=== PATIENT | male | born 1930 | race African-American/Black ===

== ENCOUNTER 2016-11-14 11:10 | Inpatient (IN) | payer MEDICARE, MEDICAID ==
[~2016-11-14] VITALS: Ht 185.4 cm; Wt 81.7 kg
[2016-11-14] VITALS (61 sets, daily range): BP systolic 61–123; BP diastolic 44–72
[~2016-11-14 11:10] MED LIST: ACETAMINOPHEN325 M3 GT; AMLODIPINE BESY10 MG GT; ASPIRIN325 MG GT; ATORVASTATIN CA40 MG GT; BACITRACIN ZIN120 GM TP; COLACE100 MG GT; EPOGEN20000 UNI1 SUBQ; FLOMAX0.4 MG GT; HEPARIN SO5000 UNIT2 SUBQ; HYDRALAZINE HCL25 M2 GT; IPRATROPIU0.2 MG/1 M HHN; LEVAQUIN500 MG ORAL; LINEZOLID600 MG PO; LISINOPRIL40 MG GT; LORAZEPAM2 MG/1 M3 IV; LOVENOX10 M4 SUBQ; METOPROLOL TART25 MG GT; MIRALAX17 G2 ORAL; PANTOPRAZOLE SO40 MG IVP; PRO-STAT LIQUID30 ML GT; PROTONIX40 M1 IVP; TEFLARO400 MG IV; VITAMIN C500 M1 GT; ZINC SULFATE220 M1 GT; ZOFRAN 4 MG4 MG/2 ML IV; ZOSYN 3.373.375 GM/1 IVPB; [UNRECOGNIZED DRUG - OTHER]
[2016-11-14] MEDS ORDERED: Succinylcholine 20mg/ml 10ml vial IV ONE (11:30)
[2016-11-14] MEDS ORDERED: Albuterol ud Inhalation HHN ONE ×2 (11:30→12:45)
[2016-11-14] MEDS ORDERED: Ipratropium 0.02% Inh Soln 2.5ml UD HHN ONE (11:30)
[2016-11-14] MEDS ORDERED: Levophed 4mg/4mL Inj IV ONE (11:32)
[2016-11-14] MEDS ORDERED: LORazepam Inj 2mg/ml 1ml ONE (11:44)
[2016-11-14] MEDS ORDERED: Midazolam for drip 50 MG in D5W 90 ML IV SCH (11:45)
[2016-11-14] MEDS ORDERED: LORazepam Inj 2mg/ml 1ml IV ONE (11:45)
[2016-11-14 12:05] LABS: MEAN CORPUSCULAR HGB CONC 28.9 G/DL (32.0-36.0); MEAN CORPUSCULAR VOLUME 83 FL (80-99); MEAN PLATELET VOLUME 6.2 FL (6.5-10.1); PLATELET COUNT 302 K/UL (150-450); RED BLOOD COUNT 3.86 M/UL (4.70-6.10); RED CELL DISTRIBUTION WIDTH 17.5 % (11.6-14.8); WHITE BLOOD COUNT 18.3 K/UL (4.8-10.8)
[2016-11-14 12:08] LABS: INR 1.2 (0.9-1.1); PROTHROMBIN TIME 12.6 SEC (9.30-11.50)
[2016-11-14 12:16] LABS: APPEARANCE,URINE TURBID; KETONES,URINE NEGATIVE (NEGATIVE); LEUKOCYTE ESTERASE ,URINE 3+ (NEGATIVE); NITRITE,URINE POSITIVE (NEGATIVE); PH,URINE 8 (4.5-8.0); PROTEIN,URINE 3+ (NEGATIVE); UROBILINOGEN,URINE NORMAL MG/DL (0.0-1.0)
[2016-11-14 12:16] LABS: ALANINE AMINOTRANSFERASE 44 U/L (3-41); ALBUMIN/GLOBULIN RATIO 0.6 (1.0-2.7); ANION GAP 15 (5-15); ASPARTATE AMINO TRANSFERASE 37 U/L (5-40); CALCIUM 8.5 mg/dL (8.6-10.2); CARBON DIOXIDE 24 mEQ/L (20-30); CHLORIDE 102 mEQ/L (98-107); CREATININE 1.9 mg/dL (0.7-1.2); HEMOLYSIS 33; LIPASE 32 U/L (< 60); SODIUM 141 mEQ/L (135-145); TOTAL PROTEIN 7.2 g/dL (6.6-8.7)
[2016-11-14 12:17] LABS: ABG ALLEN TEST POSITIVE; ABG BASE EXCESS -2.9; ABG PCO2 50.7 mmHg (35.0-45.0)
[2016-11-14 12:18] LABS: TROPONIN I < 0.30 ng/mL (<=0.30)
[2016-11-14 12:28] LABS: CKMB 2.6 ng/mL (< 6.7)
[2016-11-14 12:29] LABS: POTASSIUM 7.1 mEQ/L (3.4-4.9); REFLEX LACTIC ACID YES OR NO YES
[2016-11-14 12:30] LABS: RBC,URINE TNTC /HPF (0 - 0); WBC,URINE 30-40 /HPF (0 - 0)
[2016-11-14 12:31] LABS: BACTERIA,URINE MODERATE /HPF; SQUAMOUS EPITHELIAL CELL,UR FEW /LPF (NONE/OCC)
[2016-11-14] MEDS ORDERED: Cefepime 1gm vial ONE (12:44)
[2016-11-14] MEDS ORDERED: Azithromycin Inj IV ONE (12:44)
[2016-11-14] MEDS ORDERED: Vancomycin 1.5gm/D5W 250ml 325 ML IVPB ONE (12:45)
[2016-11-14] MEDS ORDERED: Azithromycin 500 MG in NS 275 ML IV ONE (12:45)
[2016-11-14] MEDS ORDERED: Sodium Bicarbonate 50ml Carp IV ONE (12:45)
[2016-11-14] MEDS ORDERED: Cefepime HCl 1 GM in NS 55 ML IV ONE (12:45)
[2016-11-14 13:36] LABS: ANISOCYTOSIS 1+; BAND NEUTROPHILS % (MANUAL) 12 % (0-8); BASOPHILS % (MANUAL) 0 % (0-2); EOSINOPHILS % (MANUAL) 1 % (0-3); HYPOCHROMASIA 2+; LYMPHOCYTES % (MANUAL) 4 % (20-45); NEUTROPHILS % (MANUAL) 81 % (45-75); PLATELET ESTIMATE ADEQUATE; PLATELET MORPHOLOGY NORMAL; TOTAL CELLS COUNTED 100
[2016-11-14] MEDS ORDERED: DuoNeb 0.5-3(2.5)mg/3ml neb HHN PRN ×2 (14:00→17:00)
[2016-11-14] MEDS ORDERED: LORazepam Inj 2mg/ml 1ml IV PRN (14:00)
[2016-11-14] MEDS ORDERED: Morphine Sulfate 4mg/ml Inj IVP PRN (14:00)
[2016-11-14] MEDS ORDERED: Miralax 17gm pkt ORAL PRN (14:00)
--- NOTE | 2016-11-14 14:41 | Emergency Room Report ---
History of Present Illness General Chief Complaint: Dyspnea/Respdistress Source: Patient, Medical Record Present Illness HPI Patient presents emergency department today with acute respiratory distress. Patient apparently was going to a specialist to evaluate hematuria when he was noted to be altered and hypotensive. Paramedics brought the patient here for further evaluation. On arrival patient appeared to have evidence of respiratory distress. Patient did not have a gag reflex. Oral airway was in place. Patient require emergent intubation. No further history is available other than what was available from the paramedics. Patient was nonverbal. Symptoms noted to be severe to critical.No other modifying factors. No other associated signs and symptoms. No other complaints were noted. Allergies: Coded Allergies: No Known Allergies (Verified , 01/02/09) Patient History Past Medical History: HTN, CAD, seizures Past Surgical History: CABG, other - g-tube Social History: Denies: alcohol use, drug use, smoking Reviewed Nursing Documentation: PMH: Agreed, PSxH: Agreed Nursing Documentation-PMH Past Medical History: No History, Except For Hx Cardiac Problems: Yes - Hyperlipidemia, NSTEMI, CABG (3 vessel) Hx Hypertension: Yes - long-term use of anticoagulants Hx Gastrointestinal Problems: Yes - dysphagia, G-tube, PUD, GERD Hx Neurological Problems: Yes - Generalized muscle weakness, Vertigo 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, affecting right dominant side Hx Seizures: Yes Review of Systems All Other Systems: limited - poor mental status Physical Exam Vital Signs Date Time Temp Pulse Resp B/P Pulse Ox O2 Delivery O2 Flow Rate FiO2 11/14/16 11:11 98.2 78 36 91 Room Air 11/14/16 11:20 100 11/14/16 11:23 83/55 Sp02 EP Interpretation: reviewed, normal General Appearance: severe distress, cachetic, lethargic Head: atraumatic Eyes: bilateral eye normal inspection ENT: normal pharynx, moist mucus membranes Neck: normal inspection, supple Respiratory: respiratory distress, decreased breath sounds, accessory muscle use, rales Cardiovascular #1: normal inspection, regular rate, rhythm, no edema Gastrointestinal: soft, no mass Genitourinary: normal inspection Musculoskeletal: normal inspection, back normal, normal range of motion Neurologic: alert, responsive Psychiatric: anxious Skin: normal inspection, normal color, no rash Procedures Critical Care Time Critical Care Time Patient had a critical medical condition which untreated could potentially result in life or limb threatening injury. Total critical care time excluding procedures was approximately 45 minutes. Central Line Central Line : Consent: Emergent Central Line Lumen: triple Maximal Sterile Barrier Tech: yes cap, yes mask, yes sterile gown, yes sterile gloves, yes large sterile sheet, yes hand hygiene, yes chlorhexidine prep Central Line Postion: femoral (R) Complications: none Central Line Post Position: sutured, good blood return Attempts: One Patient Tolerated: Well Complications: None Intubation Intubation : Consent: Emergent Intubation Method: orotracheal Tube Size (cm): 8.0 Medications: Succinylcholine Breath Sounds after Intubation: equal Intubation Complications: no complications Post Intubation Xray: Yes Attempts: One Patient Tolerated: Well Complications: None Medical Decision Making Diagnostic Impression: Primary Impression: Respiratory distress Additional Impressions: Hyperkalemia Renal failure Qualified Codes: N17.9 - Acute kidney failure, unspecified Septic shock ER Course Patient presents emergency department today complaining of acute onset of severe respiratory distress and shortness of breath. Differential diagnoses include acute Lexxel abnormality, acute infectious process, sepsis, septic shock , acute coronary syndrome just to name a few.Given the severity of the patient' s presentation I felt this is a highly complex patient. This patient required extensive workup. Patient require emergent admission and control the airway. After which patient received a central line to administer fluids. Patient was given 30 mL per kilogram bolus. Patient's lactic acid level was elevated. Blood cultures obtained and patient was given antibiotics. Patient unfortunately was hypotensive and started on Levophed. A she did improve with fluids and antibiotics as well as vasopressors. Case was discussed with Dr. Luca Guerrier for admission. Labs Test 11/14/16 11:20 11/14/16 11:27 11/14/16 11:40 Urine Color Red Urine Appearance Turbid Urine pH 8 (4.5-8.0) Urine Specific [place] 1.015 (1.005-1.035) Urine Protein 3+ (NEGATIVE) Urine Glucose (UA) Negative (NEGATIVE) Urine Ketones Negative (NEGATIVE) Urine Occult Blood 5+ (NEGATIVE) Urine Nitrite Positive (NEGATIVE) Urine Bilirubin Negative (NEGATIVE) Urine Urobilinogen Normal MG/DL (0.0-1.0) Urine Leukocyte Esterase 3+ (NEGATIVE) Urine RBC Tntc /HPF (0 - 0) Urine WBC 30-40 /HPF (0 - 0) Urine Squamous Epithelial Cells Few /LPF (NONE/OCC) Urine Bacteria Moderate /HPF (NONE) Arterial Blood pH 7.290 (7.350-7.450) Arterial Blood Partial Pressure CO2 50.7 mmHg (35.0-45.0) Arterial Blood Partial Pressure O2 211.0 mmHg (75.0-100.0) Arterial Blood HCO3 23.9 mmol/L (22.0-26.0) Arterial Blood Oxygen Saturation 99.3 % (92.0-98.0) Arterial Blood Base Excess -2.9 Librado Test Positive White Blood Count 18.3 K/UL (4.8-10.8) Red Blood Count 3.86 M/UL (4.70-6.10) Hemoglobin 9.3 G/DL (14.2-18.0) Hematocrit 32.1 % (42.0-52.0) Mean Corpuscular Volume 83 FL (80-99) Mean Corpuscular Hemoglobin 24.0 PG (27.0-31.0) Mean Corpuscular Hemoglobin Concent 28.9 G/DL (32.0-36.0) Red Cell Distribution Width 17.5 % (11.6-14.8) Platelet Count 302 K/UL (150-450) Mean Platelet Volume 6.2 FL (6.5-10.1) Neutrophils (%) (Auto) % (45.0-75.0) Lymphocytes (%) (Auto) % (20.0-45.0) Monocytes (%) (Auto) % (1.0-10.0) Eosinophils (%) (Auto) % (0.0-3.0) Basophils (%) (Auto) % (0.0-2.0) Differential Total Cells Counted 100 Neutrophils % (Manual) 81 % (45-75) Lymphocytes % (Manual) 4 % (20-45) Monocytes % (Manual) 2 % (1-10) Eosinophils % (Manual) 1 % (0-3) Basophils % (Manual) 0 % (0-2) Band Neutrophils 12 % (0-8) Platelet Estimate Adequate Platelet Morphology Normal Hypochromasia 2+ Anisocytosis 1+ Prothrombin Time 12.6 SEC (9.30-11.50) Prothromb Time International Ratio 1.2 (0.9-1.1) Activated Partial Thromboplast Time 29 SEC (23-33) Sodium Level 141 mEQ/L (135-145) Potassium Level 7.1 mEQ/L (3.4-4.9) Chloride Level 102 mEQ/L (98-107) Carbon Dioxide Level 24 mEQ/L (20-30) Anion Gap 15 (5-15) Blood Urea Nitrogen 50 mg/dL (7-23) Creatinine 1.9 mg/dL (0.7-1.2) Estimat Glomerular Filtration Rate mL/min (>60) Glucose Level 98 mg/dL (74-106) Lactic Acid Level 4.90 mmol/L (0.66-2.22) Calcium Level 8.5 mg/dL (8.6-10.2) Total Bilirubin 0.4 mg/dL (0.0-1.2) Aspartate Amino Transf (AST/SGOT) 37 U/L (5-40) Alanine Aminotransferase (ALT/SGPT) 44 U/L (3-41) Alkaline Phosphatase 80 U/L (40-129) Total Creatine Kinase 54 U/L (38-174) Creatine Kinase MB 2.6 ng/mL (< 6.7) Creatine Kinase MB Relative Index 4.8 Troponin I < 0.30 ng/mL (<=0.30) Pro-B-Type Natriuretic Peptide 3738 pg/mL (0-450) Total Protein 7.2 g/dL (6.6-8.7) Albumin 2.7 g/dL (3.5-5.2) Globulin 4.5 g/dL Albumin/Globulin Ratio 0.6 (1.0-2.7) Lipase 32 U/L (< 60) EKG Diagnostic Results Rate: normal Rhythm: NSR ST Segments: other - left bundle branch block Rhythm Strip Diag. Results Rate: 73 Rhythm: NSR, no PVC's, no ectopy Chest X-Ray Diagnostic Results Chest X-Ray Diagnostic Results : Chest X-Ray Ordered: Yes # of Views/Limited/Complete: 1 View EP Interpretation: Yes Interpretation: no consolidation, no effusion, no pneumothorax Indication: Shortness of Breath Impression: Other - Intubated, sternal wire Last Vital Signs Date Time Temp Pulse Resp B/P Pulse Ox O2 Delivery O2 Flow Rate FiO2 11/14/16 13:44 65 38 84/48 100 Mechanical Ventilator 100 11/14/16 11:11 98.2 Status: improved Disposition: ADMITTED INPATIENT Condition: Critical Referrals: STACI CHACON (PCP) JONNY MCCALL M.D. Nov 14, 2016 14:41
--- NOTE | 2016-11-14 15:47 | Diagnostic Imaging Report ---
Indication: COUGH, shortness of breath, post intubation Technique: One view of the chest Comparison: 09/03/2016 Findings: Atelectatic changes versus scarring are seen in both lung bases. The heart size is normal. 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 Endotracheal tube has been placed, tip in good position approximately 6 cm above the selin. 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 Bilateral basilar atelectasis versus scar. No other acute process Post surgical changes, as described
--- NOTE | 2016-11-14 15:50 | Infectious Diseases Prog Note ---
Assessment/Plan Problems: (1) Septic shock Assessment & Plan: complicated with respiratory failure, continue wide spectrum antibiotics, monitor blood and sputum culture (2) Respiratory distress Assessment & Plan: due to the above, S/P intubation, continue mechanical ventilation, monitor ABG, titrate oxygen as needed (3) UTI (urinary tract infection) Assessment & Plan: most likely the source of his sepsis, continue antibiotics, send urine culture, recommend US of the kidney (4) Hyperkalemia Assessment & Plan: suspect due to renal failure, recommend renal consult, for further management (5) Renal failure Assessment & Plan: continue hydration, avoid nephrotoxic meds Subjective Allergies: Coded Allergies: No Known Allergies (Verified , 01/02/09) Objective Vital Signs Last 24 Hour Vital Signs Date Time Temp Pulse Resp B/P Pulse Ox O2 Delivery O2 Flow Rate FiO2 11/14/16 15:06 59 35 100 11/14/16 13:44 65 38 84/48 100 Mechanical Ventilator 100 11/14/16 12:06 36 11/14/16 11:57 80/51 11/14/16 11:52 61/49 11/14/16 11:47 86/59 11/14/16 11:42 92/51 11/14/16 11:35 73 30 Mechanical Ventilator 100 11/14/16 11:35 73 30 100 11/14/16 11:33 85/47 11/14/16 11:23 72 22 83/55 98 Ambu-Bag 11/14/16 11:20 78 36 Room Air 11/14/16 11:20 100 11/14/16 11:11 98.2 78 36 91 Room Air Height (Feet): 6 Height (Inches): 1.00 Weight (Pounds): 189 Laboratory Tests Test 11/14/16 11:20 11/14/16 11:27 11/14/16 11:40 11/14/16 14:06 Urine Color Red Urine Appearance Turbid Urine pH 8 (4.5-8.0) Urine Specific [place] 1.015 (1.005-1.035) Urine Protein 3+ (NEGATIVE) H Urine Glucose (UA) Negative (NEGATIVE) Urine Ketones Negative (NEGATIVE) Urine Occult Blood 5+ (NEGATIVE) H Urine Nitrite Positive (NEGATIVE) H Urine Bilirubin Negative (NEGATIVE) Urine Urobilinogen Normal MG/DL (0.0-1.0) Urine Leukocyte Esterase 3+ (NEGATIVE) H Urine RBC Tntc /HPF (0 - 0) H Urine WBC 30-40 /HPF (0 - 0) H Urine Squamous Epithelial Cells Few /LPF (NONE/OCC) Urine Bacteria Moderate /HPF (NONE) H Arterial Blood pH 7.290 (7.350-7.450) Arterial Blood Partial Pressure CO2 50.7 mmHg (35.0-45.0) H Arterial Blood Partial Pressure O2 211.0 mmHg (75.0-100.0) H Arterial Blood HCO3 23.9 mmol/L (22.0-26.0) Arterial Blood Oxygen Saturation 99.3 % (92.0-98.0) H Arterial Blood Base Excess -2.9 Librado Test Positive White Blood Count 18.3 K/UL (4.8-10.8) H Red Blood Count 3.86 M/UL (4.70-6.10) L Hemoglobin 9.3 G/DL (14.2-18.0) L Hematocrit 32.1 % (42.0-52.0) L Mean Corpuscular Volume 83 FL (80-99) Mean Corpuscular Hemoglobin 24.0 PG (27.0-31.0) L Mean Corpuscular Hemoglobin Concent 28.9 G/DL (32.0-36.0) L Red Cell Distribution Width 17.5 % (11.6-14.8) H Platelet Count 302 K/UL (150-450) Mean Platelet Volume 6.2 FL (6.5-10.1) L Neutrophils (%) (Auto) % (45.0-75.0) Lymphocytes (%) (Auto) % (20.0-45.0) Monocytes (%) (Auto) % (1.0-10.0) Eosinophils (%) (Auto) % (0.0-3.0) Basophils (%) (Auto) % (0.0-2.0) Differential Total Cells Counted 100 Neutrophils % (Manual) 81 % (45-75) H Lymphocytes % (Manual) 4 % (20-45) L Monocytes % (Manual) 2 % (1-10) Eosinophils % (Manual) 1 % (0-3) Basophils % (Manual) 0 % (0-2) Band Neutrophils 12 % (0-8) H Platelet Estimate Adequate Platelet Morphology Normal Hypochromasia 2+ Anisocytosis 1+ Prothrombin Time 12.6 SEC (9.30-11.50) H Prothromb Time International Ratio 1.2 (0.9-1.1) H Activated Partial Thromboplast Time 29 SEC (23-33) Sodium Level 141 mEQ/L (135-145) Potassium Level 7.1 mEQ/L (3.4-4.9) *H Chloride Level 102 mEQ/L (98-107) Carbon Dioxide Level 24 mEQ/L (20-30) Anion Gap 15 (5-15) Blood Urea Nitrogen 50 mg/dL (7-23) H Creatinine 1.9 mg/dL (0.7-1.2) H Estimat Glomerular Filtration Rate mL/min (>60) Glucose Level 98 mg/dL (74-106) Lactic Acid Level 4.90 mmol/L (0.66-2.22) H 4.80 mmol/L (0.66-2.22) H Calcium Level 8.5 mg/dL (8.6-10.2) L Total Bilirubin 0.4 mg/dL (0.0-1.2) Aspartate Amino Transf (AST/SGOT) 37 U/L (5-40) Alanine Aminotransferase (ALT/SGPT) 44 U/L (3-41) H Alkaline Phosphatase 80 U/L (40-129) Total Creatine Kinase 54 U/L (38-174) Creatine Kinase MB 2.6 ng/mL (< 6.7) Creatine Kinase MB Relative Index 4.8 Troponin I < 0.30 ng/mL (<=0.30) Pro-B-Type Natriuretic Peptide 3738 pg/mL (0-450) H Total Protein 7.2 g/dL (6.6-8.7) Albumin 2.7 g/dL (3.5-5.2) L Globulin 4.5 g/dL Albumin/Globulin Ratio 0.6 (1.0-2.7) L Lipase 32 U/L (< 60) Current Medications Medications (Trade) Dose Ordered Sig/Keira Route PRN Reason Start Time Stop Time Status Last Admin Dose Admin Acetaminophen (Tylenol) 650 mg Q4H PRN ORAL fever 11/14/16 18:00 12/14/16 17:59 Albuterol/ Ipratropium (DuoNeb 0.5-3(2.5)mg/3ml) 3 ml EVERY 4 HOURS PRN HHN Shortness of Breath 11/14/16 17:00 11/19/16 16:59 Amikacin Sulfate / Sodium Chloride 110 ml @ 110 mls/hr Q24H IV 11/14/16 23:45 11/21/16 23:44 UNV Ertapenem 1 gm/ Sodium Chloride 55 ml @ 110 mls/hr Q24H IV 11/14/16 23:45 11/19/16 23:44 UNV Heparin Sodium (Porcine) (Heparin 5000 units/ml) 5,000 units EVERY 12 HOURS SUBQ 11/14/16 21:00 12/14/16 20:59 Lorazepam (Ativan 2mg/ml 1ml) 2 mg EVERY 2 HOURS PRN IV For Anxiety 11/14/16 16:00 11/21/16 15:59 Morphine Sulfate (Morphine Sulfate) 4 mg EVERY 4 HOURS PRN IVP Severe Pain (Pain Scale 7-10) 11/14/16 17:00 11/21/16 16:59 Norepinephrine Bitartrate 4 mg/ Dextrose 254 ml @ 0 mls/hr Q24H IV 11/15/16 14:00 12/15/16 13:59 UNV Norepinephrine Bitartrate 8 mg/ Sodium Chloride 250 ml @ 0 mls/hr Q24H IV 11/15/16 11:30 12/15/16 11:29 UNV Ondansetron HCl (Zofran) 4 mg Q6H PRN IVP Nausea & Vomiting 11/14/16 20:00 12/14/16 19:59 UNV Pantoprazole (Protonix) 40 mg DAILY IVP 11/15/16 09:00 12/15/16 08:59 UNV Polyethylene Glycol (Miralax) 17 gm DAILYPRN PRN ORAL Constipation 11/15/16 14:00 12/15/16 13:59 Sodium Chloride 1,000 ml @ 100 mls/hr Q10H IVLG 11/14/16 23:39 12/14/16 23:38 UNV Vancomycin HCl/ Dextrose (Vancomycin/D5W) 275 ml @ 183.3 mls/ hr Q24H IV 11/14/16 23:45 11/19/16 23:44 UNV Julianna Trejo M.D. Nov 14, 2016 15:50
--- NOTE | 2016-11-14 17:46 | History and Physical Report ---
DATE OF ADMISSION: 11/14/2016 TIME SEEN: 3 p.m. CONSULTANTS: 1. Dhiraj Holly M.D. 2. Dr. Pretty. 3. Kuldeep Martin M.D. CHIEF COMPLAINT: Respiratory failure. BRIEF HISTORY: This is an 86-year-old male from [facility], presented with increased weakness, coughing, and shortness of breath, went into respiratory failure, currently intubated and lethargic in the ER. PAST MEDICAL HISTORY: Hypertension and PAN. PAST SURGICAL HISTORY: Heart valve surgery. MEDICATIONS: Includes Protonix, ertapenem, amikacin, vancomycin, heparin, DuoNeb, morphine, Tylenol, MiraLax, Zofran, and Ativan. ALLERGIES: Denies. SOCIAL HISTORY: No smoking. No alcohol. No intravenous drug abuse. FAMILY HISTORY: Noncontributory. REVIEW OF SYSTEMS: Unavailable. PHYSICAL EXAMINATION: GENERAL: Lethargic in bed, intubated, and sedated in the ER. VITAL SIGNS: Show temperature is not given, pulse 65, respirations 38, and blood pressure and 84/48. CARDIOVASCULAR: No murmur. LUNGS: Poor air exchange. ABDOMEN: Positive bowel sounds. Soft, nontender, and nondistended. EXTREMITIES: No cyanosis, clubbing, or edema. NEUROLOGIC: The patient is flaccid in bed, not responding to questions. LABORATORY DATA: Lab exam show white count 18.3, hemoglobin and hematocrit are 9.3 and 32, and platelets 302,000. Potassium is 7.1. BUN and creatinine are 50 and 1.9. INR is 1.2 and PTT is 29. Urinalysis show 3+ leukocyte esterase. ASSESSMENT: 1. Respiratory failure. 2. Urinary tract infection. 3. Sepsis. 4. Shock. 5. Hypertension. 6. Acute kidney injury. 7. Anemia. 8. Hyperkalemia. PLAN: 1. Continue premedications. 2. . 3. Antibiotics per Infectious Disease. 4. Blood pressure control. 5. CBC and BMP in the morning. 6. Dr. Holly, Dr. Pretty, Dr. Martin, and Dr. Allen to consult. 7. We will continue to follow this patient medically. Luca Guerrier D.O. DR: NEGRITO JOB#: [id number] CC:
[2016-11-14 19:49] LABS: CREATININE, RANDOM URINE 17.3 mg/dL
[2016-11-14] MEDS ORDERED: Ertapenem 1 GM in NS 55 ML IV SCH ×2 (20:00→23:45)
--- NOTE | 2016-11-14 20:02 | Consultation ---
DATE OF CONSULTATION: INFECTIOUS DISEASE CONSULTATION CONSULTING PHYSICIAN: Julianna Trejo M.D. REQUESTING PHYSICIAN: Luca Guerrier D.O. REASON FOR CONSULTATION: Septic shock with pneumonia complicated with respiratory failure. Recommendation for antibiotics treatment. HISTORY OF PRESENT ILLNESS: The patient is an 86-year-old male with a history of coronary artery disease, status post coronary artery bypass graft, hypertension, and seizure, was brought in to [facility] emergency room with acute respiratory failure. The patient was going to his specialist to be evaluated for hematuria, which he was noted to have. The patient seems to be altered and hypotensive. Paramedics were brought in to evaluate the patient at his specialist's office. Upon arrival, the patient was found to be in respiratory distress with no gag reflex. The patient was intubated on the scene emergently and was brought in to [facility] for further evaluation and management. The patient was hypotensive in the emergency room with blood pressure of 83/55 and saturating 91% on 100% FiO2. Blood culture was obtained. He was started on vancomycin, amikacin, and ertapenem by the admitting physician and I was consulted by the primary provider for antibiotics treatment and further management. As of note, the patient is intubated on mechanical ventilation and cannot provide any history. History was mainly obtained from the medical record. PAST MEDICAL HISTORY: Significant for hypertension, coronary artery disease, seizures, and status post CABG. PAST SURGICAL HISTORY: He had bypass surgery of his heart and G-tube placement. MEDICATIONS: He is currently on norepinephrine for blood pressure support, amikacin, ertapenem, and vancomycin. For the rest of his medications, please refer to MAR ALLERGIES: There is no known drug allergy documented in the medical record. SOCIAL HISTORY: The patient had no recent drugs, tobacco, or alcohol abuse. Lives at home. FAMILY HISTORY: Unable to obtain. REVIEW OF SYSTEMS: Unable to obtain at this point. The patient is intubated. PHYSICAL EXAMINATION: VITAL SIGNS: Temperature 98.2 degrees, pulse 95, respirations 35, blood pressure 84/48, and pulse oximetry 100% on FiO2 of 100 on mechanical ventilation. GENERAL: An elderly male, intubated, on mechanical ventilation, unresponsive, and not in distress. HEENT: Normocephalic and atraumatic. Pale sclera. Unable to assess oral mucosa. NECK: Supple. No lymphadenopathy. CARDIOVASCULAR: Regular rate and rhythm. No murmur or gallop. LUNGS: He had diminished breathing sounds at the bases. No wheezing or rhonchi. ABDOMEN: Soft, nontender, and nondistended. Positive bowel sounds. No hepatosplenomegaly or ascites. EXTREMITY: No edema or cyanosis. SKIN: No rash or hives. LABORATORY DATA: Labs showed white count of 18.3 and hemoglobin of 9.3 with platelet of 302,000. BUN of 50, creatinine of 1.9, potassium of 7.1, and sodium of 141. ALT of 44. Urinalysis showed positive nitrate, +3 leukocyte esterase, red blood cells too numerous to count, WBCs 30 to 40, and urine bacteria moderate. IMAGING DATA: Chest x-ray did not show any acute infiltration or effusion. ASSESSMENT AND RECOMMENDATIONS: 1. Septic shock complicated with respiratory failure. Continue wide-spectrum antibiotics treatment. Source suspect urine infection. Monitor blood and urine culture. 2. Urinary tract infection, possibly the source of his sepsis. Continue current antibiotics management. Monitor urine culture. Recommend renal ultrasound to rule out mass or obstruction. 3. Acute respiratory failure due to septic shock. On mechanical ventilation status post intubation. Monitor ABG. Titrate oxygen as needed. 4. Acute renal failure due to septic shock. Continue hydration. Avoid nephrotoxic medicine. 5. Hyperkalemia, suspect due to kidney failure. Recommend Nephrology consult for further management and evaluation. Julianna Trejo M.D. DR: IVON JOB#: [id number] CC:
[2016-11-14] MEDS: Heparin 5000 units/ml inj SUBQ SCH (20:44)
[2016-11-14] MEDS: LORazepam Inj 2mg/ml 1ml IV PRN (20:57)
[2016-11-14] MEDS ORDERED: Heparin 5000 units/ml inj SUBQ SCH (21:00)
--- NOTE | 2016-11-14 23:16 | Consultation ---
DATE OF CONSULTATION: 11/14/2016 CARDIOLOGY CONSULTATION CONSULTING PHYSICIAN: Kuldeep Martin M.D. REFERRING PHYSICIAN: Luca Guerrier D.O. REASON FOR CONSULTATION: Management of the patient with respiratory distress, hypoxia, and hypertension in the intensive care unit of [facility]. HISTORY OF PRESENT ILLNESS: The patient is a very unfortunate 86-year-old gentleman, who presents to the hospital, who was brought in by paramedics to this hospital for evaluation of respiratory distress. The patient was going to a specialist to evaluate hematuria, was noted to be short of breath. He became altered. Blood pressure was low, paramedics were called and brought the patient to the emergency department. The patient upon initial evaluation in the emergency department had a blood pressure of 83/55 mmHg, altered level of consciousness, and heart rate of 78, was in intubated in the emergency department, was sent to the intensive care unit of [facility] for further evaluation and management. Cardiology consultation was further requested Dr. Guerrier for management of this condition from the cardiac standpoint. The patient's cardiac history is significant for history of three-vessel CABG as well as non-ST elevation myocardial infarction as well as possible aortic valve replacement. The patient is currently intubated and is not providing any history. PAST MEDICAL HISTORY: 1. Coronary artery disease, status post three-vessel coronary artery bypass graft surgery. 2. History of seizure disorder. 3. History of possible aortic valve replacement. 4. History of dysphagia, status post G-tube. 5. History of hyperlipidemia. 6. History of hypertension. 7. History of peptic ulcer disease. 8. History of gastroesophageal reflux disease. 9. History of vertigo. 10. History of muscle weakness. 11. History of CVA. 12. History of seizure disorder. PAST SURGICAL HISTORY: Including bypass graft surgery and possible bioprosthetic aortic valve replacement. MEDICATIONS: The list of medications from the nursing facility acetaminophen 650 mg G-tube q.4 hours, Pro-Stat 30 mL G-tube daily, amlodipine 10 mg G-tube daily, vitamins C 500 mg G-tube daily, aspirin 325 mg G-tube daily, atorvastatin 40 mg G-tube nightly, bacitracin one application three times a day, Colace 100 mg G-tube daily, Lovenox 40 mg subcutaneous daily, Epogen 7000 units subcutaneous three times weekly, heparin sulfate 5000 subcutaneous q.12 h., hydralazine 25 mg G-tube q.8 h., Atrovent 0.5 mg q.4 hours p.r.n. shortness of breath, lisinopril 5 mg G-tube daily, lorazepam 5 mg IV q.4 h. anxiety, metoprolol 25 mg G-tube q.12 hours, Zofran 4 mg intravenous q.6 hours p.r.n. nausea and vomiting, Protonix 4 mg intravenous push q.12 hours, MiraLAX 17 gram daily p.r.n. constipation, Flomax 0.8 mg G-tube daily, and zinc sulfate 220 mg G-tube daily. ALLERGIES: No known drug allergies. SOCIAL HISTORY: There is no report of alcohol, tobacco or illicit drug use. REVIEW OF SYSTEMS: A 12-system review cannot be done due to the patient is being intubated and sedated. PHYSICAL EXAMINATION: VITAL SIGNS: Blood pressure at the time of arrival to the emergency department 83/55, pulse of 78, respirations 36, temperature 98.2 degrees Fahrenheit, and O2 saturation 91% on room air. Currently blood pressure in the intensive care unit of [facility] was 99/58, heart rate of 68, and saturation of 100%. The patient is intubated and sedated. GENERAL: The patient is a very unfortunate gentleman, in no apparent respiratory distress, intubated, and sedated. HEENT: Atraumatic and normocephalic. Anicteric. Pupils are equal, round, reactive to light, and accommodation. NECK: JVP cannot be assessed due to positive inspiratory pressure. CARDIOVASCULAR: Normal S1 and S2. Regular rate and rhythm. No murmurs, gallops, or rubs. PMI is at fourth intercostal space at the midclavicular line. LUNGS: Clear to auscultation bilaterally. ABDOMEN: Soft, nontender, and nondistended. No hepatosplenomegaly. Positive G-tube in place. EXTREMITIES: No evidence of edema, clubbing, or cyanosis. LABORATORY AND DIAGNOSTIC DATA: INR is 1.2. Sodium 141, potassium is 7.1, chloride 102, bicarbonate 24, BUN of 15, creatinine 1.9, and glucose 98. Calcium is 8.5. Troponin I is less than 0.3. ProBNP was 3738. ABG shows pH of 7.29, pCO2 of 50.7, pO2 of 311, bicarbonate 33.9, and O2 saturating 99.3. WBC 18.3, hemoglobin 9.3, hematocrit 32.1, platelet count is 302,000. INR is 1.2. Chest x-ray showed sternal wires, evidence of prosthetic aortic valve. Bilateral basilar atelectasis. A 12-lead electrocardiogram shows sinus rhythm at a rate of 73 with left bundle-branch block and left axis deviation. ASSESSMENT AND PLAN: The patient is a very unfortunate 86-year-old gentleman seen in Cardiology consultation at request of Dr. Guerrier. 1. Possible septic shock evidence of bandemia, leukocytosis, and altered mental status. 2. The patient will require hydration. If after 2 liters of normal saline, the systolic blood pressure remains to be below 90 mmHg, we would like to start the patient on Levophed drip. 3. We will keep maintain mean arterial pressure of above 65 mmHg. 4. Respiratory failure most likely pulmonary origin. The evaluation of chest x-ray does not show any evidence of pulmonary edema. We would like to obtain 2D echocardiography to assess left ventricular systolic and diastolic function. Further recommendation will be based on results of this study. 5. Status post bioprosthetic aortic valve replacement. 6. Left bundle-branch block. 7. History of coronary artery disease, status post three-vessel coronary artery bypass graft surgery. The detail of which is unknown. The amount of time spent in the evaluation of the patient in the intensive care unit of [facility], I discussing the plan of care with ancillary service and primary care physician, and obtaining the old records was 45 minutes. I would like to thank, Dr. Guerrier, for allowing me to participate in the care of this patient. Kuldeep Martin M.D. DR: RADHA JOB#: [id number] CC:
[2016-11-14] MEDS ORDERED: Etomidate 40mg/20ml Inj IV ONE (23:31)
[2016-11-14] MEDS ORDERED: Succinylcholine 20mg/ml 10ml vial ONE (23:33)
[2016-11-14] MEDS ORDERED: Amikacin 0 MG in NS 110 ML IV SCH ×4 (23:45)
[2016-11-14] MEDS ORDERED: Vancomycin 1 GM in D5W 275 ML IV SCH (23:45)
--- NOTE | 2016-11-14 23:46 | Pulmonolgy Critical Care Note ---
Critical Care - Asmt/Plan Problems: (1) Respiratory distress (2) Acute encephalopathy (3) HCAP (healthcare-associated pneumonia) (4) Sepsis (5) Anemia (6) Feeding by G-tube Respiratory: monitor respiratory rate, adjust FIO2, CXR Cardiac: continue to monitor HR/BP Renal: check electrolytes Infectious Disease: check cultures Gastrointestinal: continue feedings/current rate, hold feedings Endocrine: monitor blood sugar, check TSH Hematologic: monitor H/H Neurologic: PRN Ativan, PRN Morphine Affect: PRN ativan Prophylaxis: Protonix, Heparin Notes Reviewed: radiopharmacist, cardio, renal Discussed with: nurses, consultants, case management rntraffic i manager - Objective Last 24 Hour Vital Signs Date Time Temp Pulse Resp B/P Pulse Ox O2 Delivery O2 Flow Rate FiO2 11/14/16 23:22 82 34 60 11/14/16 22:00 75 31 110/62 99 Mechanical Ventilator 100 11/14/16 21:30 70 29 106/72 99 Mechanical Ventilator 100 11/14/16 21:15 65 31 60 11/14/16 21:00 66 28 92/52 100 Mechanical Ventilator 100 11/14/16 20:30 68 32 97/59 100 Mechanical Ventilator 100 11/14/16 20:00 68 32 97/59 100 Mechanical Ventilator 100 11/14/16 20:00 100 11/14/16 20:00 66 11/14/16 19:30 98.0 68 30 99/58 100 Mechanical Ventilator 100 11/14/16 19:02 63 35 100 11/14/16 19:00 60 20 118/66 100 Mechanical Ventilator 100 11/14/16 18:30 62 35 113/62 100 Mechanical Ventilator 100 11/14/16 18:15 62 32 102/57 100 Mechanical Ventilator 100 11/14/16 18:00 63 32 105/60 100 Mechanical Ventilator 100 11/14/16 17:45 61 32 102/57 100 Mechanical Ventilator 100 11/14/16 17:30 60 32 100/57 100 Mechanical Ventilator 100 11/14/16 17:15 62 32 105/54 100 Mechanical Ventilator 100 11/14/16 17:00 62 32 102/57 100 Mechanical Ventilator 100 11/14/16 17:00 92/50 11/14/16 16:52 58 36 100 11/14/16 16:45 57 32 92/50 100 Mechanical Ventilator 100 11/14/16 16:30 58 33 92/54 100 Mechanical Ventilator 100 11/14/16 16:15 57 38 85/50 100 Mechanical Ventilator 100 11/14/16 16:15 57 34 82/58 100 Mechanical Ventilator 100 11/14/16 16:00 57 35 84/52 100 Mechanical Ventilator 100 11/14/16 16:00 57 11/14/16 16:00 100 11/14/16 15:45 57 32 85/50 99 Mechanical Ventilator 100 11/14/16 15:30 57 35 82/52 99 Mechanical Ventilator 100 11/14/16 15:15 58 35 81/50 99 Mechanical Ventilator 100 11/14/16 15:06 59 35 100 11/14/16 15:00 97.7 58 35 82/60 100 Mechanical Ventilator 100 11/14/16 14:45 60 27 79/52 100 Mechanical Ventilator 100 11/14/16 14:33 35 11/14/16 14:33 78/52 11/14/16 14:32 78/52 11/14/16 14:27 60 35 78/52 100 Mechanical Ventilator 100 11/14/16 14:27 82/47 11/14/16 14:22 77/54 11/14/16 14:22 61 37 82/47 100 Mechanical Ventilator 100 11/14/16 14:21 36 11/14/16 14:17 83/49 11/14/16 14:17 61 36 77/54 100 Mechanical Ventilator 100 11/14/16 14:12 79/50 11/14/16 14:12 62 35 83/49 100 Mechanical Ventilator 100 11/14/16 14:07 79/50 11/14/16 14:07 62 35 79/50 100 Mechanical Ventilator 100 11/14/16 14:06 35 11/14/16 14:02 64 35 74/49 100 Mechanical Ventilator 100 11/14/16 14:02 74/49 11/14/16 13:57 64 35 80/49 100 Mechanical Ventilator 100 11/14/16 13:57 80/49 11/14/16 13:52 74/54 11/14/16 13:52 64 37 74/54 100 Mechanical Ventilator 100 11/14/16 13:51 38 11/14/16 13:47 64 38 85/48 100 Mechanical Ventilator 100 11/14/16 13:47 85/48 11/14/16 13:44 65 38 84/48 100 Mechanical Ventilator 100 11/14/16 13:42 81/46 11/14/16 13:37 65 35 84/48 100 Mechanical Ventilator 100 11/14/16 13:37 84/48 11/14/16 13:36 32 11/14/16 13:32 65 32 87/59 100 Mechanical Ventilator 100 11/14/16 13:32 87/59 11/14/16 13:30 65 34 100 11/14/16 13:27 65 32 67/48 100 Mechanical Ventilator 100 11/14/16 13:27 67/48 11/14/16 13:22 87/50 11/14/16 13:22 65 32 87/50 100 Mechanical Ventilator 100 11/14/16 13:21 31 11/14/16 13:17 92/47 11/14/16 13:17 65 31 92/47 100 Mechanical Ventilator 100 11/14/16 13:12 103/61 11/14/16 13:12 66 26 103/61 100 Mechanical Ventilator 100 11/14/16 13:07 95/52 11/14/16 13:07 66 27 95/52 100 Mechanical Ventilator 100 11/14/16 13:06 28 11/14/16 13:02 66 28 109/60 100 Mechanical Ventilator 100 11/14/16 13:02 109/60 11/14/16 12:57 103/57 11/14/16 12:57 65 27 103/57 100 Mechanical Ventilator 100 11/14/16 12:52 65 26 102/50 99 Mechanical Ventilator 100 11/14/16 12:52 102/50 11/14/16 12:51 28 11/14/16 12:47 65 28 91/47 97 Mechanical Ventilator 100 11/14/16 12:47 91/47 11/14/16 12:42 88/59 11/14/16 12:42 65 29 88/59 97 Mechanical Ventilator 100 11/14/16 12:37 65 31 81/47 100 Mechanical Ventilator 100 11/14/16 12:37 81/47 11/14/16 12:36 25 11/14/16 12:32 67 25 87/44 100 Mechanical Ventilator 100 11/14/16 12:32 87/44 11/14/16 12:27 66 29 82/53 97 Mechanical Ventilator 100 11/14/16 12:27 82/53 11/14/16 12:22 66 34 83/57 100 Mechanical Ventilator 100 11/14/16 12:22 83/57 11/14/16 12:21 23 11/14/16 12:17 68 23 83/57 97 Mechanical Ventilator 100 11/14/16 12:17 83/57 11/14/16 12:15 98.2 72 36 80/51 98 Mechanical Ventilator 100 11/14/16 12:12 67 38 70/54 100 Mechanical Ventilator 100 11/14/16 12:12 70/54 11/14/16 12:07 68 36 93/50 100 Mechanical Ventilator 100 11/14/16 12:07 93/50 11/14/16 12:06 36 11/14/16 12:02 67 33 94/58 100 Mechanical Ventilator 100 11/14/16 12:02 94/58 11/14/16 11:57 80/51 11/14/16 11:57 68 35 80/51 100 Mechanical Ventilator 100 11/14/16 11:52 69 37 61/49 100 Mechanical Ventilator 100 11/14/16 11:52 61/49 11/14/16 11:47 70 38 86/59 100 Mechanical Ventilator 100 11/14/16 11:47 86/59 11/14/16 11:42 72 29 92/51 100 Mechanical Ventilator 100 11/14/16 11:42 92/51 11/14/16 11:35 73 30 Mechanical Ventilator 100 11/14/16 11:35 73 30 100 11/14/16 11:33 85/47 11/14/16 11:23 72 22 83/55 98 Ambu-Bag 11/14/16 11:20 78 36 Room Air 11/14/16 11:20 100 11/14/16 11:11 98.2 78 36 91 Room Air Status: sedated Condition: critical HEENT: atraumatic, normocephalic Lungs: clear Heart: HR/BP stable, HR/BP unstable Abdomen: soft, non-tender Extremities: no C/C/E, edema Decubiti: location Critical Care - Subjective ROS Limited/Unobtainable: Yes ICU Day: 1 Intubation Day: 1 Interval Events: Patient presents emergency department today with acute respiratory distress, he was noted to be altered and hypotensive. On arrival patient appeared to have evidence of respiratory distress. Patient did not have a gag reflex. Oral airway was in place. Patient require emergent intubation. Pt was transferred to ICU for further treatment. EKG Rhythm: Sinus Rhythm FI02: 60 Vent Support Breath Rate: 18 Vent Support Mode: AC Vent Tidal Volume: 500 Sputum Amount: Small PEEP: 0.0 PIP: 33 CXR: ET in good position ET-Tube: 8.0 ET Position: 24 MARY CABELLO Nov 14, 2016 23:46
[2016-11-15] VITALS (31 sets, daily range): BP systolic 91–131; BP diastolic 55–70
[2016-11-15 05:20] LABS: MEAN CORPUSCULAR HEMOGLOBIN 24.9 PG (27.0-31.0); MEAN CORPUSCULAR HGB CONC 30.3 G/DL (32.0-36.0); MEAN CORPUSCULAR VOLUME 82 FL (80-99); MEAN PLATELET VOLUME 6.9 FL (6.5-10.1); PLATELET COUNT 277 K/UL (150-450); RED BLOOD COUNT 3.59 M/UL (4.70-6.10); RED CELL DISTRIBUTION WIDTH 17.6 % (11.6-14.8)
[2016-11-15 05:49] LABS: WHITE BLOOD COUNT 22.6 K/UL (4.8-10.8)
[2016-11-15 05:58] LABS: ALANINE AMINOTRANSFERASE 35 U/L (3-41); ALBUMIN/GLOBULIN RATIO 0.5 (1.0-2.7); ANION GAP 13 (5-15); ASPARTATE AMINO TRANSFERASE 32 U/L (5-40); BILIRUBIN,DIRECT 0.2 mg/dL (0.1-0.3); CALCIUM 8.5 mg/dL (8.6-10.2); CARBON DIOXIDE 25 mEQ/L (20-30); CHLORIDE 105 mEQ/L (98-107); CREATININE 1.8 mg/dL (0.7-1.2); HEMOLYSIS 1; SODIUM 143 mEQ/L (135-145); TOTAL PROTEIN 6.7 g/dL (6.6-8.7)
--- NOTE | 2016-11-15 07:23 | Pulmonolgy Critical Care Note ---
Critical Care - Asmt/Plan Assessment/Plan: ASSESSMENT acute hypoxemic hypercapnic respiratory failure requiring intubation septic shock sepsis UTI hyperkalemia acute renal failure on CKD hematuria anemia hx of CVA with R hemiplegia seizure disorder PLAN OF CARE ICU care hemodynamic support pressors to keep mean systolic BP above 65 ventilator support pulmonary toilet fup with ABG and titrate settings as needed daily CXR and ABG abx, fup with cx ID follows cardio eval noted ECHO pending IVF ,monitor renal parameters, lytes, avoid nephrotoxic keep NPO for now urology eval for hematuria hold Heparin Venous Duplex and if negative, start SCD monitor HH, transfuse prn DVT, GI prophylaxis case discussed and evaluated by supervising physician Critical Care - Objective Last 24 Hour Vital Signs Date Time Temp Pulse Resp B/P Pulse Ox O2 Delivery O2 Flow Rate FiO2 11/15/16 06:32 74 28 60 11/15/16 06:30 73 24 115/66 100 Mechanical Ventilator 100 11/15/16 06:00 72 24 104/61 100 Mechanical Ventilator 100 11/15/16 05:30 75 24 104/62 100 Mechanical Ventilator 100 11/15/16 05:10 74 26 60 11/15/16 05:00 77 23 110/67 100 Mechanical Ventilator 100 11/15/16 04:30 80 27 114/66 100 Mechanical Ventilator 100 11/15/16 04:00 79 11/15/16 04:00 98.0 80 25 103/57 100 Mechanical Ventilator 100 11/15/16 04:00 60 11/15/16 03:30 80 28 116/69 100 Mechanical Ventilator 100 11/15/16 03:25 81 30 60 11/15/16 03:00 79 29 100/64 100 Mechanical Ventilator 100 11/15/16 02:30 80 29 108/62 100 Mechanical Ventilator 100 11/15/16 02:00 79 28 93/65 100 Mechanical Ventilator 100 11/15/16 01:30 79 28 116/65 100 Mechanical Ventilator 100 11/15/16 01:05 77 36 60 11/15/16 01:00 77 27 95/58 100 Mechanical Ventilator 100 11/15/16 00:30 81 26 125/70 100 Mechanical Ventilator 100 11/15/16 00:00 60 11/15/16 00:00 78 11/15/16 00:00 80 30 104/62 99 Mechanical Ventilator 100 11/14/16 23:30 81 34 111/58 99 Mechanical Ventilator 100 11/14/16 23:22 82 34 60 11/14/16 23:00 82 35 123/68 97 Mechanical Ventilator 100 11/14/16 22:30 75 29 108/60 97 Mechanical Ventilator 100 11/14/16 22:00 75 31 110/62 99 Mechanical Ventilator 100 11/14/16 21:30 70 29 106/72 99 Mechanical Ventilator 100 11/14/16 21:15 65 31 60 11/14/16 21:00 66 28 92/52 100 Mechanical Ventilator 100 11/14/16 20:30 68 32 97/59 100 Mechanical Ventilator 100 11/14/16 20:00 68 32 97/59 100 Mechanical Ventilator 100 11/14/16 20:00 100 11/14/16 20:00 66 11/14/16 19:30 98.0 68 30 99/58 100 Mechanical Ventilator 100 11/14/16 19:02 63 35 100 11/14/16 19:00 60 20 118/66 100 Mechanical Ventilator 100 11/14/16 18:30 62 35 113/62 100 Mechanical Ventilator 100 11/14/16 18:15 62 32 102/57 100 Mechanical Ventilator 100 11/14/16 18:00 63 32 105/60 100 Mechanical Ventilator 100 11/14/16 17:45 61 32 102/57 100 Mechanical Ventilator 100 11/14/16 17:30 60 32 100/57 100 Mechanical Ventilator 100 11/14/16 17:15 62 32 105/54 100 Mechanical Ventilator 100 11/14/16 17:00 62 32 102/57 100 Mechanical Ventilator 100 11/14/16 17:00 92/50 11/14/16 16:52 58 36 100 11/14/16 16:45 57 32 92/50 100 Mechanical Ventilator 100 11/14/16 16:30 58 33 92/54 100 Mechanical Ventilator 100 11/14/16 16:15 57 38 85/50 100 Mechanical Ventilator 100 11/14/16 16:15 57 34 82/58 100 Mechanical Ventilator 100 11/14/16 16:00 57 35 84/52 100 Mechanical Ventilator 100 11/14/16 16:00 57 11/14/16 16:00 100 11/14/16 15:45 57 32 85/50 99 Mechanical Ventilator 100 11/14/16 15:30 57 35 82/52 99 Mechanical Ventilator 100 11/14/16 15:15 58 35 81/50 99 Mechanical Ventilator 100 11/14/16 15:06 59 35 100 11/14/16 15:00 97.7 58 35 82/60 100 Mechanical Ventilator 100 11/14/16 14:45 60 27 79/52 100 Mechanical Ventilator 100 11/14/16 14:33 35 11/14/16 14:33 78/52 11/14/16 14:32 78/52 11/14/16 14:27 60 35 78/52 100 Mechanical Ventilator 100 11/14/16 14:27 82/47 11/14/16 14:22 77/54 11/14/16 14:22 61 37 82/47 100 Mechanical Ventilator 100 11/14/16 14:21 36 11/14/16 14:17 83/49 11/14/16 14:17 61 36 77/54 100 Mechanical Ventilator 100 11/14/16 14:12 79/50 11/14/16 14:12 62 35 83/49 100 Mechanical Ventilator 100 11/14/16 14:07 79/50 11/14/16 14:07 62 35 79/50 100 Mechanical Ventilator 100 11/14/16 14:06 35 11/14/16 14:02 64 35 74/49 100 Mechanical Ventilator 100 11/14/16 14:02 74/49 11/14/16 13:57 64 35 80/49 100 Mechanical Ventilator 100 11/14/16 13:57 80/49 11/14/16 13:52 74/54 11/14/16 13:52 64 37 74/54 100 Mechanical Ventilator 100 11/14/16 13:51 38 11/14/16 13:47 64 38 85/48 100 Mechanical Ventilator 100 11/14/16 13:47 85/48 11/14/16 13:44 65 38 84/48 100 Mechanical Ventilator 100 11/14/16 13:42 81/46 11/14/16 13:37 65 35 84/48 100 Mechanical Ventilator 100 11/14/16 13:37 84/48 11/14/16 13:36 32 11/14/16 13:32 65 32 87/59 100 Mechanical Ventilator 100 11/14/16 13:32 87/59 11/14/16 13:30 65 34 100 11/14/16 13:27 65 32 67/48 100 Mechanical Ventilator 100 11/14/16 13:27 67/48 6/29/17 13:22 87/50 11/14/16 13:22 65 32 87/50 100 Mechanical Ventilator 100 11/14/16 13:21 31 11/14/16 13:17 92/47 11/14/16 13:17 65 31 92/47 100 Mechanical Ventilator 100 11/14/16 13:12 103/61 11/14/16 13:12 66 26 103/61 100 Mechanical Ventilator 100 11/14/16 13:07 95/52 11/14/16 13:07 66 27 95/52 100 Mechanical Ventilator 100 11/14/16 13:06 28 11/14/16 13:02 66 28 109/60 100 Mechanical Ventilator 100 11/14/16 13:02 109/60 11/14/16 12:57 103/57 11/14/16 12:57 65 27 103/57 100 Mechanical Ventilator 100 11/14/16 12:52 65 26 102/50 99 Mechanical Ventilator 100 11/14/16 12:52 102/50 11/14/16 12:51 28 11/14/16 12:47 65 28 91/47 97 Mechanical Ventilator 100 11/14/16 12:47 91/47 11/14/16 12:42 88/59 11/14/16 12:42 65 29 88/59 97 Mechanical Ventilator 100 11/14/16 12:37 65 31 81/47 100 Mechanical Ventilator 100 11/14/16 12:37 81/47 11/14/16 12:36 25 11/14/16 12:32 67 25 87/44 100 Mechanical Ventilator 100 11/14/16 12:32 87/44 11/14/16 12:27 66 29 82/53 97 Mechanical Ventilator 100 11/14/16 12:27 82/53 11/14/16 12:22 66 34 83/57 100 Mechanical Ventilator 100 11/14/16 12:22 83/57 11/14/16 12:21 23 11/14/16 12:17 68 23 83/57 97 Mechanical Ventilator 100 11/14/16 12:17 83/57 11/14/16 12:15 98.2 72 36 80/51 98 Mechanical Ventilator 100 11/14/16 12:12 67 38 70/54 100 Mechanical Ventilator 100 11/14/16 12:12 70/54 11/14/16 12:07 68 36 93/50 100 Mechanical Ventilator 100 11/14/16 12:07 93/50 11/14/16 12:06 36 11/14/16 12:02 67 33 94/58 100 Mechanical Ventilator 100 11/14/16 12:02 94/58 11/14/16 11:57 80/51 11/14/16 11:57 68 35 80/51 100 Mechanical Ventilator 100 11/14/16 11:52 69 37 61/49 100 Mechanical Ventilator 100 11/14/16 11:52 61/49 11/14/16 11:47 70 38 86/59 100 Mechanical Ventilator 100 11/14/16 11:47 86/59 11/14/16 11:42 72 29 92/51 100 Mechanical Ventilator 100 11/14/16 11:42 92/51 11/14/16 11:35 73 30 Mechanical Ventilator 100 11/14/16 11:35 73 30 100 11/14/16 11:33 85/47 11/14/16 11:23 72 22 83/55 98 Ambu-Bag 11/14/16 11:20 78 36 Room Air 11/14/16 11:20 100 11/14/16 11:11 98.2 78 36 91 Room Air Status: sedated Condition: critical HEENT: atraumatic, normocephalic, other - OP with ET in palce, intact Lungs: clear Heart: HR/BP unstable - on pressors Abdomen: soft, non-tender Extremities: no C/C/E, other - R hemiplegia Critical Care - Subjective ROS Limited/Unobtainable: Yes Interval Events: leukocytosis with trend up, afebrile FiO2 down titrated to 60 % ABG pending for this am no signs of respiratory distress on current settings hyperkalemia resolved after treatment creat still high HH with small trend down Matson was changed last night , lots of blood clots, irrigated by nursing now new Matson sill with hematuria Condition: critical EKG Rhythm: Sinus Rhythm FI02: 60 Vent Support Breath Rate: 18 Vent Support Mode: AC Vent Tidal Volume: 500 Sputum Amount: Small PEEP: 0.0 PIP: 17 Fluids: NS at 100 Drips: Levophed at 8 mcg/min I&O: Intake and Output 11/14/16 11/15/16 19:00 07:00 Intake Total 1428.6 ml 1919.15 ml Output Total 30 ml 1380 ml Balance 1398.6 ml 539.15 ml Intake IV Total 1428.6 ml 1919.15 ml Output Urine Total 30 ml 1380 ml # Voids 240 2 # Bowel Movements 4 3 CXR: 11/14 Satisfactory endotracheal intubation. Bilateral basilar atelectasis versus scar. No other acute process ET-Tube: 8.0 ET Position: 24 Cabrera (HueMelia almanza NP Nov 15, 2016 07:23
[2016-11-15 08:30] LABS: LYMPHOCYTES % (MANUAL) 6 % (20-45)
[2016-11-15 08:31] LABS: ANISOCYTOSIS 1+; BAND NEUTROPHILS % (MANUAL) 13 % (0-8); BASOPHILS % (MANUAL) 0 % (0-2); EOSINOPHILS % (MANUAL) 0 % (0-3); HYPOCHROMASIA 1+; NEUTROPHILS % (MANUAL) 77 % (45-75); PLATELET ESTIMATE ADEQUATE; PLATELET MORPHOLOGY NORMAL; TOTAL CELLS COUNTED 100
[2016-11-15] MEDS ORDERED: Pantoprazole Inj IVP SCH (09:00)
[2016-11-15] MEDS: Heparin 5000 units/ml inj SUBQ SCH ×2 (09:00→20:32)
[2016-11-15] MEDS: Meropenem 1 GM in NS 110 ML IVPB SCH ×2 (09:00→20:32)
[2016-11-15] MEDS: Pantoprazole Inj IVP SCH (09:00)
[2016-11-15 09:23] LABS: ABG ALLEN TEST POSITIVE; ABG BASE EXCESS 1.5; ABG PCO2 39.4 mmHg (35.0-45.0)
--- NOTE | 2016-11-15 10:28 | Diagnostic Imaging Report ---
Indication: RENAL-C chronic renal failure, hematuria, elevated renal function tests, chronic kidney disease stage III Technique: Grayscale and duplex images of the kidneys, retroperitoneum, and bladder were obtained. Comparison: 09/02/2016 Findings: Right kidney measures 9.4 cm in length. Left kidney measures 13 cm in length. Both kidneys demonstrate increased renal echogenicity. Left kidney demonstrates moderate hydronephrosis and proximal hydroureter, obstruction not demonstrated. There is a 19 mm left renal cyst. Normal inferior vena cava. Bladder demonstrates the wall thickening. Bladder volume 174 mL. No Matson catheter balloon is visualized within bladder lumen. The left hydronephrosis is new finding since previous abdominal ultrasound of August 2016 Impression: Moderate left hydronephrosis, new since 09/02/2016. Etiology not demonstrated Bilateral increased renal echogenicity, consistent with medical renal disease, also previously reported Matson catheter balloon not visualized within the bladder lumen, malposition suspected if Matson catheter present Thickwalled bladder, may indicate cystitis or chronic bladder outlet obstruction Incidental finding left renal cyst .
--- NOTE | 2016-11-15 11:24 | Diagnostic Imaging Report ---
Indication: DYSPNEA Technique: One view of the chest Comparison: 11/14/2016 Findings: Stable satisfactory position of endotracheal tube. Persistent, but slightly improved, bilateral basilar pulmonary atelectatic changes. No new infiltrates. No effusions. Heart size is normal. Impression: Slightly improved basilar pulmonary atelectasis. Otherwise, little change management analyst one day
[2016-11-15] MEDS ORDERED: Midazolam for drip 50 MG in D5W 90 ML IV SCH (11:45)
[2016-11-15] MEDS: Vancomycin 1 GM in D5W 275 ML IVPB SCH (12:00)
[2016-11-15] MEDS ORDERED: Cefepime 1gm/D5W 55ml IVPB SCH ×2 (13:00)
--- NOTE | 2016-11-15 13:20 | General Progress Note ---
Assessment/Plan Problem List: (1) Sepsis ICD Codes: A41.9 - Sepsis, unspecified organism SNOMED: 29544191 (2) Septic shock ICD Codes: A41.9 - Sepsis, unspecified organism; R65.21 - Severe sepsis with septic shock SNOMED: 76451261 (3) Renal failure ICD Codes: N19 - Unspecified kidney failure SNOMED: 95515123 Qualifiers: Qualified Codes: N17.9 - Acute kidney failure, unspecified (4) Respiratory distress ICD Codes: R06.00 - Dyspnea, unspecified SNOMED: 536753080 (5) Pneumonia ICD Codes: J18.9 - Pneumonia, unspecified organism SNOMED: 630398782 (6) UTI (urinary tract infection) ICD Codes: N39.0 - Urinary tract infection, site not specified SNOMED: 81059489 Status: unchanged Assessment/Plan vent abx cbc bmp am Subjective Constitutional: Reports: weakness Allergies: Coded Allergies: No Known Allergies (Verified , 01/02/09) All Systems: reviewed and negative except above Subjective intubated sedated in icu Objective Last 24 Hour Vital Signs Date Time Temp Pulse Resp B/P Pulse Ox O2 Delivery O2 Flow Rate FiO2 11/15/16 13:00 73 22 109/56 100 Mechanical Ventilator 50 11/15/16 12:57 72 29 60 11/15/16 12:00 70 11/15/16 12:00 97.5 68 28 106/60 100 Mechanical Ventilator 60 11/15/16 12:00 106/60 11/15/16 12:00 60 11/15/16 12:00 70 11/15/16 12:00 97.9 70 19 110/59 100 Mechanical Ventilator 60 11/15/16 11:20 70 32 60 11/15/16 11:00 72 20 118/61 100 Mechanical Ventilator 60 11/15/16 11:00 114/71 11/15/16 10:33 71 28 60 11/15/16 10:00 76 20 114/56 99 Mechanical Ventilator 60 11/15/16 10:00 95/56 11/15/16 09:00 94/57 11/15/16 09:00 76 20 109/61 100 Mechanical Ventilator 60 11/15/16 08:44 76 22 60 11/15/16 08:00 73 11/15/16 08:00 96/66 11/15/16 08:00 98.0 72 23 91/55 99 Mechanical Ventilator 60 11/15/16 08:00 60 11/15/16 07:00 76 20 96/61 100 Mechanical Ventilator 60 11/15/16 07:00 123/66 11/15/16 06:32 74 28 60 11/15/16 06:30 73 24 115/66 100 Mechanical Ventilator 100 11/15/16 06:00 72 24 104/61 100 Mechanical Ventilator 100 11/15/16 05:30 75 24 104/62 100 Mechanical Ventilator 100 11/15/16 05:10 74 26 60 11/15/16 05:00 77 23 110/67 100 Mechanical Ventilator 100 11/15/16 04:30 80 27 114/66 100 Mechanical Ventilator 100 11/15/16 04:00 79 11/15/16 04:00 98.0 80 25 103/57 100 Mechanical Ventilator 100 11/15/16 04:00 60 11/15/16 03:30 80 28 116/69 100 Mechanical Ventilator 100 11/15/16 03:25 81 30 60 11/15/16 03:00 79 29 100/64 100 Mechanical Ventilator 100 11/15/16 02:30 80 29 108/62 100 Mechanical Ventilator 100 11/15/16 02:00 79 28 93/65 100 Mechanical Ventilator 100 11/15/16 01:30 79 28 116/65 100 Mechanical Ventilator 100 11/15/16 01:05 77 36 60 11/15/16 01:00 77 27 95/58 100 Mechanical Ventilator 100 11/15/16 00:30 81 26 125/70 100 Mechanical Ventilator 100 11/15/16 00:00 60 11/15/16 00:00 78 11/15/16 00:00 80 30 104/62 99 Mechanical Ventilator 100 11/14/16 23:30 81 34 111/58 99 Mechanical Ventilator 100 11/14/16 23:22 82 34 60 11/14/16 23:00 82 35 123/68 97 Mechanical Ventilator 100 11/14/16 22:30 75 29 108/60 97 Mechanical Ventilator 100 11/14/16 22:00 75 31 110/62 99 Mechanical Ventilator 100 11/14/16 21:30 70 29 106/72 99 Mechanical Ventilator 100 11/14/16 21:15 65 31 60 11/14/16 21:00 66 28 92/52 100 Mechanical Ventilator 100 11/14/16 20:30 68 32 97/59 100 Mechanical Ventilator 100 11/14/16 20:00 68 32 97/59 100 Mechanical Ventilator 100 11/14/16 20:00 100 11/14/16 20:00 66 11/14/16 19:30 98.0 68 30 99/58 100 Mechanical Ventilator 100 11/14/16 19:02 63 35 100 11/14/16 19:00 60 20 118/66 100 Mechanical Ventilator 100 11/14/16 18:30 62 35 113/62 100 Mechanical Ventilator 100 11/14/16 18:15 62 32 102/57 100 Mechanical Ventilator 100 11/14/16 18:00 63 32 105/60 100 Mechanical Ventilator 100 11/14/16 17:45 61 32 102/57 100 Mechanical Ventilator 100 11/14/16 17:30 60 32 100/57 100 Mechanical Ventilator 100 11/14/16 17:15 62 32 105/54 100 Mechanical Ventilator 100 11/14/16 17:00 62 32 102/57 100 Mechanical Ventilator 100 11/14/16 17:00 92/50 11/14/16 16:52 58 36 100 11/14/16 16:45 57 32 92/50 100 Mechanical Ventilator 100 11/14/16 16:30 58 33 92/54 100 Mechanical Ventilator 100 11/14/16 16:15 57 38 85/50 100 Mechanical Ventilator 100 11/14/16 16:15 57 34 82/58 100 Mechanical Ventilator 100 11/14/16 16:00 57 35 84/52 100 Mechanical Ventilator 100 11/14/16 16:00 57 11/14/16 16:00 100 11/14/16 15:45 57 32 85/50 99 Mechanical Ventilator 100 11/14/16 15:30 57 35 82/52 99 Mechanical Ventilator 100 11/14/16 15:15 58 35 81/50 99 Mechanical Ventilator 100 11/14/16 15:06 59 35 100 11/14/16 15:00 97.7 58 35 82/60 100 Mechanical Ventilator 100 11/14/16 14:45 60 27 79/52 100 Mechanical Ventilator 100 11/14/16 14:33 35 11/14/16 14:33 78/52 11/14/16 14:32 78/52 11/14/16 14:27 60 35 78/52 100 Mechanical Ventilator 100 11/14/16 14:27 82/47 11/14/16 14:22 77/54 11/14/16 14:22 61 37 82/47 100 Mechanical Ventilator 100 11/14/16 14:21 36 11/14/16 14:17 83/49 11/14/16 14:17 61 36 77/54 100 Mechanical Ventilator 100 11/14/16 14:12 79/50 11/14/16 14:12 62 35 83/49 100 Mechanical Ventilator 100 11/14/16 14:07 79/50 11/14/16 14:07 62 35 79/50 100 Mechanical Ventilator 100 11/14/16 14:06 35 11/14/16 14:02 64 35 74/49 100 Mechanical Ventilator 100 11/14/16 14:02 74/49 11/14/16 14:00 145/56 11/14/16 13:57 64 35 80/49 100 Mechanical Ventilator 100 11/14/16 13:57 80/49 11/14/16 13:52 74/54 11/14/16 13:52 64 37 74/54 100 Mechanical Ventilator 11/14/16 13:51 38 11/14/16 13:47 64 38 85/48 100 Mechanical Ventilator 11/14/16 13:47 85/48 11/14/16 13:44 65 38 84/48 100 Mechanical Ventilator 11/14/16 13:42 81/46 11/14/16 13:37 65 35 84/48 100 Mechanical Ventilator 11/14/16 13:37 84/48 11/14/16 13:36 32 11/14/16 13:32 65 32 87/59 100 Mechanical Ventilator 11/14/16 13:32 87/59 11/14/16 13:30 65 34 100 11/14/16 13:27 65 32 67/48 100 Mechanical Ventilator 100 11/14/16 13:27 67/48 11/14/16 13:22 87/50 11/14/16 13:22 65 32 87/50 100 Mechanical Ventilator 11/14/16 13:21 31 Intake and Output 11/14/16 11/15/16 19:00 07:00 Intake Total 1428.6 ml 2064.87 ml Output Total 30 ml 1430 ml Balance 1398.6 ml 634.87 ml Intake IV Total 1428.6 ml 2064.87 ml Output Urine Total 30 ml 1430 ml # Voids 240 2 # Bowel Movements 4 3 Laboratory Tests 11/14/16 14:06: Lactic Acid Level 4.80H 11/15/16 04:14: White Blood Count 22.6*H, Red Blood Count 3.59L, Hemoglobin 8.9L, Hematocrit 29.5L, Mean Corpuscular Volume 82, Mean Corpuscular Hemoglobin 24.9L, Mean Corpuscular Hemoglobin Concent 30.3L, Red Cell Distribution Width 17.6H, Platelet Count 277, Mean Platelet Volume 6.9, Neutrophils (%) (Auto) , Lymphocytes (%) (Auto) , Monocytes (%) (Auto) , Eosinophils (%) (Auto) , Basophils (%) (Auto) , Differential Total Cells Counted 100, Neutrophils % ( Manual) 77H, Lymphocytes % (Manual) 6L, Monocytes % (Manual) 4, Eosinophils % ( Manual) 0, Basophils % (Manual) 0, Band Neutrophils 13H, Platelet Estimate Adequate, Platelet Morphology Normal, Hypochromasia 1+, Anisocytosis 1+, Sodium Level 143, Potassium Level 4.0, Chloride Level 105, Carbon Dioxide Level 25, Anion Gap 13, Blood Urea Nitrogen 55H, Creatinine 1.8H, Estimat Glomerular Filtration Rate , Glucose Level 132H, Calcium Level 8.5L, Phosphorus Level 4.0, Magnesium Level 2.0, Total Bilirubin 0.5, Direct Bilirubin 0.2, Aspartate Amino Transf (AST/SGOT) 32, Alanine Aminotransferase (ALT/SGPT) 35, Alkaline Phosphatase 79, Total Protein 6.7, Albumin 2.3L, Globulin 4.4, Albumin/Globulin Ratio 0.5L 11/15/16 08:44: Arterial Blood pH 7.429, Arterial Blood Partial Pressure CO2 39.4, Arterial Blood Partial Pressure O2 100.8H, Arterial Blood HCO3 25.9, Arterial Blood Oxygen Saturation 97.0, Arterial Blood Base Excess 1.5, Librado Test Positive 11/15/16 09:05: Lactic Acid Level 1.70 Height (Feet): 6 Height (Inches): 1.00 Weight (Pounds): 189 General Appearance: lethargic EENT: normal ENT inspection Neck: normal alignment Cardiovascular: normal peripheral pulses, normal rate, regular rhythm Respiratory/Chest: chest wall non-tender, lungs clear, normal breath sounds Abdomen: normal bowel sounds, non tender, soft Extremities: normal inspection Edema: no edema noted Arm (L), no edema noted Arm (R), no edema noted Leg (L), no edema noted Leg (R), no edema noted Pedal (L), no edema noted Pedal (R), no edema noted Generalized Neurologic: motor weakness Skin: normal pigmentation, warm/dry CASS YANES Nov 15, 2016 13:20
--- NOTE | 2016-11-15 13:43 | Wound Care Consultation ---
Wound Assessment Wound Assessment #1: Wound Present on Admission: Yes New Wound: No Status Change of Wound: No Wound Location Body Site Modif: mid Wound Location Body Site: sacral Wound Type: pressure ulcer Smitha Test: Does not Smitha Pressure Ulcer Stage: III Wound Thickness: Full Thickness Wound Length: 4.0 Wound Width: 3.0 Wound Depth: 0.3 Percent of Wound Ulen/Red: 90 Percent of Wound Bed Yellow/Wh: 10 Wound Drainage Description: Serosanguineous Wound Drainage Amount: Moderate Wound Drainage Odor: None/Absent Tissue Surrounding Wound: Macerated Wound General Appearance: Reddened, Draining Wound Assessment #2: Wound Number: #2 Wound Present on Admission: Yes New Wound: No Status Change of Wound: No Wound Location Body Site Modif: left, posterior Wound Location Body Site: knee Wound Type: lesion-etiology unknown - with dry yellow scab Wound Thickness: Full Thickness Wound Length: 1.5 Wound Width: 1.5 Wound Depth: utd Percent of Wound Bed Yellow/Wh: 100 - dry Wound Drainage Amount: None Wound Drainage Odor: None/Absent Tissue Surrounding Wound: Intact Wound General Appearance: Open to air Wound Assessment #3: Wound Number: #3 Wound Present on Admission: Yes New Wound: No Status Change of Wound: No Wound Location Body Site: other - Tip of penile area Wound Type: pressure ulcer - mucosal Smitha Test: Does not Smitha Wound Thickness: Full Thickness - scattered around tip of penile area Percent of Wound Ulen/Red: 100 Wound Drainage Description: Serosanguineous Wound Drainage Amount: Scant Wound Drainage Odor: None/Absent Tissue Surrounding Wound: Erythemic Wound General Appearance: Reddened Wound Comment #1 Sacral stage III pressure ulcer #2 Left posterior knee dry yellow scab #3 Tip of penile mucosal pressure caused by F/C #4 Full thickness scar tissue on right dorsal foot and left and right lateral malleolus #5 Dryness on both lower legs Recommendation -Sacral stage III pressure ulcer Cleanse with saline, pat dry, apply Triad cream, cover with bordered gauze daily and PRN soiled/dislodged -Penile mucosal pressure Cleanse with saline, pat dry, apply Triad cream leave area open to air. -Keep clean and dry -Turn and reposition -Optimize nutrition -Heel protector on both heels -A&D ointment on both lower legs -Offload both heels -Low air loss mattress -Assess and f/u accordingly for any changes WILLIAM STRICKLAND RN Nov 15, 2016 13:43
[2016-11-15] MEDS ORDERED: Miralax 17gm pkt ORAL PRN (14:00)
--- NOTE | 2016-11-15 14:23 | Infectious Diseases Prog Note ---
Assessment/Plan Problems: (1) Septic shock Assessment & Plan: with gram negative rods, suspect source is UTI , complicated with respiratory failure, will switch cefepime to meropenem since his WBC increased today , and continue vancomycin , monitor blood and sputum culture (2) Respiratory distress Assessment & Plan: due to the above, S/P intubation, continue mechanical ventilation, monitor ABG, titrate oxygen as needed (3) UTI (urinary tract infection) Assessment & Plan: most likely the source of his sepsis, continue antibiotics, send urine culture, recommend US of the kidney (4) Hyperkalemia Assessment & Plan: suspect due to renal failure, recommend renal consult, for further management (5) Renal failure Assessment & Plan: continue hydration, avoid nephrotoxic meds (6) Hydronephrosis of left kidney Assessment & Plan: with hematuria, unclear whether his ureter is obstructed, recommend urology eval for possible cystoscopy Subjective ROS Limited/Unobtainable: Yes Allergies: Coded Allergies: No Known Allergies (Verified , 01/02/09) Subjective he is intubated on mechanical ventilation, comfortable, not in distress, off pressors Objective Vital Signs Last 24 Hour Vital Signs Date Time Temp Pulse Resp B/P Pulse Ox O2 Delivery O2 Flow Rate FiO2 11/15/16 14:00 75 22 131/61 100 Mechanical Ventilator 50 11/15/16 13:00 73 22 109/56 100 Mechanical Ventilator 50 11/15/16 12:57 72 29 60 11/15/16 12:00 70 11/15/16 12:00 97.5 68 28 106/60 100 Mechanical Ventilator 60 11/15/16 12:00 106/60 11/15/16 12:00 60 11/15/16 12:00 70 11/15/16 12:00 97.9 70 19 110/59 100 Mechanical Ventilator 60 11/15/16 11:20 70 32 60 11/15/16 11:00 72 20 118/61 100 Mechanical Ventilator 60 11/15/16 11:00 114/71 11/15/16 10:33 71 28 60 11/15/16 10:00 76 20 114/56 99 Mechanical Ventilator 60 11/15/16 10:00 95/56 11/15/16 09:00 94/57 11/15/16 09:00 76 20 109/61 100 Mechanical Ventilator 60 11/15/16 08:44 76 22 60 11/15/16 08:00 73 11/15/16 08:00 96/66 11/15/16 08:00 98.0 72 23 91/55 99 Mechanical Ventilator 60 11/15/16 08:00 60 11/15/16 07:00 76 20 96/61 100 Mechanical Ventilator 60 11/15/16 07:00 123/66 11/15/16 06:32 74 28 60 11/15/16 06:30 73 24 115/66 100 Mechanical Ventilator 100 11/15/16 06:00 72 24 104/61 100 Mechanical Ventilator 100 11/15/16 05:30 75 24 104/62 100 Mechanical Ventilator 100 11/15/16 05:10 74 26 60 11/15/16 05:00 77 23 110/67 100 Mechanical Ventilator 100 11/15/16 04:30 80 27 114/66 100 Mechanical Ventilator 100 11/15/16 04:00 79 11/15/16 04:00 98.0 80 25 103/57 100 Mechanical Ventilator 100 11/15/16 04:00 60 11/15/16 03:30 80 28 116/69 100 Mechanical Ventilator 100 11/15/16 03:25 81 30 60 11/15/16 03:00 79 29 100/64 100 Mechanical Ventilator 100 11/15/16 02:30 80 29 108/62 100 Mechanical Ventilator 100 11/15/16 02:00 79 28 93/65 100 Mechanical Ventilator 100 11/15/16 01:30 79 28 116/65 100 Mechanical Ventilator 100 11/15/16 01:05 77 36 60 11/15/16 01:00 77 27 95/58 100 Mechanical Ventilator 100 11/15/16 00:30 81 26 125/70 100 Mechanical Ventilator 100 11/15/16 00:00 60 11/15/16 00:00 78 11/15/16 00:00 80 30 104/62 99 Mechanical Ventilator 100 11/14/16 23:30 81 34 111/58 99 Mechanical Ventilator 100 11/14/16 23:22 82 34 60 11/14/16 23:00 82 35 123/68 97 Mechanical Ventilator 100 11/14/16 22:30 75 29 108/60 97 Mechanical Ventilator 100 11/14/16 22:00 75 31 110/62 99 Mechanical Ventilator 100 11/14/16 21:30 70 29 106/72 99 Mechanical Ventilator 100 11/14/16 21:15 65 31 60 6/29/17 21:00 66 28 92/52 100 Mechanical Ventilator 100 11/14/16 20:30 68 32 97/59 100 Mechanical Ventilator 100 11/14/16 20:00 68 32 97/59 100 Mechanical Ventilator 100 11/14/16 20:00 100 11/14/16 20:00 66 11/14/16 19:30 98.0 68 30 99/58 100 Mechanical Ventilator 100 11/14/16 19:02 63 35 100 11/14/16 19:00 60 20 118/66 100 Mechanical Ventilator 100 11/14/16 18:30 62 35 113/62 100 Mechanical Ventilator 100 11/14/16 18:15 62 32 102/57 100 Mechanical Ventilator 100 11/14/16 18:00 63 32 105/60 100 Mechanical Ventilator 100 11/14/16 17:45 61 32 102/57 100 Mechanical Ventilator 100 11/14/16 17:30 60 32 100/57 100 Mechanical Ventilator 100 11/14/16 17:15 62 32 105/54 100 Mechanical Ventilator 100 11/14/16 17:00 62 32 102/57 100 Mechanical Ventilator 100 11/14/16 17:00 92/50 11/14/16 16:52 58 36 100 11/14/16 16:45 57 32 92/50 100 Mechanical Ventilator 100 11/14/16 16:30 58 33 92/54 100 Mechanical Ventilator 100 11/14/16 16:15 57 38 85/50 100 Mechanical Ventilator 100 11/14/16 16:15 57 34 82/58 100 Mechanical Ventilator 100 11/14/16 16:00 57 35 84/52 100 Mechanical Ventilator 100 11/14/16 16:00 57 11/14/16 16:00 100 11/14/16 15:45 57 32 85/50 99 Mechanical Ventilator 100 11/14/16 15:30 57 35 82/52 99 Mechanical Ventilator 100 11/14/16 15:15 58 35 81/50 99 Mechanical Ventilator 100 11/14/16 15:06 59 35 100 11/14/16 15:00 97.7 58 35 82/60 100 Mechanical Ventilator 100 11/14/16 14:45 60 27 79/52 100 Mechanical Ventilator 100 11/14/16 14:33 35 11/14/16 14:33 78/52 11/14/16 14:32 78/52 11/14/16 14:27 60 35 78/52 100 Mechanical Ventilator 100 11/14/16 14:27 82/47 11/14/16 14:22 77/54 11/14/16 14:22 61 37 82/47 100 Mechanical Ventilator 100 11/14/16 14:21 36 Height (Feet): 6 Height (Inches): 1.00 Weight (Pounds): 189 General Appearance: WD/WN, no acute distress HEENT: normocephalic, atraumatic, anicteric, mucous membranes moist Respiratory/Chest: chest wall non-tender, lungs clear, no respiratory distress , no accessory muscle use, decreased breath sounds Cardiovascular: normal peripheral pulses, normal rate, regular rhythm, no gallop/murmur, no JVD Abdomen: normal bowel sounds, soft, non tender, no organomegaly, non distended , no mass Extremities: no cyanosis, no clubbing Skin: no rash, no lesions, ulcers Musculoskeletal: normal muscle bulk, no effusion Microbiology Date/Time Source Procedure Growth Status 11/14/16 11:40 Blood Blood Culture - Preliminary Resulted 11/14/16 11:20 Blood Blood Culture - Preliminary Resulted 11/14/16 12:27 Sputum Expectorated Gram Stain Pending Resulted 11/14/16 12:27 Sputum Expectorated Sputum Culture - Preliminary Resulted 11/14/16 11:40 Nasal Nares MRSA Culture - Final Staphylococcus Aureus - Mrsa Complete 11/14/16 18:30 Stool Clostridium difficile Toxin Assay - Final Complete 11/14/16 11:20 Indwelling Cath Urine Culture - Preliminary Gram Negative Bacillus 1 Resulted Laboratory Tests Test 11/15/16 04:14 11/15/16 08:44 11/15/16 09:05 White Blood Count 22.6 K/UL (4.8-10.8) *H Red Blood Count 3.59 M/UL (4.70-6.10) L Hemoglobin 8.9 G/DL (14.2-18.0) L Hematocrit 29.5 % (42.0-52.0) L Mean Corpuscular Volume 82 FL (80-99) Mean Corpuscular Hemoglobin 24.9 PG (27.0-31.0) L Mean Corpuscular Hemoglobin Concent 30.3 G/DL (32.0-36.0) L Red Cell Distribution Width 17.6 % (11.6-14.8) H Platelet Count 277 K/UL (150-450) Mean Platelet Volume 6.9 FL (6.5-10.1) Neutrophils (%) (Auto) % (45.0-75.0) Lymphocytes (%) (Auto) % (20.0-45.0) Monocytes (%) (Auto) % (1.0-10.0) Eosinophils (%) (Auto) % (0.0-3.0) Basophils (%) (Auto) % (0.0-2.0) Differential Total Cells Counted 100 Neutrophils % (Manual) 77 % (45-75) H Lymphocytes % (Manual) 6 % (20-45) L Monocytes % (Manual) 4 % (1-10) Eosinophils % (Manual) 0 % (0-3) Basophils % (Manual) 0 % (0-2) Band Neutrophils 13 % (0-8) H Platelet Estimate Adequate Platelet Morphology Normal Hypochromasia 1+ Anisocytosis 1+ Sodium Level 143 mEQ/L (135-145) Potassium Level 4.0 mEQ/L (3.4-4.9) Chloride Level 105 mEQ/L (98-107) Carbon Dioxide Level 25 mEQ/L (20-30) Anion Gap 13 (5-15) Blood Urea Nitrogen 55 mg/dL (7-23) H Creatinine 1.8 mg/dL (0.7-1.2) H Estimat Glomerular Filtration Rate mL/min (>60) Glucose Level 132 mg/dL (74-106) H Calcium Level 8.5 mg/dL (8.6-10.2) L Phosphorus Level 4.0 mg/dL (2.5-4.8) Magnesium Level 2.0 mg/dL (1.7-2.5) Total Bilirubin 0.5 mg/dL (0.0-1.2) Direct Bilirubin 0.2 mg/dL (0.1-0.3) Aspartate Amino Transf (AST/SGOT) 32 U/L (5-40) Alanine Aminotransferase (ALT/SGPT) 35 U/L (3-41) Alkaline Phosphatase 79 U/L (40-129) Total Protein 6.7 g/dL (6.6-8.7) Albumin 2.3 g/dL (3.5-5.2) L Globulin 4.4 g/dL Albumin/Globulin Ratio 0.5 (1.0-2.7) L Arterial Blood pH 7.429 (7.350-7.450) Arterial Blood Partial Pressure CO2 39.4 mmHg (35.0-45.0) Arterial Blood Partial Pressure O2 100.8 mmHg (75.0-100.0) H Arterial Blood HCO3 25.9 mmol/L (22.0-26.0) Arterial Blood Oxygen Saturation 97.0 % (92.0-98.0) Arterial Blood Base Excess 1.5 Librado Test Positive Lactic Acid Level 1.70 mmol/L (0.66-2.22) Current Medications Medications (Trade) Dose Ordered Sig/Keira Route PRN Reason Start Time Stop Time Status Last Admin Dose Admin Acetaminophen (Tylenol) 650 mg Q4H PRN ORAL fever 11/14/16 18:00 12/14/16 17:59 Albuterol/ Ipratropium (DuoNeb 0.5-3(2.5)mg/3ml) 3 ml EVERY 4 HOURS PRN HHN Shortness of Breath 11/14/16 17:00 11/19/16 16:59 Lorazepam (Ativan 2mg/ml 1ml) 2 mg EVERY 2 HOURS PRN IV For Anxiety 11/14/16 16:00 11/21/16 15:59 11/14/16 20:57 Meropenem/Sodium Chloride (Merrem/Sodium Chloride) 110 ml @ 220 mls/hr Q12HR IVPB 11/15/16 09:00 11/20/16 08:59 11/15/16 09:00 Morphine Sulfate (Morphine Sulfate) 4 mg EVERY 4 HOURS PRN IVP Severe Pain (Pain Scale 7-10) 11/14/16 17:00 11/21/16 16:59 Norepinephrine Bitartrate 4 mg/ Dextrose 254 ml @ 0 mls/hr Q24H IV 11/15/16 17:00 12/15/16 16:59 11/14/16 17:00 Ondansetron HCl (Zofran) 4 mg Q6H PRN IVP Nausea & Vomiting 11/14/16 20:00 12/14/16 19:59 Pantoprazole (Protonix) 40 mg DAILY IVP 11/15/16 09:00 12/15/16 08:59 11/15/16 09:00 Polyethylene Glycol 17 gm 17 gm DAILYPRN PRN ORAL Constipation 11/15/16 14:00 12/15/16 13:59 Sodium Chloride 1,000 ml @ 100 mls/hr Q10H IVLG 11/14/16 17:00 12/14/16 16:59 11/15/16 12:44 Vancomycin HCl/ Dextrose (Vancomycin/D5W) 275 ml @ 183.3 mls/ hr Q24H IVPB 11/15/16 12:00 11/20/16 11:59 11/15/16 12:00 Vitamin A/Vitamin D (A & D Oint) 1 applic EVERY 12 HOURS TOPIC 11/15/16 21:00 12/15/16 20:59 Julianna Trejo M.D. Nov 15, 2016 14:23
[2016-11-15] MEDS ORDERED: Lidocaine 1% Plain 30 ml INJ SCH (15:00)
[2016-11-15] MEDS ORDERED: Heparin 2000 units/Ns 1000ml INJ SCH (15:00)
--- NOTE | 2016-11-15 16:03 | General Progress Note ---
Progress Note Progress Note [id number] full note dictated KOBE BRITTON Nov 15, 2016 16:03
--- NOTE | 2016-11-15 18:47 | Cardiology Report ---
APPROVED REPORT EKG Measurement Heart [id number] Normal sinus rhythm Left axis deviation Left bundle branch block Abnormal ECG
[2016-11-15] MEDS: LORazepam Inj 2mg/ml 1ml IV PRN (20:17)
[2016-11-15] MEDS: Dyna-Hex 2% Top Sol 8oz TOPIC SCH (20:32)
[2016-11-15] MEDS: Vitamin A&D Oint 2oz Tube TOPIC SCH (20:47)
--- NOTE | 2016-11-15 21:02 | Progress Note ---
DATE: 11/15/2016 CARDIOLOGY CRITICAL CARE SUBJECTIVE: The patient remains in the intensive care unit. He is on ventilator support. He is on tapering doses of pressors with blood pressure remains tenuous. Monitored rhythm is sinus. No significant ectopy. OBJECTIVE: VITAL SIGNS: Blood pressure 96/61, pulse 76, respirations 20, and afebrile. GENERAL: Alert and interactive. Orally intubated. LUNGS: Bilateral breath sounds. Scattered rhonchi. HEART: Regular rhythm and rate. Normal S1 and S2. ABDOMEN: Soft. EXTREMITIES: No edema. SKIN: Intact. LABORATORY DATA: White count 22.6 and hemoglobin 8.9. Potassium 4, BUN 55, creatinine 1.8, and bicarbonate 25. Magnesium is 2. Lactic acid has decreased from 4.8 to 1.7. Albumin is 2.3. ABG, 7.43, 39, and 101. IMPRESSION: 1. Sepsis with shock. 2. Acute respiratory failure with hypoxemia and hypercapnia. 3. Urinary tract infection. 4. Hyperkalemia resolved. 5. Acute renal failure on chronic kidney disease, improved. 6. 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 7. 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 PLAN: 1. Hydrate. 2. Volume support. 3. Ventilator support. 4. Broad-spectrum antibiotics. 5. Monitor electrolytes. 6. Cardiorenal parameters. 7. DVT and stress ulcer prophylaxis. 8. Taper pressors. 9. Weaning off ventilator per sport internship. 10. No role for antiarrhythmics at this time. 11. Condition remains critical, but improving. 12. Prognosis remains guarded. Riki Francois M.D. DR: BRIONNA JOB#: [id number] CC:
[2016-11-16] VITALS (24 sets, daily range): BP systolic 109–155; BP diastolic 60–94
[2016-11-16] MEDS: Morphine Sulfate 4mg/ml Inj IVP PRN ×2 (00:53→10:45)
--- NOTE | 2016-11-16 02:46 | Consultation ---
DATE OF CONSULTATION: 11/15/2016 NEPHROLOGY CONSULTATION CONSULTING PHYSICIAN: Nhi Allen M.D. REFERRING PHYSICIAN: Luca Guerrier M.D. REASON FOR CONSULTATION: Hyperkalemia and acute renal failure. HISTORY OF PRESENT ILLNESS: This patient is an unfortunate 86-year-old male with past medical history significant for history of hypertension, history of seizure disorder, history of aortic valve replacement, history of hyperlipidemia, and history of CVA. Apparently, he presented to Urology office for evaluation of the hematuria. The patient consequently found to have hypotension, was sent by paramedics to the emergency room. In the ER, the patient was found to have blood pressure of 83/55. He also found to be altered for . The patient was intubated, admitted in intensive care unit, started on IV fluids, started on the treatment for hyperkalemia, continued to have hematuria. Urology consultation was placed. I was called for management of renal disease and electrolyte imbalance. PAST MEDICAL HISTORY: Includin. History of coronary artery bypass graft. 2. History of aortic valve replacement. 3. History of seizure disorder. 4. History of hyperlipidemia. 5. History of hypertension. 6. History of peptic ulcer disease. 7. History of gastroesophageal reflux disease. 8. History of cerebrovascular accident. 9. History of seizure. 10. History of G-tube placement. PAST SURGICAL HISTORY: History of graft and history of aortic valve replacement. HOME MEDICATIONS: Including, 1. Tylenol 650 mg q.6 hours p.r.n. pain. 2. ProStat 30 mL per G-tube. 3. Amlodipine 10 mg p.o. daily. 4. Vitamin C 500 mg daily. 5. Aspirin 325 mg daily. 6. Atorvastatin 40 mg p.o. daily. 7. Bicitra daily. 8. Colace 100 mg p.o. daily. 9. Lovenox 40 mg subcutaneously daily. 10. Epogen 7000 units subcutaneously three times a week. 11. Heparin 5000 subcutaneously every 12 hours. 12. Hydralazine 25 mg via G-tube. 13. Albuterol and Atrovent p.r.n. shortness of breath. 14. Lisinopril 5 mg via G-tube. 15. Lorazepam 5 mg as needed for anxiety. 16. Metoprolol 25 mg via G-tube. 17. Zofran 4 mg intravenous as needed nausea and vomiting. 18. Protonix 40 mg IV q.12 hours. 19. MiraLAX 17 g daily. ALLERGIES: No known drug allergies. SOCIAL HISTORY: No history of tobacco, alcohol, or drug use. The patient is intubated and unable to obtain any further history. REVIEW OF SYSTEMS: Unable to obtain due to the patient's condition and mental status. PHYSICAL EXAMINATION: VITAL SIGNS: The patient has a temperature of 98 degrees, blood pressure of 110/70, pulse rate of 88, and respiratory rate of 18. HEAD AND NECK: No JVP. No LAD. No thyromegaly. ET tube in place. Extraocular movements intact. Pupils are reactive to light and accommodation. LUNGS: Decreased breathing sounds. CARDIAC: Regular rate and rhythm. S1-S2. No murmur. No rub. ABDOMEN: Soft. G-tube is in place. EXTREMITIES: No edema. No clubbing. No cyanosis. LABORATORY AND DIAGNOSTIC DATA: Laboratory reveal a sodium 143, potassium 4, chloride 105, 25 bicarbonate, BUN of 55, creatinine of 1.8, glucose of 132, and calcium of 8.5. AST of 32, ALT of 35, and alkaline phosphatase of 79. Albumin of 2.3. Urinalysis revealed specific gravity of 1.015, protein 3+, blood 5+, nitrite positive, WBC 30 to 40, RBCs too many to count, random urine protein of 202, random urine sodium or creatinine of 17 and sodium of 132. The patient had an ultrasound of the kidney, which I ordered revealed moderate left hydronephrosis, new since last admission, bilateral increased renal echogenicity consistent with chronic renal disease, and Matson catheter balloon was not visualized within the bladder lumen due to malposition. ASSESSMENT: 1. Acute renal failure. The etiology of acute renal failure is acute tubular necrosis due to unstable hemodynamics and hypotension. 2. Obstructive uropathy. 3. Hematuria. 4. Possible chronic kidney disease. 5. Hypotension. 6. Urosepsis. 7. Anemia. PLAN: I would continue with intravenous hydration and withhold all blood pressure medications. We will bolus the patient with normal saline. Place the patient on low potassium diet. Consider Urology consultation. I would start feeding and we would consider starting renal diet, renal feeding. I would check the intakes and outputs, and scan the bladder intermittently and may need bladder flush. I would like to thank, Dr. Luca Guerrier, letting me to participate in the care of this patient. Nhi Allen M.D. DR: GUNNAR JOB#: [id number] CC:
[2016-11-16 05:10] LABS: MEAN CORPUSCULAR HEMOGLOBIN 24.3 PG (27.0-31.0); MEAN CORPUSCULAR VOLUME 81 FL (80-99); PLATELET COUNT 218 K/UL (150-450); RED BLOOD COUNT 3.17 M/UL (4.70-6.10); RED CELL DISTRIBUTION WIDTH 17.2 % (11.6-14.8); WHITE BLOOD COUNT 16.3 K/UL (4.8-10.8)
[2016-11-16 05:56] LABS: ANION GAP 14 (5-15); CALCIUM 8.7 mg/dL (8.6-10.2); CARBON DIOXIDE 25 mEQ/L (20-30); CHLORIDE 109 mEQ/L (98-107); CREATININE 1.6 mg/dL (0.7-1.2); HEMOLYSIS 0; POTASSIUM 3.6 mEQ/L (3.4-4.9); SODIUM 148 mEQ/L (135-145)
[2016-11-16 07:20] LABS: ABG BASE EXCESS 0.4
[2016-11-16 07:21] LABS: ABG ALLEN TEST POSITIVE
[2016-11-16] MEDS: Heparin 5000 units/ml inj SUBQ SCH ×2 (08:45→20:50)
[2016-11-16] MEDS: Pantoprazole Inj IVP SCH (08:45)
[2016-11-16] MEDS: Meropenem 1 GM in NS 110 ML IVPB SCH ×2 (08:57→20:48)
[2016-11-16] MEDS: Vitamin A&D Oint 2oz Tube TOPIC SCH ×2 (08:57→20:51)
--- NOTE | 2016-11-16 08:57 | General Progress Note ---
Assessment/Plan Problem List: (1) Sepsis ICD Codes: A41.9 - Sepsis, unspecified organism SNOMED: 78409151 (2) Septic shock ICD Codes: A41.9 - Sepsis, unspecified organism; R65.21 - Severe sepsis with septic shock SNOMED: 98364151 (3) Renal failure ICD Codes: N19 - Unspecified kidney failure SNOMED: 91425870 Qualifiers: Qualified Codes: N17.9 - Acute kidney failure, unspecified (4) Respiratory distress ICD Codes: R06.00 - Dyspnea, unspecified SNOMED: 043496265 (5) Pneumonia ICD Codes: J18.9 - Pneumonia, unspecified organism SNOMED: 696157938 (6) UTI (urinary tract infection) ICD Codes: N39.0 - Urinary tract infection, site not specified SNOMED: 15379638 Status: stable, progressing, tolerating diet Assessment/Plan vent abx cbc bmp am ltach eval Subjective Constitutional: Reports: weakness Allergies: Coded Allergies: No Known Allergies (Verified , 01/02/09) All Systems: reviewed and negative except above Subjective intubated sedated in icu Objective Last 24 Hour Vital Signs Date Time Temp Pulse Resp B/P Pulse Ox O2 Delivery O2 Flow Rate FiO2 11/16/16 08:00 99.2 82 22 120/66 98 Mechanical Ventilator 40 11/16/16 08:00 81 11/16/16 08:00 40 11/16/16 07:00 88 24 127/73 100 Mechanical Ventilator 40 11/16/16 06:59 82 25 40 11/16/16 06:00 81 24 120/73 100 Mechanical Ventilator 40 11/16/16 05:05 76 23 40 11/16/16 05:00 78 24 116/71 100 Mechanical Ventilator 40 11/16/16 04:00 40 11/16/16 04:00 98.4 67 19 109/60 100 Mechanical Ventilator 40 11/16/16 04:00 67 11/16/16 03:00 68 21 40 11/16/16 03:00 74 23 124/63 100 Mechanical Ventilator 40 11/16/16 02:00 67 20 121/60 100 Mechanical Ventilator 40 11/16/16 01:23 98.1 11/16/16 01:00 98.1 68 22 133/67 100 Mechanical Ventilator 40 11/16/16 00:50 72 28 40 11/16/16 00:00 76 18 143/68 100 Mechanical Ventilator 40 11/16/16 00:00 40 11/16/16 00:00 80 11/15/16 23:00 71 21 114/62 100 Mechanical Ventilator 40 11/15/16 22:53 72 23 40 11/15/16 22:00 76 28 129/65 100 Mechanical Ventilator 40 11/15/16 21:00 79 29 122/66 100 Mechanical Ventilator 50 11/15/16 20:40 68 26 40 11/15/16 20:00 98.4 68 32 116/69 100 Mechanical Ventilator 50 11/15/16 20:00 70 11/15/16 20:00 40 11/15/16 19:00 71 24 126/65 100 Mechanical Ventilator 50 11/15/16 18:50 71 27 40 11/15/16 18:00 70 24 111/63 100 Mechanical Ventilator 50 11/15/16 17:17 67 20 60 11/15/16 17:00 69 24 114/62 100 Mechanical Ventilator 50 11/15/16 16:00 60 11/15/16 16:00 69 11/15/16 16:00 98.1 70 24 110/60 100 Mechanical Ventilator 50 11/15/16 15:15 68 22 60 11/15/16 15:01 69 24 115/66 100 Mechanical Ventilator 50 11/15/16 14:00 75 22 131/61 100 Mechanical Ventilator 50 11/15/16 13:00 73 22 109/56 100 Mechanical Ventilator 50 11/15/16 12:57 72 29 60 11/15/16 12:00 70 11/15/16 12:00 97.5 68 28 106/60 100 Mechanical Ventilator 60 11/15/16 12:00 106/60 11/15/16 12:00 60 11/15/16 12:00 70 11/15/16 12:00 97.9 70 19 110/59 100 Mechanical Ventilator 60 11/15/16 11:20 70 32 60 11/15/16 11:00 72 20 118/61 100 Mechanical Ventilator 60 11/15/16 11:00 114/71 11/15/16 10:33 71 28 60 11/15/16 10:00 76 20 114/56 99 Mechanical Ventilator 60 11/15/16 10:00 95/56 11/15/16 09:00 94/57 11/15/16 09:00 76 20 109/61 100 Mechanical Ventilator 60 Intake and Output 11/15/16 11/16/16 18:59 06:59 Intake Total 1645.02 ml 1410 ml Output Total 510 ml 675 ml Balance 1135.02 ml 735 ml Intake IV Total 1645.02 ml 1410 ml Output Urine Total 510 ml 675 ml # Bowel Movements 3 Laboratory Tests 11/15/16 09:05: Lactic Acid Level 1.70 11/15/16 22:00: Urine Random Creatinine [Pending], Urine Random Microalbumin [Pending], Urine Microalbumin/Creatinine Ratio [Pending] 11/16/16 04:00: White Blood Count 16.3H, Red Blood Count 3.17L, Hemoglobin 7.7L, Hematocrit 25.7L, Mean Corpuscular Volume 81, Mean Corpuscular Hemoglobin 24.3L, Mean Corpuscular Hemoglobin Concent 30.0L, Red Cell Distribution Width 17.2H, Platelet Count 218, Mean Platelet Volume 7.0, Neutrophils (%) (Auto) , Lymphocytes (%) (Auto) , Monocytes (%) (Auto) , Eosinophils (%) (Auto) , Basophils (%) (Auto) , Neutrophils % (Manual) [Pending], Lymphocytes % (Manual) [Pending], Platelet Estimate [Pending], Platelet Morphology [Pending], Sodium Level 148H, Potassium Level 3.6, Chloride Level 109H, Carbon Dioxide Level 25, Anion Gap 14, Blood Urea Nitrogen 51H, Creatinine 1.6H, Estimat Glomerular Filtration Rate , Glucose Level 75, Calcium Level 8.7 11/16/16 07:10: Arterial Blood pH 7.410, Arterial Blood Partial Pressure CO2 40.0, Arterial Blood Partial Pressure O2 77.5, Arterial Blood HCO3 25.0, Arterial Blood Oxygen Saturation 95.1, Arterial Blood Base Excess 0.4, Librado Test Positive Height (Feet): 6 Height (Inches): 1.00 Weight (Pounds): 192 General Appearance: lethargic EENT: normal ENT inspection Neck: normal alignment Cardiovascular: normal peripheral pulses, normal rate, regular rhythm Respiratory/Chest: chest wall non-tender, lungs clear, normal breath sounds Abdomen: normal bowel sounds, non tender, soft Extremities: normal inspection Edema: no edema noted Arm (L), no edema noted Arm (R), no edema noted Leg (L), no edema noted Leg (R), no edema noted Pedal (L), no edema noted Pedal (R), no edema noted Generalized Neurologic: motor weakness Skin: normal pigmentation, warm/dry CASS YANES Nov 16, 2016 08:57
[2016-11-16 10:28] LABS: ANISOCYTOSIS 1+; BAND NEUTROPHILS % (MANUAL) 0 % (0-8); BASOPHILS % (MANUAL) 0 % (0-2); EOSINOPHILS % (MANUAL) 1 % (0-3); HYPOCHROMASIA OCCASIONAL; LYMPHOCYTES % (MANUAL) 13 % (20-45); MICROCYTES OCCASIONAL; NEUTROPHILS % (MANUAL) 85 % (45-75); PLATELET ESTIMATE ADEQUATE; PLATELET MORPHOLOGY NORMAL; TOTAL CELLS COUNTED 100
--- NOTE | 2016-11-16 11:48 | Pulmonolgy Critical Care Note ---
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 PLAN OF CARE ICU care off pressors hemodynamically stabilized ventilator support pulmonary toilet ABG stable started on weaning protocol not anticipating weaning until more awake daily CXR and ABG abx, urine cx + Providencia, blood cx + GNB, sputum cx + Staph aureus, wound cx +GNB 2 dif species ID follows cardio eval appreciated ECHO with EF 60%, RVSP of 38 c/w moderate pulmonary HTN as well as moderate MR and moderate TR IVF ,monitor renal parameters, lytes, avoid nephrotoxic nephro follows creat with small trend down renal US with moderate hydronephrosis start TF and water flushes urology eval for hematuria appreciated hematuria cleared ; further workup when stable Heparin on hold monitor HH, transfuse 1 u PRBC today Venous Duplex negative, start SCD GI prophylaxis case discussed and evaluated by supervising physician Critical Care - Objective Last 24 Hour Vital Signs Date Time Temp Pulse Resp B/P Pulse Ox O2 Delivery O2 Flow Rate FiO2 11/16/16 10:36 79 35 60 11/16/16 10:00 82 24 150/69 100 Mechanical Ventilator 40 11/16/16 09:12 80 33 40 11/16/16 09:00 80 24 111/77 100 Mechanical Ventilator 40 11/16/16 08:00 99.2 82 22 120/66 98 Mechanical Ventilator 40 11/16/16 08:00 81 11/16/16 08:00 40 11/16/16 07:00 88 24 127/73 100 Mechanical Ventilator 40 11/16/16 06:59 82 25 40 11/16/16 06:00 81 24 120/73 100 Mechanical Ventilator 40 11/16/16 05:05 76 23 40 11/16/16 05:00 78 24 116/71 100 Mechanical Ventilator 40 11/16/16 04:00 40 11/16/16 04:00 98.4 67 19 109/60 100 Mechanical Ventilator 40 11/16/16 04:00 67 11/16/16 03:00 68 21 40 11/16/16 03:00 74 23 124/63 100 Mechanical Ventilator 40 11/16/16 02:00 67 20 121/60 100 Mechanical Ventilator 40 11/16/16 01:23 98.1 11/16/16 01:00 98.1 68 22 133/67 100 Mechanical Ventilator 40 11/16/16 00:50 72 28 40 11/16/16 00:00 76 18 143/68 100 Mechanical Ventilator 40 11/16/16 00:00 40 11/16/16 00:00 80 11/15/16 23:00 71 21 114/62 100 Mechanical Ventilator 40 11/15/16 22:53 72 23 40 11/15/16 22:00 76 28 129/65 100 Mechanical Ventilator 40 11/15/16 21:00 79 29 122/66 100 Mechanical Ventilator 50 11/15/16 20:40 68 26 40 11/15/16 20:00 98.4 68 32 116/69 100 Mechanical Ventilator 50 11/15/16 20:00 70 11/15/16 20:00 40 11/15/16 19:00 71 24 126/65 100 Mechanical Ventilator 50 11/15/16 18:50 71 27 40 11/15/16 18:00 70 24 111/63 100 Mechanical Ventilator 50 11/15/16 17:17 67 20 60 11/15/16 17:00 69 24 114/62 100 Mechanical Ventilator 50 11/15/16 16:00 60 11/15/16 16:00 69 11/15/16 16:00 98.1 70 24 110/60 100 Mechanical Ventilator 50 11/15/16 15:15 68 22 60 11/15/16 15:01 69 24 115/66 100 Mechanical Ventilator 50 11/15/16 14:00 75 22 131/61 100 Mechanical Ventilator 50 11/15/16 13:00 73 22 109/56 100 Mechanical Ventilator 50 11/15/16 12:57 72 29 60 11/15/16 12:00 70 11/15/16 12:00 97.5 68 28 106/60 100 Mechanical Ventilator 60 11/15/16 12:00 106/60 11/15/16 12:00 60 11/15/16 12:00 70 11/15/16 12:00 97.9 70 19 110/59 100 Mechanical Ventilator 60 Objective: Status: sedated Condition: critical HEENT: atraumatic, normocephalic, OP with ET in place, intact Lungs: clear Heart: HR/BP stable s Abdomen: soft, non-tender, Matson with clear urine Extremities: no C/C/E, R hemiplegia Micro: Microbiology Date/Time Source Procedure Growth Status 11/14/16 11:40 Blood Blood Culture - Preliminary Gram Negative Scott Resulted 11/14/16 11:20 Blood Blood Culture - Preliminary Gram Negative Scott Resulted 11/14/16 12:27 Sputum Expectorated Gram Stain - Final Resulted 11/14/16 12:27 Sputum Culture - Preliminary Staphylococcus Aureus Resulted 11/14/16 11:40 Nasal Nares MRSA Culture - Final Staphylococcus Aureus - Mrsa Complete 11/14/16 18:30 Stool Clostridium difficile Toxin Assay - Final Complete 11/14/16 11:20 Indwelling Cath Urine Culture - Preliminary Providencia Stuartii Resulted 11/14/16 18:00 Sacral Wound Gram Stain - Final Resulted 11/14/16 18:00 Wound Culture - Preliminary Gram Negative Bacillus 1 Gram Negative Bacillus 2 Resulted 11/14/16 11:40 Rectum VRE Culture - Final Enterococcus Faecalis - Vre Complete Critical Care - Subjective ROS Limited/Unobtainable: Yes Interval Events: leukocytosis trending down, afebrile ABG this am stable on current settings off Levophed HH down to 7.7/25.7 Creat trending down hematuria cleared Condition: critical EKG Rhythm: Sinus Rhythm FI02: 60 Vent Support Breath Rate: 12 Vent Support Mode: IMV/SIMV Vent Tidal Volume: 500 Sputum Amount: Small PEEP: 0.0 PIP: 13 Fluids: NS at 100 I&O: Intake and Output 11/15/16 11/16/16 19:00 07:00 Intake Total 1599.30 ml 1410 ml Output Total 480 ml 685 ml Balance 1119.30 ml 725 ml Intake IV Total 1599.30 ml 1410 ml Output Urine Total 480 ml 685 ml # Bowel Movements 3 CXR: 11/15 Slightly improved basilar pulmonary atelectasis. 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
[2016-11-16] MEDS: Vancomycin 1 GM in D5W 275 ML IVPB SCH (12:00)
--- NOTE | 2016-11-16 14:58 | Infectious Diseases Prog Note ---
Assessment/Plan Problems: (1) HCAP (healthcare-associated pneumonia) Assessment & Plan: present on admission, with staph aureus , already on vancomycin and meropenem, will treat for 7-10 days (2) Septic shock Assessment & Plan: with gram negative rods, suspect source is UTI , complicated with respiratory failure, on meropenem and vancomycin , monitor blood culture (3) Respiratory distress Assessment & Plan: due to the above, S/P intubation, continue mechanical ventilation, monitor ABG, titrate oxygen as needed (4) UTI (urinary tract infection) Assessment & Plan: with Providencia stuartii most likely the source of his sepsis, meropenem for now ,pending blood culture results (5) Hyperkalemia Assessment & Plan: suspect due to renal failure, recommend renal consult, for further management (6) Renal failure Assessment & Plan: continue hydration, avoid nephrotoxic meds (7) Hydronephrosis of left kidney Assessment & Plan: with hematuria, unclear whether his ureter is obstructed, recommend urology eval for possible cystoscopy Subjective ROS Limited/Unobtainable: Yes Allergies: Coded Allergies: No Known Allergies (Verified , 01/02/09) Subjective he is intubated on mechanical ventilation, comfortable, not in distress, off pressors, getting blood transfusion, afebrile Objective Vital Signs Last 24 Hour Vital Signs Date Time Temp Pulse Resp B/P Pulse Ox O2 Delivery O2 Flow Rate FiO2 11/16/16 14:00 98.7 69 22 147/73 100 Mechanical Ventilator 40 11/16/16 13:10 98.9 11/16/16 13:10 78 27 60 11/16/16 13:00 98.9 75 23 152/77 100 Mechanical Ventilator 40 11/16/16 12:00 79 11/16/16 12:00 99.2 78 22 139/81 100 Mechanical Ventilator 40 11/16/16 12:00 40 11/16/16 11:15 99.2 11/16/16 11:00 85 25 140/74 100 Mechanical Ventilator 40 11/16/16 11:00 40 11/16/16 10:36 79 35 60 11/16/16 10:00 82 24 150/69 100 Mechanical Ventilator 40 11/16/16 09:12 80 33 40 11/16/16 09:00 80 24 111/77 100 Mechanical Ventilator 40 11/16/16 08:00 99.2 82 22 120/66 98 Mechanical Ventilator 40 11/16/16 08:00 81 11/16/16 08:00 40 11/16/16 07:00 88 24 127/73 100 Mechanical Ventilator 40 11/16/16 06:59 82 25 40 11/16/16 06:00 81 24 120/73 100 Mechanical Ventilator 40 11/16/16 05:05 76 23 40 11/16/16 05:00 78 24 116/71 100 Mechanical Ventilator 40 11/16/16 04:00 40 11/16/16 04:00 98.4 67 19 109/60 100 Mechanical Ventilator 40 11/16/16 04:00 67 11/16/16 03:00 68 21 40 11/16/16 03:00 74 23 124/63 100 Mechanical Ventilator 40 11/16/16 02:00 67 20 121/60 100 Mechanical Ventilator 40 11/16/16 01:00 98.1 68 22 133/67 100 Mechanical Ventilator 40 11/16/16 00:50 72 28 40 11/16/16 00:00 76 18 143/68 100 Mechanical Ventilator 40 11/16/16 00:00 40 11/16/16 00:00 80 11/15/16 23:00 71 21 114/62 100 Mechanical Ventilator 40 11/15/16 22:53 72 23 40 11/15/16 22:00 76 28 129/65 100 Mechanical Ventilator 40 11/15/16 21:00 79 29 122/66 100 Mechanical Ventilator 50 11/15/16 20:40 68 26 40 11/15/16 20:00 98.4 68 32 116/69 100 Mechanical Ventilator 50 11/15/16 20:00 70 11/15/16 20:00 40 11/15/16 19:00 71 24 126/65 100 Mechanical Ventilator 50 11/15/16 18:50 71 27 40 11/15/16 18:00 70 24 111/63 100 Mechanical Ventilator 50 11/15/16 17:17 67 20 60 11/15/16 17:00 69 24 114/62 100 Mechanical Ventilator 50 11/15/16 16:00 60 11/15/16 16:00 69 11/15/16 16:00 98.1 70 24 110/60 100 Mechanical Ventilator 50 11/15/16 15:15 68 22 60 11/15/16 15:01 69 24 115/66 100 Mechanical Ventilator 50 Height (Feet): 6 Height (Inches): 1.00 Weight (Pounds): 192 General Appearance: WD/WN, no acute distress HEENT: normocephalic, atraumatic, anicteric, mucous membranes moist Respiratory/Chest: chest wall non-tender, lungs clear, normal breath sounds, no respiratory distress, no accessory muscle use Cardiovascular: normal peripheral pulses, normal rate, regular rhythm, no gallop/murmur, no JVD Abdomen: normal bowel sounds, soft, non tender, no organomegaly, non distended , no mass, no scars Extremities: no cyanosis, no clubbing Skin: no rash, no lesions, ulcers Microbiology Date/Time Source Procedure Growth Status 11/14/16 11:40 Blood Blood Culture - Preliminary Gram Negative Scott Resulted 11/14/16 11:20 Blood Blood Culture - Preliminary Gram Negative Scott Resulted 11/14/16 12:27 Sputum Expectorated Gram Stain - Final Resulted 11/14/16 12:27 Sputum Culture - Preliminary Staphylococcus Aureus Resulted 11/14/16 11:40 Nasal Nares MRSA Culture - Final Staphylococcus Aureus - Mrsa Complete 11/14/16 18:30 Stool Clostridium difficile Toxin Assay - Final Complete 11/14/16 11:20 Indwelling Cath Urine Culture - Preliminary Providencia Stuartii Resulted 11/14/16 18:00 Sacral Wound Gram Stain - Final Resulted 11/14/16 18:00 Wound Culture - Preliminary Gram Negative Bacillus 1 Gram Negative Bacillus 2 Resulted 11/14/16 11:40 Rectum VRE Culture - Final Enterococcus Faecalis - Vre Complete Laboratory Tests Test 11/15/16 22:00 11/16/16 04:00 11/16/16 07:10 Urine Random Creatinine Pending Urine Random Microalbumin Pending Urine Microalbumin/Creatinine Ratio Pending White Blood Count 16.3 K/UL (4.8-10.8) H Red Blood Count 3.17 M/UL (4.70-6.10) L Hemoglobin 7.7 G/DL (14.2-18.0) L Hematocrit 25.7 % (42.0-52.0) L Mean Corpuscular Volume 81 FL (80-99) Mean Corpuscular Hemoglobin 24.3 PG (27.0-31.0) L Mean Corpuscular Hemoglobin Concent 30.0 G/DL (32.0-36.0) L Red Cell Distribution Width 17.2 % (11.6-14.8) H Platelet Count 218 K/UL (150-450) Mean Platelet Volume 7.0 FL (6.5-10.1) Neutrophils (%) (Auto) % (45.0-75.0) Lymphocytes (%) (Auto) % (20.0-45.0) Monocytes (%) (Auto) % (1.0-10.0) Eosinophils (%) (Auto) % (0.0-3.0) Basophils (%) (Auto) % (0.0-2.0) Differential Total Cells Counted 100 Neutrophils % (Manual) 85 % (45-75) H Lymphocytes % (Manual) 13 % (20-45) L Monocytes % (Manual) 1 % (1-10) Eosinophils % (Manual) 1 % (0-3) Basophils % (Manual) 0 % (0-2) Band Neutrophils 0 % (0-8) Platelet Estimate Adequate Platelet Morphology Normal Hypochromasia Occasional Anisocytosis 1+ Microcytosis Occasional Sodium Level 148 mEQ/L (135-145) H Potassium Level 3.6 mEQ/L (3.4-4.9) Chloride Level 109 mEQ/L (98-107) H Carbon Dioxide Level 25 mEQ/L (20-30) Anion Gap 14 (5-15) Blood Urea Nitrogen 51 mg/dL (7-23) H Creatinine 1.6 mg/dL (0.7-1.2) H Estimat Glomerular Filtration Rate mL/min (>60) Glucose Level 75 mg/dL (74-106) Calcium Level 8.7 mg/dL (8.6-10.2) Arterial Blood pH 7.410 (7.350-7.450) Arterial Blood Partial Pressure CO2 40.0 mmHg (35.0-45.0) Arterial Blood Partial Pressure O2 77.5 mmHg (75.0-100.0) Arterial Blood HCO3 25.0 mmol/L (22.0-26.0) Arterial Blood Oxygen Saturation 95.1 % (92.0-98.0) Arterial Blood Base Excess 0.4 Lirbado Test Positive Current Medications Medications (Trade) Dose Ordered Sig/Keira Route PRN Reason Start Time Stop Time Status Last Admin Dose Admin Acetaminophen (Tylenol) 650 mg Q4H PRN ORAL fever 11/14/16 18:00 12/14/16 17:59 11/16/16 12:15 Albuterol/ Ipratropium (DuoNeb 0.5-3(2.5)mg/3ml) 3 ml EVERY 4 HOURS PRN HHN Shortness of Breath 11/14/16 17:00 11/19/16 16:59 Chlorhexidine Gluconate (Michelle-Hex 2%) 1 applic QHS TOPIC 11/15/16 21:00 12/15/16 20:59 11/15/16 20:32 Heparin Sodium (Porcine) (Heparin 5000 units/ml) 5,000 units EVERY 12 HOURS SUBQ 11/15/16 21:00 12/15/16 20:59 Heparin Sodium/ Sodium Chloride (Heparin 2000 units/Ns 1000ml premix) 2,000 unit ONCE INJ 11/15/16 15:00 11/16/16 23:59 Lidocaine HCl (Xylocaine 1% 30ml) 30 ml ONCE INJ 11/15/16 15:00 11/16/16 23:59 Lorazepam (Ativan 2mg/ml 1ml) 2 mg EVERY 2 HOURS PRN IV For Anxiety 11/14/16 16:00 11/21/16 15:59 11/15/16 20:17 Meropenem/Sodium Chloride (Merrem/Sodium Chloride) 110 ml @ 220 mls/hr Q12HR IVPB 11/15/16 09:00 11/20/16 08:59 11/16/16 08:57 Morphine Sulfate (Morphine Sulfate) 4 mg EVERY 4 HOURS PRN IVP Severe Pain (Pain Scale 7-10) 11/14/16 17:00 11/21/16 16:59 11/16/16 10:45 Ondansetron HCl (Zofran) 4 mg Q6H PRN IVP Nausea & Vomiting 11/14/16 20:00 12/14/16 19:59 Pantoprazole (Protonix) 40 mg DAILY IVP 11/15/16 09:00 12/15/16 08:59 11/16/16 08:45 Polyethylene Glycol 17 gm 17 gm DAILYPRN PRN ORAL Constipation 11/15/16 14:00 12/15/16 13:59 Sodium Chloride 1,000 ml @ 100 mls/hr Q10H IVLG 11/14/16 17:00 12/14/16 16:59 11/16/16 08:45 Vancomycin HCl/ Dextrose (Vancomycin/D5W) 275 ml @ 183.3 mls/ hr Q24H IVPB 11/15/16 12:00 11/20/16 11:59 11/16/16 12:00 Vitamin A/Vitamin D (A & D Oint) 1 applic EVERY 12 HOURS TOPIC 11/15/16 21:00 12/15/16 20:59 11/16/16 08:57 Julianna Trejo M.D. Nov 16, 2016 14:58
--- NOTE | 2016-11-16 15:16 | Consultation ---
DATE OF CONSULTATION: 11/16/2016 UROLOGY CONSULTATION ATTENDING/CONSULTING PHYSICIAN: Luca Guerrier D.O. CHIEF COMPLAINT/HISTORY OF PRESENT ILLNESS: I was asked by Dr. Guerrier, to evaluate this 86-year-old gentleman regarding some gross hematuria at the time of catheter change here in the hospital. Briefly, the patient was apparently on his way to see a specialist to evaluate gross hematuria. He suffered an episode of respiratory distress. He has an underlying history of heart disease and was brought to the hospital here and noted to be hypotensive. He was intubated and sedated and placed in the ICU for further management. A Matson catheter was changed out here in the hospital and the patient was noted to have some blood clots at that time. As such, I was asked to evaluate the patient. The patient is intubated and sedated, he cannot provide any information. Most of the information is gathered from the chart. PAST MEDICAL HISTORY: 1. Coronary artery disease. 2. Seizure disorder. 3. Hypertension. 4. Hyperlipidemia. 5. Hematuria. 6. Peptic ulcer disease. 7. GERD. 8. CVA. 9. Vertigo. 10. Muscle weakness. PAST SURGICAL HISTORY: 1. CABG x3. 2. Aortic valve replacement surgery. MEDICATIONS: Please see the chart for current medications administration details. ALLERGIES: No known drug allergies. SOCIAL HISTORY: Unremarkable for tobacco, alcohol, or drug use per the chart. The patient lives in a nursing facility. FAMILY HISTORY: Unavailable. REVIEW OF SYSTEMS: Unavailable as the patient is intubated and sedated. PHYSICAL EXAMINATION: GENERAL: The patient is an elderly gentleman, intubated, sedated, in no obvious distress. HEENT: NC/AT. Oropharynx, intubated. NECK: Supple. CHEST: Within normal limits. ABDOMEN: Soft, flat, nontender, and nondistended. EXTREMITIES: Warm and well perfused. No cyanosis, clubbing, or edema. BACK: No apparent CVA tenderness. NEUROLOGIC: Deferred as the patient cannot cooperate with the exam. GENITOURINARY: Reveals an uncircumcised male phallus with a Matson catheter in place. There is clear yellow urine output. There are bilateral descended testes and cord structures with no masses or tenderness to palpation. LABORATORY DATA: White blood cell count is 16.3, hematocrit 25.7, and platelets 218,000. PT 12.6, INR 1.2, and PTT 29. Sodium 148, potassium 3.6, chloride 109, bicarbonate 25, BUN 51, creatinine 1.6, glucose 75, and calcium 8.7. Urinalysis initially specific gravity 1.015, pH 8.0. Dip test notable for positive nitrites, 5+ occult blood, and 3+ leukocyte esterase. Microanalysis with too numerous to count red blood cells per high-power field, 30 to 40 white blood cells per high-power field, and moderate bacteria seen. Urine culture with Providencia stuartii greater than 100,000 colonies with multiple resistances. The patient is receiving cefepime and vancomycin for antibiotic coverage. DIAGNOSTIC IMAGING: Renal ultrasound with moderate left hydronephrosis new since August 2016, etiology not demonstrated. There is bilateral increased renal echogenicity consistent with medical renal disease. The Matson catheter balloon is not visualized within the bladder lumen. There is a thick-walled bladder. There is an incidental left renal cyst. ASSESSMENT AND PLAN: In summary, the patient is an 86-year-old gentleman with a history of apparent hematuria. He was on his way to see a urologist for evaluation of same, when he did develop acute shortness of breath and respiratory distress. He was brought to the hospital where he was found to have hypertension and respiratory distress. He was intubated, sedated, and placed on supportive care in the ICU. His Matson was changed and he was noted to have some gross hematuria at that time. Physical exam now reveals a catheter in place with clear yellow urine output. Laboratory data is notable for evidence of urinary tract infection on culture, which is being treated with broad-spectrum antibiotics. Diagnostic imaging reveals left-sided hydronephrosis without any clear etiology as to why it is present and a thick-walled bladder. The patient's hematuria has improved and has resolved likely secondary to placement on antibiotics. He may have been suffering hematuria secondary to urinary tract infection. Of note, the patient is also receiving subcutaneous heparin, which I would recommend be held if possible given his recent bleeding. I would defer further evaluation of the hydronephrosis at this time given his overall clinical picture and current situation. If the patient later improves, he could have further evaluation for the same and eventually complete his workup for hematuria. Thank you for allowing me to participate in the care of this unfortunate gentleman. Please do not hesitate to contact me with any questions that you may further have regarding his care. I will be happy to see him with you as needed. Kevin Gamble M.D. DR: ANTONIA JOB#: [id number] CC:
[2016-11-16] MEDS ORDERED: Heparin 2000 units/Ns 1000ml INJ PRN (15:30)
[2016-11-16] MEDS ORDERED: Lidocaine 1% Plain 30 ml INJ PRN (16:00)
[2016-11-16] MEDS: Dyna-Hex 2% Top Sol 8oz TOPIC SCH (20:51)
--- NOTE | 2016-11-16 22:25 | Consultation ---
History of Present Illness General Date patient seen: Nov 16, 2016 Chief Complaint: Dyspnea/Respdistress Present Illness Allergies: Coded Allergies: No Known Allergies (Verified , 01/02/09) Medication History Scheduled Acetaminophen (Acetaminophen), 650 MG GT EVERY 4 HOURS, (Reported) Amino Acids/Protein Hydrolys (Pro-Stat Liquid), 30 ML GT DAILY, (Reported) Amlodipine Besylate* (Amlodipine Besylate*), 10 MG GT DAILY, (Reported) Ascorbic Acid* (Vitamin C*), 500 MG GT DAILY, (Reported) Aspirin* (Aspirin*), 325 MG GT DAILY, (Reported) Atorvastatin Calcium* (Atorvastatin Calcium*), 40 MG GT BEDTIME, (Reported) Bacitracin Zinc (Bacitracin Zinc), 1 APPLIC TP THREE TIMES A DAY, (Reported) Docusate Sodium* (Colace*), 100 MG GT DAILY, (Reported) Enoxaparin* (Lovenox*), 40 MG SUBQ DAILY, (Reported) Epoetin Sathish (Epogen), 7,000 UNIT SUBQ 3XW, (Reported) Heparin Sod (Porcine) (Heparin Sodium*), 5,000 UNITS SUBQ EVERY 12 HOURS, ( Reported) Hydralazine HCl (Hydralazine HCl), 25 MG GT Q8HR, (Reported) Lisinopril* (Lisinopril*), 40 MG GT DAILY, (Reported) Lorazepam (Lorazepam), 1 MG IV Q4H, (Reported) Metoprolol Tartrate* (Metoprolol Tartrate*), 25 MG GT EVERY 12 HOURS, (Reported) Pantoprazole* (Protonix*), 40 MG IVP EVERY 12 HOURS, (Reported) Tamsulosin HCl (Flomax), 0.8 MG GT DAILY, (Reported) Zinc Sulfate (Zinc Sulfate*), 220 MG GT DAILY, (Reported) Scheduled PRN Ipratropium Meridian 0.5MG/2.5ML (Ipratropium Meridian 0.5MG/2.5ML), 0.5 MG HHN Q4HR PRN for Shortness of Breath, (Reported) Ondansetron* (Zofran*), 4 MG IV Q6H PRN for Nausea & Vomiting, (Reported) Polyethylene Glycol 3350* (Miralax*), 17 GM ORAL DAILY PRN for Constipation, ( Reported) Miscellaneous Medications [d5w 50c 3d] Discontinued Medications Levofloxacin* (Levaquin*), 500 MG ORAL DAILY, (Reported) Discontinued Reason: Therapy completed Linezolid (Linezolid), 600 MG PO Q12HR, (Reported) Discontinued Reason: Therapy completed Pantoprazole* (Pantoprazole*), 40 MG IVP Q12HR, (Reported) Discontinued Reason: Therapy completed Patient History Healthcare decision maker Resuscitation status Full Code Advanced Directive on File Physical Exam Last 24 Hour Vital Signs Date Time Temp Pulse Resp B/P Pulse Ox O2 Delivery O2 Flow Rate FiO2 11/16/16 22:00 73 20 138/94 97 Mechanical Ventilator 40 11/16/16 21:00 74 20 145/74 100 Mechanical Ventilator 40 11/16/16 20:52 72 25 40 11/16/16 20:00 97.7 69 14 150/72 100 Mechanical Ventilator 40 11/16/16 20:00 73 11/16/16 20:00 40 11/16/16 19:00 72 14 152/82 100 Mechanical Ventilator 40 11/16/16 18:33 69 27 40 11/16/16 18:00 71 22 150/76 100 Mechanical Ventilator 40 11/16/16 17:08 66 32 40 11/16/16 17:00 68 22 142/80 98 Mechanical Ventilator 40 11/16/16 16:00 98.7 69 24 138/69 100 Mechanical Ventilator 40 11/16/16 16:00 40 11/16/16 16:00 71 11/16/16 15:23 73 37 40 11/16/16 15:00 70 20 150/77 98 Mechanical Ventilator 40 11/16/16 14:00 98.7 69 22 147/73 100 Mechanical Ventilator 40 11/16/16 13:10 98.9 11/16/16 13:10 78 27 60 11/16/16 13:00 98.9 75 23 152/77 100 Mechanical Ventilator 40 11/16/16 12:00 79 11/16/16 12:00 99.2 78 22 139/81 100 Mechanical Ventilator 40 11/16/16 12:00 40 11/16/16 11:15 99.2 11/16/16 11:00 85 25 140/74 100 Mechanical Ventilator 40 11/16/16 11:00 40 11/16/16 10:36 79 35 60 11/16/16 10:00 82 24 150/69 100 Mechanical Ventilator 40 11/16/16 09:12 80 33 40 11/16/16 09:00 80 24 111/77 100 Mechanical Ventilator 40 11/16/16 08:00 99.2 82 22 120/66 98 Mechanical Ventilator 40 11/16/16 08:00 81 11/16/16 08:00 40 11/16/16 07:00 88 24 127/73 100 Mechanical Ventilator 40 11/16/16 06:59 82 25 40 11/16/16 06:00 81 24 120/73 100 Mechanical Ventilator 40 11/16/16 05:05 76 23 40 11/16/16 05:00 78 24 116/71 100 Mechanical Ventilator 40 11/16/16 04:00 40 11/16/16 04:00 98.4 67 19 109/60 100 Mechanical Ventilator 40 11/16/16 04:00 67 11/16/16 03:00 68 21 40 11/16/16 03:00 74 23 124/63 100 Mechanical Ventilator 40 11/16/16 02:00 67 20 121/60 100 Mechanical Ventilator 40 11/16/16 01:00 98.1 68 22 133/67 100 Mechanical Ventilator 40 11/16/16 00:50 72 28 40 11/16/16 00:00 76 18 143/68 100 Mechanical Ventilator 40 11/16/16 00:00 40 11/16/16 00:00 80 11/15/16 23:00 71 21 114/62 100 Mechanical Ventilator 40 11/15/16 22:53 72 23 40 Intake and Output 11/15/16 11/16/16 19:00 07:00 Intake Total 1599.30 ml 1410 ml Output Total 480 ml 685 ml Balance 1119.30 ml 725 ml IV Total 1599.30 ml 1410 ml Output Urine Total 480 ml 685 ml # Bowel Movements 3 Laboratory Tests Test 11/16/16 04:00 11/16/16 07:10 White Blood Count 16.3 K/UL (4.8-10.8) H Red Blood Count 3.17 M/UL (4.70-6.10) L Hemoglobin 7.7 G/DL (14.2-18.0) L Hematocrit 25.7 % (42.0-52.0) L Mean Corpuscular Volume 81 FL (80-99) Mean Corpuscular Hemoglobin 24.3 PG (27.0-31.0) L Mean Corpuscular Hemoglobin Concent 30.0 G/DL (32.0-36.0) L Red Cell Distribution Width 17.2 % (11.6-14.8) H Platelet Count 218 K/UL (150-450) Mean Platelet Volume 7.0 FL (6.5-10.1) Neutrophils (%) (Auto) % (45.0-75.0) Lymphocytes (%) (Auto) % (20.0-45.0) Monocytes (%) (Auto) % (1.0-10.0) Eosinophils (%) (Auto) % (0.0-3.0) Basophils (%) (Auto) % (0.0-2.0) Differential Total Cells Counted 100 Neutrophils % (Manual) 85 % (45-75) H Lymphocytes % (Manual) 13 % (20-45) L Monocytes % (Manual) 1 % (1-10) Eosinophils % (Manual) 1 % (0-3) Basophils % (Manual) 0 % (0-2) Band Neutrophils 0 % (0-8) Platelet Estimate Adequate Platelet Morphology Normal Hypochromasia Occasional Anisocytosis 1+ Microcytosis Occasional Sodium Level 148 mEQ/L (135-145) H Potassium Level 3.6 mEQ/L (3.4-4.9) Chloride Level 109 mEQ/L (98-107) H Carbon Dioxide Level 25 mEQ/L (20-30) Anion Gap 14 (5-15) Blood Urea Nitrogen 51 mg/dL (7-23) H Creatinine 1.6 mg/dL (0.7-1.2) H Estimat Glomerular Filtration Rate mL/min (>60) Glucose Level 75 mg/dL (74-106) Calcium Level 8.7 mg/dL (8.6-10.2) Arterial Blood pH 7.410 (7.350-7.450) Arterial Blood Partial Pressure CO2 40.0 mmHg (35.0-45.0) Arterial Blood Partial Pressure O2 77.5 mmHg (75.0-100.0) Arterial Blood HCO3 25.0 mmol/L (22.0-26.0) Arterial Blood Oxygen Saturation 95.1 % (92.0-98.0) Arterial Blood Base Excess 0.4 Librado Test Positive Height (Feet): 6 Height (Inches): 1.00 Weight (Pounds): 192 Medications Current Medications Medications (Trade) Dose Ordered Sig/Keira Route PRN Reason Start Time Stop Time Status Last Admin Dose Admin Acetaminophen (Tylenol) 650 mg Q4H PRN ORAL fever 11/14/16 18:00 12/14/16 17:59 11/16/16 12:15 Albuterol/ Ipratropium (DuoNeb 0.5-3(2.5)mg/3ml) 3 ml EVERY 4 HOURS PRN HHN Shortness of Breath 11/14/16 17:00 11/19/16 16:59 Chlorhexidine Gluconate (Michelle-Hex 2%) 1 applic QHS TOPIC 11/15/16 21:00 12/15/16 20:59 11/16/16 20:51 Heparin Sodium (Porcine) (Heparin 5000 units/ml) 5,000 units EVERY 12 HOURS SUBQ 11/15/16 21:00 12/15/16 20:59 11/16/16 20:50 Heparin Sodium/ Sodium Chloride (Heparin 2000 units/Ns 1000ml premix) 2,000 unit ONCE PRN INJ PICC LINE PLACEMENT 11/16/16 15:30 11/18/16 23:59 Lidocaine HCl (Xylocaine 1% 30ml) 30 ml ONCE PRN INJ PICC PLACEMENT 11/16/16 16:00 11/18/16 23:59 Lorazepam (Ativan 2mg/ml 1ml) 2 mg EVERY 2 HOURS PRN IV For Anxiety 11/14/16 16:00 11/21/16 15:59 11/15/16 20:17 Meropenem/Sodium Chloride (Merrem/Sodium Chloride) 110 ml @ 220 mls/hr Q12HR IVPB 11/15/16 09:00 11/20/16 08:59 11/16/16 20:48 Morphine Sulfate (Morphine Sulfate) 4 mg EVERY 4 HOURS PRN IVP Severe Pain (Pain Scale 7-10) 11/14/16 17:00 11/21/16 16:59 11/16/16 10:45 Ondansetron HCl (Zofran) 4 mg Q6H PRN IVP Nausea & Vomiting 11/14/16 20:00 12/14/16 19:59 Pantoprazole (Protonix) 40 mg DAILY IVP 11/15/16 09:00 12/15/16 08:59 11/16/16 08:45 Polyethylene Glycol 17 gm 17 gm DAILYPRN PRN ORAL Constipation 11/15/16 14:00 12/15/16 13:59 Sodium Chloride 1,000 ml @ 100 mls/hr Q10H IVLG 11/14/16 17:00 12/14/16 16:59 11/16/16 19:41 Vancomycin HCl/ Dextrose (Vancomycin/D5W) 275 ml @ 183.3 mls/ hr Q24H IVPB 11/15/16 12:00 11/20/16 11:59 11/16/16 12:00 Vitamin A/Vitamin D (A & D Oint) 1 applic EVERY 12 HOURS TOPIC 11/15/16 21:00 12/15/16 20:59 11/16/16 20:51 Assessment/Plan Assessment/Plan (1) Respiratory distress (2) Incubated on Ventilator (3) Septic Shock (4) Sacral decubitus ulcer Seen dictated AMMY LEMOS Nov 16, 2016 22:25
[2016-11-16] MEDS ORDERED: Hydromorphone 0.5mg/0.5ml inj IVP PRN (22:30)
--- NOTE | 2016-11-16 23:02 | Progress Note ---
DATE: 11/16/2016 CARDIOLOGY PROGRESS NOTE: SUBJECTIVE: The patient remains in the intensive care unit. Condition remains critical without any diagnosis. The patient's blood pressure has improved. He is off pressors. Monitored rhythm now sinus with sinus tachycardia and atrial ectopics. OBJECTIVE: GENERAL: Orally intubated. Bilateral breath sounds. Poorly responsive. VITAL SIGNS: Blood pressure is 150/69, heart rate 82, and respiratory rate 24 to 35. HEART: Regular rhythm and rate. Normal S1 and S2. A 1/6 systolic murmur at apex. ABDOMEN: Soft and nontender. No edema. DIAGNOSTIC DATA: Echocardiogram is notable for moderate mitral and tricuspid regurgitation. Mild pulmonary hypertension with PA pressure of 38 mmHg and normal ejection fraction. Venous Duplex is negative for DVT. LABORATORY DATA: White count is 16 and hemoglobin 7.7. Sodium is 148, potassium 3.6, bicarbonate 25, BUN 51, and creatinine 1.6. IMPRESSION: 1. Sepsis shock. 2. Hypovolemia. 3. Dehydration. 4. Hypernatremia. 5. Acute myocardial ischemia. 6. Acute renal failure. 7. Acute respiratory failure with hypoxia and hypercarbia. 8. Pulmonary hypertension. 9. Degenerative valve disease with regurgitation. PLAN: 1. Continue hydration with IV fluids. 2. Avoid resuming pressors. 3. Broad-spectrum antibiotic. 4. Ventilator support, not weanable at this time. 5. Monitor volume status and cardiorenal parameters. 6. No role for antiarrhythmics presently. 7. Remains critical and guarded. Riki Francois M.D. DR: Linda JOB#: [id number] CC:
[2016-11-17] VITALS (24 sets, daily range): BP systolic 0–171; BP diastolic 77–105
[2016-11-17 05:43] LABS: BASOPHILS % (AUTO) 0.2 % (0.0-2.0); EOSINOPHILS % (AUTO) 2.5 % (0.0-3.0); LYMPHOCYTES % (AUTO) 9.7 % (20.0-45.0); MEAN CORPUSCULAR HEMOGLOBIN 24.7 PG (27.0-31.0); MEAN CORPUSCULAR HGB CONC 30.4 G/DL (32.0-36.0); MEAN CORPUSCULAR VOLUME 81 FL (80-99); MEAN PLATELET VOLUME 7.2 FL (6.5-10.1); MONOCYTES % (AUTO) 2.9 % (1.0-10.0); NEUTROPHILS % (AUTO) 84.7 % (45.0-75.0); PLATELET COUNT 231 K/UL (150-450); RED BLOOD COUNT 3.86 M/UL (4.70-6.10); RED CELL DISTRIBUTION WIDTH 17.3 % (11.6-14.8); WHITE BLOOD COUNT 17.7 K/UL (4.8-10.8)
[2016-11-17 06:45] LABS: ANION GAP 11 (5-15); CALCIUM 9.1 mg/dL (8.6-10.2); CARBON DIOXIDE 26 mEQ/L (20-30); CHLORIDE 112 mEQ/L (98-107); CREATININE 1.4 mg/dL (0.7-1.2); HEMOLYSIS 4; POTASSIUM 3.4 mEQ/L (3.4-4.9); SODIUM 149 mEQ/L (135-145)
[2016-11-17] MEDS: Pantoprazole Inj IVP SCH (08:39)
[2016-11-17] MEDS: Meropenem 1 GM in NS 110 ML IVPB SCH (08:39)
[2016-11-17] MEDS: Vitamin A&D Oint 2oz Tube TOPIC SCH ×2 (08:40→20:38)
[2016-11-17] MEDS: Heparin 5000 units/ml inj SUBQ SCH ×2 (08:41→20:40)
[2016-11-17] MEDS: LORazepam Inj 2mg/ml 1ml IV PRN ×2 (09:12→21:33)
--- NOTE | 2016-11-17 09:16 | Consultation ---
DATE OF CONSULTATION: 11/16/2016 CONSULTING PHYSICIAN: Reynaldo Rodríguez M.D. REFERRING PHYSICIAN: Luca Guerrier D.O. PHYSICIAN METAL LOADER: Bettie Rick HISTORY OF PRESENT ILLNESS: This is an 86-year-old male who has been seen on the ICU of [facility] for initial pain management consultation. The patient was admitted under the care of Dr. Guerrier in the ICU for respiratory distress and hypotension, found to have UTI, now admitted due to respiratory distress and unable to obtain any history from the patient; however, history is obtained from the chart and the nurse. The patient again is intubated on the ventilator. No signs of distress or pain at this time. Nurse reports the patient has a history of CVA, bedbound, current contractures in the lower extremity with decubitus ulcer in the sacral area. The patient was started on morphine 4 mg IV every four hours as needed for severe pain. The patient has kidney dysfunction. PAST MEDICAL HISTORY: CAD, seizure disorder, hypertension, hyperlipidemia, hematuria, peptic ulcer disease, GERD, CVA, vertigo, and muscle weakness. PAST SURGICAL HISTORY: CABG and aortic valve replacement surgery. MEDICATIONS: Acetaminophen, ProStat, amlodipine, vitamin C, aspirin, atorvastatin, Bactrim, Colace, Lovenox, Epogen, heparin, hydralazine, lisinopril, lorazepam, metoprolol, Protonix, Flomax, zinc, ipratropium, Zofran, and MiraLax. ALLERGIES: No known drug allergies. SOCIAL HISTORY: As per chart. Unremarkable for tobacco, alcohol, or drug abuse. REVIEW OF SYSTEMS: Unable to obtain due to the patient's current condition. PHYSICAL EXAMINATION: VITAL SIGNS: Blood pressure 138/94, heart rate is 73, oxygen saturation 98%, respiratory rate is 20, and temperature is 97.7 degrees Fahrenheit. Height is 6 feet 1 inches and weight is 98 pounds. HEENT: Intubated. LUNGS: Decreased breath sounds bilaterally. HEART: S1 and S2 regular. ABDOMEN: G-tube noted. EXTREMITIES: Degenerative joint disease noted in the lower extremity. ASSESSMENT AND PLAN: This is an 86-year-old male with respiratory distress, intubated, on ventilator, septic shock, and sacral decubitus ulcer. The patient will be discontinued on morphine and started on Dilaudid 0.5 mg IV every four hours as needed for severe pain. The patient was discussed with Dr. Rodríguez and Dr. Rodríguez concurred. We will follow the patient. Thank you very much for the courtesy of this consultation. Reynaldo Rodríguez M.D. JAZZMINE Rick DR: GOYO JOB#: [id number] CC: SHIRA
--- NOTE | 2016-11-17 09:19 | Diagnostic Imaging Report ---
Indication: Dyspnea Comparison: 11/15/16 A single view chest radiograph was obtained. Findings: Mild vascular congestion suspected. Right perihilar infiltrate not excluded. Basilar atelectasis and low lung volumes again noted. Endotracheal tube is in good position. Impression: Suspected mild CHF. Possible right perihilar infiltrate. Suggest followup.
--- NOTE | 2016-11-17 09:28 | Pulmonolgy Critical Care Note ---
Critical Care - Asmt/Plan Assessment/Plan: ASSESSMENT acute hypoxemic hypercapnic respiratory failure requiring intubation septic shock sepsis with bacteremia bacteremia with gram negative /Proteus UTI with Providencia and Proteus PNA MRSA hyperkalemia acute renal failure on CKD obstructive uropathy hematuria -cleared anemia s/p blood transfusion hx of CVA with R hemiplegia seizure disorder moderate pulmonary HTN moderate MR and TR PLAN OF CARE ICU care off pressors hemodynamically stabilized ventilator support pulmonary toilet ABG stable started on weaning protocol not anticipating weaning yet until more awake daily CXR and ABG abx, urine cx + Providencia, Proteus, blood cx +Proteus, sputum cx + MRSA ; wound cx +GNB 2 dif species ID follows cardio eval appreciated ECHO with EF 60%, RVSP of 38 c/w moderate pulmonary HTN as well as moderate MR and moderate TR change IVF due to hyper Na to D51/4 NS monitor renal parameters, creat down to 1.4 monitor lytes, avoid nephrotoxic , additional K supplement today nephro follows renal US with moderate hydronephrosis TF and water flushes urology eval for hematuria appreciated hematuria cleared ; further workup when stable Heparin on hold monitor HH, stable after 1 u PRBC 11/16 Venous Duplex negative, start SCD GI prophylaxis case discussed and evaluated by supervising physician Critical Care - Objective Last 24 Hour Vital Signs Date Time Temp Pulse Resp B/P Pulse Ox O2 Delivery O2 Flow Rate FiO2 11/17/16 09:03 72 26 163/81 100 Mechanical Ventilator 40 11/17/16 08:00 40 11/17/16 08:00 98.0 75 25 161/78 99 Mechanical Ventilator 40 11/17/16 08:00 75 11/17/16 07:00 77 24 156/84 100 Mechanical Ventilator 40 11/17/16 06:57 73 36 40 11/17/16 06:00 70 20 156/91 100 Mechanical Ventilator 40 11/17/16 05:00 82 21 154/81 100 Mechanical Ventilator 40 11/17/16 04:36 83 34 40 11/17/16 04:00 40 11/17/16 04:00 69 11/17/16 04:00 97.7 72 24 156/98 100 Mechanical Ventilator 40 11/17/16 03:00 72 24 154/94 100 Mechanical Ventilator 40 11/17/16 02:33 74 33 40 11/17/16 02:00 73 23 165/86 100 Mechanical Ventilator 40 11/17/16 01:00 70 22 153/77 97 Mechanical Ventilator 40 11/17/16 00:50 69 25 40 11/17/16 00:00 40 11/17/16 00:00 97.8 71 20 160/80 97 Mechanical Ventilator 40 11/17/16 00:00 71 11/16/16 23:00 69 20 155/78 97 Mechanical Ventilator 40 11/16/16 22:43 73 30 40 11/16/16 22:00 73 20 138/94 97 Mechanical Ventilator 40 11/16/16 21:00 74 20 145/74 100 Mechanical Ventilator 40 11/16/16 20:52 72 25 40 11/16/16 20:00 97.7 69 14 150/72 100 Mechanical Ventilator 40 11/16/16 20:00 73 11/16/16 20:00 40 11/16/16 19:00 72 14 152/82 100 Mechanical Ventilator 40 11/16/16 18:33 69 27 40 11/16/16 18:00 71 22 150/76 100 Mechanical Ventilator 40 11/16/16 17:08 66 32 40 11/16/16 17:00 68 22 142/80 98 Mechanical Ventilator 40 11/16/16 16:00 98.7 69 24 138/69 100 Mechanical Ventilator 40 11/16/16 16:00 40 11/16/16 16:00 71 11/16/16 15:23 73 37 40 11/16/16 15:00 70 20 150/77 98 Mechanical Ventilator 40 11/16/16 14:00 98.7 69 22 147/73 100 Mechanical Ventilator 40 11/16/16 13:10 98.9 11/16/16 13:10 78 27 60 11/16/16 13:00 98.9 75 23 152/77 100 Mechanical Ventilator 40 11/16/16 12:00 79 11/16/16 12:00 99.2 78 22 139/81 100 Mechanical Ventilator 40 11/16/16 12:00 40 11/16/16 11:15 99.2 11/16/16 11:00 85 25 140/74 100 Mechanical Ventilator 40 11/16/16 11:00 40 11/16/16 10:36 79 35 60 11/16/16 10:00 82 24 150/69 100 Mechanical Ventilator 40 Objective: Status: somnolent, but arousable and more awake Condition: critical HEENT: atraumatic, normocephalic, OP with ET in place, intact Lungs: clear Heart: HR/BP stable Abdomen: soft, non-tender, Matson with clear urine Extremities: no C/C/E, R hemiplegia Micro: Microbiology Date/Time Source Procedure Growth Status 11/14/16 11:40 Blood Blood Culture - Preliminary Gram Negative Scott Resulted 11/14/16 11:20 Blood Blood Culture - Preliminary Proteus Mirabilis Resulted 11/14/16 12:27 Sputum Expectorated Gram Stain - Final Resulted 11/14/16 12:27 Sputum Culture - Preliminary Staphylococcus Aureus - Mrsa Resulted 11/14/16 11:40 Nasal Nares MRSA Culture - Final Staphylococcus Aureus - Mrsa Complete 11/14/16 18:30 Stool Clostridium difficile Toxin Assay - Final Complete 11/14/16 11:20 Indwelling Cath Urine Culture - Preliminary Providencia Stuartii Proteus Mirabilis Resulted 11/14/16 18:00 Sacral Wound Gram Stain - Final Resulted 11/14/16 18:00 Wound Culture - Preliminary Gram Negative Bacillus 1 Gram Negative Bacillus 2 Resulted 11/14/16 11:40 Rectum VRE Culture - Final Enterococcus Faecalis - Vre Complete Critical Care - Subjective ROS Limited/Unobtainable: Yes Interval Events: still with significant leukocytosis, afebrile more awake today no signs of respiratory distress Na -149 K-3.4 HH up after blood transfusion creat down to 1.4 Condition: critical EKG Rhythm: Sinus Rhythm FI02: 40 Vent Support Breath Rate: 18 Vent Support Mode: AC Vent Tidal Volume: 500 Sputum Amount: Moderate PEEP: 0.0 PIP: 25 Fluids: NS at 100 Tube Feeding Amount: 20 I&O: Intake and Output 11/16/16 11/17/16 19:00 07:00 Intake Total 1655.3 ml 1730 ml Output Total 1360 ml 1650 ml Balance 295.3 ml 80 ml Intake Free Water 180 ml IV Total 1235.3 ml 1310 ml Tube Feeding 120 ml 240 ml Blood Product 250 ml Other 50 ml Output Urine Total 1360 ml 1650 ml CXR: Slightly improved basilar pulmonary atelectasis. ET-Tube: 8.0 ET Position: 24 Cabrera (HueMelia almanza NP Nov 17, 2016 09:28
[2016-11-17] MEDS ORDERED: DuoNeb 0.5-3(2.5)mg/3ml neb HHN PRN (09:30)
[2016-11-17 09:37] LABS: ABG ALLEN TEST POSITIVE; ABG PCO2 36.2 mmHg (35.0-45.0)
--- NOTE | 2016-11-17 09:58 | General Progress Note ---
Assessment/Plan Problem List: (1) Sepsis ICD Codes: A41.9 - Sepsis, unspecified organism SNOMED: 63014462 (2) Septic shock ICD Codes: A41.9 - Sepsis, unspecified organism; R65.21 - Severe sepsis with septic shock SNOMED: 81305246 (3) Renal failure ICD Codes: N19 - Unspecified kidney failure SNOMED: 21720133 Qualifiers: Qualified Codes: N17.9 - Acute kidney failure, unspecified (4) Respiratory distress ICD Codes: R06.00 - Dyspnea, unspecified SNOMED: 285343043 (5) Pneumonia ICD Codes: J18.9 - Pneumonia, unspecified organism SNOMED: 925121132 (6) UTI (urinary tract infection) ICD Codes: N39.0 - Urinary tract infection, site not specified SNOMED: 86803980 Status: stable, progressing, tolerating diet Assessment/Plan vent abx cbc bmp am ltach eval Subjective Constitutional: Reports: weakness Allergies: Coded Allergies: No Known Allergies (Verified , 01/02/09) All Systems: reviewed and negative except above Subjective intubated sedated in icu Objective Last 24 Hour Vital Signs Date Time Temp Pulse Resp B/P Pulse Ox O2 Delivery O2 Flow Rate FiO2 11/17/16 09:27 71 23 40 11/17/16 09:03 72 26 163/81 100 Mechanical Ventilator 40 11/17/16 08:00 40 11/17/16 08:00 98.0 75 25 161/78 99 Mechanical Ventilator 40 11/17/16 08:00 75 11/17/16 07:00 77 24 156/84 100 Mechanical Ventilator 40 11/17/16 06:57 73 36 40 11/17/16 06:00 70 20 156/91 100 Mechanical Ventilator 40 11/17/16 05:00 82 21 154/81 100 Mechanical Ventilator 40 11/17/16 04:36 83 34 40 11/17/16 04:00 40 11/17/16 04:00 69 11/17/16 04:00 97.7 72 24 156/98 100 Mechanical Ventilator 40 11/17/16 03:00 72 24 154/94 100 Mechanical Ventilator 40 11/17/16 02:33 74 33 40 11/17/16 02:00 73 23 165/86 100 Mechanical Ventilator 40 11/17/16 01:00 70 22 153/77 97 Mechanical Ventilator 40 11/17/16 00:50 69 25 40 11/17/16 00:00 40 11/17/16 00:00 97.8 71 20 160/80 97 Mechanical Ventilator 40 11/17/16 00:00 71 11/16/16 23:00 69 20 155/78 97 Mechanical Ventilator 40 11/16/16 22:43 73 30 40 11/16/16 22:00 73 20 138/94 97 Mechanical Ventilator 40 11/16/16 21:00 74 20 145/74 100 Mechanical Ventilator 40 11/16/16 20:52 72 25 40 11/16/16 20:00 97.7 69 14 150/72 100 Mechanical Ventilator 40 11/16/16 20:00 73 11/16/16 20:00 40 11/16/16 19:00 72 14 152/82 100 Mechanical Ventilator 40 11/16/16 18:33 69 27 40 11/16/16 18:00 71 22 150/76 100 Mechanical Ventilator 40 11/16/16 17:08 66 32 40 11/16/16 17:00 68 22 142/80 98 Mechanical Ventilator 40 11/16/16 16:00 98.7 69 24 138/69 100 Mechanical Ventilator 40 11/16/16 16:00 40 11/16/16 16:00 71 11/16/16 15:23 73 37 40 11/16/16 15:00 70 20 150/77 98 Mechanical Ventilator 40 11/16/16 14:00 98.7 69 22 147/73 100 Mechanical Ventilator 40 11/16/16 13:10 98.9 11/16/16 13:10 78 27 60 11/16/16 13:00 98.9 75 23 152/77 100 Mechanical Ventilator 40 11/16/16 12:00 79 11/16/16 12:00 99.2 78 22 139/81 100 Mechanical Ventilator 40 11/16/16 12:00 40 11/16/16 11:15 99.2 11/16/16 11:00 85 25 140/74 100 Mechanical Ventilator 40 11/16/16 11:00 40 11/16/16 10:36 79 35 60 11/16/16 10:00 82 24 150/69 100 Mechanical Ventilator 40 Intake and Output 11/16/16 11/17/16 19:00 07:00 Intake Total 1655.3 ml 1730 ml Output Total 1360 ml 1650 ml Balance 295.3 ml 80 ml Intake Free Water 180 ml IV Total 1235.3 ml 1310 ml Tube Feeding 120 ml 240 ml Blood Product 250 ml Other 50 ml Output Urine Total 1360 ml 1650 ml Laboratory Tests 11/17/16 04:00: White Blood Count 17.7H, Red Blood Count 3.86L, Hemoglobin 9.5L, Hematocrit 31.4L, Mean Corpuscular Volume 81, Mean Corpuscular Hemoglobin 24.7L, Mean Corpuscular Hemoglobin Concent 30.4L, Red Cell Distribution Width 17.3H, Platelet Count 231, Mean Platelet Volume 7.2, Neutrophils (%) (Auto) 84.7H, Lymphocytes (%) (Auto) 9.7L, Monocytes (%) (Auto) 2.9, Eosinophils (%) (Auto) 2.5, Basophils (%) (Auto) 0.2, Arterial Blood pH 7.453H, Arterial Blood Partial Pressure CO2 36.2, Arterial Blood Partial Pressure O2 76.1, Arterial Blood HCO3 24.8, Arterial Blood Oxygen Saturation 95.3, Arterial Blood Base Excess 1.0, Librado Test Positive, Sodium Level 149H, Potassium Level 3.4, Chloride Level 112H , Carbon Dioxide Level 26, Anion Gap 11, Blood Urea Nitrogen 39H, Creatinine 1.4H, Estimat Glomerular Filtration Rate , Glucose Level 91, Calcium Level 9.1 Height (Feet): 6 Height (Inches): 1.00 Weight (Pounds): 191 General Appearance: lethargic EENT: normal ENT inspection Neck: normal alignment Cardiovascular: normal peripheral pulses, normal rate Respiratory/Chest: chest wall non-tender, lungs clear, normal breath sounds Abdomen: normal bowel sounds, non tender, soft Extremities: normal inspection Edema: no edema noted Arm (L), no edema noted Arm (R), no edema noted Leg (L), no edema noted Leg (R), no edema noted Pedal (L), no edema noted Pedal (R), no edema noted Generalized Neurologic: motor weakness Skin: normal pigmentation, warm/dry CASS YANES Nov 17, 2016 09:58
[2016-11-17] MEDS ORDERED: KCl 10% 20 mEq/15ml liquid NG ONE (10:00)
--- NOTE | 2016-11-17 10:43 | Diagnostic Imaging Report ---
Indication: Dyspnea Comparison: 11/16/16 A single view chest radiograph was obtained. Findings: Infiltrates seen in the right lung. Asymmetric pulmonary edema is possible. Heart is enlarged but stable. Endotracheal tube is stable. Impression: Asymmetric lung disease may be due to pneumonia and/or asymmetric pulmonary edema. Please correlate clinically.
--- NOTE | 2016-11-17 11:12 | General Progress Note ---
Subjective ROS Limited/Unobtainable: Yes Allergies: Coded Allergies: No Known Allergies (Verified , 01/02/09) Subjective Pt is intubated due to respiratory distress. Pt doesn't seem to be in pain. He is sedated to tolerate the ETT. Objective Last 24 Hour Vital Signs Date Time Temp Pulse Resp B/P Pulse Ox O2 Delivery O2 Flow Rate FiO2 11/17/16 09:27 71 23 40 11/17/16 09:03 72 26 163/81 100 Mechanical Ventilator 40 11/17/16 08:00 40 11/17/16 08:00 98.0 75 25 161/78 99 Mechanical Ventilator 40 11/17/16 08:00 75 11/17/16 07:00 77 24 156/84 100 Mechanical Ventilator 40 11/17/16 06:57 73 36 40 11/17/16 06:00 70 20 156/91 100 Mechanical Ventilator 40 11/17/16 05:00 82 21 154/81 100 Mechanical Ventilator 40 11/17/16 04:36 83 34 40 11/17/16 04:00 40 11/17/16 04:00 69 11/17/16 04:00 97.7 72 24 156/98 100 Mechanical Ventilator 40 11/17/16 03:00 72 24 154/94 100 Mechanical Ventilator 40 11/17/16 02:33 74 33 40 11/17/16 02:00 73 23 165/86 100 Mechanical Ventilator 40 11/17/16 01:00 70 22 153/77 97 Mechanical Ventilator 40 11/17/16 00:50 69 25 40 11/17/16 00:00 40 11/17/16 00:00 97.8 71 20 160/80 97 Mechanical Ventilator 40 11/17/16 00:00 71 11/16/16 23:00 69 20 155/78 97 Mechanical Ventilator 40 11/16/16 22:43 73 30 40 11/16/16 22:00 73 20 138/94 97 Mechanical Ventilator 40 11/16/16 21:00 74 20 145/74 100 Mechanical Ventilator 40 11/16/16 20:52 72 25 40 11/16/16 20:00 97.7 69 14 150/72 100 Mechanical Ventilator 40 11/16/16 20:00 73 11/16/16 20:00 40 11/16/16 19:00 72 14 152/82 100 Mechanical Ventilator 40 11/16/16 18:33 69 27 40 11/16/16 18:00 71 22 150/76 100 Mechanical Ventilator 40 11/16/16 17:08 66 32 40 11/16/16 17:00 68 22 142/80 98 Mechanical Ventilator 40 11/16/16 16:00 98.7 69 24 138/69 100 Mechanical Ventilator 40 11/16/16 16:00 40 11/16/16 16:00 71 11/16/16 15:23 73 37 40 11/16/16 15:00 70 20 150/77 98 Mechanical Ventilator 40 11/16/16 14:00 98.7 69 22 147/73 100 Mechanical Ventilator 40 11/16/16 13:10 98.9 11/16/16 13:10 78 27 60 11/16/16 13:00 98.9 75 23 152/77 100 Mechanical Ventilator 40 11/16/16 12:00 79 11/16/16 12:00 99.2 78 22 139/81 100 Mechanical Ventilator 40 11/16/16 12:00 40 11/16/16 11:15 99.2 Intake and Output 11/16/16 11/17/16 19:00 07:00 Intake Total 1655.3 ml 1730 ml Output Total 1360 ml 1650 ml Balance 295.3 ml 80 ml Intake Free Water 180 ml IV Total 1235.3 ml 1310 ml Tube Feeding 120 ml 240 ml Blood Product 250 ml Other 50 ml Output Urine Total 1360 ml 1650 ml Laboratory Tests 11/17/16 04:00: White Blood Count 17.7H, Red Blood Count 3.86L, Hemoglobin 9.5L, Hematocrit 31.4L, Mean Corpuscular Volume 81, Mean Corpuscular Hemoglobin 24.7L, Mean Corpuscular Hemoglobin Concent 30.4L, Red Cell Distribution Width 17.3H, Platelet Count 231, Mean Platelet Volume 7.2, Neutrophils (%) (Auto) 84.7H, Lymphocytes (%) (Auto) 9.7L, Monocytes (%) (Auto) 2.9, Eosinophils (%) (Auto) 2.5, Basophils (%) (Auto) 0.2, Arterial Blood pH 7.453H, Arterial Blood Partial Pressure CO2 36.2, Arterial Blood Partial Pressure O2 76.1, Arterial Blood HCO3 24.8, Arterial Blood Oxygen Saturation 95.3, Arterial Blood Base Excess 1.0, Librado Test Positive, Sodium Level 149H, Potassium Level 3.4, Chloride Level 112H , Carbon Dioxide Level 26, Anion Gap 11, Blood Urea Nitrogen 39H, Creatinine 1.4H, Estimat Glomerular Filtration Rate , Glucose Level 91, Calcium Level 9.1 Height (Feet): 6 Height (Inches): 1.00 Weight (Pounds): 191 General Appearance: other - Intubated on Vent EENT: other - ETT in place. Neck: non-tender Cardiovascular: normal rate, regular rhythm Respiratory/Chest: rhonchi - bilaterally Abdomen: non tender, soft Extremities: other - Sacral decubiti Edema: no edema noted Arm (L), no edema noted Arm (R), no edema noted Leg (L), no edema noted Leg (R), no edema noted Pedal (L), no edema noted Pedal (R) Neurologic: other - Intubated and sedated ROLLY AMANDA Nov 17, 2016 11:12
[2016-11-17] MEDS: D5 1/4NS 1000ml 1,000 ML IV SCH ×2 (11:20→19:43)
[2016-11-17] MEDS: HydrALAZINE 25mg tab NG PRN ×2 (12:08→20:38)
[2016-11-17] MEDS: Vancomycin 1 GM in D5W 275 ML IVPB SCH (12:15)
[2016-11-17] MEDS: Piperacillin/Tazobactam 3.375 GM in D5W 110 ML IVPB SCH ×2 (14:04→19:40)
--- NOTE | 2016-11-17 14:32 | Progress Note ---
DATE: 11/17/2016 CARDIOLOGY PROGRESS NOTE SUBJECTIVE: The patient remains in the intensive care unit. He continues to require ventilator support. His blood pressure trend has been increasing since he has been off pressors for 48 hours. Monitored rhythm, sinus with left bundle-branch block. OBJECTIVE: VITAL SIGNS: Blood pressure is 163/81, pulse 72, respiratory rate 26, and afebrile. Orally intubated. LUNGS: Coarse breath sounds. Scattered rhonchi. HEART: Regular rhythm and rate. Normal S1, paradoxically split S2. ABDOMEN: Soft. EXTREMITIES: Trace edema. LABORATORY DATA: Sodium is 149, potassium 3.4, bicarbonate 26, BUN 39, and creatinine 1.4. Chest x-ray revealed diffuse infiltrate. White count 17.7 and hemoglobin 9.5. ABG, pH 7.45, pO2 36, and pCO2 76. IMPRESSION: 1. Respiratory failure. 2. Sepsis with shock, recovered. 3. Bacteremia with gram-negative rods. 4. Healthcare acquired pneumonia with methicillin-resistant Staphylococcus aureus. 5. Hypertensive heart disease with rising blood pressure trend. 6. Dehydration. 7. Hypernatremia. 8. Seizure disorder. 9. Pulmonary hypertension. 10. Degenerative valve disease with regurgitation. PLAN: 1. Add p.r.n. hydralazine if blood pressure continues to remain elevated. We will add standing dose of antihypertensive agent. Continue to monitor volume status. 2. Avoid positive fluid balance. 3. Antimicrobials per Infectious Disease integration consultant. 4. Hypotonic intravenous fluids at this time. 5. DVT and stress ulcer prophylaxis. 6. Condition remains critical with guarded prognosis. Riki Francois M.D. DR: ERIKA JOB#: [id number] CC:
[2016-11-17] MEDS ORDERED: Tubing IV Secondary IV ONE (17:02)
[2016-11-17] MEDS: Dyna-Hex 2% Top Sol 8oz TOPIC SCH (20:38)
[2016-11-18] VITALS (24 sets, daily range): BP systolic 124–186; BP diastolic 72–98
[2016-11-18] MEDS: HydrALAZINE 25mg tab NG PRN ×3 (00:44→08:45)
[2016-11-18] MEDS: Piperacillin/Tazobactam 3.375 GM in D5W 110 ML IVPB SCH ×3 (03:42→20:30)
[2016-11-18 05:22] LABS: BASOPHILS % (AUTO) 0.5 % (0.0-2.0); EOSINOPHILS % (AUTO) 4.4 % (0.0-3.0); LYMPHOCYTES % (AUTO) 18.4 % (20.0-45.0); MEAN CORPUSCULAR HEMOGLOBIN 25.7 PG (27.0-31.0); MEAN CORPUSCULAR HGB CONC 31.4 G/DL (32.0-36.0); MEAN CORPUSCULAR VOLUME 82 FL (80-99); MONOCYTES % (AUTO) 5.5 % (1.0-10.0); NEUTROPHILS % (AUTO) 71.3 % (45.0-75.0); PLATELET COUNT 186 K/UL (150-450); RED BLOOD COUNT 3.64 M/UL (4.70-6.10); RED CELL DISTRIBUTION WIDTH 17.1 % (11.6-14.8); WHITE BLOOD COUNT 10.9 K/UL (4.8-10.8)
[2016-11-18 05:37] LABS: CREATININE RANDOM URINE 63.6 mg/dL (Not Estab.); MICROALBUMIN/CREATININE RATIO 185.8 mg/g creat (0.0-30.0)
[2016-11-18 06:02] LABS: ANION GAP 13 (5-15); CALCIUM 9.1 mg/dL (8.6-10.2); CARBON DIOXIDE 27 mEQ/L (20-30); CHLORIDE 107 mEQ/L (98-107); CREATININE 1.2 mg/dL (0.7-1.2); HEMOLYSIS 10; POTASSIUM 3.3 mEQ/L (3.4-4.9); SODIUM 147 mEQ/L (135-145)
[2016-11-18] MEDS: D5 1/4NS 1000ml 1,000 ML IV SCH ×2 (06:09→08:40)
[2016-11-18 06:41] LABS: BILIRUBIN,DIRECT 0.1 mg/dL (0.1-0.3); MAGNESIUM 1.7 mg/dL (1.7-2.5); TOTAL PROTEIN 6.7 g/dL (6.6-8.7)
--- NOTE | 2016-11-18 07:59 | General Progress Note ---
Assessment/Plan Problem List: (1) Decubital ulcer ICD Codes: L89.90 - Pressure ulcer of unspecified site, unspecified stage SNOMED: 196822804 (2) Encephalopathy due to infection ICD Codes: G93.49 - Other encephalopathy; B99.9 - Unspecified infectious disease SNOMED: 77965118, 30940138 (3) Respiratory distress ICD Codes: R06.00 - Dyspnea, unspecified SNOMED: 984140403 (4) Pneumonia ICD Codes: J18.9 - Pneumonia, unspecified organism SNOMED: 989690601 (5) Sepsis ICD Codes: A41.9 - Sepsis, unspecified organism SNOMED: 05638003 Assessment/Plan Pain is controlled on Dilaudid. Subjective ROS Limited/Unobtainable: Yes Allergies: Coded Allergies: No Known Allergies (Verified , 01/02/09) Subjective Pt is still intubated due to respiratory distress. Pt is not responding. But he has received a dose of Dilaudid yesterday. He doesn't seem to be in pain. Objective Last 24 Hour Vital Signs Date Time Temp Pulse Resp B/P Pulse Ox O2 Delivery O2 Flow Rate FiO2 11/18/16 07:00 69 23 162/90 99 Mechanical Ventilator 40 11/18/16 06:37 67 20 40 11/18/16 06:00 76 20 173/95 99 Mechanical Ventilator 40 11/18/16 05:00 72 23 153/83 99 Mechanical Ventilator 40 11/18/16 04:41 68 22 40 11/18/16 04:33 169/92 11/18/16 04:00 73 11/18/16 04:00 40 11/18/16 04:00 98.0 67 21 165/98 100 Mechanical Ventilator 40 11/18/16 03:11 67 22 40 11/18/16 03:00 64 20 174/85 100 Mechanical Ventilator 40 11/18/16 02:00 65 23 156/82 100 Mechanical Ventilator 40 11/18/16 01:13 64 23 40 11/18/16 01:00 63 22 161/81 100 Mechanical Ventilator 40 11/18/16 00:44 169/82 11/18/16 00:00 62 11/18/16 00:00 97.9 63 22 155/79 99 Mechanical Ventilator 40 11/18/16 00:00 40 11/17/16 23:40 97.7 11/17/16 23:02 64 24 40 11/17/16 23:00 69 22 164/82 99 Mechanical Ventilator 40 11/17/16 22:34 97.7 11/17/16 22:00 97.7 65 23 157/98 99 Mechanical Ventilator 40 11/17/16 21:00 98.9 70 20 165/105 100 Mechanical Ventilator 40 11/17/16 20:55 72 31 40 11/17/16 20:38 164/92 11/17/16 20:00 70 11/17/16 20:00 97.7 66 18 164/81 100 Mechanical Ventilator 40 11/17/16 20:00 40 11/17/16 19:30 73 30 40 11/17/16 19:00 70 18 148/89 100 Mechanical Ventilator 40 11/17/16 18:00 67 23 149/87 100 Mechanical Ventilator 40 11/17/16 17:16 73 36 40 11/17/16 17:00 68 24 163/89 100 Mechanical Ventilator 40 11/17/16 16:00 40 11/17/16 16:00 68 11/17/16 16:00 98.1 68 22 149/93 100 Mechanical Ventilator 40 11/17/16 15:07 69 32 40 11/17/16 15:00 71 23 154/84 99 Mechanical Ventilator 40 11/17/16 14:00 70 20 159/94 100 Mechanical Ventilator 40 11/17/16 13:15 71 29 40 11/17/16 13:00 70 22 161/82 100 Mechanical Ventilator 40 11/17/16 12:08 170/87 11/17/16 12:00 73 11/17/16 12:00 98.2 73 23 171/89 100 Mechanical Ventilator 40 11/17/16 12:00 40 11/17/16 11:22 77 33 40 11/17/16 11:00 75 22 171/88 99 Mechanical Ventilator 40 11/17/16 10:00 75 21 165/88 100 Mechanical Ventilator 40 11/17/16 09:27 71 23 40 11/17/16 09:03 72 26 163/81 100 Mechanical Ventilator 40 11/17/16 08:00 40 11/17/16 08:00 98.0 75 25 161/78 99 Mechanical Ventilator 40 11/17/16 08:00 75 Intake and Output 11/17/16 11/18/16 19:00 07:00 Intake Total 1575.0 ml 1530 ml Output Total 2140 ml 1650 ml Balance -565.0 ml -120 ml Intake Free Water 120 ml IV Total 1335.0 ml 1110 ml Tube Feeding 240 ml 240 ml Other 60 ml Output Urine Total 2140 ml 1650 ml Laboratory Tests 11/17/16 11:00: Vancomycin Level Trough 18.7H 11/18/16 04:00: White Blood Count 10.9H, Red Blood Count 3.64L, Hemoglobin 9.3L, Hematocrit 29.8L, Mean Corpuscular Volume 82, Mean Corpuscular Hemoglobin 25.7L, Mean Corpuscular Hemoglobin Concent 31.4L, Red Cell Distribution Width 17.1H, Platelet Count 186, Mean Platelet Volume 6.0L, Neutrophils (%) (Auto) 71.3, Lymphocytes (%) (Auto) 18.4L, Monocytes (%) (Auto) 5.5, Eosinophils (%) (Auto) 4.4H, Basophils (%) (Auto) 0.5, Sodium Level 147H, Potassium Level 3.3L, Chloride Level 107, Carbon Dioxide Level 27, Anion Gap 13, Blood Urea Nitrogen 27H, Creatinine 1.2, Estimat Glomerular Filtration Rate , Glucose Level 115H, Calcium Level 9.1, Magnesium Level 1.7, Total Bilirubin 0.5, Direct Bilirubin 0.1, Aspartate Amino Transf (AST/SGOT) 29, Alanine Aminotransferase (ALT/SGPT) 28, Alkaline Phosphatase 95, Pro-B-Type Natriuretic Peptide 8243H, Total Protein 6.7, Albumin 2.2L Height (Feet): 6 Height (Inches): 1.00 Weight (Pounds): 191 General Appearance: other - Comatose EENT: other - ETT in place. Cardiovascular: normal rate, regular rhythm Respiratory/Chest: chest wall non-tender, rhonchi - bilaterally Abdomen: soft Extremities: non-tender Edema: no edema noted Arm (L), no edema noted Arm (R), no edema noted Leg (L), no edema noted Leg (R), no edema noted Pedal (L), no edema noted Pedal (R) Neurologic: unresponsive ROLLY AMANDA Nov 18, 2016 07:58
--- NOTE | 2016-11-18 08:13 | Cardiology Report ---
APPROVED REPORT EXAM: Two-dimensional and M-mode echocardiogram with Doppler and color Doppler. INDICATION left ventricular function. M-Mode DIMENSIONS IVSd1.4 (0.7-1.1cm)Left Atrium (MM)4.2 (1.6-4.0cm) LVDd5.0 (3.5-5.6cm)Aortic Root3.3 (2.0-3.7cm) PWd1.2 (0.7-1.1cm)Aortic Cusp Exc.1.5 (1.5-2.0cm) LVDs3.3 (2.5-4.0cm) PWs2.1 cm Technical difficult study due to poor parasternal windows, Patient on ventilator. Normal left ventricular chamber size, systolic function and wall motion. Left ventricular ejection fraction grossly estimated to be 60 %. Mild left ventricular hypertrophy. No evidence of pericardial effusion. Anterior Echo-free space, may be due to pericardial fat or effusion. mild left atrial enlargement. All other cardiac chamber sizes appear to at normal limits. Severe focal aortic valve sclerosis with diminished cusp excursion. Thickened mitral valve leaflets with normal excursion. Mitral annulus and aortic root calcification. Normal pulmonic valve structure. Normal tricuspid valve structure. IVC dilated at 1.6 cm with physiologic collapse RA pressure.15mmHg... A color flow and spectral Doppler study was performed and revealed: Mild Severe aortic regurgitation. Peak aortic valve gradient of 8.09 mm Hg and a mean of 1.28mmHg. Aortic valve area 3.8 cm2 calculated by continuity equation. Moderate mitral regurgitation. Mitral diastolic velocities suggest Grade I diastolic dysfunction Moderate, tricuspid regurgitation. Tricuspid systolic velocities suggests peak right ventricular systolic pressure of 38mmHg consistent with moderate, severe pulmonary hypertension. Mild pulmonic regurgitation present.
[2016-11-18] MEDS: Pantoprazole Inj IVP SCH (08:40)
[2016-11-18] MEDS: Vitamin A&D Oint 2oz Tube TOPIC SCH ×2 (08:40→20:31)
[2016-11-18] MEDS: Heparin 5000 units/ml inj SUBQ SCH ×2 (08:42→20:31)
[2016-11-18 10:09] LABS: ABG ALLEN TEST POSITIVE; ABG BASE EXCESS 1.8
--- NOTE | 2016-11-18 10:15 | Diagnostic Imaging Report ---
Indications: Shortness of breath Technique: Portable AP chest Findings: Comparison: 11/17/2016 Endotracheal tube remains in place. Right upper lobe alveolar opacity, right lung base linear opacities, elevation of the apparent right hemidiaphragm, slight blunting of right costophrenic angle persists, unchanged. Linear opacity persists in left lung base. Cardiac mediastinal silhouette stable. No new abnormality identified. IMPRESSION: Stable right upper lobe alveolar opacity compatible with but not specific for pneumonia Stable pulmonary bibasal subsegmental atelectasis versus scarring with associated right lung volume loss
--- NOTE | 2016-11-18 10:38 | Pulmonolgy Critical Care Note ---
Critical Care - Asmt/Plan Problems: (1) Septic shock (2) Respiratory distress (3) Acute encephalopathy (4) Renal failure (5) Decubital ulcer Respiratory: monitor respiratory rate, adjust FIO2 Cardiac: continue to monitor HR/BP Renal: F/U I&O, keep IV fluid, decrease IV fluid, check electrolytes Infectious Disease: check cultures, continue antibiotics Gastrointestinal: continue feedings/current rate, start feedings Endocrine: monitor blood sugar Hematologic: monitor H/H, transfuse if hgb<8.5 Neurologic: PRN Ativan, PRN Morphine, keep patient comfortable Affect: PRN ativan Prophylaxis: Protonix, Heparin Notes Reviewed: cardio, renal Discussed with: nurses, consultants, case aiderecycling manager - Objective Last 24 Hour Vital Signs Date Time Temp Pulse Resp B/P Pulse Ox O2 Delivery O2 Flow Rate FiO2 11/18/16 10:00 65 20 177/89 100 Mechanical Ventilator 40 11/18/16 09:03 69 20 40 11/18/16 09:00 69 23 152/91 100 Mechanical Ventilator 40 11/18/16 08:45 161/80 11/18/16 08:00 97.9 64 21 161/80 99 Mechanical Ventilator 40 11/18/16 08:00 40 11/18/16 08:00 70 11/18/16 07:00 69 23 162/90 99 Mechanical Ventilator 40 11/18/16 06:37 67 20 40 11/18/16 06:00 76 20 173/95 99 Mechanical Ventilator 40 11/18/16 05:00 72 23 153/83 99 Mechanical Ventilator 40 11/18/16 04:41 68 22 40 11/18/16 04:33 169/92 11/18/16 04:00 73 11/18/16 04:00 40 11/18/16 04:00 98.0 67 21 165/98 100 Mechanical Ventilator 40 11/18/16 03:11 67 22 40 11/18/16 03:00 64 20 174/85 100 Mechanical Ventilator 40 11/18/16 02:00 65 23 156/82 100 Mechanical Ventilator 40 11/18/16 01:13 64 23 40 11/18/16 01:00 63 22 161/81 100 Mechanical Ventilator 40 11/18/16 00:44 169/82 11/18/16 00:00 62 11/18/16 00:00 97.9 63 22 155/79 99 Mechanical Ventilator 40 11/18/16 00:00 40 11/17/16 23:40 97.7 11/17/16 23:02 64 24 40 11/17/16 23:00 69 22 164/82 99 Mechanical Ventilator 40 11/17/16 22:34 97.7 11/17/16 22:00 97.7 65 23 157/98 99 Mechanical Ventilator 40 11/17/16 21:00 98.9 70 20 165/105 100 Mechanical Ventilator 40 11/17/16 20:55 72 31 40 11/17/16 20:38 164/92 11/17/16 20:00 70 11/17/16 20:00 97.7 66 18 164/81 100 Mechanical Ventilator 40 11/17/16 20:00 40 11/17/16 19:30 73 30 40 11/17/16 19:00 70 18 148/89 100 Mechanical Ventilator 40 11/17/16 18:00 67 23 149/87 100 Mechanical Ventilator 40 11/17/16 17:16 73 36 40 11/17/16 17:00 68 24 163/89 100 Mechanical Ventilator 40 11/17/16 16:00 40 11/17/16 16:00 68 11/17/16 16:00 98.1 68 22 149/93 100 Mechanical Ventilator 40 11/17/16 15:07 69 32 40 11/17/16 15:00 71 23 154/84 99 Mechanical Ventilator 40 11/17/16 14:00 70 20 159/94 100 Mechanical Ventilator 40 11/17/16 13:15 71 29 40 11/17/16 13:00 70 22 161/82 100 Mechanical Ventilator 40 11/17/16 12:08 170/87 11/17/16 12:00 73 11/17/16 12:00 98.2 73 23 171/89 100 Mechanical Ventilator 40 11/17/16 12:00 40 11/17/16 11:22 77 33 40 11/17/16 11:00 75 22 171/88 99 Mechanical Ventilator 40 Status: sedated Condition: critical HEENT: atraumatic Neck: full ROM Lungs: clear Heart: HR/BP stable, regular Extremities: no C/C/E Critical Care - Subjective ROS Limited/Unobtainable: Yes ICU Day: 4 Intubation Day: 4 Condition: critical EKG Rhythm: Sinus Rhythm FI02: 40 Vent Support Breath Rate: 18 Vent Support Mode: AC Vent Tidal Volume: 500 Sputum Amount: Small PEEP: 0.0 PIP: 26 Fluids: d5 1/4 NS 100 cc.hour Tube Feeding Amount: 20 I&O: Intake and Output 11/17/16 11/18/16 19:00 07:00 Intake Total 1575.0 ml 1530 ml Output Total 2140 ml 1650 ml Balance -565.0 ml -120 ml Intake Free Water 120 ml IV Total 1335.0 ml 1110 ml Tube Feeding 240 ml 240 ml Other 60 ml Output Urine Total 2140 ml 1650 ml CXR: R infiltrate unchanged. ET-Tube: 8.0 ET Position: 24 Labs: Laboratory Tests Test 11/17/16 11:00 11/18/16 04:00 11/18/16 08:53 Vancomycin Level Trough 18.7 ug/mL (5.0-12.0) H White Blood Count 10.9 K/UL (4.8-10.8) H Red Blood Count 3.64 M/UL (4.70-6.10) L Hemoglobin 9.3 G/DL (14.2-18.0) L Hematocrit 29.8 % (42.0-52.0) L Mean Corpuscular Volume 82 FL (80-99) Mean Corpuscular Hemoglobin 25.7 PG (27.0-31.0) L Mean Corpuscular Hemoglobin Concent 31.4 G/DL (32.0-36.0) L Red Cell Distribution Width 17.1 % (11.6-14.8) H Platelet Count 186 K/UL (150-450) Mean Platelet Volume 6.0 FL (6.5-10.1) L Neutrophils (%) (Auto) 71.3 % (45.0-75.0) Lymphocytes (%) (Auto) 18.4 % (20.0-45.0) L Monocytes (%) (Auto) 5.5 % (1.0-10.0) Eosinophils (%) (Auto) 4.4 % (0.0-3.0) H Basophils (%) (Auto) 0.5 % (0.0-2.0) Sodium Level 147 mEQ/L (135-145) H Potassium Level 3.3 mEQ/L (3.4-4.9) L Chloride Level 107 mEQ/L (98-107) Carbon Dioxide Level 27 mEQ/L (20-30) Anion Gap 13 (5-15) Blood Urea Nitrogen 27 mg/dL (7-23) H Creatinine 1.2 mg/dL (0.7-1.2) Estimat Glomerular Filtration Rate mL/min (>60) Glucose Level 115 mg/dL (74-106) H Calcium Level 9.1 mg/dL (8.6-10.2) Magnesium Level 1.7 mg/dL (1.7-2.5) Total Bilirubin 0.5 mg/dL (0.0-1.2) Direct Bilirubin 0.1 mg/dL (0.1-0.3) Aspartate Amino Transf (AST/SGOT) 29 U/L (5-40) Alanine Aminotransferase (ALT/SGPT) 28 U/L (3-41) Alkaline Phosphatase 95 U/L (40-129) Pro-B-Type Natriuretic Peptide 8243 pg/mL (0-450) H Total Protein 6.7 g/dL (6.6-8.7) Albumin 2.2 g/dL (3.5-5.2) L Arterial Blood pH 7.457 (7.350-7.450) Arterial Blood Partial Pressure CO2 37.0 mmHg (35.0-45.0) Arterial Blood Partial Pressure O2 89.5 mmHg (75.0-100.0) Arterial Blood HCO3 25.5 mmol/L (22.0-26.0) Arterial Blood Oxygen Saturation 96.3 % (92.0-98.0) Arterial Blood Base Excess 1.8 Librado Test Positive MARY CABELLO Nov 18, 2016 10:38
[2016-11-18] MEDS: Vancomycin 1 GM in D5W 275 ML IVPB SCH (11:05)
--- NOTE | 2016-11-18 12:20 | General Progress Note ---
Assessment/Plan Problem List: (1) Sepsis ICD Codes: A41.9 - Sepsis, unspecified organism SNOMED: 08726805 (2) Septic shock ICD Codes: A41.9 - Sepsis, unspecified organism; R65.21 - Severe sepsis with septic shock SNOMED: 47856906 (3) Renal failure ICD Codes: N19 - Unspecified kidney failure SNOMED: 92551290 Qualifiers: Qualified Codes: N17.9 - Acute kidney failure, unspecified (4) Respiratory distress ICD Codes: R06.00 - Dyspnea, unspecified SNOMED: 500792458 (5) Pneumonia ICD Codes: J18.9 - Pneumonia, unspecified organism SNOMED: 393806957 (6) UTI (urinary tract infection) ICD Codes: N39.0 - Urinary tract infection, site not specified SNOMED: 34681153 Status: stable, progressing, tolerating diet Assessment/Plan vent abx cbc bmp am ltach transfer Subjective Constitutional: Reports: weakness Allergies: Coded Allergies: No Known Allergies (Verified , 01/02/09) All Systems: reviewed and negative except above Subjective intubated sedated in icu Objective Last 24 Hour Vital Signs Date Time Temp Pulse Resp B/P Pulse Ox O2 Delivery O2 Flow Rate FiO2 11/18/16 12:01 67 11/18/16 12:00 40 11/18/16 12:00 97.5 71 20 186/92 99 Mechanical Ventilator 40 11/18/16 11:11 64 20 40 11/18/16 11:00 73 20 171/94 100 Mechanical Ventilator 40 11/18/16 10:49 65 177/89 11/18/16 10:00 65 20 177/89 100 Mechanical Ventilator 40 11/18/16 09:03 69 20 40 11/18/16 09:00 69 23 152/91 100 Mechanical Ventilator 40 11/18/16 08:45 161/80 11/18/16 08:00 97.9 64 21 161/80 99 Mechanical Ventilator 40 11/18/16 08:00 40 11/18/16 08:00 70 11/18/16 07:00 69 23 162/90 99 Mechanical Ventilator 40 11/18/16 06:37 67 20 40 11/18/16 06:00 76 20 173/95 99 Mechanical Ventilator 40 11/18/16 05:00 72 23 153/83 99 Mechanical Ventilator 40 11/18/16 04:41 68 22 40 11/18/16 04:33 169/92 11/18/16 04:00 73 11/18/16 04:00 40 11/18/16 04:00 98.0 67 21 165/98 100 Mechanical Ventilator 40 11/18/16 03:11 67 22 40 11/18/16 03:00 64 20 174/85 100 Mechanical Ventilator 40 11/18/16 02:00 65 23 156/82 100 Mechanical Ventilator 40 11/18/16 01:13 64 23 40 11/18/16 01:00 63 22 161/81 100 Mechanical Ventilator 40 11/18/16 00:44 169/82 11/18/16 00:00 62 11/18/16 00:00 97.9 63 22 155/79 99 Mechanical Ventilator 40 11/18/16 00:00 40 11/17/16 23:40 97.7 11/17/16 23:02 64 24 40 11/17/16 23:00 69 22 164/82 99 Mechanical Ventilator 40 11/17/16 22:34 97.7 11/17/16 22:00 97.7 65 23 157/98 99 Mechanical Ventilator 40 11/17/16 21:00 98.9 70 20 165/105 100 Mechanical Ventilator 40 11/17/16 20:55 72 31 40 11/17/16 20:38 164/92 11/17/16 20:00 70 11/17/16 20:00 97.7 66 18 164/81 100 Mechanical Ventilator 40 11/17/16 20:00 40 11/17/16 19:30 73 30 40 11/17/16 19:00 70 18 148/89 100 Mechanical Ventilator 40 11/17/16 18:00 67 23 149/87 100 Mechanical Ventilator 40 11/17/16 17:16 73 36 40 11/17/16 17:00 68 24 163/89 100 Mechanical Ventilator 40 11/17/16 16:00 40 217 16:00 68 11/17/16 16:00 98.1 68 22 149/93 100 Mechanical Ventilator 40 2/ 15:07 69 32 40 2/17 15:00 71 23 154/84 99 Mechanical Ventilator 40 2/17 14:00 70 20 159/94 100 Mechanical Ventilator 40 217 13:15 71 29 40 7 13:00 70 22 161/82 100 Mechanical Ventilator 40 Intake and Output 11/17/16 11/18/16 19:00 07:00 Intake Total 1575.0 ml 1530 ml Output Total 2140 ml 1650 ml Balance -565.0 ml -120 ml Intake Free Water 120 ml IV Total 1335.0 ml 1110 ml Tube Feeding 240 ml 240 ml Other 60 ml Output Urine Total 2140 ml 1650 ml Laboratory Tests 11/18/16 04:00: White Blood Count 10.9H, Red Blood Count 3.64L, Hemoglobin 9.3L, Hematocrit 29.8L, Mean Corpuscular Volume 82, Mean Corpuscular Hemoglobin 25.7L, Mean Corpuscular Hemoglobin Concent 31.4L, Red Cell Distribution Width 17.1H, Platelet Count 186, Mean Platelet Volume 6.0L, Neutrophils (%) (Auto) 71.3, Lymphocytes (%) (Auto) 18.4L, Monocytes (%) (Auto) 5.5, Eosinophils (%) (Auto) 4.4H, Basophils (%) (Auto) 0.5, Sodium Level 147H, Potassium Level 3.3L, Chloride Level 107, Carbon Dioxide Level 27, Anion Gap 13, Blood Urea Nitrogen 27H, Creatinine 1.2, Estimat Glomerular Filtration Rate , Glucose Level 115H, Calcium Level 9.1, Magnesium Level 1.7, Total Bilirubin 0.5, Direct Bilirubin 0.1, Aspartate Amino Transf (AST/SGOT) 29, Alanine Aminotransferase (ALT/SGPT) 28, Alkaline Phosphatase 95, Pro-B-Type Natriuretic Peptide 8243H, Total Protein 6.7, Albumin 2.2L 11/18/16 08:53: Arterial Blood pH 7.457H, Arterial Blood Partial Pressure CO2 37.0, Arterial Blood Partial Pressure O2 89.5, Arterial Blood HCO3 25.5, Arterial Blood Oxygen Saturation 96.3, Arterial Blood Base Excess 1.8, Librado Test Positive Height (Feet): 6 Height (Inches): 1.00 Weight (Pounds): 191 General Appearance: lethargic EENT: normal ENT inspection Neck: normal alignment Cardiovascular: normal peripheral pulses, normal rate, regular rhythm Respiratory/Chest: chest wall non-tender, lungs clear, normal breath sounds Abdomen: normal bowel sounds, non tender, soft Extremities: normal inspection Edema: no edema noted Arm (L), no edema noted Arm (R), no edema noted Leg (L), no edema noted Leg (R), no edema noted Pedal (L), no edema noted Pedal (R), no edema noted Generalized Neurologic: motor weakness Skin: normal pigmentation, warm/dry CASS YANES Nov 18, 2016 12:20
--- NOTE | 2016-11-18 13:41 | Diagnostic Imaging Report ---
APPROVED REPORT CPT Code: 63234 Present Symptoms Shortness of breath BILATERAL: Imaging reveals a patent deep venous system bilaterally. There is no evidence of thrombus within the femoral, popliteal or tibial segments. The greater saphenous veins are also within normal limits. Doppler indicates normal spontaneous flow within these segments.
--- NOTE | 2016-11-18 15:03 | GI Initial Consult Note ---
PriscilaDelfina Dino N.P. 11/18/16 1503: History of Present Illness General Date patient seen: Nov 18, 2016 Time patient seen: 12:00 Reason for Hospitalization: Dyspnea/Respdistress Referring physician: CASS YANES Reason for Consultation: ANEMIA Present Illness HPI Patient presents emergency department today with acute respiratory distress. Patient apparently was going to a specialist to evaluate hematuria when he was noted to be altered and hypotensive. Paramedics brought the patient here for further evaluation. On arrival patient appeared to have evidence of respiratory distress. Patient did not have a gag reflex. Oral airway was in place. Patient require emergent intubation. No further history is available other than what was available from the paramedics. Patient was nonverbal. Symptoms noted to be severe to critical.No other modifying factors. No other associated signs and symptoms. No other complaints were noted. GI Consult. HPI as noted above. GI consulted for anemia and GT management. ROS limited, patient is in ICU intubated. On last admission, GT was noted to be leaking and was not changed after assessment. The patient presents today with anemia and GT feedings. No reports of diarrhea or active N/V at this time. Home Meds Active Scripts [d5w 50c 3d] No Conflict Check Prov:MARY CABELLO 09/05/16 Reported Medications Polyethylene Glycol 3350* (MIRALAX*) 17 Gm Powd.pack, 17 GM ORAL DAILY Y for Constipation, PACKET 09/05/16 Pantoprazole* (PROTONIX*) 40 Mg Vial, 40 MG IVP EVERY 12 HOURS, VIAL 09/05/16 Ondansetron* (ZOFRAN*) 4 Mg/2 Ml Vial, 4 MG IV Q6H Y for Nausea & Vomiting, VIAL 09/05/16 Lorazepam (Lorazepam) 2 Mg/1 Ml Syringe, 1 MG IV Q4H for For Anxiety, EA 09/05/16 Ipratropium [place] 0.5MG/2.5ML (IPRATROPIUM BROMIDE 0.5MG/2.5ML) 0.2 Mg/1 Ml Solution, 0.5 MG HHN Q4HR Y for Shortness of Breath, #28 EA 09/05/16 Hydralazine HCl (Hydralazine HCl) 25 Mg Tablet, 25 MG GT Q8HR, TAB 09/05/16 Heparin Sod (Porcine) (HEPARIN SODIUM*) 5 000/1 Ml Vial, 5000 UNITS SUBQ EVERY 12 HOURS, VIAL 09/05/16 Epoetin Sathish (EPOGEN) 20,000 Unit/2 Ml Vial, 7000 UNIT SUBQ 3XW, VIAL 09/05/16 Bacitracin Zinc (BACITRACIN ZINC) 120 Gm Oint...g., 1 APPLIC TP THREE TIMES A DAY, GM 09/05/16 Docusate Sodium* (COLACE*) 100 Mg Capsule, 100 MG GT DAILY, CAP 08/31/16 Acetaminophen (Acetaminophen) 325 Mg Capsule, 650 MG GT EVERY 4 HOURS, CAP 08/31/16 Zinc Sulfate (ZINC SULFATE*) 220 Mg Capsule, 220 MG GT DAILY, CAP 0 Refills 08/31/16 Ascorbic Acid* (VITAMIN C*) 500 Mg Tablet, 500 MG GT DAILY, #30 TAB 0 Refills 08/31/16 Amino Acids/Protein Hydrolys (PRO-STAT LIQUID) 30 Ml Liquid.pkt, 30 ML GT DAILY , ML 08/31/16 Tamsulosin HCl (Flomax) 0.4 Mg Cap.er.24h, 0.8 MG GT DAILY, CAP 08/31/16 Metoprolol Tartrate* (METOPROLOL TARTRATE*) 25 Mg Tablet, 25 MG GT EVERY 12 HOURS, TAB 08/31/16 Lisinopril* (LISINOPRIL*) 40 Mg Tablet, 40 MG GT DAILY, TAB 08/31/16 Enoxaparin* (LOVENOX*) 40 Mg/0.4 Ml Inj, 40 MG SUBQ DAILY 08/31/16 Atorvastatin Calcium* (ATORVASTATIN CALCIUM*) 40 Mg Tablet, 40 MG GT BEDTIME, TAB 08/31/16 Amlodipine Besylate* (AMLODIPINE BESYLATE*) 10 Mg Tablet, 10 MG GT DAILY, TAB 08/31/16 Aspirin* (ASPIRIN*) 325 Mg Tablet, 325 MG GT DAILY, TAB 08/31/16 Med list reviewed/reconciled: Yes Allergies: Coded Allergies: No Known Allergies (Verified , 01/02/09) Patient History Limited by: medical condition History Provided By: Medical Record PM Narrative Past Medical History: HTN, CAD, seizures Past Surgical History: CABG, other - g-tube Social History: Denies: alcohol use, drug use, smoking Reviewed Nursing Documentation: PMH: Agreed, PSxH: Agreed Nursing Documentation-[facility] Past Medical History: No History, Except For Hx Cardiac Problems: Yes - Hyperlipidemia, NSTEMI, CABG (3 vessel) Hx Hypertension: Yes - penitentiary use of anticoagulants Hx Gastrointestinal Problems: Yes - dysphagia, G-tube, PUD, GERD Hx Neurological Problems: Yes - Generalized muscle weakness, Vertigo 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, affecting right dominant side Hx Seizures: Yes Review of Systems All Other Systems: limited Physical Exam Vital Signs Date Time Temp Pulse Resp B/P Pulse Ox O2 Delivery O2 Flow Rate FiO2 11/14/16 11:11 98.2 78 36 91 Room Air 11/14/16 11:20 100 11/14/16 11:23 83/55 Sp02 EP Interpretation: reviewed Labs Laboratory Tests Test 11/18/16 04:00 11/18/16 08:53 White Blood Count 10.9 K/UL (4.8-10.8) H Red Blood Count 3.64 M/UL (4.70-6.10) L Hemoglobin 9.3 G/DL (14.2-18.0) L Hematocrit 29.8 % (42.0-52.0) L Mean Corpuscular Volume 82 FL (80-99) Mean Corpuscular Hemoglobin 25.7 PG (27.0-31.0) L Mean Corpuscular Hemoglobin Concent 31.4 G/DL (32.0-36.0) L Red Cell Distribution Width 17.1 % (11.6-14.8) H Platelet Count 186 K/UL (150-450) Mean Platelet Volume 6.0 FL (6.5-10.1) L Neutrophils (%) (Auto) 71.3 % (45.0-75.0) Lymphocytes (%) (Auto) 18.4 % (20.0-45.0) L Monocytes (%) (Auto) 5.5 % (1.0-10.0) Eosinophils (%) (Auto) 4.4 % (0.0-3.0) H Basophils (%) (Auto) 0.5 % (0.0-2.0) Sodium Level 147 mEQ/L (135-145) H Potassium Level 3.3 mEQ/L (3.4-4.9) L Chloride Level 107 mEQ/L (98-107) Carbon Dioxide Level 27 mEQ/L (20-30) Anion Gap 13 (5-15) Blood Urea Nitrogen 27 mg/dL (7-23) H Creatinine 1.2 mg/dL (0.7-1.2) Estimat Glomerular Filtration Rate mL/min (>60) Glucose Level 115 mg/dL (74-106) H Calcium Level 9.1 mg/dL (8.6-10.2) Magnesium Level 1.7 mg/dL (1.7-2.5) Total Bilirubin 0.5 mg/dL (0.0-1.2) Direct Bilirubin 0.1 mg/dL (0.1-0.3) Aspartate Amino Transf (AST/SGOT) 29 U/L (5-40) Alanine Aminotransferase (ALT/SGPT) 28 U/L (3-41) Alkaline Phosphatase 95 U/L (40-129) Pro-B-Type Natriuretic Peptide 8243 pg/mL (0-450) H Total Protein 6.7 g/dL (6.6-8.7) Albumin 2.2 g/dL (3.5-5.2) L Arterial Blood pH 7.457 (7.350-7.450) Arterial Blood Partial Pressure CO2 37.0 mmHg (35.0-45.0) Arterial Blood Partial Pressure O2 89.5 mmHg (75.0-100.0) Arterial Blood HCO3 25.5 mmol/L (22.0-26.0) Arterial Blood Oxygen Saturation 96.3 % (92.0-98.0) Arterial Blood Base Excess 1.8 Librado Test Positive General Appearance: well appearing, no apparent distress, alert Head: normocephalic EENT: PERRL/EOMI, normal ENT inspection Neck: supple Respiratory: other - mech vent Cardiovascular: normal rate Gastrointestinal: gt - c/d/i Rectal: deferred Neurologic: alert Skin: normal inspection, normal color, no rash, warm/dry Lymphatic: normal inspection, no adenopathy Current Medications Current Medications Medications (Trade) Dose Ordered Sig/Keira Route PRN Reason Start Time Stop Time Status Last Admin Dose Admin Acetaminophen (Tylenol) 650 mg Q4H PRN ORAL fever 11/14/16 18:00 12/14/16 17:59 11/17/16 21:35 Albuterol/ Ipratropium (DuoNeb 0.5-3(2.5)mg/3ml) 3 ml EVERY 4 HOURS PRN HHN Shortness of Breath 11/17/16 09:30 11/22/16 23:59 Amlodipine Besylate (Norvasc) 10 mg DAILY GT 11/18/16 11:00 12/18/16 10:59 11/18/16 10:49 Chlorhexidine Gluconate (Michelle-Hex 2%) 1 applic QHS TOPIC 11/15/16 21:00 12/15/16 20:59 11/17/16 20:38 Heparin Sodium (Porcine) (Heparin 5000 units/ml) 5,000 units EVERY 12 HOURS SUBQ 11/15/16 21:00 12/15/16 20:59 11/18/16 08:42 Heparin Sodium/ Sodium Chloride (Heparin 2000 units/Ns 1000ml premix) 2,000 unit ONCE PRN INJ PICC LINE PLACEMENT 11/16/16 15:30 11/18/16 23:59 Hydralazine HCl 10 mg 10 mg Q4H PRN IV SBP > 150 11/18/16 12:15 12/18/16 12:14 11/18/16 12:28 Hydromorphone HCl (Dilaudid) 0.5 mg Q4H PRN IVP For severe Pain 11/16/16 22:30 11/23/16 22:29 11/17/16 23:10 Lidocaine HCl (Xylocaine 1% 30ml) 30 ml ONCE PRN INJ PICC PLACEMENT 11/16/16 16:00 11/18/16 23:59 Lorazepam (Ativan 2mg/ml 1ml) 2 mg EVERY 2 HOURS PRN IV For Anxiety 11/14/16 16:00 11/21/16 15:59 11/17/16 21:33 Ondansetron HCl (Zofran) 4 mg Q6H PRN IVP Nausea & Vomiting 11/14/16 20:00 12/14/16 19:59 Pantoprazole (Protonix) 40 mg DAILY IVP 11/15/16 09:00 12/15/16 08:59 11/18/16 08:40 Piperacillin Sod/ Tazobactam Sod/ Dextrose (Zosyn/D5W) 110 ml @ 27.5 mls/hr Q8H IVPB 11/17/16 12:00 11/24/16 11:59 11/18/16 12:28 Polyethylene Glycol 17 gm 17 gm DAILYPRN PRN GT Constipation 11/17/16 10:41 12/15/16 13:59 Potassium Chloride/Dextrose/ Sodium Chloride (KCl/D5 0.2%NS 1000ml) 1,010 ml @ 50 mls/hr [id number] IV 11/19/16 12:00 12/19/16 11:59 Vancomycin HCl 1 ea 1 ea DAILY PRN MISC PER RX PROTOCOL 11/18/16 07:45 12/18/16 07:44 Vancomycin HCl/ Dextrose (Vancomycin/D5W) 275 ml @ 183.3 mls/ hr Q24H IVPB 11/19/16 10:00 11/24/16 09:59 Vitamin A/Vitamin D (A & D Oint) 1 applic EVERY 12 HOURS TOPIC 11/15/16 21:00 12/15/16 20:59 11/18/16 08:40 GI: Plan Problems: (1) Anemia (2) Respiratory distress (3) G-tube site cellulitis (4) Sepsis Plan Assessment - UTI/sepsis - Resp failure - cdiff negative Recommendations - GT site care daily/prn - GTFs per dietary - anemia work up - OB stool r/o GI bleed uncollected - monitor H&H, transfuse prn - Prevacid GT - abx - fu labs Discussed with dr. Solomon. Thank you for referring this patient, we will follow. VILLA SOLOMON 11/22/16 1220: History of Present Illness General Reason for Hospitalization: Dyspnea/Respdistress Present Illness Home Meds Active Scripts [d5w 50c 3d] No Conflict Check Prov:MARY CABELLO 09/05/16 Reported Medications Polyethylene Glycol 3350* (MIRALAX*) 17 Gm Powd.pack, 17 GM ORAL DAILY Y for Constipation, PACKET 09/05/16 Pantoprazole* (PROTONIX*) 40 Mg Vial, 40 MG IVP EVERY 12 HOURS, VIAL 09/05/16 Ondansetron* (ZOFRAN*) 4 Mg/2 Ml Vial, 4 MG IV Q6H Y for Nausea & Vomiting, VIAL 09/05/16 Lorazepam (Lorazepam) 2 Mg/1 Ml Syringe, 1 MG IV Q4H for For Anxiety, EA 09/05/16 Ipratropium [place] 0.5MG/2.5ML (IPRATROPIUM BROMIDE 0.5MG/2.5ML) 0.2 Mg/1 Ml Solution, 0.5 MG HHN Q4HR Y for Shortness of Breath, #28 EA 09/05/16 Hydralazine HCl (Hydralazine HCl) 25 Mg Tablet, 25 MG GT Q8HR, TAB 09/05/16 Heparin Sod (Porcine) (HEPARIN SODIUM*) 5 000/1 Ml Vial, 5000 UNITS SUBQ EVERY 12 HOURS, VIAL 09/05/16 Epoetin Sathish (EPOGEN) 20,000 Unit/2 Ml Vial, 7000 UNIT SUBQ 3XW, VIAL 09/05/16 Bacitracin Zinc (BACITRACIN ZINC) 120 Gm Oint...g., 1 APPLIC TP THREE TIMES A DAY, GM 09/05/16 Docusate Sodium* (COLACE*) 100 Mg Capsule, 100 MG GT DAILY, CAP 08/31/16 Acetaminophen (Acetaminophen) 325 Mg Capsule, 650 MG GT EVERY 4 HOURS, CAP 08/31/16 Zinc Sulfate (ZINC SULFATE*) 220 Mg Capsule, 220 MG GT DAILY, CAP 0 Refills 08/31/16 Ascorbic Acid* (VITAMIN C*) 500 Mg Tablet, 500 MG GT DAILY, #30 TAB 0 Refills 08/31/16 Amino Acids/Protein Hydrolys (PRO-STAT LIQUID) 30 Ml Liquid.pkt, 30 ML GT DAILY , ML 08/31/16 Tamsulosin HCl (Flomax) 0.4 Mg Cap.er.24h, 0.8 MG GT DAILY, CAP 08/31/16 Metoprolol Tartrate* (METOPROLOL TARTRATE*) 25 Mg Tablet, 25 MG GT EVERY 12 HOURS, TAB 08/31/16 Lisinopril* (LISINOPRIL*) 40 Mg Tablet, 40 MG GT DAILY, TAB 08/31/16 Enoxaparin* (LOVENOX*) 40 Mg/0.4 Ml Inj, 40 MG SUBQ DAILY 08/31/16 Atorvastatin Calcium* (ATORVASTATIN CALCIUM*) 40 Mg Tablet, 40 MG GT BEDTIME, TAB 08/31/16 Amlodipine Besylate* (AMLODIPINE BESYLATE*) 10 Mg Tablet, 10 MG GT DAILY, TAB 08/31/16 Aspirin* (ASPIRIN*) 325 Mg Tablet, 325 MG GT DAILY, TAB 08/31/16 Allergies: Coded Allergies: No Known Allergies (Verified , 01/02/09) GI: Plan Plan The patient was seen and examined at bedside and all new and available data was reviewed in the patients chart. I agree with the above findings, impression and plan. (Patient seen earlier today. Signature stamp does not reflect patient encounter time.). -[facility] Dino N.PQuynh Nov 18, 2016 15:03 VILLA SOLOMON Nov 22, 2016 12:20
--- NOTE | 2016-11-18 15:21 | Infectious Diseases Prog Note ---
Assessment/Plan Problems: (1) HCAP (healthcare-associated pneumonia) Assessment & Plan: present on admission, with staph aureus , already on vancomycin and zosyn , will treat for 14 days total (2) Septic shock Assessment & Plan: with proteus mirabilis ESBL + , suspect source is UTI , complicated with respiratory failure, on zosyn , will repeat blood culture to confirm clearance and treat with zosyn for 14 days (3) Respiratory distress Assessment & Plan: due to the above, S/P intubation, continue mechanical ventilation, monitor ABG, titrate oxygen as needed (4) UTI (urinary tract infection) Assessment & Plan: with proteus mirabilis and Providencia stuartii , most likely the source of his sepsis, on zosyn for 14 days (5) Renal failure Assessment & Plan: improving, continue hydration, avoid nephrotoxic meds (6) Hydronephrosis of left kidney Assessment & Plan: with hematuria, most likely due to urethral tear , had urology eval , and no intervention needed for now Subjective ROS Limited/Unobtainable: Yes Allergies: Coded Allergies: No Known Allergies (Verified , 01/02/09) Subjective he is intubated on mechanical ventilation, comfortable, not in distress, off pressors, getting blood transfusion, afebrile Objective Vital Signs Last 24 Hour Vital Signs Date Time Temp Pulse Resp B/P Pulse Ox O2 Delivery O2 Flow Rate FiO2 11/18/16 15:00 68 20 168/88 99 Mechanical Ventilator 40 11/18/16 14:00 69 21 158/85 99 Mechanical Ventilator 40 11/18/16 12:58 68 20 40 11/18/16 12:46 71 20 152/84 100 Mechanical Ventilator 40 11/18/16 12:28 186/92 11/18/16 12:01 67 11/18/16 12:00 40 11/18/16 12:00 97.5 71 20 186/92 99 Mechanical Ventilator 40 11/18/16 11:11 64 20 40 11/18/16 11:00 73 20 171/94 100 Mechanical Ventilator 40 11/18/16 10:49 65 177/89 11/18/16 10:00 65 20 177/89 100 Mechanical Ventilator 40 11/18/16 09:03 69 20 40 11/18/16 09:00 69 23 152/91 100 Mechanical Ventilator 40 11/18/16 08:45 161/80 7/3/17 08:00 97.9 64 21 161/80 99 Mechanical Ventilator 40 11/18/16 08:00 40 11/18/16 08:00 70 11/18/16 07:00 69 23 162/90 99 Mechanical Ventilator 40 11/18/16 06:37 67 20 40 11/18/16 06:00 76 20 173/95 99 Mechanical Ventilator 40 11/18/16 05:00 72 23 153/83 99 Mechanical Ventilator 40 11/18/16 04:41 68 22 40 11/18/16 04:33 169/92 11/18/16 04:00 73 11/18/16 04:00 40 11/18/16 04:00 98.0 67 21 165/98 100 Mechanical Ventilator 40 11/18/16 03:11 67 22 40 11/18/16 03:00 64 20 174/85 100 Mechanical Ventilator 40 11/18/16 02:00 65 23 156/82 100 Mechanical Ventilator 40 11/18/16 01:13 64 23 40 11/18/16 01:00 63 22 161/81 100 Mechanical Ventilator 40 11/18/16 00:44 169/82 11/18/16 00:00 62 11/18/16 00:00 97.9 63 22 155/79 99 Mechanical Ventilator 40 11/18/16 00:00 40 11/17/16 23:40 97.7 11/17/16 23:02 64 24 40 11/17/16 23:00 69 22 164/82 99 Mechanical Ventilator 40 11/17/16 22:34 97.7 11/17/16 22:00 97.7 65 23 157/98 99 Mechanical Ventilator 40 11/17/16 21:00 98.9 70 20 165/105 100 Mechanical Ventilator 40 11/17/16 20:55 72 31 40 11/17/16 20:38 164/92 11/17/16 20:00 70 11/17/16 20:00 97.7 66 18 164/81 100 Mechanical Ventilator 40 11/17/16 20:00 40 11/17/16 19:30 73 30 40 11/17/16 19:00 70 18 148/89 100 Mechanical Ventilator 40 11/17/16 18:00 67 23 149/87 100 Mechanical Ventilator 40 11/17/16 17:16 73 36 40 11/17/16 17:00 68 24 163/89 100 Mechanical Ventilator 40 11/17/16 16:00 40 11/17/16 16:00 68 11/17/16 16:00 98.1 68 22 149/93 100 Mechanical Ventilator 40 Height (Feet): 6 Height (Inches): 1.00 Weight (Pounds): 191 General Appearance: WD/WN, no acute distress HEENT: normocephalic, atraumatic, anicteric, mucous membranes moist Respiratory/Chest: chest wall non-tender, normal breath sounds, no respiratory distress, no accessory muscle use, decreased breath sounds, crackles/rales Cardiovascular: normal peripheral pulses, normal rate, regular rhythm, no gallop/murmur, no JVD Abdomen: normal bowel sounds, soft, non tender, no organomegaly, non distended , no mass Extremities: no cyanosis, no clubbing Skin: no rash, no lesions, ulcers Musculoskeletal: normal muscle bulk Laboratory Tests Test 11/18/16 04:00 11/18/16 08:53 White Blood Count 10.9 K/UL (4.8-10.8) H Red Blood Count 3.64 M/UL (4.70-6.10) L Hemoglobin 9.3 G/DL (14.2-18.0) L Hematocrit 29.8 % (42.0-52.0) L Mean Corpuscular Volume 82 FL (80-99) Mean Corpuscular Hemoglobin 25.7 PG (27.0-31.0) L Mean Corpuscular Hemoglobin Concent 31.4 G/DL (32.0-36.0) L Red Cell Distribution Width 17.1 % (11.6-14.8) H Platelet Count 186 K/UL (150-450) Mean Platelet Volume 6.0 FL (6.5-10.1) L Neutrophils (%) (Auto) 71.3 % (45.0-75.0) Lymphocytes (%) (Auto) 18.4 % (20.0-45.0) L Monocytes (%) (Auto) 5.5 % (1.0-10.0) Eosinophils (%) (Auto) 4.4 % (0.0-3.0) H Basophils (%) (Auto) 0.5 % (0.0-2.0) Sodium Level 147 mEQ/L (135-145) H Potassium Level 3.3 mEQ/L (3.4-4.9) L Chloride Level 107 mEQ/L (98-107) Carbon Dioxide Level 27 mEQ/L (20-30) Anion Gap 13 (5-15) Blood Urea Nitrogen 27 mg/dL (7-23) H Creatinine 1.2 mg/dL (0.7-1.2) Estimat Glomerular Filtration Rate mL/min (>60) Glucose Level 115 mg/dL (74-106) H Calcium Level 9.1 mg/dL (8.6-10.2) Magnesium Level 1.7 mg/dL (1.7-2.5) Total Bilirubin 0.5 mg/dL (0.0-1.2) Direct Bilirubin 0.1 mg/dL (0.1-0.3) Aspartate Amino Transf (AST/SGOT) 29 U/L (5-40) Alanine Aminotransferase (ALT/SGPT) 28 U/L (3-41) Alkaline Phosphatase 95 U/L (40-129) Pro-B-Type Natriuretic Peptide 8243 pg/mL (0-450) H Total Protein 6.7 g/dL (6.6-8.7) Albumin 2.2 g/dL (3.5-5.2) L Arterial Blood pH 7.457 (7.350-7.450) Arterial Blood Partial Pressure CO2 37.0 mmHg (35.0-45.0) Arterial Blood Partial Pressure O2 89.5 mmHg (75.0-100.0) Arterial Blood HCO3 25.5 mmol/L (22.0-26.0) Arterial Blood Oxygen Saturation 96.3 % (92.0-98.0) Arterial Blood Base Excess 1.8 Librado Test Positive Current Medications Medications (Trade) Dose Ordered Sig/Keira Route PRN Reason Start Time Stop Time Status Last Admin Dose Admin Acetaminophen (Tylenol) 650 mg Q4H PRN ORAL fever 11/14/16 18:00 12/14/16 17:59 11/17/16 21:35 Albuterol/ Ipratropium (DuoNeb 0.5-3(2.5)mg/3ml) 3 ml EVERY 4 HOURS PRN HHN Shortness of Breath 11/17/16 09:30 11/22/16 23:59 Amlodipine Besylate (Norvasc) 10 mg DAILY GT 11/18/16 11:00 12/18/16 10:59 11/18/16 10:49 Chlorhexidine Gluconate (Michelle-Hex 2%) 1 applic QHS TOPIC 11/15/16 21:00 12/15/16 20:59 11/17/16 20:38 Heparin Sodium (Porcine) (Heparin 5000 units/ml) 5,000 units EVERY 12 HOURS SUBQ 11/15/16 21:00 12/15/16 20:59 11/18/16 08:42 Heparin Sodium/ Sodium Chloride (Heparin 2000 units/Ns 1000ml premix) 2,000 unit ONCE PRN INJ PICC LINE PLACEMENT 11/16/16 15:30 11/18/16 23:59 Hydralazine HCl 10 mg 10 mg Q4H PRN IV SBP > 150 11/18/16 12:15 12/18/16 12:14 11/18/16 12:28 Hydromorphone HCl (Dilaudid) 0.5 mg Q4H PRN IVP For severe Pain 11/16/16 22:30 11/23/16 22:29 11/17/16 23:10 Lidocaine HCl (Xylocaine 1% 30ml) 30 ml ONCE PRN INJ PICC PLACEMENT 11/16/16 16:00 11/18/16 23:59 Lorazepam (Ativan 2mg/ml 1ml) 2 mg EVERY 2 HOURS PRN IV For Anxiety 11/14/16 16:00 11/21/16 15:59 11/17/16 21:33 Ondansetron HCl (Zofran) 4 mg Q6H PRN IVP Nausea & Vomiting 11/14/16 20:00 12/14/16 19:59 Pantoprazole (Protonix) 40 mg DAILY IVP 11/15/16 09:00 12/15/16 08:59 11/18/16 08:40 Piperacillin Sod/ Tazobactam Sod/ Dextrose (Zosyn/D5W) 110 ml @ 27.5 mls/hr Q8H IVPB 11/17/16 12:00 11/24/16 11:59 11/18/16 12:28 Polyethylene Glycol 17 gm 17 gm DAILYPRN PRN GT Constipation 11/17/16 10:41 12/15/16 13:59 Potassium Chloride/Dextrose/ Sodium Chloride (KCl/D5 0.2%NS 1000ml) 1,010 ml @ 50 mls/hr [id number] IV 11/19/16 12:00 12/19/16 11:59 Vancomycin HCl 1 ea 1 ea DAILY PRN MISC PER RX PROTOCOL 11/18/16 07:45 12/18/16 07:44 Vancomycin HCl/ Dextrose (Vancomycin/D5W) 275 ml @ 183.3 mls/ hr Q24H IVPB 11/19/16 10:00 11/24/16 09:59 Vitamin A/Vitamin D (A & D Oint) 1 applic EVERY 12 HOURS TOPIC 11/15/16 21:00 12/15/16 20:59 11/18/16 08:40 Julianna Trejo M.D. Nov 18, 2016 15:21
[2016-11-18] MEDS ORDERED: D5NS 1000ml IV ONE (15:44)
[2016-11-18] MEDS ORDERED: Tubing IV Secondary IV ONE ×2 (15:44→15:45)
[2016-11-18] MEDS ORDERED: NS 275ml ONE ×2 (15:45)
[2016-11-18] MEDS ORDERED: Sterile Water Irrig 1000ml IRRIG ONE (15:45)
[2016-11-18] MEDS ORDERED: Tubing Blood Filter IV ONE (15:45)
[2016-11-18] MEDS: [UNRECOGNIZED DRUG - OTHER] IV SCH (16:59)
[2016-11-18] MEDS: POTASSIUM CHLORIDE IV SCH (16:59)
[2016-11-18] MEDS: D5 IV SCH (16:59)
[2016-11-18] MEDS: Dyna-Hex 2% Top Sol 8oz TOPIC SCH (20:31)
[2016-11-19] VITALS (23 sets, daily range): BP systolic 111–161; BP diastolic 67–96
[2016-11-19] MEDS: Piperacillin/Tazobactam 3.375 GM in D5W 110 ML IVPB SCH ×3 (04:13→20:16)
[2016-11-19] MEDS: HydrALAZINE 25mg tab ORAL SCH ×3 (05:36→17:41)
[2016-11-19 05:51] LABS: BASOPHILS % (AUTO) 0.5 % (0.0-2.0); EOSINOPHILS % (AUTO) 2.8 % (0.0-3.0); LYMPHOCYTES % (AUTO) 22.6 % (20.0-45.0); MEAN CORPUSCULAR HEMOGLOBIN 25.4 PG (27.0-31.0); MEAN CORPUSCULAR HGB CONC 31.4 G/DL (32.0-36.0); MEAN CORPUSCULAR VOLUME 81 FL (80-99); MEAN PLATELET VOLUME 6.7 FL (6.5-10.1); MONOCYTES % (AUTO) 7.1 % (1.0-10.0); PLATELET COUNT 231 K/UL (150-450); RED CELL DISTRIBUTION WIDTH 17.4 % (11.6-14.8); WHITE BLOOD COUNT 11.3 K/UL (4.8-10.8)
[2016-11-19 06:16] LABS: ALANINE AMINOTRANSFERASE 28 U/L (3-41); ALBUMIN/GLOBULIN RATIO 0.5 (1.0-2.7); ANION GAP 9 (5-15); ASPARTATE AMINO TRANSFERASE 26 U/L (5-40); CALCIUM 9.2 mg/dL (8.6-10.2); CARBON DIOXIDE 28 mEQ/L (20-30); CHLORIDE 102 mEQ/L (98-107); CREATININE 1.4 mg/dL (0.7-1.2); HEMOLYSIS 14; MAGNESIUM 1.6 mg/dL (1.7-2.5); PHOSPHORUS 2.5 mg/dL (2.5-4.8); POTASSIUM 3.6 mEQ/L (3.4-4.9); SODIUM 139 mEQ/L (135-145); TOTAL PROTEIN 7.2 g/dL (6.6-8.7)
--- NOTE | 2016-11-19 07:27 | General Progress Note ---
Assessment/Plan Problem List: (1) Sepsis ICD Codes: A41.9 - Sepsis, unspecified organism SNOMED: 42514914 (2) Septic shock ICD Codes: A41.9 - Sepsis, unspecified organism; R65.21 - Severe sepsis with septic shock SNOMED: 05046182 (3) Renal failure ICD Codes: N19 - Unspecified kidney failure SNOMED: 49013235 Qualifiers: Qualified Codes: N17.9 - Acute kidney failure, unspecified (4) Respiratory distress ICD Codes: R06.00 - Dyspnea, unspecified SNOMED: 319171507 (5) Pneumonia ICD Codes: J18.9 - Pneumonia, unspecified organism SNOMED: 885459706 (6) UTI (urinary tract infection) ICD Codes: N39.0 - Urinary tract infection, site not specified SNOMED: 36843789 Status: stable, progressing, tolerating diet Assessment/Plan vent abx cbc bmp am ltach transfer Subjective Constitutional: Reports: weakness Allergies: Coded Allergies: No Known Allergies (Verified , 01/02/09) All Systems: reviewed and negative except above Subjective intubated sedated in icu Objective Last 24 Hour Vital Signs Date Time Temp Pulse Resp B/P Pulse Ox O2 Delivery O2 Flow Rate FiO2 11/19/16 07:00 79 24 159/88 100 Mechanical Ventilator 40 11/19/16 06:42 78 26 40 11/19/16 06:00 78 22 150/84 100 Mechanical Ventilator 40 11/19/16 05:36 148/82 11/19/16 05:10 73 23 40 11/19/16 05:00 75 23 148/82 100 Mechanical Ventilator 40 11/19/16 04:00 40 11/19/16 04:00 80 11/19/16 04:00 97.8 78 23 150/74 99 Mechanical Ventilator 40 11/19/16 03:12 83 29 40 11/19/16 03:00 74 21 153/76 99 Mechanical Ventilator 40 11/19/16 02:15 161/81 11/19/16 02:00 69 21 161/81 100 Mechanical Ventilator 40 11/19/16 01:00 72 21 154/96 100 Mechanical Ventilator 40 11/19/16 00:51 77 27 40 11/19/16 00:00 75 11/19/16 00:00 98.0 73 21 148/79 100 Mechanical Ventilator 40 11/19/16 00:00 40 11/18/16 23:06 74 23 40 11/18/16 23:00 75 21 150/87 97 Mechanical Ventilator 40 11/18/16 22:00 75 21 143/78 100 Mechanical Ventilator 40 11/18/16 21:30 74 29 40 11/18/16 21:00 76 23 128/78 100 Mechanical Ventilator 40 11/18/16 20:00 40 11/18/16 20:00 97.7 75 22 133/81 100 Mechanical Ventilator 40 11/18/16 20:00 74 11/18/16 19:30 75 30 40 11/18/16 19:00 70 18 124/72 100 Mechanical Ventilator 40 11/18/16 18:38 161/79 11/18/16 18:00 76 18 161/79 100 Mechanical Ventilator 40 11/18/16 17:09 75 22 40 11/18/16 17:00 74 20 146/74 100 Mechanical Ventilator 40 11/18/16 16:00 75 11/18/16 16:00 98.4 72 19 134/86 98 Mechanical Ventilator 40 11/18/16 16:00 40 11/18/16 15:00 68 20 168/88 99 Mechanical Ventilator 40 11/18/16 14:36 66 20 40 11/18/16 14:00 69 21 158/85 99 Mechanical Ventilator 40 11/18/16 12:58 68 20 40 11/18/16 12:46 71 20 152/84 100 Mechanical Ventilator 40 11/18/16 12:28 186/92 11/18/16 12:01 67 11/18/16 12:00 40 11/18/16 12:00 97.5 71 20 186/92 99 Mechanical Ventilator 40 11/18/16 11:11 64 20 40 11/18/16 11:00 73 20 171/94 100 Mechanical Ventilator 40 11/18/16 10:49 65 177/89 11/18/16 10:00 65 20 177/89 100 Mechanical Ventilator 40 11/18/16 09:03 69 20 40 11/18/16 09:00 69 23 152/91 100 Mechanical Ventilator 40 11/18/16 08:45 161/80 11/18/16 08:00 97.9 64 21 161/80 99 Mechanical Ventilator 40 11/18/16 08:00 40 11/18/16 08:00 70 Intake and Output 11/18/16 11/19/16 19:00 07:00 Intake Total 1215.0 ml 1265.0 ml Output Total 2150 ml 1100 ml Balance -935.0 ml 165.0 ml Intake Free Water 120 ml 120 ml IV Total 685.0 ml 605.0 ml Tube Feeding 350 ml 480 ml Other 60 ml 60 ml Output Urine Total 2150 ml 1100 ml Laboratory Tests 11/18/16 08:53: Arterial Blood pH 7.457H, Arterial Blood Partial Pressure CO2 37.0, Arterial Blood Partial Pressure O2 89.5, Arterial Blood HCO3 25.5, Arterial Blood Oxygen Saturation 96.3, Arterial Blood Base Excess 1.8, Librado Test Positive 11/19/16 04:00: White Blood Count 11.3H, Red Blood Count 4.10L, Hemoglobin 10.4L, Hematocrit 33.1L, Mean Corpuscular Volume 81, Mean Corpuscular Hemoglobin 25.4L, Mean Corpuscular Hemoglobin Concent 31.4L, Red Cell Distribution Width 17.4H, Platelet Count 231, Mean Platelet Volume 6.7, Neutrophils (%) (Auto) 67.0, Lymphocytes (%) (Auto) 22.6, Monocytes (%) (Auto) 7.1, Eosinophils (%) (Auto) 2.8, Basophils (%) (Auto) 0.5, Sodium Level 139, Potassium Level 3.6, Chloride Level 102, Carbon Dioxide Level 28, Anion Gap 9, Blood Urea Nitrogen 24H, Creatinine 1.4H, Estimat Glomerular Filtration Rate , Glucose Level 147H, Calcium Level 9.2, Phosphorus Level 2.5, Magnesium Level 1.6L, Total Bilirubin 0.4, Aspartate Amino Transf (AST/SGOT) 26, Alanine Aminotransferase (ALT/SGPT) 28, Alkaline Phosphatase 102, Total Protein 7.2, Albumin 2.4L, Globulin 4.8, Albumin/Globulin Ratio 0.5L Height (Feet): 6 Height (Inches): 1.00 Weight (Pounds): 191 General Appearance: lethargic Neck: normal inspection Cardiovascular: normal peripheral pulses, normal rate, regular rhythm Respiratory/Chest: chest wall non-tender, lungs clear, normal breath sounds Abdomen: normal bowel sounds, non tender, soft Extremities: normal inspection Edema: no edema noted Arm (L), no edema noted Arm (R), no edema noted Leg (L), no edema noted Leg (R), no edema noted Pedal (L), no edema noted Pedal (R), no edema noted Generalized Neurologic: motor weakness Skin: normal pigmentation, warm/dry CASS YANES Nov 19, 2016 07:27
--- NOTE | 2016-11-19 08:14 | Pulmonolgy Critical Care Note ---
Critical Care - Asmt/Plan Problems: (1) Septic shock (2) Respiratory distress (3) Acute encephalopathy (4) Renal failure (5) Decubital ulcer Respiratory: monitor respiratory rate, adjust FIO2, CXR, other Cardiac: continue to monitor HR/BP Renal: F/U I&O, keep IV fluid Infectious Disease: check cultures, continue antibiotics Gastrointestinal: continue feedings/current rate Endocrine: monitor blood sugar Hematologic: monitor H/H Neurologic: PRN Ativan Affect: PRN ativan Prophylaxis: Protonix, Heparin Notes Reviewed: nurse transplant, renal, ID Discussed with: nurses, consultants, case management assistantduty manager - Objective Last 24 Hour Vital Signs Date Time Temp Pulse Resp B/P Pulse Ox O2 Delivery O2 Flow Rate FiO2 11/19/16 08:00 98.0 73 22 124/76 100 Mechanical Ventilator 40 11/19/16 08:00 40 11/19/16 07:00 79 24 159/88 100 Mechanical Ventilator 40 11/19/16 06:42 78 26 40 11/19/16 06:00 78 22 150/84 100 Mechanical Ventilator 40 11/19/16 05:36 148/82 11/19/16 05:10 73 23 40 11/19/16 05:00 75 23 148/82 100 Mechanical Ventilator 40 11/19/16 04:00 40 11/19/16 04:00 80 11/19/16 04:00 97.8 78 23 150/74 99 Mechanical Ventilator 40 11/19/16 03:12 83 29 40 11/19/16 03:00 74 21 153/76 99 Mechanical Ventilator 40 11/19/16 02:15 161/81 11/19/16 02:00 69 21 161/81 100 Mechanical Ventilator 40 11/19/16 01:00 72 21 154/96 100 Mechanical Ventilator 40 11/19/16 00:51 77 27 40 11/19/16 00:00 75 11/19/16 00:00 98.0 73 21 148/79 100 Mechanical Ventilator 40 11/19/16 00:00 40 11/18/16 23:06 74 23 40 11/18/16 23:00 75 21 150/87 97 Mechanical Ventilator 40 11/18/16 22:00 75 21 143/78 100 Mechanical Ventilator 40 11/18/16 21:30 74 29 40 11/18/16 21:00 76 23 128/78 100 Mechanical Ventilator 40 11/18/16 20:00 40 11/18/16 20:00 97.7 75 22 133/81 100 Mechanical Ventilator 40 11/18/16 20:00 74 11/18/16 19:30 75 30 40 11/18/16 19:00 70 18 124/72 100 Mechanical Ventilator 40 11/18/16 18:38 161/79 11/18/16 18:00 76 18 161/79 100 Mechanical Ventilator 40 11/18/16 17:09 75 22 40 11/18/16 17:00 74 20 146/74 100 Mechanical Ventilator 40 11/18/16 16:00 75 11/18/16 16:00 98.4 72 19 134/86 98 Mechanical Ventilator 40 11/18/16 16:00 40 11/18/16 15:00 68 20 168/88 99 Mechanical Ventilator 40 11/18/16 14:36 66 20 40 11/18/16 14:00 69 21 158/85 99 Mechanical Ventilator 40 11/18/16 12:58 68 20 40 11/18/16 12:46 71 20 152/84 100 Mechanical Ventilator 40 11/18/16 12:28 186/92 11/18/16 12:01 67 11/18/16 12:00 40 11/18/16 12:00 97.5 71 20 186/92 99 Mechanical Ventilator 40 11/18/16 11:11 64 20 40 11/18/16 11:00 73 20 171/94 100 Mechanical Ventilator 40 11/18/16 10:49 65 177/89 11/18/16 10:00 65 20 177/89 100 Mechanical Ventilator 40 11/18/16 09:03 69 20 40 11/18/16 09:00 69 23 152/91 100 Mechanical Ventilator 40 11/18/16 08:45 161/80 Status: sedated Condition: grave HEENT: atraumatic Neck: full ROM Lungs: chest wall tender Heart: HR/BP stable Abdomen: soft, non-tender, feeding tube Extremities: no C/C/E Critical Care - Subjective ROS Limited/Unobtainable: Yes ICU Day: 5 Intubation Day: 5 EKG Rhythm: Sinus Rhythm FI02: 40 Vent Support Breath Rate: 18 Vent Support Mode: AC Vent Tidal Volume: 500 Sputum Amount: Small PEEP: 0.0 PIP: 18 Fluids: d5 1/4 NS kcl 20 me2 Tube Feeding Amount: 40 I&O: Intake and Output 11/18/16 11/19/16 19:00 07:00 Intake Total 1215.0 ml 1342.5 ml Output Total 2150 ml 1100 ml Balance -935.0 ml 242.5 ml Intake Free Water 120 ml 120 ml IV Total 685.0 ml 682.5 ml Tube Feeding 350 ml 480 ml Other 60 ml 60 ml Output Urine Total 2150 ml 1100 ml CXR: no change. ET-Tube: 8.0 ET Position: 24 Labs: Laboratory Tests Test 11/18/16 08:53 11/19/16 04:00 Arterial Blood pH 7.457 (7.350-7.450) Arterial Blood Partial Pressure CO2 37.0 mmHg (35.0-45.0) Arterial Blood Partial Pressure O2 89.5 mmHg (75.0-100.0) Arterial Blood HCO3 25.5 mmol/L (22.0-26.0) Arterial Blood Oxygen Saturation 96.3 % (92.0-98.0) Arterial Blood Base Excess 1.8 Librado Test Positive White Blood Count 11.3 K/UL (4.8-10.8) H Red Blood Count 4.10 M/UL (4.70-6.10) L Hemoglobin 10.4 G/DL (14.2-18.0) L Hematocrit 33.1 % (42.0-52.0) L Mean Corpuscular Volume 81 FL (80-99) Mean Corpuscular Hemoglobin 25.4 PG (27.0-31.0) L Mean Corpuscular Hemoglobin Concent 31.4 G/DL (32.0-36.0) L Red Cell Distribution Width 17.4 % (11.6-14.8) H Platelet Count 231 K/UL (150-450) Mean Platelet Volume 6.7 FL (6.5-10.1) Neutrophils (%) (Auto) 67.0 % (45.0-75.0) Lymphocytes (%) (Auto) 22.6 % (20.0-45.0) Monocytes (%) (Auto) 7.1 % (1.0-10.0) Eosinophils (%) (Auto) 2.8 % (0.0-3.0) Basophils (%) (Auto) 0.5 % (0.0-2.0) Sodium Level 139 mEQ/L (135-145) Potassium Level 3.6 mEQ/L (3.4-4.9) Chloride Level 102 mEQ/L (98-107) Carbon Dioxide Level 28 mEQ/L (20-30) Anion Gap 9 (5-15) Blood Urea Nitrogen 24 mg/dL (7-23) H Creatinine 1.4 mg/dL (0.7-1.2) H Estimat Glomerular Filtration Rate mL/min (>60) Glucose Level 147 mg/dL (74-106) H Calcium Level 9.2 mg/dL (8.6-10.2) Phosphorus Level 2.5 mg/dL (2.5-4.8) Magnesium Level 1.6 mg/dL (1.7-2.5) L Total Bilirubin 0.4 mg/dL (0.0-1.2) Aspartate Amino Transf (AST/SGOT) 26 U/L (5-40) Alanine Aminotransferase (ALT/SGPT) 28 U/L (3-41) Alkaline Phosphatase 102 U/L (40-129) Total Protein 7.2 g/dL (6.6-8.7) Albumin 2.4 g/dL (3.5-5.2) L Globulin 4.8 g/dL Albumin/Globulin Ratio 0.5 (1.0-2.7) L MARY CABELLO Nov 19, 2016 08:14
--- NOTE | 2016-11-19 08:49 | General Progress Note ---
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; L03.319 - Cellulitis of trunk, unspecified SNOMED: 065054794, 478363454 (3) Anemia ICD Codes: D64.9 - Anemia, unspecified SNOMED: 082827387 (4) Respiratory distress ICD Codes: R06.00 - Dyspnea, unspecified SNOMED: 761493141 (5) Renal failure ICD Codes: N19 - Unspecified kidney failure SNOMED: 65974006 Qualifiers: Qualified Codes: N17.9 - Acute kidney failure, unspecified Assessment/Plan GTF monitor H&H icu care ppi fu Subjective ROS Limited/Unobtainable: No Allergies: Coded Allergies: No Known Allergies (Verified , 01/02/09) Objective Last 24 Hour Vital Signs Date Time Temp Pulse Resp B/P Pulse Ox O2 Delivery O2 Flow Rate FiO2 11/19/16 08:00 98.0 73 22 124/76 100 Mechanical Ventilator 40 11/19/16 08:00 40 11/19/16 07:00 79 24 159/88 100 Mechanical Ventilator 40 11/19/16 06:42 78 26 40 11/19/16 06:00 78 22 150/84 100 Mechanical Ventilator 40 11/19/16 05:36 148/82 11/19/16 05:10 73 23 40 11/19/16 05:00 75 23 148/82 100 Mechanical Ventilator 40 11/19/16 04:00 40 11/19/16 04:00 80 11/19/16 04:00 97.8 78 23 150/74 99 Mechanical Ventilator 40 11/19/16 03:12 83 29 40 11/19/16 03:00 74 21 153/76 99 Mechanical Ventilator 40 11/19/16 02:15 161/81 11/19/16 02:00 69 21 161/81 100 Mechanical Ventilator 40 11/19/16 01:00 72 21 154/96 100 Mechanical Ventilator 40 11/19/16 00:51 77 27 40 11/19/16 00:00 75 11/19/16 00:00 98.0 73 21 148/79 100 Mechanical Ventilator 40 11/19/16 00:00 40 11/18/16 23:06 74 23 40 11/18/16 23:00 75 21 150/87 97 Mechanical Ventilator 40 11/18/16 22:00 75 21 143/78 100 Mechanical Ventilator 40 11/18/16 21:30 74 29 40 11/18/16 21:00 76 23 128/78 100 Mechanical Ventilator 40 11/18/16 20:00 40 11/18/16 20:00 97.7 75 22 133/81 100 Mechanical Ventilator 40 11/18/16 20:00 74 11/18/16 19:30 75 30 40 11/18/16 19:00 70 18 124/72 100 Mechanical Ventilator 40 11/18/16 18:38 161/79 11/18/16 18:00 76 18 161/79 100 Mechanical Ventilator 40 11/18/16 17:09 75 22 40 11/18/16 17:00 74 20 146/74 100 Mechanical Ventilator 40 11/18/16 16:00 75 11/18/16 16:00 98.4 72 19 134/86 98 Mechanical Ventilator 40 11/18/16 16:00 40 11/18/16 15:00 68 20 168/88 99 Mechanical Ventilator 40 11/18/16 14:36 66 20 40 11/18/16 14:00 69 21 158/85 99 Mechanical Ventilator 40 11/18/16 12:58 68 20 40 11/18/16 12:46 71 20 152/84 100 Mechanical Ventilator 40 11/18/16 12:28 186/92 11/18/16 12:01 67 11/18/16 12:00 40 11/18/16 12:00 97.5 71 20 186/92 99 Mechanical Ventilator 40 11/18/16 11:11 64 20 40 11/18/16 11:00 73 20 171/94 100 Mechanical Ventilator 40 11/18/16 10:49 65 177/89 11/18/16 10:00 65 20 177/89 100 Mechanical Ventilator 40 11/18/16 09:03 69 20 40 11/18/16 09:00 69 23 152/91 100 Mechanical Ventilator 40 Intake and Output 11/18/16 11/19/16 19:00 07:00 Intake Total 1215.0 ml 1342.5 ml Output Total 2150 ml 1100 ml Balance -935.0 ml 242.5 ml Intake Free Water 120 ml 120 ml IV Total 685.0 ml 682.5 ml Tube Feeding 350 ml 480 ml Other 60 ml 60 ml Output Urine Total 2150 ml 1100 ml Laboratory Tests 11/18/16 08:53: Arterial Blood pH 7.457H, Arterial Blood Partial Pressure CO2 37.0, Arterial Blood Partial Pressure O2 89.5, Arterial Blood HCO3 25.5, Arterial Blood Oxygen Saturation 96.3, Arterial Blood Base Excess 1.8, Librado Test Positive 11/19/16 04:00: White Blood Count 11.3H, Red Blood Count 4.10L, Hemoglobin 10.4L, Hematocrit 33.1L, Mean Corpuscular Volume 81, Mean Corpuscular Hemoglobin 25.4L, Mean Corpuscular Hemoglobin Concent 31.4L, Red Cell Distribution Width 17.4H, Platelet Count 231, Mean Platelet Volume 6.7, Neutrophils (%) (Auto) 67.0, Lymphocytes (%) (Auto) 22.6, Monocytes (%) (Auto) 7.1, Eosinophils (%) (Auto) 2.8, Basophils (%) (Auto) 0.5, Sodium Level 139, Potassium Level 3.6, Chloride Level 102, Carbon Dioxide Level 28, Anion Gap 9, Blood Urea Nitrogen 24H, Creatinine 1.4H, Estimat Glomerular Filtration Rate , Glucose Level 147H, Calcium Level 9.2, Phosphorus Level 2.5, Magnesium Level 1.6L, Total Bilirubin 0.4, Aspartate Amino Transf (AST/SGOT) 26, Alanine Aminotransferase (ALT/SGPT) 28, Alkaline Phosphatase 102, Total Protein 7.2, Albumin 2.4L, Globulin 4.8, Albumin/Globulin Ratio 0.5L Height (Feet): 6 Height (Inches): 1.00 Weight (Pounds): 191 General Appearance: no apparent distress EENT: normal ENT inspection Neck: supple Cardiovascular: normal rate Respiratory/Chest: decreased breath sounds Abdomen: normal bowel sounds, non tender, soft Extremities: non-tender MELISSA SOLOMON Nov 19, 2016 08:49
[2016-11-19] MEDS: Vitamin A&D Oint 2oz Tube TOPIC SCH ×2 (09:08→20:33)
[2016-11-19] MEDS: Vancomycin 1 GM in D5W 275 ML IVPB SCH (09:08)
[2016-11-19] MEDS: Heparin 5000 units/ml inj SUBQ SCH ×2 (09:17→20:34)
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
[2016-11-19 09:57] LABS: ABG ALLEN TEST POSITIVE; ABG BASE EXCESS 3.2; ABG PCO2 36.6 mmHg (35.0-45.0)
--- NOTE | 2016-11-19 10:33 | General Progress Note ---
Assessment/Plan Problem List: (1) Decubital ulcer ICD Codes: L89.90 - Pressure ulcer of unspecified site, unspecified stage SNOMED: 662026444 (2) Encephalopathy due to infection ICD Codes: G93.49 - Other encephalopathy; B99.9 - Unspecified infectious disease SNOMED: 70969871, 94600790 (3) Respiratory distress ICD Codes: R06.00 - Dyspnea, unspecified SNOMED: 514651657 (4) Pneumonia ICD Codes: J18.9 - Pneumonia, unspecified organism SNOMED: 404658715 (5) Sepsis ICD Codes: A41.9 - Sepsis, unspecified organism SNOMED: 34490496 Assessment/Plan We will continue Dilaudid. Subjective ROS Limited/Unobtainable: Yes Allergies: Coded Allergies: No Known Allergies (Verified , 01/02/09) Subjective Pt is intubated. Pt is not responding. No Dilaudid was given yesterday. No face grimacing indicating pain. Objective Last 24 Hour Vital Signs Date Time Temp Pulse Resp B/P Pulse Ox O2 Delivery O2 Flow Rate FiO2 11/19/16 10:00 72 20 124/69 100 Mechanical Ventilator 40 11/19/16 09:20 73 31 40 11/19/16 09:08 77 122/79 11/19/16 09:00 81 24 122/79 100 Mechanical Ventilator 40 11/19/16 08:00 98.0 73 22 124/76 100 Mechanical Ventilator 40 11/19/16 08:00 40 11/19/16 08:00 80 11/19/16 07:00 79 24 159/88 100 Mechanical Ventilator 40 11/19/16 06:42 78 26 40 11/19/16 06:00 78 22 150/84 100 Mechanical Ventilator 40 11/19/16 05:36 148/82 11/19/16 05:10 73 23 40 11/19/16 05:00 75 23 148/82 100 Mechanical Ventilator 40 11/19/16 04:00 40 11/19/16 04:00 80 11/19/16 04:00 97.8 78 23 150/74 99 Mechanical Ventilator 40 11/19/16 03:12 83 29 40 11/19/16 03:00 74 21 153/76 99 Mechanical Ventilator 40 11/19/16 02:15 161/81 11/19/16 02:00 69 21 161/81 100 Mechanical Ventilator 40 11/19/16 01:00 72 21 154/96 100 Mechanical Ventilator 40 11/19/16 00:51 77 27 40 7 00:00 75 11/19/16 00:00 98.0 73 21 148/79 100 Mechanical Ventilator 40 11/19/16 00:00 40 11/18/16 23:06 74 23 40 7/17 23:00 75 21 150/87 97 Mechanical Ventilator 40 11/18/16 22:00 75 21 143/78 100 Mechanical Ventilator 40 11/18/16 21:30 74 29 40 11/18/ 21:00 76 23 128/78 100 Mechanical Ventilator 40 11/18/16 20:00 40 11/18/16 20:00 97.7 75 22 133/81 100 Mechanical Ventilator 40 11/18/16 20:00 74 11/18/16 19:30 75 30 40 11/18/16 19:00 70 18 124/72 100 Mechanical Ventilator 40 11/18/16 18:38 161/79 11/18/16 18:00 76 18 161/79 100 Mechanical Ventilator 40 11/18/16 17:09 75 22 40 11/18/16 17:00 74 20 146/74 100 Mechanical Ventilator 40 11/18/16 16:00 75 11/18/16 16:00 98.4 72 19 134/86 98 Mechanical Ventilator 40 11/18/16 16:00 40 11/18/16 15:00 68 20 168/88 99 Mechanical Ventilator 40 11/18/16 14:36 66 20 40 11/18/16 14:00 69 21 158/85 99 Mechanical Ventilator 40 11/18/16 12:58 68 20 40 11/18/16 12:46 71 20 152/84 100 Mechanical Ventilator 40 11/18/16 12:28 186/92 11/18/16 12:01 67 11/18/16 12:00 40 11/18/16 12:00 97.5 71 20 186/92 99 Mechanical Ventilator 40 11/18/16 11:11 64 20 40 17 11:00 73 20 171/94 100 Mechanical Ventilator 40 11/18/16 10:49 65 177/89 Intake and Output 3/17 11/19/16 19:00 07:00 Intake Total 1215.0 ml 1342.5 ml Output Total 2150 ml 1100 ml Balance -935.0 ml 242.5 ml Intake Free Water 120 ml 120 ml IV Total 685.0 ml 682.5 ml Tube Feeding 350 ml 480 ml Other 60 ml 60 ml Output Urine Total 2150 ml 1100 ml Laboratory Tests 11/19/16 04:00: White Blood Count 11.3H, Red Blood Count 4.10L, Hemoglobin 10.4L, Hematocrit 33.1L, Mean Corpuscular Volume 81, Mean Corpuscular Hemoglobin 25.4L, Mean Corpuscular Hemoglobin Concent 31.4L, Red Cell Distribution Width 17.4H, Platelet Count 231, Mean Platelet Volume 6.7, Neutrophils (%) (Auto) 67.0, Lymphocytes (%) (Auto) 22.6, Monocytes (%) (Auto) 7.1, Eosinophils (%) (Auto) 2.8, Basophils (%) (Auto) 0.5, Sodium Level 139, Potassium Level 3.6, Chloride Level 102, Carbon Dioxide Level 28, Anion Gap 9, Blood Urea Nitrogen 24H, Creatinine 1.4H, Estimat Glomerular Filtration Rate , Glucose Level 147H, Calcium Level 9.2, Phosphorus Level 2.5, Magnesium Level 1.6L, Total Bilirubin 0.4, Aspartate Amino Transf (AST/SGOT) 26, Alanine Aminotransferase (ALT/SGPT) 28, Alkaline Phosphatase 102, Total Protein 7.2, Albumin 2.4L, Globulin 4.8, Albumin/Globulin Ratio 0.5L 11/19/16 09:31: Arterial Blood pH 7.481H, Arterial Blood Partial Pressure CO2 36.6, Arterial Blood Partial Pressure O2 99.0, Arterial Blood HCO3 26.7H, Arterial Blood Oxygen Saturation 98.1H, Arterial Blood Base Excess 3.2, Librado Test Positive Height (Feet): 6 Height (Inches): 1.00 Weight (Pounds): 191 General Appearance: other - Intubated and unresponsive EENT: other - ETT in place Cardiovascular: normal rate, regular rhythm Respiratory/Chest: chest wall non-tender, rhonchi - bilaterally, other - On vent Abdomen: non tender, soft Edema: no edema noted Arm (L), no edema noted Arm (R), no edema noted Leg (L), no edema noted Leg (R), no edema noted Pedal (L), no edema noted Pedal (R) Neurologic: unresponsive ROLLY AMANDA Nov 19, 2016 10:33
--- NOTE | 2016-11-19 11:16 | Progress Note ---
DATE: 11/18/2016 CARDIOLOGY PROGRESS NOTE SUBJECTIVE: The patient remains critically ill in the intensive care unit. He is on ventilator support. OBJECTIVE: VITAL SIGNS: Blood pressure 150/80 to 180/90, heart rate in the 60s, and respiratory rate 20. The patient is afebrile. LUNGS: Bilateral breath sounds. HEART: Regular rhythm and rate. Normal S1 and S2 with a fourth heart sound. ABDOMEN: Soft. EXTREMITIES: No edema. LABORATORY AND DIAGNOSTIC DATA: White count 10.9 and hemoglobin 9.3. Sodium 147, potassium 3.3, bicarbonate 27, BUN 27, creatinine 1.2, and magnesium 1.7. Pro-natriuretic peptide 8200. Albumin 2.2. ABG, 7.46, 37, and 90. IMPRESSION: 1. Respiratory failure. 2. Sepsis with shock. 3. Bacteremia with gram-negative rods. 4. Healthcare-acquired pneumonia with methicillin-resistant Staphylococcus aureus. 5. Dehydration. 6. Hypernatremia. 7. Hypovolemia. 8. Pulmonary hypertension. 9. Degenerative valve disease with regurgitation. 10. Hypertensive heart disease with rising blood pressure trend. 11. Acute on chronic diastolic congestive heart failure. PLAN: 1. Antibiotics. 2. Respiratory hygiene. 3. Ventilator support. 4. Hypotonic IV fluids. 5. Advance antihypertensives. Riki Francois M.D. DR: Jen JOB#: [id number] CC:
[2016-11-19] MEDS ORDERED: [UNRECOGNIZED DRUG - OTHER] IV SCH (12:00)
[2016-11-19] MEDS ORDERED: D5 IV SCH (12:00)
[2016-11-19] MEDS ORDERED: POTASSIUM CHLORIDE IV SCH (12:00)
[2016-11-19] MEDS: POTASSIUM CHLORIDE IV SCH (12:30)
[2016-11-19] MEDS: [UNRECOGNIZED DRUG - OTHER] IV SCH (12:30)
[2016-11-19] MEDS: D5 IV SCH (12:30)
--- NOTE | 2016-11-19 14:31 | Infectious Diseases Prog Note ---
Assessment/Plan Problems: (1) HCAP (healthcare-associated pneumonia) Assessment & Plan: present on admission, with staph aureus , already on vancomycin and zosyn , will treat for 14 days total, EOT 11/28/16 (2) Septic shock Assessment & Plan: with proteus mirabilis ESBL + , suspect source is UTI , complicated with respiratory failure, on zosyn , will repeat blood culture to confirm clearance and treat with zosyn for 14 days (3) Respiratory distress Assessment & Plan: due to the above, S/P intubation, continue mechanical ventilation, monitor ABG, titrate oxygen as needed (4) UTI (urinary tract infection) Assessment & Plan: with proteus mirabilis and Providencia stuartii , most likely the source of his sepsis, on zosyn for 14 days (5) Renal failure Assessment & Plan: improving, continue hydration, avoid nephrotoxic meds (6) Hydronephrosis of left kidney Assessment & Plan: with hematuria, most likely due to urethral tear , had urology eval , and no intervention needed for now Subjective ROS Limited/Unobtainable: Yes Allergies: Coded Allergies: No Known Allergies (Verified , 01/02/09) Subjective he is intubated on mechanical ventilation, make facial grimaces , not in distress, off pressors, afebrile Objective Vital Signs Last 24 Hour Vital Signs Date Time Temp Pulse Resp B/P Pulse Ox O2 Delivery O2 Flow Rate FiO2 11/19/16 13:20 69 25 40 11/19/16 12:31 133/74 11/19/16 12:00 40 11/19/16 12:00 98.6 74 29 133/74 100 Mechanical Ventilator 40 11/19/16 11:20 70 24 40 11/19/16 11:00 67 20 111/67 100 Mechanical Ventilator 40 11/19/16 10:00 72 20 124/69 100 Mechanical Ventilator 40 11/19/16 09:20 73 31 40 11/19/16 09:08 77 122/79 11/19/16 09:00 81 24 122/79 100 Mechanical Ventilator 40 11/19/16 08:00 98.0 73 22 124/76 100 Mechanical Ventilator 40 11/19/16 08:00 40 11/19/16 08:00 80 11/19/16 07:00 79 24 159/88 100 Mechanical Ventilator 40 11/19/16 06:42 78 26 40 11/19/16 06:00 78 22 150/84 100 Mechanical Ventilator 40 11/19/16 05:36 148/82 11/19/16 05:10 73 23 40 11/19/16 05:00 75 23 148/82 100 Mechanical Ventilator 40 11/19/16 04:00 40 11/19/16 04:00 80 11/19/16 04:00 97.8 78 23 150/74 99 Mechanical Ventilator 40 11/19/16 03:12 83 29 40 11/19/16 03:00 74 21 153/76 99 Mechanical Ventilator 40 11/19/16 02:15 161/81 11/19/16 02:00 69 21 161/81 100 Mechanical Ventilator 40 11/19/16 01:00 72 21 154/96 100 Mechanical Ventilator 40 11/19/16 00:51 77 27 40 11/19/16 00:00 75 11/19/16 00:00 98.0 73 21 148/79 100 Mechanical Ventilator 40 11/19/16 00:00 40 11/18/16 23:06 74 23 40 11/18/16 23:00 75 21 150/87 97 Mechanical Ventilator 40 11/18/16 22:00 75 21 143/78 100 Mechanical Ventilator 40 11/18/16 21:30 74 29 40 11/18/16 21:00 76 23 128/78 100 Mechanical Ventilator 40 11/18/16 20:00 40 11/18/16 20:00 97.7 75 22 133/81 100 Mechanical Ventilator 40 11/18/16 20:00 74 11/18/16 19:30 75 30 40 11/18/16 19:00 70 18 124/72 100 Mechanical Ventilator 40 11/18/16 18:38 161/79 11/18/16 18:00 76 18 161/79 100 Mechanical Ventilator 40 11/18/16 17:09 75 22 40 11/18/16 17:00 74 20 146/74 100 Mechanical Ventilator 40 11/18/16 16:00 75 11/18/16 16:00 98.4 72 19 134/86 98 Mechanical Ventilator 40 11/18/16 16:00 40 11/18/16 15:00 68 20 168/88 99 Mechanical Ventilator 40 11/18/16 14:36 66 20 40 Height (Feet): 6 Height (Inches): 1.00 Weight (Pounds): 191 General Appearance: WD/WN, no acute distress HEENT: normocephalic, atraumatic, anicteric, mucous membranes moist Respiratory/Chest: normal breath sounds, no respiratory distress, no accessory muscle use, decreased breath sounds, crackles/rales Cardiovascular: normal peripheral pulses, normal rate, regular rhythm, no gallop/murmur, no JVD Abdomen: normal bowel sounds, soft, non tender, no organomegaly, non distended , no mass, no scars Extremities: no cyanosis, no clubbing Skin: no rash, no lesions, no ulcers Lymphatic: no neck adenopathy, no groin adenopathy Laboratory Tests Test 11/19/16 04:00 11/19/16 09:31 White Blood Count 11.3 K/UL (4.8-10.8) H Red Blood Count 4.10 M/UL (4.70-6.10) L Hemoglobin 10.4 G/DL (14.2-18.0) L Hematocrit 33.1 % (42.0-52.0) L Mean Corpuscular Volume 81 FL (80-99) Mean Corpuscular Hemoglobin 25.4 PG (27.0-31.0) L Mean Corpuscular Hemoglobin Concent 31.4 G/DL (32.0-36.0) L Red Cell Distribution Width 17.4 % (11.6-14.8) H Platelet Count 231 K/UL (150-450) Mean Platelet Volume 6.7 FL (6.5-10.1) Neutrophils (%) (Auto) 67.0 % (45.0-75.0) Lymphocytes (%) (Auto) 22.6 % (20.0-45.0) Monocytes (%) (Auto) 7.1 % (1.0-10.0) Eosinophils (%) (Auto) 2.8 % (0.0-3.0) Basophils (%) (Auto) 0.5 % (0.0-2.0) Sodium Level 139 mEQ/L (135-145) Potassium Level 3.6 mEQ/L (3.4-4.9) Chloride Level 102 mEQ/L (98-107) Carbon Dioxide Level 28 mEQ/L (20-30) Anion Gap 9 (5-15) Blood Urea Nitrogen 24 mg/dL (7-23) H Creatinine 1.4 mg/dL (0.7-1.2) H Estimat Glomerular Filtration Rate mL/min (>60) Glucose Level 147 mg/dL (74-106) H Calcium Level 9.2 mg/dL (8.6-10.2) Phosphorus Level 2.5 mg/dL (2.5-4.8) Magnesium Level 1.6 mg/dL (1.7-2.5) L Total Bilirubin 0.4 mg/dL (0.0-1.2) Aspartate Amino Transf (AST/SGOT) 26 U/L (5-40) Alanine Aminotransferase (ALT/SGPT) 28 U/L (3-41) Alkaline Phosphatase 102 U/L (40-129) Total Protein 7.2 g/dL (6.6-8.7) Albumin 2.4 g/dL (3.5-5.2) L Globulin 4.8 g/dL Albumin/Globulin Ratio 0.5 (1.0-2.7) L Arterial Blood pH 7.481 (7.350-7.450) Arterial Blood Partial Pressure CO2 36.6 mmHg (35.0-45.0) Arterial Blood Partial Pressure O2 99.0 mmHg (75.0-100.0) Arterial Blood HCO3 26.7 mmol/L (22.0-26.0) H Arterial Blood Oxygen Saturation 98.1 % (92.0-98.0) H Arterial Blood Base Excess 3.2 Librado Test Positive Current Medications Medications (Trade) Dose Ordered Sig/Keira Route PRN Reason Start Time Stop Time Status Last Admin Dose Admin Acetaminophen (Tylenol) 650 mg Q4H PRN ORAL fever 11/14/16 18:00 12/14/16 17:59 11/17/16 21:35 Albuterol/ Ipratropium (DuoNeb 0.5-3(2.5)mg/3ml) 3 ml EVERY 4 HOURS PRN HHN Shortness of Breath 11/17/16 09:30 11/22/16 23:59 Amlodipine Besylate (Norvasc) 10 mg DAILY GT 11/18/16 11:00 12/18/16 10:59 11/19/16 09:08 Chlorhexidine Gluconate (Michelle-Hex 2%) 1 applic QHS TOPIC 11/15/16 21:00 12/15/16 20:59 11/18/16 20:31 Heparin Sodium (Porcine) (Heparin 5000 units/ml) 5,000 units EVERY 12 HOURS SUBQ 11/15/16 21:00 12/15/16 20:59 11/19/16 09:17 Hydralazine HCl (Apresoline) 25 mg Q6HR ORAL 11/19/16 06:00 12/19/16 05:59 11/19/16 12:31 Hydralazine HCl 10 mg 10 mg Q4H PRN IV SBP > 150 11/18/16 12:15 12/18/16 12:14 11/19/16 02:15 Hydromorphone HCl (Dilaudid) 0.5 mg Q4H PRN IVP For severe Pain 11/16/16 22:30 11/23/16 22:29 11/17/16 23:10 Lansoprazole (Prevacid) 30 mg DAILY GT 11/19/16 09:00 12/19/16 08:59 11/19/16 09:08 Lorazepam (Ativan 2mg/ml 1ml) 2 mg EVERY 2 HOURS PRN IV For Anxiety 11/14/16 16:00 11/21/16 15:59 11/17/16 21:33 Ondansetron HCl (Zofran) 4 mg Q6H PRN IVP Nausea & Vomiting 11/14/16 20:00 12/14/16 19:59 Piperacillin Sod/ Tazobactam Sod/ Dextrose (Zosyn/D5W) 110 ml @ 27.5 mls/hr Q8H IVPB 11/17/16 12:00 11/24/16 11:59 11/19/16 12:30 Polyethylene Glycol 17 gm 17 gm DAILYPRN PRN GT Constipation 11/17/16 10:41 12/15/16 13:59 Potassium Chloride/Dextrose/ Sodium Chloride (KCl/D5 0.2%NS 1000ml) 1,010 ml @ 50 mls/hr [id number] IV 11/18/16 17:00 12/18/16 16:59 11/19/16 12:30 Vancomycin HCl (Vanco rx to dose) 1 ea DAILY PRN MISC PER RX PROTOCOL 11/18/16 07:45 12/18/16 07:44 Vancomycin HCl 1 gm/Dextrose 275 ml @ 183.3 mls/ hr Q24H IVPB 11/19/16 10:00 11/24/16 09:59 11/19/16 09:08 Vitamin A/Vitamin D (A & D Oint) 1 applic EVERY 12 HOURS TOPIC 11/15/16 21:00 12/15/16 20:59 11/19/16 09:08 Julianna Trejo M.D. Nov 19, 2016 14:31
--- NOTE | 2016-11-19 19:45 | Progress Note ---
DATE: 11/19/2016 CARDIOLOGY PROGRESS NOTE SUBJECTIVE: The patient remains in the intensive care unit. Condition remains critical. Prognosis guarded. He continues on full ventilator support via oral endotracheal tube. OBJECTIVE: VITAL SIGNS: Blood pressure 124/76, pulse 73, respiratory rate 22 and afebrile. LUNGS: Coarse breath sounds. Scattered rhonchi. HEART: Regular rhythm and rate. Normal S1 and S2. Feeding tube intact. ABDOMEN: Soft. EXTREMITIES: Without edema. LABORATORY AND DIAGNOSTIC DATA: Monitored rhythm sinus with atrial ectopy. White count 11.3 and hemoglobin 10.4. Potassium 3.6, BUN 24 and creatinine 1.4. Magnesium 1.6. Albumin 2.4. ABG, pH 7.48, pCO2 37, pO2 99. White count 11.3 and hemoglobin 10.4. IMPRESSION: 1. Respiratory failure. 2. Sepsis with shock recovering. 3. Bacteremia. 4. Healthcare acquired pneumonia. 5. Rehydrated, corrected. 6. Hypernatremia, resolved. 7. Hypovolemia. 8. Pulmonary hypertension. 9. Degenerative valve disease with regurgitation. 10. Hypertensive heart disease with labile blood pressure over the past 24 hours. 11. Acute on chronic diastolic congestive heart failure. 12. Severe protein-calorie malnutrition. 13. Hypomagnesemia. PLAN: 1. Continue adequate hypotonic hydration. 2. Nutrition by feeding tube. 3. Respiratory support with wean as able. 4. Antimicrobials per Infectious Disease team[facility] consultant. 5. Antihypertensive has been advanced yesterday and will be further titrated. 6. IV magnesium as ordered. 7. Continue DVT and stress ulcer prophylaxis. 8. Condition remains critical with guarded prognosis. Riki Francois M.D. DR: HECTOR JOB#: [id number] CC:
[2016-11-19] MEDS: Dyna-Hex 2% Top Sol 8oz TOPIC SCH (20:33)
[2016-11-20] VITALS (24 sets, daily range): BP systolic 130–173; BP diastolic 66–91
[2016-11-20] MEDS: HydrALAZINE 25mg tab ORAL SCH ×2 (00:10→05:48)
[2016-11-20] MEDS: Miralax 17gm pkt GT PRN (02:48)
[2016-11-20] MEDS: Piperacillin/Tazobactam 3.375 GM in D5W 110 ML IVPB SCH ×3 (04:04→20:10)
[2016-11-20 06:53] LABS: BASOPHILS % (AUTO) 0.4 % (0.0-2.0); EOSINOPHILS % (AUTO) 4.4 % (0.0-3.0); LYMPHOCYTES % (AUTO) 28.9 % (20.0-45.0); MEAN CORPUSCULAR HEMOGLOBIN 24.9 PG (27.0-31.0); MEAN CORPUSCULAR HGB CONC 30.7 G/DL (32.0-36.0); MEAN CORPUSCULAR VOLUME 81 FL (80-99); MONOCYTES % (AUTO) 9.7 % (1.0-10.0); NEUTROPHILS % (AUTO) 56.7 % (45.0-75.0); PLATELET COUNT 238 K/UL (150-450); RED BLOOD COUNT 3.91 M/UL (4.70-6.10); RED CELL DISTRIBUTION WIDTH 17.5 % (11.6-14.8); WHITE BLOOD COUNT 8.9 K/UL (4.8-10.8)
[2016-11-20 07:11] LABS: PHOSPHORUS 2.9 mg/dL (2.5-4.8)
[2016-11-20 07:13] LABS: ALANINE AMINOTRANSFERASE 24 U/L (3-41); ALBUMIN/GLOBULIN RATIO 0.5 (1.0-2.7); ANION GAP 11 (5-15); ASPARTATE AMINO TRANSFERASE 22 U/L (5-40); CALCIUM 8.9 mg/dL (8.6-10.2); CARBON DIOXIDE 28 mEQ/L (20-30); CHLORIDE 102 mEQ/L (98-107); CREATININE 1.4 mg/dL (0.7-1.2); HEMOLYSIS 2; POTASSIUM 3.3 mEQ/L (3.4-4.9); SODIUM 141 mEQ/L (135-145); TOTAL PROTEIN 7.1 g/dL (6.6-8.7)
[2016-11-20 07:39] LABS: ABG ALLEN TEST POSITIVE; ABG BASE EXCESS 5.1; ABG PCO2 40.8 mmHg (35.0-45.0)
[2016-11-20] MEDS: Heparin 5000 units/ml inj SUBQ SCH ×2 (08:25→20:58)
[2016-11-20] MEDS: POTASSIUM CHLORIDE IV SCH (08:26)
[2016-11-20] MEDS: D5 IV SCH (08:26)
[2016-11-20] MEDS: [UNRECOGNIZED DRUG - OTHER] IV SCH (08:26)
[2016-11-20] MEDS: Vitamin A&D Oint 2oz Tube TOPIC SCH ×2 (08:26→20:58)
--- NOTE | 2016-11-20 10:11 | Pulmonolgy Critical Care Note ---
Critical Care - Asmt/Plan Problems: (1) Septic shock (2) Respiratory distress (3) Acute encephalopathy (4) Renal failure (5) Decubital ulcer Respiratory: monitor respiratory rate, adjust FIO2, CXR Cardiac: continue to monitor HR/BP Renal: F/U I&O, keep IV fluid Infectious Disease: check cultures Gastrointestinal: continue feedings/current rate Endocrine: monitor blood sugar, check HgA1C, continue sliding scale insulin Hematologic: monitor H/H, transfuse if hgb<8.5 Neurologic: PRN Ativan, PRN Morphine, keep patient comfortable Affect: PRN ativan Prophylaxis: Protonix, Heparin Notes Reviewed: computer language coder, cardio, renal Discussed with: nurses, consultants, disease case manager rnmanager domestic - Objective Last 24 Hour Vital Signs Date Time Temp Pulse Resp B/P Pulse Ox O2 Delivery O2 Flow Rate FiO2 11/20/16 10:00 68 21 145/76 100 Mechanical Ventilator 40 11/20/16 09:31 72 28 40 11/20/16 09:01 72 31 40 11/20/16 09:00 98.2 70 28 146/86 100 Mechanical Ventilator 40 11/20/16 08:56 68 29 40 11/20/16 08:21 70 156/78 11/20/16 08:00 70 21 156/78 100 Mechanical Ventilator 40 11/20/16 08:00 40 11/20/16 08:00 70 11/20/16 07:00 66 20 134/78 100 Mechanical Ventilator 40 11/20/16 06:40 68 22 40 11/20/16 06:00 69 20 154/75 100 Mechanical Ventilator 40 11/20/16 05:48 163/86 11/20/16 05:00 68 20 163/86 100 Mechanical Ventilator 40 11/20/16 04:59 70 23 40 11/20/16 04:00 97.9 67 28 156/78 100 Mechanical Ventilator 40 11/20/16 04:00 40 11/20/16 04:00 72 11/20/16 03:14 66 23 40 11/20/16 03:00 68 20 148/89 100 Mechanical Ventilator 40 11/20/16 02:00 69 22 173/87 100 Mechanical Ventilator 40 11/20/16 01:30 68 24 40 11/20/16 01:00 72 26 172/91 100 Mechanical Ventilator 40 11/20/16 00:10 137/84 11/20/16 00:00 74 11/20/16 00:00 97.8 69 20 137/83 99 Mechanical Ventilator 40 11/20/16 00:00 40 11/19/16 23:17 82 24 40 11/19/16 23:00 71 26 125/67 100 Mechanical Ventilator 40 11/19/16 22:00 74 27 129/76 100 Mechanical Ventilator 40 11/19/16 21:08 78 30 40 11/19/16 21:00 78 28 154/88 100 Mechanical Ventilator 40 11/19/16 20:00 40 11/19/16 20:00 98.6 80 31 142/76 100 Mechanical Ventilator 40 11/19/16 20:00 64 11/19/16 19:09 71 25 40 11/19/16 19:09 71 16 Mechanical Ventilator 40 11/19/16 18:00 72 21 142/85 100 Mechanical Ventilator 40 11/19/16 17:41 124/74 11/19/16 17:00 70 19 124/74 99 Mechanical Ventilator 40 11/19/16 16:40 66 25 40 11/19/16 16:00 68 11/19/16 16:00 97.9 66 27 131/75 99 Mechanical Ventilator 40 11/19/16 16:00 40 11/19/16 15:00 68 21 40 11/19/16 15:00 72 23 145/80 100 Mechanical Ventilator 40 11/19/16 14:00 68 23 143/75 99 Mechanical Ventilator 40 11/19/16 13:20 69 25 40 11/19/16 13:00 66 25 116/76 98 Mechanical Ventilator 40 11/19/16 12:31 133/74 11/19/16 12:00 40 11/19/16 12:00 74 11/19/16 12:00 98.6 74 29 133/74 100 Mechanical Ventilator 40 11/19/16 11:20 70 24 40 11/19/16 11:00 67 20 111/67 100 Mechanical Ventilator 40 Status: awake Condition: critical HEENT: atraumatic, normocephalic Lungs: clear Heart: HR/BP stable, HR/BP unstable Abdomen: soft, non-tender, feeding tube Extremities: edema Decubiti: location Critical Care - Subjective ROS Limited/Unobtainable: No ICU Day: 6 Intubation Day: 6 Condition: critical EKG Rhythm: Sinus Rhythm FI02: 40 Vent Support Breath Rate: 18 Vent Support Mode: AC Vent Tidal Volume: 500 Sputum Amount: Small PEEP: 5.0 PIP: 18 Fluids: none Tube Feeding Amount: 40 I&O: Intake and Output 11/19/16 11/20/16 19:00 07:00 Intake Total 1402.50 ml 1382.5 ml Output Total 1165 ml 2235 ml Balance 237.50 ml -852.5 ml Intake Free Water 180 ml IV Total 662.50 ml 792.5 ml Tube Feeding 440 ml 480 ml Other 120 ml 110 ml Output Urine Total 1165 ml 2235 ml CXR: ET in good position ET-Tube: 8.0 ET Position: 24 Labs: Laboratory Tests Test 11/20/16 04:00 11/20/16 07:24 White Blood Count 8.9 K/UL (4.8-10.8) Red Blood Count 3.91 M/UL (4.70-6.10) L Hemoglobin 9.7 G/DL (14.2-18.0) L Hematocrit 31.7 % (42.0-52.0) L Mean Corpuscular Volume 81 FL (80-99) Mean Corpuscular Hemoglobin 24.9 PG (27.0-31.0) L Mean Corpuscular Hemoglobin Concent 30.7 G/DL (32.0-36.0) L Red Cell Distribution Width 17.5 % (11.6-14.8) H Platelet Count 238 K/UL (150-450) Mean Platelet Volume 7.0 FL (6.5-10.1) Neutrophils (%) (Auto) 56.7 % (45.0-75.0) Lymphocytes (%) (Auto) 28.9 % (20.0-45.0) Monocytes (%) (Auto) 9.7 % (1.0-10.0) Eosinophils (%) (Auto) 4.4 % (0.0-3.0) H Basophils (%) (Auto) 0.4 % (0.0-2.0) Sodium Level 141 mEQ/L (135-145) Potassium Level 3.3 mEQ/L (3.4-4.9) L Chloride Level 102 mEQ/L (98-107) Carbon Dioxide Level 28 mEQ/L (20-30) Anion Gap 11 (5-15) Blood Urea Nitrogen 24 mg/dL (7-23) H Creatinine 1.4 mg/dL (0.7-1.2) H Estimat Glomerular Filtration Rate mL/min (>60) Glucose Level 109 mg/dL (74-106) H Calcium Level 8.9 mg/dL (8.6-10.2) Phosphorus Level 2.9 mg/dL (2.5-4.8) Magnesium Level 2.0 mg/dL (1.7-2.5) Total Bilirubin 0.4 mg/dL (0.0-1.2) Aspartate Amino Transf (AST/SGOT) 22 U/L (5-40) Alanine Aminotransferase (ALT/SGPT) 24 U/L (3-41) Alkaline Phosphatase 98 U/L (40-129) Total Protein 7.1 g/dL (6.6-8.7) Albumin 2.4 g/dL (3.5-5.2) L Globulin 4.7 g/dL Albumin/Globulin Ratio 0.5 (1.0-2.7) L Arterial Blood pH 7.470 (7.350-7.450) Arterial Blood Partial Pressure CO2 40.8 mmHg (35.0-45.0) Arterial Blood Partial Pressure O2 100.2 mmHg (75.0-100.0) H Arterial Blood HCO3 29.2 mmol/L (22.0-26.0) H Arterial Blood Oxygen Saturation 97.6 % (92.0-98.0) Arterial Blood Base Excess 5.1 Librado Test Positive MARY CABELLO Nov 20, 2016 10:11
[2016-11-20] MEDS: Vancomycin 1 GM in D5W 275 ML IVPB SCH (10:19)
[2016-11-20] MEDS: HydrALAZINE 25mg tab GT SCH ×2 (11:44→17:43)
--- NOTE | 2016-11-20 14:56 | General Progress Note ---
Assessment/Plan Problem List: (1) Sepsis ICD Codes: A41.9 - Sepsis, unspecified organism SNOMED: 75814961 (2) Septic shock ICD Codes: A41.9 - Sepsis, unspecified organism; R65.21 - Severe sepsis with septic shock SNOMED: 21917653 (3) Renal failure ICD Codes: N19 - Unspecified kidney failure SNOMED: 14625490 Qualifiers: Qualified Codes: N17.9 - Acute kidney failure, unspecified (4) Respiratory distress ICD Codes: R06.00 - Dyspnea, unspecified SNOMED: 071817597 (5) Pneumonia ICD Codes: J18.9 - Pneumonia, unspecified organism SNOMED: 741055580 (6) UTI (urinary tract infection) ICD Codes: N39.0 - Urinary tract infection, site not specified SNOMED: 05635913 Status: stable, progressing, tolerating diet Assessment/Plan vent abx cbc bmp am ltach transfer Subjective Constitutional: Reports: weakness Allergies: Coded Allergies: No Known Allergies (Verified , 01/02/09) All Systems: reviewed and negative except above Subjective intubated sedated in icu Objective Last 24 Hour Vital Signs Date Time Temp Pulse Resp B/P Pulse Ox O2 Delivery O2 Flow Rate FiO2 11/20/16 14:46 71 24 40 11/20/16 14:00 71 23 144/81 100 Mechanical Ventilator 40 11/20/16 13:02 69 22 40 11/20/16 13:00 70 22 132/66 100 Mechanical Ventilator 40 11/20/16 12:00 68 11/20/16 12:00 98.3 68 23 130/68 100 Mechanical Ventilator 40 11/20/16 12:00 40 11/20/16 11:44 132/71 11/20/16 11:01 67 24 40 11/20/16 11:00 66 21 132/71 100 Mechanical Ventilator 40 11/20/16 10:00 68 21 145/76 100 Mechanical Ventilator 40 11/20/16 09:31 72 28 40 11/20/16 09:01 72 31 40 11/20/16 09:00 98.2 70 28 146/86 100 Mechanical Ventilator 40 11/20/16 08:56 68 29 40 11/20/16 08:21 70 156/78 11/20/16 08:00 70 21 156/78 100 Mechanical Ventilator 40 11/20/16 08:00 40 11/20/16 08:00 70 11/20/16 07:00 66 20 134/78 100 Mechanical Ventilator 40 11/20/16 06:40 68 22 40 11/20/16 06:00 69 20 154/75 100 Mechanical Ventilator 40 11/20/16 05:48 163/86 11/20/16 05:00 68 20 163/86 100 Mechanical Ventilator 40 11/20/16 04:59 70 23 40 11/20/16 04:00 97.9 67 28 156/78 100 Mechanical Ventilator 40 11/20/16 04:00 40 11/20/16 04:00 72 11/20/16 03:14 66 23 40 11/20/16 03:00 68 20 148/89 100 Mechanical Ventilator 40 11/20/16 02:00 69 22 173/87 100 Mechanical Ventilator 40 11/20/16 01:30 68 24 40 11/20/16 01:00 72 26 172/91 100 Mechanical Ventilator 40 11/20/16 00:10 137/84 11/20/16 00:00 74 11/20/16 00:00 97.8 69 20 137/83 99 Mechanical Ventilator 40 11/20/16 00:00 40 11/19/16 23:17 82 24 40 11/19/16 23:00 71 26 125/67 100 Mechanical Ventilator 40 11/19/16 22:00 74 27 129/76 100 Mechanical Ventilator 40 11/19/16 21:08 78 30 40 11/19/16 21:00 78 28 154/88 100 Mechanical Ventilator 40 11/19/16 20:00 40 11/19/16 20:00 98.6 80 31 142/76 100 Mechanical Ventilator 40 11/19/16 20:00 64 11/19/16 19:09 71 25 40 11/19/16 19:09 71 16 Mechanical Ventilator 40 11/19/16 18:00 72 21 142/85 100 Mechanical Ventilator 40 11/19/16 17:41 124/74 11/19/16 17:00 70 19 124/74 99 Mechanical Ventilator 40 11/19/16 16:40 66 25 40 11/19/16 16:00 68 11/19/16 16:00 97.9 66 27 131/75 99 Mechanical Ventilator 40 11/19/16 16:00 40 11/19/16 15:00 68 21 40 11/19/16 15:00 72 23 145/80 100 Mechanical Ventilator 40 Intake and Output 11/19/16 11/20/16 19:00 07:00 Intake Total 1402.50 ml 1382.5 ml Output Total 1165 ml 2235 ml Balance 237.50 ml -852.5 ml Intake Free Water 180 ml IV Total 662.50 ml 792.5 ml Tube Feeding 440 ml 480 ml Other 120 ml 110 ml Output Urine Total 1165 ml 2235 ml Laboratory Tests 11/20/16 04:00: White Blood Count 8.9, Red Blood Count 3.91L, Hemoglobin 9.7L, Hematocrit 31.7L , Mean Corpuscular Volume 81, Mean Corpuscular Hemoglobin 24.9L, Mean Corpuscular Hemoglobin Concent 30.7L, Red Cell Distribution Width 17.5H, Platelet Count 238, Mean Platelet Volume 7.0, Neutrophils (%) (Auto) 56.7, Lymphocytes (%) (Auto) 28.9, Monocytes (%) (Auto) 9.7, Eosinophils (%) (Auto) 4.4H, Basophils (%) (Auto) 0.4, Sodium Level 141, Potassium Level 3.3L, Chloride Level 102, Carbon Dioxide Level 28, Anion Gap 11, Blood Urea Nitrogen 24H, Creatinine 1.4H, Estimat Glomerular Filtration Rate , Glucose Level 109H, Calcium Level 8.9, Phosphorus Level 2.9, Magnesium Level 2.0, Total Bilirubin 0.4, Aspartate Amino Transf (AST/SGOT) 22, Alanine Aminotransferase (ALT/SGPT) 24, Alkaline Phosphatase 98, Total Protein 7.1, Albumin 2.4L, Globulin 4.7, Albumin/Globulin Ratio 0.5L 11/20/16 07:24: Arterial Blood pH 7.470H, Arterial Blood Partial Pressure CO2 40.8, Arterial Blood Partial Pressure O2 100.2H, Arterial Blood HCO3 29.2H, Arterial Blood Oxygen Saturation 97.6, Arterial Blood Base Excess 5.1, Librado Test Positive Height (Feet): 6 Height (Inches): 1.00 Weight (Pounds): 188 General Appearance: lethargic EENT: normal ENT inspection Neck: normal alignment Cardiovascular: normal peripheral pulses, normal rate, regular rhythm Respiratory/Chest: chest wall non-tender, lungs clear, normal breath sounds Abdomen: normal bowel sounds, non tender, soft Extremities: normal inspection Edema: no edema noted Arm (L), no edema noted Arm (R), no edema noted Leg (L), no edema noted Leg (R), no edema noted Pedal (L), no edema noted Pedal (R), no edema noted Generalized Neurologic: motor weakness Skin: normal pigmentation, warm/dry CASS YANES Nov 20, 2016 14:56
--- NOTE | 2016-11-20 15:17 | Diagnostic Imaging Report ---
Indication: Dyspnea Comparison: 11/19/16 A single view chest radiograph was obtained. Findings: A right perihilar/upper lobe infiltrate versus asymmetric pulmonary edema demonstrated. Please correlate clinically. Heart size is stable and in the upper limits of normal. Endotracheal tube position remains satisfactory. Impression: No change from the prior day
--- NOTE | 2016-11-20 15:18 | GI Progress Note ---
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 Taveras. Assessment/Plan - GT site care daily/prn - GTFs per dietary - OB stool r/o GI bleed uncollected - monitor H&H, transfuse prn - Prevacid GT - abx - fu labs Subjective Subjective limited Objective Last 24 Hour Vital Signs Date Time Temp Pulse Resp B/P Pulse Ox O2 Delivery O2 Flow Rate FiO2 11/20/16 14:46 71 24 40 11/20/16 14:00 71 23 144/81 100 Mechanical Ventilator 40 11/20/16 13:02 69 22 40 11/20/16 13:00 70 22 132/66 100 Mechanical Ventilator 40 11/20/16 12:00 68 11/20/16 12:00 98.3 68 23 130/68 100 Mechanical Ventilator 40 11/20/16 12:00 40 11/20/16 11:44 132/71 11/20/16 11:01 67 24 40 11/20/16 11:00 66 21 132/71 100 Mechanical Ventilator 40 11/20/16 10:00 68 21 145/76 100 Mechanical Ventilator 40 11/20/16 09:31 72 28 40 11/20/16 09:01 72 31 40 11/20/16 09:00 98.2 70 28 146/86 100 Mechanical Ventilator 40 11/20/16 08:56 68 29 40 11/20/16 08:21 70 156/78 11/20/16 08:00 70 21 156/78 100 Mechanical Ventilator 40 11/20/16 08:00 40 11/20/16 08:00 70 11/20/16 07:00 66 20 134/78 100 Mechanical Ventilator 40 11/20/16 06:40 68 22 40 11/20/16 06:00 69 20 154/75 100 Mechanical Ventilator 40 11/20/16 05:48 163/86 11/20/16 05:00 68 20 163/86 100 Mechanical Ventilator 40 11/20/16 04:59 70 23 40 11/20/16 04:00 97.9 67 28 156/78 100 Mechanical Ventilator 40 11/20/16 04:00 40 11/20/16 04:00 72 11/20/16 03:14 66 23 40 11/20/16 03:00 68 20 148/89 100 Mechanical Ventilator 40 11/20/16 02:00 69 22 173/87 100 Mechanical Ventilator 40 11/20/16 01:30 68 24 40 11/20/16 01:00 72 26 172/91 100 Mechanical Ventilator 40 11/20/16 00:10 137/84 11/20/16 00:00 74 11/20/16 00:00 97.8 69 20 137/83 99 Mechanical Ventilator 40 11/20/16 00:00 40 11/19/16 23:17 82 24 40 11/19/16 23:00 71 26 125/67 100 Mechanical Ventilator 40 11/19/16 22:00 74 27 129/76 100 Mechanical Ventilator 40 11/19/16 21:08 78 30 40 11/19/16 21:00 78 28 154/88 100 Mechanical Ventilator 40 11/19/16 20:00 40 11/19/16 20:00 98.6 80 31 142/76 100 Mechanical Ventilator 40 11/19/16 20:00 64 11/19/16 19:09 71 25 40 11/19/16 19:09 71 16 Mechanical Ventilator 40 11/19/16 18:00 72 21 142/85 100 Mechanical Ventilator 40 11/19/16 17:41 124/74 11/19/16 17:00 70 19 124/74 99 Mechanical Ventilator 40 11/19/16 16:40 66 25 40 11/19/16 16:00 68 11/19/16 16:00 97.9 66 27 131/75 99 Mechanical Ventilator 40 11/19/16 16:00 40 Intake and Output 11/19/16 11/20/16 19:00 07:00 Intake Total 1402.50 ml 1382.5 ml Output Total 1165 ml 2235 ml Balance 237.50 ml -852.5 ml Intake Free Water 180 ml IV Total 662.50 ml 792.5 ml Tube Feeding 440 ml 480 ml Other 120 ml 110 ml Output Urine Total 1165 ml 2235 ml Laboratory Tests Test 11/20/16 04:00 11/20/16 07:24 White Blood Count 8.9 K/UL (4.8-10.8) Red Blood Count 3.91 M/UL (4.70-6.10) L Hemoglobin 9.7 G/DL (14.2-18.0) L Hematocrit 31.7 % (42.0-52.0) L Mean Corpuscular Volume 81 FL (80-99) Mean Corpuscular Hemoglobin 24.9 PG (27.0-31.0) L Mean Corpuscular Hemoglobin Concent 30.7 G/DL (32.0-36.0) L Red Cell Distribution Width 17.5 % (11.6-14.8) H Platelet Count 238 K/UL (150-450) Mean Platelet Volume 7.0 FL (6.5-10.1) Neutrophils (%) (Auto) 56.7 % (45.0-75.0) Lymphocytes (%) (Auto) 28.9 % (20.0-45.0) Monocytes (%) (Auto) 9.7 % (1.0-10.0) Eosinophils (%) (Auto) 4.4 % (0.0-3.0) H Basophils (%) (Auto) 0.4 % (0.0-2.0) Sodium Level 141 mEQ/L (135-145) Potassium Level 3.3 mEQ/L (3.4-4.9) L Chloride Level 102 mEQ/L (98-107) Carbon Dioxide Level 28 mEQ/L (20-30) Anion Gap 11 (5-15) Blood Urea Nitrogen 24 mg/dL (7-23) H Creatinine 1.4 mg/dL (0.7-1.2) H Estimat Glomerular Filtration Rate mL/min (>60) Glucose Level 109 mg/dL (74-106) H Calcium Level 8.9 mg/dL (8.6-10.2) Phosphorus Level 2.9 mg/dL (2.5-4.8) Magnesium Level 2.0 mg/dL (1.7-2.5) Total Bilirubin 0.4 mg/dL (0.0-1.2) Aspartate Amino Transf (AST/SGOT) 22 U/L (5-40) Alanine Aminotransferase (ALT/SGPT) 24 U/L (3-41) Alkaline Phosphatase 98 U/L (40-129) Total Protein 7.1 g/dL (6.6-8.7) Albumin 2.4 g/dL (3.5-5.2) L Globulin 4.7 g/dL Albumin/Globulin Ratio 0.5 (1.0-2.7) L Arterial Blood pH 7.470 (7.350-7.450) Arterial Blood Partial Pressure CO2 40.8 mmHg (35.0-45.0) Arterial Blood Partial Pressure O2 100.2 mmHg (75.0-100.0) H Arterial Blood HCO3 29.2 mmol/L (22.0-26.0) H Arterial Blood Oxygen Saturation 97.6 % (92.0-98.0) Arterial Blood Base Excess 5.1 Librado Test Positive Height (Feet): 6 Height (Inches): 1.00 Weight (Pounds): 188 General Appearance: no apparent distress Cardiovascular: normal rate Respiratory/Chest: other - mech vent Abdominal Exam: site - c/d/i Delfina Francois N.P. Nov 20, 2016 15:18
--- NOTE | 2016-11-20 16:45 | Infectious Diseases Prog Note ---
Assessment/Plan Problems: (1) HCAP (healthcare-associated pneumonia) Assessment & Plan: present on admission, with staph aureus , on vancomycin and zosyn , will switch vancomycin to doxycycline to finish his course of treatment for 14 days total, EOT 11/28/16 (2) Septic shock Assessment & Plan: with proteus mirabilis ESBL + , suspect source is UTI , complicated with respiratory failure, on zosyn , repeated blood culture to confirm clearance is pending , will treat with zosyn for 14 days (3) Respiratory distress Assessment & Plan: due to the above, S/P intubation, continue mechanical ventilation, monitor ABG, titrate oxygen as needed (4) UTI (urinary tract infection) Assessment & Plan: with proteus mirabilis and Providencia stuartii , most likely the source of his sepsis, on zosyn for 14 days (5) Renal failure Assessment & Plan: improving, continue hydration, avoid nephrotoxic meds (6) Hydronephrosis of left kidney Assessment & Plan: with hematuria, most likely due to urethral tear , had urology eval , and no intervention needed for now Subjective ROS Limited/Unobtainable: Yes Allergies: Coded Allergies: No Known Allergies (Verified , 01/02/09) Subjective he is still intubated on mechanical ventilation, make facial grimaces , not in distress, off pressors, afebrile Objective Vital Signs Last 24 Hour Vital Signs Date Time Temp Pulse Resp B/P Pulse Ox O2 Delivery O2 Flow Rate FiO2 11/20/16 16:35 66 28 40 11/20/16 16:00 65 11/20/16 16:00 98.2 65 23 147/76 100 Mechanical Ventilator 40 11/20/16 16:00 40 11/20/16 15:00 68 23 142/75 100 Mechanical Ventilator 40 11/20/16 14:46 71 24 40 11/20/16 14:00 71 23 144/81 100 Mechanical Ventilator 40 11/20/16 13:02 69 22 40 11/20/16 13:00 70 22 132/66 100 Mechanical Ventilator 40 11/20/16 12:00 68 11/20/16 12:00 98.3 68 23 130/68 100 Mechanical Ventilator 40 11/20/16 12:00 40 11/20/16 11:44 132/71 11/20/16 11:01 67 24 40 7/5/17 11:00 66 21 132/71 100 Mechanical Ventilator 40 7/5/17 10:00 68 21 145/76 100 Mechanical Ventilator 40 7// 09:31 72 28 40 7/10/02 09:01 72 31 40 7// 09:00 98.2 70 28 146/86 100 Mechanical Ventilator 40 7// 08:56 68 29 40 7// 08:21 70 156/78 7/10/02 08:00 70 21 156/78 100 Mechanical Ventilator 40 7/10/02 08:00 40 7/10/02 08:00 70 7/10/02 07:00 66 20 134/78 100 Mechanical Ventilator 40 7 06:40 68 22 40 7/10/02 06:00 69 20 154/75 100 Mechanical Ventilator 40 7 05:48 163/86 7/10/02 05:00 68 20 163/86 100 Mechanical Ventilator 40 7 04:59 70 23 40 7 04:00 97.9 67 28 156/78 100 Mechanical Ventilator 40 7 04:00 40 7 04:00 72 7 03:14 66 23 40 7// 03:00 68 20 148/89 100 Mechanical Ventilator 40 7 02:00 69 22 173/87 100 Mechanical Ventilator 40 7 01:30 68 24 40 7// 01:00 72 26 172/91 100 Mechanical Ventilator 40 7/ 00:10 137/84 7// 00:00 74 7 00:00 97.8 69 20 137/83 99 Mechanical Ventilator 40 7/5/17 00:00 40 7//17 23:17 82 24 40 7//17 23:00 71 26 125/67 100 Mechanical Ventilator 40 7//17 22:00 74 27 129/76 100 Mechanical Ventilator 40 7/17 21:08 78 30 40 7//17 21:00 78 28 154/88 100 Mechanical Ventilator 40 7// 20:00 40 7//17 20:00 98.6 80 31 142/76 100 Mechanical Ventilator 40 7//17 20:00 64 7/ 19:09 71 25 40 7// 19:09 71 16 Mechanical Ventilator 40 11/19/16 18:00 72 21 142/85 100 Mechanical Ventilator 40 11/19/16 17:41 124/74 11/19/16 17:00 70 19 124/74 99 Mechanical Ventilator 40 Height (Feet): 6 Height (Inches): 1.00 Weight (Pounds): 188 General Appearance: WD/WN, no acute distress HEENT: normocephalic, atraumatic, anicteric, no JVD Respiratory/Chest: normal breath sounds, no respiratory distress, no accessory muscle use, decreased breath sounds Cardiovascular: normal peripheral pulses, normal rate, regular rhythm, no gallop/murmur, no JVD Abdomen: normal bowel sounds, soft, non tender, no organomegaly, non distended , no mass, no scars Extremities: no cyanosis, no clubbing Skin: no rash, no lesions, ulcers Neurologic/Psychiatric: responsive Laboratory Tests Test 11/20/16 04:00 11/20/16 07:24 White Blood Count 8.9 K/UL (4.8-10.8) Red Blood Count 3.91 M/UL (4.70-6.10) L Hemoglobin 9.7 G/DL (14.2-18.0) L Hematocrit 31.7 % (42.0-52.0) L Mean Corpuscular Volume 81 FL (80-99) Mean Corpuscular Hemoglobin 24.9 PG (27.0-31.0) L Mean Corpuscular Hemoglobin Concent 30.7 G/DL (32.0-36.0) L Red Cell Distribution Width 17.5 % (11.6-14.8) H Platelet Count 238 K/UL (150-450) Mean Platelet Volume 7.0 FL (6.5-10.1) Neutrophils (%) (Auto) 56.7 % (45.0-75.0) Lymphocytes (%) (Auto) 28.9 % (20.0-45.0) Monocytes (%) (Auto) 9.7 % (1.0-10.0) Eosinophils (%) (Auto) 4.4 % (0.0-3.0) H Basophils (%) (Auto) 0.4 % (0.0-2.0) Sodium Level 141 mEQ/L (135-145) Potassium Level 3.3 mEQ/L (3.4-4.9) L Chloride Level 102 mEQ/L (98-107) Carbon Dioxide Level 28 mEQ/L (20-30) Anion Gap 11 (5-15) Blood Urea Nitrogen 24 mg/dL (7-23) H Creatinine 1.4 mg/dL (0.7-1.2) H Estimat Glomerular Filtration Rate mL/min (>60) Glucose Level 109 mg/dL (74-106) H Calcium Level 8.9 mg/dL (8.6-10.2) Phosphorus Level 2.9 mg/dL (2.5-4.8) Magnesium Level 2.0 mg/dL (1.7-2.5) Total Bilirubin 0.4 mg/dL (0.0-1.2) Aspartate Amino Transf (AST/SGOT) 22 U/L (5-40) Alanine Aminotransferase (ALT/SGPT) 24 U/L (3-41) Alkaline Phosphatase 98 U/L (40-129) Total Protein 7.1 g/dL (6.6-8.7) Albumin 2.4 g/dL (3.5-5.2) L Globulin 4.7 g/dL Albumin/Globulin Ratio 0.5 (1.0-2.7) L Arterial Blood pH 7.470 (7.350-7.450) Arterial Blood Partial Pressure CO2 40.8 mmHg (35.0-45.0) Arterial Blood Partial Pressure O2 100.2 mmHg (75.0-100.0) H Arterial Blood HCO3 29.2 mmol/L (22.0-26.0) H Arterial Blood Oxygen Saturation 97.6 % (92.0-98.0) Arterial Blood Base Excess 5.1 Librado Test Positive Current Medications Medications (Trade) Dose Ordered Sig/Keira Route PRN Reason Start Time Stop Time Status Last Admin Dose Admin Acetaminophen (Tylenol) 650 mg Q4H PRN ORAL fever 11/14/16 18:00 12/14/16 17:59 11/17/16 21:35 Albuterol/ Ipratropium (DuoNeb 0.5-3(2.5)mg/3ml) 3 ml EVERY 4 HOURS PRN HHN Shortness of Breath 11/17/16 09:30 11/22/16 23:59 Amlodipine Besylate (Norvasc) 10 mg DAILY GT 11/18/16 11:00 12/18/16 10:59 11/20/16 08:21 Chlorhexidine Gluconate (Michelle-Hex 2%) 1 applic QHS TOPIC 11/15/16 21:00 12/15/16 20:59 11/19/16 20:33 Heparin Sodium (Porcine) (Heparin 5000 units/ml) 5,000 units EVERY 12 HOURS SUBQ 11/15/16 21:00 12/15/16 20:59 11/20/16 08:25 Hydralazine HCl (Apresoline) 25 mg Q6HR GT 11/20/16 10:28 12/19/16 05:59 11/20/16 11:44 Hydralazine HCl 10 mg 10 mg Q4H PRN IV SBP > 150 11/18/16 12:15 12/18/16 12:14 11/19/16 02:15 Hydromorphone HCl (Dilaudid) 0.5 mg Q4H PRN IVP For severe Pain 11/16/16 22:30 11/23/16 22:29 11/17/16 23:10 Lansoprazole (Prevacid) 30 mg DAILY GT 11/19/16 09:00 12/19/16 08:59 11/20/16 08:23 Lorazepam (Ativan 2mg/ml 1ml) 2 mg EVERY 2 HOURS PRN IV For Anxiety 11/14/16 16:00 11/21/16 15:59 11/17/16 21:33 Ondansetron HCl (Zofran) 4 mg Q6H PRN IVP Nausea & Vomiting 11/14/16 20:00 12/14/16 19:59 Piperacillin Sod/ Tazobactam Sod/ Dextrose (Zosyn/D5W) 110 ml @ 27.5 mls/hr Q8H IVPB 11/17/16 12:00 11/24/16 11:59 11/20/16 11:44 Polyethylene Glycol 17 gm 17 gm DAILYPRN PRN GT Constipation 11/17/16 10:41 12/15/16 13:59 11/20/16 02:48 Potassium Chloride/Dextrose/ Sodium Chloride (KCl/D5 0.2%NS 1000ml) 1,010 ml @ 50 mls/hr [id number] IV 11/18/16 17:00 8/2/17 16:59 11/20/16 08:26 Vitamin A/Vitamin D (A & D Oint) 1 applic EVERY 12 HOURS TOPIC 11/15/16 21:00 12/15/16 20:59 11/20/16 08:26 Julianna Trejo M.D. Nov 20, 2016 16:45
[2016-11-20] MEDS: LORazepam Inj 2mg/ml 1ml IV PRN (16:50)
--- NOTE | 2016-11-20 17:35 | General Progress Note ---
Assessment/Plan Assessment/Plan (1) Respiratory distress (2) Incubated on Ventilator (3) Septic Shock (4) Sacral decubitus ulcer Pt will be continued on Dilaudid. D/w Dr. Rodríguez and he concurred. Subjective Date patient seen: Nov 20, 2016 Time patient seen: 07:30 - am ROS Limited/Unobtainable: Yes Allergies: Coded Allergies: No Known Allergies (Verified , 01/02/09) Subjective Patient is still intubated on ventilator. He is in no signs of pain however as per nurse has been restless. Weaning process has been started. Objective Last 24 Hour Vital Signs Date Time Temp Pulse Resp B/P Pulse Ox O2 Delivery O2 Flow Rate FiO2 11/20/16 17:03 66 23 146/76 100 Mechanical Ventilator 40 11/20/16 16:35 66 28 40 11/20/16 16:00 65 11/20/16 16:00 98.2 65 23 147/76 100 Mechanical Ventilator 40 11/20/16 16:00 40 11/20/16 15:00 68 23 142/75 100 Mechanical Ventilator 40 11/20/16 14:46 71 24 40 11/20/16 14:00 71 23 144/81 100 Mechanical Ventilator 40 11/20/16 13:02 69 22 40 11/20/16 13:00 70 22 132/66 100 Mechanical Ventilator 40 11/20/16 12:00 68 11/20/16 12:00 98.3 68 23 130/68 100 Mechanical Ventilator 40 11/20/16 12:00 40 11/20/16 11:44 132/71 11/20/16 11:01 67 24 40 11/20/16 11:00 66 21 132/71 100 Mechanical Ventilator 40 11/20/16 10:00 68 21 145/76 100 Mechanical Ventilator 40 11/20/16 09:31 72 28 40 11/20/16 09:01 72 31 40 11/20/16 09:00 98.2 70 28 146/86 100 Mechanical Ventilator 40 11/20/16 08:56 68 29 40 11/20/16 08:21 70 156/78 11/20/16 08:00 70 21 156/78 100 Mechanical Ventilator 40 11/20/16 08:00 40 11/20/16 08:00 70 11/20/16 07:00 66 20 134/78 100 Mechanical Ventilator 40 11/20/16 06:40 68 22 40 11/20/16 06:00 69 20 154/75 100 Mechanical Ventilator 40 11/20/16 05:48 163/86 11/20/16 05:00 68 20 163/86 100 Mechanical Ventilator 40 11/20/16 04:59 70 23 40 11/20/16 04:00 97.9 67 28 156/78 100 Mechanical Ventilator 40 11/20/16 04:00 40 11/20/16 04:00 72 11/20/16 03:14 66 23 40 11/20/16 03:00 68 20 148/89 100 Mechanical Ventilator 40 11/20/16 02:00 69 22 173/87 100 Mechanical Ventilator 40 11/20/16 01:30 68 24 40 11/20/16 01:00 72 26 172/91 100 Mechanical Ventilator 40 11/20/16 00:10 137/84 11/20/16 00:00 74 11/20/16 00:00 97.8 69 20 137/83 99 Mechanical Ventilator 40 11/20/16 00:00 40 11/19/16 23:17 82 24 40 11/19/16 23:00 71 26 125/67 100 Mechanical Ventilator 40 11/19/16 22:00 74 27 129/76 100 Mechanical Ventilator 40 11/19/16 21:08 78 30 40 11/19/16 21:00 78 28 154/88 100 Mechanical Ventilator 40 11/19/16 20:00 40 11/19/16 20:00 98.6 80 31 142/76 100 Mechanical Ventilator 40 11/19/16 20:00 64 11/19/16 19:09 71 25 40 11/19/16 19:09 71 16 Mechanical Ventilator 40 11/19/16 18:00 72 21 142/85 100 Mechanical Ventilator 40 11/19/16 17:41 124/74 Intake and Output 11/19/16 11/20/16 19:00 07:00 Intake Total 1402.50 ml 1382.5 ml Output Total 1165 ml 2235 ml Balance 237.50 ml -852.5 ml Intake Free Water 180 ml IV Total 662.50 ml 792.5 ml Tube Feeding 440 ml 480 ml Other 120 ml 110 ml Output Urine Total 1165 ml 2235 ml Laboratory Tests 11/20/16 04:00: White Blood Count 8.9, Red Blood Count 3.91L, Hemoglobin 9.7L, Hematocrit 31.7L , Mean Corpuscular Volume 81, Mean Corpuscular Hemoglobin 24.9L, Mean Corpuscular Hemoglobin Concent 30.7L, Red Cell Distribution Width 17.5H, Platelet Count 238, Mean Platelet Volume 7.0, Neutrophils (%) (Auto) 56.7, Lymphocytes (%) (Auto) 28.9, Monocytes (%) (Auto) 9.7, Eosinophils (%) (Auto) 4.4H, Basophils (%) (Auto) 0.4, Sodium Level 141, Potassium Level 3.3L, Chloride Level 102, Carbon Dioxide Level 28, Anion Gap 11, Blood Urea Nitrogen 24H, Creatinine 1.4H, Estimat Glomerular Filtration Rate , Glucose Level 109H, Calcium Level 8.9, Phosphorus Level 2.9, Magnesium Level 2.0, Total Bilirubin 0.4, Aspartate Amino Transf (AST/SGOT) 22, Alanine Aminotransferase (ALT/SGPT) 24, Alkaline Phosphatase 98, Total Protein 7.1, Albumin 2.4L, Globulin 4.7, Albumin/Globulin Ratio 0.5L 11/20/16 07:24: Arterial Blood pH 7.470H, Arterial Blood Partial Pressure CO2 40.8, Arterial Blood Partial Pressure O2 100.2H, Arterial Blood HCO3 29.2H, Arterial Blood Oxygen Saturation 97.6, Arterial Blood Base Excess 5.1, Librado Test Positive Height (Feet): 6 Height (Inches): 1.00 Weight (Pounds): 188 Edema: trace edema Objective General Appearance: other - Intubated and unresponsive EENT: other - ETT in place Cardiovascular: normal rate, regular rhythm Respiratory/Chest: chest wall non-tender, rhonchi - bilaterally, other - On vent Abdomen: non tender, soft Edema: no edema noted Arm (L), no edema noted Arm (R), no edema noted Leg (L), no edema noted Leg (R), no edema noted Pedal (L), no edema noted Pedal (R) Neurologic: unresponsive AMMY LEMOS Nov 20, 2016 17:35
[2016-11-20] MEDS: Doxycycline Hyclate 100 MG in D5W 110 ML IV SCH (17:51)
[2016-11-20] MEDS: Dyna-Hex 2% Top Sol 8oz TOPIC SCH (20:58)
[2016-11-20] MEDS ORDERED: NS 275ml ONE (21:19)
[2016-11-20] MEDS ORDERED: D5NS 1000ml IV ONE (21:19)
[2016-11-20] MEDS ORDERED: Tubing IV Secondary IV ONE (21:19)
[2016-11-20] MEDS ORDERED: KCl 10% 40mEq/30ml liquid NG ONE (22:00)
--- NOTE | 2016-11-20 22:30 | Progress Note ---
DATE: 11/20/2016 CARDIOLOGY PROGRESS NOTE CRITICAL CARE SUBJECTIVE: The patient remains in the intensive care unit on ventilator support. He continues on IV antibiotics. Status post tracheostomy. OBJECTIVE: VITAL SIGNS: Blood pressure 144/81, pulse 71, and respiratory rate 23. LUNGS: Coarse breath sounds. Scattered rhonchi. HEART: Regular rhythm and rate. Normal S1 and S2. ABDOMEN: Soft. EXTREMITIES: There is 1+ dependent edema. NEUROLOGIC: Sedated and non-communicative. LABORATORY AND DIAGNOSTIC DATA: White count 8.9 and hemoglobin 9.7. Sodium 141, potassium 3.3, bicarbonate 28, BUN 24 and creatinine 1.4. Magnesium 2. Chest x-ray reveals right hilar and upper lobe infiltrate versus asymmetric pulmonary edema. IMPRESSION: 1. Acute respiratory failure. 2. Pneumonia. 3. Sepsis. 4. Congestive heart failure. PLAN: 1. Diuresis. 2. Antimicrobials. 3. Ventilator support. 4. Discontinue intravenous fluids. Riki Francois M.D. DR: HECTOR JOB#: [id number] CC:
[2016-11-21] VITALS (24 sets, daily range): BP systolic 101–165; BP diastolic 54–93
[2016-11-21] MEDS: HydrALAZINE 25mg tab GT SCH ×5 (00:10→23:47)
[2016-11-21] MEDS: Miralax 17gm pkt GT PRN (03:06)
[2016-11-21] MEDS: Piperacillin/Tazobactam 3.375 GM in D5W 110 ML IVPB SCH ×3 (03:55→20:03)
[2016-11-21 05:03] LABS: BASOPHILS % (AUTO) 0.6 % (0.0-2.0); EOSINOPHILS % (AUTO) 5.2 % (0.0-3.0); LYMPHOCYTES % (AUTO) 27.9 % (20.0-45.0); MEAN CORPUSCULAR HEMOGLOBIN 24.6 PG (27.0-31.0); MEAN CORPUSCULAR HGB CONC 30.2 G/DL (32.0-36.0); MEAN CORPUSCULAR VOLUME 81 FL (80-99); MEAN PLATELET VOLUME 7.5 FL (6.5-10.1); NEUTROPHILS % (AUTO) 56.1 % (45.0-75.0); PLATELET COUNT 239 K/UL (150-450); RED BLOOD COUNT 3.86 M/UL (4.70-6.10); RED CELL DISTRIBUTION WIDTH 17.2 % (11.6-14.8); WHITE BLOOD COUNT 9.1 K/UL (4.8-10.8)
[2016-11-21 05:31] LABS: ALANINE AMINOTRANSFERASE 21 U/L (3-41); ALBUMIN/GLOBULIN RATIO 0.5 (1.0-2.7); ANION GAP 9 (5-15); ASPARTATE AMINO TRANSFERASE 20 U/L (5-40); CALCIUM 8.8 mg/dL (8.6-10.2); CARBON DIOXIDE 29 mEQ/L (20-30); CHLORIDE 101 mEQ/L (98-107); CREATININE 1.4 mg/dL (0.7-1.2); HEMOLYSIS 1; POTASSIUM 3.5 mEQ/L (3.4-4.9); SODIUM 139 mEQ/L (135-145)
[2016-11-21] MEDS: Doxycycline Hyclate 100 MG in D5W 110 ML IV SCH ×2 (05:31→17:28)
--- NOTE | 2016-11-21 08:15 | Diagnostic Imaging Report ---
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 The right upper extremity was prepped with alcohol. All elements of maximal sterile barrier technique were followed including usage of a cap, mask, sterile gown, sterile gloves, hand hygiene and a large sterile sheet. Sonographic evaluation of the upper extremity was performed demonstrating a patent and compressible brachial vein. Access was obtained under real-time ultrasound guidance and digital image was saved and archived. An .018 wire was introduced. Needle exchanged for a 5 Icelandic peel-away sheath. Measurements were obtained. A 5 [place]ic dual-lumen Power PICC line catheter was cut to 40 cm and introduced over the wire. Peel-away sheath and wire were removed.Catheter was secured to the skin using 2-0 Prolene suture. Both ports aspirate and flush easily. Post procedure chest x-ray demonstrates good position of the PICC line catheter within the SVC. Impression: Successful placement of an upper extremity PICC line catheter
[2016-11-21] MEDS: Heparin 5000 units/ml inj SUBQ SCH ×2 (08:48→21:12)
[2016-11-21] MEDS: Vitamin A&D Oint 2oz Tube TOPIC SCH ×2 (08:49→21:10)
--- NOTE | 2016-11-21 08:59 | General Progress Note ---
Assessment/Plan Assessment/Plan (1) Respiratory distress (2) Incubated on Ventilator (3) Septic Shock (4) Sacral decubitus ulcer Pt will be continued on Dilaudid. D/w Dr. Rodríguez and he concurred. Subjective Date patient seen: Nov 21, 2016 Time patient seen: 08:30 - am Allergies: Coded Allergies: No Known Allergies (Verified , 01/02/09) Subjective Patient is still intubated on ventilator. He is in no signs of pain. Objective Last 24 Hour Vital Signs Date Time Temp Pulse Resp B/P Pulse Ox O2 Delivery O2 Flow Rate FiO2 11/21/16 08:48 65 165/84 11/21/16 08:00 40 11/21/16 07:22 66 21 40 11/21/16 07:00 70 20 139/77 100 Mechanical Ventilator 40 11/21/16 06:00 75 20 142/74 100 Mechanical Ventilator 40 11/21/16 05:31 139/59 11/21/16 05:20 69 24 40 11/21/16 05:00 67 22 139/59 100 Mechanical Ventilator 40 11/21/16 04:00 98.3 67 20 128/78 100 Mechanical Ventilator 40 11/21/16 04:00 40 11/21/16 04:00 71 11/21/16 03:13 68 21 40 11/21/16 03:00 72 27 146/76 100 Mechanical Ventilator 40 11/21/16 02:00 79 22 133/62 99 Mechanical Ventilator 40 11/21/16 01:30 71 23 40 11/21/16 01:00 71 20 160/84 100 Mechanical Ventilator 40 11/21/16 00:10 138/66 11/21/16 00:00 40 11/21/16 00:00 98.2 69 20 135/79 100 Mechanical Ventilator 40 11/21/16 00:00 67 11/20/16 23:20 70 18 40 11/20/16 23:00 66 24 138/66 100 Mechanical Ventilator 40 11/20/16 22:00 72 25 172/80 100 Mechanical Ventilator 40 11/20/16 21:30 68 22 40 11/20/16 21:00 75 25 151/85 100 Mechanical Ventilator 40 11/20/16 20:00 76 11/20/16 20:00 40 11/20/16 20:00 98.3 67 23 135/72 100 Mechanical Ventilator 40 11/20/16 19:30 77 18 40 11/20/16 19:00 72 23 130/75 100 Mechanical Ventilator 40 11/20/16 18:00 65 23 149/76 100 Mechanical Ventilator 40 11/20/16 17:43 149/75 11/20/16 17:03 66 23 146/76 100 Mechanical Ventilator 40 11/20/16 16:35 66 28 40 11/20/16 16:00 65 11/20/16 16:00 98.2 65 23 147/76 100 Mechanical Ventilator 40 11/20/16 16:00 40 11/20/16 15:00 68 23 142/75 100 Mechanical Ventilator 40 11/20/16 14:46 71 24 40 11/20/16 14:00 71 23 144/81 100 Mechanical Ventilator 40 11/20/16 13:02 69 22 40 11/20/16 13:00 70 22 132/66 100 Mechanical Ventilator 40 11/20/16 12:00 68 11/20/16 12:00 98.3 68 23 130/68 100 Mechanical Ventilator 40 11/20/16 12:00 40 11/20/16 11:44 132/71 11/20/16 11:01 67 24 40 11/20/16 11:00 66 21 132/71 100 Mechanical Ventilator 40 11/20/16 10:00 68 21 145/76 100 Mechanical Ventilator 40 11/20/16 09:31 72 28 40 11/20/16 09:01 72 31 40 11/20/16 09:00 98.2 70 28 146/86 100 Mechanical Ventilator 40 Intake and Output 11/20/16 11/21/16 19:00 07:00 Intake Total 1427.5 ml 1050.5 ml Output Total 480 ml 2550 ml Balance 947.5 ml -1499.5 ml Intake Free Water 100 ml IV Total 847.5 ml 480.5 ml Tube Feeding 480 ml 480 ml Other 90 ml Output Urine Total 480 ml 2550 ml # Bowel Movements 1 Laboratory Tests 11/21/16 04:00: White Blood Count 9.1, Red Blood Count 3.86L, Hemoglobin 9.5L, Hematocrit 31.5L , Mean Corpuscular Volume 81, Mean Corpuscular Hemoglobin 24.6L, Mean Corpuscular Hemoglobin Concent 30.2L, Red Cell Distribution Width 17.2H, Platelet Count 239, Mean Platelet Volume 7.5, Neutrophils (%) (Auto) 56.1, Lymphocytes (%) (Auto) 27.9, Monocytes (%) (Auto) 10.0, Eosinophils (%) (Auto) 5.2H, Basophils (%) (Auto) 0.6, Sodium Level 139, Potassium Level 3.5, Chloride Level 101, Carbon Dioxide Level 29, Anion Gap 9, Blood Urea Nitrogen 23, Creatinine 1.4H, Estimat Glomerular Filtration Rate , Glucose Level 116H, Calcium Level 8.8, Total Bilirubin 0.4, Aspartate Amino Transf (AST/SGOT) 20, Alanine Aminotransferase (ALT/SGPT) 21, Alkaline Phosphatase 84, Pro-B-Type Natriuretic Peptide 4197H, Total Protein 7.0, Albumin 2.5L, Globulin 4.5, Albumin/Globulin Ratio 0.5L Height (Feet): 6 Height (Inches): 1.00 Weight (Pounds): 178 Objective General Appearance: other - Intubated and unresponsive EENT: other - ETT in place Cardiovascular: normal rate, regular rhythm Respiratory/Chest: chest wall non-tender, rhonchi - bilaterally, other - On vent Abdomen: non tender, soft Edema: no edema noted Arm (L), no edema noted Arm (R), no edema noted Leg (L), no edema noted Leg (R), no edema noted Pedal (L), no edema noted Pedal (R) Neurologic: unresponsive AMMY LEMOS Nov 21, 2016 08:59
--- NOTE | 2016-11-21 11:36 | Pulmonolgy Critical Care Note ---
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, 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 Discussed with: nurses, consultants, 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 psychology - Objective Last 24 Hour Vital Signs Date Time Temp Pulse Resp B/P Pulse Ox O2 Delivery O2 Flow Rate FiO2 11/21/16 11:23 147/67 11/21/16 11:00 65 21 147/67 96 Mechanical Ventilator 40 11/21/16 10:58 65 22 40 11/21/16 10:00 65 21 145/65 97 Mechanical Ventilator 40 11/21/16 09:21 64 22 40 11/21/16 09:00 64 21 147/79 97 Mechanical Ventilator 40 11/21/16 08:48 65 165/84 11/21/16 08:00 98.5 67 20 165/84 100 Mechanical Ventilator 40 11/21/16 08:00 40 11/21/16 08:00 65 11/21/16 07:22 66 21 40 11/21/16 07:00 70 20 139/77 100 Mechanical Ventilator 40 11/21/16 06:00 75 20 142/74 100 Mechanical Ventilator 40 11/21/16 05:31 139/59 11/21/16 05:20 69 24 40 11/21/16 05:00 67 22 139/59 100 Mechanical Ventilator 40 11/21/16 04:00 98.3 67 20 128/78 100 Mechanical Ventilator 40 11/21/16 04:00 40 11/21/16 04:00 71 11/21/16 03:13 68 21 40 11/21/16 03:00 72 27 146/76 100 Mechanical Ventilator 40 11/21/16 02:00 79 22 133/62 99 Mechanical Ventilator 40 11/21/16 01:30 71 23 40 11/21/16 01:00 71 20 160/84 100 Mechanical Ventilator 40 11/21/16 00:10 138/66 7/6/17 00:00 40 11/21/16 00:00 98.2 69 20 135/79 100 Mechanical Ventilator 40 11/21/16 00:00 67 11/20/16 23:20 70 18 40 11/20/16 23:00 66 24 138/66 100 Mechanical Ventilator 40 11/20/16 22:00 72 25 172/80 100 Mechanical Ventilator 40 11/20/16 21:30 68 22 40 11/20/16 21:00 75 25 151/85 100 Mechanical Ventilator 40 11/20/16 20:00 76 11/20/16 20:00 40 11/20/16 20:00 98.3 67 23 135/72 100 Mechanical Ventilator 40 11/20/16 19:30 77 18 40 11/20/16 19:00 72 23 130/75 100 Mechanical Ventilator 40 11/20/16 18:00 65 23 149/76 100 Mechanical Ventilator 40 11/20/16 17:43 149/75 11/20/16 17:03 66 23 146/76 100 Mechanical Ventilator 40 11/20/16 16:35 66 28 40 11/20/16 16:00 65 11/20/16 16:00 98.2 65 23 147/76 100 Mechanical Ventilator 40 11/20/16 16:00 40 11/20/16 15:00 68 23 142/75 100 Mechanical Ventilator 40 11/20/16 14:46 71 24 40 11/20/16 14:00 71 23 144/81 100 Mechanical Ventilator 40 11/20/16 13:02 69 22 40 11/20/16 13:00 70 22 132/66 100 Mechanical Ventilator 40 11/20/16 12:00 68 11/20/16 12:00 98.3 68 23 130/68 100 Mechanical Ventilator 40 11/20/16 12:00 40 11/20/16 11:44 132/71 Status: sedated Condition: critical HEENT: atraumatic Neck: full ROM Lungs: clear Heart: HR/BP stable, HR/BP unstable Abdomen: soft, non-tender, active bowel sounds Extremities: no C/C/E, edema Decubiti: location Critical Care - Subjective ROS Limited/Unobtainable: Yes ICU Day: 7 Intubation Day: 7 Condition: critical EKG Rhythm: Sinus Rhythm FI02: 40 Vent Support Breath Rate: 18 Vent Support Mode: AC Vent Tidal Volume: 500 Sputum Amount: Small PEEP: 5.0 PIP: 20 Tube Feeding Amount: 40 I&O: Intake and Output 11/20/16 11/21/16 19:00 07:00 Intake Total 1427.5 ml 1050.5 ml Output Total 480 ml 2550 ml Balance 947.5 ml -1499.5 ml Intake Free Water 100 ml IV Total 847.5 ml 480.5 ml Tube Feeding 480 ml 480 ml Other 90 ml Output Urine Total 480 ml 2550 ml # Bowel Movements 1 CXR: no change ET-Tube: 8.0 ET Position: 24 Labs: Laboratory Tests Test 11/21/16 04:00 White Blood Count 9.1 K/UL (4.8-10.8) Red Blood Count 3.86 M/UL (4.70-6.10) L Hemoglobin 9.5 G/DL (14.2-18.0) L Hematocrit 31.5 % (42.0-52.0) L Mean Corpuscular Volume 81 FL (80-99) Mean Corpuscular Hemoglobin 24.6 PG (27.0-31.0) L Mean Corpuscular Hemoglobin Concent 30.2 G/DL (32.0-36.0) L Red Cell Distribution Width 17.2 % (11.6-14.8) H Platelet Count 239 K/UL (150-450) Mean Platelet Volume 7.5 FL (6.5-10.1) Neutrophils (%) (Auto) 56.1 % (45.0-75.0) Lymphocytes (%) (Auto) 27.9 % (20.0-45.0) Monocytes (%) (Auto) 10.0 % (1.0-10.0) Eosinophils (%) (Auto) 5.2 % (0.0-3.0) H Basophils (%) (Auto) 0.6 % (0.0-2.0) Sodium Level 139 mEQ/L (135-145) Potassium Level 3.5 mEQ/L (3.4-4.9) Chloride Level 101 mEQ/L (98-107) Carbon Dioxide Level 29 mEQ/L (20-30) Anion Gap 9 (5-15) Blood Urea Nitrogen 23 mg/dL (7-23) Creatinine 1.4 mg/dL (0.7-1.2) H Estimat Glomerular Filtration Rate mL/min (>60) Glucose Level 116 mg/dL (74-106) H Calcium Level 8.8 mg/dL (8.6-10.2) Total Bilirubin 0.4 mg/dL (0.0-1.2) Aspartate Amino Transf (AST/SGOT) 20 U/L (5-40) Alanine Aminotransferase (ALT/SGPT) 21 U/L (3-41) Alkaline Phosphatase 84 U/L (40-129) Pro-B-Type Natriuretic Peptide 4197 pg/mL (0-450) H Total Protein 7.0 g/dL (6.6-8.7) Albumin 2.5 g/dL (3.5-5.2) L Globulin 4.5 g/dL Albumin/Globulin Ratio 0.5 (1.0-2.7) L MARY CABELLO Nov 21, 2016 11:36
--- NOTE | 2016-11-21 11:39 | Diagnostic Imaging Report ---
Indication: Dyspnea Comparison: 11/20/16 A single view chest radiograph was obtained. Findings: Endotracheal tube and PICC line are in good position. Sternotomy is noted. Heart size is stable. Suspected right perihilar/upper lobe infiltrate. Impression: PICC line in good position. No change otherwise compared to the prior day
--- NOTE | 2016-11-21 12:25 | GI Progress Note ---
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 Taveras. Assessment/Plan - GT site care daily/prn - GTFs per dietary - OB stool r/o GI bleed uncollected - monitor H&H, transfuse prn - Prevacid GT - abx - fu labs Subjective Subjective limited Objective Last 24 Hour Vital Signs Date Time Temp Pulse Resp B/P Pulse Ox O2 Delivery O2 Flow Rate FiO2 11/21/16 11:33 40 11/21/16 11:23 147/67 11/21/16 11:00 65 21 147/67 96 Mechanical Ventilator 40 11/21/16 10:58 65 22 40 11/21/16 10:00 65 21 145/65 97 Mechanical Ventilator 40 11/21/16 09:21 64 22 40 11/21/16 09:00 64 21 147/79 97 Mechanical Ventilator 40 11/21/16 08:48 65 165/84 11/21/16 08:00 98.5 67 20 165/84 100 Mechanical Ventilator 40 11/21/16 08:00 40 11/21/16 08:00 65 11/21/16 07:22 66 21 40 11/21/16 07:00 70 20 139/77 100 Mechanical Ventilator 40 11/21/16 06:00 75 20 142/74 100 Mechanical Ventilator 40 11/21/16 05:31 139/59 11/21/16 05:20 69 24 40 11/21/16 05:00 67 22 139/59 100 Mechanical Ventilator 40 11/21/16 04:00 98.3 67 20 128/78 100 Mechanical Ventilator 40 11/21/16 04:00 40 11/21/16 04:00 71 11/21/16 03:13 68 21 40 11/21/16 03:00 72 27 146/76 100 Mechanical Ventilator 40 11/21/16 02:00 79 22 133/62 99 Mechanical Ventilator 40 11/21/16 01:30 71 23 40 11/21/16 01:00 71 20 160/84 100 Mechanical Ventilator 40 11/21/16 00:10 138/66 11/21/16 00:00 40 11/21/16 00:00 98.2 69 20 135/79 100 Mechanical Ventilator 40 11/21/16 00:00 67 11/20/16 23:20 70 18 40 11/20/16 23:00 66 24 138/66 100 Mechanical Ventilator 40 11/20/16 22:00 72 25 172/80 100 Mechanical Ventilator 40 11/20/16 21:30 68 22 40 11/20/16 21:00 75 25 151/85 100 Mechanical Ventilator 40 11/20/16 20:00 76 11/20/16 20:00 40 11/20/16 20:00 98.3 67 23 135/72 100 Mechanical Ventilator 40 11/20/16 19:30 77 18 40 11/20/16 19:00 72 23 130/75 100 Mechanical Ventilator 40 11/20/16 18:00 65 23 149/76 100 Mechanical Ventilator 40 11/20/16 17:43 149/75 11/20/16 17:03 66 23 146/76 100 Mechanical Ventilator 40 11/20/16 16:35 66 28 40 11/20/16 16:00 65 11/20/16 16:00 98.2 65 23 147/76 100 Mechanical Ventilator 40 11/20/16 16:00 40 11/20/16 15:00 68 23 142/75 100 Mechanical Ventilator 40 11/20/16 14:46 71 24 40 11/20/16 14:00 71 23 144/81 100 Mechanical Ventilator 40 11/20/16 13:02 69 22 40 11/20/16 13:00 70 22 132/66 100 Mechanical Ventilator 40 Intake and Output 11/20/16 11/21/16 19:00 07:00 Intake Total 1427.5 ml 1050.5 ml Output Total 480 ml 2550 ml Balance 947.5 ml -1499.5 ml Intake Free Water 100 ml IV Total 847.5 ml 480.5 ml Tube Feeding 480 ml 480 ml Other 90 ml Output Urine Total 480 ml 2550 ml # Bowel Movements 1 Laboratory Tests Test 11/21/16 04:00 White Blood Count 9.1 K/UL (4.8-10.8) Red Blood Count 3.86 M/UL (4.70-6.10) L Hemoglobin 9.5 G/DL (14.2-18.0) L Hematocrit 31.5 % (42.0-52.0) L Mean Corpuscular Volume 81 FL (80-99) Mean Corpuscular Hemoglobin 24.6 PG (27.0-31.0) L Mean Corpuscular Hemoglobin Concent 30.2 G/DL (32.0-36.0) L Red Cell Distribution Width 17.2 % (11.6-14.8) H Platelet Count 239 K/UL (150-450) Mean Platelet Volume 7.5 FL (6.5-10.1) Neutrophils (%) (Auto) 56.1 % (45.0-75.0) Lymphocytes (%) (Auto) 27.9 % (20.0-45.0) Monocytes (%) (Auto) 10.0 % (1.0-10.0) Eosinophils (%) (Auto) 5.2 % (0.0-3.0) H Basophils (%) (Auto) 0.6 % (0.0-2.0) Sodium Level 139 mEQ/L (135-145) Potassium Level 3.5 mEQ/L (3.4-4.9) Chloride Level 101 mEQ/L (98-107) Carbon Dioxide Level 29 mEQ/L (20-30) Anion Gap 9 (5-15) Blood Urea Nitrogen 23 mg/dL (7-23) Creatinine 1.4 mg/dL (0.7-1.2) H Estimat Glomerular Filtration Rate mL/min (>60) Glucose Level 116 mg/dL (74-106) H Calcium Level 8.8 mg/dL (8.6-10.2) Total Bilirubin 0.4 mg/dL (0.0-1.2) Aspartate Amino Transf (AST/SGOT) 20 U/L (5-40) Alanine Aminotransferase (ALT/SGPT) 21 U/L (3-41) Alkaline Phosphatase 84 U/L (40-129) Pro-B-Type Natriuretic Peptide 4197 pg/mL (0-450) H Total Protein 7.0 g/dL (6.6-8.7) Albumin 2.5 g/dL (3.5-5.2) L Globulin 4.5 g/dL Albumin/Globulin Ratio 0.5 (1.0-2.7) L Height (Feet): 6 Height (Inches): 1.00 Weight (Pounds): 178 General Appearance: no apparent distress Cardiovascular: normal rate Respiratory/Chest: normal breath sounds, no respiratory distress, other - mech vent Abdominal Exam: GT site - c/d/i Delfina Francois N.P. Nov 21, 2016 12:25
--- NOTE | 2016-11-21 14:11 | Wound Care Consultation ---
Wound Assessment Wound Assessment #1: Wound Number: #1 Wound Present on Admission: Yes New Wound: No Status Change of Wound: No Wound Location Body Site Modif: mid Wound Location Body Site: sacral Wound Type: pressure ulcer [place] Test: Does not [place] Pressure Ulcer Stage: III Wound Thickness: Full Thickness Wound Length: 3.5 Wound Width: 3.0 Wound Depth: 0.3 Percent of Wound [place]/Red: 90 Percent of Wound Bed Yellow/Wh: 10 Wound Drainage Description: Serosanguineous Wound Drainage Amount: Moderate Wound Drainage Odor: None/Absent Tissue Surrounding Wound: Macerated Wound General Appearance: Reddened, Draining Wound Assessment #2: Wound Number: #2 Wound Present on Admission: Yes New Wound: No Status Change of Wound: No Wound Location Body Site Modif: left, posterior Wound Location Body Site: knee - POPLITEAL Wound Type: lesion-etiology unknown - with dry yellow scab intact. [place] Test: Does not [place] Wound Thickness: Full Thickness Wound Length: 1.5 Wound Width: 1.0 Wound Depth: utd Percent of Wound Bed Yellow/Wh: 100 - dry scab Wound Drainage Amount: None Wound Drainage Odor: None/Absent Tissue Surrounding Wound: Intact Wound General Appearance: Open to air, Clean/Dry Wound Assessment #3: Wound Number: #3 Wound Present on Admission: Yes New Wound: No Status Change of Wound: No Wound Location Body Site: other - tip of penile area. Wound Type: pressure ulcer - mucosal [place] Test: Does not [place] Wound Thickness: Full Thickness - scattered around penile tip. Wound Length: 6.5 - scattered Wound Width: 2.0 - scattered Wound Drainage Description: Serosanguineous Wound Drainage Amount: Scant Wound Drainage Odor: None/Absent Tissue Surrounding Wound: Erythemic Wound General Appearance: Reddened, Draining Wound Comment #1 Sacral pressure ulcer stage III- noted good progress decrease in size, no further deterioration present, current treatment effective. #2 left posterior popliteal dry yellow scab- site noted intact dry , decrease in size. #3 Tip of penile mucosal pressure ulcer due to f/c. #4 Full thickness scar tissue on right dorsal foot, left and right lateral malleolus intact. #5 dryness to BLE's. Recommendation -Sacral stage III pressure ulcer Cleanse with saline, pat dry, apply Triad cream, cover with bordered gauze daily and PRN soiled/dislodged -Penile mucosal pressure Cleanse with saline, pat dry, apply Triad cream leave area open to air. -Keep clean and dry -Turn and reposition -Optimize nutrition -Heel protector on both heels -A&D ointment on both lower legs -Offload both heels -Low air loss mattress -Assess and f/u with MD for any further changes of condition to skin noted. upon reassessment no further deterioration present to admitted wound sites. RANDALL VALDEZ Nov 21, 2016 14:11
--- NOTE | 2016-11-21 14:29 | General Progress Note ---
Assessment/Plan Problem List: (1) Sepsis ICD Codes: A41.9 - Sepsis, unspecified organism SNOMED: 28938061 (2) Septic shock ICD Codes: A41.9 - Sepsis, unspecified organism; R65.21 - Severe sepsis with septic shock SNOMED: 49244746 (3) Renal failure ICD Codes: N19 - Unspecified kidney failure SNOMED: 38923546 Qualifiers: Qualified Codes: N17.9 - Acute kidney failure, unspecified (4) Respiratory distress ICD Codes: R06.00 - Dyspnea, unspecified SNOMED: 980706058 (5) Pneumonia ICD Codes: J18.9 - Pneumonia, unspecified organism SNOMED: 126516468 (6) UTI (urinary tract infection) ICD Codes: N39.0 - Urinary tract infection, site not specified SNOMED: 73327467 Status: stable, progressing, tolerating diet Assessment/Plan vent abx cbc bmp am, wean vent if possible, ltach transfer Subjective Constitutional: Reports: weakness Allergies: Coded Allergies: No Known Allergies (Verified , 01/02/09) All Systems: reviewed and negative except above Subjective intubated sedated in icu Objective Last 24 Hour Vital Signs Date Time Temp Pulse Resp B/P Pulse Ox O2 Delivery O2 Flow Rate FiO2 11/21/16 14:00 75 20 148/81 100 Mechanical Ventilator 40 11/21/16 13:26 65 22 40 11/21/16 13:00 70 22 155/80 96 Mechanical Ventilator 40 11/21/16 12:00 64 11/21/16 12:00 98.4 74 21 127/74 98 Mechanical Ventilator 40 11/21/16 11:33 40 11/21/16 11:23 147/67 11/21/16 11:00 65 21 147/67 96 Mechanical Ventilator 40 11/21/16 10:58 65 22 40 11/21/16 10:00 65 21 145/65 97 Mechanical Ventilator 40 11/21/16 09:21 64 22 40 11/21/16 09:00 64 21 147/79 97 Mechanical Ventilator 40 11/21/16 08:48 65 165/84 11/21/16 08:00 98.5 67 20 165/84 100 Mechanical Ventilator 40 11/21/16 08:00 40 11/21/16 08:00 65 11/21/16 07:22 66 21 40 11/21/16 07:00 70 20 139/77 100 Mechanical Ventilator 40 76/ 06:00 75 20 142/74 100 Mechanical Ventilator 40 76 05:31 139/59 7/6/ 05:20 69 24 40 7/6/ 05:00 67 22 139/59 100 Mechanical Ventilator 40 11/21/16 04:00 98.3 67 20 128/78 100 Mechanical Ventilator 40 11/21/16 04:00 40 11/21/16 04:00 71 11/21/16 03:13 68 21 40 7 03:00 72 27 146/76 100 Mechanical Ventilator 40 11/21/16 02:00 79 22 133/62 99 Mechanical Ventilator 40 11/21/16 01:30 71 23 40 11/21/16 01:00 71 20 160/84 100 Mechanical Ventilator 40 11/21/16 00:10 138/66 11/21/16 00:00 40 11/21/16 00:00 98.2 69 20 135/79 100 Mechanical Ventilator 40 11/21/16 00:00 67 11/20/16 23:20 70 18 40 11/20/16 23:00 66 24 138/66 100 Mechanical Ventilator 40 11/20/16 22:00 72 25 172/80 100 Mechanical Ventilator 40 11/20/16 21:30 68 22 40 11/20/16 21:00 75 25 151/85 100 Mechanical Ventilator 40 11/20/16 20:00 76 11/20/16 20:00 40 11/20/16 20:00 98.3 67 23 135/72 100 Mechanical Ventilator 40 11/20/16 19:30 77 18 40 7 19:00 72 23 130/75 100 Mechanical Ventilator 40 7/17 18:00 65 23 149/76 100 Mechanical Ventilator 40 7 17:43 149/75 7/17 17:03 66 23 146/76 100 Mechanical Ventilator 40 11/20/16 16:35 66 28 40 7/17 16:00 65 11/20/17 16:00 98.2 65 23 147/76 100 Mechanical Ventilator 40 11/20/16 16:00 40 17 15:00 68 23 142/75 100 Mechanical Ventilator 40 11/20/16 14:46 71 24 40 Intake and Output 11/2011/21/16 19:00 07:00 Intake Total 1427.5 ml 1050.5 ml Output Total 480 ml 2550 ml Balance 947.5 ml -1499.5 ml Intake Free Water 100 ml IV Total 847.5 ml 480.5 ml Tube Feeding 480 ml 480 ml Other 90 ml Output Urine Total 480 ml 2550 ml # Bowel Movements 1 Laboratory Tests 11/21/16 04:00: White Blood Count 9.1, Red Blood Count 3.86L, Hemoglobin 9.5L, Hematocrit 31.5L , Mean Corpuscular Volume 81, Mean Corpuscular Hemoglobin 24.6L, Mean Corpuscular Hemoglobin Concent 30.2L, Red Cell Distribution Width 17.2H, Platelet Count 239, Mean Platelet Volume 7.5, Neutrophils (%) (Auto) 56.1, Lymphocytes (%) (Auto) 27.9, Monocytes (%) (Auto) 10.0, Eosinophils (%) (Auto) 5.2H, Basophils (%) (Auto) 0.6, Sodium Level 139, Potassium Level 3.5, Chloride Level 101, Carbon Dioxide Level 29, Anion Gap 9, Blood Urea Nitrogen 23, Creatinine 1.4H, Estimat Glomerular Filtration Rate , Glucose Level 116H, Calcium Level 8.8, Total Bilirubin 0.4, Aspartate Amino Transf (AST/SGOT) 20, Alanine Aminotransferase (ALT/SGPT) 21, Alkaline Phosphatase 84, Pro-B-Type Natriuretic Peptide 4197H, Total Protein 7.0, Albumin 2.5L, Globulin 4.5, Albumin/Globulin Ratio 0.5L Height (Feet): 6 Height (Inches): 1.00 Weight (Pounds): 178 General Appearance: lethargic EENT: normal ENT inspection Neck: normal alignment Cardiovascular: normal peripheral pulses, normal rate, regular rhythm Respiratory/Chest: chest wall non-tender, lungs clear, normal breath sounds Abdomen: normal bowel sounds, non tender, soft Extremities: normal inspection Edema: no edema noted Arm (L), no edema noted Arm (R), no edema noted Leg (L), no edema noted Leg (R), no edema noted Pedal (L), no edema noted Pedal (R), no edema noted Generalized Neurologic: motor weakness Skin: normal pigmentation, warm/dry CASS YANES Nov 21, 2016 14:29
[2016-11-21] MEDS ORDERED: NS 275ml ONE (17:22)
[2016-11-21] MEDS ORDERED: Tubing IV Secondary IV ONE (17:22)
--- NOTE | 2016-11-21 18:07 | Infectious Diseases Prog Note ---
Assessment/Plan Problems: (1) HCAP (healthcare-associated pneumonia) Assessment & Plan: present on admission, with staph aureus , on doxycycline to finish his course of treatment for 14 days total, EOT 11/28/16 (2) Septic shock Assessment & Plan: with proteus mirabilis ESBL + , suspect source is UTI , complicated with respiratory failure, on zosyn , repeated blood culture to confirm clearance is pending , will treat with zosyn for 14 days (3) Respiratory distress Assessment & Plan: due to the above, S/P intubation, continue mechanical ventilation, monitor ABG, titrate oxygen as needed (4) UTI (urinary tract infection) Assessment & Plan: with proteus mirabilis and Providencia stuartii , most likely the source of his sepsis, on zosyn for 14 days (5) Renal failure Assessment & Plan: improving, continue hydration, avoid nephrotoxic meds (6) Hydronephrosis of left kidney Assessment & Plan: with hematuria, most likely due to urethral tear , had urology eval , and no intervention needed for now Subjective ROS Limited/Unobtainable: Yes Allergies: Coded Allergies: No Known Allergies (Verified , 01/02/09) Subjective he is still intubated on mechanical ventilation, make facial grimaces , not in distress, off pressors, afebrile Objective Vital Signs Last 24 Hour Vital Signs Date Time Temp Pulse Resp B/P Pulse Ox O2 Delivery O2 Flow Rate FiO2 11/21/16 17:28 162/86 11/21/16 17:00 67 20 164/92 100 Mechanical Ventilator 40 11/21/16 16:47 67 28 40 11/21/16 16:00 80 11/21/16 16:00 98.4 72 24 162/76 100 Mechanical Ventilator 40 11/21/16 16:00 40 11/21/16 15:29 68 26 40 11/21/16 15:00 68 20 101/84 100 Mechanical Ventilator 40 11/21/16 14:00 75 20 148/81 100 Mechanical Ventilator 40 11/21/16 13:26 65 22 40 11/21/16 13:00 70 22 155/80 96 Mechanical Ventilator 40 11/21/16 12:00 64 11/21/16 12:00 98.4 74 21 127/74 98 Mechanical Ventilator 40 11/21/16 11:33 40 11/21/16 11:23 147/67 7/6/ 11:00 65 21 147/67 96 Mechanical Ventilator 40 7/6/17 10:58 65 22 40 7/6/17 10:00 65 21 145/65 97 Mechanical Ventilator 40 7/6/17 09:21 64 22 40 7/6/17 09:00 64 21 147/79 97 Mechanical Ventilator 40 76/17 08:48 65 165/84 7/6/ 08:00 98.5 67 20 165/84 100 Mechanical Ventilator 40 76/ 08:00 40 7/6/ 08:00 65 7/6/ 07:22 66 21 40 7/6/ 07:00 70 20 139/77 100 Mechanical Ventilator 40 7 06:00 75 20 142/74 100 Mechanical Ventilator 40 11/21/16 05:31 139/59 7/6/ 05:20 69 24 40 7/6/ 05:00 67 22 139/59 100 Mechanical Ventilator 40 11/21/16 04:00 98.3 67 20 128/78 100 Mechanical Ventilator 40 11/21/16 04:00 40 76/ 04:00 71 76/ 03:13 68 21 40 7/6/ 03:00 72 27 146/76 100 Mechanical Ventilator 40 76 02:00 79 22 133/62 99 Mechanical Ventilator 40 76/ 01:30 71 23 40 7/6/17 01:00 71 20 160/84 100 Mechanical Ventilator 40 76 00:10 138/66 7/6/17 00:00 40 6/ 00:00 98.2 69 20 135/79 100 Mechanical Ventilator 40 76/ 00:00 67 7/10/02 23:20 70 18 40 7//17 23:00 66 24 138/66 100 Mechanical Ventilator 40 7/17 22:00 72 25 172/80 100 Mechanical Ventilator 40 7/17 21:30 68 22 40 7/17 21:00 75 25 151/85 100 Mechanical Ventilator 40 7/5/17 20:00 76 7// 20:00 40 75/17 20:00 98.3 67 23 135/72 100 Mechanical Ventilator 40 7/17 19:30 77 18 40 7 19:00 72 23 130/75 100 Mechanical Ventilator 40 Height (Feet): 6 Height (Inches): 1.00 Weight (Pounds): 178 General Appearance: WD/WN, no acute distress HEENT: normocephalic, atraumatic, anicteric, mucous membranes moist, PERRL Respiratory/Chest: chest wall non-tender, lungs clear, normal breath sounds, no respiratory distress, no accessory muscle use, respiratory distress Cardiovascular: normal peripheral pulses, normal rate, regular rhythm, no gallop/murmur, no JVD Abdomen: normal bowel sounds, soft, non tender, no organomegaly, non distended , no mass, no scars Skin: no rash, no lesions, ulcers Lymphatic: no neck adenopathy Laboratory Tests Test 11/21/16 04:00 White Blood Count 9.1 K/UL (4.8-10.8) Red Blood Count 3.86 M/UL (4.70-6.10) L Hemoglobin 9.5 G/DL (14.2-18.0) L Hematocrit 31.5 % (42.0-52.0) L Mean Corpuscular Volume 81 FL (80-99) Mean Corpuscular Hemoglobin 24.6 PG (27.0-31.0) L Mean Corpuscular Hemoglobin Concent 30.2 G/DL (32.0-36.0) L Red Cell Distribution Width 17.2 % (11.6-14.8) H Platelet Count 239 K/UL (150-450) Mean Platelet Volume 7.5 FL (6.5-10.1) Neutrophils (%) (Auto) 56.1 % (45.0-75.0) Lymphocytes (%) (Auto) 27.9 % (20.0-45.0) Monocytes (%) (Auto) 10.0 % (1.0-10.0) Eosinophils (%) (Auto) 5.2 % (0.0-3.0) H Basophils (%) (Auto) 0.6 % (0.0-2.0) Sodium Level 139 mEQ/L (135-145) Potassium Level 3.5 mEQ/L (3.4-4.9) Chloride Level 101 mEQ/L (98-107) Carbon Dioxide Level 29 mEQ/L (20-30) Anion Gap 9 (5-15) Blood Urea Nitrogen 23 mg/dL (7-23) Creatinine 1.4 mg/dL (0.7-1.2) H Estimat Glomerular Filtration Rate mL/min (>60) Glucose Level 116 mg/dL (74-106) H Calcium Level 8.8 mg/dL (8.6-10.2) Total Bilirubin 0.4 mg/dL (0.0-1.2) Aspartate Amino Transf (AST/SGOT) 20 U/L (5-40) Alanine Aminotransferase (ALT/SGPT) 21 U/L (3-41) Alkaline Phosphatase 84 U/L (40-129) Pro-B-Type Natriuretic Peptide 4197 pg/mL (0-450) H Total Protein 7.0 g/dL (6.6-8.7) Albumin 2.5 g/dL (3.5-5.2) L Globulin 4.5 g/dL Albumin/Globulin Ratio 0.5 (1.0-2.7) L Current Medications Medications (Trade) Dose Ordered Sig/Keira Route PRN Reason Start Time Stop Time Status Last Admin Dose Admin Acetaminophen (Tylenol) 650 mg Q4H PRN ORAL fever 11/14/16 18:00 12/14/16 17:59 11/17/16 21:35 Albuterol/ Ipratropium (DuoNeb 0.5-3(2.5)mg/3ml) 3 ml EVERY 4 HOURS PRN HHN Shortness of Breath 11/17/16 09:30 11/22/16 23:59 Amlodipine Besylate (Norvasc) 10 mg DAILY GT 11/18/16 11:00 12/18/16 10:59 11/21/16 08:48 Chlorhexidine Gluconate (Michelle-Hex 2%) 1 applic QHS TOPIC 11/15/16 21:00 12/15/16 20:59 11/20/16 20:58 Doxycycline Hyclate/Dextrose (Vibramycin/D5W) 110 ml @ 110 mls/hr Q12HR@0600,1800 IV 11/20/16 18:00 11/28/16 18:01 11/21/16 17:28 Heparin Sodium (Porcine) (Heparin 5000 units/ml) 5,000 units EVERY 12 HOURS SUBQ 11/15/16 21:00 12/15/16 20:59 11/21/16 08:48 Hydralazine HCl (Apresoline) 10 mg Q4H PRN IV SBP > 150 11/18/16 12:15 12/18/16 12:14 11/19/16 02:15 Hydralazine HCl 25 mg 25 mg Q6HR GT 11/20/16 10:28 12/19/16 05:59 11/21/16 17:28 Hydromorphone HCl (Dilaudid) 0.5 mg Q4H PRN IVP Severe Pain (Pain Scale 7-10) 11/21/16 10:30 11/28/16 10:29 Lansoprazole (Prevacid) 30 mg DAILY GT 11/19/16 09:00 12/19/16 08:59 11/21/16 08:47 Ondansetron HCl (Zofran) 4 mg Q6H PRN IVP Nausea & Vomiting 11/14/16 20:00 12/14/16 19:59 Piperacillin Sod/ Tazobactam Sod/ Dextrose (Zosyn/D5W) 110 ml @ 27.5 mls/hr Q8H IVPB 11/17/16 12:00 12/04/16 23:00 11/21/16 11:23 Polyethylene Glycol 17 gm 17 gm DAILYPRN PRN GT Constipation 11/17/16 10:41 12/15/16 13:59 11/21/16 03:06 Vitamin A/Vitamin D (A & D Oint) 1 applic EVERY 12 HOURS TOPIC 11/15/16 21:00 12/15/16 20:59 11/21/16 08:49 Julianna Trejo M.D. Nov 21, 2016 18:07
[2016-11-21] MEDS: Dyna-Hex 2% Top Sol 8oz TOPIC SCH (21:10)
[2016-11-22] VITALS (24 sets, daily range): BP systolic 107–164; BP diastolic 65–93
[2016-11-22] MEDS: Piperacillin/Tazobactam 3.375 GM in D5W 110 ML IVPB SCH ×3 (04:30→20:00)
[2016-11-22] MEDS: HydrALAZINE 25mg tab GT SCH ×3 (05:35→17:35)
[2016-11-22] MEDS: Doxycycline Hyclate 100 MG in D5W 110 ML IV SCH ×2 (05:35→17:35)
[2016-11-22 06:10] LABS: BASOPHILS % (AUTO) 0.4 % (0.0-2.0); EOSINOPHILS % (AUTO) 4.7 % (0.0-3.0); LYMPHOCYTES % (AUTO) 24.8 % (20.0-45.0); MEAN CORPUSCULAR HEMOGLOBIN 24.6 PG (27.0-31.0); MEAN CORPUSCULAR VOLUME 82 FL (80-99); MEAN PLATELET VOLUME 7.3 FL (6.5-10.1); MONOCYTES % (AUTO) 8.3 % (1.0-10.0); NEUTROPHILS % (AUTO) 61.9 % (45.0-75.0); PLATELET COUNT 272 K/UL (150-450); RED CELL DISTRIBUTION WIDTH 17.4 % (11.6-14.8); WHITE BLOOD COUNT 9.3 K/UL (4.8-10.8)
[2016-11-22 07:03] LABS: ALANINE AMINOTRANSFERASE 20 U/L (3-41); ALBUMIN/GLOBULIN RATIO 0.5 (1.0-2.7); ANION GAP 9 (5-15); ASPARTATE AMINO TRANSFERASE 20 U/L (5-40); CALCIUM 8.6 mg/dL (8.6-10.2); CARBON DIOXIDE 31 mEQ/L (20-30); CHLORIDE 100 mEQ/L (98-107); CREATININE 1.2 mg/dL (0.7-1.2); HEMOLYSIS 2; MAGNESIUM 1.8 mg/dL (1.7-2.5); PHOSPHORUS 2.7 mg/dL (2.5-4.8); POTASSIUM 3.1 mEQ/L (3.4-4.9); SODIUM 140 mEQ/L (135-145); TOTAL PROTEIN 7.1 g/dL (6.6-8.7)
[2016-11-22] MEDS: Heparin 5000 units/ml inj SUBQ SCH ×2 (09:00→20:48)
[2016-11-22] MEDS: Vitamin A&D Oint 2oz Tube TOPIC SCH ×2 (09:00→20:47)
--- NOTE | 2016-11-22 10:19 | Diagnostic Imaging Report ---
Indication: Dyspnea Comparison: 11/21/16 A single view chest radiograph was obtained. Findings: Tubes and lines are stable. Central interstitial prominence demonstrated particularly on the right side. Infiltrate is not excluded. Heart size is stable. Impression: No significant change manager the last day
--- NOTE | 2016-11-22 10:45 | General Progress Note ---
Assessment/Plan Assessment/Plan (1) Respiratory distress (2) Incubated on Ventilator (3) Septic Shock (4) Sacral decubitus ulcer Pt will be continued on Dilaudid. D/w Dr. Rodríguez and he concurred. Subjective Date patient seen: Nov 22, 2016 Time patient seen: 08:30 - am ROS Limited/Unobtainable: Yes Allergies: Coded Allergies: No Known Allergies (Verified , 01/02/09) Subjective Patient laying in bed no signs of pain or distress and is still intubated on ventilator. Objective Last 24 Hour Vital Signs Date Time Temp Pulse Resp B/P Pulse Ox O2 Delivery O2 Flow Rate FiO2 11/22/16 10:00 65 20 138/76 100 Mechanical Ventilator 40 11/22/16 09:02 65 19 40 11/22/16 09:00 67 21 162/77 100 Mechanical Ventilator 40 11/22/16 08:58 64 139/83 11/22/16 08:00 66 11/22/16 08:00 40 11/22/16 08:00 97.6 66 20 139/83 100 Mechanical Ventilator 40 11/22/16 07:00 66 22 131/76 100 Mechanical Ventilator 40 11/22/16 06:47 74 20 40 11/22/16 06:00 71 23 135/78 100 Mechanical Ventilator 40 11/22/16 05:35 149/79 11/22/16 05:19 67 18 40 11/22/16 05:00 79 24 149/79 100 Mechanical Ventilator 40 11/22/16 04:00 67 11/22/16 04:00 40 11/22/16 04:00 98.6 66 19 150/75 98 Mechanical Ventilator 40 11/22/16 03:00 62 16 155/83 100 Mechanical Ventilator 40 11/22/16 02:57 65 18 40 11/22/16 02:00 66 18 152/78 100 Mechanical Ventilator 40 11/22/16 01:47 67 29 40 11/22/16 01:00 70 19 150/84 99 Mechanical Ventilator 40 11/22/16 00:16 66 11/22/16 00:00 99.2 65 16 159/81 100 Mechanical Ventilator 40 11/22/16 00:00 40 11/21/16 23:47 153/86 11/21/16 23:00 67 22 153/86 100 Mechanical Ventilator 40 11/21/16 22:33 73 29 40 11/21/16 22:00 70 19 110/93 100 Mechanical Ventilator 40 11/21/16 21:27 68 25 40 11/21/16 21:00 72 20 156/80 100 Mechanical Ventilator 40 11/21/16 20:00 98.3 68 24 142/83 100 Mechanical Ventilator 40 11/21/16 20:00 40 11/21/16 20:00 69 11/21/16 19:16 73 26 40 11/21/16 19:00 69 20 133/74 100 Mechanical Ventilator 40 11/21/16 18:00 77 20 162/88 100 Mechanical Ventilator 40 11/21/16 17:28 162/86 11/21/16 17:00 67 20 164/92 100 Mechanical Ventilator 40 11/21/16 16:47 67 28 40 11/21/16 16:00 80 11/21/16 16:00 98.4 72 24 162/76 100 Mechanical Ventilator 40 11/21/16 16:00 40 11/21/16 15:29 68 26 40 11/21/16 15:00 68 20 101/84 100 Mechanical Ventilator 40 11/21/16 14:00 75 20 148/81 100 Mechanical Ventilator 40 11/21/16 13:26 65 22 40 11/21/16 13:00 70 22 155/80 96 Mechanical Ventilator 40 11/21/16 12:00 64 11/21/16 12:00 98.4 74 21 127/74 98 Mechanical Ventilator 40 11/21/16 11:33 40 11/21/16 11:23 147/67 11/21/16 11:00 65 21 147/67 96 Mechanical Ventilator 40 11/21/16 10:58 65 22 40 Intake and Output 11/21/16 11/22/16 19:00 07:00 Intake Total 592.5 ml 855.0 ml Output Total 1570 ml 820 ml Balance -977.5 ml 35.0 ml IV Total 82.5 ml 275.0 ml Tube Feeding 480 ml 480 ml Other 30 ml 100 ml Output Urine Total 1570 ml 820 ml Laboratory Tests 11/22/16 04:00: White Blood Count 9.3, Red Blood Count 3.90L, Hemoglobin 9.6L, Hematocrit 31.9L , Mean Corpuscular Volume 82, Mean Corpuscular Hemoglobin 24.6L, Mean Corpuscular Hemoglobin Concent 30.0L, Red Cell Distribution Width 17.4H, Platelet Count 272, Mean Platelet Volume 7.3, Neutrophils (%) (Auto) 61.9, Lymphocytes (%) (Auto) 24.8, Monocytes (%) (Auto) 8.3, Eosinophils (%) (Auto) 4.7H, Basophils (%) (Auto) 0.4, Sodium Level 140, Potassium Level 3.1L, Chloride Level 100, Carbon Dioxide Level 31H, Anion Gap 9, Blood Urea Nitrogen 21, Creatinine 1.2, Estimat Glomerular Filtration Rate , Glucose Level 145H, Calcium Level 8.6, Phosphorus Level 2.7, Magnesium Level 1.8, Total Bilirubin 0.4, Aspartate Amino Transf (AST/SGOT) 20, Alanine Aminotransferase (ALT/SGPT) 20, Alkaline Phosphatase 84, Total Protein 7.1, Albumin 2.5L, Globulin 4.6, Albumin/Globulin Ratio 0.5L Height (Feet): 6 Height (Inches): 1.00 Weight (Pounds): 173 Objective General Appearance: other - Intubated and unresponsive EENT: other - ETT in place Cardiovascular: normal rate, regular rhythm Respiratory/Chest: chest wall non-tender, rhonchi - bilaterally, other - On vent Abdomen: non tender, soft Edema: no edema noted Arm (L), no edema noted Arm (R), no edema noted Leg (L), no edema noted Leg (R), no edema noted Pedal (L), no edema noted Pedal (R) Neurologic: unresponsive AMMY LEMOS Nov 22, 2016 10:45
--- NOTE | 2016-11-22 11:27 | Pulmonolgy Critical Care Note ---
Critical Care - Asmt/Plan Problems: (1) Septic shock (2) Respiratory distress (3) Acute encephalopathy (4) Renal failure (5) Decubital ulcer Respiratory: monitor respiratory rate, adjust FIO2, CXR Cardiac: continue to monitor HR/BP Renal: F/U I&O, keep IV fluid Infectious Disease: check cultures Gastrointestinal: continue feedings/current rate Endocrine: monitor blood sugar, check TSH Hematologic: transfuse if hgb<8.5 Neurologic: PRN Ativan, PRN Morphine, keep patient comfortable Affect: PRN ativan Prophylaxis: Heparin Notes Reviewed: cardio Discussed with: nurses, consultants, manager case managementmedicine and health service manager - Objective Last 24 Hour Vital Signs Date Time Temp Pulse Resp B/P Pulse Ox O2 Delivery O2 Flow Rate FiO2 11/22/16 11:00 62 19 144/92 100 Mechanical Ventilator 40 11/22/16 11:00 65 20 40 11/22/16 10:00 65 20 138/76 100 Mechanical Ventilator 40 11/22/16 09:02 65 19 40 11/22/16 09:00 67 21 162/77 100 Mechanical Ventilator 40 11/22/16 08:58 64 139/83 11/22/16 08:00 66 11/22/16 08:00 40 11/22/16 08:00 97.6 66 20 139/83 100 Mechanical Ventilator 40 11/22/16 07:00 66 22 131/76 100 Mechanical Ventilator 40 11/22/16 06:47 74 20 40 11/22/16 06:00 71 23 135/78 100 Mechanical Ventilator 40 11/22/16 05:35 149/79 11/22/16 05:19 67 18 40 11/22/16 05:00 79 24 149/79 100 Mechanical Ventilator 40 11/22/16 04:00 67 11/22/16 04:00 40 11/22/16 04:00 98.6 66 19 150/75 98 Mechanical Ventilator 40 11/22/16 03:00 62 16 155/83 100 Mechanical Ventilator 40 11/22/16 02:57 65 18 40 11/22/16 02:00 66 18 152/78 100 Mechanical Ventilator 40 11/22/16 01:47 67 29 40 11/22/16 01:00 70 19 150/84 99 Mechanical Ventilator 40 11/22/16 00:16 66 11/22/16 00:00 99.2 65 16 159/81 100 Mechanical Ventilator 40 11/22/16 00:00 40 11/21/16 23:47 153/86 11/21/16 23:00 67 22 153/86 100 Mechanical Ventilator 40 11/21/16 22:33 73 29 40 11/21/16 22:00 70 19 110/93 100 Mechanical Ventilator 40 11/21/16 21:27 68 25 40 11/21/16 21:00 72 20 156/80 100 Mechanical Ventilator 40 11/21/16 20:00 98.3 68 24 142/83 100 Mechanical Ventilator 40 11/21/16 20:00 40 11/21/16 20:00 69 11/21/16 19:16 73 26 40 11/21/16 19:00 69 20 133/74 100 Mechanical Ventilator 40 11/21/16 18:00 77 20 162/88 100 Mechanical Ventilator 40 11/21/16 17:28 162/86 11/21/16 17:00 67 20 164/92 100 Mechanical Ventilator 40 11/21/16 16:47 67 28 40 11/21/16 16:00 80 11/21/16 16:00 98.4 72 24 162/76 100 Mechanical Ventilator 40 11/21/16 16:00 40 11/21/16 15:29 68 26 40 11/21/16 15:00 68 20 101/84 100 Mechanical Ventilator 40 11/21/16 14:00 75 20 148/81 100 Mechanical Ventilator 40 11/21/16 13:26 65 22 40 11/21/16 13:00 70 22 155/80 96 Mechanical Ventilator 40 11/21/16 12:00 64 11/21/16 12:00 98.4 74 21 127/74 98 Mechanical Ventilator 40 11/21/16 11:33 40 Status: awake, sedated Condition: critical HEENT: atraumatic, normocephalic Lungs: chest wall tender Heart: HR/BP stable, regular Abdomen: soft, non-tender, active bowel sounds Extremities: no C/C/E Critical Care - Subjective ROS Limited/Unobtainable: Yes ICU Day: 8 Intubation Day: 8 Condition: critical EKG Rhythm: Sinus Rhythm FI02: 40 Vent Support Breath Rate: 18 Vent Support Mode: IMV/SIMV Vent Tidal Volume: 500 Sputum Amount: None PEEP: 5.0 PIP: 12 Tube Feeding Amount: 40 I&O: Intake and Output 11/21/16 11/22/16 19:00 07:00 Intake Total 592.5 ml 855.0 ml Output Total 1570 ml 820 ml Balance -977.5 ml 35.0 ml IV Total 82.5 ml 275.0 ml Tube Feeding 480 ml 480 ml Other 30 ml 100 ml Output Urine Total 1570 ml 820 ml CXR: improving ET-Tube: 8.0 ET Position: 24 Labs: Laboratory Tests Test 11/22/16 04:00 White Blood Count 9.3 K/UL (4.8-10.8) Red Blood Count 3.90 M/UL (4.70-6.10) L Hemoglobin 9.6 G/DL (14.2-18.0) L Hematocrit 31.9 % (42.0-52.0) L Mean Corpuscular Volume 82 FL (80-99) Mean Corpuscular Hemoglobin 24.6 PG (27.0-31.0) L Mean Corpuscular Hemoglobin Concent 30.0 G/DL (32.0-36.0) L Red Cell Distribution Width 17.4 % (11.6-14.8) H Platelet Count 272 K/UL (150-450) Mean Platelet Volume 7.3 FL (6.5-10.1) Neutrophils (%) (Auto) 61.9 % (45.0-75.0) Lymphocytes (%) (Auto) 24.8 % (20.0-45.0) Monocytes (%) (Auto) 8.3 % (1.0-10.0) Eosinophils (%) (Auto) 4.7 % (0.0-3.0) H Basophils (%) (Auto) 0.4 % (0.0-2.0) Sodium Level 140 mEQ/L (135-145) Potassium Level 3.1 mEQ/L (3.4-4.9) L Chloride Level 100 mEQ/L (98-107) Carbon Dioxide Level 31 mEQ/L (20-30) H Anion Gap 9 (5-15) Blood Urea Nitrogen 21 mg/dL (7-23) Creatinine 1.2 mg/dL (0.7-1.2) Estimat Glomerular Filtration Rate mL/min (>60) Glucose Level 145 mg/dL (74-106) H Calcium Level 8.6 mg/dL (8.6-10.2) Phosphorus Level 2.7 mg/dL (2.5-4.8) Magnesium Level 1.8 mg/dL (1.7-2.5) Total Bilirubin 0.4 mg/dL (0.0-1.2) Aspartate Amino Transf (AST/SGOT) 20 U/L (5-40) Alanine Aminotransferase (ALT/SGPT) 20 U/L (3-41) Alkaline Phosphatase 84 U/L (40-129) Total Protein 7.1 g/dL (6.6-8.7) Albumin 2.5 g/dL (3.5-5.2) L Globulin 4.6 g/dL Albumin/Globulin Ratio 0.5 (1.0-2.7) L MARY CABELLO Nov 22, 2016 11:27
--- NOTE | 2016-11-22 11:35 | GI Progress Note ---
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 Taveras. Assessment/Plan - GT site care daily/prn - GTFs per dietary - OB stool r/o GI bleed uncollected - monitor H&H, transfuse prn - Prevacid GT - abx - fu labs Subjective Subjective limited Objective Last 24 Hour Vital Signs Date Time Temp Pulse Resp B/P Pulse Ox O2 Delivery O2 Flow Rate FiO2 11/22/16 11:00 62 19 144/92 100 Mechanical Ventilator 40 11/22/16 11:00 65 20 40 11/22/16 10:00 65 20 138/76 100 Mechanical Ventilator 40 11/22/16 09:02 65 19 40 11/22/16 09:00 67 21 162/77 100 Mechanical Ventilator 40 11/22/16 08:58 64 139/83 11/22/16 08:00 66 11/22/16 08:00 40 11/22/16 08:00 97.6 66 20 139/83 100 Mechanical Ventilator 40 11/22/16 07:00 66 22 131/76 100 Mechanical Ventilator 40 11/22/16 06:47 74 20 40 11/22/16 06:00 71 23 135/78 100 Mechanical Ventilator 40 11/22/16 05:35 149/79 11/22/16 05:19 67 18 40 11/22/16 05:00 79 24 149/79 100 Mechanical Ventilator 40 11/22/16 04:00 67 11/22/16 04:00 40 11/22/16 04:00 98.6 66 19 150/75 98 Mechanical Ventilator 40 11/22/16 03:00 62 16 155/83 100 Mechanical Ventilator 40 11/22/16 02:57 65 18 40 11/22/16 02:00 66 18 152/78 100 Mechanical Ventilator 40 11/22/16 01:47 67 29 40 11/22/16 01:00 70 19 150/84 99 Mechanical Ventilator 40 11/22/16 00:16 66 11/22/16 00:00 99.2 65 16 159/81 100 Mechanical Ventilator 40 11/22/16 00:00 40 11/21/16 23:47 153/86 11/21/16 23:00 67 22 153/86 100 Mechanical Ventilator 40 11/21/16 22:33 73 29 40 11/21/16 22:00 70 19 110/93 100 Mechanical Ventilator 40 11/21/16 21:27 68 25 40 11/21/16 21:00 72 20 156/80 100 Mechanical Ventilator 40 11/21/16 20:00 98.3 68 24 142/83 100 Mechanical Ventilator 40 11/21/16 20:00 40 11/21/16 20:00 69 11/21/16 19:16 73 26 40 11/21/16 19:00 69 20 133/74 100 Mechanical Ventilator 40 11/21/16 18:00 77 20 162/88 100 Mechanical Ventilator 40 11/21/16 17:28 162/86 11/21/16 17:00 67 20 164/92 100 Mechanical Ventilator 40 11/21/16 16:47 67 28 40 11/21/16 16:00 80 11/21/16 16:00 98.4 72 24 162/76 100 Mechanical Ventilator 40 11/21/16 16:00 40 11/21/16 15:29 68 26 40 11/21/16 15:00 68 20 101/84 100 Mechanical Ventilator 40 11/21/16 14:00 75 20 148/81 100 Mechanical Ventilator 40 11/21/16 13:26 65 22 40 11/21/16 13:00 70 22 155/80 96 Mechanical Ventilator 40 11/21/16 12:00 64 11/21/16 12:00 98.4 74 21 127/74 98 Mechanical Ventilator 40 Intake and Output 11/21/16 11/22/16 19:00 07:00 Intake Total 592.5 ml 855.0 ml Output Total 1570 ml 820 ml Balance -977.5 ml 35.0 ml IV Total 82.5 ml 275.0 ml Tube Feeding 480 ml 480 ml Other 30 ml 100 ml Output Urine Total 1570 ml 820 ml Laboratory Tests Test 11/22/16 04:00 White Blood Count 9.3 K/UL (4.8-10.8) Red Blood Count 3.90 M/UL (4.70-6.10) L Hemoglobin 9.6 G/DL (14.2-18.0) L Hematocrit 31.9 % (42.0-52.0) L Mean Corpuscular Volume 82 FL (80-99) Mean Corpuscular Hemoglobin 24.6 PG (27.0-31.0) L Mean Corpuscular Hemoglobin Concent 30.0 G/DL (32.0-36.0) L Red Cell Distribution Width 17.4 % (11.6-14.8) H Platelet Count 272 K/UL (150-450) Mean Platelet Volume 7.3 FL (6.5-10.1) Neutrophils (%) (Auto) 61.9 % (45.0-75.0) Lymphocytes (%) (Auto) 24.8 % (20.0-45.0) Monocytes (%) (Auto) 8.3 % (1.0-10.0) Eosinophils (%) (Auto) 4.7 % (0.0-3.0) H Basophils (%) (Auto) 0.4 % (0.0-2.0) Sodium Level 140 mEQ/L (135-145) Potassium Level 3.1 mEQ/L (3.4-4.9) L Chloride Level 100 mEQ/L (98-107) Carbon Dioxide Level 31 mEQ/L (20-30) H Anion Gap 9 (5-15) Blood Urea Nitrogen 21 mg/dL (7-23) Creatinine 1.2 mg/dL (0.7-1.2) Estimat Glomerular Filtration Rate mL/min (>60) Glucose Level 145 mg/dL (74-106) H Calcium Level 8.6 mg/dL (8.6-10.2) Phosphorus Level 2.7 mg/dL (2.5-4.8) Magnesium Level 1.8 mg/dL (1.7-2.5) Total Bilirubin 0.4 mg/dL (0.0-1.2) Aspartate Amino Transf (AST/SGOT) 20 U/L (5-40) Alanine Aminotransferase (ALT/SGPT) 20 U/L (3-41) Alkaline Phosphatase 84 U/L (40-129) Total Protein 7.1 g/dL (6.6-8.7) Albumin 2.5 g/dL (3.5-5.2) L Globulin 4.6 g/dL Albumin/Globulin Ratio 0.5 (1.0-2.7) L Height (Feet): 6 Height (Inches): 1.00 Weight (Pounds): 173 General Appearance: no apparent distress, alert Cardiovascular: regular rhythm Respiratory/Chest: normal breath sounds, no respiratory distress, other - mech vent Abdominal Exam: normal bowel sounds, non tender, soft, GT site - c/d/i Delfina Francois N.P. Nov 22, 2016 11:35
--- NOTE | 2016-11-22 14:09 | General Progress Note ---
Assessment/Plan Problem List: (1) Sepsis ICD Codes: A41.9 - Sepsis, unspecified organism SNOMED: 84816719 (2) Septic shock ICD Codes: A41.9 - Sepsis, unspecified organism; R65.21 - Severe sepsis with septic shock SNOMED: 17775684 (3) Renal failure ICD Codes: N19 - Unspecified kidney failure SNOMED: 14796453 Qualifiers: Qualified Codes: N17.9 - Acute kidney failure, unspecified (4) Respiratory distress ICD Codes: R06.00 - Dyspnea, unspecified SNOMED: 779597977 (5) Pneumonia ICD Codes: J18.9 - Pneumonia, unspecified organism SNOMED: 887918066 (6) UTI (urinary tract infection) ICD Codes: N39.0 - Urinary tract infection, site not specified SNOMED: 19867060 Status: stable, progressing, tolerating diet Assessment/Plan vent abx cbc bmp am, wean vent if possible, ltach transfer Subjective Constitutional: Reports: weakness Allergies: Coded Allergies: No Known Allergies (Verified , 01/02/09) All Systems: reviewed and negative except above Subjective intubated sedated in icu Objective Last 24 Hour Vital Signs Date Time Temp Pulse Resp B/P Pulse Ox O2 Delivery O2 Flow Rate FiO2 11/22/16 13:23 155/70 11/22/16 13:06 69 19 144/92 100 Mechanical Ventilator 40 11/22/16 12:19 167/49 11/22/16 12:05 63 24 40 11/22/16 12:00 98.1 64 20 164/79 100 Mechanical Ventilator 40 11/22/16 12:00 40 11/22/16 12:00 65 11/22/16 11:50 64 35 40 11/22/16 11:50 40 11/22/16 11:00 62 19 144/92 100 Mechanical Ventilator 40 11/22/16 11:00 40 11/22/16 11:00 65 20 40 11/22/16 10:00 65 20 138/76 100 Mechanical Ventilator 40 11/22/16 09:02 65 19 40 11/22/16 09:00 67 21 162/77 100 Mechanical Ventilator 40 11/22/16 08:58 64 139/83 11/22/16 08:00 66 11/22/16 08:00 40 11/22/16 08:00 97.6 66 20 139/83 100 Mechanical Ventilator 40 77/17 07:00 66 22 131/76 100 Mechanical Ventilator 40 7/7/17 06:47 74 20 40 7/7/17 06:00 71 23 135/78 100 Mechanical Ventilator 40 7/ 05:35 149/79 7/7/17 05:19 67 18 40 7/7/17 05:00 79 24 149/79 100 Mechanical Ventilator 40 77/ 04:00 67 717 04:00 40 11/22/16 04:00 98.6 66 19 150/75 98 Mechanical Ventilator 40 77/17 03:00 62 16 155/83 100 Mechanical Ventilator 40 77/17 02:57 65 18 40 7/ 02:00 66 18 152/78 100 Mechanical Ventilator 40 11/22/ 01:47 67 29 40 7/7/ 01:00 70 19 150/84 99 Mechanical Ventilator 40 7/17 00:16 66 11/22/ 00:00 99.2 65 16 159/81 100 Mechanical Ventilator 40 7/ 00:00 40 7/6/17 23:47 153/86 7/6/17 23:00 67 22 153/86 100 Mechanical Ventilator 40 7/6/17 22:33 73 29 40 7/6/17 22:00 70 19 110/93 100 Mechanical Ventilator 40 7/6/17 21:27 68 25 40 7/6/17 21:00 72 20 156/80 100 Mechanical Ventilator 40 7/6/17 20:00 98.3 68 24 142/83 100 Mechanical Ventilator 40 7/6/17 20:00 40 7/6/17 20:00 69 7/6/17 19:16 73 26 40 7/6/17 19:00 69 20 133/74 100 Mechanical Ventilator 40 7/6/17 18:00 77 20 162/88 100 Mechanical Ventilator 40 7/6/17 17:28 162/86 7/6/17 17:00 67 20 164/92 100 Mechanical Ventilator 40 7/6/17 16:47 67 28 40 7/6/17 16:00 80 7/6/17 16:00 98.4 72 24 162/76 100 Mechanical Ventilator 40 7/6/17 16:00 40 7/6/17 15:29 68 26 40 7/6/17 15:00 68 20 101/84 100 Mechanical Ventilator 40 Intake and Output 11/21/16 11/22/16 19:00 07:00 Intake Total 592.5 ml 855.0 ml Output Total 1570 ml 820 ml Balance -977.5 ml 35.0 ml IV Total 82.5 ml 275.0 ml Tube Feeding 480 ml 480 ml Other 30 ml 100 ml Output Urine Total 1570 ml 820 ml Laboratory Tests 11/22/16 04:00: White Blood Count 9.3, Red Blood Count 3.90L, Hemoglobin 9.6L, Hematocrit 31.9L , Mean Corpuscular Volume 82, Mean Corpuscular Hemoglobin 24.6L, Mean Corpuscular Hemoglobin Concent 30.0L, Red Cell Distribution Width 17.4H, Platelet Count 272, Mean Platelet Volume 7.3, Neutrophils (%) (Auto) 61.9, Lymphocytes (%) (Auto) 24.8, Monocytes (%) (Auto) 8.3, Eosinophils (%) (Auto) 4.7H, Basophils (%) (Auto) 0.4, Sodium Level 140, Potassium Level 3.1L, Chloride Level 100, Carbon Dioxide Level 31H, Anion Gap 9, Blood Urea Nitrogen 21, Creatinine 1.2, Estimat Glomerular Filtration Rate , Glucose Level 145H, Calcium Level 8.6, Phosphorus Level 2.7, Magnesium Level 1.8, Total Bilirubin 0.4, Aspartate Amino Transf (AST/SGOT) 20, Alanine Aminotransferase (ALT/SGPT) 20, Alkaline Phosphatase 84, Total Protein 7.1, Albumin 2.5L, Globulin 4.6, Albumin/Globulin Ratio 0.5L Height (Feet): 6 Height (Inches): 1.00 Weight (Pounds): 173 General Appearance: lethargic EENT: normal ENT inspection Neck: normal alignment Cardiovascular: normal peripheral pulses, normal rate, regular rhythm Respiratory/Chest: chest wall non-tender, lungs clear, normal breath sounds Abdomen: normal bowel sounds, non tender, soft Extremities: normal inspection Edema: no edema noted Arm (L), no edema noted Arm (R), no edema noted Leg (L), no edema noted Leg (R), no edema noted Pedal (L), no edema noted Pedal (R), no edema noted Generalized Neurologic: motor weakness Skin: normal pigmentation, warm/dry YANES,CASS Nov 22, 2016 14:09
[2016-11-22] MEDS ORDERED: KCl 10% 40mEq/30ml liquid NG ONE (14:30)
--- NOTE | 2016-11-22 17:14 | Infectious Diseases Prog Note ---
Assessment/Plan Problems: (1) HCAP (healthcare-associated pneumonia) Assessment & Plan: present on admission, with staph aureus , on doxycycline to finish his course of treatment for 14 days total, EOT 11/28/16 (2) Septic shock Assessment & Plan: with proteus mirabilis ESBL + , suspect source is UTI , complicated with respiratory failure, on zosyn , repeated blood culture to confirm clearance is pending , will treat with zosyn for 14 days (3) Respiratory distress Assessment & Plan: due to the above, S/P intubation, continue mechanical ventilation, monitor ABG, titrate oxygen as needed (4) UTI (urinary tract infection) Assessment & Plan: with proteus mirabilis and Providencia stuartii , most likely the source of his sepsis, on zosyn for 14 days (5) Renal failure Assessment & Plan: improving, continue hydration, avoid nephrotoxic meds (6) Hydronephrosis of left kidney Assessment & Plan: with hematuria, most likely due to urethral tear , had urology eval , and no intervention needed for now Subjective ROS Limited/Unobtainable: Yes Allergies: Coded Allergies: No Known Allergies (Verified , 01/02/09) Subjective he is still intubated on mechanical ventilation, make facial grimaces , not in distress, off pressors, afebrile Objective Vital Signs Last 24 Hour Vital Signs Date Time Temp Pulse Resp B/P Pulse Ox O2 Delivery O2 Flow Rate FiO2 11/22/16 17:10 68 22 40 11/22/16 16:00 70 11/22/16 16:00 98.0 70 20 134/76 100 Mechanical Ventilator 40 11/22/16 15:03 40 11/22/16 15:00 70 21 115/72 100 Mechanical Ventilator 40 11/22/16 14:56 67 26 40 11/22/16 14:00 69 29 133/65 100 Mechanical Ventilator 40 11/22/16 13:23 155/70 11/22/16 13:06 69 19 144/92 100 Mechanical Ventilator 40 11/22/16 13:03 66 21 40 11/22/16 12:19 167/49 11/22/16 12:05 63 24 40 11/22/16 12:00 98.1 64 20 164/79 100 Mechanical Ventilator 40 11/22/16 12:00 40 11/22/16 12:00 65 11/22/16 11:50 64 35 40 11/22/16 11:50 40 11/22/16 11:00 62 19 144/92 100 Mechanical Ventilator 40 11/22/16 11:00 40 11/22/16 11:00 65 20 40 11/22/16 10:00 65 20 138/76 100 Mechanical Ventilator 40 11/22/16 09:02 65 19 40 11/22/16 09:00 67 21 162/77 100 Mechanical Ventilator 40 11/22/16 08:58 64 139/83 11/22/16 08:00 66 11/22/16 08:00 40 11/22/16 08:00 97.6 66 20 139/83 100 Mechanical Ventilator 40 11/22/16 07:00 66 22 131/76 100 Mechanical Ventilator 40 11/22/16 06:47 74 20 40 11/22/16 06:00 71 23 135/78 100 Mechanical Ventilator 40 11/22/16 05:35 149/79 11/22/16 05:19 67 18 40 11/22/16 05:00 79 24 149/79 100 Mechanical Ventilator 40 11/22/16 04:00 67 11/22/16 04:00 40 11/22/16 04:00 98.6 66 19 150/75 98 Mechanical Ventilator 40 11/22/16 03:00 62 16 155/83 100 Mechanical Ventilator 40 11/22/16 02:57 65 18 40 11/22/16 02:00 66 18 152/78 100 Mechanical Ventilator 40 11/22/16 01:47 67 29 40 11/22/16 01:00 70 19 150/84 99 Mechanical Ventilator 40 11/22/16 00:16 66 11/22/16 00:00 99.2 65 16 159/81 100 Mechanical Ventilator 40 11/22/16 00:00 40 11/21/16 23:47 153/86 11/21/16 23:00 67 22 153/86 100 Mechanical Ventilator 40 11/21/16 22:33 73 29 40 11/21/16 22:00 70 19 110/93 100 Mechanical Ventilator 40 11/21/16 21:27 68 25 40 11/21/16 21:00 72 20 156/80 100 Mechanical Ventilator 40 11/21/16 20:00 98.3 68 24 142/83 100 Mechanical Ventilator 40 11/21/16 20:00 40 11/21/16 20:00 69 11/21/16 19:16 73 26 40 11/21/16 19:00 69 20 133/74 100 Mechanical Ventilator 40 11/21/16 18:00 77 20 162/88 100 Mechanical Ventilator 40 11/21/16 17:28 162/86 Height (Feet): 6 Height (Inches): 1.00 Weight (Pounds): 173 General Appearance: WD/WN, no acute distress HEENT: normocephalic, atraumatic, anicteric, supple, no JVD Respiratory/Chest: chest wall non-tender, no respiratory distress, no accessory muscle use, decreased breath sounds, expiratory wheezing Cardiovascular: normal peripheral pulses, normal rate, regular rhythm, no gallop/murmur, no JVD Abdomen: normal bowel sounds, soft, non tender, no organomegaly, non distended , no mass, no scars Extremities: no cyanosis, no clubbing Skin: no rash, no lesions, ulcers Neurologic/Psychiatric: unresponsiveness, aphasia Lymphatic: no neck adenopathy Laboratory Tests Test 11/22/16 04:00 White Blood Count 9.3 K/UL (4.8-10.8) Red Blood Count 3.90 M/UL (4.70-6.10) L Hemoglobin 9.6 G/DL (14.2-18.0) L Hematocrit 31.9 % (42.0-52.0) L Mean Corpuscular Volume 82 FL (80-99) Mean Corpuscular Hemoglobin 24.6 PG (27.0-31.0) L Mean Corpuscular Hemoglobin Concent 30.0 G/DL (32.0-36.0) L Red Cell Distribution Width 17.4 % (11.6-14.8) H Platelet Count 272 K/UL (150-450) Mean Platelet Volume 7.3 FL (6.5-10.1) Neutrophils (%) (Auto) 61.9 % (45.0-75.0) Lymphocytes (%) (Auto) 24.8 % (20.0-45.0) Monocytes (%) (Auto) 8.3 % (1.0-10.0) Eosinophils (%) (Auto) 4.7 % (0.0-3.0) H Basophils (%) (Auto) 0.4 % (0.0-2.0) Sodium Level 140 mEQ/L (135-145) Potassium Level 3.1 mEQ/L (3.4-4.9) L Chloride Level 100 mEQ/L (98-107) Carbon Dioxide Level 31 mEQ/L (20-30) H Anion Gap 9 (5-15) Blood Urea Nitrogen 21 mg/dL (7-23) Creatinine 1.2 mg/dL (0.7-1.2) Estimat Glomerular Filtration Rate mL/min (>60) Glucose Level 145 mg/dL (74-106) H Calcium Level 8.6 mg/dL (8.6-10.2) Phosphorus Level 2.7 mg/dL (2.5-4.8) Magnesium Level 1.8 mg/dL (1.7-2.5) Total Bilirubin 0.4 mg/dL (0.0-1.2) Aspartate Amino Transf (AST/SGOT) 20 U/L (5-40) Alanine Aminotransferase (ALT/SGPT) 20 U/L (3-41) Alkaline Phosphatase 84 U/L (40-129) Total Protein 7.1 g/dL (6.6-8.7) Albumin 2.5 g/dL (3.5-5.2) L Globulin 4.6 g/dL Albumin/Globulin Ratio 0.5 (1.0-2.7) L Current Medications Medications (Trade) Dose Ordered Sig/Keira Route PRN Reason Start Time Stop Time Status Last Admin Dose Admin Acetaminophen (Tylenol) 650 mg Q4H PRN ORAL fever 11/14/16 18:00 12/14/16 17:59 11/17/16 21:35 Albuterol/ Ipratropium (DuoNeb 0.5-3(2.5)mg/3ml) 3 ml EVERY 4 HOURS PRN HHN Shortness of Breath 11/17/16 09:30 11/22/16 23:59 Amlodipine Besylate (Norvasc) 10 mg DAILY GT 11/18/16 11:00 12/18/16 10:59 11/22/16 08:58 Chlorhexidine Gluconate (Michelle-Hex 2%) 1 applic QHS TOPIC 11/15/16 21:00 12/15/16 20:59 11/21/16 21:10 Doxycycline Hyclate/Dextrose (Vibramycin/D5W) 110 ml @ 110 mls/hr Q12HR@0600,1800 IV 11/20/16 18:00 11/28/16 18:01 11/22/16 05:35 Heparin Sodium (Porcine) (Heparin 5000 units/ml) 5,000 units EVERY 12 HOURS SUBQ 11/15/16 21:00 12/15/16 20:59 11/22/16 09:00 Hydralazine HCl (Apresoline) 10 mg Q4H PRN IV SBP > 150 11/18/16 12:15 12/18/16 12:14 11/22/16 13:23 Hydralazine HCl 25 mg 25 mg Q6HR GT 11/20/16 10:28 12/19/16 05:59 11/22/16 12:19 Hydromorphone HCl (Dilaudid) 0.5 mg Q4H PRN IVP Severe Pain (Pain Scale 7-10) 11/21/16 10:30 11/28/16 10:29 Lansoprazole (Prevacid) 30 mg DAILY GT 11/19/16 09:00 12/19/16 08:59 11/22/16 08:58 Ondansetron HCl (Zofran) 4 mg Q6H PRN IVP Nausea & Vomiting 11/14/16 20:00 12/14/16 19:59 Piperacillin Sod/ Tazobactam Sod/ Dextrose (Zosyn/D5W) 110 ml @ 27.5 mls/hr Q8H IVPB 11/17/16 12:00 12/04/16 23:00 11/22/16 12:11 Polyethylene Glycol 17 gm 17 gm DAILYPRN PRN GT Constipation 11/17/16 10:41 12/15/16 13:59 11/21/16 03:06 Vitamin A/Vitamin D (A & D Oint) 1 applic EVERY 12 HOURS TOPIC 11/15/16 21:00 12/15/16 20:59 11/22/16 09:00 Julianna Trejo M.D. Nov 22, 2016 17:14
[2016-11-22] MEDS ORDERED: NS 275ml ONE (17:34)
[2016-11-22] MEDS: Dyna-Hex 2% Top Sol 8oz TOPIC SCH (20:47)
--- NOTE | 2016-11-22 22:45 | Progress Note ---
DATE: 11/21/2016 CARDIOLOGY PROGRESS NOTE Late entry for 11/21/2016. SUBJECTIVE: The patient remains in the intensive care unit. Condition remains critical. Prognosis remains guarded. The patient remains on ventilator support. OBJECTIVE: VITAL SIGNS: Blood pressure is 147/67, pulse 65, and respirations 21. LUNGS: Bilateral breath sounds with rhonchi. HEART: Regular rhythm and rate. Normal S1 and S2 with a fourth heart sound. ABDOMEN: Soft. EXTREMITIES: Trace dependent edema. LABORATORY DATA: White count 9.1 and hemoglobin 9.5. Sodium 139, potassium 3.5, bicarbonate 29, BUN 23, and creatinine 1.4. Glucose 116. Pro-natriuretic peptide is 4197. IMPRESSION: 1. Sepsis. 2. Recovered shock. 3. Hypertensive heart disease. 4. Acute and chronic diastolic congestive heart failure. 5. Respiratory failure. PLAN: 1. Off IV fluids. 2. Titrate antihypertensives. 3. Antimicrobials. 4. Ventilator support with weaning. 5. We will reassess for diuresis. 6. DVT and stress ulcer prophylaxes. Riki Francois M.D. DR: GIUSEPPE JOB#: [id number] CC:
--- NOTE | 2016-11-22 23:15 | Progress Note ---
DATE: 11/22/2016 CARDIOLOGY PROGRESS NOTE SUBJECTIVE: Weaning efforts ongoing. The patient remains on ventilator support. The patient is off pressors. Blood pressure range is increasing. Antihypertensives have been titrated. OBJECTIVE: VITAL SIGNS: Blood pressure 144/92, pulse 62, respirations 19, and afebrile. LUNGS: Bilateral breath sounds. Few rhonchi. HEART: Regular rhythm and rate. Normal S1 and S2. ABDOMEN: Soft. EXTREMITIES: Trace edema. LABORATORY DATA: White count 9.3 and hemoglobin 9.6. Potassium 3.1, BUN 21, and creatinine 1.2. Albumin 2.5. IMPRESSION: 1. Respiratory failure. 2. Hypokalemia. 3. Acute on chronic diastolic congestive heart failure. 4. Severe protein-calorie malnutrition. 5. Recovered sepsis with shock. 6. Healthcare-acquired pneumonia. PLAN: 1. Replace potassium. 2. Check magnesium. 3. Diuresis. 4. Respiratory hygiene. 5. Weaning as able 6. DVT and stress ulcer prophylaxes. 7. Antimicrobials. 8. Titration of antihypertensives. Riki Francois M.D. DR: GIUSEPPE JOB#: [id number] CC:
[2016-11-23] VITALS (24 sets, daily range): BP systolic 122–179; BP diastolic 72–97
[2016-11-23] MEDS: HydrALAZINE 25mg tab GT SCH ×5 (00:21→23:45)
[2016-11-23] MEDS: Piperacillin/Tazobactam 3.375 GM in D5W 110 ML IVPB SCH ×3 (04:01→19:34)
[2016-11-23 05:09] LABS: BASOPHILS % (AUTO) 0.4 % (0.0-2.0); EOSINOPHILS % (AUTO) 3.4 % (0.0-3.0); LYMPHOCYTES % (AUTO) 30.3 % (20.0-45.0); MEAN CORPUSCULAR HEMOGLOBIN 25.1 PG (27.0-31.0); MEAN CORPUSCULAR HGB CONC 30.9 G/DL (32.0-36.0); MEAN CORPUSCULAR VOLUME 81 FL (80-99); MEAN PLATELET VOLUME 7.9 FL (6.5-10.1); MONOCYTES % (AUTO) 8.2 % (1.0-10.0); NEUTROPHILS % (AUTO) 57.7 % (45.0-75.0); PLATELET COUNT 316 K/UL (150-450); RED CELL DISTRIBUTION WIDTH 17.8 % (11.6-14.8)
[2016-11-23 05:16] LABS: ALANINE AMINOTRANSFERASE 19 U/L (3-41); ALBUMIN/GLOBULIN RATIO 0.4 (1.0-2.7); ANION GAP 13 (5-15); ASPARTATE AMINO TRANSFERASE 21 U/L (5-40); CALCIUM 9.1 mg/dL (8.6-10.2); CARBON DIOXIDE 30 mEQ/L (20-30); CHLORIDE 97 mEQ/L (98-107); CREATININE 1.3 mg/dL (0.7-1.2); HEMOLYSIS 3; POTASSIUM 3.7 mEQ/L (3.4-4.9); SODIUM 140 mEQ/L (135-145); TOTAL PROTEIN 7.5 g/dL (6.6-8.7)
[2016-11-23] MEDS: Doxycycline Hyclate 100 MG in D5W 110 ML IV SCH ×2 (05:51→17:33)
[2016-11-23] MEDS: Heparin 5000 units/ml inj SUBQ SCH ×2 (08:05→20:32)
[2016-11-23] MEDS: Vitamin A&D Oint 2oz Tube TOPIC SCH ×2 (08:06→20:32)
--- NOTE | 2016-11-23 08:55 | General Progress Note ---
Assessment/Plan Problem List: (1) Sepsis ICD Codes: A41.9 - Sepsis, unspecified organism SNOMED: 03820337 (2) Septic shock ICD Codes: A41.9 - Sepsis, unspecified organism; R65.21 - Severe sepsis with septic shock SNOMED: 16905983 (3) Renal failure ICD Codes: N19 - Unspecified kidney failure SNOMED: 94767629 Qualifiers: Qualified Codes: N17.9 - Acute kidney failure, unspecified (4) Respiratory distress ICD Codes: R06.00 - Dyspnea, unspecified SNOMED: 111642086 (5) Pneumonia ICD Codes: J18.9 - Pneumonia, unspecified organism SNOMED: 785147302 (6) UTI (urinary tract infection) ICD Codes: N39.0 - Urinary tract infection, site not specified SNOMED: 77538693 Status: stable, progressing, tolerating diet Assessment/Plan vent abx cbc bmp am, wean vent if possible, ltach transfer Subjective Constitutional: Reports: weakness Allergies: Coded Allergies: No Known Allergies (Verified , 01/02/09) All Systems: reviewed and negative except above Subjective intubated sedated in icu Objective Last 24 Hour Vital Signs Date Time Temp Pulse Resp B/P Pulse Ox O2 Delivery O2 Flow Rate FiO2 11/23/16 08:40 40 11/23/16 08:38 99 11/23/16 08:36 70 18 40 11/23/16 08:06 67 143/79 11/23/16 08:00 67 11/23/16 08:00 99.0 68 18 143/79 98 Mechanical Ventilator 40 11/23/16 08:00 40 11/23/16 07:15 67 22 40 11/23/16 07:00 69 19 149/80 100 Mechanical Ventilator 40 11/23/16 06:00 66 20 140/74 100 Mechanical Ventilator 40 11/23/16 05:51 138/95 11/23/16 05:00 66 21 138/95 100 Mechanical Ventilator 40 11/23/16 04:49 64 18 40 11/23/16 04:00 40 11/23/16 04:00 66 11/23/16 04:00 97.6 68 18 150/96 100 Mechanical Ventilator 40 11/23/16 03:00 69 20 134/80 98 Mechanical Ventilator 40 11/23/16 02:49 69 20 40 11/23/16 02:00 72 19 149/84 100 Mechanical Ventilator 40 8 01:00 69 18 122/77 100 Mechanical Ventilator 40 8 00:28 68 17 40 8 00:21 153/93 11/23/16 00:00 97.9 72 18 149/83 100 Mechanical Ventilator 40 8 00:00 69 8 00:00 40 11/22/16 23:00 69 19 150/85 100 Mechanical Ventilator 40 11/22/16 22:32 74 22 40 11/22/16 22:00 71 18 125/75 100 Mechanical Ventilator 40 11/22/16 21:00 69 22 40 11/22/16 21:00 73 18 153/93 100 Mechanical Ventilator 40 11/22/16 20:00 40 11/22/16 20:00 68 11/22/16 20:00 97.9 69 24 136/75 100 Mechanical Ventilator 40 11/22/16 19:00 80 20 109/71 100 Mechanical Ventilator 40 11/22/16 18:41 75 28 40 11/22/16 18:00 70 20 133/78 100 Mechanical Ventilator 40 11/22/16 17:35 107/84 11/22/16 17:10 68 22 40 11/22/16 17:00 69 21 107/84 100 Mechanical Ventilator 40 11/22/16 16:00 70 11/22/16 16:00 98.0 70 20 134/76 100 Mechanical Ventilator 40 11/22/16 15:03 40 11/22/16 15:00 70 21 115/72 100 Mechanical Ventilator 40 11/22/16 14:56 67 26 40 11/22/16 14:00 69 29 133/65 100 Mechanical Ventilator 40 11/22/16 13:23 155/70 11/22/16 13:06 69 19 144/92 100 Mechanical Ventilator 40 11/22/16 13:03 66 21 40 11/22/16 12:19 167/49 11/22/16 12:05 63 24 40 11/22/16 12:00 98.1 64 20 164/79 100 Mechanical Ventilator 40 11/22/16 12:00 40 11/22/16 12:00 65 11/22/16 11:50 64 35 40 11/22/16 11:50 40 11/22/16 11:00 62 19 144/92 100 Mechanical Ventilator 40 11/22/16 11:00 40 11/22/16 11:00 65 20 40 11/22/16 10:00 65 20 138/76 100 Mechanical Ventilator 40 11/22/16 09:02 65 19 40 11/22/16 09:00 67 21 162/77 100 Mechanical Ventilator 40 11/22/16 08:58 64 139/83 Intake and Output 11/22/16 11/23/16 19:00 07:00 Intake Total 1240.0 ml 702.5 ml Output Total 1070 ml 805 ml Balance 170.0 ml -102.5 ml Intake Free Water 60 ml IV Total 420.0 ml 302.5 ml Tube Feeding 520 ml 400 ml Other 240 ml Output Urine Total 1070 ml 805 ml # Bowel Movements 1 Laboratory Tests 11/23/16 04:00: White Blood Count 9.0, Red Blood Count 3.90L, Hemoglobin 9.8L, Hematocrit 31.6L , Mean Corpuscular Volume 81, Mean Corpuscular Hemoglobin 25.1L, Mean Corpuscular Hemoglobin Concent 30.9L, Red Cell Distribution Width 17.8H, Platelet Count 316, Mean Platelet Volume 7.9, Neutrophils (%) (Auto) 57.7, Lymphocytes (%) (Auto) 30.3, Monocytes (%) (Auto) 8.2, Eosinophils (%) (Auto) 3.4H, Basophils (%) (Auto) 0.4, Sodium Level 140, Potassium Level 3.7, Chloride Level 97L, Carbon Dioxide Level 30, Anion Gap 13, Blood Urea Nitrogen 25H, Creatinine 1.3H, Estimat Glomerular Filtration Rate , Glucose Level 106, Calcium Level 9.1, Total Bilirubin 0.3, Aspartate Amino Transf (AST/SGOT) 21, Alanine Aminotransferase (ALT/SGPT) 19, Alkaline Phosphatase 91, Total Protein 7.5, Albumin 2.4L, Globulin 5.1, Albumin/Globulin Ratio 0.4L Height (Feet): 6 Height (Inches): 1.00 Weight (Pounds): 172 General Appearance: lethargic EENT: normal ENT inspection Neck: normal alignment Cardiovascular: normal peripheral pulses, normal rate, regular rhythm Respiratory/Chest: chest wall non-tender, lungs clear, normal breath sounds Abdomen: normal bowel sounds, non tender, soft Extremities: normal inspection Edema: no edema noted Arm (L), no edema noted Arm (R), no edema noted Leg (L), no edema noted Leg (R), no edema noted Pedal (L), no edema noted Pedal (R), no edema noted Generalized Neurologic: motor weakness Skin: normal pigmentation, warm/dry CASS YANES Nov 23, 2016 08:55
[2016-11-23] MEDS ORDERED: Tubing IV Secondary IV ONE (09:02)
[2016-11-23] MEDS ORDERED: NS 275ml ONE (09:02)
--- NOTE | 2016-11-23 12:40 | General Progress Note ---
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; L03.319 - Cellulitis of trunk, unspecified SNOMED: 587397035, 545551830 (3) Anemia ICD Codes: D64.9 - Anemia, unspecified SNOMED: 779565201 (4) Respiratory distress ICD Codes: R06.00 - Dyspnea, unspecified SNOMED: 909500089 (5) Renal failure ICD Codes: N19 - Unspecified kidney failure SNOMED: 94303336 Qualifiers: Qualified Codes: N17.9 - Acute kidney failure, unspecified Assessment/Plan GTF monitor H&H icu care ppi fu Subjective ROS Limited/Unobtainable: No Allergies: Coded Allergies: No Known Allergies (Verified , 01/02/09) Objective Last 24 Hour Vital Signs Date Time Temp Pulse Resp B/P Pulse Ox O2 Delivery O2 Flow Rate FiO2 11/23/16 12:00 98.2 72 20 136/73 100 Mechanical Ventilator 40 11/23/16 12:00 71 11/23/16 11:35 141/78 11/23/16 11:00 74 19 141/78 100 Mechanical Ventilator 40 11/23/16 10:36 73 19 40 11/23/16 10:00 73 19 134/84 100 Mechanical Ventilator 40 11/23/16 09:00 71 18 143/74 100 Mechanical Ventilator 40 11/23/16 08:40 40 11/23/16 08:38 99 11/23/16 08:36 70 18 40 11/23/16 08:06 67 143/79 11/23/16 08:00 67 11/23/16 08:00 99.0 68 18 143/79 98 Mechanical Ventilator 40 11/23/16 08:00 40 11/23/16 07:15 67 22 40 11/23/16 07:00 69 19 149/80 100 Mechanical Ventilator 40 11/23/16 06:00 66 20 140/74 100 Mechanical Ventilator 40 11/23/16 05:51 138/95 11/23/16 05:00 66 21 138/95 100 Mechanical Ventilator 40 11/23/16 04:49 64 18 40 11/23/16 04:00 40 11/23/16 04:00 66 11/23/16 04:00 97.6 68 18 150/96 100 Mechanical Ventilator 40 11/23/16 03:00 69 20 134/80 98 Mechanical Ventilator 40 11/23/16 02:49 69 20 40 11/23/16 02:00 72 19 149/84 100 Mechanical Ventilator 40 11/23/16 01:00 69 18 122/77 100 Mechanical Ventilator 40 11/23/16 00:28 68 17 40 11/23/16 00:21 153/93 11/23/16 00:00 97.9 72 18 149/83 100 Mechanical Ventilator 40 11/23/16 00:00 69 11/23/16 00:00 40 11/22/16 23:00 69 19 150/85 100 Mechanical Ventilator 40 11/22/16 22:32 74 22 40 11/22/16 22:00 71 18 125/75 100 Mechanical Ventilator 40 11/22/16 21:00 69 22 40 11/22/16 21:00 73 18 153/93 100 Mechanical Ventilator 40 11/22/16 20:00 40 11/22/16 20:00 68 11/22/16 20:00 97.9 69 24 136/75 100 Mechanical Ventilator 40 11/22/16 19:00 80 20 109/71 100 Mechanical Ventilator 40 11/22/16 18:41 75 28 40 11/22/16 18:00 70 20 133/78 100 Mechanical Ventilator 40 11/22/16 17:35 107/84 11/22/16 17:10 68 22 40 11/22/16 17:00 69 21 107/84 100 Mechanical Ventilator 40 11/22/16 16:00 70 11/22/16 16:00 98.0 70 20 134/76 100 Mechanical Ventilator 40 11/22/16 15:03 40 11/22/16 15:00 70 21 115/72 100 Mechanical Ventilator 40 11/22/16 14:56 67 26 40 11/22/16 14:00 69 29 133/65 100 Mechanical Ventilator 40 11/22/16 13:23 155/70 11/22/16 13:06 69 19 144/92 100 Mechanical Ventilator 40 11/22/16 13:03 66 21 40 Intake and Output 11/22/16 11/23/16 19:00 07:00 Intake Total 1240.0 ml 702.5 ml Output Total 1070 ml 805 ml Balance 170.0 ml -102.5 ml Intake Free Water 60 ml IV Total 420.0 ml 302.5 ml Tube Feeding 520 ml 400 ml Other 240 ml Output Urine Total 1070 ml 805 ml # Bowel Movements 1 Laboratory Tests 11/23/16 04:00: White Blood Count 9.0, Red Blood Count 3.90L, Hemoglobin 9.8L, Hematocrit 31.6L , Mean Corpuscular Volume 81, Mean Corpuscular Hemoglobin 25.1L, Mean Corpuscular Hemoglobin Concent 30.9L, Red Cell Distribution Width 17.8H, Platelet Count 316, Mean Platelet Volume 7.9, Neutrophils (%) (Auto) 57.7, Lymphocytes (%) (Auto) 30.3, Monocytes (%) (Auto) 8.2, Eosinophils (%) (Auto) 3.4H, Basophils (%) (Auto) 0.4, Sodium Level 140, Potassium Level 3.7, Chloride Level 97L, Carbon Dioxide Level 30, Anion Gap 13, Blood Urea Nitrogen 25H, Creatinine 1.3H, Estimat Glomerular Filtration Rate , Glucose Level 106, Calcium Level 9.1, Total Bilirubin 0.3, Aspartate Amino Transf (AST/SGOT) 21, Alanine Aminotransferase (ALT/SGPT) 19, Alkaline Phosphatase 91, Total Protein 7.5, Albumin 2.4L, Globulin 5.1, Albumin/Globulin Ratio 0.4L Height (Feet): 6 Height (Inches): 1.00 Weight (Pounds): 172 General Appearance: no apparent distress EENT: normal ENT inspection Neck: supple Cardiovascular: normal rate Respiratory/Chest: decreased breath sounds Abdomen: normal bowel sounds, non tender, soft Extremities: non-tender MELISSA SOLOMON Nov 23, 2016 12:40
--- NOTE | 2016-11-23 14:47 | Infectious Diseases Prog Note ---
Assessment/Plan Problems: (1) HCAP (healthcare-associated pneumonia) Assessment & Plan: present on admission, with MRSA , on doxycycline to finish his course of treatment for 14 days total, EOT 11/28/16 (2) Septic shock Assessment & Plan: with proteus mirabilis ESBL + , suspect source is UTI , complicated with respiratory failure, on zosyn , repeated blood culture to confirm clearance is negative , will treat with zosyn for 14 days . EOT (3) Respiratory distress Assessment & Plan: due to the above, S/P intubation, continue mechanical ventilation, monitor ABG, titrate oxygen as needed (4) UTI (urinary tract infection) Assessment & Plan: with proteus mirabilis and Providencia stuartii , most likely the source of his sepsis, on zosyn for 14 days (5) Renal failure Assessment & Plan: improving, continue hydration, avoid nephrotoxic meds (6) Hydronephrosis of left kidney Assessment & Plan: with hematuria, most likely due to urethral tear , had urology eval , and no intervention needed for now Subjective ROS Limited/Unobtainable: Yes Allergies: Coded Allergies: No Known Allergies (Verified , 01/02/09) Subjective he is still intubated on mechanical ventilation, not in distress, off pressors , afebrile Objective Vital Signs Last 24 Hour Vital Signs Date Time Temp Pulse Resp B/P Pulse Ox O2 Delivery O2 Flow Rate FiO2 11/23/16 14:00 72 19 136/82 100 Mechanical Ventilator 40 11/23/16 13:00 74 19 136/82 100 Mechanical Ventilator 40 11/23/16 12:41 74 18 40 11/23/16 12:00 40 11/23/16 12:00 98.2 72 20 136/73 100 Mechanical Ventilator 40 11/23/16 12:00 71 11/23/16 11:35 141/78 11/23/16 11:00 74 19 141/78 100 Mechanical Ventilator 40 11/23/16 10:36 73 19 40 11/23/16 10:00 73 19 134/84 100 Mechanical Ventilator 40 11/23/16 09:00 71 18 143/74 100 Mechanical Ventilator 40 11/23/16 08:40 40 11/23/16 08:38 99 11/23/16 08:36 70 18 40 11/23/16 08:06 67 143/79 17 08:00 67 /8 08:00 99.0 68 18 143/79 98 Mechanical Ventilator 40 11/23/16 08:00 40 11/23/16 07:15 67 22 40 11/23/16 07:00 69 19 149/80 100 Mechanical Ventilator 40 11/23/16 06:00 66 20 140/74 100 Mechanical Ventilator 40 11/23/16 05:51 138/95 11/23/16 05:00 66 21 138/95 100 Mechanical Ventilator 40 11/23/16 04:49 64 18 40 8 04:00 40 11/23/16 04:00 66 11/23/16 04:00 97.6 68 18 150/96 100 Mechanical Ventilator 40 11/23/16 03:00 69 20 134/80 98 Mechanical Ventilator 40 11/23/16 02:49 69 20 40 11/23/16 02:00 72 19 149/84 100 Mechanical Ventilator 40 11/23/16 01:00 69 18 122/77 100 Mechanical Ventilator 40 11/23/16 00:28 68 17 40 11/23/16 00:21 153/93 11/23/16 00:00 97.9 72 18 149/83 100 Mechanical Ventilator 40 11/23/16 00:00 69 11/23/16 00:00 40 11/22/16 23:00 69 19 150/85 100 Mechanical Ventilator 40 11/22/16 22:32 74 22 40 11/22/16 22:00 71 18 125/75 100 Mechanical Ventilator 40 11/22/16 21:00 69 22 40 11/22/16 21:00 73 18 153/93 100 Mechanical Ventilator 40 11/22/16 20:00 40 11/22/16 20:00 68 11/22/16 20:00 97.9 69 24 136/75 100 Mechanical Ventilator 40 11/22/16 19:00 80 20 109/71 100 Mechanical Ventilator 40 11/22/16 18:41 75 28 40 11/22/16 18:00 70 20 133/78 100 Mechanical Ventilator 40 11/22/17 17:35 107/84 17 17:10 68 22 40 11/22/17 17:00 69 21 107/84 100 Mechanical Ventilator 40 17 16:00 70 11/22/16 16:00 98.0 70 20 134/76 100 Mechanical Ventilator 40 11/22/16 15:03 40 11/22/16 15:00 70 21 115/72 100 Mechanical Ventilator 40 11/22/16 14:56 67 26 40 Height (Feet): 6 Height (Inches): 1.00 Weight (Pounds): 172 General Appearance: WD/WN, no acute distress HEENT: normocephalic, atraumatic, anicteric, mucous membranes moist Respiratory/Chest: chest wall non-tender, normal breath sounds, no respiratory distress, no accessory muscle use, decreased breath sounds, crackles/rales Cardiovascular: normal peripheral pulses, normal rate, regular rhythm, no gallop/murmur, no JVD Abdomen: normal bowel sounds, soft, non tender, no organomegaly, non distended , no mass Extremities: no cyanosis, no clubbing Skin: no rash, no lesions, ulcers Neurologic/Psychiatric: unresponsiveness Lymphatic: no neck adenopathy, no groin adenopathy Laboratory Tests Test 11/23/16 04:00 White Blood Count 9.0 K/UL (4.8-10.8) Red Blood Count 3.90 M/UL (4.70-6.10) L Hemoglobin 9.8 G/DL (14.2-18.0) L Hematocrit 31.6 % (42.0-52.0) L Mean Corpuscular Volume 81 FL (80-99) Mean Corpuscular Hemoglobin 25.1 PG (27.0-31.0) L Mean Corpuscular Hemoglobin Concent 30.9 G/DL (32.0-36.0) L Red Cell Distribution Width 17.8 % (11.6-14.8) H Platelet Count 316 K/UL (150-450) Mean Platelet Volume 7.9 FL (6.5-10.1) Neutrophils (%) (Auto) 57.7 % (45.0-75.0) Lymphocytes (%) (Auto) 30.3 % (20.0-45.0) Monocytes (%) (Auto) 8.2 % (1.0-10.0) Eosinophils (%) (Auto) 3.4 % (0.0-3.0) H Basophils (%) (Auto) 0.4 % (0.0-2.0) Sodium Level 140 mEQ/L (135-145) Potassium Level 3.7 mEQ/L (3.4-4.9) Chloride Level 97 mEQ/L (98-107) L Carbon Dioxide Level 30 mEQ/L (20-30) Anion Gap 13 (5-15) Blood Urea Nitrogen 25 mg/dL (7-23) H Creatinine 1.3 mg/dL (0.7-1.2) H Estimat Glomerular Filtration Rate mL/min (>60) Glucose Level 106 mg/dL (74-106) Calcium Level 9.1 mg/dL (8.6-10.2) Total Bilirubin 0.3 mg/dL (0.0-1.2) Aspartate Amino Transf (AST/SGOT) 21 U/L (5-40) Alanine Aminotransferase (ALT/SGPT) 19 U/L (3-41) Alkaline Phosphatase 91 U/L (40-129) Total Protein 7.5 g/dL (6.6-8.7) Albumin 2.4 g/dL (3.5-5.2) L Globulin 5.1 g/dL Albumin/Globulin Ratio 0.4 (1.0-2.7) L Current Medications Medications (Trade) Dose Ordered Sig/Keira Route PRN Reason Start Time Stop Time Status Last Admin Dose Admin Acetaminophen (Tylenol) 650 mg Q4H PRN ORAL fever 11/14/16 18:00 12/14/16 17:59 11/17/16 21:35 Amlodipine Besylate (Norvasc) 10 mg DAILY GT 11/18/16 11:00 12/18/16 10:59 11/23/16 08:06 Chlorhexidine Gluconate (Michelle-Hex 2%) 1 applic QHS TOPIC 11/15/16 21:00 12/15/16 20:59 11/22/16 20:47 Doxycycline Hyclate/Dextrose (Vibramycin/D5W) 110 ml @ 110 mls/hr Q12HR@0600,1800 IV 11/20/16 18:00 11/28/16 18:01 11/23/16 05:51 Heparin Sodium (Porcine) (Heparin 5000 units/ml) 5,000 units EVERY 12 HOURS SUBQ 11/15/16 21:00 12/15/16 20:59 11/23/16 08:05 Hydralazine HCl (Apresoline) 10 mg Q4H PRN IV SBP > 150 11/18/16 12:15 12/18/16 12:14 11/22/16 13:23 Hydralazine HCl 25 mg 25 mg Q6HR GT 11/20/16 10:28 12/19/16 05:59 11/23/16 11:35 Hydromorphone HCl (Dilaudid) 0.5 mg Q4H PRN IVP Severe Pain (Pain Scale 7-10) 11/21/16 10:30 11/28/16 10:29 Lansoprazole (Prevacid) 30 mg DAILY GT 11/19/16 09:00 12/19/16 08:59 11/23/16 08:04 Ondansetron HCl (Zofran) 4 mg Q6H PRN IVP Nausea & Vomiting 11/14/16 20:00 12/14/16 19:59 Piperacillin Sod/ Tazobactam Sod/ Dextrose (Zosyn/D5W) 110 ml @ 27.5 mls/hr Q8H IVPB 11/17/16 12:00 12/04/16 23:00 11/23/16 11:36 Polyethylene Glycol 17 gm 17 gm DAILYPRN PRN GT Constipation 11/17/16 10:41 12/15/16 13:59 11/21/16 03:06 Vitamin A/Vitamin D (A & D Oint) 1 applic EVERY 12 HOURS TOPIC 11/15/16 21:00 12/15/16 20:59 11/23/16 08:06 Julianna Trejo M.D. Nov 23, 2016 14:47
[2016-11-23] MEDS: Dyna-Hex 2% Top Sol 8oz TOPIC SCH (20:32)
--- NOTE | 2016-11-23 21:53 | Pulmonolgy Critical Care Note ---
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 fine - Objective Last 24 Hour Vital Signs Date Time Temp Pulse Resp B/P Pulse Ox O2 Delivery O2 Flow Rate FiO2 11/23/16 21:11 67 21 40 11/23/16 20:00 98.3 70 18 150/87 98 Mechanical Ventilator 40 11/23/16 20:00 40 11/23/16 19:07 71 21 40 11/23/16 19:00 68 19 141/82 98 Mechanical Ventilator 40 11/23/16 18:00 71 20 140/77 98 Mechanical Ventilator 40 11/23/16 17:32 166/89 11/23/16 17:24 72 18 40 11/23/16 17:00 69 20 149/79 98 Mechanical Ventilator 40 11/23/16 16:00 70 11/23/16 16:00 98.1 69 20 126/78 98 Mechanical Ventilator 40 11/23/16 16:00 40 11/23/16 15:10 73 18 40 11/23/16 15:00 74 20 151/81 100 Mechanical Ventilator 40 11/23/16 14:00 72 19 136/82 100 Mechanical Ventilator 40 11/23/16 13:00 74 19 136/82 100 Mechanical Ventilator 40 11/23/16 12:41 74 18 40 11/23/16 12:00 40 11/23/16 12:00 98.2 72 20 136/73 100 Mechanical Ventilator 40 11/23/16 12:00 71 11/23/16 11:35 141/78 11/23/16 11:00 74 19 141/78 100 Mechanical Ventilator 40 11/23/16 10:36 73 19 40 11/23/16 10:00 73 19 134/84 100 Mechanical Ventilator 40 11/23/16 09:00 71 18 143/74 100 Mechanical Ventilator 40 11/23/16 08:40 40 11/23/16 08:38 99 11/23/16 08:36 70 18 40 11/23/16 08:06 67 143/79 11/23/16 08:00 67 11/23/16 08:00 99.0 68 18 143/79 98 Mechanical Ventilator 40 11/23/16 08:00 40 11/23/16 07:15 67 22 40 11/23/16 07:00 69 19 149/80 100 Mechanical Ventilator 40 11/23/16 06:00 66 20 140/74 100 Mechanical Ventilator 40 11/23/16 05:51 138/95 11/23/16 05:00 66 21 138/95 100 Mechanical Ventilator 40 11/23/16 04:49 64 18 40 11/23/16 04:00 40 11/23/16 04:00 66 11/23/16 04:00 97.6 68 18 150/96 100 Mechanical Ventilator 40 11/23/16 03:00 69 20 134/80 98 Mechanical Ventilator 40 11/23/16 02:49 69 20 40 11/23/16 02:00 72 19 149/84 100 Mechanical Ventilator 40 11/23/16 01:00 69 18 122/77 100 Mechanical Ventilator 40 11/23/16 00:28 68 17 40 11/23/16 00:21 153/93 11/23/16 00:00 97.9 72 18 149/83 100 Mechanical Ventilator 11/23/16 00:00 69 11/23/16 00:00 40 11/22/16 23:00 69 19 150/85 100 Mechanical Ventilator 40 11/22/16 22:32 74 22 40 11/22/16 22:00 71 18 125/75 100 Mechanical Ventilator 40 Status: awake Condition: grave HEENT: atraumatic Lungs: clear, chest wall tender Heart: HR/BP unstable, regular Abdomen: non-tender, feeding tube Decubiti: location Critical Care - Subjective ROS Limited/Unobtainable: Yes ICU Day: 10 Condition: critical EKG Rhythm: Sinus Rhythm FI02: 40 Vent Support Breath Rate: 18 Vent Support Mode: AC Vent Tidal Volume: 500 Sputum Amount: Scant PEEP: 5.0 PIP: 29 Tube Feeding Amount: 40 I&O: Intake and Output 11/22/16 11/23/16 19:00 07:00 Intake Total 1240.0 ml 702.5 ml Output Total 1070 ml 805 ml Balance 170.0 ml -102.5 ml Intake Free Water 60 ml IV Total 420.0 ml 302.5 ml Tube Feeding 520 ml 400 ml Other 240 ml Output Urine Total 1070 ml 805 ml # Bowel Movements 1 CXR: no change, ET in good position ET-Tube: 8.0 ET Position: 24 MARY CABELLO Nov 23, 2016 21:53
[2016-11-24] VITALS (25 sets, daily range): BP systolic 132–169; BP diastolic 71–95
[2016-11-24] MEDS ORDERED: KCl 10% 40mEq/30ml liquid NG ONE (02:00)
[2016-11-24] MEDS: Piperacillin/Tazobactam 3.375 GM in D5W 110 ML IVPB SCH ×3 (03:53→19:59)
[2016-11-24 05:21] LABS: BASOPHILS % (AUTO) 0.4 % (0.0-2.0); LYMPHOCYTES % (AUTO) 25.5 % (20.0-45.0); MEAN CORPUSCULAR HEMOGLOBIN 24.6 PG (27.0-31.0); MEAN CORPUSCULAR HGB CONC 30.2 G/DL (32.0-36.0); MEAN CORPUSCULAR VOLUME 81 FL (80-99); MEAN PLATELET VOLUME 6.6 FL (6.5-10.1); MONOCYTES % (AUTO) 6.9 % (1.0-10.0); NEUTROPHILS % (AUTO) 63.2 % (45.0-75.0); PLATELET COUNT 322 K/UL (150-450); RED BLOOD COUNT 4.03 M/UL (4.70-6.10); RED CELL DISTRIBUTION WIDTH 17.6 % (11.6-14.8); WHITE BLOOD COUNT 10.7 K/UL (4.8-10.8)
[2016-11-24 05:28] LABS: ANION GAP 13 (5-15); CALCIUM 9.5 mg/dL (8.6-10.2); CARBON DIOXIDE 30 mEQ/L (20-30); CHLORIDE 97 mEQ/L (98-107); CREATININE 1.4 mg/dL (0.7-1.2); HEMOLYSIS 0; SODIUM 140 mEQ/L (135-145)
--- NOTE | 2016-11-24 05:30 | Progress Note ---
DATE: 11/23/2016 CARDIOLOGY PROGRESS NOTE SUBJECTIVE: Critical care. The patient remains in the intensive care unit. Condition remains critical with guarded prognosis. The patient remains orally intubated and ventilator support. OBJECTIVE: VITAL SIGNS: Blood pressure 150/87, pulse 70, respirations 18, and afebrile. LUNGS: Bilateral breath sounds. Scattered rhonchi. HEART: Regular rhythm and rate. Normal S1 and S2. ABDOMEN: Soft. EXTREMITIES: Dependent edema. LABORATORY AND DIAGNOSTIC DATA: White count 9 and hemoglobin 9.8. Sodium 140, potassium 3.7, bicarbonate 30, BUN 25, and creatinine 1.3. Albumin is 2.4. Sacral wound is pictured. Chest x-ray yesterday revealed right-sided central interstitial prominence. IMPRESSION: 1. Respiratory failure. 2. Sepsis. 3. Healthcare-acquired pneumonia. 4. Vgyzz-iu-qcbvtif diastolic congestive heart failure. 5. Anemia. 6. Gastrostomy tube site cellulitis. 7. Vajys-ko-ccrtnok renal failure. 8. Hypertensive heart disease. PLAN: 1. Antimicrobials. 2. Diuresis. 3. Titrate antihypertensive. 4. Weaning as able. 5. DVT prophylaxis. 6. Skin care. 7. Replace electrolytes as needed. Riki Francois M.D. DR: BRIONNA JOB#: [id number] CC:
[2016-11-24] MEDS: Doxycycline Hyclate 100 MG in D5W 110 ML IV SCH ×2 (06:14→18:00)
[2016-11-24] MEDS: HydrALAZINE 25mg tab GT SCH ×4 (06:14→23:51)
--- NOTE | 2016-11-24 07:54 | General Progress Note ---
Assessment/Plan Problem List: (1) Sepsis ICD Codes: A41.9 - Sepsis, unspecified organism SNOMED: 00845281 (2) Septic shock ICD Codes: A41.9 - Sepsis, unspecified organism; R65.21 - Severe sepsis with septic shock SNOMED: 21632189 (3) Renal failure ICD Codes: N19 - Unspecified kidney failure SNOMED: 91239906 Qualifiers: Qualified Codes: N17.9 - Acute kidney failure, unspecified (4) Respiratory distress ICD Codes: R06.00 - Dyspnea, unspecified SNOMED: 660147178 (5) Pneumonia ICD Codes: J18.9 - Pneumonia, unspecified organism SNOMED: 482173159 (6) UTI (urinary tract infection) ICD Codes: N39.0 - Urinary tract infection, site not specified SNOMED: 17697401 Status: stable, progressing, tolerating diet Assessment/Plan vent abx cbc bmp am, wean vent if possible, ltach transfer Subjective Constitutional: Reports: weakness Allergies: Coded Allergies: No Known Allergies (Verified , 01/02/09) All Systems: reviewed and negative except above Subjective intubated sedated in icu Objective Last 24 Hour Vital Signs Date Time Temp Pulse Resp B/P Pulse Ox O2 Delivery O2 Flow Rate FiO2 11/24/16 07:00 66 18 148/85 100 Mechanical Ventilator 40 11/24/16 06:37 69 20 40 11/24/16 06:14 167/90 11/24/16 06:00 68 18 167/90 100 Mechanical Ventilator 40 11/24/16 05:14 70 19 40 11/24/16 05:00 67 18 167/84 100 Mechanical Ventilator 40 11/24/16 04:00 40 11/24/16 04:00 70 11/24/16 04:00 98.3 69 18 144/93 100 Mechanical Ventilator 40 11/24/16 03:04 69 20 40 11/24/16 03:00 68 18 136/77 100 Mechanical Ventilator 40 11/24/16 02:00 68 18 138/77 100 Mechanical Ventilator 40 11/24/16 01:10 70 23 40 11/24/16 01:00 69 18 132/76 100 Mechanical Ventilator 40 11/24/16 00:00 98.6 70 18 153/74 100 Mechanical Ventilator 40 11/24/16 00:00 68 7/9/17 00:00 40 7/8 23:45 130/72 7/8/17 23:15 68 18 40 7/8/17 23:00 68 18 130/72 100 Mechanical Ventilator 40 7/817 22:00 72 19 168/84 100 Mechanical Ventilator 40 7/8/17 21:11 67 21 40 7/8/17 21:00 71 20 152/80 100 Mechanical Ventilator 40 7/8/17 20:00 75 8 20:00 98.3 70 18 150/87 98 Mechanical Ventilator 40 7/8 20:00 40 7/8/17 19:07 71 21 40 7/8/17 19:00 68 19 141/82 98 Mechanical Ventilator 40 8 18:00 71 20 140/77 98 Mechanical Ventilator 40 11/23/16 17:32 166/89 11/23/16 17:24 72 18 40 7/8 17:00 69 20 149/79 98 Mechanical Ventilator 40 11/23/16 16:00 70 11/23/16 16:00 98.1 69 20 126/78 98 Mechanical Ventilator 40 8 16:00 40 8 15:10 73 18 40 7/8/ 15:00 74 20 151/81 100 Mechanical Ventilator 40 11/23/16 14:00 72 19 136/82 100 Mechanical Ventilator 40 11/23/16 13:00 74 19 136/82 100 Mechanical Ventilator 40 11/23/16 12:41 74 18 40 /8 12:00 40 11/23/16 12:00 98.2 72 20 136/73 100 Mechanical Ventilator 40 8 12:00 71 11/23/16 11:35 141/78 11/23/16 11:00 74 19 141/78 100 Mechanical Ventilator 40 8 10:36 73 19 40 7/8/17 10:00 73 19 134/84 100 Mechanical Ventilator 40 8 09:00 71 18 143/74 100 Mechanical Ventilator 40 8 08:40 40 7/8/17 08:38 99 8 08:36 70 18 40 7/8/17 08:06 67 143/79 11/23/16 08:00 67 11/23/16 08:00 99.0 68 18 143/79 98 Mechanical Ventilator 40 11/23/16 08:00 40 Intake and Output 11/23/16 11/24/16 19:00 07:00 Intake Total 907.5 ml 795.0 ml Output Total 740 ml 1360 ml Balance 167.5 ml -565.0 ml Intake Free Water 60 ml IV Total 247.5 ml 165.0 ml Tube Feeding 480 ml 480 ml Other 180 ml 90 ml Output Urine Total 740 ml 1310 ml Stool Total 50 ml # Bowel Movements 8 Laboratory Tests 11/24/16 03:30: White Blood Count 10.7, Red Blood Count 4.03L, Hemoglobin 9.9L, Hematocrit 32.8L , Mean Corpuscular Volume 81, Mean Corpuscular Hemoglobin 24.6L, Mean Corpuscular Hemoglobin Concent 30.2L, Red Cell Distribution Width 17.6H, Platelet Count 322, Mean Platelet Volume 6.6, Neutrophils (%) (Auto) 63.2, Lymphocytes (%) (Auto) 25.5, Monocytes (%) (Auto) 6.9, Eosinophils (%) (Auto) 4.0H, Basophils (%) (Auto) 0.4, Sodium Level 140, Potassium Level 4.0, Chloride Level 97L, Carbon Dioxide Level 30, Anion Gap 13, Blood Urea Nitrogen 25H, Creatinine 1.4H, Estimat Glomerular Filtration Rate , Glucose Level 98, Calcium Level 9.5, Pro-B-Type Natriuretic Peptide 2013H Height (Feet): 6 Height (Inches): 1.00 Weight (Pounds): 173 General Appearance: lethargic EENT: normal ENT inspection Neck: normal alignment Cardiovascular: normal peripheral pulses, normal rate, regular rhythm Respiratory/Chest: chest wall non-tender, lungs clear, normal breath sounds Abdomen: normal bowel sounds, non tender, soft Extremities: normal inspection Edema: no edema noted Arm (L), no edema noted Arm (R), no edema noted Leg (L), no edema noted Leg (R), no edema noted Pedal (L), no edema noted Pedal (R), no edema noted Generalized Neurologic: motor weakness Skin: normal pigmentation, warm/dry CASS YANES Nov 24, 2016 07:54
--- NOTE | 2016-11-24 09:07 | General Progress Note ---
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 SNOMED: 832636703, 820197808 (2) G-tube site cellulitis ICD Codes: K94.22 - Gastrostomy infection; L03.319 - Cellulitis of trunk, unspecified SNOMED: 953049690, 160258856 (3) Anemia ICD Codes: D64.9 - Anemia, unspecified SNOMED: 703442723 (4) Respiratory distress ICD Codes: R06.00 - Dyspnea, unspecified SNOMED: 367481128 (5) Renal failure ICD Codes: N19 - Unspecified kidney failure SNOMED: 31547462 Qualifiers: Qualified Codes: N17.9 - Acute kidney failure, unspecified Assessment/Plan GTF monitor H&H icu care ppi fu Subjective ROS Limited/Unobtainable: No Allergies: Coded Allergies: No Known Allergies (Verified , 01/02/09) Objective Last 24 Hour Vital Signs Date Time Temp Pulse Resp B/P Pulse Ox O2 Delivery O2 Flow Rate FiO2 11/24/16 07:00 66 18 148/85 100 Mechanical Ventilator 40 11/24/16 06:37 69 20 40 11/24/16 06:14 167/90 11/24/16 06:00 68 18 167/90 100 Mechanical Ventilator 40 11/24/16 05:14 70 19 40 11/24/16 05:00 67 18 167/84 100 Mechanical Ventilator 40 11/24/16 04:00 40 11/24/16 04:00 70 11/24/16 04:00 98.3 69 18 144/93 100 Mechanical Ventilator 40 11/24/16 03:04 69 20 40 11/24/16 03:00 68 18 136/77 100 Mechanical Ventilator 40 11/24/16 02:00 68 18 138/77 100 Mechanical Ventilator 40 11/24/16 01:10 70 23 40 11/24/16 01:00 69 18 132/76 100 Mechanical Ventilator 40 11/24/16 00:00 98.6 70 18 153/74 100 Mechanical Ventilator 40 11/24/16 00:00 68 11/24/16 00:00 40 11/23/16 23:45 130/72 11/23/16 23:15 68 18 40 11/23/16 23:00 68 18 130/72 100 Mechanical Ventilator 40 11/23/16 22:00 72 19 168/84 100 Mechanical Ventilator 40 11/23/16 21:11 67 21 40 11/23/16 21:00 71 20 152/80 100 Mechanical Ventilator 40 11/23/16 20:00 75 11/23/16 20:00 98.3 70 18 150/87 98 Mechanical Ventilator 40 11/23/16 20:00 40 11/23/16 19:07 71 21 40 11/23/16 19:00 68 19 141/82 98 Mechanical Ventilator 40 11/23/16 18:00 71 20 140/77 98 Mechanical Ventilator 40 11/23/16 17:32 166/89 11/23/16 17:24 72 18 40 11/23/16 17:00 69 20 149/79 98 Mechanical Ventilator 40 11/23/16 16:00 70 11/23/16 16:00 98.1 69 20 126/78 98 Mechanical Ventilator 40 11/23/16 16:00 40 11/23/16 15:10 73 18 40 11/23/16 15:00 74 20 151/81 100 Mechanical Ventilator 40 11/23/16 14:00 72 19 136/82 100 Mechanical Ventilator 40 11/23/16 13:00 74 19 136/82 100 Mechanical Ventilator 40 11/23/16 12:41 74 18 40 11/23/16 12:00 40 11/23/16 12:00 98.2 72 20 136/73 100 Mechanical Ventilator 40 11/23/16 12:00 71 11/23/16 11:35 141/78 11/23/16 11:00 74 19 141/78 100 Mechanical Ventilator 40 11/23/16 10:36 73 19 40 11/23/16 10:00 73 19 134/84 100 Mechanical Ventilator 40 Intake and Output 11/23/16 11/24/16 19:00 07:00 Intake Total 907.5 ml 795.0 ml Output Total 740 ml 1360 ml Balance 167.5 ml -565.0 ml Intake Free Water 60 ml IV Total 247.5 ml 165.0 ml Tube Feeding 480 ml 480 ml Other 180 ml 90 ml Output Urine Total 740 ml 1310 ml Stool Total 50 ml # Bowel Movements 8 Laboratory Tests 11/24/16 03:30: White Blood Count 10.7, Red Blood Count 4.03L, Hemoglobin 9.9L, Hematocrit 32.8L , Mean Corpuscular Volume 81, Mean Corpuscular Hemoglobin 24.6L, Mean Corpuscular Hemoglobin Concent 30.2L, Red Cell Distribution Width 17.6H, Platelet Count 322, Mean Platelet Volume 6.6, Neutrophils (%) (Auto) 63.2, Lymphocytes (%) (Auto) 25.5, Monocytes (%) (Auto) 6.9, Eosinophils (%) (Auto) 4.0H, Basophils (%) (Auto) 0.4, Sodium Level 140, Potassium Level 4.0, Chloride Level 97L, Carbon Dioxide Level 30, Anion Gap 13, Blood Urea Nitrogen 25H, Creatinine 1.4H, Estimat Glomerular Filtration Rate , Glucose Level 98, Calcium Level 9.5, Pro-B-Type Natriuretic Peptide 2013H Height (Feet): 6 Height (Inches): 1.00 Weight (Pounds): 173 General Appearance: no apparent distress EENT: normal ENT inspection Neck: supple Cardiovascular: normal rate Respiratory/Chest: decreased breath sounds Abdomen: normal bowel sounds, non tender, soft Extremities: non-tender MELISSA SOLOMON Nov 24, 2016 09:07
[2016-11-24] MEDS: Vitamin A&D Oint 2oz Tube TOPIC SCH ×2 (09:36→20:37)
[2016-11-24] MEDS: Heparin 5000 units/ml inj SUBQ SCH ×2 (09:38→20:38)
--- NOTE | 2016-11-24 10:43 | Infectious Diseases Prog Note ---
Assessment/Plan Problems: (1) HCAP (healthcare-associated pneumonia) Assessment & Plan: present on admission, with MRSA , on doxycycline to finish his course of treatment for 14 days total, EOT 11/28/16 (2) Septic shock Assessment & Plan: with proteus mirabilis ESBL + , suspect source is UTI , complicated with respiratory failure, on zosyn , repeated blood culture to confirm clearance is negative , will treat with zosyn for 14 days . EOT (3) Respiratory distress Assessment & Plan: due to the above, S/P intubation, continue mechanical ventilation, monitor ABG, titrate oxygen as needed (4) UTI (urinary tract infection) Assessment & Plan: with proteus mirabilis and Providencia stuartii , most likely the source of his sepsis, on zosyn for 14 days (5) Renal failure Assessment & Plan: improving, continue hydration, avoid nephrotoxic meds (6) Hydronephrosis of left kidney Assessment & Plan: with hematuria, most likely due to urethral tear , had urology eval , and no intervention needed for now Subjective ROS Limited/Unobtainable: Yes Allergies: Coded Allergies: No Known Allergies (Verified , 01/02/09) Subjective he is still intubated on mechanical ventilation, awake, and alert, off sedation , not in distress, off pressors, afebrile Objective Vital Signs Last 24 Hour Vital Signs Date Time Temp Pulse Resp B/P Pulse Ox O2 Delivery O2 Flow Rate FiO2 11/24/16 10:33 73 18 40 11/24/16 09:36 68 158/83 11/24/16 09:03 66 18 40 11/24/16 07:00 66 18 148/85 100 Mechanical Ventilator 40 11/24/16 06:37 69 20 40 11/24/16 06:14 167/90 11/24/16 06:00 68 18 167/90 100 Mechanical Ventilator 40 11/24/16 05:14 70 19 40 11/24/16 05:00 67 18 167/84 100 Mechanical Ventilator 40 11/24/16 04:00 40 11/24/16 04:00 70 11/24/16 04:00 98.3 69 18 144/93 100 Mechanical Ventilator 40 11/24/16 03:04 69 20 40 11/24/16 03:00 68 18 136/77 100 Mechanical Ventilator 40 11/24/16 02:00 68 18 138/77 100 Mechanical Ventilator 40 11/24/16 01:10 70 23 40 11/24/16 01:00 69 18 132/76 100 Mechanical Ventilator 40 11/24/16 00:00 98.6 70 18 153/74 100 Mechanical Ventilator 40 11/24/16 00:00 68 11/24/16 00:00 40 11/23/16 23:45 130/72 11/23/16 23:15 68 18 40 11/23/16 23:00 68 18 130/72 100 Mechanical Ventilator 40 11/23/16 22:00 72 19 168/84 100 Mechanical Ventilator 40 11/23/16 21:11 67 21 40 11/23/16 21:00 71 20 152/80 100 Mechanical Ventilator 40 11/23/16 20:00 75 11/23/16 20:00 98.3 70 18 150/87 98 Mechanical Ventilator 40 11/23/16 20:00 40 11/23/16 19:07 71 21 40 11/23/16 19:00 68 19 141/82 98 Mechanical Ventilator 40 11/23/16 18:00 71 20 140/77 98 Mechanical Ventilator 40 11/23/16 17:32 166/89 11/23/16 17:24 72 18 40 11/23/16 17:00 69 20 149/79 98 Mechanical Ventilator 40 11/23/16 16:00 70 11/23/16 16:00 98.1 69 20 126/78 98 Mechanical Ventilator 40 11/23/16 16:00 40 11/23/16 15:10 73 18 40 11/23/16 15:00 74 20 151/81 100 Mechanical Ventilator 40 11/23/16 14:00 72 19 136/82 100 Mechanical Ventilator 40 11/23/16 13:00 74 19 136/82 100 Mechanical Ventilator 40 11/23/16 12:41 74 18 40 11/23/16 12:00 40 11/23/16 12:00 98.2 72 20 136/73 100 Mechanical Ventilator 40 11/23/16 12:00 71 11/23/16 11:35 141/78 11/23/16 11:00 74 19 141/78 100 Mechanical Ventilator 40 Height (Feet): 6 Height (Inches): 1.00 Weight (Pounds): 173 General Appearance: WD/WN, no acute distress HEENT: normocephalic, atraumatic, anicteric, mucous membranes moist Respiratory/Chest: chest wall non-tender, normal breath sounds, no respiratory distress, no accessory muscle use, decreased breath sounds, crackles/rales Cardiovascular: normal peripheral pulses, normal rate, regular rhythm, no gallop/murmur, no JVD Abdomen: normal bowel sounds, soft, non tender, no organomegaly, non distended , no mass Extremities: no cyanosis, no clubbing Skin: no rash, no lesions, ulcers Lymphatic: no neck adenopathy, no groin adenopathy Laboratory Tests Test 11/24/16 03:30 White Blood Count 10.7 K/UL (4.8-10.8) Red Blood Count 4.03 M/UL (4.70-6.10) L Hemoglobin 9.9 G/DL (14.2-18.0) L Hematocrit 32.8 % (42.0-52.0) L Mean Corpuscular Volume 81 FL (80-99) Mean Corpuscular Hemoglobin 24.6 PG (27.0-31.0) L Mean Corpuscular Hemoglobin Concent 30.2 G/DL (32.0-36.0) L Red Cell Distribution Width 17.6 % (11.6-14.8) H Platelet Count 322 K/UL (150-450) Mean Platelet Volume 6.6 FL (6.5-10.1) Neutrophils (%) (Auto) 63.2 % (45.0-75.0) Lymphocytes (%) (Auto) 25.5 % (20.0-45.0) Monocytes (%) (Auto) 6.9 % (1.0-10.0) Eosinophils (%) (Auto) 4.0 % (0.0-3.0) H Basophils (%) (Auto) 0.4 % (0.0-2.0) Sodium Level 140 mEQ/L (135-145) Potassium Level 4.0 mEQ/L (3.4-4.9) Chloride Level 97 mEQ/L (98-107) L Carbon Dioxide Level 30 mEQ/L (20-30) Anion Gap 13 (5-15) Blood Urea Nitrogen 25 mg/dL (7-23) H Creatinine 1.4 mg/dL (0.7-1.2) H Estimat Glomerular Filtration Rate mL/min (>60) Glucose Level 98 mg/dL (74-106) Calcium Level 9.5 mg/dL (8.6-10.2) Pro-B-Type Natriuretic Peptide 2013 pg/mL (0-450) H Current Medications Medications (Trade) Dose Ordered Sig/Keira Route PRN Reason Start Time Stop Time Status Last Admin Dose Admin Acetaminophen (Tylenol) 650 mg Q4H PRN ORAL fever 11/14/16 18:00 12/14/16 17:59 11/17/16 21:35 Amlodipine Besylate (Norvasc) 10 mg DAILY GT 11/18/16 11:00 12/18/16 10:59 11/24/16 09:36 Chlorhexidine Gluconate (Michelle-Hex 2%) 1 applic QHS TOPIC 11/15/16 21:00 12/15/16 20:59 11/23/16 20:32 Doxycycline Hyclate/Dextrose (Vibramycin/D5W) 110 ml @ 110 mls/hr Q12HR@0600,1800 IV 11/20/16 18:00 11/28/16 18:01 11/24/16 06:14 Heparin Sodium (Porcine) (Heparin 5000 units/ml) 5,000 units EVERY 12 HOURS SUBQ 11/15/16 21:00 12/15/16 20:59 11/24/16 09:38 Hydralazine HCl (Apresoline) 10 mg Q4H PRN IV SBP > 150 11/18/16 12:15 12/18/16 12:14 11/22/16 13:23 Hydralazine HCl 25 mg 25 mg Q6HR GT 11/20/16 10:28 12/19/16 05:59 11/24/16 06:14 Hydromorphone HCl (Dilaudid) 0.5 mg Q4H PRN IVP Severe Pain (Pain Scale 7-10) 11/21/16 10:30 11/28/16 10:29 Lansoprazole (Prevacid) 30 mg DAILY GT 11/19/16 09:00 12/19/16 08:59 11/24/16 09:36 Ondansetron HCl (Zofran) 4 mg Q6H PRN IVP Nausea & Vomiting 11/14/16 20:00 12/14/16 19:59 Piperacillin Sod/ Tazobactam Sod/ Dextrose (Zosyn/D5W) 110 ml @ 27.5 mls/hr Q8H IVPB 11/17/16 12:00 12/04/16 23:00 11/24/16 03:53 Polyethylene Glycol 17 gm 17 gm DAILYPRN PRN GT Constipation 11/17/16 10:41 12/15/16 13:59 11/21/16 03:06 Vitamin A/Vitamin D (A & D Oint) 1 applic EVERY 12 HOURS TOPIC 11/15/16 21:00 12/15/16 20:59 11/24/16 09:36 Julianna Trejo M.D. Nov 24, 2016 10:43
--- NOTE | 2016-11-24 11:01 | Pulmonolgy Critical Care Note ---
Critical Care - Asmt/Plan Problems: (1) Septic shock (2) Respiratory distress (3) Acute encephalopathy (4) Renal failure (5) Decubital ulcer Assessment/Plan: no tolerating weaning Respiratory: monitor respiratory rate, adjust FIO2, CXR Cardiac: continue pressors, continue to monitor HR/BP Renal: F/U I&O, keep IV fluid Infectious Disease: check cultures, continue antibiotics Gastrointestinal: continue feedings/current rate Endocrine: monitor blood sugar, continue sliding scale insulin Hematologic: monitor H/H, transfuse if hgb<8.5 Neurologic: PRN Ativan, PRN Morphine, keep patient comfortable Prophylaxis: Protonix, Heparin Disposition: keep in ICU Time Spent (Minutes): 30 Notes Reviewed: haulage engine operator Discussed with: nurses, consultants, 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 cleanerassociate 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 manager - Objective Last 24 Hour Vital Signs Date Time Temp Pulse Resp B/P Pulse Ox O2 Delivery O2 Flow Rate FiO2 11/24/16 10:33 73 18 40 11/24/16 09:36 68 158/83 11/24/16 09:03 66 18 40 11/24/16 07:00 66 18 148/85 100 Mechanical Ventilator 40 11/24/16 06:37 69 20 40 11/24/16 06:14 167/90 11/24/16 06:00 68 18 167/90 100 Mechanical Ventilator 40 11/24/16 05:14 70 19 40 11/24/16 05:00 67 18 167/84 100 Mechanical Ventilator 40 11/24/16 04:00 40 11/24/16 04:00 70 11/24/16 04:00 98.3 69 18 144/93 100 Mechanical Ventilator 40 11/24/16 03:04 69 20 40 11/24/16 03:00 68 18 136/77 100 Mechanical Ventilator 40 11/24/16 02:00 68 18 138/77 100 Mechanical Ventilator 40 11/24/16 01:10 70 23 40 11/24/16 01:00 69 18 132/76 100 Mechanical Ventilator 40 11/24/16 00:00 98.6 70 18 153/74 100 Mechanical Ventilator 40 11/24/16 00:00 68 11/24/16 00:00 40 11/23/16 23:45 130/72 11/23/16 23:15 68 18 40 11/23/16 23:00 68 18 130/72 100 Mechanical Ventilator 40 11/23/16 22:00 72 19 168/84 100 Mechanical Ventilator 40 11/23/16 21:11 67 21 40 11/23/16 21:00 71 20 152/80 100 Mechanical Ventilator 40 11/23/16 20:00 75 11/23/16 20:00 98.3 70 18 150/87 98 Mechanical Ventilator 40 11/23/16 20:00 40 11/23/16 19:07 71 21 40 11/23/16 19:00 68 19 141/82 98 Mechanical Ventilator 40 11/23/16 18:00 71 20 140/77 98 Mechanical Ventilator 40 11/23/16 17:32 166/89 11/23/16 17:24 72 18 40 11/23/16 17:00 69 20 149/79 98 Mechanical Ventilator 40 11/23/16 16:00 70 11/23/16 16:00 98.1 69 20 126/78 98 Mechanical Ventilator 40 11/23/16 16:00 40 11/23/16 15:10 73 18 40 11/23/16 15:00 74 20 151/81 100 Mechanical Ventilator 40 11/23/16 14:00 72 19 136/82 100 Mechanical Ventilator 40 11/23/16 13:00 74 19 136/82 100 Mechanical Ventilator 40 11/23/16 12:41 74 18 40 11/23/16 12:00 40 11/23/16 12:00 98.2 72 20 136/73 100 Mechanical Ventilator 40 11/23/16 12:00 71 11/23/16 11:35 141/78 Status: awake Condition: critical HEENT: atraumatic Neck: full ROM Lungs: clear Heart: HR/BP stable Abdomen: soft, non-tender Extremities: edema Decubiti: location Critical Care - Subjective ROS Limited/Unobtainable: No ICU Day: 10 Intubation Day: 10 Condition: critical EKG Rhythm: Sinus Rhythm FI02: 40 Vent Support Breath Rate: 18 Vent Support Mode: AC Vent Tidal Volume: 500 Sputum Amount: Scant PEEP: 5.0 PIP: 19 Tube Feeding Amount: 40 I&O: Intake and Output 11/23/16 11/24/16 19:00 07:00 Intake Total 907.5 ml 795.0 ml Output Total 740 ml 1360 ml Balance 167.5 ml -565.0 ml Intake Free Water 60 ml IV Total 247.5 ml 165.0 ml Tube Feeding 480 ml 480 ml Other 180 ml 90 ml Output Urine Total 740 ml 1310 ml Stool Total 50 ml # Bowel Movements 8 CXR: no change ET-Tube: 8.0 ET Position: 24 Labs: Laboratory Tests Test 11/24/16 03:30 White Blood Count 10.7 K/UL (4.8-10.8) Red Blood Count 4.03 M/UL (4.70-6.10) L Hemoglobin 9.9 G/DL (14.2-18.0) L Hematocrit 32.8 % (42.0-52.0) L Mean Corpuscular Volume 81 FL (80-99) Mean Corpuscular Hemoglobin 24.6 PG (27.0-31.0) L Mean Corpuscular Hemoglobin Concent 30.2 G/DL (32.0-36.0) L Red Cell Distribution Width 17.6 % (11.6-14.8) H Platelet Count 322 K/UL (150-450) Mean Platelet Volume 6.6 FL (6.5-10.1) Neutrophils (%) (Auto) 63.2 % (45.0-75.0) Lymphocytes (%) (Auto) 25.5 % (20.0-45.0) Monocytes (%) (Auto) 6.9 % (1.0-10.0) Eosinophils (%) (Auto) 4.0 % (0.0-3.0) H Basophils (%) (Auto) 0.4 % (0.0-2.0) Sodium Level 140 mEQ/L (135-145) Potassium Level 4.0 mEQ/L (3.4-4.9) Chloride Level 97 mEQ/L (98-107) L Carbon Dioxide Level 30 mEQ/L (20-30) Anion Gap 13 (5-15) Blood Urea Nitrogen 25 mg/dL (7-23) H Creatinine 1.4 mg/dL (0.7-1.2) H Estimat Glomerular Filtration Rate mL/min (>60) Glucose Level 98 mg/dL (74-106) Calcium Level 9.5 mg/dL (8.6-10.2) Pro-B-Type Natriuretic Peptide 2013 pg/mL (0-450) H MARY CABELLO Nov 24, 2016 11:01
--- NOTE | 2016-11-24 12:17 | General Progress Note ---
Assessment/Plan Assessment/Plan (1) Respiratory distress (2) Incubated on Ventilator (3) Septic Shock (4) Sacral decubitus ulcer Pt will be continued on Dilaudid. D/w Dr. Rodríguez and he concurred. Subjective Date patient seen: Nov 24, 2016 Time patient seen: 12:15 - pm ROS Limited/Unobtainable: Yes Allergies: Coded Allergies: No Known Allergies (Verified , 01/02/09) Subjective Patient is still intubated on ventilator continues to have failed weaning and tracheotomy is being considered by service unit operator and final assembly worker. As per nurse there has been no signs of pain. Objective Last 24 Hour Vital Signs Date Time Temp Pulse Resp B/P Pulse Ox O2 Delivery O2 Flow Rate FiO2 11/24/16 12:00 70 11/24/16 12:00 40 11/24/16 12:00 97.8 68 21 147/95 100 Mechanical Ventilator 40 11/24/16 11:00 67 20 153/82 100 Mechanical Ventilator 40 11/24/16 10:33 73 18 40 11/24/16 10:00 69 21 137/80 100 Mechanical Ventilator 40 11/24/16 09:36 68 158/83 11/24/16 09:03 66 18 40 11/24/16 09:00 66 19 149/76 100 Mechanical Ventilator 40 11/24/16 08:00 98.0 68 18 144/78 100 Mechanical Ventilator 40 11/24/16 08:00 70 11/24/16 08:00 40 11/24/16 07:00 66 18 148/85 100 Mechanical Ventilator 40 11/24/16 06:37 69 20 40 11/24/16 06:14 167/90 11/24/16 06:00 68 18 167/90 100 Mechanical Ventilator 40 11/24/16 05:14 70 19 40 11/24/16 05:00 67 18 167/84 100 Mechanical Ventilator 40 11/24/16 04:00 40 11/24/16 04:00 70 11/24/16 04:00 98.3 69 18 144/93 100 Mechanical Ventilator 40 11/24/16 03:04 69 20 40 11/24/16 03:00 68 18 136/77 100 Mechanical Ventilator 40 11/24/16 02:00 68 18 138/77 100 Mechanical Ventilator 40 11/24/16 01:10 70 23 40 11/24/16 01:00 69 18 132/76 100 Mechanical Ventilator 40 11/24/16 00:00 98.6 70 18 153/74 100 Mechanical Ventilator 40 11/24/16 00:00 68 11/24/16 00:00 40 11/23/16 23:45 130/72 11/23/16 23:15 68 18 40 11/23/16 23:00 68 18 130/72 100 Mechanical Ventilator 40 11/23/16 22:00 72 19 168/84 100 Mechanical Ventilator 40 11/23/16 21:11 67 21 40 11/23/16 21:00 71 20 152/80 100 Mechanical Ventilator 40 11/23/16 20:00 75 11/23/16 20:00 98.3 70 18 150/87 98 Mechanical Ventilator 40 11/23/16 20:00 40 11/23/16 19:07 71 21 40 11/23/16 19:00 68 19 141/82 98 Mechanical Ventilator 40 11/23/16 18:00 71 20 140/77 98 Mechanical Ventilator 40 11/23/16 17:32 166/89 11/23/16 17:24 72 18 40 11/23/16 17:00 69 20 149/79 98 Mechanical Ventilator 40 11/23/16 16:00 70 11/23/16 16:00 98.1 69 20 126/78 98 Mechanical Ventilator 40 11/23/16 16:00 40 11/23/16 15:10 73 18 40 11/23/16 15:00 74 20 151/81 100 Mechanical Ventilator 40 11/23/16 14:00 72 19 136/82 100 Mechanical Ventilator 40 11/23/16 13:00 74 19 136/82 100 Mechanical Ventilator 40 11/23/16 12:41 74 18 40 Intake and Output 11/23/16 11/24/16 19:00 07:00 Intake Total 907.5 ml 795.0 ml Output Total 740 ml 1360 ml Balance 167.5 ml -565.0 ml Intake Free Water 60 ml IV Total 247.5 ml 165.0 ml Tube Feeding 480 ml 480 ml Other 180 ml 90 ml Output Urine Total 740 ml 1310 ml Stool Total 50 ml # Bowel Movements 8 Laboratory Tests 11/24/16 03:30: White Blood Count 10.7, Red Blood Count 4.03L, Hemoglobin 9.9L, Hematocrit 32.8L , Mean Corpuscular Volume 81, Mean Corpuscular Hemoglobin 24.6L, Mean Corpuscular Hemoglobin Concent 30.2L, Red Cell Distribution Width 17.6H, Platelet Count 322, Mean Platelet Volume 6.6, Neutrophils (%) (Auto) 63.2, Lymphocytes (%) (Auto) 25.5, Monocytes (%) (Auto) 6.9, Eosinophils (%) (Auto) 4.0H, Basophils (%) (Auto) 0.4, Sodium Level 140, Potassium Level 4.0, Chloride Level 97L, Carbon Dioxide Level 30, Anion Gap 13, Blood Urea Nitrogen 25H, Creatinine 1.4H, Estimat Glomerular Filtration Rate , Glucose Level 98, Calcium Level 9.5, Pro-B-Type Natriuretic Peptide 2013H Height (Feet): 6 Height (Inches): 1.00 Weight (Pounds): 173 Objective General Appearance: other - Intubated and unresponsive EENT: other - ETT in place Cardiovascular: normal rate, regular rhythm Respiratory/Chest: chest wall non-tender, rhonchi - bilaterally, other - On vent Abdomen: non tender, soft Edema: no edema noted Arm (L), no edema noted Arm (R), no edema noted Leg (L), no edema noted Leg (R), no edema noted Pedal (L), no edema noted Pedal (R) Neurologic: unresponsive AMMY LEMOS Nov 24, 2016 12:17
[2016-11-24] MEDS: Dyna-Hex 2% Top Sol 8oz TOPIC SCH (20:37)
[2016-11-25] VITALS (24 sets, daily range): BP systolic 115–190; BP diastolic 69–98
[2016-11-25] MEDS: Hydromorphone 0.5mg/0.5ml inj IVP PRN ×2 (01:09→19:48)
--- NOTE | 2016-11-25 03:45 | Progress Note ---
DATE: 11/24/2016 CARDIOLOGY PROGRESS NOTE SUBJECTIVE: The patient remains in the intensive care unit on ventilator support. Not tolerating weaning efforts. He remains critical with guarded prognosis. The patient was given diuretic therapy last evening responding well with good diuresis. OBJECTIVE: VITAL SIGNS: Blood pressure 158/83, pulse 68, respiratory 18. No fevers. Monitored rhythm sinus with atrial ectopy. LUNG: Coarse breath sounds. Scattered rhonchi. HEART: Regular rhythm and rate. Normal S1 and S2. ABDOMEN: Soft. EXTREMITIES: Dependent edema is noted. LABORATORY DATA: White count 10.7, hemoglobin 9.9. Brain natriuretic peptide is 2000. Sodium 140, potassium 4, bicarbonate 30, BUN 25, and creatinine 1.4. IMPRESSION: 1. Recovered shock due to sepsis. 2. Respiratory failure due to healthcare-acquired pneumonia. 3. Acute on chronic diastolic congestive heart failure, improved. 4. Acute on chronic kidney disease with the urethral tear and improving with hydration likely due to acute tubular necrosis. 5. Hypertensive heart disease with rising blood pressure trend. PLAN: 1. Ventilator support with weaning effort. Titrate antihypertensives but avoid diet control and orthostatic risk. 2. Cautious diuresis based on clinical parameters volume status. 3. Monitor and replace electrolytes as needed. 4. Intensive care unit care. Riki Francois M.D. DR: CHRISTIAN JOB#: [id number] CC:
[2016-11-25] MEDS: Piperacillin/Tazobactam 3.375 GM in D5W 110 ML IVPB SCH ×3 (04:17→19:40)
[2016-11-25 04:48] LABS: BASOPHILS % (AUTO) 0.6 % (0.0-2.0); EOSINOPHILS % (AUTO) 5.8 % (0.0-3.0); LYMPHOCYTES % (AUTO) 28.2 % (20.0-45.0); MEAN CORPUSCULAR HEMOGLOBIN 24.7 PG (27.0-31.0); MEAN CORPUSCULAR HGB CONC 30.5 G/DL (32.0-36.0); MEAN CORPUSCULAR VOLUME 81 FL (80-99); MEAN PLATELET VOLUME 6.6 FL (6.5-10.1); NEUTROPHILS % (AUTO) 58.3 % (45.0-75.0); PLATELET COUNT 370 K/UL (150-450); RED BLOOD COUNT 4.37 M/UL (4.70-6.10); RED CELL DISTRIBUTION WIDTH 17.4 % (11.6-14.8); WHITE BLOOD COUNT 11.5 K/UL (4.8-10.8)
[2016-11-25 05:13] LABS: MAGNESIUM 1.7 mg/dL (1.7-2.5); PHOSPHORUS 3.4 mg/dL (2.5-4.8)
[2016-11-25 05:17] LABS: ALANINE AMINOTRANSFERASE 20 U/L (3-41); ALBUMIN/GLOBULIN RATIO 0.4 (1.0-2.7); ANION GAP 14 (5-15); ASPARTATE AMINO TRANSFERASE 24 U/L (5-40); CALCIUM 9.9 mg/dL (8.6-10.2); CARBON DIOXIDE 29 mEQ/L (20-30); CHLORIDE 97 mEQ/L (98-107); CREATININE 1.2 mg/dL (0.7-1.2); HEMOLYSIS 0; POTASSIUM 3.6 mEQ/L (3.4-4.9); SODIUM 140 mEQ/L (135-145); TOTAL PROTEIN 8.2 g/dL (6.6-8.7)
[2016-11-25] MEDS: HydrALAZINE 25mg tab GT SCH ×3 (05:24→17:32)
[2016-11-25] MEDS: Doxycycline Hyclate 100 MG in D5W 110 ML IV SCH (05:24)
--- NOTE | 2016-11-25 08:32 | General Progress Note ---
Assessment/Plan Assessment/Plan (1) Respiratory distress (2) Incubated on Ventilator (3) Septic Shock (4) Sacral decubitus ulcer Pt will be continued on Dilaudid. D/w Dr. Rodríguez and he concurred. Subjective Date patient seen: Nov 25, 2016 Time patient seen: 07:45 - am ROS Limited/Unobtainable: Yes Allergies: Coded Allergies: No Known Allergies (Verified , 01/02/09) Subjective Patient is laying in bed still intubated on ventilator. He is in no signs of pain or distress at this time. Objective Last 24 Hour Vital Signs Date Time Temp Pulse Resp B/P Pulse Ox O2 Delivery O2 Flow Rate FiO2 11/25/16 08:00 40 11/25/16 08:00 71 11/25/16 08:00 97.9 69 20 147/88 100 Mechanical Ventilator 40 11/25/16 07:01 72 21 40 11/25/16 07:00 71 22 139/82 100 Mechanical Ventilator 40 11/25/16 06:00 72 22 156/88 100 Mechanical Ventilator 40 11/25/16 05:24 132/78 11/25/16 05:17 72 21 40 11/25/16 05:00 72 19 132/78 100 Mechanical Ventilator 40 11/25/16 04:00 98.3 75 20 155/83 100 Mechanical Ventilator 40 11/25/16 04:00 40 11/25/16 04:00 73 11/25/16 03:15 74 20 40 11/25/16 03:00 74 19 139/82 100 Mechanical Ventilator 40 11/25/16 02:16 190/98 11/25/16 02:00 72 19 190/98 100 Mechanical Ventilator 40 11/25/16 01:46 68 21 40 11/25/16 01:00 74 19 166/88 100 Mechanical Ventilator 40 11/25/16 00:00 98.1 72 20 165/87 100 Mechanical Ventilator 40 11/25/16 00:00 72 11/25/16 00:00 40 11/24/16 23:51 164/88 11/24/16 23:00 72 20 164/88 100 Mechanical Ventilator 40 11/24/16 22:51 72 20 40 11/24/16 22:00 70 23 149/77 100 Mechanical Ventilator 40 11/24/16 21:34 69 23 40 11/24/16 21:00 73 18 146/94 100 Mechanical Ventilator 40 11/24/16 20:01 75 25 40 11/24/16 20:00 98.3 69 19 163/84 100 Mechanical Ventilator 40 11/24/16 20:00 40 11/24/16 20:00 71 11/24/16 19:00 69 17 155/83 100 Mechanical Ventilator 40 11/24/16 18:00 70 17 157/82 100 Mechanical Ventilator 40 11/24/16 18:00 155/83 11/24/16 17:00 69 20 167/79 100 Mechanical Ventilator 40 11/24/16 17:00 71 22 40 11/24/16 16:00 98.2 69 20 138/78 100 Mechanical Ventilator 40 11/24/16 16:00 71 11/24/16 16:00 40 11/24/16 16:00 98.2 73 24 146/80 100 Mechanical Ventilator 40 11/24/16 15:00 70 18 169/76 100 Mechanical Ventilator 40 11/24/16 14:43 67 21 40 11/24/16 14:00 69 20 157/78 100 Mechanical Ventilator 40 11/24/16 13:00 69 20 139/71 100 Mechanical Ventilator 40 11/24/16 12:38 69 22 40 11/24/16 12:25 147/101 11/24/16 12:00 70 11/24/16 12:00 40 11/24/16 12:00 97.8 68 21 147/95 100 Mechanical Ventilator 40 11/24/16 11:00 67 20 153/82 100 Mechanical Ventilator 40 11/24/16 10:33 73 18 40 11/24/16 10:00 69 21 137/80 100 Mechanical Ventilator 40 11/24/16 09:36 68 158/83 11/24/16 09:03 66 18 40 11/24/16 09:00 66 19 149/76 100 Mechanical Ventilator 40 Intake and Output 11/24/16 11/25/16 19:00 07:00 Intake Total 811.25 ml 815.0 ml Output Total 880 ml 1245 ml Balance -68.75 ml -430.0 ml Intake Free Water 180 ml IV Total 151.25 ml 275.0 ml Tube Feeding 480 ml 480 ml Other 60 ml Output Urine Total 880 ml 1245 ml # Bowel Movements 2 33 Laboratory Tests 11/25/16 04:00: White Blood Count 11.5H, Red Blood Count 4.37L, Hemoglobin 10.8L, Hematocrit 35.4L, Mean Corpuscular Volume 81, Mean Corpuscular Hemoglobin 24.7L, Mean Corpuscular Hemoglobin Concent 30.5L, Red Cell Distribution Width 17.4H, Platelet Count 370, Mean Platelet Volume 6.6, Neutrophils (%) (Auto) 58.3, Lymphocytes (%) (Auto) 28.2, Monocytes (%) (Auto) 7.0, Eosinophils (%) (Auto) 5.8H, Basophils (%) (Auto) 0.6, Sodium Level 140, Potassium Level 3.6, Chloride Level 97L, Carbon Dioxide Level 29, Anion Gap 14, Blood Urea Nitrogen 24H, Creatinine 1.2, Estimat Glomerular Filtration Rate , Glucose Level 118H, Calcium Level 9.9, Phosphorus Level 3.4, Magnesium Level 1.7, Total Bilirubin 0.4, Aspartate Amino Transf (AST/SGOT) 24, Alanine Aminotransferase (ALT/SGPT) 20, Alkaline Phosphatase 93, Total Protein 8.2, Albumin 2.7L, Globulin 5.5, Albumin/Globulin Ratio 0.4L Height (Feet): 6 Height (Inches): 1.00 Weight (Pounds): 162 Objective General Appearance: other - Intubated and unresponsive EENT: other - ETT in place Cardiovascular: normal rate, regular rhythm Respiratory/Chest: chest wall non-tender, rhonchi - bilaterally, other - On vent Abdomen: non tender, soft Edema: no edema noted Arm (L), no edema noted Arm (R), no edema noted Leg (L), no edema noted Leg (R), no edema noted Pedal (L), no edema noted Pedal (R) Neurologic: unresponsive AMMY LEMOS Nov 25, 2016 08:32
[2016-11-25] MEDS: Vitamin A&D Oint 2oz Tube TOPIC SCH ×2 (09:10→21:23)
[2016-11-25] MEDS: Heparin 5000 units/ml inj SUBQ SCH ×2 (09:11→21:24)
[2016-11-25 09:32] LABS: ABG ALLEN TEST POSITIVE; ABG BASE EXCESS 7.9; ABG PCO2 45.9 mmHg (35.0-45.0)
--- NOTE | 2016-11-25 10:10 | Pulmonolgy Critical Care Note ---
Critical Care - Asmt/Plan Problems: (1) Septic shock (2) Respiratory distress (3) Acute encephalopathy (4) Renal failure (5) Decubital ulcer Assessment/Plan: no tolerating weaning Respiratory: monitor respiratory rate, adjust FIO2, CXR, weaning trial, other - if pt fails weaning, he will need tracheostomy or comfort care. 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 Discussed with: nurses, consultants Critical Care - Objective Last 24 Hour Vital Signs Date Time Temp Pulse Resp B/P Pulse Ox O2 Delivery O2 Flow Rate FiO2 11/25/16 09:10 73 150/78 11/25/16 08:42 75 20 40 11/25/16 08:00 40 11/25/16 08:00 71 11/25/16 08:00 97.9 69 20 147/88 100 Mechanical Ventilator 40 11/25/16 07:01 72 21 40 11/25/16 07:00 71 22 139/82 100 Mechanical Ventilator 40 11/25/16 06:00 72 22 156/88 100 Mechanical Ventilator 40 11/25/16 05:24 132/78 11/25/16 05:17 72 21 40 11/25/16 05:00 72 19 132/78 100 Mechanical Ventilator 40 11/25/16 04:00 98.3 75 20 155/83 100 Mechanical Ventilator 40 11/25/16 04:00 40 11/25/16 04:00 73 11/25/16 03:15 74 20 40 11/25/16 03:00 74 19 139/82 100 Mechanical Ventilator 40 11/25/16 02:16 190/98 11/25/16 02:00 72 19 190/98 100 Mechanical Ventilator 40 11/25/16 01:46 68 21 40 11/25/16 01:00 74 19 166/88 100 Mechanical Ventilator 40 11/25/16 00:00 98.1 72 20 165/87 100 Mechanical Ventilator 40 11/25/16 00:00 72 11/25/16 00:00 40 11/24/16 23:51 164/88 11/24/16 23:00 72 20 164/88 100 Mechanical Ventilator 40 11/24/16 22:51 72 20 40 11/24/16 22:00 70 23 149/77 100 Mechanical Ventilator 40 11/24/16 21:34 69 23 40 11/24/16 21:00 73 18 146/94 100 Mechanical Ventilator 40 11/24/16 20:01 75 25 40 11/24/16 20:00 98.3 69 19 163/84 100 Mechanical Ventilator 40 11/24/16 20:00 40 11/24/16 20:00 71 11/24/16 19:00 69 17 155/83 100 Mechanical Ventilator 40 11/24/16 18:00 70 17 157/82 100 Mechanical Ventilator 40 11/24/16 18:00 155/83 11/24/16 17:00 69 20 167/79 100 Mechanical Ventilator 40 11/24/16 17:00 71 22 40 11/24/16 16:00 98.2 69 20 138/78 100 Mechanical Ventilator 40 11/24/16 16:00 71 11/24/16 16:00 40 11/24/16 16:00 98.2 73 24 146/80 100 Mechanical Ventilator 40 11/24/16 15:00 70 18 169/76 100 Mechanical Ventilator 40 11/24/16 14:43 67 21 40 11/24/16 14:00 69 20 157/78 100 Mechanical Ventilator 40 11/24/16 13:00 69 20 139/71 100 Mechanical Ventilator 40 11/24/16 12:38 69 22 40 11/24/16 12:25 147/101 11/24/16 12:00 70 11/24/16 12:00 40 11/24/16 12:00 97.8 68 21 147/95 100 Mechanical Ventilator 40 11/24/16 11:00 67 20 153/82 100 Mechanical Ventilator 40 11/24/16 10:33 73 18 40 Status: awake Condition: critical Lungs: clear Heart: HR/BP stable, HR/BP unstable Abdomen: soft, non-tender, active bowel sounds, feeding tube Extremities: no C/C/E, edema Decubiti: location Critical Care - Subjective ROS Limited/Unobtainable: No ICU Day: 11 Intubation Day: 11 Interval Events: not able to wean so far, will try again Condition: critical FI02: 40 Vent Support Breath Rate: 18 Vent Support Mode: AC Vent Tidal Volume: 500 Sputum Amount: Moderate PEEP: 5.0 PIP: 25 Tube Feeding Amount: 40 I&O: Intake and Output 11/24/16 11/25/16 19:00 07:00 Intake Total 811.25 ml 815.0 ml Output Total 880 ml 1245 ml Balance -68.75 ml -430.0 ml Intake Free Water 180 ml IV Total 151.25 ml 275.0 ml Tube Feeding 480 ml 480 ml Other 60 ml Output Urine Total 880 ml 1245 ml # Bowel Movements 2 33 CXR: ET ing ood position, no changes ET-Tube: 8.0 ET Position: 24 Labs: Laboratory Tests Test 11/25/16 04:00 11/25/16 09:25 White Blood Count 11.5 K/UL (4.8-10.8) H Red Blood Count 4.37 M/UL (4.70-6.10) L Hemoglobin 10.8 G/DL (14.2-18.0) L Hematocrit 35.4 % (42.0-52.0) L Mean Corpuscular Volume 81 FL (80-99) Mean Corpuscular Hemoglobin 24.7 PG (27.0-31.0) L Mean Corpuscular Hemoglobin Concent 30.5 G/DL (32.0-36.0) L Red Cell Distribution Width 17.4 % (11.6-14.8) H Platelet Count 370 K/UL (150-450) Mean Platelet Volume 6.6 FL (6.5-10.1) Neutrophils (%) (Auto) 58.3 % (45.0-75.0) Lymphocytes (%) (Auto) 28.2 % (20.0-45.0) Monocytes (%) (Auto) 7.0 % (1.0-10.0) Eosinophils (%) (Auto) 5.8 % (0.0-3.0) H Basophils (%) (Auto) 0.6 % (0.0-2.0) Sodium Level 140 mEQ/L (135-145) Potassium Level 3.6 mEQ/L (3.4-4.9) Chloride Level 97 mEQ/L (98-107) L Carbon Dioxide Level 29 mEQ/L (20-30) Anion Gap 14 (5-15) Blood Urea Nitrogen 24 mg/dL (7-23) H Creatinine 1.2 mg/dL (0.7-1.2) Estimat Glomerular Filtration Rate mL/min (>60) Glucose Level 118 mg/dL (74-106) H Calcium Level 9.9 mg/dL (8.6-10.2) Phosphorus Level 3.4 mg/dL (2.5-4.8) Magnesium Level 1.7 mg/dL (1.7-2.5) Total Bilirubin 0.4 mg/dL (0.0-1.2) Aspartate Amino Transf (AST/SGOT) 24 U/L (5-40) Alanine Aminotransferase (ALT/SGPT) 20 U/L (3-41) Alkaline Phosphatase 93 U/L (40-129) Total Protein 8.2 g/dL (6.6-8.7) Albumin 2.7 g/dL (3.5-5.2) L Globulin 5.5 g/dL Albumin/Globulin Ratio 0.4 (1.0-2.7) L Arterial Blood pH 7.469 (7.350-7.450) Arterial Blood Partial Pressure CO2 45.9 mmHg (35.0-45.0) H Arterial Blood Partial Pressure O2 119.6 mmHg (75.0-100.0) H Arterial Blood HCO3 32.6 mmol/L (22.0-26.0) H Arterial Blood Oxygen Saturation 98.1 % (92.0-98.0) H Arterial Blood Base Excess 7.9 Librado Test Positive MARY CABELLO Nov 25, 2016 10:10
--- NOTE | 2016-11-25 13:29 | Diagnostic Imaging Report ---
Indication: DYSPNEA Technique: One view of the chest Comparison: 11/22/2016 Findings: There is slightly increased left basilar atelectasis. Right basilar atelectasis persists. Stable satisfactory positions of endotracheal tube, right arm PICC. Impression: Minimally increased left basilar atelectasis. 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
--- NOTE | 2016-11-25 13:54 | GI Progress Note ---
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 Taveras Assessment/Plan - GT site care daily/prn - GTFs per dietary - OB stool r/o GI bleed uncollected - monitor H&H, transfuse prn - Prevacid GT - abx - fu labs Subjective Subjective limited Objective Last 24 Hour Vital Signs Date Time Temp Pulse Resp B/P Pulse Ox O2 Delivery O2 Flow Rate FiO2 11/25/16 13:03 72 24 40 11/25/16 13:00 40 11/25/16 13:00 71 19 153/85 100 Mechanical Ventilator 40 11/25/16 12:05 155/85 11/25/16 12:00 98.2 72 19 155/85 100 Mechanical Ventilator 40 11/25/16 12:00 40 11/25/16 12:00 72 11/25/16 11:00 100 11/25/16 11:00 40 11/25/16 11:00 69 20 40 11/25/16 11:00 71 19 155/92 100 Mechanical Ventilator 40 11/25/16 10:39 73 19 40 11/25/16 10:00 72 19 152/98 100 Mechanical Ventilator 40 11/25/16 09:10 73 150/78 11/25/16 09:00 72 19 150/78 100 Mechanical Ventilator 40 11/25/16 08:42 75 20 40 11/25/16 08:00 40 11/25/16 08:00 71 11/25/16 08:00 97.9 69 20 147/88 100 Mechanical Ventilator 40 11/25/16 07:01 72 21 40 11/25/16 07:00 71 22 139/82 100 Mechanical Ventilator 40 11/25/16 06:00 72 22 156/88 100 Mechanical Ventilator 40 11/25/16 05:24 132/78 11/25/16 05:17 72 21 40 11/25/16 05:00 72 19 132/78 100 Mechanical Ventilator 40 11/25/16 04:00 98.3 75 20 155/83 100 Mechanical Ventilator 40 11/25/16 04:00 40 11/25/16 04:00 73 11/25/16 03:15 74 20 40 11/25/16 03:00 74 19 139/82 100 Mechanical Ventilator 40 11/25/16 02:16 190/98 11/25/16 02:00 72 19 190/98 100 Mechanical Ventilator 40 11/25/16 01:46 68 21 40 11/25/16 01:00 74 19 166/88 100 Mechanical Ventilator 40 11/25/16 00:00 98.1 72 20 165/87 100 Mechanical Ventilator 40 11/25/16 00:00 72 11/25/16 00:00 40 11/24/16 23:51 164/88 11/24/16 23:00 72 20 164/88 100 Mechanical Ventilator 40 11/24/16 22:51 72 20 40 11/24/16 22:00 70 23 149/77 100 Mechanical Ventilator 40 11/24/16 21:34 69 23 40 11/24/16 21:00 73 18 146/94 100 Mechanical Ventilator 40 11/24/16 20:01 75 25 40 11/24/16 20:00 98.3 69 19 163/84 100 Mechanical Ventilator 40 11/24/16 20:00 40 11/24/16 20:00 71 11/24/16 19:00 69 17 155/83 100 Mechanical Ventilator 40 11/24/16 18:00 70 17 157/82 100 Mechanical Ventilator 40 11/24/16 18:00 155/83 11/24/16 17:00 69 20 167/79 100 Mechanical Ventilator 40 11/24/16 17:00 71 22 40 11/24/16 16:00 98.2 69 20 138/78 100 Mechanical Ventilator 40 11/24/16 16:00 71 11/24/16 16:00 40 11/24/16 16:00 98.2 73 24 146/80 100 Mechanical Ventilator 40 11/24/16 15:00 70 18 169/76 100 Mechanical Ventilator 40 11/24/16 14:43 67 21 40 11/24/16 14:00 69 20 157/78 100 Mechanical Ventilator 40 Intake and Output 11/24/16 11/25/16 19:00 07:00 Intake Total 811.25 ml 815.0 ml Output Total 880 ml 1245 ml Balance -68.75 ml -430.0 ml Intake Free Water 180 ml IV Total 151.25 ml 275.0 ml Tube Feeding 480 ml 480 ml Other 60 ml Output Urine Total 880 ml 1245 ml # Bowel Movements 2 33 Laboratory Tests Test 11/25/16 04:00 11/25/16 09:25 White Blood Count 11.5 K/UL (4.8-10.8) H Red Blood Count 4.37 M/UL (4.70-6.10) L Hemoglobin 10.8 G/DL (14.2-18.0) L Hematocrit 35.4 % (42.0-52.0) L Mean Corpuscular Volume 81 FL (80-99) Mean Corpuscular Hemoglobin 24.7 PG (27.0-31.0) L Mean Corpuscular Hemoglobin Concent 30.5 G/DL (32.0-36.0) L Red Cell Distribution Width 17.4 % (11.6-14.8) H Platelet Count 370 K/UL (150-450) Mean Platelet Volume 6.6 FL (6.5-10.1) Neutrophils (%) (Auto) 58.3 % (45.0-75.0) Lymphocytes (%) (Auto) 28.2 % (20.0-45.0) Monocytes (%) (Auto) 7.0 % (1.0-10.0) Eosinophils (%) (Auto) 5.8 % (0.0-3.0) H Basophils (%) (Auto) 0.6 % (0.0-2.0) Sodium Level 140 mEQ/L (135-145) Potassium Level 3.6 mEQ/L (3.4-4.9) Chloride Level 97 mEQ/L (98-107) L Carbon Dioxide Level 29 mEQ/L (20-30) Anion Gap 14 (5-15) Blood Urea Nitrogen 24 mg/dL (7-23) H Creatinine 1.2 mg/dL (0.7-1.2) Estimat Glomerular Filtration Rate mL/min (>60) Glucose Level 118 mg/dL (74-106) H Calcium Level 9.9 mg/dL (8.6-10.2) Phosphorus Level 3.4 mg/dL (2.5-4.8) Magnesium Level 1.7 mg/dL (1.7-2.5) Total Bilirubin 0.4 mg/dL (0.0-1.2) Aspartate Amino Transf (AST/SGOT) 24 U/L (5-40) Alanine Aminotransferase (ALT/SGPT) 20 U/L (3-41) Alkaline Phosphatase 93 U/L (40-129) Total Protein 8.2 g/dL (6.6-8.7) Albumin 2.7 g/dL (3.5-5.2) L Globulin 5.5 g/dL Albumin/Globulin Ratio 0.4 (1.0-2.7) L Arterial Blood pH 7.469 (7.350-7.450) Arterial Blood Partial Pressure CO2 45.9 mmHg (35.0-45.0) H Arterial Blood Partial Pressure O2 119.6 mmHg (75.0-100.0) H Arterial Blood HCO3 32.6 mmol/L (22.0-26.0) H Arterial Blood Oxygen Saturation 98.1 % (92.0-98.0) H Arterial Blood Base Excess 7.9 Librado Test Positive Height (Feet): 6 Height (Inches): 1.00 Weight (Pounds): 162 General Appearance: no apparent distress, alert Cardiovascular: normal rate Respiratory/Chest: no respiratory distress, other - mech vent Abdominal Exam: normal bowel sounds, non tender, soft, GT site - c/d/i Delfina Francois N.P. Nov 25, 2016 13:54
--- NOTE | 2016-11-25 15:33 | General Progress Note ---
Assessment/Plan Problem List: (1) Sepsis ICD Codes: A41.9 - Sepsis, unspecified organism SNOMED: 62363399 (2) Septic shock ICD Codes: A41.9 - Sepsis, unspecified organism; R65.21 - Severe sepsis with septic shock SNOMED: 60631723 (3) Renal failure ICD Codes: N19 - Unspecified kidney failure SNOMED: 15310764 Qualifiers: Qualified Codes: N17.9 - Acute kidney failure, unspecified (4) Respiratory distress ICD Codes: R06.00 - Dyspnea, unspecified SNOMED: 824263742 (5) Pneumonia ICD Codes: J18.9 - Pneumonia, unspecified organism SNOMED: 936680458 (6) UTI (urinary tract infection) ICD Codes: N39.0 - Urinary tract infection, site not specified SNOMED: 01963853 Status: unchanged Assessment/Plan vent abx cbc bmp am, wean vent if possible, or trach Subjective Constitutional: Reports: weakness Allergies: Coded Allergies: No Known Allergies (Verified , 01/02/09) All Systems: reviewed and negative except above Subjective intubated sedated in icu Objective Last 24 Hour Vital Signs Date Time Temp Pulse Resp B/P Pulse Ox O2 Delivery O2 Flow Rate FiO2 11/25/16 15:15 40 11/25/16 15:13 83 25 40 11/25/16 15:00 84 23 141/75 100 Mechanical Ventilator 40 11/25/16 14:00 80 19 136/83 100 Mechanical Ventilator 40 11/25/16 13:03 72 24 40 11/25/16 13:00 40 11/25/16 13:00 71 19 153/85 100 Mechanical Ventilator 40 11/25/16 12:05 155/85 11/25/16 12:00 98.2 72 19 155/85 100 Mechanical Ventilator 40 11/25/16 12:00 40 11/25/16 12:00 72 11/25/16 11:00 100 11/25/16 11:00 40 11/25/16 11:00 69 20 40 11/25/16 11:00 71 19 155/92 100 Mechanical Ventilator 40 11/25/16 10:39 73 19 40 11/25/16 10:00 72 19 152/98 100 Mechanical Ventilator 40 11/25/16 09:10 73 150/78 11/25/16 09:00 72 19 150/78 100 Mechanical Ventilator 40 11/25/16 08:42 75 20 40 11/25/16 08:00 40 11/25/16 08:00 71 11/25/16 08:00 97.9 69 20 147/88 100 Mechanical Ventilator 40 11/25/16 07:01 72 21 40 11/25/16 07:00 71 22 139/82 100 Mechanical Ventilator 40 11/25/16 06:00 72 22 156/88 100 Mechanical Ventilator 40 11/25/16 05:24 132/78 11/25/16 05:17 72 21 40 11/25/16 05:00 72 19 132/78 100 Mechanical Ventilator 40 11/25/16 04:00 98.3 75 20 155/83 100 Mechanical Ventilator 40 11/25/16 04:00 40 11/25/16 04:00 73 11/25/16 03:15 74 20 40 11/25/16 03:00 74 19 139/82 100 Mechanical Ventilator 40 11/25/16 02:16 190/98 11/25/16 02:00 72 19 190/98 100 Mechanical Ventilator 40 11/25/16 01:46 68 21 40 11/25/16 01:00 74 19 166/88 100 Mechanical Ventilator 40 11/25/16 00:00 98.1 72 20 165/87 100 Mechanical Ventilator 40 11/25/16 00:00 72 11/25/16 00:00 40 11/24/16 23:51 164/88 11/24/16 23:00 72 20 164/88 100 Mechanical Ventilator 40 11/24/16 22:51 72 20 40 11/24/16 22:00 70 23 149/77 100 Mechanical Ventilator 40 11/24/16 21:34 69 23 40 11/24/16 21:00 73 18 146/94 100 Mechanical Ventilator 40 11/24/16 20:01 75 25 40 11/24/16 20:00 98.3 69 19 163/84 100 Mechanical Ventilator 40 11/24/16 20:00 40 11/24/16 20:00 71 11/24/16 19:00 69 17 155/83 100 Mechanical Ventilator 40 11/24/16 18:00 70 17 157/82 100 Mechanical Ventilator 40 11/24/16 18:00 155/83 11/24/16 17:00 69 20 167/79 100 Mechanical Ventilator 40 7/9/17 17:00 71 22 40 11/24/16 16:00 98.2 69 20 138/78 100 Mechanical Ventilator 40 11/24/16 16:00 71 11/24/16 16:00 40 11/24/16 16:00 98.2 73 24 146/80 100 Mechanical Ventilator 40 Intake and Output 11/24/16 11/25/16 19:00 07:00 Intake Total 811.25 ml 815.0 ml Output Total 880 ml 1245 ml Balance -68.75 ml -430.0 ml Intake Free Water 180 ml IV Total 151.25 ml 275.0 ml Tube Feeding 480 ml 480 ml Other 60 ml Output Urine Total 880 ml 1245 ml # Bowel Movements 2 33 Laboratory Tests 11/25/16 04:00: White Blood Count 11.5H, Red Blood Count 4.37L, Hemoglobin 10.8L, Hematocrit 35.4L, Mean Corpuscular Volume 81, Mean Corpuscular Hemoglobin 24.7L, Mean Corpuscular Hemoglobin Concent 30.5L, Red Cell Distribution Width 17.4H, Platelet Count 370, Mean Platelet Volume 6.6, Neutrophils (%) (Auto) 58.3, Lymphocytes (%) (Auto) 28.2, Monocytes (%) (Auto) 7.0, Eosinophils (%) (Auto) 5.8H, Basophils (%) (Auto) 0.6, Sodium Level 140, Potassium Level 3.6, Chloride Level 97L, Carbon Dioxide Level 29, Anion Gap 14, Blood Urea Nitrogen 24H, Creatinine 1.2, Estimat Glomerular Filtration Rate , Glucose Level 118H, Calcium Level 9.9, Phosphorus Level 3.4, Magnesium Level 1.7, Total Bilirubin 0.4, Aspartate Amino Transf (AST/SGOT) 24, Alanine Aminotransferase (ALT/SGPT) 20, Alkaline Phosphatase 93, Total Protein 8.2, Albumin 2.7L, Globulin 5.5, Albumin/Globulin Ratio 0.4L 11/25/16 09:25: Arterial Blood pH 7.469H, Arterial Blood Partial Pressure CO2 45.9H, Arterial Blood Partial Pressure O2 119.6H, Arterial Blood HCO3 32.6H, Arterial Blood Oxygen Saturation 98.1H, Arterial Blood Base Excess 7.9, Librado Test Positive Height (Feet): 6 Height (Inches): 1.00 Weight (Pounds): 162 General Appearance: lethargic EENT: normal ENT inspection Neck: normal alignment Cardiovascular: normal peripheral pulses, normal rate, regular rhythm Respiratory/Chest: chest wall non-tender, lungs clear, normal breath sounds Abdomen: normal bowel sounds, non tender, soft Extremities: normal inspection Edema: no edema noted Arm (L), no edema noted Arm (R), no edema noted Leg (L), no edema noted Leg (R), no edema noted Pedal (L), no edema noted Pedal (R), no edema noted Generalized Neurologic: motor weakness Skin: normal pigmentation, warm/dry CASS YANES Nov 25, 2016 15:33
[2016-11-25] MEDS ORDERED: NS 275ml ONE (15:39)
[2016-11-25] MEDS ORDERED: Tubing IV Secondary IV ONE (15:39)
--- NOTE | 2016-11-25 16:01 | Infectious Diseases Prog Note ---
Assessment/Plan Problems: (1) HCAP (healthcare-associated pneumonia) Assessment & Plan: present on admission, with MRSA , will switch to oral doxycycline to finish his course of treatment for 14 days total, EOT 11/28/16 (2) Septic shock Assessment & Plan: with proteus mirabilis ESBL + , suspect source is UTI , complicated with respiratory failure, on zosyn , repeated blood culture to confirm clearance is negative , will treat with zosyn for 14 days . EOT (3) Respiratory distress Assessment & Plan: due to the above, S/P intubation, continue mechanical ventilation, monitor ABG, titrate oxygen as needed (4) UTI (urinary tract infection) Assessment & Plan: with proteus mirabilis and Providencia stuartii , most likely the source of his sepsis, on zosyn for 14 days (5) Renal failure Assessment & Plan: improving, continue hydration, avoid nephrotoxic meds (6) Hydronephrosis of left kidney Assessment & Plan: with hematuria, most likely due to urethral tear , had urology eval , and no intervention needed for now Subjective ROS Limited/Unobtainable: Yes Allergies: Coded Allergies: No Known Allergies (Verified , 01/02/09) Subjective he is still intubated on mechanical ventilation, awake, and alert, off sedation , not in distress, off pressors, afebrile Objective Vital Signs Last 24 Hour Vital Signs Date Time Temp Pulse Resp B/P Pulse Ox O2 Delivery O2 Flow Rate FiO2 11/25/16 15:15 40 11/25/16 15:13 83 25 40 11/25/16 15:00 84 23 141/75 100 Mechanical Ventilator 40 11/25/16 14:00 80 19 136/83 100 Mechanical Ventilator 40 11/25/16 13:03 72 24 40 11/25/16 13:00 40 11/25/16 13:00 71 19 153/85 100 Mechanical Ventilator 40 11/25/16 12:05 155/85 11/25/16 12:00 98.2 72 19 155/85 100 Mechanical Ventilator 40 11/25/16 12:00 40 11/25/16 12:00 72 11/25/16 11:00 100 11/25/16 11:00 40 11/25/16 11:00 69 20 40 11/25/16 11:00 71 19 155/92 100 Mechanical Ventilator 40 11/25/16 10:39 73 19 40 11/25/16 10:00 72 19 152/98 100 Mechanical Ventilator 40 11/25/16 09:10 73 150/78 11/25/16 09:00 72 19 150/78 100 Mechanical Ventilator 40 11/25/16 08:42 75 20 40 11/25/16 08:00 40 11/25/16 08:00 71 11/25/16 08:00 97.9 69 20 147/88 100 Mechanical Ventilator 40 11/25/16 07:01 72 21 40 11/25/16 07:00 71 22 139/82 100 Mechanical Ventilator 40 11/25/16 06:00 72 22 156/88 100 Mechanical Ventilator 40 11/25/16 05:24 132/78 11/25/16 05:17 72 21 40 11/25/16 05:00 72 19 132/78 100 Mechanical Ventilator 40 11/25/16 04:00 98.3 75 20 155/83 100 Mechanical Ventilator 40 11/25/16 04:00 40 11/25/16 04:00 73 11/25/16 03:15 74 20 40 11/25/16 03:00 74 19 139/82 100 Mechanical Ventilator 40 11/25/16 02:16 190/98 11/25/16 02:00 72 19 190/98 100 Mechanical Ventilator 40 11/25/16 01:46 68 21 40 11/25/16 01:00 74 19 166/88 100 Mechanical Ventilator 40 11/25/16 00:00 98.1 72 20 165/87 100 Mechanical Ventilator 40 11/25/16 00:00 72 11/25/16 00:00 40 11/24/16 23:51 164/88 11/24/16 23:00 72 20 164/88 100 Mechanical Ventilator 40 11/24/16 22:51 72 20 40 11/24/16 22:00 70 23 149/77 100 Mechanical Ventilator 40 11/24/16 21:34 69 23 40 11/24/16 21:00 73 18 146/94 100 Mechanical Ventilator 40 11/24/16 20:01 75 25 40 11/24/16 20:00 98.3 69 19 163/84 100 Mechanical Ventilator 40 11/24/16 20:00 40 11/24/16 20:00 71 11/24/16 19:00 69 17 155/83 100 Mechanical Ventilator 40 11/24/16 18:00 70 17 157/82 100 Mechanical Ventilator 40 11/24/16 18:00 155/83 11/24/16 17:00 69 20 167/79 100 Mechanical Ventilator 40 11/24/16 17:00 71 22 40 Height (Feet): 6 Height (Inches): 1.00 Weight (Pounds): 162 General Appearance: WD/WN, no acute distress HEENT: normocephalic, atraumatic, anicteric, mucous membranes moist, PERRL Respiratory/Chest: chest wall non-tender, lungs clear, normal breath sounds, no respiratory distress, no accessory muscle use, decreased breath sounds Cardiovascular: normal peripheral pulses, normal rate, regular rhythm, no gallop/murmur, no JVD Abdomen: normal bowel sounds, soft, non tender, no organomegaly, non distended , no mass Extremities: no cyanosis, no clubbing Skin: no rash, no lesions, ulcers Neurologic/Psychiatric: alert Lymphatic: no neck adenopathy, no groin adenopathy Laboratory Tests Test 11/25/16 04:00 11/25/16 09:25 White Blood Count 11.5 K/UL (4.8-10.8) H Red Blood Count 4.37 M/UL (4.70-6.10) L Hemoglobin 10.8 G/DL (14.2-18.0) L Hematocrit 35.4 % (42.0-52.0) L Mean Corpuscular Volume 81 FL (80-99) Mean Corpuscular Hemoglobin 24.7 PG (27.0-31.0) L Mean Corpuscular Hemoglobin Concent 30.5 G/DL (32.0-36.0) L Red Cell Distribution Width 17.4 % (11.6-14.8) H Platelet Count 370 K/UL (150-450) Mean Platelet Volume 6.6 FL (6.5-10.1) Neutrophils (%) (Auto) 58.3 % (45.0-75.0) Lymphocytes (%) (Auto) 28.2 % (20.0-45.0) Monocytes (%) (Auto) 7.0 % (1.0-10.0) Eosinophils (%) (Auto) 5.8 % (0.0-3.0) H Basophils (%) (Auto) 0.6 % (0.0-2.0) Sodium Level 140 mEQ/L (135-145) Potassium Level 3.6 mEQ/L (3.4-4.9) Chloride Level 97 mEQ/L (98-107) L Carbon Dioxide Level 29 mEQ/L (20-30) Anion Gap 14 (5-15) Blood Urea Nitrogen 24 mg/dL (7-23) H Creatinine 1.2 mg/dL (0.7-1.2) Estimat Glomerular Filtration Rate mL/min (>60) Glucose Level 118 mg/dL (74-106) H Calcium Level 9.9 mg/dL (8.6-10.2) Phosphorus Level 3.4 mg/dL (2.5-4.8) Magnesium Level 1.7 mg/dL (1.7-2.5) Total Bilirubin 0.4 mg/dL (0.0-1.2) Aspartate Amino Transf (AST/SGOT) 24 U/L (5-40) Alanine Aminotransferase (ALT/SGPT) 20 U/L (3-41) Alkaline Phosphatase 93 U/L (40-129) Total Protein 8.2 g/dL (6.6-8.7) Albumin 2.7 g/dL (3.5-5.2) L Globulin 5.5 g/dL Albumin/Globulin Ratio 0.4 (1.0-2.7) L Arterial Blood pH 7.469 (7.350-7.450) Arterial Blood Partial Pressure CO2 45.9 mmHg (35.0-45.0) H Arterial Blood Partial Pressure O2 119.6 mmHg (75.0-100.0) H Arterial Blood HCO3 32.6 mmol/L (22.0-26.0) H Arterial Blood Oxygen Saturation 98.1 % (92.0-98.0) H Arterial Blood Base Excess 7.9 Librado Test Positive Current Medications Medications (Trade) Dose Ordered Sig/Keira Route PRN Reason Start Time Stop Time Status Last Admin Dose Admin Acetaminophen (Tylenol) 650 mg Q4H PRN ORAL fever 11/14/16 18:00 12/14/16 17:59 11/17/16 21:35 Amlodipine Besylate (Norvasc) 10 mg DAILY GT 11/18/16 11:00 12/18/16 10:59 11/25/16 09:10 Chlorhexidine Gluconate (Michelle-Hex 2%) 1 applic QHS TOPIC 11/15/16 21:00 12/15/16 20:59 11/24/16 20:37 Doxycycline Monohydrate (Vibramycin) 100 mg Q12HR@0600,1800 GT 11/25/16 18:00 12/02/16 17:59 Heparin Sodium (Porcine) (Heparin 5000 units/ml) 5,000 units EVERY 12 HOURS SUBQ 11/15/16 21:00 12/15/16 20:59 11/25/16 09:11 Hydralazine HCl (Apresoline) 10 mg Q4H PRN IV SBP > 150 11/18/16 12:15 12/18/16 12:14 11/25/16 02:16 Hydralazine HCl (Apresoline) 25 mg Q6HR GT 11/20/16 10:28 12/19/16 05:59 11/25/16 12:05 Hydromorphone HCl (Dilaudid) 0.5 mg Q4H PRN IVP Severe Pain (Pain Scale 7-10) 11/21/16 10:30 11/28/16 10:29 11/25/16 01:09 Lansoprazole (Prevacid) 30 mg DAILY GT 11/19/16 09:00 12/19/16 08:59 11/25/16 09:09 Ondansetron HCl (Zofran) 4 mg Q6H PRN IVP Nausea & Vomiting 11/14/16 20:00 12/14/16 19:59 Piperacillin Sod/ Tazobactam Sod/ Dextrose (Zosyn/D5W) 110 ml @ 27.5 mls/hr Q8H IVPB 11/17/16 12:00 12/04/16 23:00 11/25/16 12:05 Polyethylene Glycol 17 gm 17 gm DAILYPRN PRN GT Constipation 11/17/16 10:41 12/15/16 13:59 11/21/16 03:06 Vitamin A/Vitamin D (A & D Oint) 1 applic EVERY 12 HOURS TOPIC 11/15/16 21:00 12/15/16 20:59 11/25/16 09:10 Julianna Trejo M.D. Nov 25, 2016 16:01
[2016-11-25] MEDS: Dyna-Hex 2% Top Sol 8oz TOPIC SCH (21:23)
[2016-11-26] VITALS (24 sets, daily range): BP systolic 120–151; BP diastolic 70–91
[2016-11-26] MEDS: HydrALAZINE 25mg tab GT SCH ×5 (00:46→23:52)
[2016-11-26] MEDS: Piperacillin/Tazobactam 3.375 GM in D5W 110 ML IVPB SCH ×3 (04:20→19:37)
[2016-11-26 05:16] LABS: BASOPHILS % (AUTO) 0.5 % (0.0-2.0); EOSINOPHILS % (AUTO) 7.8 % (0.0-3.0); LYMPHOCYTES % (AUTO) 27.5 % (20.0-45.0); MEAN CORPUSCULAR HEMOGLOBIN 23.9 PG (27.0-31.0); MEAN CORPUSCULAR HGB CONC 29.8 G/DL (32.0-36.0); MEAN CORPUSCULAR VOLUME 80 FL (80-99); MEAN PLATELET VOLUME 6.6 FL (6.5-10.1); MONOCYTES % (AUTO) 8.3 % (1.0-10.0); NEUTROPHILS % (AUTO) 55.8 % (45.0-75.0); PLATELET COUNT 410 K/UL (150-450); RED BLOOD COUNT 4.42 M/UL (4.70-6.10); RED CELL DISTRIBUTION WIDTH 17.1 % (11.6-14.8); WHITE BLOOD COUNT 9.8 K/UL (4.8-10.8)
[2016-11-26 05:42] LABS: ALANINE AMINOTRANSFERASE 17 U/L (3-41); ALBUMIN/GLOBULIN RATIO 0.4 (1.0-2.7); ANION GAP 13 (5-15); ASPARTATE AMINO TRANSFERASE 19 U/L (5-40); CALCIUM 9.7 mg/dL (8.6-10.2); CARBON DIOXIDE 29 mEQ/L (20-30); CHLORIDE 97 mEQ/L (98-107); CREATININE 1.4 mg/dL (0.7-1.2); HEMOLYSIS 0; MAGNESIUM 1.8 mg/dL (1.7-2.5); PHOSPHORUS 3.6 mg/dL (2.5-4.8); POTASSIUM 3.5 mEQ/L (3.4-4.9); SODIUM 139 mEQ/L (135-145)
[2016-11-26] MEDS: Vitamin A&D Oint 2oz Tube TOPIC SCH ×2 (09:21→20:36)
[2016-11-26] MEDS: Heparin 5000 units/ml inj SUBQ SCH ×2 (09:23→20:38)
[2016-11-26] MEDS ORDERED: Hydromorphone 0.5mg/0.5ml inj IVP PRN (10:30)
--- NOTE | 2016-11-26 13:30 | Diagnostic Imaging Report ---
Indication: Dyspnea Comparison: 11/25/16 A single view chest radiograph was obtained. Findings: A suggestion of perihilar parenchymal disease especially at the left lung base. Please correlate clinically. Heart size is normal. Tubes and lines are stable. Impression: Suggestion of left perihilar infiltrate/atelectasis or asymmetric edema. No change.
--- NOTE | 2016-11-26 13:30 | General Progress Note ---
Assessment/Plan Problem List: (1) Sepsis ICD Codes: A41.9 - Sepsis, unspecified organism SNOMED: 90943081 (2) Septic shock ICD Codes: A41.9 - Sepsis, unspecified organism; R65.21 - Severe sepsis with septic shock SNOMED: 40492930 (3) Renal failure ICD Codes: N19 - Unspecified kidney failure SNOMED: 18218203 Qualifiers: Qualified Codes: N17.9 - Acute kidney failure, unspecified (4) Respiratory distress ICD Codes: R06.00 - Dyspnea, unspecified SNOMED: 303177442 (5) Pneumonia ICD Codes: J18.9 - Pneumonia, unspecified organism SNOMED: 283723745 (6) UTI (urinary tract infection) ICD Codes: N39.0 - Urinary tract infection, site not specified SNOMED: 41114983 Assessment/Plan vent abx cbc bmp am, wean vent if possible, or trach naima ltach eval Subjective Constitutional: Reports: weakness Allergies: Coded Allergies: No Known Allergies (Verified , 01/02/09) All Systems: reviewed and negative except above Subjective intubated sedated in icu Objective Last 24 Hour Vital Signs Date Time Temp Pulse Resp B/P Pulse Ox O2 Delivery O2 Flow Rate FiO2 11/26/16 13:10 78 22 40 11/26/16 13:00 77 40 139/77 100 Mechanical Ventilator 40 11/26/16 12:40 142/80 11/26/16 12:25 40 11/26/16 12:25 100 11/26/16 12:00 74 11/26/16 12:00 40 11/26/16 12:00 98.5 73 18 121/84 100 Mechanical Ventilator 40 11/26/16 11:23 75 19 40 11/26/16 11:00 71 23 134/70 100 Mechanical Ventilator 40 11/26/16 10:00 70 18 133/77 100 Mechanical Ventilator 40 11/26/16 09:21 82 143/79 11/26/16 09:08 76 19 40 11/26/16 09:00 72 18 143/79 100 Mechanical Ventilator 40 11/26/16 08:00 40 11/26/16 08:00 98.4 74 18 120/87 100 Mechanical Ventilator 40 11/26/16 08:00 72 11/26/16 07:00 73 20 146/73 100 Mechanical Ventilator 40 11/26/16 06:47 72 19 40 11/26/16 06:05 150/84 11/26/16 06:00 69 19 150/84 100 Mechanical Ventilator 40 11/26/16 05:00 73 19 141/80 100 Mechanical Ventilator 40 11/26/16 04:49 79 19 40 11/26/16 04:00 98.4 76 19 123/84 100 Mechanical Ventilator 40 11/26/16 04:00 40 11/26/16 04:00 76 11/26/16 03:30 76 19 40 11/26/16 03:00 76 21 142/74 99 Mechanical Ventilator 40 11/26/16 02:00 76 21 126/75 99 Mechanical Ventilator 40 11/26/16 01:30 75 19 40 11/26/16 01:00 80 21 149/77 100 Mechanical Ventilator 40 11/26/16 00:46 146/78 11/26/16 00:00 81 11/26/16 00:00 40 11/26/16 00:00 98.8 76 19 146/78 100 Mechanical Ventilator 40 11/25/16 23:30 75 18 40 11/25/16 23:00 75 18 136/70 100 Mechanical Ventilator 40 11/25/16 22:00 75 18 142/71 100 Mechanical Ventilator 40 11/25/16 21:30 74 18 40 11/25/16 21:00 72 18 139/80 100 Mechanical Ventilator 40 11/25/16 20:00 74 11/25/16 20:00 40 11/25/16 20:00 98.6 75 18 142/71 100 Mechanical Ventilator 40 11/25/16 19:30 73 18 40 11/25/16 19:00 76 20 139/74 100 Mechanical Ventilator 40 11/25/16 18:00 84 20 128/69 100 Mechanical Ventilator 40 11/25/16 17:32 132/78 11/25/16 17:00 84 18 132/78 100 Mechanical Ventilator 40 11/25/16 16:40 87 18 40 11/25/16 16:00 98.3 77 16 115/88 100 Mechanical Ventilator 40 11/25/16 16:00 80 11/25/16 15:45 80 30 40 11/25/16 15:15 40 11/25/16 15:13 83 25 40 11/25/16 15:00 84 23 141/75 100 Mechanical Ventilator 40 11/25/16 14:00 80 19 136/83 100 Mechanical Ventilator 40 Intake and Output 11/25/16 11/26/16 19:00 07:00 Intake Total 677.5 ml 660 ml Output Total 1210 ml 870 ml Balance -532.5 ml -210 ml Intake Free Water 50 ml 120 ml IV Total 137.5 ml Tube Feeding 390 ml 540 ml Other 100 ml Output Urine Total 1210 ml 870 ml # Bowel Movements 4 2 Laboratory Tests 11/26/16 04:40: White Blood Count 9.8, Red Blood Count 4.42L, Hemoglobin 10.6L, Hematocrit 35.4L , Mean Corpuscular Volume 80, Mean Corpuscular Hemoglobin 23.9L, Mean Corpuscular Hemoglobin Concent 29.8L, Red Cell Distribution Width 17.1H, Platelet Count 410, Mean Platelet Volume 6.6, Neutrophils (%) (Auto) 55.8, Lymphocytes (%) (Auto) 27.5, Monocytes (%) (Auto) 8.3, Eosinophils (%) (Auto) 7.8H, Basophils (%) (Auto) 0.5, Sodium Level 139, Potassium Level 3.5, Chloride Level 97L, Carbon Dioxide Level 29, Anion Gap 13, Blood Urea Nitrogen 27H, Creatinine 1.4H, Estimat Glomerular Filtration Rate , Glucose Level 129H, Calcium Level 9.7, Phosphorus Level 3.6, Magnesium Level 1.8, Total Bilirubin 0.4, Aspartate Amino Transf (AST/SGOT) 19, Alanine Aminotransferase (ALT/SGPT) 17, Alkaline Phosphatase 83, Total Protein 8.0, Albumin 2.6L, Globulin 5.4, Albumin/Globulin Ratio 0.4L Height (Feet): 6 Height (Inches): 1.00 Weight (Pounds): 170 General Appearance: lethargic EENT: normal ENT inspection Neck: normal alignment Cardiovascular: normal peripheral pulses, normal rate, regular rhythm Respiratory/Chest: chest wall non-tender, lungs clear, normal breath sounds Abdomen: normal bowel sounds, non tender, soft Extremities: normal inspection Edema: no edema noted Arm (L), no edema noted Arm (R), no edema noted Leg (L), no edema noted Leg (R), no edema noted Pedal (L), no edema noted Pedal (R), no edema noted Generalized Neurologic: motor weakness Skin: normal pigmentation, warm/dry CASS YANES Nov 26, 2016 13:30
[2016-11-26 13:48] LABS: ABG ALLEN TEST POSITIVE; ABG BASE EXCESS 6.4
--- NOTE | 2016-11-26 15:01 | Infectious Diseases Prog Note ---
Assessment/Plan Problems: (1) HCAP (healthcare-associated pneumonia) Assessment & Plan: due to MRSA , on oral doxycycline to finish his course of treatment for 14 days total, EOT 11/28/16 (2) Septic shock Assessment & Plan: with proteus mirabilis ESBL + , suspect source is UTI , on zosyn , repeated blood culture to confirm clearance is negative , will treat with zosyn for 14 days . EOT 12/02/16 (3) Respiratory distress Assessment & Plan: due to the above, S/P intubation, continue mechanical ventilation, monitor ABG, titrate oxygen as needed (4) UTI (urinary tract infection) Assessment & Plan: with proteus mirabilis and Providencia stuartii , most likely the source of his sepsis, on zosyn for 14 days (5) Renal failure Assessment & Plan: improving, continue hydration, avoid nephrotoxic meds (6) Hydronephrosis of left kidney Assessment & Plan: with hematuria, most likely due to urethral tear , had urology eval , and no intervention needed for now (7) Ventilator dependent Assessment & Plan: may need tracheostomy , ENT consulted Subjective ROS Limited/Unobtainable: Yes Allergies: Coded Allergies: No Known Allergies (Verified , 01/02/09) Subjective he is still intubated on mechanical ventilation, on weaning trials, awake and alert, off sedation, not in distress, off pressors, afebrile Objective Vital Signs Last 24 Hour Vital Signs Date Time Temp Pulse Resp B/P Pulse Ox O2 Delivery O2 Flow Rate FiO2 11/26/16 14:00 72 18 135/75 100 Mechanical Ventilator 40 11/26/16 13:10 78 22 40 11/26/16 13:00 77 40 139/77 100 Mechanical Ventilator 40 11/26/16 12:40 142/80 11/26/16 12:25 40 11/26/16 12:25 100 11/26/16 12:00 74 11/26/16 12:00 40 11/26/16 12:00 98.5 73 18 121/84 100 Mechanical Ventilator 40 11/26/16 11:23 75 19 40 11/26/16 11:00 71 23 134/70 100 Mechanical Ventilator 40 11/26/16 10:00 70 18 133/77 100 Mechanical Ventilator 40 11/26/16 09:21 82 143/79 11/26/16 09:08 76 19 40 11/26/16 09:00 72 18 143/79 100 Mechanical Ventilator 40 11/26/16 08:00 40 11/26/16 08:00 98.4 74 18 120/87 100 Mechanical Ventilator 40 11/26/16 08:00 72 11/26/16 07:00 73 20 146/73 100 Mechanical Ventilator 40 11/26/16 06:47 72 19 40 11/26/16 06:05 150/84 11/26/16 06:00 69 19 150/84 100 Mechanical Ventilator 40 11/26/16 05:00 73 19 141/80 100 Mechanical Ventilator 40 11/26/16 04:49 79 19 40 11/26/16 04:00 98.4 76 19 123/84 100 Mechanical Ventilator 40 11/26/16 04:00 40 11/26/16 04:00 76 11/26/16 03:30 76 19 40 11/26/16 03:00 76 21 142/74 99 Mechanical Ventilator 40 11/26/16 02:00 76 21 126/75 99 Mechanical Ventilator 40 11/26/16 01:30 75 19 40 11/26/16 01:00 80 21 149/77 100 Mechanical Ventilator 40 11/26/16 00:46 146/78 11/26/16 00:00 81 11/26/16 00:00 40 11/26/16 00:00 98.8 76 19 146/78 100 Mechanical Ventilator 40 11/25/16 23:30 75 18 40 11/25/16 23:00 75 18 136/70 100 Mechanical Ventilator 40 11/25/16 22:00 75 18 142/71 100 Mechanical Ventilator 40 11/25/16 21:30 74 18 40 11/25/16 21:00 72 18 139/80 100 Mechanical Ventilator 40 11/25/16 20:00 74 11/25/16 20:00 40 11/25/16 20:00 98.6 75 18 142/71 100 Mechanical Ventilator 40 11/25/16 19:30 73 18 40 11/25/16 19:00 76 20 139/74 100 Mechanical Ventilator 40 11/25/16 18:00 84 20 128/69 100 Mechanical Ventilator 40 11/25/16 17:32 132/78 11/25/16 17:00 84 18 132/78 100 Mechanical Ventilator 40 11/25/16 16:40 87 18 40 11/25/16 16:00 98.3 77 16 115/88 100 Mechanical Ventilator 40 11/25/16 16:00 80 11/25/16 15:45 80 30 40 11/25/16 15:15 40 11/25/16 15:13 83 25 40 11/25/16 15:00 84 23 141/75 100 Mechanical Ventilator 40 Height (Feet): 6 Height (Inches): 1.00 Weight (Pounds): 170 General Appearance: WD/WN, no acute distress HEENT: normocephalic, atraumatic, anicteric, mucous membranes moist, PERRL, supple, no JVD Respiratory/Chest: chest wall non-tender, lungs clear, normal breath sounds, no respiratory distress, no accessory muscle use Cardiovascular: normal peripheral pulses, normal rate, regular rhythm, no gallop/murmur, no JVD Abdomen: normal bowel sounds, soft, non tender, no organomegaly, non distended , no mass, no scars Extremities: no cyanosis, no clubbing Skin: no rash, no lesions Neurologic/Psychiatric: alert Lymphatic: no neck adenopathy Laboratory Tests Test 11/26/16 04:40 11/26/16 13:25 White Blood Count 9.8 K/UL (4.8-10.8) Red Blood Count 4.42 M/UL (4.70-6.10) L Hemoglobin 10.6 G/DL (14.2-18.0) L Hematocrit 35.4 % (42.0-52.0) L Mean Corpuscular Volume 80 FL (80-99) Mean Corpuscular Hemoglobin 23.9 PG (27.0-31.0) L Mean Corpuscular Hemoglobin Concent 29.8 G/DL (32.0-36.0) L Red Cell Distribution Width 17.1 % (11.6-14.8) H Platelet Count 410 K/UL (150-450) Mean Platelet Volume 6.6 FL (6.5-10.1) Neutrophils (%) (Auto) 55.8 % (45.0-75.0) Lymphocytes (%) (Auto) 27.5 % (20.0-45.0) Monocytes (%) (Auto) 8.3 % (1.0-10.0) Eosinophils (%) (Auto) 7.8 % (0.0-3.0) H Basophils (%) (Auto) 0.5 % (0.0-2.0) Sodium Level 139 mEQ/L (135-145) Potassium Level 3.5 mEQ/L (3.4-4.9) Chloride Level 97 mEQ/L (98-107) L Carbon Dioxide Level 29 mEQ/L (20-30) Anion Gap 13 (5-15) Blood Urea Nitrogen 27 mg/dL (7-23) H Creatinine 1.4 mg/dL (0.7-1.2) H Estimat Glomerular Filtration Rate mL/min (>60) Glucose Level 129 mg/dL (74-106) H Calcium Level 9.7 mg/dL (8.6-10.2) Phosphorus Level 3.6 mg/dL (2.5-4.8) Magnesium Level 1.8 mg/dL (1.7-2.5) Total Bilirubin 0.4 mg/dL (0.0-1.2) Aspartate Amino Transf (AST/SGOT) 19 U/L (5-40) Alanine Aminotransferase (ALT/SGPT) 17 U/L (3-41) Alkaline Phosphatase 83 U/L (40-129) Total Protein 8.0 g/dL (6.6-8.7) Albumin 2.6 g/dL (3.5-5.2) L Globulin 5.4 g/dL Albumin/Globulin Ratio 0.4 (1.0-2.7) L Arterial Blood pH 7.442 (7.350-7.450) Arterial Blood Partial Pressure CO2 47.0 mmHg (35.0-45.0) H Arterial Blood Partial Pressure O2 94.5 mmHg (75.0-100.0) Arterial Blood HCO3 31.3 mmol/L (22.0-26.0) H Arterial Blood Oxygen Saturation 97.3 % (92.0-98.0) Arterial Blood Base Excess 6.4 Librado Test Positive Current Medications Medications (Trade) Dose Ordered Sig/Keira Route PRN Reason Start Time Stop Time Status Last Admin Dose Admin Acetaminophen (Tylenol) 650 mg Q4H PRN ORAL fever 11/14/16 18:00 12/14/16 17:59 11/17/16 21:35 Amlodipine Besylate (Norvasc) 10 mg DAILY GT 11/18/16 11:00 12/18/16 10:59 11/26/16 09:21 Chlorhexidine Gluconate (Michelle-Hex 2%) 1 applic QHS TOPIC 11/15/16 21:00 12/15/16 20:59 11/25/16 21:23 Doxycycline Monohydrate (Vibramycin) 100 mg Q12HR@0600,1800 GT 11/25/16 18:00 12/02/16 17:59 11/26/16 06:05 Heparin Sodium (Porcine) (Heparin 5000 units/ml) 5,000 units EVERY 12 HOURS SUBQ 11/15/16 21:00 12/15/16 20:59 11/26/16 09:23 Hydralazine HCl (Apresoline) 10 mg Q4H PRN IV SBP > 150 11/18/16 12:15 12/18/16 12:14 11/25/16 02:16 Hydralazine HCl (Apresoline) 25 mg Q6HR GT 11/20/16 10:28 12/19/16 05:59 11/26/16 12:40 Hydromorphone HCl (Dilaudid) 0.5 mg Q4H PRN IVP Severe Pain (Pain Scale 7-10) 11/26/16 10:30 12/03/16 10:29 Lansoprazole (Prevacid) 30 mg DAILY GT 11/19/16 09:00 12/19/16 08:59 11/26/16 09:21 Lorazepam (Ativan 2mg/ml 1ml) 2 mg Q4H PRN IV For Anxiety 11/25/16 21:15 12/02/16 21:14 Ondansetron HCl (Zofran) 4 mg Q6H PRN IVP Nausea & Vomiting 11/14/16 20:00 12/14/16 19:59 Piperacillin Sod/ Tazobactam Sod/ Dextrose (Zosyn/D5W) 110 ml @ 27.5 mls/hr Q8H IVPB 11/17/16 12:00 12/04/16 23:00 11/26/16 12:17 Polyethylene Glycol 17 gm 17 gm DAILYPRN PRN GT Constipation 11/17/16 10:41 12/15/16 13:59 11/21/16 03:06 Vitamin A/Vitamin D (A & D Oint) 1 applic EVERY 12 HOURS TOPIC 11/15/16 21:00 12/15/16 20:59 11/26/16 09:21 Julianna Trejo M.D. Nov 26, 2016 15:01
--- NOTE | 2016-11-26 15:04 | GI Progress Note ---
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 Taveras. Assessment/Plan GT site care daily/prn GTFs per dietary, tolerating OB stool r/o GI bleed uncollected stable H&H, transfuse prn Prevacid GT abx fu labs Subjective Subjective limited Objective Last 24 Hour Vital Signs Date Time Temp Pulse Resp B/P Pulse Ox O2 Delivery O2 Flow Rate FiO2 11/26/16 14:00 72 18 135/75 100 Mechanical Ventilator 40 11/26/16 13:10 78 22 40 11/26/16 13:00 77 40 139/77 100 Mechanical Ventilator 40 11/26/16 12:40 142/80 11/26/16 12:25 40 11/26/16 12:25 100 11/26/16 12:00 74 11/26/16 12:00 40 11/26/16 12:00 98.5 73 18 121/84 100 Mechanical Ventilator 40 11/26/16 11:23 75 19 40 11/26/16 11:00 71 23 134/70 100 Mechanical Ventilator 40 11/26/16 10:00 70 18 133/77 100 Mechanical Ventilator 40 11/26/16 09:21 82 143/79 11/26/16 09:08 76 19 40 11/26/16 09:00 72 18 143/79 100 Mechanical Ventilator 40 11/26/16 08:00 40 11/26/16 08:00 98.4 74 18 120/87 100 Mechanical Ventilator 40 11/26/16 08:00 72 11/26/16 07:00 73 20 146/73 100 Mechanical Ventilator 40 11/26/16 06:47 72 19 40 11/26/16 06:05 150/84 11/26/16 06:00 69 19 150/84 100 Mechanical Ventilator 40 11/26/16 05:00 73 19 141/80 100 Mechanical Ventilator 40 11/26/16 04:49 79 19 40 11/26/16 04:00 98.4 76 19 123/84 100 Mechanical Ventilator 40 11/26/16 04:00 40 11/26/16 04:00 76 11/26/16 03:30 76 19 40 11/26/16 03:00 76 21 142/74 99 Mechanical Ventilator 40 11/26/16 02:00 76 21 126/75 99 Mechanical Ventilator 40 11/26/16 01:30 75 19 40 11/26/16 01:00 80 21 149/77 100 Mechanical Ventilator 40 11/26/16 00:46 146/78 11/26/16 00:00 81 11/26/16 00:00 40 11/26/16 00:00 98.8 76 19 146/78 100 Mechanical Ventilator 40 11/25/16 23:30 75 18 40 11/25/16 23:00 75 18 136/70 100 Mechanical Ventilator 40 11/25/16 22:00 75 18 142/71 100 Mechanical Ventilator 40 11/25/16 21:30 74 18 40 11/25/16 21:00 72 18 139/80 100 Mechanical Ventilator 40 11/25/16 20:00 74 11/25/16 20:00 40 11/25/16 20:00 98.6 75 18 142/71 100 Mechanical Ventilator 40 11/25/16 19:30 73 18 40 11/25/16 19:00 76 20 139/74 100 Mechanical Ventilator 40 11/25/16 18:00 84 20 128/69 100 Mechanical Ventilator 40 11/25/16 17:32 132/78 11/25/16 17:00 84 18 132/78 100 Mechanical Ventilator 40 11/25/16 16:40 87 18 40 11/25/16 16:00 98.3 77 16 115/88 100 Mechanical Ventilator 40 11/25/16 16:00 80 11/25/16 15:45 80 30 40 11/25/16 15:15 40 11/25/16 15:13 83 25 40 Intake and Output 11/25/16 11/26/16 19:00 07:00 Intake Total 677.5 ml 660 ml Output Total 1210 ml 870 ml Balance -532.5 ml -210 ml Intake Free Water 50 ml 120 ml IV Total 137.5 ml Tube Feeding 390 ml 540 ml Other 100 ml Output Urine Total 1210 ml 870 ml # Bowel Movements 4 2 Laboratory Tests Test 11/26/16 04:40 11/26/16 13:25 White Blood Count 9.8 K/UL (4.8-10.8) Red Blood Count 4.42 M/UL (4.70-6.10) L Hemoglobin 10.6 G/DL (14.2-18.0) L Hematocrit 35.4 % (42.0-52.0) L Mean Corpuscular Volume 80 FL (80-99) Mean Corpuscular Hemoglobin 23.9 PG (27.0-31.0) L Mean Corpuscular Hemoglobin Concent 29.8 G/DL (32.0-36.0) L Red Cell Distribution Width 17.1 % (11.6-14.8) H Platelet Count 410 K/UL (150-450) Mean Platelet Volume 6.6 FL (6.5-10.1) Neutrophils (%) (Auto) 55.8 % (45.0-75.0) Lymphocytes (%) (Auto) 27.5 % (20.0-45.0) Monocytes (%) (Auto) 8.3 % (1.0-10.0) Eosinophils (%) (Auto) 7.8 % (0.0-3.0) H Basophils (%) (Auto) 0.5 % (0.0-2.0) Sodium Level 139 mEQ/L (135-145) Potassium Level 3.5 mEQ/L (3.4-4.9) Chloride Level 97 mEQ/L (98-107) L Carbon Dioxide Level 29 mEQ/L (20-30) Anion Gap 13 (5-15) Blood Urea Nitrogen 27 mg/dL (7-23) H Creatinine 1.4 mg/dL (0.7-1.2) H Estimat Glomerular Filtration Rate mL/min (>60) Glucose Level 129 mg/dL (74-106) H Calcium Level 9.7 mg/dL (8.6-10.2) Phosphorus Level 3.6 mg/dL (2.5-4.8) Magnesium Level 1.8 mg/dL (1.7-2.5) Total Bilirubin 0.4 mg/dL (0.0-1.2) Aspartate Amino Transf (AST/SGOT) 19 U/L (5-40) Alanine Aminotransferase (ALT/SGPT) 17 U/L (3-41) Alkaline Phosphatase 83 U/L (40-129) Total Protein 8.0 g/dL (6.6-8.7) Albumin 2.6 g/dL (3.5-5.2) L Globulin 5.4 g/dL Albumin/Globulin Ratio 0.4 (1.0-2.7) L Arterial Blood pH 7.442 (7.350-7.450) Arterial Blood Partial Pressure CO2 47.0 mmHg (35.0-45.0) H Arterial Blood Partial Pressure O2 94.5 mmHg (75.0-100.0) Arterial Blood HCO3 31.3 mmol/L (22.0-26.0) H Arterial Blood Oxygen Saturation 97.3 % (92.0-98.0) Arterial Blood Base Excess 6.4 Librado Test Positive Height (Feet): 6 Height (Inches): 1.00 Weight (Pounds): 170 General Appearance: no apparent distress Cardiovascular: normal rate Respiratory/Chest: other - mech vent Abdominal Exam: site - c/d/i Delfina Francois N.P. Nov 26, 2016 15:04
--- NOTE | 2016-11-26 17:11 | General Progress Note ---
Assessment/Plan Assessment/Plan (1) Respiratory distress (2) Incubated on Ventilator (3) Septic Shock (4) Sacral decubitus ulcer Pt will be continued on Dilaudid. D/w Dr. Rodríguez and he concurred. Subjective Date patient seen: Nov 26, 2016 ROS Limited/Unobtainable: Yes Allergies: Coded Allergies: No Known Allergies (Verified , 01/02/09) Subjective The patient is ICU intubated on vent. Received one dose of Dilaudid in the last 24hrs. Objective Last 24 Hour Vital Signs Date Time Temp Pulse Resp B/P Pulse Ox O2 Delivery O2 Flow Rate FiO2 11/26/16 17:06 79 20 40 11/26/16 17:00 76 20 146/79 100 Mechanical Ventilator 40 11/26/16 16:00 74 11/26/16 16:00 98.6 74 18 149/91 100 Mechanical Ventilator 40 11/26/16 15:03 72 18 40 11/26/16 15:00 75 18 151/76 100 Mechanical Ventilator 40 11/26/16 14:00 72 18 135/75 100 Mechanical Ventilator 40 11/26/16 13:10 78 22 40 11/26/16 13:00 77 40 139/77 100 Mechanical Ventilator 40 11/26/16 12:40 142/80 11/26/16 12:25 40 11/26/16 12:25 100 11/26/16 12:00 74 11/26/16 12:00 40 11/26/16 12:00 98.5 73 18 121/84 100 Mechanical Ventilator 40 11/26/16 11:23 75 19 40 11/26/16 11:00 71 23 134/70 100 Mechanical Ventilator 40 11/26/16 10:00 70 18 133/77 100 Mechanical Ventilator 40 11/26/16 09:21 82 143/79 11/26/16 09:08 76 19 40 11/26/16 09:00 72 18 143/79 100 Mechanical Ventilator 40 11/26/16 08:00 40 11/26/16 08:00 98.4 74 18 120/87 100 Mechanical Ventilator 40 11/26/16 08:00 72 11/26/16 07:00 73 20 146/73 100 Mechanical Ventilator 40 11/26/16 06:47 72 19 40 11/26/16 06:05 150/84 11/26/16 06:00 69 19 150/84 100 Mechanical Ventilator 40 11/26/16 05:00 73 19 141/80 100 Mechanical Ventilator 40 11/26/16 04:49 79 19 40 11/26/16 04:00 98.4 76 19 123/84 100 Mechanical Ventilator 40 11/26/16 04:00 40 11/26/16 04:00 76 11/26/16 03:30 76 19 40 11/26/16 03:00 76 21 142/74 99 Mechanical Ventilator 40 11/26/16 02:00 76 21 126/75 99 Mechanical Ventilator 40 11/26/16 01:30 75 19 40 11/26/16 01:00 80 21 149/77 100 Mechanical Ventilator 40 11/26/16 00:46 146/78 11/26/16 00:00 81 11/26/16 00:00 40 11/26/16 00:00 98.8 76 19 146/78 100 Mechanical Ventilator 40 11/25/16 23:30 75 18 40 11/25/16 23:00 75 18 136/70 100 Mechanical Ventilator 40 11/25/16 22:00 75 18 142/71 100 Mechanical Ventilator 40 11/25/16 21:30 74 18 40 11/25/16 21:00 72 18 139/80 100 Mechanical Ventilator 40 11/25/16 20:00 74 11/25/16 20:00 40 11/25/16 20:00 98.6 75 18 142/71 100 Mechanical Ventilator 40 11/25/16 19:30 73 18 40 11/25/16 19:00 76 20 139/74 100 Mechanical Ventilator 40 11/25/16 18:00 84 20 128/69 100 Mechanical Ventilator 40 11/25/16 17:32 132/78 Intake and Output 11/25/16 11/26/16 19:00 07:00 Intake Total 677.5 ml 660 ml Output Total 1210 ml 870 ml Balance -532.5 ml -210 ml Intake Free Water 50 ml 120 ml IV Total 137.5 ml Tube Feeding 390 ml 540 ml Other 100 ml Output Urine Total 1210 ml 870 ml # Bowel Movements 4 2 Laboratory Tests 11/26/16 04:40: White Blood Count 9.8, Red Blood Count 4.42L, Hemoglobin 10.6L, Hematocrit 35.4L , Mean Corpuscular Volume 80, Mean Corpuscular Hemoglobin 23.9L, Mean Corpuscular Hemoglobin Concent 29.8L, Red Cell Distribution Width 17.1H, Platelet Count 410, Mean Platelet Volume 6.6, Neutrophils (%) (Auto) 55.8, Lymphocytes (%) (Auto) 27.5, Monocytes (%) (Auto) 8.3, Eosinophils (%) (Auto) 7.8H, Basophils (%) (Auto) 0.5, Sodium Level 139, Potassium Level 3.5, Chloride Level 97L, Carbon Dioxide Level 29, Anion Gap 13, Blood Urea Nitrogen 27H, Creatinine 1.4H, Estimat Glomerular Filtration Rate , Glucose Level 129H, Calcium Level 9.7, Phosphorus Level 3.6, Magnesium Level 1.8, Total Bilirubin 0.4, Aspartate Amino Transf (AST/SGOT) 19, Alanine Aminotransferase (ALT/SGPT) 17, Alkaline Phosphatase 83, Total Protein 8.0, Albumin 2.6L, Globulin 5.4, Albumin/Globulin Ratio 0.4L 11/26/16 13:25: Arterial Blood pH 7.442, Arterial Blood Partial Pressure CO2 47.0H, Arterial Blood Partial Pressure O2 94.5, Arterial Blood HCO3 31.3H, Arterial Blood Oxygen Saturation 97.3, Arterial Blood Base Excess 6.4, Librado Test Positive Height (Feet): 6 Height (Inches): 1.00 Weight (Pounds): 170 Objective General Appearance: other - Intubated and unresponsive EENT: other - ETT in place Cardiovascular: normal rate, regular rhythm Respiratory/Chest: chest wall non-tender, rhonchi - bilaterally, other - On vent Abdomen: non tender, soft Edema: no edema noted Arm (L), no edema noted Arm (R), no edema noted Leg (L), no edema noted Leg (R), no edema noted Pedal (L), no edema noted Pedal (R) Neurologic: unresponsive AMMY LEMOS Nov 26, 2016 17:11
[2016-11-26] MEDS: Dyna-Hex 2% Top Sol 8oz TOPIC SCH (20:39)
[2016-11-26] MEDS ORDERED: KCl 10% 20 mEq/15ml liquid NG ONE (21:00)
--- NOTE | 2016-11-26 23:00 | Progress Note ---
DATE: 11/26/2016 CARDIOLOGY PROGRESS NOTE SUBJECTIVE: The patient remains in the intensive care unit. He remains on ventilator support. He continues on antibiotic therapy and respiratory hygiene. His monitored rhythm is sinus with rare atrial ectopics. Blood pressure control is overall improved. OBJECTIVE: VITAL SIGNS: Blood pressure 121/84 to 150/84, heart rate 70, and respiratory rate 18. No fevers. LUNGS: Bilateral breath sounds. Scattered rhonchi. HEART: Regular rhythm and rate. Normal S1 and S2. ABDOMEN: Soft. EXTREMITIES: Trace edema. LABORATORY DATA: White count 9.8 and hemoglobin 10.6. Potassium 3.5, BUN 27, and creatinine 1.4. ABG, 7.44, 47, and 94. IMPRESSION: 1. Recovering sepsis status post shock. 2. Respiratory failure. 3. Anemia. 4. Acute renal failure, resolving. 5. Borderline potassium level. 6. Acute on chronic diastolic congestive heart failure. 7. Moderate protein-calorie malnutrition. PLAN: 1. Hold further diuresis at this time. 2. Trend natriuretic peptide assay. 3. Monitor cardiorenal parameters and volume status. 4. Continue current antihypertensive. Titrate as needed. 5. Weaning efforts ongoing. 6. DVT and stress ulcer prophylaxis. 7. Remains in critical condition with guarded prognosis. Riki Francois M.D. DR: BRIONNA JOB#: [id number] CC:
--- NOTE | 2016-11-26 23:00 | Progress Note ---
DATE: 11/25/2016 CARDIOLOGY PROGRESS NOTE SUBJECTIVE: The patient remains on ventilator support. The patient is off pressors. The patient is on nutrition by feeding tube. Monitored rhythm, sinus. OBJECTIVE: VITAL SIGNS: Blood pressure 147/88, pulse 69, and respiratory rate 20. LUNGS: Bilateral breath sounds. Scattered rhonchi. HEART: Regular rhythm and rate. Normal S1 and S2. ABDOMEN: Soft. EXTREMITIES: Trace edema. LABORATORY STUDIES: White count 11.5 and hemoglobin 10.8. Sodium is 140, potassium 3.6, bicarbonate 29, BUN 24, creatinine 1.2, and glucose 118. ABG, 7.47, 46, and 120. IMPRESSION: 1. Respiratory failure status post sepsis with shock. 2. Bjafh-zq-bpasqbj renal failure, resolving. 3. Healthcare-acquired pneumonia. 4. Hypertensive heart disease. 5. Inunh-tq-sihgtuw diastolic congestive heart failure, recovering. PLAN: 1. Continue vent weaning. 2. Continue current antihypertensives and titrate based on blood pressure parameters noted. 3. Periodic diuresis based on clinical parameters. 4. Volume status. 5. Renal function and trending of natriuretic peptide assay. 6. Continues to require intensive care unit care. 7. Remains in critical condition with guarded prognosis. Riki Francois M.D. DR: BRIONNA JOB#: [id number] CC:
[2016-11-27] VITALS (24 sets, daily range): BP systolic 117–161; BP diastolic 68–96
[2016-11-27] MEDS: Piperacillin/Tazobactam 3.375 GM in D5W 110 ML IVPB SCH ×3 (03:38→20:04)
[2016-11-27 05:14] LABS: BASOPHILS % (AUTO) 0.5 % (0.0-2.0); EOSINOPHILS % (AUTO) 3.1 % (0.0-3.0); LYMPHOCYTES % (AUTO) 22.2 % (20.0-45.0); MEAN CORPUSCULAR HEMOGLOBIN 24.6 PG (27.0-31.0); MEAN CORPUSCULAR HGB CONC 30.2 G/DL (32.0-36.0); MEAN CORPUSCULAR VOLUME 81 FL (80-99); MEAN PLATELET VOLUME 6.6 FL (6.5-10.1); MONOCYTES % (AUTO) 8.8 % (1.0-10.0); NEUTROPHILS % (AUTO) 65.5 % (45.0-75.0); PLATELET COUNT 419 K/UL (150-450); RED BLOOD COUNT 4.24 M/UL (4.70-6.10); RED CELL DISTRIBUTION WIDTH 17.6 % (11.6-14.8); WHITE BLOOD COUNT 11.8 K/UL (4.8-10.8)
[2016-11-27] MEDS: HydrALAZINE 25mg tab GT SCH ×3 (05:22→17:41)
[2016-11-27 05:26] LABS: ANION GAP 14 (5-15); CALCIUM 9.8 mg/dL (8.6-10.2); CARBON DIOXIDE 29 mEQ/L (20-30); CHLORIDE 98 mEQ/L (98-107); CREATININE 1.5 mg/dL (0.7-1.2); HEMOLYSIS 0; POTASSIUM 3.8 mEQ/L (3.4-4.9); SODIUM 141 mEQ/L (135-145)
[2016-11-27 06:00] LABS: MAGNESIUM 2.1 mg/dL (1.7-2.5)
[2016-11-27] MEDS: Heparin 5000 units/ml inj SUBQ SCH ×2 (08:32→20:59)
[2016-11-27] MEDS: Vitamin A&D Oint 2oz Tube TOPIC SCH ×2 (08:33→20:58)
--- NOTE | 2016-11-27 09:02 | General Progress Note ---
Assessment/Plan Assessment/Plan (1) Respiratory distress (2) Incubated on Ventilator (3) Septic Shock (4) Sacral decubitus ulcer Pt will be continued on Dilaudid. D/w Dr. Rodríguez and he concurred. Subjective Date patient seen: Nov 27, 2016 Time patient seen: 06:00 - am ROS Limited/Unobtainable: Yes Allergies: Coded Allergies: No Known Allergies (Verified , 01/02/09) Subjective The patient is ICU intubated on vent. No signs of pain or distress at this time. Objective Last 24 Hour Vital Signs Date Time Temp Pulse Resp B/P Pulse Ox O2 Delivery O2 Flow Rate FiO2 11/27/16 08:42 100 11/27/16 08:42 76 30 40 11/27/16 08:33 73 142/78 11/27/16 08:00 40 11/27/16 08:00 72 20 142/78 100 Mechanical Ventilator 40 11/27/16 08:00 86 11/27/16 07:03 82 27 40 11/27/16 07:00 80 21 160/89 100 Mechanical Ventilator 40 11/27/16 06:00 81 21 159/87 100 Mechanical Ventilator 40 11/27/16 05:22 150/80 11/27/16 05:18 77 21 40 11/27/16 05:00 75 20 150/80 100 Mechanical Ventilator 40 11/27/16 04:00 40 11/27/16 04:00 98.1 84 22 147/84 100 Mechanical Ventilator 40 11/27/16 04:00 86 11/27/16 03:17 84 24 40 11/27/16 03:00 86 24 142/78 100 Mechanical Ventilator 40 11/27/16 02:00 85 24 145/81 100 Mechanical Ventilator 40 11/27/16 01:10 87 23 40 11/27/16 01:00 86 24 137/81 100 Mechanical Ventilator 40 11/27/16 00:00 86 11/27/16 00:00 98.1 86 21 152/83 100 Mechanical Ventilator 40 11/27/16 00:00 40 11/26/16 23:52 141/76 11/26/16 23:26 84 25 40 11/26/16 23:00 84 21 141/76 100 Mechanical Ventilator 40 11/26/16 22:00 81 21 138/75 100 Mechanical Ventilator 40 11/26/16 21:13 77 18 40 11/26/16 21:00 80 22 127/74 100 Mechanical Ventilator 40 11/26/16 20:00 98.3 80 21 131/77 100 Mechanical Ventilator 40 11/26/16 20:00 40 11/26/16 20:00 80 11/26/16 19:10 79 18 40 11/26/16 19:00 84 16 145/77 100 Mechanical Ventilator 40 11/26/16 18:00 74 18 137/79 100 Mechanical Ventilator 40 11/26/16 17:53 146/79 11/26/16 17:06 79 20 40 11/26/16 17:00 76 20 146/79 100 Mechanical Ventilator 40 11/26/16 16:00 74 11/26/16 16:00 98.6 74 18 149/91 100 Mechanical Ventilator 40 11/26/16 15:03 72 18 40 11/26/16 15:00 75 18 151/76 100 Mechanical Ventilator 40 11/26/16 14:00 72 18 135/75 100 Mechanical Ventilator 40 11/26/16 13:10 78 22 40 11/26/16 13:00 77 40 139/77 100 Mechanical Ventilator 40 11/26/16 12:40 142/80 11/26/16 12:25 40 11/26/16 12:25 100 11/26/16 12:00 74 11/26/16 12:00 40 11/26/16 12:00 98.5 73 18 121/84 100 Mechanical Ventilator 40 11/26/16 11:23 75 19 40 11/26/16 11:00 71 23 134/70 100 Mechanical Ventilator 40 11/26/16 10:00 70 18 133/77 100 Mechanical Ventilator 40 11/26/16 09:21 82 143/79 11/26/16 09:08 76 19 40 Intake and Output 11/26/16 11/27/16 19:00 07:00 Intake Total 790.0 ml 874.85 ml Output Total 700 ml 690 ml Balance 90.0 ml 184.85 ml IV Total 110.0 ml 164.85 ml Tube Feeding 600 ml 600 ml Other 80 ml 110 ml Output Urine Total 700 ml 690 ml # Bowel Movements 1 3 Laboratory Tests 11/26/16 13:25: Arterial Blood pH 7.442, Arterial Blood Partial Pressure CO2 47.0H, Arterial Blood Partial Pressure O2 94.5, Arterial Blood HCO3 31.3H, Arterial Blood Oxygen Saturation 97.3, Arterial Blood Base Excess 6.4, Librado Test Positive 11/27/16 04:00: White Blood Count 11.8H, Red Blood Count 4.24L, Hemoglobin 10.4L, Hematocrit 34.6L, Mean Corpuscular Volume 81, Mean Corpuscular Hemoglobin 24.6L, Mean Corpuscular Hemoglobin Concent 30.2L, Red Cell Distribution Width 17.6H, Platelet Count 419, Mean Platelet Volume 6.6, Neutrophils (%) (Auto) 65.5, Lymphocytes (%) (Auto) 22.2, Monocytes (%) (Auto) 8.8, Eosinophils (%) (Auto) 3.1H, Basophils (%) (Auto) 0.5, Sodium Level 141, Potassium Level 3.8, Chloride Level 98, Carbon Dioxide Level 29, Anion Gap 14, Blood Urea Nitrogen 34H, Creatinine 1.5H, Estimat Glomerular Filtration Rate , Glucose Level 116H, Calcium Level 9.8, Magnesium Level 2.1, Pro-B-Type Natriuretic Peptide 1149H Height (Feet): 6 Height (Inches): 1.00 Weight (Pounds): 172 Objective General Appearance: other - Intubated and unresponsive EENT: other - ETT in place Cardiovascular: normal rate, regular rhythm Respiratory/Chest: chest wall non-tender, rhonchi - bilaterally, other - On vent Abdomen: non tender, soft Edema: no edema noted Arm (L), no edema noted Arm (R), no edema noted Leg (L), no edema noted Leg (R), no edema noted Pedal (L), no edema noted Pedal (R) Neurologic: unresponsive AMMY LEMOS N. P.Juan Nov 27, 2016 09:02
--- NOTE | 2016-11-27 10:21 | Pulmonolgy Critical Care Note ---
Critical Care - Asmt/Plan Problems: (1) Respiratory distress (2) Acute encephalopathy (3) HCAP (healthcare-associated pneumonia) (4) Sepsis (5) Anemia (6) Feeding by G-tube Assessment/Plan: no tolerating weaning, will try again, family hesitating to sign the consent for Trach. Respiratory: monitor respiratory rate Cardiac: continue to monitor HR/BP Renal: F/U I&O Infectious Disease: check cultures, continue antibiotics Gastrointestinal: continue feedings/current rate Endocrine: monitor blood sugar, check HgA1C, continue sliding scale insulin Hematologic: monitor H/H, transfuse if hgb<8.5 Neurologic: PRN Ativan, keep patient comfortable Affect: PRN ativan Prophylaxis: Protonix Disposition: keep in ICU Notes Reviewed: hog driver, cardio Discussed with: nurses, consultants, adult protective caseworkere commerce marketing manager - Objective Last 24 Hour Vital Signs Date Time Temp Pulse Resp B/P Pulse Ox O2 Delivery O2 Flow Rate FiO2 11/27/16 10:00 73 18 143/79 100 Mechanical Ventilator 40 11/27/16 09:02 40 11/27/16 09:00 72 18 117/68 100 Mechanical Ventilator 40 11/27/16 08:42 100 11/27/16 08:42 76 30 40 11/27/16 08:33 73 142/78 11/27/16 08:00 40 11/27/16 08:00 72 20 142/78 100 Mechanical Ventilator 40 11/27/16 08:00 86 11/27/16 07:03 82 27 40 11/27/16 07:00 80 21 160/89 100 Mechanical Ventilator 40 11/27/16 06:00 81 21 159/87 100 Mechanical Ventilator 40 11/27/16 05:22 150/80 11/27/16 05:18 77 21 40 11/27/16 05:00 75 20 150/80 100 Mechanical Ventilator 40 11/27/16 04:00 40 11/27/16 04:00 98.1 84 22 147/84 100 Mechanical Ventilator 40 11/27/16 04:00 86 11/27/16 03:17 84 24 40 11/27/16 03:00 86 24 142/78 100 Mechanical Ventilator 40 11/27/16 02:00 85 24 145/81 100 Mechanical Ventilator 40 11/27/16 01:10 87 23 40 11/27/16 01:00 86 24 137/81 100 Mechanical Ventilator 40 11/27/16 00:00 86 11/27/16 00:00 98.1 86 21 152/83 100 Mechanical Ventilator 40 11/27/16 00:00 40 11/26/16 23:52 141/76 11/26/16 23:26 84 25 40 11/26/16 23:00 84 21 141/76 100 Mechanical Ventilator 40 11/26/16 22:00 81 21 138/75 100 Mechanical Ventilator 40 11/26/16 21:13 77 18 40 11/26/16 21:00 80 22 127/74 100 Mechanical Ventilator 40 11/26/16 20:00 98.3 80 21 131/77 100 Mechanical Ventilator 40 11/26/16 20:00 40 11/26/16 20:00 80 11/26/16 19:10 79 18 40 11/26/16 19:00 84 16 145/77 100 Mechanical Ventilator 40 11/26/16 18:00 74 18 137/79 100 Mechanical Ventilator 40 11/26/16 17:53 146/79 11/26/16 17:06 79 20 40 11/26/16 17:00 76 20 146/79 100 Mechanical Ventilator 40 11/26/16 16:00 74 11/26/16 16:00 98.6 74 18 149/91 100 Mechanical Ventilator 40 11/26/16 15:03 72 18 40 11/26/16 15:00 75 18 151/76 100 Mechanical Ventilator 40 11/26/16 14:00 72 18 135/75 100 Mechanical Ventilator 40 11/26/16 13:10 78 22 40 11/26/16 13:00 77 40 139/77 100 Mechanical Ventilator 40 11/26/16 12:40 142/80 11/26/16 12:25 40 11/26/16 12:25 100 11/26/16 12:00 74 11/26/16 12:00 40 11/26/16 12:00 98.5 73 18 121/84 100 Mechanical Ventilator 40 11/26/16 11:23 75 19 40 11/26/16 11:00 71 23 134/70 100 Mechanical Ventilator 40 Status: awake Condition: critical HEENT: atraumatic Neck: full ROM Heart: HR/BP unstable, regular Abdomen: non-tender, active bowel sounds Extremities: edema Decubiti: location Critical Care - Subjective ROS Limited/Unobtainable: Yes ICU Day: 12 Interval Events: try weaning again FI02: 40 Vent Support Breath Rate: 18 Vent Support Mode: IMV/SIMV Vent Tidal Volume: 500 Sputum Amount: Large PEEP: 5.0 PIP: 22 Tube Feeding Amount: 50 I&O: Intake and Output 11/26/16 11/27/16 19:00 07:00 Intake Total 790.0 ml 902.35 ml Output Total 700 ml 690 ml Balance 90.0 ml 212.35 ml IV Total 110.0 ml 192.35 ml Tube Feeding 600 ml 600 ml Other 80 ml 110 ml Output Urine Total 700 ml 690 ml # Bowel Movements 1 3 CXR: ET in good position ET-Tube: 8.0 ET Position: 24 MARY ACBELLO Nov 27, 2016 10:21
--- NOTE | 2016-11-27 10:24 | Pulmonolgy Critical Care Note ---
Critical Care - Asmt/Plan Problems: (1) Respiratory distress (2) Acute encephalopathy (3) HCAP (healthcare-associated pneumonia) (4) Sepsis (5) Anemia (6) Feeding by G-tube Respiratory: monitor respiratory rate, adjust FIO2, CXR Cardiac: continue to monitor HR/BP Renal: F/U I&O, keep IV fluid Infectious Disease: check cultures Gastrointestinal: continue feedings/current rate, hold feedings Endocrine: check TSH, check HgA1C, continue sliding scale insulin Hematologic: transfuse if hgb<8.5 Neurologic: PRN Ativan, PRN Morphine, keep patient comfortable Affect: PRN ativan Prophylaxis: Protonix Notes Reviewed: pharmaceutical assistant, cardio, ID Critical Care - Objective Last 24 Hour Vital Signs Date Time Temp Pulse Resp B/P Pulse Ox O2 Delivery O2 Flow Rate FiO2 11/27/16 10:00 73 18 143/79 100 Mechanical Ventilator 40 11/27/16 09:02 40 11/27/16 09:00 72 18 117/68 100 Mechanical Ventilator 40 11/27/16 08:42 100 11/27/16 08:42 76 30 40 11/27/16 08:33 73 142/78 11/27/16 08:00 40 11/27/16 08:00 72 20 142/78 100 Mechanical Ventilator 40 11/27/16 08:00 86 11/27/16 07:03 82 27 40 11/27/16 07:00 80 21 160/89 100 Mechanical Ventilator 40 11/27/16 06:00 81 21 159/87 100 Mechanical Ventilator 40 11/27/16 05:22 150/80 11/27/16 05:18 77 21 40 11/27/16 05:00 75 20 150/80 100 Mechanical Ventilator 40 11/27/16 04:00 40 11/27/16 04:00 98.1 84 22 147/84 100 Mechanical Ventilator 40 11/27/16 04:00 86 11/27/16 03:17 84 24 40 11/27/16 03:00 86 24 142/78 100 Mechanical Ventilator 40 11/27/16 02:00 85 24 145/81 100 Mechanical Ventilator 40 11/27/16 01:10 87 23 40 11/27/16 01:00 86 24 137/81 100 Mechanical Ventilator 40 11/27/16 00:00 86 11/27/16 00:00 98.1 86 21 152/83 100 Mechanical Ventilator 40 11/27/16 00:00 40 11/26/16 23:52 141/76 11/26/16 23:26 84 25 40 11/26/16 23:00 84 21 141/76 100 Mechanical Ventilator 40 11/26/16 22:00 81 21 138/75 100 Mechanical Ventilator 40 11/26/16 21:13 77 18 40 11/26/16 21:00 80 22 127/74 100 Mechanical Ventilator 40 11/26/16 20:00 98.3 80 21 131/77 100 Mechanical Ventilator 40 11/26/16 20:00 40 11/26/16 20:00 80 11/26/16 19:10 79 18 40 11/26/16 19:00 84 16 145/77 100 Mechanical Ventilator 40 11/26/16 18:00 74 18 137/79 100 Mechanical Ventilator 40 11/26/16 17:53 146/79 11/26/16 17:06 79 20 40 11/26/16 17:00 76 20 146/79 100 Mechanical Ventilator 40 11/26/16 16:00 74 11/26/16 16:00 98.6 74 18 149/91 100 Mechanical Ventilator 40 11/26/16 15:03 72 18 40 11/26/16 15:00 75 18 151/76 100 Mechanical Ventilator 40 11/26/16 14:00 72 18 135/75 100 Mechanical Ventilator 40 11/26/16 13:10 78 22 40 11/26/16 13:00 77 40 139/77 100 Mechanical Ventilator 40 11/26/16 12:40 142/80 11/26/16 12:25 40 11/26/16 12:25 100 11/26/16 12:00 74 11/26/16 12:00 40 11/26/16 12:00 98.5 73 18 121/84 100 Mechanical Ventilator 40 11/26/16 11:23 75 19 40 11/26/16 11:00 71 23 134/70 100 Mechanical Ventilator 40 Status: awake Condition: critical HEENT: atraumatic Neck: full ROM Lungs: chest wall tender Heart: HR/BP stable, HR/BP unstable, regular Abdomen: non-tender, active bowel sounds Extremities: no C/C/E, edema Critical Care - Subjective ROS Limited/Unobtainable: Yes ICU Day: 13 Interval Events: failed weaning again, awaiting family decision Condition: critical FI02: 40 Vent Support Breath Rate: 18 Vent Support Mode: IMV/SIMV Vent Tidal Volume: 500 Sputum Amount: Large PEEP: 5.0 PIP: 22 Tube Feeding Amount: 50 I&O: Intake and Output 11/26/16 11/27/16 19:00 07:00 Intake Total 790.0 ml 902.35 ml Output Total 700 ml 690 ml Balance 90.0 ml 212.35 ml IV Total 110.0 ml 192.35 ml Tube Feeding 600 ml 600 ml Other 80 ml 110 ml Output Urine Total 700 ml 690 ml # Bowel Movements 1 3 CXR: no change ET-Tube: 8.0 ET Position: 24 Labs: Laboratory Tests Test 11/26/16 13:25 11/27/16 04:00 Arterial Blood pH 7.442 (7.350-7.450) Arterial Blood Partial Pressure CO2 47.0 mmHg (35.0-45.0) H Arterial Blood Partial Pressure O2 94.5 mmHg (75.0-100.0) Arterial Blood HCO3 31.3 mmol/L (22.0-26.0) H Arterial Blood Oxygen Saturation 97.3 % (92.0-98.0) Arterial Blood Base Excess 6.4 Librado Test Positive White Blood Count 11.8 K/UL (4.8-10.8) H Red Blood Count 4.24 M/UL (4.70-6.10) L Hemoglobin 10.4 G/DL (14.2-18.0) L Hematocrit 34.6 % (42.0-52.0) L Mean Corpuscular Volume 81 FL (80-99) Mean Corpuscular Hemoglobin 24.6 PG (27.0-31.0) L Mean Corpuscular Hemoglobin Concent 30.2 G/DL (32.0-36.0) L Red Cell Distribution Width 17.6 % (11.6-14.8) H Platelet Count 419 K/UL (150-450) Mean Platelet Volume 6.6 FL (6.5-10.1) Neutrophils (%) (Auto) 65.5 % (45.0-75.0) Lymphocytes (%) (Auto) 22.2 % (20.0-45.0) Monocytes (%) (Auto) 8.8 % (1.0-10.0) Eosinophils (%) (Auto) 3.1 % (0.0-3.0) H Basophils (%) (Auto) 0.5 % (0.0-2.0) Sodium Level 141 mEQ/L (135-145) Potassium Level 3.8 mEQ/L (3.4-4.9) Chloride Level 98 mEQ/L (98-107) Carbon Dioxide Level 29 mEQ/L (20-30) Anion Gap 14 (5-15) Blood Urea Nitrogen 34 mg/dL (7-23) H Creatinine 1.5 mg/dL (0.7-1.2) H Estimat Glomerular Filtration Rate mL/min (>60) Glucose Level 116 mg/dL (74-106) H Calcium Level 9.8 mg/dL (8.6-10.2) Magnesium Level 2.1 mg/dL (1.7-2.5) Pro-B-Type Natriuretic Peptide 1149 pg/mL (0-450) H MARY CABELLO Nov 27, 2016 10:24
--- NOTE | 2016-11-27 14:05 | GI Progress Note ---
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 Taveras. Assessment/Plan GT site care daily/prn GTFs per dietary, tolerating OB stool r/o GI bleed uncollected stable H&H, transfuse prn Prevacid GT abx fu labs Subjective Subjective limited Objective Last 24 Hour Vital Signs Date Time Temp Pulse Resp B/P Pulse Ox O2 Delivery O2 Flow Rate FiO2 11/27/16 14:00 73 23 132/84 100 Mechanical Ventilator 40 11/27/16 13:26 77 20 40 11/27/16 13:00 73 23 130/80 100 Mechanical Ventilator 40 11/27/16 13:00 76 11/27/16 12:14 121/91 11/27/16 12:00 72 23 133/80 100 Mechanical Ventilator 40 11/27/16 11:00 72 18 131/73 100 Mechanical Ventilator 40 11/27/16 11:00 40 11/27/16 10:45 71 16 40 11/27/16 10:00 73 18 143/79 100 Mechanical Ventilator 40 11/27/16 09:02 40 11/27/16 09:00 72 18 117/68 100 Mechanical Ventilator 40 11/27/16 08:42 100 11/27/16 08:42 76 30 40 11/27/16 08:33 73 142/78 11/27/16 08:00 40 11/27/16 08:00 98.2 72 20 142/78 100 Mechanical Ventilator 40 11/27/16 08:00 86 11/27/16 07:03 82 27 40 11/27/16 07:00 80 21 160/89 100 Mechanical Ventilator 40 11/27/16 06:00 81 21 159/87 100 Mechanical Ventilator 40 11/27/16 05:22 150/80 11/27/16 05:18 77 21 40 11/27/16 05:00 75 20 150/80 100 Mechanical Ventilator 40 11/27/16 04:00 40 11/27/16 04:00 98.1 84 22 147/84 100 Mechanical Ventilator 40 11/27/16 04:00 86 11/27/16 03:17 84 24 40 11/27/16 03:00 86 24 142/78 100 Mechanical Ventilator 40 11/27/16 02:00 85 24 145/81 100 Mechanical Ventilator 40 11/27/16 01:10 87 23 40 11/27/16 01:00 86 24 137/81 100 Mechanical Ventilator 40 11/27/16 00:00 86 11/27/16 00:00 98.1 86 21 152/83 100 Mechanical Ventilator 40 11/27/16 00:00 40 11/26/16 23:52 141/76 11/26/16 23:26 84 25 40 11/26/16 23:00 84 21 141/76 100 Mechanical Ventilator 40 11/26/16 22:00 81 21 138/75 100 Mechanical Ventilator 40 11/26/16 21:13 77 18 40 11/26/16 21:00 80 22 127/74 100 Mechanical Ventilator 40 11/26/16 20:00 98.3 80 21 131/77 100 Mechanical Ventilator 40 11/26/16 20:00 40 11/26/16 20:00 80 11/26/16 19:10 79 18 40 11/26/16 19:00 84 16 145/77 100 Mechanical Ventilator 40 11/26/16 18:00 74 18 137/79 100 Mechanical Ventilator 40 11/26/16 17:53 146/79 11/26/16 17:06 79 20 40 11/26/16 17:00 76 20 146/79 100 Mechanical Ventilator 40 11/26/16 16:00 74 11/26/16 16:00 98.6 74 18 149/91 100 Mechanical Ventilator 40 11/26/16 15:03 72 18 40 11/26/16 15:00 75 18 151/76 100 Mechanical Ventilator 40 Intake and Output 11/26/16 11/27/16 19:00 07:00 Intake Total 790.0 ml 902.35 ml Output Total 700 ml 690 ml Balance 90.0 ml 212.35 ml IV Total 110.0 ml 192.35 ml Tube Feeding 600 ml 600 ml Other 80 ml 110 ml Output Urine Total 700 ml 690 ml # Bowel Movements 1 3 Laboratory Tests Test 11/27/16 04:00 White Blood Count 11.8 K/UL (4.8-10.8) H Red Blood Count 4.24 M/UL (4.70-6.10) L Hemoglobin 10.4 G/DL (14.2-18.0) L Hematocrit 34.6 % (42.0-52.0) L Mean Corpuscular Volume 81 FL (80-99) Mean Corpuscular Hemoglobin 24.6 PG (27.0-31.0) L Mean Corpuscular Hemoglobin Concent 30.2 G/DL (32.0-36.0) L Red Cell Distribution Width 17.6 % (11.6-14.8) H Platelet Count 419 K/UL (150-450) Mean Platelet Volume 6.6 FL (6.5-10.1) Neutrophils (%) (Auto) 65.5 % (45.0-75.0) Lymphocytes (%) (Auto) 22.2 % (20.0-45.0) Monocytes (%) (Auto) 8.8 % (1.0-10.0) Eosinophils (%) (Auto) 3.1 % (0.0-3.0) H Basophils (%) (Auto) 0.5 % (0.0-2.0) Sodium Level 141 mEQ/L (135-145) Potassium Level 3.8 mEQ/L (3.4-4.9) Chloride Level 98 mEQ/L (98-107) Carbon Dioxide Level 29 mEQ/L (20-30) Anion Gap 14 (5-15) Blood Urea Nitrogen 34 mg/dL (7-23) H Creatinine 1.5 mg/dL (0.7-1.2) H Estimat Glomerular Filtration Rate mL/min (>60) Glucose Level 116 mg/dL (74-106) H Calcium Level 9.8 mg/dL (8.6-10.2) Magnesium Level 2.1 mg/dL (1.7-2.5) Pro-B-Type Natriuretic Peptide 1149 pg/mL (0-450) H Height (Feet): 6 Height (Inches): 1.00 Weight (Pounds): 172 General Appearance: no apparent distress, alert Respiratory/Chest: no respiratory distress, other - mech vent Abdominal Exam: normal bowel sounds, non tender, soft, GT site - c/d/i Delfina Francois N.P. Nov 27, 2016 14:05
--- NOTE | 2016-11-27 14:44 | General Progress Note ---
Assessment/Plan Problem List: (1) Sepsis ICD Codes: A41.9 - Sepsis, unspecified organism SNOMED: 03124795 (2) Septic shock ICD Codes: A41.9 - Sepsis, unspecified organism; R65.21 - Severe sepsis with septic shock SNOMED: 80159698 (3) Renal failure ICD Codes: N19 - Unspecified kidney failure SNOMED: 15190428 Qualifiers: Qualified Codes: N17.9 - Acute kidney failure, unspecified (4) Respiratory distress ICD Codes: R06.00 - Dyspnea, unspecified SNOMED: 334402450 (5) Pneumonia ICD Codes: J18.9 - Pneumonia, unspecified organism SNOMED: 533982240 (6) UTI (urinary tract infection) ICD Codes: N39.0 - Urinary tract infection, site not specified SNOMED: 55049522 Status: stable, progressing, tolerating diet Assessment/Plan vent abx cbc bmp am, wean vent if possible, or trach naima ltach eval Subjective Constitutional: Reports: weakness Allergies: Coded Allergies: No Known Allergies (Verified , 01/02/09) All Systems: reviewed and negative except above Subjective intubated sedated in icu Objective Last 24 Hour Vital Signs Date Time Temp Pulse Resp B/P Pulse Ox O2 Delivery O2 Flow Rate FiO2 11/27/16 14:00 73 23 132/84 100 Mechanical Ventilator 40 11/27/16 13:26 77 20 40 11/27/16 13:00 73 23 130/80 100 Mechanical Ventilator 40 11/27/16 13:00 76 11/27/16 12:14 121/91 11/27/16 12:00 72 23 133/80 100 Mechanical Ventilator 40 11/27/16 11:00 72 18 131/73 100 Mechanical Ventilator 40 11/27/16 11:00 40 11/27/16 10:45 71 16 40 11/27/16 10:00 73 18 143/79 100 Mechanical Ventilator 40 11/27/16 09:02 40 11/27/16 09:00 72 18 117/68 100 Mechanical Ventilator 40 11/27/16 08:42 100 11/27/16 08:42 76 30 40 11/27/16 08:33 73 142/78 11/27/16 08:00 40 11/27/16 08:00 98.2 72 20 142/78 100 Mechanical Ventilator 40 11/27/16 08:00 86 7/12/17 07:03 82 27 40 11/27/16 07:00 80 21 160/89 100 Mechanical Ventilator 40 11/27/16 06:00 81 21 159/87 100 Mechanical Ventilator 40 11/27/16 05:22 150/80 11/27/16 05:18 77 21 40 11/27/16 05:00 75 20 150/80 100 Mechanical Ventilator 40 11/27/16 04:00 40 11/27/16 04:00 98.1 84 22 147/84 100 Mechanical Ventilator 40 11/27/16 04:00 86 11/27/16 03:17 84 24 40 11/27/16 03:00 86 24 142/78 100 Mechanical Ventilator 40 11/27/16 02:00 85 24 145/81 100 Mechanical Ventilator 40 11/27/16 01:10 87 23 40 11/27/16 01:00 86 24 137/81 100 Mechanical Ventilator 40 11/27/16 00:00 86 11/27/16 00:00 98.1 86 21 152/83 100 Mechanical Ventilator 40 11/27/16 00:00 40 11/26/16 23:52 141/76 11/26/16 23:26 84 25 40 11/26/16 23:00 84 21 141/76 100 Mechanical Ventilator 40 11/26/16 22:00 81 21 138/75 100 Mechanical Ventilator 40 11/26/16 21:13 77 18 40 11/26/16 21:00 80 22 127/74 100 Mechanical Ventilator 40 11/26/16 20:00 98.3 80 21 131/77 100 Mechanical Ventilator 40 11/26/16 20:00 40 11/26/16 20:00 80 11/26/16 19:10 79 18 40 11/26/16 19:00 84 16 145/77 100 Mechanical Ventilator 40 11/26/16 18:00 74 18 137/79 100 Mechanical Ventilator 40 11/26/16 17:53 146/79 11/26/16 17:06 79 20 40 11/26/16 17:00 76 20 146/79 100 Mechanical Ventilator 40 11/26/16 16:00 74 11/26/16 16:00 98.6 74 18 149/91 100 Mechanical Ventilator 40 11/26/16 15:03 72 18 40 11/26/16 15:00 75 18 151/76 100 Mechanical Ventilator 40 Intake and Output 11/26/16 11/27/16 19:00 07:00 Intake Total 790.0 ml 902.35 ml Output Total 700 ml 690 ml Balance 90.0 ml 212.35 ml IV Total 110.0 ml 192.35 ml Tube Feeding 600 ml 600 ml Other 80 ml 110 ml Output Urine Total 700 ml 690 ml # Bowel Movements 1 3 Laboratory Tests 11/27/16 04:00: White Blood Count 11.8H, Red Blood Count 4.24L, Hemoglobin 10.4L, Hematocrit 34.6L, Mean Corpuscular Volume 81, Mean Corpuscular Hemoglobin 24.6L, Mean Corpuscular Hemoglobin Concent 30.2L, Red Cell Distribution Width 17.6H, Platelet Count 419, Mean Platelet Volume 6.6, Neutrophils (%) (Auto) 65.5, Lymphocytes (%) (Auto) 22.2, Monocytes (%) (Auto) 8.8, Eosinophils (%) (Auto) 3.1H, Basophils (%) (Auto) 0.5, Sodium Level 141, Potassium Level 3.8, Chloride Level 98, Carbon Dioxide Level 29, Anion Gap 14, Blood Urea Nitrogen 34H, Creatinine 1.5H, Estimat Glomerular Filtration Rate , Glucose Level 116H, Calcium Level 9.8, Magnesium Level 2.1, Pro-B-Type Natriuretic Peptide 1149H Height (Feet): 6 Height (Inches): 1.00 Weight (Pounds): 172 General Appearance: lethargic EENT: normal ENT inspection Neck: normal alignment Cardiovascular: normal peripheral pulses, normal rate, regular rhythm Respiratory/Chest: chest wall non-tender, lungs clear, normal breath sounds Abdomen: normal bowel sounds, non tender, soft Extremities: normal inspection Edema: no edema noted Arm (L), no edema noted Arm (R), no edema noted Leg (L), no edema noted Leg (R), no edema noted Pedal (L), no edema noted Pedal (R), no edema noted Generalized Neurologic: motor weakness Skin: normal pigmentation, warm/dry CASS YANES Nov 27, 2016 14:44
--- NOTE | 2016-11-27 18:19 | Infectious Diseases Prog Note ---
Assessment/Plan Problems: (1) HCAP (healthcare-associated pneumonia) Assessment & Plan: due to MRSA , on oral doxycycline to finish his course of treatment for 14 days total, EOT 11/28/16 (2) Septic shock Assessment & Plan: with proteus mirabilis ESBL + , suspect source is UTI , on zosyn , repeated blood culture to confirm clearance is negative , will treat with zosyn for 14 days . EOT 12/02/16 (3) Respiratory distress Assessment & Plan: due to the above, S/P intubation, continue mechanical ventilation, monitor ABG, titrate oxygen as needed (4) UTI (urinary tract infection) Assessment & Plan: with proteus mirabilis and Providencia stuartii , most likely the source of his sepsis, on zosyn for 14 days (5) Renal failure Assessment & Plan: improving, continue hydration, avoid nephrotoxic meds (6) Hydronephrosis of left kidney Assessment & Plan: with hematuria, most likely due to urethral tear , had urology eval , and no intervention needed for now (7) Ventilator dependent Assessment & Plan: may need tracheostomy , ENT consulted Subjective ROS Limited/Unobtainable: Yes Allergies: Coded Allergies: No Known Allergies (Verified , 01/02/09) Subjective he is still intubated on mechanical ventilation, on weaning trials, awake and alert, off sedation, not in distress, off pressors, afebrile Objective Vital Signs Last 24 Hour Vital Signs Date Time Temp Pulse Resp B/P Pulse Ox O2 Delivery O2 Flow Rate FiO2 11/27/16 18:00 84 18 158/88 100 Mechanical Ventilator 40 11/27/16 17:41 156/81 11/27/16 17:00 73 19 156/81 100 Mechanical Ventilator 40 11/27/16 17:00 74 23 40 11/27/16 16:00 40 11/27/16 16:00 73 11/27/16 16:00 98.1 80 22 147/80 100 Mechanical Ventilator 40 11/27/16 15:00 70 23 139/75 100 Mechanical Ventilator 40 11/27/16 14:42 71 22 40 11/27/16 14:00 40 11/27/16 14:00 73 23 132/84 100 Mechanical Ventilator 40 11/27/16 13:26 77 20 40 11/27/16 13:00 73 23 130/80 100 Mechanical Ventilator 40 11/27/16 13:00 76 11/27/16 12:14 121/91 11/27/16 12:00 98.0 72 23 133/80 100 Mechanical Ventilator 40 11/27/16 12:00 40 11/27/16 11:00 72 18 131/73 100 Mechanical Ventilator 40 11/27/16 11:00 40 11/27/16 10:45 71 16 40 11/27/16 10:00 73 18 143/79 100 Mechanical Ventilator 40 11/27/16 09:02 40 11/27/16 09:00 72 18 117/68 100 Mechanical Ventilator 40 11/27/16 08:42 100 11/27/16 08:42 76 30 40 11/27/16 08:33 73 142/78 11/27/16 08:00 40 11/27/16 08:00 98.2 72 20 142/78 100 Mechanical Ventilator 40 11/27/16 08:00 86 11/27/16 07:03 82 27 40 11/27/16 07:00 80 21 160/89 100 Mechanical Ventilator 40 11/27/16 06:00 81 21 159/87 100 Mechanical Ventilator 40 11/27/16 05:22 150/80 11/27/16 05:18 77 21 40 11/27/16 05:00 75 20 150/80 100 Mechanical Ventilator 40 11/27/16 04:00 40 11/27/16 04:00 98.1 84 22 147/84 100 Mechanical Ventilator 40 11/27/16 04:00 86 11/27/16 03:17 84 24 40 11/27/16 03:00 86 24 142/78 100 Mechanical Ventilator 40 11/27/16 02:00 85 24 145/81 100 Mechanical Ventilator 40 11/27/16 01:10 87 23 40 11/27/16 01:00 86 24 137/81 100 Mechanical Ventilator 40 11/27/16 00:00 86 11/27/16 00:00 98.1 86 21 152/83 100 Mechanical Ventilator 40 11/27/16 00:00 40 11/26/16 23:52 141/76 11/26/16 23:26 84 25 40 11/26/16 23:00 84 21 141/76 100 Mechanical Ventilator 40 11/26/16 22:00 81 21 138/75 100 Mechanical Ventilator 40 11/26/16 21:13 77 18 40 11/26/16 21:00 80 22 127/74 100 Mechanical Ventilator 40 11/26/16 20:00 98.3 80 21 131/77 100 Mechanical Ventilator 40 11/26/16 20:00 40 11/26/16 20:00 80 11/26/16 19:10 79 18 40 11/26/16 19:00 84 16 145/77 100 Mechanical Ventilator 40 Height (Feet): 6 Height (Inches): 1.00 Weight (Pounds): 172 General Appearance: WD/WN, no acute distress HEENT: normocephalic, atraumatic, anicteric, mucous membranes moist, PERRL Respiratory/Chest: chest wall non-tender, normal breath sounds, no respiratory distress, no accessory muscle use, decreased breath sounds, crackles/rales Cardiovascular: normal peripheral pulses, normal rate, regular rhythm, no gallop/murmur, no JVD Abdomen: normal bowel sounds, soft, non tender, no organomegaly, non distended , no mass, no scars Extremities: no cyanosis, no clubbing Skin: no rash, no lesions, ulcers Laboratory Tests Test 11/27/16 04:00 White Blood Count 11.8 K/UL (4.8-10.8) H Red Blood Count 4.24 M/UL (4.70-6.10) L Hemoglobin 10.4 G/DL (14.2-18.0) L Hematocrit 34.6 % (42.0-52.0) L Mean Corpuscular Volume 81 FL (80-99) Mean Corpuscular Hemoglobin 24.6 PG (27.0-31.0) L Mean Corpuscular Hemoglobin Concent 30.2 G/DL (32.0-36.0) L Red Cell Distribution Width 17.6 % (11.6-14.8) H Platelet Count 419 K/UL (150-450) Mean Platelet Volume 6.6 FL (6.5-10.1) Neutrophils (%) (Auto) 65.5 % (45.0-75.0) Lymphocytes (%) (Auto) 22.2 % (20.0-45.0) Monocytes (%) (Auto) 8.8 % (1.0-10.0) Eosinophils (%) (Auto) 3.1 % (0.0-3.0) H Basophils (%) (Auto) 0.5 % (0.0-2.0) Sodium Level 141 mEQ/L (135-145) Potassium Level 3.8 mEQ/L (3.4-4.9) Chloride Level 98 mEQ/L (98-107) Carbon Dioxide Level 29 mEQ/L (20-30) Anion Gap 14 (5-15) Blood Urea Nitrogen 34 mg/dL (7-23) H Creatinine 1.5 mg/dL (0.7-1.2) H Estimat Glomerular Filtration Rate mL/min (>60) Glucose Level 116 mg/dL (74-106) H Calcium Level 9.8 mg/dL (8.6-10.2) Magnesium Level 2.1 mg/dL (1.7-2.5) Pro-B-Type Natriuretic Peptide 1149 pg/mL (0-450) H Current Medications Medications (Trade) Dose Ordered Sig/Keira Route PRN Reason Start Time Stop Time Status Last Admin Dose Admin Acetaminophen (Tylenol) 650 mg Q4H PRN ORAL fever 11/14/16 18:00 12/14/16 17:59 11/17/16 21:35 Amlodipine Besylate (Norvasc) 10 mg DAILY GT 11/18/16 11:00 12/18/16 10:59 11/27/16 08:33 Chlorhexidine Gluconate (Michelle-Hex 2%) 1 applic QHS TOPIC 11/15/16 21:00 12/15/16 20:59 11/26/16 20:39 Doxycycline Monohydrate (Vibramycin) 100 mg Q12HR@0600,1800 GT 11/25/16 18:00 12/02/16 17:59 11/27/16 17:41 Heparin Sodium (Porcine) (Heparin 5000 units/ml) 5,000 units EVERY 12 HOURS SUBQ 11/15/16 21:00 12/15/16 20:59 11/27/16 08:32 Hydralazine HCl (Apresoline) 10 mg Q4H PRN IV SBP > 150 11/18/16 12:15 12/18/16 12:14 11/25/16 02:16 Hydralazine HCl (Apresoline) 25 mg Q6HR GT 11/20/16 10:28 12/19/16 05:59 7/12/17 17:41 Hydromorphone HCl (Dilaudid) 0.5 mg Q4H PRN IVP Severe Pain (Pain Scale 7-10) 11/26/16 10:30 12/03/16 10:29 Lansoprazole (Prevacid) 30 mg DAILY GT 11/19/16 09:00 12/19/16 08:59 11/27/16 08:32 Lorazepam (Ativan 2mg/ml 1ml) 2 mg Q4H PRN IV For Anxiety 11/25/16 21:15 12/02/16 21:14 Ondansetron HCl (Zofran) 4 mg Q6H PRN IVP Nausea & Vomiting 11/14/16 20:00 12/14/16 19:59 Piperacillin Sod/ Tazobactam Sod/ Dextrose (Zosyn/D5W) 110 ml @ 27.5 mls/hr Q8H IVPB 11/17/16 12:00 12/04/16 23:00 11/27/16 12:15 Polyethylene Glycol 17 gm 17 gm DAILYPRN PRN GT Constipation 11/17/16 10:41 12/15/16 13:59 11/21/16 03:06 Vitamin A/Vitamin D (A & D Oint) 1 applic EVERY 12 HOURS TOPIC 11/15/16 21:00 12/15/16 20:59 11/27/16 08:33 Julianna Trejo M.D. Nov 27, 2016 18:19
[2016-11-27] MEDS: Dyna-Hex 2% Top Sol 8oz TOPIC SCH (20:58)
[2016-11-28] VITALS (24 sets, daily range): BP systolic 132–164; BP diastolic 73–96
[2016-11-28] MEDS: HydrALAZINE 25mg tab GT SCH ×5 (00:13→23:40)
[2016-11-28] MEDS: Piperacillin/Tazobactam 3.375 GM in D5W 110 ML IVPB SCH ×3 (03:28→20:23)
[2016-11-28 04:22] LABS: BASOPHILS % (AUTO) 0.7 % (0.0-2.0); EOSINOPHILS % (AUTO) 3.1 % (0.0-3.0); LYMPHOCYTES % (AUTO) 24.9 % (20.0-45.0); MEAN CORPUSCULAR HEMOGLOBIN 24.5 PG (27.0-31.0); MEAN CORPUSCULAR HGB CONC 30.1 G/DL (32.0-36.0); MEAN CORPUSCULAR VOLUME 82 FL (80-99); MEAN PLATELET VOLUME 6.3 FL (6.5-10.1); MONOCYTES % (AUTO) 8.5 % (1.0-10.0); NEUTROPHILS % (AUTO) 62.9 % (45.0-75.0); PLATELET COUNT 412 K/UL (150-450); RED CELL DISTRIBUTION WIDTH 17.7 % (11.6-14.8); WHITE BLOOD COUNT 10.3 K/UL (4.8-10.8)
[2016-11-28 04:44] LABS: ALANINE AMINOTRANSFERASE 14 U/L (3-41); ALBUMIN/GLOBULIN RATIO 0.5 (1.0-2.7); ANION GAP 12 (5-15); ASPARTATE AMINO TRANSFERASE 18 U/L (5-40); CALCIUM 9.6 mg/dL (8.6-10.2); CARBON DIOXIDE 30 mEQ/L (20-30); CHLORIDE 100 mEQ/L (98-107); CREATININE 1.5 mg/dL (0.7-1.2); HEMOLYSIS 0; POTASSIUM 3.6 mEQ/L (3.4-4.9); SODIUM 142 mEQ/L (135-145)
[2016-11-28] MEDS: Heparin 5000 units/ml inj SUBQ SCH ×2 (08:26→20:48)
[2016-11-28] MEDS: Vitamin A&D Oint 2oz Tube TOPIC SCH ×2 (08:26→20:49)
--- NOTE | 2016-11-28 09:05 | General Progress Note ---
Assessment/Plan Assessment/Plan (1) Respiratory distress (2) Incubated on Ventilator (3) Septic Shock (4) Sacral decubitus ulcer Pt will be continued on Dilaudid. D/w Dr. Rodríguez and he concurred. Subjective Time patient seen: 06:00 - am Allergies: Coded Allergies: No Known Allergies (Verified , 01/02/09) Subjective The patient is ICU still intubated on vent. As per nurse no signs of pain and may be scheduled for trach placement. Objective Last 24 Hour Vital Signs Date Time Temp Pulse Resp B/P Pulse Ox O2 Delivery O2 Flow Rate FiO2 11/28/16 08:44 100 11/28/16 08:38 76 20 40 11/28/16 08:24 81 163/85 11/28/16 08:00 81 11/28/16 08:00 97.9 80 19 163/85 100 Mechanical Ventilator 40 11/28/16 08:00 40 11/28/16 07:00 82 19 150/87 100 Mechanical Ventilator 40 11/28/16 06:33 73 23 40 11/28/16 06:18 163/81 11/28/16 06:00 78 18 163/81 100 Mechanical Ventilator 40 11/28/16 05:00 75 20 150/92 100 Mechanical Ventilator 40 11/28/16 04:52 76 22 40 11/28/16 04:00 40 11/28/16 04:00 97.7 76 19 163/88 100 Mechanical Ventilator 40 11/28/16 04:00 76 11/28/16 03:23 78 20 40 11/28/16 03:00 78 19 151/83 100 Mechanical Ventilator 40 11/28/16 02:00 76 18 153/78 100 Mechanical Ventilator 40 11/28/16 01:30 74 22 40 11/28/16 01:00 72 21 151/89 100 Mechanical Ventilator 40 11/28/16 00:13 132/84 11/28/16 00:00 75 11/28/16 00:00 97.5 84 23 132/84 100 Mechanical Ventilator 40 11/28/16 00:00 40 11/27/16 23:30 82 24 40 11/27/16 23:00 84 23 125/96 100 Mechanical Ventilator 40 11/27/16 22:00 76 19 154/76 100 Mechanical Ventilator 40 11/27/16 21:19 79 18 40 11/27/16 21:00 79 18 144/80 100 Mechanical Ventilator 40 11/27/16 20:25 40 11/27/16 20:00 82 11/27/16 20:00 98.4 82 19 136/82 100 Mechanical Ventilator 40 11/27/16 19:30 78 18 40 11/27/16 19:00 75 18 161/84 100 Mechanical Ventilator 40 11/27/16 18:00 84 18 158/88 100 Mechanical Ventilator 40 11/27/16 17:41 156/81 11/27/16 17:00 73 19 156/81 100 Mechanical Ventilator 40 11/27/16 17:00 74 23 40 11/27/16 16:00 40 11/27/16 16:00 73 11/27/16 16:00 98.1 80 22 147/80 100 Mechanical Ventilator 40 11/27/16 15:00 70 23 139/75 100 Mechanical Ventilator 40 11/27/16 14:42 71 22 40 11/27/16 14:00 40 11/27/16 14:00 73 23 132/84 100 Mechanical Ventilator 40 11/27/16 13:26 77 20 40 11/27/16 13:00 73 23 130/80 100 Mechanical Ventilator 40 11/27/16 13:00 76 11/27/16 12:14 121/91 11/27/16 12:00 98.0 72 23 133/80 100 Mechanical Ventilator 40 11/27/16 12:00 40 11/27/16 11:00 72 18 131/73 100 Mechanical Ventilator 40 11/27/16 11:00 40 11/27/16 10:45 71 16 40 11/27/16 10:00 73 18 143/79 100 Mechanical Ventilator 40 Intake and Output 11/27/16 11/28/16 19:00 07:00 Intake Total 767.5 ml 1042.5 ml Output Total 520 ml 940 ml Balance 247.5 ml 102.5 ml Intake Free Water 100 ml 200 ml IV Total 137.5 ml 192.5 ml Tube Feeding 350 ml 650 ml Other 180 ml Output Urine Total 520 ml 940 ml # Bowel Movements 2 2 Laboratory Tests 11/28/16 04:00: White Blood Count 10.3, Red Blood Count 4.10L, Hemoglobin 10.1L, Hematocrit 33.5L, Mean Corpuscular Volume 82, Mean Corpuscular Hemoglobin 24.5L, Mean Corpuscular Hemoglobin Concent 30.1L, Red Cell Distribution Width 17.7H, Platelet Count 412, Mean Platelet Volume 6.3L, Neutrophils (%) (Auto) 62.9, Lymphocytes (%) (Auto) 24.9, Monocytes (%) (Auto) 8.5, Eosinophils (%) (Auto) 3.1H, Basophils (%) (Auto) 0.7, Sodium Level 142, Potassium Level 3.6, Chloride Level 100, Carbon Dioxide Level 30, Anion Gap 12, Blood Urea Nitrogen 33H, Creatinine 1.5H, Estimat Glomerular Filtration Rate , Glucose Level 139H, Calcium Level 9.6, Total Bilirubin 0.3, Aspartate Amino Transf (AST/SGOT) 18, Alanine Aminotransferase (ALT/SGPT) 14, Alkaline Phosphatase 82, Total Protein 8.0, Albumin 2.7L, Globulin 5.3, Albumin/Globulin Ratio 0.5L Height (Feet): 6 Height (Inches): 1.00 Weight (Pounds): 170 Objective General Appearance: other - Intubated and unresponsive EENT: other - ETT in place Cardiovascular: normal rate, regular rhythm Respiratory/Chest: chest wall non-tender, rhonchi - bilaterally, other - On vent Abdomen: non tender, soft Edema: no edema noted Arm (L), no edema noted Arm (R), no edema noted Leg (L), no edema noted Leg (R), no edema noted Pedal (L), no edema noted Pedal (R) Neurologic: unresponsive AMMY LEMOS Nov 28, 2016 09:05
--- NOTE | 2016-11-28 09:42 | Pulmonolgy Critical Care Note ---
Critical Care - Asmt/Plan Problems: (1) Respiratory distress (2) Acute encephalopathy (3) HCAP (healthcare-associated pneumonia) (4) Sepsis (5) Anemia (6) Feeding by G-tube Respiratory: monitor respiratory rate, adjust FIO2, CXR, other - family agreed with trach, pt will have trach when surgery is available. Cardiac: continue to monitor HR/BP Renal: F/U I&O, keep IV fluid Infectious Disease: check cultures, continue antibiotics Gastrointestinal: continue feedings/current rate, hold feedings Endocrine: monitor blood sugar, check TSH Hematologic: monitor H/H Neurologic: PRN Ativan, PRN Morphine Affect: PRN ativan Prophylaxis: Protonix, Heparin Notes Reviewed: central processing tech, cardio Critical Care - Objective Last 24 Hour Vital Signs Date Time Temp Pulse Resp B/P Pulse Ox O2 Delivery O2 Flow Rate FiO2 11/28/16 09:00 79 20 149/90 100 Mechanical Ventilator 40 11/28/16 08:44 100 11/28/16 08:38 76 20 40 11/28/16 08:24 81 163/85 11/28/16 08:00 81 11/28/16 08:00 97.9 80 19 163/85 100 Mechanical Ventilator 40 11/28/16 08:00 40 11/28/16 07:00 82 19 150/87 100 Mechanical Ventilator 40 11/28/16 06:33 73 23 40 11/28/16 06:18 163/81 11/28/16 06:00 78 18 163/81 100 Mechanical Ventilator 40 11/28/16 05:00 75 20 150/92 100 Mechanical Ventilator 40 11/28/16 04:52 76 22 40 11/28/16 04:00 40 11/28/16 04:00 97.7 76 19 163/88 100 Mechanical Ventilator 40 11/28/16 04:00 76 11/28/16 03:23 78 20 40 11/28/16 03:00 78 19 151/83 100 Mechanical Ventilator 40 11/28/16 02:00 76 18 153/78 100 Mechanical Ventilator 40 11/28/16 01:30 74 22 40 11/28/16 01:00 72 21 151/89 100 Mechanical Ventilator 40 11/28/16 00:13 132/84 11/28/16 00:00 75 11/28/16 00:00 97.5 84 23 132/84 100 Mechanical Ventilator 40 11/28/16 00:00 40 11/27/16 23:30 82 24 40 11/27/16 23:00 84 23 125/96 100 Mechanical Ventilator 40 11/27/16 22:00 76 19 154/76 100 Mechanical Ventilator 40 11/27/16 21:19 79 18 40 11/27/16 21:00 79 18 144/80 100 Mechanical Ventilator 40 11/27/16 20:25 40 11/27/16 20:00 82 11/27/16 20:00 98.4 82 19 136/82 100 Mechanical Ventilator 40 11/27/16 19:30 78 18 40 11/27/16 19:00 75 18 161/84 100 Mechanical Ventilator 40 11/27/16 18:00 84 18 158/88 100 Mechanical Ventilator 40 11/27/16 17:41 156/81 11/27/16 17:00 73 19 156/81 100 Mechanical Ventilator 40 11/27/16 17:00 74 23 40 11/27/16 16:00 40 11/27/16 16:00 73 11/27/16 16:00 98.1 80 22 147/80 100 Mechanical Ventilator 40 11/27/16 15:00 70 23 139/75 100 Mechanical Ventilator 40 11/27/16 14:42 71 22 40 11/27/16 14:00 40 11/27/16 14:00 73 23 132/84 100 Mechanical Ventilator 40 11/27/16 13:26 77 20 40 11/27/16 13:00 73 23 130/80 100 Mechanical Ventilator 40 11/27/16 13:00 76 11/27/16 12:14 121/91 11/27/16 12:00 98.0 72 23 133/80 100 Mechanical Ventilator 40 11/27/16 12:00 40 11/27/16 11:00 72 18 131/73 100 Mechanical Ventilator 40 11/27/16 11:00 40 11/27/16 10:45 71 16 40 11/27/16 10:00 73 18 143/79 100 Mechanical Ventilator 40 Status: awake Condition: critical Lungs: chest wall tender Heart: HR/BP stable, HR/BP unstable Abdomen: soft, non-tender, feeding tube Extremities: no C/C/E, edema Critical Care - Subjective ROS Limited/Unobtainable: No ICU Day: 14 Intubation Day: 14 Condition: critical EKG Rhythm: Sinus Rhythm FI02: 40 Vent Support Breath Rate: 18 Vent Support Mode: AC Vent Tidal Volume: 500 Sputum Amount: Small PEEP: 5.0 PIP: 19 Tube Feeding Amount: 50 I&O: Intake and Output 11/27/16 11/28/16 19:00 07:00 Intake Total 767.5 ml 1042.5 ml Output Total 520 ml 940 ml Balance 247.5 ml 102.5 ml Intake Free Water 100 ml 200 ml IV Total 137.5 ml 192.5 ml Tube Feeding 350 ml 650 ml Other 180 ml Output Urine Total 520 ml 940 ml # Bowel Movements 2 2 CXR: no change ET-Tube: 8.0 ET Position: 25 Labs: Laboratory Tests Test 11/28/16 04:00 White Blood Count 10.3 K/UL (4.8-10.8) Red Blood Count 4.10 M/UL (4.70-6.10) L Hemoglobin 10.1 G/DL (14.2-18.0) L Hematocrit 33.5 % (42.0-52.0) L Mean Corpuscular Volume 82 FL (80-99) Mean Corpuscular Hemoglobin 24.5 PG (27.0-31.0) L Mean Corpuscular Hemoglobin Concent 30.1 G/DL (32.0-36.0) L Red Cell Distribution Width 17.7 % (11.6-14.8) H Platelet Count 412 K/UL (150-450) Mean Platelet Volume 6.3 FL (6.5-10.1) L Neutrophils (%) (Auto) 62.9 % (45.0-75.0) Lymphocytes (%) (Auto) 24.9 % (20.0-45.0) Monocytes (%) (Auto) 8.5 % (1.0-10.0) Eosinophils (%) (Auto) 3.1 % (0.0-3.0) H Basophils (%) (Auto) 0.7 % (0.0-2.0) Sodium Level 142 mEQ/L (135-145) Potassium Level 3.6 mEQ/L (3.4-4.9) Chloride Level 100 mEQ/L (98-107) Carbon Dioxide Level 30 mEQ/L (20-30) Anion Gap 12 (5-15) Blood Urea Nitrogen 33 mg/dL (7-23) H Creatinine 1.5 mg/dL (0.7-1.2) H Estimat Glomerular Filtration Rate mL/min (>60) Glucose Level 139 mg/dL (74-106) H Calcium Level 9.6 mg/dL (8.6-10.2) Total Bilirubin 0.3 mg/dL (0.0-1.2) Aspartate Amino Transf (AST/SGOT) 18 U/L (5-40) Alanine Aminotransferase (ALT/SGPT) 14 U/L (3-41) Alkaline Phosphatase 82 U/L (40-129) Total Protein 8.0 g/dL (6.6-8.7) Albumin 2.7 g/dL (3.5-5.2) L Globulin 5.3 g/dL Albumin/Globulin Ratio 0.5 (1.0-2.7) L MARY CABELLO Nov 28, 2016 09:42
--- NOTE | 2016-11-28 11:27 | GI Progress Note ---
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 Taveras. Assessment/Plan GT site care daily/prn GTFs per dietary, tolerating OB stool r/o GI bleed uncollected stable H&H, transfuse prn Prevacid GT abx fu labs Subjective Subjective limited Objective Last 24 Hour Vital Signs Date Time Temp Pulse Resp B/P Pulse Ox O2 Delivery O2 Flow Rate FiO2 11/28/16 11:00 72 20 156/81 100 Mechanical Ventilator 40 11/28/16 10:43 78 18 40 11/28/16 10:00 83 19 148/93 100 Mechanical Ventilator 40 11/28/16 09:00 79 20 149/90 100 Mechanical Ventilator 40 11/28/16 08:44 100 11/28/16 08:40 40 11/28/16 08:38 76 20 40 11/28/16 08:24 81 163/85 11/28/16 08:00 81 11/28/16 08:00 97.9 80 19 163/85 100 Mechanical Ventilator 40 11/28/16 08:00 40 11/28/16 07:00 82 19 150/87 100 Mechanical Ventilator 40 11/28/16 06:33 73 23 40 11/28/16 06:18 163/81 11/28/16 06:00 78 18 163/81 100 Mechanical Ventilator 40 11/28/16 05:00 75 20 150/92 100 Mechanical Ventilator 40 11/28/16 04:52 76 22 40 11/28/16 04:00 40 11/28/16 04:00 97.7 76 19 163/88 100 Mechanical Ventilator 40 11/28/16 04:00 76 11/28/16 03:23 78 20 40 11/28/16 03:00 78 19 151/83 100 Mechanical Ventilator 40 11/28/16 02:00 76 18 153/78 100 Mechanical Ventilator 40 11/28/16 01:30 74 22 40 11/28/16 01:00 72 21 151/89 100 Mechanical Ventilator 40 11/28/16 00:13 132/84 11/28/16 00:00 75 11/28/16 00:00 97.5 84 23 132/84 100 Mechanical Ventilator 40 11/28/16 00:00 40 11/27/16 23:30 82 24 40 11/27/16 23:00 84 23 125/96 100 Mechanical Ventilator 40 11/27/16 22:00 76 19 154/76 100 Mechanical Ventilator 40 11/27/16 21:19 79 18 40 11/27/16 21:00 79 18 144/80 100 Mechanical Ventilator 40 11/27/16 20:25 40 11/27/16 20:00 82 11/27/16 20:00 98.4 82 19 136/82 100 Mechanical Ventilator 40 11/27/16 19:30 78 18 40 11/27/16 19:00 75 18 161/84 100 Mechanical Ventilator 40 11/27/16 18:00 84 18 158/88 100 Mechanical Ventilator 40 11/27/16 17:41 156/81 11/27/16 17:00 73 19 156/81 100 Mechanical Ventilator 40 11/27/16 17:00 74 23 40 11/27/16 16:00 40 11/27/16 16:00 73 11/27/16 16:00 98.1 80 22 147/80 100 Mechanical Ventilator 40 11/27/16 15:00 70 23 139/75 100 Mechanical Ventilator 40 11/27/16 14:42 71 22 40 11/27/16 14:00 40 11/27/16 14:00 73 23 132/84 100 Mechanical Ventilator 40 11/27/16 13:26 77 20 40 11/27/16 13:00 73 23 130/80 100 Mechanical Ventilator 40 11/27/16 13:00 76 11/27/16 12:14 121/91 11/27/16 12:00 98.0 72 23 133/80 100 Mechanical Ventilator 40 11/27/16 12:00 40 Intake and Output 11/27/16 11/28/16 19:00 07:00 Intake Total 767.5 ml 1070.0 ml Output Total 520 ml 940 ml Balance 247.5 ml 130.0 ml Intake Free Water 100 ml 200 ml IV Total 137.5 ml 220.0 ml Tube Feeding 350 ml 650 ml Other 180 ml Output Urine Total 520 ml 940 ml # Bowel Movements 2 2 Laboratory Tests Test 11/28/16 04:00 White Blood Count 10.3 K/UL (4.8-10.8) Red Blood Count 4.10 M/UL (4.70-6.10) L Hemoglobin 10.1 G/DL (14.2-18.0) L Hematocrit 33.5 % (42.0-52.0) L Mean Corpuscular Volume 82 FL (80-99) Mean Corpuscular Hemoglobin 24.5 PG (27.0-31.0) L Mean Corpuscular Hemoglobin Concent 30.1 G/DL (32.0-36.0) L Red Cell Distribution Width 17.7 % (11.6-14.8) H Platelet Count 412 K/UL (150-450) Mean Platelet Volume 6.3 FL (6.5-10.1) L Neutrophils (%) (Auto) 62.9 % (45.0-75.0) Lymphocytes (%) (Auto) 24.9 % (20.0-45.0) Monocytes (%) (Auto) 8.5 % (1.0-10.0) Eosinophils (%) (Auto) 3.1 % (0.0-3.0) H Basophils (%) (Auto) 0.7 % (0.0-2.0) Sodium Level 142 mEQ/L (135-145) Potassium Level 3.6 mEQ/L (3.4-4.9) Chloride Level 100 mEQ/L (98-107) Carbon Dioxide Level 30 mEQ/L (20-30) Anion Gap 12 (5-15) Blood Urea Nitrogen 33 mg/dL (7-23) H Creatinine 1.5 mg/dL (0.7-1.2) H Estimat Glomerular Filtration Rate mL/min (>60) Glucose Level 139 mg/dL (74-106) H Calcium Level 9.6 mg/dL (8.6-10.2) Total Bilirubin 0.3 mg/dL (0.0-1.2) Aspartate Amino Transf (AST/SGOT) 18 U/L (5-40) Alanine Aminotransferase (ALT/SGPT) 14 U/L (3-41) Alkaline Phosphatase 82 U/L (40-129) Total Protein 8.0 g/dL (6.6-8.7) Albumin 2.7 g/dL (3.5-5.2) L Globulin 5.3 g/dL Albumin/Globulin Ratio 0.5 (1.0-2.7) L Height (Feet): 6 Height (Inches): 1.00 Weight (Pounds): 170 General Appearance: no apparent distress Cardiovascular: normal rate [facility]: [facility] Ab[facility] Exam: GT site - c/d/i Delfina Francois N.P. Nov 28, 2016 11:27
--- NOTE | 2016-11-28 14:47 | Infectious Diseases Prog Note ---
Assessment/Plan Problems: (1) HCAP (healthcare-associated pneumonia) Assessment & Plan: due to MRSA , on oral doxycycline to finish his course of treatment for 14 days total, EOT 11/28/16 (2) Septic shock Assessment & Plan: with proteus mirabilis ESBL + , suspect source is UTI , on zosyn , repeated blood culture to confirm clearance is negative , will treat with zosyn for 14 days . EOT 12/02/16 (3) Respiratory distress Assessment & Plan: due to the above, S/P intubation, failed multiple attempts to wean him off , om mechanical ventilation, monitor ABG, titrate oxygen as needed (4) UTI (urinary tract infection) Assessment & Plan: with proteus mirabilis and Providencia stuartii , most likely the source of his sepsis, on zosyn for 14 days (5) Renal failure Assessment & Plan: improving, continue hydration, avoid nephrotoxic meds (6) Hydronephrosis of left kidney Assessment & Plan: with hematuria, most likely due to urethral tear , had urology eval , and no intervention needed for now (7) Ventilator dependent Assessment & Plan: may need tracheostomy next week , ENT consulted Subjective ROS Limited/Unobtainable: Yes Allergies: Coded Allergies: No Known Allergies (Verified , 01/02/09) Subjective he failed multiple weaning trials, still intubated on mechanical ventilation, alert, off sedation, not in distress, off pressors, afebrile, needs tracheostomy next week Objective Vital Signs Last 24 Hour Vital Signs Date Time Temp Pulse Resp B/P Pulse Ox O2 Delivery O2 Flow Rate FiO2 11/28/16 14:00 73 19 144/73 100 Mechanical Ventilator 40 11/28/16 13:00 97.5 78 20 155/88 100 Mechanical Ventilator 40 11/28/16 12:38 78 21 40 11/28/16 12:00 80 11/28/16 12:00 80 20 150/80 100 Mechanical Ventilator 40 11/28/16 11:59 40 11/28/16 11:50 156/80 11/28/16 11:00 72 20 156/81 100 Mechanical Ventilator 40 11/28/16 10:43 78 18 40 11/28/16 10:00 83 19 148/93 100 Mechanical Ventilator 40 11/28/16 09:00 79 20 149/90 100 Mechanical Ventilator 40 11/28/16 08:44 100 11/28/16 08:40 40 11/28/16 08:38 76 20 40 11/28/16 08:24 81 163/85 11/28/16 08:00 81 11/28/16 08:00 97.9 80 19 163/85 100 Mechanical Ventilator 40 11/28/16 08:00 40 11/28/16 07:00 82 19 150/87 100 Mechanical Ventilator 40 11/28/16 06:33 73 23 40 11/28/16 06:18 163/81 11/28/16 06:00 78 18 163/81 100 Mechanical Ventilator 40 11/28/16 05:00 75 20 150/92 100 Mechanical Ventilator 40 11/28/16 04:52 76 22 40 11/28/16 04:00 40 11/28/16 04:00 97.7 76 19 163/88 100 Mechanical Ventilator 40 11/28/16 04:00 76 11/28/16 03:23 78 20 40 11/28/16 03:00 78 19 151/83 100 Mechanical Ventilator 40 11/28/16 02:00 76 18 153/78 100 Mechanical Ventilator 40 11/28/16 01:30 74 22 40 11/28/16 01:00 72 21 151/89 100 Mechanical Ventilator 40 11/28/16 00:13 132/84 11/28/16 00:00 75 11/28/16 00:00 97.5 84 23 132/84 100 Mechanical Ventilator 40 11/28/16 00:00 40 11/27/16 23:30 82 24 40 11/27/16 23:00 84 23 125/96 100 Mechanical Ventilator 40 11/27/16 22:00 76 19 154/76 100 Mechanical Ventilator 40 11/27/16 21:19 79 18 40 11/27/16 21:00 79 18 144/80 100 Mechanical Ventilator 40 11/27/16 20:25 40 11/27/16 20:00 82 11/27/16 20:00 98.4 82 19 136/82 100 Mechanical Ventilator 40 11/27/16 19:30 78 18 40 11/27/16 19:00 75 18 161/84 100 Mechanical Ventilator 40 11/27/16 18:00 84 18 158/88 100 Mechanical Ventilator 40 11/27/16 17:41 156/81 11/27/16 17:00 73 19 156/81 100 Mechanical Ventilator 40 11/27/16 17:00 74 23 40 11/27/16 16:00 40 11/27/16 16:00 73 11/27/16 16:00 98.1 80 22 147/80 100 Mechanical Ventilator 40 11/27/16 15:00 70 23 139/75 100 Mechanical Ventilator 40 Height (Feet): 6 Height (Inches): 1.00 Weight (Pounds): 170 General Appearance: WD/WN, no acute distress HEENT: normocephalic, atraumatic, anicteric, mucous membranes moist, PERRL, pharynx normal, supple, no JVD Respiratory/Chest: chest wall non-tender, normal breath sounds, no respiratory distress, no accessory muscle use, decreased breath sounds, crackles/rales Cardiovascular: normal peripheral pulses, normal rate, regular rhythm, no gallop/murmur, no JVD Abdomen: normal bowel sounds, soft, non tender, no organomegaly, non distended , no mass, no scars Extremities: no cyanosis, no clubbing Skin: no rash, no lesions, ulcers Neurologic/Psychiatric: alert, oriented x 3 Lymphatic: no neck adenopathy, no groin adenopathy Musculoskeletal: normal muscle bulk, no effusion Laboratory Tests Test 11/28/16 04:00 White Blood Count 10.3 K/UL (4.8-10.8) Red Blood Count 4.10 M/UL (4.70-6.10) L Hemoglobin 10.1 G/DL (14.2-18.0) L Hematocrit 33.5 % (42.0-52.0) L Mean Corpuscular Volume 82 FL (80-99) Mean Corpuscular Hemoglobin 24.5 PG (27.0-31.0) L Mean Corpuscular Hemoglobin Concent 30.1 G/DL (32.0-36.0) L Red Cell Distribution Width 17.7 % (11.6-14.8) H Platelet Count 412 K/UL (150-450) Mean Platelet Volume 6.3 FL (6.5-10.1) L Neutrophils (%) (Auto) 62.9 % (45.0-75.0) Lymphocytes (%) (Auto) 24.9 % (20.0-45.0) Monocytes (%) (Auto) 8.5 % (1.0-10.0) Eosinophils (%) (Auto) 3.1 % (0.0-3.0) H Basophils (%) (Auto) 0.7 % (0.0-2.0) Sodium Level 142 mEQ/L (135-145) Potassium Level 3.6 mEQ/L (3.4-4.9) Chloride Level 100 mEQ/L (98-107) Carbon Dioxide Level 30 mEQ/L (20-30) Anion Gap 12 (5-15) Blood Urea Nitrogen 33 mg/dL (7-23) H Creatinine 1.5 mg/dL (0.7-1.2) H Estimat Glomerular Filtration Rate mL/min (>60) Glucose Level 139 mg/dL (74-106) H Calcium Level 9.6 mg/dL (8.6-10.2) Total Bilirubin 0.3 mg/dL (0.0-1.2) Aspartate Amino Transf (AST/SGOT) 18 U/L (5-40) Alanine Aminotransferase (ALT/SGPT) 14 U/L (3-41) Alkaline Phosphatase 82 U/L (40-129) Total Protein 8.0 g/dL (6.6-8.7) Albumin 2.7 g/dL (3.5-5.2) L Globulin 5.3 g/dL Albumin/Globulin Ratio 0.5 (1.0-2.7) L Current Medications Medications (Trade) Dose Ordered Sig/Keira Route PRN Reason Start Time Stop Time Status Last Admin Dose Admin Acetaminophen (Tylenol) 650 mg Q4H PRN ORAL fever 11/14/16 18:00 12/14/16 17:59 11/17/16 21:35 Amlodipine Besylate (Norvasc) 10 mg DAILY GT 11/18/16 11:00 12/18/16 10:59 11/28/16 08:24 Chlorhexidine Gluconate (Michelle-Hex 2%) 1 applic QHS TOPIC 11/15/16 21:00 12/15/16 20:59 11/27/16 20:58 Doxycycline Monohydrate (Vibramycin) 100 mg Q12HR@0600,1800 GT 11/25/16 18:00 11/28/16 23:59 11/28/16 06:18 Heparin Sodium (Porcine) (Heparin 5000 units/ml) 5,000 units EVERY 12 HOURS SUBQ 11/15/16 21:00 12/15/16 20:59 11/28/16 08:26 Hydralazine HCl (Apresoline) 10 mg Q4H PRN IV SBP > 150 11/18/16 12:15 12/18/16 12:14 11/25/16 02:16 Hydralazine HCl (Apresoline) 25 mg Q6HR GT 11/20/16 10:28 12/19/16 05:59 11/28/16 11:50 Hydromorphone HCl (Dilaudid) 0.5 mg Q4H PRN IVP Severe Pain (Pain Scale 7-10) 11/26/16 10:30 12/03/16 10:29 Lansoprazole (Prevacid) 30 mg DAILY GT 11/19/16 09:00 12/19/16 08:59 11/28/16 08:25 Lorazepam (Ativan 2mg/ml 1ml) 2 mg Q4H PRN IV For Anxiety 11/25/16 21:15 12/02/16 21:14 Ondansetron HCl (Zofran) 4 mg Q6H PRN IVP Nausea & Vomiting 11/14/16 20:00 12/14/16 19:59 Piperacillin Sod/ Tazobactam Sod/ Dextrose (Zosyn/D5W) 110 ml @ 27.5 mls/hr Q8H IVPB 11/17/16 12:00 12/04/16 23:00 11/28/16 11:51 Polyethylene Glycol 17 gm 17 gm DAILYPRN PRN GT Constipation 11/17/16 10:41 12/15/16 13:59 11/21/16 03:06 Vitamin A/Vitamin D (A & D Oint) 1 applic EVERY 12 HOURS TOPIC 11/15/16 21:00 12/15/16 20:59 11/28/16 08:26 Julianna Trejo M.D. Nov 28, 2016 14:47
--- NOTE | 2016-11-28 15:20 | General Progress Note ---
Assessment/Plan Problem List: (1) Sepsis ICD Codes: A41.9 - Sepsis, unspecified organism SNOMED: 76775349 (2) Septic shock ICD Codes: A41.9 - Sepsis, unspecified organism; R65.21 - Severe sepsis with septic shock SNOMED: 25251380 (3) Renal failure ICD Codes: N19 - Unspecified kidney failure SNOMED: 98372728 Qualifiers: Qualified Codes: N17.9 - Acute kidney failure, unspecified (4) Respiratory distress ICD Codes: R06.00 - Dyspnea, unspecified SNOMED: 554761731 (5) Pneumonia ICD Codes: J18.9 - Pneumonia, unspecified organism SNOMED: 227112536 (6) UTI (urinary tract infection) ICD Codes: N39.0 - Urinary tract infection, site not specified SNOMED: 07986305 Status: unchanged Assessment/Plan vent abx cbc bmp am, wean vent if possible, or trach naima ltach eval Subjective Constitutional: Reports: weakness Allergies: Coded Allergies: No Known Allergies (Verified , 01/02/09) All Systems: reviewed and negative except above Subjective intubated sedated in icu Objective Last 24 Hour Vital Signs Date Time Temp Pulse Resp B/P Pulse Ox O2 Delivery O2 Flow Rate FiO2 11/28/16 15:00 76 20 151/88 100 Mechanical Ventilator 40 11/28/16 14:00 73 19 144/73 100 Mechanical Ventilator 40 11/28/16 13:00 97.5 78 20 155/88 100 Mechanical Ventilator 40 11/28/16 12:38 78 21 40 11/28/16 12:00 80 11/28/16 12:00 80 20 150/80 100 Mechanical Ventilator 40 11/28/16 11:59 40 11/28/16 11:50 156/80 11/28/16 11:00 72 20 156/81 100 Mechanical Ventilator 40 11/28/16 10:43 78 18 40 11/28/16 10:00 83 19 148/93 100 Mechanical Ventilator 40 11/28/16 09:00 79 20 149/90 100 Mechanical Ventilator 40 11/28/16 08:44 100 11/28/16 08:40 40 11/28/16 08:38 76 20 40 11/28/16 08:24 81 163/85 11/28/16 08:00 81 11/28/16 08:00 97.9 80 19 163/85 100 Mechanical Ventilator 40 11/28/16 08:00 40 11/28/16 07:00 82 19 150/87 100 Mechanical Ventilator 40 11/28/16 06:33 73 23 40 11/28/16 06:18 163/81 11/28/16 06:00 78 18 163/81 100 Mechanical Ventilator 40 11/28/16 05:00 75 20 150/92 100 Mechanical Ventilator 40 11/28/16 04:52 76 22 40 11/28/16 04:00 40 11/28/16 04:00 97.7 76 19 163/88 100 Mechanical Ventilator 40 11/28/16 04:00 76 11/28/16 03:23 78 20 40 11/28/16 03:00 78 19 151/83 100 Mechanical Ventilator 40 11/28/16 02:00 76 18 153/78 100 Mechanical Ventilator 40 11/28/16 01:30 74 22 40 11/28/16 01:00 72 21 151/89 100 Mechanical Ventilator 40 11/28/16 00:13 132/84 11/28/16 00:00 75 11/28/16 00:00 97.5 84 23 132/84 100 Mechanical Ventilator 40 11/28/16 00:00 40 11/27/16 23:30 82 24 40 11/27/16 23:00 84 23 125/96 100 Mechanical Ventilator 40 11/27/16 22:00 76 19 154/76 100 Mechanical Ventilator 40 11/27/16 21:19 79 18 40 11/27/16 21:00 79 18 144/80 100 Mechanical Ventilator 40 11/27/16 20:25 40 11/27/16 20:00 82 11/27/16 20:00 98.4 82 19 136/82 100 Mechanical Ventilator 40 11/27/16 19:30 78 18 40 11/27/16 19:00 75 18 161/84 100 Mechanical Ventilator 40 11/27/16 18:00 84 18 158/88 100 Mechanical Ventilator 40 11/27/16 17:41 156/81 11/27/16 17:00 73 19 156/81 100 Mechanical Ventilator 40 11/27/16 17:00 74 23 40 11/27/16 16:00 40 11/27/16 16:00 73 11/27/16 16:00 98.1 80 22 147/80 100 Mechanical Ventilator 40 Intake and Output 11/27/16 11/28/16 19:00 07:00 Intake Total 767.5 ml 1070.0 ml Output Total 520 ml 940 ml Balance 247.5 ml 130.0 ml Intake Free Water 100 ml 200 ml IV Total 137.5 ml 220.0 ml Tube Feeding 350 ml 650 ml Other 180 ml Output Urine Total 520 ml 940 ml # Bowel Movements 2 2 Laboratory Tests 11/28/16 04:00: White Blood Count 10.3, Red Blood Count 4.10L, Hemoglobin 10.1L, Hematocrit 33.5L, Mean Corpuscular Volume 82, Mean Corpuscular Hemoglobin 24.5L, Mean Corpuscular Hemoglobin Concent 30.1L, Red Cell Distribution Width 17.7H, Platelet Count 412, Mean Platelet Volume 6.3L, Neutrophils (%) (Auto) 62.9, Lymphocytes (%) (Auto) 24.9, Monocytes (%) (Auto) 8.5, Eosinophils (%) (Auto) 3.1H, Basophils (%) (Auto) 0.7, Sodium Level 142, Potassium Level 3.6, Chloride Level 100, Carbon Dioxide Level 30, Anion Gap 12, Blood Urea Nitrogen 33H, Creatinine 1.5H, Estimat Glomerular Filtration Rate , Glucose Level 139H, Calcium Level 9.6, Total Bilirubin 0.3, Aspartate Amino Transf (AST/SGOT) 18, Alanine Aminotransferase (ALT/SGPT) 14, Alkaline Phosphatase 82, Total Protein 8.0, Albumin 2.7L, Globulin 5.3, Albumin/Globulin Ratio 0.5L Height (Feet): 6 Height (Inches): 1.00 Weight (Pounds): 170 General Appearance: lethargic EENT: normal ENT inspection Neck: normal alignment Cardiovascular: normal peripheral pulses, normal rate, regular rhythm Respiratory/Chest: chest wall non-tender, lungs clear, normal breath sounds Abdomen: normal bowel sounds Extremities: normal inspection Edema: no edema noted Arm (L), no edema noted Arm (R), no edema noted Leg (L), no edema noted Leg (R), no edema noted Pedal (L), no edema noted Pedal (R), no edema noted Generalized Neurologic: motor weakness Skin: normal pigmentation, warm/dry CASS YANES Nov 28, 2016 15:20
[2016-11-28] MEDS ORDERED: Tubing IV Secondary IV ONE (18:27)
[2016-11-28] MEDS ORDERED: NS 275ml ONE (18:27)
[2016-11-28] MEDS: Dyna-Hex 2% Top Sol 8oz TOPIC SCH (20:49)
[2016-11-29] VITALS (24 sets, daily range): BP systolic 119–167; BP diastolic 58–102
[2016-11-29] MEDS: Piperacillin/Tazobactam 3.375 GM in D5W 110 ML IVPB SCH ×3 (03:37→20:09)
[2016-11-29] MEDS: HydrALAZINE 25mg tab GT SCH ×4 (05:51→23:33)
[2016-11-29 06:13] LABS: BASOPHILS % (AUTO) 0.8 % (0.0-2.0); EOSINOPHILS % (AUTO) 3.2 % (0.0-3.0); LYMPHOCYTES % (AUTO) 28.5 % (20.0-45.0); MEAN CORPUSCULAR HGB CONC 30.5 G/DL (32.0-36.0); MEAN CORPUSCULAR VOLUME 82 FL (80-99); MEAN PLATELET VOLUME 5.9 FL (6.5-10.1); MONOCYTES % (AUTO) 10.2 % (1.0-10.0); NEUTROPHILS % (AUTO) 57.4 % (45.0-75.0); PLATELET COUNT 377 K/UL (150-450); RED CELL DISTRIBUTION WIDTH 17.7 % (11.6-14.8); WHITE BLOOD COUNT 9.3 K/UL (4.8-10.8)
[2016-11-29 06:50] LABS: ALANINE AMINOTRANSFERASE 14 U/L (3-41); ALBUMIN/GLOBULIN RATIO 0.5 (1.0-2.7); ANION GAP 14 (5-15); ASPARTATE AMINO TRANSFERASE 19 U/L (5-40); CALCIUM 9.7 mg/dL (8.6-10.2); CARBON DIOXIDE 28 mEQ/L (20-30); CHLORIDE 101 mEQ/L (98-107); CREATININE 1.3 mg/dL (0.7-1.2); HEMOLYSIS 5; MAGNESIUM 1.9 mg/dL (1.7-2.5); PHOSPHORUS 2.9 mg/dL (2.5-4.8); POTASSIUM 3.6 mEQ/L (3.4-4.9); SODIUM 143 mEQ/L (135-145); TOTAL PROTEIN 7.7 g/dL (6.6-8.7)
[2016-11-29] MEDS: Vitamin A&D Oint 2oz Tube TOPIC SCH ×2 (08:00→20:54)
[2016-11-29 08:16] LABS: ABG ALLEN TEST POSITIVE; ABG BASE EXCESS 6.7; ABG PCO2 43.4 mmHg (35.0-45.0)
[2016-11-29] MEDS: Heparin 5000 units/ml inj SUBQ SCH ×2 (08:28→20:56)
--- NOTE | 2016-11-29 08:53 | General Progress Note ---
Assessment/Plan Assessment/Plan (1) Respiratory distress (2) Incubated on Ventilator (3) Septic Shock (4) Sacral decubitus ulcer Pt will be continued on Dilaudid. D/w Dr. Rodríguez and he concurred. Subjective Date patient seen: Nov 29, 2016 Time patient seen: 06:00 - am ROS Limited/Unobtainable: Yes Allergies: Coded Allergies: No Known Allergies (Verified , 01/02/09) Subjective The patient is intubated on vent still in ICU. No signs of pain at this time. Objective Last 24 Hour Vital Signs Date Time Temp Pulse Resp B/P Pulse Ox O2 Delivery O2 Flow Rate FiO2 11/29/16 08:16 75 151/82 11/29/16 08:00 97.9 80 20 151/82 100 Mechanical Ventilator 40 11/29/16 08:00 40 11/29/16 08:00 80 11/29/16 07:00 68 19 148/78 100 Mechanical Ventilator 40 11/29/16 06:31 70 18 40 11/29/16 06:00 70 18 167/82 100 Mechanical Ventilator 40 11/29/16 05:51 156/83 11/29/16 05:39 69 16 40 11/29/16 05:00 76 22 156/83 100 Mechanical Ventilator 40 11/29/16 04:00 74 11/29/16 04:00 98.6 74 16 149/85 100 Mechanical Ventilator 40 11/29/16 04:00 40 11/29/16 03:28 80 20 40 11/29/16 03:00 74 18 150/82 100 Mechanical Ventilator 40 11/29/16 02:00 72 18 143/75 100 Mechanical Ventilator 40 11/29/16 01:15 75 18 40 11/29/16 01:00 75 18 143/77 100 Mechanical Ventilator 40 11/29/16 00:00 40 11/29/16 00:00 84 11/29/16 00:00 99.6 84 21 154/81 100 Mechanical Ventilator 40 11/28/16 23:40 138/76 11/28/16 23:15 81 21 40 11/28/16 23:00 80 17 138/76 100 Mechanical Ventilator 40 11/28/16 22:00 81 19 153/93 99 Mechanical Ventilator 40 11/28/16 21:15 83 24 40 11/28/16 21:00 81 25 163/87 98 Mechanical Ventilator 40 11/28/16 20:00 98.3 79 24 164/87 99 Mechanical Ventilator 40 11/28/16 20:00 79 11/28/16 20:00 40 11/28/16 19:13 91 23 40 11/28/16 19:00 88 22 147/95 100 Mechanical Ventilator 40 11/28/16 18:00 78 20 147/96 100 Mechanical Ventilator 40 11/28/16 17:08 152/86 11/28/16 17:00 76 18 40 11/28/16 17:00 78 19 152/86 100 Mechanical Ventilator 40 11/28/16 16:00 97.5 73 20 148/88 100 Mechanical Ventilator 40 11/28/16 16:00 40 11/28/16 16:00 82 11/28/16 15:37 100 11/28/16 15:00 76 20 151/88 100 Mechanical Ventilator 40 11/28/16 14:30 74 25 40 11/28/16 14:00 73 19 144/73 100 Mechanical Ventilator 40 11/28/16 13:00 97.5 78 20 155/88 100 Mechanical Ventilator 40 11/28/16 12:38 78 21 40 11/28/16 12:00 80 11/28/16 12:00 80 20 150/80 100 Mechanical Ventilator 40 11/28/16 11:59 40 11/28/16 11:50 156/80 11/28/16 11:00 72 20 156/81 100 Mechanical Ventilator 40 11/28/16 10:43 78 18 40 11/28/16 10:00 83 19 148/93 100 Mechanical Ventilator 40 11/28/16 09:00 79 20 149/90 100 Mechanical Ventilator 40 Intake and Output 11/28/16 11/29/16 19:00 07:00 Intake Total 1090.0 ml 940.0 ml Output Total 780 ml 880 ml Balance 310.0 ml 60.0 ml Intake Free Water 240 ml 120 ml IV Total 110.0 ml 220.0 ml Tube Feeding 600 ml 600 ml Other 140 ml Output Urine Total 780 ml 880 ml # Bowel Movements 4 Laboratory Tests 11/29/16 06:00: White Blood Count 9.3, Red Blood Count 4.00L, Hemoglobin 10.0L, Hematocrit 32.7L , Mean Corpuscular Volume 82, Mean Corpuscular Hemoglobin 25.0L, Mean Corpuscular Hemoglobin Concent 30.5L, Red Cell Distribution Width 17.7H, Platelet Count 377, Mean Platelet Volume 5.9L, Neutrophils (%) (Auto) 57.4, Lymphocytes (%) (Auto) 28.5, Monocytes (%) (Auto) 10.2H, Eosinophils (%) (Auto) 3.2H, Basophils (%) (Auto) 0.8, Sodium Level 143, Potassium Level 3.6, Chloride Level 101, Carbon Dioxide Level 28, Anion Gap 14, Blood Urea Nitrogen 30H, Creatinine 1.3H, Estimat Glomerular Filtration Rate , Glucose Level 120H, Calcium Level 9.7, Phosphorus Level 2.9, Magnesium Level 1.9, Total Bilirubin 0.3, Aspartate Amino Transf (AST/SGOT) 19, Alanine Aminotransferase (ALT/SGPT) 14, Alkaline Phosphatase 76, Total Protein 7.7, Albumin 2.6L, Globulin 5.1, Albumin/Globulin Ratio 0.5L 11/29/16 08:00: Arterial Blood pH 7.472H, Arterial Blood Partial Pressure CO2 43.4, Arterial Blood Partial Pressure O2 136.6H, Arterial Blood HCO3 31.0H, Arterial Blood Oxygen Saturation 98.8H, Arterial Blood Base Excess 6.7, Librado Test Positive Height (Feet): 6 Height (Inches): 1.00 Weight (Pounds): 173 Objective General Appearance: other - Intubated and unresponsive EENT: other - ETT in place Cardiovascular: normal rate, regular rhythm Respiratory/Chest: chest wall non-tender, rhonchi - bilaterally, other - On vent Abdomen: non tender, soft Edema: no edema noted Arm (L), no edema noted Arm (R), no edema noted Leg (L), no edema noted Leg (R), no edema noted Pedal (L), no edema noted Pedal (R) Neurologic: unresponsive AMMY LEMOS Nov 29, 2016 08:53
--- NOTE | 2016-11-29 10:39 | Diagnostic Imaging Report ---
Indication: DYSPNEA Technique: One view of the chest Comparison: 11/26/2016 Findings: Stable satisfactory positions of endotracheal tube, right arm PICC. There is increased atelectasis of the left lung base. There may be a small amount of pleural fluid on the left. The lungs appear clear otherwise. The heart is enlarged. 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 Possible new or increased small left pleural effusion. Other stable findings as described
--- NOTE | 2016-11-29 11:35 | GI Progress Note ---
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 Taveras. Assessment/Plan GT site care daily/prn GTFs per dietary, tolerating OB stool r/o GI bleed uncollected stable H&H, transfuse prn Prevacid GT abx fu labs Subjective Subjective limited Objective Last 24 Hour Vital Signs Date Time Temp Pulse Resp B/P Pulse Ox O2 Delivery O2 Flow Rate FiO2 11/29/16 11:29 129/70 11/29/16 11:22 177/86 11/29/16 11:11 77 18 40 11/29/16 11:00 82 21 146/89 100 Mechanical Ventilator 40 11/29/16 10:00 69 21 156/89 100 Mechanical Ventilator 40 11/29/16 09:22 40 11/29/16 09:19 77 18 40 11/29/16 09:00 70 19 146/82 100 Mechanical Ventilator 40 11/29/16 08:16 75 151/82 11/29/16 08:00 97.9 80 20 151/82 100 Mechanical Ventilator 40 11/29/16 08:00 40 11/29/16 08:00 80 11/29/16 07:00 68 19 148/78 100 Mechanical Ventilator 40 11/29/16 06:31 70 18 40 11/29/16 06:00 70 18 167/82 100 Mechanical Ventilator 40 11/29/16 05:51 156/83 11/29/16 05:39 69 16 40 11/29/16 05:00 76 22 156/83 100 Mechanical Ventilator 40 11/29/16 04:00 74 11/29/16 04:00 98.6 74 16 149/85 100 Mechanical Ventilator 40 11/29/16 04:00 40 11/29/16 03:28 80 20 40 11/29/16 03:00 74 18 150/82 100 Mechanical Ventilator 40 11/29/16 02:00 72 18 143/75 100 Mechanical Ventilator 40 11/29/16 01:15 75 18 40 11/29/16 01:00 75 18 143/77 100 Mechanical Ventilator 40 11/29/16 00:00 40 11/29/16 00:00 84 11/29/16 00:00 99.6 84 21 154/81 100 Mechanical Ventilator 40 11/28/16 23:40 138/76 11/28/16 23:15 81 21 40 11/28/16 23:00 80 17 138/76 100 Mechanical Ventilator 40 11/28/16 22:00 81 19 153/93 99 Mechanical Ventilator 40 11/28/16 21:15 83 24 40 11/28/16 21:00 81 25 163/87 98 Mechanical Ventilator 40 11/28/16 20:00 98.3 79 24 164/87 99 Mechanical Ventilator 40 11/28/16 20:00 79 11/28/16 20:00 40 11/28/16 19:13 91 23 40 11/28/16 19:00 88 22 147/95 100 Mechanical Ventilator 40 11/28/16 18:00 78 20 147/96 100 Mechanical Ventilator 40 11/28/16 17:08 152/86 11/28/16 17:00 76 18 40 11/28/16 17:00 78 19 152/86 100 Mechanical Ventilator 40 11/28/16 16:00 97.5 73 20 148/88 100 Mechanical Ventilator 40 11/28/16 16:00 40 11/28/16 16:00 82 11/28/16 15:37 100 11/28/16 15:00 76 20 151/88 100 Mechanical Ventilator 40 11/28/16 14:30 74 25 40 11/28/16 14:00 73 19 144/73 100 Mechanical Ventilator 40 11/28/16 13:00 97.5 78 20 155/88 100 Mechanical Ventilator 40 11/28/16 12:38 78 21 40 11/28/16 12:00 80 11/28/16 12:00 80 20 150/80 100 Mechanical Ventilator 40 11/28/16 11:59 40 11/28/16 11:50 156/80 Intake and Output 11/28/16 11/29/16 19:00 07:00 Intake Total 1090.0 ml 940.0 ml Output Total 780 ml 880 ml Balance 310.0 ml 60.0 ml Intake Free Water 240 ml 120 ml IV Total 110.0 ml 220.0 ml Tube Feeding 600 ml 600 ml Other 140 ml Output Urine Total 780 ml 880 ml # Bowel Movements 4 Laboratory Tests Test 11/29/16 06:00 11/29/16 08:00 White Blood Count 9.3 K/UL (4.8-10.8) Red Blood Count 4.00 M/UL (4.70-6.10) L Hemoglobin 10.0 G/DL (14.2-18.0) L Hematocrit 32.7 % (42.0-52.0) L Mean Corpuscular Volume 82 FL (80-99) Mean Corpuscular Hemoglobin 25.0 PG (27.0-31.0) L Mean Corpuscular Hemoglobin Concent 30.5 G/DL (32.0-36.0) L Red Cell Distribution Width 17.7 % (11.6-14.8) H Platelet Count 377 K/UL (150-450) Mean Platelet Volume 5.9 FL (6.5-10.1) L Neutrophils (%) (Auto) 57.4 % (45.0-75.0) Lymphocytes (%) (Auto) 28.5 % (20.0-45.0) Monocytes (%) (Auto) 10.2 % (1.0-10.0) H Eosinophils (%) (Auto) 3.2 % (0.0-3.0) H Basophils (%) (Auto) 0.8 % (0.0-2.0) Sodium Level 143 mEQ/L (135-145) Potassium Level 3.6 mEQ/L (3.4-4.9) Chloride Level 101 mEQ/L (98-107) Carbon Dioxide Level 28 mEQ/L (20-30) Anion Gap 14 (5-15) Blood Urea Nitrogen 30 mg/dL (7-23) H Creatinine 1.3 mg/dL (0.7-1.2) H Estimat Glomerular Filtration Rate mL/min (>60) Glucose Level 120 mg/dL (74-106) H Calcium Level 9.7 mg/dL (8.6-10.2) Phosphorus Level 2.9 mg/dL (2.5-4.8) Magnesium Level 1.9 mg/dL (1.7-2.5) Total Bilirubin 0.3 mg/dL (0.0-1.2) Aspartate Amino Transf (AST/SGOT) 19 U/L (5-40) Alanine Aminotransferase (ALT/SGPT) 14 U/L (3-41) Alkaline Phosphatase 76 U/L (40-129) Total Protein 7.7 g/dL (6.6-8.7) Albumin 2.6 g/dL (3.5-5.2) L Globulin 5.1 g/dL Albumin/Globulin Ratio 0.5 (1.0-2.7) L Arterial Blood pH 7.472 (7.350-7.450) Arterial Blood Partial Pressure CO2 43.4 mmHg (35.0-45.0) Arterial Blood Partial Pressure O2 136.6 mmHg (75.0-100.0) H Arterial Blood HCO3 31.0 mmol/L (22.0-26.0) H Arterial Blood Oxygen Saturation 98.8 % (92.0-98.0) H Arterial Blood Base Excess 6.7 Librado Test Positive Height (Feet): 6 Height (Inches): 1.00 Weight (Pounds): 173 General Appearance: no apparent distress, alert Cardiovascular: normal rate Respiratory/Chest: no respiratory distress, other - mech vent Abdominal Exam: GT site - c/d/i Delfina Francois N.P. Nov 29, 2016 11:35
--- NOTE | 2016-11-29 12:20 | Pulmonolgy Critical Care Note ---
Critical Care - Asmt/Plan Problems: (1) Respiratory distress (2) Acute encephalopathy (3) HCAP (healthcare-associated pneumonia) (4) Sepsis (5) Anemia (6) Feeding by G-tube Respiratory: monitor respiratory rate Cardiac: start pressors, stop pressors Infectious Disease: check cultures Gastrointestinal: continue feedings/current rate, hold feedings Endocrine: check TSH, continue sliding scale insulin Hematologic: transfuse if hgb<8.5 Neurologic: PRN Morphine, keep patient comfortable Affect: PRN ativan Notes Reviewed: cardio, renal Discussed with: nurses, consultants, telephonic nurse case managermanager security - Objective Last 24 Hour Vital Signs Date Time Temp Pulse Resp B/P Pulse Ox O2 Delivery O2 Flow Rate FiO2 11/29/16 12:00 77 11/29/16 12:00 98.1 77 20 138/75 100 Mechanical Ventilator 40 11/29/16 12:00 76 11/29/16 11:29 129/70 11/29/16 11:22 177/86 11/29/16 11:11 77 18 40 11/29/16 11:00 82 21 146/89 100 Mechanical Ventilator 40 11/29/16 10:00 69 21 156/89 100 Mechanical Ventilator 40 11/29/16 09:22 40 11/29/16 09:19 77 18 40 11/29/16 09:00 70 19 146/82 100 Mechanical Ventilator 40 11/29/16 08:16 75 151/82 11/29/16 08:00 97.9 80 20 151/82 100 Mechanical Ventilator 40 11/29/16 08:00 40 11/29/16 08:00 80 11/29/16 07:00 68 19 148/78 100 Mechanical Ventilator 40 11/29/16 06:31 70 18 40 11/29/16 06:00 70 18 167/82 100 Mechanical Ventilator 40 11/29/16 05:51 156/83 11/29/16 05:39 69 16 40 11/29/16 05:00 76 22 156/83 100 Mechanical Ventilator 40 11/29/16 04:00 74 11/29/16 04:00 98.6 74 16 149/85 100 Mechanical Ventilator 40 11/29/16 04:00 40 11/29/16 03:28 80 20 40 11/29/16 03:00 74 18 150/82 100 Mechanical Ventilator 40 11/29/16 02:00 72 18 143/75 100 Mechanical Ventilator 40 11/29/16 01:15 75 18 40 11/29/16 01:00 75 18 143/77 100 Mechanical Ventilator 40 11/29/16 00:00 40 11/29/16 00:00 84 11/29/16 00:00 99.6 84 21 154/81 100 Mechanical Ventilator 40 11/28/16 23:40 138/76 11/28/16 23:15 81 21 40 11/28/16 23:00 80 17 138/76 100 Mechanical Ventilator 40 11/28/16 22:00 81 19 153/93 99 Mechanical Ventilator 40 11/28/16 21:15 83 24 40 11/28/16 21:00 81 25 163/87 98 Mechanical Ventilator 40 11/28/16 20:00 98.3 79 24 164/87 99 Mechanical Ventilator 40 11/28/16 20:00 79 11/28/16 20:00 40 11/28/16 19:13 91 23 40 11/28/16 19:00 88 22 147/95 100 Mechanical Ventilator 40 11/28/16 18:00 78 20 147/96 100 Mechanical Ventilator 40 11/28/16 17:08 152/86 11/28/16 17:00 76 18 40 11/28/16 17:00 78 19 152/86 100 Mechanical Ventilator 40 11/28/16 16:00 97.5 73 20 148/88 100 Mechanical Ventilator 40 11/28/16 16:00 40 11/28/16 16:00 82 11/28/16 15:37 100 11/28/16 15:00 76 20 151/88 100 Mechanical Ventilator 40 11/28/16 14:30 74 25 40 11/28/16 14:00 73 19 144/73 100 Mechanical Ventilator 40 11/28/16 13:00 97.5 78 20 155/88 100 Mechanical Ventilator 40 11/28/16 12:38 78 21 40 Status: awake Condition: critical HEENT: atraumatic Neck: full ROM Lungs: chest wall tender Heart: HR/BP stable, HR/BP unstable Abdomen: soft, non-tender, feeding tube Extremities: edema Critical Care - Subjective ROS Limited/Unobtainable: Yes ICU Day: 15 Intubation Day: 15 Condition: critical EKG Rhythm: Sinus Rhythm FI02: 40 Vent Support Breath Rate: 12 Vent Support Mode: IMV/SIMV Vent Tidal Volume: 500 Sputum Amount: Small PEEP: 5.0 PIP: 24 Tube Feeding Amount: 50 I&O: Intake and Output 11/28/16 11/29/16 19:00 07:00 Intake Total 1090.0 ml 940.0 ml Output Total 780 ml 880 ml Balance 310.0 ml 60.0 ml Intake Free Water 240 ml 120 ml IV Total 110.0 ml 220.0 ml Tube Feeding 600 ml 600 ml Other 140 ml Output Urine Total 780 ml 880 ml # Bowel Movements 4 CXR: no change ET-Tube: 8.0 ET Position: 24 Labs: Laboratory Tests Test 11/29/16 06:00 11/29/16 08:00 White Blood Count 9.3 K/UL (4.8-10.8) Red Blood Count 4.00 M/UL (4.70-6.10) L Hemoglobin 10.0 G/DL (14.2-18.0) L Hematocrit 32.7 % (42.0-52.0) L Mean Corpuscular Volume 82 FL (80-99) Mean Corpuscular Hemoglobin 25.0 PG (27.0-31.0) L Mean Corpuscular Hemoglobin Concent 30.5 G/DL (32.0-36.0) L Red Cell Distribution Width 17.7 % (11.6-14.8) H Platelet Count 377 K/UL (150-450) Mean Platelet Volume 5.9 FL (6.5-10.1) L Neutrophils (%) (Auto) 57.4 % (45.0-75.0) Lymphocytes (%) (Auto) 28.5 % (20.0-45.0) Monocytes (%) (Auto) 10.2 % (1.0-10.0) H Eosinophils (%) (Auto) 3.2 % (0.0-3.0) H Basophils (%) (Auto) 0.8 % (0.0-2.0) Sodium Level 143 mEQ/L (135-145) Potassium Level 3.6 mEQ/L (3.4-4.9) Chloride Level 101 mEQ/L (98-107) Carbon Dioxide Level 28 mEQ/L (20-30) Anion Gap 14 (5-15) Blood Urea Nitrogen 30 mg/dL (7-23) H Creatinine 1.3 mg/dL (0.7-1.2) H Estimat Glomerular Filtration Rate mL/min (>60) Glucose Level 120 mg/dL (74-106) H Calcium Level 9.7 mg/dL (8.6-10.2) Phosphorus Level 2.9 mg/dL (2.5-4.8) Magnesium Level 1.9 mg/dL (1.7-2.5) Total Bilirubin 0.3 mg/dL (0.0-1.2) Aspartate Amino Transf (AST/SGOT) 19 U/L (5-40) Alanine Aminotransferase (ALT/SGPT) 14 U/L (3-41) Alkaline Phosphatase 76 U/L (40-129) Total Protein 7.7 g/dL (6.6-8.7) Albumin 2.6 g/dL (3.5-5.2) L Globulin 5.1 g/dL Albumin/Globulin Ratio 0.5 (1.0-2.7) L Arterial Blood pH 7.472 (7.350-7.450) Arterial Blood Partial Pressure CO2 43.4 mmHg (35.0-45.0) Arterial Blood Partial Pressure O2 136.6 mmHg (75.0-100.0) H Arterial Blood HCO3 31.0 mmol/L (22.0-26.0) H Arterial Blood Oxygen Saturation 98.8 % (92.0-98.0) H Arterial Blood Base Excess 6.7 Librado Test Positive AMRY CABELLO Nov 29, 2016 12:20
--- NOTE | 2016-11-29 13:16 | General Progress Note ---
Assessment/Plan Problem List: (1) Sepsis ICD Codes: A41.9 - Sepsis, unspecified organism SNOMED: 45272645 (2) Septic shock ICD Codes: A41.9 - Sepsis, unspecified organism; R65.21 - Severe sepsis with septic shock SNOMED: 12675329 (3) Renal failure ICD Codes: N19 - Unspecified kidney failure SNOMED: 37993167 Qualifiers: Qualified Codes: N17.9 - Acute kidney failure, unspecified (4) Respiratory distress ICD Codes: R06.00 - Dyspnea, unspecified SNOMED: 850969936 (5) Pneumonia ICD Codes: J18.9 - Pneumonia, unspecified organism SNOMED: 887528999 (6) UTI (urinary tract infection) ICD Codes: N39.0 - Urinary tract infection, site not specified SNOMED: 57950390 Status: stable, progressing, tolerating diet Assessment/Plan vent abx cbc bmp am, wean vent if possible, or trach naima ltach eval Subjective Allergies: Coded Allergies: No Known Allergies (Verified , 01/02/09) All Systems: reviewed and negative except above Subjective intubated sedated in icu Objective Last 24 Hour Vital Signs Date Time Temp Pulse Resp B/P Pulse Ox O2 Delivery O2 Flow Rate FiO2 11/29/16 12:45 40 11/29/16 12:44 83 31 40 11/29/16 12:00 77 11/29/16 12:00 98.1 77 20 138/75 100 Mechanical Ventilator 40 11/29/16 12:00 76 11/29/16 11:29 129/70 11/29/16 11:22 177/86 11/29/16 11:11 77 18 40 11/29/16 11:00 40 11/29/16 11:00 82 21 146/89 100 Mechanical Ventilator 40 11/29/16 10:00 69 21 156/89 100 Mechanical Ventilator 40 11/29/16 09:22 40 11/29/16 09:19 77 18 40 11/29/16 09:00 70 19 146/82 100 Mechanical Ventilator 40 11/29/16 08:16 75 151/82 11/29/16 08:00 97.9 80 20 151/82 100 Mechanical Ventilator 40 11/29/16 08:00 40 11/29/16 08:00 80 11/29/16 07:00 68 19 148/78 100 Mechanical Ventilator 40 11/29/16 06:31 70 18 40 11/29/16 06:00 70 18 167/82 100 Mechanical Ventilator 40 11/29/16 05:51 156/83 11/29/16 05:39 69 16 40 11/29/16 05:00 76 22 156/83 100 Mechanical Ventilator 40 11/29/16 04:00 74 11/29/16 04:00 98.6 74 16 149/85 100 Mechanical Ventilator 40 11/29/16 04:00 40 11/29/16 03:28 80 20 40 11/29/16 03:00 74 18 150/82 100 Mechanical Ventilator 40 11/29/16 02:00 72 18 143/75 100 Mechanical Ventilator 40 11/29/16 01:15 75 18 40 11/29/16 01:00 75 18 143/77 100 Mechanical Ventilator 40 11/29/16 00:00 40 11/29/16 00:00 84 11/29/16 00:00 99.6 84 21 154/81 100 Mechanical Ventilator 40 11/28/16 23:40 138/76 11/28/16 23:15 81 21 40 11/28/16 23:00 80 17 138/76 100 Mechanical Ventilator 40 11/28/16 22:00 81 19 153/93 99 Mechanical Ventilator 40 11/28/16 21:15 83 24 40 11/28/16 21:00 81 25 163/87 98 Mechanical Ventilator 40 11/28/16 20:00 98.3 79 24 164/87 99 Mechanical Ventilator 40 11/28/16 20:00 79 11/28/16 20:00 40 11/28/16 19:13 91 23 40 11/28/16 19:00 88 22 147/95 100 Mechanical Ventilator 40 11/28/16 18:00 78 20 147/96 100 Mechanical Ventilator 40 11/28/16 17:08 152/86 11/28/16 17:00 76 18 40 11/28/16 17:00 78 19 152/86 100 Mechanical Ventilator 40 11/28/16 16:00 97.5 73 20 148/88 100 Mechanical Ventilator 40 11/28/16 16:00 40 11/28/16 16:00 82 11/28/16 15:37 100 11/28/16 15:00 76 20 151/88 100 Mechanical Ventilator 40 11/28/16 14:30 74 25 40 11/28/16 14:00 73 19 144/73 100 Mechanical Ventilator 40 Intake and Output 11/28/16 11/29/16 19:00 07:00 Intake Total 1090.0 ml 940.0 ml Output Total 780 ml 880 ml Balance 310.0 ml 60.0 ml Intake Free Water 240 ml 120 ml IV Total 110.0 ml 220.0 ml Tube Feeding 600 ml 600 ml Other 140 ml Output Urine Total 780 ml 880 ml # Bowel Movements 4 Laboratory Tests 11/29/16 06:00: White Blood Count 9.3, Red Blood Count 4.00L, Hemoglobin 10.0L, Hematocrit 32.7L , Mean Corpuscular Volume 82, Mean Corpuscular Hemoglobin 25.0L, Mean Corpuscular Hemoglobin Concent 30.5L, Red Cell Distribution Width 17.7H, Platelet Count 377, Mean Platelet Volume 5.9L, Neutrophils (%) (Auto) 57.4, Lymphocytes (%) (Auto) 28.5, Monocytes (%) (Auto) 10.2H, Eosinophils (%) (Auto) 3.2H, Basophils (%) (Auto) 0.8, Sodium Level 143, Potassium Level 3.6, Chloride Level 101, Carbon Dioxide Level 28, Anion Gap 14, Blood Urea Nitrogen 30H, Creatinine 1.3H, Estimat Glomerular Filtration Rate , Glucose Level 120H, Calcium Level 9.7, Phosphorus Level 2.9, Magnesium Level 1.9, Total Bilirubin 0.3, Aspartate Amino Transf (AST/SGOT) 19, Alanine Aminotransferase (ALT/SGPT) 14, Alkaline Phosphatase 76, Total Protein 7.7, Albumin 2.6L, Globulin 5.1, Albumin/Globulin Ratio 0.5L 11/29/16 08:00: Arterial Blood pH 7.472H, Arterial Blood Partial Pressure CO2 43.4, Arterial Blood Partial Pressure O2 136.6H, Arterial Blood HCO3 31.0H, Arterial Blood Oxygen Saturation 98.8H, Arterial Blood Base Excess 6.7, Librado Test Positive Height (Feet): 6 Height (Inches): 1.00 Weight (Pounds): 173 General Appearance: lethargic EENT: normal ENT inspection Neck: normal alignment Cardiovascular: normal peripheral pulses, normal rate, regular rhythm Respiratory/Chest: chest wall non-tender, lungs clear, normal breath sounds Abdomen: normal bowel sounds, non tender, soft Extremities: normal inspection Edema: no edema noted Arm (L), no edema noted Arm (R), no edema noted Leg (L), no edema noted Leg (R), no edema noted Pedal (L), no edema noted Pedal (R), no edema noted Generalized Neurologic: motor weakness Skin: normal pigmentation, warm/dry CASS YANES Nov 29, 2016 13:16
--- NOTE | 2016-11-29 16:22 | Infectious Diseases Prog Note ---
Assessment/Plan Problems: (1) HCAP (healthcare-associated pneumonia) Assessment & Plan: due to MRSA , S/P vancomycin and doxycycline for 14 days , improved (2) Septic shock Assessment & Plan: with proteus mirabilis ESBL + , suspect source is UTI , on zosyn , repeated blood culture to confirm clearance is negative , continue zosyn for 14 days . EOT 12/02/16 (3) Respiratory distress Assessment & Plan: due to the above, S/P intubation, failed multiple attempts to wean him off , om mechanical ventilation, monitor ABG, titrate oxygen as needed (4) UTI (urinary tract infection) Assessment & Plan: with proteus mirabilis and Providencia stuartii , most likely the source of his sepsis, on zosyn for 14 days (5) Renal failure Assessment & Plan: improving, continue hydration, avoid nephrotoxic meds (6) Hydronephrosis of left kidney Assessment & Plan: with hematuria, most likely due to urethral tear , had urology eval , and no intervention needed for now (7) Ventilator dependent Assessment & Plan: may need tracheostomy next week , ENT consulted Subjective ROS Limited/Unobtainable: Yes Allergies: Coded Allergies: No Known Allergies (Verified , 01/02/09) Subjective he failed multiple weaning trials, still intubated on mechanical ventilation, alert, off sedation, not in distress, off pressors, afebrile, needs tracheostomy next week Objective Vital Signs Last 24 Hour Vital Signs Date Time Temp Pulse Resp B/P Pulse Ox O2 Delivery O2 Flow Rate FiO2 11/29/16 16:00 74 19 130/88 100 Mechanical Ventilator 40 11/29/16 16:00 73 11/29/16 15:10 81 22 127/90 100 Mechanical Ventilator 40 11/29/16 14:40 83 23 40 11/29/16 14:35 40 11/29/16 14:00 83 22 135/76 100 Mechanical Ventilator 40 11/29/16 13:00 80 21 131/76 100 Mechanical Ventilator 40 11/29/16 12:45 40 11/29/16 12:44 83 31 40 11/29/16 12:00 77 11/29/16 12:00 98.1 77 20 138/75 100 Mechanical Ventilator 40 11/29/16 12:00 76 11/29/16 11:29 129/70 11/29/16 11:22 177/86 7/14/17 11:11 77 18 40 11/29/16 11:00 40 11/29/16 11:00 82 21 146/89 100 Mechanical Ventilator 40 11/29/16 10:00 69 21 156/89 100 Mechanical Ventilator 40 11/29/16 09:22 40 11/29/16 09:19 77 18 40 11/29/16 09:00 70 19 146/82 100 Mechanical Ventilator 40 11/29/16 08:16 75 151/82 11/29/16 08:00 97.9 80 20 151/82 100 Mechanical Ventilator 40 11/29/16 08:00 40 11/29/16 08:00 80 11/29/16 07:00 68 19 148/78 100 Mechanical Ventilator 40 11/29/16 06:31 70 18 40 11/29/16 06:00 70 18 167/82 100 Mechanical Ventilator 40 11/29/16 05:51 156/83 11/29/16 05:39 69 16 40 11/29/16 05:00 76 22 156/83 100 Mechanical Ventilator 40 11/29/16 04:00 74 11/29/16 04:00 98.6 74 16 149/85 100 Mechanical Ventilator 40 11/29/16 04:00 40 11/29/16 03:28 80 20 40 11/29/16 03:00 74 18 150/82 100 Mechanical Ventilator 40 11/29/16 02:00 72 18 143/75 100 Mechanical Ventilator 40 11/29/16 01:15 75 18 40 11/29/16 01:00 75 18 143/77 100 Mechanical Ventilator 40 11/29/16 00:00 40 11/29/16 00:00 84 11/29/16 00:00 99.6 84 21 154/81 100 Mechanical Ventilator 40 11/28/16 23:40 138/76 11/28/16 23:15 81 21 40 11/28/16 23:00 80 17 138/76 100 Mechanical Ventilator 40 11/28/16 22:00 81 19 153/93 99 Mechanical Ventilator 40 11/28/16 21:15 83 24 40 11/28/16 21:00 81 25 163/87 98 Mechanical Ventilator 40 11/28/16 20:00 98.3 79 24 164/87 99 Mechanical Ventilator 40 11/28/16 20:00 79 7/13/17 20:00 40 11/28/16 19:13 91 23 40 11/28/16 19:00 88 22 147/95 100 Mechanical Ventilator 40 11/28/16 18:00 78 20 147/96 100 Mechanical Ventilator 40 11/28/16 17:08 152/86 11/28/16 17:00 76 18 40 11/28/16 17:00 78 19 152/86 100 Mechanical Ventilator 40 Height (Feet): 6 Height (Inches): 1.00 Weight (Pounds): 173 General Appearance: WD/WN, no acute distress HEENT: normocephalic, atraumatic, anicteric, mucous membranes moist, no JVD Respiratory/Chest: chest wall non-tender, normal breath sounds, no respiratory distress, no accessory muscle use, decreased breath sounds, crackles/rales Cardiovascular: normal peripheral pulses, normal rate, regular rhythm, no gallop/murmur, no JVD Abdomen: normal bowel sounds, soft, non tender, no organomegaly, non distended , no mass Extremities: no cyanosis, no clubbing Skin: no rash, no lesions, ulcers Musculoskeletal: normal muscle bulk Laboratory Tests Test 11/29/16 06:00 11/29/16 08:00 White Blood Count 9.3 K/UL (4.8-10.8) Red Blood Count 4.00 M/UL (4.70-6.10) L Hemoglobin 10.0 G/DL (14.2-18.0) L Hematocrit 32.7 % (42.0-52.0) L Mean Corpuscular Volume 82 FL (80-99) Mean Corpuscular Hemoglobin 25.0 PG (27.0-31.0) L Mean Corpuscular Hemoglobin Concent 30.5 G/DL (32.0-36.0) L Red Cell Distribution Width 17.7 % (11.6-14.8) H Platelet Count 377 K/UL (150-450) Mean Platelet Volume 5.9 FL (6.5-10.1) L Neutrophils (%) (Auto) 57.4 % (45.0-75.0) Lymphocytes (%) (Auto) 28.5 % (20.0-45.0) Monocytes (%) (Auto) 10.2 % (1.0-10.0) H Eosinophils (%) (Auto) 3.2 % (0.0-3.0) H Basophils (%) (Auto) 0.8 % (0.0-2.0) Sodium Level 143 mEQ/L (135-145) Potassium Level 3.6 mEQ/L (3.4-4.9) Chloride Level 101 mEQ/L (98-107) Carbon Dioxide Level 28 mEQ/L (20-30) Anion Gap 14 (5-15) Blood Urea Nitrogen 30 mg/dL (7-23) H Creatinine 1.3 mg/dL (0.7-1.2) H Estimat Glomerular Filtration Rate mL/min (>60) Glucose Level 120 mg/dL (74-106) H Calcium Level 9.7 mg/dL (8.6-10.2) Phosphorus Level 2.9 mg/dL (2.5-4.8) Magnesium Level 1.9 mg/dL (1.7-2.5) Total Bilirubin 0.3 mg/dL (0.0-1.2) Aspartate Amino Transf (AST/SGOT) 19 U/L (5-40) Alanine Aminotransferase (ALT/SGPT) 14 U/L (3-41) Alkaline Phosphatase 76 U/L (40-129) Total Protein 7.7 g/dL (6.6-8.7) Albumin 2.6 g/dL (3.5-5.2) L Globulin 5.1 g/dL Albumin/Globulin Ratio 0.5 (1.0-2.7) L Arterial Blood pH 7.472 (7.350-7.450) Arterial Blood Partial Pressure CO2 43.4 mmHg (35.0-45.0) Arterial Blood Partial Pressure O2 136.6 mmHg (75.0-100.0) H Arterial Blood HCO3 31.0 mmol/L (22.0-26.0) H Arterial Blood Oxygen Saturation 98.8 % (92.0-98.0) H Arterial Blood Base Excess 6.7 Librado Test Positive Current Medications Medications (Trade) Dose Ordered Sig/Keira Route PRN Reason Start Time Stop Time Status Last Admin Dose Admin Acetaminophen (Tylenol) 650 mg Q4H PRN ORAL fever 11/14/16 18:00 12/14/16 17:59 11/17/16 21:35 Amlodipine Besylate (Norvasc) 10 mg DAILY GT 11/18/16 11:00 12/18/16 10:59 11/29/16 08:16 Chlorhexidine Gluconate (Michelle-Hex 2%) 1 applic QHS TOPIC 11/15/16 21:00 12/15/16 20:59 11/28/16 20:49 Heparin Sodium (Porcine) (Heparin 5000 units/ml) 5,000 units EVERY 12 HOURS SUBQ 11/15/16 21:00 12/15/16 20:59 11/29/16 08:28 Hydralazine HCl (Apresoline) 10 mg Q4H PRN IV SBP > 150 11/18/16 12:15 12/18/16 12:14 11/29/16 11:22 Hydralazine HCl (Apresoline) 25 mg Q6HR GT 11/20/16 10:28 12/19/16 05:59 11/29/16 11:29 Hydromorphone HCl (Dilaudid) 0.5 mg Q4H PRN IVP Severe Pain (Pain Scale 7-10) 11/26/16 10:30 12/03/16 10:29 Lansoprazole (Prevacid) 30 mg DAILY GT 11/19/16 09:00 12/19/16 08:59 11/29/16 08:16 Lorazepam (Ativan 2mg/ml 1ml) 2 mg Q4H PRN IV For Anxiety 11/25/16 21:15 12/02/16 21:14 Ondansetron HCl (Zofran) 4 mg Q6H PRN IVP Nausea & Vomiting 11/14/16 20:00 12/14/16 19:59 Piperacillin Sod/ Tazobactam Sod/ Dextrose (Zosyn/D5W) 110 ml @ 27.5 mls/hr Q8H IVPB 11/17/16 12:00 12/04/16 23:00 11/29/16 11:30 Polyethylene Glycol 17 gm 17 gm DAILYPRN PRN GT Constipation 11/17/16 10:41 12/15/16 13:59 11/21/16 03:06 Vitamin A/Vitamin D (A & D Oint) 1 applic EVERY 12 HOURS TOPIC 11/15/16 21:00 12/15/16 20:59 11/29/16 08:00 Julianna Trejo M.D. Nov 29, 2016 16:22
--- NOTE | 2016-11-29 18:08 | Wound Care Consultation ---
Wound Assessment Wound Assessment #1: Wound Number: 31 Wound Present on Admission: Yes New Wound: No Status Change of Wound: No Wound Location Body Site Modif: mid Wound Location Body Site: perineal area - tip of penile area. Wound Type: pressure ulcer - mucosal [place] Test: Does not [place] Wound Thickness: Full Thickness - scattered around penile tip. Wound Length: 6.5 - scattered Wound Width: 2.0 - scattered Wound Drainage Description: Serosanguineous Wound Drainage Amount: Scant Wound Drainage Odor: None/Absent Tissue Surrounding Wound: Erythemic Wound General Appearance: Reddened, Draining Wound Assessment #2: Wound Number: #2 Wound Present on Admission: Yes New Wound: No Status Change of Wound: No Wound Location Body Site Modif: mid Wound Location Body Site: sacral Wound Type: pressure ulcer [place] Test: Does not [place] Pressure Ulcer Stage: III Wound Thickness: Full Thickness Wound Length: 3.0 Wound Width: 2.5 Wound Depth: 0.2 Percent of Wound [place]/Red: 100 Wound Drainage Description: Serosanguineous Wound Drainage Amount: Scant Wound Drainage Odor: None/Absent Tissue Surrounding Wound: Macerated Wound General Appearance: Reddened, Draining Wound Comment #1 Sacral pressure ulcer stage III- noted good progress decrease in size, no further deterioration present, current treatment effective. #2 left posterior popliteal dry yellow scab- site still intact and dry. #3 Tip of penile mucosal pressure ulcer due to f/c. #4 Full thickness scar tissue on right dorsal foot, left and right lateral malleolus intact. still intact. #5 dryness to BLE's. Recommendation -Sacral stage III pressure ulcer Cleanse with saline, pat dry, apply Triad cream, cover with bordered gauze daily and PRN soiled/dislodged -Penile mucosal pressure Cleanse with saline, pat dry, apply Triad cream leave area open to air. -Keep clean and dry -Turn and reposition -Optimize nutrition -Heel protector on both heels -A&D ointment on both lower legs -Offload both heels -Low air loss mattress -Assess and f/u with MD for any further changes of condition to skin noted. WILLIAM STRICKLAND RN Nov 29, 2016 18:08
[2016-11-29] MEDS: Dyna-Hex 2% Top Sol 8oz TOPIC SCH (20:53)
[2016-11-29] MEDS: LORazepam Inj 2mg/ml 1ml IV PRN (23:32)
[2016-11-30] VITALS (24 sets, daily range): BP systolic 118–159; BP diastolic 71–93
[2016-11-30] MEDS ORDERED: KCl 10% 20 mEq/15ml liquid NG ONE (01:30)
--- NOTE | 2016-11-30 03:30 | Progress Note ---
DATE: 11/29/2016 CARDIOLOGY PROGRESS NOTE SUBJECTIVE: The patient remains on ventilator support. Weaning efforts are in progress. His blood pressure is labile, but overall control adequate. OBJECTIVE: VITAL SIGNS: Blood pressure range is 129/70 to 177/86, heart rate 69 to 82, and respiratory rate 18 to 21. The patient is afebrile. LUNGS: Coarse breath sounds. Thin trach secretions. HEART: Regular rhythm and rate. Normal S1 and S2. ABDOMEN: Soft. EXTREMITIES: Trace edema. LABORATORY DATA: White count 9.3 and hemoglobin 10. Potassium 3.6, BUN 30, and creatinine 1.3. Albumin 2.6. IMPRESSION: 1. Status post sepsis with shock. 2. Respiratory failure. 3. Acute on chronic diastolic congestive heart failure. 4. Hypertensive heart disease. PLAN: 1. Additional diuresis. 2. Beta-coy added at low-dose. 3. Continue remainder of cardiovascular and antihypertensive regimen without change. 4. Weaning efforts. 5. DVT and stress ulcer prophylaxes. 6. Trend natriuretic peptide assay. Riki Francois M.D. DR: GIUSEPPE JOB#: [id number] CC:
[2016-11-30] MEDS: Piperacillin/Tazobactam 3.375 GM in D5W 110 ML IVPB SCH ×3 (03:55→20:12)
--- NOTE | 2016-11-30 04:45 | Progress Note ---
DATE: 11/27/2016 CARDIOLOGY PROGRESS NOTE SUBJECTIVE: The patient remains in the intensive care unit. Orally intubated and on ventilator support. Monitored rhythm sinus with rare atrial ectopic beats. OBJECTIVE: VITAL SIGNS: Blood pressure 132/84, pulse 73, and respiratory rate 23. NECK: Thin trach secretions. LUNGS: Bilateral breath sounds with rhonchi. HEART: Regular rhythm and rate. Normal S1 and S2. ABDOMEN: Soft. EXTREMITIES: Trace edema. LABORATORY DATA: White count 11.8 and hemoglobin 10.4. BUN 34, creatinine 1.5, and potassium 3.8. IMPRESSION: 1. Respiratory failure. 2. Status post shock due to sepsis. 3. Urinary tract infection. 4. Acute on chronic renal failure with left kidney hydronephrosis. 5. Hypertensive heart disease. 6. Acute on chronic diastolic congestive heart failure. PLAN: 1. Antibiotics per Infectious Disease call center support consultant. 2. Ventilator support with weaning. 3. Skin care. 4. Monitor volume status and cardiorenal parameters. 5. Presently, no additional diuretic therapy is indicated and current antihypertensives are adequate. Riki Francois M.D. DR: BRIONNA JOB#: [id number] CC: SHIRA
[2016-11-30 05:32] LABS: BASOPHILS % (AUTO) 0.8 % (0.0-2.0); EOSINOPHILS % (AUTO) 3.6 % (0.0-3.0); LYMPHOCYTES % (AUTO) 31.5 % (20.0-45.0); MEAN CORPUSCULAR HGB CONC 30.5 G/DL (32.0-36.0); MEAN CORPUSCULAR VOLUME 82 FL (80-99); MEAN PLATELET VOLUME 6.2 FL (6.5-10.1); MONOCYTES % (AUTO) 8.5 % (1.0-10.0); NEUTROPHILS % (AUTO) 55.7 % (45.0-75.0); PLATELET COUNT 430 K/UL (150-450); RED BLOOD COUNT 4.24 M/UL (4.70-6.10); RED CELL DISTRIBUTION WIDTH 17.8 % (11.6-14.8); WHITE BLOOD COUNT 8.9 K/UL (4.8-10.8)
[2016-11-30] MEDS: HydrALAZINE 25mg tab GT SCH ×4 (05:41→23:48)
[2016-11-30 06:27] LABS: ALANINE AMINOTRANSFERASE 13 U/L (3-41); ALBUMIN/GLOBULIN RATIO 0.5 (1.0-2.7); ANION GAP 9 (5-15); ASPARTATE AMINO TRANSFERASE 17 U/L (5-40); CALCIUM 9.7 mg/dL (8.6-10.2); CARBON DIOXIDE 30 mEQ/L (20-30); CHLORIDE 100 mEQ/L (98-107); CREATININE 1.4 mg/dL (0.7-1.2); HEMOLYSIS 2; PHOSPHORUS 3.3 mg/dL (2.5-4.8); POTASSIUM 3.9 mEQ/L (3.4-4.9); SODIUM 139 mEQ/L (135-145); TOTAL PROTEIN 7.8 g/dL (6.6-8.7)
[2016-11-30 07:54] LABS: ABG ALLEN TEST POSITIVE; ABG BASE EXCESS 6.9; ABG PCO2 44.6 mmHg (35.0-45.0)
--- NOTE | 2016-11-30 08:28 | Pulmonolgy Critical Care Note ---
Critical Care - Asmt/Plan Assessment/Plan: ASSESSMENT acute hypoxemic hypercapnic respiratory failure requiring intubation failure to wean septic shock-resolved sepsis with bacteremia bacteremia with Proteus ESBL UTI with Providencia and Proteus ESBL PNA MRSA HTN hyperkalemia -resolved acute renal failure on CKD obstructive uropathy hematuria -cleared anemia s/p blood transfusion hx of CVA with R hemiplegia seizure disorder moderate pulmonary HTN moderate MR moderate TR sacral decub st 3 POA PLAN OF CARE ICU care off pressors hemodynamically stable ventilator support pulmonary toilet ABG stable multiple trials to wean failed trach planned next /Friday daily CXR and ABG abx per ID till 12/02 ( Zosyn), s/p Rx for PNA urine cx + Providencia, Proteus, blood cx +Proteus, sputum cx + MRSA ; last blood cx negative ID follows cardio eval appreciated ECHO with EF 60%, RVSP of 38 c/w moderate pulmonary HTN as well as moderate MR and moderate TR BP management with CCB and Hydralazine, BB just added by cardio s/p Lasix x1 last night s/p IVF monitor renal parameters, creat down to 1.4 monitor lytes, avoid nephrotoxic , nephro follows renal US with moderate hydronephrosis TF and water flushes urology eval for hematuria appreciated hematuria cleared ; further workup when stable urine clear monitor HH, stable after 1 u PRBC 11/16 Venous Duplex negative, DVT, GI prophylaxis pain management bowel regimen case discussed and evaluated by supervising physician Critical Care - Objective Last 24 Hour Vital Signs Date Time Temp Pulse Resp B/P Pulse Ox O2 Delivery O2 Flow Rate FiO2 11/30/16 08:00 79 20 123/90 100 Mechanical Ventilator 40 11/30/16 08:00 78 11/30/16 07:13 71 18 40 11/30/16 07:00 98.2 75 21 131/83 100 Mechanical Ventilator 40 11/30/16 06:00 76 21 143/83 100 Mechanical Ventilator 40 11/30/16 05:41 137/86 11/30/16 05:00 77 20 137/86 100 Mechanical Ventilator 40 11/30/16 05:00 78 22 40 11/30/16 04:25 79 11/30/16 04:24 40 11/30/16 04:00 98.0 79 22 149/93 100 Mechanical Ventilator 40 11/30/16 03:17 82 25 40 11/30/16 03:00 78 20 135/79 100 Mechanical Ventilator 40 11/30/16 02:00 75 18 138/79 100 Mechanical Ventilator 40 11/30/16 01:04 74 18 40 11/30/16 01:00 73 21 159/87 100 Mechanical Ventilator 40 11/30/16 00:08 40 11/30/16 00:05 73 21 144/82 100 Mechanical Ventilator 40 11/30/16 00:00 74 11/29/16 23:33 159/81 11/29/16 23:15 76 24 40 11/29/16 23:08 77 18 138/77 100 Mechanical Ventilator 40 11/29/16 22:00 73 19 149/75 100 Mechanical Ventilator 40 11/29/16 21:00 81 21 119/88 100 Mechanical Ventilator 40 11/29/16 20:46 80 26 40 11/29/16 20:00 97.8 82 22 120/58 100 Mechanical Ventilator 40 11/29/16 20:00 40 11/29/16 20:00 85 11/29/16 19:00 84 21 120/58 100 Mechanical Ventilator 40 11/29/16 18:50 84 28 40 11/29/16 18:00 75 18 149/80 100 Mechanical Ventilator 40 11/29/16 17:24 147/102 11/29/16 17:00 97.5 76 23 147/102 100 Mechanical Ventilator 40 11/29/16 16:51 23 40 11/29/16 16:00 74 19 130/88 100 Mechanical Ventilator 40 17 16:00 73 11/29/16 15:10 81 22 127/90 100 Mechanical Ventilator 40 11/29/16 14:40 83 23 40 11/29/16 14:35 40 11/29/16 14:00 83 22 135/76 100 Mechanical Ventilator 40 11/29/16 13:00 80 21 131/76 100 Mechanical Ventilator 40 11/29/16 12:45 40 17 12:44 83 31 40 11/29/16 12:00 77 11/29/16 12:00 98.1 77 20 138/75 100 Mechanical Ventilator 40 11/29/16 12:00 76 11/29/16 11:29 129/70 14 11:22 177/86 11/29/16 11:11 77 18 40 11/29/16 11:00 40 11/29/16 11:00 82 21 146/89 100 Mechanical Ventilator 40 11/29/16 10:00 69 21 156/89 100 Mechanical Ventilator 40 11/29/16 09:22 40 11/29/16 09:19 77 18 40 11/29/16 09:00 70 19 146/82 100 Mechanical Ventilator 40 Objective: Status: arousable Condition: critical HEENT: atraumatic, normocephalic, OP with ET in place, intact, Lungs: clear Heart: HR/BP stable, PICC RUE intact Abdomen: soft, non-tender, [place] with clear urine, GT with TF Extremities: no C/C/E, R hemiplegia Critical Care - Subjective ROS Limited/Unobtainable: Yes Interval Events: afebrile, no leukocytosis no signs of respiratory distress on current settings but multiple weaning trials failure Condition: critical IV Access: PICC - RUE EKG Rhythm: Sinus Rhythm FI02: 40 Vent Support Breath Rate: 18 Vent Support Mode: AC Vent Tidal Volume: 500 Sputum Amount: Small PEEP: 5.0 PIP: 28 Tube Feeding Amount: 50 I&O: Intake and Output 11/29/16 11/30/16 19:00 07:00 Intake Total 1120.00 ml 972.5 ml Output Total 770 ml 1155 ml Balance 350.00 ml -182.5 ml Intake Free Water 180 ml 180 ml IV Total 110.00 ml 192.5 ml Tube Feeding 650 ml 600 ml Other 180 ml Output Urine Total 720 ml 1155 ml Stool Total 50 ml # Voids 1 # Bowel Movements 9 2 CXR: 11/29 - Increased left basilar atelectasis. Possible new or increased small left pleural effusion. ET-Tube: 8.0 ET Position: 24 [place] (HueMelia almanza NP Nov 30, 2016 08:28
[2016-11-30] MEDS ORDERED: DuoNeb 0.5-3(2.5)mg/3ml neb HHN PRN (08:30)
[2016-11-30] MEDS: Metoprolol Tartrate 12.5mg TAB GT SCH ×2 (08:36→21:29)
[2016-11-30] MEDS: LORazepam Inj 2mg/ml 1ml IV PRN ×3 (08:36→22:13)
[2016-11-30] MEDS: Heparin 5000 units/ml inj SUBQ SCH ×2 (08:37→21:31)
[2016-11-30] MEDS: Vitamin A&D Oint 2oz Tube TOPIC SCH ×2 (08:38→21:29)
--- NOTE | 2016-11-30 09:03 | General Progress Note ---
Assessment/Plan Problem List: (1) Sepsis ICD Codes: A41.9 - Sepsis, unspecified organism SNOMED: 77920588 (2) Septic shock ICD Codes: A41.9 - Sepsis, unspecified organism; R65.21 - Severe sepsis with septic shock SNOMED: 87496769 (3) Renal failure ICD Codes: N19 - Unspecified kidney failure SNOMED: 96067687 Qualifiers: Qualified Codes: N17.9 - Acute kidney failure, unspecified (4) Respiratory distress ICD Codes: R06.00 - Dyspnea, unspecified SNOMED: 884257798 (5) Pneumonia ICD Codes: J18.9 - Pneumonia, unspecified organism SNOMED: 024678251 (6) UTI (urinary tract infection) ICD Codes: N39.0 - Urinary tract infection, site not specified SNOMED: 95320250 Status: unchanged Assessment/Plan vent abx cbc bmp am, wean vent if possible, or trach naima ltach eval Subjective Constitutional: Reports: weakness Allergies: Coded Allergies: No Known Allergies (Verified , 01/02/09) All Systems: reviewed and negative except above Subjective intubated sedated in icu Objective Last 24 Hour Vital Signs Date Time Temp Pulse Resp B/P Pulse Ox O2 Delivery O2 Flow Rate FiO2 11/30/16 08:36 78 123/90 11/30/16 08:36 78 123/90 11/30/16 08:00 40 11/30/16 08:00 79 20 123/90 100 Mechanical Ventilator 40 11/30/16 08:00 78 11/30/16 07:13 71 18 40 11/30/16 07:00 98.2 75 21 131/83 100 Mechanical Ventilator 40 11/30/16 06:00 76 21 143/83 100 Mechanical Ventilator 40 11/30/16 05:41 137/86 11/30/16 05:00 77 20 137/86 100 Mechanical Ventilator 40 11/30/16 05:00 78 22 40 11/30/16 04:25 79 11/30/16 04:24 40 11/30/16 04:00 98.0 79 22 149/93 100 Mechanical Ventilator 40 11/30/16 03:17 82 25 40 11/30/16 03:00 78 20 135/79 100 Mechanical Ventilator 40 11/30/16 02:00 75 18 138/79 100 Mechanical Ventilator 40 11/30/16 01:04 74 18 40 11/30/16 01:00 73 21 159/87 100 Mechanical Ventilator 40 11/30/16 00:08 40 11/30/16 00:05 73 21 144/82 100 Mechanical Ventilator 40 15 00:00 74 1417 23:33 159/81 17 23:15 76 24 40 17 23:08 77 18 138/77 100 Mechanical Ventilator 40 11/29/16 22:00 73 19 149/75 100 Mechanical Ventilator 40 11/29/16 21:00 81 21 119/88 100 Mechanical Ventilator 40 11/29/16 20:46 80 26 40 17 20:00 97.8 82 22 120/58 100 Mechanical Ventilator 40 11/29/16 20:00 40 11/29/16 20:00 85 11/29/16 19:00 84 21 120/58 100 Mechanical Ventilator 40 11/29/16 18:50 84 28 40 11/29/16 18:00 75 18 149/80 100 Mechanical Ventilator 40 11/29/16 17:24 147/102 11/29/16 17:00 97.5 76 23 147/102 100 Mechanical Ventilator 40 11/29/16 16:51 23 40 17 16:00 74 19 130/88 100 Mechanical Ventilator 40 11/29/16 16:00 73 11/29/16 15:10 81 22 127/90 100 Mechanical Ventilator 40 11/29/16 14:40 83 23 40 11/29/16 14:35 40 11/29/16 14:00 83 22 135/76 100 Mechanical Ventilator 40 11/29/16 13:00 80 21 131/76 100 Mechanical Ventilator 40 11/29/16 12:45 40 11/29/16 12:44 83 31 40 11/29/16 12:00 77 11/29/16 12:00 98.1 77 20 138/75 100 Mechanical Ventilator 40 11/29/16 12:00 76 17 11:29 129/70 14/17 11:22 177/86 11/29/16 11:11 77 18 40 14/17 11:00 40 17 11:00 82 21 146/89 100 Mechanical Ventilator 40 11/29/16 10:00 69 21 156/89 100 Mechanical Ventilator 40 11/29/16 09:22 40 11/29/16 09:19 77 18 40 Intake and Output 11/29/16 11/30/16 19:00 07:00 Intake Total 1120.00 ml 972.5 ml Output Total 770 ml 1155 ml Balance 350.00 ml -182.5 ml Intake Free Water 180 ml 180 ml IV Total 110.00 ml 192.5 ml Tube Feeding 650 ml 600 ml Other 180 ml Output Urine Total 720 ml 1155 ml Stool Total 50 ml # Voids 1 # Bowel Movements 9 2 Laboratory Tests 11/30/16 04:00: White Blood Count 8.9, Red Blood Count 4.24L, Hemoglobin 10.6L, Hematocrit 34.8L , Mean Corpuscular Volume 82, Mean Corpuscular Hemoglobin 25.0L, Mean Corpuscular Hemoglobin Concent 30.5L, Red Cell Distribution Width 17.8H, Platelet Count 430, Mean Platelet Volume 6.2L, Neutrophils (%) (Auto) 55.7, Lymphocytes (%) (Auto) 31.5, Monocytes (%) (Auto) 8.5, Eosinophils (%) (Auto) 3.6H, Basophils (%) (Auto) 0.8, Sodium Level 139, Potassium Level 3.9, Chloride Level 100, Carbon Dioxide Level 30, Anion Gap 9, Blood Urea Nitrogen 29H, Creatinine 1.4H, Estimat Glomerular Filtration Rate , Glucose Level 118H, Calcium Level 9.7, Phosphorus Level 3.3, Magnesium Level 2.0, Total Bilirubin 0.3, Aspartate Amino Transf (AST/SGOT) 17, Alanine Aminotransferase (ALT/SGPT) 13, Alkaline Phosphatase 76, Pro-B-Type Natriuretic Peptide 946H, Total Protein 7.8, Albumin 2.8L, Globulin 5.0, Albumin/Globulin Ratio 0.5L 11/30/16 07:40: Arterial Blood pH 7.460H, Arterial Blood Partial Pressure CO2 44.6, Arterial Blood Partial Pressure O2 121.0H, Arterial Blood HCO3 31.4H, Arterial Blood Oxygen Saturation 98.3H, Arterial Blood Base Excess 6.9, Librado Test Positive Height (Feet): 6 Height (Inches): 1.00 Weight (Pounds): 163 General Appearance: lethargic EENT: normal ENT inspection Neck: normal alignment Cardiovascular: normal peripheral pulses, normal rate, regular rhythm Respiratory/Chest: chest wall non-tender, lungs clear, normal breath sounds Abdomen: normal bowel sounds, non tender, soft Extremities: normal inspection Edema: no edema noted Arm (L), no edema noted Arm (R), no edema noted Leg (L), no edema noted Leg (R), no edema noted Pedal (L), no edema noted Pedal (R), no edema noted Generalized Neurologic: motor weakness Skin: normal pigmentation, warm/dry CASS YANES Nov 30, 2016 09:03
--- NOTE | 2016-11-30 09:45 | Progress Note ---
DATE: 11/28/2016 LATE ENTRY CARDIOLOGY PROGRESS NOTE: SUBJECTIVE: The patient remains in the intensive care unit. Orally intubated. Mechanically ventilated. Blood pressure is stable, off pressors, and blood pressure trend is increasing. Monitored rhythm is sinus with occasional atrial ectopic beat. OBJECTIVE: VITAL SIGNS: Blood pressure is 144/73 to 155/88, heart rate 73 to 80, respiratory rate 20, and afebrile. HEENT: Thin trach secretions. LUNGS: Bilateral breath sounds. Few rhonchi. HEART: Regular rhythm and rate. Normal S1 and S2 with a fourth heart sound. ABDOMEN: Soft. EXTREMITIES: Trace edema. LABORATORY DATA: Notable for white count of 10 and hemoglobin 10. Sodium is 142, potassium 3.6, bicarbonate 30, BUN 33, and creatinine 1.5. Pro-natriuretic peptide yesterday was 1149. IMPRESSION: 1. Acute on chronic diastolic congestive heart failure, now mostly compensated. 2. Hypertensive heart disease. 3. Recovering sepsis. 4. Resolved shock. 5. Respiratory failure with tracheostomy. 6. Chronic renal failure, improved, with associated left hydronephrosis. PLAN: 1. Continue hydralazine and amlodipine. Add low-dose beta-coy. 2. Monitor for bronchospasm. 3. Monitor cardiorenal parameters and volume status with trending of natriuretic peptide assay. 4. Periodic diuresis based on clinical parameters. Riki Francois M.D. DR: Linda JOB#: [id number] CC:
--- NOTE | 2016-11-30 11:30 | Progress Note ---
DATE: 11/30/2016 CARDIOLOGY PROGRESS NOTE SUBJECTIVE: The patient remains in the intensive care unit. Condition critical. Prognosis guarded. He is on ventilator support. He remains off pressors. Weaning efforts have failed. OBJECTIVE: VITAL SIGNS: Blood pressure 123/90, pulse 79, and respirations 20. Afebrile. HEENT: Temporal wasting. Pale conjunctivae. Oropharynx clear. NECK: Supple. Thin ET tube secretions. LUNGS: Coarse breath sounds. HEART: Regular rhythm and rate. Normal S1 and S2. ABDOMEN: Soft. EXTREMITIES: No edema. Sacral decubitus noted. IMPRESSION: 1. Respiratory failure. 2. . 3. Recovered shock. 4. Recovering sepsis. 5. Acute renal failure. 6. Obstructive uropathy improved from moderate pulmonary hypertension. 7. 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 8. Acute on chronic diastolic congestive heart failure. PLAN: 1. Adjust hydration. 2. Continue nutrition by feeding tube. 3. Trach planned. 4. Titrate antihypertensive regimen. 5. No additional diuresis at this time. Riki Francois M.D. DR: CHRISTIAN JOB#: [id number] CC:
--- NOTE | 2016-11-30 16:03 | Infectious Diseases Prog Note ---
Assessment/Plan Problems: (1) HCAP (healthcare-associated pneumonia) Assessment & Plan: due to MRSA , S/P vancomycin and doxycycline for 14 days , improved (2) Septic shock Assessment & Plan: with proteus mirabilis ESBL + , suspect source is UTI , on zosyn , repeated blood culture to confirm clearance is negative , continue zosyn for 14 days . EOT 12/02/16 (3) Respiratory distress Assessment & Plan: due to the above, S/P intubation, failed multiple attempts to wean him off , om mechanical ventilation, monitor ABG, titrate oxygen as needed (4) UTI (urinary tract infection) Assessment & Plan: with proteus mirabilis and Providencia stuartii , most likely the source of his sepsis, on zosyn for 14 days (5) Renal failure Assessment & Plan: improving, continue hydration, avoid nephrotoxic meds (6) Hydronephrosis of left kidney Assessment & Plan: with hematuria, most likely due to urethral tear , had urology eval , and no intervention needed for now (7) Ventilator dependent Assessment & Plan: may need tracheostomy next week , ENT consulted Subjective ROS Limited/Unobtainable: Yes Allergies: Coded Allergies: No Known Allergies (Verified , 01/02/09) Subjective he failed multiple weaning trials, still intubated on mechanical ventilation, alert, off sedation, not in distress, off pressors, afebrile, needs tracheostomy next week Objective Vital Signs Last 24 Hour Vital Signs Date Time Temp Pulse Resp B/P Pulse Ox O2 Delivery O2 Flow Rate FiO2 11/30/16 15:00 69 18 138/77 100 Mechanical Ventilator 40 11/30/16 14:58 66 18 40 11/30/16 14:00 71 18 141/86 100 Mechanical Ventilator 40 11/30/16 13:14 71 18 40 11/30/16 13:00 67 22 141/81 100 Mechanical Ventilator 40 11/30/16 12:00 98.5 72 20 121/74 98 Mechanical Ventilator 40 11/30/16 12:00 40 11/30/16 12:00 71 11/30/16 11:53 98.5 11/30/16 11:23 146/76 11/30/16 11:00 71 20 146/76 100 Mechanical Ventilator 40 11/30/16 10:42 70 20 40 11/30/16 10:00 61 18 118/71 100 Mechanical Ventilator 40 11/30/16 09:08 63 18 40 11/30/16 09:00 65 18 144/90 100 Mechanical Ventilator 40 11/30/16 08:36 78 123/90 11/30/16 08:36 78 123/90 15 08:00 40 11/30/16 08:00 79 20 123/90 100 Mechanical Ventilator 40 11/30/16 08:00 78 11/30/16 07:13 71 18 40 11/30/16 07:00 98.2 75 21 131/83 100 Mechanical Ventilator 40 11/30/16 06:00 76 21 143/83 100 Mechanical Ventilator 40 11/30/16 05:41 137/86 11/30/16 05:00 77 20 137/86 100 Mechanical Ventilator 40 11/30/16 05:00 78 22 40 11/30/16 04:25 79 11/30/16 04:24 40 11/30/16 04:00 98.0 79 22 149/93 100 Mechanical Ventilator 40 11/30/16 03:17 82 25 40 11/30/16 03:00 78 20 135/79 100 Mechanical Ventilator 40 11/30/16 02:00 75 18 138/79 100 Mechanical Ventilator 40 11/30/16 01:04 74 18 40 11/30/16 01:00 73 21 159/87 100 Mechanical Ventilator 40 11/30/16 00:08 40 11/30/16 00:05 73 21 144/82 100 Mechanical Ventilator 40 11/30/16 00:00 74 11/29/16 23:33 159/81 11/29/16 23:15 76 24 40 11/29/16 23:08 77 18 138/77 100 Mechanical Ventilator 40 11/29/16 22:00 73 19 149/75 100 Mechanical Ventilator 40 11/29/16 21:00 81 21 119/88 100 Mechanical Ventilator 40 11/29/16 20:46 80 26 40 11/29/16 20:00 97.8 82 22 120/58 100 Mechanical Ventilator 40 11/29/16 20:00 40 14/17 20:00 85 14 19:00 84 21 120/58 100 Mechanical Ventilator 40 1417 18:50 84 28 40 14 18:00 75 18 149/80 100 Mechanical Ventilator 40 11/29/16 17:24 147/102 7/14/17 17:00 97.5 76 23 147/102 100 Mechanical Ventilator 40 11/29/16 16:51 23 40 Height (Feet): 6 Height (Inches): 1.00 Weight (Pounds): 163 General Appearance: WD/WN, no acute distress HEENT: normocephalic, atraumatic, anicteric, mucous membranes moist, supple Respiratory/Chest: chest wall non-tender, lungs clear, normal breath sounds, no respiratory distress, no accessory muscle use Cardiovascular: normal peripheral pulses, normal rate, regular rhythm, no gallop/murmur Abdomen: normal bowel sounds, soft, non tender, no organomegaly, non distended , no mass Extremities: no cyanosis, no clubbing Skin: no rash, no lesions, no ulcers Neurologic/Psychiatric: alert, oriented x 3 Lymphatic: no neck adenopathy, no groin adenopathy Laboratory Tests Test 11/30/16 04:00 11/30/16 07:40 White Blood Count 8.9 K/UL (4.8-10.8) Red Blood Count 4.24 M/UL (4.70-6.10) L Hemoglobin 10.6 G/DL (14.2-18.0) L Hematocrit 34.8 % (42.0-52.0) L Mean Corpuscular Volume 82 FL (80-99) Mean Corpuscular Hemoglobin 25.0 PG (27.0-31.0) L Mean Corpuscular Hemoglobin Concent 30.5 G/DL (32.0-36.0) L Red Cell Distribution Width 17.8 % (11.6-14.8) H Platelet Count 430 K/UL (150-450) Mean Platelet Volume 6.2 FL (6.5-10.1) L Neutrophils (%) (Auto) 55.7 % (45.0-75.0) Lymphocytes (%) (Auto) 31.5 % (20.0-45.0) Monocytes (%) (Auto) 8.5 % (1.0-10.0) Eosinophils (%) (Auto) 3.6 % (0.0-3.0) H Basophils (%) (Auto) 0.8 % (0.0-2.0) Sodium Level 139 mEQ/L (135-145) Potassium Level 3.9 mEQ/L (3.4-4.9) Chloride Level 100 mEQ/L (98-107) Carbon Dioxide Level 30 mEQ/L (20-30) Anion Gap 9 (5-15) Blood Urea Nitrogen 29 mg/dL (7-23) H Creatinine 1.4 mg/dL (0.7-1.2) H Estimat Glomerular Filtration Rate mL/min (>60) Glucose Level 118 mg/dL (74-106) H Calcium Level 9.7 mg/dL (8.6-10.2) Phosphorus Level 3.3 mg/dL (2.5-4.8) Magnesium Level 2.0 mg/dL (1.7-2.5) Total Bilirubin 0.3 mg/dL (0.0-1.2) Aspartate Amino Transf (AST/SGOT) 17 U/L (5-40) Alanine Aminotransferase (ALT/SGPT) 13 U/L (3-41) Alkaline Phosphatase 76 U/L (40-129) Pro-B-Type Natriuretic Peptide 946 pg/mL (0-450) H Total Protein 7.8 g/dL (6.6-8.7) Albumin 2.8 g/dL (3.5-5.2) L Globulin 5.0 g/dL Albumin/Globulin Ratio 0.5 (1.0-2.7) L Arterial Blood pH 7.460 (7.350-7.450) Arterial Blood Partial Pressure CO2 44.6 mmHg (35.0-45.0) Arterial Blood Partial Pressure O2 121.0 mmHg (75.0-100.0) H Arterial Blood HCO3 31.4 mmol/L (22.0-26.0) H Arterial Blood Oxygen Saturation 98.3 % (92.0-98.0) H Arterial Blood Base Excess 6.9 Librado Test Positive Current Medications Medications (Trade) Dose Ordered Sig/Keira Route PRN Reason Start Time Stop Time Status Last Admin Dose Admin Acetaminophen (Tylenol) 650 mg Q4H PRN ORAL fever 11/14/16 18:00 12/14/16 17:59 11/17/16 21:35 Albuterol/ Ipratropium (DuoNeb 0.5-3(2.5)mg/3ml) 3 ml Q4H PRN HHN sob 11/30/16 08:30 12/05/16 08:29 Amlodipine Besylate (Norvasc) 10 mg DAILY GT 11/18/16 11:00 12/18/16 10:59 11/30/16 08:36 Chlorhexidine Gluconate (Michelle-Hex 2%) 1 applic QHS TOPIC 11/15/16 21:00 12/15/16 20:59 11/29/16 20:53 Heparin Sodium (Porcine) (Heparin 5000 units/ml) 5,000 units EVERY 12 HOURS SUBQ 11/15/16 21:00 12/15/16 20:59 11/30/16 08:37 Hydralazine HCl (Apresoline) 10 mg Q4H PRN IV SBP > 150 11/18/16 12:15 12/18/16 12:14 11/29/16 11:22 Hydralazine HCl (Apresoline) 25 mg Q6HR GT 11/20/16 10:28 12/19/16 05:59 11/30/16 11:23 Hydromorphone HCl (Dilaudid) 0.5 mg Q4H PRN IVP Severe Pain (Pain Scale 7-10) 11/26/16 10:30 12/03/16 10:29 11/30/16 11:23 Lansoprazole (Prevacid) 30 mg DAILY GT 11/19/16 09:00 12/19/16 08:59 11/30/16 08:36 Lorazepam (Ativan 2mg/ml 1ml) 2 mg Q4H PRN IV For Anxiety 11/30/16 17:15 12/07/16 23:59 Metoprolol Tartrate (Lopressor) 12.5 mg Q12HR GT 11/30/16 09:00 12/30/16 08:59 11/30/16 08:36 Ondansetron HCl (Zofran) 4 mg Q6H PRN IVP Nausea & Vomiting 11/14/16 20:00 12/14/16 19:59 Piperacillin Sod/ Tazobactam Sod/ Dextrose (Zosyn/D5W) 110 ml @ 27.5 mls/hr Q8H IVPB 11/17/16 12:00 12/02/16 11:59 11/30/16 11:22 Polyethylene Glycol 17 gm 17 gm DAILYPRN PRN GT Constipation 11/17/16 10:41 12/15/16 13:59 11/21/16 03:06 Vitamin A/Vitamin D (A & D Oint) 1 applic EVERY 12 HOURS [facility] 11/15/16 21:00 12/15/16 20:59 11/30/16 08:38 Julianna Trejo M.D. Nov 30, 2016 16:03
[2016-11-30] MEDS: Dyna-Hex 2% Top Sol 8oz TOPIC SCH (21:29)
[2016-12-01] VITALS (24 sets, daily range): BP systolic 98–160; BP diastolic 67–98
[2016-12-01 05:11] LABS: BASOPHILS % (AUTO) 0.9 % (0.0-2.0); EOSINOPHILS % (AUTO) 4.6 % (0.0-3.0); LYMPHOCYTES % (AUTO) 31.7 % (20.0-45.0); MEAN CORPUSCULAR HEMOGLOBIN 24.9 PG (27.0-31.0); MEAN CORPUSCULAR HGB CONC 30.4 G/DL (32.0-36.0); MEAN CORPUSCULAR VOLUME 82 FL (80-99); MEAN PLATELET VOLUME 6.8 FL (6.5-10.1); MONOCYTES % (AUTO) 7.8 % (1.0-10.0); NEUTROPHILS % (AUTO) 55.1 % (45.0-75.0); PLATELET COUNT 457 K/UL (150-450); RED BLOOD COUNT 4.56 M/UL (4.70-6.10); RED CELL DISTRIBUTION WIDTH 17.8 % (11.6-14.8); WHITE BLOOD COUNT 8.7 K/UL (4.8-10.8)
[2016-12-01] MEDS: HydrALAZINE 25mg tab GT SCH ×4 (05:39→23:19)
[2016-12-01] MEDS: Piperacillin/Tazobactam 3.375 GM in D5W 110 ML IVPB SCH ×3 (05:39→19:50)
[2016-12-01] MEDS: LORazepam Inj 2mg/ml 1ml IV PRN ×2 (05:54→12:46)
[2016-12-01 05:55] LABS: ANION GAP 11 (5-15); CALCIUM 9.8 mg/dL (8.6-10.2); CARBON DIOXIDE 30 mEQ/L (20-30); CHLORIDE 102 mEQ/L (98-107); CREATININE 1.4 mg/dL (0.7-1.2); HEMOLYSIS 1; POTASSIUM 3.9 mEQ/L (3.4-4.9); SODIUM 143 mEQ/L (135-145)
--- NOTE | 2016-12-01 08:24 | Pulmonolgy Critical Care Note ---
Critical Care - Asmt/Plan Assessment/Plan: ASSESSMENT acute hypoxemic hypercapnic respiratory failure requiring intubation failure to wean septic shock-resolved sepsis with bacteremia bacteremia with Proteus ESBL UTI with Providencia and Proteus ESBL PNA MRSA HTN hyperkalemia -resolved acute renal failure on CKD obstructive uropathy hematuria -cleared anemia s/p blood transfusion hx of CVA with R hemiplegia seizure disorder moderate pulmonary HTN moderate MR moderate TR sacral decub st 3 POA PLAN OF CARE ICU care off pressors hemodynamically stable ventilator support pulmonary toilet ABG stable multiple trials to wean failed trach planned next week /Friday or Friday daily CXR and ABG abx per ID till 12/02 ( Zosyn), s/p Rx for PNA urine cx + Providencia, Proteus, blood cx +Proteus, sputum cx + MRSA ; last blood cx negative ID follows cardio eval appreciated ECHO with EF 60%, RVSP of 38 c/w moderate pulmonary HTN as well as moderate MR and moderate TR BP management with CCB and Hydralazine, BB just added by cardio s/p Lasix x1 last night s/p IVF monitor renal parameters, creat down to 1.4 monitor lytes, avoid nephrotoxic , nephro follows renal US with moderate hydronephrosis TF and water flushes urology eval for hematuria appreciated hematuria cleared ; further workup when stable urine clear monitor HH, stable after 1 u PRBC 11/16 Venous Duplex negative, DVT, GI prophylaxis pain management bowel regimen case discussed and evaluated by supervising physician Critical Care - Objective Last 24 Hour Vital Signs Date Time Temp Pulse Resp B/P Pulse Ox O2 Delivery O2 Flow Rate FiO2 12/01/16 08:00 73 18 155/95 100 Mechanical Ventilator 40 12/01/16 08:00 74 12/01/16 08:00 40 12/01/16 07:00 98.1 74 21 139/88 98 Mechanical Ventilator 40 12/01/16 06:50 68 18 40 12/01/16 06:00 74 20 150/88 100 Mechanical Ventilator 40 12/01/16 05:39 146/100 12/01/16 05:00 75 20 145/90 100 Mechanical Ventilator 40 12/01/16 04:40 81 24 40 12/01/16 04:00 76 12/01/16 04:00 40 12/01/16 04:00 98.0 75 20 146/90 100 Mechanical Ventilator 40 7/16/17 03:00 75 20 141/93 100 Mechanical Ventilator 40 7/16/17 02:39 74 26 40 7/16/17 02:00 73 20 151/97 100 Mechanical Ventilator 40 7/16/17 01:00 72 19 151/89 100 Mechanical Ventilator 40 7/16/17 00:48 68 23 40 7/16/17 00:00 78 7/16/17 00:00 40 7/16/17 00:00 66 19 146/90 100 Mechanical Ventilator 40 7/15/17 23:48 128/81 715/17 23:00 62 18 131/85 100 Mechanical Ventilator 40 7/15/17 22:58 61 18 40 7/15/17 22:00 67 19 138/77 100 Mechanical Ventilator 40 715/17 21:29 70 139/75 715/17 21:02 70 21 40 715/17 21:00 70 18 146/80 100 Mechanical Ventilator 40 715/17 20:00 69 715/17 20:00 40 715/17 20:00 98.4 69 18 139/75 100 Mechanical Ventilator 40 715/17 19:00 69 20 131/85 100 Mechanical Ventilator 40 7/15/17 18:52 72 24 40 7/15/17 18:00 70 20 130/75 100 Mechanical Ventilator 40 715/17 17:17 140/78 715/17 17:00 72 18 140/78 100 Mechanical Ventilator 40 7/15/17 16:40 75 18 40 715/17 16:00 68 715/17 16:00 98.7 68 20 138/84 98 Mechanical Ventilator 40 7/15/17 16:00 40 7/15/17 15:00 69 18 138/77 100 Mechanical Ventilator 40 7/15/17 14:58 66 18 40 7/15/17 14:00 71 18 141/86 100 Mechanical Ventilator 40 7/15/17 13:14 71 18 40 7/15/17 13:00 67 22 141/81 100 Mechanical Ventilator 40 7/15/17 12:00 98.5 72 20 121/74 98 Mechanical Ventilator 40 7/15/17 12:00 40 715/17 12:00 71 7/15/17 11:53 98.5 715/17 11:23 146/76 7/15/17 11:00 71 20 146/76 100 Mechanical Ventilator 40 11/30/16 10:42 70 20 40 11/30/16 10:00 61 18 118/71 100 Mechanical Ventilator 40 11/30/16 09:08 63 18 40 11/30/16 09:00 65 18 144/90 100 Mechanical Ventilator 40 11/30/16 08:36 78 123/90 11/30/16 08:36 78 123/90 Objective: Status: awake, porrly but responsive Condition: critical HEENT: atraumatic, normocephalic, OP with ET in place, intact, Lungs: clear Heart: HR/BP stable, PICC RUE intact Abdomen: soft, non-tender, Mat[place] with clear urine, GT with TF Extremities: no C/C/E, R hemiplegia Critical Care - Subjective ROS Limited/Unobtainable: Yes Interval Events: no leukocytosis, creatinine leveled-1.4 no signs of respiratory distress failure to wean ( multiple trials) Condition: critical IV Access: PICC - RUE intact EKG Rhythm: Sinus Rhythm FI02: 40 Vent Support Breath Rate: 18 Vent Support Mode: AC Vent Tidal Volume: 500 Sputum Amount: Moderate PEEP: 5.0 PIP: 20 Tube Feeding Amount: 50 I&O: Intake and Output 11/30/16 12/01/16 19:00 07:00 Intake Total 947.5 ml 720 ml Output Total 620 ml 720 ml Balance 327.5 ml 0 ml Intake Free Water 60 ml 170 ml IV Total 137.5 ml Tube Feeding 600 ml 550 ml Other 150 ml Output Urine Total 620 ml 720 ml # Bowel Movements 4 6 CXR: Increased left basilar atelectasis. Possible new or increased small left pleural effusion. ET-Tube: 8.0 ET Position: 24 [place] [facility] Arciniega NP Dec 01, 2016 08:24
--- NOTE | 2016-12-01 08:27 | General Progress Note ---
Assessment/Plan Problem List: (1) Sepsis ICD Codes: A41.9 - Sepsis, unspecified organism SNOMED: 35712138 (2) Septic shock ICD Codes: A41.9 - Sepsis, unspecified organism; R65.21 - Severe sepsis with septic shock SNOMED: 31912486 (3) Renal failure ICD Codes: N19 - Unspecified kidney failure SNOMED: 59314064 Qualifiers: Qualified Codes: N17.9 - Acute kidney failure, unspecified (4) Respiratory distress ICD Codes: R06.00 - Dyspnea, unspecified SNOMED: 950304403 (5) Pneumonia ICD Codes: J18.9 - Pneumonia, unspecified organism SNOMED: 832543652 (6) UTI (urinary tract infection) ICD Codes: N39.0 - Urinary tract infection, site not specified SNOMED: 57143213 Status: unchanged Assessment/Plan vent abx cbc bmp am, wean vent if possible, or trach naima ltach eval Subjective Constitutional: Reports: weakness Allergies: Coded Allergies: No Known Allergies (Verified , 01/02/09) All Systems: reviewed and negative except above Subjective intubated sedated in icu Objective Last 24 Hour Vital Signs Date Time Temp Pulse Resp B/P Pulse Ox O2 Delivery O2 Flow Rate FiO2 12/01/16 08:00 73 18 155/95 100 Mechanical Ventilator 40 12/01/16 08:00 74 12/01/16 08:00 40 12/01/16 07:00 98.1 74 21 139/88 98 Mechanical Ventilator 40 12/01/16 06:50 68 18 40 12/01/16 06:00 74 20 150/88 100 Mechanical Ventilator 40 12/01/16 05:39 146/100 12/01/16 05:00 75 20 145/90 100 Mechanical Ventilator 40 12/01/16 04:40 81 24 40 12/01/16 04:00 76 12/01/16 04:00 40 12/01/16 04:00 98.0 75 20 146/90 100 Mechanical Ventilator 40 12/01/16 03:00 75 20 141/93 100 Mechanical Ventilator 40 12/01/16 02:39 74 26 40 12/01/16 02:00 73 20 151/97 100 Mechanical Ventilator 40 12/01/16 01:00 72 19 151/89 100 Mechanical Ventilator 40 12/01/16 00:48 68 23 40 7/16/17 00:00 78 716/17 00:00 40 716/17 00:00 66 19 146/90 100 Mechanical Ventilator 40 715/17 23:48 128/81 715/17 23:00 62 18 131/85 100 Mechanical Ventilator 40 715/17 22:58 61 18 40 715/17 22:00 67 19 138/77 100 Mechanical Ventilator 40 715/17 21:29 70 139/75 715/17 21:02 70 21 40 715/17 21:00 70 18 146/80 100 Mechanical Ventilator 40 715/17 20:00 69 715/17 20:00 40 [id number] 20:00 98.4 69 18 139/75 100 Mechanical Ventilator 40 71517 19:00 69 20 131/85 100 Mechanical Ventilator 40 715/17 18:52 72 24 40 715/17 18:00 70 20 130/75 100 Mechanical Ventilator 40 15/17 17:17 140/78 71517 17:00 72 18 140/78 100 Mechanical Ventilator 40 1517 16:40 75 18 40 715/17 16:00 68 715/17 16:00 98.7 68 20 138/84 98 Mechanical Ventilator 40 715/17 16:00 40 715/17 15:00 69 18 138/77 100 Mechanical Ventilator 40 715/17 14:58 66 18 40 715/17 14:00 71 18 141/86 100 Mechanical Ventilator 40 715/17 13:14 71 18 40 715/17 13:00 67 22 141/81 100 Mechanical Ventilator 40 715/17 12:00 98.5 72 20 121/74 98 Mechanical Ventilator 40 715/17 12:00 40 715/17 12:00 71 15/17 11:53 98.5 715/17 11:23 146/76 715/17 11:00 71 20 146/76 100 Mechanical Ventilator 40 715/17 10:42 70 20 40 7/15/17 10:00 61 18 118/71 100 Mechanical Ventilator 40 715/17 09:08 63 18 40 7/15/17 09:00 65 18 144/90 100 Mechanical Ventilator 40 715/17 08:36 78 123/90 11/30/16 08:36 78 123/90 Intake and Output 11/30/16 12/01/16 19:00 07:00 Intake Total 947.5 ml 720 ml Output Total 620 ml 720 ml Balance 327.5 ml 0 ml Intake Free Water 60 ml 170 ml IV Total 137.5 ml Tube Feeding 600 ml 550 ml Other 150 ml Output Urine Total 620 ml 720 ml # Bowel Movements 4 6 Laboratory Tests 12/01/16 03:55: White Blood Count 8.7, Red Blood Count 4.56L, Hemoglobin 11.4L, Hematocrit 37.3L , Mean Corpuscular Volume 82, Mean Corpuscular Hemoglobin 24.9L, Mean Corpuscular Hemoglobin Concent 30.4L, Red Cell Distribution Width 17.8H, Platelet Count 457H, Mean Platelet Volume 6.8, Neutrophils (%) (Auto) 55.1, Lymphocytes (%) (Auto) 31.7, Monocytes (%) (Auto) 7.8, Eosinophils (%) (Auto) 4.6H, Basophils (%) (Auto) 0.9, Sodium Level 143, Potassium Level 3.9, Chloride Level 102, Carbon Dioxide Level 30, Anion Gap 11, Blood Urea Nitrogen 29H, Creatinine 1.4H, Estimat Glomerular Filtration Rate , Glucose Level 126H, Calcium Level 9.8 Height (Feet): 6 Height (Inches): 1.00 Weight (Pounds): 141 General Appearance: lethargic EENT: normal ENT inspection Neck: normal alignment Cardiovascular: normal peripheral pulses, normal rate, regular rhythm Respiratory/Chest: chest wall non-tender, lungs clear, normal breath sounds Abdomen: normal bowel sounds, non tender, soft Extremities: normal inspection Edema: no edema noted Arm (L), no edema noted Arm (R), no edema noted Leg (L), no edema noted Leg (R), no edema noted Pedal (L), no edema noted Pedal (R), no edema noted Generalized Neurologic: motor weakness Skin: normal pigmentation, warm/dry CASS YANES Dec 01, 2016 08:27
[2016-12-01] MEDS: Metoprolol Tartrate 12.5mg TAB GT SCH ×2 (08:50→21:16)
[2016-12-01] MEDS: Vitamin A&D Oint 2oz Tube TOPIC SCH ×2 (08:51→21:17)
[2016-12-01] MEDS: Heparin 5000 units/ml inj SUBQ SCH ×2 (08:51→21:00)
[2016-12-01 09:27] LABS: ABG ALLEN TEST POSITIVE; ABG BASE EXCESS 5.1
[2016-12-01] MEDS ORDERED: Hydromorphone 0.5mg/0.5ml inj IVP PRN (09:30)
--- NOTE | 2016-12-01 10:56 | Infectious Diseases Prog Note ---
Assessment/Plan Problems: (1) HCAP (healthcare-associated pneumonia) Assessment & Plan: due to MRSA , S/P vancomycin and doxycycline for 14 days , improved (2) Septic shock Assessment & Plan: with proteus mirabilis ESBL + , suspect source is UTI , on zosyn , repeated blood culture to confirm clearance is negative , continue zosyn for 14 days . EOT 12/02/16 (3) Respiratory distress Assessment & Plan: due to the above, S/P intubation, failed multiple attempts to wean him off , om mechanical ventilation, monitor ABG, titrate oxygen as needed (4) UTI (urinary tract infection) Assessment & Plan: with proteus mirabilis and Providencia stuartii , most likely the source of his sepsis, on zosyn for 14 days (5) Renal failure Assessment & Plan: improving, continue hydration, avoid nephrotoxic meds (6) Hydronephrosis of left kidney Assessment & Plan: with hematuria, most likely due to urethral tear , had urology eval , and no intervention needed for now (7) Ventilator dependent Assessment & Plan: may need tracheostomy next week , ENT consulted Subjective Allergies: Coded Allergies: No Known Allergies (Verified , 01/02/09) Subjective he failed multiple weaning trials, still intubated on mechanical ventilation, alert, off sedation, not in distress, off pressors, afebrile, needs tracheostomy next week Objective Vital Signs Last 24 Hour Vital Signs Date Time Temp Pulse Resp B/P Pulse Ox O2 Delivery O2 Flow Rate FiO2 12/01/16 10:00 65 20 142/98 100 Mechanical Ventilator 40 12/01/16 09:00 69 18 145/88 100 Mechanical Ventilator 40 12/01/16 08:53 64 18 40 12/01/16 08:50 76 155/90 12/01/16 08:50 76 155/90 12/01/16 08:00 73 18 155/95 100 Mechanical Ventilator 40 12/01/16 08:00 74 12/01/16 08:00 40 12/01/16 07:00 98.1 74 21 139/88 98 Mechanical Ventilator 40 12/01/16 06:50 68 18 40 12/01/16 06:00 74 20 150/88 100 Mechanical Ventilator 40 12/01/16 05:39 146/100 12/01/16 05:00 75 20 145/90 100 Mechanical Ventilator 40 12/01/16 04:40 81 24 40 716/17 04:00 76 716/17 04:00 40 [id number] 04:00 98.0 75 20 146/90 100 Mechanical Ventilator 40 71617 03:00 75 20 141/93 100 Mechanical Ventilator 40 716/17 02:39 74 26 40 716/17 02:00 73 20 151/97 100 Mechanical Ventilator 40 17 01:00 72 19 151/89 100 Mechanical Ventilator 40 16 00:48 68 23 40 716/17 00:00 78 16 00:00 40 16/17 00:00 66 19 146/90 100 Mechanical Ventilator 40 11/30/16 23:48 128/81 11/30/16 23:00 62 18 131/85 100 Mechanical Ventilator 40 1517 22:58 61 18 40 11/30/16 22:00 67 19 138/77 100 Mechanical Ventilator 40 11/30/16 21:29 70 139/75 11/30/16 21:02 70 21 40 11/30/16 21:00 70 18 146/80 100 Mechanical Ventilator 40 11/30/16 20:00 69 15/17 20:00 40 15/17 20:00 98.4 69 18 139/75 100 Mechanical Ventilator 40 17 19:00 69 20 131/85 100 Mechanical Ventilator 40 1517 18:52 72 24 40 15/17 18:00 70 20 130/75 100 Mechanical Ventilator 40 15/17 17:17 140/78 715/17 17:00 72 18 140/78 100 Mechanical Ventilator 40 715/17 16:40 75 18 40 715/17 16:00 68 715/17 16:00 98.7 68 20 138/84 98 Mechanical Ventilator 40 715/17 16:00 40 715/17 15:00 69 18 138/77 100 Mechanical Ventilator 40 715/17 14:58 66 18 40 7/15/17 14:00 71 18 141/86 100 Mechanical Ventilator 40 7/15/17 13:14 71 18 40 715/17 13:00 67 22 141/81 100 Mechanical Ventilator 40 715/17 12:00 98.5 72 20 121/74 98 Mechanical Ventilator 40 7/15/17 12:00 40 11/30/16 12:00 71 11/30/16 11:53 98.5 11/30/16 11:23 146/76 11/30/16 11:00 71 20 146/76 100 Mechanical Ventilator 40 Height (Feet): 6 Height (Inches): 1.00 Weight (Pounds): 141 Laboratory Tests Test 12/01/16 03:55 12/01/16 09:10 White Blood Count 8.7 K/UL (4.8-10.8) Red Blood Count 4.56 M/UL (4.70-6.10) L Hemoglobin 11.4 G/DL (14.2-18.0) L Hematocrit 37.3 % (42.0-52.0) L Mean Corpuscular Volume 82 FL (80-99) Mean Corpuscular Hemoglobin 24.9 PG (27.0-31.0) L Mean Corpuscular Hemoglobin Concent 30.4 G/DL (32.0-36.0) L Red Cell Distribution Width 17.8 % (11.6-14.8) H Platelet Count 457 K/UL (150-450) H Mean Platelet Volume 6.8 FL (6.5-10.1) Neutrophils (%) (Auto) 55.1 % (45.0-75.0) Lymphocytes (%) (Auto) 31.7 % (20.0-45.0) Monocytes (%) (Auto) 7.8 % (1.0-10.0) Eosinophils (%) (Auto) 4.6 % (0.0-3.0) H Basophils (%) (Auto) 0.9 % (0.0-2.0) Sodium Level 143 mEQ/L (135-145) Potassium Level 3.9 mEQ/L (3.4-4.9) Chloride Level 102 mEQ/L (98-107) Carbon Dioxide Level 30 mEQ/L (20-30) Anion Gap 11 (5-15) Blood Urea Nitrogen 29 mg/dL (7-23) H Creatinine 1.4 mg/dL (0.7-1.2) H Estimat Glomerular Filtration Rate mL/min (>60) Glucose Level 126 mg/dL (74-106) H Calcium Level 9.8 mg/dL (8.6-10.2) Arterial Blood pH 7.448 (7.350-7.450) Arterial Blood Partial Pressure CO2 44.0 mmHg (35.0-45.0) Arterial Blood Partial Pressure O2 139.0 mmHg (75.0-100.0) H Arterial Blood HCO3 29.8 mmol/L (22.0-26.0) H Arterial Blood Oxygen Saturation 98.4 % (92.0-98.0) H Arterial Blood Base Excess 5.1 Librado Test Positive Current Medications Medications (Trade) Dose Ordered Sig/Keira Route PRN Reason Start Time Stop Time Status Last Admin Dose Admin Acetaminophen (Tylenol) 650 mg Q4H PRN ORAL fever 11/14/16 18:00 12/14/16 17:59 11/17/16 21:35 Albuterol/ Ipratropium (DuoNeb 0.5-3(2.5)mg/3ml) 3 ml Q4H PRN HHN sob 11/30/16 08:30 12/05/16 08:29 Amlodipine Besylate (Norvasc) 10 mg DAILY GT 11/18/16 11:00 12/18/16 10:59 12/01/16 08:50 Chlorhexidine Gluconate (Michelle-Hex 2%) 1 applic QHS TOPIC 11/15/16 21:00 12/15/16 20:59 11/30/16 21:29 Heparin Sodium (Porcine) (Heparin 5000 units/ml) 5,000 units EVERY 12 HOURS SUBQ 11/15/16 21:00 12/15/16 20:59 12/01/16 08:51 Hydralazine HCl (Apresoline) 10 mg Q4H PRN IV SBP > 150 11/18/16 12:15 12/18/16 12:14 11/29/16 11:22 Hydralazine HCl (Apresoline) 25 mg Q6HR GT 11/20/16 10:28 12/19/16 05:59 12/01/16 05:39 Hydromorphone HCl (Dilaudid) 0.5 mg Q4H PRN IVP Severe Pain (Pain Scale 7-10) 12/01/16 09:30 12/08/16 09:29 Lansoprazole (Prevacid) 30 mg DAILY GT 11/19/16 09:00 12/19/16 08:59 12/01/16 08:50 Lorazepam (Ativan 2mg/ml 1ml) 2 mg Q4H PRN IV For Anxiety 11/30/16 17:15 12/07/16 23:59 12/01/16 05:54 Metoprolol Tartrate (Lopressor) 12.5 mg Q12HR GT 11/30/16 09:00 12/30/16 08:59 12/01/16 08:50 Ondansetron HCl (Zofran) 4 mg Q6H PRN IVP Nausea & Vomiting 11/14/16 20:00 12/14/16 19:59 Piperacillin Sod/ Tazobactam Sod/ Dextrose (Zosyn/D5W) 110 ml @ 27.5 mls/hr Q8H IVPB 11/17/16 12:00 12/02/16 11:59 12/01/16 05:39 Polyethylene Glycol 17 gm 17 gm DAILYPRN PRN GT Constipation 11/17/16 10:41 12/15/16 13:59 11/21/16 03:06 Vitamin A/Vitamin D (A & D Oint) 1 applic EVERY 12 HOURS TOPIC 11/15/16 21:00 12/15/16 20:59 12/01/16 08:51 Julianna Trejo M.D. Dec 01, 2016 10:56
[2016-12-01] MEDS ORDERED: NS 275ml ONE (11:17)
--- NOTE | 2016-12-01 13:31 | General Progress Note ---
Assessment/Plan Assessment/Plan (1) Respiratory distress (2) Incubated on Ventilator (3) Septic Shock (4) Sacral decubitus ulcer Pt will be continued on Dilaudid. D/w Dr. Rodríguez and he concurred. Subjective Date patient seen: Dec 01, 2016 Time patient seen: 12:00 - pm ROS Limited/Unobtainable: Yes Allergies: Coded Allergies: No Known Allergies (Verified , 01/02/09) Subjective The patient is intubated on vent still in ICU. He is in no signs of pain at this time. Objective Last 24 Hour Vital Signs Date Time Temp Pulse Resp B/P Pulse Ox O2 Delivery O2 Flow Rate FiO2 12/01/16 13:00 73 20 118/70 99 Mechanical Ventilator 40 12/01/16 12:46 94/75 12/01/16 12:00 98.7 72 21 98/67 100 Mechanical Ventilator 40 12/01/16 11:26 64 18 40 12/01/16 11:00 73 20 139/74 100 Mechanical Ventilator 40 12/01/16 10:00 65 20 142/98 100 Mechanical Ventilator 40 12/01/16 09:00 69 18 145/88 100 Mechanical Ventilator 40 12/01/16 08:53 64 18 40 12/01/16 08:50 76 155/90 12/01/16 08:50 76 155/90 12/01/16 08:00 73 18 155/95 100 Mechanical Ventilator 40 12/01/16 08:00 74 12/01/16 08:00 40 12/01/16 07:00 98.1 74 21 139/88 98 Mechanical Ventilator 40 12/01/16 06:50 68 18 40 12/01/16 06:00 74 20 150/88 100 Mechanical Ventilator 40 12/01/16 05:39 146/100 12/01/16 05:00 75 20 145/90 100 Mechanical Ventilator 40 12/01/16 04:40 81 24 40 12/01/16 04:00 76 12/01/16 04:00 40 12/01/16 04:00 98.0 75 20 146/90 100 Mechanical Ventilator 40 12/01/16 03:00 75 20 141/93 100 Mechanical Ventilator 40 12/01/16 02:39 74 26 40 12/01/16 02:00 73 20 151/97 100 Mechanical Ventilator 40 12/01/16 01:00 72 19 151/89 100 Mechanical Ventilator 40 12/01/16 00:48 68 23 40 12/01/16 00:00 78 12/01/16 00:00 40 12/01/16 00:00 66 19 146/90 100 Mechanical Ventilator 40 11/30/16 23:48 128/81 11/30/16 23:00 62 18 131/85 100 Mechanical Ventilator 40 11/30/16 22:58 61 18 40 11/30/16 22:00 67 19 138/77 100 Mechanical Ventilator 40 11/30/16 21:29 70 139/75 11/30/16 21:02 70 21 40 11/30/16 21:00 70 18 146/80 100 Mechanical Ventilator 40 11/30/16 20:00 69 11/30/16 20:00 40 11/30/16 20:00 98.4 69 18 139/75 100 Mechanical Ventilator 40 11/30/16 19:00 69 20 131/85 100 Mechanical Ventilator 40 11/30/16 18:52 72 24 40 11/30/16 18:00 70 20 130/75 100 Mechanical Ventilator 40 11/30/16 17:17 140/78 11/30/16 17:00 72 18 140/78 100 Mechanical Ventilator 40 11/30/16 16:40 75 18 40 11/30/16 16:00 68 11/30/16 16:00 98.7 68 20 138/84 98 Mechanical Ventilator 40 11/30/16 16:00 40 11/30/16 15:00 69 18 138/77 100 Mechanical Ventilator 40 11/30/16 14:58 66 18 40 11/30/16 14:00 71 18 141/86 100 Mechanical Ventilator 40 Intake and Output 11/30/16 12/01/16 19:00 07:00 Intake Total 947.5 ml 747.5 ml Output Total 620 ml 720 ml Balance 327.5 ml 27.5 ml Intake Free Water 60 ml 170 ml IV Total 137.5 ml 27.5 ml Tube Feeding 600 ml 550 ml Other 150 ml Output Urine Total 620 ml 720 ml # Bowel Movements 4 6 Laboratory Tests 12/01/16 03:55: White Blood Count 8.7, Red Blood Count 4.56L, Hemoglobin 11.4L, Hematocrit 37.3L , Mean Corpuscular Volume 82, Mean Corpuscular Hemoglobin 24.9L, Mean Corpuscular Hemoglobin Concent 30.4L, Red Cell Distribution Width 17.8H, Platelet Count 457H, Mean Platelet Volume 6.8, Neutrophils (%) (Auto) 55.1, Lymphocytes (%) (Auto) 31.7, Monocytes (%) (Auto) 7.8, Eosinophils (%) (Auto) 4.6H, Basophils (%) (Auto) 0.9, Sodium Level 143, Potassium Level 3.9, Chloride Level 102, Carbon Dioxide Level 30, Anion Gap 11, Blood Urea Nitrogen 29H, Creatinine 1.4H, Estimat Glomerular Filtration Rate , Glucose Level 126H, Calcium Level 9.8 12/01/16 09:10: Arterial Blood pH 7.448, Arterial Blood Partial Pressure CO2 44.0, Arterial Blood Partial Pressure O2 139.0H, Arterial Blood HCO3 29.8H, Arterial Blood Oxygen Saturation 98.4H, Arterial Blood Base Excess 5.1, Librado Test Positive Height (Feet): 6 Height (Inches): 1.00 Weight (Pounds): 141 Objective General Appearance: other - Intubated and unresponsive EENT: other - ETT in place Cardiovascular: normal rate, regular rhythm Respiratory/Chest: chest wall non-tender, rhonchi - bilaterally, other - On vent Abdomen: non tender, soft Edema: no edema noted Arm (L), no edema noted Arm (R), no edema noted Leg (L), no edema noted Leg (R), no edema noted Pedal (L), no edema noted Pedal (R) Neurologic: unresponsive AMMY LEMOS Dec 01, 2016 13:31
[2016-12-01] MEDS: Dyna-Hex 2% Top Sol 8oz TOPIC SCH (21:17)
[2016-12-02] VITALS (24 sets, daily range): BP systolic 103–166; BP diastolic 57–117
[2016-12-02] MEDS: Piperacillin/Tazobactam 3.375 GM in D5W 110 ML IVPB SCH (04:09)
[2016-12-02 05:23] LABS: BASOPHILS % (AUTO) 0.5 % (0.0-2.0); EOSINOPHILS % (AUTO) 4.4 % (0.0-3.0); LYMPHOCYTES % (AUTO) 30.6 % (20.0-45.0); MEAN CORPUSCULAR HEMOGLOBIN 24.8 PG (27.0-31.0); MEAN CORPUSCULAR HGB CONC 30.5 G/DL (32.0-36.0); MEAN CORPUSCULAR VOLUME 81 FL (80-99); MONOCYTES % (AUTO) 6.3 % (1.0-10.0); NEUTROPHILS % (AUTO) 58.3 % (45.0-75.0); PLATELET COUNT 445 K/UL (150-450); RED BLOOD COUNT 4.52 M/UL (4.70-6.10); RED CELL DISTRIBUTION WIDTH 17.7 % (11.6-14.8); WHITE BLOOD COUNT 11.8 K/UL (4.8-10.8)
[2016-12-02] MEDS: HydrALAZINE 25mg tab GT SCH ×3 (05:48→22:33)
[2016-12-02 05:51] LABS: INR 1.1 (0.9-1.1); PROTHROMBIN TIME 11.4 SEC (9.30-11.50)
[2016-12-02 06:20] LABS: ANION GAP 10 (5-15); CALCIUM 9.9 mg/dL (8.6-10.2); CARBON DIOXIDE 31 mEQ/L (20-30); CHLORIDE 100 mEQ/L (98-107); CREATININE 1.6 mg/dL (0.7-1.2); HEMOLYSIS 0; POTASSIUM 3.8 mEQ/L (3.4-4.9); SODIUM 141 mEQ/L (135-145)
[2016-12-02] MEDS ORDERED: Lidocaine 0.5% Epi 50 mL Vial ONE (07:03)
[2016-12-02] MEDS ORDERED: Lidocaine 2% 20mg/ml/Epi 0.005mg/ml 20ml vial ONE (07:03)
[2016-12-02] MEDS ORDERED: Lidocaine 1% 10mg/ml/Epi 0.005mg/ml 30ml vial INJ ONE (07:12)
[2016-12-02 07:13] LABS: ABG ALLEN TEST POSITIVE; ABG BASE EXCESS 3.5; ABG PCO2 40.1 mmHg (35.0-45.0)
--- NOTE | 2016-12-02 07:21 | Pre-Procedure Note/Attestation ---
Pre-Procedure Note/Attestation Complete Prior to Procedure Planned Procedure: not applicable Procedure Narrative: Tracheostomy Indications for Procedure Pre-Operative Diagnosis: Resp dependent Attestation I attest that I discussed the nature of the procedure; its benefits; risks and complications; and alternatives (and the risks and benefits of such alternatives ), prior to the procedure, with the patient (or the patient's legal automotive sales representative). I attest that, if there was a reasonable possibility of needing a blood transfusion, the patient (or the patient's legal automotive sales representative) was given the [facility] standardized written summary, pursuant to the Deejay Merly Blood Safety Act ([place] Health and Safety Code # 1645, as amended). I attest that I re-evaluated the patient just prior to the surgery and that there has been no change in the patient's H&P. YARI JUDGE Dec 02, 2016 07:21
[2016-12-02] MEDS ORDERED: Midazolam 2mg/2ml Inj ONE (07:45)
[2016-12-02] MEDS ORDERED: Propofol 10mg/ml 20ml IV ONE (07:45)
[2016-12-02] MEDS ORDERED: Zemuron 50mg/5ml Inj IV ONE (07:45)
[2016-12-02] MEDS ORDERED: fentaNYL 100 mcg/2 mL IV ONE (07:45)
[2016-12-02] MEDS ORDERED: Lidocaine 1% MPF 10mg/ml 5ml ONE (07:45)
--- NOTE | 2016-12-02 08:03 | Immediate Post-Op Evaluation ---
Immediate Post-Op Evalulation Immediate Post-Op Evalulation Procedure: Tracheostomy Date of Evaluation: Dec 02, 2016 Time of Evaluation: 08:35 IV Fluids: 100 Blood Products: 0 Estimated Blood Loss: 5 Urinary Output: 0 Blood Pressure Systolic: 117 Blood Pressure Diastolic: 73 Pulse Rate: 91 Respiratory Rate: 18 O2 Sat by Pulse Oximetry: 100 Temperature (Fahrenheit): 97.1 Pain Score (1-10): 0 Nausea: No Vomiting: No Complications 0 Patient Status: awake, reacts, patent, none Hydration Status: adequate Drug: On floor Given Within 1 Hr of Incision: LEEANNE Browne M.D. Dec 02, 2016 08:03
--- NOTE | 2016-12-02 08:03 | Anethesia Preoperative Eval ---
Anesthesia Pre-op PMH/ROS General Date of Evaluation: Dec 02, 2016 Anesthesiologist: Tone ASA Score: ASA 4 Mallampati Score Class I : Soft palate, uvula, fauces, pillars visible Class II: Soft palate, uvula, fauces visible Class III: Soft palate, base of uvula visible Class IV: Only hard plate visible Mallampati Classification: Class II Surgeon: Ivis Diagnosis: Respiratory failure Surgical Procedure: Tracheostomy Anesthesia History: none Family History: no anesthesia problems Allergies: Coded Allergies: No Known Allergies (Verified , 01/02/09) Medications: see eMAR Past Medical History Cardiovascular: Reports: CAD, HTN, [place] - s/p NSTEMI, other - HLD, Denies: arrhythmia, valve dz Pulmonary: Reports: asthma, other - respirstory failure-on mechanical ventilation, Denies: COPD, LICO Gastrointestinal/Genitourinary: Reports: GERD, Denies: CRI, ESRD, other Neurologic/Psychiatric: Reports: CVA, other - seizures, Denies: TIA, dementia, depression/anxiety Endocrine: Denies: DM, hypothyroidism, other, steroids HEENT: Denies: CHENEGA (L), CHENEGA (R), cataract (L), cataract (R), glaucoma, other Hematology/Immune: Denies: DVT, anemia, bleeding disorder, other Musculoskeletal/Integumentary: Reports: DJD, OA, Denies: DDD, RA, edema, other PSxH Narrative: CABG, G-tube Anesthesia Pre-op Phys. Exam Physician Exam Last Vital Signs Date Time Temp Pulse Resp B/P Pulse Ox O2 Delivery O2 Flow Rate FiO2 12/02/16 07:36 157/96 12/02/16 07:00 77 21 100 Mechanical Ventilator 40 12/02/16 04:00 97.9 Constitutional: NAD Cardiovascular: RRR Respiratory: CTA Airway Exam Mallampati Score: Class II Anesthesia Pre-op A/P Labs Hematology Test 12/02/16 04:00 White Blood Count 11.8 K/UL (4.8-10.8) H Red Blood Count 4.52 M/UL (4.70-6.10) L Hemoglobin 11.2 G/DL (14.2-18.0) L Hematocrit 36.7 % (42.0-52.0) L Mean Corpuscular Volume 81 FL (80-99) Mean Corpuscular Hemoglobin 24.8 PG (27.0-31.0) L Mean Corpuscular Hemoglobin Concent 30.5 G/DL (32.0-36.0) L Red Cell Distribution Width 17.7 % (11.6-14.8) H Platelet Count 445 K/UL (150-450) Mean Platelet Volume 6.0 FL (6.5-10.1) L Neutrophils (%) (Auto) 58.3 % (45.0-75.0) Lymphocytes (%) (Auto) 30.6 % (20.0-45.0) Monocytes (%) (Auto) 6.3 % (1.0-10.0) Eosinophils (%) (Auto) 4.4 % (0.0-3.0) H Basophils (%) (Auto) 0.5 % (0.0-2.0) Coagulation Test 12/02/16 04:00 Prothrombin Time 11.4 SEC (9.30-11.50) Prothromb Time International Ratio 1.1 (0.9-1.1) Activated Partial Thromboplast Time 33 SEC (23-33) Chemistry Test 12/02/16 04:00 Sodium Level 141 mEQ/L (135-145) Potassium Level 3.8 mEQ/L (3.4-4.9) Chloride Level 100 mEQ/L (98-107) Carbon Dioxide Level 31 mEQ/L (20-30) H Anion Gap 10 (5-15) Blood Urea Nitrogen 30 mg/dL (7-23) H Creatinine 1.6 mg/dL (0.7-1.2) H Estimat Glomerular Filtration Rate mL/min (>60) Glucose Level 109 mg/dL (74-106) H Calcium Level 9.9 mg/dL (8.6-10.2) Studies Pre-op Studies: EKG - sr Risk Assessment & Plan Assessment: ASA IV Plan: GA Status Change Before Surgery: No Pre-Antibiotics Drug: On floor LEEANNE SOLANO M.D. Dec 02, 2016 08:03
--- NOTE | 2016-12-02 08:22 | Brief Operative Note ---
Immediate Post Operative Note Operative Note Chief Complaint: Resp. dependent Pre-op Diagnosis: Resp dependent Procedure: Trach Post-op Diagnosis: same as pre-op Surgeon: Juan Judge Gun Fertilizer: none Additional Surgeons: none Anesthesia: general Specimen: none Complications: none Condition: stable Estimated Blood Loss: volume - 5cc Drains: other - Angela #8 with cuff, non fenestrated Packing: [email or web address] [email or web address] Implant(s) used?: No YARI JUDGE Dec 02, 2016 08:22
--- NOTE | 2016-12-02 08:32 | General Progress Note ---
Assessment/Plan Assessment/Plan (1) Respiratory distress (2) Incubated on Ventilator (3) Septic Shock (4) Sacral decubitus ulcer Pt will be continued on Dilaudid. D/w Dr. Rodríguez and he concurred. Subjective Date patient seen: Dec 02, 2016 Time patient seen: 06:00 - am Allergies: Coded Allergies: No Known Allergies (Verified , 01/02/09) Subjective The patient is intubated on vent still in ICU. patient will be going for trachelotomy later this morning. Objective Last 24 Hour Vital Signs Date Time Temp Pulse Resp B/P Pulse Ox O2 Delivery O2 Flow Rate FiO2 12/02/16 07:36 157/96 12/02/16 07:00 77 21 141/117 100 Mechanical Ventilator 40 12/02/16 06:58 82 18 40 12/02/16 06:00 80 21 127/106 100 Mechanical Ventilator 40 12/02/16 05:48 148/92 12/02/16 05:00 76 19 144/86 100 Mechanical Ventilator 40 12/02/16 04:52 85 19 40 12/02/16 04:00 78 12/02/16 04:00 40 12/02/16 04:00 97.9 79 20 144/86 100 Mechanical Ventilator 40 12/02/16 03:08 79 21 40 12/02/16 03:00 81 21 153/87 100 Mechanical Ventilator 40 12/02/16 02:00 80 21 166/98 100 Mechanical Ventilator 40 12/02/16 01:00 77 20 160/80 100 Mechanical Ventilator 40 12/02/16 00:38 79 18 40 12/02/16 00:00 97.9 74 19 162/89 100 Mechanical Ventilator 40 12/02/16 00:00 40 12/02/16 00:00 68 12/01/16 23:19 155/84 12/01/16 23:04 68 18 40 12/01/16 23:00 72 19 160/91 100 Mechanical Ventilator 40 12/01/16 22:00 68 18 140/79 100 Mechanical Ventilator 40 12/01/16 21:16 75 151/84 12/01/16 21:01 72 18 40 12/01/16 21:00 73 18 140/79 100 Mechanical Ventilator 40 12/01/16 21:00 40 12/01/16 20:00 97.6 74 18 151/84 100 Mechanical Ventilator 40 12/01/16 20:00 72 12/01/16 19:00 70 19 150/81 100 Mechanical Ventilator 40 12/01/16 18:58 75 24 40 12/01/16 18:00 76 20 106/84 100 Mechanical Ventilator 40 12/01/16 17:35 125/80 12/01/16 17:03 75 18 40 12/01/16 17:00 74 19 125/80 100 Mechanical Ventilator 40 12/01/16 16:00 66 12/01/16 16:00 40 12/01/16 16:00 98.1 67 20 131/78 100 Mechanical Ventilator 40 12/01/16 15:21 66 18 40 12/01/16 15:00 68 20 124/75 100 Mechanical Ventilator 40 12/01/16 14:00 69 20 123/71 99 Mechanical Ventilator 40 12/01/16 13:29 72 18 40 12/01/16 13:00 73 20 118/70 99 Mechanical Ventilator 40 12/01/16 12:46 94/75 12/01/16 12:00 68 12/01/16 12:00 40 12/01/16 12:00 98.7 72 21 98/67 100 Mechanical Ventilator 40 12/01/16 11:26 64 18 40 12/01/16 11:00 73 20 139/74 100 Mechanical Ventilator 40 12/01/16 10:00 65 20 142/98 100 Mechanical Ventilator 40 12/01/16 09:00 69 18 145/88 100 Mechanical Ventilator 40 12/01/16 08:53 64 18 40 12/01/16 08:50 76 155/90 12/01/16 08:50 76 155/90 Intake and Output 12/01/16 12/02/16 19:00 07:00 Intake Total 1032.5 ml 520.0 ml Output Total 470 ml 410 ml Balance 562.5 ml 110.0 ml Intake Free Water 120 ml 60 ml IV Total 192.5 ml 110.0 ml Tube Feeding 600 ml 200 ml Other 120 ml 150 ml Output Urine Total 470 ml 410 ml # Bowel Movements 5 Laboratory Tests 12/01/16 09:10: Arterial Blood pH 7.448, Arterial Blood Partial Pressure CO2 44.0, Arterial Blood Partial Pressure O2 139.0H, Arterial Blood HCO3 29.8H, Arterial Blood Oxygen Saturation 98.4H, Arterial Blood Base Excess 5.1, Librado Test Positive 12/02/16 04:00: White Blood Count 11.8H, Red Blood Count 4.52L, Hemoglobin 11.2L, Hematocrit 36.7L, Mean Corpuscular Volume 81, Mean Corpuscular Hemoglobin 24.8L, Mean Corpuscular Hemoglobin Concent 30.5L, Red Cell Distribution Width 17.7H, Platelet Count 445, Mean Platelet Volume 6.0L, Neutrophils (%) (Auto) 58.3, Lymphocytes (%) (Auto) 30.6, Monocytes (%) (Auto) 6.3, Eosinophils (%) (Auto) 4.4H, Basophils (%) (Auto) 0.5, Prothrombin Time 11.4, Prothromb Time International Ratio 1.1, Activated Partial Thromboplast Time 33, Sodium Level 141, Potassium Level 3.8, Chloride Level 100, Carbon Dioxide Level 31H, Anion Gap 10, Blood Urea Nitrogen 30H, Creatinine 1.6H, Estimat Glomerular Filtration Rate , Glucose Level 109H, Calcium Level 9.9 12/02/16 06:58: Arterial Blood pH 7.456H, Arterial Blood Partial Pressure CO2 40.1, Arterial Blood Partial Pressure O2 110.4H, Arterial Blood HCO3 27.6H, Arterial Blood Oxygen Saturation 98.2H, Arterial Blood Base Excess 3.5, Librado Test Positive Height (Feet): 6 Height (Inches): 1.00 Weight (Pounds): 171 Objective General Appearance: other - Intubated and unresponsive EENT: other - ETT in place Cardiovascular: normal rate, regular rhythm Respiratory/Chest: chest wall non-tender, rhonchi - bilaterally, other - On vent Abdomen: non tender, soft Edema: no edema noted Arm (L), no edema noted Arm (R), no edema noted Leg (L), no edema noted Leg (R), no edema noted Pedal (L), no edema noted Pedal (R) Neurologic: unresponsive AMMY LEMOS Dec 02, 2016 08:32
--- NOTE | 2016-12-02 08:39 | Diagnostic Imaging Report ---
Indication: Dyspnea Technique: XRAY CHEST 1 V Comparison: 11/29/16 Findings: Endotracheal tube and right PICC line are unchanged. The cardiomediastinal silhouette is stable. Sternotomy wires and valve replacement are again noted. There is mild bibasilar atelectasis. No new consolidation is identified. Osseous structures are stable. Impression: No interval change from 11/29/16.
--- NOTE | 2016-12-02 08:40 | Diagnostic Imaging Report ---
Indication: Shortness of breath Technique: XRAY CHEST 1 V Comparison: 11/30/16 Findings: Right PICC line and endotracheal tube are unchanged. The cardiomediastinal silhouette is stable. There is mild bibasilar atelectasis with small pleural effusions not excluded. No new infiltrates are seen. Osseous structures are stable. Impression: No significant change from 11/30/16.
[2016-12-02] MEDS: Metoprolol Tartrate 12.5mg TAB GT SCH ×2 (09:01→20:50)
[2016-12-02] MEDS: Heparin 5000 units/ml inj SUBQ SCH ×2 (09:02→20:51)
[2016-12-02] MEDS: Vitamin A&D Oint 2oz Tube TOPIC SCH ×2 (09:02→20:52)
--- NOTE | 2016-12-02 09:45 | Progress Note ---
CARDIOLOGY PROGRESS NOTE SUBJECTIVE: The patient remains on ventilator support. He continues on IV antibiotics for bacteremia with Proteus ESBL. has recovered. Blood pressure readings in fact increasing now and antihypertensives have been advanced. The patient has had episodes of episodic diuresis given with good improvement in his clinical parameters as well as natriuretic peptide assays. OBJECTIVE: GENERAL: Ventilated at this time and orally intubated. VITAL SIGNS: Blood pressure 155/95, heart rate 73, respiratory rate 18, and afebrile. LUNGS: Bilateral breath sounds. Few rales. HEART: Regular rhythm and rate. Normal S1 and S2 with a fourth heart sound. ABDOMEN: Soft. EXTREMITIES: Trace edema. IMPRESSION: 1. Recovered shock . 2. Hypertensive heart disease. 3. Acute on chronic diastolic congestive heart failure, improved. PLAN: Advance hydralazine. Remainder of cardiovascular regimen without change for now. Hold additional diuresis at this time. Reassess daily. Continue weaning efforts. Trach will need to be planned. Riki Francois M.D. DR: Alejandro JOB#: [id number] CC:
--- NOTE | 2016-12-02 09:45 | Consultation ---
DATE OF CONSULTATION: 11/29/2016 HEAD AND NECK SURGERY, EAR, NOSE, AND THROAT CONSULTATION CONSULTING PHYSICIAN: Khris Langston M.D. REQUESTING PHYSICIAN: Luca Guerrier D.O. INDICATION FOR CONSULTATION: The patient in prolonged respiratory ventilator dependency, on an endotracheal tube. I have been asked to do trach. He was admitted in septic shock, respiratory distress, urinary tract infection, hyperkalemia, and renal failure, intubated. I had been speaking with the family over the last week as they did not want to do a trach initially. They waited till Friday. He was unable to be extubated. They decided they would move ahead and had a trach done. It has now been over 2 weeks. PAST MEDICAL HISTORY: Significant for this 86-year-old male has hypertension, seizure disorder, aortic valve replacement, hyperlipidemia, and CVA. PAST SURGICAL HISTORY: Coronary artery bypass graft, aortic valve replacement, and history of G-tube placement. MEDICATIONS: Include Apresoline, sodium chloride, Dilaudid, Ativan, Lopressor, Prevacid, Norvasc, MiraLax, Zofran, and Tylenol. ALLERGIES: No known drug allergies. PHYSICAL EXAMINATION: GENERAL: Height is 185.42 cm, 77.564 kilograms, and BMI 22.6. NECK: Landmarks are sufficient for tracheostomy. Remainder of the head and neck exam was unremarkable at this point with regards to doing a trach. ASSESSMENT: He is a candidate for a trach. Plan: Trach is scheduled on Friday, 03 of December at 7:30 in the morning. Please note, I have spoken with the daughter twice in the last week regarding going ahead with a trach. First time, she want to hold off per family concern and second time, she decided to move forward. All questions entertained and answered. Thank you very much for asking my opinion in the care and treatment of this patient. Khris Langston M.D. DR: BELLA JOB#: [id number] CC:
--- NOTE | 2016-12-02 10:21 | Pulmonolgy Critical Care Note ---
Critical Care - Asmt/Plan Problems: (1) Respiratory distress (2) Acute encephalopathy (3) HCAP (healthcare-associated pneumonia) (4) Sepsis (5) Anemia (6) Feeding by G-tube Respiratory: monitor respiratory rate, adjust FIO2, CXR Cardiac: continue to monitor HR/BP Renal: F/U I&O, keep IV fluid, check electrolytes Infectious Disease: check cultures Gastrointestinal: continue feedings/current rate, hold feedings Endocrine: check TSH, check HgA1C Hematologic: monitor H/H Neurologic: PRN Ativan, PRN Morphine Affect: PRN ativan Prophylaxis: Protonix Disposition: keep in ICU Notes Reviewed: wellness nurse, cardio Critical Care - Objective Last 24 Hour Vital Signs Date Time Temp Pulse Resp B/P Pulse Ox O2 Delivery O2 Flow Rate FiO2 12/02/16 10:00 83 17 126/57 99 Mechanical Ventilator 40 12/02/16 09:02 91 18 100 12/02/16 09:01 80 117/73 12/02/16 09:01 78 117/73 12/02/16 09:00 77 18 117/67 100 Mechanical Ventilator 40 12/02/16 08:33 79 18 40 12/02/16 08:00 97.9 80 18 117/73 100 Mechanical Ventilator 40 12/02/16 08:00 40 12/02/16 08:00 78 12/02/16 07:36 157/96 12/02/16 07:00 77 21 141/117 100 Mechanical Ventilator 40 12/02/16 06:58 82 18 40 12/02/16 06:00 80 21 127/106 100 Mechanical Ventilator 40 12/02/16 05:48 148/92 12/02/16 05:00 76 19 144/86 100 Mechanical Ventilator 40 12/02/16 04:52 85 19 40 12/02/16 04:00 78 12/02/16 04:00 40 12/02/16 04:00 97.9 79 20 144/86 100 Mechanical Ventilator 40 12/02/16 03:08 79 21 40 12/02/16 03:00 81 21 153/87 100 Mechanical Ventilator 40 12/02/16 02:00 80 21 166/98 100 Mechanical Ventilator 40 12/02/16 01:00 77 20 160/80 100 Mechanical Ventilator 40 12/02/16 00:38 79 18 40 12/02/16 00:00 97.9 74 19 162/89 100 Mechanical Ventilator 40 12/02/16 00:00 40 12/02/16 00:00 68 12/01/16 23:19 155/84 12/01/16 23:04 68 18 40 12/01/16 23:00 72 19 160/91 100 Mechanical Ventilator 40 12/01/16 22:00 68 18 140/79 100 Mechanical Ventilator 40 12/01/16 21:16 75 151/84 12/01/16 21:01 72 18 40 12/01/16 21:00 73 18 140/79 100 Mechanical Ventilator 40 12/01/16 21:00 40 12/01/16 20:00 97.6 74 18 151/84 100 Mechanical Ventilator 40 12/01/16 20:00 72 12/01/16 19:00 70 19 150/81 100 Mechanical Ventilator 40 12/01/16 18:58 75 24 40 12/01/16 18:00 76 20 106/84 100 Mechanical Ventilator 40 12/01/16 17:35 125/80 12/01/16 17:03 75 18 40 12/01/16 17:00 74 19 125/80 100 Mechanical Ventilator 40 12/01/16 16:00 66 12/01/16 16:00 40 12/01/16 16:00 98.1 67 20 131/78 100 Mechanical Ventilator 40 12/01/16 15:21 66 18 40 12/01/16 15:00 68 20 124/75 100 Mechanical Ventilator 40 12/01/16 14:00 69 20 123/71 99 Mechanical Ventilator 40 12/01/16 13:29 72 18 40 12/01/16 13:00 73 20 118/70 99 Mechanical Ventilator 40 12/01/16 12:46 94/75 12/01/16 12:00 68 12/01/16 12:00 40 12/01/16 12:00 98.7 72 21 98/67 100 Mechanical Ventilator 40 12/01/16 11:26 64 18 40 12/01/16 11:00 73 20 139/74 100 Mechanical Ventilator 40 Status: awake Condition: critical HEENT: atraumatic, normocephalic Lungs: clear, chest wall tender Heart: HR/BP unstable Abdomen: soft, non-tender, active bowel sounds Extremities: no C/C/E, edema Decubiti: location Critical Care - Subjective ROS Limited/Unobtainable: Yes ICU Day: 18 Intubation Day: 18 Interval Events: got trached today FI02: 40 Vent Support Breath Rate: 18 Vent Support Mode: AC Vent Tidal Volume: 500 Sputum Amount: Moderate PEEP: 5.0 PIP: 24 Tube Feeding Amount: 50 I&O: Intake and Output 12/01/16 12/02/16 19:00 07:00 Intake Total 1032.5 ml 520.0 ml Output Total 470 ml 410 ml Balance 562.5 ml 110.0 ml Intake Free Water 120 ml 60 ml IV Total 192.5 ml 110.0 ml Tube Feeding 600 ml 200 ml Other 120 ml 150 ml Output Urine Total 470 ml 410 ml # Bowel Movements 5 CXR: no change ET-Tube: 8.0 ET Position: 24 Labs: Laboratory Tests Test 12/02/16 04:00 12/02/16 06:58 White Blood Count 11.8 K/UL (4.8-10.8) H Red Blood Count 4.52 M/UL (4.70-6.10) L Hemoglobin 11.2 G/DL (14.2-18.0) L Hematocrit 36.7 % (42.0-52.0) L Mean Corpuscular Volume 81 FL (80-99) Mean Corpuscular Hemoglobin 24.8 PG (27.0-31.0) L Mean Corpuscular Hemoglobin Concent 30.5 G/DL (32.0-36.0) L Red Cell Distribution Width 17.7 % (11.6-14.8) H Platelet Count 445 K/UL (150-450) Mean Platelet Volume 6.0 FL (6.5-10.1) L Neutrophils (%) (Auto) 58.3 % (45.0-75.0) Lymphocytes (%) (Auto) 30.6 % (20.0-45.0) Monocytes (%) (Auto) 6.3 % (1.0-10.0) Eosinophils (%) (Auto) 4.4 % (0.0-3.0) H Basophils (%) (Auto) 0.5 % (0.0-2.0) Prothrombin Time 11.4 SEC (9.30-11.50) Prothromb Time International Ratio 1.1 (0.9-1.1) Activated Partial Thromboplast Time 33 SEC (23-33) Sodium Level 141 mEQ/L (135-145) Potassium Level 3.8 mEQ/L (3.4-4.9) Chloride Level 100 mEQ/L (98-107) Carbon Dioxide Level 31 mEQ/L (20-30) H Anion Gap 10 (5-15) Blood Urea Nitrogen 30 mg/dL (7-23) H Creatinine 1.6 mg/dL (0.7-1.2) H Estimat Glomerular Filtration Rate mL/min (>60) Glucose Level 109 mg/dL (74-106) H Calcium Level 9.9 mg/dL (8.6-10.2) Arterial Blood pH 7.456 (7.350-7.450) Arterial Blood Partial Pressure CO2 40.1 mmHg (35.0-45.0) Arterial Blood Partial Pressure O2 110.4 mmHg (75.0-100.0) H Arterial Blood HCO3 27.6 mmol/L (22.0-26.0) H Arterial Blood Oxygen Saturation 98.2 % (92.0-98.0) H Arterial Blood Base Excess 3.5 Librado Test Positive MARY CABELLO Dec 02, 2016 10:21
--- NOTE | 2016-12-02 10:48 | General Progress Note ---
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 infection; L03.319 - Cellulitis of trunk, unspecified SNOMED: 173752792, 029383205 (3) Anemia ICD Codes: D64.9 - Anemia, unspecified SNOMED: 528554928 (4) Respiratory distress ICD Codes: R06.00 - Dyspnea, unspecified SNOMED: 250523494 (5) Renal failure ICD Codes: N19 - Unspecified kidney failure SNOMED: 59315598 Qualifiers: Qualified Codes: N17.9 - Acute kidney failure, unspecified Assessment/Plan GTF when ok with surgery monitor H&H icu care ppi fu Subjective ROS Limited/Unobtainable: No Allergies: Coded Allergies: No Known Allergies (Verified , 01/02/09) Subjective s/p trach Objective Last 24 Hour Vital Signs Date Time Temp Pulse Resp B/P Pulse Ox O2 Delivery O2 Flow Rate FiO2 12/02/16 10:00 83 17 126/57 99 Mechanical Ventilator 40 12/02/16 09:02 91 18 100 12/02/16 09:01 80 117/73 12/02/16 09:01 78 117/73 12/02/16 09:00 77 18 117/67 100 Mechanical Ventilator 40 12/02/16 08:33 79 18 40 12/02/16 08:00 97.9 80 18 117/73 100 Mechanical Ventilator 40 12/02/16 08:00 40 12/02/16 08:00 78 12/02/16 07:36 157/96 12/02/16 07:00 77 21 141/117 100 Mechanical Ventilator 40 12/02/16 06:58 82 18 40 12/02/16 06:00 80 21 127/106 100 Mechanical Ventilator 40 12/02/16 05:48 148/92 12/02/16 05:00 76 19 144/86 100 Mechanical Ventilator 40 12/02/16 04:52 85 19 40 12/02/16 04:00 78 12/02/16 04:00 40 12/02/16 04:00 97.9 79 20 144/86 100 Mechanical Ventilator 40 12/02/16 03:08 79 21 40 12/02/16 03:00 81 21 153/87 100 Mechanical Ventilator 40 12/02/16 02:00 80 21 166/98 100 Mechanical Ventilator 40 12/02/16 01:00 77 20 160/80 100 Mechanical Ventilator 40 12/02/16 00:38 79 18 40 12/02/16 00:00 97.9 74 19 162/89 100 Mechanical Ventilator 40 12/02/16 00:00 40 12/02/16 00:00 68 12/01/16 23:19 155/84 12/01/16 23:04 68 18 40 12/01/16 23:00 72 19 160/91 100 Mechanical Ventilator 40 12/01/16 22:00 68 18 140/79 100 Mechanical Ventilator 40 12/01/16 21:16 75 151/84 12/01/16 21:01 72 18 40 12/01/16 21:00 73 18 140/79 100 Mechanical Ventilator 40 12/01/16 21:00 40 12/01/16 20:00 97.6 74 18 151/84 100 Mechanical Ventilator 40 12/01/16 20:00 72 12/01/16 19:00 70 19 150/81 100 Mechanical Ventilator 40 12/01/16 18:58 75 24 40 1617 18:00 76 20 106/84 100 Mechanical Ventilator 40 12/01/16 17:35 125/80 12/01/16 17:03 75 18 40 12/01/16 17:00 74 19 125/80 100 Mechanical Ventilator 40 12/01/16 16:00 66 1617 16:00 40 12/01/16 16:00 98.1 67 20 131/78 100 Mechanical Ventilator 40 12/01/16 15:21 66 18 40 1617 15:00 68 20 124/75 100 Mechanical Ventilator 40 12/01/16 14:00 69 20 123/71 99 Mechanical Ventilator 40 17 13:29 72 18 40 1617 13:00 73 20 118/70 99 Mechanical Ventilator 40 17 12:46 94/75 17 12:00 68 12/01/16 12:00 40 12/01/16 12:00 98.7 72 21 98/67 100 Mechanical Ventilator 40 17 11:26 64 18 40 1617 11:00 73 20 139/74 100 Mechanical Ventilator 40 Intake and Output 12/01/16 12/02/16 19:00 07:00 Intake Total 1032.5 ml 520.0 ml Output Total 470 ml 410 ml Balance 562.5 ml 110.0 ml Intake Free Water 120 ml 60 ml IV Total 192.5 ml 110.0 ml Tube Feeding 600 ml 200 ml Other 120 ml 150 ml Output Urine Total 470 ml 410 ml # Bowel Movements 5 Laboratory Tests 12/02/16 04:00: White Blood Count 11.8H, Red Blood Count 4.52L, Hemoglobin 11.2L, Hematocrit 36.7L, Mean Corpuscular Volume 81, Mean Corpuscular Hemoglobin 24.8L, Mean Corpuscular Hemoglobin Concent 30.5L, Red Cell Distribution Width 17.7H, Platelet Count 445, Mean Platelet Volume 6.0L, Neutrophils (%) (Auto) 58.3, Lymphocytes (%) (Auto) 30.6, Monocytes (%) (Auto) 6.3, Eosinophils (%) (Auto) 4.4H, Basophils (%) (Auto) 0.5, Prothrombin Time 11.4, Prothromb Time International Ratio 1.1, Activated Partial Thromboplast Time 33, Sodium Level 141, Potassium Level 3.8, Chloride Level 100, Carbon Dioxide Level 31H, Anion Gap 10, Blood Urea Nitrogen 30H, Creatinine 1.6H, Estimat Glomerular Filtration Rate , Glucose Level 109H, Calcium Level 9.9 12/02/16 06:58: Arterial Blood pH 7.456H, Arterial Blood Partial Pressure CO2 40.1, Arterial Blood Partial Pressure O2 110.4H, Arterial Blood HCO3 27.6H, Arterial Blood Oxygen Saturation 98.2H, Arterial Blood Base Excess 3.5, Librado Test Positive Height (Feet): 6 Height (Inches): 1.00 Weight (Pounds): 171 General Appearance: no apparent distress EENT: normal ENT inspection Neck: supple Cardiovascular: normal rate Respiratory/Chest: decreased breath sounds Abdomen: normal bowel sounds, non tender, soft Extremities: non-tender MELISSA SOLOMON Dec 02, 2016 10:48
--- NOTE | 2016-12-02 11:15 | Operative Note - Dictated ---
DATE OF OPERATION: 12/02/2016 SURGEON: Khris Langston M.D. P[employer] FARMER: None. Anesthesia: General endotracheal and 10 mL of 1% lidocaine with 1:100,000 epinephrine. INDICATION FOR SURGERY: The patient has been intubated for approximately two weeks without anticipation of extubation. PREOPERATIVE DIAGNOSIS: The patient has been intubated for approximately two weeks without anticipation of extubation. POSTOPERATIVE DIAGNOSIS: The patient has been intubated for approximately two weeks without anticipation of extubation. FINDINGS: Landmarks were good. SURGERY: Proceeded without difficulty trach placed. PROCEDURE: Tracheostomy. TECHNIQUE: The patient was prepped and draped in the usual manner after a time-out was performed and all agreed as to the appropriate equipment and procedure to be done. The patient was prepped and draped in the usual manner, a 10 mL of 1% lidocaine 1,00:000 epinephrine were placed within two fingerbreadths between the sternal notch and superiorly midline. I then proceeded to make an incision with a 15 blade approximately an inch and a half long. I then cauterized down to the strap muscles which were divided with electrocautery in the vertical manner while pulling them apart with an [place] on either side. The Bovie was set at 14. I then proceeded to identify the cricoid, pull that up with a trach hook, divided the thyroid with the electrocautery in the midline. Then wiped the face of the trach, cleaned with a 4 x 4. An incision was made between the second and third cartilaginous ring and a small incision made in the third ring with the scissors bilaterally in order to do the fashion a inferiorly-based tracheal cartilage flap that is attached with a 3-0 silk to the lower epithelial edge of the new stoma. In concert with the anesthesiologist, the endotracheal tube was pulled up, the tip was just superior to the new stoma and a #8 Shiley with cuff nonfenestrated was placed without difficulty. It was tied on the left side two fingerbreadths loose. I then placed four 3-0 silk sutures without difficulty to hold the trach flange in place. Iodoform gauze was packed into the wound and a piece of Telfa was placed between the flange of the trach and the patient's skin in order protected. Sponge and needle count correct. ESTIMATED BLOOD LOSS: 5 mL. COUNTS: None. DRAINS: None. Khris Langston M.D. DR: KAMRAN JOB#: [id number] CC:
--- NOTE | 2016-12-02 13:49 | General Progress Note ---
Assessment/Plan Problem List: (1) Sepsis ICD Codes: A41.9 - Sepsis, unspecified organism SNOMED: 93123465 (2) Septic shock ICD Codes: A41.9 - Sepsis, unspecified organism; R65.21 - Severe sepsis with septic shock SNOMED: 21396581 (3) Renal failure ICD Codes: N19 - Unspecified kidney failure SNOMED: 18335196 Qualifiers: Qualified Codes: N17.9 - Acute kidney failure, unspecified (4) Respiratory distress ICD Codes: R06.00 - Dyspnea, unspecified SNOMED: 838727232 (5) Pneumonia ICD Codes: J18.9 - Pneumonia, unspecified organism SNOMED: 623049808 (6) UTI (urinary tract infection) ICD Codes: N39.0 - Urinary tract infection, site not specified SNOMED: 53989522 Status: stable, progressing, tolerating diet Assessment/Plan vent abx cbc bmp am, naima ltach eval Subjective Constitutional: Reports: weakness Allergies: Coded Allergies: No Known Allergies (Verified , 01/02/09) All Systems: reviewed and negative except above Subjective s/p trach in icu Objective Last 24 Hour Vital Signs Date Time Temp Pulse Resp B/P Pulse Ox O2 Delivery O2 Flow Rate FiO2 12/02/16 13:00 79 19 103/64 100 Mechanical Ventilator 40 12/02/16 12:32 84 21 40 12/02/16 12:00 76 12/02/16 12:00 98.5 72 18 112/73 100 Mechanical Ventilator 40 12/02/16 12:00 40 12/02/16 11:00 80 19 110/75 100 Mechanical Ventilator 40 12/02/16 10:58 80 18 40 12/02/16 10:00 83 17 126/57 99 Mechanical Ventilator 40 12/02/16 09:02 91 18 100 12/02/16 09:01 80 117/73 12/02/16 09:01 78 117/73 12/02/16 09:00 77 18 117/67 100 Mechanical Ventilator 40 12/02/16 08:33 79 18 40 12/02/16 08:00 97.9 80 18 117/73 100 Mechanical Ventilator 40 12/02/16 08:00 40 12/02/16 08:00 78 12/02/16 07:36 157/96 12/02/16 07:00 77 21 141/117 100 Mechanical Ventilator 40 12/02/16 06:58 82 18 40 12/02/16 06:00 80 21 127/106 100 Mechanical Ventilator 40 12/02/16 05:48 148/92 12/02/16 05:00 76 19 144/86 100 Mechanical Ventilator 40 12/02/16 04:52 85 19 40 12/02/16 04:00 78 12/02/16 04:00 40 12/02/16 04:00 97.9 79 20 144/86 100 Mechanical Ventilator 40 12/02/16 03:08 79 21 40 12/02/16 03:00 81 21 153/87 100 Mechanical Ventilator 40 12/02/16 02:00 80 21 166/98 100 Mechanical Ventilator 40 12/02/16 01:00 77 20 160/80 100 Mechanical Ventilator 40 12/02/16 00:38 79 18 40 12/02/16 00:00 97.9 74 19 162/89 100 Mechanical Ventilator 40 12/02/16 00:00 40 12/02/16 00:00 68 12/01/16 23:19 155/84 12/01/16 23:04 68 18 40 12/01/16 23:00 72 19 160/91 100 Mechanical Ventilator 40 12/01/16 22:00 68 18 140/79 100 Mechanical Ventilator 40 12/01/16 21:16 75 151/84 12/01/16 21:01 72 18 40 12/01/16 21:00 73 18 140/79 100 Mechanical Ventilator 40 12/01/16 21:00 40 12/01/16 20:00 97.6 74 18 151/84 100 Mechanical Ventilator 40 17 20:00 72 12/01/16 19:00 70 19 150/81 100 Mechanical Ventilator 40 1617 18:58 75 24 40 16/17 18:00 76 20 106/84 100 Mechanical Ventilator 40 16/17 17:35 125/80 16/17 17:03 75 18 40 16/17 17:00 74 19 125/80 100 Mechanical Ventilator 40 16/17 16:00 66 16/17 16:00 40 16/17 16:00 98.1 67 20 131/78 100 Mechanical Ventilator 40 16/17 15:21 66 18 40 716/17 15:00 68 20 124/75 100 Mechanical Ventilator 40 7/16/17 14:00 69 20 123/71 99 Mechanical Ventilator 40 Intake and Output 12/01/16 12/02/16 19:00 07:00 Intake Total 1032.5 ml 520.0 ml Output Total 470 ml 410 ml Balance 562.5 ml 110.0 ml Intake Free Water 120 ml 60 ml IV Total 192.5 ml 110.0 ml Tube Feeding 600 ml 200 ml Other 120 ml 150 ml Output Urine Total 470 ml 410 ml # Bowel Movements 5 Laboratory Tests 12/02/16 04:00: White Blood Count 11.8H, Red Blood Count 4.52L, Hemoglobin 11.2L, Hematocrit 36.7L, Mean Corpuscular Volume 81, Mean Corpuscular Hemoglobin 24.8L, Mean Corpuscular Hemoglobin Concent 30.5L, Red Cell Distribution Width 17.7H, Platelet Count 445, Mean Platelet Volume 6.0L, Neutrophils (%) (Auto) 58.3, Lymphocytes (%) (Auto) 30.6, Monocytes (%) (Auto) 6.3, Eosinophils (%) (Auto) 4.4H, Basophils (%) (Auto) 0.5, Prothrombin Time 11.4, Prothromb Time International Ratio 1.1, Activated Partial Thromboplast Time 33, Sodium Level 141, Potassium Level 3.8, Chloride Level 100, Carbon Dioxide Level 31H, Anion Gap 10, Blood Urea Nitrogen 30H, Creatinine 1.6H, Estimat Glomerular Filtration Rate , Glucose Level 109H, Calcium Level 9.9 12/02/16 06:58: Arterial Blood pH 7.456H, Arterial Blood Partial Pressure CO2 40.1, Arterial Blood Partial Pressure O2 110.4H, Arterial Blood HCO3 27.6H, Arterial Blood Oxygen Saturation 98.2H, Arterial Blood Base Excess 3.5, Librado Test Positive Height (Feet): 6 Height (Inches): 1.00 Weight (Pounds): 171 General Appearance: lethargic EENT: normal ENT inspection Neck: normal alignment Cardiovascular: normal peripheral pulses, normal rate, regular rhythm Respiratory/Chest: chest wall non-tender, lungs clear, normal breath sounds Abdomen: normal bowel sounds, non tender, soft Extremities: normal inspection Edema: no edema noted Arm (L), no edema noted Arm (R), no edema noted Leg (L), no edema noted Leg (R), no edema noted Pedal (L), no edema noted Pedal (R), no edema noted Generalized Neurologic: motor weakness Skin: normal pigmentation, warm/dry CASS YANES Dec 02, 2016 13:49
[2016-12-02] MEDS ORDERED: NS 275ml ONE (14:42)
--- NOTE | 2016-12-02 16:11 | Infectious Diseases Prog Note ---
Assessment/Plan Problems: (1) HCAP (healthcare-associated pneumonia) Assessment & Plan: due to MRSA , S/P vancomycin and doxycycline for 14 days , improved (2) Septic shock Assessment & Plan: with proteus mirabilis ESBL + , suspect source is UTI , on zosyn , repeated blood culture to confirm clearance is negative , continue zosyn for 14 days . EOT 12/02/16 , will d/c antibiotics tomorrow (3) Respiratory distress Assessment & Plan: due to the above, S/P intubation, failed multiple attempts to wean him off , om mechanical ventilation, monitor ABG, titrate oxygen as needed (4) UTI (urinary tract infection) Assessment & Plan: with proteus mirabilis and Providencia stuartii , most likely the source of his sepsis, on zosyn for 14 days (5) Renal failure Assessment & Plan: improving, continue hydration, avoid nephrotoxic meds (6) Hydronephrosis of left kidney Assessment & Plan: with hematuria, most likely due to urethral tear , had urology eval , and no intervention needed for now (7) Ventilator dependent Assessment & Plan: S/P tracheostomy , ENT is following, continue local trach care Subjective ROS Limited/Unobtainable: Yes Allergies: Coded Allergies: No Known Allergies (Verified , 01/02/09) Subjective he failed multiple weaning trials, S/P tracheostomy today , intubated on mechanical ventilation, alert, off sedation, not in distress, off pressors, afebrile Objective Vital Signs Last 24 Hour Vital Signs Date Time Temp Pulse Resp B/P Pulse Ox O2 Delivery O2 Flow Rate FiO2 12/02/16 15:18 82 20 40 12/02/16 15:00 82 19 109/76 100 Mechanical Ventilator 40 12/02/16 14:28 108/83 12/02/16 14:00 79 18 108/83 100 Mechanical Ventilator 40 12/02/16 13:00 79 19 103/64 100 Mechanical Ventilator 40 12/02/16 12:32 84 21 40 12/02/16 12:00 76 12/02/16 12:00 98.5 72 18 112/73 100 Mechanical Ventilator 40 12/02/16 12:00 40 12/02/16 11:00 80 19 110/75 100 Mechanical Ventilator 40 12/02/16 10:58 80 18 40 12/02/16 10:00 83 17 126/57 99 Mechanical Ventilator 40 12/02/16 09:02 91 18 100 12/02/16 09:01 80 117/73 12/02/16 09:01 78 117/73 12/02/16 09:00 77 18 117/67 100 Mechanical Ventilator 40 12/02/16 08:33 79 18 40 12/02/16 08:00 97.9 80 18 117/73 100 Mechanical Ventilator 40 12/02/16 08:00 40 12/02/16 08:00 78 12/02/16 07:36 157/96 12/02/16 07:00 77 21 141/117 100 Mechanical Ventilator 40 12/02/16 06:58 82 18 40 12/02/16 06:00 80 21 127/106 100 Mechanical Ventilator 40 12/02/16 05:48 148/92 12/02/16 05:00 76 19 144/86 100 Mechanical Ventilator 40 12/02/16 04:52 85 19 40 12/02/16 04:00 78 12/02/16 04:00 40 12/02/16 04:00 97.9 79 20 144/86 100 Mechanical Ventilator 40 12/02/16 03:08 79 21 40 12/02/16 03:00 81 21 153/87 100 Mechanical Ventilator 40 12/02/16 02:00 80 21 166/98 100 Mechanical Ventilator 40 12/02/16 01:00 77 20 160/80 100 Mechanical Ventilator 40 12/02/16 00:38 79 18 40 12/02/16 00:00 97.9 74 19 162/89 100 Mechanical Ventilator 40 12/02/16 00:00 40 12/02/16 00:00 68 12/01/16 23:19 155/84 12/01/16 23:04 68 18 40 12/01/16 23:00 72 19 160/91 100 Mechanical Ventilator 40 12/01/16 22:00 68 18 140/79 100 Mechanical Ventilator 40 12/01/16 21:16 75 151/84 12/01/16 21:01 72 18 40 12/01/16 21:00 73 18 140/79 100 Mechanical Ventilator 40 12/01/16 21:00 40 12/01/16 20:00 97.6 74 18 151/84 100 Mechanical Ventilator 40 12/01/16 20:00 72 12/01/16 19:00 70 19 150/81 100 Mechanical Ventilator 40 12/01/16 18:58 75 24 40 12/01/16 18:00 76 20 106/84 100 Mechanical Ventilator 40 12/01/16 17:35 125/80 12/01/16 17:03 75 18 40 12/01/16 17:00 74 19 125/80 100 Mechanical Ventilator 40 Height (Feet): 6 Height (Inches): 1.00 Weight (Pounds): 171 General Appearance: WD/WN, no acute distress HEENT: normocephalic, atraumatic, anicteric, mucous membranes moist, supple, no JVD, status post trach Respiratory/Chest: chest wall non-tender, lungs clear, normal breath sounds, no respiratory distress, no accessory muscle use Cardiovascular: normal peripheral pulses, normal rate, regular rhythm, no gallop/murmur, no JVD Abdomen: normal bowel sounds, soft, non tender, no organomegaly, non distended , no mass, no scars Extremities: no cyanosis, no clubbing Skin: no rash, no lesions, ulcers Lymphatic: no neck adenopathy, no groin adenopathy Laboratory Tests Test 12/02/16 04:00 12/02/16 06:58 White Blood Count 11.8 K/UL (4.8-10.8) H Red Blood Count 4.52 M/UL (4.70-6.10) L Hemoglobin 11.2 G/DL (14.2-18.0) L Hematocrit 36.7 % (42.0-52.0) L Mean Corpuscular Volume 81 FL (80-99) Mean Corpuscular Hemoglobin 24.8 PG (27.0-31.0) L Mean Corpuscular Hemoglobin Concent 30.5 G/DL (32.0-36.0) L Red Cell Distribution Width 17.7 % (11.6-14.8) H Platelet Count 445 K/UL (150-450) Mean Platelet Volume 6.0 FL (6.5-10.1) L Neutrophils (%) (Auto) 58.3 % (45.0-75.0) Lymphocytes (%) (Auto) 30.6 % (20.0-45.0) Monocytes (%) (Auto) 6.3 % (1.0-10.0) Eosinophils (%) (Auto) 4.4 % (0.0-3.0) H Basophils (%) (Auto) 0.5 % (0.0-2.0) Prothrombin Time 11.4 SEC (9.30-11.50) Prothromb Time International Ratio 1.1 (0.9-1.1) Activated Partial Thromboplast Time 33 SEC (23-33) Sodium Level 141 mEQ/L (135-145) Potassium Level 3.8 mEQ/L (3.4-4.9) Chloride Level 100 mEQ/L (98-107) Carbon Dioxide Level 31 mEQ/L (20-30) H Anion Gap 10 (5-15) Blood Urea Nitrogen 30 mg/dL (7-23) H Creatinine 1.6 mg/dL (0.7-1.2) H Estimat Glomerular Filtration Rate mL/min (>60) Glucose Level 109 mg/dL (74-106) H Calcium Level 9.9 mg/dL (8.6-10.2) Arterial Blood pH 7.456 (7.350-7.450) Arterial Blood Partial Pressure CO2 40.1 mmHg (35.0-45.0) Arterial Blood Partial Pressure O2 110.4 mmHg (75.0-100.0) H Arterial Blood HCO3 27.6 mmol/L (22.0-26.0) H Arterial Blood Oxygen Saturation 98.2 % (92.0-98.0) H Arterial Blood Base Excess 3.5 Librado Test Positive Current Medications Medications (Trade) Dose Ordered Sig/Keira Route PRN Reason Start Time Stop Time Status Last Admin Dose Admin Acetaminophen (Tylenol) 650 mg Q4H PRN ORAL fever 11/14/16 18:00 12/14/16 17:59 11/17/16 21:35 Albuterol/ Ipratropium (DuoNeb 0.5-3(2.5)mg/3ml) 3 ml Q4H PRN HHN sob 11/30/16 08:30 12/05/16 08:29 Amlodipine Besylate (Norvasc) 10 mg DAILY GT 11/18/16 11:00 12/18/16 10:59 12/02/16 09:01 Chlorhexidine Gluconate (Michelle-Hex 2%) 1 applic QHS TOPIC 11/15/16 21:00 12/15/16 20:59 12/01/16 21:17 Heparin Sodium (Porcine) (Heparin 5000 units/ml) 5,000 units EVERY 12 HOURS SUBQ 11/15/16 21:00 12/15/16 20:59 12/02/16 09:02 Hydralazine HCl (Apresoline) 10 mg Q4H PRN IV SBP > 150 11/18/16 12:15 12/18/16 12:14 12/02/16 07:36 Hydralazine HCl (Apresoline) 50 mg Q8HR GT 12/02/16 06:00 01/01/17 05:59 12/02/16 14:28 Hydromorphone HCl (Dilaudid) 0.5 mg Q4H PRN IVP Severe Pain (Pain Scale 7-10) 12/01/16 09:30 12/08/16 09:29 Lansoprazole (Prevacid) 30 mg DAILY GT 11/19/16 09:00 12/19/16 08:59 12/02/16 09:01 Lorazepam (Ativan 2mg/ml 1ml) 2 mg Q4H PRN IV For Anxiety 11/30/16 17:15 12/07/16 23:59 12/01/16 12:46 Metoprolol Tartrate (Lopressor) 12.5 mg Q12HR GT 11/30/16 09:00 12/30/16 08:59 12/02/16 09:01 Ondansetron HCl (Zofran) 4 mg Q6H PRN IVP Nausea & Vomiting 11/14/16 20:00 12/14/16 19:59 Polyethylene Glycol (Miralax) 17 gm DAILYPRN PRN GT Constipation 11/17/16 10:41 12/15/16 13:59 11/21/16 03:06 Vitamin A/Vitamin D (A & D Oint) 1 applic EVERY 12 HOURS TOPIC 11/15/16 21:00 12/15/16 20:59 12/02/16 09:02 Julianna Trejo M.D. Dec 02, 2016 16:11
--- NOTE | 2016-12-02 16:34 | Diagnostic Imaging Report ---
Indication: Dyspnea Comparison: 12/01/16 A single view chest radiograph was obtained. Findings: There is mild left basilar atelectasis suspected. Heart is enlarged. PICC line and tracheostomy are noted. There is no pneumothorax. Tracheostomy is new. Impression: Tracheostomy placement. No pneumothorax. Mild left basal atelectasis
[2016-12-02] MEDS: Dyna-Hex 2% Top Sol 8oz TOPIC SCH (20:52)
[2016-12-03] VITALS (24 sets, daily range): BP systolic 103–152; BP diastolic 55–84
[2016-12-03 05:34] LABS: BASOPHILS % (AUTO) 0.4 % (0.0-2.0); EOSINOPHILS % (AUTO) 1.7 % (0.0-3.0); MEAN CORPUSCULAR HEMOGLOBIN 25.9 PG (27.0-31.0); MEAN CORPUSCULAR HGB CONC 31.7 G/DL (32.0-36.0); MEAN CORPUSCULAR VOLUME 82 FL (80-99); MEAN PLATELET VOLUME 6.4 FL (6.5-10.1); MONOCYTES % (AUTO) 8.6 % (1.0-10.0); NEUTROPHILS % (AUTO) 69.3 % (45.0-75.0); PLATELET COUNT 416 K/UL (150-450); RED BLOOD COUNT 3.97 M/UL (4.70-6.10); RED CELL DISTRIBUTION WIDTH 17.5 % (11.6-14.8); WHITE BLOOD COUNT 14.1 K/UL (4.8-10.8)
[2016-12-03] MEDS: HydrALAZINE 25mg tab GT SCH ×3 (05:57→22:19)
[2016-12-03 06:08] LABS: ALANINE AMINOTRANSFERASE 15 U/L (3-41); ALBUMIN/GLOBULIN RATIO 0.5 (1.0-2.7); ANION GAP 11 (5-15); ASPARTATE AMINO TRANSFERASE 20 U/L (5-40); CALCIUM 9.4 mg/dL (8.6-10.2); CARBON DIOXIDE 30 mEQ/L (20-30); CHLORIDE 101 mEQ/L (98-107); CREATININE 1.7 mg/dL (0.7-1.2); HEMOLYSIS 0; SODIUM 142 mEQ/L (135-145); TOTAL PROTEIN 7.8 g/dL (6.6-8.7)
[2016-12-03] MEDS: Metoprolol Tartrate 12.5mg TAB GT SCH ×2 (09:03→20:55)
[2016-12-03] MEDS: Vitamin A&D Oint 2oz Tube TOPIC SCH ×2 (09:03→20:57)
--- NOTE | 2016-12-03 09:15 | Pulmonolgy Critical Care Note ---
Critical Care - Asmt/Plan Problems: (1) Respiratory distress (2) Acute encephalopathy (3) HCAP (healthcare-associated pneumonia) (4) Sepsis (5) Anemia (6) Feeding by G-tube (7) ATN (acute tubular necrosis) Respiratory: monitor respiratory rate, adjust FIO2, CXR Cardiac: continue to monitor HR/BP Renal: check electrolytes Infectious Disease: check cultures, continue antibiotics Gastrointestinal: continue feedings/current rate Endocrine: check TSH, check HgA1C Hematologic: transfuse if hgb<8.5 Neurologic: PRN Ativan, PRN Morphine, keep patient comfortable Prophylaxis: Protonix Disposition: keep in ICU 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, 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 Critical Care - Objective Last 24 Hour Vital Signs Date Time Temp Pulse Resp B/P Pulse Ox O2 Delivery O2 Flow Rate FiO2 12/03/16 08:00 98.2 75 20 122/69 100 Mechanical Ventilator 40 12/03/16 08:00 40 12/03/16 07:24 76 20 40 12/03/16 07:00 76 21 132/74 100 Mechanical Ventilator 40 12/03/16 06:00 75 21 130/75 100 Mechanical Ventilator 40 12/03/16 05:57 139/75 12/03/16 05:00 75 21 134/73 100 Mechanical Ventilator 40 12/03/16 04:55 75 18 40 12/03/16 04:00 76 12/03/16 04:00 77 12/03/16 04:00 97.8 77 20 139/75 100 Mechanical Ventilator 40 12/03/16 04:00 40 12/03/16 04:00 40 12/03/16 03:00 81 23 128/76 100 Mechanical Ventilator 40 12/03/16 02:58 82 26 40 12/03/16 02:00 78 22 120/84 100 Mechanical Ventilator 40 12/03/16 01:01 77 24 40 12/03/16 01:00 78 23 127/70 100 Mechanical Ventilator 40 12/03/16 00:00 97.5 79 22 126/75 100 Mechanical Ventilator 40 12/03/16 00:00 79 12/03/16 00:00 40 12/02/16 23:05 76 24 40 12/02/16 23:00 78 21 127/70 100 Mechanical Ventilator 40 12/02/16 22:33 120/71 12/02/16 22:00 77 23 120/71 100 Mechanical Ventilator 40 12/02/16 21:05 84 26 40 12/02/16 21:00 78 23 129/83 100 Mechanical Ventilator 40 12/02/16 20:50 86 114/70 12/02/16 20:00 77 12/02/16 20:00 40 12/02/16 20:00 98.6 85 23 129/83 99 Mechanical Ventilator 40 12/02/16 19:00 78 21 129/83 100 Mechanical Ventilator 40 12/02/16 18:49 77 23 40 12/02/16 18:00 77 19 128/74 100 Mechanical Ventilator 40 12/02/16 17:00 78 20 128/78 100 Mechanical Ventilator 40 12/02/16 16:57 83 18 40 12/02/16 16:00 40 12/02/16 16:00 78 12/02/16 16:00 98.5 78 20 129/83 100 Mechanical Ventilator 40 12/02/16 15:18 82 20 40 12/02/16 15:00 82 19 109/76 100 Mechanical Ventilator 40 12/02/16 14:28 108/83 12/02/16 14:00 79 18 108/83 100 Mechanical Ventilator 40 12/02/16 13:00 79 19 103/64 100 Mechanical Ventilator 40 12/02/16 12:32 84 21 40 12/02/16 12:00 76 12/02/16 12:00 98.5 72 18 112/73 100 Mechanical Ventilator 40 12/02/16 12:00 40 12/02/16 11:00 80 19 110/75 100 Mechanical Ventilator 40 12/02/16 10:58 80 18 40 12/02/16 10:00 83 17 126/57 99 Mechanical Ventilator 40 Status: awake Condition: critical, grave HEENT: atraumatic Lungs: clear Heart: HR/BP stable, HR/BP unstable Abdomen: soft, non-tender, active bowel sounds Extremities: no C/C/E, edema Decubiti: location Critical Care - Subjective ROS Limited/Unobtainable: Yes Interval Events: tolerated the trach very well Condition: critical FI02: 40 Vent Support Breath Rate: 18 Vent Support Mode: AC Vent Tidal Volume: 500 Sputum Amount: Moderate PEEP: 5.0 PIP: 15 Tube Feeding Amount: 50 I&O: Intake and Output 12/02/16 12/03/16 19:00 07:00 Intake Total 300.0 ml 730 ml Output Total 465 ml 350 ml Balance -165.0 ml 380 ml Intake Free Water 180 ml IV Total 110.0 ml Tube Feeding 100 ml 550 ml Other 90 ml Output Urine Total 465 ml 350 ml # Bowel Movements 1 CXR: no new changes ET-Tube: 8.0 ET Position: 24 Labs: Laboratory Tests Test 12/03/16 04:00 White Blood Count 14.1 K/UL (4.8-10.8) H Red Blood Count 3.97 M/UL (4.70-6.10) L Hemoglobin 10.3 G/DL (14.2-18.0) L Hematocrit 32.5 % (42.0-52.0) L Mean Corpuscular Volume 82 FL (80-99) Mean Corpuscular Hemoglobin 25.9 PG (27.0-31.0) L Mean Corpuscular Hemoglobin Concent 31.7 G/DL (32.0-36.0) L Red Cell Distribution Width 17.5 % (11.6-14.8) H Platelet Count 416 K/UL (150-450) Mean Platelet Volume 6.4 FL (6.5-10.1) L Neutrophils (%) (Auto) 69.3 % (45.0-75.0) Lymphocytes (%) (Auto) 20.0 % (20.0-45.0) Monocytes (%) (Auto) 8.6 % (1.0-10.0) Eosinophils (%) (Auto) 1.7 % (0.0-3.0) Basophils (%) (Auto) 0.4 % (0.0-2.0) Sodium Level 142 mEQ/L (135-145) Potassium Level 4.0 mEQ/L (3.4-4.9) Chloride Level 101 mEQ/L (98-107) Carbon Dioxide Level 30 mEQ/L (20-30) Anion Gap 11 (5-15) Blood Urea Nitrogen 38 mg/dL (7-23) H Creatinine 1.7 mg/dL (0.7-1.2) H Estimat Glomerular Filtration Rate mL/min (>60) Glucose Level 113 mg/dL (74-106) H Calcium Level 9.4 mg/dL (8.6-10.2) Total Bilirubin 0.3 mg/dL (0.0-1.2) Aspartate Amino Transf (AST/SGOT) 20 U/L (5-40) Alanine Aminotransferase (ALT/SGPT) 15 U/L (3-41) Alkaline Phosphatase 79 U/L (40-129) Pro-B-Type Natriuretic Peptide 794 pg/mL (0-450) H Total Protein 7.8 g/dL (6.6-8.7) Albumin 2.8 g/dL (3.5-5.2) L Globulin 5.0 g/dL Albumin/Globulin Ratio 0.5 (1.0-2.7) L MARY CABELLO Dec 03, 2016 09:15
[2016-12-03] MEDS: Heparin 5000 units/ml inj SUBQ SCH ×2 (09:17→20:56)
--- NOTE | 2016-12-03 12:56 | Diagnostic Imaging Report ---
Indication: Dyspnea Comparison: 12/02/2016 A single view chest radiograph was obtained. Findings: Heart size is normal. The PICC line and tracheostomy, sternotomy again noted. There is prominence of the pulmonary interstitium noted. There is mild left basal atelectasis or infiltrate suspected. Impression: No significant guide changer the last day
--- NOTE | 2016-12-03 13:33 | General Progress Note ---
Assessment/Plan Problem List: (1) Sepsis ICD Codes: A41.9 - Sepsis, unspecified organism SNOMED: 92465531 (2) Septic shock ICD Codes: A41.9 - Sepsis, unspecified organism; R65.21 - Severe sepsis with septic shock SNOMED: 09447402 (3) Renal failure ICD Codes: N19 - Unspecified kidney failure SNOMED: 34849493 Qualifiers: Qualified Codes: N17.9 - Acute kidney failure, unspecified (4) Respiratory distress ICD Codes: R06.00 - Dyspnea, unspecified SNOMED: 347576393 (5) Pneumonia ICD Codes: J18.9 - Pneumonia, unspecified organism SNOMED: 752770275 (6) UTI (urinary tract infection) ICD Codes: N39.0 - Urinary tract infection, site not specified SNOMED: 16743700 Status: unchanged Assessment/Plan vent abx cbc bmp am, naima ltach eval Subjective Constitutional: Reports: weakness Allergies: Coded Allergies: No Known Allergies (Verified , 01/02/09) All Systems: reviewed and negative except above Subjective s/p trach in icu Objective Last 24 Hour Vital Signs Date Time Temp Pulse Resp B/P Pulse Ox O2 Delivery O2 Flow Rate FiO2 12/03/16 13:00 75 21 133/71 100 Mechanical Ventilator 40 12/03/16 12:49 71 22 40 12/03/16 12:00 40 12/03/16 12:00 98.9 75 20 128/78 100 Mechanical Ventilator 40 12/03/16 11:15 72 22 40 12/03/16 11:00 71 21 119/81 100 Mechanical Ventilator 40 12/03/16 10:00 84 21 103/55 100 Mechanical Ventilator 40 12/03/16 09:25 74 19 40 12/03/16 09:03 75 122/69 12/03/16 09:03 75 122/69 12/03/16 09:00 72 21 142/79 100 Mechanical Ventilator 40 12/03/16 08:00 77 12/03/16 08:00 98.2 75 20 122/69 100 Mechanical Ventilator 40 12/03/16 08:00 40 12/03/16 07:24 76 20 40 12/03/16 07:00 76 21 132/74 100 Mechanical Ventilator 40 12/03/16 06:00 75 21 130/75 100 Mechanical Ventilator 40 7/18/17 05:57 139/75 7/18/17 05:00 75 21 134/73 100 Mechanical Ventilator 40 718/17 04:55 75 18 40 7/18/17 04:00 76 7/18/17 04:00 77 7/18/17 04:00 97.8 77 20 139/75 100 Mechanical Ventilator 40 7/18/17 04:00 40 7/18/17 04:00 40 718/17 03:00 81 23 128/76 100 Mechanical Ventilator 40 718/17 02:58 82 26 40 7/18/17 02:00 78 22 120/84 100 Mechanical Ventilator 40 7/18/17 01:01 77 24 40 7/18/17 01:00 78 23 127/70 100 Mechanical Ventilator 40 718/17 00:00 97.5 79 22 126/75 100 Mechanical Ventilator 40 718/17 00:00 79 718/17 00:00 40 717/17 23:05 76 24 40 7/17 23:00 78 21 127/70 100 Mechanical Ventilator 40 7/17 22:33 120/71 717/17 22:00 77 23 120/71 100 Mechanical Ventilator 40 7/17 21:05 84 26 40 7/17/17 21:00 78 23 129/83 100 Mechanical Ventilator 40 717/17 20:50 86 114/70 717/17 20:00 77 7/17/17 20:00 40 7/17 20:00 98.6 85 23 129/83 99 Mechanical Ventilator 40 7/17 19:00 78 21 129/83 100 Mechanical Ventilator 40 717/17 18:49 77 23 40 7/17/17 18:00 77 19 128/74 100 Mechanical Ventilator 40 7/17/17 17:00 78 20 128/78 100 Mechanical Ventilator 40 7/17/17 16:57 83 18 40 7/17/17 16:00 40 7/17/17 16:00 78 7/17/17 16:00 98.5 78 20 129/83 100 Mechanical Ventilator 40 7/17/17 15:18 82 20 40 7/17/17 15:00 82 19 109/76 100 Mechanical Ventilator 40 7/17/17 14:28 108/83 7/17/17 14:00 79 18 108/83 100 Mechanical Ventilator 40 Intake and Output 12/02/16 12/03/16 19:00 07:00 Intake Total 300.0 ml 730 ml Output Total 465 ml 350 ml Balance -165.0 ml 380 ml Intake Free Water 180 ml IV Total 110.0 ml Tube Feeding 100 ml 550 ml Other 90 ml Output Urine Total 465 ml 350 ml # Bowel Movements 1 Laboratory Tests 12/03/16 04:00: White Blood Count 14.1H, Red Blood Count 3.97L, Hemoglobin 10.3L, Hematocrit 32.5L, Mean Corpuscular Volume 82, Mean Corpuscular Hemoglobin 25.9L, Mean Corpuscular Hemoglobin Concent 31.7L, Red Cell Distribution Width 17.5H, Platelet Count 416, Mean Platelet Volume 6.4L, Neutrophils (%) (Auto) 69.3, Lymphocytes (%) (Auto) 20.0, Monocytes (%) (Auto) 8.6, Eosinophils (%) (Auto) 1.7, Basophils (%) (Auto) 0.4, Sodium Level 142, Potassium Level 4.0, Chloride Level 101, Carbon Dioxide Level 30, Anion Gap 11, Blood Urea Nitrogen 38H, Creatinine 1.7H, Estimat Glomerular Filtration Rate , Glucose Level 113H, Calcium Level 9.4, Total Bilirubin 0.3, Aspartate Amino Transf (AST/SGOT) 20, Alanine Aminotransferase (ALT/SGPT) 15, Alkaline Phosphatase 79, Pro-B-Type Natriuretic Peptide 794H, Total Protein 7.8, Albumin 2.8L, Globulin 5.0, Albumin /Globulin Ratio 0.5L Height (Feet): 6 Height (Inches): 1.00 Weight (Pounds): 175 General Appearance: lethargic EENT: normal ENT inspection Neck: normal alignment Cardiovascular: normal peripheral pulses, normal rate, regular rhythm Respiratory/Chest: chest wall non-tender, lungs clear, normal breath sounds Abdomen: normal bowel sounds, non tender, soft Extremities: normal inspection Edema: no edema noted Arm (L), no edema noted Arm (R), no edema noted Leg (L), no edema noted Leg (R), no edema noted Pedal (L), no edema noted Pedal (R), no edema noted Generalized Neurologic: motor weakness Skin: normal pigmentation, warm/dry CASS YANES Dec 03, 2016 13:33
--- NOTE | 2016-12-03 15:25 | Infectious Diseases Prog Note ---
Assessment/Plan Problems: (1) HCAP (healthcare-associated pneumonia) Assessment & Plan: due to MRSA , S/P vancomycin and doxycycline for 14 days , improved (2) Septic shock Assessment & Plan: with proteus mirabilis ESBL + , suspect source is UTI , repeated blood culture to confirm clearance is negative , S/P zosyn for 14 days . EOT 12/02/16 (3) Respiratory distress Assessment & Plan: due to the above, S/P intubation, failed multiple attempts to wean him off , om mechanical ventilation, monitor ABG, titrate oxygen as needed (4) UTI (urinary tract infection) Assessment & Plan: with proteus mirabilis and Providencia stuartii , most likely the source of his sepsis, S/P zosyn for 14 days (5) Renal failure Assessment & Plan: improving, continue hydration, avoid nephrotoxic meds (6) Hydronephrosis of left kidney Assessment & Plan: with hematuria, most likely due to urethral tear , had urology eval , and no intervention needed for now (7) Ventilator dependent Assessment & Plan: S/P tracheostomy , ENT is following, continue local trach care Subjective ROS Limited/Unobtainable: Yes Allergies: Coded Allergies: No Known Allergies (Verified , 01/02/09) Subjective he failed multiple weaning trials, S/P tracheostomy today , intubated on mechanical ventilation, alert, off sedation, not in distress, off pressors, afebrile Objective Vital Signs Last 24 Hour Vital Signs Date Time Temp Pulse Resp B/P Pulse Ox O2 Delivery O2 Flow Rate FiO2 12/03/16 14:00 72 20 123/66 100 Mechanical Ventilator 40 12/03/16 13:53 133/71 12/03/16 13:00 75 21 133/71 100 Mechanical Ventilator 40 12/03/16 12:49 71 22 40 12/03/16 12:00 40 12/03/16 12:00 98.9 75 20 128/78 100 Mechanical Ventilator 40 12/03/16 12:00 72 12/03/16 11:15 72 22 40 12/03/16 11:00 71 21 119/81 100 Mechanical Ventilator 40 12/03/16 10:00 84 21 103/55 100 Mechanical Ventilator 40 12/03/16 09:25 74 19 40 12/03/16 09:03 75 122/69 7/18/17 09:03 75 122/69 7/18/17 09:00 72 21 142/79 100 Mechanical Ventilator 40 7/18/17 08:00 77 7/18/17 08:00 98.2 75 20 122/69 100 Mechanical Ventilator 40 7/18/17 08:00 40 7/18/17 07:24 76 20 40 7/18/17 07:00 76 21 132/74 100 Mechanical Ventilator 40 7/18/17 06:00 75 21 130/75 100 Mechanical Ventilator 40 7/18/17 05:57 139/75 7/18/17 05:00 75 21 134/73 100 Mechanical Ventilator 40 7/18/17 04:55 75 18 40 7/18/17 04:00 76 7/18/17 04:00 77 7/18/17 04:00 97.8 77 20 139/75 100 Mechanical Ventilator 40 7/18/17 04:00 40 7/18/17 04:00 40 7/18/17 03:00 81 23 128/76 100 Mechanical Ventilator 40 7/18/17 02:58 82 26 40 7/18/17 02:00 78 22 120/84 100 Mechanical Ventilator 40 7/18/17 01:01 77 24 40 7/18/17 01:00 78 23 127/70 100 Mechanical Ventilator 40 7/18/17 00:00 97.5 79 22 126/75 100 Mechanical Ventilator 40 7/18/17 00:00 79 7/18/17 00:00 40 7/17/17 23:05 76 24 40 7/17/17 23:00 78 21 127/70 100 Mechanical Ventilator 40 7/17/17 22:33 120/71 7/17/17 22:00 77 23 120/71 100 Mechanical Ventilator 40 7/17/17 21:05 84 26 40 7/17/17 21:00 78 23 129/83 100 Mechanical Ventilator 40 7/17/17 20:50 86 114/70 7/17/17 20:00 77 7/17/17 20:00 40 7/17/17 20:00 98.6 85 23 129/83 99 Mechanical Ventilator 40 7/17/17 19:00 78 21 129/83 100 Mechanical Ventilator 40 7/17/17 18:49 77 23 40 7/17/17 18:00 77 19 128/74 100 Mechanical Ventilator 40 7/17/17 17:00 78 20 128/78 100 Mechanical Ventilator 40 12/02/16 16:57 83 18 40 12/02/16 16:00 40 12/02/16 16:00 78 12/02/16 16:00 98.5 78 20 129/83 100 Mechanical Ventilator 40 Height (Feet): 6 Height (Inches): 1.00 Weight (Pounds): 175 General Appearance: WD/WN, no acute distress HEENT: normocephalic, atraumatic, anicteric, mucous membranes moist Respiratory/Chest: chest wall non-tender, no respiratory distress, no accessory muscle use, decreased breath sounds, crackles/rales Cardiovascular: normal peripheral pulses, normal rate, regular rhythm, no gallop/murmur, no JVD Abdomen: normal bowel sounds, soft, non tender, no organomegaly, non distended , no mass, no scars Extremities: no cyanosis, no clubbing Skin: no rash, no lesions Neurologic/Psychiatric: alert Musculoskeletal: normal muscle bulk Laboratory Tests Test 12/03/16 04:00 White Blood Count 14.1 K/UL (4.8-10.8) H Red Blood Count 3.97 M/UL (4.70-6.10) L Hemoglobin 10.3 G/DL (14.2-18.0) L Hematocrit 32.5 % (42.0-52.0) L Mean Corpuscular Volume 82 FL (80-99) Mean Corpuscular Hemoglobin 25.9 PG (27.0-31.0) L Mean Corpuscular Hemoglobin Concent 31.7 G/DL (32.0-36.0) L Red Cell Distribution Width 17.5 % (11.6-14.8) H Platelet Count 416 K/UL (150-450) Mean Platelet Volume 6.4 FL (6.5-10.1) L Neutrophils (%) (Auto) 69.3 % (45.0-75.0) Lymphocytes (%) (Auto) 20.0 % (20.0-45.0) Monocytes (%) (Auto) 8.6 % (1.0-10.0) Eosinophils (%) (Auto) 1.7 % (0.0-3.0) Basophils (%) (Auto) 0.4 % (0.0-2.0) Sodium Level 142 mEQ/L (135-145) Potassium Level 4.0 mEQ/L (3.4-4.9) Chloride Level 101 mEQ/L (98-107) Carbon Dioxide Level 30 mEQ/L (20-30) Anion Gap 11 (5-15) Blood Urea Nitrogen 38 mg/dL (7-23) H Creatinine 1.7 mg/dL (0.7-1.2) H Estimat Glomerular Filtration Rate mL/min (>60) Glucose Level 113 mg/dL (74-106) H Calcium Level 9.4 mg/dL (8.6-10.2) Total Bilirubin 0.3 mg/dL (0.0-1.2) Aspartate Amino Transf (AST/SGOT) 20 U/L (5-40) Alanine Aminotransferase (ALT/SGPT) 15 U/L (3-41) Alkaline Phosphatase 79 U/L (40-129) Pro-B-Type Natriuretic Peptide 794 pg/mL (0-450) H Total Protein 7.8 g/dL (6.6-8.7) Albumin 2.8 g/dL (3.5-5.2) L Globulin 5.0 g/dL Albumin/Globulin Ratio 0.5 (1.0-2.7) L Current Medications Medications (Trade) Dose Ordered Sig/Keira Route PRN Reason Start Time Stop Time Status Last Admin Dose Admin Acetaminophen (Tylenol) 650 mg Q4H PRN ORAL fever 11/14/16 18:00 12/14/16 17:59 11/17/16 21:35 Albuterol/ Ipratropium (DuoNeb 0.5-3(2.5)mg/3ml) 3 ml Q4H PRN HHN sob 11/30/16 08:30 12/05/16 08:29 Amlodipine Besylate (Norvasc) 10 mg DAILY GT 11/18/16 11:00 12/18/16 10:59 12/03/16 09:03 Chlorhexidine Gluconate (Michelle-Hex 2%) 1 applic QHS TOPIC 11/15/16 21:00 12/15/16 20:59 12/02/16 20:52 Heparin Sodium (Porcine) (Heparin 5000 units/ml) 5,000 units EVERY 12 HOURS SUBQ 11/15/16 21:00 12/15/16 20:59 12/03/16 09:17 Hydralazine HCl (Apresoline) 10 mg Q4H PRN IV SBP > 150 11/18/16 12:15 12/18/16 12:14 12/02/16 07:36 Hydralazine HCl (Apresoline) 50 mg Q8HR GT 12/02/16 06:00 01/01/17 05:59 12/03/16 13:53 Hydromorphone HCl (Dilaudid) 0.5 mg Q4H PRN IVP Severe Pain (Pain Scale 7-10) 12/01/16 09:30 12/08/16 09:29 Lansoprazole (Prevacid) 30 mg DAILY GT 11/19/16 09:00 12/19/16 08:59 12/03/16 09:03 Lorazepam (Ativan 2mg/ml 1ml) 2 mg Q4H PRN IV For Anxiety 11/30/16 17:15 12/07/16 23:59 12/01/16 12:46 Metoprolol Tartrate (Lopressor) 12.5 mg Q12HR GT 11/30/16 09:00 12/30/16 08:59 12/03/16 09:03 Ondansetron HCl (Zofran) 4 mg Q6H PRN IVP Nausea & Vomiting 11/14/16 20:00 12/14/16 19:59 Polyethylene Glycol (Miralax) 17 gm DAILYPRN PRN GT Constipation 11/17/16 10:41 12/15/16 13:59 11/21/16 03:06 Vitamin A/Vitamin D (A & D Oint) 1 applic EVERY 12 HOURS TOPIC 11/15/16 21:00 12/15/16 20:59 12/03/16 09:03 Julianna Trejo M.D. Dec 03, 2016 15:25
--- NOTE | 2016-12-03 16:51 | GI Progress Note ---
Assessment/Plan Problems: (1) Feeding by G-tube ICD Codes: Z93.1 - Gastrostomy status SNOMED: 497116249, 476184898 (2) G-tube site cellulitis ICD Codes: K94.22 - Gastrostomy infection; L03.319 - Cellulitis of trunk, unspecified SNOMED: 497828543, 433855738 (3) Anemia ICD Codes: D64.9 - Anemia, unspecified SNOMED: 502759711 (4) Sepsis ICD Codes: A41.9 - Sepsis, unspecified organism SNOMED: 59418340 Status: stable Status Narrative Discussed with Dr. Taveras. Assessment/Plan GT site care daily/prn GTFs per dietary, tolerating OB stool r/o GI bleed uncollected stable H&H, transfuse prn Prevacid GT abx fu labs Subjective Subjective limited Objective Last 24 Hour Vital Signs Date Time Temp Pulse Resp B/P Pulse Ox O2 Delivery O2 Flow Rate FiO2 12/03/16 15:00 75 20 136/71 100 Mechanical Ventilator 40 12/03/16 14:41 72 25 40 12/03/16 14:00 72 20 123/66 100 Mechanical Ventilator 40 12/03/16 13:53 133/71 12/03/16 13:00 75 21 133/71 100 Mechanical Ventilator 40 12/03/16 12:49 71 22 40 12/03/16 12:00 40 12/03/16 12:00 98.9 75 20 128/78 100 Mechanical Ventilator 40 12/03/16 12:00 72 12/03/16 11:15 72 22 40 12/03/16 11:00 71 21 119/81 100 Mechanical Ventilator 40 12/03/16 10:00 84 21 103/55 100 Mechanical Ventilator 40 12/03/16 09:25 74 19 40 12/03/16 09:03 75 122/69 12/03/16 09:03 75 122/69 12/03/16 09:00 72 21 142/79 100 Mechanical Ventilator 40 12/03/16 08:00 77 12/03/16 08:00 98.2 75 20 122/69 100 Mechanical Ventilator 40 12/03/16 08:00 40 12/03/16 07:24 76 20 40 12/03/16 07:00 76 21 132/74 100 Mechanical Ventilator 40 12/03/16 06:00 75 21 130/75 100 Mechanical Ventilator 40 12/03/16 05:57 139/75 12/03/16 05:00 75 21 134/73 100 Mechanical Ventilator 40 12/03/16 04:55 75 18 40 12/03/16 04:00 76 12/03/16 04:00 77 12/03/16 04:00 97.8 77 20 139/75 100 Mechanical Ventilator 40 12/03/16 04:00 40 12/03/16 04:00 40 12/03/16 03:00 81 23 128/76 100 Mechanical Ventilator 40 12/03/16 02:58 82 26 40 12/03/16 02:00 78 22 120/84 100 Mechanical Ventilator 40 12/03/16 01:01 77 24 40 12/03/16 01:00 78 23 127/70 100 Mechanical Ventilator 40 12/03/16 00:00 97.5 79 22 126/75 100 Mechanical Ventilator 40 12/03/16 00:00 79 12/03/16 00:00 40 12/02/16 23:05 76 24 40 12/02/16 23:00 78 21 127/70 100 Mechanical Ventilator 40 12/02/16 22:33 120/71 12/02/16 22:00 77 23 120/71 100 Mechanical Ventilator 40 12/02/16 21:05 84 26 40 12/02/16 21:00 78 23 129/83 100 Mechanical Ventilator 40 12/02/16 20:50 86 114/70 12/02/16 20:00 77 12/02/16 20:00 40 12/02/16 20:00 98.6 85 23 129/83 99 Mechanical Ventilator 40 12/02/16 19:00 78 21 129/83 100 Mechanical Ventilator 40 12/02/16 18:49 77 23 40 12/02/16 18:00 77 19 128/74 100 Mechanical Ventilator 40 12/02/16 17:00 78 20 128/78 100 Mechanical Ventilator 40 12/02/16 16:57 83 18 40 Intake and Output 12/02/16 12/03/16 19:00 07:00 Intake Total 300.0 ml 730 ml Output Total 465 ml 350 ml Balance -165.0 ml 380 ml Intake Free Water 180 ml IV Total 110.0 ml Tube Feeding 100 ml 550 ml Other 90 ml Output Urine Total 465 ml 350 ml # Bowel Movements 1 Laboratory Tests Test 12/03/16 04:00 White Blood Count 14.1 K/UL (4.8-10.8) H Red Blood Count 3.97 M/UL (4.70-6.10) L Hemoglobin 10.3 G/DL (14.2-18.0) L Hematocrit 32.5 % (42.0-52.0) L Mean Corpuscular Volume 82 FL (80-99) Mean Corpuscular Hemoglobin 25.9 PG (27.0-31.0) L Mean Corpuscular Hemoglobin Concent 31.7 G/DL (32.0-36.0) L Red Cell Distribution Width 17.5 % (11.6-14.8) H Platelet Count 416 K/UL (150-450) Mean Platelet Volume 6.4 FL (6.5-10.1) L Neutrophils (%) (Auto) 69.3 % (45.0-75.0) Lymphocytes (%) (Auto) 20.0 % (20.0-45.0) Monocytes (%) (Auto) 8.6 % (1.0-10.0) Eosinophils (%) (Auto) 1.7 % (0.0-3.0) Basophils (%) (Auto) 0.4 % (0.0-2.0) Sodium Level 142 mEQ/L (135-145) Potassium Level 4.0 mEQ/L (3.4-4.9) Chloride Level 101 mEQ/L (98-107) Carbon Dioxide Level 30 mEQ/L (20-30) Anion Gap 11 (5-15) Blood Urea Nitrogen 38 mg/dL (7-23) H Creatinine 1.7 mg/dL (0.7-1.2) H Estimat Glomerular Filtration Rate mL/min (>60) Glucose Level 113 mg/dL (74-106) H Calcium Level 9.4 mg/dL (8.6-10.2) Total Bilirubin 0.3 mg/dL (0.0-1.2) Aspartate Amino Transf (AST/SGOT) 20 U/L (5-40) Alanine Aminotransferase (ALT/SGPT) 15 U/L (3-41) Alkaline Phosphatase 79 U/L (40-129) Pro-B-Type Natriuretic Peptide 794 pg/mL (0-450) H Total Protein 7.8 g/dL (6.6-8.7) Albumin 2.8 g/dL (3.5-5.2) L Globulin 5.0 g/dL Albumin/Globulin Ratio 0.5 (1.0-2.7) L Height (Feet): 6 Height (Inches): 1.00 Weight (Pounds): 175 General Appearance: no apparent distress Cardiovascular: normal rate Respiratory/Chest: other - mech vent Abdominal Exam: GT site - c/d/i Extremities: normal range of motion, non-tender Delfina Francois N.Gabbi Dec 03, 2016 16:51
--- NOTE | 2016-12-03 20:33 | General Progress Note ---
Assessment/Plan Assessment/Plan (1) Respiratory distress (2) S/p tracheostomy on Ventilator (3) Septic Shock (4) Sacral decubitus ulcer Pt will be continued on Dilaudid. D/w Dr. Rodríguez and he concurred. Subjective Date patient seen: Dec 03, 2016 Time patient seen: 07:00 - pm ROS Limited/Unobtainable: Yes Allergies: Coded Allergies: No Known Allergies (Verified , 01/02/09) Subjective The patient is in ICU in bed no signs of pain or distress. S/p Tracheostomy on vent. Objective Last 24 Hour Vital Signs Date Time Temp Pulse Resp B/P Pulse Ox O2 Delivery O2 Flow Rate FiO2 12/03/16 19:08 77 23 40 12/03/16 19:00 74 20 133/71 100 Mechanical Ventilator 40 12/03/16 18:00 74 20 137/69 100 Mechanical Ventilator 40 12/03/16 17:00 78 20 123/73 100 Mechanical Ventilator 40 12/03/16 16:49 82 21 40 12/03/16 16:00 73 12/03/16 16:00 40 12/03/16 16:00 98.8 75 20 128/68 100 Mechanical Ventilator 40 12/03/16 15:00 75 20 136/71 100 Mechanical Ventilator 40 12/03/16 14:41 72 25 40 12/03/16 14:00 72 20 123/66 100 Mechanical Ventilator 40 12/03/16 13:53 133/71 12/03/16 13:00 75 21 133/71 100 Mechanical Ventilator 40 12/03/16 12:49 71 22 40 12/03/16 12:00 98.9 75 20 128/78 100 Mechanical Ventilator 40 12/03/16 12:00 40 12/03/16 12:00 72 12/03/16 11:15 72 22 40 12/03/16 11:00 71 21 119/81 100 Mechanical Ventilator 40 12/03/16 11:00 71 21 119/81 100 Mechanical Ventilator 40 12/03/16 10:00 84 21 103/55 100 Mechanical Ventilator 40 12/03/16 09:25 74 19 40 12/03/16 09:03 75 122/69 12/03/16 09:03 75 122/69 12/03/16 09:00 72 21 142/79 100 Mechanical Ventilator 40 12/03/16 08:00 77 12/03/16 08:00 98.2 75 20 122/69 100 Mechanical Ventilator 40 12/03/16 08:00 40 12/03/16 07:24 76 20 40 12/03/16 07:00 76 21 132/74 100 Mechanical Ventilator 40 12/03/16 06:00 75 21 130/75 100 Mechanical Ventilator 40 12/03/16 05:57 139/75 12/03/16 05:00 75 21 134/73 100 Mechanical Ventilator 40 12/03/16 04:55 75 18 40 12/03/16 04:00 76 12/03/16 04:00 77 12/03/16 04:00 97.8 77 20 139/75 100 Mechanical Ventilator 40 12/03/16 04:00 40 12/03/16 04:00 40 12/03/16 03:00 81 23 128/76 100 Mechanical Ventilator 40 12/03/16 02:58 82 26 40 12/03/16 02:00 78 22 120/84 100 Mechanical Ventilator 40 12/03/16 01:01 77 24 40 12/03/16 01:00 78 23 127/70 100 Mechanical Ventilator 40 12/03/16 00:00 97.5 79 22 126/75 100 Mechanical Ventilator 40 12/03/16 00:00 79 12/03/16 00:00 40 12/02/16 23:05 76 24 40 12/02/16 23:00 78 21 127/70 100 Mechanical Ventilator 40 12/02/16 22:33 120/71 12/02/16 22:00 77 23 120/71 100 Mechanical Ventilator 40 12/02/16 21:05 84 26 40 12/02/16 21:00 78 23 129/83 100 Mechanical Ventilator 40 12/02/16 20:50 86 114/70 Intake and Output 12/02/16 12/03/16 19:00 07:00 Intake Total 300.0 ml 730 ml Output Total 465 ml 350 ml Balance -165.0 ml 380 ml Intake Free Water 180 ml IV Total 110.0 ml Tube Feeding 100 ml 550 ml Other 90 ml Output Urine Total 465 ml 350 ml # Bowel Movements 1 Laboratory Tests 12/03/16 04:00: White Blood Count 14.1H, Red Blood Count 3.97L, Hemoglobin 10.3L, Hematocrit 32.5L, Mean Corpuscular Volume 82, Mean Corpuscular Hemoglobin 25.9L, Mean Corpuscular Hemoglobin Concent 31.7L, Red Cell Distribution Width 17.5H, Platelet Count 416, Mean Platelet Volume 6.4L, Neutrophils (%) (Auto) 69.3, Lymphocytes (%) (Auto) 20.0, Monocytes (%) (Auto) 8.6, Eosinophils (%) (Auto) 1.7, Basophils (%) (Auto) 0.4, Sodium Level 142, Potassium Level 4.0, Chloride Level 101, Carbon Dioxide Level 30, Anion Gap 11, Blood Urea Nitrogen 38H, Creatinine 1.7H, Estimat Glomerular Filtration Rate , Glucose Level 113H, Calcium Level 9.4, Total Bilirubin 0.3, Aspartate Amino Transf (AST/SGOT) 20, Alanine Aminotransferase (ALT/SGPT) 15, Alkaline Phosphatase 79, Pro-B-Type Natriuretic Peptide 794H, Total Protein 7.8, Albumin 2.8L, Globulin 5.0, Albumin /Globulin Ratio 0.5L Height (Feet): 6 Height (Inches): 1.00 Weight (Pounds): 175 Objective General Appearance: other - Intubated and unresponsive EENT: other - ETT in place Cardiovascular: normal rate, regular rhythm Respiratory/Chest: chest wall non-tender, rhonchi - bilaterally, other - On vent Abdomen: non tender, soft Edema: no edema noted Arm (L), no edema noted Arm (R), no edema noted Leg (L), no edema noted Leg (R), no edema noted Pedal (L), no edema noted Pedal (R) Neurologic: unresponsive AMMY LEMOS Dec 03, 2016 20:33
[2016-12-03] MEDS: Dyna-Hex 2% Top Sol 8oz TOPIC SCH (20:54)
[2016-12-03] MEDS: LORazepam Inj 2mg/ml 1ml IV PRN (20:55)
[2016-12-04] VITALS (24 sets, daily range): BP systolic 104–159; BP diastolic 69–106
--- NOTE | 2016-12-04 01:45 | Progress Note ---
DATE: 12/02/2016 CARDIOLOGY PROGRESS NOTE SUBJECTIVE: The patient is status post tracheostomy. He remains in intensive care unit on ventilator support. Weaning is not initiated. OBJECTIVE: VITAL SIGNS: Blood pressure 103/64, pulse 79, and respiratory rate 19. NECK: Trach site with thin secretions. No bleeding. LUNGS: With coarse breath sounds and few rhonchi. CARDIAC: Regular rhythm and rate. Normal S1 and S2 with occasional ectopic beats. ABDOMEN: Soft and nontender. EXTREMITIES: With trace dependent edema. LABORATORY DATA: White count 11.8 and hemoglobin 11.2. Potassium 3.8, BUN 30, and creatinine 1.6. IMPRESSION: 1. Respiratory failure status post tracheostomy. 2. Ischemic heart disease status post acute myocardial infarction. 3. Acute on chronic diastolic congestive heart failure. 4. Acute on chronic renal failure. PLAN: 1. Respiratory hygiene. 2. DVT and stress ulcer prophylaxis. 3. Trach care. 4. Weaning efforts to follow. 5. Monitor volume status. 6. Cardiorenal parameters and trend natriuretic peptide assay to help diuretic dosing in the future. Riki Francois M.D. DR: BRIONNA JOB#: [id number] CC:
--- NOTE | 2016-12-04 02:15 | Progress Note ---
DATE: 12/03/2016 CARDIOLOGY PROGRESS NOTE SUBJECTIVE: The patient is status post trach. No bleeding is noted. Secretions are decreased. OBJECTIVE: VITAL SIGNS: Blood pressure 142/69, pulse 73, and respirations 20. LUNGS: Coarse breath sounds. Scattered rhonchi. HEART: Regular rhythm and rate. Normal S1 and S2. ABDOMEN: Soft. No edema. LABORATORY DATA: Sodium 142, potassium 4, bicarbonate 30, BUN 38, creatinine 1.7, and glucose 113. White count is 14 and hemoglobin 10.3. IMPRESSION: 1. Respiratory failure, status post tracheostomy. 2. Sepsis with recovered shock. 3. Healthcare-acquired pneumonia. 4. Acute on chronic diastolic congestive heart failure. 5. Hypertensive heart disease. PLAN: 1. Antimicrobials. 2. Ventilator support with wean. 3. Monitor volume status. 4. Periodic diuresis to be addressed based on clinical parameters. 5. Followup electrolytes. 6. Monitor ABGs. 7. Adjust antibiotics accordingly. Riki Francois M.D. DR: CHRISTIAN JOB#: [id number] CC:
[2016-12-04 05:45] LABS: BASOPHILS % (AUTO) 0.4 % (0.0-2.0); EOSINOPHILS % (AUTO) 3.2 % (0.0-3.0); LYMPHOCYTES % (AUTO) 18.8 % (20.0-45.0); MEAN CORPUSCULAR HEMOGLOBIN 25.3 PG (27.0-31.0); MEAN CORPUSCULAR HGB CONC 31.1 G/DL (32.0-36.0); MEAN CORPUSCULAR VOLUME 81 FL (80-99); MEAN PLATELET VOLUME 6.1 FL (6.5-10.1); MONOCYTES % (AUTO) 8.2 % (1.0-10.0); NEUTROPHILS % (AUTO) 69.4 % (45.0-75.0); PLATELET COUNT 371 K/UL (150-450); RED CELL DISTRIBUTION WIDTH 17.7 % (11.6-14.8)
[2016-12-04] MEDS: HydrALAZINE 25mg tab GT SCH ×3 (05:48→23:35)
[2016-12-04 06:56] LABS: ALANINE AMINOTRANSFERASE 15 U/L (3-41); ALBUMIN/GLOBULIN RATIO 0.5 (1.0-2.7); ANION GAP 9 (5-15); ASPARTATE AMINO TRANSFERASE 18 U/L (5-40); CALCIUM 9.5 mg/dL (8.6-10.2); CARBON DIOXIDE 29 mEQ/L (20-30); CHLORIDE 103 mEQ/L (98-107); CREATININE 1.5 mg/dL (0.7-1.2); HEMOLYSIS 0; POTASSIUM 3.8 mEQ/L (3.4-4.9); SODIUM 141 mEQ/L (135-145); TOTAL PROTEIN 7.7 g/dL (6.6-8.7)
[2016-12-04] MEDS: Vitamin A&D Oint 2oz Tube TOPIC SCH ×2 (08:25→21:07)
[2016-12-04] MEDS: Metoprolol Tartrate 12.5mg TAB GT SCH ×2 (08:25→21:07)
[2016-12-04] MEDS: Heparin 5000 units/ml inj SUBQ SCH ×2 (08:30→21:08)
--- NOTE | 2016-12-04 08:35 | General Progress Note ---
Assessment/Plan Assessment/Plan (1) Respiratory distress (2) S/p tracheostomy on Ventilator (3) Septic Shock (4) Sacral decubitus ulcer Pt will be continued on Dilaudid. D/w Dr. Rodríguez and he concurred. Subjective Date patient seen: Dec 04, 2016 Time patient seen: 07:00 - am ROS Limited/Unobtainable: Yes Allergies: Coded Allergies: No Known Allergies (Verified , 01/02/09) Subjective The patient is in ICU with Tracheostomy on vent. No pain at this time. Objective Last 24 Hour Vital Signs Date Time Temp Pulse Resp B/P Pulse Ox O2 Delivery O2 Flow Rate FiO2 12/04/16 08:25 74 147/77 12/04/16 08:25 74 147/77 12/04/16 08:00 98.5 69 20 147/77 100 Mechanical Ventilator 40 12/04/16 08:00 40 12/04/16 07:13 78 22 40 12/04/16 07:00 76 22 131/81 100 Mechanical Ventilator 40 12/04/16 06:00 74 22 153/85 100 Mechanical Ventilator 40 12/04/16 05:48 104/79 12/04/16 05:00 78 22 104/79 100 Mechanical Ventilator 40 12/04/16 04:48 73 18 40 12/04/16 04:00 98.0 76 22 143/73 100 Mechanical Ventilator 40 12/04/16 04:00 71 12/04/16 04:00 40 12/04/16 03:30 78 23 40 12/04/16 03:00 75 22 123/106 100 Mechanical Ventilator 40 12/04/16 02:00 74 20 158/73 100 Mechanical Ventilator 40 12/04/16 01:30 76 22 40 12/04/16 01:00 75 22 158/74 100 Mechanical Ventilator 40 12/04/16 00:00 70 12/04/16 00:00 98.2 72 20 159/74 100 Mechanical Ventilator 40 12/04/16 00:00 40 12/03/16 23:27 71 18 40 12/03/16 23:00 71 20 152/71 100 Mechanical Ventilator 40 12/03/16 22:19 142/69 12/03/16 22:00 73 20 142/69 100 Mechanical Ventilator 40 12/03/16 21:09 71 20 40 12/03/16 21:00 70 20 144/70 100 Mechanical Ventilator 40 17 20:55 75 134/83 1817 20:00 77 12/03/16 20:00 98.6 77 24 134/83 100 Mechanical Ventilator 40 17 20:00 40 1817 19:08 77 23 40 12/03/16 19:00 74 20 133/71 100 Mechanical Ventilator 40 12/03/16 18:00 74 20 137/69 100 Mechanical Ventilator 40 12/03/16 17:00 78 20 123/73 100 Mechanical Ventilator 40 17 16:49 82 21 40 12/03/16 16:00 73 17 16:00 40 12/03/16 16:00 98.8 75 20 128/68 100 Mechanical Ventilator 40 12/03/16 15:00 75 20 136/71 100 Mechanical Ventilator 40 12/03/16 14:41 72 25 40 12/03/16 14:00 72 20 123/66 100 Mechanical Ventilator 40 12/03/16 13:53 133/71 12/03/16 13:00 75 21 133/71 100 Mechanical Ventilator 40 12/03/16 12:49 71 22 40 12/03/16 12:00 98.9 75 20 128/78 100 Mechanical Ventilator 40 12/03/16 12:00 40 12/03/16 12:00 72 12/03/16 11:15 72 22 40 12/03/16 11:00 71 21 119/81 100 Mechanical Ventilator 40 12/03/16 11:00 71 21 119/81 100 Mechanical Ventilator 40 12/03/16 10:00 84 21 103/55 100 Mechanical Ventilator 40 12/03/16 09:25 74 19 40 12/03/16 09:03 75 122/69 12/03/16 09:03 75 122/69 12/03/16 09:00 72 21 142/79 100 Mechanical Ventilator 40 Intake and Output 12/03/16 12/04/16 19:00 07:00 Intake Total 860 ml 900 ml Output Total 401 ml 572 ml Balance 459 ml 328 ml Intake Free Water 260 ml 300 ml Tube Feeding 600 ml 600 ml Output Urine Total 400 ml 570 ml Stool Total 1 ml 2 ml # Bowel Movements 1 6 Laboratory Tests 12/04/16 04:00: White Blood Count 13.0H, Red Blood Count 4.00L, Hemoglobin 10.1L, Hematocrit 32.6L, Mean Corpuscular Volume 81, Mean Corpuscular Hemoglobin 25.3L, Mean Corpuscular Hemoglobin Concent 31.1L, Red Cell Distribution Width 17.7H, Platelet Count 371, Mean Platelet Volume 6.1L, Neutrophils (%) (Auto) 69.4, Lymphocytes (%) (Auto) 18.8L, Monocytes (%) (Auto) 8.2, Eosinophils (%) (Auto) 3.2H, Basophils (%) (Auto) 0.4, Sodium Level 141, Potassium Level 3.8, Chloride Level 103, Carbon Dioxide Level 29, Anion Gap 9, Blood Urea Nitrogen 36H, Creatinine 1.5H, Estimat Glomerular Filtration Rate , Glucose Level 143H, Calcium Level 9.5, Total Bilirubin 0.2, Aspartate Amino Transf (AST/SGOT) 18, Alanine Aminotransferase (ALT/SGPT) 15, Alkaline Phosphatase 83, Pro-B-Type Natriuretic Peptide 879H, Total Protein 7.7, Albumin 2.8L, Globulin 4.9, Albumin /Globulin Ratio 0.5L Height (Feet): 6 Height (Inches): 1.00 Weight (Pounds): 178 Objective General Appearance: other - trached Cardiovascular: normal rate, regular rhythm Respiratory/Chest: chest wall non-tender, rhonchi - bilaterally, other - On vent Abdomen: non tender, soft Edema: no edema noted Arm (L), no edema noted Arm (R), no edema noted Leg (L), no edema noted Leg (R), no edema noted Pedal (L), no edema noted Pedal (R) Neurologic: unresponsive AMMY LEMOS Dec 04, 2016 08:35
--- NOTE | 2016-12-04 10:36 | Pulmonolgy Critical Care Note ---
Critical Care - Asmt/Plan Problems: (1) Respiratory distress (2) Acute encephalopathy (3) HCAP (healthcare-associated pneumonia) (4) Sepsis (5) Anemia (6) Feeding by G-tube (7) ATN (acute tubular necrosis) Respiratory: monitor respiratory rate, adjust FIO2, CXR Cardiac: continue pressors, continue to monitor HR/BP Renal: F/U I&O, keep IV fluid, increase IV fluid, check electrolytes Infectious Disease: check cultures, continue antibiotics Gastrointestinal: continue feedings/current rate Endocrine: monitor blood sugar, continue sliding scale insulin Hematologic: monitor H/H, transfuse if hgb<8.5 Neurologic: PRN Ativan, PRN Morphine, keep patient comfortable Affect: PRN ativan Prophylaxis: Protonix Notes Reviewed: assessment specialist, cardio, renal Discussed with: nurses, consultants, case brieferregional training manager - Objective Last 24 Hour Vital Signs Date Time Temp Pulse Resp B/P Pulse Ox O2 Delivery O2 Flow Rate FiO2 12/04/16 10:00 72 20 131/69 100 Mechanical Ventilator 40 12/04/16 09:00 70 19 136/73 100 Mechanical Ventilator 40 12/04/16 08:53 74 18 40 12/04/16 08:25 74 147/77 12/04/16 08:25 74 147/77 12/04/16 08:00 98.5 69 20 147/77 100 Mechanical Ventilator 40 12/04/16 08:00 40 12/04/16 07:13 78 22 40 12/04/16 07:00 76 22 131/81 100 Mechanical Ventilator 40 12/04/16 06:00 74 22 153/85 100 Mechanical Ventilator 40 12/04/16 05:48 104/79 12/04/16 05:00 78 22 104/79 100 Mechanical Ventilator 40 12/04/16 04:48 73 18 40 12/04/16 04:00 98.0 76 22 143/73 100 Mechanical Ventilator 40 12/04/16 04:00 71 12/04/16 04:00 40 12/04/16 03:30 78 23 40 12/04/16 03:00 75 22 123/106 100 Mechanical Ventilator 40 12/04/16 02:00 74 20 158/73 100 Mechanical Ventilator 40 12/04/16 01:30 76 22 40 12/04/16 01:00 75 22 158/74 100 Mechanical Ventilator 40 12/04/16 00:00 70 12/04/16 00:00 98.2 72 20 159/74 100 Mechanical Ventilator 40 12/04/16 00:00 40 18/17 23:27 71 18 40 17 23:00 71 20 152/71 100 Mechanical Ventilator 40 12/03/16 22:19 142/69 71817 22:00 73 20 142/69 100 Mechanical Ventilator 40 12/03/16 21:09 71 20 40 7 21:00 70 20 144/70 100 Mechanical Ventilator 40 12/03/16 20:55 75 134/83 18 20:00 77 18/ 20:00 98.6 77 24 134/83 100 Mechanical Ventilator 40 12/03/16 20:00 40 12/03/16 19:08 77 23 40 12/03/16 19:00 74 20 133/71 100 Mechanical Ventilator 40 12/03/ 18:00 74 20 137/69 100 Mechanical Ventilator 40 12/03/16 17:00 78 20 123/73 100 Mechanical Ventilator 40 17 16:49 82 21 40 17 16:00 73 17 16:00 40 18/17 16:00 98.8 75 20 128/68 100 Mechanical Ventilator 40 12/03/16 15:00 75 20 136/71 100 Mechanical Ventilator 40 17 14:41 72 25 40 1817 14:00 72 20 123/66 100 Mechanical Ventilator 40 17 13:53 133/71 1817 13:00 75 21 133/71 100 Mechanical Ventilator 40 12/03/16 12:49 71 22 40 17 12:00 98.9 75 20 128/78 100 Mechanical Ventilator 40 1817 12:00 40 18/17 12:00 72 1817 11:15 72 22 40 718/17 11:00 71 21 119/81 100 Mechanical Ventilator 40 1817 11:00 71 21 119/81 100 Mechanical Ventilator 40 Status: awake Condition: critical, improving HEENT: atraumatic, normocephalic Neck: full ROM Lungs: clear Heart: HR/BP stable, HR/BP unstable Abdomen: soft, active bowel sounds, feeding tube Extremities: no C/C/E, edema Critical Care - Subjective ROS Limited/Unobtainable: Yes Intubation Day: s/p trach day 2 Condition: critical, improving FI02: 40 Vent Support Breath Rate: 18 Vent Support Mode: AC Vent Tidal Volume: 500 Sputum Amount: Small PEEP: 5.0 PIP: 17 Tube Feeding Amount: 50 I&O: Intake and Output 12/03/16 12/04/16 19:00 07:00 Intake Total 860 ml 900 ml Output Total 401 ml 572 ml Balance 459 ml 328 ml Intake Free Water 260 ml 300 ml Tube Feeding 600 ml 600 ml Output Urine Total 400 ml 570 ml Stool Total 1 ml 2 ml # Bowel Movements 1 6 CXR: no change ET-Tube: 8.0 ET Position: 24 Labs: Laboratory Tests Test 12/04/16 04:00 White Blood Count 13.0 K/UL (4.8-10.8) H Red Blood Count 4.00 M/UL (4.70-6.10) L Hemoglobin 10.1 G/DL (14.2-18.0) L Hematocrit 32.6 % (42.0-52.0) L Mean Corpuscular Volume 81 FL (80-99) Mean Corpuscular Hemoglobin 25.3 PG (27.0-31.0) L Mean Corpuscular Hemoglobin Concent 31.1 G/DL (32.0-36.0) L Red Cell Distribution Width 17.7 % (11.6-14.8) H Platelet Count 371 K/UL (150-450) Mean Platelet Volume 6.1 FL (6.5-10.1) L Neutrophils (%) (Auto) 69.4 % (45.0-75.0) Lymphocytes (%) (Auto) 18.8 % (20.0-45.0) L Monocytes (%) (Auto) 8.2 % (1.0-10.0) Eosinophils (%) (Auto) 3.2 % (0.0-3.0) H Basophils (%) (Auto) 0.4 % (0.0-2.0) Sodium Level 141 mEQ/L (135-145) Potassium Level 3.8 mEQ/L (3.4-4.9) Chloride Level 103 mEQ/L (98-107) Carbon Dioxide Level 29 mEQ/L (20-30) Anion Gap 9 (5-15) Blood Urea Nitrogen 36 mg/dL (7-23) H Creatinine 1.5 mg/dL (0.7-1.2) H Estimat Glomerular Filtration Rate mL/min (>60) Glucose Level 143 mg/dL (74-106) H Calcium Level 9.5 mg/dL (8.6-10.2) Total Bilirubin 0.2 mg/dL (0.0-1.2) Aspartate Amino Transf (AST/SGOT) 18 U/L (5-40) Alanine Aminotransferase (ALT/SGPT) 15 U/L (3-41) Alkaline Phosphatase 83 U/L (40-129) Pro-B-Type Natriuretic Peptide 879 pg/mL (0-450) H Total Protein 7.7 g/dL (6.6-8.7) Albumin 2.8 g/dL (3.5-5.2) L Globulin 4.9 g/dL Albumin/Globulin Ratio 0.5 (1.0-2.7) L MARY CABELLO Dec 04, 2016 10:36
[2016-12-04] MEDS ORDERED: LOPRESSOR25 M1 GT (10:39)
[2016-12-04] MEDS ORDERED: HYDRALAZINE HCL25 M1 GT (10:39)
--- NOTE | 2016-12-04 11:56 | GI Progress Note ---
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 Taveras. Assessment/Plan s/p trach GT site care daily/prn GTFs per dietary, tolerating stable H&H, transfuse prn Prevacid GT abx fu labs Subjective Subjective limited Objective Last 24 Hour Vital Signs Date Time Temp Pulse Resp B/P Pulse Ox O2 Delivery O2 Flow Rate FiO2 12/04/16 11:00 70 18 133/72 100 Mechanical Ventilator 40 12/04/16 10:47 76 22 40 12/04/16 10:00 72 20 131/69 100 Mechanical Ventilator 40 12/04/16 09:00 70 19 136/73 100 Mechanical Ventilator 40 12/04/16 08:53 74 18 40 12/04/16 08:25 74 147/77 12/04/16 08:25 74 147/77 12/04/16 08:00 84 12/04/16 08:00 98.5 69 20 147/77 100 Mechanical Ventilator 40 12/04/16 08:00 40 12/04/16 07:13 78 22 40 12/04/16 07:00 76 22 131/81 100 Mechanical Ventilator 40 12/04/16 06:00 74 22 153/85 100 Mechanical Ventilator 40 12/04/16 05:48 104/79 12/04/16 05:00 78 22 104/79 100 Mechanical Ventilator 40 12/04/16 04:48 73 18 40 12/04/16 04:00 98.0 76 22 143/73 100 Mechanical Ventilator 40 12/04/16 04:00 71 12/04/16 04:00 40 12/04/16 03:30 78 23 40 12/04/16 03:00 75 22 123/106 100 Mechanical Ventilator 40 12/04/16 02:00 74 20 158/73 100 Mechanical Ventilator 40 717 01:30 76 22 40 7/17 01:00 75 22 158/74 100 Mechanical Ventilator 40 7/17 00:00 70 12/04/16 00:00 98.2 72 20 159/74 100 Mechanical Ventilator 40 7/17 00:00 40 718/17 23:27 71 18 40 718/17 23:00 71 20 152/71 100 Mechanical Ventilator 40 1817 22:19 142/69 718/17 22:00 73 20 142/69 100 Mechanical Ventilator 40 718/17 21:09 71 20 40 718/17 21:00 70 20 144/70 100 Mechanical Ventilator 40 12/03/17 20:55 75 134/83 18/17 20:00 77 1817 20:00 98.6 77 24 134/83 100 Mechanical Ventilator 40 718/17 20:00 40 18/17 19:08 77 23 40 17 19:00 74 20 133/71 100 Mechanical Ventilator 40 7/17 18:00 74 20 137/69 100 Mechanical Ventilator 40 718/17 17:00 78 20 123/73 100 Mechanical Ventilator 40 18/17 16:49 82 21 40 718/17 16:00 73 18/17 16:00 40 18/17 16:00 98.8 75 20 128/68 100 Mechanical Ventilator 40 718/17 15:00 75 20 136/71 100 Mechanical Ventilator 40 17 14:41 72 25 40 18/17 14:00 72 20 123/66 100 Mechanical Ventilator 40 18/17 13:53 133/71 18/17 13:00 75 21 133/71 100 Mechanical Ventilator 40 718/17 12:49 71 22 40 18/17 12:00 98.9 75 20 128/78 100 Mechanical Ventilator 40 18/17 12:00 40 18/17 12:00 72 Intake and Output 18/17 7/17 19:00 07:00 Intake Total 860 ml 900 ml Output Total 401 ml 572 ml Balance 459 ml 328 ml Intake Free Water 260 ml 300 ml Tube Feeding 600 ml 600 ml Output Urine Total 400 ml 570 ml Stool Total 1 ml 2 ml # Bowel Movements 1 6 Laboratory Tests Test 12/04/16 04:00 White Blood Count 13.0 K/UL (4.8-10.8) H Red Blood Count 4.00 M/UL (4.70-6.10) L Hemoglobin 10.1 G/DL (14.2-18.0) L Hematocrit 32.6 % (42.0-52.0) L Mean Corpuscular Volume 81 FL (80-99) Mean Corpuscular Hemoglobin 25.3 PG (27.0-31.0) L Mean Corpuscular Hemoglobin Concent 31.1 G/DL (32.0-36.0) L Red Cell Distribution Width 17.7 % (11.6-14.8) H Platelet Count 371 K/UL (150-450) Mean Platelet Volume 6.1 FL (6.5-10.1) L Neutrophils (%) (Auto) 69.4 % (45.0-75.0) Lymphocytes (%) (Auto) 18.8 % (20.0-45.0) L Monocytes (%) (Auto) 8.2 % (1.0-10.0) Eosinophils (%) (Auto) 3.2 % (0.0-3.0) H Basophils (%) (Auto) 0.4 % (0.0-2.0) Sodium Level 141 mEQ/L (135-145) Potassium Level 3.8 mEQ/L (3.4-4.9) Chloride Level 103 mEQ/L (98-107) Carbon Dioxide Level 29 mEQ/L (20-30) Anion Gap 9 (5-15) Blood Urea Nitrogen 36 mg/dL (7-23) H Creatinine 1.5 mg/dL (0.7-1.2) H Estimat Glomerular Filtration Rate mL/min (>60) Glucose Level 143 mg/dL (74-106) H Calcium Level 9.5 mg/dL (8.6-10.2) Total Bilirubin 0.2 mg/dL (0.0-1.2) Aspartate Amino Transf (AST/SGOT) 18 U/L (5-40) Alanine Aminotransferase (ALT/SGPT) 15 U/L (3-41) Alkaline Phosphatase 83 U/L (40-129) Pro-B-Type Natriuretic Peptide 879 pg/mL (0-450) H Total Protein 7.7 g/dL (6.6-8.7) Albumin 2.8 g/dL (3.5-5.2) L Globulin 4.9 g/dL Albumin/Globulin Ratio 0.5 (1.0-2.7) L Height (Feet): 6 Height (Inches): 1.00 Weight (Pounds): 178 General Appearance: no apparent distress, alert Cardiovascular: normal rate Respiratory/Chest: normal breath sounds, no respiratory distress Abdominal Exam: normal bowel sounds, non tender, soft Extremities: normal range of motion, non-tender Delfina Francois N.P. Dec 04, 2016 11:56
--- NOTE | 2016-12-04 13:30 | Diagnostic Imaging Report ---
Indication: DYSPNEA Technique: One view of the chest Comparison: 12/03/2016 Findings: There is a tracheostomy. Right arm PICC is again demonstrated. There is left costophrenic angle blunting, may reflect a small amount of pleural fluid. There is retrocardiac consolidation or atelectasis. Findings are unchanged Impression: Unchanged, over one day, findings as above.
--- NOTE | 2016-12-04 14:38 | General Progress Note ---
Assessment/Plan Problem List: (1) Sepsis ICD Codes: A41.9 - Sepsis, unspecified organism SNOMED: 18574117 (2) Septic shock ICD Codes: A41.9 - Sepsis, unspecified organism; R65.21 - Severe sepsis with septic shock SNOMED: 56079733 (3) Renal failure ICD Codes: N19 - Unspecified kidney failure SNOMED: 22083930 Qualifiers: Qualified Codes: N17.9 - Acute kidney failure, unspecified (4) Respiratory distress ICD Codes: R06.00 - Dyspnea, unspecified SNOMED: 368208966 (5) Pneumonia ICD Codes: J18.9 - Pneumonia, unspecified organism SNOMED: 368435114 (6) UTI (urinary tract infection) ICD Codes: N39.0 - Urinary tract infection, site not specified SNOMED: 54245566 Status: unchanged Assessment/Plan vent abx cbc bmp am, naima ltach eval Subjective Constitutional: Reports: weakness Allergies: Coded Allergies: No Known Allergies (Verified , 01/02/09) All Systems: reviewed and negative except above Subjective s/p trach in icu Objective Last 24 Hour Vital Signs Date Time Temp Pulse Resp B/P Pulse Ox O2 Delivery O2 Flow Rate FiO2 12/04/16 14:34 78 22 40 12/04/16 13:51 120/78 12/04/16 13:00 71 20 120/78 100 Mechanical Ventilator 40 12/04/16 12:31 76 19 40 12/04/16 12:00 40 12/04/16 12:00 71 12/04/16 12:00 98.7 73 20 128/70 100 Mechanical Ventilator 40 12/04/16 11:00 70 18 133/72 100 Mechanical Ventilator 40 12/04/16 10:47 76 22 40 12/04/16 10:00 72 20 131/69 100 Mechanical Ventilator 40 12/04/16 09:00 70 19 136/73 100 Mechanical Ventilator 40 12/04/16 08:53 74 18 40 12/04/16 08:25 74 147/77 12/04/16 08:25 74 147/77 12/04/16 08:00 84 12/04/16 08:00 98.5 69 20 147/77 100 Mechanical Ventilator 40 12/04/16 08:00 40 12/04/16 07:13 78 22 40 12/04/16 07:00 76 22 131/81 100 Mechanical Ventilator 40 7 06:00 74 22 153/85 100 Mechanical Ventilator 40 7 05:48 104/79 7 05:00 78 22 104/79 100 Mechanical Ventilator 40 7 04:48 73 18 40 7 04:00 98.0 76 22 143/73 100 Mechanical Ventilator 40 12/04/16 04:00 71 12/04/16 04:00 40 12/04/16 03:30 78 23 40 7 03:00 75 22 123/106 100 Mechanical Ventilator 40 7 02:00 74 20 158/73 100 Mechanical Ventilator 40 12/04/16 01:30 76 22 40 12/04/16 01:00 75 22 158/74 100 Mechanical Ventilator 40 12/04/16 00:00 70 12/04/16 00:00 98.2 72 20 159/74 100 Mechanical Ventilator 40 12/04/16 00:00 40 17 23:27 71 18 40 7 23:00 71 20 152/71 100 Mechanical Ventilator 40 717 22:19 142/69 718/17 22:00 73 20 142/69 100 Mechanical Ventilator 40 718/17 21:09 71 20 40 718/17 21:00 70 20 144/70 100 Mechanical Ventilator 40 18/17 20:55 75 134/83 718/17 20:00 77 18/17 20:00 98.6 77 24 134/83 100 Mechanical Ventilator 40 18/17 20:00 40 1817 19:08 77 23 40 718/17 19:00 74 20 133/71 100 Mechanical Ventilator 40 718/17 18:00 74 20 137/69 100 Mechanical Ventilator 40 718/17 17:00 78 20 123/73 100 Mechanical Ventilator 40 718/17 16:49 82 21 40 718/17 16:00 73 18/17 16:00 40 18/17 16:00 98.8 75 20 128/68 100 Mechanical Ventilator 40 718/17 15:00 75 20 136/71 100 Mechanical Ventilator 40 718/17 14:41 72 25 40 Intake and Output /18/17 7/ 19:00 07:00 Intake Total 860 ml 900 ml Output Total 401 ml 572 ml Balance 459 ml 328 ml Intake Free Water 260 ml 300 ml Tube Feeding 600 ml 600 ml Output Urine Total 400 ml 570 ml Stool Total 1 ml 2 ml # Bowel Movements 1 6 Laboratory Tests 12/04/16 04:00: White Blood Count 13.0H, Red Blood Count 4.00L, Hemoglobin 10.1L, Hematocrit 32.6L, Mean Corpuscular Volume 81, Mean Corpuscular Hemoglobin 25.3L, Mean Corpuscular Hemoglobin Concent 31.1L, Red Cell Distribution Width 17.7H, Platelet Count 371, Mean Platelet Volume 6.1L, Neutrophils (%) (Auto) 69.4, Lymphocytes (%) (Auto) 18.8L, Monocytes (%) (Auto) 8.2, Eosinophils (%) (Auto) 3.2H, Basophils (%) (Auto) 0.4, Sodium Level 141, Potassium Level 3.8, Chloride Level 103, Carbon Dioxide Level 29, Anion Gap 9, Blood Urea Nitrogen 36H, Creatinine 1.5H, Estimat Glomerular Filtration Rate , Glucose Level 143H, Calcium Level 9.5, Total Bilirubin 0.2, Aspartate Amino Transf (AST/SGOT) 18, Alanine Aminotransferase (ALT/SGPT) 15, Alkaline Phosphatase 83, Pro-B-Type Natriuretic Peptide 879H, Total Protein 7.7, Albumin 2.8L, Globulin 4.9, Albumin /Globulin Ratio 0.5L Height (Feet): 6 Height (Inches): 1.00 Weight (Pounds): 178 General Appearance: lethargic EENT: normal ENT inspection Neck: normal alignment Cardiovascular: normal peripheral pulses, normal rate, regular rhythm Respiratory/Chest: chest wall non-tender, lungs clear, normal breath sounds Abdomen: normal bowel sounds, non tender, soft Extremities: normal inspection Edema: no edema noted Arm (L), no edema noted Arm (R), no edema noted Leg (L), no edema noted Leg (R), no edema noted Pedal (L), no edema noted Pedal (R), no edema noted Generalized Neurologic: motor weakness Skin: normal pigmentation, warm/dry CASS YANES Dec 04, 2016 14:38
--- NOTE | 2016-12-04 15:38 | Infectious Diseases Prog Note ---
Assessment/Plan Problems: (1) HCAP (healthcare-associated pneumonia) Assessment & Plan: due to MRSA , S/P vancomycin and doxycycline for 14 days , improved (2) Septic shock Assessment & Plan: with proteus mirabilis ESBL + , suspect source is UTI , repeated blood culture to confirm clearance is negative , S/P zosyn for 14 days . EOT 12/02/16 (3) Respiratory distress Assessment & Plan: due to the above, S/P intubation, failed multiple attempts to wean him off , om mechanical ventilation, monitor ABG, titrate oxygen as needed (4) UTI (urinary tract infection) Assessment & Plan: with proteus mirabilis and Providencia stuartii , most likely the source of his sepsis, S/P zosyn for 14 days (5) Renal failure Assessment & Plan: improving, continue hydration, avoid nephrotoxic meds (6) Hydronephrosis of left kidney Assessment & Plan: with hematuria, most likely due to urethral tear , had urology eval , and no intervention needed for now (7) Ventilator dependent Assessment & Plan: S/P tracheostomy , ENT is following, continue local trach care Subjective ROS Limited/Unobtainable: Yes Allergies: Coded Allergies: No Known Allergies (Verified , 01/02/09) Subjective he failed multiple weaning trials, S/P tracheostomy today , intubated on mechanical ventilation, alert, off sedation, not in distress, off pressors, afebrile Objective Vital Signs Last 24 Hour Vital Signs Date Time Temp Pulse Resp B/P Pulse Ox O2 Delivery O2 Flow Rate FiO2 12/04/16 15:00 76 22 122/75 100 Mechanical Ventilator 40 12/04/16 14:34 78 22 40 12/04/16 14:00 75 25 118/75 100 Mechanical Ventilator 40 12/04/16 13:51 120/78 12/04/16 13:00 71 20 120/78 100 Mechanical Ventilator 40 12/04/16 12:31 76 19 40 12/04/16 12:00 40 12/04/16 12:00 71 12/04/16 12:00 98.7 73 20 128/70 100 Mechanical Ventilator 40 12/04/16 11:00 70 18 133/72 100 Mechanical Ventilator 40 12/04/16 10:47 76 22 40 12/04/16 10:00 72 20 131/69 100 Mechanical Ventilator 40 12/04/16 09:00 70 19 136/73 100 Mechanical Ventilator 40 [id number] 08:53 74 18 40 7/17 08:25 74 147/77 717 08:25 74 147/77 7 08:00 84 717 08:00 98.5 69 20 147/77 100 Mechanical Ventilator 40 717 08:00 40 717 07:13 78 22 40 7 07:00 76 22 131/81 100 Mechanical Ventilator 40 7 06:00 74 22 153/85 100 Mechanical Ventilator 40 7 05:48 104/79 7 05:00 78 22 104/79 100 Mechanical Ventilator 40 12/04/16 04:48 73 18 40 7 04:00 98.0 76 22 143/73 100 Mechanical Ventilator 40 12/04/16 04:00 71 12/04/16 04:00 40 12/04/16 03:30 78 23 40 12/04/16 03:00 75 22 123/106 100 Mechanical Ventilator 40 12/04/16 02:00 74 20 158/73 100 Mechanical Ventilator 40 12/04/16 01:30 76 22 40 7/17 01:00 75 22 158/74 100 Mechanical Ventilator 40 12/04/16 00:00 70 12/04/16 00:00 98.2 72 20 159/74 100 Mechanical Ventilator 40 12/04/17 00:00 40 7/18/17 23:27 71 18 40 718/17 23:00 71 20 152/71 100 Mechanical Ventilator 40 718/17 22:19 142/69 7/18/17 22:00 73 20 142/69 100 Mechanical Ventilator 40 718/17 21:09 71 20 40 7/18/17 21:00 70 20 144/70 100 Mechanical Ventilator 40 7/18/17 20:55 75 134/83 7/18/17 20:00 77 7/18/17 20:00 98.6 77 24 134/83 100 Mechanical Ventilator 40 7/18/17 20:00 40 7/18/17 19:08 77 23 40 7/18/17 19:00 74 20 133/71 100 Mechanical Ventilator 40 718/17 18:00 74 20 137/69 100 Mechanical Ventilator 40 7/18/17 17:00 78 20 123/73 100 Mechanical Ventilator 40 12/03/16 16:49 82 21 40 12/03/16 16:00 73 12/03/16 16:00 40 12/03/16 16:00 98.8 75 20 128/68 100 Mechanical Ventilator 40 Height (Feet): 6 Height (Inches): 1.00 Weight (Pounds): 178 General Appearance: WD/WN, no acute distress HEENT: normocephalic, atraumatic, anicteric, mucous membranes moist, supple, status post trach Respiratory/Chest: chest wall non-tender, normal breath sounds, no respiratory distress, no accessory muscle use, decreased breath sounds Cardiovascular: normal peripheral pulses, normal rate, regular rhythm, no gallop/murmur, no JVD Abdomen: normal bowel sounds, soft, non tender, no organomegaly, non distended , no mass Extremities: no cyanosis, no clubbing Skin: no rash, no lesions Neurologic/Psychiatric: alert, oriented x 3 Musculoskeletal: normal muscle bulk, no effusion Laboratory Tests Test 12/04/16 04:00 White Blood Count 13.0 K/UL (4.8-10.8) H Red Blood Count 4.00 M/UL (4.70-6.10) L Hemoglobin 10.1 G/DL (14.2-18.0) L Hematocrit 32.6 % (42.0-52.0) L Mean Corpuscular Volume 81 FL (80-99) Mean Corpuscular Hemoglobin 25.3 PG (27.0-31.0) L Mean Corpuscular Hemoglobin Concent 31.1 G/DL (32.0-36.0) L Red Cell Distribution Width 17.7 % (11.6-14.8) H Platelet Count 371 K/UL (150-450) Mean Platelet Volume 6.1 FL (6.5-10.1) L Neutrophils (%) (Auto) 69.4 % (45.0-75.0) Lymphocytes (%) (Auto) 18.8 % (20.0-45.0) L Monocytes (%) (Auto) 8.2 % (1.0-10.0) Eosinophils (%) (Auto) 3.2 % (0.0-3.0) H Basophils (%) (Auto) 0.4 % (0.0-2.0) Sodium Level 141 mEQ/L (135-145) Potassium Level 3.8 mEQ/L (3.4-4.9) Chloride Level 103 mEQ/L (98-107) Carbon Dioxide Level 29 mEQ/L (20-30) Anion Gap 9 (5-15) Blood Urea Nitrogen 36 mg/dL (7-23) H Creatinine 1.5 mg/dL (0.7-1.2) H Estimat Glomerular Filtration Rate mL/min (>60) Glucose Level 143 mg/dL (74-106) H Calcium Level 9.5 mg/dL (8.6-10.2) Total Bilirubin 0.2 mg/dL (0.0-1.2) Aspartate Amino Transf (AST/SGOT) 18 U/L (5-40) Alanine Aminotransferase (ALT/SGPT) 15 U/L (3-41) Alkaline Phosphatase 83 U/L (40-129) Pro-B-Type Natriuretic Peptide 879 pg/mL (0-450) H Total Protein 7.7 g/dL (6.6-8.7) Albumin 2.8 g/dL (3.5-5.2) L Globulin 4.9 g/dL Albumin/Globulin Ratio 0.5 (1.0-2.7) L Current Medications Medications (Trade) Dose Ordered Sig/Keira Route PRN Reason Start Time Stop Time Status Last Admin Dose Admin Acetaminophen (Tylenol) 650 mg Q4H PRN ORAL fever 11/14/16 18:00 12/14/16 17:59 11/17/16 21:35 Albuterol/ Ipratropium (DuoNeb 0.5-3(2.5)mg/3ml) 3 ml Q4H PRN HHN sob 11/30/16 08:30 12/05/16 08:29 Amlodipine Besylate (Norvasc) 10 mg DAILY GT 11/18/16 11:00 12/18/16 10:59 12/04/16 08:25 Chlorhexidine Gluconate (Michelle-Hex 2%) 1 applic QHS TOPIC 11/15/16 21:00 12/15/16 20:59 12/03/16 20:54 Heparin Sodium (Porcine) (Heparin 5000 units/ml) 5,000 units EVERY 12 HOURS SUBQ 11/15/16 21:00 12/15/16 20:59 12/04/16 08:30 Hydralazine HCl (Apresoline) 10 mg Q4H PRN IV SBP > 150 11/18/16 12:15 12/18/16 12:14 12/02/16 07:36 Hydralazine HCl (Apresoline) 50 mg Q8HR GT 12/02/16 06:00 01/01/17 05:59 12/04/16 13:51 Hydromorphone HCl (Dilaudid) 0.5 mg Q4H PRN IVP Severe Pain (Pain Scale 7-10) 12/01/16 09:30 12/08/16 09:29 Lansoprazole (Prevacid) 30 mg DAILY GT 11/19/16 09:00 12/19/16 08:59 12/04/16 08:25 Lorazepam (Ativan 2mg/ml 1ml) 2 mg Q4H PRN IV For Anxiety 11/30/16 17:15 12/07/16 23:59 12/03/16 20:55 Metoprolol Tartrate (Lopressor) 12.5 mg Q12HR GT 11/30/16 09:00 12/30/16 08:59 12/04/16 08:25 Ondansetron HCl (Zofran) 4 mg Q6H PRN IVP Nausea & Vomiting 11/14/16 20:00 12/14/16 19:59 Polyethylene Glycol (Miralax) 17 gm DAILYPRN PRN GT Constipation 11/17/16 10:41 12/15/16 13:59 11/21/16 03:06 Vitamin A/Vitamin D (A & D Oint) 1 applic EVERY 12 HOURS TOPIC 11/15/16 21:00 12/15/16 20:59 12/04/16 08:25 Julianna Trejo M.D. Dec 04, 2016 15:38
[2016-12-04] MEDS: Dyna-Hex 2% Top Sol 8oz TOPIC SCH (21:07)
[2016-12-05] VITALS (7 sets, daily range): BP systolic 117–150; BP diastolic 63–82
[2016-12-05 05:05] LABS: BASOPHILS % (AUTO) 0.3 % (0.0-2.0); EOSINOPHILS % (AUTO) 3.5 % (0.0-3.0); LYMPHOCYTES % (AUTO) 23.6 % (20.0-45.0); MEAN CORPUSCULAR HEMOGLOBIN 24.3 PG (27.0-31.0); MEAN CORPUSCULAR VOLUME 81 FL (80-99); MEAN PLATELET VOLUME 6.3 FL (6.5-10.1); MONOCYTES % (AUTO) 7.2 % (1.0-10.0); NEUTROPHILS % (AUTO) 65.4 % (45.0-75.0); PLATELET COUNT 392 K/UL (150-450); RED BLOOD COUNT 4.17 M/UL (4.70-6.10); RED CELL DISTRIBUTION WIDTH 17.6 % (11.6-14.8); WHITE BLOOD COUNT 12.2 K/UL (4.8-10.8)
--- NOTE | 2016-12-05 05:15 | Progress Note ---
DATE: 12/04/2016 CARDIOLOGY PROGRESS NOTE: SUBJECTIVE: The patient remains in the intensive care unit. Condition remains critical. Prognosis remains guarded. He is status post tracheostomy. OBJECTIVE: VITAL SIGNS: Blood pressure 120/78, pulse 71, and respirations 20. Monitored rhythm sinus. LUNGS: Coarse breath sounds and trach secretions. HEART: Regular rhythm and rate. Normal S1 and S2. ABDOMEN: Soft. EXTREMITIES: Trace edema. LABORATORY DATA: White count is 13 and hemoglobin 10. Potassium 3.8, BUN 36, and creatinine 1.5. Albumin 2.8. Pro-natriuretic peptide 879. IMPRESSION: 1. Respiratory failure, status post tracheostomy. 2. Sepsis, status post shock. 3. Moderate protein-calorie malnutrition. 4. Acute on chronic renal failure, stabilizing. 5. Acute on chronic diastolic congestive heart failure, resolving and clinically compensated. PLAN: 1. Ventilator support respiratory hygiene. 2. Hold additional diuresis. 3. Nutrition by feeding tube. 4. Monitor cardiorenal parameters and volume status. 5. DVT and stress ulcer prophylaxis. Riki Francois M.D. DR: JOSEPH JOB#: [id number] CC:
[2016-12-05 05:39] LABS: ALANINE AMINOTRANSFERASE 14 U/L (3-41); ALBUMIN/GLOBULIN RATIO 0.4 (1.0-2.7); ANION GAP 10 (5-15); ASPARTATE AMINO TRANSFERASE 19 U/L (5-40); CALCIUM 9.8 mg/dL (8.6-10.2); CARBON DIOXIDE 29 mEQ/L (20-30); CHLORIDE 103 mEQ/L (98-107); CREATININE 1.4 mg/dL (0.7-1.2); HEMOLYSIS 0; PHOSPHORUS 3.3 mg/dL (2.5-4.8); POTASSIUM 3.7 mEQ/L (3.4-4.9); SODIUM 142 mEQ/L (135-145)
[2016-12-05] MEDS: HydrALAZINE 25mg tab GT SCH (05:52)
[2016-12-05] MEDS ORDERED: DuoNeb 0.5-3(2.5)mg/3ml neb HHN PRN (06:45)
[2016-12-05] MEDS ORDERED: LORazepam Inj 2mg/ml 1ml IV PRN (06:45)
[2016-12-05] MEDS ORDERED: Hydromorphone 0.5mg/0.5ml inj IVP PRN (06:45)
[2016-12-05] MEDS ORDERED: Miralax 17gm pkt GT PRN (06:46)
--- NOTE | 2016-12-05 08:48 | General Progress Note ---
Assessment/Plan Assessment/Plan (1) Respiratory distress (2) S/p tracheostomy on Ventilator (3) Septic Shock (4) Sacral decubitus ulcer Pt will be continued on Dilaudid. D/w Dr. Rodríguez and he concurred. Subjective Date patient seen: Dec 05, 2016 Time patient seen: 08:00 - am ROS Limited/Unobtainable: Yes Allergies: Coded Allergies: No Known Allergies (Verified , 01/02/09) Subjective The patient is laying bed at [facility] continued on vent, through tracheostomy. He is comfortable no distress at this time. Objective Last 24 Hour Vital Signs Date Time Temp Pulse Resp B/P Pulse Ox O2 Delivery O2 Flow Rate FiO2 12/05/16 08:00 98.5 77 25 126/72 99 Mechanical Ventilator 40 12/05/16 08:00 84 12/05/16 08:00 40 12/05/16 07:25 75 19 40 12/05/16 05:52 151/83 12/05/16 05:23 82 28 40 12/05/16 04:00 85 12/05/16 04:00 98.1 82 19 117/74 100 Mechanical Ventilator 40 12/05/16 04:00 40 12/05/16 03:23 70 21 40 12/05/16 01:10 74 22 40 12/05/16 00:34 76 12/05/16 00:30 97.9 75 18 134/78 100 Mechanical Ventilator 40 12/05/16 00:15 77 12/05/16 00:00 99.0 70 20 150/82 100 Mechanical Ventilator 40 12/05/16 00:00 72 12/05/16 00:00 40 12/04/16 23:35 146/87 12/04/16 23:28 72 18 40 12/04/16 23:00 72 19 145/82 100 Mechanical Ventilator 40 12/04/16 22:00 73 19 146/87 100 Mechanical Ventilator 40 12/04/16 21:32 77 20 40 12/04/16 21:07 72 133/78 12/04/16 21:00 75 19 127/82 100 Mechanical Ventilator 40 12/04/16 20:00 40 12/04/16 20:00 98.0 76 23 133/78 100 Mechanical Ventilator 40 12/04/16 20:00 72 12/04/16 19:00 67 23 136/77 100 Mechanical Ventilator 40 12/04/16 18:53 69 20 40 12/04/16 18:00 76 23 125/69 100 Mechanical Ventilator 40 12/04/16 17:00 77 24 128/74 100 Mechanical Ventilator 40 12/04/16 16:41 81 24 40 12/04/16 16:00 98.4 72 18 138/74 100 Mechanical Ventilator 40 12/04/16 16:00 40 12/04/16 16:00 73 12/04/16 15:00 76 22 122/75 100 Mechanical Ventilator 40 12/04/16 14:34 78 22 40 12/04/16 14:00 75 25 118/75 100 Mechanical Ventilator 40 12/04/16 13:51 120/78 12/04/16 13:00 71 20 120/78 100 Mechanical Ventilator 40 12/04/16 12:31 76 19 40 12/04/16 12:00 40 12/04/16 12:00 71 12/04/16 12:00 98.7 73 20 128/70 100 Mechanical Ventilator 40 12/04/16 11:00 70 18 133/72 100 Mechanical Ventilator 40 12/04/16 10:47 76 22 40 12/04/16 10:00 72 20 131/69 100 Mechanical Ventilator 40 12/04/16 09:00 70 19 136/73 100 Mechanical Ventilator 40 12/04/16 08:53 74 18 40 Intake and Output 12/04/16 12/05/16 19:00 07:00 Intake Total 980 ml 840 ml Output Total 550 ml 251 ml Balance 430 ml 589 ml Intake Free Water 300 ml 240 ml Tube Feeding 600 ml 600 ml Other 80 ml Output Urine Total 550 ml 250 ml Stool Total 1 ml # Bowel Movements 8 Laboratory Tests 12/05/16 04:00: White Blood Count 12.2H, Red Blood Count 4.17L, Hemoglobin 10.1L, Hematocrit 33.7L, Mean Corpuscular Volume 81, Mean Corpuscular Hemoglobin 24.3L, Mean Corpuscular Hemoglobin Concent 30.0L, Red Cell Distribution Width 17.6H, Platelet Count 392, Mean Platelet Volume 6.3L, Neutrophils (%) (Auto) 65.4, Lymphocytes (%) (Auto) 23.6, Monocytes (%) (Auto) 7.2, Eosinophils (%) (Auto) 3.5H, Basophils (%) (Auto) 0.3, Sodium Level 142, Potassium Level 3.7, Chloride Level 103, Carbon Dioxide Level 29, Anion Gap 10, Blood Urea Nitrogen 37H, Creatinine 1.4H, Estimat Glomerular Filtration Rate , Glucose Level 144H, Calcium Level 9.8, Phosphorus Level 3.3, Magnesium Level 2.0, Total Bilirubin 0.3, Aspartate Amino Transf (AST/SGOT) 19, Alanine Aminotransferase (ALT/SGPT) 14, Alkaline Phosphatase 82, Total Protein 8.0, Albumin 2.6L, Globulin 5.4, Albumin/Globulin Ratio 0.4L Height (Feet): 6 Height (Inches): 1.00 Weight (Pounds): 178 Objective General Appearance: other - trached Cardiovascular: normal rate, regular rhythm Respiratory/Chest: chest wall non-tender, rhonchi - bilaterally, other - On vent Abdomen: non tender, soft Edema: no edema noted Arm (L), no edema noted Arm (R), no edema noted Leg (L), no edema noted Leg (R), no edema noted Pedal (L), no edema noted Pedal (R) Neurologic: unresponsive AMMY LEMOS PRebecca Dec 05, 2016 08:48
[2016-12-05] MEDS: Vitamin A&D Oint 2oz Tube TOPIC SCH ×2 (09:00→21:08)
[2016-12-05] MEDS: Metoprolol Tartrate 12.5mg TAB GT SCH ×2 (09:49→21:05)
[2016-12-05] MEDS: Heparin 5000 units/ml inj SUBQ SCH ×2 (09:50→21:06)
--- NOTE | 2016-12-05 11:10 | Pulmonology Progress Note ---
Assessment/Plan Problems: (1) Ventilator dependent (2) Feeding by G-tube (3) Anemia (4) Acute encephalopathy (5) Decubital ulcer (6) Sepsis Respiratory: monitor respiratory rate, adjust FIO2 Cardiac: continue to monitor HR/BP Renal: F/U I&O, keep IV fluid, check electrolytes Infectious Disease: check cultures, continue antibiotics Gastrointestinal: continue feedings/current rate Endocrine: monitor blood sugar, check TSH, check HgA1C, continue sliding scale insulin Hematologic: monitor H/H, transfuse if hgb<8.5 Neurologic: PRN Ativan, PRN Morphine, keep patient comfortable Affect: PRN ativan Prophylaxis: Protonix, Heparin Notes Reviewed: case checker, cardio, renal Discussed with: nurses, consultants, case therapist Subjective ROS Limited/Unobtainable: No Constitutional: Reports: no symptoms Respiratory: Reports: no symptoms Cardiovascular: Reports: no symptoms Gastrointestinal/Abdominal: Reports: no symptoms Genitourinary: Reports: no symptoms Allergies: Coded Allergies: No Known Allergies (Verified , 01/02/09) Objective Last 24 Hour Vital Signs Date Time Temp Pulse Resp B/P Pulse Ox O2 Delivery O2 Flow Rate FiO2 12/05/16 09:49 78 128/77 12/05/16 09:49 78 128/77 12/05/16 09:11 70 21 40 12/05/16 08:00 98.5 77 25 126/72 99 Mechanical Ventilator 40 12/05/16 08:00 84 12/05/16 08:00 40 12/05/16 07:25 75 19 40 12/05/16 05:52 151/83 12/05/16 05:23 82 28 40 12/05/16 04:00 85 12/05/16 04:00 98.1 82 19 117/74 100 Mechanical Ventilator 40 12/05/16 04:00 40 12/05/16 03:23 70 21 40 12/05/16 01:10 74 22 40 12/05/16 00:34 76 12/05/16 00:30 97.9 75 18 134/78 100 Mechanical Ventilator 40 12/05/16 00:15 77 12/05/16 00:00 99.0 70 20 150/82 100 Mechanical Ventilator 40 12/05/16 00:00 72 12/05/16 00:00 40 12/04/16 23:35 146/87 12/04/16 23:28 72 18 40 12/04/16 23:00 72 19 145/82 100 Mechanical Ventilator 40 12/04/16 22:00 73 19 146/87 100 Mechanical Ventilator 40 12/04/16 21:32 77 20 40 12/04/16 21:07 72 133/78 12/04/16 21:00 75 19 127/82 100 Mechanical Ventilator 40 12/04/16 20:00 40 12/04/16 20:00 98.0 76 23 133/78 100 Mechanical Ventilator 40 12/04/16 20:00 72 12/04/16 19:00 67 23 136/77 100 Mechanical Ventilator 40 12/04/16 18:53 69 20 40 12/04/16 18:00 76 23 125/69 100 Mechanical Ventilator 40 12/04/16 17:00 77 24 128/74 100 Mechanical Ventilator 40 12/04/16 16:41 81 24 40 12/04/16 16:00 98.4 72 18 138/74 100 Mechanical Ventilator 40 12/04/16 16:00 40 12/04/16 16:00 73 12/04/16 15:00 76 22 122/75 100 Mechanical Ventilator 40 12/04/16 14:34 78 22 40 12/04/16 14:00 75 25 118/75 100 Mechanical Ventilator 40 12/04/16 13:51 120/78 12/04/16 13:00 71 20 120/78 100 Mechanical Ventilator 40 12/04/16 12:31 76 19 40 12/04/16 12:00 40 12/04/16 12:00 71 12/04/16 12:00 98.7 73 20 128/70 100 Mechanical Ventilator 40 Intake and Output 12/04/16 12/05/16 19:00 07:00 Intake Total 980 ml 840 ml Output Total 550 ml 251 ml Balance 430 ml 589 ml Intake Free Water 300 ml 240 ml Tube Feeding 600 ml 600 ml Other 80 ml Output Urine Total 550 ml 250 ml Stool Total 1 ml # Bowel Movements 8 General Appearance: WD/WN HEENT: normocephalic, atraumatic Respiratory/Chest: chest wall non-tender, lungs clear Cardiovascular: normal peripheral pulses, normal rate Abdomen: soft, non tender, no organomegaly Genitourinary: normal external genitalia Extremities: no clubbing Skin: no lesions 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 Lymphatic: no neck adenopathy Laboratory Tests 12/05/16 04:00: White Blood Count 12.2H, Red Blood Count 4.17L, Hemoglobin 10.1L, Hematocrit 33.7L, Mean Corpuscular Volume 81, Mean Corpuscular Hemoglobin 24.3L, Mean Corpuscular Hemoglobin Concent 30.0L, Red Cell Distribution Width 17.6H, Platelet Count 392, Mean Platelet Volume 6.3L, Neutrophils (%) (Auto) 65.4, Lymphocytes (%) (Auto) 23.6, Monocytes (%) (Auto) 7.2, Eosinophils (%) (Auto) 3.5H, Basophils (%) (Auto) 0.3, Sodium Level 142, Potassium Level 3.7, Chloride Level 103, Carbon Dioxide Level 29, Anion Gap 10, Blood Urea Nitrogen 37H, Creatinine 1.4H, Estimat Glomerular Filtration Rate , Glucose Level 144H, Calcium Level 9.8, Phosphorus Level 3.3, Magnesium Level 2.0, Total Bilirubin 0.3, Aspartate Amino Transf (AST/SGOT) 19, Alanine Aminotransferase (ALT/SGPT) 14, Alkaline Phosphatase 82, Total Protein 8.0, Albumin 2.6L, Globulin 5.4, Albumin/Globulin Ratio 0.4L Current Medications Medications (Trade) Dose Ordered Sig/Keira Route PRN Reason Start Time Stop Time Status Last Admin Dose Admin Acetaminophen (Tylenol) 650 mg Q4H PRN ORAL fever 12/05/16 06:43 01/04/17 06:42 Albuterol/ Ipratropium (DuoNeb 0.5-3(2.5)mg/3ml) 3 ml Q4H PRN HHN sob 12/05/16 06:45 12/10/16 06:44 Amlodipine Besylate (Norvasc) 10 mg DAILY GT 12/05/16 09:00 01/04/17 08:59 12/05/16 09:49 Chlorhexidine Gluconate (Michelle-Hex 2%) 1 applic QHS TOPIC 12/05/16 21:00 01/04/17 20:59 Heparin Sodium (Porcine) (Heparin 5000 units/ml) 5,000 units EVERY 12 HOURS SUBQ 12/05/16 09:00 01/04/17 08:59 12/05/16 09:50 Hydralazine HCl (Apresoline) 10 mg Q4H PRN IV SBP > 150 12/05/16 06:44 01/04/17 06:43 Hydralazine HCl (Apresoline) 50 mg Q8HR GT 12/05/16 14:00 01/04/17 13:59 Hydromorphone HCl (Dilaudid) 0.5 mg Q4H PRN IVP Severe Pain (Pain Scale 7-10) 12/05/16 06:45 12/12/16 06:44 Lansoprazole (Prevacid) 30 mg DAILY GT 12/05/16 09:00 01/04/17 08:59 12/05/16 09:49 Lorazepam (Ativan 2mg/ml 1ml) 2 mg Q4H PRN IV For Anxiety 12/05/16 06:45 12/12/16 06:44 Metoprolol Tartrate (Lopressor) 12.5 mg Q12HR GT 12/05/16 09:00 01/04/17 08:59 12/05/16 09:49 Ondansetron HCl (Zofran) 4 mg Q6H PRN IVP Nausea & Vomiting 12/05/16 06:46 01/04/17 06:45 Polyethylene Glycol (Miralax) 17 gm DAILYPRN PRN GT Constipation 12/05/16 06:46 01/04/17 06:45 Vitamin A/Vitamin D (A & D Oint) 1 applic EVERY 12 HOURS TOPIC 12/05/16 09:00 01/04/17 08:59 12/05/16 09:00 MARY CABELLO Dec 05, 2016 11:10
--- NOTE | 2016-12-05 11:50 | GI Progress Note ---
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 Taveras. Assessment/Plan s/p trach GT site care daily/prn GTFs per dietary, tolerating stable H&H, transfuse prn Prevacid GT abx fu labs Subjective Subjective limited Objective Last 24 Hour Vital Signs Date Time Temp Pulse Resp B/P Pulse Ox O2 Delivery O2 Flow Rate FiO2 12/05/16 11:34 82 24 40 12/05/16 11:20 82 22 40 12/05/16 11:17 78 12/05/16 11:17 40 12/05/16 09:49 78 128/77 12/05/16 09:49 78 128/77 12/05/16 09:11 70 21 40 12/05/16 08:00 98.5 77 25 126/72 99 Mechanical Ventilator 40 12/05/16 08:00 84 12/05/16 08:00 40 12/05/16 07:25 75 19 40 12/05/16 05:52 151/83 12/05/16 05:23 82 28 40 12/05/16 04:00 85 12/05/16 04:00 98.1 82 19 117/74 100 Mechanical Ventilator 40 12/05/16 04:00 40 12/05/16 03:23 70 21 40 12/05/16 01:10 74 22 40 12/05/16 00:34 76 12/05/16 00:30 97.9 75 18 134/78 100 Mechanical Ventilator 40 12/05/16 00:15 77 12/05/16 00:00 99.0 70 20 150/82 100 Mechanical Ventilator 40 12/05/16 00:00 72 12/05/16 00:00 40 12/04/16 23:35 146/87 12/04/16 23:28 72 18 40 12/04/16 23:00 72 19 145/82 100 Mechanical Ventilator 40 12/04/16 22:00 73 19 146/87 100 Mechanical Ventilator 40 12/04/16 21:32 77 20 40 12/04/16 21:07 72 133/78 12/04/16 21:00 75 19 127/82 100 Mechanical Ventilator 40 12/04/16 20:00 40 12/04/16 20:00 98.0 76 23 133/78 100 Mechanical Ventilator 40 12/04/16 20:00 72 12/04/16 19:00 67 23 136/77 100 Mechanical Ventilator 40 12/04/16 18:53 69 20 40 12/04/16 18:00 76 23 125/69 100 Mechanical Ventilator 40 12/04/16 17:00 77 24 128/74 100 Mechanical Ventilator 40 12/04/16 16:41 81 24 40 12/04/16 16:00 98.4 72 18 138/74 100 Mechanical Ventilator 40 12/04/16 16:00 40 12/04/16 16:00 73 12/04/16 15:00 76 22 122/75 100 Mechanical Ventilator 40 12/04/16 14:34 78 22 40 12/04/16 14:00 75 25 118/75 100 Mechanical Ventilator 40 12/04/16 13:51 120/78 12/04/16 13:00 71 20 120/78 100 Mechanical Ventilator 40 12/04/16 12:31 76 19 40 12/04/16 12:00 40 12/04/16 12:00 71 12/04/16 12:00 98.7 73 20 128/70 100 Mechanical Ventilator 40 Intake and Output 12/04/16 12/05/16 19:00 07:00 Intake Total 980 ml 840 ml Output Total 550 ml 251 ml Balance 430 ml 589 ml Intake Free Water 300 ml 240 ml Tube Feeding 600 ml 600 ml Other 80 ml Output Urine Total 550 ml 250 ml Stool Total 1 ml # Bowel Movements 8 Laboratory Tests Test 12/05/16 04:00 White Blood Count 12.2 K/UL (4.8-10.8) H Red Blood Count 4.17 M/UL (4.70-6.10) L Hemoglobin 10.1 G/DL (14.2-18.0) L Hematocrit 33.7 % (42.0-52.0) L Mean Corpuscular Volume 81 FL (80-99) Mean Corpuscular Hemoglobin 24.3 PG (27.0-31.0) L Mean Corpuscular Hemoglobin Concent 30.0 G/DL (32.0-36.0) L Red Cell Distribution Width 17.6 % (11.6-14.8) H Platelet Count 392 K/UL (150-450) Mean Platelet Volume 6.3 FL (6.5-10.1) L Neutrophils (%) (Auto) 65.4 % (45.0-75.0) Lymphocytes (%) (Auto) 23.6 % (20.0-45.0) Monocytes (%) (Auto) 7.2 % (1.0-10.0) Eosinophils (%) (Auto) 3.5 % (0.0-3.0) H Basophils (%) (Auto) 0.3 % (0.0-2.0) Sodium Level 142 mEQ/L (135-145) Potassium Level 3.7 mEQ/L (3.4-4.9) Chloride Level 103 mEQ/L (98-107) Carbon Dioxide Level 29 mEQ/L (20-30) Anion Gap 10 (5-15) Blood Urea Nitrogen 37 mg/dL (7-23) H Creatinine 1.4 mg/dL (0.7-1.2) H Estimat Glomerular Filtration Rate mL/min (>60) Glucose Level 144 mg/dL (74-106) H Calcium Level 9.8 mg/dL (8.6-10.2) Phosphorus Level 3.3 mg/dL (2.5-4.8) Magnesium Level 2.0 mg/dL (1.7-2.5) Total Bilirubin 0.3 mg/dL (0.0-1.2) Aspartate Amino Transf (AST/SGOT) 19 U/L (5-40) Alanine Aminotransferase (ALT/SGPT) 14 U/L (3-41) Alkaline Phosphatase 82 U/L (40-129) Total Protein 8.0 g/dL (6.6-8.7) Albumin 2.6 g/dL (3.5-5.2) L Globulin 5.4 g/dL Albumin/Globulin Ratio 0.4 (1.0-2.7) L Height (Feet): 6 Height (Inches): 1.00 Weight (Pounds): 178 General Appearance: no apparent distress Cardiovascular: normal rate Respiratory/Chest: normal breath sounds, no respiratory distress Abdominal Exam: soft, GT site - c/d/i Delfina Francois N.P. Dec 05, 2016 11:49
--- NOTE | 2016-12-05 11:50 | General Progress Note ---
Assessment/Plan Problem List: (1) Sepsis ICD Codes: A41.9 - Sepsis, unspecified organism SNOMED: 31260183 (2) Septic shock ICD Codes: A41.9 - Sepsis, unspecified organism; R65.21 - Severe sepsis with septic shock SNOMED: 26274876 (3) Renal failure ICD Codes: N19 - Unspecified kidney failure SNOMED: 21266619 Qualifiers: Qualified Codes: N17.9 - Acute kidney failure, unspecified (4) Respiratory distress ICD Codes: R06.00 - Dyspnea, unspecified SNOMED: 316842477 (5) Pneumonia ICD Codes: J18.9 - Pneumonia, unspecified organism SNOMED: 162342379 (6) UTI (urinary tract infection) ICD Codes: N39.0 - Urinary tract infection, site not specified SNOMED: 75227714 Status: stable, progressing, tolerating diet Assessment/Plan vent abx cbc bmp am, naima ltach eval Subjective Allergies: Coded Allergies: No Known Allergies (Verified , 01/02/09) All Systems: reviewed and negative except above Subjective s/p trach vent Objective Last 24 Hour Vital Signs Date Time Temp Pulse Resp B/P Pulse Ox O2 Delivery O2 Flow Rate FiO2 12/05/16 11:34 82 24 40 12/05/16 11:20 82 22 40 12/05/16 11:17 78 12/05/16 11:17 40 12/05/16 09:49 78 128/77 12/05/16 09:49 78 128/77 12/05/16 09:11 70 21 40 12/05/16 08:00 98.5 77 25 126/72 99 Mechanical Ventilator 40 12/05/16 08:00 84 12/05/16 08:00 40 12/05/16 07:25 75 19 40 12/05/16 05:52 151/83 12/05/16 05:23 82 28 40 12/05/16 04:00 85 12/05/16 04:00 98.1 82 19 117/74 100 Mechanical Ventilator 40 12/05/16 04:00 40 12/05/16 03:23 70 21 40 12/05/16 01:10 74 22 40 12/05/16 00:34 76 12/05/16 00:30 97.9 75 18 134/78 100 Mechanical Ventilator 40 12/05/16 00:15 77 12/05/16 00:00 99.0 70 20 150/82 100 Mechanical Ventilator 40 12/05/16 00:00 72 12/05/16 00:00 40 12/04/16 23:35 146/87 12/04/16 23:28 72 18 40 12/04/16 23:00 72 19 145/82 100 Mechanical Ventilator 40 12/04/16 22:00 73 19 146/87 100 Mechanical Ventilator 40 12/04/16 21:32 77 20 40 12/04/16 21:07 72 133/78 12/04/16 21:00 75 19 127/82 100 Mechanical Ventilator 40 12/04/16 20:00 40 12/04/16 20:00 98.0 76 23 133/78 100 Mechanical Ventilator 40 12/04/16 20:00 72 12/04/16 19:00 67 23 136/77 100 Mechanical Ventilator 40 12/04/16 18:53 69 20 40 12/04/16 18:00 76 23 125/69 100 Mechanical Ventilator 40 12/04/16 17:00 77 24 128/74 100 Mechanical Ventilator 40 12/04/16 16:41 81 24 40 12/04/16 16:00 98.4 72 18 138/74 100 Mechanical Ventilator 40 12/04/16 16:00 40 12/04/16 16:00 73 12/04/16 15:00 76 22 122/75 100 Mechanical Ventilator 40 12/04/16 14:34 78 22 40 12/04/16 14:00 75 25 118/75 100 Mechanical Ventilator 40 12/04/16 13:51 120/78 12/04/16 13:00 71 20 120/78 100 Mechanical Ventilator 40 12/04/16 12:31 76 19 40 12/04/16 12:00 40 12/04/16 12:00 71 12/04/16 12:00 98.7 73 20 128/70 100 Mechanical Ventilator 40 Intake and Output 12/04/16 12/05/16 19:00 07:00 Intake Total 980 ml 840 ml Output Total 550 ml 251 ml Balance 430 ml 589 ml Intake Free Water 300 ml 240 ml Tube Feeding 600 ml 600 ml Other 80 ml Output Urine Total 550 ml 250 ml Stool Total 1 ml # Bowel Movements 8 Laboratory Tests 12/05/16 04:00: White Blood Count 12.2H, Red Blood Count 4.17L, Hemoglobin 10.1L, Hematocrit 33.7L, Mean Corpuscular Volume 81, Mean Corpuscular Hemoglobin 24.3L, Mean Corpuscular Hemoglobin Concent 30.0L, Red Cell Distribution Width 17.6H, Platelet Count 392, Mean Platelet Volume 6.3L, Neutrophils (%) (Auto) 65.4, Lymphocytes (%) (Auto) 23.6, Monocytes (%) (Auto) 7.2, Eosinophils (%) (Auto) 3.5H, Basophils (%) (Auto) 0.3, Sodium Level 142, Potassium Level 3.7, Chloride Level 103, Carbon Dioxide Level 29, Anion Gap 10, Blood Urea Nitrogen 37H, Creatinine 1.4H, Estimat Glomerular Filtration Rate , Glucose Level 144H, Calcium Level 9.8, Phosphorus Level 3.3, Magnesium Level 2.0, Total Bilirubin 0.3, Aspartate Amino Transf (AST/SGOT) 19, Alanine Aminotransferase (ALT/SGPT) 14, Alkaline Phosphatase 82, Total Protein 8.0, Albumin 2.6L, Globulin 5.4, Albumin/Globulin Ratio 0.4L Height (Feet): 6 Height (Inches): 1.00 Weight (Pounds): 178 General Appearance: lethargic EENT: normal ENT inspection Neck: normal alignment Cardiovascular: normal peripheral pulses, normal rate, regular rhythm Respiratory/Chest: chest wall non-tender, lungs clear, normal breath sounds Abdomen: normal bowel sounds, non tender, soft Extremities: normal inspection Edema: no edema noted Arm (L), no edema noted Arm (R), no edema noted Leg (L), no edema noted Leg (R), no edema noted Pedal (L), no edema noted Pedal (R), no edema noted Generalized Neurologic: motor weakness Skin: normal pigmentation, warm/dry CASS YANES Dec 05, 2016 11:50
[2016-12-05] MEDS: HydrALAZINE 50mg tab GT SCH ×2 (14:00→22:13)
[2016-12-05] MEDS ORDERED: HydrALAZINE 25mg tab GT SCH (14:00)
--- NOTE | 2016-12-05 16:39 | Infectious Diseases Prog Note ---
Assessment/Plan Problems: (1) HCAP (healthcare-associated pneumonia) Assessment & Plan: due to MRSA , S/P vancomycin and doxycycline for 14 days , improved (2) Septic shock Assessment & Plan: with proteus mirabilis ESBL + , suspect source is UTI , repeated blood culture to confirm clearance is negative , S/P zosyn for 14 days . EOT 12/02/16 (3) Respiratory distress Assessment & Plan: due to the above, S/P intubation, failed multiple attempts to wean him off , om mechanical ventilation, monitor ABG, titrate oxygen as needed (4) UTI (urinary tract infection) Assessment & Plan: with proteus mirabilis and Providencia stuartii , most likely the source of his sepsis, S/P zosyn for 14 days (5) Renal failure Assessment & Plan: improving, continue hydration, avoid nephrotoxic meds (6) Hydronephrosis of left kidney Assessment & Plan: with hematuria, most likely due to urethral tear , had urology eval , and no intervention needed for now (7) Ventilator dependent Assessment & Plan: S/P tracheostomy , ENT is following, continue local trach care Subjective ROS Limited/Unobtainable: Yes Allergies: Coded Allergies: No Known Allergies (Verified , 01/02/09) Subjective he was doing ok, S/P tracheostomy , alert, off sedation, not in distress, afebrile Objective Vital Signs Last 24 Hour Vital Signs Date Time Temp Pulse Resp B/P Pulse Ox O2 Delivery O2 Flow Rate FiO2 12/05/16 15:20 77 23 40 12/05/16 14:00 110/65 12/05/16 13:16 72 20 40 12/05/16 12:00 97.7 75 28 120/63 99 Mechanical Ventilator 40 12/05/16 11:34 82 24 40 12/05/16 11:20 82 22 40 12/05/16 11:17 78 12/05/16 11:17 40 12/05/16 09:49 78 128/77 12/05/16 09:49 78 128/77 12/05/16 09:11 70 21 40 12/05/16 08:00 98.5 77 25 126/72 99 Mechanical Ventilator 40 12/05/16 08:00 84 12/05/16 08:00 40 12/05/16 07:25 75 19 40 12/05/16 05:52 151/83 12/05/16 05:23 82 28 40 12/05/16 04:00 85 12/05/16 04:00 98.1 82 19 117/74 100 Mechanical Ventilator 40 12/05/16 04:00 40 12/05/16 03:23 70 21 40 12/05/16 01:10 74 22 40 12/05/16 00:34 76 12/05/16 00:30 97.9 75 18 134/78 100 Mechanical Ventilator 40 12/05/16 00:15 77 12/05/16 00:00 99.0 70 20 150/82 100 Mechanical Ventilator 40 12/05/16 00:00 72 12/05/16 00:00 40 12/04/16 23:35 146/87 12/04/16 23:28 72 18 40 12/04/16 23:00 72 19 145/82 100 Mechanical Ventilator 40 12/04/16 22:00 73 19 146/87 100 Mechanical Ventilator 40 12/04/16 21:32 77 20 40 12/04/16 21:07 72 133/78 12/04/16 21:00 75 19 127/82 100 Mechanical Ventilator 40 12/04/16 20:00 40 12/04/16 20:00 98.0 76 23 133/78 100 Mechanical Ventilator 40 12/04/16 20:00 72 12/04/16 19:00 67 23 136/77 100 Mechanical Ventilator 40 12/04/16 18:53 69 20 40 12/04/16 18:00 76 23 125/69 100 Mechanical Ventilator 40 12/04/16 17:00 77 24 128/74 100 Mechanical Ventilator 40 12/04/16 16:41 81 24 40 Height (Feet): 6 Height (Inches): 1.00 Weight (Pounds): 178 General Appearance: WD/WN, no acute distress HEENT: normocephalic, atraumatic, anicteric, mucous membranes moist Respiratory/Chest: chest wall non-tender, lungs clear, normal breath sounds, no respiratory distress, no accessory muscle use Cardiovascular: normal peripheral pulses, normal rate, regular rhythm, no gallop/murmur, no JVD Abdomen: normal bowel sounds, soft, non tender, no organomegaly, non distended , no mass, no scars Extremities: no cyanosis, no clubbing Skin: no rash, no lesions, ulcers Laboratory Tests Test 12/05/16 04:00 White Blood Count 12.2 K/UL (4.8-10.8) H Red Blood Count 4.17 M/UL (4.70-6.10) L Hemoglobin 10.1 G/DL (14.2-18.0) L Hematocrit 33.7 % (42.0-52.0) L Mean Corpuscular Volume 81 FL (80-99) Mean Corpuscular Hemoglobin 24.3 PG (27.0-31.0) L Mean Corpuscular Hemoglobin Concent 30.0 G/DL (32.0-36.0) L Red Cell Distribution Width 17.6 % (11.6-14.8) H Platelet Count 392 K/UL (150-450) Mean Platelet Volume 6.3 FL (6.5-10.1) L Neutrophils (%) (Auto) 65.4 % (45.0-75.0) Lymphocytes (%) (Auto) 23.6 % (20.0-45.0) Monocytes (%) (Auto) 7.2 % (1.0-10.0) Eosinophils (%) (Auto) 3.5 % (0.0-3.0) H Basophils (%) (Auto) 0.3 % (0.0-2.0) Sodium Level 142 mEQ/L (135-145) Potassium Level 3.7 mEQ/L (3.4-4.9) Chloride Level 103 mEQ/L (98-107) Carbon Dioxide Level 29 mEQ/L (20-30) Anion Gap 10 (5-15) Blood Urea Nitrogen 37 mg/dL (7-23) H Creatinine 1.4 mg/dL (0.7-1.2) H Estimat Glomerular Filtration Rate mL/min (>60) Glucose Level 144 mg/dL (74-106) H Calcium Level 9.8 mg/dL (8.6-10.2) Phosphorus Level 3.3 mg/dL (2.5-4.8) Magnesium Level 2.0 mg/dL (1.7-2.5) Total Bilirubin 0.3 mg/dL (0.0-1.2) Aspartate Amino Transf (AST/SGOT) 19 U/L (5-40) Alanine Aminotransferase (ALT/SGPT) 14 U/L (3-41) Alkaline Phosphatase 82 U/L (40-129) Total Protein 8.0 g/dL (6.6-8.7) Albumin 2.6 g/dL (3.5-5.2) L Globulin 5.4 g/dL Albumin/Globulin Ratio 0.4 (1.0-2.7) L Current Medications Medications (Trade) Dose Ordered Sig/Keira Route PRN Reason Start Time Stop Time Status Last Admin Dose Admin Acetaminophen (Tylenol) 650 mg Q4H PRN ORAL fever 12/05/16 06:43 01/04/17 06:42 Albuterol/ Ipratropium (DuoNeb 0.5-3(2.5)mg/3ml) 3 ml Q4H PRN HHN sob 12/05/16 06:45 12/10/16 06:44 Amlodipine Besylate (Norvasc) 10 mg DAILY GT 12/05/16 09:00 01/04/17 08:59 12/05/16 09:49 Chlorhexidine Gluconate (Michelle-Hex 2%) 1 applic QHS TOPIC 12/05/16 21:00 01/04/17 20:59 Heparin Sodium (Porcine) (Heparin 5000 units/ml) 5,000 units EVERY 12 HOURS SUBQ 12/05/16 09:00 01/04/17 08:59 12/05/16 09:50 Hydralazine HCl (Apresoline) 10 mg Q4H PRN IV SBP > 150 12/05/16 06:44 01/04/17 06:43 Hydralazine HCl (Apresoline) 50 mg Q8HR GT 12/05/16 14:00 01/04/17 13:59 Hydromorphone HCl (Dilaudid) 0.5 mg Q4H PRN IVP Severe Pain (Pain Scale 7-10) 12/05/16 06:45 12/12/16 06:44 Lansoprazole (Prevacid) 30 mg DAILY GT 12/05/16 09:00 01/04/17 08:59 12/05/16 09:49 Lorazepam (Ativan 2mg/ml 1ml) 2 mg Q4H PRN IV For Anxiety 12/05/16 06:45 12/12/16 06:44 Metoprolol Tartrate (Lopressor) 12.5 mg Q12HR GT 12/05/16 09:00 01/04/17 08:59 12/05/16 09:49 Ondansetron HCl (Zofran) 4 mg Q6H PRN IVP Nausea & Vomiting 12/05/16 06:46 01/04/17 06:45 Polyethylene Glycol (Miralax) 17 gm DAILYPRN PRN GT Constipation 12/05/16 06:46 01/04/17 06:45 Vitamin A/Vitamin D (A & D Oint) 1 applic EVERY 12 HOURS TOPIC 12/05/16 09:00 01/04/17 08:59 12/05/16 09:00 Julianna Trejo M.D. Dec 05, 2016 16:39
[2016-12-05] MEDS ORDERED: Dyna-Hex 2% Top Sol 8oz TOPIC SCH (21:00)
[2016-12-06] VITALS: BP 127/60
[2016-12-06 04:00] VITALS: BP 127/78
--- NOTE | 2016-12-06 04:15 | Progress Note ---
DATE: 12/05/2016 CARDIOLOGY PROGRESS NOTE SUBJECTIVE: The patient remains on ventilator support, following tracheostomy. There are no new events. OBJECTIVE: VITAL SIGNS: Blood pressure 128/77, pulse 78, and respirations 21. NECK: Supple. Thin trach secretions. No bleeding. HEART: Regular rhythm and rate. Normal S1 and S2. LUNGS: Reveal few rhonchi. ABDOMEN: Soft with no guarding. EXTREMITIES: Revealed trace dependent edema. LABORATORY DATA: White count 12, hemoglobin 10. Potassium 3.7, BUN 37, and creatinine 1.4. Albumin 2.6. IMPRESSION: 1. Ventilator dependent respiratory failure, recovered. 2. Sepsis with shock. 3. Severe protein-calorie malnutrition. 4. Acute on chronic renal failure, improved. 5. Acute on chronic diastolic congestive heart failure, now compensated. 6. Paroxysmal atrial ectopy, suppressed. PLAN: 1. Follow up laboratory studies. 2. Continue ventilator support. 3. Monitor volume status and cardiorenal parameters. Diuresed periodically as needed. 4. Continue current cardiovascular medications presently without change. 5. Discharge planning to subacute facility in progress. Riki Francois M.D. DR: CHRISTIAN JOB#: [id number] CC:
[2016-12-06] MEDS: HydrALAZINE 50mg tab GT SCH ×2 (05:38→14:00)
[2016-12-06 06:34] LABS: BASOPHILS % (AUTO) 0.5 % (0.0-2.0); EOSINOPHILS % (AUTO) 4.3 % (0.0-3.0); LYMPHOCYTES % (AUTO) 29.1 % (20.0-45.0); MEAN CORPUSCULAR HEMOGLOBIN 25.8 PG (27.0-31.0); MEAN CORPUSCULAR HGB CONC 31.6 G/DL (32.0-36.0); MEAN CORPUSCULAR VOLUME 82 FL (80-99); MEAN PLATELET VOLUME 6.4 FL (6.5-10.1); MONOCYTES % (AUTO) 6.5 % (1.0-10.0); NEUTROPHILS % (AUTO) 59.7 % (45.0-75.0); PLATELET COUNT 378 K/UL (150-450); RED BLOOD COUNT 3.97 M/UL (4.70-6.10); RED CELL DISTRIBUTION WIDTH 17.9 % (11.6-14.8); WHITE BLOOD COUNT 11.4 K/UL (4.8-10.8)
[2016-12-06 07:02] LABS: ALANINE AMINOTRANSFERASE 21 U/L (3-41); ALBUMIN/GLOBULIN RATIO 0.6 (1.0-2.7); ANION GAP 11 (5-15); ASPARTATE AMINO TRANSFERASE 26 U/L (5-40); CALCIUM 9.9 mg/dL (8.6-10.2); CARBON DIOXIDE 30 mEQ/L (20-30); CHLORIDE 104 mEQ/L (98-107); CREATININE 1.5 mg/dL (0.7-1.2); HEMOLYSIS 0; MAGNESIUM 2.2 mg/dL (1.7-2.5); PHOSPHORUS 3.2 mg/dL (2.5-4.8); POTASSIUM 3.9 mEQ/L (3.4-4.9); SODIUM 145 mEQ/L (135-145); TOTAL PROTEIN 7.7 g/dL (6.6-8.7)
[2016-12-06 08:00] VITALS: BP 128/79
[2016-12-06] MEDS: Vitamin A&D Oint 2oz Tube TOPIC SCH (09:00)
[2016-12-06] MEDS: Metoprolol Tartrate 12.5mg TAB GT SCH (09:34)
[2016-12-06] MEDS: Heparin 5000 units/ml inj SUBQ SCH (09:35)
--- NOTE | 2016-12-06 11:53 | Pulmonology Progress Note ---
Assessment/Plan Problems: (1) Ventilator dependent (2) Feeding by G-tube (3) Anemia (4) Acute encephalopathy (5) Decubital ulcer (6) Sepsis Respiratory: monitor respiratory rate, adjust FIO2 Cardiac: continue to monitor HR/BP Renal: F/U I&O, keep IV fluid Infectious Disease: check cultures Gastrointestinal: continue feedings/current rate, hold feedings Endocrine: continue sliding scale insulin Hematologic: monitor H/H, transfuse if hgb<8.5 Neurologic: PRN Ativan, keep patient comfortable Affect: PRN ativan Notes Reviewed: vice president sales, cardio, renal Discussed with: nurses, consultants, rn case mgr Subjective ROS Limited/Unobtainable: No Constitutional: Reports: no symptoms HEENT: Repors: no symptoms Respiratory: Reports: no symptoms Allergies: Coded Allergies: No Known Allergies (Verified , 01/02/09) Objective Last 24 Hour Vital Signs Date Time Temp Pulse Resp B/P Pulse Ox O2 Delivery O2 Flow Rate FiO2 12/06/16 11:13 72 12/06/16 11:13 40 12/06/16 11:09 66 19 40 12/06/16 09:34 73 128/79 12/06/16 09:34 73 128/79 12/06/16 09:05 75 20 40 12/06/16 08:00 40 12/06/16 08:00 97.9 73 18 128/79 100 Mechanical Ventilator 40 12/06/16 08:00 84 12/06/16 07:00 72 22 40 12/06/16 05:38 146/88 12/06/16 04:55 75 20 40 12/06/16 04:00 75 12/06/16 04:00 40 12/06/16 04:00 98.2 72 20 127/78 100 Mechanical Ventilator 40 12/06/16 03:22 77 21 40 12/06/16 01:17 69 23 40 12/06/16 00:00 97.4 67 20 127/60 100 Mechanical Ventilator 40 12/06/16 00:00 40 12/06/16 00:00 64 12/05/16 23:15 66 18 40 12/05/16 22:13 138/84 12/05/16 21:05 81 124/76 12/05/16 20:58 85 27 40 12/05/16 20:00 97.1 81 24 124/76 100 Mechanical Ventilator 40 12/05/16 20:00 40 12/05/16 20:00 79 12/05/16 19:37 87 24 40 12/05/16 16:51 80 23 40 12/05/16 16:00 75 12/05/16 16:00 97.5 78 25 122/75 100 Mechanical Ventilator 40 12/05/16 16:00 40 12/05/16 15:20 77 23 40 12/05/16 14:00 110/65 12/05/16 13:16 72 20 40 12/05/16 12:00 97.7 75 28 120/63 99 Mechanical Ventilator 40 Intake and Output 12/05/16 12/06/16 19:00 07:00 Intake Total 700 ml 780 ml Output Total 550 ml 600 ml Balance 150 ml 180 ml Intake Free Water 100 ml 180 ml Tube Feeding 600 ml 600 ml Output Urine Total 550 ml 600 ml General Appearance: WD/WN, no acute distress HEENT: normocephalic, atraumatic Respiratory/Chest: chest wall non-tender, lungs clear Cardiovascular: normal peripheral pulses, normal rate Abdomen: normal bowel sounds, no organomegaly Genitourinary: normal external genitalia Extremities: no clubbing Skin: no lesions Neurologic/Psychiatric: no motor/sensory deficits, alert, normal mood/affect Laboratory Tests 12/06/16 04:00: White Blood Count 11.4H, Red Blood Count 3.97L, Hemoglobin 10.2L, Hematocrit 32.4L, Mean Corpuscular Volume 82, Mean Corpuscular Hemoglobin 25.8L, Mean Corpuscular Hemoglobin Concent 31.6L, Red Cell Distribution Width 17.9H, Platelet Count 378, Mean Platelet Volume 6.4L, Neutrophils (%) (Auto) 59.7, Lymphocytes (%) (Auto) 29.1, Monocytes (%) (Auto) 6.5, Eosinophils (%) (Auto) 4.3H, Basophils (%) (Auto) 0.5, Sodium Level 145, Potassium Level 3.9, Chloride Level 104, Carbon Dioxide Level 30, Anion Gap 11, Blood Urea Nitrogen 37H, Creatinine 1.5H, Estimat Glomerular Filtration Rate , Glucose Level 119H, Calcium Level 9.9, Phosphorus Level 3.2, Magnesium Level 2.2, Total Bilirubin 0.2, Aspartate Amino Transf (AST/SGOT) 26, Alanine Aminotransferase (ALT/SGPT) 21, Alkaline Phosphatase 84, Total Protein 7.7, Albumin 2.9L, Globulin 4.8, Albumin/Globulin Ratio 0.6L Current Medications Medications (Trade) Dose Ordered Sig/Keira Route PRN Reason Start Time Stop Time Status Last Admin Dose Admin Acetaminophen (Tylenol) 650 mg Q4H PRN ORAL fever 12/05/16 06:43 01/04/17 06:42 Albuterol/ Ipratropium (DuoNeb 0.5-3(2.5)mg/3ml) 3 ml Q4H PRN HHN sob 12/05/16 06:45 12/10/16 06:44 Amlodipine Besylate (Norvasc) 10 mg DAILY GT 12/05/16 09:00 01/04/17 08:59 12/06/16 09:34 Chlorhexidine Gluconate (Michelle-Hex 2%) 1 applic QHS TOPIC 12/05/16 21:00 01/04/17 20:59 12/05/16 21:08 Heparin Sodium (Porcine) (Heparin 5000 units/ml) 5,000 units EVERY 12 HOURS SUBQ 12/05/16 09:00 01/04/17 08:59 12/06/16 09:35 Hydralazine HCl (Apresoline) 10 mg Q4H PRN IV SBP > 150 12/05/16 06:44 01/04/17 06:43 Hydralazine HCl (Apresoline) 50 mg Q8HR GT 12/05/16 14:00 01/04/17 13:59 12/06/16 05:38 Hydromorphone HCl (Dilaudid) 0.5 mg Q4H PRN IVP Severe Pain (Pain Scale 7-10) 12/05/16 06:45 12/12/16 06:44 Lansoprazole (Prevacid) 30 mg DAILY GT 12/05/16 09:00 01/04/17 08:59 12/06/16 09:33 Lorazepam (Ativan 2mg/ml 1ml) 2 mg Q4H PRN IV For Anxiety 12/05/16 06:45 12/12/16 06:44 Metoprolol Tartrate (Lopressor) 12.5 mg Q12HR GT 12/05/16 09:00 01/04/17 08:59 12/06/16 09:34 Ondansetron HCl (Zofran) 4 mg Q6H PRN IVP Nausea & Vomiting 12/05/16 06:46 01/04/17 06:45 Polyethylene Glycol (Miralax) 17 gm DAILYPRN PRN GT Constipation 12/05/16 06:46 01/04/17 06:45 Vitamin A/Vitamin D (A & D Oint) 1 applic EVERY 12 HOURS TOPIC 12/05/16 09:00 01/04/17 08:59 12/06/16 09:00 MARY CABELLO Dec 06, 2016 11:53
[2016-12-06 12:00] VITALS: BP 126/74
--- NOTE | 2016-12-06 13:54 | GI Progress Note ---
Assessment/Plan Problems: (1) Feeding by G-tube ICD Codes: Z93.1 - Gastrostomy status SNOMED: 139189886, 037703467 (2) G-tube site cellulitis ICD Codes: K94.22 - Gastrostomy infection; L03.319 - Cellulitis of trunk, unspecified SNOMED: 187098556, 246992576 (3) Anemia ICD Codes: D64.9 - Anemia, unspecified SNOMED: 080460947 (4) Sepsis ICD Codes: A41.9 - Sepsis, unspecified organism SNOMED: 76202942 Status: stable Status Narrative Discussed with Dr. Taveras. Assessment/Plan s/p trach GT site care daily/prn GTFs per dietary, tolerating stable H&H, transfuse prn Prevacid GT abx fu labs Subjective Subjective limited Objective Last 24 Hour Vital Signs Date Time Temp Pulse Resp B/P Pulse Ox O2 Delivery O2 Flow Rate FiO2 12/06/16 12:00 98.1 70 20 126/74 100 Mechanical Ventilator 40 12/06/16 11:13 72 12/06/16 11:13 40 12/06/16 11:09 66 19 40 12/06/16 09:34 73 128/79 12/06/16 09:34 73 128/79 12/06/16 09:05 75 20 40 12/06/16 08:00 40 12/06/16 08:00 97.9 73 18 128/79 100 Mechanical Ventilator 40 12/06/16 08:00 84 12/06/16 07:00 72 22 40 12/06/16 05:38 146/88 12/06/16 04:55 75 20 40 12/06/16 04:00 75 12/06/16 04:00 40 12/06/16 04:00 98.2 72 20 127/78 100 Mechanical Ventilator 40 12/06/16 03:22 77 21 40 12/06/16 01:17 69 23 40 12/06/16 00:00 97.4 67 20 127/60 100 Mechanical Ventilator 40 12/06/16 00:00 40 12/06/16 00:00 64 12/05/16 23:15 66 18 40 12/05/16 22:13 138/84 12/05/16 21:05 81 124/76 12/05/16 20:58 85 27 40 12/05/16 20:00 97.1 81 24 124/76 100 Mechanical Ventilator 40 12/05/16 20:00 40 12/05/16 20:00 79 12/05/16 19:37 87 24 40 12/05/16 16:51 80 23 40 12/05/16 16:00 75 12/05/16 16:00 97.5 78 25 122/75 100 Mechanical Ventilator 40 12/05/16 16:00 40 12/05/16 15:20 77 23 40 12/05/16 14:00 110/65 Intake and Output 12/05/16 12/06/16 19:00 07:00 Intake Total 700 ml 780 ml Output Total 550 ml 600 ml Balance 150 ml 180 ml Intake Free Water 100 ml 180 ml Tube Feeding 600 ml 600 ml Output Urine Total 550 ml 600 ml Laboratory Tests Test 12/06/16 04:00 White Blood Count 11.4 K/UL (4.8-10.8) H Red Blood Count 3.97 M/UL (4.70-6.10) L Hemoglobin 10.2 G/DL (14.2-18.0) L Hematocrit 32.4 % (42.0-52.0) L Mean Corpuscular Volume 82 FL (80-99) Mean Corpuscular Hemoglobin 25.8 PG (27.0-31.0) L Mean Corpuscular Hemoglobin Concent 31.6 G/DL (32.0-36.0) L Red Cell Distribution Width 17.9 % (11.6-14.8) H Platelet Count 378 K/UL (150-450) Mean Platelet Volume 6.4 FL (6.5-10.1) L Neutrophils (%) (Auto) 59.7 % (45.0-75.0) Lymphocytes (%) (Auto) 29.1 % (20.0-45.0) Monocytes (%) (Auto) 6.5 % (1.0-10.0) Eosinophils (%) (Auto) 4.3 % (0.0-3.0) H Basophils (%) (Auto) 0.5 % (0.0-2.0) Sodium Level 145 mEQ/L (135-145) Potassium Level 3.9 mEQ/L (3.4-4.9) Chloride Level 104 mEQ/L (98-107) Carbon Dioxide Level 30 mEQ/L (20-30) Anion Gap 11 (5-15) Blood Urea Nitrogen 37 mg/dL (7-23) H Creatinine 1.5 mg/dL (0.7-1.2) H Estimat Glomerular Filtration Rate mL/min (>60) Glucose Level 119 mg/dL (74-106) H Calcium Level 9.9 mg/dL (8.6-10.2) Phosphorus Level 3.2 mg/dL (2.5-4.8) Magnesium Level 2.2 mg/dL (1.7-2.5) Total Bilirubin 0.2 mg/dL (0.0-1.2) Aspartate Amino Transf (AST/SGOT) 26 U/L (5-40) Alanine Aminotransferase (ALT/SGPT) 21 U/L (3-41) Alkaline Phosphatase 84 U/L (40-129) Total Protein 7.7 g/dL (6.6-8.7) Albumin 2.9 g/dL (3.5-5.2) L Globulin 4.8 g/dL Albumin/Globulin Ratio 0.6 (1.0-2.7) L Height (Feet): 6 Height (Inches): 1.00 Weight (Pounds): 180 General Appearance: alert Cardiovascular: normal rate Respiratory/Chest: other - mech vent Abdominal Exam: GT site - c/d/i Delfina Francois N.P. Dec 06, 2016 13:54
--- NOTE | 2016-12-06 14:02 | General Progress Note ---
Assessment/Plan Problem List: (1) Sepsis ICD Codes: A41.9 - Sepsis, unspecified organism SNOMED: 53596532 (2) Septic shock ICD Codes: A41.9 - Sepsis, unspecified organism; R65.21 - Severe sepsis with septic shock SNOMED: 15117540 (3) Renal failure ICD Codes: N19 - Unspecified kidney failure SNOMED: 13357890 Qualifiers: Qualified Codes: N17.9 - Acute kidney failure, unspecified (4) Respiratory distress ICD Codes: R06.00 - Dyspnea, unspecified SNOMED: 163367121 (5) Pneumonia ICD Codes: J18.9 - Pneumonia, unspecified organism SNOMED: 607804095 (6) UTI (urinary tract infection) ICD Codes: N39.0 - Urinary tract infection, site not specified SNOMED: 50404414 Status: stable, progressing, tolerating diet Assessment/Plan vent abx cbc bmp am, naima ltach transfer Subjective Constitutional: Reports: weakness Allergies: Coded Allergies: No Known Allergies (Verified , 01/02/09) All Systems: reviewed and negative except above Subjective s/p trach vent Objective Last 24 Hour Vital Signs Date Time Temp Pulse Resp B/P Pulse Ox O2 Delivery O2 Flow Rate FiO2 12/06/16 12:00 98.1 70 20 126/74 100 Mechanical Ventilator 40 12/06/16 11:13 72 12/06/16 11:13 40 12/06/16 11:09 66 19 40 12/06/16 09:34 73 128/79 12/06/16 09:34 73 128/79 12/06/16 09:05 75 20 40 12/06/16 08:00 40 12/06/16 08:00 97.9 73 18 128/79 100 Mechanical Ventilator 40 12/06/16 08:00 84 12/06/16 07:00 72 22 40 12/06/16 05:38 146/88 12/06/16 04:55 75 20 40 12/06/16 04:00 75 12/06/16 04:00 40 12/06/16 04:00 98.2 72 20 127/78 100 Mechanical Ventilator 40 12/06/16 03:22 77 21 40 12/06/16 01:17 69 23 40 12/06/16 00:00 97.4 67 20 127/60 100 Mechanical Ventilator 40 12/06/16 00:00 40 12/06/16 00:00 64 12/05/16 23:15 66 18 40 12/05/16 22:13 138/84 12/05/16 21:05 81 124/76 12/05/16 20:58 85 27 40 12/05/16 20:00 97.1 81 24 124/76 100 Mechanical Ventilator 40 12/05/16 20:00 40 12/05/16 20:00 79 12/05/16 19:37 87 24 40 12/05/16 16:51 80 23 40 12/05/16 16:00 75 12/05/16 16:00 97.5 78 25 122/75 100 Mechanical Ventilator 40 12/05/16 16:00 40 12/05/16 15:20 77 23 40 Intake and Output 12/05/16 12/06/16 19:00 07:00 Intake Total 700 ml 780 ml Output Total 550 ml 600 ml Balance 150 ml 180 ml Intake Free Water 100 ml 180 ml Tube Feeding 600 ml 600 ml Output Urine Total 550 ml 600 ml Laboratory Tests 12/06/16 04:00: White Blood Count 11.4H, Red Blood Count 3.97L, Hemoglobin 10.2L, Hematocrit 32.4L, Mean Corpuscular Volume 82, Mean Corpuscular Hemoglobin 25.8L, Mean Corpuscular Hemoglobin Concent 31.6L, Red Cell Distribution Width 17.9H, Platelet Count 378, Mean Platelet Volume 6.4L, Neutrophils (%) (Auto) 59.7, Lymphocytes (%) (Auto) 29.1, Monocytes (%) (Auto) 6.5, Eosinophils (%) (Auto) 4.3H, Basophils (%) (Auto) 0.5, Sodium Level 145, Potassium Level 3.9, Chloride Level 104, Carbon Dioxide Level 30, Anion Gap 11, Blood Urea Nitrogen 37H, Creatinine 1.5H, Estimat Glomerular Filtration Rate , Glucose Level 119H, Calcium Level 9.9, Phosphorus Level 3.2, Magnesium Level 2.2, Total Bilirubin 0.2, Aspartate Amino Transf (AST/SGOT) 26, Alanine Aminotransferase (ALT/SGPT) 21, Alkaline Phosphatase 84, Total Protein 7.7, Albumin 2.9L, Globulin 4.8, Albumin/Globulin Ratio 0.6L Height (Feet): 6 Height (Inches): 1.00 Weight (Pounds): 180 General Appearance: lethargic EENT: normal ENT inspection Neck: normal alignment Cardiovascular: normal peripheral pulses, normal rate, regular rhythm Respiratory/Chest: chest wall non-tender, lungs clear, normal breath sounds Abdomen: normal bowel sounds, non tender, soft Extremities: normal inspection Edema: no edema noted Arm (L), no edema noted Arm (R), no edema noted Leg (L), no edema noted Leg (R), no edema noted Pedal (L), no edema noted Pedal (R), no edema noted Generalized Neurologic: motor weakness Skin: normal pigmentation, warm/dry CASS YANES Dec 06, 2016 14:02
--- NOTE | 2016-12-06 14:53 | Infectious Diseases Prog Note ---
Assessment/Plan Problems: (1) HCAP (healthcare-associated pneumonia) Assessment & Plan: due to MRSA , S/P vancomycin and doxycycline for 14 days , improved (2) Septic shock Assessment & Plan: with proteus mirabilis ESBL + , suspect source is UTI , repeated blood culture to confirm clearance is negative , S/P zosyn for 14 days . EOT 12/02/16 (3) Respiratory distress Assessment & Plan: due to the above, S/P intubation, failed multiple attempts to wean him off , om mechanical ventilation, monitor ABG, titrate oxygen as needed (4) UTI (urinary tract infection) Assessment & Plan: with proteus mirabilis and Providencia stuartii , most likely the source of his sepsis, S/P zosyn for 14 days (5) Renal failure Assessment & Plan: improving, continue hydration, avoid nephrotoxic meds (6) Hydronephrosis of left kidney Assessment & Plan: with hematuria, most likely due to urethral tear , had urology eval , and no intervention needed for now (7) Ventilator dependent Assessment & Plan: S/P tracheostomy , ENT is following, continue local trach care Subjective ROS Limited/Unobtainable: Yes Allergies: Coded Allergies: No Known Allergies (Verified , 01/02/09) Subjective he was doing ok, S/P tracheostomy , alert, off sedation, not in distress, afebrile Objective Vital Signs Last 24 Hour Vital Signs Date Time Temp Pulse Resp B/P Pulse Ox O2 Delivery O2 Flow Rate FiO2 12/06/16 14:00 99/60 12/06/16 13:08 68 22 40 12/06/16 12:00 98.1 70 20 126/74 100 Mechanical Ventilator 40 12/06/16 11:13 72 12/06/16 11:13 40 12/06/16 11:09 66 19 40 12/06/16 09:34 73 128/79 12/06/16 09:34 73 128/79 12/06/16 09:05 75 20 40 12/06/16 08:00 40 12/06/16 08:00 97.9 73 18 128/79 100 Mechanical Ventilator 40 12/06/16 08:00 84 12/06/16 07:00 72 22 40 12/06/16 05:38 146/88 12/06/16 04:55 75 20 40 12/06/16 04:00 75 7/21/17 04:00 40 12/06/16 04:00 98.2 72 20 127/78 100 Mechanical Ventilator 40 12/06/16 03:22 77 21 40 12/06/16 01:17 69 23 40 12/06/16 00:00 97.4 67 20 127/60 100 Mechanical Ventilator 40 12/06/16 00:00 40 12/06/16 00:00 64 12/05/16 23:15 66 18 40 12/05/16 22:13 138/84 12/05/16 21:05 81 124/76 12/05/16 20:58 85 27 40 12/05/16 20:00 97.1 81 24 124/76 100 Mechanical Ventilator 40 12/05/16 20:00 40 12/05/16 20:00 79 12/05/16 19:37 87 24 40 12/05/16 16:51 80 23 40 12/05/16 16:00 75 12/05/16 16:00 97.5 78 25 122/75 100 Mechanical Ventilator 40 12/05/16 16:00 40 12/05/16 15:20 77 23 40 Height (Feet): 6 Height (Inches): 1.00 Weight (Pounds): 180 General Appearance: WD/WN, no acute distress HEENT: normocephalic, atraumatic, anicteric, supple, no JVD, status post trach Respiratory/Chest: chest wall non-tender, lungs clear, normal breath sounds, no respiratory distress, no accessory muscle use Cardiovascular: normal peripheral pulses, normal rate, regular rhythm, no gallop/murmur Abdomen: normal bowel sounds, soft, non tender, no organomegaly, non distended , no mass Extremities: no cyanosis, no clubbing Skin: no rash, no lesions, ulcers Laboratory Tests Test 12/06/16 04:00 White Blood Count 11.4 K/UL (4.8-10.8) H Red Blood Count 3.97 M/UL (4.70-6.10) L Hemoglobin 10.2 G/DL (14.2-18.0) L Hematocrit 32.4 % (42.0-52.0) L Mean Corpuscular Volume 82 FL (80-99) Mean Corpuscular Hemoglobin 25.8 PG (27.0-31.0) L Mean Corpuscular Hemoglobin Concent 31.6 G/DL (32.0-36.0) L Red Cell Distribution Width 17.9 % (11.6-14.8) H Platelet Count 378 K/UL (150-450) Mean Platelet Volume 6.4 FL (6.5-10.1) L Neutrophils (%) (Auto) 59.7 % (45.0-75.0) Lymphocytes (%) (Auto) 29.1 % (20.0-45.0) Monocytes (%) (Auto) 6.5 % (1.0-10.0) Eosinophils (%) (Auto) 4.3 % (0.0-3.0) H Basophils (%) (Auto) 0.5 % (0.0-2.0) Sodium Level 145 mEQ/L (135-145) Potassium Level 3.9 mEQ/L (3.4-4.9) Chloride Level 104 mEQ/L (98-107) Carbon Dioxide Level 30 mEQ/L (20-30) Anion Gap 11 (5-15) Blood Urea Nitrogen 37 mg/dL (7-23) H Creatinine 1.5 mg/dL (0.7-1.2) H Estimat Glomerular Filtration Rate mL/min (>60) Glucose Level 119 mg/dL (74-106) H Calcium Level 9.9 mg/dL (8.6-10.2) Phosphorus Level 3.2 mg/dL (2.5-4.8) Magnesium Level 2.2 mg/dL (1.7-2.5) Total Bilirubin 0.2 mg/dL (0.0-1.2) Aspartate Amino Transf (AST/SGOT) 26 U/L (5-40) Alanine Aminotransferase (ALT/SGPT) 21 U/L (3-41) Alkaline Phosphatase 84 U/L (40-129) Total Protein 7.7 g/dL (6.6-8.7) Albumin 2.9 g/dL (3.5-5.2) L Globulin 4.8 g/dL Albumin/Globulin Ratio 0.6 (1.0-2.7) L Current Medications Medications (Trade) Dose Ordered Sig/Keira Route PRN Reason Start Time Stop Time Status Last Admin Dose Admin Acetaminophen (Tylenol) 650 mg Q4H PRN ORAL fever 12/05/16 06:43 01/04/17 06:42 Albuterol/ Ipratropium (DuoNeb 0.5-3(2.5)mg/3ml) 3 ml Q4H PRN HHN sob 12/05/16 06:45 12/10/16 06:44 Amlodipine Besylate (Norvasc) 10 mg DAILY GT 12/05/16 09:00 01/04/17 08:59 12/06/16 09:34 Chlorhexidine Gluconate (Michelle-Hex 2%) 1 applic QHS TOPIC 12/05/16 21:00 01/04/17 20:59 12/05/16 21:08 Heparin Sodium (Porcine) (Heparin 5000 units/ml) 5,000 units EVERY 12 HOURS SUBQ 12/05/16 09:00 01/04/17 08:59 12/06/16 09:35 Hydralazine HCl (Apresoline) 10 mg Q4H PRN IV SBP > 150 12/05/16 06:44 01/04/17 06:43 Hydralazine HCl (Apresoline) 50 mg Q8HR GT 12/05/16 14:00 01/04/17 13:59 12/06/16 05:38 Hydromorphone HCl (Dilaudid) 0.5 mg Q4H PRN IVP Severe Pain (Pain Scale 7-10) 12/05/16 06:45 12/12/16 06:44 Lansoprazole (Prevacid) 30 mg DAILY GT 12/05/16 09:00 01/04/17 08:59 12/06/16 09:33 Lorazepam (Ativan 2mg/ml 1ml) 2 mg Q4H PRN IV For Anxiety 12/05/16 06:45 12/12/16 06:44 Metoprolol Tartrate (Lopressor) 12.5 mg Q12HR GT 12/05/16 09:00 01/04/17 08:59 12/06/16 09:34 Ondansetron HCl (Zofran) 4 mg Q6H PRN IVP Nausea & Vomiting 12/05/16 06:46 01/04/17 06:45 Polyethylene Glycol (Miralax) 17 gm DAILYPRN PRN GT Constipation 12/05/16 06:46 01/04/17 06:45 Vitamin A/Vitamin D (A & D Oint) 1 applic EVERY 12 HOURS TOPIC 12/05/16 09:00 01/04/17 08:59 12/06/16 09:00 Julianna Trejo M.D. Dec 06, 2016 14:53
--- NOTE | 2016-12-06 15:55 | General Progress Note ---
Assessment/Plan Assessment/Plan (1) Respiratory distress (2) S/p tracheostomy on Ventilator (3) Septic Shock (4) Sacral decubitus ulcer Pt will be continued on Dilaudid. D/w Dr. Rodríguez and he concurred. Subjective Date patient seen: Dec 06, 2016 Time patient seen: 03:15 - pm Allergies: Coded Allergies: No Known Allergies (Verified , 01/02/09) Subjective The patient is continued on vent, through tracheostomy laying in bed at [facility]. No signs of pain or discomfort at this time. Objective Last 24 Hour Vital Signs Date Time Temp Pulse Resp B/P Pulse Ox O2 Delivery O2 Flow Rate FiO2 12/06/16 15:28 70 17 40 12/06/16 14:00 99/60 12/06/16 13:08 68 22 40 12/06/16 12:00 98.1 70 20 126/74 100 Mechanical Ventilator 40 12/06/16 11:13 72 12/06/16 11:13 40 12/06/16 11:09 66 19 40 12/06/16 09:34 73 128/79 12/06/16 09:34 73 128/79 12/06/16 09:05 75 20 40 12/06/16 08:00 40 12/06/16 08:00 97.9 73 18 128/79 100 Mechanical Ventilator 40 12/06/16 08:00 84 12/06/16 07:00 72 22 40 12/06/16 05:38 146/88 12/06/16 04:55 75 20 40 12/06/16 04:00 75 12/06/16 04:00 40 12/06/16 04:00 98.2 72 20 127/78 100 Mechanical Ventilator 40 12/06/16 03:22 77 21 40 12/06/16 01:17 69 23 40 12/06/16 00:00 97.4 67 20 127/60 100 Mechanical Ventilator 40 12/06/16 00:00 40 12/06/16 00:00 64 12/05/16 23:15 66 18 40 12/05/16 22:13 138/84 12/05/16 21:05 81 124/76 12/05/16 20:58 85 27 40 12/05/16 20:00 97.1 81 24 124/76 100 Mechanical Ventilator 40 12/05/16 20:00 40 12/05/16 20:00 79 12/05/16 19:37 87 24 40 12/05/16 16:51 80 23 40 12/05/16 16:00 75 12/05/16 16:00 97.5 78 25 122/75 100 Mechanical Ventilator 40 12/05/16 16:00 40 Intake and Output 12/05/16 12/06/16 19:00 07:00 Intake Total 700 ml 780 ml Output Total 550 ml 600 ml Balance 150 ml 180 ml Intake Free Water 100 ml 180 ml Tube Feeding 600 ml 600 ml Output Urine Total 550 ml 600 ml Laboratory Tests 12/06/16 04:00: White Blood Count 11.4H, Red Blood Count 3.97L, Hemoglobin 10.2L, Hematocrit 32.4L, Mean Corpuscular Volume 82, Mean Corpuscular Hemoglobin 25.8L, Mean Corpuscular Hemoglobin Concent 31.6L, Red Cell Distribution Width 17.9H, Platelet Count 378, Mean Platelet Volume 6.4L, Neutrophils (%) (Auto) 59.7, Lymphocytes (%) (Auto) 29.1, Monocytes (%) (Auto) 6.5, Eosinophils (%) (Auto) 4.3H, Basophils (%) (Auto) 0.5, Sodium Level 145, Potassium Level 3.9, Chloride Level 104, Carbon Dioxide Level 30, Anion Gap 11, Blood Urea Nitrogen 37H, Creatinine 1.5H, Estimat Glomerular Filtration Rate , Glucose Level 119H, Calcium Level 9.9, Phosphorus Level 3.2, Magnesium Level 2.2, Total Bilirubin 0.2, Aspartate Amino Transf (AST/SGOT) 26, Alanine Aminotransferase (ALT/SGPT) 21, Alkaline Phosphatase 84, Total Protein 7.7, Albumin 2.9L, Globulin 4.8, Albumin/Globulin Ratio 0.6L Height (Feet): 6 Height (Inches): 1.00 Weight (Pounds): 180 Objective General Appearance: other - trached Cardiovascular: normal rate, regular rhythm Respiratory/Chest: chest wall non-tender, rhonchi - bilaterally, other - On vent Abdomen: non tender, soft Edema: no edema noted Arm (L), no edema noted Arm (R), no edema noted Leg (L), no edema noted Leg (R), no edema noted Pedal (L), no edema noted Pedal (R) Neurologic: unresponsive ZEDNER,AMMY N. P.A. Dec 06, 2016 15:55
[2016-12-06 16:00] VITALS: BP 128/78
[2016-12-06] MEDS ORDERED: NS 275ml ONE (18:16)
--- NOTE | 2016-12-07 04:30 | Progress Note ---
DATE: 12/06/2016 SUBJECTIVE: The patient remains on ventilator support via tracheostomy. He is in no respiratory distress presently. OBJECTIVE: VITAL SIGNS: Blood pressure 126/74, pulse 70, and respirations 20. Afebrile. Monitored rhythm sinus with rare PACs. LUNGS: Coarse breath sounds. No wheezing. HEART: Regular rhythm and rate. Normal S1 and S2. ABDOMEN: Soft. Feeding tube intact. EXTREMITIES: No edema. LABORATORY DATA: White count 11.4, hemoglobin 10.2. Potassium 3.9, BUN 37, and creatinine 1.5. Albumin 2.9. IMPRESSION: 1. Status post respiratory failure with sepsis and shock. 2. Status post tracheostomy. 3. Protein-calorie malnutrition, improving. 4. Acute on chronic renal failure improved and stabilized. 5. Acute on chronic diastolic congestive heart failure, compensated. 6. Paroxysmal atrial ectopy. PLAN: Stable for subacute facility. Cardiovascular regimen reviewed and updated. Wound prolonged, weaning anticipated. Riki Francois M.D. DR: CHRISTIAN JOB#: [id number] CC:
== END 2016-12-06 18:17 | DRG 4 ==
LOC: EDSEX 11:10 → EDBD 11:10 → EDBEDREQ 11:35 → EMR 11:50 → ICU 12:01 → EDBEDREQ 12:18 → 2W 12-05 00:20
PROC: 06HM33Z Insertion of Infusion Device into Right Femoral Vein, Percutaneous Approach (ICD-10-PCS; principal; 2016-11-14)
PROC: 0BH17EZ Insertion of Endotracheal Airway into Trachea, Via Natural or Artificial Opening (ICD-10-PCS; principal; 2016-11-14)
PROC: 5A1955Z Respiratory Ventilation, Greater than 96 Consecutive Hours (ICD-10-PCS; principal; 2016-11-14)
PROC: 02HV33Z Insertion of Infusion Device into Superior Vena Cava, Percutaneous Approach (ICD-10-PCS; 2016-11-20)
PROC: B548ZZA Ultrasonography of Superior Vena Cava, Guidance (ICD-10-PCS; 2016-11-20)
PROC: 0B110F4 Bypass Trachea to Cutaneous with Tracheostomy Device, Open Approach (ICD-10-PCS; 2016-12-02)
DX: A41.9 Sepsis, unspecified organism (principal); R65.21 Severe sepsis with septic shock; N17.0 Acute kidney failure with tubular necrosis; E43 Unspecified severe protein-calorie malnutrition; I50.33 Acute on chronic diastolic (congestive) heart failure; G93.40 Encephalopathy, unspecified; J15.212 Pneumonia due to Methicillin resistant Staphylococcus aureus; E87.0 Hyperosmolality and hypernatremia; I13.0 Hypertensive heart and chronic kidney disease with heart failure and stage 1 through stage 4 chronic kidney disease, or unspecified chronic kidney disease; I27.2 Other secondary pulmonary hypertension; E83.42 Hypomagnesemia; J96.00 Acute respiratory failure, unspecified whether with hypoxia or hypercapnia; L89.153 Pressure ulcer of sacral region, stage 3; K94.22 Gastrostomy infection; N39.0 Urinary tract infection, site not specified; L03.311 Cellulitis of abdominal wall; N13.30 Unspecified hydronephrosis; Z99.11 Dependence on respirator [ventilator] status; E87.5 Hyperkalemia; N18.9 Chronic kidney disease, unspecified; I25.10 Atherosclerotic heart disease of native coronary artery without angina pectoris; Z95.1 Presence of aortocoronary bypass graft; R31.9 Hematuria, unspecified; G40.909 Epilepsy, unspecified, not intractable, without status epilepticus; Z86.73 Personal history of transient ischemic attack (TIA), and cerebral infarction without residual deficits; Z95.2 Presence of prosthetic heart valve; Z68.23 Body mass index [BMI] 23.0-23.9, adult; E86.1 Hypovolemia; I34.0 Nonrheumatic mitral (valve) insufficiency; I36.1 Nonrheumatic tricuspid (valve) insufficiency
CPT/HCPCS: 31500; 36415; 36569; 36600; 71010; 76775; 76937; 80048; 80053; 80076; 80202; 81003; 82043; 82044; 82248; 82550; 82553; 82570; 82803; 82962; 83605; 83690; 83735; 83880; 84100; 84300; 84484; 85007; 85025; 85610; 85730; 86850; 86900; 86901; 86920; 87040; 87070; 87081; 87086; 87181; 87205; 87324; 89050; 93005; 93306; 93970; 94002; 94003; 94150; 94664; J2250; J3490

== ENCOUNTER 2017-09-19 10:07 | Inpatient (IN) | payer MEDICARE, MEDICAID ==
[2017-09-19] VITALS (19 sets, daily range): BP systolic 76–126; BP diastolic 53–69
[~2017-09-19] VITALS: Ht 172.7 cm; Wt 95.3 kg
[~2017-09-19 10:07] MED LIST changes: +Etomidate 40mg/20ml Inj IV ONE; +HYDRALAZINE HCL25 M1 GT; +LOPRESSOR25 M1 GT; +Zemuron 50mg/5ml Inj IV ONE
[2017-09-19] MEDS ORDERED: Lidocaine 1% MPF 10mg/ml 5ml ONE (10:13)
[2017-09-19] MEDS ORDERED: Piperacillin/Tazobactam 4.5 GM in NS 110 ML IVPB ONE (10:15)
[2017-09-19] MEDS ORDERED: Lidocaine 1% MPF 10mg/ml 5ml INJ ONE (10:15)
[2017-09-19] MEDS ORDERED: Vancomycin 1.5gm/D5W 250ml 325 ML IVPB ONE (10:15)
[2017-09-19] MEDS ORDERED: Albuterol ud Inhalation HHN ONE (10:15)
[2017-09-19] MEDS ORDERED: Ipratropium 0.02% Inh Soln 2.5ml UD HHN ONE (10:15)
[2017-09-19 10:23] LABS: APPEARANCE,URINE SLIGHTLY CLOUDY; BILIRUBIN, URINE NEGATIVE (NEGATIVE); GLUCOSE, URINE (UA) NEGATIVE (NEGATIVE); KETONES,URINE NEGATIVE (NEGATIVE); LEUKOCYTE ESTERASE ,URINE 3+ (NEGATIVE); NITRITE,URINE NEGATIVE (NEGATIVE); PH,URINE 9 (4.5-8.0); PROTEIN,URINE 3+ (NEGATIVE); UROBILINOGEN,URINE NORMAL MG/DL (0.0-1.0)
[2017-09-19 10:24] LABS: BASOPHILS % (AUTO) 0.5 % (0.0-2.0); EOSINOPHILS % (AUTO) 0.7 % (0.0-3.0); HEMATOCRIT 30.6 % (42.0-52.0); MEAN CORPUSCULAR VOLUME 87 FL (80-99); NEUTROPHILS % (AUTO) 79.7 % (45.0-75.0); PLATELET COUNT 322 K/UL (150-450); RED BLOOD COUNT 3.53 M/UL (4.70-6.10); RED CELL DISTRIBUTION WIDTH 17.2 % (11.6-14.8); WHITE BLOOD COUNT 15.4 K/UL (4.8-10.8)
[2017-09-19] MEDS ORDERED: ARGINAID POWDE1 EACH PO (10:33)
[2017-09-19 10:35] LABS: INR 1.1 (0.9-1.1)
[2017-09-19 10:41] LABS: COLOR,URINE YELLOW
[2017-09-19] MEDS ORDERED: BENADRYL25 MG ORAL (10:41)
[2017-09-19] MEDS ORDERED: BISACODYL5 MG RECTAL (10:41)
[2017-09-19] MEDS ORDERED: COREG25 MG GT (10:43)
[2017-09-19] MEDS ORDERED: CATAPRES0.1 MG GT (10:43)
[2017-09-19] MEDS ORDERED: PROSCAR5 MG GT (10:45)
[2017-09-19] MEDS ORDERED: DUONEB 0.5-3(2.53 ML HHN (10:45)
[2017-09-19] MEDS ORDERED: PLAVIX75 MG GT (10:48)
[2017-09-19] MEDS ORDERED: HYDROGEL3000 GM TOPIC (10:48)
[2017-09-19] MEDS ORDERED: ZANTAC150 MG ORAL (10:48)
[2017-09-19] MEDS ORDERED: VITAMIN C500 M1 GT (10:48)
[2017-09-19] MEDS ORDERED: MULTIVITAMINS1 EAC8 GT (10:48)
[2017-09-19] MEDS ORDERED: ZOFRAN4 M3 GT (10:49)
[2017-09-19] MEDS ORDERED: A & D OINT1 APPLI1 TOPIC (10:49)
[2017-09-19 10:51] LABS: ALANINE AMINOTRANSFERASE 95 U/L (12-78); ALBUMIN 1.7 G/DL (3.4-5.0); ALBUMIN/GLOBULIN RATIO 0.3 (1.0-2.7); ALKALINE PHOSPHATASE 153 U/L (46-116); ANION GAP 3 mmol/L (5-15); ASPARTATE AMINO TRANSFERASE 74 U/L (15-37); BILIRUBIN,TOTAL 0.2 MG/DL (0.2-1.0); BLOOD UREA NITROGEN 135 mg/dL (7-18); CALCIUM 8.8 MG/DL (8.5-10.1); CARBON DIOXIDE 37 MMOL/L (21-32); CHLORIDE 111 MMOL/L (98-107); CKMB 2.5 NG/ML (0.0-3.6); CREATININE 3.3 MG/DL (0.55-1.30); SODIUM 153 MMOL/L (136-145)
--- NOTE | 2017-09-19 11:02 | Diagnostic Imaging Report ---
Indication: Cough Technique: XRAY Chest 1v Comparison: 12/04/2016 Findings: Heart size and mediastinal contours are stable allowing for differences in patient positioning and lung volumes. The tracheostomy tube is been removed. An endotracheal tube is noted with its tip below level of clavicles, tip approximately 4 cm above the selin. A right transjugular central line has its tip in the region of the SVC. Patient again noted be status post median sternotomy. There is focal opacity in the right mid/upper lung. There is no pneumothorax. There are degenerative changes of the spine. No acute osseous abnormality seen. Question partially visualized gastrostomy tube. IMPRESSION: Focal dense airspace opacity in the right mid/upper lung most concerning for pneumonia in the setting of cough. Radiographic follow-up to resolution is recommended to exclude the possibility of underlying mass. Satisfactory positioning of endotracheal tube and right transjugular Central line.
[2017-09-19 11:06] LABS: POTASSIUM 6.5 MMOL/L (3.5-5.1)
--- NOTE | 2017-09-19 13:11 | Emergency Room Report ---
History of Present Illness General Chief Complaint: Dyspnea/Respdistress Source: Medical Record, EMS Present Illness HPI Patient has a history of CVA coronary artery disease and tracheostomy. Patient currently resides in a [place] [facility]. Patient appears line is not and laboratory. Patient was noted to have worsening shortness of breath today with central for further evaluation. On arrival patient appeared be critical having agonal breathing no further history is available patient required emergent intubation. All the history was obtained from medical records and from discussion with paramedics. Symptoms noted to be severe to critical. Allergies: Coded Allergies: No Known Allergies (Verified , 01/02/09) Patient History Past Medical History: HTN, CAD, CHF, ulcer, GERD, CVA/TIA, dementia Past Surgical History: CABG, other - G-tube Social History Narrative resides at a [place] [facility] Reviewed Nursing Documentation: PMH: Agreed; PSxH: Agreed Nursing Documentation-PMH Past Medical History: No History, Except For Hx Cardiac Problems: Yes - Hyperlipidemia, NSTEMI, CABG (3 vessel) Hx Hypertension: Yes - long-term use of anticoagulants Hx Gastrointestinal Problems: Yes - dysphagia, G-tube, PUD, GERD Hx Neurological Problems: Yes - Generalized muscle weakness, Vertigo 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, affecting right dominant side Hx Seizures: Yes Review of Systems All Other Systems: limited - Poor mental status Physical Exam Vital Signs Date Time Temp Pulse Resp B/P (MAP) Pulse Ox O2 Delivery O2 Flow Rate FiO2 09/19/17 09:57 66 14 84/47 84 Ambu-Bag 09/19/17 10:30 100 09/19/17 11:00 98.6 98.6 09/19/17 11:30 15.0 Sp02 EP Interpretation: reviewed, normal General Appearance: severe distress Head: atraumatic Eyes: bilateral eye normal inspection ENT: dry mucus membranes Neck: full range of motion, supple Respiratory: respiratory distress, other - Agonal breathing. Respiratory distress being ventil with a mask Cardiovascular #1: normal peripheral pulses Gastrointestinal: soft, other - Slightly distended Musculoskeletal: other - No obvious deformities, contractures Neurologic: other - Unable to assess patient's critical Skin: normal color, no rash Procedures Critical Care Time Critical Care Time Patient had a critical medical condition which untreated could potentially result in life or limb threatening injury. Total critical care time excluding procedures was approximately greater than 65 minutes. Central Line Central Line : Consent: Emergent Central Line Lumen: triple Maximal Sterile Barrier Tech: yes cap, yes mask, yes sterile gown, yes sterile gloves, yes large sterile sheet, yes hand hygiene, yes chlorhexidine prep Central Line Postion: internal jugular (R) Central Line Post Position: sutured, good blood return, position confirmed w / CXR Attempts: One Patient Tolerated: Well Complications: None Intubation Intubation : Consent: Verbal Intubation Method: orotracheal Tube Size (cm): 8.0 Medications: Etomidate, Rocuronium Breath Sounds after Intubation: equal Intubation Complications: no complications Post Intubation Xray: Yes Attempts: One Patient Tolerated: Well Complications: None Medical Decision Making Diagnostic Impression: Primary Impression: Respiratory distress Additional Impressions: Respiratory failure Aspiration pneumonia Hypernatremia Renal failure Hyperkalemia Hypotension Sepsis Septic shock UTI (urinary tract infection) ER Course Patient presents emergency department today with respiratory distress. Differential considerations include pneumonia, bronchitis, COPD, CHF just name a few.Given the severity of the patient's presentation I felt this is a highly complex patient. This patient required extensive workup. Patient in extremis. Patient require emergent intubation. Patient was intubated. Central line was placed on patient's right neck. Patient was given fluids prior sepsis protocol 30 mL/kg bolus. Patient's laboratory workup shows an elevated white blood cell count. Patient's chest ray shows evidence of right-sided pneumonia. Patient blood pressure continued to deteriorate despite fluid boluses therefore patient was started on Levophed drip. Patient also appear to be severely dehydrated which is why patient was given fluids. Patient was started on broad-spectrum IV antibiotics. Case was discussed with patient's primary care physician who came to the emergency department evaluated the patient and admit the patient. Labs Test 09/19/17 10:11 09/19/17 11:30 White Blood Count 15.4 K/UL (4.8-10.8) Red Blood Count 3.53 M/UL (4.70-6.10) Hemoglobin 9.0 G/DL (14.2-18.0) Hematocrit 30.6 % (42.0-52.0) Mean Corpuscular Volume 87 FL (80-99) Mean Corpuscular Hemoglobin 25.5 PG (27.0-31.0) Mean Corpuscular Hemoglobin Concent 29.3 G/DL (32.0-36.0) Red Cell Distribution Width 17.2 % (11.6-14.8) Platelet Count 322 K/UL (150-450) Mean Platelet Volume 7.4 FL (6.5-10.1) Neutrophils (%) (Auto) 79.7 % (45.0-75.0) Lymphocytes (%) (Auto) 13.0 % (20.0-45.0) Monocytes (%) (Auto) 6.0 % (1.0-10.0) Eosinophils (%) (Auto) 0.7 % (0.0-3.0) Basophils (%) (Auto) 0.5 % (0.0-2.0) Prothrombin Time 11.2 SEC (9.30-11.50) Prothromb Time International Ratio 1.1 (0.9-1.1) Activated Partial Thromboplast Time 32 SEC (23-33) Urine Color Yellow Urine Appearance Slightly cloudy Urine pH 9 (4.5-8.0) Urine Specific [place] 1.015 (1.005-1.035) Urine Protein 3+ (NEGATIVE) Urine Glucose (UA) Negative (NEGATIVE) Urine Ketones Negative (NEGATIVE) Urine Occult Blood Negative (NEGATIVE) Urine Nitrite Negative (NEGATIVE) Urine Bilirubin Negative (NEGATIVE) Urine Urobilinogen Normal MG/DL (0.0-1.0) Urine Leukocyte Esterase 3+ (NEGATIVE) Urine RBC 0-2 /HPF (0 - 0) Urine WBC 5-10 /HPF (0 - 0) Urine Squamous Epithelial Cells Occasional /LPF Urine Triple Phosphate Crystals Moderate /LPF (NONE) Urine Bacteria Moderate /HPF (NONE) Urine Yeast Few /HPF (NONE) Sodium Level 153 MMOL/L (136-145) Potassium Level 6.5 MMOL/L (3.5-5.1) Chloride Level 111 MMOL/L (98-107) Carbon Dioxide Level 37 MMOL/L (21-32) Anion Gap 3 mmol/L (5-15) Blood Urea Nitrogen 135 mg/dL (7-18) Creatinine 3.3 MG/DL (0.55-1.30) Estimat Glomerular Filtration Rate mL/min (>60) Glucose Level 458 MG/DL (74-106) Lactic Acid Level 0.80 mmol/L (0.66-2.22) Calcium Level 8.8 MG/DL (8.5-10.1) Total Bilirubin 0.2 MG/DL (0.2-1.0) Aspartate Amino Transf (AST/SGOT) 74 U/L (15-37) Alanine Aminotransferase (ALT/SGPT) 95 U/L (12-78) Alkaline Phosphatase 153 U/L (46-116) Creatine Kinase MB 2.5 NG/ML (0.0-3.6) Troponin I 0.154 ng/mL (0.000-0.056) Pro-B-Type Natriuretic Peptide 5154 pg/mL (0-125) Total Protein 8.2 G/DL (6.4-8.2) Albumin 1.7 G/DL (3.4-5.0) Globulin 6.5 g/dL Albumin/Globulin Ratio 0.3 (1.0-2.7) Lipase 435 U/L (73-393) Arterial Blood pH 7.388 (7.350-7.450) Arterial Blood Partial Pressure CO2 51.4 mmHg (35.0-45.0) Arterial Blood Partial Pressure O2 109.1 mmHg (75.0-100.0) Arterial Blood HCO3 30.3 mmol/L (22.0-26.0) Arterial Blood Oxygen Saturation 97.9 % (92.0-98.0) Arterial Blood Base Excess 4.7 Librado Test Positive EKG Diagnostic Results Rate: normal Rhythm: NSR ST Segments: no acute changes Rhythm Strip Diag. Results EP Interpretation: yes Rate: 77 Rhythm: NSR, no PVC's, no ectopy Chest X-Ray Diagnostic Results Chest X-Ray Diagnostic Results : Chest X-Ray Ordered: Yes # of Views/Limited/Complete: 1 View Indication: Shortness of Breath EP Interpretation: Yes Interpretation: other - ET tube in good position, right-sided infiltrate, internal jugular central line in good position on the Impression: Other - Pneumonia, appropriate placement of ET tube and central line Electronically Signed by: Electronically signed by Jonny Mccall MD Last Vital Signs Date Time Temp Pulse Resp B/P (MAP) Pulse Ox O2 Delivery O2 Flow Rate FiO2 09/19/17 12:44 100.5 73 16 105/68 100 Mechanical Ventilator 15.0 100 100.5 Status: improved Disposition: ADMITTED INPATIENT Condition: Critical Referrals: STACI CHACON (PCP) JONNY MCCALL M.D. September 19, 2017 13:10
--- NOTE | 2017-09-19 14:26 | Pulmonolgy Critical Care Note ---
Critical Care - Asmt/Plan Problems: (1) Respiratory failure (2) Septic shock (3) Aspiration pneumonia (4) Sepsis (5) UTI (urinary tract infection) (6) Renal failure (7) Feeding by G-tube (8) Acute encephalopathy (9) HCAP (healthcare-associated pneumonia) (10) s/p multiple lacunar strokes, old (11) recent L MCA ischemic stroke Respiratory: adjust tidal volume - Decrease TV to 450, monitor respiratory rate , adjust FIO2 - Titrate down to keep SaO2 > 90, keep PEEP at 5, CXR, ABG, other - PRN HHN's Cardiac: continue pressors - Titrate NE to keep MAP > 60, continue to monitor HR/BP, other - F/U repeat ECG/trop, F/U TTE, cardiology evaluation Renal: F/U I&O, keep IV fluid - NS@ 100 for now, check electrolytes, other - Renal evaluation Infectious Disease: continue antibiotics - Vanomycin & Zosyn (D1), F/U Cx's Gastrointestinal: hold feedings, abdominal imaging - ABD U/S, other - Repeat lipase and LFT's, GI evaluation Endocrine: monitor blood sugar, check TSH, continue sliding scale insulin, other - Check cortisol Hematologic: monitor H/H Neurologic: keep patient comfortable Prophylaxis: Protonix, Heparin - SQ Time Spent (Minutes): 70 Notes Reviewed: other - ER Discussed with: nurses, consultants, family member, other - [facility] RECORDS REVIEWED Critical Care - Objective Last 24 Hour Vital Signs Date Time Temp Pulse Resp B/P (MAP) Pulse Ox O2 Delivery O2 Flow Rate FiO2 09/19/17 13:00 99.8 75 10 100/58 100 Mechanical Ventilator 100 99.8 09/19/17 13:00 72 16 100 09/19/17 12:44 100.5 73 16 105/68 100 Mechanical Ventilator 15.0 100 100.5 09/19/17 12:07 105/68 09/19/17 11:52 107/66 09/19/17 11:37 96/66 09/19/17 11:32 95/58 09/19/17 11:30 100 09/19/17 11:30 73 16 100 Mechanical Ventilator 15.0 100 09/19/17 11:27 96/55 09/19/17 11:22 87/65 09/19/17 11:20 100.5 73 16 96/55 100 Mechanical Ventilator 100 100.5 09/19/17 11:00 98.6 64 16 76/53 99 Mechanical Ventilator 100 98.6 09/19/17 10:30 75 17 100 09/19/17 10:30 75 17 Ambu-Bag 100 09/19/17 09:57 66 14 84/47 84 Ambu-Bag Status: obtunded, other - intubated Condition: critical HEENT: atraumatic, normocephalic, other - ETT Neck: other - R IJ DVD Lungs: rhonchi Heart: HR/BP unstable Abdomen: soft, non-tender, active bowel sounds, feeding tube Extremities: no C/C/E Decubiti: location - sacral, scrotal, toes, stage Accucheck: 452 Blood Sugars: BS not controlled - unstageable Critical Care - Subjective ROS Limited/Unobtainable: Yes ICU Day: 1 Intubation Day: 1 Interval Events: 87 M h/o CVA, aphasia, dysphagia S/P GT, anemia, HTN, urinary retention, multiple infections, D/C'd from [facility] 09/05 BIB EMS with SOB and RD, agonal in the ED and emergently intubated now in ICU on NE gtt, CXR with worsening RUL infiltrate.WCt 15.4, 7.38/51/109/30/98, Na 153/K 6.5, BUN/CR 135/3.3, lipase 435. He is currently on AC 16 VC 600 100/5. No hx is obtainable from the patient. Condition: critical IV Access: peripheral - R IJ EKG Rhythm: Sinus Rhythm FI02: 100 Vent Support Breath Rate: 16 Vent Support Mode: AC Vent Tidal Volume: 600 Sputum Amount: Large PEEP: 5.0 PIP: 30 Secretions: Small clear Drips: NE @ 10 mcg CXR: RUL infiltrate ET-Tube: 8.0 ET Position: 24 Labs: Laboratory Tests Test 09/19/17 10:11 09/19/17 11:30 White Blood Count 15.4 K/UL (4.8-10.8) H Red Blood Count 3.53 M/UL (4.70-6.10) L Hemoglobin 9.0 G/DL (14.2-18.0) L Hematocrit 30.6 % (42.0-52.0) L Mean Corpuscular Volume 87 FL (80-99) Mean Corpuscular Hemoglobin 25.5 PG (27.0-31.0) L Mean Corpuscular Hemoglobin Concent 29.3 G/DL (32.0-36.0) L Red Cell Distribution Width 17.2 % (11.6-14.8) H Platelet Count 322 K/UL (150-450) Mean Platelet Volume 7.4 FL (6.5-10.1) Neutrophils (%) (Auto) 79.7 % (45.0-75.0) H Lymphocytes (%) (Auto) 13.0 % (20.0-45.0) L Monocytes (%) (Auto) 6.0 % (1.0-10.0) Eosinophils (%) (Auto) 0.7 % (0.0-3.0) Basophils (%) (Auto) 0.5 % (0.0-2.0) Prothrombin Time 11.2 SEC (9.30-11.50) Prothromb Time International Ratio 1.1 (0.9-1.1) Activated Partial Thromboplast Time 32 SEC (23-33) Urine Color Yellow Urine Appearance Slightly cloudy Urine pH 9 (4.5-8.0) Urine Specific [place] 1.015 (1.005-1.035) Urine Protein 3+ (NEGATIVE) H Urine Glucose (UA) Negative (NEGATIVE) Urine Ketones Negative (NEGATIVE) Urine Occult Blood Negative (NEGATIVE) Urine Nitrite Negative (NEGATIVE) Urine Bilirubin Negative (NEGATIVE) Urine Urobilinogen Normal MG/DL (0.0-1.0) Urine Leukocyte Esterase 3+ (NEGATIVE) H Urine RBC 0-2 /HPF (0 - 0) H Urine WBC 5-10 /HPF (0 - 0) H Urine Squamous Epithelial Cells Occasional /LPF Urine Triple Phosphate Crystals Moderate /LPF (NONE) H Urine Bacteria Moderate /HPF (NONE) H Urine Yeast Few /HPF (NONE) H Sodium Level 153 MMOL/L (136-145) H Potassium Level 6.5 MMOL/L (3.5-5.1) *H Chloride Level 111 MMOL/L (98-107) H Carbon Dioxide Level 37 MMOL/L (21-32) H Anion Gap 3 mmol/L (5-15) L Blood Urea Nitrogen 135 mg/dL (7-18) H Creatinine 3.3 MG/DL (0.55-1.30) H Estimat Glomerular Filtration Rate mL/min (>60) Glucose Level 458 MG/DL (74-106) H Lactic Acid Level 0.80 mmol/L (0.66-2.22) Calcium Level 8.8 MG/DL (8.5-10.1) Total Bilirubin 0.2 MG/DL (0.2-1.0) Aspartate Amino Transf (AST/SGOT) 74 U/L (15-37) H Alanine Aminotransferase (ALT/SGPT) 95 U/L (12-78) H Alkaline Phosphatase 153 U/L (46-116) H Creatine Kinase MB 2.5 NG/ML (0.0-3.6) Troponin I 0.154 ng/mL (0.000-0.056) Pro-B-Type Natriuretic Peptide 5154 pg/mL (0-125) H Total Protein 8.2 G/DL (6.4-8.2) Albumin 1.7 G/DL (3.4-5.0) L Globulin 6.5 g/dL Albumin/Globulin Ratio 0.3 (1.0-2.7) L Lipase 435 U/L (73-393) H Arterial Blood pH 7.388 (7.350-7.450) Arterial Blood Partial Pressure CO2 51.4 mmHg (35.0-45.0) H Arterial Blood Partial Pressure O2 109.1 mmHg (75.0-100.0) H Arterial Blood HCO3 30.3 mmol/L (22.0-26.0) H Arterial Blood Oxygen Saturation 97.9 % (92.0-98.0) Arterial Blood Base Excess 4.7 Librado Test Positive CHRISTINA KIDD M.D. September 19, 2017 14:26
--- NOTE | 2017-09-19 14:41 | Consultation ---
Consult Note Consult Note asked to eval for renal failure and hyperkalemia Chief Complaint: Dyspnea/Respdistress Source: Medical Record, EMS Patient has a history of CVA coronary artery disease and tracheostomy. Patient currently resides in a [facility]ci. Patient appears line is not and laboratory. Patient was noted to have worsening shortness of breath today with central for further evaluation. On arrival patient appeared be critical having agonal breathing no further history is available patient required emergent intubation. All the history was obtained from medical records and from discussion with paramedics. Symptoms noted to be severe to critical. 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 Underlying CKD Component of dehydration, Pre renal state and Hypernatremia Acute respiratory failure, Aspiartion Pneumonia, UTI Septic Shock H/O Multiple Strokes Anemia Elevated Troponin Hyperglycemia PEG Pulm support Hydrate- avoid nephrotoxics Monitor renal parameters Hemodynamic support Per orders ROSE MARY REID September 19, 2017 14:41
[2017-09-19] MEDS ORDERED: Albuterol/Ipratropium 3ml neb HHN PRN (14:45)
[2017-09-19] MEDS ORDERED: Tubing IV Secondary IV ONE (16:33)
[2017-09-19] MEDS: NovoLOG Insulin Flexpen SUBQ SCH ×2 (16:42→21:05)
[2017-09-19 18:33] LABS: HEMATOCRIT 23.1 % (42.0-52.0); MEAN CORPUSCULAR VOLUME 85 FL (80-99); PLATELET COUNT 219 K/UL (150-450); RED BLOOD COUNT 2.71 M/UL (4.70-6.10); RED CELL DISTRIBUTION WIDTH 16.6 % (11.6-14.8); WHITE BLOOD COUNT 11.8 K/UL (4.8-10.8)
--- NOTE | 2017-09-19 18:45 | History and Physical Report ---
DATE OF ADMISSION: 09/19/2017 patient seen in ER TIME OF EXAM: 11:25 a.m. CHIEF COMPLAINT: The patient was [facility] from jail facility for desaturation to 75%. HISTORY OF PRESENT ILLNESS: This is an unfortunate 87-year-old gentleman with a history of CVA with right hemiparesis, organic brain syndrome, coronary artery disease, hypertension, gastric ulcer, dementia who was recently admitted at [facility] from August 26, 2017 to September 04, 2017 initially presented with diastolic heart failure and fluid overload. Today the patient was noted to have desaturation and hypoxemia in the jail, was brought in by paramedics. Upon arrival to the emergency room, the patient was hypotensive with systolic in the 60s. The patient was subsequently intubated. At the present time, the patient is intubated. Daughter at bedside. Per nurse was able to drain 150 ml of possible food kind material suggesting the patient had aspirated at jail. The patient is status post gastrostomy tube in place. No information can be gathered from the patient as the patient currently intubated and has advanced dementia. So far, the patient received three liters of normal saline, now blood pressure is in 90s. The patient was started on vancomycin and Zosyn and Levophed initiated. The patient needed a central line that was placed in the right IJ. ALLERGIES: No known drug allergies. PAST MEDICAL HISTORY: As above. In addition, history of chronic kidney disease stage 2-3. PAST SURGICAL HISTORY: History of ascending aortic aneurysm repair with tissue aortic valve replacement and coronary artery bypass graft. FAMILY HISTORY: Noncontributory. MEDICATIONS: Medications at the jail reviewed at length. Refer to medication reconciliation. SOCIAL HISTORY: The patient quit smoking about 48 years ago. No smoking or alcohol at present time. The patient is in [facility]term [facility] facility. Daughter is the next of kin. REVIEW OF SYSTEMS: Cannot be obtained as the patient is currently intubated. PHYSICAL EXAMINATION: VITAL SIGNS: Blood pressure 74/53, temperature 98.6, pulse 64, respiratory rate 16, O2 saturation 99% this is while the patient is intubated. GENERAL: The patient is intubated on Levophed. Daughter at bedside. HEENT: Eyes closed. NECK: Supple. No JVD. CARDIAC: S1 and S2 normal with systolic ejection murmur at the left sternal border. LUNGS: Right mid and lower crackles. Left lung clear. ABDOMEN: Soft, nontender, nondistended. No guarding. No rebound. There is a gastrostomy tube in place. EXTREMITIES: No edema or cyanosis. Muscle wasting noted. GENITOURINARY: The patient has a chronic Matson catheter. Pedal pulses intact. NEUROLOGIC: The patient is sedated and intubated. LABS ON ADMISSION: Sodium 153, potassium 6.5, chloride 111, bicarb 37, BUN 135, creatinine 3.3, glucose 458. Lactate 0.8. Total bilirubin 0.2, AST 74, ALT 95, alkaline phosphatase is 153. Troponin 0.154. Albumin 1.7. Lipase 435. Chest x-ray reveals focal dense airspace opacity in the right middle and upper lung most concerning for pneumonia in the setting of cough. Radiographic followup resolution is recommended to exclude the possibility of underlying mass, satisfactory position of the endotracheal tube and the right internal jugular central line. A 12-lead EKG dated September 19, 2017 Normal sinus rhythm at 80, poor R-wave progression, nonspecific ST changes, no ST elevation or depression. IMPRESSION: 1. Acute respiratory failure, intubated. 2. Pneumonia likely aspiration pneumonia versus healthcare associated pneumonia. 3. Severe dehydration. 4. Hypernatremia. 5. Hyperkalemia. 6. Acute on chronic renal failure. 7. Uremia due to prerenal. 8. Transaminitis. 9. Elevated lipase. 10. Severe protein-calorie malnutrition. 11. History of chronic CVA with right hemiparesis. 13. History of organic brain disease. 14. History of advanced dementia. 15. Status post gastrostomy tube placement. 16. History of neurogenic bladder/chronic indwelling Matson catheter. 17. Hyperlipidemia. 18. Coronary artery disease. PLAN: 1. The patient will be admitted to the intensive care unit. 2. Aggressive intravenous fluid. 3. Renal and Pulmonary consult. 4. Pulmonary nebulizer. 5. Levophed and pressors for blood pressure control. 6. Trend troponin. 7. DVT and GI prophylaxis. 8. Broad-spectrum antibiotics. 9. Followup cultures. 10. 2D echo. 11. Continue with the Matson catheter. 12. The patient is on NG tube, we can use it for medication for now. 13. Aspiration precaution. 14. Check electrolytes closely and replete as indicated. 15. We will monitor potassium very closely. We will repeat the BMP in next several hours. 16. We will follow the patient's response to above measures. CODE STATUS: Full code. Time spent on evaluation and inclusion of care 75 minutes critical care. Case discussed with emergency room physician at the bedside. Cesario Brewster M.D. DR: John Paul JOB#: [id number] CC: SHIRA
[2017-09-19 18:46] LABS: ALANINE AMINOTRANSFERASE 84 U/L (12-78); ALBUMIN 1.4 G/DL (3.4-5.0); ALBUMIN/GLOBULIN RATIO 0.2 (1.0-2.7); ALKALINE PHOSPHATASE 131 U/L (46-116); ANION GAP 7 mmol/L (5-15); ASPARTATE AMINO TRANSFERASE 64 U/L (15-37); BILIRUBIN,TOTAL 0.2 MG/DL (0.2-1.0); BLOOD UREA NITROGEN 127 mg/dL (7-18); CARBON DIOXIDE 31 MMOL/L (21-32); CHLORIDE 114 MMOL/L (98-107); CREATININE 3.2 MG/DL (0.55-1.30); POTASSIUM 4.8 MMOL/L (3.5-5.1); SODIUM 152 MMOL/L (136-145)
[2017-09-19] MEDS: Albuterol/Ipratropium 3ml neb HHN SCH (20:00)
[2017-09-19] MEDS: Heparin 5000 units/ml inj SUBQ SCH ×2 (21:00→21:06)
[2017-09-19] MEDS: Pantoprazole Inj IVP SCH (21:01)
[2017-09-19] MEDS: Piperacillin/Tazobactam 2.25 GM in D5W 55 ML IVPB SCH (21:46)
[2017-09-20] VITALS (28 sets, daily range): BP systolic 106–137; BP diastolic 45–89
--- NOTE | 2017-09-20 01:15 | Consultation ---
DATE OF CONSULTATION: 09/19/2017 INFECTIOUS DISEASE CONSULTATION CONSULTING PHYSICIAN: Donnell Murray M.D. PRIMARY ATTENDING: Cesario Brewster M.D. REASON FOR CONSULTATION: Sepsis, septic shock, pneumonia, and UTI. HISTORY OF PRESENT ILLNESS: The patient is an 87-year-old male, who is a [facility] resident, admitted today because of shortness of breath. The patient was hypotensive. He was intubated in the ER, transferred to ICU, started on vasopressor. The patient had a fever with maximum temperature of 100.5 degrees. In addition to respiratory failure, he had acute renal failure and hyperkalemia. PAST MEDICAL HISTORY: Significant for coronary artery disease, status post CABG, dementia, hypertension, dysphagia status post G-tube placement, hyperlipidemia, history of CVA,Seizure disorder, and anemia. MEDICATIONS: Getting Zosyn, heparin, Protonix, albuterol, ipratropium inhaler, insulin, sodium chloride, vancomycin, and norepinephrine. ALLERGIES: No known drug allergies. SOCIAL HISTORY: [facility] resident. No history of alcohol, drug abuse, or smoking. REVIEW OF SYSTEMS: Not obtainable. PHYSICAL EXAMINATION: VITAL SIGNS: Temperature 99.8 degrees, pulse 75, and blood pressure 100/58. GENERAL APPEARANCE: Seems to be well developed. HEAD AND NECK: Orally intubated. Has right internal jugular central line. HEART: Normal rate. LUNGS: Clear on ventilator. ABDOMEN: Soft. G-tube feeding. EXTREMITIES: He has no edema. SKIN: Has some skin lesion and ulcers in the genital area. LABORATORY AND DIAGNOSTIC DATA: WBC 15.4, hemoglobin 9, hematocrit 30.6, and platelets is 222. Sodium 153, potassium 6.5, BUN 135, creatinine 3.3, and glucose 458. AST 74, ALT 95, and alkaline phosphatase is 153. BNP was 5154. Lipase 435. Albumin 1.7. UA showed wbc of 5 to 10 and leukocyte esterase is positive. Chest x-ray showed right-sided infiltrate in mid and upper lung. IMPRESSION AND PLAN: Sepsis with septic shock. The patient seems to have pneumonia in the right lung, has pyuria, may have urinary tract infection, has respiratory failure, has acute renal failure with hyperkalemia, has anemia, hyperglycemia, diabetes mellitus, hypertension, and history of coronary artery disease. We will continue with vancomycin and Zosyn. We will follow up the cultures. Atthe end of my exam, I thank, Dr. Brewster, for involving me in the care of this patient. Donnell Murray M.D. DR: Bailee JOB#: [id number] CC: SHIRA
[2017-09-20] MEDS: Albuterol/Ipratropium 3ml neb HHN SCH ×4 (01:28→18:51)
[2017-09-20 05:36] LABS: BASOPHILS % (AUTO) 0.3 % (0.0-2.0); EOSINOPHILS % (AUTO) 1.7 % (0.0-3.0); HEMATOCRIT 27.9 % (42.0-52.0); HEMOGLOBIN 9.5 G/DL (14.2-18.0); LYMPHOCYTES % (AUTO) 18.7 % (20.0-45.0); MEAN CORPUSCULAR VOLUME 85 FL (80-99); MONOCYTES % (AUTO) 7.2 % (1.0-10.0); NEUTROPHILS % (AUTO) 72.1 % (45.0-75.0); PLATELET COUNT 203 K/UL (150-450); RED BLOOD COUNT 3.29 M/UL (4.70-6.10); RED CELL DISTRIBUTION WIDTH 16.6 % (11.6-14.8); WHITE BLOOD COUNT 11.1 K/UL (4.8-10.8)
[2017-09-20] MEDS: Piperacillin/Tazobactam 2.25 GM in D5W 55 ML IVPB SCH ×3 (05:54→21:53)
[2017-09-20] MEDS: NovoLOG Insulin Flexpen SUBQ SCH ×4 (06:08→20:40)
[2017-09-20 06:12] LABS: ALANINE AMINOTRANSFERASE 80 U/L (12-78); ALBUMIN 1.5 G/DL (3.4-5.0); ALBUMIN/GLOBULIN RATIO 0.3 (1.0-2.7); ALKALINE PHOSPHATASE 110 U/L (46-116); ANION GAP 5 mmol/L (5-15); ASPARTATE AMINO TRANSFERASE 64 U/L (15-37); BILIRUBIN,TOTAL 0.3 MG/DL (0.2-1.0); BLOOD UREA NITROGEN 125 mg/dL (7-18); CALCIUM 8.7 MG/DL (8.5-10.1); CARBON DIOXIDE 34 MMOL/L (21-32); CHLORIDE 114 MMOL/L (98-107); CHOLESTEROL < 50 MG/DL (< 200); CREATININE 3.1 MG/DL (0.55-1.30); FERRITIN 145 NG/ML (8-388); HDL CHOLESTEROL 18 MG/DL (40-60); POTASSIUM 4.5 MMOL/L (3.5-5.1); SODIUM 152 MMOL/L (136-145); TRIGLYCERIDES 40 MG/DL (30-150)
[2017-09-20 06:25] LABS: GAMMA GLUTAMYL TRANSPEPTIDASE 49 U/L (5-85); PHOSPHORUS 2.5 MG/DL (2.5-4.9)
[2017-09-20 06:57] LABS: % IRON SATURATION 14 % (15-50); IRON 16 ug/dL (50-175); TOTAL IRON BINDING CAPACITY 118 ug/dL (250-450)
[2017-09-20] MEDS: Heparin 5000 units/ml inj SUBQ SCH ×2 (09:00→20:44)
[2017-09-20] MEDS: Pantoprazole Inj IVP SCH ×2 (09:56→20:39)
--- NOTE | 2017-09-20 10:11 | Nephrology Progress Note ---
Assessment/Plan Problem List: (1) ATN (acute tubular necrosis) (2) Septic shock Assessment Acute Renal failure- ? Underlying CKD Component of dehydration, Pre renal state and Hypernatremia Acute respiratory failure, Aspiartion Pneumonia, UTI Septic Shock H/O Multiple Strokes Anemia Elevated Troponin Hyperglycemia PEG Plan Pulm support Hydrate- avoid nephrotoxics Monitor renal parameters Hemodynamic support IV iron Nitro and asa GT feeding Per orders Subjective ROS Limited/Unobtainable: Yes Objective Objective Last 24 Hour Vital Signs Date Time Temp Pulse Resp B/P (MAP) Pulse Ox O2 Delivery O2 Flow Rate FiO2 09/20/17 08:40 61 16 60 09/20/17 08:00 99.3 61 16 131/72 100 Mechanical Ventilator 70 99.3 09/20/17 08:00 61 09/20/17 07:59 70 09/20/17 07:34 65 16 100 Mechanical Ventilator 70 09/20/17 07:24 62 16 100 Mechanical Ventilator 70 09/20/17 07:21 60 16 70 09/20/17 06:00 60 16 133/69 100 Mechanical Ventilator 80 09/20/17 05:23 63 18 80 09/20/17 05:00 60 16 134/65 100 Mechanical Ventilator 80 09/20/17 04:30 62 16 110/64 100 Mechanical Ventilator 80 09/20/17 04:00 62 09/20/17 04:00 98.7 62 16 135/68 100 Mechanical Ventilator 80 98.7 09/20/17 04:00 80 09/20/17 03:30 61 16 106/81 100 Mechanical Ventilator 80 09/20/17 03:30 64 16 80 09/20/17 03:00 62 16 131/78 100 Mechanical Ventilator 80 09/20/17 02:30 62 17 133/70 99 Mechanical Ventilator 80 09/20/17 02:00 62 16 125/74 100 Mechanical Ventilator 80 09/20/17 01:30 62 17 118/45 100 Mechanical Ventilator 80 09/20/17 01:30 66 16 100 Mechanical Ventilator 09/20/17 01:29 62 16 100 Mechanical Ventilator 09/20/17 01:28 62 16 80 18 01:00 62 16 118/66 100 Mechanical Ventilator 80 09/20/17 00:30 62 16 116/66 100 Mechanical Ventilator 80 09/20/17 00:00 63 09/20/17 00:00 63 16 119/68 100 Mechanical Ventilator 80 5/5/18 00:00 115/66 5/5/18 00:00 80 5//18 23:30 63 16 117/67 100 Mechanical Ventilator 80 5//18 23:25 68 16 80 5//18 23:00 98.7 64 17 111/65 100 Mechanical Ventilator 80 98.7 5//18 23:00 121/101 5//18 22:30 64 16 114/61 100 Mechanical Ventilator 80 5//18 22:00 126/65 5//18 22:00 63 16 126/65 100 Mechanical Ventilator 80 5//18 21:30 66 17 109/64 100 Mechanical Ventilator 80 5//18 21:30 65 16 80 5//18 21:01 101/57 518 21:00 101/57 5//18 21:00 65 16 101/57 100 Mechanical Ventilator 80 5//18 20:30 65 16 97/59 100 Mechanical Ventilator 80 518 20:00 100.0 67 18 96/55 100 Mechanical Ventilator 80 100.0 18 20:00 80 518 20:00 96/55 5//18 20:00 67 5//18 20:00 70 16 100 Mechanical Ventilator 18 20:00 67 16 100 Mechanical Ventilator 518 19:30 65 16 80 5//18 19:30 68 16 93/56 100 Mechanical Ventilator 100 518 19:00 68 16 90/53 100 Mechanical Ventilator 100 18 19:00 93/56 5/18 18:30 68 16 93/55 100 Mechanical Ventilator 100 5//18 18:00 69 16 98/58 100 Mechanical Ventilator 100 5/18 18:00 103/55 5//18 17:17 70 16 100 5/18 17:00 71 16 111/64 100 Mechanical Ventilator 100 518 17:00 111/64 518 16:00 100 18 16:00 99.6 71 16 109/63 100 Mechanical Ventilator 100 99.6 18 16:00 71 18 16:00 111/64 518 15:28 67 16 100 5/18 15:00 117/69 09/19/17 15:00 76 17 117/69 100 Mechanical Ventilator 100 09/19/17 14:00 74 16 96/55 100 Mechanical Ventilator 100 09/19/17 14:00 92/57 09/19/17 13:00 99.8 75 10 100/58 100 Mechanical Ventilator 100 99.8 09/19/17 13:00 96/55 09/19/17 13:00 72 16 100 09/19/17 12:44 100.5 73 16 105/68 100 Mechanical Ventilator 15.0 100 100.5 09/19/17 12:15 72 09/19/17 12:07 105/68 09/19/17 11:52 107/66 09/19/17 11:37 96/66 09/19/17 11:32 95/58 09/19/17 11:30 100 09/19/17 11:30 73 16 100 Mechanical Ventilator 15.0 100 09/19/17 11:27 96/55 09/19/17 11:22 87/65 09/19/17 11:20 100.5 73 16 96/55 100 Mechanical Ventilator 100 100.5 09/19/17 11:00 98.6 64 16 76/53 99 Mechanical Ventilator 100 98.6 09/19/17 10:30 75 17 100 09/19/17 10:30 75 17 Ambu-Bag 100 Intake and Output 09/19/17 09/20/17 19:00 07:00 Intake Total 355.00 ml 1608.75 ml Output Total 295 ml 730 ml Balance 60.00 ml 878.75 ml Intake Oral 0 ml 0 ml IV Total 355.00 ml 1258.75 ml Blood Product 350 ml Output Urine Total 295 ml 730 ml Laboratory Tests 09/19/17 10:11: White Blood Count 15.4H, Red Blood Count 3.53L, Hemoglobin 9.0L, Hematocrit 30.6L, Mean Corpuscular Volume 87, Mean Corpuscular Hemoglobin 25.5L, Mean Corpuscular Hemoglobin Concent 29.3L, Red Cell Distribution Width 17.2H, Platelet Count 322, Mean Platelet Volume 7.4, Neutrophils (%) (Auto) 79.7H, Lymphocytes (%) (Auto) 13.0L, Monocytes (%) (Auto) 6.0, Eosinophils (%) (Auto) 0.7, Basophils (%) (Auto) 0.5, Prothrombin Time 11.2, Prothromb Time International Ratio 1.1, Activated Partial Thromboplast Time 32, Urine Color Yellow, Urine Appearance Slightly cloudy, Urine pH 9, Urine Specific [place] 1.015, Urine Protein 3+H, Urine Glucose (UA) Negative, Urine Ketones Negative, Urine Occult Blood Negative, Urine Nitrite Negative, Urine Bilirubin Negative, Urine Urobilinogen Normal, Urine Leukocyte Esterase 3+H, Urine RBC 0-2H, Urine WBC 5-10H, Urine Squamous Epithelial Cells Occasional, Urine Triple Phosphate Crystals ModerateH, Urine Bacteria ModerateH, Urine Yeast FewH, Sodium Level 153H, Potassium Level 6.5*H, Chloride Level 111H, Carbon Dioxide Level 37H, Anion Gap 3L, Blood Urea Nitrogen 135H, Creatinine 3.3H, Estimat Glomerular Filtration Rate , Glucose Level 458H, Lactic Acid Level 0.80, Calcium Level 8.8 , Total Bilirubin 0.2, Aspartate Amino Transf (AST/SGOT) 74H, Alanine Aminotransferase (ALT/SGPT) 95H, Alkaline Phosphatase 153H, Creatine Kinase MB 2.5, Troponin I 0.154H, C-Reactive Protein, Quantitative > 70.0H, Pro-B-Type Natriuretic Peptide 5154H, Total Protein 8.2, Albumin 1.7L, Globulin 6.5, Albumin/Globulin Ratio 0.3L, Lipase 435H 09/19/17 11:30: Arterial Blood pH 7.388, Arterial Blood Partial Pressure CO2 51.4H, Arterial Blood Partial Pressure O2 109.1H, Arterial Blood HCO3 30.3H, Arterial Blood Oxygen Saturation 97.9, Arterial Blood Base Excess 4.7, Librado Test Positive 09/19/17 14:33: Arterial Blood pH 7.410, Arterial Blood Partial Pressure CO2 49.7H, Arterial Blood Partial Pressure O2 163.9H, Arterial Blood HCO3 31.2H, Arterial Blood Oxygen Saturation 98.8H, Arterial Blood Base Excess 5.9, Librado Test Positive 09/19/17 18:00: White Blood Count 11.8H, Red Blood Count 2.71L, Hemoglobin 7.0L, Hematocrit 23.1L, Mean Corpuscular Volume 85, Mean Corpuscular Hemoglobin 25.7L, Mean Corpuscular Hemoglobin Concent 30.2L, Red Cell Distribution Width 16.6H, Platelet Count 219, Mean Platelet Volume 6.1L, Neutrophils (%) (Auto) , Lymphocytes (%) (Auto) , Monocytes (%) (Auto) , Eosinophils (%) (Auto) , Basophils (%) (Auto) , Sodium Level 152H, Potassium Level 4.8, Chloride Level 114H, Carbon Dioxide Level 31, Anion Gap 7, Blood Urea Nitrogen 127H, Creatinine 3.2H, Estimat Glomerular Filtration Rate , Glucose Level 391H, Lactic Acid Level 2.60H, Calcium Level 8.0L, Total Bilirubin 0.2, Aspartate Amino Transf (AST/SGOT) 64H, Alanine Aminotransferase (ALT/SGPT) 84H, Alkaline Phosphatase 131H, Troponin I 0.175H, Pro-B-Type Natriuretic Peptide 5377H, Total Protein 7.0, Albumin 1.4L, Globulin 5.6, Albumin/Globulin Ratio 0.2L, Lipase 355, Differential Total Cells Counted 100, Neutrophils % (Manual) 70, Lymphocytes % (Manual) 21, Monocytes % (Manual) 5, Eosinophils % (Manual) 2, Basophils % (Manual) 1, Band Neutrophils 1, Platelet Estimate Adequate, Platelet Morphology Normal, Hypochromasia 1+, Anisocytosis 1+, Hemoglobin A1c 5.9 09/20/17 03:45: White Blood Count 11.1H, Red Blood Count 3.29L, Hemoglobin 9.5#L, Hematocrit 27.9L, Mean Corpuscular Volume 85, Mean Corpuscular Hemoglobin 28.9, Mean Corpuscular Hemoglobin Concent 34.1, Red Cell Distribution Width 16.6H, Platelet Count 203, Mean Platelet Volume 6.8, Neutrophils (%) (Auto) 72.1, Lymphocytes (%) (Auto) 18.7L, Monocytes (%) (Auto) 7.2, Eosinophils (%) (Auto) 1.7, Basophils (%) (Auto) 0.3, Sodium Level 152H, Potassium Level 4.5, Chloride Level 114H, Carbon Dioxide Level 34H, Anion Gap 5, Blood Urea Nitrogen 125H, Creatinine 3.1H, Estimat Glomerular Filtration Rate , Glucose Level 134#H, Uric Acid 8.0H, Calcium Level 8.7, Phosphorus Level 2.5, Magnesium Level 3.3H, Iron Level 16L, Total Iron Binding Capacity 118L, Percent Iron Saturation 14L, Unsaturated Iron Binding 102L, Ferritin 145, Total Bilirubin 0.3, Gamma Glutamyl Transpeptidase 49, Aspartate Amino Transf (AST/SGOT) 64H, Alanine Aminotransferase (ALT/SGPT) 80H, Alkaline Phosphatase 110, Troponin I 0.206H, Pro-B-Type Natriuretic Peptide 3975H, Total Protein 7.4, Albumin 1.5L, Globulin 5.9, Albumin/Globulin Ratio 0.3L, Triglycerides Level 40, Cholesterol Level < 50 , LDL Cholesterol 16, HDL Cholesterol 18L, Cholesterol/HDL Ratio 2.8L, Amylase Level 177H, Vitamin B12 Level 1473H, Folate 18.6, Thyroid Stimulating Hormone ( TSH) 3.031, Cortisol AM Sample [Pending], Random Vancomycin Level 21.9 Height (Feet): 5 Height (Inches): 8.00 Weight (Pounds): 197 General Appearance: no apparent distress EENT: other - intubated Cardiovascular: tachycardia Respiratory/Chest: decreased breath sounds Abdomen: distended ROSE MARY REID September 20, 2017 10:11
--- NOTE | 2017-09-20 10:24 | Pulmonology Progress Note ---
Assessment/Plan Assessment/Plan (1) Respiratory failure (2) Septic shock (3) Aspiration pneumonia (4) Sepsis (5) UTI (urinary tract infection) (6) Renal failure (7) Feeding by G-tube (8) Acute encephalopathy (9) HCAP (healthcare-associated pneumonia) (10) s/p multiple lacunar strokes, old (11) recent L MCA ischemic stroke Respiratory: Will begin weaning - Titrate down to keep SaO2 > 90, keep PEEP at 5, CXR, ABG adequate- PRN HHN's Cardiac: off pressors now. Renal: F/U I&O, keep IV fluid - NS@ 100 for now, check electrolytes, other - Renal evaluation Infectious Disease: continue antibiotics - Vanomycin & Zosyn (D2), F/U Cx's Gastrointestinal: hold feedings, abdominal imaging - ABD U/S, other - Repeat lipase and LFT's, GI evaluation Endocrine: monitor blood sugar, check TSH, continue sliding scale insulin, other - Check cortisol Hematologic: monitor H/H Neurologic: keep patient comfortable Prophylaxis: Protonix, Heparin - SQ Discussed with family at bedside as well as RN Subjective Interval Events: No reported events; remains intubated Constitutional: Reports: no symptoms HEENT: Repors: no symptoms Respiratory: Reports: no symptoms Cardiovascular: Reports: no symptoms Gastrointestinal/Abdominal: Reports: no symptoms Genitourinary: Reports: no symptoms Allergies: Coded Allergies: No Known Allergies (Verified , 01/02/09) Objective Last 24 Hour Vital Signs Date Time Temp Pulse Resp B/P (MAP) Pulse Ox O2 Delivery O2 Flow Rate FiO2 09/20/17 10:00 62 16 132/74 100 Mechanical Ventilator 60 09/20/17 09:00 61 16 118/71 100 Mechanical Ventilator 60 09/20/17 08:40 61 16 60 09/20/17 08:00 99.3 61 16 131/72 100 Mechanical Ventilator 70 99.3 09/20/17 08:00 61 09/20/17 07:59 70 09/20/17 07:34 65 16 100 Mechanical Ventilator 70 09/20/17 07:24 62 16 100 Mechanical Ventilator 70 09/20/17 07:21 60 16 70 09/20/17 06:00 60 16 133/69 100 Mechanical Ventilator 80 09/20/17 05:23 63 18 80 5/5/18 05:00 60 16 134/65 100 Mechanical Ventilator 80 5/5/18 04:30 62 16 110/64 100 Mechanical Ventilator 80 5/5/18 04:00 62 5/5/18 04:00 98.7 62 16 135/68 100 Mechanical Ventilator 80 98.7 5/5/18 04:00 80 5/5/18 03:30 61 16 106/81 100 Mechanical Ventilator 80 5/5/18 03:30 64 16 80 5/5/18 03:00 62 16 131/78 100 Mechanical Ventilator 80 5/5/18 02:30 62 17 133/70 99 Mechanical Ventilator 80 5/5/18 02:00 62 16 125/74 100 Mechanical Ventilator 80 5/5/18 01:30 62 17 118/45 100 Mechanical Ventilator 80 5/5/18 01:30 66 16 100 Mechanical Ventilator 5/5/18 01:29 62 16 100 Mechanical Ventilator 5/5/18 01:28 62 16 80 5/5/18 01:00 62 16 118/66 100 Mechanical Ventilator 80 5/5/18 00:30 62 16 116/66 100 Mechanical Ventilator 80 5/5/18 00:00 63 5/5/18 00:00 63 16 119/68 100 Mechanical Ventilator 80 5/5/18 00:00 115/66 5/5/18 00:00 80 5/4/18 23:30 63 16 117/67 100 Mechanical Ventilator 80 5/4/18 23:25 68 16 80 5/4/18 23:00 98.7 64 17 111/65 100 Mechanical Ventilator 80 98.7 5/4/18 23:00 121/101 5/4/18 22:30 64 16 114/61 100 Mechanical Ventilator 80 5/4/18 22:00 126/65 5/4/18 22:00 63 16 126/65 100 Mechanical Ventilator 80 5/4/18 21:30 66 17 109/64 100 Mechanical Ventilator 80 5/4/18 21:30 65 16 80 5/4/18 21:01 101/57 5/4/18 21:00 101/57 5/4/18 21:00 65 16 101/57 100 Mechanical Ventilator 80 5/4/18 20:30 65 16 97/59 100 Mechanical Ventilator 80 5/4/18 20:00 100.0 67 18 96/55 100 Mechanical Ventilator 80 100.0 5/4/18 20:00 80 5/4/18 20:00 96/55 09/19/17 20:00 67 09/19/17 20:00 70 16 100 Mechanical Ventilator 09/19/17 20:00 67 16 100 Mechanical Ventilator 09/19/17 19:30 65 16 80 09/19/17 19:30 68 16 93/56 100 Mechanical Ventilator 100 09/19/17 19:00 68 16 90/53 100 Mechanical Ventilator 100 09/19/17 19:00 93/56 09/19/17 18:30 68 16 93/55 100 Mechanical Ventilator 100 09/19/17 18:00 69 16 98/58 100 Mechanical Ventilator 100 09/19/17 18:00 103/55 09/19/17 17:17 70 16 100 09/19/17 17:00 71 16 111/64 100 Mechanical Ventilator 100 09/19/17 17:00 111/64 09/19/17 16:00 100 09/19/17 16:00 99.6 71 16 109/63 100 Mechanical Ventilator 100 99.6 09/19/17 16:00 71 09/19/17 16:00 111/64 09/19/17 15:28 67 16 100 09/19/17 15:00 117/69 09/19/17 15:00 76 17 117/69 100 Mechanical Ventilator 100 09/19/17 14:00 74 16 96/55 100 Mechanical Ventilator 100 09/19/17 14:00 92/57 09/19/17 13:00 99.8 75 10 100/58 100 Mechanical Ventilator 100 99.8 09/19/17 13:00 96/55 09/19/17 13:00 72 16 100 09/19/17 12:44 100.5 73 16 105/68 100 Mechanical Ventilator 15.0 100 100.5 09/19/17 12:15 72 09/19/17 12:07 105/68 09/19/17 11:52 107/66 09/19/17 11:37 96/66 09/19/17 11:32 95/58 09/19/17 11:30 100 09/19/17 11:30 73 16 100 Mechanical Ventilator 15.0 100 09/19/17 11:27 96/55 09/19/17 11:22 87/65 09/19/17 11:20 100.5 73 16 96/55 100 Mechanical Ventilator 100 100.5 09/19/17 11:00 98.6 64 16 76/53 99 Mechanical Ventilator 100 98.6 09/19/17 10:30 75 17 100 09/19/17 10:30 75 17 Ambu-Bag 100 Intake and Output 09/19/17 09/20/17 19:00 07:00 Intake Total 355.00 ml 1608.75 ml Output Total 295 ml 730 ml Balance 60.00 ml 878.75 ml Intake Oral 0 ml 0 ml IV Total 355.00 ml 1258.75 ml Blood Product 350 ml Output Urine Total 295 ml 730 ml General Appearance: no acute distress HEENT: normocephalic Respiratory/Chest: chest wall non-tender, decreased breath sounds Cardiovascular: normal peripheral pulses, normal rate Abdomen: normal bowel sounds Microbiology Date/Time Source Procedure Growth Status 09/19/17 10:11 Blood Blood Culture - Preliminary Resulted 09/19/17 10:00 Blood Blood Culture - Preliminary Resulted 09/19/17 10:11 Urine,Clean Catch Urine Culture - Preliminary Gram Negative Scott Resulted Laboratory Tests 09/19/17 11:30: Arterial Blood pH 7.388, Arterial Blood Partial Pressure CO2 51.4H, Arterial Blood Partial Pressure O2 109.1H, Arterial Blood HCO3 30.3H, Arterial Blood Oxygen Saturation 97.9, Arterial Blood Base Excess 4.7, Librado Test Positive 09/19/17 14:33: Arterial Blood pH 7.410, Arterial Blood Partial Pressure CO2 49.7H, Arterial Blood Partial Pressure O2 163.9H, Arterial Blood HCO3 31.2H, Arterial Blood Oxygen Saturation 98.8H, Arterial Blood Base Excess 5.9, Librado Test Positive 09/19/17 18:00: White Blood Count 11.8H, Red Blood Count 2.71L, Hemoglobin 7.0L, Hematocrit 23.1L, Mean Corpuscular Volume 85, Mean Corpuscular Hemoglobin 25.7L, Mean Corpuscular Hemoglobin Concent 30.2L, Red Cell Distribution Width 16.6H, Platelet Count 219, Mean Platelet Volume 6.1L, Neutrophils (%) (Auto) , Lymphocytes (%) (Auto) , Monocytes (%) (Auto) , Eosinophils (%) (Auto) , Basophils (%) (Auto) , Differential Total Cells Counted 100, Neutrophils % ( Manual) 70, Lymphocytes % (Manual) 21, Monocytes % (Manual) 5, Eosinophils % ( Manual) 2, Basophils % (Manual) 1, Band Neutrophils 1, Platelet Estimate Adequate, Platelet Morphology Normal, Hypochromasia 1+, Anisocytosis 1+, Sodium Level 152H, Potassium Level 4.8, Chloride Level 114H, Carbon Dioxide Level 31, Anion Gap 7, Blood Urea Nitrogen 127H, Creatinine 3.2H, Estimat Glomerular Filtration Rate , Glucose Level 391H, Hemoglobin A1c 5.9, Lactic Acid Level 2.60H, Calcium Level 8.0L, Total Bilirubin 0.2, Aspartate Amino Transf (AST/SGOT ) 64H, Alanine Aminotransferase (ALT/SGPT) 84H, Alkaline Phosphatase 131H, Troponin I 0.175H, Pro-B-Type Natriuretic Peptide 5377H, Total Protein 7.0, Albumin 1.4L, Globulin 5.6, Albumin/Globulin Ratio 0.2L, Lipase 355 09/20/17 03:45: White Blood Count 11.1H, Red Blood Count 3.29L, Hemoglobin 9.5#L, Hematocrit 27.9L, Mean Corpuscular Volume 85, Mean Corpuscular Hemoglobin 28.9, Mean Corpuscular Hemoglobin Concent 34.1, Red Cell Distribution Width 16.6H, Platelet Count 203, Mean Platelet Volume 6.8, Neutrophils (%) (Auto) 72.1, Lymphocytes (%) (Auto) 18.7L, Monocytes (%) (Auto) 7.2, Eosinophils (%) (Auto) 1.7, Basophils (%) (Auto) 0.3, Sodium Level 152H, Potassium Level 4.5, Chloride Level 114H, Carbon Dioxide Level 34H, Anion Gap 5, Blood Urea Nitrogen 125H, Creatinine 3.1H, Estimat Glomerular Filtration Rate , Glucose Level 134#H, Calcium Level 8.7, Total Bilirubin 0.3, Aspartate Amino Transf (AST/SGOT) 64H, Alanine Aminotransferase (ALT/SGPT) 80H, Alkaline Phosphatase 110, Troponin I 0.206H, Pro-B-Type Natriuretic Peptide 3975H, Total Protein 7.4, Albumin 1.5L, Globulin 5.9, Albumin/Globulin Ratio 0.3L, Uric Acid 8.0H, Phosphorus Level 2.5 , Magnesium Level 3.3H, Iron Level 16L, Total Iron Binding Capacity 118L, Percent Iron Saturation 14L, Unsaturated Iron Binding 102L, Ferritin 145, Gamma Glutamyl Transpeptidase 49, Triglycerides Level 40, Cholesterol Level < 50, LDL Cholesterol 16, HDL Cholesterol 18L, Cholesterol/HDL Ratio 2.8L, Amylase Level 177H, Vitamin B12 Level 1473H, Folate 18.6, Thyroid Stimulating Hormone (TSH) 3.031, Cortisol AM Sample [Pending], Random Vancomycin Level 21.9 Current Medications Medications (Trade) Dose Ordered Sig/Keira Route PRN Reason Start Time Stop Time Status Last Admin Dose Admin Albuterol/ Ipratropium (Albuterol/ Ipratropium) 3 ml Q4H PRN HHN Shortness of Breath 09/19/17 14:45 09/24/17 14:44 Albuterol/ Ipratropium (Albuterol/ Ipratropium) 3 ml Q6HRT HHN 09/19/17 19:00 09/24/17 18:59 09/20/17 07:24 Dextrose 1,000 ml @ 100 mls/hr Q10H IV 09/20/17 09:30 10/20/17 09:29 09/20/17 09:56 Dextrose (Dextrose 50%) 25 ml STAT PRN IV Hypoglycemia 09/19/17 14:15 10/19/17 14:14 Dextrose (Dextrose 50%) 50 ml STAT PRN IV Hypoglycemia 09/19/17 14:15 10/19/17 14:14 Heparin Sodium (Porcine) (Heparin 5000 units/ml) 5,000 units EVERY 12 HOURS SUBQ 09/19/17 21:00 10/19/17 20:59 Insulin Aspart (NovoLOG) BEFORE MEALS AND HS SUBQ 09/19/17 16:30 10/19/17 16:29 09/20/17 06:08 Iron Sucrose 200 mg/Sodium Chloride 120 ml @ 240 mls/hr ONCE IV 09/20/17 21:00 09/20/17 22:00 Metoclopramide HCl (Reglan) 5 mg EVERY 8 HOURS GT 09/20/17 14:00 10/20/17 13:59 Nitroglycerin (Ntg) 1 patch Q24H TDERMAL 09/20/17 10:30 10/20/17 10:29 Norepinephrine Bitartrate 8 mg/ Dextrose 250 ml @ 0 mls/hr Q24H IV 09/19/17 19:45 10/19/17 19:44 09/19/17 21:01 Pantoprazole (Protonix) 40 mg EVERY 12 HOURS IVP 09/19/17 21:00 10/19/17 20:59 09/20/17 09:56 Piperacillin Sod/ Tazobactam Sod 2.25 gm/Dextrose 55 ml @ 110 mls/hr Q8HR IVPB 09/19/17 22:00 09/24/17 21:59 09/20/17 05:54 Vancomycin HCl (Vanco rx to dose) 1 ea DAILY PRN MISC Per rx protocol 09/19/17 14:15 10/19/17 14:14 Vancomycin HCl/ Dextrose 250 ml @ 166.667 mls/hr Q24H IVPB 09/20/17 11:00 09/21/17 12:29 Noman Pierre MD September 20, 2017 10:24
[2017-09-20] MEDS ORDERED: NS Irrig 1000ml ONE (10:36)
[2017-09-20] MEDS ORDERED: 1/2 NS 1000ml IV ONE (10:36)
[2017-09-20] MEDS ORDERED: Tubing IV Secondary IV ONE (10:36)
[2017-09-20] MEDS ORDERED: NS 275ml ONE (10:36)
[2017-09-20] MEDS ORDERED: Vancomycin 1250mg/D5W 250ml IVPB SCH (11:00)
[2017-09-20] MEDS: Nitroglycerin Patch 0.4mg TDERMAL SCH (11:19)
[2017-09-20] MEDS: Metoclopramide 10mg/10ml Liq GT SCH ×2 (13:53→21:53)
--- NOTE | 2017-09-20 15:35 | General Progress Note ---
Assessment/Plan Assessment/Plan Assessment - Anemia - abnormal LFT - Resp failure - Renal failure - Sepsis - CVA / (R) taylor - dysphagia / GT Recommendations - TF - check abd u/s - check OB - transufse PRN - abx - check [facility] records Subjective Allergies: Coded Allergies: No Known Allergies (Verified , 01/02/09) Objective Last 24 Hour Vital Signs Date Time Temp Pulse Resp B/P (MAP) Pulse Ox O2 Delivery O2 Flow Rate FiO2 5 15:00 65 16 120/70 100 Mechanical Ventilator 50 5/18 14:53 64 17 50 5/5/18 14:15 61 16 50 5//18 14:15 50 5//18 14:00 65 19 116/67 100 Mechanical Ventilator 50 5 13:00 62 20 129/74 100 Mechanical Ventilator 50 5//18 13:00 66 16 100 Mechanical Ventilator 50 5/10/03 12:58 63 24 50 5//18 12:50 64 16 100 Mechanical Ventilator 50 5/18 12:00 61 5/18 12:00 50 5//18 12:00 98.9 62 21 129/72 100 Mechanical Ventilator 50 98.9 518 11:19 137/106 5/18 11:00 64 24 137/80 99 Mechanical Ventilator 50 5/18 10:43 50 5/18 10:41 98 5/5/18 10:37 61 12 50 5/5/18 10:00 62 16 132/74 100 Mechanical Ventilator 60 518 09:00 61 16 118/71 100 Mechanical Ventilator 60 5/18 08:40 61 16 60 5/5/18 08:00 99.3 61 16 131/72 100 Mechanical Ventilator 70 99.3 /18 08:00 61 5/5/18 07:59 70 5//18 07:34 65 16 100 Mechanical Ventilator 70 5/5/18 07:24 62 16 100 Mechanical Ventilator 70 5/5/18 07:21 60 16 70 5/5/18 06:00 60 16 133/69 100 Mechanical Ventilator 80 5/5/18 05:23 63 18 80 5/5/18 05:00 60 16 134/65 100 Mechanical Ventilator 80 5/5/18 04:30 62 16 110/64 100 Mechanical Ventilator 80 5/5/18 04:00 62 5/5/18 04:00 98.7 62 16 135/68 100 Mechanical Ventilator 80 98.7 5/5/18 04:00 80 5/5/18 03:30 61 16 106/81 100 Mechanical Ventilator 80 5/5/18 03:30 64 16 80 5/5/18 03:00 62 16 131/78 100 Mechanical Ventilator 80 5/5/18 02:30 62 17 133/70 99 Mechanical Ventilator 80 5/5/18 02:00 62 16 125/74 100 Mechanical Ventilator 80 5/5/18 01:30 62 17 118/45 100 Mechanical Ventilator 80 5/5/18 01:30 66 16 100 Mechanical Ventilator 5/5/18 01:29 62 16 100 Mechanical Ventilator 5/5/18 01:28 62 16 80 5/5/18 01:00 62 16 118/66 100 Mechanical Ventilator 80 5/5/18 00:30 62 16 116/66 100 Mechanical Ventilator 80 5/5/18 00:00 63 5/5/18 00:00 63 16 119/68 100 Mechanical Ventilator 80 5/5/18 00:00 115/66 5/5/18 00:00 80 5/4/18 23:30 63 16 117/67 100 Mechanical Ventilator 80 5/4/18 23:25 68 16 80 5/4/18 23:00 98.7 64 17 111/65 100 Mechanical Ventilator 80 98.7 5/4/18 23:00 121/101 5/4/18 22:30 64 16 114/61 100 Mechanical Ventilator 80 5/4/18 22:00 126/65 5/4/18 22:00 63 16 126/65 100 Mechanical Ventilator 80 5/4/18 21:30 66 17 109/64 100 Mechanical Ventilator 80 5/4/18 21:30 65 16 80 5/4/18 21:01 101/57 5/4/18 21:00 101/57 5/4/18 21:00 65 16 101/57 100 Mechanical Ventilator 80 5/4/18 20:30 65 16 97/59 100 Mechanical Ventilator 80 5/4/18 20:00 100.0 67 18 96/55 100 Mechanical Ventilator 80 100.0 5/4/18 20:00 80 5/4/18 20:00 96/55 5/4/18 20:00 67 5/4/18 20:00 70 16 100 Mechanical Ventilator 09/19/17 20:00 67 16 100 Mechanical Ventilator 09/19/17 19:30 65 16 80 09/19/17 19:30 68 16 93/56 100 Mechanical Ventilator 100 09/19/17 19:00 68 16 90/53 100 Mechanical Ventilator 100 09/19/17 19:00 93/56 09/19/17 18:30 68 16 93/55 100 Mechanical Ventilator 100 09/19/17 18:00 69 16 98/58 100 Mechanical Ventilator 100 09/19/17 18:00 103/55 09/19/17 17:17 70 16 100 09/19/17 17:00 71 16 111/64 100 Mechanical Ventilator 100 09/19/17 17:00 111/64 09/19/17 16:00 100 09/19/17 16:00 99.6 71 16 109/63 100 Mechanical Ventilator 100 99.6 09/19/17 16:00 71 09/19/17 16:00 111/64 Intake and Output 09/19/17 09/20/17 19:00 07:00 Intake Total 355.00 ml 1608.75 ml Output Total 295 ml 730 ml Balance 60.00 ml 878.75 ml Intake Oral 0 ml 0 ml IV Total 355.00 ml 1258.75 ml Blood Product 350 ml Output Urine Total 295 ml 730 ml Laboratory Tests 09/19/17 18:00: White Blood Count 11.8H, Red Blood Count 2.71L, Hemoglobin 7.0L, Hematocrit 23.1L, Mean Corpuscular Volume 85, Mean Corpuscular Hemoglobin 25.7L, Mean Corpuscular Hemoglobin Concent 30.2L, Red Cell Distribution Width 16.6H, Platelet Count 219, Mean Platelet Volume 6.1L, Neutrophils (%) (Auto) , Lymphocytes (%) (Auto) , Monocytes (%) (Auto) , Eosinophils (%) (Auto) , Basophils (%) (Auto) , Differential Total Cells Counted 100, Neutrophils % ( Manual) 70, Lymphocytes % (Manual) 21, Monocytes % (Manual) 5, Eosinophils % ( Manual) 2, Basophils % (Manual) 1, Band Neutrophils 1, Platelet Estimate Adequate, Platelet Morphology Normal, Hypochromasia 1+, Anisocytosis 1+, Sodium Level 152H, Potassium Level 4.8, Chloride Level 114H, Carbon Dioxide Level 31, Anion Gap 7, Blood Urea Nitrogen 127H, Creatinine 3.2H, Estimat Glomerular Filtration Rate , Glucose Level 391H, Hemoglobin A1c 5.9, Lactic Acid Level 2.60H, Calcium Level 8.0L, Total Bilirubin 0.2, Aspartate Amino Transf (AST/SGOT ) 64H, Alanine Aminotransferase (ALT/SGPT) 84H, Alkaline Phosphatase 131H, Troponin I 0.175H, Pro-B-Type Natriuretic Peptide 5377H, Total Protein 7.0, Albumin 1.4L, Globulin 5.6, Albumin/Globulin Ratio 0.2L, Lipase 355 09/20/17 03:45: White Blood Count 11.1H, Red Blood Count 3.29L, Hemoglobin 9.5#L, Hematocrit 27.9L, Mean Corpuscular Volume 85, Mean Corpuscular Hemoglobin 28.9, Mean Corpuscular Hemoglobin Concent 34.1, Red Cell Distribution Width 16.6H, Platelet Count 203, Mean Platelet Volume 6.8, Neutrophils (%) (Auto) 72.1, Lymphocytes (%) (Auto) 18.7L, Monocytes (%) (Auto) 7.2, Eosinophils (%) (Auto) 1.7, Basophils (%) (Auto) 0.3, Sodium Level 152H, Potassium Level 4.5, Chloride Level 114H, Carbon Dioxide Level 34H, Anion Gap 5, Blood Urea Nitrogen 125H, Creatinine 3.1H, Estimat Glomerular Filtration Rate , Glucose Level 134#H, Calcium Level 8.7, Total Bilirubin 0.3, Aspartate Amino Transf (AST/SGOT) 64H, Alanine Aminotransferase (ALT/SGPT) 80H, Alkaline Phosphatase 110, Troponin I 0.206H, Pro-B-Type Natriuretic Peptide 3975H, Total Protein 7.4, Albumin 1.5L, Globulin 5.9, Albumin/Globulin Ratio 0.3L, Uric Acid 8.0H, Phosphorus Level 2.5 , Magnesium Level 3.3H, Iron Level 16L, Total Iron Binding Capacity 118L, Percent Iron Saturation 14L, Unsaturated Iron Binding 102L, Ferritin 145, Gamma Glutamyl Transpeptidase 49, Triglycerides Level 40, Cholesterol Level < 50, LDL Cholesterol 16, HDL Cholesterol 18L, Cholesterol/HDL Ratio 2.8L, Amylase Level 177H, Vitamin B12 Level 1473H, Folate 18.6, Thyroid Stimulating Hormone (TSH) 3.031, Cortisol AM Sample [Pending], Random Vancomycin Level 21.9 09/20/17 11:43: Arterial Blood pH 7.456H, Arterial Blood Partial Pressure CO2 46.6H, Arterial Blood Partial Pressure O2 83.7, Arterial Blood HCO3 32.1H, Arterial Blood Oxygen Saturation 96.0, Arterial Blood Base Excess 7.4, Librado Test Positive 09/20/17 14:00: Urine Random Sodium 13L Height (Feet): 5 Height (Inches): 8.00 Weight (Pounds): 197 LISANDRA PALMA September 20, 2017 15:35
--- NOTE | 2017-09-20 16:45 | Infectious Diseases Prog Note ---
Assessment/Plan Assessment/Plan A: Sepsis/septic shock off pressors Bacteremia Pneumonia UTI Respiratory failure ATN DM P: Continue Vancomycin & Zosyn will f/u cultures Subjective ROS Limited/Unobtainable: Yes Constitutional: Reports: other - afebrile Cardiovascular: Reports: other - off pressor Neurologic: Reports: confusion, other - on restraint Allergies: Coded Allergies: No Known Allergies (Verified , 01/02/09) Objective Vital Signs Last 24 Hour Vital Signs Date Time Temp Pulse Resp B/P (MAP) Pulse Ox O2 Delivery O2 Flow Rate FiO2 09/20/17 15:00 65 16 120/70 100 Mechanical Ventilator 50 09/20/17 14:53 64 17 50 09/20/17 14:15 61 16 50 09/20/17 14:15 50 09/20/17 14:00 65 19 116/67 100 Mechanical Ventilator 50 09/20/17 13:00 62 20 129/74 100 Mechanical Ventilator 50 09/20/17 13:00 66 16 100 Mechanical Ventilator 50 09/20/17 12:58 63 24 50 09/20/17 12:50 64 16 100 Mechanical Ventilator 50 09/20/17 12:00 61 09/20/17 12:00 50 09/20/17 12:00 98.9 62 21 129/72 100 Mechanical Ventilator 50 98.9 09/20/17 11:19 137/106 09/20/17 11:00 64 24 137/80 99 Mechanical Ventilator 50 09/20/17 10:43 50 09/20/17 10:41 98 09/20/17 10:37 61 12 50 09/20/17 10:00 62 16 132/74 100 Mechanical Ventilator 60 09/20/17 09:00 61 16 118/71 100 Mechanical Ventilator 60 09/20/17 08:40 61 16 60 /10/03 08:00 99.3 61 16 131/72 100 Mechanical Ventilator 70 99.3 09/20/17 08:00 61 09/20/17 07:59 70 09/20/17 07:34 65 16 100 Mechanical Ventilator 70 09/20/17 07:24 62 16 100 Mechanical Ventilator 70 /10/03 07:21 60 16 70 /10/03 06:00 60 16 133/69 100 Mechanical Ventilator 80 09/20/17 05:23 63 18 80 5 05:00 60 16 134/65 100 Mechanical Ventilator 80 5/5/18 04:30 62 16 110/64 100 Mechanical Ventilator 80 5/5/18 04:00 62 5/5/18 04:00 98.7 62 16 135/68 100 Mechanical Ventilator 80 98.7 5/5/18 04:00 80 5/5/18 03:30 61 16 106/81 100 Mechanical Ventilator 80 5/5/18 03:30 64 16 80 5/5/18 03:00 62 16 131/78 100 Mechanical Ventilator 80 5/5/18 02:30 62 17 133/70 99 Mechanical Ventilator 80 5/5/18 02:00 62 16 125/74 100 Mechanical Ventilator 80 5/5/18 01:30 62 17 118/45 100 Mechanical Ventilator 80 5/5/18 01:30 66 16 100 Mechanical Ventilator 5/5/18 01:29 62 16 100 Mechanical Ventilator 5/5/18 01:28 62 16 80 5/5/18 01:00 62 16 118/66 100 Mechanical Ventilator 80 5/5/18 00:30 62 16 116/66 100 Mechanical Ventilator 80 5/5/18 00:00 63 5/5/18 00:00 63 16 119/68 100 Mechanical Ventilator 80 5/5/18 00:00 115/66 5/5/18 00:00 80 5/4/18 23:30 63 16 117/67 100 Mechanical Ventilator 80 5/4/18 23:25 68 16 80 5/4/18 23:00 98.7 64 17 111/65 100 Mechanical Ventilator 80 98.7 5/4/18 23:00 121/101 5/4/18 22:30 64 16 114/61 100 Mechanical Ventilator 80 5/4/18 22:00 126/65 5/4/18 22:00 63 16 126/65 100 Mechanical Ventilator 80 5/4/18 21:30 66 17 109/64 100 Mechanical Ventilator 80 5/4/18 21:30 65 16 80 5/4/18 21:01 101/57 5/4/18 21:00 101/57 5/4/18 21:00 65 16 101/57 100 Mechanical Ventilator 80 5/4/18 20:30 65 16 97/59 100 Mechanical Ventilator 80 5/4/18 20:00 100.0 67 18 96/55 100 Mechanical Ventilator 80 100.0 5/4/18 20:00 80 5/4/18 20:00 96/55 09/19/17 20:00 67 09/19/17 20:00 70 16 100 Mechanical Ventilator 09/19/17 20:00 67 16 100 Mechanical Ventilator 09/19/17 19:30 65 16 80 09/19/17 19:30 68 16 93/56 100 Mechanical Ventilator 100 09/19/17 19:00 68 16 90/53 100 Mechanical Ventilator 100 09/19/17 19:00 93/56 09/19/17 18:30 68 16 93/55 100 Mechanical Ventilator 100 09/19/17 18:00 69 16 98/58 100 Mechanical Ventilator 100 09/19/17 18:00 103/55 09/19/17 17:17 70 16 100 09/19/17 17:00 71 16 111/64 100 Mechanical Ventilator 100 09/19/17 17:00 111/64 Height (Feet): 5 Height (Inches): 8.00 Weight (Pounds): 197 HEENT: other - orally intubated Respiratory/Chest: other - coarse sounds on ventilator Cardiovascular: normal rate, other - RIJ central line Abdomen: soft, non tender, other - GT feeding Extremities: no edema Neurologic/Psychiatric: other - confused Microbiology Date/Time Source Procedure Growth Status 09/19/17 10:11 Blood Blood Culture - Preliminary Resulted 09/19/17 10:00 Blood Blood Culture - Preliminary Resulted 09/19/17 10:11 Urine,Clean Catch Urine Culture - Preliminary Gram Negative Scott Resulted Laboratory Tests Test 09/19/17 18:00 09/20/17 03:45 09/20/17 11:43 09/20/17 14:00 White Blood Count 11.8 K/UL (4.8-10.8) H 11.1 K/UL (4.8-10.8) H Red Blood Count 2.71 M/UL (4.70-6.10) L 3.29 M/UL (4.70-6.10) L Hemoglobin 7.0 G/DL (14.2-18.0) L 9.5 G/DL (14.2-18.0) #L Hematocrit 23.1 % (42.0-52.0) L 27.9 % (42.0-52.0) L Mean Corpuscular Volume 85 FL (80-99) 85 FL (80-99) Mean Corpuscular Hemoglobin 25.7 PG (27.0-31.0) L 28.9 PG (27.0-31.0) Mean Corpuscular Hemoglobin Concent 30.2 G/DL (32.0-36.0) L 34.1 G/DL (32.0-36.0) Red Cell Distribution Width 16.6 % (11.6-14.8) H 16.6 % (11.6-14.8) H Platelet Count 219 K/UL (150-450) 203 K/UL (150-450) Mean Platelet Volume 6.1 FL (6.5-10.1) L 6.8 FL (6.5-10.1) Neutrophils (%) (Auto) % (45.0-75.0) 72.1 % (45.0-75.0) Lymphocytes (%) (Auto) % (20.0-45.0) 18.7 % (20.0-45.0) L Monocytes (%) (Auto) % (1.0-10.0) 7.2 % (1.0-10.0) Eosinophils (%) (Auto) % (0.0-3.0) 1.7 % (0.0-3.0) Basophils (%) (Auto) % (0.0-2.0) 0.3 % (0.0-2.0) Differential Total Cells Counted 100 Neutrophils % (Manual) 70 % (45-75) Lymphocytes % (Manual) 21 % (20-45) Monocytes % (Manual) 5 % (1-10) Eosinophils % (Manual) 2 % (0-3) Basophils % (Manual) 1 % (0-2) Band Neutrophils 1 % (0-8) Platelet Estimate Adequate Platelet Morphology Normal Hypochromasia 1+ Anisocytosis 1+ Sodium Level 152 MMOL/L (136-145) H 152 MMOL/L (136-145) H Potassium Level 4.8 MMOL/L (3.5-5.1) 4.5 MMOL/L (3.5-5.1) Chloride Level 114 MMOL/L (98-107) H 114 MMOL/L (98-107) H Carbon Dioxide Level 31 MMOL/L (21-32) 34 MMOL/L (21-32) H Anion Gap 7 mmol/L (5-15) 5 mmol/L (5-15) Blood Urea Nitrogen 127 mg/dL (7-18) H 125 mg/dL (7-18) H Creatinine 3.2 MG/DL (0.55-1.30) H 3.1 MG/DL (0.55-1.30) H Estimat Glomerular Filtration Rate mL/min (>60) mL/min (>60) Glucose Level 391 MG/DL (74-106) H 134 MG/DL (74-106) #H Hemoglobin A1c 5.9 % (4.3-6.0) Lactic Acid Level 2.60 mmol/L (0.66-2.22) H Calcium Level 8.0 MG/DL (8.5-10.1) L 8.7 MG/DL (8.5-10.1) Total Bilirubin 0.2 MG/DL (0.2-1.0) 0.3 MG/DL (0.2-1.0) Aspartate Amino Transf (AST/SGOT) 64 U/L (15-37) H 64 U/L (15-37) H Alanine Aminotransferase (ALT/SGPT) 84 U/L (12-78) H 80 U/L (12-78) H Alkaline Phosphatase 131 U/L (46-116) H 110 U/L (46-116) Troponin I 0.175 ng/mL (0.000-0.056) 0.206 ng/mL (0.000-0.056) Pro-B-Type Natriuretic Peptide 5377 pg/mL (0-125) H 3975 pg/mL (0-125) H Total Protein 7.0 G/DL (6.4-8.2) 7.4 G/DL (6.4-8.2) Albumin 1.4 G/DL (3.4-5.0) L 1.5 G/DL (3.4-5.0) L Globulin 5.6 g/dL 5.9 g/dL Albumin/Globulin Ratio 0.2 (1.0-2.7) L 0.3 (1.0-2.7) L Lipase 355 U/L (73-393) Uric Acid 8.0 MG/DL (2.6-7.2) H Phosphorus Level 2.5 MG/DL (2.5-4.9) Magnesium Level 3.3 MG/DL (1.8-2.4) H Iron Level 16 ug/dL (50-175) L Total Iron Binding Capacity 118 ug/dL (250-450) L Percent Iron Saturation 14 % (15-50) L Unsaturated Iron Binding 102 ug/dL (112-346) L Ferritin 145 NG/ML (8-388) Gamma Glutamyl Transpeptidase 49 U/L (5-85) Triglycerides Level 40 MG/DL (30-150) Cholesterol Level < 50 MG/DL (< 200) LDL Cholesterol 16 mg/dL (<100) HDL Cholesterol 18 MG/DL (40-60) L Cholesterol/HDL Ratio 2.8 (3.3-4.4) L Amylase Level 177 U/L (25-115) H Vitamin B12 Level 1473 PG/ML (193-986) H Folate 18.6 NG/ML (8.6-58.9) Thyroid Stimulating Hormone (TSH) 3.031 uiU/mL (0.358-3.740) Cortisol AM Sample Pending Random Vancomycin Level 21.9 ug/mL Arterial Blood pH 7.456 (7.350-7.450) Arterial Blood Partial Pressure CO2 46.6 mmHg (35.0-45.0) H Arterial Blood Partial Pressure O2 83.7 mmHg (75.0-100.0) Arterial Blood HCO3 32.1 mmol/L (22.0-26.0) H Arterial Blood Oxygen Saturation 96.0 % (92.0-98.0) Arterial Blood Base Excess 7.4 Librado Test Positive Urine Random Sodium 13 mmol/L (20-110) L Current Medications Medications (Trade) Dose Ordered Sig/Keira Route PRN Reason Start Time Stop Time Status Last Admin Dose Admin Albuterol/ Ipratropium (Albuterol/ Ipratropium) 3 ml Q4H PRN HHN Shortness of Breath 09/19/17 14:45 09/24/17 14:44 Albuterol/ Ipratropium (Albuterol/ Ipratropium) 3 ml Q6HRT HHN 09/19/17 19:00 09/24/17 18:59 09/20/17 12:49 Dextrose 1,000 ml @ 100 mls/hr Q10H IV 09/20/17 09:30 10/20/17 09:29 09/20/17 09:56 Dextrose (Dextrose 50%) 25 ml STAT PRN IV Hypoglycemia 09/19/17 14:15 10/19/17 14:14 Dextrose (Dextrose 50%) 50 ml STAT PRN IV Hypoglycemia 09/19/17 14:15 10/19/17 14:14 Heparin Sodium (Porcine) (Heparin 5000 units/ml) 5,000 units EVERY 12 HOURS SUBQ 09/19/17 21:00 10/19/17 20:59 Insulin Aspart (NovoLOG) BEFORE MEALS AND HS SUBQ 09/19/17 16:30 10/19/17 16:29 09/20/17 11:23 Iron Sucrose 200 mg/Sodium Chloride 120 ml @ 240 mls/hr ONCE IV 09/20/17 21:00 09/20/17 22:00 Metoclopramide HCl (Reglan) 5 mg EVERY 8 HOURS GT 09/20/17 14:00 10/20/17 13:59 09/20/17 13:53 Nitroglycerin (Ntg) 1 patch Q24H TDERMAL 09/20/17 10:30 10/20/17 10:29 09/20/17 11:19 Norepinephrine Bitartrate 8 mg/ Dextrose 250 ml @ 0 mls/hr Q24H IV 09/19/17 19:45 10/19/17 19:44 09/19/17 21:01 Pantoprazole (Protonix) 40 mg EVERY 12 HOURS IVP 09/19/17 21:00 10/19/17 20:59 09/20/17 09:56 Piperacillin Sod/ Tazobactam Sod 2.25 gm/Dextrose 55 ml @ 110 mls/hr Q8HR IVPB 09/19/17 22:00 09/24/17 21:59 09/20/17 13:54 Vancomycin HCl (Vanco rx to dose) 1 ea DAILY PRN MISC Per rx protocol 09/19/17 14:15 10/19/17 14:14 Vancomycin HCl/ Dextrose 250 ml @ 166.667 mls/hr Q24H IVPB 09/20/17 11:00 09/21/17 12:29 09/20/17 11:19 ANDRES SAVAGE September 20, 2017 16:45
[2017-09-20] MEDS: Iron Sucrose 200 MG in NS 110 ML IV SCH (21:17)
[2017-09-21] VITALS (24 sets, daily range): BP systolic 112–156; BP diastolic 62–85
--- NOTE | 2017-09-21 00:45 | Consultation ---
DATE OF CONSULTATION: 09/20/2017 GASTROENTEROLOGY CONSULTATION CHIEF COMPLAINT: I was asked to see this patient by Dr. Cesario Brewster for evaluation of anemia and abnormal liver tests. HISTORY OF PRESENT ILLNESS: The patient is a debilitated 87-year-old man, who is [facility] with sepsis and shock and respiratory failure requiring intubation. The patient himself is unable to provide any history, but most of the information is available from the chart and interview with the patient's daughter at bedside. The patient has multiple medical problems including a previous history of stroke with right-sided hemiparesis. He has a gastrostomy tube for long-term enteral access and lives in a supervised setting. He is seen in the hospital feeling ill and has respiratory failure on arrival requiring intubation. He has had a previous GI workup with colonoscopy and perhaps an endoscopy at [facility], but the records are not available at this time. PAST MEDICAL HISTORY: History of stroke with right-sided hemiparesis, status post gastrostomy tube, hypertension, coronary artery disease, congestive heart failure, history of ulcer, history of gastroesophageal reflux, and history of dementia. PAST SURGICAL HISTORY: Status post coronary bypass graft procedure. FAMILY HISTORY: Noncontributory. SOCIAL HISTORY: The patient resides in a supervised setting. He requires tube feedings. REVIEW OF SYSTEMS: Otherwise negative. PHYSICAL EXAMINATION: GENERAL: A debilitated male, on a ventilator, in the ICU, obtunded, with daughter at bedside. HEENT: Normocephalic and atraumatic. Endotracheal tube was in place. NECK: Supple. CHEST: Revealed coarse breath sounds. CARDIOVASCULAR: Revealed a regular rate. ABDOMEN: Soft. Good bowel sounds. Gastrostomy tube was in good position. EXTREMITIES: Revealed no edema. LABORATORY DATA: Noted. ASSESSMENT: This patient presents with anemia requiring a transfusion. There are no reports of melena or bloody bowel movements and therefore, acute upper gastrointestinal bleeding was not witnessed. However, the patient was monitored closely and his blood tests were monitored. I will check his stool occult blood and check the outside records to see if endoscopy and colonoscopy was done at [facility]. In the meantime, his tube feedings to be continued and he will continue receiving supportive care including fluids, antibiotics, and other treatments. The patient's liver tests are elevated, and therefore, abdominal ultrasound will be ordered. Hepatitis serologies will also be ordered and these will be followed as well. CPK will be checked to rule out rhabdomyolysis. RECOMMENDATIONS: Per above discussion and per orders written in the chart. Thank you for asking me to participate in the care of this patient. Freddy Varghese M.D. DR: REINA JOB#: [id number] CC: [email or web address]
[2017-09-21] MEDS: Albuterol/Ipratropium 3ml neb HHN SCH ×4 (00:58→20:17)
[2017-09-21] MEDS: Piperacillin/Tazobactam 2.25 GM in D5W 55 ML IVPB SCH ×3 (05:34→21:05)
[2017-09-21] MEDS: Metoclopramide 10mg/10ml Liq GT SCH ×3 (05:34→21:05)
[2017-09-21 05:35] LABS: HEMATOCRIT 23.6 % (42.0-52.0); HEMOGLOBIN 7.4 G/DL (14.2-18.0); MEAN CORPUSCULAR VOLUME 83 FL (80-99); PLATELET COUNT 213 K/UL (150-450); RED BLOOD COUNT 2.85 M/UL (4.70-6.10); RED CELL DISTRIBUTION WIDTH 16.3 % (11.6-14.8); WHITE BLOOD COUNT 13.4 K/UL (4.8-10.8)
[2017-09-21] MEDS: NovoLOG Insulin Flexpen SUBQ SCH ×3 (06:31→18:01)
[2017-09-21 06:48] LABS: ALANINE AMINOTRANSFERASE 88 U/L (12-78); ALBUMIN 1.4 G/DL (3.4-5.0); ALBUMIN/GLOBULIN RATIO 0.2 (1.0-2.7); ALKALINE PHOSPHATASE 98 U/L (46-116); ANION GAP 6 mmol/L (5-15); ASPARTATE AMINO TRANSFERASE 99 U/L (15-37); BILIRUBIN,TOTAL 0.4 MG/DL (0.2-1.0); BLOOD UREA NITROGEN 111 mg/dL (7-18); CALCIUM 8.8 MG/DL (8.5-10.1); CARBON DIOXIDE 32 MMOL/L (21-32); CHLORIDE 112 MMOL/L (98-107); GAMMA GLUTAMYL TRANSPEPTIDASE 50 U/L (5-85); PHOSPHORUS 3.8 MG/DL (2.5-4.9); POTASSIUM 3.9 MMOL/L (3.5-5.1); SODIUM 150 MMOL/L (136-145)
--- NOTE | 2017-09-21 07:38 | Infectious Diseases Prog Note ---
Assessment/Plan Assessment/Plan A: Sepsis/septic shock off pressors Bacteremia Pneumonia UTI Respiratory failure ATN DM Anemia Elevated transaminase P: Continue Vancomycin & Zosyn will f/u cultures Subjective ROS Limited/Unobtainable: Yes Neurologic: Reports: confusion, other - on restraint Allergies: Coded Allergies: No Known Allergies (Verified , 01/02/09) Objective Vital Signs Last 24 Hour Vital Signs Date Time Temp Pulse Resp B/P (MAP) Pulse Ox O2 Delivery O2 Flow Rate FiO2 09/21/17 07:22 66 16 50 09/21/17 07:22 50 09/21/17 07:22 64 16 100 Mechanical Ventilator 50 09/21/17 07:22 65 16 100 Mechanical Ventilator 50 09/21/17 06:00 63 16 125/67 100 Mechanical Ventilator 50 09/21/17 05:03 63 16 50 09/21/17 05:00 63 16 138/73 100 Mechanical Ventilator 50 09/21/17 04:00 99.1 63 16 128/66 100 Mechanical Ventilator 50 99.1 09/21/17 04:00 50 09/21/17 03:12 61 16 50 09/21/17 03:11 62 /18 03:00 68 16 123/71 99 Mechanical Ventilator 50 09/21/17 02:00 63 16 124/64 100 Mechanical Ventilator 50 64 09/21/17 01:06 67 16 100 Mechanical Ventilator 50 09/21/17 01:00 64 16 123/70 100 Mechanical Ventilator 50 65 09/21/17 00:57 65 16 100 Mechanical Ventilator 50 18 00:57 50 18 00:56 65 16 50 518 00:00 99.1 64 16 131/62 100 Mechanical Ventilator 50 99.1 65 18 00:00 50 518 23:40 64 16 50 5//18 23:12 63 5//18 23:00 64 16 126/70 100 Mechanical Ventilator 50 5/18 22:00 64 16 125/73 100 Mechanical Ventilator 50 5//18 21:24 64 17 50 5/5/18 21:00 63 16 131/70 100 Mechanical Ventilator 50 5/18 20:00 50 5//18 20:00 98.5 64 16 126/69 100 Mechanical Ventilator 50 98.5 5/5/18 19:45 135/74 5/5/18 19:20 64 17 100 Mechanical Ventilator 15.0 50 5/5/18 19:19 69 5/5/18 19:00 65 16 125/71 100 Mechanical Ventilator 50 5/5/18 18:50 50 5/5/18 18:50 64 17 100 Mechanical Ventilator 50 5/5/18 18:47 64 17 50 5/5/18 18:00 64 17 136/82 100 Mechanical Ventilator 50 5/5/18 17:00 63 16 110/71 100 Mechanical Ventilator 50 5/5/18 16:57 61 16 50 5/5/18 16:00 65 5/5/18 16:00 50 5/5/18 16:00 98.6 65 16 109/89 100 Mechanical Ventilator 50 98.6 5//18 15:00 65 16 120/70 100 Mechanical Ventilator 50 5/5/18 14:53 64 17 50 5/5/18 14:15 61 16 50 5/5/18 14:15 50 5/5/18 14:00 65 19 116/67 100 Mechanical Ventilator 50 5//18 13:00 62 20 129/74 100 Mechanical Ventilator 50 5/5/18 13:00 66 16 100 Mechanical Ventilator 50 5/5/18 12:58 63 24 50 5/5/18 12:50 64 16 100 Mechanical Ventilator 50 5/5/18 12:00 61 5/5/18 12:00 50 5/5/18 12:00 98.9 62 21 129/72 100 Mechanical Ventilator 50 98.9 5/5/18 11:19 137/106 5//18 11:00 64 24 137/80 99 Mechanical Ventilator 50 5/18 10:43 50 5/5/18 10:41 98 5/5/18 10:37 61 12 50 5/5/18 10:00 62 16 132/74 100 Mechanical Ventilator 60 5/5/18 09:00 61 16 118/71 100 Mechanical Ventilator 60 5/5/18 08:40 61 16 60 5/5/18 08:00 99.3 61 16 131/72 100 Mechanical Ventilator 70 99.3 5/5/18 08:00 61 5/5/18 07:59 70 Height (Feet): 5 Height (Inches): 8.00 Weight (Pounds): 198 HEENT: other - orally intubated Respiratory/Chest: lungs clear, other - on ventilator Cardiovascular: normal rate, other - RIJ central line Abdomen: soft, non tender, other - GT feeding Extremities: no edema Neurologic/Psychiatric: unresponsiveness Microbiology Date/Time Source Procedure Growth Status 09/19/17 21:15 Blood Blood Culture - Preliminary NO GROWTH AFTER 24 HOURS Resulted 09/19/17 21:10 Blood Blood Culture - Preliminary NO GROWTH AFTER 24 HOURS Resulted 09/19/17 10:11 Blood Blood Culture - Preliminary Resulted 09/19/17 10:00 Blood Blood Culture - Preliminary Resulted 09/20/17 05:00 Sputum Gram Stain Pending Resulted 09/20/17 05:00 Sputum Culture - Preliminary Gram Negative Bacillus 1 Gram Negative Bacillus 2 Resulted 09/19/17 10:11 Urine,Clean Catch Urine Culture - Preliminary Gram Negative Scott Resulted Laboratory Tests Test 09/20/17 11:43 09/20/17 14:00 09/21/17 03:50 Arterial Blood pH 7.456 (7.350-7.450) Arterial Blood Partial Pressure CO2 46.6 mmHg (35.0-45.0) H Arterial Blood Partial Pressure O2 83.7 mmHg (75.0-100.0) Arterial Blood HCO3 32.1 mmol/L (22.0-26.0) H Arterial Blood Oxygen Saturation 96.0 % (92.0-98.0) Arterial Blood Base Excess 7.4 Librado Test Positive Urine Random Sodium 13 mmol/L (20-110) L White Blood Count 13.4 K/UL (4.8-10.8) H Red Blood Count 2.85 M/UL (4.70-6.10) L Hemoglobin 7.4 G/DL (14.2-18.0) L Hematocrit 23.6 % (42.0-52.0) L Mean Corpuscular Volume 83 FL (80-99) Mean Corpuscular Hemoglobin 25.9 PG (27.0-31.0) L Mean Corpuscular Hemoglobin Concent 31.2 G/DL (32.0-36.0) L Red Cell Distribution Width 16.3 % (11.6-14.8) H Platelet Count 213 K/UL (150-450) Mean Platelet Volume 6.7 FL (6.5-10.1) Neutrophils (%) (Auto) % (45.0-75.0) Lymphocytes (%) (Auto) % (20.0-45.0) Monocytes (%) (Auto) % (1.0-10.0) Eosinophils (%) (Auto) % (0.0-3.0) Basophils (%) (Auto) % (0.0-2.0) Neutrophils % (Manual) Pending Lymphocytes % (Manual) Pending Platelet Estimate Pending Platelet Morphology Pending Sodium Level 150 MMOL/L (136-145) H Potassium Level 3.9 MMOL/L (3.5-5.1) Chloride Level 112 MMOL/L (98-107) H Carbon Dioxide Level 32 MMOL/L (21-32) Anion Gap 6 mmol/L (5-15) Blood Urea Nitrogen 111 mg/dL (7-18) H Creatinine 3.0 MG/DL (0.55-1.30) H Estimat Glomerular Filtration Rate mL/min (>60) Glucose Level 201 MG/DL (74-106) H Uric Acid 7.5 MG/DL (2.6-7.2) H Calcium Level 8.8 MG/DL (8.5-10.1) Phosphorus Level 3.8 MG/DL (2.5-4.9) Magnesium Level 3.2 MG/DL (1.8-2.4) H Total Bilirubin 0.4 MG/DL (0.2-1.0) Gamma Glutamyl Transpeptidase 50 U/L (5-85) Aspartate Amino Transf (AST/SGOT) 99 U/L (15-37) H Alanine Aminotransferase (ALT/SGPT) 88 U/L (12-78) H Alkaline Phosphatase 98 U/L (46-116) Troponin I 0.269 ng/mL (0.000-0.056) C-Reactive Protein, Quantitative 21.7 mg/dL (0.00-0.90) H Pro-B-Type Natriuretic Peptide 3367 pg/mL (0-125) H Total Protein 7.1 G/DL (6.4-8.2) Albumin 1.4 G/DL (3.4-5.0) L Globulin 5.7 g/dL Albumin/Globulin Ratio 0.2 (1.0-2.7) L Hepatitis A IgM Antibody Pending Hepatitis B Surface Antigen Pending Hepatitis B Core IgM Antibody Pending Hepatitis C Antibody Pending Current Medications Medications (Trade) Dose Ordered Sig/Keira Route PRN Reason Start Time Stop Time Status Last Admin Dose Admin Albuterol/ Ipratropium (Albuterol/ Ipratropium) 3 ml Q4H PRN HHN Shortness of Breath 09/19/17 14:45 09/24/17 14:44 Albuterol/ Ipratropium (Albuterol/ Ipratropium) 3 ml Q6HRT HHN 09/19/17 19:00 09/24/17 18:59 09/21/17 07:22 Dextrose 1,000 ml @ 100 mls/hr Q10H IV 09/20/17 09:30 10/20/17 09:29 09/21/17 05:34 Dextrose (Dextrose 50%) 25 ml STAT PRN IV Hypoglycemia 09/19/17 14:15 10/19/17 14:14 Dextrose (Dextrose 50%) 50 ml STAT PRN IV Hypoglycemia 09/19/17 14:15 10/19/17 14:14 Heparin Sodium (Porcine) (Heparin 5000 units/ml) 5,000 units EVERY 12 HOURS SUBQ 09/19/17 21:00 10/19/17 20:59 Insulin Aspart (NovoLOG) BEFORE MEALS AND HS SUBQ 09/19/17 16:30 10/19/17 16:29 09/21/17 06:31 Iron Sucrose 200 mg/Sodium Chloride 120 ml @ 240 mls/hr ONCE IV 09/20/17 21:00 09/21/17 22:00 09/20/17 21:17 Metoclopramide HCl (Reglan) 5 mg EVERY 8 HOURS GT 09/20/17 14:00 10/20/17 13:59 09/21/17 05:34 Nitroglycerin (Ntg) 1 patch Q24H TDERMAL 09/20/17 10:30 10/20/17 10:29 09/20/17 11:19 Norepinephrine Bitartrate 8 mg/ Dextrose 250 ml @ 0 mls/hr Q24H IV 09/19/17 19:45 10/19/17 19:44 09/19/17 21:01 Pantoprazole (Protonix) 40 mg EVERY 12 HOURS IVP 09/19/17 21:00 10/19/17 20:59 09/20/17 20:39 Piperacillin Sod/ Tazobactam Sod 2.25 gm/Dextrose 55 ml @ 110 mls/hr Q8HR IVPB 09/19/17 22:00 09/24/17 21:59 09/21/17 05:34 Vancomycin HCl (Vanco rx to dose) 1 ea DAILY PRN MISC Per rx protocol 09/19/17 14:15 10/19/17 14:14 Vancomycin HCl/ Dextrose 250 ml @ 166.667 mls/hr Q24H IVPB 09/20/17 11:00 09/21/17 12:29 09/20/17 11:19 ANDRES SAVAGE September 21, 2017 07:38
[2017-09-21] MEDS: Heparin 5000 units/ml inj SUBQ SCH ×2 (08:08→20:54)
--- NOTE | 2017-09-21 09:06 | Pulmonology Progress Note ---
Assessment/Plan Assessment/Plan (1) Respiratory failure (2) Septic shock (3) Aspiration pneumonia (4) Sepsis (5) UTI (urinary tract infection) (6) Renal failure (7) Feeding by G-tube (8) Acute encephalopathy (9) HCAP (healthcare-associated pneumonia) (10) s/p multiple lacunar strokes, old (11) recent L MCA ischemic stroke Respiratory: Will begin weaning - Titrate down to keep SaO2 > 90, keep PEEP at 5, CXR, ABG adequate- PRN HHN's; will switch and try CPAP today Cardiac: off pressors now. Renal: F/U I&O, keep IV fluid - NS@ 100 for now, check electrolytes, Infectious Disease: continue antibiotics - Vanomycin & Zosyn (D2), F/U Cx's Gastrointestinal: hold feedings, abdominal imaging - ABD U/S, other - Repeat lipase and LFT's, GI evaluation Endocrine: monitor blood sugar, check TSH, continue sliding scale insulin, other - Check cortisol Hematologic: monitor H/H; Hgb 7->9.4->7.4; will redraw Neurologic: keep patient comfortable Prophylaxis: Protonix, Heparin - SQ Discussed with family at bedside as well as RN Subjective Interval Events: Hgb now 7.4; troponin up from yesterday Constitutional: Reports: no symptoms HEENT: Repors: no symptoms Respiratory: Reports: no symptoms Cardiovascular: Reports: no symptoms Gastrointestinal/Abdominal: Reports: no symptoms Genitourinary: Reports: no symptoms Allergies: Coded Allergies: No Known Allergies (Verified , 01/02/09) Objective Last 24 Hour Vital Signs Date Time Temp Pulse Resp B/P (MAP) Pulse Ox O2 Delivery O2 Flow Rate FiO2 09/21/17 07:22 66 16 50 09/21/17 07:22 50 09/21/17 07:22 64 16 100 Mechanical Ventilator 50 09/21/17 07:22 65 16 100 Mechanical Ventilator 50 09/21/17 07:00 64 16 127/65 100 Mechanical Ventilator 50 09/21/17 06:00 63 16 125/67 100 Mechanical Ventilator 50 09/21/17 05:03 63 16 50 09/21/17 05:00 63 16 138/73 100 Mechanical Ventilator 50 09/21/17 04:00 99.1 63 16 128/66 100 Mechanical Ventilator 50 99.1 5/6/18 04:00 50 5/6/18 03:12 61 16 50 5/6/18 03:11 62 5/6/18 03:00 68 16 123/71 99 Mechanical Ventilator 50 5/6/18 02:00 63 16 124/64 100 Mechanical Ventilator 50 64 5/6/18 01:06 67 16 100 Mechanical Ventilator 50 5/6/18 01:00 64 16 123/70 100 Mechanical Ventilator 50 65 5/6/18 00:57 65 16 100 Mechanical Ventilator 50 5/6/18 00:57 50 5/6/18 00:56 65 16 50 5/6/18 00:00 99.1 64 16 131/62 100 Mechanical Ventilator 50 99.1 65 5/6/18 00:00 50 5/5/18 23:40 64 16 50 5/5/18 23:12 63 5/5/18 23:00 64 16 126/70 100 Mechanical Ventilator 50 5/5/18 22:00 64 16 125/73 100 Mechanical Ventilator 50 5/5/18 21:24 64 17 50 5/5/18 21:00 63 16 131/70 100 Mechanical Ventilator 50 5/5/18 20:00 50 5/5/18 20:00 98.5 64 16 126/69 100 Mechanical Ventilator 50 98.5 5/5/18 19:45 135/74 5/5/18 19:20 64 17 100 Mechanical Ventilator 15.0 50 5/5/18 19:19 69 5/5/18 19:00 65 16 125/71 100 Mechanical Ventilator 50 5/5/18 18:50 50 5/5/18 18:50 64 17 100 Mechanical Ventilator 50 5/5/18 18:47 64 17 50 5/5/18 18:00 64 17 136/82 100 Mechanical Ventilator 50 5/5/18 17:00 63 16 110/71 100 Mechanical Ventilator 50 5/5/18 16:57 61 16 50 5/5/18 16:00 65 5/5/18 16:00 50 5/5/18 16:00 98.6 65 16 109/89 100 Mechanical Ventilator 50 98.6 5/5/18 15:00 65 16 120/70 100 Mechanical Ventilator 50 5/5/18 14:53 64 17 50 5/5/18 14:15 61 16 50 5/5/18 14:15 50 5/5/18 14:00 65 19 116/67 100 Mechanical Ventilator 50 09/20/17 13:00 62 20 129/74 100 Mechanical Ventilator 50 09/20/17 13:00 66 16 100 Mechanical Ventilator 50 09/20/17 12:58 63 24 50 09/20/17 12:50 64 16 100 Mechanical Ventilator 50 09/20/17 12:00 61 09/20/17 12:00 50 09/20/17 12:00 98.9 62 21 129/72 100 Mechanical Ventilator 50 98.9 09/20/17 11:19 137/106 09/20/17 11:00 64 24 137/80 99 Mechanical Ventilator 50 09/20/17 10:43 50 09/20/17 10:41 98 09/20/17 10:37 61 12 50 09/20/17 10:00 62 16 132/74 100 Mechanical Ventilator 60 Intake and Output 09/20/17 09/21/17 19:00 07:00 Intake Total 1625.667 ml 1760 ml Output Total 805 ml 845 ml Balance 820.667 ml 915 ml Intake Oral 0 ml Free Water 100 ml IV Total 1405.667 ml 1430 ml Tube Feeding 60 ml 270 ml Other 60 ml 60 ml Output Urine Total 805 ml 845 ml General Appearance: no acute distress HEENT: normocephalic Respiratory/Chest: chest wall non-tender, lungs clear Cardiovascular: normal peripheral pulses, normal rate Abdomen: normal bowel sounds, soft, non tender Extremities: no cyanosis Microbiology Date/Time Source Procedure Growth Status 09/19/17 21:15 Blood Blood Culture - Preliminary NO GROWTH AFTER 24 HOURS Resulted 09/19/17 21:10 Blood Blood Culture - Preliminary NO GROWTH AFTER 24 HOURS Resulted 09/19/17 10:11 Blood Blood Culture - Preliminary Staphylococcus Species Resulted 09/19/17 10:00 Blood Blood Culture - Preliminary Staphylococcus Species Resulted 09/20/17 05:00 Sputum Gram Stain Pending Resulted 09/20/17 05:00 Sputum Culture - Preliminary Gram Negative Bacillus 1 Gram Negative Bacillus 2 Resulted 09/20/17 14:00 Urine,Clean Catch Urine Culture - Preliminary NO GROWTH Resulted 09/19/17 10:11 Urine,Clean Catch Urine Culture - Preliminary Proteus Mirabilis Resulted 09/19/17 10:11 Rectum VRE Culture - Final Enterococcus Faecalis - Vre Complete Laboratory Tests 09/20/17 11:43: Arterial Blood pH 7.456H, Arterial Blood Partial Pressure CO2 46.6H, Arterial Blood Partial Pressure O2 83.7, Arterial Blood HCO3 32.1H, Arterial Blood Oxygen Saturation 96.0, Arterial Blood Base Excess 7.4, Librado Test Positive 09/20/17 14:00: Urine Random Sodium 13L 09/21/17 03:50: White Blood Count 13.4H, Red Blood Count 2.85L, Hemoglobin 7.4L, Hematocrit 23.6L, Mean Corpuscular Volume 83, Mean Corpuscular Hemoglobin 25.9L, Mean Corpuscular Hemoglobin Concent 31.2L, Red Cell Distribution Width 16.3H, Platelet Count 213, Mean Platelet Volume 6.7, Neutrophils (%) (Auto) , Lymphocytes (%) (Auto) , Monocytes (%) (Auto) , Eosinophils (%) (Auto) , Basophils (%) (Auto) , Differential Total Cells Counted 100, Neutrophils % ( Manual) 76H, Lymphocytes % (Manual) 18L, Monocytes % (Manual) 5, Eosinophils % ( Manual) 1, Basophils % (Manual) 0, Band Neutrophils 0, Platelet Estimate Adequate, Platelet Morphology Normal, Hypochromasia 1+, Anisocytosis 1+, Sodium Level 150H, Potassium Level 3.9, Chloride Level 112H, Carbon Dioxide Level 32, Anion Gap 6, Blood Urea Nitrogen 111H, Creatinine 3.0H, Estimat Glomerular Filtration Rate , Glucose Level 201H, Uric Acid 7.5H, Calcium Level 8.8, Phosphorus Level 3.8, Magnesium Level 3.2H, Total Bilirubin 0.4, Gamma Glutamyl Transpeptidase 50, Aspartate Amino Transf (AST/SGOT) 99H, Alanine Aminotransferase (ALT/SGPT) 88H, Alkaline Phosphatase 98, Troponin I 0.269H, C- Reactive Protein, Quantitative 21.7H, Pro-B-Type Natriuretic Peptide 3367H, Total Protein 7.1, Albumin 1.4L, Globulin 5.7, Albumin/Globulin Ratio 0.2L, Hepatitis A IgM Antibody [Pending], Hepatitis B Surface Antigen [Pending], Hepatitis B Core IgM Antibody [Pending], Hepatitis C Antibody [Pending] Current Medications Medications (Trade) Dose Ordered Sig/Keira Route PRN Reason Start Time Stop Time Status Last Admin Dose Admin Albuterol/ Ipratropium (Albuterol/ Ipratropium) 3 ml Q4H PRN HHN Shortness of Breath 09/19/17 14:45 09/24/17 14:44 Albuterol/ Ipratropium (Albuterol/ Ipratropium) 3 ml Q6HRT HHN 09/19/17 19:00 09/24/17 18:59 09/21/17 07:22 Dextrose 1,000 ml @ 100 mls/hr Q10H IV 09/20/17 09:30 10/20/17 09:29 09/21/17 05:34 Dextrose (Dextrose 50%) 25 ml STAT PRN IV Hypoglycemia 09/19/17 14:15 10/19/17 14:14 Dextrose (Dextrose 50%) 50 ml STAT PRN IV Hypoglycemia 09/19/17 14:15 10/19/17 14:14 Heparin Sodium (Porcine) (Heparin 5000 units/ml) 5,000 units EVERY 12 HOURS SUBQ 09/19/17 21:00 10/19/17 20:59 Insulin Aspart (NovoLOG) BEFORE MEALS AND HS SUBQ 09/19/17 16:30 10/19/17 16:29 09/21/17 06:31 Iron Sucrose 200 mg/Sodium Chloride 120 ml @ 240 mls/hr ONCE IV 09/20/17 21:00 09/21/17 22:00 09/20/17 21:17 Metoclopramide HCl (Reglan) 5 mg EVERY 8 HOURS GT 09/20/17 14:00 10/20/17 13:59 09/21/17 05:34 Nitroglycerin (Ntg) 1 patch Q24H TDERMAL 09/20/17 10:30 10/20/17 10:29 09/20/17 11:19 Norepinephrine Bitartrate 8 mg/ Dextrose 250 ml @ 0 mls/hr Q24H IV 09/19/17 19:45 10/19/17 19:44 09/19/17 21:01 Pantoprazole (Protonix) 40 mg EVERY 12 HOURS IVP 09/19/17 21:00 10/19/17 20:59 09/20/17 20:39 Piperacillin Sod/ Tazobactam Sod 2.25 gm/Dextrose 55 ml @ 110 mls/hr Q8HR IVPB 09/19/17 22:00 09/24/17 21:59 09/21/17 05:34 Vancomycin HCl (Vanco rx to dose) 1 ea DAILY PRN MISC Per rx protocol 09/19/17 14:15 10/19/17 14:14 Vancomycin HCl/ Dextrose 250 ml @ 166.667 mls/hr Q24H IVPB 09/20/17 11:00 09/21/17 12:29 09/20/17 11:19 Noman Pierre MD September 21, 2017 09:06
[2017-09-21] MEDS: Pantoprazole Inj IVP SCH ×2 (09:12→20:51)
[2017-09-21 10:27] LABS: HEMATOCRIT 24.2 % (42.0-52.0); HEMOGLOBIN 7.5 G/DL (14.2-18.0); MEAN CORPUSCULAR VOLUME 83 FL (80-99); PLATELET COUNT 218 K/UL (150-450); RED BLOOD COUNT 2.92 M/UL (4.70-6.10); RED CELL DISTRIBUTION WIDTH 16.4 % (11.6-14.8)
[2017-09-21] MEDS: Nitroglycerin Patch 0.4mg TDERMAL SCH (10:33)
[2017-09-21 10:45] LABS: CREATINE KINASE 1531 U/L (26-308)
--- NOTE | 2017-09-21 11:36 | Cardiology Report ---
APPROVED REPORT EXAM: Two-dimensional and M-mode echocardiogram with Doppler and color Doppler. INDICATION Congestive Heart Failure M-Mode DIMENSIONS IVSd2.0 (0.7-1.1cm)Left Atrium (MM)4.0 (1.6-4.0cm) LVDd2.6 (3.5-5.6cm)Aortic Root2.6 (2.0-3.7cm) PWd2.0 (0.7-1.1cm)Aortic Cusp Exc.1.7 (1.5-2.0cm) LVDs1.6 (2.5-4.0cm) PWs2.4 cm Technically difficult study due to patient on vent. Study quality precludes accurate assessment of regional wall motion. Normal left ventricular chamber size, systolic function and wall motion. Left ventricular ejection fraction estimated to be 60 %. Moderate left ventricular hypertrophy. Anterior Echo-free space, may be due to pericardial fat or effusion. All other cardiac chamber sizes are within normal limits. Heavy focal aortic valve sclerosis with adequate cusp excursion. Mildly thickened mitral valve leaflets with normal excursion. Moderate mitral annulus and aortic root calcification. Pulmonic valve not well visualized. Normal tricuspid valve structure. Subcostal views not obtainable. A color flow and spectral Doppler study was performed and revealed: No aortic insufficiency. Peak aortic valve gradient of 27 mmHg and a mean of 16 mmHg. Aortic valve area 1.7 cm2 calculated by continuity equation. Mild mitral regurgitation. Mitral diastolic velocities suggest mild left ventricular diastolic function (Grade I). Mild tricuspid regurgitation. Tricuspid systolic velocities suggests peak right ventricular systolic pressure of 37 mmHg, consistent with mild pulmonary hypertension. No pulmonic regurgitation present.
--- NOTE | 2017-09-21 11:40 | Nephrology Progress Note ---
Assessment/Plan Problem List: (1) ATN (acute tubular necrosis) (2) Septic shock Assessment Acute Renal failure- Cr stable ? Underlying CKD Component of dehydration, Pre renal state and Hypernatremia Acute respiratory failure, Aspiartion Pneumonia, UTI Septic Shock H/O Multiple Strokes Anemia Elevated Troponin Hyperglycemia PEG Plan transfuse? Pulm support Hydrate- avoid nephrotoxics Monitor renal parameters Hemodynamic support IV iron Nitro and asa GT feeding Per orders Subjective ROS Limited/Unobtainable: Yes Objective Objective Last 24 Hour Vital Signs Date Time Temp Pulse Resp B/P (MAP) Pulse Ox O2 Delivery O2 Flow Rate FiO2 09/21/17 10:49 64 16 50 18 10:33 127/65 09/21/17 10:00 63 16 116/62 100 Mechanical Ventilator 50 09/21/17 09:08 63 16 50 09/21/17 09:00 65 16 112/63 100 Mechanical Ventilator 50 09/21/17 08:00 50 09/21/17 08:00 98.8 65 16 124/64 100 Mechanical Ventilator 50 98.8 09/21/17 07:22 66 16 50 09/21/17 07:22 50 18 07:22 64 16 100 Mechanical Ventilator 50 09/21/17 07:22 65 16 100 Mechanical Ventilator 50 09/21/17 07:00 64 16 127/65 100 Mechanical Ventilator 50 09/21/17 06:00 63 16 125/67 100 Mechanical Ventilator 50 09/21/17 05:03 63 16 50 18 05:00 63 16 138/73 100 Mechanical Ventilator 50 09/21/17 04:00 99.1 63 16 128/66 100 Mechanical Ventilator 50 99.1 09/21/17 04:00 50 18 03:12 61 16 50 18 03:11 62 18 03:00 68 16 123/71 99 Mechanical Ventilator 50 09/21/17 02:00 63 16 124/64 100 Mechanical Ventilator 50 64 09/21/17 01:06 67 16 100 Mechanical Ventilator 50 18 01:00 64 16 123/70 100 Mechanical Ventilator 50 65 09/21/17 00:57 65 16 100 Mechanical Ventilator 50 09/21/17 00:57 50 18 00:56 65 16 50 18 00:00 99.1 64 16 131/62 100 Mechanical Ventilator 50 99.1 65 5/6/18 00:00 50 5/5/18 23:40 64 16 50 5/5/18 23:12 63 5/5/18 23:00 64 16 126/70 100 Mechanical Ventilator 50 5/5/18 22:00 64 16 125/73 100 Mechanical Ventilator 50 5/5/18 21:24 64 17 50 5/5/18 21:00 63 16 131/70 100 Mechanical Ventilator 50 5/5/18 20:00 50 5/5/18 20:00 98.5 64 16 126/69 100 Mechanical Ventilator 50 98.5 5/5/18 19:45 135/74 5/5/18 19:20 64 17 100 Mechanical Ventilator 15.0 50 5/5/18 19:19 69 5/5/18 19:00 65 16 125/71 100 Mechanical Ventilator 50 5/5/18 18:50 50 5/5/18 18:50 64 17 100 Mechanical Ventilator 50 5/5/18 18:47 64 17 50 5/5/18 18:00 64 17 136/82 100 Mechanical Ventilator 50 5/5/18 17:00 63 16 110/71 100 Mechanical Ventilator 50 5/5/18 16:57 61 16 50 5/5/18 16:00 65 5/5/18 16:00 50 5/5/18 16:00 98.6 65 16 109/89 100 Mechanical Ventilator 50 98.6 5/5/18 15:00 65 16 120/70 100 Mechanical Ventilator 50 5/5/18 14:53 64 17 50 5/5/18 14:15 61 16 50 5/5/18 14:15 50 5/5/18 14:00 65 19 116/67 100 Mechanical Ventilator 50 5/5/18 13:00 62 20 129/74 100 Mechanical Ventilator 50 5/5/18 13:00 66 16 100 Mechanical Ventilator 50 5/5/18 12:58 63 24 50 5/5/18 12:50 64 16 100 Mechanical Ventilator 50 5/5/18 12:00 61 5/5/18 12:00 50 5/5/18 12:00 98.9 62 21 129/72 100 Mechanical Ventilator 50 98.9 Intake and Output 5/5/18 5/6/18 19:00 07:00 Intake Total 1625.667 ml 1760 ml Output Total 805 ml 845 ml Balance 820.667 ml 915 ml Intake Oral 0 ml Free Water 100 ml IV Total 1405.667 ml 1430 ml Tube Feeding 60 ml 270 ml Other 60 ml 60 ml Output Urine Total 805 ml 845 ml Laboratory Tests 09/20/17 11:43: Arterial Blood pH 7.456H, Arterial Blood Partial Pressure CO2 46.6H, Arterial Blood Partial Pressure O2 83.7, Arterial Blood HCO3 32.1H, Arterial Blood Oxygen Saturation 96.0, Arterial Blood Base Excess 7.4, Librado Test Positive 09/20/17 14:00: Urine Random Sodium 13L 09/21/17 03:50: White Blood Count 13.4H, Red Blood Count 2.85L, Hemoglobin 7.4L, Hematocrit 23.6L, Mean Corpuscular Volume 83, Mean Corpuscular Hemoglobin 25.9L, Mean Corpuscular Hemoglobin Concent 31.2L, Red Cell Distribution Width 16.3H, Platelet Count 213, Mean Platelet Volume 6.7, Neutrophils (%) (Auto) , Lymphocytes (%) (Auto) , Monocytes (%) (Auto) , Eosinophils (%) (Auto) , Basophils (%) (Auto) , Differential Total Cells Counted 100, Neutrophils % ( Manual) 76H, Lymphocytes % (Manual) 18L, Monocytes % (Manual) 5, Eosinophils % ( Manual) 1, Basophils % (Manual) 0, Band Neutrophils 0, Platelet Estimate Adequate, Platelet Morphology Normal, Hypochromasia 1+, Anisocytosis 1+, Sodium Level 150H, Potassium Level 3.9, Chloride Level 112H, Carbon Dioxide Level 32, Anion Gap 6, Blood Urea Nitrogen 111H, Creatinine 3.0H, Estimat Glomerular Filtration Rate , Glucose Level 201H, Uric Acid 7.5H, Calcium Level 8.8, Phosphorus Level 3.8, Magnesium Level 3.2H, Total Bilirubin 0.4, Gamma Glutamyl Transpeptidase 50, Aspartate Amino Transf (AST/SGOT) 99H, Alanine Aminotransferase (ALT/SGPT) 88H, Alkaline Phosphatase 98, Total Creatine Kinase 1531H, Troponin I 0.269H, C-Reactive Protein, Quantitative 21.7H, Pro-B-Type Natriuretic Peptide 3367H, Total Protein 7.1, Albumin 1.4L, Globulin 5.7, Albumin/Globulin Ratio 0.2L, Hepatitis A IgM Antibody [Pending], Hepatitis B Surface Antigen [Pending], Hepatitis B Core IgM Antibody [Pending], Hepatitis C Antibody [Pending] 09/21/17 09:00: White Blood Count 14.0H, Red Blood Count 2.92L, Hemoglobin 7.5L, Hematocrit 24.2L, Mean Corpuscular Volume 83, Mean Corpuscular Hemoglobin 25.8L, Mean Corpuscular Hemoglobin Concent 31.1L, Red Cell Distribution Width 16.4H, Platelet Count 218, Mean Platelet Volume 6.2L, Neutrophils (%) (Auto) , Lymphocytes (%) (Auto) , Monocytes (%) (Auto) , Eosinophils (%) (Auto) , Basophils (%) (Auto) , Differential Total Cells Counted 100, Neutrophils % ( Manual) 77H, Lymphocytes % (Manual) 14L, Monocytes % (Manual) 5, Eosinophils % ( Manual) 4H, Basophils % (Manual) 0, Band Neutrophils 0, Platelet Estimate Adequate, Platelet Morphology Normal, Hypochromasia 1+, Anisocytosis 1+ Height (Feet): 5 Height (Inches): 8.00 Weight (Pounds): 198 General Appearance: no apparent distress Cardiovascular: tachycardia Respiratory/Chest: decreased breath sounds Abdomen: distended ROSE MARY REID September 21, 2017 11:40
--- NOTE | 2017-09-21 11:58 | Cardiology Report ---
APPROVED REPORT EKG Measurement Heart [id number] Normal sinus rhythm Left axis deviation Left bundle branch block Abnormal ECG
--- NOTE | 2017-09-21 12:28 | General Progress Note ---
Assessment/Plan Assessment/Plan Assessment - Anemia - abnormal LFT - Resp failure - Renal failure - Sepsis - CVA / (R) taylor - dysphagia / GT Recommendations - TF - check abd u/s - check OB - transufse PRN - abx - s/p EGD/colon 07/2017 at [facility] (HH,polyps, diverticulosis) Subjective Allergies: Coded Allergies: No Known Allergies (Verified , 01/02/09) Subjective Above noted intubated, in ICU d/w family at bedside tolerating TF no BM yet Objective Last 24 Hour Vital Signs Date Time Temp Pulse Resp B/P (MAP) Pulse Ox O2 Delivery O2 Flow Rate FiO2 18 10:49 64 16 50 5/18 10:33 127/65 18 10:00 63 16 116/62 100 Mechanical Ventilator 50 18 09:08 63 16 50 //18 09:00 65 16 112/63 100 Mechanical Ventilator 50 18 08:00 50 //18 08:00 98.8 65 16 124/64 100 Mechanical Ventilator 50 98.8 09/21/18 07:22 66 16 50 5/6/18 07:22 50 5/6/18 07:22 64 16 100 Mechanical Ventilator 50 5/6/18 07:22 65 16 100 Mechanical Ventilator 50 18 07:00 64 16 127/65 100 Mechanical Ventilator 50 /6/18 06:00 63 16 125/67 100 Mechanical Ventilator 50 18 05:03 63 16 50 5/6/18 05:00 63 16 138/73 100 Mechanical Ventilator 50 5/6/18 04:00 99.1 63 16 128/66 100 Mechanical Ventilator 50 99.1 6/18 04:00 50 5/6/18 03:12 61 16 50 5/6/18 03:11 62 5/6/18 03:00 68 16 123/71 99 Mechanical Ventilator 50 09/21/18 02:00 63 16 124/64 100 Mechanical Ventilator 50 64 5/6/18 01:06 67 16 100 Mechanical Ventilator 50 5/6/18 01:00 64 16 123/70 100 Mechanical Ventilator 50 65 5/6/18 00:57 65 16 100 Mechanical Ventilator 50 5/6/18 00:57 50 5/6/18 00:56 65 16 50 5/6/18 00:00 99.1 64 16 131/62 100 Mechanical Ventilator 50 99.1 65 5/6/18 00:00 50 5/5/18 23:40 64 16 50 5/5/18 23:12 63 5/5/18 23:00 64 16 126/70 100 Mechanical Ventilator 50 5/5/18 22:00 64 16 125/73 100 Mechanical Ventilator 50 5/5/18 21:24 64 17 50 5/5/18 21:00 63 16 131/70 100 Mechanical Ventilator 50 5/5/18 20:00 50 5/5/18 20:00 98.5 64 16 126/69 100 Mechanical Ventilator 50 98.5 5/5/18 19:45 135/74 5/5/18 19:20 64 17 100 Mechanical Ventilator 15.0 50 5/5/18 19:19 69 5/5/18 19:00 65 16 125/71 100 Mechanical Ventilator 50 5/5/18 18:50 50 5/5/18 18:50 64 17 100 Mechanical Ventilator 50 5/5/18 18:47 64 17 50 5/5/18 18:00 64 17 136/82 100 Mechanical Ventilator 50 5/5/18 17:00 63 16 110/71 100 Mechanical Ventilator 50 5/5/18 16:57 61 16 50 5/5/18 16:00 65 5/5/18 16:00 50 5/5/18 16:00 98.6 65 16 109/89 100 Mechanical Ventilator 50 98.6 5/5/18 15:00 65 16 120/70 100 Mechanical Ventilator 50 5/5/18 14:53 64 17 50 5/5/18 14:15 61 16 50 5/5/18 14:15 50 5/5/18 14:00 65 19 116/67 100 Mechanical Ventilator 50 5/5/18 13:00 62 20 129/74 100 Mechanical Ventilator 50 5/5/18 13:00 66 16 100 Mechanical Ventilator 50 5/5/18 12:58 63 24 50 5/5/18 12:50 64 16 100 Mechanical Ventilator 50 Intake and Output 5/5/18 5/6/18 19:00 07:00 Intake Total 1625.667 ml 1760 ml Output Total 805 ml 845 ml Balance 820.667 ml 915 ml Intake Oral 0 ml Free Water 100 ml IV Total 1405.667 ml 1430 ml Tube Feeding 60 ml 270 ml Other 60 ml 60 ml Output Urine Total 805 ml 845 ml Laboratory Tests 09/20/17 14:00: Urine Random Sodium 13L 09/21/17 03:50: White Blood Count 13.4H, Red Blood Count 2.85L, Hemoglobin 7.4L, Hematocrit 23.6L, Mean Corpuscular Volume 83, Mean Corpuscular Hemoglobin 25.9L, Mean Corpuscular Hemoglobin Concent 31.2L, Red Cell Distribution Width 16.3H, Platelet Count 213, Mean Platelet Volume 6.7, Neutrophils (%) (Auto) , Lymphocytes (%) (Auto) , Monocytes (%) (Auto) , Eosinophils (%) (Auto) , Basophils (%) (Auto) , Differential Total Cells Counted 100, Neutrophils % ( Manual) 76H, Lymphocytes % (Manual) 18L, Monocytes % (Manual) 5, Eosinophils % ( Manual) 1, Basophils % (Manual) 0, Band Neutrophils 0, Platelet Estimate Adequate, Platelet Morphology Normal, Hypochromasia 1+, Anisocytosis 1+, Sodium Level 150H, Potassium Level 3.9, Chloride Level 112H, Carbon Dioxide Level 32, Anion Gap 6, Blood Urea Nitrogen 111H, Creatinine 3.0H, Estimat Glomerular Filtration Rate , Glucose Level 201H, Uric Acid 7.5H, Calcium Level 8.8, Phosphorus Level 3.8, Magnesium Level 3.2H, Total Bilirubin 0.4, Gamma Glutamyl Transpeptidase 50, Aspartate Amino Transf (AST/SGOT) 99H, Alanine Aminotransferase (ALT/SGPT) 88H, Alkaline Phosphatase 98, Total Creatine Kinase 1531H, Troponin I 0.269H, C-Reactive Protein, Quantitative 21.7H, Pro-B-Type Natriuretic Peptide 3367H, Total Protein 7.1, Albumin 1.4L, Globulin 5.7, Albumin/Globulin Ratio 0.2L, Hepatitis A IgM Antibody [Pending], Hepatitis B Surface Antigen [Pending], Hepatitis B Core IgM Antibody [Pending], Hepatitis C Antibody [Pending] 09/21/17 09:00: White Blood Count 14.0H, Red Blood Count 2.92L, Hemoglobin 7.5L, Hematocrit 24.2L, Mean Corpuscular Volume 83, Mean Corpuscular Hemoglobin 25.8L, Mean Corpuscular Hemoglobin Concent 31.1L, Red Cell Distribution Width 16.4H, Platelet Count 218, Mean Platelet Volume 6.2L, Neutrophils (%) (Auto) , Lymphocytes (%) (Auto) , Monocytes (%) (Auto) , Eosinophils (%) (Auto) , Basophils (%) (Auto) , Differential Total Cells Counted 100, Neutrophils % ( Manual) 77H, Lymphocytes % (Manual) 14L, Monocytes % (Manual) 5, Eosinophils % ( Manual) 4H, Basophils % (Manual) 0, Band Neutrophils 0, Platelet Estimate Adequate, Platelet Morphology Normal, Hypochromasia 1+, Anisocytosis 1+ Height (Feet): 5 Height (Inches): 8.00 Weight (Pounds): 198 Objective Elderly AA man NCAT supple CTA RRR Soft ND, NT, (+) GT trace edema OBS, (R) taylor LISANDRA PALMA September 21, 2017 12:28
[2017-09-21] MEDS ORDERED: Tubing IV Secondary IV ONE (16:11)
[2017-09-21] MEDS ORDERED: Tubing IV Blood Pump IV ONE (16:11)
[2017-09-21] MEDS: Iron Sucrose 200 MG in NS 110 ML IV SCH (21:00)
[2017-09-22] VITALS (24 sets, daily range): BP systolic 111–194; BP diastolic 54–81
[2017-09-22] MEDS: NovoLOG Insulin Flexpen SUBQ SCH ×5 (00:37→23:48)
[2017-09-22] MEDS: Albuterol/Ipratropium 3ml neb HHN SCH ×4 (01:34→19:23)
[2017-09-22] MEDS: Metoclopramide 10mg/10ml Liq GT SCH ×3 (05:42→22:00)
[2017-09-22] MEDS: Piperacillin/Tazobactam 2.25 GM in D5W 55 ML IVPB SCH ×3 (05:45→21:20)
[2017-09-22 06:20] LABS: BASOPHILS % (AUTO) 0.2 % (0.0-2.0); HEMATOCRIT 28.2 % (42.0-52.0); HEMOGLOBIN 9.4 G/DL (14.2-18.0); MEAN CORPUSCULAR VOLUME 83 FL (80-99); MONOCYTES % (AUTO) 5.4 % (1.0-10.0); NEUTROPHILS % (AUTO) 69.5 % (45.0-75.0); PLATELET COUNT 215 K/UL (150-450); RED CELL DISTRIBUTION WIDTH 16.1 % (11.6-14.8); WHITE BLOOD COUNT 12.6 K/UL (4.8-10.8)
[2017-09-22 06:36] LABS: ALANINE AMINOTRANSFERASE 115 U/L (12-78); ALBUMIN 1.4 G/DL (3.4-5.0); ALBUMIN/GLOBULIN RATIO 0.2 (1.0-2.7); ALKALINE PHOSPHATASE 120 U/L (46-116); ANION GAP 9 mmol/L (5-15); ASPARTATE AMINO TRANSFERASE 129 U/L (15-37); BILIRUBIN,TOTAL 0.4 MG/DL (0.2-1.0); BLOOD UREA NITROGEN 84 mg/dL (7-18); CALCIUM 8.6 MG/DL (8.5-10.1); CARBON DIOXIDE 28 MMOL/L (21-32); CHLORIDE 109 MMOL/L (98-107); CREATININE 2.6 MG/DL (0.55-1.30); POTASSIUM 3.4 MMOL/L (3.5-5.1); SODIUM 146 MMOL/L (136-145)
[2017-09-22] MEDS: Pantoprazole Inj IVP SCH ×2 (08:15→20:06)
[2017-09-22] MEDS ORDERED: Potassium Chloride 40 MEQ in Sodium Chloride 500ML 550 ML IVPB ONE (08:15)
[2017-09-22] MEDS: Heparin 5000 units/ml inj SUBQ SCH ×2 (08:20→20:07)
--- NOTE | 2017-09-22 09:07 | Infectious Diseases Prog Note ---
Assessment/Plan Assessment/Plan A: Sepsis/septic shock off pressors Bacteremia with Staph capitis/ contamination Pneumonia with MDR Acinetobacter & Proteus UTI with Proteus Respiratory failure ATN DM Anemia Elevated transaminase P: discontinue Vancomycin , continue Zosyn Add Tygacil Case was D/W microbiology lab Subjective ROS Limited/Unobtainable: Yes Neurologic: Reports: confusion, other - on restraint Allergies: Coded Allergies: No Known Allergies (Verified , 01/02/09) Objective Vital Signs Last 24 Hour Vital Signs Date Time Temp Pulse Resp B/P (MAP) Pulse Ox O2 Delivery O2 Flow Rate FiO2 09/22/17 08:00 98.4 61 18 135/70 99 Mechanical Ventilator 40 98.4 09/22/17 08:00 40 09/22/17 07:00 62 18 116/68 99 Mechanical Ventilator 40 09/22/17 06:57 63 18 100 Mechanical Ventilator 09/22/17 06:51 61 17 40 09/22/17 06:50 61 17 99 Mechanical Ventilator 40 09/22/17 06:00 99.4 67 18 123/64 99 Mechanical Ventilator 40 99.4 09/22/17 05:19 71 18 40 09/22/17 05:00 67 18 111/54 99 Mechanical Ventilator 40 09/22/17 04:00 40 09/22/17 04:00 62 09/22/17 04:00 99.8 67 17 138/66 97 Mechanical Ventilator 40 99.8 09/22/17 03:30 66 18 40 09/22/17 03:00 67 18 132/76 98 Mechanical Ventilator 40 09/22/17 02:00 99.1 65 18 135/72 97 Mechanical Ventilator 40 99.1 09/22/17 01:33 72 18 99 Mechanical Ventilator 09/22/17 01:32 66 19 98 Mechanical Ventilator 40 09/22/17 01:30 66 19 40 09/22/17 01:00 64 16 128/68 100 Mechanical Ventilator 40 09/22/17 00:02 68 09/22/17 00:00 65 17 147/69 100 Mechanical Ventilator 40 09/22/17 00:00 40 09/21/17 23:57 68 09/21/17 23:30 70 19 40 09/21/17 23:00 65 17 152/85 100 Mechanical Ventilator 40 09/21/17 22:00 68 16 145/73 100 Mechanical Ventilator 40 5/6/18 22:00 98.8 65 16 137/70 100 Mechanical Ventilator 40 98.8 5/6/18 21:30 64 16 40 5/6/18 21:00 68 16 145/73 100 Mechanical Ventilator 40 5/6/18 20:00 58 5/6/18 20:00 70 16 99 Mechanical Ventilator 5/6/18 20:00 67 16 98 Mechanical Ventilator 40 5/6/18 20:00 40 5/6/18 20:00 99.0 65 14 133/68 100 Mechanical Ventilator 40 99.0 /6/18 19:30 68 16 40 5/6/18 19:00 66 14 136/78 100 Mechanical Ventilator 40 5/6/18 18:00 66 14 156/72 100 Mechanical Ventilator 50 5/6/18 17:00 69 14 132/72 100 Mechanical Ventilator 50 5/6/18 16:42 67 16 50 5/6/18 16:00 66 5/6/18 16:00 40 5//18 16:00 66 14 147/72 100 Mechanical Ventilator 50 5/6/18 15:00 98.7 67 14 132/74 100 Mechanical Ventilator 50 98.7 /6/18 14:33 65 16 50 5/6/18 14:00 68 14 139/71 100 Mechanical Ventilator 50 5/6/18 13:00 67 14 145/74 100 Mechanical Ventilator 50 5/6/18 12:54 66 16 100 Mechanical Ventilator 50 5/6/18 12:46 50 5/6/18 12:46 66 16 50 5/6/18 12:46 66 16 100 Mechanical Ventilator 50 5/6/18 12:00 70 5/6/18 12:00 63 16 128/65 100 Mechanical Ventilator 50 5/6/18 12:00 50 5/6/18 11:00 99.0 65 16 135/66 100 Mechanical Ventilator 50 99.0 5/6/18 10:49 64 16 50 5/6/18 10:33 127/65 5/6/18 10:00 63 16 116/62 100 Mechanical Ventilator 50 5/6/18 09:08 63 16 50 Height (Feet): 5 Height (Inches): 8.00 Weight (Pounds): 197 HEENT: other - orally intubated Cardiovascular: normal rate, other - RIJ central line Abdomen: soft, non tender, other - GT feeding Extremities: no edema Neurologic/Psychiatric: other - confused Microbiology Date/Time Source Procedure Growth Status 09/19/17 21:15 Blood Blood Culture - Preliminary Resulted 09/19/17 21:10 Blood Blood Culture - Preliminary NO GROWTH AFTER 48 HOURS Resulted 09/19/17 10:11 Blood Blood Culture - Final Staphylococcus Capitis Complete 09/19/17 10:00 Blood Blood Culture - Final Staphylococcus Capitis Complete 09/20/17 05:00 Sputum Gram Stain - Final Resulted 09/20/17 05:00 Sputum Culture - Preliminary A.baumanii Complx - Mdr Proteus Mirabilis Resulted 09/19/17 10:11 Nasal Nares MRSA Culture - Final NO METHICILLIN RESISTANT STAPH AUREUS... Complete 09/20/17 14:00 Urine,Clean Catch Urine Culture - Preliminary YEAST Resulted 09/19/17 10:11 Urine,Clean Catch Urine Culture - Final Proteus Mirabilis Esbl Complete 09/19/17 10:11 Rectum VRE Culture - Final Enterococcus Faecalis - Vre Complete Laboratory Tests Test 09/21/17 11:30 09/21/17 17:00 09/22/17 04:00 09/22/17 06:58 C-Reactive Protein, Quantitative 42.8 mg/dL (0.00-0.90) H Stool Occult Blood Pending White Blood Count 12.6 K/UL (4.8-10.8) H Red Blood Count 3.40 M/UL (4.70-6.10) L Hemoglobin 9.4 G/DL (14.2-18.0) L Hematocrit 28.2 % (42.0-52.0) L Mean Corpuscular Volume 83 FL (80-99) Mean Corpuscular Hemoglobin 27.6 PG (27.0-31.0) Mean Corpuscular Hemoglobin Concent 33.3 G/DL (32.0-36.0) Red Cell Distribution Width 16.1 % (11.6-14.8) H Platelet Count 215 K/UL (150-450) Mean Platelet Volume 6.8 FL (6.5-10.1) Neutrophils (%) (Auto) 69.5 % (45.0-75.0) Lymphocytes (%) (Auto) 16.0 % (20.0-45.0) L Monocytes (%) (Auto) 5.4 % (1.0-10.0) Eosinophils (%) (Auto) 9.0 % (0.0-3.0) H Basophils (%) (Auto) 0.2 % (0.0-2.0) Sodium Level 146 MMOL/L (136-145) H Potassium Level 3.4 MMOL/L (3.5-5.1) L Chloride Level 109 MMOL/L (98-107) H Carbon Dioxide Level 28 MMOL/L (21-32) Anion Gap 9 mmol/L (5-15) Blood Urea Nitrogen 84 mg/dL (7-18) H Creatinine 2.6 MG/DL (0.55-1.30) H Estimat Glomerular Filtration Rate mL/min (>60) Glucose Level 152 MG/DL (74-106) H Uric Acid Pending Calcium Level 8.6 MG/DL (8.5-10.1) Phosphorus Level Pending Magnesium Level Pending Total Bilirubin 0.4 MG/DL (0.2-1.0) Aspartate Amino Transf (AST/SGOT) 129 U/L (15-37) H Alanine Aminotransferase (ALT/SGPT) 115 U/L (12-78) H Alkaline Phosphatase 120 U/L (46-116) H Troponin I Pending Pro-B-Type Natriuretic Peptide Pending Total Protein 7.2 G/DL (6.4-8.2) Albumin 1.4 G/DL (3.4-5.0) L Globulin 5.8 g/dL Albumin/Globulin Ratio 0.2 (1.0-2.7) L Random Vancomycin Level 21.0 ug/mL Arterial Blood pH 7.455 (7.350-7.450) Arterial Blood Partial Pressure CO2 39.8 mmHg (35.0-45.0) Arterial Blood Partial Pressure O2 77.6 mmHg (75.0-100.0) Arterial Blood HCO3 27.4 mmol/L (22.0-26.0) H Arterial Blood Oxygen Saturation 95.8 % (92.0-98.0) Arterial Blood Base Excess 3.2 Librado Test Positive Current Medications Medications (Trade) Dose Ordered Sig/Keira Route PRN Reason Start Time Stop Time Status Last Admin Dose Admin Albuterol/ Ipratropium (Albuterol/ Ipratropium) 3 ml Q4H PRN HHN Shortness of Breath 09/19/17 14:45 09/24/17 14:44 Albuterol/ Ipratropium (Albuterol/ Ipratropium) 3 ml Q6HRT HHN 09/19/17 19:00 09/24/17 18:59 09/22/17 06:50 Chlorhexidine Gluconate (Michelle-Hex 2%) 1 applic DAILY@2000 TOPIC 09/22/17 20:00 10/22/17 19:59 Dextrose 1,000 ml @ 125 mls/hr Q8H IV 09/21/17 11:00 10/21/17 10:59 09/22/17 03:24 Dextrose (Dextrose 50%) 25 ml STAT PRN IV Hypoglycemia 09/19/17 14:15 10/19/17 14:14 Dextrose (Dextrose 50%) 50 ml STAT PRN IV Hypoglycemia 09/19/17 14:15 10/19/17 14:14 Heparin Sodium (Porcine) (Heparin 5000 units/ml) 5,000 units EVERY 12 HOURS SUBQ 09/19/17 21:00 10/19/17 20:59 09/22/17 08:20 Insulin Aspart (NovoLOG) EVERY 6 HOURS SUBQ 09/22/17 00:00 10/19/17 16:29 09/22/17 05:46 Metoclopramide HCl (Reglan) 5 mg EVERY 8 HOURS GT 09/20/17 14:00 10/20/17 13:59 09/22/17 05:42 Nitroglycerin (Ntg) 1 patch Q24H TDERMAL 09/20/17 10:30 10/20/17 10:29 09/21/17 10:33 Norepinephrine Bitartrate 8 mg/ Dextrose 250 ml @ 0 mls/hr Q24H IV 09/19/17 19:45 10/19/17 19:44 09/19/17 21:01 Pantoprazole (Protonix) 40 mg EVERY 12 HOURS IVP 09/19/17 21:00 10/19/17 20:59 09/22/17 08:15 Piperacillin Sod/ Tazobactam Sod 2.25 gm/Dextrose 55 ml @ 110 mls/hr Q8HR IVPB 09/19/17 22:00 09/24/17 21:59 09/22/17 05:45 Potassium Chloride 100 ml @ 50 mls/hr Q2H IVPB 09/22/17 08:30 09/22/17 12:29 ANDRES SAVAGE September 22, 2017 09:07
[2017-09-22 09:23] LABS: PHOSPHORUS 3.7 MG/DL (2.5-4.9)
[2017-09-22] MEDS ORDERED: Sterile Water Irrig 1000ml IRRIG ONE (10:00)
[2017-09-22] MEDS ORDERED: Tubing IV Secondary IV ONE (10:00)
[2017-09-22] MEDS ORDERED: Tigecycline 100 MG in D5W 110 ML IVPB ONE (10:30)
[2017-09-22] MEDS: Nitroglycerin Patch 0.4mg TDERMAL SCH (10:48)
--- NOTE | 2017-09-22 11:13 | GI Progress Note ---
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 Taveras. Assessment/Plan Assessment - Anemia - abnormal LFT - Resp failure - Renal failure - Sepsis - CVA / (R) taylor - dysphagia / GT Recommendations - TF - check abd u/s - check OB, fu hep panel - transufse PRN - abx - s/p EGD/colon 07/2017 at [facility] (HH,polyps, diverticulosis) - fu labs The patient was seen and examined at bedside and all new and available data was reviewed in the patients chart. I agree with the above findings, impression and plan. (Patient seen earlier today. Signature stamp does not reflect patient encounter time.). - Ashley Taveras MD Subjective Gastrointestinal/Abdominal: Reports: no symptoms Objective Last 24 Hour Vital Signs Date Time Temp Pulse Resp B/P (MAP) Pulse Ox O2 Delivery O2 Flow Rate FiO2 09/22/17 10:48 135/69 09/22/17 09:05 61 16 40 09/22/17 09:00 59 16 139/76 99 Mechanical Ventilator 40 09/22/17 08:00 98.4 61 18 135/70 99 Mechanical Ventilator 40 98.4 09/22/17 08:00 60 09/22/17 08:00 40 09/22/17 07:00 62 18 116/68 99 Mechanical Ventilator 40 09/22/17 06:57 63 18 100 Mechanical Ventilator 09/22/17 06:51 61 17 40 09/22/17 06:50 61 17 99 Mechanical Ventilator 40 09/22/17 06:00 99.4 67 18 123/64 99 Mechanical Ventilator 40 99.4 09/22/17 05:19 71 18 40 09/22/17 05:00 67 18 111/54 99 Mechanical Ventilator 40 5/7/18 04:00 40 5/7/18 04:00 62 518 04:00 99.8 67 17 138/66 97 Mechanical Ventilator 40 99.8 18 03:30 66 18 40 518 03:00 67 18 132/76 98 Mechanical Ventilator 40 18 02:00 99.1 65 18 135/72 97 Mechanical Ventilator 40 99.1 09/22/17 01:33 72 18 99 Mechanical Ventilator 09/22/17 01:32 66 19 98 Mechanical Ventilator 40 09/22/17 01:30 66 19 40 18 01:00 64 16 128/68 100 Mechanical Ventilator 40 18 00:02 68 09/22/17 00:00 65 17 147/69 100 Mechanical Ventilator 40 09/22/17 00:00 40 18 23:57 68 56/18 23:30 70 19 40 5/6/18 23:00 65 17 152/85 100 Mechanical Ventilator 40 18 22:00 68 16 145/73 100 Mechanical Ventilator 40 18 22:00 98.8 65 16 137/70 100 Mechanical Ventilator 40 98.8 18 21:30 64 16 40 5/6/18 21:00 68 16 145/73 100 Mechanical Ventilator 40 6/18 20:00 58 5/6/18 20:00 70 16 99 Mechanical Ventilator 6/18 20:00 67 16 98 Mechanical Ventilator 40 /6/18 20:00 40 /6/18 20:00 99.0 65 14 133/68 100 Mechanical Ventilator 40 99.0 18 19:30 68 16 40 5/6/18 19:00 66 14 136/78 100 Mechanical Ventilator 40 5/6/18 18:00 66 14 156/72 100 Mechanical Ventilator 50 5/6/18 17:00 69 14 132/72 100 Mechanical Ventilator 50 5/6/18 16:42 67 16 50 5/6/18 16:00 66 5/6/18 16:00 40 5/6/18 16:00 66 14 147/72 100 Mechanical Ventilator 50 5/6/18 15:00 98.7 67 14 132/74 100 Mechanical Ventilator 50 98.7 5/6/18 14:33 65 16 50 5/6/18 14:00 68 14 139/71 100 Mechanical Ventilator 50 09/21/17 13:00 67 14 145/74 100 Mechanical Ventilator 50 09/21/17 12:54 66 16 100 Mechanical Ventilator 50 09/21/17 12:46 50 09/21/17 12:46 66 16 50 09/21/17 12:46 66 16 100 Mechanical Ventilator 50 09/21/17 12:00 70 09/21/17 12:00 63 16 128/65 100 Mechanical Ventilator 50 09/21/17 12:00 50 Intake and Output 09/21/17 09/22/17 19:00 07:00 Intake Total 1390 ml 2960 ml Output Total 810 ml 660 ml Balance 580 ml 2300 ml Free Water 50 ml IV Total 1030 ml 2550 ml Tube Feeding 360 ml 360 ml Output Urine Total 810 ml 660 ml # Bowel Movements 4 Laboratory Tests Test 09/21/17 11:30 09/21/17 17:00 09/22/17 04:00 09/22/17 06:58 C-Reactive Protein, Quantitative 42.8 mg/dL (0.00-0.90) H Stool Occult Blood Positive (NEGATIVE) White Blood Count 12.6 K/UL (4.8-10.8) H Red Blood Count 3.40 M/UL (4.70-6.10) L Hemoglobin 9.4 G/DL (14.2-18.0) L Hematocrit 28.2 % (42.0-52.0) L Mean Corpuscular Volume 83 FL (80-99) Mean Corpuscular Hemoglobin 27.6 PG (27.0-31.0) Mean Corpuscular Hemoglobin Concent 33.3 G/DL (32.0-36.0) Red Cell Distribution Width 16.1 % (11.6-14.8) H Platelet Count 215 K/UL (150-450) Mean Platelet Volume 6.8 FL (6.5-10.1) Neutrophils (%) (Auto) 69.5 % (45.0-75.0) Lymphocytes (%) (Auto) 16.0 % (20.0-45.0) L Monocytes (%) (Auto) 5.4 % (1.0-10.0) Eosinophils (%) (Auto) 9.0 % (0.0-3.0) H Basophils (%) (Auto) 0.2 % (0.0-2.0) Sodium Level 146 MMOL/L (136-145) H Potassium Level 3.4 MMOL/L (3.5-5.1) L Chloride Level 109 MMOL/L (98-107) H Carbon Dioxide Level 28 MMOL/L (21-32) Anion Gap 9 mmol/L (5-15) Blood Urea Nitrogen 84 mg/dL (7-18) H Creatinine 2.6 MG/DL (0.55-1.30) H Estimat Glomerular Filtration Rate mL/min (>60) Glucose Level 152 MG/DL (74-106) H Uric Acid 6.0 MG/DL (2.6-7.2) Calcium Level 8.6 MG/DL (8.5-10.1) Phosphorus Level 3.7 MG/DL (2.5-4.9) Magnesium Level 3.0 MG/DL (1.8-2.4) H Total Bilirubin 0.4 MG/DL (0.2-1.0) Aspartate Amino Transf (AST/SGOT) 129 U/L (15-37) H Alanine Aminotransferase (ALT/SGPT) 115 U/L (12-78) H Alkaline Phosphatase 120 U/L (46-116) H Troponin I 0.250 ng/mL (0.000-0.056) Pro-B-Type Natriuretic Peptide 5972 pg/mL (0-125) H Total Protein 7.2 G/DL (6.4-8.2) Albumin 1.4 G/DL (3.4-5.0) L Globulin 5.8 g/dL Albumin/Globulin Ratio 0.2 (1.0-2.7) L Random Vancomycin Level 21.0 ug/mL Arterial Blood pH 7.455 (7.350-7.450) Arterial Blood Partial Pressure CO2 39.8 mmHg (35.0-45.0) Arterial Blood Partial Pressure O2 77.6 mmHg (75.0-100.0) Arterial Blood HCO3 27.4 mmol/L (22.0-26.0) H Arterial Blood Oxygen Saturation 95.8 % (92.0-98.0) Arterial Blood Base Excess 3.2 Librado Test Positive Test 09/22/17 10:20 Vancomycin Level Trough Pending Height (Feet): 5 Height (Inches): 8.00 Weight (Pounds): 197 General Appearance: WD/WN, no apparent distress, alert Cardiovascular: normal rate Respiratory/Chest: normal breath sounds, no respiratory distress Abdominal Exam: normal bowel sounds, non tender, soft Extremities: non-tender Delfina Francois N.P. September 22, 2017 11:13 MELISSA TAVERAS September 23, 2017 13:00
--- NOTE | 2017-09-22 11:24 | Internal Med Progress Note ---
Subjective Date of Service: September 22, 2017 Physician Name Cesario Chacon Attending Physician Cesario Chacon Current Medications Medications (Trade) Dose Ordered Sig/Keira Route PRN Reason Start Time Stop Time Status Last Admin Dose Admin Albuterol/ Ipratropium (Albuterol/ Ipratropium) 3 ml Q4H PRN HHN Shortness of Breath 09/19/17 14:45 09/24/17 14:44 Albuterol/ Ipratropium (Albuterol/ Ipratropium) 3 ml Q6HRT HHN 09/19/17 19:00 09/24/17 18:59 09/22/17 06:50 Chlorhexidine Gluconate (Michelle-Hex 2%) 1 applic DAILY@2000 TOPIC 09/22/17 20:00 10/22/17 19:59 Dextrose 1,000 ml @ 125 mls/hr Q8H IV 09/21/17 11:00 10/21/17 10:59 09/22/17 10:49 Dextrose (Dextrose 50%) 25 ml STAT PRN IV Hypoglycemia 09/19/17 14:15 10/19/17 14:14 Dextrose (Dextrose 50%) 50 ml STAT PRN IV Hypoglycemia 09/19/17 14:15 10/19/17 14:14 Heparin Sodium (Porcine) (Heparin 5000 units/ml) 5,000 units EVERY 12 HOURS SUBQ 09/19/17 21:00 10/19/17 20:59 09/22/17 08:20 Insulin Aspart (NovoLOG) EVERY 6 HOURS SUBQ 09/22/17 00:00 10/19/17 16:29 09/22/17 05:46 Metoclopramide HCl (Reglan) 5 mg EVERY 8 HOURS GT 09/20/17 14:00 10/20/17 13:59 09/22/17 05:42 Nitroglycerin (Ntg) 1 patch Q24H TDERMAL 09/20/17 10:30 10/20/17 10:29 09/22/17 10:48 Norepinephrine Bitartrate 8 mg/ Dextrose 250 ml @ 0 mls/hr Q24H IV 09/19/17 19:45 10/19/17 19:44 09/19/17 21:01 Pantoprazole (Protonix) 40 mg EVERY 12 HOURS IVP 09/19/17 21:00 10/19/17 20:59 09/22/17 08:15 Piperacillin Sod/ Tazobactam Sod 2.25 gm/Dextrose 55 ml @ 110 mls/hr Q8HR IVPB 09/19/17 22:00 09/24/17 21:59 09/22/17 05:45 Potassium Chloride 100 ml @ 50 mls/hr Q2H IVPB 09/22/17 08:30 09/22/17 12:29 09/22/17 10:47 Tigecycline 100 mg/Dextrose 110 ml @ 110 mls/hr ONCE ONCE IVPB 09/22/17 10:30 09/22/17 11:29 Tigecycline 50 mg/ Dextrose 110 ml @ 220 mls/hr Q12H IVPB 09/22/17 22:00 09/29/17 21:59 Allergies: Coded Allergies: No Known Allergies (Verified , 01/02/09) ROS Limited/Unobtainable: Yes - intubated Subjective remains intubated, off pressor Objective Last Vital Signs Date Time Temp Pulse Resp B/P (MAP) Pulse Ox O2 Delivery O2 Flow Rate FiO2 09/22/17 11:19 62 17 40 09/22/17 11:00 138/68 99 Mechanical Ventilator 09/22/17 08:00 98.4 98.4 09/20/17 19:20 15.0 General Appearance: WD/WN, other - intubated Cardiovascular: normal rate, systolic murmur Respiratory/Chest: rhonchi - bilaterally Abdomen: normal bowel sounds, non tender, soft, no mass Genitourinary/Rectal: other - elder Extremities: non-tender, normal inspection Edema: trace edema Neurologic: other - intubated, not following command Laboratory Tests Test 09/21/17 11:30 09/21/17 17:00 09/22/17 04:00 09/22/17 06:58 C-Reactive Protein, Quantitative 42.8 mg/dL (0.00-0.90) H Stool Occult Blood Positive (NEGATIVE) White Blood Count 12.6 K/UL (4.8-10.8) H Red Blood Count 3.40 M/UL (4.70-6.10) L Hemoglobin 9.4 G/DL (14.2-18.0) L Hematocrit 28.2 % (42.0-52.0) L Mean Corpuscular Volume 83 FL (80-99) Mean Corpuscular Hemoglobin 27.6 PG (27.0-31.0) Mean Corpuscular Hemoglobin Concent 33.3 G/DL (32.0-36.0) Red Cell Distribution Width 16.1 % (11.6-14.8) H Platelet Count 215 K/UL (150-450) Mean Platelet Volume 6.8 FL (6.5-10.1) Neutrophils (%) (Auto) 69.5 % (45.0-75.0) Lymphocytes (%) (Auto) 16.0 % (20.0-45.0) L Monocytes (%) (Auto) 5.4 % (1.0-10.0) Eosinophils (%) (Auto) 9.0 % (0.0-3.0) H Basophils (%) (Auto) 0.2 % (0.0-2.0) Sodium Level 146 MMOL/L (136-145) H Potassium Level 3.4 MMOL/L (3.5-5.1) L Chloride Level 109 MMOL/L (98-107) H Carbon Dioxide Level 28 MMOL/L (21-32) Anion Gap 9 mmol/L (5-15) Blood Urea Nitrogen 84 mg/dL (7-18) H Creatinine 2.6 MG/DL (0.55-1.30) H Estimat Glomerular Filtration Rate mL/min (>60) Glucose Level 152 MG/DL (74-106) H Uric Acid 6.0 MG/DL (2.6-7.2) Calcium Level 8.6 MG/DL (8.5-10.1) Phosphorus Level 3.7 MG/DL (2.5-4.9) Magnesium Level 3.0 MG/DL (1.8-2.4) H Total Bilirubin 0.4 MG/DL (0.2-1.0) Aspartate Amino Transf (AST/SGOT) 129 U/L (15-37) H Alanine Aminotransferase (ALT/SGPT) 115 U/L (12-78) H Alkaline Phosphatase 120 U/L (46-116) H Troponin I 0.250 ng/mL (0.000-0.056) Pro-B-Type Natriuretic Peptide 5972 pg/mL (0-125) H Total Protein 7.2 G/DL (6.4-8.2) Albumin 1.4 G/DL (3.4-5.0) L Globulin 5.8 g/dL Albumin/Globulin Ratio 0.2 (1.0-2.7) L Random Vancomycin Level 21.0 ug/mL Arterial Blood pH 7.455 (7.350-7.450) Arterial Blood Partial Pressure CO2 39.8 mmHg (35.0-45.0) Arterial Blood Partial Pressure O2 77.6 mmHg (75.0-100.0) Arterial Blood HCO3 27.4 mmol/L (22.0-26.0) H Arterial Blood Oxygen Saturation 95.8 % (92.0-98.0) Arterial Blood Base Excess 3.2 Librado Test Positive Test 09/22/17 10:20 Vancomycin Level Trough Pending Microbiology Date/Time Source Procedure Growth Status 09/19/17 21:15 Blood Blood Culture - Preliminary Resulted 09/19/17 21:10 Blood Blood Culture - Preliminary NO GROWTH AFTER 48 HOURS Resulted 09/20/17 05:00 Sputum Gram Stain - Final Resulted 09/20/17 05:00 Sputum Culture - Preliminary A.baumanii Complx - Mdr Proteus Mirabilis Resulted 09/20/17 14:00 Urine,Clean Catch Urine Culture - Preliminary YEAST Resulted Intake and Output 09/21/17 09/22/17 19:00 07:00 Intake Total 1390 ml 2960 ml Output Total 810 ml 660 ml Balance 580 ml 2300 ml Free Water 50 ml IV Total 1030 ml 2550 ml Tube Feeding 360 ml 360 ml Output Urine Total 810 ml 660 ml # Bowel Movements 4 Assessment/Plan Status: stable, progressing Assessment/Plan MPRESSION: 1. Acute respiratory failure, intubated. 2. Pneumonia likely aspiration pneumonia versus healthcare associated pneumonia. 3. Severe dehydration. 4. Hypernatremia. 5. Hyperkalemia. 6. Acute on chronic renal failure. 7. Uremia due to prerenal. 8. Transaminitis. 9. Elevated lipase. 10. Severe protein-calorie malnutrition. 11. History of chronic CVA with right hemiparesis. 13. History of organic brain disease. 14. History of advanced dementia. 15. Status post gastrostomy tube placement. 16. History of neurogenic bladder/chronic indwelling Elder catheter. 17. Hyperlipidemia. 18. Coronary artery disease. PLAN: 1. intensive care unit.. wean vent as tolerated 2. intravenous fluid. 3. Renal and Pulmonary consult. 4. Pulmonary nebulizer. 5. off pressor for now 6. Trend troponin. 7. DVT and GI prophylaxis. 8. Broad-spectrum antibiotics. 9. Followup cultures. 10. 2D echo. noted 11. Continue with the Elder catheter. Aspiration precaution. electrolytes replete as indicated. enteral feeding per GI K replete 40 min spent in critical care in ICU d/w regulatory affairs consultant Cesario Chacon MD [phone] CESARIO CHACON September 22, 2017 11:24
--- NOTE | 2017-09-22 13:40 | Pulmonolgy Critical Care Note ---
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 (4) Sepsis (5) UTI (urinary tract infection) Assessment & Plan: ESLB proteus (6) Renal failure (7) Feeding by G-tube (8) Acute encephalopathy (9) HCAP (healthcare-associated pneumonia) (10) s/p multiple lacunar strokes, old (11) recent L MCA ischemic stroke (12) Bacterial infection due to Staphylococcus Assessment & Plan: S capitis 5/4, repeat CX's NG Respiratory: adjust tidal volume - decreased TV to 450, monitor respiratory rate - continue 16, adjust FIO2 - titrate down to keep SaO2 > 90%, continue PEEP 5, CXR, weaning trial - SBT in am, d/w RT, other - Optimize pulmonary hygiene/mobilize as tolerated, RTC and PRN DUOnebs Cardiac: continue to monitor HR/BP, other - Consdider cardiology evaluation Renal: F/U I&O, decrease IV fluid - Consider decrease IVF, will d/w renal Infectious Disease: check cultures, continue antibiotics - per ID, Zosyn and Tigacil Gastrointestinal: continue feedings/current rate, abdominal imaging - F/U ABD US, other - F/U GI recs Endocrine: monitor blood sugar, continue sliding scale insulin Hematologic: monitor H/H Neurologic: keep patient comfortable Prophylaxis: Protonix, Heparin Disposition: keep in ICU Time Spent (Minutes): other - Family still discussing code status Notes Reviewed: policy and planning manager, renal, ID, GI Discussed with: nurses, consultants, family member Critical Care - Objective Last 24 Hour Vital Signs Date Time Temp Pulse Resp B/P (MAP) Pulse Ox O2 Delivery O2 Flow Rate FiO2 09/22/17 13:23 69 20 99 Mechanical Ventilator 40 09/22/17 13:00 72 16 130/78 99 Mechanical Ventilator 40 09/22/17 12:00 40 09/22/17 12:00 60 09/22/17 12:00 98.5 60 17 125/76 100 Mechanical Ventilator 40 98.5 09/22/17 11:19 62 17 40 09/22/17 11:00 61 16 138/68 99 Mechanical Ventilator 40 09/22/17 10:48 135/69 09/22/17 10:00 60 16 131/72 99 Mechanical Ventilator 40 09/22/17 09:05 61 16 40 09/22/17 09:00 59 16 139/76 99 Mechanical Ventilator 40 09/22/17 08:00 98.4 61 18 135/70 99 Mechanical Ventilator 40 98.4 09/22/17 08:00 60 09/22/17 08:00 40 09/22/17 07:00 62 18 116/68 99 Mechanical Ventilator 40 09/22/17 06:57 63 18 100 Mechanical Ventilator 09/22/17 06:51 61 17 40 09/22/17 06:50 61 17 99 Mechanical Ventilator 40 09/22/17 06:00 99.4 67 18 123/64 99 Mechanical Ventilator 40 99.4 09/22/17 05:19 71 18 40 09/22/17 05:00 67 18 111/54 99 Mechanical Ventilator 40 09/22/17 04:00 40 09/22/17 04:00 62 09/22/17 04:00 99.8 67 17 138/66 97 Mechanical Ventilator 40 99.8 09/22/17 03:30 66 18 40 09/22/17 03:00 67 18 132/76 98 Mechanical Ventilator 40 09/22/17 02:00 99.1 65 18 135/72 97 Mechanical Ventilator 40 99.1 09/22/17 01:33 72 18 99 Mechanical Ventilator 09/22/17 01:32 66 19 98 Mechanical Ventilator 40 09/22/17 01:30 66 19 40 09/22/17 01:00 64 16 128/68 100 Mechanical Ventilator 40 09/22/17 00:02 68 09/22/17 00:00 65 17 147/69 100 Mechanical Ventilator 40 09/22/17 00:00 40 09/21/17 23:57 68 09/21/17 23:30 70 19 40 09/21/17 23:00 65 17 152/85 100 Mechanical Ventilator 40 09/21/17 22:00 68 16 145/73 100 Mechanical Ventilator 40 09/21/17 22:00 98.8 65 16 137/70 100 Mechanical Ventilator 40 98.8 09/21/17 21:30 64 16 40 09/21/17 21:00 68 16 145/73 100 Mechanical Ventilator 40 09/21/17 20:00 58 09/21/17 20:00 70 16 99 Mechanical Ventilator 09/21/17 20:00 67 16 98 Mechanical Ventilator 40 09/21/17 20:00 40 09/21/17 20:00 99.0 65 14 133/68 100 Mechanical Ventilator 40 99.0 09/21/17 19:30 68 16 40 09/21/17 19:00 66 14 136/78 100 Mechanical Ventilator 40 09/21/17 18:00 66 14 156/72 100 Mechanical Ventilator 50 09/21/17 17:00 69 14 132/72 100 Mechanical Ventilator 50 09/21/17 16:42 67 16 50 09/21/17 16:00 66 09/21/17 16:00 40 09/21/17 16:00 66 14 147/72 100 Mechanical Ventilator 50 09/21/17 15:00 98.7 67 14 132/74 100 Mechanical Ventilator 50 98.7 09/21/17 14:33 65 16 50 09/21/17 14:00 68 14 139/71 100 Mechanical Ventilator 50 Status: awake, other - intubated Condition: critical HEENT: atraumatic, normocephalic, other - ETT Neck: other - R IJ CVC Lungs: rhonchi - scattered Heart: HR/BP stable Abdomen: soft, non-tender, active bowel sounds, feeding tube Extremities: no C/C/E Decubiti: location - sacram, penis, stage - sacral 2 Micro: Microbiology Date/Time Source Procedure Growth Status 09/19/17 21:15 Blood Blood Culture - Preliminary Resulted 09/19/17 21:10 Blood Blood Culture - Preliminary NO GROWTH AFTER 48 HOURS Resulted 09/20/17 05:00 Sputum Gram Stain - Final Resulted 09/20/17 05:00 Sputum Culture - Preliminary A.baumanii Complx - Mdr Proteus Mirabilis Resulted 09/20/17 14:00 Urine,Clean Catch Urine Culture - Preliminary YEAST Resulted Accucheck: 227 Blood Sugars: BS not controlled Critical Care - Subjective ROS Limited/Unobtainable: Yes ICU Day: 4 Intubation Day: 4 Interval Events: Failed SBT O2 needs stable Repeat BCx's NG Sputum with MDR acinetobacter and proteus, UCx with proteus No sig secretions Awake and alert Per daughter @ bedside, MS @ baseline Condition: critical IV Access: central - R IJ placed 09/19 EKG Rhythm: Sinus Rhythm FI02: 40 Vent Support Breath Rate: 16 Vent Support Mode: AC Vent Tidal Volume: 600 Sputum Amount: None PEEP: 5.0 PIP: 28 Fluids: D5W @ 125 Tube Feeding Amount: 30 I&O: Intake and Output 09/21/17 09/22/17 19:00 07:00 Intake Total 1390 ml 2960 ml Output Total 810 ml 660 ml Balance 580 ml 2300 ml Free Water 50 ml IV Total 1030 ml 2550 ml Tube Feeding 360 ml 360 ml Output Urine Total 810 ml 660 ml # Bowel Movements 4 CXR: None since admission ET-Tube: 8.0 ET Position: 25 Labs: Laboratory Tests Test 09/21/17 17:00 09/22/17 04:00 09/22/17 06:58 09/22/17 10:20 Stool Occult Blood Positive (NEGATIVE) White Blood Count 12.6 K/UL (4.8-10.8) H Red Blood Count 3.40 M/UL (4.70-6.10) L Hemoglobin 9.4 G/DL (14.2-18.0) L Hematocrit 28.2 % (42.0-52.0) L Mean Corpuscular Volume 83 FL (80-99) Mean Corpuscular Hemoglobin 27.6 PG (27.0-31.0) Mean Corpuscular Hemoglobin Concent 33.3 G/DL (32.0-36.0) Red Cell Distribution Width 16.1 % (11.6-14.8) H Platelet Count 215 K/UL (150-450) Mean Platelet Volume 6.8 FL (6.5-10.1) Neutrophils (%) (Auto) 69.5 % (45.0-75.0) Lymphocytes (%) (Auto) 16.0 % (20.0-45.0) L Monocytes (%) (Auto) 5.4 % (1.0-10.0) Eosinophils (%) (Auto) 9.0 % (0.0-3.0) H Basophils (%) (Auto) 0.2 % (0.0-2.0) Sodium Level 146 MMOL/L (136-145) H Potassium Level 3.4 MMOL/L (3.5-5.1) L Chloride Level 109 MMOL/L (98-107) H Carbon Dioxide Level 28 MMOL/L (21-32) Anion Gap 9 mmol/L (5-15) Blood Urea Nitrogen 84 mg/dL (7-18) H Creatinine 2.6 MG/DL (0.55-1.30) H Estimat Glomerular Filtration Rate mL/min (>60) Glucose Level 152 MG/DL (74-106) H Uric Acid 6.0 MG/DL (2.6-7.2) Calcium Level 8.6 MG/DL (8.5-10.1) Phosphorus Level 3.7 MG/DL (2.5-4.9) Magnesium Level 3.0 MG/DL (1.8-2.4) H Total Bilirubin 0.4 MG/DL (0.2-1.0) Aspartate Amino Transf (AST/SGOT) 129 U/L (15-37) H Alanine Aminotransferase (ALT/SGPT) 115 U/L (12-78) H Alkaline Phosphatase 120 U/L (46-116) H Troponin I 0.250 ng/mL (0.000-0.056) Pro-B-Type Natriuretic Peptide 5972 pg/mL (0-125) H Total Protein 7.2 G/DL (6.4-8.2) Albumin 1.4 G/DL (3.4-5.0) L Globulin 5.8 g/dL Albumin/Globulin Ratio 0.2 (1.0-2.7) L Random Vancomycin Level 21.0 ug/mL Arterial Blood pH 7.455 (7.350-7.450) Arterial Blood Partial Pressure CO2 39.8 mmHg (35.0-45.0) Arterial Blood Partial Pressure O2 77.6 mmHg (75.0-100.0) Arterial Blood HCO3 27.4 mmol/L (22.0-26.0) H Arterial Blood Oxygen Saturation 95.8 % (92.0-98.0) Arterial Blood Base Excess 3.2 Librado Test Positive Vancomycin Level Trough 19.1 ug/mL (5.0-12.0) H CHRISTINA KIDD M.D. September 22, 2017 13:40
--- NOTE | 2017-09-22 14:57 | Diagnostic Imaging Report ---
Indication: Cough Comparison: 09/19/2017, 09/21/2017 A single view chest radiograph was obtained. Findings: Patchy ill-defined infiltrate demonstrated in the right perihilar upper lobe region not seen to a change from 09/21/2017. Endotracheal tube, right jugular catheter appear in good position. There is also retrocardiac infiltrate present. Heart size is normal. IMPRESSION: No change from the prior day. Evidence of bilateral pneumonia
--- NOTE | 2017-09-22 15:12 | Nephrology Progress Note ---
Assessment/Plan Problem List: (1) ATN (acute tubular necrosis) (2) Septic shock Assessment Acute Renal failure- Cr lower ? Underlying CKD Component of dehydration, Pre renal state and Hypernatremia Acute respiratory failure, Aspiartion Pneumonia, UTI Septic Shock H/O Multiple Strokes Anemia Elevated Troponin Hyperglycemia PEG Plan transfused add isordil Pulm support Hydrate- avoid nephrotoxics Monitor renal parameters Hemodynamic support IV iron Nitro and asa GT feeding Per orders Subjective ROS Limited/Unobtainable: Yes Objective Objective Last 24 Hour Vital Signs Date Time Temp Pulse Resp B/P (MAP) Pulse Ox O2 Delivery O2 Flow Rate FiO2 09/22/17 14:00 63 19 131/75 99 Mechanical Ventilator 40 09/22/17 13:36 73 18 100 Mechanical Ventilator 09/22/17 13:24 69 20 40 09/22/17 13:23 69 20 99 Mechanical Ventilator 40 09/22/17 13:00 72 16 130/78 99 Mechanical Ventilator 40 09/22/17 12:00 40 09/22/17 12:00 60 09/22/17 12:00 98.5 60 17 125/76 100 Mechanical Ventilator 40 98.5 09/22/17 11:19 62 17 40 09/22/17 11:00 61 16 138/68 99 Mechanical Ventilator 40 09/22/17 10:48 135/69 09/22/17 10:00 60 16 131/72 99 Mechanical Ventilator 40 09/22/17 09:05 61 16 40 09/22/17 09:00 59 16 139/76 99 Mechanical Ventilator 40 09/22/17 08:00 98.4 61 18 135/70 99 Mechanical Ventilator 40 98.4 09/22/17 08:00 60 09/22/17 08:00 40 09/22/17 07:00 62 18 116/68 99 Mechanical Ventilator 40 09/22/17 06:57 63 18 100 Mechanical Ventilator 09/22/17 06:51 61 17 40 09/22/17 06:50 61 17 99 Mechanical Ventilator 40 09/22/17 06:00 99.4 67 18 123/64 99 Mechanical Ventilator 40 99.4 09/22/17 05:19 71 18 40 09/22/17 05:00 67 18 111/54 99 Mechanical Ventilator 40 09/22/17 04:00 40 09/22/17 04:00 62 09/22/17 04:00 99.8 67 17 138/66 97 Mechanical Ventilator 40 99.8 09/22/17 03:30 66 18 40 09/22/17 03:00 67 18 132/76 98 Mechanical Ventilator 40 09/22/17 02:00 99.1 65 18 135/72 97 Mechanical Ventilator 40 99.1 09/22/17 01:33 72 18 99 Mechanical Ventilator 09/22/17 01:32 66 19 98 Mechanical Ventilator 40 09/22/17 01:30 66 19 40 09/22/17 01:00 64 16 128/68 100 Mechanical Ventilator 40 09/22/17 00:02 68 09/22/17 00:00 65 17 147/69 100 Mechanical Ventilator 40 09/22/17 00:00 40 09/21/17 23:57 68 09/21/17 23:30 70 19 40 09/21/17 23:00 65 17 152/85 100 Mechanical Ventilator 40 09/21/17 22:00 68 16 145/73 100 Mechanical Ventilator 40 09/21/17 22:00 98.8 65 16 137/70 100 Mechanical Ventilator 40 98.8 09/21/17 21:30 64 16 40 09/21/17 21:00 68 16 145/73 100 Mechanical Ventilator 40 09/21/17 20:00 58 18 20:00 70 16 99 Mechanical Ventilator 09/21/17 20:00 67 16 98 Mechanical Ventilator 40 09/21/17 20:00 40 18 20:00 99.0 65 14 133/68 100 Mechanical Ventilator 40 99.0 09/21/17 19:30 68 16 40 18 19:00 66 14 136/78 100 Mechanical Ventilator 40 09/21/17 18:00 66 14 156/72 100 Mechanical Ventilator 50 18 17:00 69 14 132/72 100 Mechanical Ventilator 50 09/21/18 16:42 67 16 50 18 16:00 66 18 16:00 40 18 16:00 66 14 147/72 100 Mechanical Ventilator 50 Intake and Output 6/18 18 19:00 07:00 Intake Total 1390 ml 2960 ml Output Total 810 ml 660 ml Balance 580 ml 2300 ml Free Water 50 ml IV Total 1030 ml 2550 ml Tube Feeding 360 ml 360 ml Output Urine Total 810 ml 660 ml # Bowel Movements 4 Laboratory Tests 09/21/17 17:00: Stool Occult Blood Positive 09/22/17 04:00: White Blood Count 12.6H, Red Blood Count 3.40L, Hemoglobin 9.4L, Hematocrit 28.2L, Mean Corpuscular Volume 83, Mean Corpuscular Hemoglobin 27.6, Mean Corpuscular Hemoglobin Concent 33.3, Red Cell Distribution Width 16.1H, Platelet Count 215, Mean Platelet Volume 6.8, Neutrophils (%) (Auto) 69.5, Lymphocytes (%) (Auto) 16.0L, Monocytes (%) (Auto) 5.4, Eosinophils (%) (Auto) 9.0H, Basophils (%) (Auto) 0.2, Sodium Level 146H, Potassium Level 3.4L, Chloride Level 109H, Carbon Dioxide Level 28, Anion Gap 9, Blood Urea Nitrogen 84H, Creatinine 2.6H, Estimat Glomerular Filtration Rate , Glucose Level 152H, Uric Acid 6.0, Calcium Level 8.6, Phosphorus Level 3.7, Magnesium Level 3.0H, Total Bilirubin 0.4, Aspartate Amino Transf (AST/SGOT) 129H, Alanine Aminotransferase (ALT/SGPT) 115H, Alkaline Phosphatase 120H, Troponin I 0.250H, Pro-B-Type Natriuretic Peptide 5972H, Total Protein 7.2, Albumin 1.4L, Globulin 5.8, Albumin/Globulin Ratio 0.2L, Random Vancomycin Level 21.0 09/22/17 06:58: Arterial Blood pH 7.455H, Arterial Blood Partial Pressure CO2 39.8, Arterial Blood Partial Pressure O2 77.6, Arterial Blood HCO3 27.4H, Arterial Blood Oxygen Saturation 95.8, Arterial Blood Base Excess 3.2, Librado Test Positive 09/22/17 10:20: Vancomycin Level Trough 19.1H Height (Feet): 5 Height (Inches): 8.00 Weight (Pounds): 197 General Appearance: no apparent distress Cardiovascular: tachycardia Respiratory/Chest: decreased breath sounds Abdomen: distended ROSE MARY REID September 22, 2017 15:12
[2017-09-22] MEDS: Dyna-Hex 2% Top Sol 2oz TOPIC SCH (20:06)
[2017-09-22] MEDS: Tigecycline 50 MG in D5W 110 ML IVPB SCH (21:20)
[2017-09-23] VITALS (24 sets, daily range): BP systolic 108–136; BP diastolic 60–79
[2017-09-23] MEDS: Albuterol/Ipratropium 3ml neb HHN SCH ×4 (01:00→19:49)
[2017-09-23 04:34] LABS: BASOPHILS % (AUTO) 0.3 % (0.0-2.0); EOSINOPHILS % (AUTO) 9.3 % (0.0-3.0); HEMATOCRIT 27.5 % (42.0-52.0); HEMOGLOBIN 9.4 G/DL (14.2-18.0); LYMPHOCYTES % (AUTO) 11.5 % (20.0-45.0); MEAN CORPUSCULAR VOLUME 83 FL (80-99); MONOCYTES % (AUTO) 4.7 % (1.0-10.0); NEUTROPHILS % (AUTO) 74.2 % (45.0-75.0); PLATELET COUNT 217 K/UL (150-450); RED CELL DISTRIBUTION WIDTH 15.8 % (11.6-14.8); WHITE BLOOD COUNT 13.6 K/UL (4.8-10.8)
[2017-09-23 04:44] LABS: ALANINE AMINOTRANSFERASE 104 U/L (12-78); ALBUMIN 1.4 G/DL (3.4-5.0); ALBUMIN/GLOBULIN RATIO 0.2 (1.0-2.7); ALKALINE PHOSPHATASE 118 U/L (46-116); ANION GAP 6 mmol/L (5-15); ASPARTATE AMINO TRANSFERASE 109 U/L (15-37); BILIRUBIN,TOTAL 0.5 MG/DL (0.2-1.0); BLOOD UREA NITROGEN 86 mg/dL (7-18); CALCIUM 8.6 MG/DL (8.5-10.1); CARBON DIOXIDE 29 MMOL/L (21-32); CHLORIDE 105 MMOL/L (98-107); CREATININE 2.5 MG/DL (0.55-1.30); PHOSPHORUS 4.8 MG/DL (2.5-4.9); POTASSIUM 4.1 MMOL/L (3.5-5.1); SODIUM 140 MMOL/L (136-145)
[2017-09-23] MEDS: Piperacillin/Tazobactam 2.25 GM in D5W 55 ML IVPB SCH ×3 (06:16→22:01)
[2017-09-23] MEDS: Metoclopramide 10mg/10ml Liq GT SCH ×3 (06:16→22:02)
[2017-09-23] MEDS: NovoLOG Insulin Flexpen SUBQ SCH ×4 (06:17→23:53)
[2017-09-23] MEDS: Pantoprazole Inj IVP SCH ×2 (09:36→20:35)
[2017-09-23] MEDS: Nitroglycerin Patch 0.4mg TDERMAL SCH (09:37)
[2017-09-23] MEDS: Heparin 5000 units/ml inj SUBQ SCH ×2 (09:38→20:37)
[2017-09-23] MEDS: Tigecycline 50 MG in D5W 110 ML IVPB SCH (09:39)
--- NOTE | 2017-09-23 11:12 | Infectious Diseases Prog Note ---
Assessment/Plan Assessment/Plan A: Sepsis/septic shock off pressors Bacteremia with Staph capitis/ contamination Pneumonia with MDR Acinetobacter & Proteus UTI with Proteus Respiratory failure ATN DM Anemia Elevated transaminase P: continue Zosyn Change Tygacil to Minocycline & Colistin inhaler Subjective ROS Limited/Unobtainable: Yes Respiratory: Reports: other - failed weaning Neurologic: Reports: other - more alert Allergies: Coded Allergies: No Known Allergies (Verified , 01/02/09) Objective Vital Signs Last 24 Hour Vital Signs Date Time Temp Pulse Resp B/P (MAP) Pulse Ox O2 Delivery O2 Flow Rate FiO2 09/23/17 10:00 99.0 61 20 124/78 98 Mechanical Ventilator 40 99.0 09/23/17 09:44 99 09/23/17 09:37 124/70 09/23/17 09:28 69 16 40 09/23/17 09:00 68 20 114/63 99 Mechanical Ventilator 40 09/23/17 08:15 40 09/23/17 08:00 65 09/23/17 08:00 40 09/23/17 08:00 70 20 119/64 98 Mechanical Ventilator 40 09/23/17 07:39 40 09/23/17 07:35 68 16 100 Mechanical Ventilator 09/23/17 07:29 66 16 40 09/23/17 07:29 70 16 100 Mechanical Ventilator 40 09/23/17 07:00 66 25 114/69 98 Mechanical Ventilator 40 09/23/17 06:15 117/68 09/23/17 06:00 99.0 69 22 123/68 99 Mechanical Ventilator 40 99.0 09/23/17 05:19 73 24 40 09/23/17 05:00 71 25 117/68 98 Mechanical Ventilator 40 09/23/17 04:27 97 09/23/17 04:00 40 09/23/17 04:00 98.4 100 24 129/74 100 Mechanical Ventilator 40 98.4 09/23/17 03:14 89 23 40 09/23/17 03:00 77 22 118/74 97 Mechanical Ventilator 40 09/23/17 02:00 65 25 108/65 97 Mechanical Ventilator 40 09/23/17 01:27 102 38 40 09/23/17 01:27 Mechanical Ventilator 40 09/23/17 01:27 Mechanical Ventilator 40 09/23/17 01:00 78 15 130/73 98 Mechanical Ventilator 40 09/23/17 00:00 69 09/23/17 00:00 99.4 80 29 136/79 98 Mechanical Ventilator 40 99.4 09/22/17 23:47 123/67 09/22/17 23:19 87 24 40 09/22/17 23:00 78 15 130/73 98 Mechanical Ventilator 40 09/22/17 22:00 84 15 124/70 99 Mechanical Ventilator 40 09/22/17 21:24 71 16 40 09/22/17 21:00 77 21 119/67 99 Mechanical Ventilator 40 09/22/17 20:00 40 09/22/17 20:00 98.6 62 16 123/67 100 Mechanical Ventilator 40 98.6 09/22/17 20:00 67 09/22/17 19:31 125/65 09/22/17 19:26 67 35 97 Mechanical Ventilator 09/22/17 19:23 62 28 40 09/22/17 19:20 62 28 98 Mechanical Ventilator 40 09/22/17 19:00 63 16 125/65 99 Mechanical Ventilator 40 09/22/17 18:00 60 27 141/65 98 Mechanical Ventilator 40 09/22/17 17:40 120/69 09/22/17 17:24 60 28 40 09/22/17 17:00 62 26 117/75 100 Mechanical Ventilator 40 09/22/17 16:00 64 09/22/17 16:00 40 09/22/17 16:00 98.4 26 121/78 100 Mechanical Ventilator 40 98.4 09/22/17 15:30 64 30 40 09/22/17 15:00 65 26 139/81 99 Mechanical Ventilator 40 09/22/17 14:00 63 19 131/75 99 Mechanical Ventilator 40 09/22/17 13:36 73 18 100 Mechanical Ventilator 09/22/17 13:24 69 20 40 09/22/17 13:23 69 20 99 Mechanical Ventilator 40 09/22/17 13:00 72 16 130/78 99 Mechanical Ventilator 40 09/22/17 12:00 40 09/22/17 12:00 60 09/22/17 12:00 98.5 60 17 125/76 100 Mechanical Ventilator 40 98.5 09/22/17 11:19 62 17 40 Height (Feet): 5 Height (Inches): 8.00 Weight (Pounds): 180 HEENT: other Cardiovascular: normal rate Abdomen: soft, non tender, other - GT feeding Extremities: no edema Neurologic/Psychiatric: alert, other - on restraint Microbiology Date/Time Source Procedure Growth Status 09/20/17 14:00 Urine,Clean Catch Urine Culture - Final Silvia Albicans Complete Laboratory Tests Test 09/23/17 04:00 09/23/17 09:25 White Blood Count 13.6 K/UL (4.8-10.8) H Red Blood Count 3.30 M/UL (4.70-6.10) L Hemoglobin 9.4 G/DL (14.2-18.0) L Hematocrit 27.5 % (42.0-52.0) L Mean Corpuscular Volume 83 FL (80-99) Mean Corpuscular Hemoglobin 28.5 PG (27.0-31.0) Mean Corpuscular Hemoglobin Concent 34.2 G/DL (32.0-36.0) Red Cell Distribution Width 15.8 % (11.6-14.8) H Platelet Count 217 K/UL (150-450) Mean Platelet Volume 7.0 FL (6.5-10.1) Neutrophils (%) (Auto) 74.2 % (45.0-75.0) Lymphocytes (%) (Auto) 11.5 % (20.0-45.0) L Monocytes (%) (Auto) 4.7 % (1.0-10.0) Eosinophils (%) (Auto) 9.3 % (0.0-3.0) H Basophils (%) (Auto) 0.3 % (0.0-2.0) Sodium Level 140 MMOL/L (136-145) Potassium Level 4.1 MMOL/L (3.5-5.1) Chloride Level 105 MMOL/L (98-107) Carbon Dioxide Level 29 MMOL/L (21-32) Anion Gap 6 mmol/L (5-15) Blood Urea Nitrogen 86 mg/dL (7-18) H Creatinine 2.5 MG/DL (0.55-1.30) H Estimat Glomerular Filtration Rate mL/min (>60) Glucose Level 192 MG/DL (74-106) H Calcium Level 8.6 MG/DL (8.5-10.1) Phosphorus Level 4.8 MG/DL (2.5-4.9) Magnesium Level 2.7 MG/DL (1.8-2.4) H Total Bilirubin 0.5 MG/DL (0.2-1.0) Aspartate Amino Transf (AST/SGOT) 109 U/L (15-37) H Alanine Aminotransferase (ALT/SGPT) 104 U/L (12-78) H Alkaline Phosphatase 118 U/L (46-116) H Total Protein 7.1 G/DL (6.4-8.2) Albumin 1.4 G/DL (3.4-5.0) L Globulin 5.7 g/dL Albumin/Globulin Ratio 0.2 (1.0-2.7) L Arterial Blood pH 7.424 (7.350-7.450) Arterial Blood Partial Pressure CO2 40.0 mmHg (35.0-45.0) Arterial Blood Partial Pressure O2 96.9 mmHg (75.0-100.0) Arterial Blood HCO3 25.6 mmol/L (22.0-26.0) Arterial Blood Oxygen Saturation 97.4 % (92.0-98.0) Arterial Blood Base Excess 1.1 Librado Test Positive Current Medications Medications (Trade) Dose Ordered Sig/Keira Route PRN Reason Start Time Stop Time Status Last Admin Dose Admin Acetaminophen (Tylenol) 650 mg Q6H PRN NG Mild Pain/Temp > 100.5 09/22/17 20:00 10/22/17 19:59 Albuterol/ Ipratropium (Albuterol/ Ipratropium) 3 ml Q4H PRN HHN Shortness of Breath 09/19/17 14:45 09/24/17 14:44 Albuterol/ Ipratropium (Albuterol/ Ipratropium) 3 ml Q6HRT HHN 09/19/17 19:00 09/24/17 18:59 09/23/17 07:34 Chlorhexidine Gluconate (Michelle-Hex 2%) 1 applic DAILY@2000 TOPIC 09/22/17 20:00 10/22/17 19:59 09/22/17 20:06 Dextrose 1,000 ml @ 125 mls/hr Q8H IV 09/21/17 11:00 10/21/17 10:59 09/23/17 03:00 Dextrose (Dextrose 50%) 25 ml STAT PRN IV Hypoglycemia 09/19/17 14:15 10/19/17 14:14 Dextrose (Dextrose 50%) 50 ml STAT PRN IV Hypoglycemia 09/19/17 14:15 10/19/17 14:14 Heparin Sodium (Porcine) (Heparin 5000 units/ml) 5,000 units EVERY 12 HOURS SUBQ 09/19/17 21:00 10/19/17 20:59 09/23/17 09:38 Insulin Aspart (NovoLOG) EVERY 6 HOURS SUBQ 09/22/17 00:00 10/19/17 16:29 09/23/17 06:17 Isosorbide Dinitrate (Isordil) 10 mg Q6HR NG 09/22/17 18:00 10/22/17 17:59 09/23/17 06:15 Metoclopramide HCl (Reglan) 5 mg EVERY 8 HOURS GT 09/20/17 14:00 10/20/17 13:59 09/23/17 06:16 Nitroglycerin (Ntg) 1 patch Q24H TDERMAL 09/20/17 10:30 10/20/17 10:29 09/23/17 09:37 Norepinephrine Bitartrate 8 mg/ Dextrose 250 ml @ 0 mls/hr Q24H IV 09/19/17 19:45 10/19/17 19:44 09/19/17 21:01 Pantoprazole (Protonix) 40 mg EVERY 12 HOURS IVP 09/19/17 21:00 10/19/17 20:59 09/23/17 09:36 Piperacillin Sod/ Tazobactam Sod 2.25 gm/Dextrose 55 ml @ 110 mls/hr Q8HR IVPB 09/19/17 22:00 09/24/17 21:59 09/23/17 06:16 Tigecycline 50 mg/ Dextrose 110 ml @ 220 mls/hr Q12H IVPB 09/22/17 22:00 09/29/17 21:59 09/23/17 09:39 ANDRES SAVAGE September 23, 2017 11:12
--- NOTE | 2017-09-23 14:23 | Pulmonolgy Critical Care Note ---
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 (4) Sepsis (5) UTI (urinary tract infection) Assessment & Plan: ESLB proteus (6) Renal failure (7) Feeding by G-tube (8) Acute encephalopathy (9) HCAP (healthcare-associated pneumonia) (10) s/p multiple lacunar strokes, old (11) recent L MCA ischemic stroke (12) Bacterial infection due to Staphylococcus Assessment & Plan: S capitis /, repeat CX's NG Respiratory: monitor respiratory rate, adjust FIO2, weaning trial - repeat in am, if unable to wean will bronch, other - Optimize pulmonary hygiene/mobilize as tolerated, RTC and PRN HHN's Cardiac: continue to monitor HR/BP Renal: F/U I&O, decrease IV fluid - decrease D5W to 75, check electrolytes, other - F/U renal recs Infectious Disease: check cultures - F/U repeat CX's, continue antibiotics - per ID (Zosyn, tigacil) Gastrointestinal: continue feedings/current rate Endocrine: monitor blood sugar, continue sliding scale insulin Hematologic: monitor H/H Neurologic: keep patient comfortable Prophylaxis: Protonix, Heparin Disposition: keep in ICU Time Spent (Minutes): 40 Notes Reviewed: well service floorperson, renal, ID, other - Family still discussin code status amongst themselves Discussed with: nurses, consultants, family member Critical Care - Objective Last 24 Hour Vital Signs Date Time Temp Pulse Resp B/P (MAP) Pulse Ox O2 Delivery O2 Flow Rate FiO2 09/23/17 13:00 66 20 115/60 99 Mechanical Ventilator 40 09/23/17 12:53 60 16 100 Mechanical Ventilator 09/23/17 12:47 61 16 40 09/23/17 12:40 128/73 09/23/17 12:39 61 16 100 Mechanical Ventilator 40 09/23/17 12:00 67 09/23/17 12:00 64 20 119/65 99 Mechanical Ventilator 40 09/23/17 11:10 68 18 40 09/23/17 11:00 65 20 120/66 99 Mechanical Ventilator 40 09/23/17 10:00 99.0 61 20 124/78 98 Mechanical Ventilator 40 99.0 09/23/17 09:44 99 09/23/17 09:37 124/70 5/8/18 09:28 69 16 40 09/23/17 09:00 68 20 114/63 99 Mechanical Ventilator 40 09/23/17 08:15 40 09/23/17 08:00 65 09/23/17 08:00 40 09/23/17 08:00 70 20 119/64 98 Mechanical Ventilator 40 09/23/17 07:39 40 09/23/17 07:35 68 16 100 Mechanical Ventilator 09/23/17 07:29 66 16 40 09/23/17 07:29 70 16 100 Mechanical Ventilator 40 09/23/17 07:00 66 25 114/69 98 Mechanical Ventilator 40 09/23/17 06:15 117/68 09/23/17 06:00 99.0 69 22 123/68 99 Mechanical Ventilator 40 99.0 09/23/17 05:19 73 24 40 09/23/17 05:00 71 25 117/68 98 Mechanical Ventilator 40 09/23/17 04:27 97 09/23/17 04:00 40 09/23/17 04:00 98.4 100 24 129/74 100 Mechanical Ventilator 40 98.4 09/23/17 03:14 89 23 40 09/23/17 03:00 77 22 118/74 97 Mechanical Ventilator 40 09/23/17 02:00 65 25 108/65 97 Mechanical Ventilator 40 09/23/17 01:27 102 38 40 09/23/17 01:27 Mechanical Ventilator 40 09/23/17 01:27 Mechanical Ventilator 40 09/23/17 01:00 78 15 130/73 98 Mechanical Ventilator 40 09/23/17 00:00 69 09/23/17 00:00 99.4 80 29 136/79 98 Mechanical Ventilator 40 99.4 09/22/17 23:47 123/67 09/22/17 23:19 87 24 40 09/22/17 23:00 78 15 130/73 98 Mechanical Ventilator 40 09/22/17 22:00 84 15 124/70 99 Mechanical Ventilator 40 09/22/17 21:24 71 16 40 09/22/17 21:00 77 21 119/67 99 Mechanical Ventilator 40 09/22/17 20:00 40 09/22/17 20:00 98.6 62 16 123/67 100 Mechanical Ventilator 40 98.6 09/22/17 20:00 67 09/22/17 19:31 125/65 09/22/17 19:26 67 35 97 Mechanical Ventilator 09/22/17 19:23 62 28 40 09/22/17 19:20 62 28 98 Mechanical Ventilator 40 09/22/17 19:00 63 16 125/65 99 Mechanical Ventilator 40 09/22/17 18:00 60 27 141/65 98 Mechanical Ventilator 40 09/22/17 17:40 120/69 09/22/17 17:24 60 28 40 09/22/17 17:00 62 26 117/75 100 Mechanical Ventilator 40 09/22/17 16:00 64 09/22/17 16:00 40 09/22/17 16:00 98.4 26 121/78 100 Mechanical Ventilator 40 98.4 09/22/17 15:30 64 30 40 09/22/17 15:00 65 26 139/81 99 Mechanical Ventilator 40 Status: awake, other - confused Condition: critical HEENT: atraumatic, normocephalic, other - ETT Lungs: rales - at bases, rhonchi - scattered Heart: HR/BP stable Abdomen: soft, non-tender, active bowel sounds, feeding tube Extremities: no C/C/E Decubiti: location - sacrum, groin, stage - 3 Accucheck: 151 Critical Care - Subjective ROS Limited/Unobtainable: Yes ICU Day: 5 Intubation Day: 5 Interval Events: Failed SBT this am 7.42/40/96//97 Copious white clear secretions Tommy Tf's Condition: critical IV Access: central - R CVC EKG Rhythm: Sinus Rhythm FI02: 40 Vent Support Breath Rate: 16 Vent Support Mode: AC Vent Tidal Volume: 600 Sputum Amount: Moderate PEEP: 5.0 PIP: 32 Secretions: Moderate large white Fluids: D5W @ 125 Drips: N/A Tube Feeding Amount: 30 Residuals: 0 I&O: Intake and Output 09/22/17 09/23/17 19:00 07:00 Intake Total 2112.5 ml 1880 ml Output Total 705 ml 460 ml Balance 1407.5 ml 1420 ml Free Water 50 ml IV Total 1752.5 ml 1470 ml Tube Feeding 360 ml 360 ml Output Urine Total 705 ml 460 ml # Bowel Movements 3 3 Subjective: Unable to obtain CXR: Scattered b infiltrates, ETT 2 cm above selin, R IJ, sternotomy wires, tiny effusion ET-Tube: 8.0 ET Position: 24 Labs: Laboratory Tests Test 09/23/17 04:00 09/23/17 09:25 White Blood Count 13.6 K/UL (4.8-10.8) H Red Blood Count 3.30 M/UL (4.70-6.10) L Hemoglobin 9.4 G/DL (14.2-18.0) L Hematocrit 27.5 % (42.0-52.0) L Mean Corpuscular Volume 83 FL (80-99) Mean Corpuscular Hemoglobin 28.5 PG (27.0-31.0) Mean Corpuscular Hemoglobin Concent 34.2 G/DL (32.0-36.0) Red Cell Distribution Width 15.8 % (11.6-14.8) H Platelet Count 217 K/UL (150-450) Mean Platelet Volume 7.0 FL (6.5-10.1) Neutrophils (%) (Auto) 74.2 % (45.0-75.0) Lymphocytes (%) (Auto) 11.5 % (20.0-45.0) L Monocytes (%) (Auto) 4.7 % (1.0-10.0) Eosinophils (%) (Auto) 9.3 % (0.0-3.0) H Basophils (%) (Auto) 0.3 % (0.0-2.0) Sodium Level 140 MMOL/L (136-145) Potassium Level 4.1 MMOL/L (3.5-5.1) Chloride Level 105 MMOL/L (98-107) Carbon Dioxide Level 29 MMOL/L (21-32) Anion Gap 6 mmol/L (5-15) Blood Urea Nitrogen 86 mg/dL (7-18) H Creatinine 2.5 MG/DL (0.55-1.30) H Estimat Glomerular Filtration Rate mL/min (>60) Glucose Level 192 MG/DL (74-106) H Calcium Level 8.6 MG/DL (8.5-10.1) Phosphorus Level 4.8 MG/DL (2.5-4.9) Magnesium Level 2.7 MG/DL (1.8-2.4) H Total Bilirubin 0.5 MG/DL (0.2-1.0) Aspartate Amino Transf (AST/SGOT) 109 U/L (15-37) H Alanine Aminotransferase (ALT/SGPT) 104 U/L (12-78) H Alkaline Phosphatase 118 U/L (46-116) H Total Protein 7.1 G/DL (6.4-8.2) Albumin 1.4 G/DL (3.4-5.0) L Globulin 5.7 g/dL Albumin/Globulin Ratio 0.2 (1.0-2.7) L Arterial Blood pH 7.424 (7.350-7.450) Arterial Blood Partial Pressure CO2 40.0 mmHg (35.0-45.0) Arterial Blood Partial Pressure O2 96.9 mmHg (75.0-100.0) Arterial Blood HCO3 25.6 mmol/L (22.0-26.0) Arterial Blood Oxygen Saturation 97.4 % (92.0-98.0) Arterial Blood Base Excess 1.1 Librado Test Positive CHRISTINA KIDD M.D. September 23, 2017 14:23
--- NOTE | 2017-09-23 14:38 | GI Progress Note ---
Assessment/Plan Problems: (1) Anemia ICD Codes: D64.9 - Anemia, unspecified SNOMED: 649462702 (2) Feeding by G-tube ICD Codes: Z93.1 - Gastrostomy status SNOMED: 681740986, 127351666 (3) Acute encephalopathy ICD Codes: G93.40 - Encephalopathy, unspecified SNOMED: 4873490 (4) Transaminitis ICD Codes: R74.0 - Nonspecific elevation of levels of transaminase and lactic acid dehydrogenase [LDH] SNOMED: 182188153, 938574979 Status: stable Status Narrative Discussed with Dr. Taveras. Assessment/Plan Assessment - Anemia - abnormal LFT - Resp failure - Renal failure - Sepsis - CVA / (R) taylor - dysphagia / GT Recommendations - TF - check abd u/s - check OB, fu hep panel - transufse PRN - abx - s/p EGD/colon 07/2017 at [facility] (HH,polyps, diverticulosis) - fu labs The patient was seen and examined at bedside and all new and available data was reviewed in the patients chart. I agree with the above findings, impression and plan. (Patient seen earlier today. Signature stamp does not reflect patient encounter time.). - Villa Taveras MD Subjective Subjective limited Objective Last 24 Hour Vital Signs Date Time Temp Pulse Resp B/P (MAP) Pulse Ox O2 Delivery O2 Flow Rate FiO2 09/23/17 13:00 66 20 115/60 99 Mechanical Ventilator 40 09/23/17 12:53 60 16 100 Mechanical Ventilator 09/23/17 12:47 61 16 40 09/23/17 12:40 128/73 09/23/17 12:39 61 16 100 Mechanical Ventilator 40 09/23/17 12:00 67 09/23/17 12:00 64 20 119/65 99 Mechanical Ventilator 40 09/23/17 11:10 68 18 40 09/23/17 11:00 65 20 120/66 99 Mechanical Ventilator 40 09/23/17 10:00 99.0 61 20 124/78 98 Mechanical Ventilator 40 99.0 09/23/17 09:44 99 09/23/17 09:37 124/70 09/23/17 09:28 69 16 40 09/23/17 09:00 68 20 114/63 99 Mechanical Ventilator 40 5/8/18 08:15 40 09/23/17 08:00 65 09/23/17 08:00 40 09/23/17 08:00 70 20 119/64 98 Mechanical Ventilator 40 09/23/17 07:39 40 09/23/17 07:35 68 16 100 Mechanical Ventilator 09/23/17 07:29 66 16 40 09/23/17 07:29 70 16 100 Mechanical Ventilator 40 09/23/17 07:00 66 25 114/69 98 Mechanical Ventilator 40 09/23/17 06:15 117/68 09/23/17 06:00 99.0 69 22 123/68 99 Mechanical Ventilator 40 99.0 09/23/17 05:19 73 24 40 09/23/17 05:00 71 25 117/68 98 Mechanical Ventilator 40 09/23/17 04:27 97 09/23/17 04:00 40 09/23/17 04:00 98.4 100 24 129/74 100 Mechanical Ventilator 40 98.4 09/23/17 03:14 89 23 40 09/23/17 03:00 77 22 118/74 97 Mechanical Ventilator 40 09/23/17 02:00 65 25 108/65 97 Mechanical Ventilator 40 09/23/17 01:27 102 38 40 09/23/17 01:27 Mechanical Ventilator 40 09/23/17 01:27 Mechanical Ventilator 40 09/23/17 01:00 78 15 130/73 98 Mechanical Ventilator 40 09/23/17 00:00 69 09/23/17 00:00 99.4 80 29 136/79 98 Mechanical Ventilator 40 99.4 09/22/17 23:47 123/67 09/22/17 23:19 87 24 40 09/22/17 23:00 78 15 130/73 98 Mechanical Ventilator 40 09/22/17 22:00 84 15 124/70 99 Mechanical Ventilator 40 09/22/17 21:24 71 16 40 09/22/17 21:00 77 21 119/67 99 Mechanical Ventilator 40 09/22/17 20:00 40 09/22/17 20:00 98.6 62 16 123/67 100 Mechanical Ventilator 40 98.6 09/22/17 20:00 67 09/22/17 19:31 125/65 09/22/17 19:26 67 35 97 Mechanical Ventilator 09/22/17 19:23 62 28 40 09/22/17 19:20 62 28 98 Mechanical Ventilator 40 09/22/17 19:00 63 16 125/65 99 Mechanical Ventilator 40 09/22/17 18:00 60 27 141/65 98 Mechanical Ventilator 40 09/22/17 17:40 120/69 09/22/17 17:24 60 28 40 09/22/17 17:00 62 26 117/75 100 Mechanical Ventilator 40 09/22/17 16:00 64 09/22/17 16:00 40 09/22/17 16:00 98.4 26 121/78 100 Mechanical Ventilator 40 98.4 09/22/17 15:30 64 30 40 09/22/17 15:00 65 26 139/81 99 Mechanical Ventilator 40 Intake and Output 09/22/17 09/23/17 19:00 07:00 Intake Total 2112.5 ml 1880 ml Output Total 705 ml 460 ml Balance 1407.5 ml 1420 ml Free Water 50 ml IV Total 1752.5 ml 1470 ml Tube Feeding 360 ml 360 ml Output Urine Total 705 ml 460 ml # Bowel Movements 3 3 Laboratory Tests Test 09/23/17 04:00 09/23/17 09:25 White Blood Count 13.6 K/UL (4.8-10.8) H Red Blood Count 3.30 M/UL (4.70-6.10) L Hemoglobin 9.4 G/DL (14.2-18.0) L Hematocrit 27.5 % (42.0-52.0) L Mean Corpuscular Volume 83 FL (80-99) Mean Corpuscular Hemoglobin 28.5 PG (27.0-31.0) Mean Corpuscular Hemoglobin Concent 34.2 G/DL (32.0-36.0) Red Cell Distribution Width 15.8 % (11.6-14.8) H Platelet Count 217 K/UL (150-450) Mean Platelet Volume 7.0 FL (6.5-10.1) Neutrophils (%) (Auto) 74.2 % (45.0-75.0) Lymphocytes (%) (Auto) 11.5 % (20.0-45.0) L Monocytes (%) (Auto) 4.7 % (1.0-10.0) Eosinophils (%) (Auto) 9.3 % (0.0-3.0) H Basophils (%) (Auto) 0.3 % (0.0-2.0) Sodium Level 140 MMOL/L (136-145) Potassium Level 4.1 MMOL/L (3.5-5.1) Chloride Level 105 MMOL/L (98-107) Carbon Dioxide Level 29 MMOL/L (21-32) Anion Gap 6 mmol/L (5-15) Blood Urea Nitrogen 86 mg/dL (7-18) H Creatinine 2.5 MG/DL (0.55-1.30) H Estimat Glomerular Filtration Rate mL/min (>60) Glucose Level 192 MG/DL (74-106) H Calcium Level 8.6 MG/DL (8.5-10.1) Phosphorus Level 4.8 MG/DL (2.5-4.9) Magnesium Level 2.7 MG/DL (1.8-2.4) H Total Bilirubin 0.5 MG/DL (0.2-1.0) Aspartate Amino Transf (AST/SGOT) 109 U/L (15-37) H Alanine Aminotransferase (ALT/SGPT) 104 U/L (12-78) H Alkaline Phosphatase 118 U/L (46-116) H Total Protein 7.1 G/DL (6.4-8.2) Albumin 1.4 G/DL (3.4-5.0) L Globulin 5.7 g/dL Albumin/Globulin Ratio 0.2 (1.0-2.7) L Arterial Blood pH 7.424 (7.350-7.450) Arterial Blood Partial Pressure CO2 40.0 mmHg (35.0-45.0) Arterial Blood Partial Pressure O2 96.9 mmHg (75.0-100.0) Arterial Blood HCO3 25.6 mmol/L (22.0-26.0) Arterial Blood Oxygen Saturation 97.4 % (92.0-98.0) Arterial Blood Base Excess 1.1 Librado Test Positive Height (Feet): 5 Height (Inches): 8.00 Weight (Pounds): 180 General Appearance: no apparent distress Cardiovascular: normal rate, pacemaker/AICD Respiratory/Chest: no respiratory distress, other - mech vent Abdominal Exam: normal bowel sounds, non tender, soft, GT site - c/d/i Extremities: normal range of motion, non-tender Delfina Francois N.P. September 23, 2017 14:38
--- NOTE | 2017-09-23 15:34 | Nephrology Progress Note ---
Assessment/Plan Problem List: (1) ATN (acute tubular necrosis) (2) Septic shock (3) Respiratory failure (4) Diabetes mellitus Assessment Acute Renal failure- Cr lower ? Underlying CKD Component of dehydration, Pre renal state and Hypernatremia Acute respiratory failure, Aspiartion Pneumonia, UTI Septic Shock H/O Multiple Strokes Anemia Elevated Troponin Hyperglycemia PEG Plan transfused add isordil Pulm support Hydrate- avoid nephrotoxics Monitor renal parameters Hemodynamic support IV iron Nitro and asa GT feeding Per orders Subjective ROS Limited/Unobtainable: Yes Objective Objective Last 24 Hour Vital Signs Date Time Temp Pulse Resp B/P (MAP) Pulse Ox O2 Delivery O2 Flow Rate FiO2 09/23/17 15:00 65 22 120/66 99 Mechanical Ventilator 40 09/23/17 15:00 61 16 40 09/23/17 14:00 98.9 62 20 125/73 99 Mechanical Ventilator 40 98.9 09/23/17 13:00 66 20 115/60 99 Mechanical Ventilator 40 09/23/17 12:53 60 16 100 Mechanical Ventilator 09/23/17 12:47 61 16 40 09/23/17 12:40 128/73 09/23/17 12:39 61 16 100 Mechanical Ventilator 40 09/23/17 12:00 67 09/23/17 12:00 64 20 119/65 99 Mechanical Ventilator 40 09/23/17 11:10 68 18 40 09/23/17 11:00 65 20 120/66 99 Mechanical Ventilator 40 09/23/17 10:00 99.0 61 20 124/78 98 Mechanical Ventilator 40 99.0 09/23/17 09:44 99 09/23/17 09:37 124/70 09/23/17 09:28 69 16 40 09/23/17 09:00 68 20 114/63 99 Mechanical Ventilator 40 09/23/17 08:15 40 09/23/17 08:00 65 09/23/17 08:00 40 09/23/17 08:00 70 20 119/64 98 Mechanical Ventilator 40 09/23/17 07:39 40 09/23/17 07:35 68 16 100 Mechanical Ventilator 09/23/17 07:29 66 16 40 09/23/17 07:29 70 16 100 Mechanical Ventilator 40 09/23/17 07:00 66 25 114/69 98 Mechanical Ventilator 40 09/23/17 06:15 117/68 09/23/17 06:00 99.0 69 22 123/68 99 Mechanical Ventilator 40 99.0 09/23/17 05:19 73 24 40 09/23/17 05:00 71 25 117/68 98 Mechanical Ventilator 40 09/23/17 04:27 97 09/23/17 04:00 40 09/23/17 04:00 98.4 100 24 129/74 100 Mechanical Ventilator 40 98.4 09/23/17 03:14 89 23 40 09/23/17 03:00 77 22 118/74 97 Mechanical Ventilator 40 09/23/17 02:00 65 25 108/65 97 Mechanical Ventilator 40 09/23/17 01:27 102 38 40 09/23/17 01:27 Mechanical Ventilator 40 09/23/17 01:27 Mechanical Ventilator 40 09/23/17 01:00 78 15 130/73 98 Mechanical Ventilator 40 09/23/17 00:00 69 09/23/17 00:00 99.4 80 29 136/79 98 Mechanical Ventilator 40 99.4 09/22/17 23:47 123/67 09/22/17 23:19 87 24 40 09/22/17 23:00 78 15 130/73 98 Mechanical Ventilator 40 09/22/17 22:00 84 15 124/70 99 Mechanical Ventilator 40 09/22/17 21:24 71 16 40 09/22/17 21:00 77 21 119/67 99 Mechanical Ventilator 40 09/22/17 20:00 40 09/22/17 20:00 98.6 62 16 123/67 100 Mechanical Ventilator 40 98.6 09/22/17 20:00 67 09/22/17 19:31 125/65 09/22/17 19:26 67 35 97 Mechanical Ventilator 09/22/17 19:23 62 28 40 09/22/17 19:20 62 28 98 Mechanical Ventilator 40 09/22/17 19:00 63 16 125/65 99 Mechanical Ventilator 40 09/22/17 18:00 60 27 141/65 98 Mechanical Ventilator 40 09/22/17 17:40 120/69 09/22/17 17:24 60 28 40 09/22/17 17:00 62 26 117/75 100 Mechanical Ventilator 40 09/22/17 16:00 64 09/22/17 16:00 40 09/22/17 16:00 98.4 26 121/78 100 Mechanical Ventilator 40 98.4 Intake and Output 09/22/17 09/23/17 19:00 07:00 Intake Total 2112.5 ml 1880 ml Output Total 705 ml 460 ml Balance 1407.5 ml 1420 ml Free Water 50 ml IV Total 1752.5 ml 1470 ml Tube Feeding 360 ml 360 ml Output Urine Total 705 ml 460 ml # Bowel Movements 3 3 Laboratory Tests 09/23/17 04:00: White Blood Count 13.6H, Red Blood Count 3.30L, Hemoglobin 9.4L, Hematocrit 27.5L, Mean Corpuscular Volume 83, Mean Corpuscular Hemoglobin 28.5, Mean Corpuscular Hemoglobin Concent 34.2, Red Cell Distribution Width 15.8H, Platelet Count 217, Mean Platelet Volume 7.0, Neutrophils (%) (Auto) 74.2, Lymphocytes (%) (Auto) 11.5L, Monocytes (%) (Auto) 4.7, Eosinophils (%) (Auto) 9.3H, Basophils (%) (Auto) 0.3, Sodium Level 140, Potassium Level 4.1, Chloride Level 105, Carbon Dioxide Level 29, Anion Gap 6, Blood Urea Nitrogen 86H, Creatinine 2.5H, Estimat Glomerular Filtration Rate , Glucose Level 192H, Calcium Level 8.6, Phosphorus Level 4.8, Magnesium Level 2.7H, Total Bilirubin 0.5, Aspartate Amino Transf (AST/SGOT) 109H, Alanine Aminotransferase (ALT/SGPT ) 104H, Alkaline Phosphatase 118H, Total Protein 7.1, Albumin 1.4L, Globulin 5.7 , Albumin/Globulin Ratio 0.2L 09/23/17 09:25: Arterial Blood pH 7.424, Arterial Blood Partial Pressure CO2 40.0, Arterial Blood Partial Pressure O2 96.9, Arterial Blood HCO3 25.6, Arterial Blood Oxygen Saturation 97.4, Arterial Blood Base Excess 1.1, Librado Test Positive Height (Feet): 5 Height (Inches): 8.00 Weight (Pounds): 180 EENT: other - on vent Cardiovascular: tachycardia Respiratory/Chest: decreased breath sounds Abdomen: soft ROSE MARY REID September 23, 2017 15:34
--- NOTE | 2017-09-23 16:47 | Cardiology Report ---
APPROVED REPORT EKG Measurement Heart [id number] Sinus rhythm with premature supraventricular complexes Left bundle branch block Abnormal ECG
[2017-09-23] MEDS: Dyna-Hex 2% Top Sol 2oz TOPIC SCH (20:34)
[2017-09-23] MEDS: Minocycline HCl 50mg cap ORAL SCH (20:35)
--- NOTE | 2017-09-23 20:51 | Internal Med Progress Note ---
Subjective Date of Service: September 23, 2017 Physician Name Cesario Chacon Attending Physician Cesario Chacon Past Medical History no change Past Surgical History no change Current Medications Medications (Trade) Dose Ordered Sig/Keira Route PRN Reason Start Time Stop Time Status Last Admin Dose Admin Acetaminophen (Tylenol) 650 mg Q6H PRN NG Mild Pain/Temp > 100.5 09/22/17 20:00 10/22/17 19:59 Albuterol/ Ipratropium (Albuterol/ Ipratropium) 3 ml Q4H PRN HHN Shortness of Breath 09/19/17 14:45 09/24/17 14:44 Albuterol/ Ipratropium (Albuterol/ Ipratropium) 3 ml Q6HRT HHN 09/19/17 19:00 09/24/17 18:59 09/23/17 19:49 Chlorhexidine Gluconate (Michelle-Hex 2%) 1 applic DAILY@2000 TOPIC 09/22/17 20:00 10/22/17 19:59 09/23/17 20:34 Colistimethate Sodium (Colistin *inhalation use only*) 75 mg Q12HR@10,22 INH 09/23/17 22:00 09/30/17 21:59 Dextrose 1,000 ml @ 75 mls/hr [id number] IV 09/23/17 15:30 10/23/17 15:29 09/23/17 14:52 Dextrose (Dextrose 50%) 25 ml STAT PRN IV Hypoglycemia 09/19/17 14:15 10/19/17 14:14 Dextrose (Dextrose 50%) 50 ml STAT PRN IV Hypoglycemia 09/19/17 14:15 10/19/17 14:14 Heparin Sodium (Porcine) (Heparin 5000 units/ml) 5,000 units EVERY 12 HOURS SUBQ 09/19/17 21:00 10/19/17 20:59 09/23/17 20:37 Insulin Aspart (NovoLOG) EVERY 6 HOURS SUBQ 09/22/17 00:00 10/19/17 16:29 09/23/17 17:26 Isosorbide Dinitrate (Isordil) 10 mg Q6HR NG 09/22/17 18:00 10/22/17 17:59 09/23/17 17:23 Metoclopramide HCl (Reglan) 5 mg EVERY 8 HOURS GT 09/20/17 14:00 10/20/17 13:59 09/23/17 06:16 Minocycline HCl (Minocin) 100 mg Q12HR ORAL 09/23/17 21:00 09/30/17 20:59 09/23/17 20:35 Nitroglycerin (Ntg) 1 patch Q24H TDERMAL 09/20/17 10:30 10/20/17 10:29 09/23/17 09:37 Norepinephrine Bitartrate 8 mg/ Dextrose 250 ml @ 0 mls/hr Q24H IV 09/19/17 19:45 10/19/17 19:44 09/19/17 21:01 Pantoprazole (Protonix) 40 mg EVERY 12 HOURS IVP 09/19/17 21:00 10/19/17 20:59 09/23/17 20:35 Piperacillin Sod/ Tazobactam Sod 2.25 gm/Dextrose 55 ml @ 110 mls/hr Q8HR IVPB 09/19/17 22:00 09/28/17 23:00 09/23/17 14:00 Allergies: Coded Allergies: No Known Allergies (Verified , 01/02/09) ROS Limited/Unobtainable: Yes - intubated Subjective remains intubated, off pressor Objective Last Vital Signs Date Time Temp Pulse Resp B/P (MAP) Pulse Ox O2 Delivery O2 Flow Rate FiO2 09/23/17 19:45 131/70 09/23/17 19:28 60 22 100 Mechanical Ventilator 09/23/17 19:21 40 09/23/17 18:00 99.2 99.2 09/20/17 19:20 15.0 General Appearance: no apparent distress Cardiovascular: normal rate, systolic murmur Respiratory/Chest: rhonchi - left Abdomen: normal bowel sounds, soft, no mass Extremities: non-tender, no calf tenderness Edema: trace edema Neurologic: other - sedated Skin: warm/dry Laboratory Tests Test 09/23/17 04:00 09/23/17 09:25 White Blood Count 13.6 K/UL (4.8-10.8) H Red Blood Count 3.30 M/UL (4.70-6.10) L Hemoglobin 9.4 G/DL (14.2-18.0) L Hematocrit 27.5 % (42.0-52.0) L Mean Corpuscular Volume 83 FL (80-99) Mean Corpuscular Hemoglobin 28.5 PG (27.0-31.0) Mean Corpuscular Hemoglobin Concent 34.2 G/DL (32.0-36.0) Red Cell Distribution Width 15.8 % (11.6-14.8) H Platelet Count 217 K/UL (150-450) Mean Platelet Volume 7.0 FL (6.5-10.1) Neutrophils (%) (Auto) 74.2 % (45.0-75.0) Lymphocytes (%) (Auto) 11.5 % (20.0-45.0) L Monocytes (%) (Auto) 4.7 % (1.0-10.0) Eosinophils (%) (Auto) 9.3 % (0.0-3.0) H Basophils (%) (Auto) 0.3 % (0.0-2.0) Sodium Level 140 MMOL/L (136-145) Potassium Level 4.1 MMOL/L (3.5-5.1) Chloride Level 105 MMOL/L (98-107) Carbon Dioxide Level 29 MMOL/L (21-32) Anion Gap 6 mmol/L (5-15) Blood Urea Nitrogen 86 mg/dL (7-18) H Creatinine 2.5 MG/DL (0.55-1.30) H Estimat Glomerular Filtration Rate mL/min (>60) Glucose Level 192 MG/DL (74-106) H Calcium Level 8.6 MG/DL (8.5-10.1) Phosphorus Level 4.8 MG/DL (2.5-4.9) Magnesium Level 2.7 MG/DL (1.8-2.4) H Total Bilirubin 0.5 MG/DL (0.2-1.0) Aspartate Amino Transf (AST/SGOT) 109 U/L (15-37) H Alanine Aminotransferase (ALT/SGPT) 104 U/L (12-78) H Alkaline Phosphatase 118 U/L (46-116) H Total Protein 7.1 G/DL (6.4-8.2) Albumin 1.4 G/DL (3.4-5.0) L Globulin 5.7 g/dL Albumin/Globulin Ratio 0.2 (1.0-2.7) L Arterial Blood pH 7.424 (7.350-7.450) Arterial Blood Partial Pressure CO2 40.0 mmHg (35.0-45.0) Arterial Blood Partial Pressure O2 96.9 mmHg (75.0-100.0) Arterial Blood HCO3 25.6 mmol/L (22.0-26.0) Arterial Blood Oxygen Saturation 97.4 % (92.0-98.0) Arterial Blood Base Excess 1.1 Librado Test Positive Intake and Output 09/22/17 09/23/17 19:00 07:00 Intake Total 2112.5 ml 1880 ml Output Total 705 ml 460 ml Balance 1407.5 ml 1420 ml Free Water 50 ml IV Total 1752.5 ml 1470 ml Tube Feeding 360 ml 360 ml Output Urine Total 705 ml 460 ml # Bowel Movements 3 3 Assessment/Plan Assessment/Plan MPRESSION: 1. Acute respiratory failure, intubated. 2. MDR Pneumonia likely aspiration pneumonia versus healthcare associated pneumonia. 3. Severe dehydration. 4. Hypernatremia. 5. Hyperkalemia. 6. Acute on chronic renal failure. 7. Uremia due to prerenal. 8. Transaminitis. 9. Elevated lipase. 10. Severe protein-calorie malnutrition. 11. History of chronic CVA with right hemiparesis. 13. History of organic brain disease. 14. History of advanced dementia. 15. Status post gastrostomy tube placement. 16. History of neurogenic bladder/chronic indwelling Matson catheter. 17. Hyperlipidemia. 18. Coronary artery disease. PLAN: intensive care unit.. wean vent as tolerated intravenous fluid. lyte replete Pulmonary nebulizer. off pressor for now PRBC tx as needed 7. DVT and GI prophylaxis. IV abx IV Fe Continue with the Matson catheter. Aspiration precaution. electrolytes replete as indicated. enteral feeding per GI 45 min spent in critical care in ICU d/w [employer] workflow consultant-Dr Olegario Chacon MD [phone] CESARIO CHACON September 23, 2017 20:51
[2017-09-23] MEDS: Colistin for inhalation INH SCH (22:29)
[2017-09-24] VITALS (24 sets, daily range): BP systolic 102–142; BP diastolic 54–95
[2017-09-24] MEDS: Albuterol/Ipratropium 3ml neb HHN SCH ×3 (00:50→12:55)
[2017-09-24] MEDS: Piperacillin/Tazobactam 2.25 GM in D5W 55 ML IVPB SCH ×3 (05:40→21:53)
[2017-09-24] MEDS: Metoclopramide 10mg/10ml Liq GT SCH ×3 (05:40→21:24)
[2017-09-24] MEDS: NovoLOG Insulin Flexpen SUBQ SCH ×4 (05:42→23:46)
[2017-09-24 05:54] LABS: BASOPHILS % (AUTO) 0.3 % (0.0-2.0); EOSINOPHILS % (AUTO) 7.8 % (0.0-3.0); HEMATOCRIT 26.4 % (42.0-52.0); HEMOGLOBIN 9.1 G/DL (14.2-18.0); LYMPHOCYTES % (AUTO) 12.6 % (20.0-45.0); MEAN CORPUSCULAR VOLUME 83 FL (80-99); MONOCYTES % (AUTO) 3.5 % (1.0-10.0); NEUTROPHILS % (AUTO) 75.9 % (45.0-75.0); PLATELET COUNT 214 K/UL (150-450); RED BLOOD COUNT 3.19 M/UL (4.70-6.10); RED CELL DISTRIBUTION WIDTH 15.9 % (11.6-14.8); WHITE BLOOD COUNT 13.7 K/UL (4.8-10.8)
[2017-09-24 06:08] LABS: ALANINE AMINOTRANSFERASE 88 U/L (12-78); ALBUMIN 1.3 G/DL (3.4-5.0); ALBUMIN/GLOBULIN RATIO 0.2 (1.0-2.7); ALKALINE PHOSPHATASE 113 U/L (46-116); ANION GAP 10 mmol/L (5-15); ASPARTATE AMINO TRANSFERASE 84 U/L (15-37); BILIRUBIN,TOTAL 0.5 MG/DL (0.2-1.0); BLOOD UREA NITROGEN 91 mg/dL (7-18); CALCIUM 7.9 MG/DL (8.5-10.1); CARBON DIOXIDE 24 MMOL/L (21-32); CHLORIDE 104 MMOL/L (98-107); CREATININE 2.6 MG/DL (0.55-1.30); POTASSIUM 3.7 MMOL/L (3.5-5.1); SODIUM 138 MMOL/L (136-145)
[2017-09-24] MEDS: Colistin for inhalation INH SCH ×2 (07:29→21:43)
--- NOTE | 2017-09-24 09:32 | Pulmonolgy Critical Care Note ---
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 (4) Sepsis (5) UTI (urinary tract infection) Assessment & Plan: ESLB proteus (6) Renal failure (7) Feeding by G-tube (8) Acute encephalopathy (9) HCAP (healthcare-associated pneumonia) (10) s/p multiple lacunar strokes, old (11) recent L MCA ischemic stroke (12) Bacterial infection due to Staphylococcus Assessment & Plan: S capitis 5/4, repeat CX's NG Respiratory: monitor respiratory rate, weaning trial - PS 14, drop by 2 every 30 min, if burton PS 8 check RSBI and possible extubation, other - Optimize pulmonary hygiene/mobilize as tolerated, RTC&PRN HHN;s Cardiac: continue to monitor HR/BP Renal: decrease IV fluid - D/C IVF\, other - F/U renal recs, monitor renal function and electrolytes Infectious Disease: continue antibiotics - per ID Gastrointestinal: hold feedings - for SBT, if fails can resume Endocrine: monitor blood sugar, continue sliding scale insulin Hematologic: monitor H/H Neurologic: keep patient comfortable Prophylaxis: Protonix, Heparin - SQ Disposition: keep in ICU Time Spent (Minutes): 60 Critical Care - Objective Last 24 Hour Vital Signs Date Time Temp Pulse Resp B/P (MAP) Pulse Ox O2 Delivery O2 Flow Rate FiO2 09/24/17 09:00 98.7 60 19 120/63 100 Mechanical Ventilator 40 98.7 09/24/17 08:00 40 09/24/17 08:00 64 09/24/17 08:00 62 19 117/61 100 Mechanical Ventilator 40 09/24/17 07:35 58 16 100 Mechanical Ventilator 40 09/24/17 07:25 57 16 40 09/24/17 07:23 58 16 100 Mechanical Ventilator 40 09/24/17 07:23 40 09/24/17 07:23 61 16 100 Mechanical Ventilator 09/24/17 07:15 59 16 100 Mechanical Ventilator 40 09/24/17 07:00 60 20 116/55 100 Mechanical Ventilator 40 09/24/17 06:00 62 20 110/66 100 Mechanical Ventilator 40 09/24/17 05:41 134/62 09/24/17 05:21 64 24 40 09/24/17 05:00 62 22 134/62 100 Mechanical Ventilator 40 09/24/17 04:00 62 09/24/17 04:00 40 09/24/17 04:00 99.2 62 27 127/66 100 Mechanical Ventilator 40 99.2 09/24/17 03:00 62 27 129/77 100 Mechanical Ventilator 40 09/24/17 02:45 60 19 40 09/24/17 02:00 62 27 130/70 100 Mechanical Ventilator 40 09/24/17 01:00 62 22 115/64 100 Mechanical Ventilator 40 09/24/17 00:51 63 17 100 Mechanical Ventilator 09/24/17 00:50 63 17 40 09/24/17 00:45 62 16 100 Mechanical Ventilator 40 09/24/17 00:00 98.6 62 20 119/67 100 Mechanical Ventilator 40 98.6 09/24/17 00:00 62 09/24/17 00:00 40 09/23/17 23:54 124/68 09/23/17 23:00 64 22 124/68 100 Mechanical Ventilator 40 09/23/17 22:36 68 16 40 09/23/17 22:11 64 16 100 Mechanical Ventilator 50.0 40 09/23/17 22:01 40 09/23/17 22:01 65 16 100 Mechanical Ventilator 50.0 40 09/23/17 22:00 63 18 133/72 100 Mechanical Ventilator 40 09/23/17 21:10 65 28 40 09/23/17 21:00 62 16 126/64 100 Mechanical Ventilator 40 09/23/17 20:00 98.5 62 22 125/72 99 Mechanical Ventilator 40 98.5 09/23/17 20:00 63 09/23/17 20:00 40 09/23/17 19:45 131/70 09/23/17 19:28 60 22 100 Mechanical Ventilator 09/23/17 19:21 60 25 99 Mechanical Ventilator 40 09/23/17 19:03 59 23 40 09/23/17 19:00 71 20 120/66 99 Mechanical Ventilator 40 09/23/17 18:00 99.2 77 20 130/66 99 Mechanical Ventilator 40 99.2 09/23/17 17:23 134/84 09/23/17 17:00 70 22 132/64 99 Mechanical Ventilator 40 09/23/17 16:37 63 16 40 09/23/17 16:00 40 09/23/17 16:00 66 20 118/70 99 Mechanical Ventilator 40 09/23/17 16:00 70 09/23/17 15:00 65 22 120/66 99 Mechanical Ventilator 40 09/23/17 15:00 61 16 40 09/23/17 14:00 98.9 62 20 125/73 99 Mechanical Ventilator 40 98.9 09/23/17 13:00 66 20 115/60 99 Mechanical Ventilator 40 09/23/17 12:53 60 16 100 Mechanical Ventilator 09/23/17 12:47 61 16 40 09/23/17 12:40 128/73 09/23/17 12:39 61 16 100 Mechanical Ventilator 40 09/23/17 12:00 67 09/23/17 12:00 64 20 119/65 99 Mechanical Ventilator 40 09/23/17 11:10 68 18 40 09/23/17 11:00 65 20 120/66 99 Mechanical Ventilator 40 09/23/17 10:00 99.0 61 20 124/78 98 Mechanical Ventilator 40 99.0 09/23/17 09:44 99 09/23/17 09:37 124/70 Status: obtunded Condition: critical HEENT: atraumatic, normocephalic, other - ETT Lungs: rhonchi - scattered Heart: HR/BP stable Abdomen: soft, non-tender, active bowel sounds, feeding tube Extremities: no C/C/E Decubiti: location - sacraum, groin, stage - 3 Micro: Microbiology Date/Time Source Procedure Growth Status 09/23/17 20:30 Stool Clostridium difficile Toxin Assay - Final Complete Accucheck: 174 Blood Sugars: BS controlled Critical Care - Subjective ROS Limited/Unobtainable: Yes ICU Day: 6 Intubation Day: 6 Interval Events: Failed SBT yesterday IJ removed Secretions better Burton TF's AFVSS, stable on vent, FiO2 40% Lethargic but arousable Condition: critical IV Access: peripheral EKG Rhythm: Sinus Rhythm FI02: 40 Vent Support Breath Rate: 16 Vent Support Mode: AC Vent Tidal Volume: 450 Sputum Amount: Moderate PEEP: 5.0 PIP: 26 Fluids: D5W @ 75 Tube Feeding Amount: 30 I&O: Intake and Output 09/23/17 09/24/17 19:00 07:00 Intake Total 1070 ml 1695 ml Output Total 460 ml 900 ml Balance 610 ml 795 ml Free Water 50 ml IV Total 710 ml 1085 ml Tube Feeding 360 ml 360 ml Other 200 ml Output Urine Total 460 ml 900 ml # Bowel Movements 5 3 Subjective: Unable to obtain ET-Tube: 8.0 ET Position: 25 Labs: Laboratory Tests Test 09/24/17 05:15 White Blood Count 13.7 K/UL (4.8-10.8) H Red Blood Count 3.19 M/UL (4.70-6.10) L Hemoglobin 9.1 G/DL (14.2-18.0) L Hematocrit 26.4 % (42.0-52.0) L Mean Corpuscular Volume 83 FL (80-99) Mean Corpuscular Hemoglobin 28.5 PG (27.0-31.0) Mean Corpuscular Hemoglobin Concent 34.5 G/DL (32.0-36.0) Red Cell Distribution Width 15.9 % (11.6-14.8) H Platelet Count 214 K/UL (150-450) Mean Platelet Volume 7.2 FL (6.5-10.1) Neutrophils (%) (Auto) 75.9 % (45.0-75.0) H Lymphocytes (%) (Auto) 12.6 % (20.0-45.0) L Monocytes (%) (Auto) 3.5 % (1.0-10.0) Eosinophils (%) (Auto) 7.8 % (0.0-3.0) H Basophils (%) (Auto) 0.3 % (0.0-2.0) Sodium Level 138 MMOL/L (136-145) Potassium Level 3.7 MMOL/L (3.5-5.1) Chloride Level 104 MMOL/L (98-107) Carbon Dioxide Level 24 MMOL/L (21-32) Anion Gap 10 mmol/L (5-15) Blood Urea Nitrogen 91 mg/dL (7-18) H Creatinine 2.6 MG/DL (0.55-1.30) H Estimat Glomerular Filtration Rate mL/min (>60) Glucose Level 156 MG/DL (74-106) H Calcium Level 7.9 MG/DL (8.5-10.1) L Total Bilirubin 0.5 MG/DL (0.2-1.0) Aspartate Amino Transf (AST/SGOT) 84 U/L (15-37) H Alanine Aminotransferase (ALT/SGPT) 88 U/L (12-78) H Alkaline Phosphatase 113 U/L (46-116) Total Protein 6.8 G/DL (6.4-8.2) Albumin 1.3 G/DL (3.4-5.0) L Globulin 5.5 g/dL Albumin/Globulin Ratio 0.2 (1.0-2.7) L CHRISTINA KIDD M.D. September 24, 2017 09:32
[2017-09-24] MEDS: Pantoprazole Inj IVP SCH ×2 (09:35→21:21)
[2017-09-24] MEDS: Minocycline HCl 50mg cap ORAL SCH ×2 (09:35→22:35)
[2017-09-24] MEDS: Heparin 5000 units/ml inj SUBQ SCH ×2 (09:36→21:23)
[2017-09-24] MEDS: Nitroglycerin Patch 0.4mg TDERMAL SCH (09:41)
--- NOTE | 2017-09-24 10:51 | Infectious Diseases Prog Note ---
Assessment/Plan Assessment/Plan A: Sepsis/septic shock off pressors Bacteremia with Staph capitis/ contamination Pneumonia with MDR Acinetobacter & Proteus UTI with Proteus Respiratory failure ATN DM Anemia Elevated transaminase P: continue Zosyn, Minocycline & Colistin inhaler Subjective ROS Limited/Unobtainable: Yes Respiratory: Reports: other - failed weaning Neurologic: Reports: confusion, other - on restraint Allergies: Coded Allergies: No Known Allergies (Verified , 01/02/09) Objective Vital Signs Last 24 Hour Vital Signs Date Time Temp Pulse Resp B/P (MAP) Pulse Ox O2 Delivery O2 Flow Rate FiO2 09/24/17 10:32 57 21 40 09/24/17 09:52 58 49 40 09/24/17 09:50 100 09/24/17 09:41 120/63 09/24/17 09:25 40 09/24/17 09:00 98.7 60 19 120/63 100 Mechanical Ventilator 40 98.7 09/24/17 08:00 40 09/24/17 08:00 64 09/24/17 08:00 62 19 117/61 100 Mechanical Ventilator 40 09/24/17 07:35 58 16 100 Mechanical Ventilator 40 09/24/17 07:25 57 16 40 09/24/17 07:23 58 16 100 Mechanical Ventilator 40 09/24/17 07:23 40 09/24/17 07:23 61 16 100 Mechanical Ventilator 09/24/17 07:15 59 16 100 Mechanical Ventilator 40 09/24/17 07:00 60 20 116/55 100 Mechanical Ventilator 40 09/24/17 06:00 62 20 110/66 100 Mechanical Ventilator 40 09/24/17 05:41 134/62 09/24/17 05:21 64 24 40 09/24/17 05:00 62 22 134/62 100 Mechanical Ventilator 40 09/24/17 04:00 62 09/24/17 04:00 40 09/24/17 04:00 99.2 62 27 127/66 100 Mechanical Ventilator 40 99.2 09/24/17 03:00 62 27 129/77 100 Mechanical Ventilator 40 09/24/17 02:45 60 19 40 09/24/17 02:00 62 27 130/70 100 Mechanical Ventilator 40 09/24/17 01:00 62 22 115/64 100 Mechanical Ventilator 40 09/24/17 00:51 63 17 100 Mechanical Ventilator 09/24/17 00:50 63 17 40 09/24/17 00:45 62 16 100 Mechanical Ventilator 40 09/24/17 00:00 98.6 62 20 119/67 100 Mechanical Ventilator 40 98.6 09/24/17 00:00 62 09/24/17 00:00 40 09/23/17 23:54 124/68 09/23/17 23:00 64 22 124/68 100 Mechanical Ventilator 40 09/23/17 22:36 68 16 40 09/23/17 22:11 64 16 100 Mechanical Ventilator 50.0 40 09/23/17 22:01 40 09/23/17 22:01 65 16 100 Mechanical Ventilator 50.0 40 09/23/17 22:00 63 18 133/72 100 Mechanical Ventilator 40 09/23/17 21:10 65 28 40 09/23/17 21:00 62 16 126/64 100 Mechanical Ventilator 40 09/23/17 20:00 98.5 62 22 125/72 99 Mechanical Ventilator 40 98.5 09/23/17 20:00 63 09/23/17 20:00 40 09/23/17 19:45 131/70 09/23/17 19:28 60 22 100 Mechanical Ventilator 09/23/17 19:21 60 25 99 Mechanical Ventilator 40 09/23/17 19:03 59 23 40 09/23/17 19:00 71 20 120/66 99 Mechanical Ventilator 40 09/23/17 18:00 99.2 77 20 130/66 99 Mechanical Ventilator 40 99.2 09/23/17 17:23 134/84 09/23/17 17:00 70 22 132/64 99 Mechanical Ventilator 40 09/23/17 16:37 63 16 40 09/23/17 16:00 40 09/23/17 16:00 66 20 118/70 99 Mechanical Ventilator 40 09/23/17 16:00 70 09/23/17 15:00 65 22 120/66 99 Mechanical Ventilator 40 09/23/17 15:00 61 16 40 09/23/17 14:00 98.9 62 20 125/73 99 Mechanical Ventilator 40 98.9 09/23/17 13:00 66 20 115/60 99 Mechanical Ventilator 40 09/23/17 12:53 60 16 100 Mechanical Ventilator 09/23/17 12:47 61 16 40 09/23/17 12:40 128/73 09/23/17 12:39 61 16 100 Mechanical Ventilator 40 09/23/17 12:00 67 09/23/17 12:00 64 20 119/65 99 Mechanical Ventilator 40 09/23/17 11:10 68 18 40 09/23/17 11:00 65 20 120/66 99 Mechanical Ventilator 40 Height (Feet): 5 Height (Inches): 8.00 Weight (Pounds): 216 HEENT: other - orally intubated Respiratory/Chest: lungs clear, other - on ventilator Cardiovascular: normal rate Abdomen: soft, non tender, other - GT feeding, rectal tube Extremities: other - edema of left hand Neurologic/Psychiatric: unresponsiveness Microbiology Date/Time Source Procedure Growth Status 09/23/17 20:30 Stool Clostridium difficile Toxin Assay - Final Complete Laboratory Tests Test 09/24/17 05:15 White Blood Count 13.7 K/UL (4.8-10.8) H Red Blood Count 3.19 M/UL (4.70-6.10) L Hemoglobin 9.1 G/DL (14.2-18.0) L Hematocrit 26.4 % (42.0-52.0) L Mean Corpuscular Volume 83 FL (80-99) Mean Corpuscular Hemoglobin 28.5 PG (27.0-31.0) Mean Corpuscular Hemoglobin Concent 34.5 G/DL (32.0-36.0) Red Cell Distribution Width 15.9 % (11.6-14.8) H Platelet Count 214 K/UL (150-450) Mean Platelet Volume 7.2 FL (6.5-10.1) Neutrophils (%) (Auto) 75.9 % (45.0-75.0) H Lymphocytes (%) (Auto) 12.6 % (20.0-45.0) L Monocytes (%) (Auto) 3.5 % (1.0-10.0) Eosinophils (%) (Auto) 7.8 % (0.0-3.0) H Basophils (%) (Auto) 0.3 % (0.0-2.0) Sodium Level 138 MMOL/L (136-145) Potassium Level 3.7 MMOL/L (3.5-5.1) Chloride Level 104 MMOL/L (98-107) Carbon Dioxide Level 24 MMOL/L (21-32) Anion Gap 10 mmol/L (5-15) Blood Urea Nitrogen 91 mg/dL (7-18) H Creatinine 2.6 MG/DL (0.55-1.30) H Estimat Glomerular Filtration Rate mL/min (>60) Glucose Level 156 MG/DL (74-106) H Calcium Level 7.9 MG/DL (8.5-10.1) L Total Bilirubin 0.5 MG/DL (0.2-1.0) Aspartate Amino Transf (AST/SGOT) 84 U/L (15-37) H Alanine Aminotransferase (ALT/SGPT) 88 U/L (12-78) H Alkaline Phosphatase 113 U/L (46-116) Total Protein 6.8 G/DL (6.4-8.2) Albumin 1.3 G/DL (3.4-5.0) L Globulin 5.5 g/dL Albumin/Globulin Ratio 0.2 (1.0-2.7) L Current Medications Medications (Trade) Dose Ordered Sig/Keira Route PRN Reason Start Time Stop Time Status Last Admin Dose Admin Acetaminophen (Tylenol) 650 mg Q6H PRN NG Mild Pain/Temp > 100.5 09/22/17 20:00 10/22/17 19:59 Albuterol/ Ipratropium (Albuterol/ Ipratropium) 3 ml Q4H PRN HHN Shortness of Breath 09/19/17 14:45 09/24/17 14:44 Albuterol/ Ipratropium (Albuterol/ Ipratropium) 3 ml Q6HRT HHN 09/19/17 19:00 09/24/17 18:59 09/24/17 07:29 Colistimethate Sodium (Colistin *inhalation use only*) 75 mg Q12HR@10,22 INH 09/23/17 22:00 09/30/17 21:59 09/24/17 07:29 Dextrose (Dextrose 50%) 25 ml STAT PRN IV Hypoglycemia 09/19/17 14:15 10/19/17 14:14 Dextrose (Dextrose 50%) 50 ml STAT PRN IV Hypoglycemia 09/19/17 14:15 10/19/17 14:14 Heparin Sodium (Porcine) (Heparin 5000 units/ml) 5,000 units EVERY 12 HOURS SUBQ 09/19/17 21:00 10/19/17 20:59 09/24/17 09:36 Insulin Aspart (NovoLOG) EVERY 6 HOURS SUBQ 09/22/17 00:00 10/19/17 16:29 09/24/17 05:42 Isosorbide Dinitrate (Isordil) 10 mg Q6HR NG 09/22/17 18:00 10/22/17 17:59 09/24/17 05:41 Lorazepam (Ativan 2mg/ml 1ml) 1 mg Q4H PRN IV For Anxiety 09/24/17 10:30 10/01/17 10:29 Metoclopramide HCl (Reglan) 5 mg EVERY 8 HOURS GT 09/20/17 14:00 10/20/17 13:59 09/24/17 05:40 Minocycline HCl (Minocin) 100 mg Q12HR ORAL 09/23/17 21:00 09/30/17 20:59 09/24/17 09:35 Nitroglycerin (Ntg) 1 patch Q24H TDERMAL 09/20/17 10:30 10/20/17 10:29 09/24/17 09:41 Norepinephrine Bitartrate 8 mg/ Dextrose 250 ml @ 0 mls/hr Q24H IV 09/19/17 19:45 10/19/17 19:44 09/19/17 21:01 Pantoprazole (Protonix) 40 mg EVERY 12 HOURS IVP 09/19/17 21:00 10/19/17 20:59 09/24/17 09:35 Piperacillin Sod/ Tazobactam Sod 2.25 gm/Dextrose 55 ml @ 110 mls/hr Q8HR IVPB 09/19/17 22:00 09/28/17 23:00 09/24/17 05:40 ANDRES SAVAGE September 24, 2017 10:51
--- NOTE | 2017-09-24 14:59 | Nephrology Progress Note ---
Assessment/Plan Problem List: (1) ATN (acute tubular necrosis) (2) Septic shock (3) Respiratory failure (4) Diabetes mellitus Assessment Acute Renal failure- Cr lower ? Underlying CKD Component of dehydration, Pre renal state and Hypernatremia Acute respiratory failure, Aspiartion Pneumonia, UTI Septic Shock H/O Multiple Strokes Anemia Elevated Troponin Hyperglycemia PEG Plan transfused add isordil Pulm support Hydrate- avoid nephrotoxics Monitor renal parameters Hemodynamic support IV iron Nitro and asa GT feeding Per orders Subjective ROS Limited/Unobtainable: Yes Objective Objective Last 24 Hour Vital Signs Date Time Temp Pulse Resp B/P (MAP) Pulse Ox O2 Delivery O2 Flow Rate FiO2 09/24/17 13:04 65 16 100 Mechanical Ventilator 09/24/17 13:00 62 19 102/54 100 Mechanical Ventilator 40 09/24/17 12:56 59 16 40 09/24/17 12:50 59 16 100 Mechanical Ventilator 40 09/24/17 12:05 111/63 09/24/17 12:00 98.7 60 16 116/63 100 Mechanical Ventilator 40 98.7 09/24/17 12:00 40 09/24/17 12:00 60 09/24/17 11:00 62 19 107/60 100 Mechanical Ventilator 40 09/24/17 10:32 57 21 40 09/24/17 10:00 61 18 110/65 100 Mechanical Ventilator 40 09/24/17 09:52 58 49 40 09/24/17 09:50 100 09/24/17 09:41 120/63 09/24/17 09:25 40 09/24/17 09:00 98.7 60 19 120/63 100 Mechanical Ventilator 40 98.7 09/24/17 08:00 40 09/24/17 08:00 64 09/24/17 08:00 62 19 117/61 100 Mechanical Ventilator 40 09/24/17 07:35 58 16 100 Mechanical Ventilator 40 09/24/17 07:25 57 16 40 09/24/17 07:23 58 16 100 Mechanical Ventilator 40 09/24/17 07:23 40 09/24/17 07:23 61 16 100 Mechanical Ventilator 09/24/17 07:15 59 16 100 Mechanical Ventilator 40 09/24/17 07:00 60 20 116/55 100 Mechanical Ventilator 40 09/24/17 06:00 62 20 110/66 100 Mechanical Ventilator 40 09/24/17 05:41 134/62 09/24/17 05:21 64 24 40 09/24/17 05:00 62 22 134/62 100 Mechanical Ventilator 40 09/24/17 04:00 62 09/24/17 04:00 40 09/24/17 04:00 99.2 62 27 127/66 100 Mechanical Ventilator 40 99.2 09/24/17 03:00 62 27 129/77 100 Mechanical Ventilator 40 09/24/17 02:45 60 19 40 09/24/17 02:00 62 27 130/70 100 Mechanical Ventilator 40 09/24/17 01:00 62 22 115/64 100 Mechanical Ventilator 40 09/24/17 00:51 63 17 100 Mechanical Ventilator 09/24/17 00:50 63 17 40 09/24/17 00:45 62 16 100 Mechanical Ventilator 40 09/24/17 00:00 98.6 62 20 119/67 100 Mechanical Ventilator 40 98.6 09/24/17 00:00 62 09/24/17 00:00 40 09/23/17 23:54 124/68 09/23/17 23:00 64 22 124/68 100 Mechanical Ventilator 40 09/23/17 22:36 68 16 40 09/23/17 22:11 64 16 100 Mechanical Ventilator 50.0 40 09/23/17 22:01 40 09/23/17 22:01 65 16 100 Mechanical Ventilator 50.0 40 09/23/17 22:00 63 18 133/72 100 Mechanical Ventilator 40 09/23/17 21:10 65 28 40 09/23/17 21:00 62 16 126/64 100 Mechanical Ventilator 40 09/23/17 20:00 98.5 62 22 125/72 99 Mechanical Ventilator 40 98.5 09/23/17 20:00 63 09/23/17 20:00 40 09/23/17 19:45 131/70 09/23/17 19:28 60 22 100 Mechanical Ventilator 09/23/17 19:21 60 25 99 Mechanical Ventilator 40 09/23/17 19:03 59 23 40 09/23/17 19:00 71 20 120/66 99 Mechanical Ventilator 40 09/23/17 18:00 99.2 77 20 130/66 99 Mechanical Ventilator 40 99.2 09/23/17 17:23 134/84 09/23/17 17:00 70 22 132/64 99 Mechanical Ventilator 40 09/23/17 16:37 63 16 40 09/23/17 16:00 40 09/23/17 16:00 66 20 118/70 99 Mechanical Ventilator 40 09/23/17 16:00 70 09/23/17 15:00 65 22 120/66 99 Mechanical Ventilator 40 09/23/17 15:00 61 16 40 Intake and Output 09/23/17 09/24/17 19:00 07:00 Intake Total 1070 ml 1695 ml Output Total 460 ml 900 ml Balance 610 ml 795 ml Free Water 50 ml IV Total 710 ml 1085 ml Tube Feeding 360 ml 360 ml Other 200 ml Output Urine Total 460 ml 900 ml # Bowel Movements 5 3 Laboratory Tests 09/24/17 05:15: White Blood Count 13.7H, Red Blood Count 3.19L, Hemoglobin 9.1L, Hematocrit 26.4L, Mean Corpuscular Volume 83, Mean Corpuscular Hemoglobin 28.5, Mean Corpuscular Hemoglobin Concent 34.5, Red Cell Distribution Width 15.9H, Platelet Count 214, Mean Platelet Volume 7.2, Neutrophils (%) (Auto) 75.9H, Lymphocytes (%) (Auto) 12.6L, Monocytes (%) (Auto) 3.5, Eosinophils (%) (Auto) 7.8H, Basophils (%) (Auto) 0.3, Sodium Level 138, Potassium Level 3.7, Chloride Level 104, Carbon Dioxide Level 24, Anion Gap 10, Blood Urea Nitrogen 91H, Creatinine 2.6H, Estimat Glomerular Filtration Rate , Glucose Level 156H, Calcium Level 7.9L, Total Bilirubin 0.5, Aspartate Amino Transf (AST/SGOT) 84H, Alanine Aminotransferase (ALT/SGPT) 88H, Alkaline Phosphatase 113, Total Protein 6.8, Albumin 1.3L, Globulin 5.5, Albumin/Globulin Ratio 0.2L Height (Feet): 5 Height (Inches): 8.00 Weight (Pounds): 216 General Appearance: no apparent distress Cardiovascular: normal rate Respiratory/Chest: decreased breath sounds Abdomen: soft ROSE MARY REID September 24, 2017 14:59
[2017-09-24] MEDS ORDERED: Tubing IV Secondary IV ONE (15:25)
[2017-09-24] MEDS ORDERED: D5NS 1000ml IV ONE (15:25)
--- NOTE | 2017-09-24 21:34 | Internal Med Progress Note ---
Subjective Date of Service: September 24, 2017 Physician Name Staci Chacon Attending Physician Staci Chacon Past Medical History no change Past Surgical History no change Current Medications Medications (Trade) Dose Ordered Sig/Keira Route PRN Reason Start Time Stop Time Status Last Admin Dose Admin Acetaminophen (Tylenol) 650 mg Q6H PRN NG Mild Pain/Temp > 100.5 09/22/17 20:00 10/22/17 19:59 Colistimethate Sodium (Colistin *inhalation use only*) 75 mg Q12HR@10,22 INH 09/23/17 22:00 09/30/17 21:59 09/24/17 07:29 Dextrose (Dextrose 50%) 25 ml STAT PRN IV Hypoglycemia 09/19/17 14:15 10/19/17 14:14 Dextrose (Dextrose 50%) 50 ml STAT PRN IV Hypoglycemia 09/19/17 14:15 10/19/17 14:14 Heparin Sodium (Porcine) (Heparin 5000 units/ml) 5,000 units EVERY 12 HOURS SUBQ 09/19/17 21:00 10/19/17 20:59 09/24/17 21:23 Insulin Aspart (NovoLOG) EVERY 6 HOURS SUBQ 09/22/17 00:00 10/19/17 16:29 09/24/17 05:42 Isosorbide Dinitrate (Isordil) 10 mg Q6HR NG 09/22/17 18:00 10/22/17 17:59 09/24/17 18:57 Lorazepam (Ativan 2mg/ml 1ml) 1 mg Q4H PRN IV For Anxiety 09/24/17 10:30 10/01/17 10:29 Metoclopramide HCl (Reglan) 5 mg EVERY 8 HOURS GT 09/20/17 14:00 10/20/17 13:59 09/24/17 21:24 Minocycline HCl (Minocin) 100 mg Q12HR ORAL 09/23/17 21:00 09/30/17 20:59 09/24/17 09:35 Nitroglycerin (Ntg) 1 patch Q24H TDERMAL 09/20/17 10:30 10/20/17 10:29 09/24/17 09:41 Norepinephrine Bitartrate 8 mg/ Dextrose 250 ml @ 0 mls/hr Q24H IV 09/19/17 19:45 10/19/17 19:44 09/19/17 21:01 Pantoprazole (Protonix) 40 mg EVERY 12 HOURS IVP 09/19/17 21:00 10/19/17 20:59 09/24/17 21:21 Piperacillin Sod/ Tazobactam Sod 2.25 gm/Dextrose 55 ml @ 110 mls/hr Q8HR IVPB 09/19/17 22:00 09/28/17 23:00 09/24/17 14:00 Allergies: Coded Allergies: No Known Allergies (Verified , 01/02/09) ROS Limited/Unobtainable: Yes Subjective remains intubated, off pressor Objective Last Vital Signs Date Time Temp Pulse Resp B/P (MAP) Pulse Ox O2 Delivery O2 Flow Rate FiO2 09/24/17 19:45 130/95 09/24/17 19:15 62 20 40 09/24/17 19:00 100 Mechanical Ventilator 09/24/17 16:00 98.7 98.7 09/23/17 22:11 50.0 General Appearance: no apparent distress Neck: normal inspection Cardiovascular: normal rate, systolic murmur Respiratory/Chest: decreased breath sounds, rhonchi - left Abdomen: non tender, soft, other - PEG Extremities: non-tender, normal inspection Neurologic: other - right hemiparesis Laboratory Tests Test 09/24/17 05:15 White Blood Count 13.7 K/UL (4.8-10.8) H Red Blood Count 3.19 M/UL (4.70-6.10) L Hemoglobin 9.1 G/DL (14.2-18.0) L Hematocrit 26.4 % (42.0-52.0) L Mean Corpuscular Volume 83 FL (80-99) Mean Corpuscular Hemoglobin 28.5 PG (27.0-31.0) Mean Corpuscular Hemoglobin Concent 34.5 G/DL (32.0-36.0) Red Cell Distribution Width 15.9 % (11.6-14.8) H Platelet Count 214 K/UL (150-450) Mean Platelet Volume 7.2 FL (6.5-10.1) Neutrophils (%) (Auto) 75.9 % (45.0-75.0) H Lymphocytes (%) (Auto) 12.6 % (20.0-45.0) L Monocytes (%) (Auto) 3.5 % (1.0-10.0) Eosinophils (%) (Auto) 7.8 % (0.0-3.0) H Basophils (%) (Auto) 0.3 % (0.0-2.0) Sodium Level 138 MMOL/L (136-145) Potassium Level 3.7 MMOL/L (3.5-5.1) Chloride Level 104 MMOL/L (98-107) Carbon Dioxide Level 24 MMOL/L (21-32) Anion Gap 10 mmol/L (5-15) Blood Urea Nitrogen 91 mg/dL (7-18) H Creatinine 2.6 MG/DL (0.55-1.30) H Estimat Glomerular Filtration Rate mL/min (>60) Glucose Level 156 MG/DL (74-106) H Calcium Level 7.9 MG/DL (8.5-10.1) L Total Bilirubin 0.5 MG/DL (0.2-1.0) Aspartate Amino Transf (AST/SGOT) 84 U/L (15-37) H Alanine Aminotransferase (ALT/SGPT) 88 U/L (12-78) H Alkaline Phosphatase 113 U/L (46-116) C-Reactive Protein, Quantitative > 70.0 mg/dL (0.00-0.90) H Total Protein 6.8 G/DL (6.4-8.2) Albumin 1.3 G/DL (3.4-5.0) L Globulin 5.5 g/dL Albumin/Globulin Ratio 0.2 (1.0-2.7) L Microbiology Date/Time Source Procedure Growth Status 09/23/17 20:30 Stool Clostridium difficile Toxin Assay - Final Complete Intake and Output 09/23/17 09/24/17 19:00 07:00 Intake Total 1070 ml 1695 ml Output Total 460 ml 900 ml Balance 610 ml 795 ml Free Water 50 ml IV Total 710 ml 1085 ml Tube Feeding 360 ml 360 ml Other 200 ml Output Urine Total 460 ml 900 ml # Bowel Movements 5 3 Assessment/Plan Status: progressing Assessment/Plan MPRESSION: 1. Acute respiratory failure, intubated. 2. MDR Pneumonia likely aspiration pneumonia versus healthcare associated pneumonia. 3. Severe dehydration. 4. Hypernatremia. 5. Hyperkalemia. 6. Acute on chronic renal failure stage 3. 7. Uremia due to prerenal. 8. Transaminitis. 9. Elevated lipase. 10. Severe protein-calorie malnutrition. 11. History of chronic CVA with right hemiparesis. 13. History of organic brain disease. 14. History of advanced dementia. 15. Status post gastrostomy tube placement. 16. History of neurogenic bladder/chronic indwelling Matson catheter. 17. Hyperlipidemia. 18. Coronary artery disease. PLAN: intensive care unit.. wean vent as tolerated intravenous fluid. per renal may consider dc lyte replete Pulmonary nebulizer. off pressor for now PRBC tx as needed DVT and GI prophylaxis. IV abx IV Fe Continue with the Matson catheter. Aspiration precaution. electrolytes replete as indicated. enteral feeding as tolerated over 35 min spent in critical care in ICU d/w software developer consultant-Dr Olegario Chacon MD [phone] STACI CHACON September 24, 2017 21:34
[2017-09-25] VITALS (24 sets, daily range): BP systolic 120–168; BP diastolic 60–86
[2017-09-25 04:28] LABS: BASOPHILS % (AUTO) 0.3 % (0.0-2.0); EOSINOPHILS % (AUTO) 9.5 % (0.0-3.0); HEMOGLOBIN 9.3 G/DL (14.2-18.0); LYMPHOCYTES % (AUTO) 16.2 % (20.0-45.0); MEAN CORPUSCULAR VOLUME 84 FL (80-99); MONOCYTES % (AUTO) 4.7 % (1.0-10.0); NEUTROPHILS % (AUTO) 69.4 % (45.0-75.0); PLATELET COUNT 192 K/UL (150-450); RED BLOOD COUNT 3.56 M/UL (4.70-6.10); RED CELL DISTRIBUTION WIDTH 16.4 % (11.6-14.8)
[2017-09-25 04:55] LABS: ALANINE AMINOTRANSFERASE 89 U/L (12-78); ALBUMIN 1.4 G/DL (3.4-5.0); ALBUMIN/GLOBULIN RATIO 0.2 (1.0-2.7); ALKALINE PHOSPHATASE 119 U/L (46-116); ANION GAP 8 mmol/L (5-15); ASPARTATE AMINO TRANSFERASE 77 U/L (15-37); BILIRUBIN,TOTAL 0.4 MG/DL (0.2-1.0); BLOOD UREA NITROGEN 81 mg/dL (7-18); CALCIUM 8.5 MG/DL (8.5-10.1); CARBON DIOXIDE 27 MMOL/L (21-32); CHLORIDE 106 MMOL/L (98-107); CREATININE 2.7 MG/DL (0.55-1.30); PHOSPHORUS 5.1 MG/DL (2.5-4.9); POTASSIUM 3.6 MMOL/L (3.5-5.1); SODIUM 141 MMOL/L (136-145)
[2017-09-25] MEDS: Metoclopramide 10mg/10ml Liq GT SCH (05:31)
[2017-09-25] MEDS: Piperacillin/Tazobactam 2.25 GM in D5W 55 ML IVPB SCH ×3 (05:32→21:00)
[2017-09-25] MEDS: NovoLOG Insulin Flexpen SUBQ SCH ×3 (06:48→18:51)
--- NOTE | 2017-09-25 09:23 | Pulmonolgy Critical Care Note ---
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 (4) Sepsis (5) UTI (urinary tract infection) Assessment & Plan: ESLB proteus (6) Renal failure (7) Feeding by G-tube (8) Acute encephalopathy (9) HCAP (healthcare-associated pneumonia) (10) s/p multiple lacunar strokes, old (11) recent L MCA ischemic stroke (12) Bacterial infection due to Staphylococcus Assessment & Plan: S capitis 5/4, repeat CX's NG Respiratory: monitor respiratory rate, CXR, ABG, weaning trial, other - RTC& PRN HHN's Cardiac: continue to monitor HR/BP Renal: check electrolytes, other - lasix 20 IV x 1 Infectious Disease: continue antibiotics - per ID Gastrointestinal: hold feedings - for SBT Endocrine: monitor blood sugar Hematologic: monitor H/H Neurologic: keep patient comfortable Prophylaxis: Protonix, Heparin Disposition: keep in ICU Time Spent (Minutes): 60 Notes Reviewed: quality system manager, cardio, renal, ID Discussed with: nurses, consultants, family member Critical Care - Objective Last 24 Hour Vital Signs Date Time Temp Pulse Resp B/P (MAP) Pulse Ox O2 Delivery O2 Flow Rate FiO2 09/25/17 08:44 61 20 35 09/25/17 07:08 61 17 40 09/25/17 06:00 61 22 150/67 99 Mechanical Ventilator 40 09/25/17 05:32 149/72 09/25/17 05:26 62 22 40 09/25/17 05:00 61 21 149/72 100 Mechanical Ventilator 40 09/25/17 04:00 99.0 60 25 146/85 100 Mechanical Ventilator 40 99.0 09/25/17 04:00 60 09/25/17 04:00 40 09/25/17 03:24 58 28 40 09/25/17 03:00 59 19 152/77 99 Mechanical Ventilator 40 09/25/17 02:00 59 20 139/67 100 Mechanical Ventilator 40 09/25/17 01:00 58 22 134/67 100 Mechanical Ventilator 40 09/25/17 00:55 59 26 40 09/25/17 00:00 58 09/25/17 00:00 40 09/25/17 00:00 98.0 59 19 120/70 99 Mechanical Ventilator 40 98.0 09/24/17 23:50 120/70 09/24/17 23:24 62 16 40 09/24/17 23:00 64 20 136/74 100 Mechanical Ventilator 40 09/24/17 22:00 63 16 100 Mechanical Ventilator 40 09/24/17 22:00 63 20 142/88 100 Mechanical Ventilator 40 09/24/17 21:42 64 18 100 Mechanical Ventilator 40 09/24/17 21:42 40 09/24/17 21:32 62 20 Mechanical Ventilator 40 09/24/17 21:29 64 18 40 09/24/17 21:00 62 20 140/82 100 Mechanical Ventilator 40 09/24/17 20:00 40 09/24/17 20:00 65 09/24/17 20:00 98.5 65 18 130/95 100 Mechanical Ventilator 40 98.5 09/24/17 19:45 130/95 09/24/17 19:15 62 20 40 09/24/17 19:00 62 19 132/59 100 Mechanical Ventilator 40 09/24/17 18:57 139/66 09/24/17 18:00 63 17 128/63 100 Mechanical Ventilator 40 09/24/17 17:00 62 19 119/54 100 Mechanical Ventilator 40 09/24/17 16:55 61 26 40 09/24/17 16:00 98.7 60 16 117/63 100 Mechanical Ventilator 40 98.7 09/24/17 16:00 40 09/24/17 16:00 62 09/24/17 15:16 61 18 40 09/24/17 15:00 60 19 107/54 100 Mechanical Ventilator 40 09/24/17 14:00 62 18 110/55 100 Mechanical Ventilator 40 09/24/17 13:04 65 16 100 Mechanical Ventilator 09/24/17 13:00 62 19 102/54 100 Mechanical Ventilator 40 09/24/17 12:56 59 16 40 09/24/17 12:50 59 16 100 Mechanical Ventilator 40 09/24/17 12:05 111/63 09/24/17 12:00 98.7 60 16 116/63 100 Mechanical Ventilator 40 98.7 09/24/17 12:00 40 09/24/17 12:00 60 09/24/17 11:00 62 19 107/60 100 Mechanical Ventilator 40 09/24/17 10:32 57 21 40 09/24/17 10:00 61 18 110/65 100 Mechanical Ventilator 40 09/24/17 09:52 58 49 40 09/24/17 09:50 100 09/24/17 09:41 120/63 09/24/17 09:25 40 Status: awake Condition: critical HEENT: atraumatic, normocephalic Lungs: rhonchi Heart: HR/BP stable Abdomen: soft, non-tender, active bowel sounds, feeding tube Extremities: no C/C/E Decubiti: location - sacrum, penis, stage - 3 Micro: Microbiology Date/Time Source Procedure Growth Status 09/23/17 20:30 Stool Clostridium difficile Toxin Assay - Final Complete Accucheck: 133 Critical Care - Subjective ROS Limited/Unobtainable: Yes ICU Day: 7 Intubation Day: 7 Interval Events: Failed SBT Minimal secretions Lethargic but arousable -1.7 Condition: critical IV Access: peripheral EKG Rhythm: Sinus Rhythm FI02: 35 Vent Support Breath Rate: 16 Vent Support Mode: AC Vent Tidal Volume: 450 Sputum Amount: Small PEEP: 5.0 PIP: 26 Tube Feeding Amount: 30 I&O: Intake and Output 09/24/17 09/25/17 19:00 07:00 Intake Total 385 ml 470 ml Output Total 1230 ml 1100 ml Balance -845 ml -630 ml IV Total 55 ml 110 ml Tube Feeding 330 ml 330 ml Other 30 ml Output Urine Total 1230 ml 1000 ml Stool Total 100 ml Subjective: Unable to obtain ET-Tube: 8.0 ET Position: 24 Labs: Laboratory Tests Test 09/25/17 04:00 09/25/17 08:05 White Blood Count 13.0 K/UL (4.8-10.8) H Red Blood Count 3.56 M/UL (4.70-6.10) L Hemoglobin 9.3 G/DL (14.2-18.0) L Hematocrit 30.0 % (42.0-52.0) L Mean Corpuscular Volume 84 FL (80-99) Mean Corpuscular Hemoglobin 26.2 PG (27.0-31.0) L Mean Corpuscular Hemoglobin Concent 31.1 G/DL (32.0-36.0) L Red Cell Distribution Width 16.4 % (11.6-14.8) H Platelet Count 192 K/UL (150-450) Mean Platelet Volume 6.2 FL (6.5-10.1) L Neutrophils (%) (Auto) 69.4 % (45.0-75.0) Lymphocytes (%) (Auto) 16.2 % (20.0-45.0) L Monocytes (%) (Auto) 4.7 % (1.0-10.0) Eosinophils (%) (Auto) 9.5 % (0.0-3.0) H Basophils (%) (Auto) 0.3 % (0.0-2.0) Sodium Level 141 MMOL/L (136-145) Potassium Level 3.6 MMOL/L (3.5-5.1) Chloride Level 106 MMOL/L (98-107) Carbon Dioxide Level 27 MMOL/L (21-32) Anion Gap 8 mmol/L (5-15) Blood Urea Nitrogen 81 mg/dL (7-18) H Creatinine 2.7 MG/DL (0.55-1.30) H Estimat Glomerular Filtration Rate mL/min (>60) Glucose Level 112 MG/DL (74-106) H Uric Acid 7.3 MG/DL (2.6-7.2) H Calcium Level 8.5 MG/DL (8.5-10.1) Phosphorus Level 5.1 MG/DL (2.5-4.9) H Magnesium Level 2.8 MG/DL (1.8-2.4) H Total Bilirubin 0.4 MG/DL (0.2-1.0) Aspartate Amino Transf (AST/SGOT) 77 U/L (15-37) H Alanine Aminotransferase (ALT/SGPT) 89 U/L (12-78) H Alkaline Phosphatase 119 U/L (46-116) H Pro-B-Type Natriuretic Peptide 6793 pg/mL (0-125) H Total Protein 7.1 G/DL (6.4-8.2) Albumin 1.4 G/DL (3.4-5.0) L Globulin 5.7 g/dL Albumin/Globulin Ratio 0.2 (1.0-2.7) L Arterial Blood pH 7.413 (7.350-7.450) Arterial Blood Partial Pressure CO2 44.3 mmHg (35.0-45.0) Arterial Blood Partial Pressure O2 102.9 mmHg (75.0-100.0) H Arterial Blood HCO3 27.6 mmol/L (22.0-26.0) H Arterial Blood Oxygen Saturation 97.5 % (92.0-98.0) Arterial Blood Base Excess 2.7 Librado Test Positive CHRISTINA KIDD M.D. September 25, 2017 09:23
[2017-09-25] MEDS: Pantoprazole Inj IVP SCH (09:57)
[2017-09-25] MEDS: Nitroglycerin Patch 0.4mg TDERMAL SCH (09:58)
[2017-09-25] MEDS: Heparin 5000 units/ml inj SUBQ SCH ×2 (09:59→20:46)
[2017-09-25] MEDS: Minocycline HCl 50mg cap ORAL SCH ×2 (10:00→20:59)
[2017-09-25] MEDS ORDERED: fentaNYL 100 mcg/2 mL IV SCH (10:00)
[2017-09-25] MEDS ORDERED: Albuterol/Ipratropium 3ml neb HHN PRN (10:00)
[2017-09-25] MEDS: Colistin for inhalation INH SCH ×2 (10:03→21:35)
--- NOTE | 2017-09-25 11:11 | Diagnostic Imaging Report ---
Indication: Dyspnea Comparison: 09/22/2017 A single view chest radiograph was obtained. Findings: Airspace disease in the right upper lobe and mild prominence of the interstitial densities noted. The heart is borderline enlarged. Right jugular line was removed. Endotracheal tube remains in good position. IMPRESSION: Suggestion of mild interstitial edema/CHF. Possible superimposed pneumonia with airspace disease in the right perihilar region. Please correlate clinically.
--- NOTE | 2017-09-25 11:28 | GI Progress Note ---
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 Taveras. Assessment/Plan Assessment - Anemia - abnormal LFT - Resp failure - Renal failure - Sepsis - CVA / (R) taylor - dysphagia / GT - diarrhea Recommendations - dc PPI >> H2B BID - dc reglan given renal insufficiency - Imodium prn - TF - check abd u/s - check OB, fu hep panel - transufse PRN - abx - s/p EGD/colon 07/2017 at [facility] (HH,polyps, diverticulosis) - fu labs The patient was seen and examined at bedside and all new and available data was reviewed in the patients chart. I agree with the above findings, impression and plan. (Patient seen earlier today. Signature stamp does not reflect patient encounter time.). - Villa Taveras MD Subjective Subjective limited Objective Last 24 Hour Vital Signs Date Time Temp Pulse Resp B/P (MAP) Pulse Ox O2 Delivery O2 Flow Rate FiO2 09/25/17 10:38 61 47 30 09/25/17 10:20 61 31 100 Mechanical Ventilator 30 09/25/17 10:05 40 09/25/17 10:04 62 44 99 Mechanical Ventilator 30 09/25/17 10:03 99 09/25/17 09:58 147/69 09/25/17 09:56 99.0 09/25/17 08:44 61 20 35 09/25/17 07:08 61 17 40 09/25/17 06:00 61 22 150/67 99 Mechanical Ventilator 40 09/25/17 05:32 149/72 09/25/17 05:26 62 22 40 09/25/17 05:00 61 21 149/72 100 Mechanical Ventilator 40 09/25/17 04:00 99.0 60 25 146/85 100 Mechanical Ventilator 40 99.0 09/25/17 04:00 60 09/25/17 04:00 40 09/25/17 03:24 58 28 40 09/25/17 03:00 59 19 152/77 99 Mechanical Ventilator 40 09/25/17 02:00 59 20 139/67 100 Mechanical Ventilator 40 09/25/17 01:00 58 22 134/67 100 Mechanical Ventilator 40 09/25/17 00:55 59 26 40 09/25/17 00:00 58 09/25/17 00:00 40 09/25/17 00:00 98.0 59 19 120/70 99 Mechanical Ventilator 40 98.0 09/24/17 23:50 120/70 09/24/17 23:24 62 16 40 09/24/17 23:00 64 20 136/74 100 Mechanical Ventilator 40 09/24/17 22:00 63 16 100 Mechanical Ventilator 40 09/24/17 22:00 63 20 142/88 100 Mechanical Ventilator 40 09/24/17 21:42 64 18 100 Mechanical Ventilator 40 09/24/17 21:42 40 09/24/17 21:32 62 20 Mechanical Ventilator 40 09/24/17 21:29 64 18 40 09/24/17 21:00 62 20 140/82 100 Mechanical Ventilator 40 09/24/17 20:00 40 09/24/17 20:00 65 09/24/17 20:00 98.5 65 18 130/95 100 Mechanical Ventilator 40 98.5 09/24/17 19:45 130/95 09/24/17 19:15 62 20 40 09/24/17 19:00 62 19 132/59 100 Mechanical Ventilator 40 09/24/17 18:57 139/66 09/24/17 18:00 63 17 128/63 100 Mechanical Ventilator 40 09/24/17 17:00 62 19 119/54 100 Mechanical Ventilator 40 09/24/17 16:55 61 26 40 09/24/17 16:00 98.7 60 16 117/63 100 Mechanical Ventilator 40 98.7 09/24/17 16:00 40 09/24/17 16:00 62 09/24/17 15:16 61 18 40 09/24/17 15:00 60 19 107/54 100 Mechanical Ventilator 40 09/24/17 14:00 62 18 110/55 100 Mechanical Ventilator 40 09/24/17 13:04 65 16 100 Mechanical Ventilator 09/24/17 13:00 62 19 102/54 100 Mechanical Ventilator 40 09/24/17 12:56 59 16 40 09/24/17 12:50 59 16 100 Mechanical Ventilator 40 09/24/17 12:05 111/63 09/24/17 12:00 98.7 60 16 116/63 100 Mechanical Ventilator 40 98.7 09/24/17 12:00 40 09/24/17 12:00 60 Intake and Output 09/24/17 09/25/17 19:00 07:00 Intake Total 385 ml 470 ml Output Total 1230 ml 1100 ml Balance -845 ml -630 ml IV Total 55 ml 110 ml Tube Feeding 330 ml 330 ml Other 30 ml Output Urine Total 1230 ml 1000 ml Stool Total 100 ml Laboratory Tests Test 09/25/17 04:00 09/25/17 08:05 White Blood Count 13.0 K/UL (4.8-10.8) H Red Blood Count 3.56 M/UL (4.70-6.10) L Hemoglobin 9.3 G/DL (14.2-18.0) L Hematocrit 30.0 % (42.0-52.0) L Mean Corpuscular Volume 84 FL (80-99) Mean Corpuscular Hemoglobin 26.2 PG (27.0-31.0) L Mean Corpuscular Hemoglobin Concent 31.1 G/DL (32.0-36.0) L Red Cell Distribution Width 16.4 % (11.6-14.8) H Platelet Count 192 K/UL (150-450) Mean Platelet Volume 6.2 FL (6.5-10.1) L Neutrophils (%) (Auto) 69.4 % (45.0-75.0) Lymphocytes (%) (Auto) 16.2 % (20.0-45.0) L Monocytes (%) (Auto) 4.7 % (1.0-10.0) Eosinophils (%) (Auto) 9.5 % (0.0-3.0) H Basophils (%) (Auto) 0.3 % (0.0-2.0) Sodium Level 141 MMOL/L (136-145) Potassium Level 3.6 MMOL/L (3.5-5.1) Chloride Level 106 MMOL/L (98-107) Carbon Dioxide Level 27 MMOL/L (21-32) Anion Gap 8 mmol/L (5-15) Blood Urea Nitrogen 81 mg/dL (7-18) H Creatinine 2.7 MG/DL (0.55-1.30) H Estimat Glomerular Filtration Rate mL/min (>60) Glucose Level 112 MG/DL (74-106) H Uric Acid 7.3 MG/DL (2.6-7.2) H Calcium Level 8.5 MG/DL (8.5-10.1) Phosphorus Level 5.1 MG/DL (2.5-4.9) H Magnesium Level 2.8 MG/DL (1.8-2.4) H Total Bilirubin 0.4 MG/DL (0.2-1.0) Aspartate Amino Transf (AST/SGOT) 77 U/L (15-37) H Alanine Aminotransferase (ALT/SGPT) 89 U/L (12-78) H Alkaline Phosphatase 119 U/L (46-116) H Pro-B-Type Natriuretic Peptide 6793 pg/mL (0-125) H Total Protein 7.1 G/DL (6.4-8.2) Albumin 1.4 G/DL (3.4-5.0) L Globulin 5.7 g/dL Albumin/Globulin Ratio 0.2 (1.0-2.7) L Arterial Blood pH 7.413 (7.350-7.450) Arterial Blood Partial Pressure CO2 44.3 mmHg (35.0-45.0) Arterial Blood Partial Pressure O2 102.9 mmHg (75.0-100.0) H Arterial Blood HCO3 27.6 mmol/L (22.0-26.0) H Arterial Blood Oxygen Saturation 97.5 % (92.0-98.0) Arterial Blood Base Excess 2.7 Librado Test Positive Height (Feet): 5 Height (Inches): 8.00 Weight (Pounds): 220 Ramandeep Francois NP September 25, 2017 11:28
--- NOTE | 2017-09-25 12:20 | Infectious Diseases Prog Note ---
Assessment/Plan Assessment/Plan A: Sepsis/septic shock off pressors Bacteremia with Staph capitis/ contamination Pneumonia with MDR Acinetobacter & Proteus UTI with Proteus treated Respiratory failure ATN DM Anemia Elevated transaminase P: continue Zosyn, Minocycline & Colistin inhaler Subjective ROS Limited/Unobtainable: Yes Allergies: Coded Allergies: No Known Allergies (Verified , 01/02/09) Objective Vital Signs Last 24 Hour Vital Signs Date Time Temp Pulse Resp B/P (MAP) Pulse Ox O2 Delivery O2 Flow Rate FiO2 09/25/17 10:38 61 47 30 09/25/17 10:20 61 31 100 Mechanical Ventilator 30 09/25/17 10:05 40 09/25/17 10:04 62 44 99 Mechanical Ventilator 30 09/25/17 10:03 99 09/25/17 10:00 61 21 145/86 99 Mechanical Ventilator 40 09/25/17 09:58 147/69 09/25/17 09:56 99.0 09/25/17 09:00 61 21 145/86 99 Mechanical Ventilator 40 09/25/17 09:00 61 21 147/69 99 Mechanical Ventilator 40 09/25/17 08:44 61 20 35 09/25/17 08:00 61 22 146/69 99 Mechanical Ventilator 40 09/25/17 07:08 61 17 40 09/25/17 07:00 97.7 62 22 148/60 99 Mechanical Ventilator 40 97.7 09/25/17 06:00 61 22 150/67 99 Mechanical Ventilator 40 09/25/17 05:32 149/72 09/25/17 05:26 62 22 40 09/25/17 05:00 61 21 149/72 100 Mechanical Ventilator 40 09/25/17 04:00 99.0 60 25 146/85 100 Mechanical Ventilator 40 99.0 09/25/17 04:00 60 09/25/17 04:00 40 09/25/17 03:24 58 28 40 09/25/17 03:00 59 19 152/77 99 Mechanical Ventilator 40 09/25/17 02:00 59 20 139/67 100 Mechanical Ventilator 40 09/25/17 01:00 58 22 134/67 100 Mechanical Ventilator 40 09/25/17 00:55 59 26 40 09/25/17 00:00 58 09/25/17 00:00 40 09/25/17 00:00 98.0 59 19 120/70 99 Mechanical Ventilator 40 98.0 09/24/17 23:50 120/70 09/24/17 23:24 62 16 40 09/24/17 23:00 64 20 136/74 100 Mechanical Ventilator 40 09/24/17 22:00 63 16 100 Mechanical Ventilator 40 09/24/17 22:00 63 20 142/88 100 Mechanical Ventilator 40 09/24/17 21:42 64 18 100 Mechanical Ventilator 40 09/24/17 21:42 40 09/24/17 21:32 62 20 Mechanical Ventilator 40 09/24/17 21:29 64 18 40 09/24/17 21:00 62 20 140/82 100 Mechanical Ventilator 40 09/24/17 20:00 40 09/24/17 20:00 65 09/24/17 20:00 98.5 65 18 130/95 100 Mechanical Ventilator 40 98.5 09/24/17 19:45 130/95 09/24/17 19:15 62 20 40 09/24/17 19:00 62 19 132/59 100 Mechanical Ventilator 40 09/24/17 18:57 139/66 09/24/17 18:00 63 17 128/63 100 Mechanical Ventilator 40 09/24/17 17:00 62 19 119/54 100 Mechanical Ventilator 40 09/24/17 16:55 61 26 40 09/24/17 16:00 98.7 60 16 117/63 100 Mechanical Ventilator 40 98.7 09/24/17 16:00 40 09/24/17 16:00 62 09/24/17 15:16 61 18 40 09/24/17 15:00 60 19 107/54 100 Mechanical Ventilator 40 09/24/17 14:00 62 18 110/55 100 Mechanical Ventilator 40 09/24/17 13:04 65 16 100 Mechanical Ventilator 09/24/17 13:00 62 19 102/54 100 Mechanical Ventilator 40 09/24/17 12:56 59 16 40 09/24/17 12:50 59 16 100 Mechanical Ventilator 40 Height (Feet): 5 Height (Inches): 8.00 Weight (Pounds): 220 HEENT: other - orally intubated Respiratory/Chest: lungs clear, other - on ventilator Cardiovascular: normal rate Abdomen: soft, non tender, other - GT feeding Extremities: no edema Neurologic/Psychiatric: other - confused on restraint, Microbiology Date/Time Source Procedure Growth Status 09/23/17 20:30 Stool Clostridium difficile Toxin Assay - Final Complete Laboratory Tests Test 09/25/17 04:00 09/25/17 08:05 White Blood Count 13.0 K/UL (4.8-10.8) H Red Blood Count 3.56 M/UL (4.70-6.10) L Hemoglobin 9.3 G/DL (14.2-18.0) L Hematocrit 30.0 % (42.0-52.0) L Mean Corpuscular Volume 84 FL (80-99) Mean Corpuscular Hemoglobin 26.2 PG (27.0-31.0) L Mean Corpuscular Hemoglobin Concent 31.1 G/DL (32.0-36.0) L Red Cell Distribution Width 16.4 % (11.6-14.8) H Platelet Count 192 K/UL (150-450) Mean Platelet Volume 6.2 FL (6.5-10.1) L Neutrophils (%) (Auto) 69.4 % (45.0-75.0) Lymphocytes (%) (Auto) 16.2 % (20.0-45.0) L Monocytes (%) (Auto) 4.7 % (1.0-10.0) Eosinophils (%) (Auto) 9.5 % (0.0-3.0) H Basophils (%) (Auto) 0.3 % (0.0-2.0) Sodium Level 141 MMOL/L (136-145) Potassium Level 3.6 MMOL/L (3.5-5.1) Chloride Level 106 MMOL/L (98-107) Carbon Dioxide Level 27 MMOL/L (21-32) Anion Gap 8 mmol/L (5-15) Blood Urea Nitrogen 81 mg/dL (7-18) H Creatinine 2.7 MG/DL (0.55-1.30) H Estimat Glomerular Filtration Rate mL/min (>60) Glucose Level 112 MG/DL (74-106) H Uric Acid 7.3 MG/DL (2.6-7.2) H Calcium Level 8.5 MG/DL (8.5-10.1) Phosphorus Level 5.1 MG/DL (2.5-4.9) H Magnesium Level 2.8 MG/DL (1.8-2.4) H Total Bilirubin 0.4 MG/DL (0.2-1.0) Aspartate Amino Transf (AST/SGOT) 77 U/L (15-37) H Alanine Aminotransferase (ALT/SGPT) 89 U/L (12-78) H Alkaline Phosphatase 119 U/L (46-116) H Pro-B-Type Natriuretic Peptide 6793 pg/mL (0-125) H Total Protein 7.1 G/DL (6.4-8.2) Albumin 1.4 G/DL (3.4-5.0) L Globulin 5.7 g/dL Albumin/Globulin Ratio 0.2 (1.0-2.7) L Arterial Blood pH 7.413 (7.350-7.450) Arterial Blood Partial Pressure CO2 44.3 mmHg (35.0-45.0) Arterial Blood Partial Pressure O2 102.9 mmHg (75.0-100.0) H Arterial Blood HCO3 27.6 mmol/L (22.0-26.0) H Arterial Blood Oxygen Saturation 97.5 % (92.0-98.0) Arterial Blood Base Excess 2.7 Librado Test Positive Current Medications Medications (Trade) Dose Ordered Sig/Keira Route PRN Reason Start Time Stop Time Status Last Admin Dose Admin Acetaminophen (Tylenol) 650 mg Q6H PRN NG Mild Pain/Temp > 100.5 09/22/17 20:00 10/22/17 19:59 Albuterol/ Ipratropium (Albuterol/ Ipratropium) 3 ml Q4H PRN HHN Shortness of Breath 09/25/17 10:00 09/30/17 09:59 Albuterol/ Ipratropium (Albuterol/ Ipratropium) 3 ml Q6HRT HHN 09/25/17 13:00 09/30/17 12:59 Colistimethate Sodium (Colistin *inhalation use only*) 75 mg Q12HR@10,22 INH 09/23/17 22:00 09/30/17 21:59 09/25/17 10:03 Dextrose (Dextrose 50%) 25 ml STAT PRN IV Hypoglycemia 09/19/17 14:15 10/19/17 14:14 Dextrose (Dextrose 50%) 50 ml STAT PRN IV Hypoglycemia 09/19/17 14:15 10/19/17 14:14 Famotidine (Pepcid I.v.) 20 mg Q12HR IVP 09/25/17 21:00 10/25/17 20:59 Heparin Sodium (Porcine) (Heparin 5000 units/ml) 5,000 units EVERY 12 HOURS SUBQ 09/19/17 21:00 10/19/17 20:59 09/25/17 09:59 Insulin Aspart (NovoLOG) EVERY 6 HOURS SUBQ 09/22/17 00:00 10/19/17 16:29 09/25/17 06:48 Isosorbide Dinitrate (Isordil) 10 mg Q6HR NG 09/22/17 18:00 10/22/17 17:59 09/25/17 05:32 Loperamide HCl (Imodium) 2 mg Q6H PRN NG Diarrhea 09/25/17 11:30 10/25/17 11:29 Lorazepam (Ativan 2mg/ml 1ml) 1 mg Q4H PRN IV For Anxiety 09/24/17 10:30 10/01/17 10:29 Minocycline HCl (Minocin) 100 mg Q12HR ORAL 09/23/17 21:00 09/30/17 20:59 09/25/17 10:00 Nitroglycerin (Ntg) 1 patch Q24H TDERMAL 09/20/17 10:30 10/20/17 10:29 09/25/17 09:58 Norepinephrine Bitartrate 8 mg/ Dextrose 250 ml @ 0 mls/hr Q24H IV 09/19/17 19:45 10/19/17 19:44 09/19/17 21:01 Piperacillin Sod/ Tazobactam Sod 2.25 gm/Dextrose 55 ml @ 110 mls/hr Q8HR IVPB 09/19/17 22:00 09/28/17 23:00 09/25/17 05:32 ANDRES SAVAGE September 25, 2017 12:20
[2017-09-25] MEDS: Albuterol/Ipratropium 3ml neb HHN SCH ×2 (13:16→19:00)
--- NOTE | 2017-09-25 14:41 | Nephrology Progress Note ---
Assessment/Plan Problem List: (1) ATN (acute tubular necrosis) (2) Septic shock (3) Respiratory failure (4) Diabetes mellitus Assessment Acute Renal failure- Cr lower ? Underlying CKD Component of dehydration, Pre renal state and Hypernatremia Acute respiratory failure, Aspiartion Pneumonia, UTI Septic Shock H/O Multiple Strokes Anemia Elevated Troponin Hyperglycemia PEG Plan transfused add isordil Pulm support Hydrate- avoid nephrotoxics Monitor renal parameters Hemodynamic support IV iron Nitro and asa GT feeding Per orders Subjective ROS Limited/Unobtainable: Yes Objective Objective Last 24 Hour Vital Signs Date Time Temp Pulse Resp B/P (MAP) Pulse Ox O2 Delivery O2 Flow Rate FiO2 09/25/17 13:28 61 28 100 Mechanical Ventilator 30 09/25/17 13:21 138/76 09/25/17 13:16 60 24 99 Mechanical Ventilator 30 09/25/17 13:15 60 24 30 09/25/17 10:38 61 47 30 09/25/17 10:26 99.0 09/25/17 10:20 61 31 100 Mechanical Ventilator 30 09/25/17 10:05 40 09/25/17 10:04 62 44 99 Mechanical Ventilator 30 09/25/17 10:03 99 09/25/17 10:00 61 21 145/86 99 Mechanical Ventilator 40 09/25/17 09:58 147/69 09/25/17 09:56 99.0 09/25/17 09:00 61 21 145/86 99 Mechanical Ventilator 40 09/25/17 09:00 61 21 147/69 99 Mechanical Ventilator 40 09/25/17 08:44 61 20 35 09/25/17 08:00 61 22 146/69 99 Mechanical Ventilator 40 09/25/17 07:08 61 17 40 09/25/17 07:00 97.7 62 22 148/60 99 Mechanical Ventilator 40 97.7 09/25/17 06:00 61 22 150/67 99 Mechanical Ventilator 40 09/25/17 05:32 149/72 09/25/17 05:26 62 22 40 09/25/17 05:00 61 21 149/72 100 Mechanical Ventilator 40 09/25/17 04:00 99.0 60 25 146/85 100 Mechanical Ventilator 40 99.0 09/25/17 04:00 60 09/25/17 04:00 40 09/25/17 03:24 58 28 40 09/25/17 03:00 59 19 152/77 99 Mechanical Ventilator 40 09/25/17 02:00 59 20 139/67 100 Mechanical Ventilator 40 09/25/17 01:00 58 22 134/67 100 Mechanical Ventilator 40 09/25/17 00:55 59 26 40 09/25/17 00:00 58 09/25/17 00:00 40 09/25/17 00:00 98.0 59 19 120/70 99 Mechanical Ventilator 40 98.0 09/24/17 23:50 120/70 09/24/17 23:24 62 16 40 09/24/17 23:00 64 20 136/74 100 Mechanical Ventilator 40 09/24/17 22:00 63 16 100 Mechanical Ventilator 40 09/24/17 22:00 63 20 142/88 100 Mechanical Ventilator 40 09/24/17 21:42 64 18 100 Mechanical Ventilator 40 09/24/17 21:42 40 09/24/17 21:32 62 20 Mechanical Ventilator 40 09/24/17 21:29 64 18 40 09/24/17 21:00 62 20 140/82 100 Mechanical Ventilator 40 09/24/17 20:00 40 09/24/17 20:00 65 09/24/17 20:00 98.5 65 18 130/95 100 Mechanical Ventilator 40 98.5 09/24/17 19:45 130/95 09/24/17 19:15 62 20 40 09/24/17 19:00 62 19 132/59 100 Mechanical Ventilator 40 09/24/17 18:57 139/66 09/24/17 18:00 63 17 128/63 100 Mechanical Ventilator 40 09/24/17 17:00 62 19 119/54 100 Mechanical Ventilator 40 09/24/17 16:55 61 26 40 09/24/17 16:00 98.7 60 16 117/63 100 Mechanical Ventilator 40 98.7 09/24/17 16:00 40 09/24/17 16:00 62 09/24/17 15:16 61 18 40 09/24/17 15:00 60 19 107/54 100 Mechanical Ventilator 40 Intake and Output 09/24/17 09/25/17 19:00 07:00 Intake Total 385 ml 500 ml Output Total 1230 ml 1200 ml Balance -845 ml -700 ml IV Total 55 ml 110 ml Tube Feeding 330 ml 360 ml Other 30 ml Output Urine Total 1230 ml 1100 ml Stool Total 100 ml Laboratory Tests 09/25/17 04:00: White Blood Count 13.0H, Red Blood Count 3.56L, Hemoglobin 9.3L, Hematocrit 30.0L, Mean Corpuscular Volume 84, Mean Corpuscular Hemoglobin 26.2L, Mean Corpuscular Hemoglobin Concent 31.1L, Red Cell Distribution Width 16.4H, Platelet Count 192, Mean Platelet Volume 6.2L, Neutrophils (%) (Auto) 69.4, Lymphocytes (%) (Auto) 16.2L, Monocytes (%) (Auto) 4.7, Eosinophils (%) (Auto) 9.5H, Basophils (%) (Auto) 0.3, Sodium Level 141, Potassium Level 3.6, Chloride Level 106, Carbon Dioxide Level 27, Anion Gap 8, Blood Urea Nitrogen 81H, Creatinine 2.7H, Estimat Glomerular Filtration Rate , Glucose Level 112H, Uric Acid 7.3H, Calcium Level 8.5, Phosphorus Level 5.1H, Magnesium Level 2.8H, Total Bilirubin 0.4, Aspartate Amino Transf (AST/SGOT) 77H, Alanine Aminotransferase (ALT/SGPT) 89H, Alkaline Phosphatase 119H, Pro-B-Type Natriuretic Peptide 6793H, Total Protein 7.1, Albumin 1.4L, Globulin 5.7, Albumin/Globulin Ratio 0.2L 09/25/17 08:05: Arterial Blood pH 7.413, Arterial Blood Partial Pressure CO2 44.3, Arterial Blood Partial Pressure O2 102.9H, Arterial Blood HCO3 27.6H, Arterial Blood Oxygen Saturation 97.5, Arterial Blood Base Excess 2.7, Librado Test Positive Height (Feet): 5 Height (Inches): 8.00 Weight (Pounds): 220 General Appearance: no apparent distress, lethargic Cardiovascular: normal rate Respiratory/Chest: decreased breath sounds Abdomen: soft ROSE MARY REID September 25, 2017 14:41
[2017-09-25] MEDS: LORazepam Inj 2mg/ml 1ml IV PRN (18:55)
--- NOTE | 2017-09-25 19:05 | Internal Med Progress Note ---
Subjective Date of Service: September 25, 2017 Physician Name Cesario Chacon Attending Physician Cesario Chacon Past Medical History no change Past Surgical History no change Current Medications Medications (Trade) Dose Ordered Sig/Keira Route PRN Reason Start Time Stop Time Status Last Admin Dose Admin Acetaminophen (Tylenol) 650 mg Q6H PRN NG Mild Pain/Temp > 100.5 09/22/17 20:00 10/22/17 19:59 Albuterol/ Ipratropium (Albuterol/ Ipratropium) 3 ml Q4H PRN HHN Shortness of Breath 09/25/17 10:00 09/30/17 09:59 Albuterol/ Ipratropium (Albuterol/ Ipratropium) 3 ml Q6HRT HHN 09/25/17 13:00 09/30/17 12:59 09/25/17 13:16 Colistimethate Sodium (Colistin *inhalation use only*) 75 mg Q12HR@10,22 INH 09/23/17 22:00 09/30/17 21:59 09/25/17 10:03 Dextrose (Dextrose 50%) 25 ml STAT PRN IV Hypoglycemia 09/19/17 14:15 10/19/17 14:14 Dextrose (Dextrose 50%) 50 ml STAT PRN IV Hypoglycemia 09/19/17 14:15 10/19/17 14:14 Famotidine (Pepcid I.v.) 20 mg Q12HR IVP 09/25/17 21:00 10/25/17 20:59 Heparin Sodium (Porcine) (Heparin 5000 units/ml) 5,000 units EVERY 12 HOURS SUBQ 09/19/17 21:00 10/19/17 20:59 09/25/17 09:59 Insulin Aspart (NovoLOG) EVERY 6 HOURS SUBQ 09/22/17 00:00 10/19/17 16:29 09/25/17 18:51 Isosorbide Dinitrate (Isordil) 10 mg Q6HR NG 09/22/17 18:00 10/22/17 17:59 09/25/17 18:54 Loperamide HCl (Imodium) 2 mg Q6H PRN NG Diarrhea 09/25/17 11:30 10/25/17 11:29 Lorazepam (Ativan 2mg/ml 1ml) 1 mg Q4H PRN IV For Anxiety 09/24/17 10:30 10/01/17 10:29 09/25/17 18:55 Minocycline HCl (Minocin) 100 mg Q12HR ORAL 09/23/17 21:00 09/30/17 20:59 09/25/17 10:00 Nitroglycerin (Ntg) 1 patch Q24H TDERMAL 09/20/17 10:30 10/20/17 10:29 09/25/17 09:58 Norepinephrine Bitartrate 8 mg/ Dextrose 250 ml @ 0 mls/hr Q24H IV 09/19/17 19:45 10/19/17 19:44 09/19/17 21:01 Piperacillin Sod/ Tazobactam Sod 2.25 gm/Dextrose 55 ml @ 110 mls/hr Q8HR IVPB 09/19/17 22:00 09/28/17 23:00 09/25/17 13:20 Allergies: Coded Allergies: No Known Allergies (Verified , 01/02/09) ROS Limited/Unobtainable: Yes - intubated Subjective remains intubated, off pressor Objective Last Vital Signs Date Time Temp Pulse Resp B/P (MAP) Pulse Ox O2 Delivery O2 Flow Rate FiO2 09/25/17 18:54 156/82 09/25/17 17:27 70 21 30 09/25/17 13:28 100 Mechanical Ventilator 09/25/17 10:26 99.0 09/23/17 22:11 50.0 General Appearance: no apparent distress Cardiovascular: normal rate, systolic murmur Respiratory/Chest: rhonchi - bilaterally Abdomen: normal bowel sounds, soft, no mass Extremities: non-tender Edema: mild edema Neurologic: aphasia, other - right hemiparesis Skin: warm/dry, no diaphoresis Laboratory Tests Test 09/25/17 04:00 09/25/17 08:05 White Blood Count 13.0 K/UL (4.8-10.8) H Red Blood Count 3.56 M/UL (4.70-6.10) L Hemoglobin 9.3 G/DL (14.2-18.0) L Hematocrit 30.0 % (42.0-52.0) L Mean Corpuscular Volume 84 FL (80-99) Mean Corpuscular Hemoglobin 26.2 PG (27.0-31.0) L Mean Corpuscular Hemoglobin Concent 31.1 G/DL (32.0-36.0) L Red Cell Distribution Width 16.4 % (11.6-14.8) H Platelet Count 192 K/UL (150-450) Mean Platelet Volume 6.2 FL (6.5-10.1) L Neutrophils (%) (Auto) 69.4 % (45.0-75.0) Lymphocytes (%) (Auto) 16.2 % (20.0-45.0) L Monocytes (%) (Auto) 4.7 % (1.0-10.0) Eosinophils (%) (Auto) 9.5 % (0.0-3.0) H Basophils (%) (Auto) 0.3 % (0.0-2.0) Sodium Level 141 MMOL/L (136-145) Potassium Level 3.6 MMOL/L (3.5-5.1) Chloride Level 106 MMOL/L (98-107) Carbon Dioxide Level 27 MMOL/L (21-32) Anion Gap 8 mmol/L (5-15) Blood Urea Nitrogen 81 mg/dL (7-18) H Creatinine 2.7 MG/DL (0.55-1.30) H Estimat Glomerular Filtration Rate mL/min (>60) Glucose Level 112 MG/DL (74-106) H Uric Acid 7.3 MG/DL (2.6-7.2) H Calcium Level 8.5 MG/DL (8.5-10.1) Phosphorus Level 5.1 MG/DL (2.5-4.9) H Magnesium Level 2.8 MG/DL (1.8-2.4) H Total Bilirubin 0.4 MG/DL (0.2-1.0) Aspartate Amino Transf (AST/SGOT) 77 U/L (15-37) H Alanine Aminotransferase (ALT/SGPT) 89 U/L (12-78) H Alkaline Phosphatase 119 U/L (46-116) H Pro-B-Type Natriuretic Peptide 6793 pg/mL (0-125) H Total Protein 7.1 G/DL (6.4-8.2) Albumin 1.4 G/DL (3.4-5.0) L Globulin 5.7 g/dL Albumin/Globulin Ratio 0.2 (1.0-2.7) L Arterial Blood pH 7.413 (7.350-7.450) Arterial Blood Partial Pressure CO2 44.3 mmHg (35.0-45.0) Arterial Blood Partial Pressure O2 102.9 mmHg (75.0-100.0) H Arterial Blood HCO3 27.6 mmol/L (22.0-26.0) H Arterial Blood Oxygen Saturation 97.5 % (92.0-98.0) Arterial Blood Base Excess 2.7 Librado Test Positive Microbiology Date/Time Source Procedure Growth Status 09/23/17 20:30 Stool Clostridium difficile Toxin Assay - Final Complete Intake and Output 09/24/17 09/25/17 19:00 07:00 Intake Total 385 ml 500 ml Output Total 1230 ml 1200 ml Balance -845 ml -700 ml IV Total 55 ml 110 ml Tube Feeding 330 ml 360 ml Other 30 ml Output Urine Total 1230 ml 1100 ml Stool Total 100 ml Assessment/Plan Status: stable, progressing Assessment/Plan MPRESSION: 1. Acute respiratory failure, intubated. 2. MDR Pneumonia likely aspiration pneumonia versus healthcare associated pneumonia. 3. Severe dehydration. 4. Hypernatremia. 5. Hyperkalemia. 6. Acute on chronic renal failure stage 3. 7. Uremia due to prerenal. 8. Transaminitis. 9. Elevated lipase. 10. Severe protein-calorie malnutrition. 11. History of chronic CVA with right hemiparesis. 13. History of organic brain disease. 14. History of advanced dementia. 15. Status post gastrostomy tube placement. 16. History of neurogenic bladder/chronic indwelling Matson catheter. 17. Hyperlipidemia. 18. Coronary artery disease. 19. poor venous access PLAN: intensive care unit. daily vent weaning attempt---> failed today ABG intravenous fluid. per renal may consider dc IV lasix as needed ordered PICC line lyte replete Pulmonary nebulizer. off pressor for now PRBC tx as needed DVT and GI prophylaxis. IV abx IV Fe Continue with the Matson catheter. Aspiration precaution. electrolytes replete as indicated. enteral feeding as tolerated over 40 min spent in critical care in ICU d/w loan consultant-Dr Olegario Chacon MD [phone] CESARIO CHACON September 25, 2017 19:05
[2017-09-26] VITALS (24 sets, daily range): BP systolic 125–185; BP diastolic 61–108
[2017-09-26] MEDS: NovoLOG Insulin Flexpen SUBQ SCH ×5 (00:11→23:33)
[2017-09-26] MEDS: Albuterol/Ipratropium 3ml neb HHN SCH ×4 (01:07→19:20)
[2017-09-26] MEDS: Piperacillin/Tazobactam 2.25 GM in D5W 55 ML IVPB SCH ×3 (05:33→21:42)
--- NOTE | 2017-09-26 08:28 | Pulmonolgy Critical Care Note ---
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 (4) Sepsis (5) UTI (urinary tract infection) Assessment & Plan: ESLB proteus (6) Renal failure (7) Feeding by G-tube (8) Acute encephalopathy (9) HCAP (healthcare-associated pneumonia) (10) s/p multiple lacunar strokes, old (11) recent L MCA ischemic stroke (12) Bacterial infection due to Staphylococcus Assessment & Plan: S capitis /, repeat CX's NG Respiratory: monitor respiratory rate, CXR, ABG, weaning trial, other - RTC and PRN HHN's Cardiac: continue to monitor HR/BP Renal: check electrolytes, other - lasix 20 IV x 1 Infectious Disease: continue antibiotics - zosyn & colisitin per ID Gastrointestinal: hold feedings - for possible extubation Endocrine: monitor blood sugar, continue sliding scale insulin Hematologic: monitor H/H Neurologic: keep patient comfortable Prophylaxis: Heparin, other - zantac Disposition: keep in ICU Time Spent (Minutes): 60 Notes Reviewed: brass buffer, cardio, renal, ID, other - Family still deciding RE : code status and GOC Critical Care - Objective Last 24 Hour Vital Signs Date Time Temp Pulse Resp B/P (MAP) Pulse Ox O2 Delivery O2 Flow Rate FiO2 09/26/17 07:27 60 16 100 Mechanical Ventilator 30 09/26/17 07:21 60 16 30 09/26/17 07:21 60 16 99 Mechanical Ventilator 30 09/26/17 07:00 61 18 144/69 99 Mechanical Ventilator 30 09/26/17 06:00 60 20 142/67 99 Mechanical Ventilator 30 09/26/17 05:33 148/72 09/26/17 05:00 61 18 148/72 99 Mechanical Ventilator 30 09/26/17 04:58 63 19 30 09/26/17 04:00 98.3 66 20 142/69 98 Mechanical Ventilator 30 98.3 09/26/17 04:00 40 09/26/17 04:00 60 09/26/17 03:00 98.1 60 21 138/68 99 Mechanical Ventilator 30 98.1 09/26/17 02:58 62 24 30 09/26/17 02:00 67 19 125/67 99 Mechanical Ventilator 30 09/26/17 01:17 62 18 100 Mechanical Ventilator 30 09/26/17 01:07 62 16 100 Mechanical Ventilator 30 09/26/17 01:07 64 26 30 09/26/17 01:00 65 20 132/61 99 Mechanical Ventilator 30 09/26/17 00:10 139/66 09/26/17 00:00 69 09/26/17 00:00 62 21 139/66 99 Mechanical Ventilator 30 09/26/17 00:00 40 09/25/17 23:49 68 26 30 09/25/17 23:00 98.3 64 22 135/64 98 Mechanical Ventilator 30 98.3 09/25/17 22:00 63 21 148/76 99 Mechanical Ventilator 30 09/25/17 21:47 62 16 100 Mechanical Ventilator 30 09/25/17 21:36 30 09/25/17 21:36 60 14 30 09/25/17 21:36 63 14 100 Mechanical Ventilator 30 09/25/17 21:00 63 19 142/64 99 Mechanical Ventilator 30 09/25/17 20:00 40 09/25/17 20:00 69 09/25/17 20:00 98.2 63 21 129/83 99 Mechanical Ventilator 30 98.2 09/25/17 19:45 61 26 100 Mechanical Ventilator 30 09/25/17 19:35 63 16 100 Mechanical Ventilator 30 09/25/17 19:35 64 16 30 09/25/17 19:00 98.7 64 21 134/63 99 Mechanical Ventilator 30 98.7 09/25/17 18:54 156/82 09/25/17 18:00 66 21 164/85 99 Mechanical Ventilator 30 09/25/17 17:27 70 21 30 09/25/17 17:00 67 21 168/83 99 Mechanical Ventilator 30 09/25/17 16:00 69 09/25/17 16:00 68 21 157/86 99 Mechanical Ventilator 30 09/25/17 16:00 40 09/25/17 15:16 68 26 30 09/25/17 15:00 65 21 158/84 99 Mechanical Ventilator 30 09/25/17 14:00 60 21 136/72 99 Mechanical Ventilator 30 09/25/17 13:28 61 28 100 Mechanical Ventilator 30 09/25/17 13:21 138/76 09/25/17 13:16 60 24 99 Mechanical Ventilator 30 09/25/17 13:15 60 24 30 5/10/18 13:00 73 21 156/77 99 Mechanical Ventilator 40 09/25/17 12:00 64 21 144/77 99 Mechanical Ventilator 40 09/25/17 12:00 60 09/25/17 12:00 40 09/25/17 11:00 98.5 62 21 150/74 99 Mechanical Ventilator 40 98.5 09/25/17 10:38 61 47 30 09/25/17 10:26 99.0 09/25/17 10:20 61 31 100 Mechanical Ventilator 30 09/25/17 10:05 40 09/25/17 10:04 62 44 99 Mechanical Ventilator 30 09/25/17 10:03 99 09/25/17 10:00 61 21 145/86 99 Mechanical Ventilator 40 09/25/17 09:58 147/69 09/25/17 09:56 99.0 09/25/17 09:00 61 21 145/86 99 Mechanical Ventilator 40 09/25/17 09:00 61 21 147/69 99 Mechanical Ventilator 40 09/25/17 08:44 61 20 35 Status: obtunded Condition: improving HEENT: atraumatic, normocephalic Lungs: clear Heart: HR/BP stable Abdomen: soft, non-tender, active bowel sounds, feeding tube Extremities: no C/C/E Decubiti: location - sacraum,penis, stage - 3 Micro: Microbiology Date/Time Source Procedure Growth Status 09/23/17 20:30 Stool Clostridium difficile Toxin Assay - Final Complete Accucheck: 135 Blood Sugars: BS controlled Critical Care - Subjective ROS Limited/Unobtainable: Yes ICU Day: 8 Intubation Day: 8 Interval Events: Failed SBT CXR with PVC No sig secretions CHAPIS PS 12 this am Condition: improving IV Access: peripheral EKG Rhythm: Sinus Rhythm FI02: 30 Vent Support Breath Rate: 16 Vent Support Mode: AC Vent Tidal Volume: 450 Sputum Amount: Scant PEEP: 5.0 PIP: 30 Tube Feeding Amount: 30 I&O: Intake and Output 09/25/17 09/26/17 19:00 07:00 Intake Total 525 ml 640 ml Output Total 980 ml 800 ml Balance -455 ml -160 ml IV Total 55 ml 220 ml Tube Feeding 360 ml 360 ml Other 110 ml 60 ml Output Urine Total 980 ml 700 ml Stool Total 100 ml Subjective: Unable to obtain CXR: PVC ET-Tube: 8.0 ET Position: 24 CHRISTINA KIDD M.D. September 26, 2017 08:28
[2017-09-26] MEDS: Minocycline HCl 50mg cap ORAL SCH ×2 (08:47→20:23)
[2017-09-26] MEDS ORDERED: Lidocaine 1% Plain 30 ml INJ SCH (09:00)
[2017-09-26] MEDS ORDERED: Heparin 2000 units/Ns 1000ml INJ SCH (09:00)
[2017-09-26] MEDS: Heparin 5000 units/ml inj SUBQ SCH ×2 (09:00→20:24)
--- NOTE | 2017-09-26 10:47 | Infectious Diseases Prog Note ---
Assessment/Plan Assessment/Plan A: Sepsis/septic shock off pressors Bacteremia with Staph capitis/ contamination Pneumonia with MDR Acinetobacter & Proteus UTI with Proteus treated Respiratory failure ATN DM Anemia Elevated transaminase P: continue Zosyn, Minocycline & Colistin inhaler Subjective ROS Limited/Unobtainable: Yes Neurologic: Reports: confusion, other - on restraint Allergies: Coded Allergies: No Known Allergies (Verified , 01/02/09) Objective Vital Signs Last 24 Hour Vital Signs Date Time Temp Pulse Resp B/P (MAP) Pulse Ox O2 Delivery O2 Flow Rate FiO2 09/26/17 09:20 61 24 30 09/26/17 07:27 60 16 100 Mechanical Ventilator 30 09/26/17 07:21 60 16 30 09/26/17 07:21 60 16 99 Mechanical Ventilator 30 09/26/17 07:00 61 18 144/69 99 Mechanical Ventilator 30 09/26/17 06:00 60 20 142/67 99 Mechanical Ventilator 30 09/26/17 05:33 148/72 09/26/17 05:00 61 18 148/72 99 Mechanical Ventilator 30 09/26/17 04:58 63 19 30 09/26/17 04:00 98.3 66 20 142/69 98 Mechanical Ventilator 30 98.3 09/26/17 04:00 40 09/26/17 04:00 60 09/26/17 03:00 98.1 60 21 138/68 99 Mechanical Ventilator 30 98.1 09/26/17 02:58 62 24 30 09/26/17 02:00 67 19 125/67 99 Mechanical Ventilator 30 09/26/17 01:17 62 18 100 Mechanical Ventilator 30 09/26/17 01:07 62 16 100 Mechanical Ventilator 30 09/26/17 01:07 64 26 30 09/26/17 01:00 65 20 132/61 99 Mechanical Ventilator 30 09/26/17 00:10 139/66 09/26/17 00:00 69 09/26/17 00:00 62 21 139/66 99 Mechanical Ventilator 30 09/26/17 00:00 40 09/25/17 23:49 68 26 30 09/25/17 23:00 98.3 64 22 135/64 98 Mechanical Ventilator 30 98.3 09/25/17 22:00 63 21 148/76 99 Mechanical Ventilator 30 09/25/17 21:47 62 16 100 Mechanical Ventilator 30 09/25/17 21:36 30 09/25/17 21:36 60 14 30 09/25/17 21:36 63 14 100 Mechanical Ventilator 30 09/25/17 21:00 63 19 142/64 99 Mechanical Ventilator 30 09/25/17 20:00 40 09/25/17 20:00 69 09/25/17 20:00 98.2 63 21 129/83 99 Mechanical Ventilator 30 98.2 09/25/17 19:45 61 26 100 Mechanical Ventilator 30 09/25/17 19:35 63 16 100 Mechanical Ventilator 30 09/25/17 19:35 64 16 30 09/25/17 19:00 98.7 64 21 134/63 99 Mechanical Ventilator 30 98.7 09/25/17 18:54 156/82 09/25/17 18:00 66 21 164/85 99 Mechanical Ventilator 30 09/25/17 17:27 70 21 30 09/25/17 17:00 67 21 168/83 99 Mechanical Ventilator 30 09/25/17 16:00 69 09/25/17 16:00 68 21 157/86 99 Mechanical Ventilator 30 09/25/17 16:00 40 09/25/17 15:16 68 26 30 09/25/17 15:00 65 21 158/84 99 Mechanical Ventilator 30 09/25/17 14:00 60 21 136/72 99 Mechanical Ventilator 30 09/25/17 13:28 61 28 100 Mechanical Ventilator 30 09/25/17 13:21 138/76 09/25/17 13:16 60 24 99 Mechanical Ventilator 30 09/25/17 13:15 60 24 30 09/25/17 13:00 73 21 156/77 99 Mechanical Ventilator 40 09/25/17 12:00 64 21 144/77 99 Mechanical Ventilator 40 09/25/17 12:00 60 09/25/17 12:00 40 09/25/17 11:00 98.5 62 21 150/74 99 Mechanical Ventilator 40 98.5 Height (Feet): 5 Height (Inches): 8.00 Weight (Pounds): 227 HEENT: other - orallly intbated Respiratory/Chest: decreased breath sounds, other - on ventilator Cardiovascular: normal rate Abdomen: soft, non tender, other - GT feeding Extremities: no edema Neurologic/Psychiatric: other - confused, weakness in R side Microbiology Date/Time Source Procedure Growth Status 09/23/17 20:30 Stool Clostridium difficile Toxin Assay - Final Complete Current Medications Medications (Trade) Dose Ordered Sig/Keira Route PRN Reason Start Time Stop Time Status Last Admin Dose Admin Acetaminophen (Tylenol) 650 mg Q6H PRN NG Mild Pain/Temp > 100.5 09/22/17 20:00 10/22/17 19:59 Albuterol/ Ipratropium (Albuterol/ Ipratropium) 3 ml Q4H PRN HHN Shortness of Breath 09/25/17 10:00 09/30/17 09:59 Albuterol/ Ipratropium (Albuterol/ Ipratropium) 3 ml Q6HRT HHN 09/25/17 13:00 09/30/17 12:59 09/26/17 07:22 Chlorhexidine Gluconate (Michelle-Hex 2%) 1 applic DAILY@2000 TOPIC 09/26/17 20:00 10/26/17 19:59 Colistimethate Sodium (Colistin *inhalation use only*) 75 mg Q12HR@22 INH 09/23/17 22:00 09/30/17 21:59 09/25/17 21:35 Dextrose (Dextrose 50%) 25 ml STAT PRN IV Hypoglycemia 09/19/17 14:15 10/19/17 14:14 Dextrose (Dextrose 50%) 50 ml STAT PRN IV Hypoglycemia 09/19/17 14:15 10/19/17 14:14 Famotidine (Pepcid I.v.) 20 mg Q12HR IVP 09/25/17 21:00 10/25/17 20:59 09/26/17 08:46 Heparin Sodium (Porcine) (Heparin 5000 units/ml) 5,000 units EVERY 12 HOURS SUBQ 09/19/17 21:00 10/19/17 20:59 09/25/17 09:59 Heparin Sodium/ Sodium Chloride (Heparin 2000 units/Ns 1000ml premix) 2,000 unit ONCE INJ 09/26/17 09:00 10/26/17 12:00 Insulin Aspart (NovoLOG) EVERY 6 HOURS SUBQ 09/22/17 00:00 10/19/17 16:29 09/26/17 05:35 Isosorbide Dinitrate (Isordil) 10 mg Q6HR NG 09/22/17 18:00 10/22/17 17:59 09/26/17 05:33 Lidocaine HCl (Xylocaine 1% 30ml) 30 ml ONCE INJ 09/26/17 09:00 09/26/17 12:00 Loperamide HCl (Imodium) 2 mg Q6H PRN NG Diarrhea 09/25/17 11:30 10/25/17 11:29 Lorazepam (Ativan 2mg/ml 1ml) 1 mg Q4H PRN IV For Anxiety 09/24/17 10:30 10/01/17 10:29 09/25/17 18:55 Minocycline HCl (Minocin) 100 mg Q12HR ORAL 09/23/17 21:00 09/30/17 20:59 09/26/17 08:47 Nitroglycerin (Ntg) 1 patch Q24H TDERMAL 09/20/17 10:30 10/20/17 10:29 09/25/17 09:58 Piperacillin Sod/ Tazobactam Sod 2.25 gm/Dextrose 55 ml @ 110 mls/hr Q8HR IVPB 09/19/17 22:00 09/28/17 23:00 09/26/17 05:33 ANDRES SAVAGE September 26, 2017 10:47
[2017-09-26] MEDS: Nitroglycerin Patch 0.4mg TDERMAL SCH (11:41)
--- NOTE | 2017-09-26 11:47 | GI Progress Note ---
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 Taveras. Assessment/Plan Assessment - Anemia - abnormal LFT - Resp failure - Renal failure - Sepsis - CVA / (R) taylor - dysphagia / GT - diarrhea Recommendations - H2B BID - dc reglan given renal insufficiency - Imodium prn - TF - check abd u/s - check OB, fu hep panel - transufse PRN - abx - s/p EGD/colon 07/2017 at [facility] (HH,polyps, diverticulosis) - fu labs The patient was seen and examined at bedside and all new and available data was reviewed in the patients chart. I agree with the above findings, impression and plan. (Patient seen earlier today. Signature stamp does not reflect patient encounter time.). - Villa Taveras MD Subjective Subjective limited Objective Last 24 Hour Vital Signs Date Time Temp Pulse Resp B/P (MAP) Pulse Ox O2 Delivery O2 Flow Rate FiO2 09/26/17 11:41 158/92 09/26/17 11:41 158/92 09/26/17 11:00 60 22 158/68 99 Mechanical Ventilator 30 09/26/17 11:00 60 09/26/17 10:00 60 22 156/61 99 Mechanical Ventilator 30 09/26/17 09:20 61 24 30 09/26/17 09:00 61 38 157/74 100 Mechanical Ventilator 30 09/26/17 08:00 98.4 60 21 144/67 99 Mechanical Ventilator 30 98.4 09/26/17 08:00 40 09/26/17 07:27 60 16 100 Mechanical Ventilator 30 09/26/17 07:21 60 16 30 09/26/17 07:21 60 16 99 Mechanical Ventilator 30 09/26/17 07:00 61 18 144/69 99 Mechanical Ventilator 30 09/26/17 06:00 60 20 142/67 99 Mechanical Ventilator 30 09/26/17 05:33 148/72 09/26/17 05:00 61 18 148/72 99 Mechanical Ventilator 30 09/26/17 04:58 63 19 30 09/26/17 04:00 98.3 66 20 142/69 98 Mechanical Ventilator 30 98.3 09/26/17 04:00 40 09/26/17 04:00 60 09/26/17 03:00 98.1 60 21 138/68 99 Mechanical Ventilator 30 98.1 09/26/17 02:58 62 24 30 09/26/17 02:00 67 19 125/67 99 Mechanical Ventilator 30 09/26/17 01:17 62 18 100 Mechanical Ventilator 30 09/26/17 01:07 62 16 100 Mechanical Ventilator 30 09/26/17 01:07 64 26 30 09/26/17 01:00 65 20 132/61 99 Mechanical Ventilator 30 09/26/17 00:10 139/66 09/26/17 00:00 69 09/26/17 00:00 62 21 139/66 99 Mechanical Ventilator 30 09/26/17 00:00 40 09/25/17 23:49 68 26 30 09/25/17 23:00 98.3 64 22 135/64 98 Mechanical Ventilator 30 98.3 09/25/17 22:00 63 21 148/76 99 Mechanical Ventilator 30 09/25/17 21:47 62 16 100 Mechanical Ventilator 30 09/25/17 21:36 30 09/25/17 21:36 60 14 30 09/25/17 21:36 63 14 100 Mechanical Ventilator 30 09/25/17 21:00 63 19 142/64 99 Mechanical Ventilator 30 09/25/17 20:00 40 09/25/17 20:00 69 09/25/17 20:00 98.2 63 21 129/83 99 Mechanical Ventilator 30 98.2 09/25/17 19:45 61 26 100 Mechanical Ventilator 30 09/25/17 19:35 63 16 100 Mechanical Ventilator 30 09/25/17 19:35 64 16 30 09/25/17 19:00 98.7 64 21 134/63 99 Mechanical Ventilator 30 98.7 09/25/17 18:54 156/82 09/25/17 18:00 66 21 164/85 99 Mechanical Ventilator 30 09/25/17 17:27 70 21 30 09/25/17 17:00 67 21 168/83 99 Mechanical Ventilator 30 09/25/17 16:00 69 09/25/17 16:00 68 21 157/86 99 Mechanical Ventilator 30 09/25/17 16:00 40 09/25/17 15:16 68 26 30 09/25/17 15:00 65 21 158/84 99 Mechanical Ventilator 30 09/25/17 14:00 60 21 136/72 99 Mechanical Ventilator 30 09/25/17 13:28 61 28 100 Mechanical Ventilator 30 09/25/17 13:21 138/76 09/25/17 13:16 60 24 99 Mechanical Ventilator 30 09/25/17 13:15 60 24 30 09/25/17 13:00 73 21 156/77 99 Mechanical Ventilator 40 09/25/17 12:00 64 21 144/77 99 Mechanical Ventilator 40 09/25/17 12:00 60 09/25/17 12:00 40 Intake and Output 09/25/17 09/26/17 19:00 07:00 Intake Total 525 ml 640 ml Output Total 980 ml 800 ml Balance -455 ml -160 ml IV Total 55 ml 220 ml Tube Feeding 360 ml 360 ml Other 110 ml 60 ml Output Urine Total 980 ml 700 ml Stool Total 100 ml Height (Feet): 5 Height (Inches): 8.00 Weight (Pounds): 227 General Appearance: no apparent distress Cardiovascular: normal rate Respiratory/Chest: other - mechanical vent Abdominal Exam: GT site - c/d/i Ramandeep Francois NP September 26, 2017 11:47
[2017-09-26] MEDS: Colistin for inhalation INH SCH ×2 (12:25→22:00)
[2017-09-26 13:38] LABS: BASOPHILS % (AUTO) 0.8 % (0.0-2.0); EOSINOPHILS % (AUTO) 9.3 % (0.0-3.0); HEMATOCRIT 28.6 % (42.0-52.0); HEMOGLOBIN 9.1 G/DL (14.2-18.0); LYMPHOCYTES % (AUTO) 19.6 % (20.0-45.0); MEAN CORPUSCULAR VOLUME 84 FL (80-99); MONOCYTES % (AUTO) 6.9 % (1.0-10.0); NEUTROPHILS % (AUTO) 63.4 % (45.0-75.0); PLATELET COUNT 197 K/UL (150-450); RED BLOOD COUNT 3.41 M/UL (4.70-6.10); RED CELL DISTRIBUTION WIDTH 16.3 % (11.6-14.8); WHITE BLOOD COUNT 10.9 K/UL (4.8-10.8)
--- NOTE | 2017-09-26 13:41 | Nephrology Progress Note ---
Assessment/Plan Problem List: (1) ATN (acute tubular necrosis) (2) Septic shock (3) Respiratory failure (4) Diabetes mellitus Assessment Acute Renal failure- Cr lower ? Underlying CKD Component of dehydration, Pre renal state and Hypernatremia Acute respiratory failure, Aspiartion Pneumonia, UTI Septic Shock H/O Multiple Strokes Anemia Elevated Troponin Hyperglycemia PEG Plan today's labs pending transfused add isordil Pulm support Hydrate- avoid nephrotoxics Monitor renal parameters Hemodynamic support IV iron Nitro and asa GT feeding Per orders Subjective ROS Limited/Unobtainable: Yes Objective Objective Last 24 Hour Vital Signs Date Time Temp Pulse Resp B/P (MAP) Pulse Ox O2 Delivery O2 Flow Rate FiO2 09/26/17 12:36 60 16 100 Mechanical Ventilator 30 09/26/17 12:36 60 16 30 09/26/17 12:36 60 16 100 Mechanical Ventilator 30 09/26/17 12:25 59 16 30 09/26/17 12:25 62 16 99 Mechanical Ventilator 30 09/26/17 12:25 30 09/26/17 12:25 61 16 99 Mechanical Ventilator 30 09/26/17 11:41 158/92 09/26/17 11:41 158/92 09/26/17 11:00 60 22 158/68 99 Mechanical Ventilator 30 09/26/17 11:00 60 09/26/17 10:00 60 22 156/61 99 Mechanical Ventilator 30 09/26/17 09:20 61 24 30 09/26/17 09:00 61 38 157/74 100 Mechanical Ventilator 30 09/26/17 08:00 98.4 60 21 144/67 99 Mechanical Ventilator 30 98.4 09/26/17 08:00 40 09/26/17 07:27 60 16 100 Mechanical Ventilator 30 09/26/17 07:21 60 16 30 09/26/17 07:21 60 16 99 Mechanical Ventilator 30 09/26/17 07:00 61 18 144/69 99 Mechanical Ventilator 30 09/26/17 06:00 60 20 142/67 99 Mechanical Ventilator 30 09/26/17 05:33 148/72 09/26/17 05:00 61 18 148/72 99 Mechanical Ventilator 30 09/26/17 04:58 63 19 30 09/26/17 04:00 98.3 66 20 142/69 98 Mechanical Ventilator 30 98.3 09/26/17 04:00 40 09/26/17 04:00 60 09/26/17 03:00 98.1 60 21 138/68 99 Mechanical Ventilator 30 98.1 09/26/17 02:58 62 24 30 09/26/17 02:00 67 19 125/67 99 Mechanical Ventilator 30 09/26/17 01:17 62 18 100 Mechanical Ventilator 30 09/26/17 01:07 62 16 100 Mechanical Ventilator 30 09/26/17 01:07 64 26 30 09/26/17 01:00 65 20 132/61 99 Mechanical Ventilator 30 09/26/17 00:10 139/66 09/26/17 00:00 69 09/26/17 00:00 62 21 139/66 99 Mechanical Ventilator 30 09/26/17 00:00 40 09/25/17 23:49 68 26 30 09/25/17 23:00 98.3 64 22 135/64 98 Mechanical Ventilator 30 98.3 09/25/17 22:00 63 21 148/76 99 Mechanical Ventilator 30 09/25/17 21:47 62 16 100 Mechanical Ventilator 30 09/25/17 21:36 30 09/25/17 21:36 60 14 30 09/25/17 21:36 63 14 100 Mechanical Ventilator 30 09/25/17 21:00 63 19 142/64 99 Mechanical Ventilator 30 09/25/17 20:00 40 09/25/17 20:00 69 09/25/17 20:00 98.2 63 21 129/83 99 Mechanical Ventilator 30 98.2 09/25/17 19:45 61 26 100 Mechanical Ventilator 30 09/25/17 19:35 63 16 100 Mechanical Ventilator 30 09/25/17 19:35 64 16 30 09/25/17 19:00 98.7 64 21 134/63 99 Mechanical Ventilator 30 98.7 09/25/17 18:54 156/82 09/25/17 18:00 66 21 164/85 99 Mechanical Ventilator 30 09/25/17 17:27 70 21 30 09/25/17 17:00 67 21 168/83 99 Mechanical Ventilator 30 09/25/17 16:00 69 09/25/17 16:00 68 21 157/86 99 Mechanical Ventilator 30 09/25/17 16:00 40 09/25/17 15:16 68 26 30 09/25/17 15:00 65 21 158/84 99 Mechanical Ventilator 30 09/25/17 14:00 60 21 136/72 99 Mechanical Ventilator 30 Intake and Output 09/25/17 09/26/17 19:00 07:00 Intake Total 525 ml 640 ml Output Total 980 ml 800 ml Balance -455 ml -160 ml IV Total 55 ml 220 ml Tube Feeding 360 ml 360 ml Other 110 ml 60 ml Output Urine Total 980 ml 700 ml Stool Total 100 ml Laboratory Tests 09/26/17 13:15: White Blood Count [Pending], Red Blood Count [Pending], Hemoglobin [Pending], Hematocrit [Pending], Mean Corpuscular Volume [Pending], Mean Corpuscular Hemoglobin [Pending], Mean Corpuscular Hemoglobin Concent [Pending], Red Cell Distribution Width [Pending], Platelet Count [Pending], Mean Platelet Volume [ Pending], Neutrophils (%) (Auto) [Pending], Lymphocytes (%) (Auto) [Pending], Monocytes (%) (Auto) [Pending], Eosinophils (%) (Auto) [Pending], Basophils (%) (Auto) [Pending], Sodium Level [Pending], Potassium Level [Pending], Chloride Level [Pending], Carbon Dioxide Level [Pending], Blood Urea Nitrogen [Pending], Creatinine [Pending], Estimat Glomerular Filtration Rate [Pending], Glucose Level [Pending], Calcium Level [Pending], Total Bilirubin [Pending], Aspartate Amino Transf (AST/SGOT) [Pending], Alanine Aminotransferase (ALT/SGPT) [Pending] , Alkaline Phosphatase [Pending], Total Protein [Pending], Albumin [Pending], Globulin [Pending] Height (Feet): 5 Height (Inches): 8.00 Weight (Pounds): 227 General Appearance: no apparent distress Cardiovascular: normal rate Respiratory/Chest: decreased breath sounds Abdomen: soft ROSE MARY REID September 26, 2017 13:41
[2017-09-26 13:53] LABS: ALANINE AMINOTRANSFERASE 74 U/L (12-78); ALBUMIN 1.4 G/DL (3.4-5.0); ALBUMIN/GLOBULIN RATIO 0.2 (1.0-2.7); ALKALINE PHOSPHATASE 100 U/L (46-116); ANION GAP 11 mmol/L (5-15); ASPARTATE AMINO TRANSFERASE 64 U/L (15-37); BILIRUBIN,TOTAL 0.3 MG/DL (0.2-1.0); BLOOD UREA NITROGEN 67 mg/dL (7-18); CALCIUM 8.6 MG/DL (8.5-10.1); CARBON DIOXIDE 26 MMOL/L (21-32); CHLORIDE 108 MMOL/L (98-107); CREATININE 2.5 MG/DL (0.55-1.30); POTASSIUM 3.2 MMOL/L (3.5-5.1); SODIUM 145 MMOL/L (136-145)
--- NOTE | 2017-09-26 14:38 | Diagnostic Imaging Report ---
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 The left upper extremity was prepped with alcohol. All elements of maximal sterile barrier technique were followed including usage of a cap, mask, sterile gown, sterile gloves, hand hygiene and a large sterile sheet. Sonographic evaluation of the upper extremity was performed demonstrating a patent and compressible basilic vein. Access was obtained under real-time ultrasound guidance (with utilization of sterile gel and sterile probe cover) and digital image was saved and archived. An .018 wire was introduced. Needle exchanged for a 5 Pashto peel-away sheath. Measurements were obtained. A 5 Pashto dual-lumen Power PICC line catheter was cut to 40 cm and introduced over the wire. Peel-away sheath and wire were removed.Catheter was secured to the skin using 2-0 Prolene suture. Both ports aspirate and flush easily. Post procedure chest x-ray demonstrates good position of the PICC line catheter within the SVC. Impression: Successful placement of an upper extremity PICC line catheter
--- NOTE | 2017-09-26 15:03 | Diagnostic Imaging Report ---
Indication: Dyspnea Comparison: 09/19/2017 A single view chest radiograph was obtained. Findings: Right upper lobe infiltrate again demonstrated with the slightly better aeration and less concentrated consolidation. Left basal infiltrate also noted. Tubes and lines are stable. IMPRESSION: Patchy bilateral pneumonia
[2017-09-26] MEDS ORDERED: Potassium Chloride 40 MEQ in Sodium Chloride 500ML 550 ML IVPB SCH (16:00)
--- NOTE | 2017-09-26 17:10 | Internal Med Progress Note ---
Subjective Date of Service: September 26, 2017 Physician Name Cesario Chacon Attending Physician Cesario Chacon Past Medical History no change Past Surgical History no change Current Medications Medications (Trade) Dose Ordered Sig/Keira Route PRN Reason Start Time Stop Time Status Last Admin Dose Admin Acetaminophen (Tylenol) 650 mg Q6H PRN NG Mild Pain/Temp > 100.5 09/22/17 20:00 10/22/17 19:59 Albuterol/ Ipratropium (Albuterol/ Ipratropium) 3 ml Q4H PRN HHN Shortness of Breath 09/25/17 10:00 09/30/17 09:59 Albuterol/ Ipratropium (Albuterol/ Ipratropium) 3 ml Q6HRT HHN 09/25/17 13:00 09/30/17 12:59 09/26/17 12:25 Chlorhexidine Gluconate (Michelle-Hex 2%) 1 applic DAILY@2000 TOPIC 09/26/17 20:00 10/26/17 19:59 Colistimethate Sodium (Colistin *inhalation use only*) 75 mg Q12HR@10,22 INH 09/23/17 22:00 09/30/17 21:59 09/26/17 12:25 Dextrose (Dextrose 50%) 25 ml STAT PRN IV Hypoglycemia 09/19/17 14:15 10/19/17 14:14 Dextrose (Dextrose 50%) 50 ml STAT PRN IV Hypoglycemia 09/19/17 14:15 10/19/17 14:14 Famotidine (Pepcid I.v.) 20 mg Q12HR IVP 09/25/17 21:00 10/25/17 20:59 09/26/17 08:46 Heparin Sodium (Porcine) (Heparin 5000 units/ml) 5,000 units EVERY 12 HOURS SUBQ 09/19/17 21:00 10/19/17 20:59 09/25/17 09:59 Insulin Aspart (NovoLOG) EVERY 6 HOURS SUBQ 09/22/17 00:00 10/19/17 16:29 09/26/17 05:35 Isosorbide Dinitrate (Isordil) 10 mg Q6HR NG 09/22/17 18:00 10/22/17 17:59 09/26/17 11:41 Loperamide HCl (Imodium) 2 mg Q6H PRN NG Diarrhea 09/25/17 11:30 10/25/17 11:29 Lorazepam (Ativan 2mg/ml 1ml) 1 mg Q4H PRN IV For Anxiety 09/24/17 10:30 10/01/17 10:29 09/25/17 18:55 Minocycline HCl (Minocin) 100 mg Q12HR ORAL 09/23/17 21:00 09/30/17 20:59 09/26/17 08:47 Nitroglycerin (Ntg) 1 patch Q24H TDERMAL 09/20/17 10:30 10/20/17 10:29 09/26/17 11:41 Piperacillin Sod/ Tazobactam Sod 2.25 gm/Dextrose 55 ml @ 110 mls/hr Q8HR IVPB 09/19/17 22:00 09/28/17 23:00 09/26/17 14:50 Potassium Chloride 40 meq/ Sodium Chloride 570 ml @ 142.5 mls/ hr ONCE IVPB 09/26/17 16:00 09/26/17 23:59 09/26/17 15:46 Allergies: Coded Allergies: No Known Allergies (Verified , 01/02/09) ROS Limited/Unobtainable: Yes - intubated Subjective remains intubated, off pressor Objective Last Vital Signs Date Time Temp Pulse Resp B/P (MAP) Pulse Ox O2 Delivery O2 Flow Rate FiO2 09/26/17 16:00 98.6 58 19 158/74 99 Mechanical Ventilator 30 98.6 09/23/17 22:11 50.0 General Appearance: no apparent distress Cardiovascular: normal rate, regular rhythm, systolic murmur Respiratory/Chest: lungs clear Abdomen: non tender, soft, no mass Genitourinary/Rectal: other - elder Neurologic: aphasia, other Laboratory Tests Test 09/26/17 13:15 White Blood Count 10.9 K/UL (4.8-10.8) H Red Blood Count 3.41 M/UL (4.70-6.10) L Hemoglobin 9.1 G/DL (14.2-18.0) L Hematocrit 28.6 % (42.0-52.0) L Mean Corpuscular Volume 84 FL (80-99) Mean Corpuscular Hemoglobin 26.7 PG (27.0-31.0) L Mean Corpuscular Hemoglobin Concent 31.8 G/DL (32.0-36.0) L Red Cell Distribution Width 16.3 % (11.6-14.8) H Platelet Count 197 K/UL (150-450) Mean Platelet Volume 6.8 FL (6.5-10.1) Neutrophils (%) (Auto) 63.4 % (45.0-75.0) Lymphocytes (%) (Auto) 19.6 % (20.0-45.0) L Monocytes (%) (Auto) 6.9 % (1.0-10.0) Eosinophils (%) (Auto) 9.3 % (0.0-3.0) H Basophils (%) (Auto) 0.8 % (0.0-2.0) Sodium Level 145 MMOL/L (136-145) Potassium Level 3.2 MMOL/L (3.5-5.1) L Chloride Level 108 MMOL/L (98-107) H Carbon Dioxide Level 26 MMOL/L (21-32) Anion Gap 11 mmol/L (5-15) Blood Urea Nitrogen 67 mg/dL (7-18) H Creatinine 2.5 MG/DL (0.55-1.30) H Estimat Glomerular Filtration Rate mL/min (>60) Glucose Level 107 MG/DL (74-106) H Calcium Level 8.6 MG/DL (8.5-10.1) Total Bilirubin 0.3 MG/DL (0.2-1.0) Aspartate Amino Transf (AST/SGOT) 64 U/L (15-37) H Alanine Aminotransferase (ALT/SGPT) 74 U/L (12-78) Alkaline Phosphatase 100 U/L (46-116) Total Protein 7.1 G/DL (6.4-8.2) Albumin 1.4 G/DL (3.4-5.0) L Globulin 5.7 g/dL Albumin/Globulin Ratio 0.2 (1.0-2.7) L Microbiology Date/Time Source Procedure Growth Status 09/23/17 20:30 Stool Clostridium difficile Toxin Assay - Final Complete Intake and Output 09/25/17 09/26/17 19:00 07:00 Intake Total 525 ml 640 ml Output Total 980 ml 800 ml Balance -455 ml -160 ml IV Total 55 ml 220 ml Tube Feeding 360 ml 360 ml Other 110 ml 60 ml Output Urine Total 980 ml 700 ml Stool Total 100 ml Assessment/Plan Assessment/Plan MPRESSION: 1. Acute respiratory failure, intubated. 2. MDR Pneumonia likely aspiration pneumonia versus healthcare associated pneumonia. 3. Severe dehydration. 4. Hypernatremia. 5. Hyperkalemia. 6. Acute on chronic renal failure stage 3. 7. Uremia due to prerenal. 8. Transaminitis. 9. Elevated lipase. 10. Severe protein-calorie malnutrition. 11. History of chronic CVA with right hemiparesis. 13. History of organic brain disease. 14. History of advanced dementia. 15. Status post gastrostomy tube placement. 16. History of neurogenic bladder/chronic indwelling Elder catheter. 17. Hyperlipidemia. 18. Coronary artery disease. 19. poor venous access PLAN: intensive care unit. daily vent weaning attempt---> failed SBT ABG K replete intravenous fluid. per renal IV lasix as needed ordered PICC line lyte replete Pulmonary nebulizer. off pressor for now PRBC tx as needed DVT and GI prophylaxis. IV abx IV Fe Continue with the Elder catheter. Aspiration precaution. electrolytes replete as indicated. enteral feeding as tolerated FULL CODE d/w marriage and family social worker. over 35 min spent in critical care in ICU d/w mining consultant-Dr Olegario Chacon MD [phone] CESARIO CHACON September 26, 2017 17:10
--- NOTE | 2017-09-26 17:23 | Diagnostic Imaging Report ---
EXAM: US Abdomen Complete CLINICAL HISTORY: Abdominal pain. TECHNIQUE: Real-time ultrasound of the abdomen (complete) with image documentation. COMPARISON: 09/19/2017 ultrasound abdomen. FINDINGS: Liver: Liver 15.2 cm. Gallbladder: No cholelithiasis. Mildly prominent 5 mm gallbladder wall. No pericholecystic fluid. Common bile duct: CBD 6 mm. No definite choledocholithiasis. Pancreas: Unremarkable as visualized. Kidneys: Possible mild left hydronephrosis. Right kidney 9.9 cm. Left kidney 12.9 cm. Left renal cysts up to approximately 2.7 cm. Spleen: Spleen 9.7 cm. Aorta: Unremarkable as visualized. Inferior vena cava: Unremarkable as visualized. Bladder: Decompressed bladder with Matson catheter. IMPRESSION: 1. No cholelithiasis. Mildly prominent 5 mm gallbladder wall. No pericholecystic fluid. 2. Possible mild left hydronephrosis.
[2017-09-26] MEDS: LORazepam Inj 2mg/ml 1ml IV PRN (18:35)
[2017-09-26] MEDS ORDERED: Dyna-Hex 2% Top Sol 2oz TOPIC SCH ×2 (20:00)
[2017-09-27] VITALS (24 sets, daily range): BP systolic 133–198; BP diastolic 59–102
[2017-09-27] MEDS: Albuterol/Ipratropium 3ml neb HHN SCH ×4 (00:56→19:27)
[2017-09-27] MEDS: NovoLOG Insulin Flexpen SUBQ SCH ×4 (05:45→23:51)
[2017-09-27] MEDS: Piperacillin/Tazobactam 2.25 GM in D5W 55 ML IVPB SCH ×3 (05:46→20:49)
[2017-09-27 05:57] LABS: BASOPHILS % (AUTO) 0.2 % (0.0-2.0); EOSINOPHILS % (AUTO) 8.8 % (0.0-3.0); HEMATOCRIT 27.8 % (42.0-52.0); HEMOGLOBIN 8.8 G/DL (14.2-18.0); LYMPHOCYTES % (AUTO) 19.1 % (20.0-45.0); MEAN CORPUSCULAR VOLUME 84 FL (80-99); MONOCYTES % (AUTO) 6.5 % (1.0-10.0); NEUTROPHILS % (AUTO) 65.4 % (45.0-75.0); PLATELET COUNT 192 K/UL (150-450); RED BLOOD COUNT 3.32 M/UL (4.70-6.10); RED CELL DISTRIBUTION WIDTH 16.7 % (11.6-14.8); WHITE BLOOD COUNT 10.3 K/UL (4.8-10.8)
[2017-09-27 06:10] LABS: ALANINE AMINOTRANSFERASE 76 U/L (12-78); ALBUMIN 1.5 G/DL (3.4-5.0); ALBUMIN/GLOBULIN RATIO 0.3 (1.0-2.7); ALKALINE PHOSPHATASE 99 U/L (46-116); ANION GAP 6 mmol/L (5-15); ASPARTATE AMINO TRANSFERASE 60 U/L (15-37); BILIRUBIN,TOTAL 0.3 MG/DL (0.2-1.0); BLOOD UREA NITROGEN 53 mg/dL (7-18); CALCIUM 8.8 MG/DL (8.5-10.1); CARBON DIOXIDE 30 MMOL/L (21-32); CHLORIDE 111 MMOL/L (98-107); CREATININE 2.3 MG/DL (0.55-1.30); POTASSIUM 3.4 MMOL/L (3.5-5.1); SODIUM 147 MMOL/L (136-145)
[2017-09-27] MEDS: Heparin 5000 units/ml inj SUBQ SCH ×2 (08:04→20:51)
[2017-09-27] MEDS: Acetaminophen 650mg/20.3ml NG PRN ×2 (08:26→17:13)
[2017-09-27] MEDS ORDERED: Potassium Chloride 20 MEQ in NS 275 ML IVPB ONE (10:00)
[2017-09-27] MEDS ORDERED: Colistin for inhalation INH SCH ×2 (10:30→22:00)
[2017-09-27] MEDS ORDERED: Nitroglycerin Patch 0.4mg TDERMAL SCH (10:30)
[2017-09-27] MEDS ORDERED: Minocycline HCl 50mg cap ORAL SCH (10:30)
--- NOTE | 2017-09-27 11:13 | Pulmonolgy Critical Care Note ---
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 (4) Sepsis (5) UTI (urinary tract infection) Assessment & Plan: ESLB proteus (6) Renal failure (7) Feeding by G-tube (8) Acute encephalopathy (9) HCAP (healthcare-associated pneumonia) (10) s/p multiple lacunar strokes, old (11) recent L MCA ischemic stroke (12) Bacterial infection due to Staphylococcus Assessment & Plan: S capitis 5/4, repeat CX's NG Respiratory: monitor respiratory rate, weaning trial - will attempt as able, will start low dose Fent gtt to help, other - RTC and PRN HHN's Cardiac: continue to monitor HR/BP Renal: check electrolytes Infectious Disease: check cultures, continue antibiotics Gastrointestinal: continue feedings/current rate Endocrine: monitor blood sugar, continue sliding scale insulin Hematologic: monitor H/H Neurologic: keep patient comfortable, other - start low dose Fent gtt Prophylaxis: Heparin, other - zantac Time Spent (Minutes): 60 Notes Reviewed: nurse practitioner manager, cardio, renal, ID, GI Discussed with: nurses, consultants, case resolution specialistretail district manager - Objective Last 24 Hour Vital Signs Date Time Temp Pulse Resp B/P (MAP) Pulse Ox O2 Delivery O2 Flow Rate FiO2 09/27/17 10:24 133/67 09/27/17 10:00 59 41 133/67 99 Mechanical Ventilator 30 09/27/17 09:57 99 09/27/17 09:09 60 21 30 09/27/17 09:00 61 19 151/77 100 Mechanical Ventilator 30 09/27/17 08:56 97.8 09/27/17 08:26 97.8 09/27/17 08:00 40 09/27/17 08:00 97.8 60 29 158/76 100 Mechanical Ventilator 30 97.8 09/27/17 08:00 62 09/27/17 07:13 63 16 100 Mechanical Ventilator 30 09/27/17 07:05 63 16 100 Mechanical Ventilator 30 09/27/17 07:05 63 16 30 09/27/17 07:00 61 19 159/59 100 Mechanical Ventilator 30 09/27/17 06:00 167/91 09/27/17 06:00 61 19 177/84 100 Mechanical Ventilator 30 09/27/17 05:28 61 22 30 09/27/17 05:00 63 25 167/91 100 Mechanical Ventilator 30 09/27/17 04:00 98.3 61 29 196/90 100 Mechanical Ventilator 30 98.3 09/27/17 04:00 61 09/27/17 04:00 40 09/27/17 03:00 63 25 176/81 100 Mechanical Ventilator 30 09/27/17 02:48 60 18 30 09/27/17 02:00 63 22 163/83 99 Mechanical Ventilator 30 09/27/17 01:06 61 16 100 Mechanical Ventilator 30 09/27/17 01:00 62 25 173/86 99 Mechanical Ventilator 30 09/27/17 00:57 61 16 30 09/27/17 00:56 61 16 100 Mechanical Ventilator 30 09/27/17 00:00 98.1 60 19 180/102 99 Mechanical Ventilator 30 98.1 09/27/17 00:00 59 09/27/17 00:00 40 09/26/17 23:34 177/84 09/26/17 23:28 62 18 30 09/26/17 23:00 61 21 170/80 99 Mechanical Ventilator 30 09/26/17 22:15 Mechanical Ventilator 30 09/26/17 22:15 Mechanical Ventilator 30 09/26/17 22:00 61 21 177/84 99 Mechanical Ventilator 30 09/26/17 21:00 62 27 170/108 100 Mechanical Ventilator 30 09/26/17 20:57 63 20 30 09/26/17 20:00 97.9 63 19 185/95 100 Mechanical Ventilator 30 97.9 09/26/17 20:00 63 09/26/17 20:00 40 09/26/17 19:30 63 16 100 Mechanical Ventilator 30 09/26/17 19:20 62 16 100 Mechanical Ventilator 30 09/26/17 19:18 61 18 30 09/26/17 19:00 62 24 158/82 99 Mechanical Ventilator 30 09/26/17 18:35 169/78 09/26/17 18:00 61 21 159/74 99 Mechanical Ventilator 30 09/26/17 17:00 59 20 161/72 99 Mechanical Ventilator 30 09/26/17 16:33 61 16 30 09/26/17 16:00 70 09/26/17 16:00 98.6 58 19 158/74 99 Mechanical Ventilator 30 98.6 09/26/17 16:00 40 09/26/17 15:00 59 20 161/72 99 Mechanical Ventilator 30 09/26/17 14:51 58 16 30 09/26/17 14:00 40 09/26/17 14:00 59 19 161/67 99 Mechanical Ventilator 30 09/26/17 13:00 58 19 153/81 99 Mechanical Ventilator 30 09/26/17 12:36 60 16 100 Mechanical Ventilator 30 09/26/17 12:36 60 16 30 09/26/17 12:36 60 16 100 Mechanical Ventilator 30 09/26/17 12:25 59 16 30 09/26/17 12:25 62 16 99 Mechanical Ventilator 30 09/26/17 12:25 30 09/26/17 12:25 61 16 99 Mechanical Ventilator 30 09/26/17 12:00 58 09/26/17 12:00 98.2 58 19 149/75 99 Mechanical Ventilator 30 98.2 09/26/17 11:41 158/92 09/26/17 11:41 158/92 Status: somnolent Condition: critical HEENT: atraumatic Neck: full ROM Lungs: rhonchi - scattered Heart: HR/BP stable Abdomen: soft, non-tender, active bowel sounds, feeding tube Extremities: no C/C/E Accucheck: 109 Blood Sugars: BS controlled Critical Care - Subjective ROS Limited/Unobtainable: Yes ICU Day: 9 Intubation Day: 9 Interval Events: S/P PICC -1.5 thick yellow secretions Condition: improving IV Access: PICC EKG Rhythm: Sinus Rhythm FI02: 30 Vent Support Breath Rate: 16 Vent Support Mode: CPAP Vent Tidal Volume: 450 Sputum Amount: Small PEEP: 5.0 PIP: 25 Tube Feeding Amount: 30 I&O: Intake and Output 09/26/17 09/27/17 19:00 07:00 Intake Total 680.0 ml 612.5 ml Output Total 1635 ml 1210 ml Balance -955.0 ml -597.5 ml IV Total 530.0 ml 252.5 ml Tube Feeding 150 ml 360 ml Output Urine Total 1635 ml 1210 ml Subjective: Unable to obtain ET-Tube: 8.0 ET Position: 24 Labs: Laboratory Tests Test 09/26/17 13:15 09/27/17 04:30 White Blood Count 10.9 K/UL (4.8-10.8) H 10.3 K/UL (4.8-10.8) Red Blood Count 3.41 M/UL (4.70-6.10) L 3.32 M/UL (4.70-6.10) L Hemoglobin 9.1 G/DL (14.2-18.0) L 8.8 G/DL (14.2-18.0) L Hematocrit 28.6 % (42.0-52.0) L 27.8 % (42.0-52.0) L Mean Corpuscular Volume 84 FL (80-99) 84 FL (80-99) Mean Corpuscular Hemoglobin 26.7 PG (27.0-31.0) L 26.7 PG (27.0-31.0) L Mean Corpuscular Hemoglobin Concent 31.8 G/DL (32.0-36.0) L 31.8 G/DL (32.0-36.0) L Red Cell Distribution Width 16.3 % (11.6-14.8) H 16.7 % (11.6-14.8) H Platelet Count 197 K/UL (150-450) 192 K/UL (150-450) Mean Platelet Volume 6.8 FL (6.5-10.1) 6.8 FL (6.5-10.1) Neutrophils (%) (Auto) 63.4 % (45.0-75.0) 65.4 % (45.0-75.0) Lymphocytes (%) (Auto) 19.6 % (20.0-45.0) L 19.1 % (20.0-45.0) L Monocytes (%) (Auto) 6.9 % (1.0-10.0) 6.5 % (1.0-10.0) Eosinophils (%) (Auto) 9.3 % (0.0-3.0) H 8.8 % (0.0-3.0) H Basophils (%) (Auto) 0.8 % (0.0-2.0) 0.2 % (0.0-2.0) Sodium Level 145 MMOL/L (136-145) 147 MMOL/L (136-145) H Potassium Level 3.2 MMOL/L (3.5-5.1) L 3.4 MMOL/L (3.5-5.1) L Chloride Level 108 MMOL/L (98-107) H 111 MMOL/L (98-107) H Carbon Dioxide Level 26 MMOL/L (21-32) 30 MMOL/L (21-32) Anion Gap 11 mmol/L (5-15) 6 mmol/L (5-15) Blood Urea Nitrogen 67 mg/dL (7-18) H 53 mg/dL (7-18) H Creatinine 2.5 MG/DL (0.55-1.30) H 2.3 MG/DL (0.55-1.30) H Estimat Glomerular Filtration Rate mL/min (>60) mL/min (>60) Glucose Level 107 MG/DL (74-106) H 106 MG/DL (74-106) Calcium Level 8.6 MG/DL (8.5-10.1) 8.8 MG/DL (8.5-10.1) Total Bilirubin 0.3 MG/DL (0.2-1.0) 0.3 MG/DL (0.2-1.0) Aspartate Amino Transf (AST/SGOT) 64 U/L (15-37) H 60 U/L (15-37) H Alanine Aminotransferase (ALT/SGPT) 74 U/L (12-78) 76 U/L (12-78) Alkaline Phosphatase 100 U/L (46-116) 99 U/L (46-116) Total Protein 7.1 G/DL (6.4-8.2) 7.4 G/DL (6.4-8.2) Albumin 1.4 G/DL (3.4-5.0) L 1.5 G/DL (3.4-5.0) L Globulin 5.7 g/dL 5.9 g/dL Albumin/Globulin Ratio 0.2 (1.0-2.7) L 0.3 (1.0-2.7) L CHRISTINA KIDD M.D. September 27, 2017 11:13
--- NOTE | 2017-09-27 11:16 | Nephrology Progress Note ---
Assessment/Plan Problem List: (1) ATN (acute tubular necrosis) (2) Septic shock (3) Respiratory failure (4) Diabetes mellitus Assessment Acute Renal failure- Cr lower ? Underlying CKD Component of dehydration, Pre renal state and Hypernatremia Acute respiratory failure, Aspiartion Pneumonia, UTI Septic Shock H/O Multiple Strokes Anemia Elevated Troponin Hyperglycemia PEG Plan transfused add isordil Pulm support Hydrate- avoid nephrotoxics Monitor renal parameters Hemodynamic support IV iron Nitro and asa GT feeding Per orders Subjective ROS Limited/Unobtainable: Yes Objective Objective Last 24 Hour Vital Signs Date Time Temp Pulse Resp B/P (MAP) Pulse Ox O2 Delivery O2 Flow Rate FiO2 09/27/17 10:24 133/67 09/27/17 10:00 59 41 133/67 99 Mechanical Ventilator 30 09/27/17 09:57 99 09/27/17 09:09 60 21 30 09/27/17 09:00 61 19 151/77 100 Mechanical Ventilator 30 09/27/17 08:56 97.8 09/27/17 08:26 97.8 09/27/17 08:00 40 09/27/17 08:00 97.8 60 29 158/76 100 Mechanical Ventilator 30 97.8 09/27/17 08:00 62 09/27/17 07:13 63 16 100 Mechanical Ventilator 30 09/27/17 07:05 63 16 100 Mechanical Ventilator 30 09/27/17 07:05 63 16 30 09/27/17 07:00 61 19 159/59 100 Mechanical Ventilator 30 09/27/17 06:00 167/91 09/27/17 06:00 61 19 177/84 100 Mechanical Ventilator 30 09/27/17 05:28 61 22 30 09/27/17 05:00 63 25 167/91 100 Mechanical Ventilator 30 09/27/17 04:00 98.3 61 29 196/90 100 Mechanical Ventilator 30 98.3 09/27/17 04:00 61 09/27/17 04:00 40 09/27/17 03:00 63 25 176/81 100 Mechanical Ventilator 30 09/27/17 02:48 60 18 30 09/27/17 02:00 63 22 163/83 99 Mechanical Ventilator 30 09/27/17 01:06 61 16 100 Mechanical Ventilator 30 09/27/17 01:00 62 25 173/86 99 Mechanical Ventilator 30 09/27/17 00:57 61 16 30 5/12/18 00:56 61 16 100 Mechanical Ventilator 30 09/27/17 00:00 98.1 60 19 180/102 99 Mechanical Ventilator 30 98.1 09/27/17 00:00 59 09/27/17 00:00 40 09/26/17 23:34 177/84 09/26/17 23:28 62 18 30 09/26/17 23:00 61 21 170/80 99 Mechanical Ventilator 30 09/26/17 22:15 Mechanical Ventilator 30 09/26/17 22:15 Mechanical Ventilator 30 09/26/17 22:00 61 21 177/84 99 Mechanical Ventilator 30 09/26/17 21:00 62 27 170/108 100 Mechanical Ventilator 30 09/26/17 20:57 63 20 30 09/26/17 20:00 97.9 63 19 185/95 100 Mechanical Ventilator 30 97.9 09/26/17 20:00 63 09/26/17 20:00 40 09/26/17 19:30 63 16 100 Mechanical Ventilator 30 09/26/17 19:20 62 16 100 Mechanical Ventilator 30 09/26/17 19:18 61 18 30 09/26/17 19:00 62 24 158/82 99 Mechanical Ventilator 30 09/26/17 18:35 169/78 09/26/17 18:00 61 21 159/74 99 Mechanical Ventilator 30 09/26/17 17:00 59 20 161/72 99 Mechanical Ventilator 30 09/26/17 16:33 61 16 30 09/26/17 16:00 70 09/26/17 16:00 98.6 58 19 158/74 99 Mechanical Ventilator 30 98.6 09/26/17 16:00 40 09/26/17 15:00 59 20 161/72 99 Mechanical Ventilator 30 09/26/17 14:51 58 16 30 09/26/17 14:00 40 09/26/17 14:00 59 19 161/67 99 Mechanical Ventilator 30 09/26/17 13:00 58 19 153/81 99 Mechanical Ventilator 30 09/26/17 12:36 60 16 100 Mechanical Ventilator 30 09/26/17 12:36 60 16 30 09/26/17 12:36 60 16 100 Mechanical Ventilator 30 09/26/17 12:25 59 16 30 09/26/17 12:25 62 16 99 Mechanical Ventilator 30 09/26/17 12:25 30 09/26/17 12:25 61 16 99 Mechanical Ventilator 30 09/26/17 12:00 58 09/26/17 12:00 98.2 58 19 149/75 99 Mechanical Ventilator 30 98.2 09/26/17 11:41 158/92 09/26/17 11:41 158/92 Intake and Output 09/26/17 09/27/17 19:00 07:00 Intake Total 680.0 ml 612.5 ml Output Total 1635 ml 1210 ml Balance -955.0 ml -597.5 ml IV Total 530.0 ml 252.5 ml Tube Feeding 150 ml 360 ml Output Urine Total 1635 ml 1210 ml Laboratory Tests 09/26/17 13:15: White Blood Count 10.9H, Red Blood Count 3.41L, Hemoglobin 9.1L, Hematocrit 28.6L, Mean Corpuscular Volume 84, Mean Corpuscular Hemoglobin 26.7L, Mean Corpuscular Hemoglobin Concent 31.8L, Red Cell Distribution Width 16.3H, Platelet Count 197, Mean Platelet Volume 6.8, Neutrophils (%) (Auto) 63.4, Lymphocytes (%) (Auto) 19.6L, Monocytes (%) (Auto) 6.9, Eosinophils (%) (Auto) 9.3H, Basophils (%) (Auto) 0.8, Sodium Level 145, Potassium Level 3.2L, Chloride Level 108H, Carbon Dioxide Level 26, Anion Gap 11, Blood Urea Nitrogen 67H, Creatinine 2.5H, Estimat Glomerular Filtration Rate , Glucose Level 107H, Calcium Level 8.6, Total Bilirubin 0.3, Aspartate Amino Transf (AST/SGOT) 64H, Alanine Aminotransferase (ALT/SGPT) 74, Alkaline Phosphatase 100, Total Protein 7.1, Albumin 1.4L, Globulin 5.7, Albumin/Globulin Ratio 0.2L 09/27/17 04:30: White Blood Count 10.3, Red Blood Count 3.32L, Hemoglobin 8.8L, Hematocrit 27.8L , Mean Corpuscular Volume 84, Mean Corpuscular Hemoglobin 26.7L, Mean Corpuscular Hemoglobin Concent 31.8L, Red Cell Distribution Width 16.7H, Platelet Count 192, Mean Platelet Volume 6.8, Neutrophils (%) (Auto) 65.4, Lymphocytes (%) (Auto) 19.1L, Monocytes (%) (Auto) 6.5, Eosinophils (%) (Auto) 8.8H, Basophils (%) (Auto) 0.2, Sodium Level 147H, Potassium Level 3.4L, Chloride Level 111H, Carbon Dioxide Level 30, Anion Gap 6, Blood Urea Nitrogen 53H, Creatinine 2.3H, Estimat Glomerular Filtration Rate , Glucose Level 106, Calcium Level 8.8, Total Bilirubin 0.3, Aspartate Amino Transf (AST/SGOT) 60H, Alanine Aminotransferase (ALT/SGPT) 76, Alkaline Phosphatase 99, Total Protein 7.4, Albumin 1.5L, Globulin 5.9, Albumin/Globulin Ratio 0.3L Height (Feet): 5 Height (Inches): 8.00 Weight (Pounds): 211 Cardiovascular: normal rate Respiratory/Chest: decreased breath sounds Abdomen: soft ROSE MARY REID September 27, 2017 11:16
[2017-09-27] MEDS ORDERED: fentaNYL Citrate 2,500 MCG in NS 200 ML IV SCH ×2 (13:00→15:30)
[2017-09-27] MEDS ORDERED: fentaNYL 100 mcg/2 mL IV SCH ×4 (13:15→14:45)
[2017-09-27] MEDS: LORazepam Inj 2mg/ml 1ml IV PRN (17:13)
[2017-09-27] MEDS: Minocycline HCl 50mg cap ORAL SCH (20:49)
[2017-09-27] MEDS: Dyna-Hex 2% Top Sol 2oz TOPIC SCH (20:49)
[2017-09-27] MEDS ORDERED: Heparin 5000 units/ml inj SUBQ SCH (21:00)
[2017-09-27] MEDS: Colistin for inhalation INH SCH (21:43)
[2017-09-28] VITALS (34 sets, daily range): BP systolic 99–187; BP diastolic 57–88
[2017-09-28] MEDS: fentaNYL Citrate 1000 MCG in NS 100ml IV SCH (00:07)
[2017-09-28] MEDS: Albuterol/Ipratropium 3ml neb HHN SCH ×4 (01:07→19:31)
[2017-09-28] MEDS: NovoLOG Insulin Flexpen SUBQ SCH ×3 (05:38→17:33)
[2017-09-28] MEDS: Piperacillin/Tazobactam 2.25 GM in D5W 55 ML IVPB SCH ×3 (05:46→22:05)
[2017-09-28 07:00] LABS: BASOPHILS % (AUTO) 0.2 % (0.0-2.0); EOSINOPHILS % (AUTO) 11.2 % (0.0-3.0); HEMATOCRIT 29.6 % (42.0-52.0); HEMOGLOBIN 9.3 G/DL (14.2-18.0); MEAN CORPUSCULAR VOLUME 84 FL (80-99); MONOCYTES % (AUTO) 6.5 % (1.0-10.0); NEUTROPHILS % (AUTO) 58.1 % (45.0-75.0); PLATELET COUNT 201 K/UL (150-450); RED BLOOD COUNT 3.54 M/UL (4.70-6.10); RED CELL DISTRIBUTION WIDTH 16.4 % (11.6-14.8); WHITE BLOOD COUNT 10.7 K/UL (4.8-10.8)
[2017-09-28 07:11] LABS: ALANINE AMINOTRANSFERASE 70 U/L (12-78); ALBUMIN 1.7 G/DL (3.4-5.0); ALBUMIN/GLOBULIN RATIO 0.3 (1.0-2.7); ALKALINE PHOSPHATASE 99 U/L (46-116); ANION GAP 5 mmol/L (5-15); ASPARTATE AMINO TRANSFERASE 48 U/L (15-37); BILIRUBIN,TOTAL 0.3 MG/DL (0.2-1.0); BLOOD UREA NITROGEN 44 mg/dL (7-18); CALCIUM 8.9 MG/DL (8.5-10.1); CARBON DIOXIDE 32 MMOL/L (21-32); CHLORIDE 111 MMOL/L (98-107); CREATININE 2.2 MG/DL (0.55-1.30); POTASSIUM 3.5 MMOL/L (3.5-5.1); SODIUM 148 MMOL/L (136-145)
[2017-09-28] MEDS: Heparin 5000 units/ml inj SUBQ SCH ×2 (08:47→20:55)
[2017-09-28] MEDS: Nitroglycerin Patch 0.4mg TDERMAL SCH (08:48)
[2017-09-28] MEDS: Minocycline HCl 50mg cap ORAL SCH ×2 (08:49→20:53)
[2017-09-28] MEDS: Colistin for inhalation INH SCH ×2 (09:43→21:58)
--- NOTE | 2017-09-28 11:34 | Infectious Diseases Prog Note ---
Assessment/Plan Assessment/Plan A: Sepsis/septic shock off pressors Bacteremia with Staph capitis/ contamination Pneumonia with MDR Acinetobacter & Proteus UTI with Proteus treated Respiratory failure ATN DM Anemia Elevated transaminase P: continue Zosyn, Minocycline & Colistin inhaler Family decide about code status tomorrow Subjective ROS Limited/Unobtainable: Yes Respiratory: Reports: other - failed weaning Allergies: Coded Allergies: No Known Allergies (Verified , 01/02/09) Objective Vital Signs Last 24 Hour Vital Signs Date Time Temp Pulse Resp B/P (MAP) Pulse Ox O2 Delivery O2 Flow Rate FiO2 09/28/17 11:00 21 09/28/17 11:00 64 21 176/84 100 Mechanical Ventilator 30 09/28/17 10:47 68 19 30 09/28/17 10:27 66 18 160/82 100 Mechanical Ventilator 30 09/28/17 10:03 65 22 30 09/28/17 10:00 30 09/28/17 10:00 21 09/28/17 10:00 65 19 157/82 99 Mechanical Ventilator 30 09/28/17 09:54 65 35 98 Mechanical Ventilator 30 09/28/17 09:44 63 38 100 Mechanical Ventilator 30 09/28/17 09:30 66 33 178/86 99 Mechanical Ventilator 30 09/28/17 09:00 64 43 160/82 99 Mechanical Ventilator 30 09/28/17 09:00 65 34 30 09/28/17 09:00 40 09/28/17 08:48 164/76 09/28/17 08:30 63 42 162/80 99 Mechanical Ventilator 30 09/28/17 08:00 30 09/28/17 08:00 64 09/28/17 08:00 34 09/28/17 08:00 98.8 62 34 164/76 99 Mechanical Ventilator 30 98.8 09/28/17 07:56 99 09/28/17 07:54 64 32 30 09/28/17 07:06 64 20 100 Mechanical Ventilator 30 09/28/17 07:00 61 21 157/87 100 Mechanical Ventilator 30 09/28/17 07:00 25 09/28/17 06:56 63 20 98 Mechanical Ventilator 30 09/28/17 06:52 63 22 30 09/28/17 06:00 18 09/28/17 06:00 64 18 157/83 100 Mechanical Ventilator 30 09/28/17 05:46 187/87 5/13/18 05:25 64 21 30 09/28/17 05:00 63 18 157/72 100 Mechanical Ventilator 30 09/28/17 05:00 16 09/28/17 04:00 59 09/28/17 04:00 30 09/28/17 04:00 98.3 61 18 187/82 100 Mechanical Ventilator 30 98.3 09/28/17 04:00 25 09/28/17 03:00 23 09/28/17 03:00 60 18 166/87 100 Mechanical Ventilator 30 09/28/17 02:56 60 17 30 09/28/17 02:00 61 23 166/79 100 Mechanical Ventilator 30 09/28/17 02:00 20 09/28/17 01:23 66 19 100 Mechanical Ventilator 30 09/28/17 01:06 63 17 100 Mechanical Ventilator 30 09/28/17 01:05 63 20 30 09/28/17 01:00 18 09/28/17 01:00 62 21 172/82 100 Mechanical Ventilator 30 09/28/17 00:07 23 09/28/17 00:00 97.9 60 23 155/88 100 Mechanical Ventilator 30 97.9 09/28/17 00:00 30 09/28/17 00:00 64 09/27/17 23:50 188/93 09/27/17 23:07 66 19 30 09/27/17 23:00 67 15 188/93 100 Mechanical Ventilator 30 09/27/17 23:00 20 09/27/17 22:00 64 37 99 Mechanical Ventilator 30 09/27/17 22:00 25 09/27/17 22:00 30 09/27/17 22:00 61 18 190/74 100 Mechanical Ventilator 30 09/27/17 21:46 60 35 100 Mechanical Ventilator 30 09/27/17 21:45 61 30 30 09/27/17 21:00 59 29 198/98 100 Mechanical Ventilator 30 09/27/17 21:00 29 09/27/17 20:22 68 19 100 Mechanical Ventilator 30 09/27/17 20:00 30 09/27/17 20:00 64 09/27/17 20:00 18 09/27/17 20:00 98.1 61 18 168/85 99 Mechanical Ventilator 30 98.1 09/27/17 19:28 60 26 30 5/12/18 19:27 60 20 100 Mechanical Ventilator 30 09/27/17 19:27 60 18 100 Mechanical Ventilator 30 09/27/17 19:00 27 09/27/17 19:00 61 21 169/86 99 Mechanical Ventilator 30 09/27/17 18:00 29 09/27/17 18:00 58 23 166/80 100 Mechanical Ventilator 30 09/27/17 17:43 97.6 09/27/17 17:14 177/82 09/27/17 17:13 97.6 09/27/17 17:00 61 21 153/86 100 Mechanical Ventilator 30 09/27/17 16:35 97.6 09/27/17 16:05 18 09/27/17 16:00 40 09/27/17 16:00 61 09/27/17 16:00 98.4 57 16 177/78 100 Mechanical Ventilator 30 98.4 09/27/17 15:15 60 26 30 09/27/17 15:00 58 21 159/74 100 Mechanical Ventilator 30 09/27/17 14:00 63 21 157/76 100 Mechanical Ventilator 30 09/27/17 13:33 174/89 09/27/17 13:00 61 27 152/83 99 Mechanical Ventilator 30 09/27/17 12:57 65 18 100 Mechanical Ventilator 30 09/27/17 12:49 66 16 100 Mechanical Ventilator 30 09/27/17 12:44 65 22 30 09/27/17 12:25 60 21 99 Mechanical Ventilator 30 09/27/17 12:14 66 18 100 Mechanical Ventilator 30 09/27/17 12:14 30 09/27/17 12:00 61 09/27/17 12:00 40 09/27/17 12:00 98.7 60 17 150/75 100 Mechanical Ventilator 30 98.7 Height (Feet): 5 Height (Inches): 8.00 Weight (Pounds): 210 HEENT: other - orally intubated Respiratory/Chest: lungs clear, other - on ventilator Cardiovascular: normal rate, other - left arm PICC line Abdomen: soft, non tender, other - GT feeding Extremities: no edema Neurologic/Psychiatric: unresponsiveness Laboratory Tests Test 09/28/17 04:00 White Blood Count 10.7 K/UL (4.8-10.8) Red Blood Count 3.54 M/UL (4.70-6.10) L Hemoglobin 9.3 G/DL (14.2-18.0) L Hematocrit 29.6 % (42.0-52.0) L Mean Corpuscular Volume 84 FL (80-99) Mean Corpuscular Hemoglobin 26.4 PG (27.0-31.0) L Mean Corpuscular Hemoglobin Concent 31.6 G/DL (32.0-36.0) L Red Cell Distribution Width 16.4 % (11.6-14.8) H Platelet Count 201 K/UL (150-450) Mean Platelet Volume 7.4 FL (6.5-10.1) Neutrophils (%) (Auto) 58.1 % (45.0-75.0) Lymphocytes (%) (Auto) 24.0 % (20.0-45.0) Monocytes (%) (Auto) 6.5 % (1.0-10.0) Eosinophils (%) (Auto) 11.2 % (0.0-3.0) H Basophils (%) (Auto) 0.2 % (0.0-2.0) Sodium Level 148 MMOL/L (136-145) H Potassium Level 3.5 MMOL/L (3.5-5.1) Chloride Level 111 MMOL/L (98-107) H Carbon Dioxide Level 32 MMOL/L (21-32) Anion Gap 5 mmol/L (5-15) Blood Urea Nitrogen 44 mg/dL (7-18) H Creatinine 2.2 MG/DL (0.55-1.30) H Estimat Glomerular Filtration Rate mL/min (>60) Glucose Level 78 MG/DL (74-106) Calcium Level 8.9 MG/DL (8.5-10.1) Total Bilirubin 0.3 MG/DL (0.2-1.0) Aspartate Amino Transf (AST/SGOT) 48 U/L (15-37) H Alanine Aminotransferase (ALT/SGPT) 70 U/L (12-78) Alkaline Phosphatase 99 U/L (46-116) Total Protein 7.8 G/DL (6.4-8.2) Albumin 1.7 G/DL (3.4-5.0) L Globulin 6.1 g/dL Albumin/Globulin Ratio 0.3 (1.0-2.7) L Current Medications Medications (Trade) Dose Ordered Sig/Keira Route PRN Reason Start Time Stop Time Status Last Admin Dose Admin Acetaminophen (Tylenol) 650 mg Q6H PRN NG Mild Pain/Temp > 100.5 09/22/17 20:00 10/22/17 19:59 09/27/17 17:13 Albuterol/ Ipratropium (Albuterol/ Ipratropium) 3 ml Q4H PRN HHN Shortness of Breath 09/25/17 10:00 09/30/17 09:59 Albuterol/ Ipratropium (Albuterol/ Ipratropium) 3 ml Q6HRT HHN 09/27/17 19:00 09/30/17 18:59 09/28/17 06:55 Chlorhexidine Gluconate (Michelle-Hex 2%) 1 applic DAILY@1999 TOPIC 09/27/17 20:00 10/27/17 19:59 09/27/17 20:49 Colistimethate Sodium (Colistin *inhalation use only*) 75 mg Q12HR@ INH 09/27/17 22:00 10/04/17 21:59 09/28/17 09:43 Dextrose (Dextrose 50%) 25 ml STAT PRN IV Hypoglycemia 09/19/17 14:15 10/19/17 14:14 Dextrose (Dextrose 50%) 50 ml STAT PRN IV Hypoglycemia 09/19/17 14:15 10/19/17 14:14 Famotidine (Pepcid I.v.) 20 mg Q12HR IVP 09/27/17 21:00 10/27/17 20:59 09/28/17 08:48 Fentanyl Citrate 1000 mcg/Sodium Chloride 100 ml @ 1.25 mls/hr Q24H IV 09/28/17 00:00 10/05/17 00:00 09/28/17 00:07 Heparin Sodium (Porcine) (Heparin 5000 units/ml) 5,000 units EVERY 12 HOURS SUBQ 09/27/17 21:00 10/27/17 20:59 09/28/17 08:47 Insulin Aspart (NovoLOG) EVERY 6 HOURS SUBQ 09/22/17 00:00 10/19/17 16:29 09/27/17 23:51 Isosorbide Dinitrate (Isordil) 10 mg Q6HR NG 09/27/17 12:00 10/27/17 11:59 09/28/17 05:46 Loperamide HCl (Imodium) 2 mg Q6H PRN NG Diarrhea 09/25/17 11:30 10/25/17 11:29 Lorazepam (Ativan 2mg/ml 1ml) 1 mg Q4H PRN IV For Anxiety 09/24/17 10:30 10/01/17 10:29 09/27/17 17:13 Minocycline HCl (Minocin) 100 mg Q12HR ORAL 09/27/17 21:00 09/30/17 23:59 09/28/17 08:49 Nitroglycerin (Ntg) 1 patch Q24H TDERMAL 09/28/17 09:00 10/28/17 08:59 09/28/17 08:48 Piperacillin Sod/ Tazobactam Sod 2.25 gm/Dextrose 55 ml @ 110 mls/hr Q8HR IVPB 09/19/17 22:00 09/30/17 23:59 09/28/17 05:46 ANDRES SAVAGE September 28, 2017 11:34
--- NOTE | 2017-09-28 12:25 | Pulmonolgy Critical Care Note ---
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 (4) Sepsis (5) UTI (urinary tract infection) Assessment & Plan: ESLB proteus (6) Renal failure (7) Feeding by G-tube (8) Acute encephalopathy (9) HCAP (healthcare-associated pneumonia) (10) s/p multiple lacunar strokes, old (11) recent L MCA ischemic stroke (12) Bacterial infection due to Staphylococcus Assessment & Plan: S capitis 5/4, repeat CX's NG Respiratory: monitor respiratory rate, CXR - in am, weaning trial - PS trials as able, hope to extubate next 1-2 days o/w will need trach vs palliative extubation, other - RTC and PRH HHN's, pulm hygiene Cardiac: continue to monitor HR/BP Renal: check electrolytes, other - keep as negative as able Infectious Disease: continue antibiotics - zosyn and colistin per ID Gastrointestinal: continue feedings/current rate Endocrine: monitor blood sugar, continue sliding scale insulin Hematologic: monitor H/H Neurologic: keep patient comfortable - continue low dose fent gtt Prophylaxis: Heparin, other - Famotidine Disposition: keep in ICU Time Spent (Minutes): 40 Notes 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, 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, 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, ID Discussed with: nurses, consultants, family member, other - will d/w family Re : [facility], there are 18 children who are discussing amongs themselves Critical Care - Objective Last 24 Hour Vital Signs Date Time Temp Pulse Resp B/P (MAP) Pulse Ox O2 Delivery O2 Flow Rate FiO2 09/28/17 12:00 64 20 164/83 100 Mechanical Ventilator 30 09/28/17 12:00 67 09/28/17 11:54 176/84 09/28/17 11:30 64 20 165/84 100 Mechanical Ventilator 30 09/28/17 11:00 21 09/28/17 11:00 64 21 176/84 100 Mechanical Ventilator 30 09/28/17 10:47 68 19 30 09/28/17 10:27 66 18 160/82 100 Mechanical Ventilator 30 09/28/17 10:03 65 22 30 09/28/17 10:00 30 09/28/17 10:00 21 09/28/17 10:00 65 19 157/82 99 Mechanical Ventilator 30 09/28/17 09:54 65 35 98 Mechanical Ventilator 30 09/28/17 09:44 63 38 100 Mechanical Ventilator 30 09/28/17 09:30 66 33 178/86 99 Mechanical Ventilator 30 09/28/17 09:00 64 43 160/82 99 Mechanical Ventilator 30 09/28/17 09:00 65 34 30 09/28/17 09:00 40 09/28/17 08:48 164/76 09/28/17 08:30 63 42 162/80 99 Mechanical Ventilator 30 09/28/17 08:00 30 09/28/17 08:00 64 09/28/17 08:00 34 09/28/17 08:00 98.8 62 34 164/76 99 Mechanical Ventilator 30 98.8 09/28/17 07:56 99 09/28/17 07:54 64 32 30 09/28/17 07:06 64 20 100 Mechanical Ventilator 30 09/28/17 07:00 61 21 157/87 100 Mechanical Ventilator 30 09/28/17 07:00 25 09/28/17 06:56 63 20 98 Mechanical Ventilator 30 09/28/17 06:52 63 22 30 09/28/17 06:00 18 09/28/17 06:00 64 18 157/83 100 Mechanical Ventilator 30 09/28/17 05:46 187/87 09/28/17 05:25 64 21 30 09/28/17 05:00 63 18 157/72 100 Mechanical Ventilator 30 09/28/17 05:00 16 09/28/17 04:00 59 09/28/17 04:00 30 09/28/17 04:00 98.3 61 18 187/82 100 Mechanical Ventilator 30 98.3 09/28/17 04:00 25 09/28/17 03:00 23 09/28/17 03:00 60 18 166/87 100 Mechanical Ventilator 30 09/28/17 02:56 60 17 30 09/28/17 02:00 61 23 166/79 100 Mechanical Ventilator 30 09/28/17 02:00 20 09/28/17 01:23 66 19 100 Mechanical Ventilator 30 09/28/17 01:06 63 17 100 Mechanical Ventilator 30 09/28/17 01:05 63 20 30 09/28/17 01:00 18 09/28/17 01:00 62 21 172/82 100 Mechanical Ventilator 30 09/28/17 00:07 23 5/13/18 00:00 97.9 60 23 155/88 100 Mechanical Ventilator 30 97.9 09/28/17 00:00 30 09/28/17 00:00 64 09/27/17 23:50 188/93 09/27/17 23:07 66 19 30 09/27/17 23:00 67 15 188/93 100 Mechanical Ventilator 30 09/27/17 23:00 20 09/27/17 22:00 64 37 99 Mechanical Ventilator 30 09/27/17 22:00 25 09/27/17 22:00 30 09/27/17 22:00 61 18 190/74 100 Mechanical Ventilator 30 09/27/17 21:46 60 35 100 Mechanical Ventilator 30 09/27/17 21:45 61 30 30 09/27/17 21:00 59 29 198/98 100 Mechanical Ventilator 30 09/27/17 21:00 29 09/27/17 20:22 68 19 100 Mechanical Ventilator 30 09/27/17 20:00 30 09/27/17 20:00 64 09/27/17 20:00 18 09/27/17 20:00 98.1 61 18 168/85 99 Mechanical Ventilator 30 98.1 09/27/17 19:28 60 26 30 09/27/17 19:27 60 20 100 Mechanical Ventilator 30 09/27/17 19:27 60 18 100 Mechanical Ventilator 30 09/27/17 19:00 27 09/27/17 19:00 61 21 169/86 99 Mechanical Ventilator 30 09/27/17 18:00 29 09/27/17 18:00 58 23 166/80 100 Mechanical Ventilator 30 09/27/17 17:43 97.6 09/27/17 17:14 177/82 09/27/17 17:13 97.6 09/27/17 17:00 61 21 153/86 100 Mechanical Ventilator 30 09/27/17 16:35 97.6 09/27/17 16:05 18 09/27/17 16:00 40 09/27/17 16:00 61 09/27/17 16:00 98.4 57 16 177/78 100 Mechanical Ventilator 30 98.4 09/27/17 15:15 60 26 30 09/27/17 15:00 58 21 159/74 100 Mechanical Ventilator 30 09/27/17 14:00 63 21 157/76 100 Mechanical Ventilator 30 09/27/17 13:33 174/89 09/27/17 13:00 61 27 152/83 99 Mechanical Ventilator 30 09/27/17 12:57 65 18 100 Mechanical Ventilator 30 09/27/17 12:49 66 16 100 Mechanical Ventilator 30 09/27/17 12:44 65 22 30 09/27/17 12:25 60 21 99 Mechanical Ventilator 30 Status: awake Condition: improving HEENT: atraumatic, normocephalic Lungs: clear Heart: HR/BP stable Abdomen: soft, non-tender, active bowel sounds, feeding tube Extremities: no C/C/E Decubiti: location - sacrum and penis, stage - 3 Accucheck: 117 Critical Care - Subjective ROS Limited/Unobtainable: Yes ICU Day: 10 Intubation Day: 10 Interval Events: On Fent gtt low dose, burton PS 10 x several hours yesterday and again this am, then got tired now back on A/C, no sig secretions Condition: improving IV Access: PICC EKG Rhythm: Sinus Rhythm FI02: 30 Vent Support Breath Rate: 16 Vent Support Mode: AC Vent Tidal Volume: 450 Sputum Amount: Small PEEP: 5.0 PIP: 22 Tube Feeding Amount: 30 Residuals: 0 I&O: Intake and Output 09/27/17 09/28/17 19:00 07:00 Intake Total 519.90 ml 583.75 ml Output Total 1100 ml 490 ml Balance -580.10 ml 93.75 ml Free Water 100 ml IV Total 129.90 ml 123.75 ml Tube Feeding 390 ml 360 ml Output Urine Total 1100 ml 490 ml Subjective: Unable to obtain ET-Tube: 8.0 ET Position: 24 Labs: Laboratory Tests Test 09/28/17 04:00 White Blood Count 10.7 K/UL (4.8-10.8) Red Blood Count 3.54 M/UL (4.70-6.10) L Hemoglobin 9.3 G/DL (14.2-18.0) L Hematocrit 29.6 % (42.0-52.0) L Mean Corpuscular Volume 84 FL (80-99) Mean Corpuscular Hemoglobin 26.4 PG (27.0-31.0) L Mean Corpuscular Hemoglobin Concent 31.6 G/DL (32.0-36.0) L Red Cell Distribution Width 16.4 % (11.6-14.8) H Platelet Count 201 K/UL (150-450) Mean Platelet Volume 7.4 FL (6.5-10.1) Neutrophils (%) (Auto) 58.1 % (45.0-75.0) Lymphocytes (%) (Auto) 24.0 % (20.0-45.0) Monocytes (%) (Auto) 6.5 % (1.0-10.0) Eosinophils (%) (Auto) 11.2 % (0.0-3.0) H Basophils (%) (Auto) 0.2 % (0.0-2.0) Sodium Level 148 MMOL/L (136-145) H Potassium Level 3.5 MMOL/L (3.5-5.1) Chloride Level 111 MMOL/L (98-107) H Carbon Dioxide Level 32 MMOL/L (21-32) Anion Gap 5 mmol/L (5-15) Blood Urea Nitrogen 44 mg/dL (7-18) H Creatinine 2.2 MG/DL (0.55-1.30) H Estimat Glomerular Filtration Rate mL/min (>60) Glucose Level 78 MG/DL (74-106) Calcium Level 8.9 MG/DL (8.5-10.1) Total Bilirubin 0.3 MG/DL (0.2-1.0) Aspartate Amino Transf (AST/SGOT) 48 U/L (15-37) H Alanine Aminotransferase (ALT/SGPT) 70 U/L (12-78) Alkaline Phosphatase 99 U/L (46-116) Total Protein 7.8 G/DL (6.4-8.2) Albumin 1.7 G/DL (3.4-5.0) L Globulin 6.1 g/dL Albumin/Globulin Ratio 0.3 (1.0-2.7) L CHRISTINA KIDD M.D. September 28, 2017 12:25
--- NOTE | 2017-09-28 14:13 | Nephrology Progress Note ---
Assessment/Plan Problem List: (1) ATN (acute tubular necrosis) (2) Septic shock (3) Respiratory failure (4) Diabetes mellitus Assessment Acute Renal failure- Cr lower ? Underlying CKD Component of dehydration, Pre renal state and Hypernatremia Acute respiratory failure, Aspiartion Pneumonia, UTI Septic Shock H/O Multiple Strokes Anemia Elevated Troponin Hyperglycemia PEG Plan transfused add isordil Pulm support Hydrate- avoid nephrotoxics Monitor renal parameters Hemodynamic support IV iron Nitro and asa GT feeding Per orders Subjective ROS Limited/Unobtainable: Yes Objective Objective Last 24 Hour Vital Signs Date Time Temp Pulse Resp B/P (MAP) Pulse Ox O2 Delivery O2 Flow Rate FiO2 09/28/17 13:00 76 20 121/73 100 Mechanical Ventilator 36 09/28/17 12:51 64 38 100 Mechanical Ventilator 30 09/28/17 12:46 173/81 09/28/17 12:37 67 39 99 Mechanical Ventilator 30 09/28/17 12:32 64 36 30 09/28/17 12:30 79 20 147/80 100 Mechanical Ventilator 38 09/28/17 12:30 35 09/28/17 12:26 30 09/28/17 12:00 64 20 164/83 100 Mechanical Ventilator 30 09/28/17 12:00 67 09/28/17 12:00 24 09/28/17 11:54 176/84 09/28/17 11:30 64 20 165/84 100 Mechanical Ventilator 30 09/28/17 11:00 21 09/28/17 11:00 64 21 176/84 100 Mechanical Ventilator 30 09/28/17 10:47 68 19 30 09/28/17 10:27 66 18 160/82 100 Mechanical Ventilator 30 09/28/17 10:03 65 22 30 09/28/17 10:00 30 09/28/17 10:00 21 09/28/17 10:00 65 19 157/82 99 Mechanical Ventilator 30 09/28/17 09:54 65 35 98 Mechanical Ventilator 30 09/28/17 09:44 63 38 100 Mechanical Ventilator 30 09/28/17 09:30 66 33 178/86 99 Mechanical Ventilator 30 09/28/17 09:00 64 43 160/82 99 Mechanical Ventilator 30 09/28/17 09:00 65 34 30 09/28/17 09:00 40 09/28/17 08:48 164/76 09/28/17 08:30 63 42 162/80 99 Mechanical Ventilator 30 09/28/17 08:00 30 09/28/17 08:00 64 09/28/17 08:00 34 09/28/17 08:00 98.8 62 34 164/76 99 Mechanical Ventilator 30 98.8 09/28/17 07:56 99 09/28/17 07:54 64 32 30 09/28/17 07:06 64 20 100 Mechanical Ventilator 30 09/28/17 07:00 61 21 157/87 100 Mechanical Ventilator 30 09/28/17 07:00 25 09/28/17 06:56 63 20 98 Mechanical Ventilator 30 09/28/17 06:52 63 22 30 09/28/17 06:00 18 09/28/17 06:00 64 18 157/83 100 Mechanical Ventilator 30 09/28/17 05:46 187/87 09/28/17 05:25 64 21 30 09/28/17 05:00 63 18 157/72 100 Mechanical Ventilator 30 09/28/17 05:00 16 09/28/17 04:00 59 09/28/17 04:00 30 09/28/17 04:00 98.3 61 18 187/82 100 Mechanical Ventilator 30 98.3 09/28/17 04:00 25 09/28/17 03:00 23 09/28/17 03:00 60 18 166/87 100 Mechanical Ventilator 30 09/28/17 02:56 60 17 30 09/28/17 02:00 61 23 166/79 100 Mechanical Ventilator 30 09/28/17 02:00 20 09/28/17 01:23 66 19 100 Mechanical Ventilator 30 09/28/17 01:06 63 17 100 Mechanical Ventilator 30 09/28/17 01:05 63 20 30 09/28/17 01:00 18 09/28/17 01:00 62 21 172/82 100 Mechanical Ventilator 30 09/28/17 00:07 23 09/28/17 00:00 97.9 60 23 155/88 100 Mechanical Ventilator 30 97.9 09/28/17 00:00 30 09/28/17 00:00 64 09/27/17 23:50 188/93 09/27/17 23:07 66 19 30 09/27/17 23:00 67 15 188/93 100 Mechanical Ventilator 30 09/27/17 23:00 20 09/27/17 22:00 64 37 99 Mechanical Ventilator 30 09/27/17 22:00 25 09/27/17 22:00 30 09/27/17 22:00 61 18 190/74 100 Mechanical Ventilator 30 09/27/17 21:46 60 35 100 Mechanical Ventilator 30 09/27/17 21:45 61 30 30 09/27/17 21:00 59 29 198/98 100 Mechanical Ventilator 30 09/27/17 21:00 29 09/27/17 20:22 68 19 100 Mechanical Ventilator 30 09/27/17 20:00 30 09/27/17 20:00 64 09/27/17 20:00 18 09/27/17 20:00 98.1 61 18 168/85 99 Mechanical Ventilator 30 98.1 09/27/17 19:28 60 26 30 09/27/17 19:27 60 20 100 Mechanical Ventilator 30 09/27/17 19:27 60 18 100 Mechanical Ventilator 30 09/27/17 19:00 27 09/27/17 19:00 61 21 169/86 99 Mechanical Ventilator 30 09/27/17 18:00 29 09/27/17 18:00 58 23 166/80 100 Mechanical Ventilator 30 09/27/17 17:43 97.6 09/27/17 17:14 177/82 09/27/17 17:13 97.6 09/27/17 17:00 61 21 153/86 100 Mechanical Ventilator 30 09/27/17 16:35 97.6 09/27/17 16:05 18 09/27/17 16:00 40 09/27/17 16:00 61 09/27/17 16:00 98.4 57 16 177/78 100 Mechanical Ventilator 30 98.4 09/27/17 15:15 60 26 30 09/27/17 15:00 58 21 159/74 100 Mechanical Ventilator 30 Intake and Output 09/27/17 09/28/17 19:00 07:00 Intake Total 519.90 ml 583.75 ml Output Total 1100 ml 490 ml Balance -580.10 ml 93.75 ml Free Water 100 ml IV Total 129.90 ml 123.75 ml Tube Feeding 390 ml 360 ml Output Urine Total 1100 ml 490 ml Laboratory Tests 09/28/17 04:00: White Blood Count 10.7, Red Blood Count 3.54L, Hemoglobin 9.3L, Hematocrit 29.6L , Mean Corpuscular Volume 84, Mean Corpuscular Hemoglobin 26.4L, Mean Corpuscular Hemoglobin Concent 31.6L, Red Cell Distribution Width 16.4H, Platelet Count 201, Mean Platelet Volume 7.4, Neutrophils (%) (Auto) 58.1, Lymphocytes (%) (Auto) 24.0, Monocytes (%) (Auto) 6.5, Eosinophils (%) (Auto) 11.2H, Basophils (%) (Auto) 0.2, Sodium Level 148H, Potassium Level 3.5, Chloride Level 111H, Carbon Dioxide Level 32, Anion Gap 5, Blood Urea Nitrogen 44H, Creatinine 2.2H, Estimat Glomerular Filtration Rate , Glucose Level 78, Calcium Level 8.9, Total Bilirubin 0.3, Aspartate Amino Transf (AST/SGOT) 48H, Alanine Aminotransferase (ALT/SGPT) 70, Alkaline Phosphatase 99, Total Protein 7.8, Albumin 1.7L, Globulin 6.1, Albumin/Globulin Ratio 0.3L Height (Feet): 5 Height (Inches): 8.00 Weight (Pounds): 210 General Appearance: no apparent distress Cardiovascular: tachycardia Respiratory/Chest: decreased breath sounds ROSE MARY REID September 28, 2017 14:13
[2017-09-28] MEDS ORDERED: Tubing IV Secondary IV ONE ×3 (16:07→16:23)
[2017-09-28] MEDS ORDERED: NS 500ML ONE (16:07)
[2017-09-28] MEDS ORDERED: NS 275ml ONE (16:22)
[2017-09-28] MEDS: Dyna-Hex 2% Top Sol 2oz TOPIC SCH (20:00)
[2017-09-29] VITALS (24 sets, daily range): BP systolic 115–169; BP diastolic 63–99
[2017-09-29] MEDS: NovoLOG Insulin Flexpen SUBQ SCH ×5 (00:06→23:43)
[2017-09-29] MEDS: Albuterol/Ipratropium 3ml neb HHN SCH ×4 (01:16→18:59)
[2017-09-29] MEDS: Piperacillin/Tazobactam 2.25 GM in D5W 55 ML IVPB SCH ×3 (05:53→21:53)
[2017-09-29] MEDS: Colistin for inhalation INH SCH ×2 (07:24→22:46)
--- NOTE | 2017-09-29 08:36 | Pulmonolgy Critical Care Note ---
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 (4) Sepsis (5) UTI (urinary tract infection) Assessment & Plan: ESLB proteus (6) Renal failure (7) Feeding by G-tube (8) Acute encephalopathy (9) HCAP (healthcare-associated pneumonia) (10) s/p multiple lacunar strokes, old (11) recent L MCA ischemic stroke (12) Bacterial infection due to Staphylococcus Assessment & Plan: S capitis /, repeat CX's NG Respiratory: CXR, ABG - Optimize pulmonary hygiene/mobilize as tolerated, RTC and PRN HHN's, weaning trial - attempt PS again today, if unable to wean may need trach (if within GOC), other Cardiac: continue to monitor HR/BP Renal: F/U I&O, check electrolytes, other - Keep slightly negative Infectious Disease: continue antibiotics - Minocycline & colistin per ID Gastrointestinal: continue feedings/current rate - if plan to extubate will need to hold TF's Endocrine: monitor blood sugar, continue sliding scale insulin Hematologic: monitor H/H Neurologic: keep patient comfortable - Fent gtt + PRN Ativan - titrate RASS - 2 Prophylaxis: Heparin - SQ, other - Famotodine Disposition: keep in ICU Time Spent (Minutes): 60 Notes Reviewed: anesthesiology teacher, cardio, renal, ID, other - Family mtg today with bioethics to further discuss GOC Discussed with: nurses, consultants, case resource manager, family member Critical Care - Objective Last 24 Hour Vital Signs Date Time Temp Pulse Resp B/P (MAP) Pulse Ox O2 Delivery O2 Flow Rate FiO2 09/29/17 07:29 82 16 100 Mechanical Ventilator 30 09/29/17 07:27 82 16 30 09/29/17 07:10 84 16 100 Mechanical Ventilator 30 09/29/17 07:10 86 18 100 Mechanical Ventilator 30 09/29/17 07:00 88 16 100 Mechanical Ventilator 30 09/29/17 06:00 79 27 162/99 99 Mechanical Ventilator 30 09/29/17 06:00 22 09/29/17 05:58 168/90 09/29/17 05:53 168/90 09/29/17 05:26 74 20 30 09/29/17 05:00 19 09/29/17 05:00 74 19 168/90 100 Mechanical Ventilator 30 09/29/17 04:00 30 09/29/17 04:00 99.0 72 17 165/77 100 Mechanical Ventilator 30 99.0 09/29/17 04:00 17 09/29/17 04:00 72 09/29/17 03:21 61 18 30 09/29/17 03:00 65 18 165/77 99 Mechanical Ventilator 30 09/29/17 03:00 18 09/29/17 02:00 65 18 152/71 99 Mechanical Ventilator 30 09/29/17 02:00 18 09/29/17 01:16 68 18 100 Mechanical Ventilator 30 09/29/17 01:04 71 17 100 Mechanical Ventilator 30 09/29/17 01:02 64 17 30 09/29/17 01:00 66 18 148/66 99 Mechanical Ventilator 30 09/29/17 01:00 18 09/29/17 00:11 159/73 09/29/17 00:00 17 09/29/17 00:00 99.0 64 17 159/73 99 Mechanical Ventilator 30 99.0 09/28/17 23:00 20 09/28/17 23:00 66 20 154/69 100 Mechanical Ventilator 30 09/28/17 22:47 71 16 30 09/28/17 22:00 65 16 100 Mechanical Ventilator 30 09/28/17 22:00 69 18 160/79 100 Mechanical Ventilator 30 09/28/17 22:00 18 09/28/17 21:52 69 16 100 Mechanical Ventilator 30 09/28/17 21:04 69 16 30 09/28/17 21:00 20 09/28/17 21:00 68 20 144/74 100 Mechanical Ventilator 30 09/28/17 20:00 98.7 68 21 147/64 100 Mechanical Ventilator 30 98.7 09/28/17 20:00 30 09/28/17 20:00 68 09/28/17 20:00 21 09/28/17 19:11 67 16 100 Mechanical Ventilator 30 09/28/17 19:02 68 16 100 Mechanical Ventilator 30 09/28/17 19:02 68 16 30 09/28/17 19:00 21 09/28/17 19:00 68 19 118/64 100 Mechanical Ventilator 30 09/28/17 18:00 73 22 121/62 100 Mechanical Ventilator 30 09/28/17 18:00 22 09/28/17 17:33 126/62 09/28/17 17:30 74 21 140/65 98 Mechanical Ventilator 30 09/28/17 17:00 98.6 69 22 126/62 98 Mechanical Ventilator 30 98.6 09/28/17 17:00 20 09/28/17 16:45 80 22 30 09/28/17 16:30 98.6 73 19 122/65 100 Mechanical Ventilator 30 98.6 09/28/17 16:00 30 09/28/17 16:00 98.6 70 18 128/67 100 Mechanical Ventilator 30 98.6 09/28/17 16:00 19 09/28/17 16:00 72 09/28/17 15:30 70 18 114/66 100 Mechanical Ventilator 30 09/28/17 15:00 71 20 132/68 99 Mechanical Ventilator 30 09/28/17 15:00 19 09/28/17 14:43 22 09/28/17 14:36 30 09/28/17 14:31 74 20 30 09/28/17 14:30 74 20 99/57 100 Mechanical Ventilator 30 09/28/17 14:00 78 50 135/70 100 Mechanical Ventilator 30 09/28/17 14:00 49 09/28/17 13:30 78 43 135/70 100 Mechanical Ventilator 30 09/28/17 13:00 76 45 121/73 100 Mechanical Ventilator 36 09/28/17 13:00 45 09/28/17 12:51 64 38 100 Mechanical Ventilator 30 09/28/17 12:46 173/81 09/28/17 12:37 67 39 99 Mechanical Ventilator 30 09/28/17 12:32 64 36 30 09/28/17 12:30 79 43 147/80 100 Mechanical Ventilator 38 09/28/17 12:30 35 09/28/17 12:26 30 09/28/17 12:00 64 20 164/83 100 Mechanical Ventilator 30 09/28/17 12:00 67 09/28/17 12:00 24 09/28/17 11:54 176/84 09/28/17 11:30 64 20 165/84 100 Mechanical Ventilator 30 09/28/17 11:00 21 09/28/17 11:00 64 21 176/84 100 Mechanical Ventilator 30 09/28/17 10:47 68 19 30 5/13/18 10:27 66 18 160/82 100 Mechanical Ventilator 30 09/28/17 10:03 65 22 30 09/28/17 10:00 30 09/28/17 10:00 21 09/28/17 10:00 65 19 157/82 99 Mechanical Ventilator 30 09/28/17 09:54 65 35 98 Mechanical Ventilator 30 09/28/17 09:44 63 38 100 Mechanical Ventilator 30 09/28/17 09:30 66 33 178/86 99 Mechanical Ventilator 30 09/28/17 09:00 64 43 160/82 99 Mechanical Ventilator 30 09/28/17 09:00 65 34 30 09/28/17 09:00 40 09/28/17 08:48 164/76 Status: obtunded Condition: critical HEENT: atraumatic, normocephalic Neck: full ROM Lungs: rhonchi - scattered Heart: HR/BP stable Abdomen: soft, non-tender, active bowel sounds, feeding tube Extremities: no C/C/E Decubiti: location - sacrum, penis, stage - 3 Accucheck: 109 Blood Sugars: BS controlled Critical Care - Subjective ROS Limited/Unobtainable: Yes ICU Day: 11 Intubation Day: 11 Interval Events: Tm 99, burton PS x a few hours yesterday, no sig secretions, no F/C Condition: improving IV Access: PICC EKG Rhythm: Sinus Rhythm FI02: 30 Vent Support Breath Rate: 16 Vent Support Mode: AC Vent Tidal Volume: 450 Sputum Amount: Large PEEP: 5.0 PIP: 23 Drips: Fent @ 25 Tube Feeding Amount: 30 Residuals: 0 I&O: Intake and Output 09/28/17 09/29/17 19:00 07:00 Intake Total 686.55 ml 453.75 ml Output Total 330 ml 480 ml Balance 356.55 ml -26.25 ml Free Water 200 ml IV Total 126.55 ml 123.75 ml Tube Feeding 360 ml 330 ml Output Urine Total 330 ml 380 ml Stool Total 100 ml Subjective: Unable to obtain ET-Tube: 8.0 ET Position: 24 CHRISTINA KIDD M.D. September 29, 2017 08:36
[2017-09-29] MEDS: Minocycline HCl 50mg cap ORAL SCH ×2 (09:41→20:41)
[2017-09-29] MEDS: Nitroglycerin Patch 0.4mg TDERMAL SCH (09:42)
[2017-09-29] MEDS: Heparin 5000 units/ml inj SUBQ SCH ×2 (09:47→20:43)
[2017-09-29] MEDS ORDERED: Albuterol/Ipratropium 3ml neb HHN PRN (10:00)
--- NOTE | 2017-09-29 11:24 | Nephrology Progress Note ---
Assessment/Plan Problem List: (1) ATN (acute tubular necrosis) (2) Septic shock (3) Respiratory failure (4) Diabetes mellitus Assessment Acute Renal failure- Cr lower ? Underlying CKD Component of dehydration, Pre renal state and Hypernatremia Acute respiratory failure, Aspiartion Pneumonia, UTI Septic Shock H/O Multiple Strokes Anemia Elevated Troponin Hyperglycemia PEG Plan transfused add isordil Pulm support Hydrate- avoid nephrotoxics Monitor renal parameters Hemodynamic support IV iron Nitro and asa GT feeding Per orders Subjective ROS Limited/Unobtainable: Yes Objective Objective Last 24 Hour Vital Signs Date Time Temp Pulse Resp B/P (MAP) Pulse Ox O2 Delivery O2 Flow Rate FiO2 09/29/17 11:15 78 19 30 09/29/17 11:00 78 22 162/91 99 Mechanical Ventilator 30 09/29/17 10:00 79 21 162/90 99 Mechanical Ventilator 30 09/29/17 09:42 164/92 09/29/17 09:02 89 36 30 09/29/17 09:00 30 09/29/17 09:00 85 23 164/92 99 Mechanical Ventilator 30 09/29/17 08:30 99 09/29/17 08:00 79 23 157/87 99 Mechanical Ventilator 30 09/29/17 08:00 30 09/29/17 08:00 84 09/29/17 07:29 82 16 100 Mechanical Ventilator 30 09/29/17 07:27 82 16 30 09/29/17 07:10 84 16 100 Mechanical Ventilator 30 09/29/17 07:10 86 18 100 Mechanical Ventilator 30 09/29/17 07:00 98.5 72 22 147/81 100 Mechanical Ventilator 30 98.5 09/29/17 07:00 88 16 100 Mechanical Ventilator 30 09/29/17 06:00 79 27 162/99 99 Mechanical Ventilator 30 09/29/17 06:00 22 09/29/17 05:58 168/90 09/29/17 05:53 168/90 09/29/17 05:26 74 20 30 09/29/17 05:00 19 09/29/17 05:00 74 19 168/90 100 Mechanical Ventilator 30 09/29/17 04:00 30 09/29/17 04:00 99.0 72 17 165/77 100 Mechanical Ventilator 30 99.0 09/29/17 04:00 17 09/29/17 04:00 72 09/29/17 03:21 61 18 30 09/29/17 03:00 65 18 165/77 99 Mechanical Ventilator 30 09/29/17 03:00 18 09/29/17 02:00 65 18 152/71 99 Mechanical Ventilator 30 09/29/17 02:00 18 09/29/17 01:16 68 18 100 Mechanical Ventilator 30 09/29/17 01:04 71 17 100 Mechanical Ventilator 30 09/29/17 01:02 64 17 30 09/29/17 01:00 66 18 148/66 99 Mechanical Ventilator 30 09/29/17 01:00 18 09/29/17 00:11 159/73 09/29/17 00:00 17 09/29/17 00:00 99.0 64 17 159/73 99 Mechanical Ventilator 30 99.0 09/28/17 23:00 20 09/28/17 23:00 66 20 154/69 100 Mechanical Ventilator 30 09/28/17 22:47 71 16 30 09/28/17 22:00 65 16 100 Mechanical Ventilator 30 09/28/17 22:00 69 18 160/79 100 Mechanical Ventilator 30 09/28/17 22:00 18 09/28/17 21:52 69 16 100 Mechanical Ventilator 30 09/28/17 21:04 69 16 30 09/28/17 21:00 20 09/28/17 21:00 68 20 144/74 100 Mechanical Ventilator 30 09/28/17 20:00 98.7 68 21 147/64 100 Mechanical Ventilator 30 98.7 09/28/17 20:00 30 09/28/17 20:00 68 09/28/17 20:00 21 09/28/17 19:11 67 16 100 Mechanical Ventilator 30 09/28/17 19:02 68 16 100 Mechanical Ventilator 30 09/28/17 19:02 68 16 30 09/28/17 19:00 21 09/28/17 19:00 68 19 118/64 100 Mechanical Ventilator 30 09/28/17 18:00 73 22 121/62 100 Mechanical Ventilator 30 09/28/17 18:00 22 09/28/17 17:33 126/62 09/28/17 17:30 74 21 140/65 98 Mechanical Ventilator 30 09/28/17 17:00 98.6 69 22 126/62 98 Mechanical Ventilator 30 98.6 09/28/17 17:00 20 09/28/17 16:45 80 22 30 09/28/17 16:30 98.6 73 19 122/65 100 Mechanical Ventilator 30 98.6 09/28/17 16:00 30 09/28/17 16:00 98.6 70 18 128/67 100 Mechanical Ventilator 30 98.6 09/28/17 16:00 19 09/28/17 16:00 72 09/28/17 15:30 70 18 114/66 100 Mechanical Ventilator 30 09/28/17 15:00 71 20 132/68 99 Mechanical Ventilator 30 09/28/17 15:00 19 09/28/17 14:43 22 09/28/17 14:36 30 09/28/17 14:31 74 20 30 09/28/17 14:30 74 20 99/57 100 Mechanical Ventilator 30 09/28/17 14:00 78 50 135/70 100 Mechanical Ventilator 30 09/28/17 14:00 49 09/28/17 13:30 78 43 135/70 100 Mechanical Ventilator 30 09/28/17 13:00 76 45 121/73 100 Mechanical Ventilator 36 09/28/17 13:00 45 09/28/17 12:51 64 38 100 Mechanical Ventilator 30 09/28/17 12:46 173/81 09/28/17 12:37 67 39 99 Mechanical Ventilator 30 09/28/17 12:32 64 36 30 09/28/17 12:30 79 43 147/80 100 Mechanical Ventilator 38 09/28/17 12:30 35 09/28/17 12:26 30 09/28/17 12:00 64 20 164/83 100 Mechanical Ventilator 30 09/28/17 12:00 67 09/28/17 12:00 24 09/28/17 11:54 176/84 09/28/17 11:30 64 20 165/84 100 Mechanical Ventilator 30 Intake and Output 09/28/17 09/29/17 19:00 07:00 Intake Total 686.55 ml 483.75 ml Output Total 330 ml 515 ml Balance 356.55 ml -31.25 ml Free Water 200 ml IV Total 126.55 ml 123.75 ml Tube Feeding 360 ml 360 ml Output Urine Total 330 ml 415 ml Stool Total 100 ml Height (Feet): 5 Height (Inches): 8.00 Weight (Pounds): 215 General Appearance: no apparent distress Cardiovascular: tachycardia Respiratory/Chest: decreased breath sounds Abdomen: distended ROSE MARY REID September 29, 2017 11:24
[2017-09-29] MEDS: Acetaminophen 650mg/20.3ml NG PRN ×2 (11:28→21:54)
--- NOTE | 2017-09-29 13:47 | Infectious Diseases Prog Note ---
Assessment/Plan Assessment/Plan A: Sepsis/septic shock off pressors Bacteremia with Staph capitis/ contamination Pneumonia with MDR Acinetobacter & Proteus UTI with Proteus treated Respiratory failure ATN DM Anemia Elevated transaminase P: continue Zosyn, Minocycline & Colistin inhaler Family decide about code status soon Subjective ROS Limited/Unobtainable: Yes Respiratory: Reports: other - failed weaning Neurologic: Reports: confusion, other - on restraint Allergies: Coded Allergies: No Known Allergies (Verified , 01/02/09) Objective Vital Signs Last 24 Hour Vital Signs Date Time Temp Pulse Resp B/P (MAP) Pulse Ox O2 Delivery O2 Flow Rate FiO2 09/29/17 13:20 71 16 100 Mechanical Ventilator 30 09/29/17 13:18 66 16 30 09/29/17 13:10 66 16 100 Mechanical Ventilator 30 09/29/17 13:00 70 16 129/75 100 Mechanical Ventilator 30 09/29/17 12:00 98.4 70 16 126/70 100 Mechanical Ventilator 30 98.4 09/29/17 12:00 30 09/29/17 11:58 98.6 09/29/17 11:28 98.5 09/29/17 11:27 162/91 09/29/17 11:15 78 19 30 09/29/17 11:00 78 22 162/91 99 Mechanical Ventilator 30 09/29/17 10:00 79 21 162/90 99 Mechanical Ventilator 30 09/29/17 09:42 164/92 09/29/17 09:02 89 36 30 09/29/17 09:00 30 09/29/17 09:00 85 23 164/92 99 Mechanical Ventilator 30 09/29/17 08:30 99 09/29/17 08:00 79 23 157/87 99 Mechanical Ventilator 30 09/29/17 08:00 30 09/29/17 08:00 84 09/29/17 07:29 82 16 100 Mechanical Ventilator 30 09/29/17 07:27 82 16 30 09/29/17 07:10 84 16 100 Mechanical Ventilator 30 09/29/17 07:10 86 18 100 Mechanical Ventilator 30 09/29/17 07:00 98.5 72 22 147/81 100 Mechanical Ventilator 30 98.5 09/29/17 07:00 88 16 100 Mechanical Ventilator 30 09/29/17 06:00 79 27 162/99 99 Mechanical Ventilator 30 09/29/17 06:00 22 09/29/17 05:58 168/90 09/29/17 05:53 168/90 09/29/17 05:26 74 20 30 09/29/17 05:00 19 09/29/17 05:00 74 19 168/90 100 Mechanical Ventilator 30 09/29/17 04:00 30 09/29/17 04:00 99.0 72 17 165/77 100 Mechanical Ventilator 30 99.0 09/29/17 04:00 17 09/29/17 04:00 72 09/29/17 03:21 61 18 30 09/29/17 03:00 65 18 165/77 99 Mechanical Ventilator 30 09/29/17 03:00 18 09/29/17 02:00 65 18 152/71 99 Mechanical Ventilator 30 09/29/17 02:00 18 09/29/17 01:16 68 18 100 Mechanical Ventilator 30 09/29/17 01:04 71 17 100 Mechanical Ventilator 30 09/29/17 01:02 64 17 30 09/29/17 01:00 66 18 148/66 99 Mechanical Ventilator 30 09/29/17 01:00 18 09/29/17 00:11 159/73 09/29/17 00:00 17 09/29/17 00:00 99.0 64 17 159/73 99 Mechanical Ventilator 30 99.0 09/28/17 23:00 20 09/28/17 23:00 66 20 154/69 100 Mechanical Ventilator 30 09/28/17 22:47 71 16 30 09/28/17 22:00 65 16 100 Mechanical Ventilator 30 09/28/17 22:00 69 18 160/79 100 Mechanical Ventilator 30 09/28/17 22:00 18 09/28/17 21:52 69 16 100 Mechanical Ventilator 30 09/28/17 21:04 69 16 30 09/28/17 21:00 20 09/28/17 21:00 68 20 144/74 100 Mechanical Ventilator 30 09/28/17 20:00 98.7 68 21 147/64 100 Mechanical Ventilator 30 98.7 09/28/17 20:00 30 09/28/17 20:00 68 09/28/17 20:00 21 09/28/17 19:11 67 16 100 Mechanical Ventilator 30 09/28/17 19:02 68 16 100 Mechanical Ventilator 30 09/28/17 19:02 68 16 30 09/28/17 19:00 21 09/28/17 19:00 68 19 118/64 100 Mechanical Ventilator 30 09/28/17 18:00 73 22 121/62 100 Mechanical Ventilator 30 09/28/17 18:00 22 09/28/17 17:33 126/62 09/28/17 17:30 74 21 140/65 98 Mechanical Ventilator 30 09/28/17 17:00 98.6 69 22 126/62 98 Mechanical Ventilator 30 98.6 09/28/17 17:00 20 09/28/17 16:45 80 22 30 09/28/17 16:30 98.6 73 19 122/65 100 Mechanical Ventilator 30 98.6 09/28/17 16:00 30 09/28/17 16:00 98.6 70 18 128/67 100 Mechanical Ventilator 30 98.6 09/28/17 16:00 19 09/28/17 16:00 72 09/28/17 15:30 70 18 114/66 100 Mechanical Ventilator 30 09/28/17 15:00 71 20 132/68 99 Mechanical Ventilator 30 09/28/17 15:00 19 09/28/17 14:43 22 09/28/17 14:36 30 09/28/17 14:31 74 20 30 09/28/17 14:30 74 20 99/57 100 Mechanical Ventilator 30 09/28/17 14:00 78 50 135/70 100 Mechanical Ventilator 30 09/28/17 14:00 49 Height (Feet): 5 Height (Inches): 8.00 Weight (Pounds): 215 General Appearance: no acute distress HEENT: other - orally intubated Respiratory/Chest: lungs clear, other - on ventilator Cardiovascular: normal rate, other - PICC line Abdomen: soft, non tender, other - GT feeding Extremities: no edema Neurologic/Psychiatric: disoriented Current Medications Medications (Trade) Dose Ordered Sig/Keira Route PRN Reason Start Time Stop Time Status Last Admin Dose Admin Acetaminophen (Tylenol) 650 mg Q6H PRN NG Mild Pain/Temp > 100.5 09/22/17 20:00 10/22/17 19:59 09/29/17 11:28 Albuterol/ Ipratropium (Albuterol/ Ipratropium) 3 ml Q4H PRN HHN Shortness of Breath 09/29/17 10:00 10/04/17 09:59 Albuterol/ Ipratropium (Albuterol/ Ipratropium) 3 ml Q6HRT HHN 09/29/17 13:00 10/02/17 12:59 09/29/17 13:17 Chlorhexidine Gluconate (Michelle-Hex 2%) 1 applic DAILY@2000 TOPIC 09/27/17 20:00 10/27/17 19:59 09/28/17 20:00 Colistimethate Sodium (Colistin *inhalation use only*) 75 mg Q12HR@10,22 INH 09/27/17 22:00 10/04/17 21:59 09/29/17 07:24 Dextrose (Dextrose 50%) 25 ml STAT PRN IV Hypoglycemia 09/19/17 14:15 10/19/17 14:14 Dextrose (Dextrose 50%) 50 ml STAT PRN IV Hypoglycemia 09/19/17 14:15 10/19/17 14:14 Famotidine (Pepcid I.v.) 20 mg Q12HR IVP 09/27/17 21:00 10/27/17 20:59 09/29/17 09:41 Fentanyl Citrate 1000 mcg/Sodium Chloride 100 ml @ 1.25 mls/hr Q24H IV 09/28/17 00:00 10/05/17 00:00 09/28/17 00:07 Heparin Sodium (Porcine) (Heparin 5000 units/ml) 5,000 units EVERY 12 HOURS SUBQ 09/27/17 21:00 10/27/17 20:59 09/29/17 09:47 Hydralazine HCl (Apresoline) 10 mg Q6H PRN IV For High Blood Pressure 09/28/17 12:30 10/28/17 12:29 09/29/17 05:58 Insulin Aspart (NovoLOG) EVERY 6 HOURS SUBQ 09/22/17 00:00 10/19/17 16:29 09/29/17 11:30 Isosorbide Dinitrate (Isordil) 10 mg Q6HR NG 09/27/17 12:00 10/27/17 11:59 09/29/17 11:27 Loperamide HCl (Imodium) 2 mg Q6H PRN NG Diarrhea 09/25/17 11:30 10/25/17 11:29 Lorazepam (Ativan 2mg/ml 1ml) 1 mg Q4H PRN IV For Anxiety 09/24/17 10:30 10/01/17 10:29 09/27/17 17:13 Minocycline HCl (Minocin) 100 mg Q12HR ORAL 09/27/17 21:00 09/30/17 23:59 09/29/17 09:41 Nitroglycerin (Ntg) 1 patch Q24H TDERMAL 09/28/17 09:00 10/28/17 08:59 09/29/17 09:42 Piperacillin Sod/ Tazobactam Sod 2.25 gm/Dextrose 55 ml @ 110 mls/hr Q8HR IVPB 09/19/17 22:00 09/30/17 23:59 09/29/17 13:16 ANDRES SAVAGE September 29, 2017 13:47
--- NOTE | 2017-09-29 14:12 | Internal Med Progress Note ---
Subjective Date of Service: September 29, 2017 Physician Name Yarely Brewsterman Attending Physician Cesario Brewster Past Medical History no change Past Surgical History no change Current Medications Medications (Trade) Dose Ordered Sig/Keira Route PRN Reason Start Time Stop Time Status Last Admin Dose Admin Acetaminophen (Tylenol) 650 mg Q6H PRN NG Mild Pain/Temp > 100.5 09/22/17 20:00 10/22/17 19:59 09/29/17 11:28 Albuterol/ Ipratropium (Albuterol/ Ipratropium) 3 ml Q4H PRN HHN Shortness of Breath 09/29/17 10:00 10/04/17 09:59 Albuterol/ Ipratropium (Albuterol/ Ipratropium) 3 ml Q6HRT HHN 09/29/17 13:00 10/02/17 12:59 09/29/17 13:17 Chlorhexidine Gluconate (Michelle-Hex 2%) 1 applic DAILY@2000 TOPIC 09/27/17 20:00 10/27/17 19:59 09/28/17 20:00 Colistimethate Sodium (Colistin *inhalation use only*) 75 mg Q12HR@10,22 INH 09/27/17 22:00 10/04/17 21:59 09/29/17 07:24 Dextrose (Dextrose 50%) 25 ml STAT PRN IV Hypoglycemia 09/19/17 14:15 10/19/17 14:14 Dextrose (Dextrose 50%) 50 ml STAT PRN IV Hypoglycemia 09/19/17 14:15 10/19/17 14:14 Famotidine (Pepcid I.v.) 20 mg Q12HR IVP 09/27/17 21:00 10/27/17 20:59 09/29/17 09:41 Fentanyl Citrate 1000 mcg/Sodium Chloride 100 ml @ 1.25 mls/hr Q24H IV 09/28/17 00:00 10/05/17 00:00 09/28/17 00:07 Heparin Sodium (Porcine) (Heparin 5000 units/ml) 5,000 units EVERY 12 HOURS SUBQ 09/27/17 21:00 10/27/17 20:59 09/29/17 09:47 Hydralazine HCl (Apresoline) 10 mg Q6H PRN IV For High Blood Pressure 09/28/17 12:30 10/28/17 12:29 09/29/17 05:58 Insulin Aspart (NovoLOG) EVERY 6 HOURS SUBQ 09/22/17 00:00 10/19/17 16:29 09/29/17 11:30 Isosorbide Dinitrate (Isordil) 10 mg Q6HR NG 09/27/17 12:00 10/27/17 11:59 09/29/17 11:27 Loperamide HCl (Imodium) 2 mg Q6H PRN NG Diarrhea 09/25/17 11:30 10/25/17 11:29 Lorazepam (Ativan 2mg/ml 1ml) 1 mg Q4H PRN IV For Anxiety 09/24/17 10:30 10/01/17 10:29 09/27/17 17:13 Minocycline HCl (Minocin) 100 mg Q12HR ORAL 09/27/17 21:00 09/30/17 23:59 09/29/17 09:41 Nitroglycerin (Ntg) 1 patch Q24H TDERMAL 09/28/17 09:00 10/28/17 08:59 09/29/17 09:42 Piperacillin Sod/ Tazobactam Sod 2.25 gm/Dextrose 55 ml @ 110 mls/hr Q8HR IVPB 09/19/17 22:00 09/30/17 23:59 09/29/17 13:16 Allergies: Coded Allergies: No Known Allergies (Verified , 01/02/09) ROS Limited/Unobtainable: Yes - intubated Subjective remains intubated, off pressor Objective Last Vital Signs Date Time Temp Pulse Resp B/P (MAP) Pulse Ox O2 Delivery O2 Flow Rate FiO2 09/29/17 13:20 71 16 100 Mechanical Ventilator 30 09/29/17 13:00 129/75 09/29/17 12:00 98.4 98.4 09/23/17 22:11 50.0 General Appearance: no apparent distress Cardiovascular: normal rate, regular rhythm, systolic murmur Respiratory/Chest: no respiratory distress, rhonchi - left, other - intubated orally Abdomen: non tender, soft, no mass, other - PEG Genitourinary/Rectal: other - elder Extremities: non-tender Edema: mild edema Neurologic: other - sedated Skin: warm/dry Intake and Output 09/28/17 09/29/17 19:00 07:00 Intake Total 686.55 ml 483.75 ml Output Total 330 ml 515 ml Balance 356.55 ml -31.25 ml Free Water 200 ml IV Total 126.55 ml 123.75 ml Tube Feeding 360 ml 360 ml Output Urine Total 330 ml 415 ml Stool Total 100 ml Assessment/Plan Status: stable, unchanged Assessment/Plan MPRESSION: 1. Acute respiratory failure, intubated. 2. MDR Pneumonia likely aspiration pneumonia versus healthcare associated pneumonia. 3. Severe dehydration. 4. Hypernatremia. 5. Hyperkalemia. 6. Acute on chronic renal failure stage 3. 7. Uremia due to prerenal. 8. Transaminitis. 9. Elevated lipase. 10. Severe protein-calorie malnutrition. 11. History of chronic CVA with right hemiparesis. 13. History of organic brain disease. 14. History of advanced dementia. 15. Status post gastrostomy tube placement. 16. History of neurogenic bladder/chronic indwelling Elder catheter. 17. Hyperlipidemia. 18. Coronary artery disease. 19. poor venous access PLAN: intensive care unit. daily vent weaning attempt---> PS trial may need trach if continue to fail weaning. d/w Dr pablo Wood replete intravenous fluid. per renal IV lasix as needed lyte replete Pulmonary nebulizer. off pressor for now PRBC tx as needed DVT and GI prophylaxis. IV abx IV Fe Continue with the Elder catheter. Aspiration precaution. electrolytes replete as indicated. enteral feeding as tolerated FULL CODE d/w social work job titles. over 35 min spent in critical care in ICU d/w clinical services consultant-Dr Pablo Brewster MD [phone] CESARIO BREWSTER September 29, 2017 14:12
--- NOTE | 2017-09-29 14:51 | Diagnostic Imaging Report ---
Indication: Dyspnea Technique: XRAY Chest 1v Comparison: 09/25/2017 Findings: Interval left arm PICC placement. Endotracheal tube unchanged. Heart size and mediastinal contours are stable. There is persistent and slightly increased interstitial opacification/edema. There is bibasilar atelectasis/consolidation. No pneumothorax. Impression: Interval worsening of aeration with increased interstitial and patchy opacities on the right. Increased left basilar atelectasis/consolidation.
--- NOTE | 2017-09-29 15:28 | GI Progress Note ---
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 Taveras. Assessment/Plan Assessment - Anemia - abnormal LFT - Resp failure - Renal failure - Sepsis - CVA / (R) taylor - dysphagia / GT - diarrhea Recommendations - H2B BID - dc reglan given renal insufficiency - Imodium prn - TF - check abd u/s - check OB, fu hep panel - transufse PRN - abx - s/p EGD/colon 07/2017 at [facility] (HH,polyps, diverticulosis) - fu labs The patient was seen and examined at bedside and all new and available data was reviewed in the patients chart. I agree with the above findings, impression and plan. (Patient seen earlier today. Signature stamp does not reflect patient encounter time.). - Villa Taveras MD Subjective Subjective limited Objective Last 24 Hour Vital Signs Date Time Temp Pulse Resp B/P (MAP) Pulse Ox O2 Delivery O2 Flow Rate FiO2 09/29/17 14:00 64 18 142/74 100 Mechanical Ventilator 30 09/29/17 13:20 71 16 100 Mechanical Ventilator 30 09/29/17 13:18 66 16 30 09/29/17 13:10 66 16 100 Mechanical Ventilator 30 09/29/17 13:00 70 16 129/75 100 Mechanical Ventilator 30 09/29/17 12:00 98.4 70 16 126/70 100 Mechanical Ventilator 30 98.4 09/29/17 12:00 69 09/29/17 12:00 30 09/29/17 11:58 98.6 09/29/17 11:28 98.5 09/29/17 11:27 162/91 09/29/17 11:15 78 19 30 09/29/17 11:00 78 22 162/91 99 Mechanical Ventilator 30 09/29/17 10:00 79 21 162/90 99 Mechanical Ventilator 30 09/29/17 09:42 164/92 09/29/17 09:02 89 36 30 09/29/17 09:00 30 09/29/17 09:00 85 23 164/92 99 Mechanical Ventilator 30 09/29/17 08:30 99 09/29/17 08:00 79 23 157/87 99 Mechanical Ventilator 30 09/29/17 08:00 30 09/29/17 08:00 84 09/29/17 07:29 82 16 100 Mechanical Ventilator 30 09/29/17 07:27 82 16 30 09/29/17 07:10 84 16 100 Mechanical Ventilator 30 09/29/17 07:10 86 18 100 Mechanical Ventilator 30 09/29/17 07:00 98.5 72 22 147/81 100 Mechanical Ventilator 30 98.5 09/29/17 07:00 88 16 100 Mechanical Ventilator 30 09/29/17 06:00 79 27 162/99 99 Mechanical Ventilator 30 09/29/17 06:00 22 09/29/17 05:58 168/90 09/29/17 05:53 168/90 09/29/17 05:26 74 20 30 09/29/17 05:00 19 09/29/17 05:00 74 19 168/90 100 Mechanical Ventilator 30 09/29/17 04:00 30 09/29/17 04:00 99.0 72 17 165/77 100 Mechanical Ventilator 30 99.0 09/29/17 04:00 17 09/29/17 04:00 72 09/29/17 03:21 61 18 30 09/29/17 03:00 65 18 165/77 99 Mechanical Ventilator 30 09/29/17 03:00 18 09/29/17 02:00 65 18 152/71 99 Mechanical Ventilator 30 09/29/17 02:00 18 09/29/17 01:16 68 18 100 Mechanical Ventilator 30 09/29/17 01:04 71 17 100 Mechanical Ventilator 30 09/29/17 01:02 64 17 30 09/29/17 01:00 66 18 148/66 99 Mechanical Ventilator 30 09/29/17 01:00 18 09/29/17 00:11 159/73 09/29/17 00:00 17 09/29/17 00:00 99.0 64 17 159/73 99 Mechanical Ventilator 30 99.0 09/28/17 23:00 20 09/28/17 23:00 66 20 154/69 100 Mechanical Ventilator 30 09/28/17 22:47 71 16 30 09/28/17 22:00 65 16 100 Mechanical Ventilator 30 09/28/17 22:00 69 18 160/79 100 Mechanical Ventilator 30 09/28/17 22:00 18 09/28/17 21:52 69 16 100 Mechanical Ventilator 30 09/28/17 21:04 69 16 30 09/28/17 21:00 20 09/28/17 21:00 68 20 144/74 100 Mechanical Ventilator 30 09/28/17 20:00 98.7 68 21 147/64 100 Mechanical Ventilator 30 98.7 09/28/17 20:00 30 09/28/17 20:00 68 09/28/17 20:00 21 09/28/17 19:11 67 16 100 Mechanical Ventilator 30 09/28/17 19:02 68 16 100 Mechanical Ventilator 30 09/28/17 19:02 68 16 30 09/28/17 19:00 21 09/28/17 19:00 68 19 118/64 100 Mechanical Ventilator 30 09/28/17 18:00 73 22 121/62 100 Mechanical Ventilator 30 09/28/17 18:00 22 09/28/17 17:33 126/62 09/28/17 17:30 74 21 140/65 98 Mechanical Ventilator 30 09/28/17 17:00 98.6 69 22 126/62 98 Mechanical Ventilator 30 98.6 09/28/17 17:00 20 09/28/17 16:45 80 22 30 09/28/17 16:30 98.6 73 19 122/65 100 Mechanical Ventilator 30 98.6 09/28/17 16:00 30 09/28/17 16:00 98.6 70 18 128/67 100 Mechanical Ventilator 30 98.6 09/28/17 16:00 19 09/28/17 16:00 72 09/28/17 15:30 70 18 114/66 100 Mechanical Ventilator 30 Intake and Output 09/28/17 09/29/17 19:00 07:00 Intake Total 686.55 ml 483.75 ml Output Total 330 ml 515 ml Balance 356.55 ml -31.25 ml Free Water 200 ml IV Total 126.55 ml 123.75 ml Tube Feeding 360 ml 360 ml Output Urine Total 330 ml 415 ml Stool Total 100 ml Height (Feet): 5 Height (Inches): 8.00 Weight (Pounds): 215 General Appearance: no apparent distress Cardiovascular: normal rate Respiratory/Chest: normal breath sounds, no respiratory distress, other - mech vent Abdominal Exam: normal bowel sounds, non tender, soft, GT site - c/d/i Extremities: normal range of motion, non-tender Ramandeep Francois NP September 29, 2017 15:28
[2017-09-29] MEDS ORDERED: Tubing IV Secondary IV ONE (17:04)
[2017-09-29] MEDS: Dyna-Hex 2% Top Sol 2oz TOPIC SCH (19:43)
[2017-09-29] MEDS: fentaNYL Citrate 1000 MCG in NS 100ml IV SCH ×3 (23:52)
[2017-09-30] VITALS (41 sets, daily range): BP systolic 141–185; BP diastolic 62–93
[2017-09-30] MEDS: Albuterol/Ipratropium 3ml neb HHN SCH ×4 (01:13→20:51)
[2017-09-30] MEDS: NovoLOG Insulin Flexpen SUBQ SCH ×4 (06:00→23:56)
[2017-09-30] MEDS: Piperacillin/Tazobactam 2.25 GM in D5W 55 ML IVPB SCH ×3 (06:01→21:31)
[2017-09-30 06:10] LABS: BASOPHILS % (AUTO) 0.2 % (0.0-2.0); HEMATOCRIT 30.1 % (42.0-52.0); HEMOGLOBIN 9.2 G/DL (14.2-18.0); LYMPHOCYTES % (AUTO) 24.7 % (20.0-45.0); MEAN CORPUSCULAR VOLUME 85 FL (80-99); MONOCYTES % (AUTO) 5.1 % (1.0-10.0); PLATELET COUNT 205 K/UL (150-450); RED BLOOD COUNT 3.54 M/UL (4.70-6.10); RED CELL DISTRIBUTION WIDTH 17.2 % (11.6-14.8); WHITE BLOOD COUNT 11.3 K/UL (4.8-10.8)
[2017-09-30 06:45] LABS: ALANINE AMINOTRANSFERASE 51 U/L (12-78); ALBUMIN 1.7 G/DL (3.4-5.0); ALBUMIN/GLOBULIN RATIO 0.3 (1.0-2.7); ALKALINE PHOSPHATASE 93 U/L (46-116); ANION GAP 5 mmol/L (5-15); ASPARTATE AMINO TRANSFERASE 33 U/L (15-37); BILIRUBIN,TOTAL 0.3 MG/DL (0.2-1.0); BLOOD UREA NITROGEN 37 mg/dL (7-18); CALCIUM 9.3 MG/DL (8.5-10.1); CARBON DIOXIDE 33 MMOL/L (21-32); CHLORIDE 110 MMOL/L (98-107); CREATININE 2.2 MG/DL (0.55-1.30); GAMMA GLUTAMYL TRANSPEPTIDASE 42 U/L (5-85); PHOSPHORUS 3.5 MG/DL (2.5-4.9); POTASSIUM 3.6 MMOL/L (3.5-5.1); SODIUM 148 MMOL/L (136-145)
[2017-09-30] MEDS: Colistin for inhalation INH SCH ×2 (07:13→23:27)
[2017-09-30] MEDS: Nitroglycerin Patch 0.4mg TDERMAL SCH (09:31)
[2017-09-30] MEDS: Minocycline HCl 50mg cap ORAL SCH ×2 (09:32→21:26)
[2017-09-30] MEDS: Heparin 5000 units/ml inj SUBQ SCH ×2 (09:33→21:27)
--- NOTE | 2017-09-30 11:16 | Infectious Diseases Prog Note ---
Assessment/Plan Assessment/Plan A: Sepsis/septic shock off pressors Bacteremia with Staph capitis/ contamination Pneumonia with MDR Acinetobacter & Proteus UTI with Proteus treated Respiratory failure ATN DM Anemia Elevated transaminase P: continue Zosyn X 1 day, Continue Minocycline & Colistin inhaler Family decide about code status soon Subjective ROS Limited/Unobtainable: Yes Allergies: Coded Allergies: No Known Allergies (Verified , 01/02/09) Objective Vital Signs Last 24 Hour Vital Signs Date Time Temp Pulse Resp B/P (MAP) Pulse Ox O2 Delivery O2 Flow Rate FiO2 09/30/17 10:37 65 31 30 09/30/17 10:00 63 26 163/82 100 Mechanical Ventilator 30 09/30/17 09:31 159/79 09/30/17 09:30 66 28 159/79 99 Mechanical Ventilator 30 09/30/17 09:07 66 33 30 09/30/17 09:05 99 09/30/17 09:00 64 28 169/67 100 Mechanical Ventilator 30 09/30/17 08:30 62 20 158/76 100 Mechanical Ventilator 30 09/30/17 08:00 30 09/30/17 08:00 98.8 63 19 159/79 99 Mechanical Ventilator 30 98.8 09/30/17 08:00 65 09/30/17 07:30 63 23 147/68 100 Mechanical Ventilator 30 09/30/17 07:20 66 16 100 Mechanical Ventilator 30 09/30/17 07:18 66 16 30 09/30/17 07:10 66 16 100 Mechanical Ventilator 30 09/30/17 07:09 67 16 100 Mechanical Ventilator 30 09/30/17 07:00 66 16 149/65 100 Mechanical Ventilator 30 09/30/17 07:00 18 09/30/17 07:00 68 16 100 Mechanical Ventilator 30 09/30/17 06:02 148/69 09/30/17 06:00 65 27 148/69 100 Mechanical Ventilator 30 09/30/17 06:00 18 09/30/17 05:26 66 20 30 09/30/17 05:20 181/80 09/30/17 05:00 61 19 162/78 100 Mechanical Ventilator 30 09/30/17 05:00 19 09/30/17 04:33 67 09/30/17 04:00 30 09/30/17 04:00 98.0 60 20 162/78 100 Mechanical Ventilator 30 98.0 09/30/17 04:00 20 09/30/17 03:00 21 09/30/17 03:00 71 21 162/78 100 Mechanical Ventilator 30 09/30/17 02:48 62 21 30 09/30/17 02:00 58 18 162/78 100 Mechanical Ventilator 30 09/30/17 02:00 18 09/30/17 01:29 63 16 100 Mechanical Ventilator 30 09/30/17 01:14 60 16 30 09/30/17 01:14 60 16 100 Mechanical Ventilator 30 09/30/17 01:00 18 09/30/17 01:00 59 18 162/78 100 Mechanical Ventilator 30 09/30/17 00:00 30 09/30/17 00:00 98.7 60 19 148/71 99 Mechanical Ventilator 30 98.7 09/30/17 00:00 19 09/29/17 23:52 18 09/29/17 23:41 155/77 09/29/17 23:23 58 09/29/17 23:00 61 17 155/77 100 Mechanical Ventilator 30 09/29/17 23:00 18 09/29/17 22:53 61 16 100 Mechanical Ventilator 30 09/29/17 22:48 61 18 30 09/29/17 22:48 61 20 Mechanical Ventilator 30 09/29/17 22:46 61 18 100 Mechanical Ventilator 30 09/29/17 22:00 63 20 161/75 99 Mechanical Ventilator 30 09/29/17 22:00 20 09/29/17 21:49 61 17 30 09/29/17 21:00 64 19 169/87 99 Mechanical Ventilator 30 09/29/17 21:00 19 09/29/17 20:00 30 09/29/17 20:00 19 09/29/17 20:00 98.6 65 16 154/78 99 Mechanical Ventilator 30 98.6 09/29/17 19:46 62 09/29/17 19:11 66 16 100 Mechanical Ventilator 30 09/29/17 19:00 63 16 30 09/29/17 19:00 17 09/29/17 19:00 62 16 146/77 100 Mechanical Ventilator 30 09/29/17 18:59 63 16 100 Mechanical Ventilator 30 09/29/17 18:00 64 16 142/75 100 Mechanical Ventilator 30 09/29/17 18:00 18 5/14/18 17:50 159/86 09/29/17 17:01 67 23 30 09/29/17 17:00 18 09/29/17 17:00 70 18 161/86 100 Mechanical Ventilator 30 09/29/17 16:00 30 09/29/17 16:00 16 09/29/17 16:00 98.2 65 18 115/66 100 Mechanical Ventilator 30 98.2 09/29/17 16:00 65 09/29/17 15:29 66 22 30 09/29/17 15:00 18 09/29/17 15:00 64 19 128/63 100 Mechanical Ventilator 30 09/29/17 14:00 64 18 142/74 100 Mechanical Ventilator 30 09/29/17 14:00 18 09/29/17 13:20 71 16 100 Mechanical Ventilator 30 09/29/17 13:18 66 16 30 09/29/17 13:16 17 09/29/17 13:10 66 16 100 Mechanical Ventilator 30 09/29/17 13:00 70 16 129/75 100 Mechanical Ventilator 30 09/29/17 12:00 98.4 70 16 126/70 100 Mechanical Ventilator 30 98.4 09/29/17 12:00 69 09/29/17 12:00 19 09/29/17 12:00 30 09/29/17 11:58 98.6 09/29/17 11:28 98.5 09/29/17 11:27 162/91 09/29/17 11:15 78 19 30 Height (Feet): 5 Height (Inches): 8.00 Weight (Pounds): 204 General Appearance: no acute distress HEENT: other - orally intubated Respiratory/Chest: lungs clear, other - on ventilator Cardiovascular: normal rate Abdomen: soft, non tender, other - GT & rectal tube Extremities: no edema Neurologic/Psychiatric: alert, disoriented Laboratory Tests Test 09/30/17 05:00 White Blood Count 11.3 K/UL (4.8-10.8) H Red Blood Count 3.54 M/UL (4.70-6.10) L Hemoglobin 9.2 G/DL (14.2-18.0) L Hematocrit 30.1 % (42.0-52.0) L Mean Corpuscular Volume 85 FL (80-99) Mean Corpuscular Hemoglobin 26.0 PG (27.0-31.0) L Mean Corpuscular Hemoglobin Concent 30.7 G/DL (32.0-36.0) L Red Cell Distribution Width 17.2 % (11.6-14.8) H Platelet Count 205 K/UL (150-450) Mean Platelet Volume 6.8 FL (6.5-10.1) Neutrophils (%) (Auto) 60.0 % (45.0-75.0) Lymphocytes (%) (Auto) 24.7 % (20.0-45.0) Monocytes (%) (Auto) 5.1 % (1.0-10.0) Eosinophils (%) (Auto) 10.0 % (0.0-3.0) H Basophils (%) (Auto) 0.2 % (0.0-2.0) Sodium Level 148 MMOL/L (136-145) H Potassium Level 3.6 MMOL/L (3.5-5.1) Chloride Level 110 MMOL/L (98-107) H Carbon Dioxide Level 33 MMOL/L (21-32) H Anion Gap 5 mmol/L (5-15) Blood Urea Nitrogen 37 mg/dL (7-18) H Creatinine 2.2 MG/DL (0.55-1.30) H Estimat Glomerular Filtration Rate mL/min (>60) Glucose Level 76 MG/DL (74-106) Calcium Level 9.3 MG/DL (8.5-10.1) Phosphorus Level 3.5 MG/DL (2.5-4.9) Magnesium Level 2.1 MG/DL (1.8-2.4) Total Bilirubin 0.3 MG/DL (0.2-1.0) Gamma Glutamyl Transpeptidase 42 U/L (5-85) Aspartate Amino Transf (AST/SGOT) 33 U/L (15-37) Alanine Aminotransferase (ALT/SGPT) 51 U/L (12-78) Alkaline Phosphatase 93 U/L (46-116) C-Reactive Protein, Quantitative 9.6 mg/dL (0.00-0.90) H Pro-B-Type Natriuretic Peptide 5417 pg/mL (0-125) H Total Protein 7.9 G/DL (6.4-8.2) Albumin 1.7 G/DL (3.4-5.0) L Globulin 6.2 g/dL Albumin/Globulin Ratio 0.3 (1.0-2.7) L Current Medications Medications (Trade) Dose Ordered Sig/Keira Route PRN Reason Start Time Stop Time Status Last Admin Dose Admin Acetaminophen (Tylenol) 650 mg Q6H PRN NG Mild Pain/Temp > 100.5 09/22/17 20:00 10/22/17 19:59 09/29/17 21:54 Albuterol/ Ipratropium (Albuterol/ Ipratropium) 3 ml Q4H PRN HHN Shortness of Breath 09/29/17 10:00 10/04/17 09:59 Albuterol/ Ipratropium (Albuterol/ Ipratropium) 3 ml Q6HRT HHN 09/29/17 13:00 10/02/17 12:59 09/30/17 07:12 Chlorhexidine Gluconate (Michelle-Hex 2%) 1 applic DAILY@2000 TOPIC 09/27/17 20:00 10/27/17 19:59 09/29/17 19:43 Colistimethate Sodium (Colistin *inhalation use only*) 75 mg Q12HR@10,22 INH 09/27/17 22:00 10/04/17 21:59 09/30/17 07:13 Dextrose (Dextrose 50%) 25 ml STAT PRN IV Hypoglycemia 09/19/17 14:15 10/19/17 14:14 Dextrose (Dextrose 50%) 50 ml STAT PRN IV Hypoglycemia 09/19/17 14:15 10/19/17 14:14 Famotidine (Pepcid I.v.) 20 mg Q12HR IVP 09/27/17 21:00 10/27/17 20:59 09/30/17 09:32 Fentanyl Citrate 1000 mcg/Sodium Chloride 100 ml @ 1.25 mls/hr Q24H IV 09/28/17 00:00 10/05/17 00:00 09/29/17 23:52 Heparin Sodium (Porcine) (Heparin 5000 units/ml) 5,000 units EVERY 12 HOURS SUBQ 09/27/17 21:00 10/27/17 20:59 09/30/17 09:33 Hydralazine HCl (Apresoline) 10 mg Q6H PRN IV For High Blood Pressure 09/28/17 12:30 10/28/17 12:29 09/30/17 05:20 Insulin Aspart (NovoLOG) EVERY 6 HOURS SUBQ 09/22/17 00:00 10/19/17 16:29 09/29/17 23:43 Isosorbide Dinitrate (Isordil) 10 mg Q6HR NG 09/27/17 12:00 10/27/17 11:59 09/30/17 06:02 Loperamide HCl (Imodium) 2 mg Q6H PRN NG Diarrhea 09/25/17 11:30 10/25/17 11:29 Lorazepam (Ativan 2mg/ml 1ml) 1 mg Q4H PRN IV For Anxiety 09/24/17 10:30 10/01/17 10:29 09/27/17 17:13 Minocycline HCl (Minocin) 100 mg Q12HR ORAL 09/27/17 21:00 09/30/17 23:59 09/30/17 09:32 Nitroglycerin (Ntg) 1 patch Q24H TDERMAL 09/28/17 09:00 10/28/17 08:59 09/30/17 09:31 Piperacillin Sod/ Tazobactam Sod 2.25 gm/Dextrose 55 ml @ 110 mls/hr Q8HR IVPB 09/19/17 22:00 09/30/17 23:59 09/30/17 06:01 ANDRES SAVAGE September 30, 2017 11:16
--- NOTE | 2017-09-30 12:41 | Nephrology Progress Note ---
Assessment/Plan Problem List: (1) ATN (acute tubular necrosis) (2) Septic shock (3) Respiratory failure (4) Diabetes mellitus Assessment Acute Renal failure- Cr lower ? Underlying CKD Component of dehydration, Pre renal state and Hypernatremia Acute respiratory failure, Aspiartion Pneumonia, UTI Septic Shock H/O Multiple Strokes Anemia Elevated Troponin Hyperglycemia PEG Plan transfused add isordil Pulm support Hydrate- avoid nephrotoxics Monitor renal parameters Hemodynamic support IV iron Nitro and asa GT feeding Per orders Subjective ROS Limited/Unobtainable: Yes Objective Objective Last 24 Hour Vital Signs Date Time Temp Pulse Resp B/P (MAP) Pulse Ox O2 Delivery O2 Flow Rate FiO2 09/30/17 12:30 66 16 153/86 99 Mechanical Ventilator 30 09/30/17 12:15 170/77 09/30/17 12:00 65 09/30/17 12:00 98.6 64 23 170/77 99 Mechanical Ventilator 30 98.6 09/30/17 12:00 30 09/30/17 11:30 64 32 150/76 99 Mechanical Ventilator 30 09/30/17 11:00 65 29 150/70 99 Mechanical Ventilator 30 09/30/17 10:37 65 31 30 09/30/17 10:30 65 26 170/77 100 Mechanical Ventilator 30 09/30/17 10:00 63 26 163/82 100 Mechanical Ventilator 30 09/30/17 09:31 159/79 09/30/17 09:30 66 28 159/79 99 Mechanical Ventilator 30 09/30/17 09:30 28 09/30/17 09:07 66 33 30 09/30/17 09:05 99 09/30/17 09:00 28 09/30/17 09:00 64 28 169/67 100 Mechanical Ventilator 30 09/30/17 08:30 62 20 158/76 100 Mechanical Ventilator 30 09/30/17 08:00 30 09/30/17 08:00 98.8 63 19 159/79 99 Mechanical Ventilator 30 98.8 09/30/17 08:00 65 09/30/17 08:00 22 09/30/17 07:30 63 23 147/68 100 Mechanical Ventilator 30 09/30/17 07:20 66 16 100 Mechanical Ventilator 30 09/30/17 07:18 66 16 30 09/30/17 07:10 66 16 100 Mechanical Ventilator 30 09/30/17 07:09 67 16 100 Mechanical Ventilator 30 09/30/17 07:00 66 16 149/65 100 Mechanical Ventilator 30 09/30/17 07:00 18 09/30/17 07:00 68 16 100 Mechanical Ventilator 30 09/30/17 06:02 148/69 09/30/17 06:00 65 27 148/69 100 Mechanical Ventilator 30 09/30/17 06:00 18 09/30/17 05:26 66 20 30 09/30/17 05:20 181/80 09/30/17 05:00 61 19 162/78 100 Mechanical Ventilator 30 09/30/17 05:00 19 09/30/17 04:33 67 09/30/17 04:00 30 09/30/17 04:00 98.0 60 20 162/78 100 Mechanical Ventilator 30 98.0 09/30/17 04:00 20 09/30/17 03:00 21 09/30/17 03:00 71 21 162/78 100 Mechanical Ventilator 30 09/30/17 02:48 62 21 30 09/30/17 02:00 58 18 162/78 100 Mechanical Ventilator 30 09/30/17 02:00 18 09/30/17 01:29 63 16 100 Mechanical Ventilator 30 09/30/17 01:14 60 16 30 09/30/17 01:14 60 16 100 Mechanical Ventilator 30 09/30/17 01:00 18 09/30/17 01:00 59 18 162/78 100 Mechanical Ventilator 30 09/30/17 00:00 30 09/30/17 00:00 98.7 60 19 148/71 99 Mechanical Ventilator 30 98.7 09/30/17 00:00 19 09/29/17 23:52 18 09/29/17 23:41 155/77 09/29/17 23:23 58 09/29/17 23:00 61 17 155/77 100 Mechanical Ventilator 30 09/29/17 23:00 18 09/29/17 22:53 61 16 100 Mechanical Ventilator 30 09/29/17 22:48 61 18 30 09/29/17 22:48 61 20 Mechanical Ventilator 30 09/29/17 22:46 61 18 100 Mechanical Ventilator 30 09/29/17 22:00 63 20 161/75 99 Mechanical Ventilator 30 09/29/17 22:00 20 09/29/17 21:49 61 17 30 09/29/17 21:00 64 19 169/87 99 Mechanical Ventilator 30 09/29/17 21:00 19 09/29/17 20:00 30 09/29/17 20:00 19 09/29/17 20:00 98.6 65 16 154/78 99 Mechanical Ventilator 30 98.6 09/29/17 19:46 62 09/29/17 19:11 66 16 100 Mechanical Ventilator 30 09/29/17 19:00 63 16 30 09/29/17 19:00 17 09/29/17 19:00 62 16 146/77 100 Mechanical Ventilator 30 09/29/17 18:59 63 16 100 Mechanical Ventilator 30 09/29/17 18:00 64 16 142/75 100 Mechanical Ventilator 30 09/29/17 18:00 18 09/29/17 17:50 159/86 09/29/17 17:01 67 23 30 09/29/17 17:00 18 09/29/17 17:00 70 18 161/86 100 Mechanical Ventilator 30 09/29/17 16:00 30 09/29/17 16:00 16 09/29/17 16:00 98.2 65 18 115/66 100 Mechanical Ventilator 30 98.2 09/29/17 16:00 65 09/29/17 15:29 66 22 30 09/29/17 15:00 18 09/29/17 15:00 64 19 128/63 100 Mechanical Ventilator 30 09/29/17 14:00 64 18 142/74 100 Mechanical Ventilator 30 09/29/17 14:00 18 09/29/17 13:20 71 16 100 Mechanical Ventilator 30 09/29/17 13:18 66 16 30 09/29/17 13:16 17 09/29/17 13:10 66 16 100 Mechanical Ventilator 30 09/29/17 13:00 70 16 129/75 100 Mechanical Ventilator 30 Intake and Output 09/29/17 09/30/17 19:00 07:00 Intake Total 370.00 ml 765.00 ml Output Total 540 ml 730 ml Balance -170.00 ml 35.00 ml IV Total 70.00 ml 125.00 ml Tube Feeding 300 ml 360 ml Other 280 ml Output Urine Total 540 ml 630 ml Stool Total 100 ml # Bowel Movements 50 Laboratory Tests 09/30/17 05:00: White Blood Count 11.3H, Red Blood Count 3.54L, Hemoglobin 9.2L, Hematocrit 30.1L, Mean Corpuscular Volume 85, Mean Corpuscular Hemoglobin 26.0L, Mean Corpuscular Hemoglobin Concent 30.7L, Red Cell Distribution Width 17.2H, Platelet Count 205, Mean Platelet Volume 6.8, Neutrophils (%) (Auto) 60.0, Lymphocytes (%) (Auto) 24.7, Monocytes (%) (Auto) 5.1, Eosinophils (%) (Auto) 10.0H, Basophils (%) (Auto) 0.2, Sodium Level 148H, Potassium Level 3.6, Chloride Level 110H, Carbon Dioxide Level 33H, Anion Gap 5, Blood Urea Nitrogen 37H, Creatinine 2.2H, Estimat Glomerular Filtration Rate , Glucose Level 76, Calcium Level 9.3, Phosphorus Level 3.5, Magnesium Level 2.1, Total Bilirubin 0.3, Gamma Glutamyl Transpeptidase 42, Aspartate Amino Transf (AST/SGOT) 33, Alanine Aminotransferase (ALT/SGPT) 51, Alkaline Phosphatase 93, C-Reactive Protein, Quantitative 9.6H, Pro-B-Type Natriuretic Peptide 5417H, Total Protein 7.9, Albumin 1.7L, Globulin 6.2, Albumin/Globulin Ratio 0.3L Height (Feet): 5 Height (Inches): 8.00 Weight (Pounds): 204 General Appearance: no apparent distress Cardiovascular: normal rate Respiratory/Chest: decreased breath sounds Abdomen: distended ROSE MARY REID September 30, 2017 12:41
--- NOTE | 2017-09-30 16:03 | Internal Med Progress Note ---
Subjective Date of Service: September 30, 2017 Physician Name Yarely Chaconman Attending Physician Cesario Chacon Past Medical History no change Past Surgical History no change Current Medications Medications (Trade) Dose Ordered Sig/Keira Route PRN Reason Start Time Stop Time Status Last Admin Dose Admin Acetaminophen (Tylenol) 650 mg Q6H PRN NG Mild Pain/Temp > 100.5 09/22/17 20:00 10/22/17 19:59 09/29/17 21:54 Albuterol/ Ipratropium (Albuterol/ Ipratropium) 3 ml Q4H PRN HHN Shortness of Breath 09/29/17 10:00 10/04/17 09:59 Albuterol/ Ipratropium (Albuterol/ Ipratropium) 3 ml Q6HRT HHN 09/29/17 13:00 10/02/17 12:59 09/30/17 13:20 Chlorhexidine Gluconate (Michelle-Hex 2%) 1 applic DAILY@2000 TOPIC 09/27/17 20:00 10/27/17 19:59 09/29/17 19:43 Colistimethate Sodium (Colistin *inhalation use only*) 75 mg Q12HR@10,22 INH 09/27/17 22:00 10/04/17 21:59 09/30/17 07:13 Dextrose (Dextrose 50%) 25 ml STAT PRN IV Hypoglycemia 09/19/17 14:15 10/19/17 14:14 Dextrose (Dextrose 50%) 50 ml STAT PRN IV Hypoglycemia 09/19/17 14:15 10/19/17 14:14 Famotidine (Pepcid I.v.) 20 mg Q12HR IVP 09/27/17 21:00 10/27/17 20:59 09/30/17 09:32 Fentanyl Citrate 1000 mcg/Sodium Chloride 100 ml @ 1.25 mls/hr Q24H IV 09/28/17 00:00 10/05/17 00:00 09/29/17 23:52 Heparin Sodium (Porcine) (Heparin 5000 units/ml) 5,000 units EVERY 12 HOURS SUBQ 09/27/17 21:00 10/27/17 20:59 09/30/17 09:33 Hydralazine HCl (Apresoline) 10 mg Q6H PRN IV For High Blood Pressure 09/28/17 12:30 10/28/17 12:29 09/30/17 05:20 Insulin Aspart (NovoLOG) EVERY 6 HOURS SUBQ 09/22/17 00:00 10/19/17 16:29 09/30/17 12:19 Isosorbide Dinitrate (Isordil) 10 mg Q6HR NG 09/27/17 12:00 10/27/17 11:59 09/30/17 12:15 Loperamide HCl (Imodium) 2 mg Q6H PRN NG Diarrhea 09/25/17 11:30 10/25/17 11:29 Lorazepam (Ativan 2mg/ml 1ml) 1 mg Q4H PRN IV For Anxiety 09/24/17 10:30 10/01/17 10:29 09/27/17 17:13 Minocycline HCl (Minocin) 100 mg Q12HR ORAL 09/30/17 21:00 10/03/17 23:59 Nitroglycerin (Ntg) 1 patch Q24H TDERMAL 09/28/17 09:00 10/28/17 08:59 09/30/17 09:31 Piperacillin Sod/ Tazobactam Sod 2.25 gm/Dextrose 55 ml @ 110 mls/hr Q8HR IVPB 09/19/17 22:00 10/01/17 23:59 09/30/17 14:41 Allergies: Coded Allergies: No Known Allergies (Verified , 01/02/09) ROS Limited/Unobtainable: Yes - intubated Subjective remains intubated, off pressor Objective Last Vital Signs Date Time Temp Pulse Resp B/P (MAP) Pulse Ox O2 Delivery O2 Flow Rate FiO2 09/30/17 15:00 65 20 153/81 100 Mechanical Ventilator 30 09/30/17 12:00 98.6 98.6 09/23/17 22:11 50.0 General Appearance: no apparent distress, other - orally intubated Neck: normal inspection Cardiovascular: regular rhythm, no JVD, systolic murmur Respiratory/Chest: no respiratory distress, no accessory muscle use, rhonchi - right Abdomen: normal bowel sounds, non tender, soft, no mass, other - peg Extremities: non-tender Edema: mild edema Neurologic: aphasia, other - obtunded Laboratory Tests Test 09/30/17 05:00 White Blood Count 11.3 K/UL (4.8-10.8) H Red Blood Count 3.54 M/UL (4.70-6.10) L Hemoglobin 9.2 G/DL (14.2-18.0) L Hematocrit 30.1 % (42.0-52.0) L Mean Corpuscular Volume 85 FL (80-99) Mean Corpuscular Hemoglobin 26.0 PG (27.0-31.0) L Mean Corpuscular Hemoglobin Concent 30.7 G/DL (32.0-36.0) L Red Cell Distribution Width 17.2 % (11.6-14.8) H Platelet Count 205 K/UL (150-450) Mean Platelet Volume 6.8 FL (6.5-10.1) Neutrophils (%) (Auto) 60.0 % (45.0-75.0) Lymphocytes (%) (Auto) 24.7 % (20.0-45.0) Monocytes (%) (Auto) 5.1 % (1.0-10.0) Eosinophils (%) (Auto) 10.0 % (0.0-3.0) H Basophils (%) (Auto) 0.2 % (0.0-2.0) Sodium Level 148 MMOL/L (136-145) H Potassium Level 3.6 MMOL/L (3.5-5.1) Chloride Level 110 MMOL/L (98-107) H Carbon Dioxide Level 33 MMOL/L (21-32) H Anion Gap 5 mmol/L (5-15) Blood Urea Nitrogen 37 mg/dL (7-18) H Creatinine 2.2 MG/DL (0.55-1.30) H Estimat Glomerular Filtration Rate mL/min (>60) Glucose Level 76 MG/DL (74-106) Calcium Level 9.3 MG/DL (8.5-10.1) Phosphorus Level 3.5 MG/DL (2.5-4.9) Magnesium Level 2.1 MG/DL (1.8-2.4) Total Bilirubin 0.3 MG/DL (0.2-1.0) Gamma Glutamyl Transpeptidase 42 U/L (5-85) Aspartate Amino Transf (AST/SGOT) 33 U/L (15-37) Alanine Aminotransferase (ALT/SGPT) 51 U/L (12-78) Alkaline Phosphatase 93 U/L (46-116) C-Reactive Protein, Quantitative 9.6 mg/dL (0.00-0.90) H Pro-B-Type Natriuretic Peptide 5417 pg/mL (0-125) H Total Protein 7.9 G/DL (6.4-8.2) Albumin 1.7 G/DL (3.4-5.0) L Globulin 6.2 g/dL Albumin/Globulin Ratio 0.3 (1.0-2.7) L Intake and Output 09/29/17 09/30/17 19:00 07:00 Intake Total 370.00 ml 765.00 ml Output Total 540 ml 730 ml Balance -170.00 ml 35.00 ml IV Total 70.00 ml 125.00 ml Tube Feeding 300 ml 360 ml Other 280 ml Output Urine Total 540 ml 630 ml Stool Total 100 ml # Bowel Movements 50 Assessment/Plan Status: stable, unchanged Assessment/Plan MPRESSION: 1. Acute respiratory failure, orally intubated. 2. MDR Pneumonia likely aspiration pneumonia versus healthcare associated pneumonia. 3. Severe dehydration. 4. Hypernatremia. 5. Hyperkalemia. 6. Acute on chronic renal failure stage 3. 7. Uremia due to prerenal. 8. Transaminitis. 9. Elevated lipase. 10. Severe protein-calorie malnutrition. 11. History of chronic CVA with right hemiparesis. 13. History of organic brain disease. 14. History of advanced dementia. 15. Status post gastrostomy tube placement. 16. History of neurogenic bladder/chronic indwelling Matson catheter. 17. Hyperlipidemia. 18. Coronary artery disease. 19. poor venous access PLAN: intensive care unit. daily vent weaning attempt---> PS trial may need trach if continue to fail weaning. d/w Dr shah intravenous fluid. per renal IV lasix as needed lyte replete Pulmonary nebulizer. off pressor for now PRBC tx as needed DVT and GI prophylaxis. IV abx Matson catheter. Aspiration precaution. electrolytes replete as indicated. enteral feeding as tolerated FULL CODE over 35 min spent in critical care in ICU d/w [employer] consultant Cesario Chacon MD [phone] CESARIO CHACON September 30, 2017 16:03
--- NOTE | 2017-09-30 16:09 | GI Progress Note ---
Assessment/Plan Problems: (1) Anemia ICD Codes: D64.9 - Anemia, unspecified SNOMED: 572043639 (2) Feeding by G-tube ICD Codes: Z93.1 - Gastrostomy status SNOMED: 582575372, 789317464 (3) Acute encephalopathy ICD Codes: G93.40 - Encephalopathy, unspecified SNOMED: 0860926 (4) Transaminitis ICD Codes: R74.0 - Nonspecific elevation of levels of transaminase and lactic acid dehydrogenase [LDH] SNOMED: 525745623, 040767346 (5) Diarrhea ICD Codes: R19.7 - Diarrhea, unspecified SNOMED: 76136219 Status: unchanged Status Narrative Discussed with Dr. Taveras. Assessment/Plan Assessment - Anemia - abnormal LFT - Resp failure - Renal failure - Sepsis - CVA / (R) taylor - dysphagia / GT - diarrhea Recommendations - H2B BID - dc reglan given renal insufficiency - Imodium prn - TF - check abd u/s - check OB, fu hep panel - transufse PRN - abx - s/p EGD/colon 07/2017 at [facility] (HH,polyps, diverticulosis) - fu labs The patient was seen and examined at bedside and all new and available data was reviewed in the patients chart. I agree with the above findings, impression and plan. (Patient seen earlier today. Signature stamp does not reflect patient encounter time.). - Villa Taveras MD Subjective Subjective limited Objective Last 24 Hour Vital Signs Date Time Temp Pulse Resp B/P (MAP) Pulse Ox O2 Delivery O2 Flow Rate FiO2 09/30/17 15:00 65 20 153/81 100 Mechanical Ventilator 30 09/30/17 14:45 72 18 30 09/30/17 14:30 65 19 141/78 99 Mechanical Ventilator 30 09/30/17 14:00 65 19 143/80 100 Mechanical Ventilator 30 09/30/17 13:30 63 18 143/74 100 Mechanical Ventilator 30 09/30/17 13:21 64 16 30 09/30/17 13:20 63 16 100 Mechanical Ventilator 30 09/30/17 13:10 63 16 100 Mechanical Ventilator 30 09/30/17 13:00 65 17 153/85 100 Mechanical Ventilator 30 09/30/17 12:30 66 16 153/86 99 Mechanical Ventilator 30 5/15/18 12:15 170/77 5/15/18 12:00 65 09/30/17 12:00 98.6 64 23 170/77 99 Mechanical Ventilator 30 98.6 09/30/17 12:00 30 09/30/17 11:30 64 32 150/76 99 Mechanical Ventilator 30 09/30/17 11:00 65 29 150/70 99 Mechanical Ventilator 30 09/30/17 10:37 65 31 30 09/30/17 10:30 65 26 170/77 100 Mechanical Ventilator 30 09/30/17 10:00 63 26 163/82 100 Mechanical Ventilator 30 09/30/17 09:31 159/79 09/30/17 09:30 66 28 159/79 99 Mechanical Ventilator 30 09/30/17 09:30 28 09/30/17 09:07 66 33 30 09/30/17 09:05 99 09/30/17 09:00 28 09/30/17 09:00 64 28 169/67 100 Mechanical Ventilator 30 09/30/17 08:30 62 20 158/76 100 Mechanical Ventilator 30 09/30/17 08:00 30 09/30/17 08:00 98.8 63 19 159/79 99 Mechanical Ventilator 30 98.8 09/30/17 08:00 65 09/30/17 08:00 22 09/30/17 07:30 63 23 147/68 100 Mechanical Ventilator 30 09/30/17 07:20 66 16 100 Mechanical Ventilator 30 09/30/17 07:18 66 16 30 09/30/17 07:10 66 16 100 Mechanical Ventilator 30 09/30/17 07:09 67 16 100 Mechanical Ventilator 30 09/30/17 07:00 66 16 149/65 100 Mechanical Ventilator 30 09/30/17 07:00 18 09/30/17 07:00 68 16 100 Mechanical Ventilator 30 09/30/17 06:02 148/69 09/30/17 06:00 65 27 148/69 100 Mechanical Ventilator 30 09/30/17 06:00 18 09/30/17 05:26 66 20 30 09/30/17 05:20 181/80 09/30/17 05:00 61 19 162/78 100 Mechanical Ventilator 30 09/30/17 05:00 19 09/30/17 04:33 67 09/30/17 04:00 30 09/30/17 04:00 98.0 60 20 162/78 100 Mechanical Ventilator 30 98.0 09/30/17 04:00 20 09/30/17 03:00 21 09/30/17 03:00 71 21 162/78 100 Mechanical Ventilator 30 09/30/17 02:48 62 21 30 09/30/17 02:00 58 18 162/78 100 Mechanical Ventilator 30 09/30/17 02:00 18 09/30/17 01:29 63 16 100 Mechanical Ventilator 30 09/30/17 01:14 60 16 30 09/30/17 01:14 60 16 100 Mechanical Ventilator 30 09/30/17 01:00 18 09/30/17 01:00 59 18 162/78 100 Mechanical Ventilator 30 09/30/17 00:00 30 09/30/17 00:00 98.7 60 19 148/71 99 Mechanical Ventilator 30 98.7 09/30/17 00:00 19 09/29/17 23:52 18 09/29/17 23:41 155/77 09/29/17 23:23 58 09/29/17 23:00 61 17 155/77 100 Mechanical Ventilator 30 09/29/17 23:00 18 09/29/17 22:53 61 16 100 Mechanical Ventilator 30 09/29/17 22:48 61 18 30 09/29/17 22:48 61 20 Mechanical Ventilator 30 09/29/17 22:46 61 18 100 Mechanical Ventilator 30 09/29/17 22:00 63 20 161/75 99 Mechanical Ventilator 30 09/29/17 22:00 20 09/29/17 21:49 61 17 30 09/29/17 21:00 64 19 169/87 99 Mechanical Ventilator 30 09/29/17 21:00 19 09/29/17 20:00 30 09/29/17 20:00 19 09/29/17 20:00 98.6 65 16 154/78 99 Mechanical Ventilator 30 98.6 09/29/17 19:46 62 09/29/17 19:11 66 16 100 Mechanical Ventilator 30 09/29/17 19:00 63 16 30 09/29/17 19:00 17 09/29/17 19:00 62 16 146/77 100 Mechanical Ventilator 30 09/29/17 18:59 63 16 100 Mechanical Ventilator 30 09/29/17 18:00 64 16 142/75 100 Mechanical Ventilator 30 09/29/17 18:00 18 09/29/17 17:50 159/86 09/29/17 17:01 67 23 30 09/29/17 17:00 18 09/29/17 17:00 70 18 161/86 100 Mechanical Ventilator 30 Intake and Output 09/29/17 09/30/17 19:00 07:00 Intake Total 370.00 ml 765.00 ml Output Total 540 ml 730 ml Balance -170.00 ml 35.00 ml IV Total 70.00 ml 125.00 ml Tube Feeding 300 ml 360 ml Other 280 ml Output Urine Total 540 ml 630 ml Stool Total 100 ml # Bowel Movements 50 Laboratory Tests Test 09/30/17 05:00 White Blood Count 11.3 K/UL (4.8-10.8) H Red Blood Count 3.54 M/UL (4.70-6.10) L Hemoglobin 9.2 G/DL (14.2-18.0) L Hematocrit 30.1 % (42.0-52.0) L Mean Corpuscular Volume 85 FL (80-99) Mean Corpuscular Hemoglobin 26.0 PG (27.0-31.0) L Mean Corpuscular Hemoglobin Concent 30.7 G/DL (32.0-36.0) L Red Cell Distribution Width 17.2 % (11.6-14.8) H Platelet Count 205 K/UL (150-450) Mean Platelet Volume 6.8 FL (6.5-10.1) Neutrophils (%) (Auto) 60.0 % (45.0-75.0) Lymphocytes (%) (Auto) 24.7 % (20.0-45.0) Monocytes (%) (Auto) 5.1 % (1.0-10.0) Eosinophils (%) (Auto) 10.0 % (0.0-3.0) H Basophils (%) (Auto) 0.2 % (0.0-2.0) Sodium Level 148 MMOL/L (136-145) H Potassium Level 3.6 MMOL/L (3.5-5.1) Chloride Level 110 MMOL/L (98-107) H Carbon Dioxide Level 33 MMOL/L (21-32) H Anion Gap 5 mmol/L (5-15) Blood Urea Nitrogen 37 mg/dL (7-18) H Creatinine 2.2 MG/DL (0.55-1.30) H Estimat Glomerular Filtration Rate mL/min (>60) Glucose Level 76 MG/DL (74-106) Calcium Level 9.3 MG/DL (8.5-10.1) Phosphorus Level 3.5 MG/DL (2.5-4.9) Magnesium Level 2.1 MG/DL (1.8-2.4) Total Bilirubin 0.3 MG/DL (0.2-1.0) Gamma Glutamyl Transpeptidase 42 U/L (5-85) Aspartate Amino Transf (AST/SGOT) 33 U/L (15-37) Alanine Aminotransferase (ALT/SGPT) 51 U/L (12-78) Alkaline Phosphatase 93 U/L (46-116) C-Reactive Protein, Quantitative 9.6 mg/dL (0.00-0.90) H Pro-B-Type Natriuretic Peptide 5417 pg/mL (0-125) H Total Protein 7.9 G/DL (6.4-8.2) Albumin 1.7 G/DL (3.4-5.0) L Globulin 6.2 g/dL Albumin/Globulin Ratio 0.3 (1.0-2.7) L Height (Feet): 5 Height (Inches): 8.00 Weight (Pounds): 204 General Appearance: no apparent distress Cardiovascular: normal rate Respiratory/Chest: normal breath sounds, no respiratory distress, other Abdominal Exam: normal bowel sounds, non tender, soft, GT site - c/d/i Extremities: non-tender Ramandeep Francois NP September 30, 2017 16:09
[2017-09-30] MEDS ORDERED: Tubing IV Secondary IV ONE (17:39)
[2017-09-30] MEDS ORDERED: Sterile Water Irrig 1000ml IRRIG ONE (17:39)
--- NOTE | 2017-09-30 18:36 | Pulmonolgy Critical Care Note ---
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 (4) Sepsis (5) UTI (urinary tract infection) Assessment & Plan: ESLB proteus (6) Renal failure (7) Feeding by G-tube (8) Acute encephalopathy (9) HCAP (healthcare-associated pneumonia) (10) s/p multiple lacunar strokes, old (11) recent L MCA ischemic stroke (12) Bacterial infection due to Staphylococcus Assessment & Plan: S capitis /, repeat CX's NG Respiratory: monitor respiratory rate, adjust FIO2, weaning trial - in am ---> if burton will extubate WITH NO PLAN TO RE-INTUBATE, DNAR/DNI now, other - RTC and PRN HHN's, will keep negative, pulm hygiene Cardiac: continue to monitor HR/BP Renal: F/U I&O, other - lasix 20 IV x 1 Infectious Disease: continue antibiotics - per ID: Zosyn x 1 more day, colistin , minocycline Gastrointestinal: continue feedings/current rate, hold feedings - in am for SBT Endocrine: monitor blood sugar, continue sliding scale insulin Hematologic: monitor H/H Neurologic: keep patient comfortable - Fent gtt, will hold in am for extubation , PRN Ativan Prophylaxis: Heparin - SQ, other - Famotidine Time Spent (Minutes): 70 Notes Reviewed: state pilot, cardio, renal, ID, other - D/W family - extended meeting today: DNAR/DNI, trial at extubation, if fails BiPAP ok but no plan to re-intubate Discussed with: nurses, consultants, case management associate, family member Critical Care - Objective Last 24 Hour Vital Signs Date Time Temp Pulse Resp B/P (MAP) Pulse Ox O2 Delivery O2 Flow Rate FiO2 09/30/17 17:30 63 18 167/93 100 Mechanical Ventilator 30 09/30/17 17:00 63 18 158/84 100 Mechanical Ventilator 30 09/30/17 16:43 62 16 30 09/30/17 16:30 64 19 165/86 100 Mechanical Ventilator 30 09/30/17 16:00 30 09/30/17 16:00 98.5 64 19 170/88 100 Mechanical Ventilator 30 98.5 09/30/17 16:00 65 09/30/17 15:30 65 18 161/82 100 Mechanical Ventilator 30 09/30/17 15:00 65 20 153/81 100 Mechanical Ventilator 30 09/30/17 14:45 72 18 30 09/30/17 14:30 65 19 141/78 99 Mechanical Ventilator 30 09/30/17 14:00 65 19 143/80 100 Mechanical Ventilator 30 09/30/17 13:30 63 18 143/74 100 Mechanical Ventilator 30 09/30/17 13:21 64 16 30 09/30/17 13:20 63 16 100 Mechanical Ventilator 30 09/30/17 13:10 63 16 100 Mechanical Ventilator 30 09/30/17 13:00 65 17 153/85 100 Mechanical Ventilator 30 09/30/17 12:30 66 16 153/86 99 Mechanical Ventilator 30 09/30/17 12:15 170/77 09/30/17 12:00 65 09/30/17 12:00 98.6 64 23 170/77 99 Mechanical Ventilator 30 98.6 09/30/17 12:00 30 09/30/17 11:30 64 32 150/76 99 Mechanical Ventilator 30 09/30/17 11:00 65 29 150/70 99 Mechanical Ventilator 30 09/30/17 10:37 65 31 30 09/30/17 10:30 65 26 170/77 100 Mechanical Ventilator 30 09/30/17 10:00 63 26 163/82 100 Mechanical Ventilator 30 09/30/17 09:31 159/79 09/30/17 09:30 66 28 159/79 99 Mechanical Ventilator 30 09/30/17 09:30 28 09/30/17 09:07 66 33 30 09/30/17 09:05 99 09/30/17 09:00 28 09/30/17 09:00 64 28 169/67 100 Mechanical Ventilator 30 09/30/17 08:30 62 20 158/76 100 Mechanical Ventilator 30 09/30/17 08:00 30 09/30/17 08:00 98.8 63 19 159/79 99 Mechanical Ventilator 30 98.8 09/30/17 08:00 65 09/30/17 08:00 22 09/30/17 07:30 63 23 147/68 100 Mechanical Ventilator 30 09/30/17 07:20 66 16 100 Mechanical Ventilator 30 09/30/17 07:18 66 16 30 09/30/17 07:10 66 16 100 Mechanical Ventilator 30 09/30/17 07:09 67 16 100 Mechanical Ventilator 30 09/30/17 07:00 66 16 149/65 100 Mechanical Ventilator 30 09/30/17 07:00 18 09/30/17 07:00 68 16 100 Mechanical Ventilator 30 09/30/17 06:02 148/69 09/30/17 06:00 65 27 148/69 100 Mechanical Ventilator 30 09/30/17 06:00 18 09/30/17 05:26 66 20 30 09/30/17 05:20 181/80 09/30/17 05:00 61 19 162/78 100 Mechanical Ventilator 30 09/30/17 05:00 19 09/30/17 04:33 67 09/30/17 04:00 30 09/30/17 04:00 98.0 60 20 162/78 100 Mechanical Ventilator 30 98.0 09/30/17 04:00 20 09/30/17 03:00 21 09/30/17 03:00 71 21 162/78 100 Mechanical Ventilator 30 09/30/17 02:48 62 21 30 09/30/17 02:00 58 18 162/78 100 Mechanical Ventilator 30 09/30/17 02:00 18 09/30/17 01:29 63 16 100 Mechanical Ventilator 30 09/30/17 01:14 60 16 30 09/30/17 01:14 60 16 100 Mechanical Ventilator 30 09/30/17 01:00 18 09/30/17 01:00 59 18 162/78 100 Mechanical Ventilator 30 09/30/17 00:00 30 09/30/17 00:00 98.7 60 19 148/71 99 Mechanical Ventilator 30 98.7 09/30/17 00:00 19 09/29/17 23:52 18 09/29/17 23:41 155/77 09/29/17 23:23 58 09/29/17 23:00 61 17 155/77 100 Mechanical Ventilator 30 09/29/17 23:00 18 09/29/17 22:53 61 16 100 Mechanical Ventilator 30 09/29/17 22:48 61 18 30 09/29/17 22:48 61 20 Mechanical Ventilator 30 09/29/17 22:46 61 18 100 Mechanical Ventilator 30 09/29/17 22:00 63 20 161/75 99 Mechanical Ventilator 30 09/29/17 22:00 20 09/29/17 21:49 61 17 30 09/29/17 21:00 64 19 169/87 99 Mechanical Ventilator 30 09/29/17 21:00 19 09/29/17 20:00 30 09/29/17 20:00 19 09/29/17 20:00 98.6 65 16 154/78 99 Mechanical Ventilator 30 98.6 09/29/17 19:46 62 09/29/17 19:11 66 16 100 Mechanical Ventilator 30 09/29/17 19:00 63 16 30 09/29/17 19:00 17 09/29/17 19:00 62 16 146/77 100 Mechanical Ventilator 30 09/29/17 18:59 63 16 100 Mechanical Ventilator 30 Status: obtunded Condition: critical HEENT: atraumatic, normocephalic Lungs: rhonchi - scattered Heart: HR/BP stable Abdomen: soft, non-tender, active bowel sounds, feeding tube Extremities: no C/C/E Decubiti: location - sacrum and scrotum, stage - 3 Accucheck: 117 Blood Sugars: BS controlled Critical Care - Subjective ROS Limited/Unobtainable: Yes ICU Day: 12 Intubation Day: 12 Interval Events: Burton SBT x a few hours with PS8 No sig secretions Elevated BP o/W HD stable CXR with scattered b infiltrates and PVC No change in MS Extensive d/w family today --> DNAR/DNI, trial of extubation tomorrow, if fails will not reintubate Condition: stable IV Access: PICC EKG Rhythm: Sinus Rhythm FI02: 30 Vent Support Breath Rate: 16 Vent Support Mode: AC Vent Tidal Volume: 450 Sputum Amount: Small PEEP: 5.0 PIP: 23 Drips: Fent @ 25 Tube Feeding Amount: 30 I&O: Intake and Output 09/29/17 09/30/17 19:00 07:00 Intake Total 370.00 ml 765.00 ml Output Total 540 ml 730 ml Balance -170.00 ml 35.00 ml IV Total 70.00 ml 125.00 ml Tube Feeding 300 ml 360 ml Other 280 ml Output Urine Total 540 ml 630 ml Stool Total 100 ml # Bowel Movements 50 Subjective: Unable to obtain CXR: Scattered b infiltrates and PVC ET-Tube: 8.0 ET Position: 24 Labs: Laboratory Tests Test 09/30/17 05:00 White Blood Count 11.3 K/UL (4.8-10.8) H Red Blood Count 3.54 M/UL (4.70-6.10) L Hemoglobin 9.2 G/DL (14.2-18.0) L Hematocrit 30.1 % (42.0-52.0) L Mean Corpuscular Volume 85 FL (80-99) Mean Corpuscular Hemoglobin 26.0 PG (27.0-31.0) L Mean Corpuscular Hemoglobin Concent 30.7 G/DL (32.0-36.0) L Red Cell Distribution Width 17.2 % (11.6-14.8) H Platelet Count 205 K/UL (150-450) Mean Platelet Volume 6.8 FL (6.5-10.1) Neutrophils (%) (Auto) 60.0 % (45.0-75.0) Lymphocytes (%) (Auto) 24.7 % (20.0-45.0) Monocytes (%) (Auto) 5.1 % (1.0-10.0) Eosinophils (%) (Auto) 10.0 % (0.0-3.0) H Basophils (%) (Auto) 0.2 % (0.0-2.0) Sodium Level 148 MMOL/L (136-145) H Potassium Level 3.6 MMOL/L (3.5-5.1) Chloride Level 110 MMOL/L (98-107) H Carbon Dioxide Level 33 MMOL/L (21-32) H Anion Gap 5 mmol/L (5-15) Blood Urea Nitrogen 37 mg/dL (7-18) H Creatinine 2.2 MG/DL (0.55-1.30) H Estimat Glomerular Filtration Rate mL/min (>60) Glucose Level 76 MG/DL (74-106) Calcium Level 9.3 MG/DL (8.5-10.1) Phosphorus Level 3.5 MG/DL (2.5-4.9) Magnesium Level 2.1 MG/DL (1.8-2.4) Total Bilirubin 0.3 MG/DL (0.2-1.0) Gamma Glutamyl Transpeptidase 42 U/L (5-85) Aspartate Amino Transf (AST/SGOT) 33 U/L (15-37) Alanine Aminotransferase (ALT/SGPT) 51 U/L (12-78) Alkaline Phosphatase 93 U/L (46-116) C-Reactive Protein, Quantitative 9.6 mg/dL (0.00-0.90) H Pro-B-Type Natriuretic Peptide 5417 pg/mL (0-125) H Total Protein 7.9 G/DL (6.4-8.2) Albumin 1.7 G/DL (3.4-5.0) L Globulin 6.2 g/dL Albumin/Globulin Ratio 0.3 (1.0-2.7) L CHRISTINA KIDD M.D. September 30, 2017 18:36
[2017-09-30] MEDS: Dyna-Hex 2% Top Sol 2oz TOPIC SCH (20:00)
[2017-09-30] MEDS: Acetaminophen 650mg/20.3ml NG PRN (23:54)
[2017-09-30] MEDS: fentaNYL Citrate 1000 MCG in NS 100ml IV SCH (23:55)
[2017-10-01] VITALS (32 sets, daily range): BP systolic 126–197; BP diastolic 55–112
[2017-10-01] MEDS: Albuterol/Ipratropium 3ml neb HHN SCH ×4 (01:51→19:04)
[2017-10-01 04:41] LABS: BASOPHILS % (AUTO) 0.3 % (0.0-2.0); EOSINOPHILS % (AUTO) 10.5 % (0.0-3.0); HEMATOCRIT 29.4 % (42.0-52.0); MEAN CORPUSCULAR VOLUME 85 FL (80-99); MONOCYTES % (AUTO) 5.5 % (1.0-10.0); NEUTROPHILS % (AUTO) 60.7 % (45.0-75.0); PLATELET COUNT 218 K/UL (150-450); RED BLOOD COUNT 3.47 M/UL (4.70-6.10); RED CELL DISTRIBUTION WIDTH 16.9 % (11.6-14.8); WHITE BLOOD COUNT 9.6 K/UL (4.8-10.8)
[2017-10-01 04:58] LABS: ANION GAP 5 mmol/L (5-15); BLOOD UREA NITROGEN 31 mg/dL (7-18); CALCIUM 9.4 MG/DL (8.5-10.1); CARBON DIOXIDE 33 MMOL/L (21-32); CHLORIDE 109 MMOL/L (98-107); CREATININE 2.1 MG/DL (0.55-1.30); POTASSIUM 3.3 MMOL/L (3.5-5.1); SODIUM 147 MMOL/L (136-145)
[2017-10-01 05:26] LABS: INR 1.2 (0.9-1.1)
[2017-10-01] MEDS: Piperacillin/Tazobactam 2.25 GM in D5W 55 ML IVPB SCH ×3 (05:50→21:24)
[2017-10-01] MEDS: NovoLOG Insulin Flexpen SUBQ SCH ×3 (05:51→18:00)
[2017-10-01] MEDS ORDERED: Naloxone 0.4mg/ml Inj IVP SCH (08:30)
[2017-10-01] MEDS ORDERED: Potassium Chloride 30 MEQ in Sodium Chloride 500ML 550 ML IVPB ONE (08:30)
[2017-10-01] MEDS: Minocycline HCl 50mg cap ORAL SCH ×2 (09:12→21:09)
[2017-10-01] MEDS: Heparin 5000 units/ml inj SUBQ SCH ×2 (09:14→21:10)
[2017-10-01] MEDS: Nitroglycerin Patch 0.4mg TDERMAL SCH (09:16)
--- NOTE | 2017-10-01 09:37 | Nephrology Progress Note ---
Assessment/Plan Problem List: (1) ATN (acute tubular necrosis) (2) Septic shock (3) Respiratory failure (4) Diabetes mellitus Assessment Acute Renal failure- Cr lower ? Underlying CKD Component of dehydration, Pre renal state and Hypernatremia Acute respiratory failure, Aspiartion Pneumonia, UTI Septic Shock H/O Multiple Strokes Anemia Elevated Troponin Hyperglycemia PEG Plan Family here- terminal extubation being entertained previous plans: transfused add isordil Pulm support Hydrate- avoid nephrotoxics Monitor renal parameters Hemodynamic support IV iron Nitro and asa GT feeding Subjective ROS Limited/Unobtainable: Yes Objective Objective Last 24 Hour Vital Signs Date Time Temp Pulse Resp B/P (MAP) Pulse Ox O2 Delivery O2 Flow Rate FiO2 10/01/17 09:16 159/82 10/01/17 08:00 76 19 159/82 100 Mechanical Ventilator 30 10/01/17 08:00 30 10/01/17 07:30 98.8 75 19 153/82 100 Mechanical Ventilator 30 98.8 10/01/17 07:25 72 18 100 Mechanical Ventilator 30 10/01/17 07:15 75 23 100 Mechanical Ventilator 30 10/01/17 07:13 75 23 30 10/01/17 07:00 19 10/01/17 07:00 69 19 146/76 100 Mechanical Ventilator 30 10/01/17 06:30 72 20 146/72 100 Mechanical Ventilator 30 10/01/17 06:00 66 19 162/85 100 Mechanical Ventilator 30 10/01/17 06:00 19 10/01/17 05:50 169/65 10/01/17 05:50 169/65 10/01/17 05:30 73 21 169/95 100 Mechanical Ventilator 30 10/01/17 05:00 66 20 196/104 100 Mechanical Ventilator 30 10/01/17 05:00 23 10/01/17 04:48 65 21 30 10/01/17 04:30 65 18 166/84 100 Mechanical Ventilator 30 10/01/17 04:00 30 10/01/17 04:00 19 10/01/17 04:00 98.5 65 19 170/86 100 Mechanical Ventilator 30 98.5 10/01/17 03:47 67 10/01/17 03:30 64 19 158/81 100 Mechanical Ventilator 30 10/01/17 03:30 66 26 30 10/01/17 03:00 17 10/01/17 03:00 62 17 161/80 100 Mechanical Ventilator 30 10/01/17 02:30 63 19 160/81 100 Mechanical Ventilator 30 10/01/17 02:00 63 20 152/77 100 Mechanical Ventilator 30 10/01/17 02:00 18 10/01/17 01:53 69 18 100 Mechanical Ventilator 30 10/01/17 01:51 62 16 100 Mechanical Ventilator 30 10/01/17 01:30 69 16 30 10/01/17 01:30 65 20 150/70 100 Mechanical Ventilator 30 10/01/17 01:00 19 10/01/17 01:00 63 19 152/70 99 Mechanical Ventilator 30 10/01/17 00:30 68 21 137/70 99 Mechanical Ventilator 30 10/01/17 00:00 22 10/01/17 00:00 30 10/01/17 00:00 98.5 68 22 158/75 99 Mechanical Ventilator 30 98.5 09/30/17 23:55 27 09/30/17 23:55 147/75 09/30/17 23:53 69 09/30/17 23:30 74 16 30 09/30/17 23:30 68 19 147/75 99 Mechanical Ventilator 30 09/30/17 23:00 68 20 149/79 100 Mechanical Ventilator 30 09/30/17 23:00 20 09/30/17 22:30 66 19 185/80 100 Mechanical Ventilator 30 09/30/17 22:29 174/83 09/30/17 22:00 66 17 174/83 100 Mechanical Ventilator 30 09/30/17 22:00 17 09/30/17 21:30 63 16 172/84 100 Mechanical Ventilator 30 09/30/17 21:01 69 17 30 09/30/17 21:00 67 20 147/67 100 Mechanical Ventilator 30 09/30/17 21:00 20 09/30/17 20:30 66 17 177/84 100 Mechanical Ventilator 30 09/30/17 20:00 65 19 100 Mechanical Ventilator 30 09/30/17 20:00 30 09/30/17 20:00 19 09/30/17 20:00 64 18 100 Mechanical Ventilator 30 09/30/17 20:00 65 17 174/84 99 Mechanical Ventilator 30 09/30/17 19:54 67 09/30/17 19:45 78 16 100 Mechanical Ventilator 30 09/30/17 19:30 66 19 30 09/30/17 19:30 74 16 100 Mechanical Ventilator 30 09/30/17 19:30 98.3 66 18 166/92 99 Mechanical Ventilator 30 98.3 09/30/17 19:00 65 17 158/62 99 Mechanical Ventilator 30 09/30/17 19:00 17 18 18:39 165/82 18 18:30 67 19 165/82 99 Mechanical Ventilator 30 09/30/17 18:00 18 09/30/17 18:00 64 18 154/80 100 Mechanical Ventilator 30 09/30/17 17:30 63 18 167/93 100 Mechanical Ventilator 30 09/30/17 17:00 63 18 158/84 100 Mechanical Ventilator 30 09/30/17 17:00 18 09/30/17 16:43 62 16 30 09/30/17 16:30 64 19 165/86 100 Mechanical Ventilator 30 09/30/17 16:00 30 09/30/17 16:00 98.5 64 19 170/88 100 Mechanical Ventilator 30 98.5 09/30/17 16:00 19 09/30/17 16:00 65 09/30/17 15:30 65 18 161/82 100 Mechanical Ventilator 30 09/30/17 15:00 65 20 153/81 100 Mechanical Ventilator 30 09/30/17 15:00 20 09/30/17 14:45 72 18 30 09/30/17 14:30 65 19 141/78 99 Mechanical Ventilator 30 09/30/17 14:00 65 19 143/80 100 Mechanical Ventilator 30 09/30/17 14:00 19 09/30/17 13:30 63 18 143/74 100 Mechanical Ventilator 30 09/30/17 13:21 64 16 30 09/30/17 13:20 63 16 100 Mechanical Ventilator 30 09/30/17 13:10 63 16 100 Mechanical Ventilator 30 09/30/17 13:00 17 09/30/17 13:00 65 17 153/85 100 Mechanical Ventilator 30 09/30/17 12:30 66 16 153/86 99 Mechanical Ventilator 30 09/30/17 12:30 16 09/30/17 12:15 170/77 09/30/17 12:00 65 09/30/17 12:00 98.6 64 23 170/77 99 Mechanical Ventilator 30 98.6 09/30/17 12:00 30 09/30/17 11:30 64 32 150/76 99 Mechanical Ventilator 30 09/30/17 11:00 65 29 150/70 99 Mechanical Ventilator 30 09/30/17 10:37 65 31 30 09/30/17 10:30 65 26 170/77 100 Mechanical Ventilator 30 09/30/17 10:00 63 26 163/82 100 Mechanical Ventilator 30 Intake and Output 09/30/17 10/01/17 19:00 07:00 Intake Total 829.45 ml 635.00 ml Output Total 690 ml 1735 ml Balance 139.45 ml -1100.00 ml Free Water 250 ml IV Total 66.45 ml 125.00 ml Tube Feeding 360 ml 330 ml Other 153 ml 180 ml Output Urine Total 640 ml 1635 ml Stool Total 50 ml 100 ml Laboratory Tests 10/01/17 03:30: White Blood Count 9.6, Red Blood Count 3.47L, Hemoglobin 9.0L, Hematocrit 29.4L , Mean Corpuscular Volume 85, Mean Corpuscular Hemoglobin 26.0L, Mean Corpuscular Hemoglobin Concent 30.6L, Red Cell Distribution Width 16.9H, Platelet Count 218, Mean Platelet Volume 7.0, Neutrophils (%) (Auto) 60.7, Lymphocytes (%) (Auto) 23.0, Monocytes (%) (Auto) 5.5, Eosinophils (%) (Auto) 10.5H, Basophils (%) (Auto) 0.3, Prothrombin Time 11.7H, Prothromb Time International Ratio 1.2H, Activated Partial Thromboplast Time 35H, Sodium Level 147H, Potassium Level 3.3L, Chloride Level 109H, Carbon Dioxide Level 33H, Anion Gap 5, Blood Urea Nitrogen 31H, Creatinine 2.1H, Estimat Glomerular Filtration Rate , Glucose Level 98, Calcium Level 9.4 Height (Feet): 5 Height (Inches): 8.00 Weight (Pounds): 206 General Appearance: no apparent distress EENT: other - on vent Cardiovascular: normal rate Respiratory/Chest: decreased breath sounds Abdomen: distended ROSE MARY REID October 01, 2017 09:37
[2017-10-01] MEDS: Colistin for inhalation INH SCH ×2 (09:49→21:14)
--- NOTE | 2017-10-01 11:17 | Infectious Diseases Prog Note ---
Assessment/Plan Assessment/Plan A: Sepsis/septic shock off pressors Bacteremia with Staph capitis/ contamination Pneumonia with MDR Acinetobacter & Proteus UTI with Proteus treated Respiratory failure ATN DM Anemia Elevated transaminase DNR, DNI P: , Continue Minocycline & Colistin inhaler Poor prognosis Subjective ROS Limited/Unobtainable: Yes Respiratory: Reports: other - self extubated himself, Allergies: Coded Allergies: No Known Allergies (Verified , 01/02/09) Objective Vital Signs Last 24 Hour Vital Signs Date Time Temp Pulse Resp B/P (MAP) Pulse Ox O2 Delivery O2 Flow Rate FiO2 10/01/17 11:08 159/82 10/01/17 10:52 103 30 97 Facial 15.0 30 10/01/17 09:50 89 34 100 Nasal Cannula 2.0 28 10/01/17 09:39 28 10/01/17 09:39 86 30 99 Nasal Cannula 2.0 28 10/01/17 09:25 Nasal Cannula 2.0 28 10/01/17 09:23 72 16 100 Mechanical Ventilator 30 10/01/17 09:16 159/82 10/01/17 09:15 81 16 100 Mechanical Ventilator 30 10/01/17 08:01 99 10/01/17 08:00 76 19 159/82 100 Mechanical Ventilator 30 10/01/17 08:00 30 10/01/17 07:30 98.8 75 19 153/82 100 Mechanical Ventilator 30 98.8 10/01/17 07:25 72 18 100 Mechanical Ventilator 30 10/01/17 07:15 75 23 100 Mechanical Ventilator 30 10/01/17 07:13 75 23 30 10/01/17 07:00 19 10/01/17 07:00 69 19 146/76 100 Mechanical Ventilator 30 10/01/17 06:30 72 20 146/72 100 Mechanical Ventilator 30 10/01/17 06:00 66 19 162/85 100 Mechanical Ventilator 30 10/01/17 06:00 19 10/01/17 05:50 169/65 10/01/17 05:50 169/65 10/01/17 05:30 73 21 169/95 100 Mechanical Ventilator 30 10/01/17 05:00 66 20 196/104 100 Mechanical Ventilator 30 10/01/17 05:00 23 10/01/17 04:48 65 21 30 10/01/17 04:30 65 18 166/84 100 Mechanical Ventilator 30 10/01/17 04:00 30 10/01/17 04:00 19 10/01/17 04:00 98.5 65 19 170/86 100 Mechanical Ventilator 30 98.5 10/01/17 03:47 67 10/01/17 03:30 64 19 158/81 100 Mechanical Ventilator 30 10/01/17 03:30 66 26 30 10/01/17 03:00 17 10/01/17 03:00 62 17 161/80 100 Mechanical Ventilator 30 10/01/17 02:30 63 19 160/81 100 Mechanical Ventilator 30 10/01/17 02:00 63 20 152/77 100 Mechanical Ventilator 30 10/01/17 02:00 18 10/01/17 01:53 69 18 100 Mechanical Ventilator 30 10/01/17 01:51 62 16 100 Mechanical Ventilator 30 10/01/17 01:30 69 16 30 10/01/17 01:30 65 20 150/70 100 Mechanical Ventilator 30 10/01/17 01:00 19 10/01/17 01:00 63 19 152/70 99 Mechanical Ventilator 30 10/01/17 00:30 68 21 137/70 99 Mechanical Ventilator 30 10/01/17 00:00 22 10/01/17 00:00 30 10/01/17 00:00 98.5 68 22 158/75 99 Mechanical Ventilator 30 98.5 09/30/17 23:55 27 09/30/17 23:55 147/75 09/30/17 23:53 69 09/30/17 23:30 74 16 30 09/30/17 23:30 68 19 147/75 99 Mechanical Ventilator 30 09/30/17 23:00 68 20 149/79 100 Mechanical Ventilator 30 09/30/17 23:00 20 09/30/17 22:30 66 19 185/80 100 Mechanical Ventilator 30 09/30/17 22:29 174/83 09/30/17 22:00 66 17 174/83 100 Mechanical Ventilator 30 09/30/17 22:00 17 09/30/17 21:30 63 16 172/84 100 Mechanical Ventilator 30 09/30/17 21:01 69 17 30 09/30/17 21:00 67 20 147/67 100 Mechanical Ventilator 30 09/30/17 21:00 20 09/30/17 20:30 66 17 177/84 100 Mechanical Ventilator 30 09/30/17 20:00 65 19 100 Mechanical Ventilator 30 09/30/17 20:00 30 09/30/17 20:00 19 09/30/17 20:00 64 18 100 Mechanical Ventilator 30 09/30/17 20:00 65 17 174/84 99 Mechanical Ventilator 30 09/30/17 19:54 67 09/30/17 19:45 78 16 100 Mechanical Ventilator 30 09/30/17 19:30 66 19 30 09/30/17 19:30 74 16 100 Mechanical Ventilator 30 09/30/17 19:30 98.3 66 18 166/92 99 Mechanical Ventilator 30 98.3 09/30/17 19:00 65 17 158/62 99 Mechanical Ventilator 30 09/30/17 19:00 17 09/30/17 18:39 165/82 09/30/17 18:30 67 19 165/82 99 Mechanical Ventilator 30 09/30/17 18:00 18 09/30/17 18:00 64 18 154/80 100 Mechanical Ventilator 30 09/30/17 17:30 63 18 167/93 100 Mechanical Ventilator 30 09/30/17 17:00 63 18 158/84 100 Mechanical Ventilator 30 09/30/17 17:00 18 09/30/17 16:43 62 16 30 09/30/17 16:30 64 19 165/86 100 Mechanical Ventilator 30 09/30/17 16:00 30 09/30/17 16:00 98.5 64 19 170/88 100 Mechanical Ventilator 30 98.5 09/30/17 16:00 19 09/30/17 16:00 65 09/30/17 15:30 65 18 161/82 100 Mechanical Ventilator 30 09/30/17 15:00 65 20 153/81 100 Mechanical Ventilator 30 09/30/17 15:00 20 09/30/17 14:45 72 18 30 09/30/17 14:30 65 19 141/78 99 Mechanical Ventilator 30 09/30/17 14:00 65 19 143/80 100 Mechanical Ventilator 30 09/30/17 14:00 19 09/30/17 13:30 63 18 143/74 100 Mechanical Ventilator 30 09/30/17 13:21 64 16 30 09/30/17 13:20 63 16 100 Mechanical Ventilator 30 09/30/17 13:10 63 16 100 Mechanical Ventilator 30 09/30/17 13:00 17 09/30/17 13:00 65 17 153/85 100 Mechanical Ventilator 30 09/30/17 12:30 66 16 153/86 99 Mechanical Ventilator 30 09/30/17 12:30 16 18 12:15 170/77 09/30/17 12:00 65 09/30/17 12:00 98.6 64 23 170/77 99 Mechanical Ventilator 30 98.6 09/30/17 12:00 30 09/30/17 11:30 64 32 150/76 99 Mechanical Ventilator 30 Height (Feet): 5 Height (Inches): 8.00 Weight (Pounds): 206 HEENT: other - on BIPAP Respiratory/Chest: respiratory distress, rhonchi - bilaterally Cardiovascular: tachycardia, other - left arm PICC line Abdomen: soft, non tender, other - GT in place Extremities: no edema Neurologic/Psychiatric: aphasia Laboratory Tests Test 10/01/17 03:30 White Blood Count 9.6 K/UL (4.8-10.8) Red Blood Count 3.47 M/UL (4.70-6.10) L Hemoglobin 9.0 G/DL (14.2-18.0) L Hematocrit 29.4 % (42.0-52.0) L Mean Corpuscular Volume 85 FL (80-99) Mean Corpuscular Hemoglobin 26.0 PG (27.0-31.0) L Mean Corpuscular Hemoglobin Concent 30.6 G/DL (32.0-36.0) L Red Cell Distribution Width 16.9 % (11.6-14.8) H Platelet Count 218 K/UL (150-450) Mean Platelet Volume 7.0 FL (6.5-10.1) Neutrophils (%) (Auto) 60.7 % (45.0-75.0) Lymphocytes (%) (Auto) 23.0 % (20.0-45.0) Monocytes (%) (Auto) 5.5 % (1.0-10.0) Eosinophils (%) (Auto) 10.5 % (0.0-3.0) H Basophils (%) (Auto) 0.3 % (0.0-2.0) Prothrombin Time 11.7 SEC (9.30-11.50) H Prothromb Time International Ratio 1.2 (0.9-1.1) H Activated Partial Thromboplast Time 35 SEC (23-33) H Sodium Level 147 MMOL/L (136-145) H Potassium Level 3.3 MMOL/L (3.5-5.1) L Chloride Level 109 MMOL/L (98-107) H Carbon Dioxide Level 33 MMOL/L (21-32) H Anion Gap 5 mmol/L (5-15) Blood Urea Nitrogen 31 mg/dL (7-18) H Creatinine 2.1 MG/DL (0.55-1.30) H Estimat Glomerular Filtration Rate mL/min (>60) Glucose Level 98 MG/DL (74-106) Calcium Level 9.4 MG/DL (8.5-10.1) Current Medications Medications (Trade) Dose Ordered Sig/Keira Route PRN Reason Start Time Stop Time Status Last Admin Dose Admin Acetaminophen (Tylenol) 650 mg Q6H PRN NG Mild Pain/Temp > 100.5 09/22/17 20:00 10/22/17 19:59 09/30/17 23:54 Albuterol/ Ipratropium (Albuterol/ Ipratropium) 3 ml Q4H PRN HHN Shortness of Breath 09/29/17 10:00 10/04/17 09:59 10/01/17 09:49 Albuterol/ Ipratropium (Albuterol/ Ipratropium) 3 ml Q6HRT HHN 09/29/17 13:00 10/02/17 12:59 10/01/17 07:15 Chlorhexidine Gluconate (Michelle-Hex 2%) 1 applic DAILY@1999 TOPIC 09/27/17 20:00 10/27/17 19:59 09/30/17 20:00 Colistimethate Sodium (Colistin *inhalation use only*) 75 mg Q12HR@10,22 INH 09/27/17 22:00 10/04/17 21:59 10/01/17 09:49 Dextrose (Dextrose 50%) 25 ml STAT PRN IV Hypoglycemia 09/19/17 14:15 10/19/17 14:14 Dextrose (Dextrose 50%) 50 ml STAT PRN IV Hypoglycemia 09/19/17 14:15 10/19/17 14:14 Famotidine (Pepcid I.v.) 20 mg Q12HR IVP 09/27/17 21:00 10/27/17 20:59 10/01/17 09:12 Fentanyl Citrate 1000 mcg/Sodium Chloride 100 ml @ 1.25 mls/hr Q24H IV 09/28/17 00:00 10/05/17 00:00 09/30/17 23:55 Heparin Sodium (Porcine) (Heparin 5000 units/ml) 5,000 units EVERY 12 HOURS SUBQ 09/27/17 21:00 10/27/17 20:59 10/01/17 09:14 Hydralazine HCl (Apresoline) 10 mg Q6H PRN IV For High Blood Pressure 09/28/17 12:30 10/28/17 12:29 10/01/17 05:50 Insulin Aspart (NovoLOG) EVERY 6 HOURS SUBQ 09/22/17 00:00 10/19/17 16:29 09/30/17 23:56 Isosorbide Dinitrate (Isordil) 10 mg Q6HR NG 09/27/17 12:00 10/27/17 11:59 10/01/17 11:08 Loperamide HCl (Imodium) 2 mg Q6H PRN NG Diarrhea 09/25/17 11:30 10/25/17 11:29 Minocycline HCl (Minocin) 100 mg Q12HR ORAL 09/30/17 21:00 10/03/17 23:59 10/01/17 09:12 Nitroglycerin (Ntg) 1 patch Q24H TDERMAL 09/28/17 09:00 10/28/17 08:59 10/01/17 09:16 Piperacillin Sod/ Tazobactam Sod 2.25 gm/Dextrose 55 ml @ 110 mls/hr Q8HR IVPB 09/19/17 22:00 10/01/17 23:59 10/01/17 05:50 Potassium Chloride 30 meq/ Sodium Chloride 565 ml @ 188.333 mls/hr ONCE ONCE IVPB 10/01/17 08:30 10/01/17 11:29 10/01/17 09:12 ANDRES SAVAGE October 01, 2017 11:17
[2017-10-01] MEDS: LORazepam Inj 2mg/ml 1ml IV PRN ×2 (11:43→21:25)
--- NOTE | 2017-10-01 13:52 | Pulmonolgy Critical Care Note ---
Critical Care - Asmt/Plan Problems: (1) Respiratory failure Assessment & Plan: S/P palliative extubation 09/30, DNI but BiPAP ok (2) Septic shock (3) Aspiration pneumonia Assessment & Plan: MDR (proteus in acinetobacter) in sputum (4) Sepsis (5) UTI (urinary tract infection) Assessment & Plan: ESLB proteus (6) Renal failure (7) Feeding by G-tube (8) Acute encephalopathy (9) HCAP (healthcare-associated pneumonia) (10) s/p multiple lacunar strokes, old (11) recent L MCA ischemic stroke (12) Bacterial infection due to Staphylococcus Assessment & Plan: S capitis 09/19, repeat CX's NG Respiratory: monitor respiratory rate, other - PRN BiPAP, RTC and PRN DUOnebs, pulm hygiene/mobilize Cardiac: continue to monitor HR/BP Renal: F/U I&O, check electrolytes, other - lasix 20 IV x 1, repelte K Infectious Disease: continue antibiotics - per ID: Zosyn, Jose Ramon,Colistin Gastrointestinal: hold feedings - until RR stable Endocrine: monitor blood sugar, continue sliding scale insulin Neurologic: other - PRN MSO4 and Ativan Prophylaxis: Heparin, other - Famotodine Time Spent (Minutes): 50 Notes Reviewed: 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, cardio, renal, ID, other - DNAR/DNI Discussed with: nurses, consultants, family member Critical Care - Objective Last 24 Hour Vital Signs Date Time Temp Pulse Resp B/P (MAP) Pulse Ox O2 Delivery O2 Flow Rate FiO2 10/01/17 13:32 106 45 100 Bi-pap 30 10/01/17 13:23 100 39 100 Bi-pap 30 10/01/17 13:20 101 42 100 Facial 15.0 30 10/01/17 12:00 30 10/01/17 11:08 159/82 10/01/17 10:52 103 30 97 Facial 15.0 30 10/01/17 09:50 89 34 100 Nasal Cannula 2.0 10/01/17 09:39 28 10/01/17 09:39 86 30 99 Nasal Cannula 2.0 10/01/17 09:25 Nasal Cannula 2.0 10/01/17 09:23 72 16 100 Mechanical Ventilator 30 10/01/17 09:16 159/82 5/16/18 09:15 81 16 100 Mechanical Ventilator 30 516/18 08:01 99 5/16/18 08:00 76 19 159/82 100 Mechanical Ventilator 30 16/18 08:00 30 516/18 07:30 98.8 75 19 153/82 100 Mechanical Ventilator 30 98.8 516/18 07:25 72 18 100 Mechanical Ventilator 30 516/18 07:15 75 23 100 Mechanical Ventilator 30 516/18 07:13 75 23 30 516/18 07:00 19 516/18 07:00 69 19 146/76 100 Mechanical Ventilator 30 16/18 06:30 72 20 146/72 100 Mechanical Ventilator 30 16/18 06:00 66 19 162/85 100 Mechanical Ventilator 30 16/ 06:00 19 16/18 05:50 169/65 516/18 05:50 169/65 16/18 05:30 73 21 169/95 100 Mechanical Ventilator 30 10/01/18 05:00 66 20 196/104 100 Mechanical Ventilator 30 516/18 05:00 23 516/18 04:48 65 21 30 16/18 04:30 65 18 166/84 100 Mechanical Ventilator 30 16/18 04:00 30 16/18 04:00 19 16/18 04:00 98.5 65 19 170/86 100 Mechanical Ventilator 30 98.5 16/18 03:47 67 16/18 03:30 64 19 158/81 100 Mechanical Ventilator 30 16/18 03:30 66 26 30 516/18 03:00 17 516/18 03:00 62 17 161/80 100 Mechanical Ventilator 30 516/18 02:30 63 19 160/81 100 Mechanical Ventilator 30 516/18 02:00 63 20 152/77 100 Mechanical Ventilator 30 516/18 02:00 18 16/18 01:53 69 18 100 Mechanical Ventilator 30 516/18 01:51 62 16 100 Mechanical Ventilator 30 5/16/18 01:30 69 16 30 516/18 01:30 65 20 150/70 100 Mechanical Ventilator 30 516/18 01:00 19 516/18 01:00 63 19 152/70 99 Mechanical Ventilator 30 5/16/18 00:30 68 21 137/70 99 Mechanical Ventilator 30 10/01/17 00:00 22 10/01/17 00:00 30 10/01/17 00:00 98.5 68 22 158/75 99 Mechanical Ventilator 30 98.5 09/30/17 23:55 27 09/30/17 23:55 147/75 09/30/17 23:53 69 09/30/17 23:30 74 16 30 09/30/17 23:30 68 19 147/75 99 Mechanical Ventilator 30 09/30/17 23:00 68 20 149/79 100 Mechanical Ventilator 30 09/30/17 23:00 20 09/30/17 22:30 66 19 185/80 100 Mechanical Ventilator 30 09/30/17 22:29 174/83 09/30/17 22:00 66 17 174/83 100 Mechanical Ventilator 30 09/30/17 22:00 17 09/30/17 21:30 63 16 172/84 100 Mechanical Ventilator 30 09/30/17 21:01 69 17 30 09/30/17 21:00 67 20 147/67 100 Mechanical Ventilator 30 09/30/17 21:00 20 09/30/17 20:30 66 17 177/84 100 Mechanical Ventilator 30 09/30/17 20:00 65 19 100 Mechanical Ventilator 30 09/30/17 20:00 30 09/30/17 20:00 19 09/30/17 20:00 64 18 100 Mechanical Ventilator 30 09/30/17 20:00 65 17 174/84 99 Mechanical Ventilator 30 09/30/17 19:54 67 09/30/17 19:45 78 16 100 Mechanical Ventilator 30 09/30/17 19:30 66 19 30 09/30/17 19:30 74 16 100 Mechanical Ventilator 30 09/30/17 19:30 98.3 66 18 166/92 99 Mechanical Ventilator 30 98.3 09/30/17 19:00 65 17 158/62 99 Mechanical Ventilator 30 09/30/17 19:00 17 09/30/17 18:39 165/82 09/30/17 18:30 67 19 165/82 99 Mechanical Ventilator 30 09/30/17 18:00 18 09/30/17 18:00 64 18 154/80 100 Mechanical Ventilator 30 09/30/17 17:30 63 18 167/93 100 Mechanical Ventilator 30 5/15/18 17:00 63 18 158/84 100 Mechanical Ventilator 30 09/30/17 17:00 18 09/30/17 16:43 62 16 30 09/30/17 16:30 64 19 165/86 100 Mechanical Ventilator 30 09/30/17 16:00 30 09/30/17 16:00 98.5 64 19 170/88 100 Mechanical Ventilator 30 98.5 09/30/17 16:00 19 09/30/17 16:00 65 09/30/17 15:30 65 18 161/82 100 Mechanical Ventilator 30 09/30/17 15:00 65 20 153/81 100 Mechanical Ventilator 30 09/30/17 15:00 20 09/30/17 14:45 72 18 30 09/30/17 14:30 65 19 141/78 99 Mechanical Ventilator 30 09/30/17 14:00 65 19 143/80 100 Mechanical Ventilator 30 09/30/17 14:00 19 Status: obtunded, other - on BiPAP Condition: critical HEENT: atraumatic, normocephalic Lungs: rhonchi Heart: HR/BP stable Abdomen: soft, non-tender, active bowel sounds, feeding tube Extremities: no C/C/E Decubiti: location - sacrum, scrotum, stage - 3-4 Accucheck: 109 Blood Sugars: BS controlled Critical Care - Subjective ROS Limited/Unobtainable: Yes ICU Day: 12 Intubation Day: N/A Interval Events: Extubated, initially was doing fine, then inc WOB now on BiPAP + SOB no cough no F/C Condition: critical IV Access: PICC EKG Rhythm: Sinus Rhythm FI02: 30 Vent Support Breath Rate: 16 Vent Support Mode: CPAP Vent Tidal Volume: 450 Sputum Amount: Small PEEP: 5.0 PIP: 21 Tube Feeding Amount: 0 I&O: Intake and Output 09/30/17 10/01/17 19:00 07:00 Intake Total 829.45 ml 635.00 ml Output Total 690 ml 1735 ml Balance 139.45 ml -1100.00 ml Free Water 250 ml IV Total 66.45 ml 125.00 ml Tube Feeding 360 ml 330 ml Other 153 ml 180 ml Output Urine Total 640 ml 1635 ml Stool Total 50 ml 100 ml Subjective: Unable to obtain ET-Tube: 8.0 ET Position: 24 Labs: Laboratory Tests Test 10/01/17 03:30 White Blood Count 9.6 K/UL (4.8-10.8) Red Blood Count 3.47 M/UL (4.70-6.10) L Hemoglobin 9.0 G/DL (14.2-18.0) L Hematocrit 29.4 % (42.0-52.0) L Mean Corpuscular Volume 85 FL (80-99) Mean Corpuscular Hemoglobin 26.0 PG (27.0-31.0) L Mean Corpuscular Hemoglobin Concent 30.6 G/DL (32.0-36.0) L Red Cell Distribution Width 16.9 % (11.6-14.8) H Platelet Count 218 K/UL (150-450) Mean Platelet Volume 7.0 FL (6.5-10.1) Neutrophils (%) (Auto) 60.7 % (45.0-75.0) Lymphocytes (%) (Auto) 23.0 % (20.0-45.0) Monocytes (%) (Auto) 5.5 % (1.0-10.0) Eosinophils (%) (Auto) 10.5 % (0.0-3.0) H Basophils (%) (Auto) 0.3 % (0.0-2.0) Prothrombin Time 11.7 SEC (9.30-11.50) H Prothromb Time International Ratio 1.2 (0.9-1.1) H Activated Partial Thromboplast Time 35 SEC (23-33) H Sodium Level 147 MMOL/L (136-145) H Potassium Level 3.3 MMOL/L (3.5-5.1) L Chloride Level 109 MMOL/L (98-107) H Carbon Dioxide Level 33 MMOL/L (21-32) H Anion Gap 5 mmol/L (5-15) Blood Urea Nitrogen 31 mg/dL (7-18) H Creatinine 2.1 MG/DL (0.55-1.30) H Estimat Glomerular Filtration Rate mL/min (>60) Glucose Level 98 MG/DL (74-106) Calcium Level 9.4 MG/DL (8.5-10.1) CHRISTINA KIDD M.D. October 01, 2017 13:52
--- NOTE | 2017-10-01 14:40 | GI Progress Note ---
Assessment/Plan Problems: (1) Anemia ICD Codes: D64.9 - Anemia, unspecified SNOMED: 615812171 (2) Feeding by G-tube ICD Codes: Z93.1 - Gastrostomy status SNOMED: 495916426, 371557750 (3) Acute encephalopathy ICD Codes: G93.40 - Encephalopathy, unspecified SNOMED: 8795137 (4) Transaminitis ICD Codes: R74.0 - Nonspecific elevation of levels of transaminase and lactic acid dehydrogenase [LDH] SNOMED: 357741136, 089703126 (5) Diarrhea ICD Codes: R19.7 - Diarrhea, unspecified SNOMED: 42308856 Status: not improved, unchanged Status Narrative Discussed with Dr. Taveras. Assessment/Plan Assessment - Anemia - abnormal LFT - Resp failure - Renal failure - Sepsis - CVA / (R) taylor - dysphagia / GT - diarrhea Recommendations - H2B BID - dc reglan given renal insufficiency - Imodium prn - TF - check abd u/s - check OB, fu hep panel - transufse PRN - abx - s/p EGD/colon 07/2017 at [facility] (HH,polyps, diverticulosis) - fu labs The patient was seen and examined at bedside and all new and available data was reviewed in the patients chart. I agree with the above findings, impression and plan. (Patient seen earlier today. Signature stamp does not reflect patient encounter time.). - Villa Taveras MD Subjective Subjective limited Objective Last 24 Hour Vital Signs Date Time Temp Pulse Resp B/P (MAP) Pulse Ox O2 Delivery O2 Flow Rate FiO2 10/01/17 14:35 179/105 10/01/17 13:56 106 19 179/105 100 Mechanical Ventilator 30 10/01/17 13:32 106 45 100 Bi-pap 30 10/01/17 13:23 100 39 100 Bi-pap 30 10/01/17 13:20 101 42 100 Facial 15.0 30 10/01/17 13:00 103 19 163/93 100 Mechanical Ventilator 30 10/01/17 12:00 30 10/01/17 12:00 123 19 197/112 100 Mechanical Ventilator 30 10/01/17 11:08 159/82 10/01/17 11:00 97 19 186/106 100 Mechanical Ventilator 30 10/01/17 10:52 103 30 97 Facial 15.0 30 16/18 10:00 94 19 189/99 100 Mechanical Ventilator 30 16/18 09:50 89 34 100 Nasal Cannula 2.0 28 16/18 09:39 28 516/18 09:39 86 30 99 Nasal Cannula 2.0 28 16/18 09:25 Nasal Cannula 2.0 28 16/18 09:23 72 16 100 Mechanical Ventilator 30 16/18 09:16 159/82 516/18 09:15 81 16 100 Mechanical Ventilator 30 16/18 09:00 94 19 189/99 100 Mechanical Ventilator 30 10/01/18 08:01 99 16/18 08:00 76 19 159/82 100 Mechanical Ventilator 30 10/01/ 08:00 30 10/01/17 07:30 98.8 75 19 153/82 100 Mechanical Ventilator 30 98.8 10/01/17 07:25 72 18 100 Mechanical Ventilator 30 10/01/17 07:15 75 23 100 Mechanical Ventilator 30 10/01/ 07:13 75 23 30 10/01/17 07:00 19 16/18 07:00 69 19 146/76 100 Mechanical Ventilator 30 10/01/18 06:30 72 20 146/72 100 Mechanical Ventilator 30 10/01/ 06:00 66 19 162/85 100 Mechanical Ventilator 30 10/01/17 06:00 19 16/18 05:50 169/65 516/18 05:50 169/65 16/18 05:30 73 21 169/95 100 Mechanical Ventilator 30 10/01/18 05:00 66 20 196/104 100 Mechanical Ventilator 30 16/18 05:00 23 516/18 04:48 65 21 30 16/18 04:30 65 18 166/84 100 Mechanical Ventilator 30 16/18 04:00 30 16/18 04:00 19 16/18 04:00 98.5 65 19 170/86 100 Mechanical Ventilator 30 98.5 16/18 03:47 67 16/18 03:30 64 19 158/81 100 Mechanical Ventilator 30 16/18 03:30 66 26 30 16/18 03:00 17 516/18 03:00 62 17 161/80 100 Mechanical Ventilator 30 5/16/18 02:30 63 19 160/81 100 Mechanical Ventilator 30 10/01/17 02:00 63 20 152/77 100 Mechanical Ventilator 30 10/01/17 02:00 18 10/01/17 01:53 69 18 100 Mechanical Ventilator 30 10/01/17 01:51 62 16 100 Mechanical Ventilator 30 10/01/17 01:30 69 16 30 10/01/17 01:30 65 20 150/70 100 Mechanical Ventilator 30 10/01/17 01:00 19 10/01/17 01:00 63 19 152/70 99 Mechanical Ventilator 30 10/01/17 00:30 68 21 137/70 99 Mechanical Ventilator 30 10/01/17 00:00 22 10/01/17 00:00 30 10/01/17 00:00 98.5 68 22 158/75 99 Mechanical Ventilator 30 98.5 09/30/17 23:55 27 09/30/17 23:55 147/75 09/30/17 23:53 69 09/30/17 23:30 74 16 30 09/30/17 23:30 68 19 147/75 99 Mechanical Ventilator 30 09/30/17 23:00 68 20 149/79 100 Mechanical Ventilator 30 09/30/17 23:00 20 09/30/17 22:30 66 19 185/80 100 Mechanical Ventilator 30 09/30/17 22:29 174/83 09/30/17 22:00 66 17 174/83 100 Mechanical Ventilator 30 09/30/17 22:00 17 09/30/17 21:30 63 16 172/84 100 Mechanical Ventilator 30 09/30/17 21:01 69 17 30 09/30/17 21:00 67 20 147/67 100 Mechanical Ventilator 30 09/30/17 21:00 20 09/30/17 20:30 66 17 177/84 100 Mechanical Ventilator 30 09/30/17 20:00 65 19 100 Mechanical Ventilator 30 09/30/17 20:00 30 09/30/17 20:00 19 09/30/17 20:00 64 18 100 Mechanical Ventilator 30 09/30/17 20:00 65 17 174/84 99 Mechanical Ventilator 30 09/30/17 19:54 67 09/30/17 19:45 78 16 100 Mechanical Ventilator 30 09/30/17 19:30 66 19 30 09/30/17 19:30 74 16 100 Mechanical Ventilator 30 09/30/17 19:30 98.3 66 18 166/92 99 Mechanical Ventilator 30 98.3 09/30/17 19:00 65 17 158/62 99 Mechanical Ventilator 30 09/30/17 19:00 17 09/30/17 18:39 165/82 09/30/17 18:30 67 19 165/82 99 Mechanical Ventilator 30 09/30/17 18:00 18 09/30/17 18:00 64 18 154/80 100 Mechanical Ventilator 30 09/30/17 17:30 63 18 167/93 100 Mechanical Ventilator 30 09/30/17 17:00 63 18 158/84 100 Mechanical Ventilator 30 09/30/17 17:00 18 09/30/17 16:43 62 16 30 09/30/17 16:30 64 19 165/86 100 Mechanical Ventilator 30 09/30/17 16:00 30 09/30/17 16:00 98.5 64 19 170/88 100 Mechanical Ventilator 30 98.5 09/30/17 16:00 19 09/30/17 16:00 65 09/30/17 15:30 65 18 161/82 100 Mechanical Ventilator 30 09/30/17 15:00 65 20 153/81 100 Mechanical Ventilator 30 09/30/17 15:00 20 09/30/17 14:45 72 18 30 Intake and Output 09/30/17 10/01/17 19:00 07:00 Intake Total 829.45 ml 635.00 ml Output Total 690 ml 1735 ml Balance 139.45 ml -1100.00 ml Free Water 250 ml IV Total 66.45 ml 125.00 ml Tube Feeding 360 ml 330 ml Other 153 ml 180 ml Output Urine Total 640 ml 1635 ml Stool Total 50 ml 100 ml Laboratory Tests Test 10/01/17 03:30 White Blood Count 9.6 K/UL (4.8-10.8) Red Blood Count 3.47 M/UL (4.70-6.10) L Hemoglobin 9.0 G/DL (14.2-18.0) L Hematocrit 29.4 % (42.0-52.0) L Mean Corpuscular Volume 85 FL (80-99) Mean Corpuscular Hemoglobin 26.0 PG (27.0-31.0) L Mean Corpuscular Hemoglobin Concent 30.6 G/DL (32.0-36.0) L Red Cell Distribution Width 16.9 % (11.6-14.8) H Platelet Count 218 K/UL (150-450) Mean Platelet Volume 7.0 FL (6.5-10.1) Neutrophils (%) (Auto) 60.7 % (45.0-75.0) Lymphocytes (%) (Auto) 23.0 % (20.0-45.0) Monocytes (%) (Auto) 5.5 % (1.0-10.0) Eosinophils (%) (Auto) 10.5 % (0.0-3.0) H Basophils (%) (Auto) 0.3 % (0.0-2.0) Prothrombin Time 11.7 SEC (9.30-11.50) H Prothromb Time International Ratio 1.2 (0.9-1.1) H Activated Partial Thromboplast Time 35 SEC (23-33) H Sodium Level 147 MMOL/L (136-145) H Potassium Level 3.3 MMOL/L (3.5-5.1) L Chloride Level 109 MMOL/L (98-107) H Carbon Dioxide Level 33 MMOL/L (21-32) H Anion Gap 5 mmol/L (5-15) Blood Urea Nitrogen 31 mg/dL (7-18) H Creatinine 2.1 MG/DL (0.55-1.30) H Estimat Glomerular Filtration Rate mL/min (>60) Glucose Level 98 MG/DL (74-106) Calcium Level 9.4 MG/DL (8.5-10.1) Height (Feet): 5 Height (Inches): 8.00 Weight (Pounds): 206 General Appearance: mild distress Cardiovascular: normal rate Respiratory/Chest: other - on bipap Abdominal Exam: site - c/d/i, other Ramandeep Francois NP October 01, 2017 14:40
[2017-10-01] MEDS: Morphine Sulfate 4mg/ml Inj IVP PRN ×2 (14:41→22:36)
[2017-10-01] MEDS: Dyna-Hex 2% Top Sol 2oz TOPIC SCH (19:49)
[2017-10-01] MEDS ORDERED: Sterile Water Irrig 1000ml IRRIG ONE (22:13)
--- NOTE | 2017-10-01 22:24 | Internal Med Progress Note ---
Subjective Date of Service: October 01, 2017 Physician Name Staci Chacon Attending Physician Staci Chacon Past Medical History no change Past Surgical History no change Current Medications Medications (Trade) Dose Ordered Sig/Keira Route PRN Reason Start Time Stop Time Status Last Admin Dose Admin Acetaminophen (Tylenol) 650 mg Q6H PRN NG Mild Pain/Temp > 100.5 09/22/17 20:00 10/22/17 19:59 09/30/17 23:54 Albuterol/ Ipratropium (Albuterol/ Ipratropium) 3 ml Q4H PRN HHN Shortness of Breath 09/29/17 10:00 10/04/17 09:59 10/01/17 09:49 Albuterol/ Ipratropium (Albuterol/ Ipratropium) 3 ml Q6HRT HHN 09/29/17 13:00 10/02/17 12:59 10/01/17 19:04 Chlorhexidine Gluconate (Michelle-Hex 2%) 1 applic DAILY@1999 TOPIC 09/27/17 20:00 10/27/17 19:59 10/01/17 19:49 Colistimethate Sodium (Colistin *inhalation use only*) 75 mg Q12HR@10,22 INH 09/27/17 22:00 10/04/17 21:59 10/01/17 21:14 Dextrose (Dextrose 50%) 25 ml STAT PRN IV Hypoglycemia 09/19/17 14:15 10/19/17 14:14 Dextrose (Dextrose 50%) 50 ml STAT PRN IV Hypoglycemia 09/19/17 14:15 10/19/17 14:14 Famotidine (Pepcid I.v.) 20 mg Q12HR IVP 09/27/17 21:00 10/27/17 20:59 10/01/17 21:08 Fentanyl Citrate 1000 mcg/Sodium Chloride 100 ml @ 1.25 mls/hr Q24H IV 09/28/17 00:00 10/05/17 00:00 09/30/17 23:55 Heparin Sodium (Porcine) (Heparin 5000 units/ml) 5,000 units EVERY 12 HOURS SUBQ 09/27/17 21:00 10/27/17 20:59 10/01/17 21:10 Hydralazine HCl (Apresoline) 10 mg Q4H PRN IV SBP > 160mmHG 10/01/17 19:45 10/31/17 19:44 10/01/17 21:09 Insulin Aspart (NovoLOG) EVERY 6 HOURS SUBQ 09/22/17 00:00 10/19/17 16:29 09/30/17 23:56 Isosorbide Dinitrate (Isordil) 10 mg Q6HR NG 09/27/17 12:00 10/27/17 11:59 10/01/17 18:00 Loperamide HCl (Imodium) 2 mg Q6H PRN NG Diarrhea 09/25/17 11:30 10/25/17 11:29 Lorazepam (Ativan 2mg/ml 1ml) 1 mg Q4H PRN IV For Anxiety 10/01/17 11:45 10/08/17 11:44 10/01/17 21:25 Minocycline HCl (Minocin) 100 mg Q12HR ORAL 09/30/17 21:00 10/03/17 23:59 10/01/17 21:09 Morphine Sulfate (Morphine Sulfate) 4 mg Q4H PRN IVP PAIN 4-10 10/01/17 14:30 10/08/17 14:29 10/01/17 14:41 Nitroglycerin (Ntg) 1 patch Q24H TDERMAL 09/28/17 09:00 10/28/17 08:59 10/01/17 09:16 Piperacillin Sod/ Tazobactam Sod 2.25 gm/Dextrose 55 ml @ 110 mls/hr Q8HR IVPB 09/19/17 22:00 10/01/17 23:59 10/01/17 21:24 Allergies: Coded Allergies: No Known Allergies (Verified , 01/02/09) ROS Limited/Unobtainable: Yes - obtunded, on bipap Subjective remains intubated, off pressor Objective Last Vital Signs Date Time Temp Pulse Resp B/P (MAP) Pulse Ox O2 Delivery O2 Flow Rate FiO2 10/01/17 21:13 90 44 99 Mechanical Ventilator 30 10/01/17 21:09 185/107 10/01/17 20:00 98.0 98.0 10/01/17 15:16 15.0 General Appearance: lethargic, other - on bipap Neck: normal inspection Cardiovascular: normal rate, regular rhythm, no JVD Respiratory/Chest: no respiratory distress, decreased breath sounds, rhonchi - bilaterally, other - on bipap Abdomen: normal bowel sounds, non tender, soft, no mass Extremities: non-tender Neurologic: aphasia Skin: other - pressure sore Laboratory Tests Test 10/01/17 03:30 White Blood Count 9.6 K/UL (4.8-10.8) Red Blood Count 3.47 M/UL (4.70-6.10) L Hemoglobin 9.0 G/DL (14.2-18.0) L Hematocrit 29.4 % (42.0-52.0) L Mean Corpuscular Volume 85 FL (80-99) Mean Corpuscular Hemoglobin 26.0 PG (27.0-31.0) L Mean Corpuscular Hemoglobin Concent 30.6 G/DL (32.0-36.0) L Red Cell Distribution Width 16.9 % (11.6-14.8) H Platelet Count 218 K/UL (150-450) Mean Platelet Volume 7.0 FL (6.5-10.1) Neutrophils (%) (Auto) 60.7 % (45.0-75.0) Lymphocytes (%) (Auto) 23.0 % (20.0-45.0) Monocytes (%) (Auto) 5.5 % (1.0-10.0) Eosinophils (%) (Auto) 10.5 % (0.0-3.0) H Basophils (%) (Auto) 0.3 % (0.0-2.0) Prothrombin Time 11.7 SEC (9.30-11.50) H Prothromb Time International Ratio 1.2 (0.9-1.1) H Activated Partial Thromboplast Time 35 SEC (23-33) H Sodium Level 147 MMOL/L (136-145) H Potassium Level 3.3 MMOL/L (3.5-5.1) L Chloride Level 109 MMOL/L (98-107) H Carbon Dioxide Level 33 MMOL/L (21-32) H Anion Gap 5 mmol/L (5-15) Blood Urea Nitrogen 31 mg/dL (7-18) H Creatinine 2.1 MG/DL (0.55-1.30) H Estimat Glomerular Filtration Rate mL/min (>60) Glucose Level 98 MG/DL (74-106) Calcium Level 9.4 MG/DL (8.5-10.1) Intake and Output 09/30/17 10/01/17 19:00 07:00 Intake Total 829.45 ml 635.00 ml Output Total 690 ml 1735 ml Balance 139.45 ml -1100.00 ml Free Water 250 ml IV Total 66.45 ml 125.00 ml Tube Feeding 360 ml 330 ml Other 153 ml 180 ml Output Urine Total 640 ml 1635 ml Stool Total 50 ml 100 ml Assessment/Plan Assessment/Plan MPRESSION: 1. Acute respiratory failure, s/p extubation per family, on BIPAP 2. MDR Pneumonia likely aspiration pneumonia versus healthcare associated pneumonia. 3. Severe dehydration. 4. Hypernatremia. 5. Hyperkalemia. 6. Acute on chronic renal failure stage 3. 7. Uremia due to prerenal. 8. Transaminitis. 9. Elevated lipase. 10. Severe protein-calorie malnutrition. 11. History of chronic CVA with right hemiparesis. 13. History of organic brain disease. 14. History of advanced dementia. 15. Status post gastrostomy tube placement. 16. History of neurogenic bladder/chronic indwelling Matson catheter. 17. Hyperlipidemia. 18. Coronary artery disease. 19. poor venous access PLAN: intensive care unit. BIPAP k replete IV lasix as needed lyte replete Pulmonary nebulizer. PRBC tx as needed DVT and GI prophylaxis. IV abx Matson catheter. Aspiration precaution. electrolytes replete as indicated. enteral feeding as tolerated FULL CODE over 35 min spent in critical care in ICU d/w business information consultant Staci Chacon MD [phone] STACI CHACON October 01, 2017 22:24
[2017-10-02] VITALS (15 sets, daily range): BP systolic 133–180; BP diastolic 69–90
[2017-10-02] MEDS: fentaNYL Citrate 1000 MCG in NS 100ml IV SCH ×2
[2017-10-02] MEDS: Albuterol/Ipratropium 3ml neb HHN SCH ×3 (01:08→20:13)
[2017-10-02] MEDS: LORazepam Inj 2mg/ml 1ml IV PRN ×2 (01:49→06:34)
[2017-10-02] MEDS: Morphine Sulfate 4mg/ml Inj IVP PRN ×2 (03:23→08:09)
[2017-10-02] MEDS: NovoLOG Insulin Flexpen SUBQ SCH ×4 (06:00→17:36)
[2017-10-02] MEDS: Minocycline HCl 50mg cap ORAL SCH ×2 (08:38→21:32)
[2017-10-02] MEDS: Nitroglycerin Patch 0.4mg TDERMAL SCH (08:38)
[2017-10-02] MEDS: Heparin 5000 units/ml inj SUBQ SCH ×2 (08:39→21:31)
--- NOTE | 2017-10-02 10:12 | Infectious Diseases Prog Note ---
Assessment/Plan Assessment/Plan A: Sepsis/septic shock off pressors Bacteremia with Staph capitis/ contamination Pneumonia with MDR Acinetobacter & Proteus UTI with Proteus treated Respiratory failure ATN DM Anemia Elevated transaminase DNR, DNI P: , Continue Minocycline & Colistin inhaler Poor prognosis Subjective ROS Limited/Unobtainable: Yes Allergies: Coded Allergies: No Known Allergies (Verified , 01/02/09) Objective Vital Signs Last 24 Hour Vital Signs Date Time Temp Pulse Resp B/P (MAP) Pulse Ox O2 Delivery O2 Flow Rate FiO2 10/02/17 10:00 80 44 161/87 99 Mechanical Ventilator 40 10/02/17 09:11 76 46 100 Facial 30 10/02/17 09:00 98.1 81 35 160/83 100 Mechanical Ventilator 40 98.1 10/02/17 08:38 139/76 10/02/17 08:02 84 46 180/90 92 Mechanical Ventilator 10/02/17 08:00 40 10/02/17 08:00 82 10/02/17 07:18 84 48 98 Bi-pap 30 10/02/17 07:07 85 45 100 Bi-pap 40 10/02/17 07:05 84 47 100 Facial 40 10/02/17 07:00 99.0 84 44 161/83 96 Mechanical Ventilator 40 99.0 10/02/17 07:00 86 41 151/83 99 Mechanical Ventilator 40 10/02/17 06:34 172/88 10/02/17 06:00 82 46 161/83 97 Mechanical Ventilator 60 10/02/17 06:00 161/82 10/02/17 05:00 84 46 156/84 97 Mechanical Ventilator 60 10/02/17 04:45 83 47 99 Facial 40 10/02/17 04:00 60 10/02/17 04:00 98.0 84 46 152/82 98 Mechanical Ventilator 30 98.0 10/02/17 04:00 84 10/02/17 03:00 85 44 140/70 97 Mechanical Ventilator 60 10/02/17 02:39 87 47 99 Facial 30 10/02/17 02:00 87 45 153/77 99 Mechanical Ventilator 30 10/02/17 01:49 165/84 10/02/17 01:48 165/84 10/02/17 01:10 84 44 100 Bi-pap 30 10/02/17 01:06 84 45 99 Bi-pap 30 10/02/17 01:06 84 47 99 Facial 30 18 01:00 84 45 147/82 99 Mechanical Ventilator 30 10/02/17 00:00 98.1 91 46 163/85 98 Mechanical Ventilator 30 98.1 18 00:00 91 18 00:00 43 18 00:00 30 1618 23:24 93 45 98 Facial 30 18 23:00 97 48 134/83 96 Mechanical Ventilator 30 10/01/17 22:00 112 47 187/104 97 Mechanical Ventilator 30 10/01/17 21:23 94 45 100 Bi-pap 30 10/01/17 21:13 90 44 99 Mechanical Ventilator 30 10/01/17 21:12 98 50 99 Facial 30 10/01/17 21:09 185/107 18 21:00 90 48 185/107 99 Mechanical Ventilator 30 10/01/17 20:00 30 10/01/17 20:00 98.0 90 50 163/91 99 Mechanical Ventilator 30 98.0 10/01/17 20:00 90 10/01/17 19:18 84 44 98 Bi-pap 30 10/01/17 19:06 92 48 98 Bi-pap 30 10/01/17 19:04 92 48 98 30 10/01/17 19:00 82 19 150/55 100 Mechanical Ventilator 30 18 18:00 146/81 18 18:00 86 19 159/94 100 Mechanical Ventilator 30 18 17:00 91 19 142/86 100 Mechanical Ventilator 30 18 16:00 95 10/01/17 16:00 30 18 16:00 97 19 146/81 100 Mechanical Ventilator 30 18 15:16 98 44 97 Facial 15.0 30 1618 15:11 98.8 16/18 15:00 99 19 126/75 100 Mechanical Ventilator 30 18 14:41 98.8 16/18 14:35 179/105 16/18 13:56 106 19 179/105 100 Mechanical Ventilator 30 16/18 13:32 106 45 100 Bi-pap 30 1618 13:23 100 39 100 Bi-pap 30 18 13:20 101 42 100 Facial 15.0 30 10/01/17 13:00 103 19 163/93 100 Mechanical Ventilator 30 10/01/17 12:00 30 10/01/17 12:00 105 10/01/17 12:00 123 19 197/112 100 Mechanical Ventilator 30 10/01/17 11:08 159/82 10/01/17 11:00 97 19 186/106 100 Mechanical Ventilator 30 10/01/17 10:52 103 30 97 Facial 15.0 30 Height (Feet): 5 Height (Inches): 8.00 Weight (Pounds): 206 HEENT: other - on BIPAP Respiratory/Chest: respiratory distress, decreased breath sounds Cardiovascular: normal rate, other - PICC line Abdomen: soft, non tender, other - GT in place Extremities: no edema Neurologic/Psychiatric: unresponsiveness Current Medications Medications (Trade) Dose Ordered Sig/Keira Route PRN Reason Start Time Stop Time Status Last Admin Dose Admin Acetaminophen (Tylenol) 650 mg Q6H PRN NG Mild Pain/Temp > 100.5 09/22/17 20:00 10/22/17 19:59 09/30/17 23:54 Albuterol/ Ipratropium (Albuterol/ Ipratropium) 3 ml Q4H PRN HHN Shortness of Breath 09/29/17 10:00 10/04/17 09:59 10/01/17 09:49 Albuterol/ Ipratropium (Albuterol/ Ipratropium) 3 ml Q6HRT HHN 09/29/17 13:00 10/02/17 12:59 10/02/17 07:07 Chlorhexidine Gluconate (Michelle-Hex 2%) 1 applic DAILY@1999 TOPIC 09/27/17 20:00 10/27/17 19:59 10/01/17 19:49 Colistimethate Sodium (Colistin *inhalation use only*) 75 mg Q12HR@ INH 09/27/17 22:00 10/04/17 21:59 10/01/17 21:14 Dextrose (Dextrose 50%) 25 ml STAT PRN IV Hypoglycemia 09/19/17 14:15 10/19/17 14:14 Dextrose (Dextrose 50%) 50 ml STAT PRN IV Hypoglycemia 09/19/17 14:15 10/19/17 14:14 Famotidine (Pepcid I.v.) 20 mg Q12HR IVP 09/27/17 21:00 10/27/17 20:59 10/02/17 08:38 Fentanyl Citrate 1000 mcg/Sodium Chloride 100 ml @ 1.25 mls/hr Q24H IV 09/28/17 00:00 10/05/17 00:00 09/30/17 23:55 Heparin Sodium (Porcine) (Heparin 5000 units/ml) 5,000 units EVERY 12 HOURS SUBQ 09/27/17 21:00 10/27/17 20:59 10/02/17 08:39 Hydralazine HCl (Apresoline) 10 mg Q4H PRN IV SBP > 160mmHG 10/01/17 19:45 10/31/17 19:44 10/02/17 06:34 Insulin Aspart (NovoLOG) EVERY 6 HOURS SUBQ 09/22/17 00:00 10/19/17 16:29 09/30/17 23:56 Isosorbide Dinitrate (Isordil) 10 mg Q6HR NG 09/27/17 12:00 10/27/17 11:59 10/02/17 01:48 Loperamide HCl (Imodium) 2 mg Q6H PRN NG Diarrhea 09/25/17 11:30 10/25/17 11:29 Lorazepam (Ativan 2mg/ml 1ml) 1 mg Q4H PRN IV For Anxiety 10/01/17 11:45 10/08/17 11:44 10/02/17 06:34 Minocycline HCl (Minocin) 100 mg Q12HR ORAL 09/30/17 21:00 10/03/17 23:59 10/02/17 08:38 Morphine Sulfate (Morphine Sulfate) 4 mg Q4H PRN IVP PAIN 4-10 10/01/17 14:30 10/08/17 14:29 10/02/17 08:09 Nitroglycerin (Ntg) 1 patch Q24H TDERMAL 09/28/17 09:00 10/28/17 08:59 10/02/17 08:38 ANDRES SAVAGE October 02, 2017 10:12
[2017-10-02] MEDS: Colistin for inhalation INH SCH ×2 (10:27→21:59)
--- NOTE | 2017-10-02 11:57 | GI Progress Note ---
Assessment/Plan Problems: (1) Anemia ICD Codes: D64.9 - Anemia, unspecified SNOMED: 509944015 (2) Feeding by G-tube ICD Codes: Z93.1 - Gastrostomy status SNOMED: 299804696, 233931577 (3) Acute encephalopathy ICD Codes: G93.40 - Encephalopathy, unspecified SNOMED: 6681835 (4) Transaminitis ICD Codes: R74.0 - Nonspecific elevation of levels of transaminase and lactic acid dehydrogenase [LDH] SNOMED: 961624636, 421390427 (5) Diarrhea ICD Codes: R19.7 - Diarrhea, unspecified SNOMED: 27369135 Status: unchanged Status Narrative Discussed with Dr. Taveras. Assessment/Plan Assessment - Anemia - abnormal LFT - Resp failure - Renal failure - Sepsis - CVA / (R) taylor - dysphagia / GT - diarrhea Recommendations - H2B BID - dc reglan given renal insufficiency - Imodium prn - TF - check abd u/s - check OB, fu hep panel - transufse PRN - abx - s/p EGD/colon 07/2017 at [facility] (HH,polyps, diverticulosis) - fu labs The patient was seen and examined at bedside and all new and available data was reviewed in the patients chart. I agree with the above findings, impression and plan. (Patient seen earlier today. Signature stamp does not reflect patient encounter time.). - Villa Taveras MD Subjective Subjective limited Objective Last 24 Hour Vital Signs Date Time Temp Pulse Resp B/P (MAP) Pulse Ox O2 Delivery O2 Flow Rate FiO2 10/02/17 11:00 78 42 154/75 99 Mechanical Ventilator 40 10/02/17 10:38 93 40 100 Bi-pap 30 10/02/17 10:31 155/79 10/02/17 10:30 74 40 100 Facial 30 10/02/17 10:27 74 40 99 Mechanical Ventilator 30 10/02/17 10:00 80 44 161/87 99 Mechanical Ventilator 40 10/02/17 09:11 76 46 100 Facial 30 10/02/17 09:00 98.1 81 35 160/83 100 Mechanical Ventilator 40 98.1 10/02/17 08:38 139/76 10/02/17 08:02 84 46 180/90 92 Mechanical Ventilator 10/02/17 08:00 40 10/02/17 08:00 82 10/02/17 07:18 84 48 98 Bi-pap 30 10/02/17 07:07 85 45 100 Bi-pap 40 10/02/17 07:05 84 47 100 Facial 40 10/02/17 07:00 99.0 84 44 161/83 96 Mechanical Ventilator 40 99.0 10/02/17 07:00 86 41 151/83 99 Mechanical Ventilator 40 18 06:34 172/88 10/02/17 06:00 82 46 161/83 97 Mechanical Ventilator 60 10/02/17 06:00 161/82 10/02/17 05:00 84 46 156/84 97 Mechanical Ventilator 60 10/02/17 04:45 83 47 99 Facial 40 10/02/17 04:00 60 10/02/17 04:00 98.0 84 46 152/82 98 Mechanical Ventilator 30 98.0 10/02/17 04:00 84 10/02/17 03:00 85 44 140/70 97 Mechanical Ventilator 60 10/02/17 02:39 87 47 99 Facial 30 10/02/17 02:00 87 45 153/77 99 Mechanical Ventilator 30 10/02/17 01:49 165/84 10/02/17 01:48 165/84 10/02/17 01:10 84 44 100 Bi-pap 30 10/02/17 01:06 84 45 99 Bi-pap 30 10/02/17 01:06 84 47 99 Facial 30 10/02/17 01:00 84 45 147/82 99 Mechanical Ventilator 30 10/02/17 00:00 98.1 91 46 163/85 98 Mechanical Ventilator 30 98.1 10/02/17 00:00 91 18 00:00 43 10/02/17 00:00 30 10/01/17 23:24 93 45 98 Facial 30 18 23:00 97 48 134/83 96 Mechanical Ventilator 30 10/01/17 22:00 112 47 187/104 97 Mechanical Ventilator 30 10/01/ 21:23 94 45 100 Bi-pap 30 10/01/18 21:13 90 44 99 Mechanical Ventilator 30 16/18 21:12 98 50 99 Facial 30 16/18 21:09 185/107 10/01/18 21:00 90 48 185/107 99 Mechanical Ventilator 30 5/16/18 20:00 30 10/01/17 20:00 98.0 90 50 163/91 99 Mechanical Ventilator 30 98.0 10/01/17 20:00 90 10/01/17 19:18 84 44 98 Bi-pap 30 10/01/17 19:06 92 48 98 Bi-pap 30 10/01/17 19:04 92 48 98 30 10/01/17 19:00 82 19 150/55 100 Mechanical Ventilator 30 10/01/17 18:00 146/81 10/01/17 18:00 86 19 159/94 100 Mechanical Ventilator 30 10/01/17 17:00 91 19 142/86 100 Mechanical Ventilator 30 10/01/17 16:00 95 10/01/17 16:00 30 10/01/17 16:00 97 19 146/81 100 Mechanical Ventilator 30 10/01/17 15:16 98 44 97 Facial 15.0 30 10/01/17 15:11 98.8 10/01/17 15:00 99 19 126/75 100 Mechanical Ventilator 30 10/01/17 14:41 98.8 10/01/17 14:35 179/105 10/01/17 13:56 106 19 179/105 100 Mechanical Ventilator 30 10/01/17 13:32 106 45 100 Bi-pap 30 10/01/17 13:23 100 39 100 Bi-pap 30 10/01/17 13:20 101 42 100 Facial 15.0 30 10/01/17 13:00 103 19 163/93 100 Mechanical Ventilator 30 10/01/17 12:00 30 10/01/17 12:00 105 10/01/17 12:00 123 19 197/112 100 Mechanical Ventilator 30 Intake and Output 10/01/17 10/02/17 19:00 07:00 Intake Total 56.25 ml 0 ml Output Total 1400 ml 945 ml Balance -1343.75 ml -945 ml IV Total 56.25 ml Tube Feeding 0 ml 0 ml Output Urine Total 1400 ml 945 ml # Bowel Movements 50 Height (Feet): 5 Height (Inches): 8.00 Weight (Pounds): 206 General Appearance: other - mech vent Respiratory/Chest: normal breath sounds Abdominal Exam: soft, GT site - c/d/i Ramandeep Francois [facility]IN[facility] ADMINISTRATOR October 02, 2017 11:57
[2017-10-02] MEDS ORDERED: Albuterol/Ipratropium 3ml neb HHN SCH (13:00)
[2017-10-02] MEDS ORDERED: cloNIDine 0.2mg Tab GT SCH (13:00)
--- NOTE | 2017-10-02 13:01 | Nephrology Progress Note ---
Assessment/Plan Problem List: (1) ATN (acute tubular necrosis) (2) Septic shock (3) Respiratory failure (4) Diabetes mellitus Assessment Acute Renal failure- Cr lower ? Underlying CKD Component of dehydration, Pre renal state and Hypernatremia Acute respiratory failure, Aspiartion Pneumonia, UTI Septic Shock H/O Multiple Strokes Anemia Elevated Troponin Hyperglycemia PEG Plan extubated- on BIPAP BP high will put on BP meds with parameters continue comfort care- previous plans: transfused add isordil Pulm support Hydrate- avoid nephrotoxics Monitor renal parameters Hemodynamic support IV iron Nitro and asa GT feeding Subjective ROS Limited/Unobtainable: No Constitutional: Reports: malaise, weakness Objective Objective Last 24 Hour Vital Signs Date Time Temp Pulse Resp B/P (MAP) Pulse Ox O2 Delivery O2 Flow Rate FiO2 10/02/17 12:49 154/76 10/02/17 12:49 154/76 10/02/17 12:00 40 10/02/17 12:00 98.5 91 44 172/80 98 Mechanical Ventilator 40 98.5 10/02/17 11:00 78 42 154/75 99 Mechanical Ventilator 40 10/02/17 10:38 93 40 100 Bi-pap 30 10/02/17 10:31 155/79 10/02/17 10:30 74 40 100 Facial 30 10/02/17 10:27 74 40 99 Mechanical Ventilator 30 10/02/17 10:00 80 44 161/87 99 Mechanical Ventilator 40 10/02/17 09:11 76 46 100 Facial 30 10/02/17 09:00 98.1 81 35 160/83 100 Mechanical Ventilator 40 98.1 10/02/17 08:38 139/76 10/02/17 08:02 84 46 180/90 92 Mechanical Ventilator 10/02/17 08:00 40 10/02/17 08:00 82 10/02/17 07:18 84 48 98 Bi-pap 30 10/02/17 07:07 85 45 100 Bi-pap 40 10/02/17 07:05 84 47 100 Facial 40 10/02/17 07:00 99.0 84 44 161/83 96 Mechanical Ventilator 40 99.0 10/02/17 07:00 86 41 151/83 99 Mechanical Ventilator 40 10/02/17 06:34 172/88 10/02/17 06:00 82 46 161/83 97 Mechanical Ventilator 60 10/02/17 06:00 161/82 10/02/17 05:00 84 46 156/84 97 Mechanical Ventilator 60 18 04:45 83 47 99 Facial 40 10/02/17 04:00 60 10/02/17 04:00 98.0 84 46 152/82 98 Mechanical Ventilator 30 98.0 10/02/17 04:00 84 10/02/17 03:00 85 44 140/70 97 Mechanical Ventilator 60 10/02/17 02:39 87 47 99 Facial 30 10/02/17 02:00 87 45 153/77 99 Mechanical Ventilator 30 10/02/17 01:49 165/84 10/02/17 01:48 165/84 10/02/17 01:10 84 44 100 Bi-pap 30 10/02/17 01:06 84 45 99 Bi-pap 30 10/02/17 01:06 84 47 99 Facial 30 10/02/17 01:00 84 45 147/82 99 Mechanical Ventilator 30 10/02/17 00:00 98.1 91 46 163/85 98 Mechanical Ventilator 30 98.1 10/02/17 00:00 91 10/02/17 00:00 43 10/02/17 00:00 30 10/01/17 23:24 93 45 98 Facial 30 10/01/17 23:00 97 48 134/83 96 Mechanical Ventilator 30 10/01/17 22:00 112 47 187/104 97 Mechanical Ventilator 30 10/01/17 21:23 94 45 100 Bi-pap 30 10/01/17 21:13 90 44 99 Mechanical Ventilator 30 10/01/17 21:12 98 50 99 Facial 30 10/01/17 21:09 185/107 10/01/17 21:00 90 48 185/107 99 Mechanical Ventilator 30 10/01/17 20:00 30 10/01/17 20:00 98.0 90 50 163/91 99 Mechanical Ventilator 30 98.0 10/01/17 20:00 90 10/01/17 19:18 84 44 98 Bi-pap 30 10/01/17 19:06 92 48 98 Bi-pap 30 10/01/17 19:04 92 48 98 30 10/01/17 19:00 82 19 150/55 100 Mechanical Ventilator 30 10/01/17 18:00 146/81 10/01/17 18:00 86 19 159/94 100 Mechanical Ventilator 30 10/01/17 17:00 91 19 142/86 100 Mechanical Ventilator 30 10/01/17 16:00 95 10/01/17 16:00 30 10/01/17 16:00 97 19 146/81 100 Mechanical Ventilator 30 10/01/17 15:16 98 44 97 Facial 15.0 30 10/01/17 15:11 98.8 10/01/17 15:00 99 19 126/75 100 Mechanical Ventilator 30 10/01/17 14:41 98.8 10/01/17 14:35 179/105 10/01/17 13:56 106 19 179/105 100 Mechanical Ventilator 30 10/01/17 13:32 106 45 100 Bi-pap 30 10/01/17 13:23 100 39 100 Bi-pap 30 10/01/17 13:20 101 42 100 Facial 15.0 30 10/01/17 13:00 103 19 163/93 100 Mechanical Ventilator 30 Intake and Output 10/01/17 10/02/17 19:00 07:00 Intake Total 56.25 ml 0 ml Output Total 1400 ml 945 ml Balance -1343.75 ml -945 ml IV Total 56.25 ml Tube Feeding 0 ml 0 ml Output Urine Total 1400 ml 945 ml # Bowel Movements 50 Height (Feet): 5 Height (Inches): 8.00 Weight (Pounds): 206 General Appearance: mild distress EENT: other - on bipap Cardiovascular: tachycardia Respiratory/Chest: decreased breath sounds Abdomen: distended Objective no other change ROSE MARY REID October 02, 2017 13:01
[2017-10-02] MEDS ORDERED: HydrALAZINE 25mg tab ORAL PRN ×2 (13:08→15:01)
--- NOTE | 2017-10-02 13:10 | Pulmonolgy Critical Care Note ---
Critical Care - Asmt/Plan Problems: (1) Respiratory failure Assessment & Plan: S/P palliative extubation 09/30, DNI but BiPAP ok (2) Septic shock (3) Aspiration pneumonia Assessment & Plan: MDR (proteus in acinetobacter) in sputum (4) Sepsis (5) UTI (urinary tract infection) Assessment & Plan: ESLB proteus (6) Renal failure (7) Feeding by G-tube (8) Acute encephalopathy (9) HCAP (healthcare-associated pneumonia) (10) s/p multiple lacunar strokes, old (11) recent L MCA ischemic stroke (12) Bacterial infection due to Staphylococcus Assessment & Plan: S capitis 09/19, repeat CX's NG Respiratory: monitor respiratory rate, adjust FIO2, CXR, ABG, other - Continue BiPAP 04/22, check ABG and adjust accordingly Cardiac: continue to monitor HR/BP Renal: F/U I&O, check electrolytes Infectious Disease: continue antibiotics - per ID Gastrointestinal: hold feedings - until respiratory status stable Endocrine: monitor blood sugar, continue sliding scale insulin Hematologic: monitor H/H Neurologic: keep patient comfortable Prophylaxis: Heparin, other - Famotodine Disposition: transfer to - [facility] Time Spent (Minutes): 60 Notes Reviewed: video library assistant, cardio, renal, other - DNAR/DNI Discussed with: nurses, consultants, behavioral health case manager, family member Critical Care - Objective Last 24 Hour Vital Signs Date Time Temp Pulse Resp B/P (MAP) Pulse Ox O2 Delivery O2 Flow Rate FiO2 10/02/17 12:49 154/76 10/02/17 12:49 154/76 10/02/17 12:00 40 10/02/17 12:00 98.5 91 44 172/80 98 Mechanical Ventilator 40 98.5 10/02/17 11:00 78 42 154/75 99 Mechanical Ventilator 40 10/02/17 10:38 93 40 100 Bi-pap 30 10/02/17 10:31 155/79 10/02/17 10:30 74 40 100 Facial 30 10/02/17 10:27 74 40 99 Mechanical Ventilator 30 10/02/17 10:00 80 44 161/87 99 Mechanical Ventilator 40 10/02/17 09:11 76 46 100 Facial 30 10/02/17 09:00 98.1 81 35 160/83 100 Mechanical Ventilator 40 98.1 10/02/17 08:38 139/76 5/17/18 08:02 84 46 180/90 92 Mechanical Ventilator 10/02/17 08:00 40 18 08:00 82 10/02/17 07:18 84 48 98 Bi-pap 30 10/02/17 07:07 85 45 100 Bi-pap 40 10/02/17 07:05 84 47 100 Facial 40 10/02/17 07:00 99.0 84 44 161/83 96 Mechanical Ventilator 40 99.0 10/02/17 07:00 86 41 151/83 99 Mechanical Ventilator 40 18 06:34 172/88 10/02/17 06:00 82 46 161/83 97 Mechanical Ventilator 60 10/02/17 06:00 161/82 10/02/17 05:00 84 46 156/84 97 Mechanical Ventilator 60 10/02/17 04:45 83 47 99 Facial 40 10/02/17 04:00 60 10/02/17 04:00 98.0 84 46 152/82 98 Mechanical Ventilator 30 98.0 10/02/17 04:00 84 10/02/17 03:00 85 44 140/70 97 Mechanical Ventilator 60 10/02/17 02:39 87 47 99 Facial 30 10/02/17 02:00 87 45 153/77 99 Mechanical Ventilator 30 10/02/17 01:49 165/84 10/02/17 01:48 165/84 10/02/17 01:10 84 44 100 Bi-pap 30 10/02/17 01:06 84 45 99 Bi-pap 30 10/02/17 01:06 84 47 99 Facial 30 10/02/17 01:00 84 45 147/82 99 Mechanical Ventilator 30 10/02/17 00:00 98.1 91 46 163/85 98 Mechanical Ventilator 30 98.1 10/02/17 00:00 91 18 00:00 43 10/02/17 00:00 30 18 23:24 93 45 98 Facial 30 10/01/17 23:00 97 48 134/83 96 Mechanical Ventilator 30 10/01/18 22:00 112 47 187/104 97 Mechanical Ventilator 30 16/18 21:23 94 45 100 Bi-pap 30 10/01/ 21:13 90 44 99 Mechanical Ventilator 30 10/01/18 21:12 98 50 99 Facial 30 10/01/17 21:09 185/107 10/01/17 21:00 90 48 185/107 99 Mechanical Ventilator 30 10/01/17 20:00 30 10/01/17 20:00 98.0 90 50 163/91 99 Mechanical Ventilator 30 98.0 10/01/17 20:00 90 10/01/17 19:18 84 44 98 Bi-pap 30 10/01/17 19:06 92 48 98 Bi-pap 30 10/01/17 19:04 92 48 98 30 10/01/17 19:00 82 19 150/55 100 Mechanical Ventilator 30 10/01/17 18:00 146/81 10/01/17 18:00 86 19 159/94 100 Mechanical Ventilator 30 10/01/17 17:00 91 19 142/86 100 Mechanical Ventilator 30 10/01/17 16:00 95 10/01/17 16:00 30 10/01/17 16:00 97 19 146/81 100 Mechanical Ventilator 30 10/01/17 15:16 98 44 97 Facial 15.0 30 10/01/17 15:11 98.8 10/01/17 15:00 99 19 126/75 100 Mechanical Ventilator 30 10/01/17 14:41 98.8 10/01/17 14:35 179/105 10/01/17 13:56 106 19 179/105 100 Mechanical Ventilator 30 10/01/17 13:32 106 45 100 Bi-pap 30 10/01/17 13:23 100 39 100 Bi-pap 30 10/01/17 13:20 101 42 100 Facial 15.0 30 Status: obtunded Condition: critical HEENT: atraumatic, normocephalic, other - BiPAP Lungs: rhonchi - coarse B Heart: HR/BP stable Abdomen: soft, non-tender, active bowel sounds, feeding tube Extremities: no C/C/E Decubiti: location - sacrum, penis, stage - 3 Accucheck: 81 Blood Sugars: BS controlled Critical Care - Subjective ROS Limited/Unobtainable: Yes ICU Day: 12 Intubation Day: BiPAP Interval Events: Remains on BiPAP 12/5, FiO2 30, RR 40's, AFVSS o/w Obtunded, TF's held Condition: critical IV Access: PICC EKG Rhythm: Sinus Rhythm FI02: 40 Vent Support Breath Rate: 16 Vent Support Mode: CPAP Vent Tidal Volume: 450 Sputum Amount: None PEEP: 5.0 PIP: 21 Tube Feeding Amount: 0 I&O: Intake and Output 10/01/17 10/02/17 19:00 07:00 Intake Total 56.25 ml 0 ml Output Total 1400 ml 945 ml Balance -1343.75 ml -945 ml IV Total 56.25 ml Tube Feeding 0 ml 0 ml Output Urine Total 1400 ml 945 ml # Bowel Movements 50 Subjective: Unable to obtain ET-Tube: 8.0 ET Position: 24 CHRISTINA KIDD M.D. October 02, 2017 13:10
--- NOTE | 2017-10-02 14:45 | Diagnostic Imaging Report ---
Indication: Dyspnea Technique: One view of the chest Comparison: 09/29/2017 Findings: Suboptimal inspiration. There is again demonstrated is suggestion of bilateral small pleural effusions. There is bibasilar atelectasis. Mild interstitial congestive changes persist, stable. Left arm PICC again demonstrated Impression: Unchanged, over 3 days, findings as above.
[2017-10-02] MEDS ORDERED: Acetaminophen 650mg/20.3ml NG PRN (14:58)
[2017-10-02] MEDS ORDERED: Albuterol/Ipratropium 3ml neb HHN PRN (15:00)
[2017-10-02] MEDS ORDERED: LORazepam Inj 2mg/ml 1ml IV PRN (15:02)
[2017-10-02] MEDS ORDERED: Morphine Sulfate 4mg/ml Inj IVP PRN (15:03)
--- NOTE | 2017-10-02 20:52 | Internal Med Progress Note ---
Subjective Date of Service: October 02, 2017 Physician Name Staci Chacon Attending Physician Staci Chacon Past Medical History no change Past Surgical History no change Current Medications Medications (Trade) Dose Ordered Sig/Keira Route PRN Reason Start Time Stop Time Status Last Admin Dose Admin Acetaminophen (Tylenol) 650 mg Q6H PRN NG Mild Pain/Temp > 100.5 10/02/17 14:58 10/22/17 14:57 Albuterol/ Ipratropium (Albuterol/ Ipratropium) 3 ml Q4H PRN HHN Shortness of Breath 10/02/17 15:00 10/04/17 14:59 Albuterol/ Ipratropium (Albuterol/ Ipratropium) 3 ml Q6HRT HHN 10/02/17 19:00 10/07/17 12:59 10/02/17 20:13 Amlodipine Besylate (Norvasc) 5 mg BID ORAL 10/02/17 18:00 11/01/17 17:59 10/02/17 17:35 Chlorhexidine Gluconate (Michelle-Hex 2%) 1 applic DAILY@2000 TOPIC 10/02/17 20:00 10/27/17 19:59 Clonidine HCl (Catapres Tab) 0.1 mg Q6H GT 10/02/17 18:30 11/01/17 18:29 10/02/17 18:32 Colistimethate Sodium (Colistin *inhalation use only*) 75 mg Q12HR@10,22 INH 10/02/17 22:00 10/04/17 21:59 Dextrose (Dextrose 50%) 25 ml STAT PRN IV Hypoglycemia 10/02/17 14:58 11/01/17 14:57 Dextrose (Dextrose 50%) 50 ml STAT PRN IV Hypoglycemia 10/02/17 14:58 11/01/17 14:57 Famotidine (Pepcid) 20 mg BID GT 10/02/17 18:00 11/01/17 17:59 10/02/17 17:35 Heparin Sodium (Porcine) (Heparin 5000 units/ml) 5,000 units EVERY 12 HOURS SUBQ 10/02/17 21:00 10/27/17 20:59 Hydralazine HCl (Apresoline) 25 mg Q4H PRN ORAL bp over 160 syst 10/02/17 15:01 6/16/18 15:00 Insulin Aspart (NovoLOG) EVERY 6 HOURS SUBQ 10/02/17 18:00 10/19/17 16:29 Loperamide HCl (Imodium) 2 mg Q6H PRN NG Diarrhea 10/02/17 15:02 10/25/17 15:01 Lorazepam (Ativan 2mg/ml 1ml) 1 mg Q4H PRN IV For Anxiety 10/02/17 15:02 10/09/17 15:01 Minocycline HCl (Minocin) 100 mg Q12HR ORAL 10/02/17 21:00 10/03/17 23:59 Morphine Sulfate (Morphine Sulfate) 4 mg Q4H PRN IVP PAIN 4-10 10/02/17 15:03 10/08/17 15:02 Allergies: Coded Allergies: No Known Allergies (Verified , 01/02/09) ROS Limited/Unobtainable: Yes - obtunded Subjective remains intubated, off pressor Objective Last Vital Signs Date Time Temp Pulse Resp B/P (MAP) Pulse Ox O2 Delivery O2 Flow Rate FiO2 10/02/17 20:44 62 34 94 Facial 40 10/02/17 18:32 142/73 10/02/17 16:00 98.7 98.7 10/01/17 15:16 15.0 General Appearance: lethargic, other - obtuded Cardiovascular: tachycardia, systolic murmur Respiratory/Chest: respiratory distress, decreased breath sounds, rhonchi - bilaterally Abdomen: normal bowel sounds, non tender, soft, hypoactive bowel sounds Extremities: non-tender, normal inspection, no calf tenderness Edema: mild edema Neurologic: unresponsiveness, aphasia Intake and Output 10/01/17 10/02/17 19:00 07:00 Intake Total 56.25 ml 0 ml Output Total 1400 ml 945 ml Balance -1343.75 ml -945 ml IV Total 56.25 ml Tube Feeding 0 ml 0 ml Output Urine Total 1400 ml 945 ml # Bowel Movements 50 Assessment/Plan Status: not improved, unchanged Assessment/Plan MPRESSION: 1. Acute respiratory failure, s/p extubation per family, on BIPAP DNR/DNI 2. MDR Pneumonia likely aspiration pneumonia versus healthcare associated pneumonia. 3. Severe dehydration. 4. Hypernatremia. 5. Hyperkalemia. 6. Acute on chronic renal failure stage 3. 7. Uremia due to prerenal. 8. Transaminitis. 9. Elevated lipase. 10. Severe protein-calorie malnutrition. 11. History of chronic CVA with right hemiparesis. 13. History of organic brain disease. 14. History of advanced dementia. 15. Status post gastrostomy tube placement. 16. History of neurogenic bladder/chronic indwelling Matson catheter. 17. Hyperlipidemia. 18. Coronary artery disease. 19. poor venous access PLAN: intensive care unit. BIPAP, DNI, DNR k replete DNI/DNR IV lasix lyte replete Pulmonary nebulizer. PRBC tx as needed DVT and GI prophylaxis. abx Matson catheter. Aspiration precaution. electrolytes replete as indicated. enteral feeding as tolerated family meeting took place 10/01----> DNR/DNI over 35 min spent in critical care in ICU d/w web consultant Staci Chacon MD [phone] STACI CHACON October 02, 2017 20:52
[2017-10-02] MEDS: Dyna-Hex 2% Top Sol 2oz TOPIC SCH (20:59)
[2017-10-03] VITALS (7 sets, daily range): BP systolic 128–180; BP diastolic 72–93
[2017-10-03] MEDS: Albuterol/Ipratropium 3ml neb HHN SCH ×4 (02:15→19:20)
[2017-10-03 03:39] LABS: BASOPHILS % (AUTO) 0.5 % (0.0-2.0); HEMATOCRIT 32.7 % (42.0-52.0); HEMOGLOBIN 10.1 G/DL (14.2-18.0); LYMPHOCYTES % (AUTO) 22.2 % (20.0-45.0); MEAN CORPUSCULAR VOLUME 86 FL (80-99); MONOCYTES % (AUTO) 5.8 % (1.0-10.0); NEUTROPHILS % (AUTO) 62.6 % (45.0-75.0); PLATELET COUNT 226 K/UL (150-450); RED BLOOD COUNT 3.82 M/UL (4.70-6.10); RED CELL DISTRIBUTION WIDTH 17.3 % (11.6-14.8); WHITE BLOOD COUNT 9.3 K/UL (4.8-10.8)
[2017-10-03 03:56] LABS: ALANINE AMINOTRANSFERASE 36 U/L (12-78); ALBUMIN 1.8 G/DL (3.4-5.0); ALBUMIN/GLOBULIN RATIO 0.3 (1.0-2.7); ALKALINE PHOSPHATASE 76 U/L (46-116); ANION GAP 5 mmol/L (5-15); ASPARTATE AMINO TRANSFERASE 23 U/L (15-37); BILIRUBIN,TOTAL 0.4 MG/DL (0.2-1.0); BLOOD UREA NITROGEN 32 mg/dL (7-18); CALCIUM 9.6 MG/DL (8.5-10.1); CARBON DIOXIDE 33 MMOL/L (21-32); CHLORIDE 108 MMOL/L (98-107); CREATININE 2.1 MG/DL (0.55-1.30); POTASSIUM 4.2 MMOL/L (3.5-5.1); SODIUM 146 MMOL/L (136-145)
[2017-10-03] MEDS: NovoLOG Insulin Flexpen SUBQ SCH ×5 (06:00→23:59)
[2017-10-03] MEDS: Colistin for inhalation INH SCH ×2 (08:39→22:01)
--- NOTE | 2017-10-03 08:53 | Pulmonology Progress Note ---
Assessment/Plan Problems: (1) Pneumonia (2) Aspiration pneumonia (3) Respiratory failure (4) Feeding by G-tube (5) Acute encephalopathy (6) s/p multiple lacunar strokes, old (7) Encephalopathy due to infection (8) Bacterial infection due to Staphylococcus (9) Diabetes mellitus (10) Anemia Assessment/Plan -Optimize pulmonary hygiene/mobilize as tolerated -Titrate down FiO2 to keep SaO2 > 90% -Change BiPAP to PRN & qHS, attempt to wean off -Continue Abx (PAM & INH COLISTIN) per ID -Monitor volumes and renal function, start D5W @ 50, lasix 20 IV x 1 -Check SPEP and UPEP given high TP and low ALB -If stable off BiPAP later today will start TF's back -DVT Px: Hep SQ -DNAR/DNI D/W RT, RN and family @ bedside Subjective Allergies: Coded Allergies: No Known Allergies (Verified , 01/02/09) Subjective Tx'd to [facility] Stable on BiPAP, FiO2 30, RR better now 20-30 7.37/56/114/32/98 No change in MS, no cough, no SOB, no F/C, TF's have been held -2.3 Objective Last 24 Hour Vital Signs Date Time Temp Pulse Resp B/P (MAP) Pulse Ox O2 Delivery O2 Flow Rate FiO2 10/03/17 08:37 80 27 95 Facial 30 10/03/17 07:29 82 29 94 Bi-pap 30 10/03/17 07:23 79 31 92 Facial 30 10/03/17 07:22 82 29 93 Bi-pap 30 10/03/17 06:02 155/90 10/03/17 05:05 92 31 95 Facial 30 10/03/17 04:00 97.5 68 28 150/90 98 Bi-pap 30 97.5 10/03/17 04:00 30 10/03/17 04:00 66 10/03/17 03:08 63 24 97 Facial 30 10/03/17 02:15 62 27 98 Bi-pap 30 10/03/17 02:00 70 30 96 Facial 30 10/03/17 02:00 70 30 96 Bi-pap 30 10/03/17 00:19 155/86 10/03/17 00:00 66 10/03/17 00:00 30 10/03/17 00:00 97.2 72 28 155/86 98 Bi-pap 30 97.2 18 22:39 30 18 22:32 66 36 97 Facial 30 10/02/17 22:09 66 26 99 Bi-pap 30 10/02/18 22:00 68 28 96 Bi-pap 40 18 20:44 62 34 94 Facial 40 10/02/17 20:08 88 26 98 Bi-pap 40 10/02/17 20:00 40 10/02/17 20:00 97.4 62 28 141/74 93 Bi-pap 40 97.4 10/02/17 19:59 86 32 96 Facial 40 18 19:59 86 32 96 Bi-pap 40 18 19:28 64 18 18:32 142/73 18 17:35 84 133/69 10/02/17 17:01 84 37 95 Facial 40 10/02/17 16:00 98.7 69 19 133/69 95 Mechanical Ventilator 40 98.7 10/02/17 16:00 69 10/02/17 16:00 40 10/02/17 15:00 81 37 92 Facial 40 10/02/17 13:14 81 40 92 Bi-pap 40 10/02/17 13:05 Bi-pap 40 10/02/17 13:05 Bi-pap 30 10/02/17 13:01 83 43 94 Facial 30 10/02/17 12:49 154/76 10/02/17 12:49 154/76 10/02/17 12:00 98 10/02/17 12:00 40 10/02/17 12:00 98.5 91 44 172/80 98 Mechanical Ventilator 40 98.5 10/02/17 11:00 78 42 154/75 99 Mechanical Ventilator 40 10/02/17 10:38 93 40 100 Bi-pap 30 10/02/17 10:31 155/79 10/02/17 10:30 74 40 100 Facial 30 18 10:27 74 40 99 Mechanical Ventilator 30 18 10:00 80 44 161/87 99 Mechanical Ventilator 40 10/02/17 09:11 76 46 100 Facial 30 10/02/17 09:00 98.1 81 35 160/83 100 Mechanical Ventilator 40 98.1 Intake and Output 10/02/17 10/03/17 19:00 07:00 Intake Total 0 ml Output Total 800 ml 650 ml Balance -800 ml -650 ml Tube Feeding 0 ml Output Urine Total 800 ml 650 ml # Bowel Movements 185 50 General Appearance: no acute distress, cachetic, other - non-verbal HEENT: normocephalic, mucous membranes moist Respiratory/Chest: crackles/rales - scattered @ bases Cardiovascular: normal peripheral pulses, normal rate, regular rhythm Abdomen: normal bowel sounds, soft, non tender, no organomegaly, non distended , other - GT CDI Extremities: no cyanosis, no clubbing, no edema Skin: ulcers - stage 3 scrotum and sacrum Laboratory Tests 10/02/17 21:40: Arterial Blood pH 7.370, Arterial Blood Partial Pressure CO2 56.5*H, Arterial Blood Partial Pressure O2 114.4H, Arterial Blood HCO3 32.1H, Arterial Blood Oxygen Saturation 98.2H, Arterial Blood Base Excess 5.6, Librado Test Positive 10/03/17 03:00: White Blood Count 9.3, Red Blood Count 3.82L, Hemoglobin 10.1L, Hematocrit 32.7L , Mean Corpuscular Volume 86, Mean Corpuscular Hemoglobin 26.3L, Mean Corpuscular Hemoglobin Concent 30.8L, Red Cell Distribution Width 17.3H, Platelet Count 226, Mean Platelet Volume 6.7, Neutrophils (%) (Auto) 62.6, Lymphocytes (%) (Auto) 22.2, Monocytes (%) (Auto) 5.8, Eosinophils (%) (Auto) 9.0H, Basophils (%) (Auto) 0.5, Sodium Level 146H, Potassium Level 4.2, Chloride Level 108H, Carbon Dioxide Level 33H, Anion Gap 5, Blood Urea Nitrogen 32H, Creatinine 2.1H, Estimat Glomerular Filtration Rate , Glucose Level 85, Calcium Level 9.6, Total Bilirubin 0.4, Aspartate Amino Transf (AST/SGOT) 23, Alanine Aminotransferase (ALT/SGPT) 36, Alkaline Phosphatase 76, Total Protein 8.4H, Albumin 1.8L, Globulin 6.6, Albumin/Globulin Ratio 0.3L Current Medications Medications (Trade) Dose Ordered Sig/Keira Route PRN Reason Start Time Stop Time Status Last Admin Dose Admin Acetaminophen (Tylenol) 650 mg Q6H PRN NG Mild Pain/Temp > 100.5 10/02/17 14:58 10/22/17 14:57 Albuterol/ Ipratropium (Albuterol/ Ipratropium) 3 ml Q4H PRN HHN Shortness of Breath 10/02/17 15:00 10/04/17 14:59 Albuterol/ Ipratropium (Albuterol/ Ipratropium) 3 ml Q6HRT HHN 10/02/17 19:00 10/07/17 12:59 10/03/17 07:21 Amlodipine Besylate (Norvasc) 5 mg BID ORAL 10/02/17 18:00 11/01/17 17:59 10/02/17 17:35 Chlorhexidine Gluconate (Michelle-Hex 2%) 1 applic DAILY@2000 TOPIC 10/02/17 20:00 10/27/17 19:59 10/02/17 20:59 Clonidine HCl (Catapres Tab) 0.1 mg Q6H GT 10/02/17 18:30 11/01/17 18:29 10/03/17 06:02 Colistimethate Sodium (Colistin *inhalation use only*) 75 mg Q12HR@10,22 INH 10/02/17 22:00 10/04/17 21:59 10/03/17 08:39 Dextrose (Dextrose 50%) 25 ml STAT PRN IV Hypoglycemia 10/02/17 14:58 11/01/17 14:57 Dextrose (Dextrose 50%) 50 ml STAT PRN IV Hypoglycemia 10/02/17 14:58 11/01/17 14:57 Famotidine (Pepcid) 20 mg BID GT 10/02/17 18:00 11/01/17 17:59 10/02/17 17:35 Heparin Sodium (Porcine) (Heparin 5000 units/ml) 5,000 units EVERY 12 HOURS SUBQ 10/02/17 21:00 10/27/17 20:59 10/02/17 21:31 Hydralazine HCl (Apresoline) 25 mg Q4H PRN ORAL bp over 160 syst 10/02/17 15:01 11/01/17 15:00 Insulin Aspart (NovoLOG) EVERY 6 HOURS SUBQ 10/02/17 18:00 10/19/17 16:29 Loperamide HCl (Imodium) 2 mg Q6H PRN NG Diarrhea 10/02/17 15:02 10/25/17 15:01 Lorazepam (Ativan 2mg/ml 1ml) 1 mg Q4H PRN IV For Anxiety 10/02/17 15:02 10/09/17 15:01 Minocycline HCl (Minocin) 100 mg Q12HR ORAL 10/02/17 21:00 10/03/17 23:59 10/02/17 21:32 Morphine Sulfate (Morphine Sulfate) 4 mg Q4H PRN IVP PAIN 4-10 10/02/17 15:03 10/08/17 15:02 CHRISTINA KIDD M.D. October 03, 2017 08:53
[2017-10-03] MEDS: Minocycline HCl 50mg cap ORAL SCH ×2 (09:11→20:31)
[2017-10-03] MEDS: Heparin 5000 units/ml inj SUBQ SCH ×2 (09:18→20:40)
--- NOTE | 2017-10-03 11:13 | GI Progress Note ---
Assessment/Plan Problems: (1) Anemia ICD Codes: D64.9 - Anemia, unspecified SNOMED: 326293896 (2) Feeding by G-tube ICD Codes: Z93.1 - Gastrostomy status SNOMED: 198816046, 248278772 (3) Acute encephalopathy ICD Codes: G93.40 - Encephalopathy, unspecified SNOMED: 0283969 (4) Transaminitis ICD Codes: R74.0 - Nonspecific elevation of levels of transaminase and lactic acid dehydrogenase [LDH] SNOMED: 226531861, 793425882 (5) Diarrhea ICD Codes: R19.7 - Diarrhea, unspecified SNOMED: 58421394 Status: stable Status Narrative Discussed with Dr. Taveras. Assessment/Plan Assessment - Anemia - abnormal LFT - Resp failure - Renal failure - Sepsis - CVA / (R) taylor - dysphagia / GT - diarrhea Recommendations - H2B BID - dc reglan given renal insufficiency - Imodium prn - TF - check abd u/s - check OB, fu hep panel - transufse PRN - abx - s/p EGD/colon 07/2017 at [facility] (HH,polyps, diverticulosis) - fu labs The patient was seen and examined at bedside and all new and available data was reviewed in the patients chart. I agree with the above findings, impression and plan. (Patient seen earlier today. Signature stamp does not reflect patient encounter time.). - Villa Taveras MD Subjective Subjective limited Objective Last 24 Hour Vital Signs Date Time Temp Pulse Resp B/P (MAP) Pulse Ox O2 Delivery O2 Flow Rate FiO2 10/03/17 09:12 77 180/93 10/03/17 08:57 82 29 96 Bi-pap 30 10/03/17 08:47 80 29 94 Bi-pap 30 10/03/17 08:37 80 27 95 Facial 30 10/03/17 07:53 70 10/03/17 07:29 82 29 94 Bi-pap 30 10/03/17 07:23 79 31 92 Facial 30 10/03/17 07:22 82 29 93 Bi-pap 30 10/03/17 06:02 155/90 10/03/17 05:05 92 31 95 Facial 30 10/03/17 04:00 97.5 68 28 150/90 98 Bi-pap 30 97.5 10/03/17 04:00 30 5/18/18 04:00 66 10/03/17 03:08 63 24 97 Facial 30 10/03/17 02:15 62 27 98 Bi-pap 30 10/03/17 02:00 70 30 96 Facial 30 10/03/17 02:00 70 30 96 Bi-pap 30 10/03/17 00:19 155/86 18 00:00 66 10/03/17 00:00 30 10/03/17 00:00 97.2 72 28 155/86 98 Bi-pap 30 97.2 10/02/17 22:39 30 10/02/17 22:32 66 36 97 Facial 30 10/02/17 22:09 66 26 99 Bi-pap 30 10/02/17 22:00 68 28 96 Bi-pap 40 10/02/17 20:44 62 34 94 Facial 40 10/02/17 20:08 88 26 98 Bi-pap 40 10/02/17 20:00 40 10/02/17 20:00 97.4 62 28 141/74 93 Bi-pap 40 97.4 10/02/17 19:59 86 32 96 Facial 40 10/02/17 19:59 86 32 96 Bi-pap 40 10/02/17 19:28 64 18 18:32 142/73 10/02/17 17:35 84 133/69 10/02/17 17:01 84 37 95 Facial 40 10/02/17 16:00 98.7 69 19 133/69 95 Mechanical Ventilator 40 98.7 10/02/17 16:00 69 10/02/17 16:00 40 10/02/17 15:00 81 37 92 Facial 40 10/02/17 13:14 81 40 92 Bi-pap 40 10/02/17 13:05 Bi-pap 40 10/02/17 13:05 Bi-pap 30 10/02/17 13:01 83 43 94 Facial 30 10/02/17 12:49 154/76 10/02/17 12:49 154/76 10/02/17 12:00 98 10/02/17 12:00 40 10/02/17 12:00 98.5 91 44 172/80 98 Mechanical Ventilator 40 98.5 Intake and Output 10/02/17 10/03/17 19:00 07:00 Intake Total 0 ml Output Total 800 ml 650 ml Balance -800 ml -650 ml Tube Feeding 0 ml Output Urine Total 800 ml 650 ml # Bowel Movements 185 50 Laboratory Tests Test 10/02/17 21:40 10/03/17 03:00 Arterial Blood pH 7.370 (7.350-7.450) Arterial Blood Partial Pressure CO2 56.5 mmHg (35.0-45.0) *H Arterial Blood Partial Pressure O2 114.4 mmHg (75.0-100.0) H Arterial Blood HCO3 32.1 mmol/L (22.0-26.0) H Arterial Blood Oxygen Saturation 98.2 % (92.0-98.0) H Arterial Blood Base Excess 5.6 Librado Test Positive White Blood Count 9.3 K/UL (4.8-10.8) Red Blood Count 3.82 M/UL (4.70-6.10) L Hemoglobin 10.1 G/DL (14.2-18.0) L Hematocrit 32.7 % (42.0-52.0) L Mean Corpuscular Volume 86 FL (80-99) Mean Corpuscular Hemoglobin 26.3 PG (27.0-31.0) L Mean Corpuscular Hemoglobin Concent 30.8 G/DL (32.0-36.0) L Red Cell Distribution Width 17.3 % (11.6-14.8) H Platelet Count 226 K/UL (150-450) Mean Platelet Volume 6.7 FL (6.5-10.1) Neutrophils (%) (Auto) 62.6 % (45.0-75.0) Lymphocytes (%) (Auto) 22.2 % (20.0-45.0) Monocytes (%) (Auto) 5.8 % (1.0-10.0) Eosinophils (%) (Auto) 9.0 % (0.0-3.0) H Basophils (%) (Auto) 0.5 % (0.0-2.0) Sodium Level 146 MMOL/L (136-145) H Potassium Level 4.2 MMOL/L (3.5-5.1) Chloride Level 108 MMOL/L (98-107) H Carbon Dioxide Level 33 MMOL/L (21-32) H Anion Gap 5 mmol/L (5-15) Blood Urea Nitrogen 32 mg/dL (7-18) H Creatinine 2.1 MG/DL (0.55-1.30) H Estimat Glomerular Filtration Rate mL/min (>60) Glucose Level 85 MG/DL (74-106) Calcium Level 9.6 MG/DL (8.5-10.1) Total Bilirubin 0.4 MG/DL (0.2-1.0) Aspartate Amino Transf (AST/SGOT) 23 U/L (15-37) Alanine Aminotransferase (ALT/SGPT) 36 U/L (12-78) Alkaline Phosphatase 76 U/L (46-116) Total Protein 8.4 G/DL (6.4-8.2) H Albumin 1.8 G/DL (3.4-5.0) L Globulin 6.6 g/dL Albumin/Globulin Ratio 0.3 (1.0-2.7) L Height (Feet): 5 Height (Inches): 8.00 Weight (Pounds): 206 General Appearance: WD/WN, no apparent distress, alert Cardiovascular: normal rate Respiratory/Chest: normal breath sounds, no respiratory distress, other - 2LNC Abdominal Exam: normal bowel sounds, non tender, soft Extremities: non-tender Ramandeep Francois NP October 03, 2017 11:13
--- NOTE | 2017-10-03 12:06 | Infectious Diseases Prog Note ---
Assessment/Plan Assessment/Plan A: Sepsis/septic shock resolved Bacteremia with Staph capitis/ contamination Pneumonia with MDR Acinetobacter & Proteus UTI with Proteus treated Respiratory failure resolved ATN DM Anemia Elevated transaminase DNR, DNI P: Continue Minocycline & Colistin inhaler until tomorrow Subjective ROS Limited/Unobtainable: Yes Constitutional: Reports: other - doing better Respiratory: Reports: other - off BIPAP Allergies: Coded Allergies: No Known Allergies (Verified , 01/02/09) Objective Vital Signs Last 24 Hour Vital Signs Date Time Temp Pulse Resp B/P (MAP) Pulse Ox O2 Delivery O2 Flow Rate FiO2 10/03/17 09:12 77 180/93 10/03/17 08:57 82 29 96 Bi-pap 30 10/03/17 08:47 80 29 94 Bi-pap 30 10/03/17 08:37 80 27 95 Facial 30 10/03/17 08:00 98.8 77 28 180/93 98 Bi-pap 30 98.8 10/03/17 08:00 30 10/03/17 07:53 70 10/03/17 07:29 82 29 94 Bi-pap 30 10/03/17 07:23 79 31 92 Facial 30 10/03/17 07:22 82 29 93 Bi-pap 30 10/03/17 06:02 155/90 10/03/17 05:05 92 31 95 Facial 30 10/03/17 04:00 97.5 68 28 150/90 98 Bi-pap 30 97.5 10/03/17 04:00 30 10/03/17 04:00 66 10/03/17 03:08 63 24 97 Facial 30 10/03/17 02:15 62 27 98 Bi-pap 30 10/03/17 02:00 70 30 96 Facial 30 10/03/17 02:00 70 30 96 Bi-pap 30 10/03/17 00:19 155/86 10/03/17 00:00 66 10/03/17 00:00 30 10/03/17 00:00 97.2 72 28 155/86 98 Bi-pap 30 97.2 10/02/17 22:39 30 10/02/17 22:32 66 36 97 Facial 30 10/02/17 22:09 66 26 99 Bi-pap 30 10/02/17 22:00 68 28 96 Bi-pap 40 10/02/17 20:44 62 34 94 Facial 40 10/02/17 20:08 88 26 98 Bi-pap 40 10/02/17 20:00 40 10/02/17 20:00 97.4 62 28 141/74 93 Bi-pap 40 97.4 10/02/17 19:59 86 32 96 Facial 40 10/02/17 19:59 86 32 96 Bi-pap 40 10/02/17 19:28 64 10/02/17 18:32 142/73 10/02/17 17:35 84 133/69 10/02/17 17:01 84 37 95 Facial 40 10/02/17 16:00 98.7 69 19 133/69 95 Mechanical Ventilator 40 98.7 10/02/17 16:00 69 10/02/17 16:00 40 10/02/17 15:00 81 37 92 Facial 40 10/02/17 13:14 81 40 92 Bi-pap 40 10/02/17 13:05 Bi-pap 40 10/02/17 13:05 Bi-pap 30 10/02/17 13:01 83 43 94 Facial 30 10/02/17 12:49 154/76 10/02/17 12:49 154/76 Height (Feet): 5 Height (Inches): 8.00 Weight (Pounds): 206 General Appearance: no acute distress HEENT: mucous membranes moist Respiratory/Chest: lungs clear, other - O2 by nasal cannula Cardiovascular: normal rate, other - left arm PICC line Abdomen: soft, non tender, other - GT & rectal tube Extremities: no edema Neurologic/Psychiatric: other - awake, on restraint Laboratory Tests Test 10/02/17 21:40 10/03/17 03:00 Arterial Blood pH 7.370 (7.350-7.450) Arterial Blood Partial Pressure CO2 56.5 mmHg (35.0-45.0) *H Arterial Blood Partial Pressure O2 114.4 mmHg (75.0-100.0) H Arterial Blood HCO3 32.1 mmol/L (22.0-26.0) H Arterial Blood Oxygen Saturation 98.2 % (92.0-98.0) H Arterial Blood Base Excess 5.6 Librado Test Positive White Blood Count 9.3 K/UL (4.8-10.8) Red Blood Count 3.82 M/UL (4.70-6.10) L Hemoglobin 10.1 G/DL (14.2-18.0) L Hematocrit 32.7 % (42.0-52.0) L Mean Corpuscular Volume 86 FL (80-99) Mean Corpuscular Hemoglobin 26.3 PG (27.0-31.0) L Mean Corpuscular Hemoglobin Concent 30.8 G/DL (32.0-36.0) L Red Cell Distribution Width 17.3 % (11.6-14.8) H Platelet Count 226 K/UL (150-450) Mean Platelet Volume 6.7 FL (6.5-10.1) Neutrophils (%) (Auto) 62.6 % (45.0-75.0) Lymphocytes (%) (Auto) 22.2 % (20.0-45.0) Monocytes (%) (Auto) 5.8 % (1.0-10.0) Eosinophils (%) (Auto) 9.0 % (0.0-3.0) H Basophils (%) (Auto) 0.5 % (0.0-2.0) Sodium Level 146 MMOL/L (136-145) H Potassium Level 4.2 MMOL/L (3.5-5.1) Chloride Level 108 MMOL/L (98-107) H Carbon Dioxide Level 33 MMOL/L (21-32) H Anion Gap 5 mmol/L (5-15) Blood Urea Nitrogen 32 mg/dL (7-18) H Creatinine 2.1 MG/DL (0.55-1.30) H Estimat Glomerular Filtration Rate mL/min (>60) Glucose Level 85 MG/DL (74-106) Calcium Level 9.6 MG/DL (8.5-10.1) Total Bilirubin 0.4 MG/DL (0.2-1.0) Aspartate Amino Transf (AST/SGOT) 23 U/L (15-37) Alanine Aminotransferase (ALT/SGPT) 36 U/L (12-78) Alkaline Phosphatase 76 U/L (46-116) Total Protein 8.4 G/DL (6.4-8.2) H Albumin 1.8 G/DL (3.4-5.0) L Globulin 6.6 g/dL Albumin/Globulin Ratio 0.3 (1.0-2.7) L Current Medications Medications (Trade) Dose Ordered Sig/Keira Route PRN Reason Start Time Stop Time Status Last Admin Dose Admin Acetaminophen (Tylenol) 650 mg Q6H PRN NG Mild Pain/Temp > 100.5 10/02/17 14:58 10/22/17 14:57 Albuterol/ Ipratropium (Albuterol/ Ipratropium) 3 ml Q4H PRN HHN Shortness of Breath 10/02/17 15:00 10/04/17 14:59 Albuterol/ Ipratropium (Albuterol/ Ipratropium) 3 ml Q6HRT HHN 10/02/17 19:00 10/07/17 12:59 10/03/17 07:21 Amlodipine Besylate (Norvasc) 5 mg BID ORAL 10/02/17 18:00 11/01/17 17:59 10/03/17 09:12 Chlorhexidine Gluconate (Michelle-Hex 2%) 1 applic DAILY@2000 TOPIC 10/02/17 20:00 10/27/17 19:59 10/02/17 20:59 Clonidine HCl (Catapres Tab) 0.1 mg Q6H GT 10/02/17 18:30 11/01/17 18:29 10/03/17 06:02 Colistimethate Sodium (Colistin *inhalation use only*) 75 mg Q12HR@10,22 INH 10/02/17 22:00 10/04/17 21:59 10/03/17 08:39 Dextrose 1,000 ml @ 50 mls/hr Q20H IV 10/03/17 10:00 11/02/17 09:59 Dextrose (Dextrose 50%) 25 ml STAT PRN IV Hypoglycemia 10/02/17 14:58 11/01/17 14:57 Dextrose (Dextrose 50%) 50 ml STAT PRN IV Hypoglycemia 10/02/17 14:58 11/01/17 14:57 Famotidine (Pepcid) 20 mg BID GT 10/02/17 18:00 11/01/17 17:59 10/03/17 09:10 Furosemide (Lasix) 20 mg ONCE IV 10/03/17 10:00 10/03/17 12:30 Heparin Sodium (Porcine) (Heparin 5000 units/ml) 5,000 units EVERY 12 HOURS SUBQ 10/02/17 21:00 10/27/17 20:59 10/03/17 09:18 Hydralazine HCl (Apresoline) 25 mg Q4H PRN ORAL bp over 160 syst 10/02/17 15:01 11/01/17 15:00 Insulin Aspart (NovoLOG) EVERY 6 HOURS SUBQ 10/02/17 18:00 10/19/17 16:29 Loperamide HCl (Imodium) 2 mg Q6H PRN NG Diarrhea 10/02/17 15:02 10/25/17 15:01 Lorazepam (Ativan 2mg/ml 1ml) 1 mg Q4H PRN IV For Anxiety 10/02/17 15:02 10/09/17 15:01 Minocycline HCl (Minocin) 100 mg Q12HR ORAL 10/02/17 21:00 10/03/17 23:59 10/03/17 09:11 Morphine Sulfate (Morphine Sulfate) 4 mg Q4H PRN IVP PAIN 4-10 10/02/17 15:03 10/08/17 15:02 ANDRES SAVAGE October 03, 2017 12:06
--- NOTE | 2017-10-03 13:40 | Internal Med Progress Note ---
Subjective Date of Service: October 03, 2017 Physician Name Cesario Chacon Attending Physician Cesario Chacon Past Medical History no change Past Surgical History no change Current Medications Medications (Trade) Dose Ordered Sig/Keira Route PRN Reason Start Time Stop Time Status Last Admin Dose Admin Acetaminophen (Tylenol) 650 mg Q6H PRN NG Mild Pain/Temp > 100.5 10/02/17 14:58 10/22/17 14:57 Albuterol/ Ipratropium (Albuterol/ Ipratropium) 3 ml Q4H PRN HHN Shortness of Breath 10/02/17 15:00 10/04/17 14:59 Albuterol/ Ipratropium (Albuterol/ Ipratropium) 3 ml Q6HRT HHN 10/02/17 19:00 10/07/17 12:59 10/03/17 13:28 Amlodipine Besylate (Norvasc) 5 mg BID ORAL 10/02/17 18:00 11/01/17 17:59 10/03/17 09:12 Chlorhexidine Gluconate (Michelle-Hex 2%) 1 applic DAILY@2000 TOPIC 10/02/17 20:00 10/27/17 19:59 10/02/17 20:59 Clonidine HCl (Catapres Tab) 0.1 mg Q6H GT 10/02/17 18:30 11/01/17 18:29 10/03/17 13:00 Colistimethate Sodium (Colistin *inhalation use only*) 75 mg Q12HR@10,22 INH 10/02/17 22:00 10/04/17 21:59 10/03/17 08:39 Dextrose 1,000 ml @ 50 mls/hr Q20H IV 10/03/17 10:00 11/02/17 09:59 10/03/17 13:01 Dextrose (Dextrose 50%) 25 ml STAT PRN IV Hypoglycemia 10/02/17 14:58 11/01/17 14:57 Dextrose (Dextrose 50%) 50 ml STAT PRN IV Hypoglycemia 10/02/17 14:58 11/01/17 14:57 Famotidine (Pepcid) 20 mg BID GT 10/02/17 18:00 11/01/17 17:59 10/03/17 09:10 Heparin Sodium (Porcine) (Heparin 5000 units/ml) 5,000 units EVERY 12 HOURS SUBQ 10/02/17 21:00 10/27/17 20:59 10/03/17 09:18 Hydralazine HCl (Apresoline) 25 mg Q4H PRN ORAL bp over 160 syst 10/02/17 15:01 11/01/17 15:00 Insulin Aspart (NovoLOG) EVERY 6 HOURS SUBQ 10/02/17 18:00 10/19/17 16:29 Loperamide HCl (Imodium) 2 mg Q6H PRN NG Diarrhea 10/02/17 15:02 10/25/17 15:01 Lorazepam (Ativan 2mg/ml 1ml) 1 mg Q4H PRN IV For Anxiety 10/02/17 15:02 10/09/17 15:01 Minocycline HCl (Minocin) 100 mg Q12HR ORAL 10/02/17 21:00 10/03/17 23:59 10/03/17 09:11 Morphine Sulfate (Morphine Sulfate) 4 mg Q4H PRN IVP PAIN 4-10 10/02/17 15:03 10/08/17 15:02 Allergies: Coded Allergies: No Known Allergies (Verified , 01/02/09) ROS Limited/Unobtainable: Yes Subjective remains intubated, off pressor Objective Last Vital Signs Date Time Temp Pulse Resp B/P (MAP) Pulse Ox O2 Delivery O2 Flow Rate FiO2 10/03/17 13:29 92 28 92 Nasal Cannula 2.0 28 10/03/17 13:00 159/83 10/03/17 12:34 98.9 98.9 General Appearance: no apparent distress EENT: PERRL/EOMI Neck: non-tender, supple Cardiovascular: normal rate, no JVD, systolic murmur Respiratory/Chest: lungs clear Abdomen: normal bowel sounds, non tender, soft, other - peg Genitourinary/Rectal: other - elder Neurologic: aphasia, other - right hemiparesis Laboratory Tests Test 10/02/17 21:40 10/03/17 03:00 Arterial Blood pH 7.370 (7.350-7.450) Arterial Blood Partial Pressure CO2 56.5 mmHg (35.0-45.0) *H Arterial Blood Partial Pressure O2 114.4 mmHg (75.0-100.0) H Arterial Blood HCO3 32.1 mmol/L (22.0-26.0) H Arterial Blood Oxygen Saturation 98.2 % (92.0-98.0) H Arterial Blood Base Excess 5.6 Librado Test Positive White Blood Count 9.3 K/UL (4.8-10.8) Red Blood Count 3.82 M/UL (4.70-6.10) L Hemoglobin 10.1 G/DL (14.2-18.0) L Hematocrit 32.7 % (42.0-52.0) L Mean Corpuscular Volume 86 FL (80-99) Mean Corpuscular Hemoglobin 26.3 PG (27.0-31.0) L Mean Corpuscular Hemoglobin Concent 30.8 G/DL (32.0-36.0) L Red Cell Distribution Width 17.3 % (11.6-14.8) H Platelet Count 226 K/UL (150-450) Mean Platelet Volume 6.7 FL (6.5-10.1) Neutrophils (%) (Auto) 62.6 % (45.0-75.0) Lymphocytes (%) (Auto) 22.2 % (20.0-45.0) Monocytes (%) (Auto) 5.8 % (1.0-10.0) Eosinophils (%) (Auto) 9.0 % (0.0-3.0) H Basophils (%) (Auto) 0.5 % (0.0-2.0) Sodium Level 146 MMOL/L (136-145) H Potassium Level 4.2 MMOL/L (3.5-5.1) Chloride Level 108 MMOL/L (98-107) H Carbon Dioxide Level 33 MMOL/L (21-32) H Anion Gap 5 mmol/L (5-15) Blood Urea Nitrogen 32 mg/dL (7-18) H Creatinine 2.1 MG/DL (0.55-1.30) H Estimat Glomerular Filtration Rate mL/min (>60) Glucose Level 85 MG/DL (74-106) Calcium Level 9.6 MG/DL (8.5-10.1) Total Bilirubin 0.4 MG/DL (0.2-1.0) Aspartate Amino Transf (AST/SGOT) 23 U/L (15-37) Alanine Aminotransferase (ALT/SGPT) 36 U/L (12-78) Alkaline Phosphatase 76 U/L (46-116) Total Protein 8.4 G/DL (6.4-8.2) H Albumin 1.8 G/DL (3.4-5.0) L Globulin 6.6 g/dL Albumin/Globulin Ratio 0.3 (1.0-2.7) L Intake and Output 10/02/17 10/03/17 19:00 07:00 Intake Total 0 ml Output Total 800 ml 650 ml Balance -800 ml -650 ml Tube Feeding 0 ml Output Urine Total 800 ml 650 ml # Bowel Movements 185 50 Assessment/Plan Status: stable, progressing Assessment/Plan MPRESSION: 1. Acute respiratory failure, s/p extubation per family, on BIPAP DNR/DNI 2. MDR Pneumonia likely aspiration pneumonia versus healthcare associated pneumonia. 3. Severe dehydration. 4. Hypernatremia. 5. Hyperkalemia. 6. Acute on chronic renal failure stage 3. 7. Uremia due to prerenal. 8. Transaminitis. 9. Elevated lipase. 10. Severe protein-calorie malnutrition. 11. History of chronic CVA with right hemiparesis. 13. History of organic brain disease. 14. History of advanced dementia. 15. Status post gastrostomy tube placement. 16. History of neurogenic bladder/chronic indwelling Elder catheter. 17. Hyperlipidemia. 18. Coronary artery disease. 19. poor venous access PLAN: PIYUSH BIPAP as needed, DNI, DNR k replete DNI/DNR IV lasix lyte replete Pulmonary nebulizer. PRBC tx as needed DVT and GI prophylaxis. abx Elder catheter. Aspiration precaution. electrolytes replete as indicated. enteral feeding as tolerated off bipap family meeting took place 10/01----> DNR/DNI over 35 min spent d/w neuropsychology medical consultant Cesario Chacon MD [phone] CESARIO CHACON October 03, 2017 13:40
--- NOTE | 2017-10-03 15:23 | Nephrology Progress Note ---
Assessment/Plan Problem List: (1) ATN (acute tubular necrosis) (2) Septic shock (3) Respiratory failure (4) Diabetes mellitus Assessment Acute Renal failure- Cr lower ? Underlying CKD Component of dehydration, Pre renal state and Hypernatremia Acute respiratory failure, Aspiartion Pneumonia, UTI Septic Shock H/O Multiple Strokes Anemia Elevated Troponin Hyperglycemia PEG Plan ajust BP meds- pulm support add isordil previous plans: transfused add isordil Pulm support Hydrate- avoid nephrotoxics Monitor renal parameters Hemodynamic support IV iron Nitro and asa GT feeding Subjective ROS Limited/Unobtainable: No Constitutional: Reports: malaise Objective Objective Last 24 Hour Vital Signs Date Time Temp Pulse Resp B/P (MAP) Pulse Ox O2 Delivery O2 Flow Rate FiO2 10/03/17 13:37 83 27 96 Nasal Cannula 2.0 28 10/03/17 13:29 92 28 92 Nasal Cannula 2.0 28 10/03/17 13:00 159/83 10/03/17 12:34 98.9 82 24 159/83 94 Nasal Cannula 2.0 98.9 10/03/17 11:49 80 10/03/17 09:12 77 180/93 10/03/17 08:57 82 29 96 Bi-pap 30 10/03/17 08:47 80 29 94 Bi-pap 30 10/03/17 08:37 80 27 95 Facial 30 10/03/17 08:00 98.8 77 28 180/93 98 Bi-pap 30 98.8 10/03/17 08:00 30 10/03/17 07:53 70 10/03/17 07:29 82 29 94 Bi-pap 30 10/03/17 07:23 79 31 92 Facial 30 10/03/17 07:22 82 29 93 Bi-pap 30 10/03/17 06:02 155/90 10/03/17 05:05 92 31 95 Facial 30 10/03/17 04:00 97.5 68 28 150/90 98 Bi-pap 30 97.5 10/03/17 04:00 30 10/03/17 04:00 66 10/03/17 03:08 63 24 97 Facial 30 10/03/17 02:15 62 27 98 Bi-pap 30 10/03/17 02:00 70 30 96 Facial 30 10/03/17 02:00 70 30 96 Bi-pap 30 10/03/17 00:19 155/86 10/03/17 00:00 66 10/03/17 00:00 30 10/03/17 00:00 97.2 72 28 155/86 98 Bi-pap 30 97.2 10/02/17 22:39 30 10/02/17 22:32 66 36 97 Facial 30 10/02/17 22:09 66 26 99 Bi-pap 30 10/02/17 22:00 68 28 96 Bi-pap 40 10/02/17 20:44 62 34 94 Facial 40 10/02/17 20:08 88 26 98 Bi-pap 40 10/02/17 20:00 40 10/02/17 20:00 97.4 62 28 141/74 93 Bi-pap 40 97.4 10/02/17 19:59 86 32 96 Facial 40 10/02/17 19:59 86 32 96 Bi-pap 40 10/02/17 19:28 64 18 18:32 142/73 10/02/17 17:35 84 133/69 10/02/17 17:01 84 37 95 Facial 40 10/02/17 16:00 98.7 69 19 133/69 95 Mechanical Ventilator 40 98.7 10/02/17 16:00 69 10/02/17 16:00 40 Intake and Output 10/02/17 10/03/17 19:00 07:00 Intake Total 0 ml Output Total 800 ml 650 ml Balance -800 ml -650 ml Tube Feeding 0 ml Output Urine Total 800 ml 650 ml # Bowel Movements 185 50 Laboratory Tests 10/02/17 21:40: Arterial Blood pH 7.370, Arterial Blood Partial Pressure CO2 56.5*H, Arterial Blood Partial Pressure O2 114.4H, Arterial Blood HCO3 32.1H, Arterial Blood Oxygen Saturation 98.2H, Arterial Blood Base Excess 5.6, Librado Test Positive 10/03/17 03:00: White Blood Count 9.3, Red Blood Count 3.82L, Hemoglobin 10.1L, Hematocrit 32.7L , Mean Corpuscular Volume 86, Mean Corpuscular Hemoglobin 26.3L, Mean Corpuscular Hemoglobin Concent 30.8L, Red Cell Distribution Width 17.3H, Platelet Count 226, Mean Platelet Volume 6.7, Neutrophils (%) (Auto) 62.6, Lymphocytes (%) (Auto) 22.2, Monocytes (%) (Auto) 5.8, Eosinophils (%) (Auto) 9.0H, Basophils (%) (Auto) 0.5, Sodium Level 146H, Potassium Level 4.2, Chloride Level 108H, Carbon Dioxide Level 33H, Anion Gap 5, Blood Urea Nitrogen 32H, Creatinine 2.1H, Estimat Glomerular Filtration Rate , Glucose Level 85, Calcium Level 9.6, Total Bilirubin 0.4, Aspartate Amino Transf (AST/SGOT) 23, Alanine Aminotransferase (ALT/SGPT) 36, Alkaline Phosphatase 76, Total Protein 8.4H, Albumin 1.8L, Globulin 6.6, Albumin/Globulin Ratio 0.3L 10/03/17 13:40: Albumin/Globulin Ratio [Pending], Total Protein (PEP) [Pending], Albumin (PEP) [ Pending], Globulin (PEP) [Pending], [id number] [Pending], Alpha-2- Globulins [Pending], Beta Globulins [Pending], Beta Gamma Globulin [Pending], PEP Abnormal Protein Bands [Pending], Protein Electrophoresis Interpret [Pending ] Height (Feet): 5 Height (Inches): 8.00 Weight (Pounds): 206 EENT: other - BIPAPA earlier Cardiovascular: tachycardia Respiratory/Chest: decreased breath sounds Abdomen: distended Objective no other change ROSE MARY REID October 03, 2017 15:23
[2017-10-03] MEDS: HydrALAZINE 10mg Tab GT SCH ×2 (18:54→23:58)
[2017-10-03] MEDS: Dyna-Hex 2% Top Sol 2oz TOPIC SCH (19:52)
[2017-10-04] MEDS: Albuterol/Ipratropium 3ml neb HHN SCH ×5 (01:41→23:53)
[2017-10-04 04:00] VITALS: BP 160/81
[2017-10-04 06:10] LABS: ANION GAP 5 mmol/L (5-15); BLOOD UREA NITROGEN 29 mg/dL (7-18); CALCIUM 9.1 MG/DL (8.5-10.1); CARBON DIOXIDE 31 MMOL/L (21-32); CHLORIDE 105 MMOL/L (98-107); POTASSIUM 3.4 MMOL/L (3.5-5.1); SODIUM 141 MMOL/L (136-145)
[2017-10-04 06:11] LABS: BASOPHILS % (AUTO) 0.5 % (0.0-2.0); EOSINOPHILS % (AUTO) 6.5 % (0.0-3.0); HEMATOCRIT 34.2 % (42.0-52.0); HEMOGLOBIN 10.3 G/DL (14.2-18.0); LYMPHOCYTES % (AUTO) 25.9 % (20.0-45.0); MEAN CORPUSCULAR VOLUME 85 FL (80-99); MONOCYTES % (AUTO) 8.1 % (1.0-10.0); NEUTROPHILS % (AUTO) 59.1 % (45.0-75.0); PLATELET COUNT 211 K/UL (150-450); RED BLOOD COUNT 4.03 M/UL (4.70-6.10); RED CELL DISTRIBUTION WIDTH 17.2 % (11.6-14.8); WHITE BLOOD COUNT 9.5 K/UL (4.8-10.8)
[2017-10-04] MEDS: HydrALAZINE 10mg Tab GT SCH (06:30)
[2017-10-04] MEDS: NovoLOG Insulin Flexpen SUBQ SCH ×3 (06:36→18:00)
--- NOTE | 2017-10-04 07:21 | Pulmonology Progress Note ---
Assessment/Plan Assessment/Plan (1) Pneumonia (2) Aspiration pneumonia (3) Respiratory failure (4) Feeding by G-tube (5) Acute encephalopathy (6) s/p multiple lacunar strokes, old (7) Encephalopathy due to infection (8) Bacterial infection due to Staphylococcus (9) Diabetes mellitus (10) Anemia Assessment/Plan -Optimize pulmonary hygiene/mobilize as tolerated -Titrate down FiO2 to keep SaO2 > 90% -Change BiPAP to PRN & qHS, attempt to wean off -Continue Abx (PAM & INH COLISTIN) per ID -Monitor volumes and renal function, start D5W @ 50, lasix 20 IV x 1 -Check SPEP and UPEP given high TP and low ALB -If stable off BiPAP later today will start TF's back -DVT Px: Hep SQ -DNAR/DNI Subjective ROS Limited/Unobtainable: No Allergies: Coded Allergies: No Known Allergies (Verified , 01/02/09) Subjective unresponsive this am tolerating feeds positive diarrhea no reprots of cp nv or bleeding Objective Last 24 Hour Vital Signs Date Time Temp Pulse Resp B/P (MAP) Pulse Ox O2 Delivery O2 Flow Rate FiO2 10/04/17 06:30 176/85 10/04/17 06:29 176/85 10/04/17 05:04 94 10/04/17 04:00 98.0 75 24 160/81 96 Nasal Cannula 2.0 98.0 10/04/17 04:00 73 10/04/17 03:31 94 10/04/17 02:00 72 26 98 Nasal Cannula 2.0 28 10/04/17 01:38 28 10/04/17 01:37 72 26 98 Nasal Cannula 2.0 28 10/04/17 01:34 98 10/04/17 00:00 72 10/03/17 23:59 140/77 10/03/17 23:58 140/77 10/03/17 23:42 97.5 75 26 140/77 95 Nasal Cannula 2.0 97.5 10/03/17 23:00 95 10/03/17 22:02 73 20 96 Nasal Cannula 2.0 28 10/03/17 21:20 28 10/03/17 21:19 73 20 96 Nasal Cannula 2.0 28 10/03/17 21:18 96 10/03/17 20:00 73 10/03/17 20:00 97.8 73 20 128/72 93 Nasal Cannula 2.0 97.8 10/03/17 19:37 75 20 94 Nasal Cannula 2.0 28 10/03/17 19:20 28 10/03/17 19:19 75 20 94 Nasal Cannula 2.0 28 10/03/17 19:18 94 10/03/17 18:54 146/75 18 18:54 146/75 10/03/17 18:54 75 146/75 10/03/17 16:00 98.1 75 20 146/75 95 Nasal Cannula 2.0 98.1 10/03/17 15:35 77 10/03/17 13:37 83 27 96 Nasal Cannula 2.0 28 10/03/17 13:29 92 28 92 Nasal Cannula 2.0 28 10/03/17 13:00 159/83 10/03/17 12:34 98.9 82 24 159/83 94 Nasal Cannula 2.0 98.9 10/03/17 11:49 80 10/03/17 09:12 77 180/93 10/03/17 08:57 82 29 96 Bi-pap 30 10/03/17 08:47 80 29 94 Bi-pap 30 10/03/17 08:37 80 27 95 Facial 30 10/03/17 08:00 98.8 77 28 180/93 98 Bi-pap 30 98.8 10/03/17 08:00 30 10/03/17 07:53 70 10/03/17 07:29 82 29 94 Bi-pap 30 10/03/17 07:23 79 31 92 Facial 30 10/03/17 07:22 82 29 93 Bi-pap 30 Intake and Output 10/03/17 10/04/17 19:00 07:00 Intake Total 490 ml 1080 ml Output Total 1150 ml 550 ml Balance -660 ml 530 ml Free Water 100 ml 100 ml IV Total 300 ml 550 ml Tube Feeding 90 ml 330 ml Other 100 ml Output Urine Total 1100 ml 450 ml Stool Total 50 ml 100 ml General Appearance: cachetic Respiratory/Chest: lungs clear Cardiovascular: normal rate, regular rhythm, murmur systolic, edema Abdomen: soft, non tender, no organomegaly Neurologic/Psychiatric: unresponsiveness Laboratory Tests 10/03/17 13:40: Total Protein (PEP) [Pending], Albumin (PEP) [Pending], Globulin (PEP) [Pending] , Albumin/Globulin Ratio [Pending], Luqlz-[id number] [Pending], Alpha-2- Globulins [Pending], Beta Globulins [Pending], Beta Gamma Globulin [Pending], PEP Abnormal Protein Bands [Pending], Protein Electrophoresis Interpret [Pending ] 10/04/17 05:00: White Blood Count 9.5, Red Blood Count 4.03L, Hemoglobin 10.3L, Hematocrit 34.2L , Mean Corpuscular Volume 85, Mean Corpuscular Hemoglobin 25.7L, Mean Corpuscular Hemoglobin Concent 30.2L, Red Cell Distribution Width 17.2H, Platelet Count 211, Mean Platelet Volume 6.3L, Neutrophils (%) (Auto) 59.1, Lymphocytes (%) (Auto) 25.9, Monocytes (%) (Auto) 8.1, Eosinophils (%) (Auto) 6.5H, Basophils (%) (Auto) 0.5, Sodium Level 141, Potassium Level 3.4L, Chloride Level 105, Carbon Dioxide Level 31, Anion Gap 5, Blood Urea Nitrogen 29H, Creatinine 2.0H, Estimat Glomerular Filtration Rate , Glucose Level 122H, Calcium Level 9.1 Current Medications Medications (Trade) Dose Ordered Sig/Keira Route PRN Reason Start Time Stop Time Status Last Admin Dose Admin Acetaminophen (Tylenol) 650 mg Q6H PRN NG Mild Pain/Temp > 100.5 10/02/17 14:58 10/22/17 14:57 Albuterol/ Ipratropium (Albuterol/ Ipratropium) 3 ml Q4H PRN HHN Shortness of Breath 10/02/17 15:00 10/04/17 14:59 Albuterol/ Ipratropium (Albuterol/ Ipratropium) 3 ml Q6HRT HHN 10/02/17 19:00 10/07/17 12:59 10/04/17 01:41 Amlodipine Besylate (Norvasc) 5 mg BID ORAL 10/02/17 18:00 11/01/17 17:59 10/03/17 18:54 Chlorhexidine Gluconate (Michelle-Hex 2%) 1 applic DAILY@1999 TOPIC 10/02/17 20:00 10/27/17 19:59 10/03/17 19:52 Clonidine HCl (Catapres Tab) 0.1 mg Q6H GT 10/02/17 18:30 11/01/17 18:29 10/04/17 06:29 Colistimethate Sodium (Colistin *inhalation use only*) 75 mg Q12HR@10,22 INH 10/02/17 22:00 10/04/17 21:59 10/03/17 22:01 Dextrose 1,000 ml @ 50 mls/hr Q20H IV 10/03/17 10:00 11/02/17 09:59 10/04/17 06:38 Dextrose (Dextrose 50%) 25 ml STAT PRN IV Hypoglycemia 10/02/17 14:58 11/01/17 14:57 Dextrose (Dextrose 50%) 50 ml STAT PRN IV Hypoglycemia 10/02/17 14:58 11/01/17 14:57 Famotidine (Pepcid) 20 mg BID GT 10/02/17 18:00 11/01/17 17:59 10/03/17 18:54 Heparin Sodium (Porcine) (Heparin 5000 units/ml) 5,000 units EVERY 12 HOURS SUBQ 10/02/17 21:00 10/27/17 20:59 10/03/17 20:40 Hydralazine HCl (Apresoline) 10 mg Q6HR GT 10/03/17 18:00 11/02/17 17:59 10/04/17 06:30 Hydralazine HCl (Apresoline) 25 mg Q4H PRN ORAL bp over 160 syst 10/02/17 15:01 11/01/17 15:00 Insulin Aspart (NovoLOG) EVERY 6 HOURS SUBQ 10/02/17 18:00 10/19/17 16:29 10/04/17 06:36 Loperamide HCl (Imodium) 2 mg Q6H PRN NG Diarrhea 10/02/17 15:02 10/25/17 15:01 Lorazepam (Ativan 2mg/ml 1ml) 1 mg Q4H PRN IV For Anxiety 10/02/17 15:02 10/09/17 15:01 Morphine Sulfate (Morphine Sulfate) 4 mg Q4H PRN IVP PAIN 4-10 10/02/17 15:03 10/08/17 15:02 GLENN HAYNES DO October 04, 2017 07:21
[2017-10-04 08:00] VITALS: BP 149/84
--- NOTE | 2017-10-04 08:40 | General Progress Note ---
Assessment/Plan Assessment/Plan Assessment - Anemia - abnormal LFT - Resp failure - Renal failure - Sepsis - CVA / (R) taylor - dysphagia / GT - diarrhea Recommendations - H2B BID - dc reglan given renal insufficiency - Imodium prn - TF, increase rate to 35 - abd u/s, reviewed - check OB, fu hep panel - transufse PRN - abx - s/p EGD/colon 07/2017 at [facility] (HH,polyps, diverticulosis) - fu labs Subjective ROS Limited/Unobtainable: No Allergies: Coded Allergies: No Known Allergies (Verified , 01/02/09) Objective Last 24 Hour Vital Signs Date Time Temp Pulse Resp B/P (MAP) Pulse Ox O2 Delivery O2 Flow Rate FiO2 10/04/17 07:55 75 22 97 Nasal Cannula 2.0 28 10/04/17 07:48 28 10/04/17 07:45 69 22 96 Nasal Cannula 2.0 28 10/04/17 06:30 176/85 10/04/17 06:29 176/85 10/04/17 05:04 94 10/04/17 04:00 98.0 75 24 160/81 96 Nasal Cannula 2.0 98.0 10/04/17 04:00 73 10/04/17 03:31 94 10/04/17 02:00 72 26 98 Nasal Cannula 2.0 10/04/17 01:38 28 10/04/17 01:37 72 26 98 Nasal Cannula 2.0 10/04/17 01:34 98 10/04/17 00:00 72 10/03/17 23:59 140/77 10/03/17 23:58 140/77 10/03/17 23:42 97.5 75 26 140/77 95 Nasal Cannula 2.0 97.5 10/03/17 23:00 95 10/03/17 22:02 73 20 96 Nasal Cannula 2.0 28 10/03/17 21:20 28 10/03/17 21:19 73 20 96 Nasal Cannula 2.0 28 10/03/17 21:18 96 10/03/17 20:00 73 10/03/17 20:00 97.8 73 20 128/72 93 Nasal Cannula 2.0 97.8 10/03/17 19:37 75 20 94 Nasal Cannula 2.0 28 5/18/18 19:20 28 10/03/17 19:19 75 20 94 Nasal Cannula 2.0 28 10/03/17 19:18 94 10/03/17 18:54 146/75 10/03/17 18:54 146/75 10/03/17 18:54 75 146/75 10/03/17 16:00 98.1 75 20 146/75 95 Nasal Cannula 2.0 98.1 10/03/17 15:35 77 10/03/17 13:37 83 27 96 Nasal Cannula 2.0 28 10/03/17 13:29 92 28 92 Nasal Cannula 2.0 28 10/03/17 13:00 159/83 10/03/17 12:34 98.9 82 24 159/83 94 Nasal Cannula 2.0 98.9 10/03/17 11:49 80 10/03/17 09:12 77 180/93 10/03/17 08:57 82 29 96 Bi-pap 30 10/03/17 08:47 80 29 94 Bi-pap 30 Intake and Output 10/03/17 10/04/17 19:00 07:00 Intake Total 490 ml 1080 ml Output Total 1150 ml 550 ml Balance -660 ml 530 ml Free Water 100 ml 100 ml IV Total 300 ml 550 ml Tube Feeding 90 ml 330 ml Other 100 ml Output Urine Total 1100 ml 450 ml Stool Total 50 ml 100 ml Laboratory Tests 10/03/17 13:40: Total Protein (PEP) [Pending], Albumin (PEP) [Pending], Globulin (PEP) [Pending] , Albumin/Globulin Ratio [Pending], [id number]-[id number] [Pending], Alpha-2- Globulins [Pending], Beta Globulins [Pending], Beta Gamma Globulin [Pending], PEP Abnormal Protein Bands [Pending], Protein Electrophoresis Interpret [Pending ] 10/04/17 05:00: White Blood Count 9.5, Red Blood Count 4.03L, Hemoglobin 10.3L, Hematocrit 34.2L , Mean Corpuscular Volume 85, Mean Corpuscular Hemoglobin 25.7L, Mean Corpuscular Hemoglobin Concent 30.2L, Red Cell Distribution Width 17.2H, Platelet Count 211, Mean Platelet Volume 6.3L, Neutrophils (%) (Auto) 59.1, Lymphocytes (%) (Auto) 25.9, Monocytes (%) (Auto) 8.1, Eosinophils (%) (Auto) 6.5H, Basophils (%) (Auto) 0.5, Sodium Level 141, Potassium Level 3.4L, Chloride Level 105, Carbon Dioxide Level 31, Anion Gap 5, Blood Urea Nitrogen 29H, Creatinine 2.0H, Estimat Glomerular Filtration Rate , Glucose Level 122H, Calcium Level 9.1 Height (Feet): 5 Height (Inches): 8.00 Weight (Pounds): 200 General Appearance: no apparent distress EENT: normal ENT inspection Neck: supple Cardiovascular: normal rate Respiratory/Chest: decreased breath sounds Abdomen: normal bowel sounds, non tender, soft Extremities: non-tender Villa Taveras MD October 04, 2017 08:40
[2017-10-04] MEDS: Colistin for inhalation INH SCH (09:35)
[2017-10-04] MEDS: Heparin 5000 units/ml inj SUBQ SCH ×2 (09:46→21:38)
[2017-10-04 12:00] VITALS: BP 156/88
--- NOTE | 2017-10-04 12:38 | Nephrology Progress Note ---
Assessment/Plan Problem List: (1) ATN (acute tubular necrosis) (2) Septic shock (3) Respiratory failure (4) Diabetes mellitus Assessment Acute Renal failure- Cr lower ? Underlying CKD Component of dehydration, Pre renal state and Hypernatremia Acute respiratory failure, Aspiartion Pneumonia, UTI Septic Shock H/O Multiple Strokes Anemia Elevated Troponin Hyperglycemia PEG Plan increase isordil- K supplement ajust BP meds- pulm support previous plans: transfused Pulm support avoid nephrotoxics Monitor renal parameters Hemodynamic support IV iron Nitro and asa GT feeding Subjective ROS Limited/Unobtainable: No Constitutional: Reports: malaise Objective Objective Last 24 Hour Vital Signs Date Time Temp Pulse Resp B/P (MAP) Pulse Ox O2 Delivery O2 Flow Rate FiO2 10/04/17 09:45 76 22 97 Nasal Cannula 2.0 28 10/04/17 09:41 69 149/84 10/04/17 09:35 74 22 97 Nasal Cannula 2.0 28 10/04/17 08:00 69 10/04/17 08:00 98.4 69 23 149/84 96 Nasal Cannula 2.0 98.4 10/04/17 07:55 75 22 97 Nasal Cannula 2.0 28 10/04/17 07:48 28 10/04/17 07:45 69 22 96 Nasal Cannula 2.0 28 10/04/17 06:30 176/85 10/04/17 06:29 176/85 10/04/17 05:04 94 10/04/17 04:00 98.0 75 24 160/81 96 Nasal Cannula 2.0 98.0 10/04/17 04:00 73 10/04/17 03:31 94 10/04/17 02:00 72 26 98 Nasal Cannula 2.0 28 10/04/17 01:38 28 10/04/17 01:37 72 26 98 Nasal Cannula 2.0 28 10/04/17 01:34 98 10/04/17 00:00 72 10/03/17 23:59 140/77 10/03/17 23:58 140/77 10/03/17 23:42 97.5 75 26 140/77 95 Nasal Cannula 2.0 97.5 10/03/17 23:00 95 10/03/17 22:02 73 20 96 Nasal Cannula 2.0 28 10/03/17 21:20 28 10/03/17 21:19 73 20 96 Nasal Cannula 2.0 28 10/03/17 21:18 96 10/03/17 20:00 73 10/03/17 20:00 97.8 73 20 128/72 93 Nasal Cannula 2.0 97.8 10/03/17 19:37 75 20 94 Nasal Cannula 2.0 28 10/03/17 19:20 28 10/03/17 19:19 75 20 94 Nasal Cannula 2.0 28 10/03/17 19:18 94 10/03/17 18:54 146/75 10/03/17 18:54 146/75 10/03/17 18:54 75 146/75 10/03/17 16:00 98.1 75 20 146/75 95 Nasal Cannula 2.0 98.1 10/03/17 15:35 77 10/03/17 13:37 83 27 96 Nasal Cannula 2.0 28 10/03/17 13:29 92 28 92 Nasal Cannula 2.0 28 10/03/17 13:00 159/83 Intake and Output 10/03/17 10/04/17 19:00 07:00 Intake Total 490 ml 1080 ml Output Total 1150 ml 550 ml Balance -660 ml 530 ml Free Water 100 ml 100 ml IV Total 300 ml 550 ml Tube Feeding 90 ml 330 ml Other 100 ml Output Urine Total 1100 ml 450 ml Stool Total 50 ml 100 ml Laboratory Tests 10/03/17 13:40: Total Protein (PEP) [Pending], Albumin (PEP) [Pending], Globulin (PEP) [Pending] , Albumin/Globulin Ratio [Pending], [id number]-[id number] [Pending], Alpha-2- Globulins [Pending], Beta Globulins [Pending], Beta Gamma Globulin [Pending], PEP Abnormal Protein Bands [Pending], Protein Electrophoresis Interpret [Pending ] 10/04/17 05:00: White Blood Count 9.5, Red Blood Count 4.03L, Hemoglobin 10.3L, Hematocrit 34.2L , Mean Corpuscular Volume 85, Mean Corpuscular Hemoglobin 25.7L, Mean Corpuscular Hemoglobin Concent 30.2L, Red Cell Distribution Width 17.2H, Platelet Count 211, Mean Platelet Volume 6.3L, Neutrophils (%) (Auto) 59.1, Lymphocytes (%) (Auto) 25.9, Monocytes (%) (Auto) 8.1, Eosinophils (%) (Auto) 6.5H, Basophils (%) (Auto) 0.5, Sodium Level 141, Potassium Level 3.4L, Chloride Level 105, Carbon Dioxide Level 31, Anion Gap 5, Blood Urea Nitrogen 29H, Creatinine 2.0H, Estimat Glomerular Filtration Rate , Glucose Level 122H, Calcium Level 9.1 Height (Feet): 5 Height (Inches): 8.00 Weight (Pounds): 200 General Appearance: no apparent distress, other - O2 cannula Cardiovascular: normal rate Respiratory/Chest: decreased breath sounds Abdomen: soft, other - PEG Objective no other change ROSE MARY REID October 04, 2017 12:38
[2017-10-04] MEDS ORDERED: Tubing IV Secondary IV ONE (15:02)
[2017-10-04] MEDS ORDERED: Sterile Water Irrig 1000ml IRRIG ONE (15:03)
[2017-10-04] MEDS ORDERED: NS 275ml ONE (15:03)
[2017-10-04 16:00] VITALS: BP 128/70
[2017-10-04] MEDS: HydrALAZINE 25mg tab GT SCH (18:49)
[2017-10-04 20:00] VITALS: BP 158/95
[2017-10-04] MEDS: Dyna-Hex 2% Top Sol 2oz TOPIC SCH (21:39)
[2017-10-05] VITALS: BP 173/100
[2017-10-05] MEDS: HydrALAZINE 25mg tab GT SCH ×3 (00:06→11:51)
[2017-10-05] MEDS: NovoLOG Insulin Flexpen SUBQ SCH ×5 (00:17→23:48)
[2017-10-05 04:00] VITALS: BP 175/98
[2017-10-05] MEDS: Albuterol/Ipratropium 3ml neb HHN SCH ×3 (06:36→18:54)
[2017-10-05 08:00] VITALS: BP 147/85
[2017-10-05] MEDS: Heparin 5000 units/ml inj SUBQ SCH ×2 (08:48→20:58)
--- NOTE | 2017-10-05 10:23 | Infectious Diseases Prog Note ---
"Assessment/Plan Assessment/Plan antibiotics : none A 1. acenitobacter | proteus pneumonia s/p rx 2. proteus UTI s/p rx 3. + blood cultures with coag neg staph likely contaminated 4. diabetes mellitus P 1. continue off antibiotics Subjective Constitutional: Denies: fever, chills Respiratory: Reports: dry cough; Denies: shortness of breath Gastrointestinal/Abdominal: Denies: nausea, vomiting, diarrhea Musculoskeletal: Denies: pain Allergies: Coded Allergies: No Known Allergies (Verified , 01/02/09) Objective Vital Signs Last 24 Hour Vital Signs Date Time Temp Pulse Resp B/P (MAP) Pulse Ox O2 Delivery O2 Flow Rate FiO2 10/05/17 08:46 81 147/87 10/05/17 08:00 98.7 74 30 147/85 98 Nasal Cannula 2.0 98.7 10/05/17 08:00 74 10/05/17 06:46 76 32 98 Nasal Cannula 2.0 28 10/05/17 06:36 71 32 99 Nasal Cannula 2.0 28 10/05/17 06:27 175/98 10/05/17 06:00 175/98 10/05/17 04:31 175/98 10/05/17 04:00 98.4 69 20 175/98 95 Nasal Cannula 2.0 98.4 10/05/17 04:00 70 10/05/17 00:06 173/100 10/05/17 00:06 173/100 10/05/17 00:01 80 22 95 Nasal Cannula 2.0 28 10/05/17 00:00 86 10/05/17 00:00 98.2 85 20 173/100 95 Nasal Cannula 2.0 98.2 10/04/17 23:55 28 10/04/17 23:52 73 22 92 Nasal Cannula 2.0 28 10/04/17 22:06 Nasal Cannula 10/04/17 22:05 95 10/04/17 22:00 28 10/04/17 22:00 71 22 95 Nasal Cannula 2.0 28 10/04/17 20:25 68 22 Nasal Cannula 2.0 28 10/04/17 20:00 67 10/04/17 20:00 97.9 74 20 158/95 95 Nasal Cannula 2.0 97.9 10/04/17 19:08 68 22 96 Nasal Cannula 2.0 28 10/04/17 18:59 28 10/04/17 18:58 68 22 96 Nasal Cannula 2.0 28 10/04/17 18:49 149/84 10/04/17 18:49 77 149/84 10/04/17 18:48 149/84 10/04/17 16:00 98.4 72 30 128/70 97 Nasal Cannula 2.0 98.4 10/04/17 16:00 69 10/04/17 13:42 149/84 10/04/17 13:19 77 22 98 Nasal Cannula 2.0 28 10/04/17 13:12 28 10/04/17 13:09 75 22 97 Nasal Cannula 2.0 28 10/04/17 12:00 80 10/04/17 12:00 98.5 76 32 156/88 95 Nasal Cannula 2.0 98.5 Height (Feet): 5 Height (Inches): 8.00 Weight (Pounds): 209 Respiratory/Chest: lungs clear Cardiovascular: normal rate, regular rhythm, no gallop/murmur Abdomen: soft, non tender, other - GT Extremities: no edema, other - left arm PICC Current Medications Medications (Trade) Dose Ordered Sig/Keira Route PRN Reason Start Time Stop Time Status Last Admin Dose Admin Acetaminophen (Tylenol) 650 mg Q6H PRN NG Mild Pain/Temp > 100.5 10/02/17 14:58 10/22/17 14:57 Albuterol/ Ipratropium (Albuterol/ Ipratropium) 3 ml Q6HRT HHN 10/02/17 19:00 10/07/17 12:59 10/05/17 06:36 Amlodipine Besylate (Norvasc) 5 mg BID ORAL 10/02/17 18:00 11/01/17 17:59 10/05/17 08:46 Chlorhexidine Gluconate (Michelle-Hex 2%) 1 applic DAILY@2000 TOPIC 10/02/17 20:00 10/27/17 19:59 10/04/17 21:39 Clonidine HCl (Catapres Tab) 0.1 mg Q6H GT 10/02/17 18:30 11/01/17 18:29 10/05/17 06:27 Dextrose 1,000 ml @ 50 mls/hr Q20H IV 10/03/17 10:00 11/02/17 09:59 10/05/17 01:38 Dextrose (Dextrose 50%) 25 ml STAT PRN IV Hypoglycemia 10/02/17 14:58 11/01/17 14:57 Dextrose (Dextrose 50%) 50 ml STAT PRN IV Hypoglycemia 10/02/17 14:58 11/01/17 14:57 Famotidine (Pepcid) 20 mg BID GT 10/02/17 18:00 11/01/17 17:59 10/05/17 08:46 Heparin Sodium (Porcine) (Heparin 5000 units/ml) 5,000 units EVERY 12 HOURS SUBQ 10/02/17 21:00 10/27/17 20:59 10/05/17 08:48 Hydralazine HCl (Apresoline) 12.5 mg Q6HR GT 10/04/17 18:00 11/02/17 17:59 10/05/17 00:06 Hydralazine HCl (Apresoline) 25 mg Q4H PRN ORAL bp over 160 syst 10/02/17 15:01 11/01/17 15:00 10/05/17 04:31 Insulin Aspart (NovoLOG) EVERY 6 HOURS SUBQ 10/02/17 18:00 10/19/17 16:29 10/05/17 00:17 Loperamide HCl (Imodium) 2 mg Q6H PRN NG Diarrhea 10/02/17 15:02 10/25/17 15:01 Lorazepam (Ativan 2mg/ml 1ml) 1 mg Q4H PRN IV For Anxiety 10/02/17 15:02 10/09/17 15:01 Morphine Sulfate (Morphine Sulfate) 4 mg Q4H PRN IVP PAIN 4-10 10/02/17 15:03 10/08/17 15:02 Potassium Chloride (K-Dur) 40 meq DAILY GT 10/04/17 12:45 11/03/17 12:44 10/05/17 08:45 CONCHITA LAM October 05, 2017 10:23"
--- NOTE | 2017-10-05 10:43 | General Progress Note ---
Assessment/Plan Assessment/Plan Assessment - Anemia - abnormal LFT - Resp failure - Renal failure - Sepsis - CVA / (R) taylor - dysphagia / GT - diarrhea Recommendations - H2B BID - dc reglan given renal insufficiency - Imodium prn - TF, - abd u/s, reviewed - check OB, fu hep panel - transufse PRN - abx - s/p EGD/colon 07/2017 at [facility] (HH,polyps, diverticulosis) - fu labs -rectal tube in place for decubitus ulcer Subjective ROS Limited/Unobtainable: No Allergies: Coded Allergies: No Known Allergies (Verified , 01/02/09) Objective Last 24 Hour Vital Signs Date Time Temp Pulse Resp B/P (MAP) Pulse Ox O2 Delivery O2 Flow Rate FiO2 10/05/17 08:46 81 147/87 10/05/17 08:00 98.7 74 30 147/85 98 Nasal Cannula 2.0 98.7 10/05/17 08:00 74 10/05/17 06:46 76 32 98 Nasal Cannula 2.0 28 10/05/17 06:36 71 32 99 Nasal Cannula 2.0 28 10/05/17 06:27 175/98 10/05/17 06:00 175/98 10/05/17 04:31 175/98 10/05/17 04:00 98.4 69 20 175/98 95 Nasal Cannula 2.0 98.4 10/05/17 04:00 70 10/05/17 00:06 173/100 10/05/17 00:06 173/100 10/05/17 00:01 80 22 95 Nasal Cannula 2.0 28 10/05/17 00:00 86 10/05/17 00:00 98.2 85 20 173/100 95 Nasal Cannula 2.0 98.2 10/04/17 23:55 28 10/04/17 23:52 73 22 92 Nasal Cannula 2.0 28 10/04/17 22:06 Nasal Cannula 10/04/17 22:05 95 10/04/17 22:00 28 10/04/17 22:00 71 22 95 Nasal Cannula 2.0 28 10/04/17 20:25 68 22 Nasal Cannula 2.0 28 10/04/17 20:00 67 10/04/17 20:00 97.9 74 20 158/95 95 Nasal Cannula 2.0 97.9 10/04/17 19:08 68 22 96 Nasal Cannula 2.0 28 10/04/17 18:59 28 10/04/17 18:58 68 22 96 Nasal Cannula 2.0 28 10/04/17 18:49 149/84 10/04/17 18:49 77 149/84 10/04/17 18:48 149/84 10/04/17 16:00 98.4 72 30 128/70 97 Nasal Cannula 2.0 98.4 10/04/17 16:00 69 10/04/17 13:42 149/84 10/04/17 13:19 77 22 98 Nasal Cannula 2.0 28 10/04/17 13:12 28 10/04/17 13:09 75 22 97 Nasal Cannula 2.0 28 10/04/17 12:00 80 10/04/17 12:00 98.5 76 32 156/88 95 Nasal Cannula 2.0 98.5 Intake and Output 10/04/17 10/05/17 19:00 07:00 Intake Total 1160 ml 880 ml Output Total 650 ml Balance 510 ml 880 ml Free Water 200 ml 100 ml IV Total 600 ml 450 ml Tube Feeding 360 ml 330 ml Output Urine Total 650 ml Height (Feet): 5 Height (Inches): 8.00 Weight (Pounds): 209 General Appearance: no apparent distress EENT: normal ENT inspection Neck: supple Cardiovascular: normal rate Respiratory/Chest: decreased breath sounds Abdomen: normal bowel sounds, non tender, soft Extremities: non-tender Villa Taveras MD October 05, 2017 10:43
[2017-10-05 12:00] VITALS: BP 158/76
--- NOTE | 2017-10-05 15:03 | Nephrology Progress Note ---
Assessment/Plan Problem List: (1) ATN (acute tubular necrosis) (2) Septic shock (3) Respiratory failure (4) Diabetes mellitus Assessment Acute Renal failure- Cr lower ? Underlying CKD Component of dehydration, Pre renal state and Hypernatremia Acute respiratory failure, Aspiartion Pneumonia, UTI Septic Shock H/O Multiple Strokes Anemia Elevated Troponin Hyperglycemia PEG Plan increase isordil- K supplement ajust BP meds- pulm support previous plans: transfused Pulm support avoid nephrotoxics Monitor renal parameters Hemodynamic support IV iron Nitro and asa GT feeding Subjective ROS Limited/Unobtainable: No Constitutional: Reports: malaise, weakness Objective Objective Last 24 Hour Vital Signs Date Time Temp Pulse Resp B/P (MAP) Pulse Ox O2 Delivery O2 Flow Rate FiO2 10/05/17 12:33 72 33 98 Room Air 21 10/05/17 12:26 69 33 95 Room Air 21 10/05/17 12:00 73 10/05/17 12:00 98.7 72 30 158/76 93 Room Air 98.7 10/05/17 11:51 158/72 10/05/17 11:51 158/72 10/05/17 08:46 81 147/87 10/05/17 08:00 98.7 74 30 147/85 98 Nasal Cannula 2.0 98.7 10/05/17 08:00 74 10/05/17 06:46 76 32 98 Nasal Cannula 2.0 28 10/05/17 06:36 71 32 99 Nasal Cannula 2.0 28 10/05/17 06:27 175/98 10/05/17 06:00 175/98 10/05/17 04:31 175/98 10/05/17 04:00 98.4 69 20 175/98 95 Nasal Cannula 2.0 98.4 10/05/17 04:00 70 10/05/17 00:06 173/100 10/05/17 00:06 173/100 10/05/17 00:01 80 22 95 Nasal Cannula 2.0 28 10/05/17 00:00 86 10/05/17 00:00 98.2 85 20 173/100 95 Nasal Cannula 2.0 98.2 10/04/17 23:55 28 10/04/17 23:52 73 22 92 Nasal Cannula 2.0 28 10/04/17 22:06 Nasal Cannula 10/04/17 22:05 95 10/04/17 22:00 28 10/04/17 22:00 71 22 95 Nasal Cannula 2.0 28 10/04/17 20:25 68 22 Nasal Cannula 2.0 28 10/04/17 20:00 67 10/04/17 20:00 97.9 74 20 158/95 95 Nasal Cannula 2.0 97.9 10/04/17 19:08 68 22 96 Nasal Cannula 2.0 28 10/04/17 18:59 28 10/04/17 18:58 68 22 96 Nasal Cannula 2.0 28 10/04/17 18:49 149/84 10/04/17 18:49 77 149/84 10/04/17 18:48 149/84 10/04/17 16:00 98.4 72 30 128/70 97 Nasal Cannula 2.0 98.4 10/04/17 16:00 69 Intake and Output 10/04/17 10/05/17 19:00 07:00 Intake Total 1160 ml 930 ml Output Total 650 ml Balance 510 ml 930 ml Free Water 200 ml 100 ml IV Total 600 ml 500 ml Tube Feeding 360 ml 330 ml Output Urine Total 650 ml Height (Feet): 5 Height (Inches): 8.00 Weight (Pounds): 209 General Appearance: no apparent distress Cardiovascular: normal rate Respiratory/Chest: decreased breath sounds Abdomen: soft Objective no other change ROSE MARY REID October 05, 2017 15:03
[2017-10-05 16:00] VITALS: BP 129/82
[2017-10-05] MEDS: HydrALAZINE 10mg Tab GT SCH ×2 (17:15→23:51)
--- NOTE | 2017-10-05 18:54 | Pulmonology Progress Note ---
Assessment/Plan Assessment/Plan (1) Pneumonia (2) Aspiration pneumonia (3) Respiratory failure (4) Feeding by G-tube (5) Acute encephalopathy (6) s/p multiple lacunar strokes, old (7) Encephalopathy due to infection (8) Bacterial infection due to Staphylococcus (9) Diabetes mellitus (10) Anemia Assessment/Plan -Optimize pulmonary hygiene/mobilize as tolerated -Titrate down FiO2 to keep SaO2 > 90% -Change BiPAP to PRN & qHS, attempt to wean off -Continue Abx (PAM & INH COLISTIN) per ID -Monitor volumes and renal function, start D5W @ 50, lasix 20 IV x 1 -Check SPEP and UPEP given high TP and low ALB -If stable off BiPAP later today will start TF's back -DVT Px: Hep SQ -DNAR/DNI CX Rthis week Subjective ROS Limited/Unobtainable: Yes Allergies: Coded Allergies: No Known Allergies (Verified , 01/02/09) Subjective unresponsive this afternoon tolerating feeds positive diarrhea no reprots of cp nv or bleeding not on bipap cough moist but requires suctioning frquently per RT Objective Last 24 Hour Vital Signs Date Time Temp Pulse Resp B/P (MAP) Pulse Ox O2 Delivery O2 Flow Rate FiO2 10/05/17 18:53 28 10/05/17 18:52 77 28 100 Nasal Cannula 2.0 28 10/05/17 17:16 72 129/82 10/05/17 17:15 129/82 10/05/17 17:10 129/82 10/05/17 16:00 76 10/05/17 16:00 98.4 78 28 129/82 95 Room Air 98.4 10/05/17 12:33 72 33 98 Room Air 21 10/05/17 12:26 69 33 95 Room Air 21 10/05/17 12:00 73 10/05/17 12:00 98.7 72 30 158/76 93 Room Air 98.7 10/05/17 11:51 158/72 10/05/17 11:51 158/72 10/05/17 08:46 81 147/87 10/05/17 08:00 98.7 74 30 147/85 98 Nasal Cannula 2.0 98.7 10/05/17 08:00 74 10/05/17 06:46 76 32 98 Nasal Cannula 2.0 28 10/05/17 06:36 71 32 99 Nasal Cannula 2.0 28 10/05/17 06:27 175/98 10/05/17 06:00 175/98 10/05/17 04:31 175/98 10/05/17 04:00 98.4 69 20 175/98 95 Nasal Cannula 2.0 98.4 10/05/17 04:00 70 10/05/17 00:06 173/100 10/05/17 00:06 173/100 10/05/17 00:01 80 22 95 Nasal Cannula 2.0 28 10/05/17 00:00 86 10/05/17 00:00 98.2 85 20 173/100 95 Nasal Cannula 2.0 98.2 10/04/17 23:55 28 10/04/17 23:52 73 22 92 Nasal Cannula 2.0 28 10/04/17 22:06 Nasal Cannula 10/04/17 22:05 95 10/04/17 22:00 28 10/04/17 22:00 71 22 95 Nasal Cannula 2.0 28 10/04/17 20:25 68 22 Nasal Cannula 2.0 28 10/04/17 20:00 67 10/04/17 20:00 97.9 74 20 158/95 95 Nasal Cannula 2.0 97.9 10/04/17 19:08 68 22 96 Nasal Cannula 2.0 28 10/04/17 18:59 28 10/04/17 18:58 68 22 96 Nasal Cannula 2.0 28 Intake and Output 10/04/17 10/05/17 19:00 07:00 Intake Total 1160 ml 930 ml Output Total 650 ml Balance 510 ml 930 ml Free Water 200 ml 100 ml IV Total 600 ml 500 ml Tube Feeding 360 ml 330 ml Output Urine Total 650 ml General Appearance: WD/WN Respiratory/Chest: rhonchi Abdomen: tender Extremities: no clubbing Skin: no ulcers Neurologic/Psychiatric: disoriented Current Medications Medications (Trade) Dose Ordered Sig/Keira Route PRN Reason Start Time Stop Time Status Last Admin Dose Admin Acetaminophen (Tylenol) 650 mg Q6H PRN NG Mild Pain/Temp > 100.5 10/02/17 14:58 10/22/17 14:57 Albuterol/ Ipratropium (Albuterol/ Ipratropium) 3 ml Q6HRT HHN 10/02/17 19:00 10/07/17 12:59 10/05/17 12:26 Amlodipine Besylate (Norvasc) 5 mg BID ORAL 10/02/17 18:00 11/01/17 17:59 10/05/17 17:16 Chlorhexidine Gluconate (Michelle-Hex 2%) 1 applic DAILY@2000 TOPIC 10/02/17 20:00 10/27/17 19:59 10/04/17 21:39 Clonidine HCl (Catapres Tab) 0.1 mg Q6H GT 10/02/17 18:30 11/01/17 18:29 10/05/17 11:51 Dextrose 1,000 ml @ 50 mls/hr Q20H IV 10/03/17 10:00 11/02/17 09:59 10/05/17 01:38 Dextrose (Dextrose 50%) 25 ml STAT PRN IV Hypoglycemia 10/02/17 14:58 11/01/17 14:57 Dextrose (Dextrose 50%) 50 ml STAT PRN IV Hypoglycemia 10/02/17 14:58 11/01/17 14:57 Famotidine (Pepcid) 20 mg BID GT 10/02/17 18:00 11/01/17 17:59 10/05/17 17:15 Heparin Sodium (Porcine) (Heparin 5000 units/ml) 5,000 units EVERY 12 HOURS SUBQ 10/02/17 21:00 10/27/17 20:59 10/05/17 08:48 Hydralazine HCl (Apresoline) 20 mg Q6HR GT 10/05/17 18:00 11/02/17 17:59 10/05/17 17:15 Hydralazine HCl (Apresoline) 25 mg Q4H PRN ORAL bp over 160 syst 10/02/17 15:01 11/01/17 15:00 10/05/17 04:31 Insulin Aspart (NovoLOG) EVERY 6 HOURS SUBQ 10/02/17 18:00 10/19/17 16:29 10/05/17 00:17 Loperamide HCl (Imodium) 2 mg Q6H PRN NG Diarrhea 10/02/17 15:02 10/25/17 15:01 Lorazepam (Ativan 2mg/ml 1ml) 1 mg Q4H PRN IV For Anxiety 10/02/17 15:02 10/09/17 15:01 Morphine Sulfate (Morphine Sulfate) 4 mg Q4H PRN IVP PAIN 4-10 10/02/17 15:03 10/08/17 15:02 Potassium Chloride (K-Dur) 40 meq DAILY GT 10/04/17 12:45 11/03/17 12:44 10/05/17 08:45 GLENN HAYNES DO October 05, 2017 18:54
[2017-10-05 20:00] VITALS: BP 143/75
[2017-10-05] MEDS: Dyna-Hex 2% Top Sol 2oz TOPIC SCH (20:57)
[2017-10-06] VITALS: BP 156/78
[2017-10-06] MEDS: Albuterol/Ipratropium 3ml neb HHN SCH ×4 (01:54→18:30)
[2017-10-06 04:00] VITALS: BP 115/69
[2017-10-06] MEDS: HydrALAZINE 10mg Tab GT SCH ×3 (05:42→17:50)
[2017-10-06] MEDS: NovoLOG Insulin Flexpen SUBQ SCH ×3 (05:51→17:52)
[2017-10-06 08:00] VITALS: BP 158/92
[2017-10-06] MEDS: Heparin 5000 units/ml inj SUBQ SCH ×2 (08:21→21:28)
--- NOTE | 2017-10-06 11:01 | Nephrology Progress Note ---
Assessment/Plan Problem List: (1) ATN (acute tubular necrosis) (2) Septic shock (3) Respiratory failure (4) Diabetes mellitus Assessment Acute Renal failure- Cr lower ? Underlying CKD Component of dehydration, Pre renal state and Hypernatremia Acute respiratory failure, Aspiartion Pneumonia, UTI Septic Shock H/O Multiple Strokes Anemia Elevated Troponin Hyperglycemia PEG Plan increase isordil- K supplement ajust BP meds- pulm support previous plans: transfused Pulm support avoid nephrotoxics Monitor renal parameters Hemodynamic support IV iron Nitro and asa GT feeding Subjective ROS Limited/Unobtainable: No Constitutional: Reports: malaise Objective Objective Last 24 Hour Vital Signs Date Time Temp Pulse Resp B/P (MAP) Pulse Ox O2 Delivery O2 Flow Rate FiO2 10/06/17 08:19 77 158/92 10/06/17 08:00 76 10/06/17 08:00 98.5 77 18 158/92 100 Room Air 98.5 10/06/17 07:51 75 18 100 Nasal Cannula 2.0 10/06/17 07:42 28 10/06/17 07:41 75 20 100 Room Air 2.0 28 10/06/17 05:42 115/69 10/06/17 05:31 115/69 10/06/17 04:00 97.7 75 20 115/69 100 Room Air 97.7 10/06/17 04:00 78 10/06/17 02:10 65 20 99 Room Air 2.0 28 10/06/17 01:54 28 10/06/17 01:53 65 20 99 Room Air 2.0 10/06/17 00:00 97.8 69 20 156/78 99 Room Air 97.8 10/06/17 00:00 72 10/05/17 23:51 156/78 10/05/17 23:50 156/78 10/05/17 22:03 100 10/05/17 20:00 69 10/05/17 20:00 98.3 75 20 143/75 100 Room Air 98.3 10/05/17 19:23 77 28 100 Nasal Cannula 2.0 28 10/05/17 18:53 28 10/05/17 18:52 77 28 100 Nasal Cannula 2.0 10/05/17 17:16 72 129/82 10/05/17 17:15 129/82 10/05/17 17:10 129/82 10/05/17 16:00 76 10/05/17 16:00 98.4 78 28 129/82 95 Room Air 98.4 10/05/17 12:33 72 33 98 Room Air 21 10/05/17 12:26 69 33 95 Room Air 21 10/05/17 12:00 73 10/05/17 12:00 98.7 72 30 158/76 93 Room Air 98.7 10/05/17 11:51 158/72 10/05/17 11:51 158/72 Intake and Output 10/05/17 10/06/17 19:00 07:00 Intake Total 440 ml 370 ml Output Total 550 ml Balance -110 ml 370 ml Free Water 100 ml IV Total 350 ml Tube Feeding 90 ml 270 ml Output Urine Total 550 ml Height (Feet): 5 Height (Inches): 8.00 Weight (Pounds): 207 General Appearance: no apparent distress Objective no other change ROSE MARY REID October 06, 2017 11:01
--- NOTE | 2017-10-06 11:02 | GI Progress Note ---
Assessment/Plan Problems: (1) Anemia ICD Codes: D64.9 - Anemia, unspecified SNOMED: 239175462 (2) Feeding by G-tube ICD Codes: Z93.1 - Gastrostomy status SNOMED: 910770192, 437118131 (3) Acute encephalopathy ICD Codes: G93.40 - Encephalopathy, unspecified SNOMED: 9477896 (4) Transaminitis ICD Codes: R74.0 - Nonspecific elevation of levels of transaminase and lactic acid dehydrogenase [LDH] SNOMED: 316218445, 199391411 (5) Diarrhea ICD Codes: R19.7 - Diarrhea, unspecified SNOMED: 22700389 Status: stable Status Narrative Discussed with Dr. Taveras. Assessment/Plan Assessment - Anemia - abnormal LFT - Resp failure - Renal failure - Sepsis - CVA / (R) taylor - dysphagia / GT - diarrhea Recommendations - H2B BID - dc reglan given renal insufficiency - Imodium prn - TF - check abd u/s - check OB, fu hep panel - transufse PRN - abx - s/p EGD/colon 07/2017 at [facility] (HH,polyps, diverticulosis) - fu labs The patient was seen and examined at bedside and all new and available data was reviewed in the patients chart. I agree with the above findings, impression and plan. (Patient seen earlier today. Signature stamp does not reflect patient encounter time.). - Villa Taveras MD Subjective Subjective limited Objective Last 24 Hour Vital Signs Date Time Temp Pulse Resp B/P (MAP) Pulse Ox O2 Delivery O2 Flow Rate FiO2 10/06/17 08:19 77 158/92 10/06/17 08:00 76 10/06/17 08:00 98.5 77 18 158/92 100 Room Air 98.5 10/06/17 07:51 75 18 100 Nasal Cannula 2.0 10/06/17 07:42 28 10/06/17 07:41 75 20 100 Room Air 2.0 28 10/06/17 05:42 115/69 10/06/17 05:31 115/69 10/06/17 04:00 97.7 75 20 115/69 100 Room Air 97.7 10/06/17 04:00 78 10/06/17 02:10 65 20 99 Room Air 2.0 28 10/06/17 01:54 28 5/21/18 01:53 65 20 99 Room Air 2.0 28 10/06/17 00:00 97.8 69 20 156/78 99 Room Air 97.8 10/06/17 00:00 72 10/05/17 23:51 156/78 10/05/17 23:50 156/78 10/05/17 22:03 100 10/05/17 20:00 69 10/05/17 20:00 98.3 75 20 143/75 100 Room Air 98.3 10/05/17 19:23 77 28 100 Nasal Cannula 2.0 28 10/05/17 18:53 28 10/05/17 18:52 77 28 100 Nasal Cannula 2.0 28 10/05/17 17:16 72 129/82 10/05/17 17:15 129/82 10/05/17 17:10 129/82 10/05/17 16:00 76 10/05/17 16:00 98.4 78 28 129/82 95 Room Air 98.4 10/05/17 12:33 72 33 98 Room Air 21 10/05/17 12:26 69 33 95 Room Air 21 10/05/17 12:00 73 10/05/17 12:00 98.7 72 30 158/76 93 Room Air 98.7 10/05/17 11:51 158/72 10/05/17 11:51 158/72 Intake and Output 10/05/17 10/06/17 19:00 07:00 Intake Total 440 ml 370 ml Output Total 550 ml Balance -110 ml 370 ml Free Water 100 ml IV Total 350 ml Tube Feeding 90 ml 270 ml Output Urine Total 550 ml Height (Feet): 5 Height (Inches): 8.00 Weight (Pounds): 207 General Appearance: WD/WN, no apparent distress, alert Cardiovascular: normal rate Respiratory/Chest: normal breath sounds, no respiratory distress Abdominal Exam: normal bowel sounds, non tender, soft, GT site - c/d/i Extremities: normal range of motion, non-tender Ramandeep Francois NP October 06, 2017 11:02
--- NOTE | 2017-10-06 11:16 | Diagnostic Imaging Report ---
Indication: Dyspnea Comparison: 10/02/2017 A single view chest radiograph was obtained. Findings: There is a focus of airspace disease suspected at the left lung base. Costophrenic angle slightly blunted. Heart size is enlarged but stable. Lung volumes are low. PICC line is stable. IMPRESSION: Suspect a left basilar infiltrate. Correlate clinically. Small pleural effusion may be present also.
[2017-10-06 12:00] VITALS: BP 160/82
--- NOTE | 2017-10-06 12:53 | Pulmonology Progress Note ---
Assessment/Plan Problems: (1) Pneumonia (2) Aspiration pneumonia (3) Respiratory failure (4) Feeding by G-tube (5) Acute encephalopathy (6) s/p multiple lacunar strokes, old (7) Encephalopathy due to infection (8) Bacterial infection due to Staphylococcus (9) Diabetes mellitus (10) Anemia Assessment/Plan -Optimize pulmonary hygiene/mobilize as tolerated -Titrate down FiO2 to keep SaO2 > 90% -BiPAP PRN & qHS -Observe off Abx per ID -Monitor volumes and renal function, start D5W @ 50, lasix 20 IV x 1 -F/U SPEP and UPEP given high TP and low ALB -TF's as tolerated -DVT Px: Hep SQ -DNAR/DNI -F/U repeat CXR D/W RT, RN and family @ bedside Subjective Allergies: Coded Allergies: No Known Allergies (Verified , 01/02/09) Subjective Weekend events reviewed AFVSS, stable O2 needs, off BiPAP Tommy TF's No change in MS, no cough, no SOB, no F/C Objective Last 24 Hour Vital Signs Date Time Temp Pulse Resp B/P (MAP) Pulse Ox O2 Delivery O2 Flow Rate FiO2 10/06/17 12:05 160/82 10/06/17 12:00 160/82 10/06/17 08:19 77 158/92 10/06/17 08:00 76 10/06/17 08:00 98.5 77 18 158/92 100 Room Air 98.5 10/06/17 07:51 75 18 100 Nasal Cannula 2.0 10/06/17 07:42 28 10/06/17 07:41 75 20 100 Room Air 2.0 28 10/06/17 05:42 115/69 10/06/17 05:31 115/69 10/06/17 04:00 97.7 75 20 115/69 100 Room Air 97.7 10/06/17 04:00 78 10/06/17 02:10 65 20 99 Room Air 2.0 28 10/06/17 01:54 28 10/06/17 01:53 65 20 99 Room Air 2.0 28 10/06/17 00:00 97.8 69 20 156/78 99 Room Air 97.8 10/06/17 00:00 72 10/05/17 23:51 156/78 10/05/17 23:50 156/78 10/05/17 22:03 100 10/05/17 20:00 69 10/05/17 20:00 98.3 75 20 143/75 100 Room Air 98.3 10/05/17 19:23 77 28 100 Nasal Cannula 2.0 28 10/05/17 18:53 28 10/05/17 18:52 77 28 100 Nasal Cannula 2.0 28 10/05/17 17:16 72 129/82 10/05/17 17:15 129/82 10/05/17 17:10 129/82 10/05/17 16:00 76 10/05/17 16:00 98.4 78 28 129/82 95 Room Air 98.4 Intake and Output 10/05/17 10/06/17 19:00 07:00 Intake Total 440 ml 420 ml Output Total 550 ml Balance -110 ml 420 ml Free Water 100 ml IV Total 350 ml 50 ml Tube Feeding 90 ml 270 ml Output Urine Total 550 ml General Appearance: no acute distress, cachetic, other - non-verbal HEENT: normocephalic, atraumatic, anicteric, mucous membranes moist Respiratory/Chest: chest wall non-tender, lungs clear, normal breath sounds, no respiratory distress Cardiovascular: normal peripheral pulses, normal rate, regular rhythm Abdomen: normal bowel sounds, non distended, other - GT Extremities: no cyanosis, no clubbing, no edema Current Medications Medications (Trade) Dose Ordered Sig/Keira Route PRN Reason Start Time Stop Time Status Last Admin Dose Admin Acetaminophen (Tylenol) 650 mg Q6H PRN NG Mild Pain/Temp > 100.5 10/02/17 14:58 10/22/17 14:57 Albuterol/ Ipratropium (Albuterol/ Ipratropium) 3 ml Q6HRT HHN 10/02/17 19:00 10/07/17 12:59 10/06/17 07:40 Amlodipine Besylate (Norvasc) 5 mg BID ORAL 10/02/17 18:00 11/01/17 17:59 10/06/17 08:19 Chlorhexidine Gluconate (Michelle-Hex 2%) 1 applic DAILY@2000 TOPIC 10/02/17 20:00 10/27/17 19:59 10/05/17 20:57 Clonidine HCl (Catapres Tab) 0.1 mg Q6H GT 10/02/17 18:30 11/01/17 18:29 10/06/17 12:05 Dextrose 1,000 ml @ 50 mls/hr Q20H IV 10/03/17 10:00 11/02/17 09:59 10/05/17 21:06 Dextrose (Dextrose 50%) 25 ml STAT PRN IV Hypoglycemia 10/02/17 14:58 11/01/17 14:57 Dextrose (Dextrose 50%) 50 ml STAT PRN IV Hypoglycemia 10/02/17 14:58 11/01/17 14:57 Famotidine (Pepcid) 20 mg BID GT 10/02/17 18:00 11/01/17 17:59 10/06/17 08:18 Heparin Sodium (Porcine) (Heparin 5000 units/ml) 5,000 units EVERY 12 HOURS SUBQ 10/02/17 21:00 10/27/17 20:59 10/06/17 08:21 Hydralazine HCl (Apresoline) 20 mg Q6HR GT 10/05/17 18:00 11/02/17 17:59 10/06/17 12:00 Hydralazine HCl (Apresoline) 25 mg Q4H PRN ORAL bp over 160 syst 10/02/17 15:01 11/01/17 15:00 10/05/17 04:31 Insulin Aspart (NovoLOG) EVERY 6 HOURS SUBQ 10/02/17 18:00 10/19/17 16:29 10/06/17 12:04 Loperamide HCl (Imodium) 2 mg Q6H PRN NG Diarrhea 10/02/17 15:02 10/25/17 15:01 Lorazepam (Ativan 2mg/ml 1ml) 1 mg Q4H PRN IV For Anxiety 10/02/17 15:02 10/09/17 15:01 Morphine Sulfate (Morphine Sulfate) 4 mg Q4H PRN IVP PAIN 4-10 10/02/17 15:03 10/08/17 15:02 Potassium Chloride (K-Dur) 40 meq DAILY GT 10/04/17 12:45 11/03/17 12:44 10/06/17 08:18 CHRISTINA KIDD M.D. October 06, 2017 12:53
--- NOTE | 2017-10-06 13:40 | Consultation ---
History of Present Illness General Date patient seen: October 06, 2017 Chief Complaint: Dyspnea/Respdistress Present Illness HPI 87-year-old man, who [facility] with sepsis and shock and respiratory failure requiring intubation. the pt was agitated last night and is in restrains. the pt was confused and the daughter was at bedside Allergies: Coded Allergies: No Known Allergies (Verified , 01/02/09) Medication History Scheduled Acetaminophen (Acetaminophen), 650 MG GT EVERY 4 HOURS, (Reported) Amino Acids/Protein Hydrolys (Pro-Stat Liquid), 30 ML GT DAILY, (Reported) Amlodipine Besylate* (Amlodipine Besylate*), 10 MG GT DAILY, (Reported) Arginine/Ascorbate Sod/Romina AC (Arginaid Powder), 1 EACH PO BID, (Reported) Ascorbic Acid* (Vitamin C*), 500 MG GT DAILY, (Reported) Ascorbic Acid* (Vitamin C*), 500 MG GT DAILY, (Reported) Aspirin* (Aspirin*), 81 MG GT DAILY, (Reported) Atorvastatin Calcium* (Atorvastatin Calcium*), 80 MG GT BEDTIME, (Reported) Bacitracin Zinc (Bacitracin Zinc), 1 APPLIC TP THREE TIMES A DAY, (Reported) Carvedilol (Coreg), 25 MG GT EVERY 12 HOURS, (Reported) Clonidine Hcl* (Catapres*), 0.1 MG GT DAILY, (Reported) Clopidogrel Bisulfate* (Plavix*), 75 MG GT DAILY, (Reported) Docusate Sodium* (Colace*), 100 MG GT DAILY, (Reported) Enoxaparin* (Lovenox*), 40 MG SUBQ DAILY, (Reported) Epoetin Sathish (Epogen), 7,000 UNIT SUBQ 3XW, (Reported) Finasteride* (Proscar*), 5 MG GT DAILY, (Reported) Gel Base No.41 (Hydrogel), 1 APPLIC TOPIC DAILY, (Reported) Heparin Sod (Porcine) (Heparin Sodium*), 5,000 UNITS SUBQ EVERY 12 HOURS, ( Reported) Hydralazine HCl (Hydralazine HCl), 25 MG GT Q8HR, (Reported) Hydralazine Hcl* (Hydralazine Hcl*), 50 MG GT Q8HR Lisinopril* (Lisinopril*), 40 MG GT DAILY, (Reported) Lorazepam (Lorazepam), 1 MG IV Q4H, (Reported) Metoprolol Tartrate (Metoprolol Tartrate), 12.5 MG GT Q12HR Metoprolol Tartrate* (Metoprolol Tartrate*), 25 MG GT EVERY 12 HOURS, (Reported) Multivitamin With Minerals (Multivitamins With Minerals*), 1 TAB GT DAILY, ( Reported) Pantoprazole* (Protonix*), 40 MG IVP EVERY 12 HOURS, (Reported) Ranitidine Hcl* (Zantac*), 150 MG ORAL TWICE A DAY, (Reported) Tamsulosin HCl (Flomax), 0.8 MG GT DAILY, (Reported) Vitamin A & D (Vitamin A & D Ointment), 1 APPLIC TOPIC DAILY, (Reported) Zinc Sulfate (Zinc Sulfate*), 220 MG GT DAILY, (Reported) Scheduled PRN Bisacodyl* (Dulcolax*), 10 MG RECTAL ONCE PRN for Constipation, (Reported) Diphenhydramine Hcl* (Benadryl*), 25 MG ORAL Q8HR PRN for Itching, (Reported) Ipratropium [place] 0.5MG/2.5ML (Ipratropium [place] 0.5MG/2.5ML), 0.5 MG HHN Q4HR PRN for Shortness of Breath, (Reported) Ipratropium/Albuterol Sulfate (DuoNeb 0.5-3(2.5)mg/3ml), 3 ML HHN EVERY 4 HOURS PRN for Shortness of Breath, (Reported) Ondansetron* (Zofran*), 4 MG IV Q6H PRN for Nausea & Vomiting, (Reported) Ondansetron* (Zofran*), 4 MG GT Q6H PRN for Nausea & Vomiting, (Reported) Polyethylene Glycol 3350* (Miralax*), 17 GM ORAL DAILY PRN for Constipation, ( Reported) Miscellaneous Medications [d5w 50c 3d] Patient History Healthcare decision maker Resuscitation status Full Code Advanced Directive on File No Physical Exam Last 24 Hour Vital Signs Date Time Temp Pulse Resp B/P (MAP) Pulse Ox O2 Delivery O2 Flow Rate FiO2 10/06/17 13:15 81 22 100 Nasal Cannula 2.0 10/06/17 13:08 28 10/06/17 13:05 77 24 100 Room Air 2.0 28 10/06/17 12:05 160/82 10/06/17 12:00 160/82 10/06/17 08:19 77 158/92 10/06/17 08:00 76 10/06/17 08:00 98.5 77 18 158/92 100 Room Air 98.5 10/06/17 07:51 75 18 100 Nasal Cannula 2.0 10/06/17 07:42 28 10/06/17 07:41 75 20 100 Room Air 2.0 28 10/06/17 05:42 115/69 10/06/17 05:31 115/69 10/06/17 04:00 97.7 75 20 115/69 100 Room Air 97.7 10/06/17 04:00 78 10/06/17 02:10 65 20 99 Room Air 2.0 28 10/06/17 01:54 28 10/06/17 01:53 65 20 99 Room Air 2.0 28 10/06/17 00:00 97.8 69 20 156/78 99 Room Air 97.8 10/06/17 00:00 72 10/05/17 23:51 156/78 10/05/17 23:50 156/78 10/05/17 22:03 100 10/05/17 20:00 69 10/05/17 20:00 98.3 75 20 143/75 100 Room Air 98.3 10/05/17 19:23 77 28 100 Nasal Cannula 2.0 28 10/05/17 18:53 28 10/05/17 18:52 77 28 100 Nasal Cannula 2.0 28 10/05/17 17:16 72 129/82 10/05/17 17:15 129/82 10/05/17 17:10 129/82 10/05/17 16:00 76 10/05/17 16:00 98.4 78 28 129/82 95 Room Air 98.4 Intake and Output 10/05/17 10/06/17 19:00 07:00 Intake Total 440 ml 420 ml Output Total 550 ml Balance -110 ml 420 ml Free Water 100 ml IV Total 350 ml 50 ml Tube Feeding 90 ml 270 ml Output Urine Total 550 ml Height (Feet): 5 Height (Inches): 8.00 Weight (Pounds): 207 Medications Current Medications Medications (Trade) Dose Ordered Sig/Keira Route PRN Reason Start Time Stop Time Status Last Admin Dose Admin Acetaminophen (Tylenol) 650 mg Q6H PRN NG Mild Pain/Temp > 100.5 10/02/17 14:58 10/22/17 14:57 Albuterol/ Ipratropium (Albuterol/ Ipratropium) 3 ml Q6HRT HHN 10/02/17 19:00 10/07/17 12:59 10/06/17 13:05 Amlodipine Besylate (Norvasc) 5 mg BID ORAL 10/02/17 18:00 11/01/17 17:59 10/06/17 08:19 Chlorhexidine Gluconate (Michelle-Hex 2%) 1 applic DAILY@2000 TOPIC 10/02/17 20:00 10/27/17 19:59 10/05/17 20:57 Clonidine HCl (Catapres Tab) 0.1 mg Q6H GT 10/02/17 18:30 11/01/17 18:29 10/06/17 12:05 Dextrose 1,000 ml @ 50 mls/hr Q20H IV 10/03/17 10:00 11/02/17 09:59 10/05/17 21:06 Dextrose (Dextrose 50%) 25 ml STAT PRN IV Hypoglycemia 10/02/17 14:58 11/01/17 14:57 Dextrose (Dextrose 50%) 50 ml STAT PRN IV Hypoglycemia 10/02/17 14:58 11/01/17 14:57 Famotidine (Pepcid) 20 mg BID GT 10/02/17 18:00 11/01/17 17:59 10/06/17 08:18 Heparin Sodium (Porcine) (Heparin 5000 units/ml) 5,000 units EVERY 12 HOURS SUBQ 10/02/17 21:00 10/27/17 20:59 10/06/17 08:21 Hydralazine HCl (Apresoline) 20 mg Q6HR GT 10/05/17 18:00 11/02/17 17:59 10/06/17 12:00 Hydralazine HCl (Apresoline) 25 mg Q4H PRN ORAL bp over 160 syst 10/02/17 15:01 11/01/17 15:00 10/05/17 04:31 Insulin Aspart (NovoLOG) EVERY 6 HOURS SUBQ 10/02/17 18:00 10/19/17 16:29 10/06/17 12:04 Loperamide HCl (Imodium) 2 mg Q6H PRN NG Diarrhea 10/02/17 15:02 10/25/17 15:01 Lorazepam (Ativan 2mg/ml 1ml) 1 mg Q4H PRN IV For Anxiety 10/02/17 15:02 10/09/17 15:01 Morphine Sulfate (Morphine Sulfate) 4 mg Q4H PRN IVP PAIN 4-10 10/02/17 15:03 10/08/17 15:02 Potassium Chloride (K-Dur) 40 meq DAILY GT 10/04/17 12:45 11/03/17 12:44 10/06/17 08:18 Juventino Ochoa M.D. October 06, 2017 13:40
[2017-10-06 16:00] VITALS: BP 139/87
[2017-10-06 20:00] VITALS: BP 102/67
[2017-10-06] MEDS: Dyna-Hex 2% Top Sol 2oz TOPIC SCH (21:36)
[2017-10-07] VITALS: BP 140/82
[2017-10-07] MEDS: NovoLOG Insulin Flexpen SUBQ SCH ×5 (00:30→23:55)
[2017-10-07] MEDS: HydrALAZINE 10mg Tab GT SCH ×4 (01:17→18:42)
[2017-10-07] MEDS: Albuterol/Ipratropium 3ml neb HHN SCH ×3 (01:21→13:42)
[2017-10-07 04:00] VITALS: BP 149/84
[2017-10-07 06:07] LABS: BASOPHILS % (AUTO) 0.6 % (0.0-2.0); HEMATOCRIT 31.4 % (42.0-52.0); HEMOGLOBIN 9.9 G/DL (14.2-18.0); LYMPHOCYTES % (AUTO) 26.3 % (20.0-45.0); MEAN CORPUSCULAR VOLUME 84 FL (80-99); MONOCYTES % (AUTO) 8.6 % (1.0-10.0); NEUTROPHILS % (AUTO) 58.6 % (45.0-75.0); PLATELET COUNT 207 K/UL (150-450); RED BLOOD COUNT 3.73 M/UL (4.70-6.10); RED CELL DISTRIBUTION WIDTH 17.1 % (11.6-14.8); WHITE BLOOD COUNT 8.9 K/UL (4.8-10.8)
[2017-10-07 06:51] LABS: ALANINE AMINOTRANSFERASE 22 U/L (12-78); ALBUMIN 1.8 G/DL (3.4-5.0); ALBUMIN/GLOBULIN RATIO 0.3 (1.0-2.7); ALKALINE PHOSPHATASE 93 U/L (46-116); ANION GAP 7 mmol/L (5-15); ASPARTATE AMINO TRANSFERASE 21 U/L (15-37); BILIRUBIN,TOTAL 0.3 MG/DL (0.2-1.0); BLOOD UREA NITROGEN 23 mg/dL (7-18); CALCIUM 8.8 MG/DL (8.5-10.1); CARBON DIOXIDE 27 MMOL/L (21-32); CHLORIDE 92 MMOL/L (98-107); CREATININE 1.7 MG/DL (0.55-1.30); POTASSIUM 3.8 MMOL/L (3.5-5.1); SODIUM 126 MMOL/L (136-145)
[2017-10-07 08:00] VITALS: BP 161/109
[2017-10-07] MEDS: Heparin 5000 units/ml inj SUBQ SCH ×2 (08:48→20:30)
--- NOTE | 2017-10-07 10:13 | Pulmonology Progress Note ---
Assessment/Plan Problems: (1) Pneumonia (2) Aspiration pneumonia (3) Respiratory failure (4) Feeding by G-tube (5) Acute encephalopathy (6) s/p multiple lacunar strokes, old (7) Encephalopathy due to infection (8) Bacterial infection due to Staphylococcus (9) Diabetes mellitus (10) Anemia Assessment/Plan -Optimize pulmonary hygiene/mobilize as tolerated -Titrate down FiO2 to keep SaO2 > 90% -BiPAP PRN & qHS -Observe off Abx per ID -Monitor volumes and renal function, F/U renal recs -F/U UPEP, heme eval -TF's as tolerated -DVT Px: Hep SQ -DNAR/DNI -Family discussing with uriel Re: new room D/W RT, RN and family @ bedside Subjective Allergies: Coded Allergies: No Known Allergies (Verified , 01/02/09) Subjective BURKE AFVSS, stable O2 needs, off BiPAP Tommy TF's No change in MS, no cough, no SOB, no F/C Objective Last 24 Hour Vital Signs Date Time Temp Pulse Resp B/P (MAP) Pulse Ox O2 Delivery O2 Flow Rate FiO2 10/07/17 09:54 Nasal Cannula 2.0 28 10/07/17 09:53 98 Nasal Cannula 2.0 28 10/07/17 08:43 79 147/80 10/07/17 07:58 79 23 100 Nasal Cannula 2.0 10/07/17 07:50 88 28 92 Nasal Cannula 2.0 10/07/17 06:19 147/80 10/07/17 06:19 147/80 10/07/17 04:41 81 10/07/17 04:00 98.0 79 20 149/84 95 Room Air 98.0 10/07/17 01:28 72 20 100 Nasal Cannula 2.0 10/07/17 01:23 28 10/07/17 01:21 75 20 100 Nasal Cannula 2.0 28 10/07/17 01:17 140/82 10/07/17 01:17 140/82 10/07/17 00:06 80 10/07/17 00:00 98.1 75 20 140/82 100 Room Air 98.1 10/06/17 20:48 81 20 100 Nasal Cannula 2.0 10/06/17 20:00 98.4 75 20 102/67 98 Room Air 98.4 10/06/17 19:27 72 10/06/17 18:41 78 20 100 Nasal Cannula 2.0 10/06/17 18:30 28 10/06/17 18:30 73 20 100 Nasal Cannula 2.0 28 10/06/17 17:50 139/87 10/06/17 17:49 83 139/87 10/06/17 17:48 139/87 10/06/17 16:00 98.2 83 19 139/87 97 Room Air 98.2 10/06/17 16:00 87 10/06/17 13:15 81 22 100 Nasal Cannula 2.0 10/06/17 13:08 28 10/06/17 13:05 77 24 100 Room Air 2.0 28 10/06/17 12:05 160/82 10/06/17 12:00 98.7 82 18 160/82 97 Room Air 98.7 10/06/17 12:00 83 10/06/17 12:00 160/82 Intake and Output 10/06/17 10/07/17 19:00 07:00 Intake Total 1040 ml 940 ml Output Total 700 ml 2000 ml Balance 340 ml -1060 ml Free Water 100 ml IV Total 550 ml 600 ml Tube Feeding 390 ml 210 ml Other 100 ml 30 ml Output Urine Total 700 ml 1500 ml Stool Total 500 ml General Appearance: cachetic, other - obtundd HEENT: normocephalic, atraumatic, anicteric, mucous membranes moist Respiratory/Chest: chest wall non-tender, lungs clear, normal breath sounds, no respiratory distress Cardiovascular: normal peripheral pulses, normal rate, regular rhythm Abdomen: normal bowel sounds, soft, non tender, no organomegaly, non distended , other - GT" Extremities: no cyanosis, no clubbing, no edema Laboratory Tests 10/07/17 05:00: White Blood Count 8.9, Red Blood Count 3.73L, Hemoglobin 9.9L, Hematocrit 31.4L , Mean Corpuscular Volume 84, Mean Corpuscular Hemoglobin 26.6L, Mean Corpuscular Hemoglobin Concent 31.6L, Red Cell Distribution Width 17.1H, Platelet Count 207, Mean Platelet Volume 6.2L, Neutrophils (%) (Auto) 58.6, Lymphocytes (%) (Auto) 26.3, Monocytes (%) (Auto) 8.6, Eosinophils (%) (Auto) 6.0H, Basophils (%) (Auto) 0.6, Sodium Level 126L, Potassium Level 3.8, Chloride Level 92L, Carbon Dioxide Level 27, Anion Gap 7, Blood Urea Nitrogen 23H, Creatinine 1.7H, Estimat Glomerular Filtration Rate , Glucose Level 353H, Calcium Level 8.8, Total Bilirubin 0.3, Aspartate Amino Transf (AST/SGOT) 21, Alanine Aminotransferase (ALT/SGPT) 22, Alkaline Phosphatase 93, Total Protein 8.0, Albumin 1.8L, Globulin 6.2, Albumin/Globulin Ratio 0.3L Current Medications Medications (Trade) Dose Ordered Sig/Keira Route PRN Reason Start Time Stop Time Status Last Admin Dose Admin Acetaminophen (Tylenol) 650 mg Q6H PRN NG Mild Pain/Temp > 100.5 10/02/17 14:58 10/22/17 14:57 Albuterol/ Ipratropium (Albuterol/ Ipratropium) 3 ml Q6HRT HHN 10/02/17 19:00 10/07/17 12:59 10/07/17 07:57 Amlodipine Besylate (Norvasc) 5 mg BID ORAL 10/02/17 18:00 11/01/17 17:59 10/07/17 08:43 Chlorhexidine Gluconate (Michelle-Hex 2%) 1 applic DAILY@2000 TOPIC 10/02/17 20:00 10/27/17 19:59 10/06/17 21:36 Clonidine HCl (Catapres Tab) 0.1 mg Q6H GT 10/02/17 18:30 11/01/17 18:29 10/07/17 06:19 Dextrose (Dextrose 50%) 25 ml STAT PRN IV Hypoglycemia 10/02/17 14:58 11/01/17 14:57 Dextrose (Dextrose 50%) 50 ml STAT PRN IV Hypoglycemia 10/02/17 14:58 11/01/17 14:57 Famotidine (Pepcid) 20 mg BID GT 10/02/17 18:00 11/01/17 17:59 10/07/17 08:41 Heparin Sodium (Porcine) (Heparin 5000 units/ml) 5,000 units EVERY 12 HOURS SUBQ 10/02/17 21:00 10/27/17 20:59 10/07/17 08:48 Hydralazine HCl (Apresoline) 20 mg Q6HR GT 10/05/17 18:00 11/02/17 17:59 10/07/17 06:19 Hydralazine HCl (Apresoline) 25 mg Q4H PRN ORAL bp over 160 syst 10/02/17 15:01 11/01/17 15:00 10/05/17 04:31 Insulin Aspart (NovoLOG) EVERY 6 HOURS SUBQ 10/02/17 18:00 10/19/17 16:29 10/06/17 17:52 Loperamide HCl (Imodium) 2 mg Q6H PRN NG Diarrhea 10/02/17 15:02 10/25/17 15:01 Lorazepam (Ativan 2mg/ml 1ml) 1 mg Q4H PRN IV For Anxiety 10/02/17 15:02 10/09/17 15:01 Morphine Sulfate (Morphine Sulfate) 4 mg Q4H PRN IVP PAIN 4-10 10/02/17 15:03 10/08/17 15:02 Potassium Chloride (K-Dur) 40 meq DAILY GT 10/04/17 12:45 11/03/17 12:44 10/07/17 08:42 Quetiapine Fumarate (SEROquel) 12.5 mg EVERY 6 HOURS PRN ORAL Agitation 10/06/17 13:45 11/05/17 13:44 Sodium Chloride 250 ml @ 30 mls/hr ONCE ONCE IVPB 10/07/17 10:00 10/07/17 18:19 CHRISTINA VEE M.D. October 07, 2017 10:13
--- NOTE | 2017-10-07 10:42 | Infectious Diseases Prog Note ---
Assessment/Plan Assessment/Plan A: Sepsis/septic shock resolved Bacteremia with Staph capitis/ contamination Pneumonia with MDR Acinetobacter & Proteus UTI with Proteus treated Respiratory failure resolved ATN DM Anemia Elevated transaminase DNR, DNI P: observe off antibiotic Remove PICC line before discharge Subjective ROS Limited/Unobtainable: Yes Neurologic: Reports: confusion, other - on restraint Allergies: Coded Allergies: No Known Allergies (Verified , 01/02/09) Objective Vital Signs Last 24 Hour Vital Signs Date Time Temp Pulse Resp B/P (MAP) Pulse Ox O2 Delivery O2 Flow Rate FiO2 10/07/17 09:54 Nasal Cannula 2.0 28 10/07/17 09:53 98 Nasal Cannula 2.0 10/07/17 08:43 79 147/80 10/07/17 07:58 79 23 100 Nasal Cannula 2.0 10/07/17 07:50 88 28 92 Nasal Cannula 2.0 10/07/17 06:19 147/80 10/07/17 06:19 147/80 10/07/17 04:41 81 10/07/17 04:00 98.0 79 20 149/84 95 Room Air 98.0 10/07/17 01:28 72 20 100 Nasal Cannula 2.0 10/07/17 01:23 28 10/07/17 01:21 75 20 100 Nasal Cannula 2.0 10/07/17 01:17 140/82 10/07/17 01:17 140/82 10/07/17 00:06 80 10/07/17 00:00 98.1 75 20 140/82 100 Room Air 98.1 10/06/17 20:48 81 20 100 Nasal Cannula 2.0 10/06/17 20:00 98.4 75 20 102/67 98 Room Air 98.4 10/06/17 19:27 72 10/06/17 18:41 78 20 100 Nasal Cannula 2.0 10/06/17 18:30 28 10/06/17 18:30 73 20 100 Nasal Cannula 2.0 10/06/17 17:50 139/87 10/06/17 17:49 83 139/87 10/06/17 17:48 139/87 10/06/17 16:00 98.2 83 19 139/87 97 Room Air 98.2 10/06/17 16:00 87 10/06/17 13:15 81 22 100 Nasal Cannula 2.0 10/06/17 13:08 28 10/06/17 13:05 77 24 100 Room Air 2.0 28 10/06/17 12:05 160/82 10/06/17 12:00 98.7 82 18 160/82 97 Room Air 98.7 10/06/17 12:00 83 10/06/17 12:00 160/82 Height (Feet): 5 Height (Inches): 8.00 Weight (Pounds): 214 HEENT: mucous membranes moist Respiratory/Chest: lungs clear, other - O2 by nasal cannula Cardiovascular: normal rate, other - left arm PICC line Abdomen: soft, non tender, other - GT feeding, rectal tube Extremities: no edema Neurologic/Psychiatric: disoriented Laboratory Tests Test 10/07/17 05:00 White Blood Count 8.9 K/UL (4.8-10.8) Red Blood Count 3.73 M/UL (4.70-6.10) L Hemoglobin 9.9 G/DL (14.2-18.0) L Hematocrit 31.4 % (42.0-52.0) L Mean Corpuscular Volume 84 FL (80-99) Mean Corpuscular Hemoglobin 26.6 PG (27.0-31.0) L Mean Corpuscular Hemoglobin Concent 31.6 G/DL (32.0-36.0) L Red Cell Distribution Width 17.1 % (11.6-14.8) H Platelet Count 207 K/UL (150-450) Mean Platelet Volume 6.2 FL (6.5-10.1) L Neutrophils (%) (Auto) 58.6 % (45.0-75.0) Lymphocytes (%) (Auto) 26.3 % (20.0-45.0) Monocytes (%) (Auto) 8.6 % (1.0-10.0) Eosinophils (%) (Auto) 6.0 % (0.0-3.0) H Basophils (%) (Auto) 0.6 % (0.0-2.0) Sodium Level 126 MMOL/L (136-145) L Potassium Level 3.8 MMOL/L (3.5-5.1) Chloride Level 92 MMOL/L (98-107) L Carbon Dioxide Level 27 MMOL/L (21-32) Anion Gap 7 mmol/L (5-15) Blood Urea Nitrogen 23 mg/dL (7-18) H Creatinine 1.7 MG/DL (0.55-1.30) H Estimat Glomerular Filtration Rate mL/min (>60) Glucose Level 353 MG/DL (74-106) H Calcium Level 8.8 MG/DL (8.5-10.1) Total Bilirubin 0.3 MG/DL (0.2-1.0) Aspartate Amino Transf (AST/SGOT) 21 U/L (15-37) Alanine Aminotransferase (ALT/SGPT) 22 U/L (12-78) Alkaline Phosphatase 93 U/L (46-116) Total Protein 8.0 G/DL (6.4-8.2) Albumin 1.8 G/DL (3.4-5.0) L Globulin 6.2 g/dL Albumin/Globulin Ratio 0.3 (1.0-2.7) L Current Medications Medications (Trade) Dose Ordered Sig/Keira Route PRN Reason Start Time Stop Time Status Last Admin Dose Admin Acetaminophen (Tylenol) 650 mg Q6H PRN NG Mild Pain/Temp > 100.5 10/02/17 14:58 10/22/17 14:57 Albuterol/ Ipratropium (Albuterol/ Ipratropium) 3 ml Q6HRT HHN 10/02/17 19:00 10/07/17 12:59 10/07/17 07:57 Amlodipine Besylate (Norvasc) 5 mg BID ORAL 10/02/17 18:00 11/01/17 17:59 10/07/17 08:43 Chlorhexidine Gluconate (Michelle-Hex 2%) 1 applic DAILY@1999 TOPIC 10/02/17 20:00 10/27/17 19:59 10/06/17 21:36 Clonidine HCl (Catapres Tab) 0.1 mg Q6H GT 10/02/17 18:30 11/01/17 18:29 10/07/17 06:19 Dextrose (Dextrose 50%) 25 ml STAT PRN IV Hypoglycemia 10/02/17 14:58 11/01/17 14:57 Dextrose (Dextrose 50%) 50 ml STAT PRN IV Hypoglycemia 10/02/17 14:58 11/01/17 14:57 Famotidine (Pepcid) 20 mg BID GT 10/02/17 18:00 11/01/17 17:59 10/07/17 08:41 Heparin Sodium (Porcine) (Heparin 5000 units/ml) 5,000 units EVERY 12 HOURS SUBQ 10/02/17 21:00 10/27/17 20:59 10/07/17 08:48 Hydralazine HCl (Apresoline) 20 mg Q6HR GT 10/05/17 18:00 11/02/17 17:59 10/07/17 06:19 Hydralazine HCl (Apresoline) 25 mg Q4H PRN ORAL bp over 160 syst 10/02/17 15:01 11/01/17 15:00 10/05/17 04:31 Insulin Aspart (NovoLOG) EVERY 6 HOURS SUBQ 10/02/17 18:00 10/19/17 16:29 10/06/17 17:52 Loperamide HCl (Imodium) 2 mg Q6H PRN NG Diarrhea 10/02/17 15:02 10/25/17 15:01 Lorazepam (Ativan 2mg/ml 1ml) 1 mg Q4H PRN IV For Anxiety 10/02/17 15:02 10/09/17 15:01 Morphine Sulfate (Morphine Sulfate) 4 mg Q4H PRN IVP PAIN 4-10 10/02/17 15:03 10/08/17 15:02 Potassium Chloride (K-Dur) 40 meq DAILY GT 10/04/17 12:45 11/03/17 12:44 10/07/17 08:42 Quetiapine Fumarate (SEROquel) 12.5 mg EVERY 6 HOURS PRN ORAL Agitation 10/06/17 13:45 11/05/17 13:44 Sodium Chloride 250 ml @ 30 mls/hr ONCE IV 10/07/17 11:30 10/07/17 13:00 ANDRES SAVAGE October 07, 2017 10:42
[2017-10-07] MEDS ORDERED: NaCl 3% 500ml 250 ML IV SCH (11:30)
[2017-10-07 12:00] VITALS: BP 141/79
--- NOTE | 2017-10-07 13:54 | Nephrology Progress Note ---
Assessment/Plan Problem List: (1) ATN (acute tubular necrosis) (2) Septic shock (3) Respiratory failure (4) Diabetes mellitus Assessment low Na Acute Renal failure- Cr lower ? Underlying CKD Component of dehydration, Pre renal state and Hypernatremia Acute respiratory failure, Aspiartion Pneumonia, UTI Septic Shock H/O Multiple Strokes Anemia Elevated Troponin Hyperglycemia PEG Plan 3% Saline- increase isordil- K supplement ajust BP meds- pulm support previous plans: transfused Pulm support avoid nephrotoxics Monitor renal parameters Hemodynamic support IV iron Nitro and asa GT feeding Subjective ROS Limited/Unobtainable: No Constitutional: Reports: malaise Objective Objective Last 24 Hour Vital Signs Date Time Temp Pulse Resp B/P (MAP) Pulse Ox O2 Delivery O2 Flow Rate FiO2 10/07/17 13:43 68 28 100 Nasal Cannula 2.0 10/07/17 12:40 147/80 10/07/17 12:39 147/80 10/07/17 09:54 Nasal Cannula 2.0 10/07/17 09:53 98 Nasal Cannula 2.0 10/07/17 08:43 79 147/80 10/07/17 08:00 97.5 93 17 161/109 95 Room Air 97.5 10/07/17 08:00 80 10/07/17 07:58 79 23 100 Nasal Cannula 2.0 10/07/17 07:50 88 28 92 Nasal Cannula 2.0 10/07/17 06:19 147/80 10/07/17 06:19 147/80 10/07/17 04:41 81 10/07/17 04:00 98.0 79 20 149/84 95 Room Air 98.0 10/07/17 01:28 72 20 100 Nasal Cannula 2.0 10/07/17 01:23 28 10/07/17 01:21 75 20 100 Nasal Cannula 2.0 28 10/07/17 01:17 140/82 10/07/17 01:17 140/82 10/07/17 00:06 80 10/07/17 00:00 98.1 75 20 140/82 100 Room Air 98.1 10/06/17 20:48 81 20 100 Nasal Cannula 2.0 10/06/17 20:00 98.4 75 20 102/67 98 Room Air 98.4 10/06/17 19:27 72 10/06/17 18:41 78 20 100 Nasal Cannula 2.0 10/06/17 18:30 28 10/06/17 18:30 73 20 100 Nasal Cannula 2.0 28 10/06/17 17:50 139/87 10/06/17 17:49 83 139/87 10/06/17 17:48 139/87 10/06/17 16:00 98.2 83 19 139/87 97 Room Air 98.2 10/06/17 16:00 87 Intake and Output 10/06/17 10/07/17 19:00 07:00 Intake Total 1040 ml 990 ml Output Total 700 ml 2000 ml Balance 340 ml -1010 ml Free Water 100 ml IV Total 550 ml 650 ml Tube Feeding 390 ml 210 ml Other 100 ml 30 ml Output Urine Total 700 ml 1500 ml Stool Total 500 ml Laboratory Tests 10/07/17 05:00: White Blood Count 8.9, Red Blood Count 3.73L, Hemoglobin 9.9L, Hematocrit 31.4L , Mean Corpuscular Volume 84, Mean Corpuscular Hemoglobin 26.6L, Mean Corpuscular Hemoglobin Concent 31.6L, Red Cell Distribution Width 17.1H, Platelet Count 207, Mean Platelet Volume 6.2L, Neutrophils (%) (Auto) 58.6, Lymphocytes (%) (Auto) 26.3, Monocytes (%) (Auto) 8.6, Eosinophils (%) (Auto) 6.0H, Basophils (%) (Auto) 0.6, Sodium Level 126L, Potassium Level 3.8, Chloride Level 92L, Carbon Dioxide Level 27, Anion Gap 7, Blood Urea Nitrogen 23H, Creatinine 1.7H, Estimat Glomerular Filtration Rate , Glucose Level 353H, Calcium Level 8.8, Total Bilirubin 0.3, Aspartate Amino Transf (AST/SGOT) 21, Alanine Aminotransferase (ALT/SGPT) 22, Alkaline Phosphatase 93, Total Protein 8.0, Albumin 1.8L, Globulin 6.2, Albumin/Globulin Ratio 0.3L Height (Feet): 5 Height (Inches): 8.00 Weight (Pounds): 214 General Appearance: no apparent distress Cardiovascular: normal rate Respiratory/Chest: lungs clear Abdomen: soft Objective no other change ROSE MARY REID October 07, 2017 13:54
--- NOTE | 2017-10-07 15:43 | Internal Med Progress Note ---
Subjective Date of Service: October 07, 2017 Physician Name Staci Chacon Attending Physician Staci Chacon Past Medical History no change Past Surgical History no change Current Medications Medications (Trade) Dose Ordered Sig/Keira Route PRN Reason Start Time Stop Time Status Last Admin Dose Admin Acetaminophen (Tylenol) 650 mg Q6H PRN NG Mild Pain/Temp > 100.5 10/02/17 14:58 10/22/17 14:57 Amlodipine Besylate (Norvasc) 5 mg BID ORAL 10/02/17 18:00 11/01/17 17:59 10/07/17 08:43 Chlorhexidine Gluconate (Michelle-Hex 2%) 1 applic DAILY@1999 TOPIC 10/02/17 20:00 10/27/17 19:59 10/06/17 21:36 Clonidine HCl (Catapres Tab) 0.1 mg Q6H GT 10/02/17 18:30 11/01/17 18:29 10/07/17 12:39 Dextrose (Dextrose 50%) 25 ml STAT PRN IV Hypoglycemia 10/02/17 14:58 11/01/17 14:57 Dextrose (Dextrose 50%) 50 ml STAT PRN IV Hypoglycemia 10/02/17 14:58 11/01/17 14:57 Famotidine (Pepcid) 20 mg BID GT 10/02/17 18:00 11/01/17 17:59 10/07/17 08:41 Heparin Sodium (Porcine) (Heparin 5000 units/ml) 5,000 units EVERY 12 HOURS SUBQ 10/02/17 21:00 10/27/17 20:59 10/07/17 08:48 Hydralazine HCl (Apresoline) 20 mg Q6HR GT 10/05/17 18:00 11/02/17 17:59 10/07/17 12:40 Hydralazine HCl (Apresoline) 25 mg Q4H PRN ORAL bp over 160 syst 10/02/17 15:01 11/01/17 15:00 10/05/17 04:31 Insulin Aspart (NovoLOG) EVERY 6 HOURS SUBQ 10/02/17 18:00 10/19/17 16:29 10/06/17 17:52 Loperamide HCl (Imodium) 2 mg Q6H PRN NG Diarrhea 10/02/17 15:02 10/25/17 15:01 Lorazepam (Ativan 2mg/ml 1ml) 1 mg Q4H PRN IV For Anxiety 10/02/17 15:02 10/09/17 15:01 Morphine Sulfate (Morphine Sulfate) 4 mg Q4H PRN IVP PAIN 4-10 10/02/17 15:03 10/08/17 15:02 Potassium Chloride (K-Dur) 40 meq DAILY GT 10/04/17 12:45 11/03/17 12:44 10/07/17 08:42 Quetiapine Fumarate (SEROquel) 12.5 mg EVERY 6 HOURS PRN ORAL Agitation 10/06/17 13:45 11/05/17 13:44 Allergies: Coded Allergies: No Known Allergies (Verified , 01/02/09) ROS Limited/Unobtainable: Yes Subjective remains intubated, off pressor Objective Last Vital Signs Date Time Temp Pulse Resp B/P (MAP) Pulse Ox O2 Delivery O2 Flow Rate FiO2 10/07/17 13:52 79 26 100 Nasal Cannula 2.0 10/07/17 13:43 28 10/07/17 12:40 147/80 10/07/17 12:00 98.6 98.6 General Appearance: WD/WN Neck: non-tender, supple Cardiovascular: normal rate, systolic murmur Respiratory/Chest: lungs clear, no respiratory distress, no accessory muscle use Abdomen: normal bowel sounds, non tender, soft, no mass Extremities: non-tender Edema: trace edema Neurologic: disoriented, aphasia Skin: warm/dry Laboratory Tests Test 10/07/17 05:00 White Blood Count 8.9 K/UL (4.8-10.8) Red Blood Count 3.73 M/UL (4.70-6.10) L Hemoglobin 9.9 G/DL (14.2-18.0) L Hematocrit 31.4 % (42.0-52.0) L Mean Corpuscular Volume 84 FL (80-99) Mean Corpuscular Hemoglobin 26.6 PG (27.0-31.0) L Mean Corpuscular Hemoglobin Concent 31.6 G/DL (32.0-36.0) L Red Cell Distribution Width 17.1 % (11.6-14.8) H Platelet Count 207 K/UL (150-450) Mean Platelet Volume 6.2 FL (6.5-10.1) L Neutrophils (%) (Auto) 58.6 % (45.0-75.0) Lymphocytes (%) (Auto) 26.3 % (20.0-45.0) Monocytes (%) (Auto) 8.6 % (1.0-10.0) Eosinophils (%) (Auto) 6.0 % (0.0-3.0) H Basophils (%) (Auto) 0.6 % (0.0-2.0) Sodium Level 126 MMOL/L (136-145) L Potassium Level 3.8 MMOL/L (3.5-5.1) Chloride Level 92 MMOL/L (98-107) L Carbon Dioxide Level 27 MMOL/L (21-32) Anion Gap 7 mmol/L (5-15) Blood Urea Nitrogen 23 mg/dL (7-18) H Creatinine 1.7 MG/DL (0.55-1.30) H Estimat Glomerular Filtration Rate mL/min (>60) Glucose Level 353 MG/DL (74-106) H Calcium Level 8.8 MG/DL (8.5-10.1) Total Bilirubin 0.3 MG/DL (0.2-1.0) Aspartate Amino Transf (AST/SGOT) 21 U/L (15-37) Alanine Aminotransferase (ALT/SGPT) 22 U/L (12-78) Alkaline Phosphatase 93 U/L (46-116) Total Protein 8.0 G/DL (6.4-8.2) Albumin 1.8 G/DL (3.4-5.0) L Globulin 6.2 g/dL Albumin/Globulin Ratio 0.3 (1.0-2.7) L Intake and Output 10/06/17 10/07/17 19:00 07:00 Intake Total 1040 ml 990 ml Output Total 700 ml 2000 ml Balance 340 ml -1010 ml Free Water 100 ml IV Total 550 ml 650 ml Tube Feeding 390 ml 210 ml Other 100 ml 30 ml Output Urine Total 700 ml 1500 ml Stool Total 500 ml Assessment/Plan Status: stable, progressing Assessment/Plan MPRESSION: 1. Acute respiratory failure, s/p extubation per family, on BIPAP DNR/DNI 2. MDR Pneumonia likely aspiration pneumonia versus healthcare associated pneumonia. 3. Severe dehydration. 4. Hypernatremia. 5. Hyperkalemia. 6. Acute on chronic renal failure stage 3. 7. Uremia due to prerenal. 8. Transaminitis. 9. Elevated lipase. 10. Severe protein-calorie malnutrition. 11. History of chronic CVA with right hemiparesis. 13. History of organic brain disease. 14. History of advanced dementia. 15. Status post gastrostomy tube placement. 16. History of neurogenic bladder/chronic indwelling Matson catheter. 17. Hyperlipidemia. 18. Coronary artery disease. 19. poor venous access PLAN: Dc planning back to SNF underway k replete prn BP meds adjusted DNI/DNR diuresis prn lyte replete Pulmonary nebulizer. PRBC tx as needed DVT and GI prophylaxis. monitor off abx Matson catheter. DC PICC before Discharge Aspiration precaution. electrolytes replete as indicated. enteral feeding as tolerated off bipap family meeting took place 10/01----> DNR/DNI over 35 min spent d/w [facility] consultant Staci Chacon MD [phone] STACI CHACON October 07, 2017 15:43
[2017-10-07 16:00] VITALS: BP 139/78
--- NOTE | 2017-10-07 16:01 | GI Progress Note ---
Assessment/Plan Problems: (1) Anemia ICD Codes: D64.9 - Anemia, unspecified SNOMED: 696802104 (2) Feeding by G-tube ICD Codes: Z93.1 - Gastrostomy status SNOMED: 346700975, 887112554 (3) Acute encephalopathy ICD Codes: G93.40 - Encephalopathy, unspecified SNOMED: 2607129 (4) Transaminitis ICD Codes: R74.0 - Nonspecific elevation of levels of transaminase and lactic acid dehydrogenase [LDH] SNOMED: 976254294, 883222800 (5) Diarrhea ICD Codes: R19.7 - Diarrhea, unspecified SNOMED: 11685985 Status: progressing Status Narrative Discussed with Dr. Taveras. Assessment/Plan Assessment - Anemia - abnormal LFT - Resp failure - Renal failure - Sepsis - CVA / (R) taylor - dysphagia / GT - diarrhea - hep panel negative Recommendations - H2B BID - dc reglan given renal insufficiency - Imodium prn - TF - check OB - transufse PRN - abx - s/p EGD/colon 07/2017 at [facility] (HH,polyps, diverticulosis) - fu labs The patient was seen and examined at bedside and all new and available data was reviewed in the patients chart. I agree with the above findings, impression and plan. (Patient seen earlier today. Signature stamp does not reflect patient encounter time.). - Villa Taveras MD Subjective Subjective limited Objective Last 24 Hour Vital Signs Date Time Temp Pulse Resp B/P (MAP) Pulse Ox O2 Delivery O2 Flow Rate FiO2 10/07/17 13:52 79 26 100 Nasal Cannula 2.0 10/07/17 13:43 68 28 100 Nasal Cannula 2.0 28 10/07/17 12:40 147/80 10/07/17 12:39 147/80 10/07/17 12:00 98.6 72 19 141/79 100 Room Air 98.6 10/07/17 12:00 76 10/07/17 09:54 Nasal Cannula 2.0 28 10/07/17 09:53 98 Nasal Cannula 2.0 28 10/07/17 08:43 79 147/80 10/07/17 08:00 97.5 93 17 161/109 95 Room Air 97.5 10/07/17 08:00 80 10/07/17 07:58 79 23 100 Nasal Cannula 2.0 10/07/17 07:50 88 28 92 Nasal Cannula 2.0 10/07/17 06:19 147/80 10/07/17 06:19 147/80 10/07/17 04:41 81 10/07/17 04:00 98.0 79 20 149/84 95 Room Air 98.0 10/07/17 01:28 72 20 100 Nasal Cannula 2.0 10/07/17 01:23 28 10/07/17 01:21 75 20 100 Nasal Cannula 2.0 10/07/17 01:17 140/82 10/07/17 01:17 140/82 10/07/17 00:06 80 10/07/17 00:00 98.1 75 20 140/82 100 Room Air 98.1 10/06/17 20:48 81 20 100 Nasal Cannula 2.0 10/06/17 20:00 98.4 75 20 102/67 98 Room Air 98.4 10/06/17 19:27 72 10/06/17 18:41 78 20 100 Nasal Cannula 2.0 10/06/17 18:30 28 10/06/17 18:30 73 20 100 Nasal Cannula 2.0 10/06/17 17:50 139/87 10/06/17 17:49 83 139/87 10/06/17 17:48 139/87 10/06/17 16:00 98.2 83 19 139/87 97 Room Air 98.2 10/06/17 16:00 87 Intake and Output 10/06/17 10/07/17 19:00 07:00 Intake Total 1040 ml 990 ml Output Total 700 ml 2000 ml Balance 340 ml -1010 ml Free Water 100 ml IV Total 550 ml 650 ml Tube Feeding 390 ml 210 ml Other 100 ml 30 ml Output Urine Total 700 ml 1500 ml Stool Total 500 ml Laboratory Tests Test 10/07/17 05:00 White Blood Count 8.9 K/UL (4.8-10.8) Red Blood Count 3.73 M/UL (4.70-6.10) L Hemoglobin 9.9 G/DL (14.2-18.0) L Hematocrit 31.4 % (42.0-52.0) L Mean Corpuscular Volume 84 FL (80-99) Mean Corpuscular Hemoglobin 26.6 PG (27.0-31.0) L Mean Corpuscular Hemoglobin Concent 31.6 G/DL (32.0-36.0) L Red Cell Distribution Width 17.1 % (11.6-14.8) H Platelet Count 207 K/UL (150-450) Mean Platelet Volume 6.2 FL (6.5-10.1) L Neutrophils (%) (Auto) 58.6 % (45.0-75.0) Lymphocytes (%) (Auto) 26.3 % (20.0-45.0) Monocytes (%) (Auto) 8.6 % (1.0-10.0) Eosinophils (%) (Auto) 6.0 % (0.0-3.0) H Basophils (%) (Auto) 0.6 % (0.0-2.0) Sodium Level 126 MMOL/L (136-145) L Potassium Level 3.8 MMOL/L (3.5-5.1) Chloride Level 92 MMOL/L (98-107) L Carbon Dioxide Level 27 MMOL/L (21-32) Anion Gap 7 mmol/L (5-15) Blood Urea Nitrogen 23 mg/dL (7-18) H Creatinine 1.7 MG/DL (0.55-1.30) H Estimat Glomerular Filtration Rate mL/min (>60) Glucose Level 353 MG/DL (74-106) H Calcium Level 8.8 MG/DL (8.5-10.1) Total Bilirubin 0.3 MG/DL (0.2-1.0) Aspartate Amino Transf (AST/SGOT) 21 U/L (15-37) Alanine Aminotransferase (ALT/SGPT) 22 U/L (12-78) Alkaline Phosphatase 93 U/L (46-116) Total Protein 8.0 G/DL (6.4-8.2) Albumin 1.8 G/DL (3.4-5.0) L Globulin 6.2 g/dL Albumin/Globulin Ratio 0.3 (1.0-2.7) L Height (Feet): 5 Height (Inches): 8.00 Weight (Pounds): 214 General Appearance: alert Cardiovascular: normal rate, regular rhythm Respiratory/Chest: normal breath sounds, no respiratory distress Abdominal Exam: site - c/d/i Ramandeep Francois NP October 07, 2017 16:01
[2017-10-07] MEDS: Dyna-Hex 2% Top Sol 2oz TOPIC SCH (19:40)
[2017-10-07 20:00] VITALS: BP 134/78
--- NOTE | 2017-10-07 23:29 | General Progress Note ---
Assessment/Plan Assessment/Plan encephalopathy prn seroquel prn haldol Subjective Date patient seen: October 07, 2017 Neurologic/Psychiatric: Reports: anxiety Allergies: Coded Allergies: No Known Allergies (Verified , 01/02/09) Subjective the pt was nonverbal and confused. gets agitated Objective Last 24 Hour Vital Signs Date Time Temp Pulse Resp B/P (MAP) Pulse Ox O2 Delivery O2 Flow Rate FiO2 10/07/17 21:48 Nasal Cannula 2.0 28 10/07/17 21:48 100 Nasal Cannula 2.0 28 10/07/17 20:00 98.5 67 22 134/78 100 Nasal Cannula 2.0 98.5 10/07/17 18:42 147/80 10/07/17 18:42 147/80 10/07/17 18:42 79 147/80 10/07/17 16:00 73 10/07/17 16:00 98.5 73 20 139/78 99 Room Air 98.5 10/07/17 13:52 79 26 100 Nasal Cannula 2.0 10/07/17 13:43 68 28 100 Nasal Cannula 2.0 10/07/17 12:40 147/80 10/07/17 12:39 147/80 10/07/17 12:00 98.6 72 19 141/79 100 Room Air 98.6 10/07/17 12:00 76 10/07/17 09:54 Nasal Cannula 2.0 10/07/17 09:53 98 Nasal Cannula 2.0 10/07/17 08:43 79 147/80 10/07/17 08:00 97.5 93 17 161/109 95 Room Air 97.5 10/07/17 08:00 80 10/07/17 07:58 79 23 100 Nasal Cannula 2.0 10/07/17 07:50 88 28 92 Nasal Cannula 2.0 10/07/17 06:19 147/80 10/07/17 06:19 147/80 10/07/17 04:41 81 10/07/17 04:00 98.0 79 20 149/84 95 Room Air 98.0 10/07/17 01:28 72 20 100 Nasal Cannula 2.0 10/07/17 01:23 28 10/07/17 01:21 75 20 100 Nasal Cannula 2.0 10/07/17 01:17 140/82 10/07/17 01:17 140/82 10/07/17 00:06 80 10/07/17 00:00 98.1 75 20 140/82 100 Room Air 98.1 Intake and Output 10/06/17 10/07/17 19:00 07:00 Intake Total 1040 ml 990 ml Output Total 700 ml 2000 ml Balance 340 ml -1010 ml Free Water 100 ml IV Total 550 ml 650 ml Tube Feeding 390 ml 210 ml Other 100 ml 30 ml Output Urine Total 700 ml 1500 ml Stool Total 500 ml Laboratory Tests 10/07/17 05:00: White Blood Count 8.9, Red Blood Count 3.73L, Hemoglobin 9.9L, Hematocrit 31.4L , Mean Corpuscular Volume 84, Mean Corpuscular Hemoglobin 26.6L, Mean Corpuscular Hemoglobin Concent 31.6L, Red Cell Distribution Width 17.1H, Platelet Count 207, Mean Platelet Volume 6.2L, Neutrophils (%) (Auto) 58.6, Lymphocytes (%) (Auto) 26.3, Monocytes (%) (Auto) 8.6, Eosinophils (%) (Auto) 6.0H, Basophils (%) (Auto) 0.6, Sodium Level 126L, Potassium Level 3.8, Chloride Level 92L, Carbon Dioxide Level 27, Anion Gap 7, Blood Urea Nitrogen 23H, Creatinine 1.7H, Estimat Glomerular Filtration Rate , Glucose Level 353H, Calcium Level 8.8, Total Bilirubin 0.3, Aspartate Amino Transf (AST/SGOT) 21, Alanine Aminotransferase (ALT/SGPT) 22, Alkaline Phosphatase 93, Total Protein 8.0, Albumin 1.8L, Globulin 6.2, Albumin/Globulin Ratio 0.3L Height (Feet): 5 Height (Inches): 8.00 Weight (Pounds): 214 General Appearance: WD/WN, no apparent distress, lethargic, confused Juventino Ochoa M.D. October 07, 2017 23:29
[2017-10-08] VITALS: BP 168/88
[2017-10-08] MEDS: HydrALAZINE 10mg Tab GT SCH ×2 (00:10→06:00)
[2017-10-08 04:00] VITALS: BP 157/86
[2017-10-08 04:50] LABS: BASOPHILS % (AUTO) 0.5 % (0.0-2.0); EOSINOPHILS % (AUTO) 4.6 % (0.0-3.0); HEMATOCRIT 32.8 % (42.0-52.0); HEMOGLOBIN 10.2 G/DL (14.2-18.0); LYMPHOCYTES % (AUTO) 23.1 % (20.0-45.0); MEAN CORPUSCULAR VOLUME 84 FL (80-99); MONOCYTES % (AUTO) 8.8 % (1.0-10.0); PLATELET COUNT 215 K/UL (150-450); RED BLOOD COUNT 3.93 M/UL (4.70-6.10); RED CELL DISTRIBUTION WIDTH 16.9 % (11.6-14.8); WHITE BLOOD COUNT 9.8 K/UL (4.8-10.8)
[2017-10-08 04:58] LABS: ANION GAP 4 mmol/L (5-15); BLOOD UREA NITROGEN 26 mg/dL (7-18); CALCIUM 9.4 MG/DL (8.5-10.1); CARBON DIOXIDE 29 MMOL/L (21-32); CHLORIDE 100 MMOL/L (98-107); CREATININE 1.7 MG/DL (0.55-1.30); POTASSIUM 4.4 MMOL/L (3.5-5.1); SODIUM 133 MMOL/L (136-145)
[2017-10-08] MEDS: NovoLOG Insulin Flexpen SUBQ SCH (06:00)
[2017-10-08 08:00] VITALS: BP 132/71
--- NOTE | 2017-10-08 09:04 | Pulmonology Progress Note ---
Assessment/Plan Problems: (1) Pneumonia (2) Aspiration pneumonia (3) Respiratory failure (4) Feeding by G-tube (5) Acute encephalopathy (6) s/p multiple lacunar strokes, old (7) Encephalopathy due to infection (8) Bacterial infection due to Staphylococcus (9) Diabetes mellitus (10) Anemia Assessment/Plan -Optimize pulmonary hygiene/mobilize as tolerated -Titrate down FiO2 to keep SaO2 > 90% -BiPAP PRN & qHS -Observe off Abx per ID -Monitor volumes and renal function, F/U renal recs -F/U UPEP, heme eval -TF's as tolerated -DVT Px: Hep SQ -DNAR/DNI -Dispo planning to SNF D/W RT, RN and family @ bedside Subjective Allergies: Coded Allergies: No Known Allergies (Verified , 01/02/09) Subjective BURKE AFVSS, stable O2 needs, off BiPAP Tommy TF's No change in MS, no cough, no SOB, no F/C Objective Last 24 Hour Vital Signs Date Time Temp Pulse Resp B/P (MAP) Pulse Ox O2 Delivery O2 Flow Rate FiO2 10/08/17 08:35 Nasal Cannula 2.0 28 10/08/17 07:00 100 Nasal Cannula 2.0 28 10/08/17 06:00 130/75 10/08/17 06:00 130/75 10/08/17 05:11 72 10/08/17 04:00 98.3 75 22 157/86 100 Nasal Cannula 2.0 98.3 10/08/17 00:10 168/88 10/08/17 00:10 168/88 10/08/17 00:00 98.1 77 24 168/88 100 Nasal Cannula 2.0 98.1 10/07/17 23:59 78 10/07/17 21:48 Nasal Cannula 2.0 28 10/07/17 21:48 100 Nasal Cannula 2.0 28 10/07/17 20:00 98.5 67 22 134/78 100 Nasal Cannula 2.0 98.5 10/07/17 19:07 74 10/07/17 18:42 147/80 10/07/17 18:42 147/80 10/07/17 18:42 79 147/80 10/07/17 16:00 73 10/07/17 16:00 98.5 73 20 139/78 99 Room Air 98.5 10/07/17 13:52 79 26 100 Nasal Cannula 2.0 10/07/17 13:43 68 28 100 Nasal Cannula 2.0 28 10/07/17 12:40 147/80 10/07/17 12:39 147/80 10/07/17 12:00 98.6 72 19 141/79 100 Room Air 98.6 10/07/17 12:00 76 10/07/17 09:54 Nasal Cannula 2.0 28 10/07/17 09:53 98 Nasal Cannula 2.0 28 Intake and Output 10/07/17 10/08/17 19:00 07:00 Intake Total 190 ml 600 ml Output Total 550 ml 2000 ml Balance -360 ml -1400 ml IV Total 130 ml 90 ml Tube Feeding 60 ml 360 ml Other 150 ml Output Urine Total 550 ml 1800 ml Stool Total 200 ml General Appearance: no acute distress, cachetic HEENT: normocephalic, atraumatic, anicteric, mucous membranes moist Respiratory/Chest: chest wall non-tender, lungs clear, normal breath sounds, no respiratory distress Cardiovascular: normal peripheral pulses, normal rate, regular rhythm Abdomen: normal bowel sounds, soft, non tender, no organomegaly, other - GT Extremities: no cyanosis, no clubbing, no edema Skin: no rash Laboratory Tests 10/08/17 04:00: White Blood Count 9.8, Red Blood Count 3.93L, Hemoglobin 10.2L, Hematocrit 32.8L , Mean Corpuscular Volume 84, Mean Corpuscular Hemoglobin 25.8L, Mean Corpuscular Hemoglobin Concent 30.9L, Red Cell Distribution Width 16.9H, Platelet Count 215, Mean Platelet Volume 6.7, Neutrophils (%) (Auto) 63.0, Lymphocytes (%) (Auto) 23.1, Monocytes (%) (Auto) 8.8, Eosinophils (%) (Auto) 4.6H, Basophils (%) (Auto) 0.5, Sodium Level 133L, Potassium Level 4.4, Chloride Level 100, Carbon Dioxide Level 29, Anion Gap 4L, Blood Urea Nitrogen 26H, Creatinine 1.7H, Estimat Glomerular Filtration Rate , Glucose Level 128#H, Calcium Level 9.4 Current Medications Medications (Trade) Dose Ordered Sig/Keira Route PRN Reason Start Time Stop Time Status Last Admin Dose Admin Acetaminophen (Tylenol) 650 mg Q6H PRN NG Mild Pain/Temp > 100.5 10/02/17 14:58 10/22/17 14:57 Amlodipine Besylate (Norvasc) 5 mg BID ORAL 10/02/17 18:00 11/01/17 17:59 10/07/17 18:42 Chlorhexidine Gluconate (Michelle-Hex 2%) 1 applic DAILY@2000 TOPIC 10/02/17 20:00 10/27/17 19:59 10/07/17 19:40 Clonidine HCl (Catapres Tab) 0.1 mg Q6H GT 10/02/17 18:30 11/01/17 18:29 10/08/17 06:00 Dextrose (Dextrose 50%) 25 ml STAT PRN IV Hypoglycemia 10/02/17 14:58 11/01/17 14:57 Dextrose (Dextrose 50%) 50 ml STAT PRN IV Hypoglycemia 10/02/17 14:58 11/01/17 14:57 Famotidine (Pepcid) 20 mg BID GT 10/02/17 18:00 11/01/17 17:59 10/07/17 18:42 Heparin Sodium (Porcine) (Heparin 5000 units/ml) 5,000 units EVERY 12 HOURS SUBQ 10/02/17 21:00 10/27/17 20:59 10/07/17 20:30 Hydralazine HCl (Apresoline) 20 mg Q6HR GT 10/05/17 18:00 11/02/17 17:59 10/08/17 06:00 Hydralazine HCl (Apresoline) 25 mg Q4H PRN ORAL bp over 160 syst 10/02/17 15:01 11/01/17 15:00 10/05/17 04:31 Insulin Aspart (NovoLOG) EVERY 6 HOURS SUBQ 10/02/17 18:00 10/19/17 16:29 10/08/17 06:00 Loperamide HCl (Imodium) 2 mg Q6H PRN NG Diarrhea 10/02/17 15:02 10/25/17 15:01 Lorazepam (Ativan 2mg/ml 1ml) 1 mg Q4H PRN IV For Anxiety 10/02/17 15:02 10/09/17 15:01 Morphine Sulfate (Morphine Sulfate) 4 mg Q4H PRN IVP PAIN 4-10 10/02/17 15:03 10/08/17 15:02 Potassium Chloride (K-Dur) 40 meq DAILY GT 10/04/17 12:45 11/03/17 12:44 10/07/17 08:42 Quetiapine Fumarate (SEROquel) 12.5 mg EVERY 6 HOURS PRN ORAL Agitation 10/06/17 13:45 11/05/17 13:44 CHRISTINA KIDD M.D. October 08, 2017 09:04
[2017-10-08] MEDS: Heparin 5000 units/ml inj SUBQ SCH (09:16)
[2017-10-08] MEDS ORDERED: Morphine Sulfate 4mg/ml Inj IVP PRN (10:00)
--- NOTE | 2017-10-08 11:17 | GI Progress Note ---
Assessment/Plan Problems: (1) Anemia ICD Codes: D64.9 - Anemia, unspecified SNOMED: 853714499 (2) Feeding by G-tube ICD Codes: Z93.1 - Gastrostomy status SNOMED: 814080824, 745833909 (3) Acute encephalopathy ICD Codes: G93.40 - Encephalopathy, unspecified SNOMED: 3071501 (4) Transaminitis ICD Codes: R74.0 - Nonspecific elevation of levels of transaminase and lactic acid dehydrogenase [LDH] SNOMED: 425730356, 098835380 (5) Diarrhea ICD Codes: R19.7 - Diarrhea, unspecified SNOMED: 32435777 Status: progressing, unchanged Status Narrative Discussed with Dr. Taveras. Assessment/Plan Assessment - Anemia - abnormal LFT - Resp failure - Renal failure - Sepsis - CVA / (R) taylor - dysphagia / GT - diarrhea - hep panel negative Recommendations - H2B BID - dc reglan given renal insufficiency - Imodium prn - TF - check OB - transufse PRN - abx - s/p EGD/colon 07/2017 at [facility] (HH,polyps, diverticulosis) - fu labs The patient was seen and examined at bedside and all new and available data was reviewed in the patients chart. I agree with the above findings, impression and plan. (Patient seen earlier today. Signature stamp does not reflect patient encounter time.). - Villa Taveras MD Subjective Subjective limited Objective Last 24 Hour Vital Signs Date Time Temp Pulse Resp B/P (MAP) Pulse Ox O2 Delivery O2 Flow Rate FiO2 10/08/17 09:13 72 130/75 10/08/17 08:35 Nasal Cannula 2.0 28 10/08/17 08:00 72 10/08/17 07:00 100 Nasal Cannula 2.0 28 10/08/17 06:00 130/75 10/08/17 06:00 130/75 10/08/17 05:11 72 10/08/17 04:00 98.3 75 22 157/86 100 Nasal Cannula 2.0 98.3 10/08/17 00:10 168/88 10/08/17 00:10 168/88 10/08/17 00:00 98.1 77 24 168/88 100 Nasal Cannula 2.0 98.1 10/07/17 23:59 78 10/07/17 21:48 Nasal Cannula 2.0 28 10/07/17 21:48 100 Nasal Cannula 2.0 28 10/07/17 20:00 98.5 67 22 134/78 100 Nasal Cannula 2.0 98.5 10/07/17 19:07 74 10/07/17 18:42 147/80 10/07/17 18:42 147/80 10/07/17 18:42 79 147/80 10/07/17 16:00 73 10/07/17 16:00 98.5 73 20 139/78 99 Room Air 98.5 10/07/17 13:52 79 26 100 Nasal Cannula 2.0 10/07/17 13:43 68 28 100 Nasal Cannula 2.0 28 10/07/17 12:40 147/80 10/07/17 12:39 147/80 10/07/17 12:00 98.6 72 19 141/79 100 Room Air 98.6 10/07/17 12:00 76 Intake and Output 10/07/17 10/08/17 19:00 07:00 Intake Total 190 ml 600 ml Output Total 550 ml 2000 ml Balance -360 ml -1400 ml IV Total 130 ml 90 ml Tube Feeding 60 ml 360 ml Other 150 ml Output Urine Total 550 ml 1800 ml Stool Total 200 ml Laboratory Tests Test 10/08/17 04:00 White Blood Count 9.8 K/UL (4.8-10.8) Red Blood Count 3.93 M/UL (4.70-6.10) L Hemoglobin 10.2 G/DL (14.2-18.0) L Hematocrit 32.8 % (42.0-52.0) L Mean Corpuscular Volume 84 FL (80-99) Mean Corpuscular Hemoglobin 25.8 PG (27.0-31.0) L Mean Corpuscular Hemoglobin Concent 30.9 G/DL (32.0-36.0) L Red Cell Distribution Width 16.9 % (11.6-14.8) H Platelet Count 215 K/UL (150-450) Mean Platelet Volume 6.7 FL (6.5-10.1) Neutrophils (%) (Auto) 63.0 % (45.0-75.0) Lymphocytes (%) (Auto) 23.1 % (20.0-45.0) Monocytes (%) (Auto) 8.8 % (1.0-10.0) Eosinophils (%) (Auto) 4.6 % (0.0-3.0) H Basophils (%) (Auto) 0.5 % (0.0-2.0) Sodium Level 133 MMOL/L (136-145) L Potassium Level 4.4 MMOL/L (3.5-5.1) Chloride Level 100 MMOL/L (98-107) Carbon Dioxide Level 29 MMOL/L (21-32) Anion Gap 4 mmol/L (5-15) L Blood Urea Nitrogen 26 mg/dL (7-18) H Creatinine 1.7 MG/DL (0.55-1.30) H Estimat Glomerular Filtration Rate mL/min (>60) Glucose Level 128 MG/DL (74-106) #H Calcium Level 9.4 MG/DL (8.5-10.1) Height (Feet): 5 Height (Inches): 8.00 Weight (Pounds): 210 General Appearance: alert Cardiovascular: regular rhythm Abdominal Exam: GT site - c/d/i Ramandeep Francois NP October 08, 2017 11:17
[2017-10-08] MEDS ORDERED: NovoLOG Insulin Flexpen SUBQ SCH (12:00)
[2017-10-08 12:29] VITALS: BP 107/65
[2017-10-08] MEDS ORDERED: HydrALAZINE 10mg Tab GT SCH ×2 (12:45→18:00)
--- NOTE | 2017-10-08 12:47 | General Progress Note ---
Assessment/Plan Status: stable Assessment/Plan encephalopathy prn seroquel prn haldol Subjective Date patient seen: October 08, 2017 Neurologic/Psychiatric: Reports: anxiety, depressed, emotional problems Allergies: Coded Allergies: No Known Allergies (Verified , 01/02/09) Subjective the pt was nonverbal and confused. gets agitated Objective Last 24 Hour Vital Signs Date Time Temp Pulse Resp B/P (MAP) Pulse Ox O2 Delivery O2 Flow Rate FiO2 10/08/17 12:29 97.7 91 16 107/65 99 Nasal Cannula 2.0 97.7 10/08/17 09:13 72 130/75 10/08/17 08:35 Nasal Cannula 2.0 28 10/08/17 08:00 72 10/08/17 08:00 98.1 71 23 132/71 99 Nasal Cannula 2.0 98.1 10/08/17 07:00 100 Nasal Cannula 2.0 28 10/08/17 06:00 130/75 10/08/17 06:00 130/75 10/08/17 05:11 72 10/08/17 04:00 98.3 75 22 157/86 100 Nasal Cannula 2.0 98.3 10/08/17 00:10 168/88 10/08/17 00:10 168/88 10/08/17 00:00 98.1 77 24 168/88 100 Nasal Cannula 2.0 98.1 10/07/17 23:59 78 10/07/17 21:48 Nasal Cannula 2.0 28 10/07/17 21:48 100 Nasal Cannula 2.0 28 10/07/17 20:00 98.5 67 22 134/78 100 Nasal Cannula 2.0 98.5 10/07/17 19:07 74 10/07/17 18:42 147/80 10/07/17 18:42 147/80 10/07/17 18:42 79 147/80 10/07/17 16:00 73 10/07/17 16:00 98.5 73 20 139/78 99 Room Air 98.5 10/07/17 13:52 79 26 100 Nasal Cannula 2.0 10/07/17 13:43 68 28 100 Nasal Cannula 2.0 28 Intake and Output 10/07/17 10/08/17 19:00 07:00 Intake Total 190 ml 600 ml Output Total 550 ml 2000 ml Balance -360 ml -1400 ml IV Total 130 ml 90 ml Tube Feeding 60 ml 360 ml Other 150 ml Output Urine Total 550 ml 1800 ml Stool Total 200 ml Laboratory Tests 10/08/17 04:00: White Blood Count 9.8, Red Blood Count 3.93L, Hemoglobin 10.2L, Hematocrit 32.8L , Mean Corpuscular Volume 84, Mean Corpuscular Hemoglobin 25.8L, Mean Corpuscular Hemoglobin Concent 30.9L, Red Cell Distribution Width 16.9H, Platelet Count 215, Mean Platelet Volume 6.7, Neutrophils (%) (Auto) 63.0, Lymphocytes (%) (Auto) 23.1, Monocytes (%) (Auto) 8.8, Eosinophils (%) (Auto) 4.6H, Basophils (%) (Auto) 0.5, Sodium Level 133L, Potassium Level 4.4, Chloride Level 100, Carbon Dioxide Level 29, Anion Gap 4L, Blood Urea Nitrogen 26H, Creatinine 1.7H, Estimat Glomerular Filtration Rate , Glucose Level 128#H, Calcium Level 9.4 Height (Feet): 5 Height (Inches): 8.00 Weight (Pounds): 210 Juventino Ochoa M.D. October 08, 2017 12:47
[2017-10-08] MEDS ORDERED: Acetaminophen 650mg/20.3ml NG PRN (13:00)
[2017-10-08] MEDS ORDERED: HydrALAZINE 25mg tab ORAL PRN (13:00)
[2017-10-08] MEDS ORDERED: LORazepam Inj 2mg/ml 1ml IV PRN (13:00)
--- NOTE | 2017-10-08 13:39 | Infectious Diseases Prog Note ---
Assessment/Plan Assessment/Plan A: Sepsis/septic shock resolved Bacteremia with Staph capitis/ contamination Pneumonia with MDR Acinetobacter & Proteus UTI with Proteus treated Respiratory failure resolved ATN DM Anemia Elevated transaminase DNR, DNI P: observe off antibiotic Remove PICC line before discharge Subjective ROS Limited/Unobtainable: Yes Allergies: Coded Allergies: No Known Allergies (Verified , 01/02/09) Objective Vital Signs Last 24 Hour Vital Signs Date Time Temp Pulse Resp B/P (MAP) Pulse Ox O2 Delivery O2 Flow Rate FiO2 10/08/17 12:29 97.7 91 16 107/65 99 Nasal Cannula 2.0 97.7 10/08/17 09:13 72 130/75 10/08/17 08:35 Nasal Cannula 2.0 28 10/08/17 08:00 72 10/08/17 08:00 98.1 71 23 132/71 99 Nasal Cannula 2.0 98.1 10/08/17 07:00 100 Nasal Cannula 2.0 28 10/08/17 06:00 130/75 10/08/17 06:00 130/75 10/08/17 05:11 72 10/08/17 04:00 98.3 75 22 157/86 100 Nasal Cannula 2.0 98.3 10/08/17 00:10 168/88 10/08/17 00:10 168/88 10/08/17 00:00 98.1 77 24 168/88 100 Nasal Cannula 2.0 98.1 10/07/17 23:59 78 10/07/17 21:48 Nasal Cannula 2.0 28 10/07/17 21:48 100 Nasal Cannula 2.0 28 10/07/17 20:00 98.5 67 22 134/78 100 Nasal Cannula 2.0 98.5 10/07/17 19:07 74 10/07/17 18:42 147/80 10/07/17 18:42 147/80 10/07/17 18:42 79 147/80 10/07/17 16:00 73 10/07/17 16:00 98.5 73 20 139/78 99 Room Air 98.5 10/07/17 13:52 79 26 100 Nasal Cannula 2.0 10/07/17 13:43 68 28 100 Nasal Cannula 2.0 28 Height (Feet): 5 Height (Inches): 8.00 Weight (Pounds): 210 General Appearance: no acute distress HEENT: mucous membranes moist Respiratory/Chest: rhonchi - bilaterally, other - O2 by nasal cannula Cardiovascular: normal rate, other - left arm PICC line Abdomen: soft, non tender, other - GT feeding Neurologic/Psychiatric: disoriented Laboratory Tests Test 10/08/17 04:00 White Blood Count 9.8 K/UL (4.8-10.8) Red Blood Count 3.93 M/UL (4.70-6.10) L Hemoglobin 10.2 G/DL (14.2-18.0) L Hematocrit 32.8 % (42.0-52.0) L Mean Corpuscular Volume 84 FL (80-99) Mean Corpuscular Hemoglobin 25.8 PG (27.0-31.0) L Mean Corpuscular Hemoglobin Concent 30.9 G/DL (32.0-36.0) L Red Cell Distribution Width 16.9 % (11.6-14.8) H Platelet Count 215 K/UL (150-450) Mean Platelet Volume 6.7 FL (6.5-10.1) Neutrophils (%) (Auto) 63.0 % (45.0-75.0) Lymphocytes (%) (Auto) 23.1 % (20.0-45.0) Monocytes (%) (Auto) 8.8 % (1.0-10.0) Eosinophils (%) (Auto) 4.6 % (0.0-3.0) H Basophils (%) (Auto) 0.5 % (0.0-2.0) Sodium Level 133 MMOL/L (136-145) L Potassium Level 4.4 MMOL/L (3.5-5.1) Chloride Level 100 MMOL/L (98-107) Carbon Dioxide Level 29 MMOL/L (21-32) Anion Gap 4 mmol/L (5-15) L Blood Urea Nitrogen 26 mg/dL (7-18) H Creatinine 1.7 MG/DL (0.55-1.30) H Estimat Glomerular Filtration Rate mL/min (>60) Glucose Level 128 MG/DL (74-106) #H Calcium Level 9.4 MG/DL (8.5-10.1) Current Medications Medications (Trade) Dose Ordered Sig/Keira Route PRN Reason Start Time Stop Time Status Last Admin Dose Admin Acetaminophen (Tylenol) 650 mg Q6H PRN NG Mild Pain/Temp > 100.5 10/08/17 13:00 10/22/17 12:59 Amlodipine Besylate (Norvasc) 5 mg BID ORAL 10/08/17 18:00 11/01/17 17:59 Chlorhexidine Gluconate (Michelle-Hex 2%) 1 applic DAILY@2000 TOPIC 10/08/17 20:00 10/27/17 19:59 Clonidine HCl (Catapres Tab) 0.1 mg ONCE GT 10/08/17 12:45 10/08/17 13:45 Clonidine HCl (Catapres Tab) 0.1 mg Q6HR GT 10/08/17 18:00 11/07/17 17:59 Dextrose (Dextrose 50%) 25 ml STAT PRN IV Hypoglycemia 10/08/17 13:00 11/01/17 12:59 Dextrose (Dextrose 50%) 50 ml STAT PRN IV Hypoglycemia 10/08/17 13:00 11/01/17 12:59 Famotidine (Pepcid) 20 mg BID GT 10/08/17 18:00 11/01/17 17:59 Heparin Sodium (Porcine) (Heparin 5000 units/ml) 5,000 units EVERY 12 HOURS SUBQ 10/08/17 21:00 10/27/17 20:59 Hydralazine HCl (Apresoline) 20 mg ONCE GT 10/08/17 12:45 10/08/17 13:45 Hydralazine HCl (Apresoline) 20 mg Q6HR GT 10/08/17 18:00 11/02/17 17:59 Hydralazine HCl (Apresoline) 25 mg Q4H PRN ORAL bp over 160 syst 10/08/17 13:00 11/01/17 12:59 Insulin Aspart (NovoLOG) EVERY 6 HOURS SUBQ 10/08/17 12:00 10/19/17 16:29 Loperamide HCl (Imodium) 2 mg Q6H PRN NG Diarrhea 10/08/17 13:00 10/25/17 12:59 Lorazepam (Ativan 2mg/ml 1ml) 1 mg Q4H PRN IV For Anxiety 10/08/17 13:00 10/09/17 12:59 Potassium Chloride (K-Dur) 40 meq DAILY GT 10/09/17 09:00 11/03/17 12:44 Quetiapine Fumarate (SEROquel) 12.5 mg Q6H PRN ORAL Agitation 10/08/17 12:00 11/07/17 11:59 ANDRES SAVAGE October 08, 2017 13:39
[2017-10-08 16:00] VITALS: BP 108/63
--- NOTE | 2017-10-08 16:33 | Nephrology Progress Note ---
Assessment/Plan Problem List: (1) ATN (acute tubular necrosis) Assessment: cr down 1.7 (2) Septic shock (3) Respiratory failure (4) Diabetes mellitus Assessment low Na improved Acute Renal failure- Cr lower ? Underlying CKD Component of dehydration, Pre renal state and Hypernatremia Acute respiratory failure, Aspiartion Pneumonia, UTI Septic Shock H/O Multiple Strokes Anemia Elevated Troponin Hyperglycemia PEG Plan 3% Saline- given increase isordil- K supplement ajust BP meds- pulm support previous plans: transfused Pulm support avoid nephrotoxics Monitor renal parameters Hemodynamic support IV iron Nitro and asa GT feeding Subjective ROS Limited/Unobtainable: No Constitutional: Reports: malaise Objective Objective Last 24 Hour Vital Signs Date Time Temp Pulse Resp B/P (MAP) Pulse Ox O2 Delivery O2 Flow Rate FiO2 10/08/17 12:45 107/65 10/08/17 12:45 107/65 10/08/17 12:29 97.7 91 16 107/65 99 Nasal Cannula 2.0 97.7 10/08/17 09:13 72 130/75 10/08/17 08:35 Nasal Cannula 2.0 28 10/08/17 08:00 72 10/08/17 08:00 98.1 71 23 132/71 99 Nasal Cannula 2.0 98.1 10/08/17 07:00 100 Nasal Cannula 2.0 28 10/08/17 06:00 130/75 10/08/17 06:00 130/75 10/08/17 05:11 72 10/08/17 04:00 98.3 75 22 157/86 100 Nasal Cannula 2.0 98.3 10/08/17 00:10 168/88 10/08/17 00:10 168/88 10/08/17 00:00 98.1 77 24 168/88 100 Nasal Cannula 2.0 98.1 10/07/17 23:59 78 10/07/17 21:48 Nasal Cannula 2.0 28 10/07/17 21:48 100 Nasal Cannula 2.0 28 10/07/17 20:00 98.5 67 22 134/78 100 Nasal Cannula 2.0 98.5 10/07/17 19:07 74 10/07/17 18:42 147/80 10/07/17 18:42 147/80 10/07/17 18:42 79 147/80 Intake and Output 5/22/18 5/23/18 19:00 07:00 Intake Total 190 ml 600 ml Output Total 550 ml 2000 ml Balance -360 ml -1400 ml IV Total 130 ml 90 ml Tube Feeding 60 ml 360 ml Other 150 ml Output Urine Total 550 ml 1800 ml Stool Total 200 ml Laboratory Tests 10/08/17 04:00: White Blood Count 9.8, Red Blood Count 3.93L, Hemoglobin 10.2L, Hematocrit 32.8L , Mean Corpuscular Volume 84, Mean Corpuscular Hemoglobin 25.8L, Mean Corpuscular Hemoglobin Concent 30.9L, Red Cell Distribution Width 16.9H, Platelet Count 215, Mean Platelet Volume 6.7, Neutrophils (%) (Auto) 63.0, Lymphocytes (%) (Auto) 23.1, Monocytes (%) (Auto) 8.8, Eosinophils (%) (Auto) 4.6H, Basophils (%) (Auto) 0.5, Sodium Level 133L, Potassium Level 4.4, Chloride Level 100, Carbon Dioxide Level 29, Anion Gap 4L, Blood Urea Nitrogen 26H, Creatinine 1.7H, Estimat Glomerular Filtration Rate , Glucose Level 128#H, Calcium Level 9.4 Height (Feet): 5 Height (Inches): 8.00 Weight (Pounds): 210 General Appearance: no apparent distress Objective no other change ROSE MARY REID October 08, 2017 16:33
[2017-10-08] MEDS ORDERED: NORVASC5 MG ORAL (17:45)
[2017-10-08] MEDS ORDERED: CHLORHEXIDINE MC (17:47)
[2017-10-08] MEDS ORDERED: FAMOTIDINE20 MG ORAL (17:49)
[2017-10-08] MEDS ORDERED: HYDRALAZIN20 MG/1 ML GT (17:51)
[2017-10-08] MEDS ORDERED: POTASSIUM CHLO20 ME2 ORAL (17:54)
[2017-10-08] MEDS ORDERED: NOVOLOG100 UNIT/3 SUBQ (17:56)
[2017-10-08] MEDS ORDERED: Dyna-Hex 2% Top Sol 2oz TOPIC SCH (20:00)
[2017-10-08] MEDS ORDERED: Heparin 5000 units/ml inj SUBQ SCH (21:00)
--- NOTE | 2017-10-09 03:30 | Consultation ---
DATE OF CONSULTATION: 10/08/2017 NOTE: POOR AUDIO HEMATOLOGY/ONCOLOGY CONSULTATION CONSULTING PHYSICIAN: Addy Giron M.D. REQUESTING PHYSICIAN: Sagar Melvin M.D. 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 IDENTIFYING DATA: Dear Dr. Melvin, The patient is a pleasant 87-year-old male with past medical history, which is significant for CVA, right-sided hemiparesis, organic brain disorder, hypertension, gastric ulceration, dementia, [facility]. The patient admitted dehydration, hypoxemia, admitted several days ago, status post gastrostomy tube in the past. At this time, the patient has been seen by Infectious Disease, Dr. Murray UTI, noted to have anemia as well. 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 Hematology Service was consulted for further evaluation and treatment. PAST MEDICAL HISTORY: CAD, GERD, CVA, TIA, dementia, and hypertension. PAST SURGICAL HISTORY: CABG and G-tube. ALLERGIES: No known drug allergies. SOCIAL HISTORY: Lives in a assisted. No alcohol, tobacco, or illicit drug use. REVIEW OF SYSTEMS: Difficult to obtain due to mental status changes. PHYSICAL EXAMINATION: VITAL SIGNS: Reviewed. GENERAL: No distress. LUNGS: Decreased breath sounds. CARDIOVASCULAR: Regular rate. No S3 or S4. ABDOMEN: Soft. It is nontender. It is nondistended. EXTREMITIES: No cyanosis, swelling, or edema. LABORATORY AND DIAGNOSTIC DATA: WBC of 9.8, hemoglobin 10.2, hematocrit 33, and platelet count 215,000. Imaging has been reviewed. Chest x-ray reviewed from 10/06/2017, suspected left-sided basilar infiltrate. ASSESSMENT AND RECOMMENDATIONS: 1. MGUS, monoclonal gammopathy of unknown significance. Serum protein electrophoresis shows band with an elevated gamma band. Monoclonal immunoglobulin was negative. Obtain immunofixation. Obtain as well immunoglobulin, IgM, IgG, IgA for workup. Imaging also has been reviewed. At this time, creatinine has been improving and anemia workup reviewed as well. 2. iron deficiency at the moment. Continue to monitor. 3. chronic disease. Closely monitor. The patient with acute kidney injury, which has since improved, initially had severe acute kidney injury, feeling better, seen by Nephrology Service. 4. Sepsis, leukocytosis is currently better with septic shock, which has since resolved. 5. Bacteremia, Staph capitis contamination. 6. Pneumonia, multi-drug resistant Acinetobacter. 7. Urinary tract infection . 8. 9. Do not resuscitate/Do not intubate. I appreciate the consultation. Addy Giron M.D. DR: SILVESTRE JOB#: [id number] CC:
--- NOTE | 2017-10-09 14:25 | Discharge Summary ---
Discharge Summary Discharge Summary _ DATE OF ADMISSION: 09/19/2017 DATE OF DISCHARGE: 10/08/2017 CONSULTANTS: Dr. Mukul Melvin BRIEF HOSPITAL COURSE: Patient is an 87-year-old -[place] gentleman, with past medical history of CVA with right hemiparesis, organic brain syndrome, coronary artery disease, hypertension, gastric ulcer, dementia, who was recently admitted at [facility] from 08/26/2017 to 09/04/2017, due to diastolic heart failure and fluid overload. On the day of admission, he was noted to have desaturation and hypoxemia at the care home. Paramedics brought him to ED. On arrival to ED, he appeared critical with agonal breathing. On evaluation was noted to be hypotensive with blood pressure in the systolic 80s. He underwent emergent intubation. A central line was inserted to the right jugular vein. He was given IV resuscitation. Blood work showed elevated WBC 15.4. BUN and creatinine was elevated to 3.3/ 135. Sodium was elevated to 153, potassium level of 6.5, chloride 111. His blood pressure continued to deteriorate despite fluid boluses, he was started on levophed drip. Urinalysis showed 5-10 WBC, 0-2 RBC, 3+ leukocyte esterase. He had a chest x-ray that showed a focal dense airspace opacity in the right mid/upper lung concerning for pneumonia. He was then admitted to ICU for evaluation of sepsis, respiratory failure, renal failure. He came in febrile, temperature 100.5. He was started on vancomycin and Zosyn. He was continued on IV fluids. He was followed by a floor service worker spring for ventilator management. He was continued on G-tube feedings. He had a recent EGD with colonoscopy on July 2017 at [facility] that showed hernia, polyps, diverticulosis. He had drop in hemoglobin. Stool OB was positive. He received total of 3 units packed RBC blood transfusion. He was initially on proton pump inhibitors and was later on changed to H2 blockers twice a day. Reglan was eventually discontinued due to renal insufficiency. He had episodes of diarrhea and was given prn Imodium. C. difficile was negative. He had elevated liver transaminases. Hepatitis serology was negative. Abdominal ultrasound showed no cholelithiasis, no pericholecystic fluid. Blood culture showed growth of Staphylococcus capitis. Urine culture with Proteus ESBL. Sputum with growth of MDR A. baumanii and Proteus ESBL. Vancomycin was discontinued and was given Tygacil. Tygacil was eventually switched to minocycline and colistin inhaled. He was agitated and was placed on restraints. Patient was confused. He was given Seroquel and Haldol. He was eventually taken off IV pressors. He was continued on weaning efforts off vent support. Family meeting was done. Patient CODE STATUS was changed to DO NOT RESUSCITATE/DO NOT INTUBATE. Patient for trial at extubation and if fail, no plans for re-intubation. He then underwent palliative extubation on 09/30/2017. Post extubation he was placed on BiPAP and was transferred to [facility]. He was finally tapered off BiPAP and was placed on nasal cannula for O2 support. Renal parameters were monitored. He was given IV hydration. Creatinine down trended. Electrolytes were repeated. He had of hypernatremia that responded with fluid hydration. He also had episodes of low Na and was given 3% saline. Patient has acute renal failure and ATN. Renal function improved. 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 Dr. Addy Giron was consulted. Serum protein electrophoresis showed elevated gamma band. Patient with polyclonal gammopathy IgG, IgA. Can do follow-up workup as outpatient. He was eventually cleared for discharge back to care home. 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 DISCHARGE MEDICATIONS: Refer to Discharge Medication List. I have been assigned to dictate discharge summary on this account, and I was not involved in the patient's management. Christiane Rey NP October 09, 2017 14:25
== END 2017-10-08 19:04 | DRG 870 ==
LOC: EDBD 10:07 → EMR 10:39 → ICU 10:46 → EDBEDREQ 10:59 → 2W 10-02 14:44 → 4W 10-08 12:01
PROC: 5A1955Z Respiratory Ventilation, Greater than 96 Consecutive Hours (ICD-10-PCS; principal; 2017-09-19)
PROC: 0BH17EZ Insertion of Endotracheal Airway into Trachea, Via Natural or Artificial Opening (ICD-10-PCS; principal; 2017-09-19)
PROC: 05HM33Z Insertion of Infusion Device into Right Internal Jugular Vein, Percutaneous Approach (ICD-10-PCS; principal; 2017-09-19)
PROC: 02HV33Z Insertion of Infusion Device into Superior Vena Cava, Percutaneous Approach (ICD-10-PCS; 2017-09-26)
PROC: B548ZZA Ultrasonography of Superior Vena Cava, Guidance (ICD-10-PCS; 2017-09-26)
DX: A41.9 Sepsis, unspecified organism (principal); R65.21 Severe sepsis with septic shock; J69.0 Pneumonitis due to inhalation of food and vomit; G93.40 Encephalopathy, unspecified; J96.01 Acute respiratory failure with hypoxia; J15.6 Pneumonia due to other Gram-negative bacteria; J15.8 Pneumonia due to other specified bacteria; N17.0 Acute kidney failure with tubular necrosis; E43 Unspecified severe protein-calorie malnutrition; N39.0 Urinary tract infection, site not specified; I69.951 Hemiplegia and hemiparesis following unspecified cerebrovascular disease affecting right dominant side; E87.0 Hyperosmolality and hypernatremia; R71.0 Precipitous drop in hematocrit; F09 Unspecified mental disorder due to known physiological condition; F03.90 Unspecified dementia, unspecified severity, without behavioral disturbance, psychotic disturbance, mood disturbance, and anxiety; I25.10 Atherosclerotic heart disease of native coronary artery without angina pectoris; Z95.1 Presence of aortocoronary bypass graft; I12.9 Hypertensive chronic kidney disease with stage 1 through stage 4 chronic kidney disease, or unspecified chronic kidney disease; E11.22 Type 2 diabetes mellitus with diabetic chronic kidney disease; N18.3 Chronic kidney disease, stage 3 (moderate); Z93.1 Gastrostomy status; E86.0 Dehydration; E87.5 Hyperkalemia; Z68.31 Body mass index [BMI] 31.0-31.9, adult; E11.65 Type 2 diabetes mellitus with hyperglycemia; N31.9 Neuromuscular dysfunction of bladder, unspecified; E78.5 Hyperlipidemia, unspecified; D50.9 Iron deficiency anemia, unspecified; D63.1 Anemia in chronic kidney disease; D47.2 Monoclonal gammopathy; R19.7 Diarrhea, unspecified; R74.0 Nonspecific elevation of levels of transaminase and lactic acid dehydrogenase [LDH]; Z66 Do not resuscitate; R13.10 Dysphagia, unspecified; Z78.1 Physical restraint status
CPT/HCPCS: 36415; 36569; 36600; 71045; 76700; 76937; 80048; 80053; 80061; 80202; 81003; 81050; 82150; 82270; 82533; 82550; 82553; 82607; 82728; 82746; 82784; 82803; 82962; 82977; 83036; 83540; 83550; 83605; 83690; 83735; 83880; 84100; 84165; 84300; 84443; 84484; 84550; 85007; 85025; 85610; 85730; 86140; 86334; 86705; 86709; 86803; 86850; 86900; 86901; 86920; 87040; 87070; 87081; 87086; 87181; 87205; 87324; 87340; 93005; 93306; 94002; 94003; 94640; 94660; 94664; 94760; 99285; 99291; J1815; J7620; J8499

== ENCOUNTER 2017-10-20 03:07 | Inpatient (IN) | payer MEDICARE, MEDICAID ==
[~2017-10-20] VITALS: Ht 188 cm; Wt 94.8 kg
[2017-10-20] VITALS (7 sets, daily range): BP systolic 85–154; BP diastolic 52–74
[~2017-10-20 03:07] MED LIST changes: +A & D OINT1 APPLI1 TOPIC; +ARGINAID POWDE1 EACH PO; +BENADRYL25 MG ORAL; +BISACODYL5 MG RECTAL; +CATAPRES0.1 MG GT; +CHLORHEXIDINE MC; +COREG25 MG GT; +DUONEB 0.5-3(2.53 ML HHN; -Etomidate 40mg/20ml Inj IV ONE; +FAMOTIDINE20 MG ORAL; +HYDRALAZIN20 MG/1 ML GT; +HYDROGEL3000 GM TOPIC; +MULTIVITAMINS1 EAC8 GT; +NORVASC5 MG ORAL; +NOVOLOG100 UNIT/3 SUBQ; +PLAVIX75 MG GT; +POTASSIUM CHLO20 ME2 ORAL; +PROSCAR5 MG GT; +ZANTAC150 MG ORAL; +ZOFRAN4 M3 GT; -Zemuron 50mg/5ml Inj IV ONE
--- NOTE | 2017-10-20 03:21 | Emergency Room Report ---
History of Present Illness General Chief Complaint: Dyspnea/Respdistress Source: Medical Record, EMS Present Illness HPI Patient presents by paramedics from nursing facility Patient presents in acute distress short of breath and hypoxic Patient has a DO NOT RESUSCITATE/DO NOT INTUBATE band on his right arm However was brought without any POLST form Patient was recently here and required airway intubation given the worsening breathing status At this time unclear the time of duration of shortness of breath Patient is nonverbal with us Appears in critical status Allergies: Coded Allergies: No Known Allergies (Verified , 01/02/09) Patient History Limited by: medical condition Past Medical History: see triage record Pertinent Family History: unable to obtain Reviewed Nursing Documentation: PMH: Agreed; PSxH: Agreed Nursing Documentation-PMH Past Medical History: No History, Except For Hx Cardiac Problems: Yes - Hyperlipidemia, NSTEMI, CABG (3 vessel) 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 Hx Gastrointestinal Problems: Yes - dysphagia, G-tube, PUD, GERD Hx Neurological Problems: Yes - Generalized muscle weakness, Vertigo 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, affecting right dominant side Hx Seizures: Yes Review of Systems All Other Systems: limited - Other than the ones mentioned in the history of present illness all others are reviewed however they do stay limited due to the patient's mental status Physical Exam Vital Signs Date Time Temp Pulse Resp B/P (MAP) Pulse Ox O2 Delivery O2 Flow Rate FiO2 10/20/17 02:47 97.5 112 20 137/82 97 Non-Rebreather 97.5 Sp02 EP Interpretation: reviewed, normal General Appearance: moderate distress - Tachypneic and short of breath Head: normocephalic, atraumatic Eyes: bilateral eye PERRL ENT: nasal congestion Neck: supple, thyroid normal Respiratory: crackles - Diffusely, tachypneic with mild retractions Cardiovascular #1: no edema, tachycardia Gastrointestinal: non tender, soft - Feeding tube in place Musculoskeletal: other - Patient does not move extremities to command, decreased GCS Neurologic: responsive - To physical stimuli Skin: palpation normal, other - Decubitus ulcer Lymphatic: no adenopathy Procedures Critical Care Time Critical Care Time 50 minutes for multiple re-evaluations Critical presentation concerning for respiratory failure and possible cardiac not including any procedural time Medical Decision Making Diagnostic Impression: Primary Impression: Sepsis Additional Impressions: Decubital ulcer UTI (urinary tract infection) Elevated troponin Respiratory distress DNR (do not resuscitate) ER Course Patient is a fairly complex patient with multiple differential to consideration including but not limited to cardiac cardiopulmonary and vascular emergencies Patient does have a DO NOT RESUSCITATE on file There was discussion last time with family and we have that documented in the computer Patient at this time provided with ABG which shows hypoxia BiPAP was initiated Troponin is elevated urine shows many bacteria X-ray shows some crowding however no obvious acute pathology Patient will have further hydration and antibiotics and inpatient care, Labs Test 10/20/17 03:33 10/20/17 03:43 White Blood Count 19.0 K/UL (4.8-10.8) Red Blood Count 5.04 M/UL (4.70-6.10) Hemoglobin 12.7 G/DL (14.2-18.0) Hematocrit 42.7 % (42.0-52.0) Mean Corpuscular Volume 85 FL (80-99) Mean Corpuscular Hemoglobin 25.2 PG (27.0-31.0) Mean Corpuscular Hemoglobin Concent 29.7 G/DL (32.0-36.0) Red Cell Distribution Width 16.9 % (11.6-14.8) Platelet Count 445 K/UL (150-450) Mean Platelet Volume 5.8 FL (6.5-10.1) Neutrophils (%) (Auto) % (45.0-75.0) Lymphocytes (%) (Auto) % (20.0-45.0) Monocytes (%) (Auto) % (1.0-10.0) Eosinophils (%) (Auto) % (0.0-3.0) Basophils (%) (Auto) % (0.0-2.0) Urine Color Yellow Urine Appearance Cloudy Urine pH 5 (4.5-8.0) Urine Specific [place] 1.010 (1.005-1.035) Urine Protein 3+ (NEGATIVE) Urine Glucose (UA) Negative (NEGATIVE) Urine Ketones Negative (NEGATIVE) Urine Occult Blood 4+ (NEGATIVE) Urine Nitrite Negative (NEGATIVE) Urine Bilirubin Negative (NEGATIVE) Urine Urobilinogen Normal MG/DL (0.0-1.0) Urine Leukocyte Esterase 3+ (NEGATIVE) Urine RBC 20-30 /HPF (0 - 0) Urine WBC Tntc /HPF (0 - 0) Urine Squamous Epithelial Cells None /LPF (NONE/OCC) Urine Bacteria Many /HPF (NONE) Sodium Level 154 MMOL/L (136-145) Potassium Level 5.6 MMOL/L (3.5-5.1) Chloride Level 116 MMOL/L (98-107) Carbon Dioxide Level 32 MMOL/L (21-32) Anion Gap 6 mmol/L (5-15) Blood Urea Nitrogen 117 mg/dL (7-18) Creatinine 2.9 MG/DL (0.55-1.30) Estimat Glomerular Filtration Rate mL/min (>60) Glucose Level 162 MG/DL (74-106) Calcium Level 9.5 MG/DL (8.5-10.1) Troponin I 0.138 ng/mL (0.000-0.056) Arterial Blood pH 7.387 (7.350-7.450) Arterial Blood Partial Pressure CO2 55.4 mmHg (35.0-45.0) Arterial Blood Partial Pressure O2 52.5 mmHg (75.0-100.0) Arterial Blood HCO3 32.6 mmol/L (22.0-26.0) Arterial Blood Oxygen Saturation 87.4 % (92.0-98.0) Arterial Blood Base Excess 6.1 Librado Test Positive EKG Diagnostic Results Rate: tachycardiac Rhythm: other ST Segments: other - Nonspecific ST T-wave changes Rhythm Strip Diag. Results EP Interpretation: yes Rate: 110 Rhythm: no PVC's, no ectopy, other - Sinus tach Chest X-Ray Diagnostic Results Chest X-Ray Diagnostic Results : Chest X-Ray Ordered: Yes # of Views/Limited/Complete: 1 View Indication: Shortness of Breath EP Interpretation: Yes Interpretation: no consolidation, no pneumothorax, other - Bilateral atelectasis poor inspiration, Impression: Other - Poor inspiration, bilateral atelectasis Electronically Signed by: Harpreet Hart DO Last Vital Signs Date Time Temp Pulse Resp B/P (MAP) Pulse Ox O2 Delivery O2 Flow Rate FiO2 10/20/17 02:47 97.5 112 20 137/82 97 Non-Rebreather 97.5 Status: improved Disposition: ADMITTED INPATIENT Condition: Critical Harpreet Hart DO Oct 20, 2017 03:21
[2017-10-20 03:52] LABS: APPEARANCE,URINE CLOUDY; BILIRUBIN, URINE NEGATIVE (NEGATIVE); GLUCOSE, URINE (UA) NEGATIVE (NEGATIVE); KETONES,URINE NEGATIVE (NEGATIVE); LEUKOCYTE ESTERASE ,URINE 3+ (NEGATIVE); NITRITE,URINE NEGATIVE (NEGATIVE); PH,URINE 5 (4.5-8.0); PROTEIN,URINE 3+ (NEGATIVE); UROBILINOGEN,URINE NORMAL MG/DL (0.0-1.0)
[2017-10-20 03:55] LABS: COLOR,URINE YELLOW; HEMATOCRIT 42.7 % (42.0-52.0); HEMOGLOBIN 12.7 G/DL (14.2-18.0); MEAN CORPUSCULAR VOLUME 85 FL (80-99); PLATELET COUNT 445 K/UL (150-450); RED BLOOD COUNT 5.04 M/UL (4.70-6.10); RED CELL DISTRIBUTION WIDTH 16.9 % (11.6-14.8)
[2017-10-20 04:08] LABS: ANION GAP 6 mmol/L (5-15); BLOOD UREA NITROGEN 117 mg/dL (7-18); CALCIUM 9.5 MG/DL (8.5-10.1); CARBON DIOXIDE 32 MMOL/L (21-32); CHLORIDE 116 MMOL/L (98-107); CREATININE 2.9 MG/DL (0.55-1.30); POTASSIUM 5.6 MMOL/L (3.5-5.1); SODIUM 154 MMOL/L (136-145)
[2017-10-20] MEDS ORDERED: QUETIAPINE FUMA25 MG ORAL (04:13)
[2017-10-20] MEDS ORDERED: IMODIUM A-1 MG/7.5 M PO (04:13)
[2017-10-20] MEDS ORDERED: Enoxaparin 100mg Inj SUBQ ONE (04:30)
[2017-10-20] MEDS ORDERED: cefTRIAXone 1 GM in D5W 55 ML IVPB ONE (04:30)
[2017-10-20 04:34] LABS: ALANINE AMINOTRANSFERASE 272 U/L (12-78); ALBUMIN/GLOBULIN RATIO 0.3 (1.0-2.7); ALKALINE PHOSPHATASE 163 U/L (46-116); ASPARTATE AMINO TRANSFERASE 245 U/L (15-37); BILIRUBIN,TOTAL 0.2 MG/DL (0.2-1.0); CKMB 2.5 NG/ML (0.0-3.6); CREATINE KINASE 146 U/L (26-308)
[2017-10-20] MEDS ORDERED: Miralax 17gm pkt ORAL PRN (06:30)
[2017-10-20] MEDS ORDERED: Nitroglycerin Subl 0.4mg tab SL PRN (06:30)
[2017-10-20] MEDS ORDERED: Mylanta II UD 30ml ORAL PRN (06:30)
[2017-10-20] MEDS ORDERED: Albuterol/Ipratropium 3ml neb HHN PRN (06:30)
[2017-10-20] MEDS ORDERED: Promethazine/Codeine 5ml UD ORAL PRN (06:30)
[2017-10-20] MEDS ORDERED: Mylanta II UD 30ml GT PRN (08:21)
[2017-10-20] MEDS ORDERED: Promethazine/Codeine 5ml UD GT PRN (08:21)
[2017-10-20] MEDS ORDERED: Miralax 17gm pkt GT PRN (08:21)
[2017-10-20] MEDS ORDERED: Acetaminophen 650mg/20.3ml GT PRN (08:21)
[2017-10-20] MEDS: Heparin 5000 units/ml inj SUBQ SCH ×2 (09:19→21:12)
[2017-10-20] MEDS: Carvedilol 25mg Tab GT SCH ×2 (09:20→21:11)
[2017-10-20] MEDS ORDERED: CEFEPIME HCL IV SCH (09:30)
[2017-10-20] MEDS ORDERED: D5W IV SCH (09:30)
[2017-10-20] MEDS ORDERED: Vancomycin 1.5 GM/D5W 250ML IVPB SCH (10:00)
--- NOTE | 2017-10-20 11:02 | History and Physical ---
History of Present Illness General Date patient seen: Oct 20, 2017 Reason for Hospitalization: Dyspnea/Respdistress Present Illness HPI 87 year old male with hx of CVA, Dementia, renal insufficiency, DM bed bound, with recent pneumonia and intubation, who was brought from detention with CC of dyspnea and desaturation. Pt was in respiratory failure in ER and was put on BIPAP and transferred to [facility]. Pt is awake, but can't communicate or understand. Pt's daughter is at the bed site who is requesting DNR/DNI status. Allergies: Coded Allergies: No Known Allergies (Verified , 01/02/09) Medication History Scheduled Acetaminophen (Acetaminophen), 650 MG GT EVERY 4 HOURS, (Reported) Amino Acids/Protein Hydrolys (Pro-Stat Liquid), 30 ML GT DAILY, (Reported) Amlodipine Besylate (Norvasc), 5 MG ORAL BID, (Reported) Amlodipine Besylate* (Amlodipine Besylate*), 10 MG GT DAILY, (Reported) Arginine/Ascorbate Sod/Romina AC (Arginaid Powder), 1 EACH PO BID, (Reported) Ascorbic Acid* (Vitamin C*), 500 MG GT DAILY, (Reported) Ascorbic Acid* (Vitamin C*), 500 MG GT DAILY, (Reported) Aspirin* (Aspirin*), 81 MG GT DAILY, (Reported) Atorvastatin Calcium* (Atorvastatin Calcium*), 80 MG GT BEDTIME, (Reported) Bacitracin Zinc (Bacitracin Zinc), 1 APPLIC TP THREE TIMES A DAY, (Reported) Carvedilol (Coreg), 25 MG GT EVERY 12 HOURS, (Reported) Chlorhexidine Gluconate (Chlorhexidine Gluconate), 2,000 ML MC DAILY, (Reported) Clonidine Hcl* (Catapres*), 0.1 MG GT DAILY, (Reported) Clopidogrel Bisulfate* (Plavix*), 75 MG GT DAILY, (Reported) Docusate Sodium* (Colace*), 100 MG GT DAILY, (Reported) Enoxaparin* (Lovenox*), 40 MG SUBQ DAILY, (Reported) Epoetin Sathish (Epogen), 7,000 UNIT SUBQ 3XW, (Reported) Famotidine (Famotidine), 20 MG ORAL TWICE A DAY, (Reported) Finasteride* (Proscar*), 5 MG GT DAILY, (Reported) Gel Base No.41 (Hydrogel), 1 APPLIC TOPIC DAILY, (Reported) Heparin Sod (Porcine) (Heparin Sodium*), 5,000 UNITS SUBQ EVERY 12 HOURS, ( Reported) Hydralazine HCl (Hydralazine HCl), 25 MG GT Q8HR, (Reported) Hydralazine Hcl (Hydralazine Hcl), 20 MG GT Q6HR, (Reported) Hydralazine Hcl* (Hydralazine Hcl*), 50 MG GT Q8HR Insulin Aspart* (Novolog*), 0 SUBQ Q6HR, (Reported) Lisinopril* (Lisinopril*), 40 MG GT DAILY, (Reported) Lorazepam (Lorazepam), 1 MG IV Q4H, (Reported) Metoprolol Tartrate (Metoprolol Tartrate), 12.5 MG GT Q12HR Metoprolol Tartrate* (Metoprolol Tartrate*), 25 MG GT EVERY 12 HOURS, (Reported) Multivitamin With Minerals (Multivitamins With Minerals*), 1 TAB GT DAILY, ( Reported) Pantoprazole* (Protonix*), 40 MG IVP EVERY 12 HOURS, (Reported) Quetiapine Fumarate* (Seroquel*), 12.5 MG ORAL DAILY, (Reported) Ranitidine Hcl* (Zantac*), 150 MG ORAL TWICE A DAY, (Reported) Tamsulosin HCl (Flomax), 0.8 MG GT DAILY, (Reported) Vitamin A & D (Vitamin A & D Ointment), 1 APPLIC TOPIC DAILY, (Reported) Zinc Sulfate (Zinc Sulfate*), 220 MG GT DAILY, (Reported) Scheduled PRN Bisacodyl* (Dulcolax*), 10 MG RECTAL ONCE PRN for Constipation, (Reported) Diphenhydramine Hcl* (Benadryl*), 25 MG ORAL Q8HR PRN for Itching, (Reported) Ipratropium [place] 0.5MG/2.5ML (Ipratropium [place] 0.5MG/2.5ML), 0.5 MG HHN Q4HR PRN for Shortness of Breath, (Reported) Ipratropium/Albuterol Sulfate (DuoNeb 0.5-3(2.5)mg/3ml), 3 ML HHN EVERY 4 HOURS PRN for Shortness of Breath, (Reported) Ondansetron* (Zofran*), 4 MG IV Q6H PRN for Nausea & Vomiting, (Reported) Ondansetron* (Zofran*), 4 MG GT Q6H PRN for Nausea & Vomiting, (Reported) Polyethylene Glycol 3350* (Miralax*), 17 GM ORAL DAILY PRN for Constipation, ( Reported) Potassium Chloride (Potassium Chloride), 20 MEQ ORAL DAILY PRN for Abdominal cramps, (Reported) Miscellaneous Medications Loperamide Hcl (Imodium A-D), 2 MG PO, (Reported) [d5w 50c 3d] Patient History Healthcare decision maker Resuscitation status Do Not Resuscitate Advanced Directive on File Past Medical/Surgical History Past Medical/Surgical History: (1) Decubital ulcer (2) DNR (do not resuscitate) (3) Diabetes mellitus (4) Feeding by G-tube Review of Systems All Other Systems: negative except mentioned in HPI Physical Exam General Appearance: WD/WN Lines, tubes and drains: peripheral HEENT: normocephalic, atraumatic Neck: non-tender, normal alignment Respiratory/Chest: chest wall non-tender, lungs clear Breasts: no masses Cardiovascular/Chest: normal peripheral pulses Abdomen: normal bowel sounds, non tender Genitourinary/Rectal: normal genital exam Extremities: normal range of motion Last 24 Hour Vital Signs Date Time Temp Pulse Resp B/P (MAP) Pulse Ox O2 Delivery O2 Flow Rate FiO2 10/20/17 09:21 97 113/74 10/20/17 09:20 97 113/74 10/20/17 08:00 99.4 97 43 113/74 97 Bi-pap 50 99.4 10/20/17 08:00 98 10/20/17 08:00 50 10/20/17 07:11 102 46 98 Facial 50 10/20/17 06:02 97.7 109 38 85/57 96 Bi-pap 14.0 50 97.7 10/20/17 05:29 125 39 98 Facial 50 10/20/17 05:00 112 42 120/71 99 Bi-pap 14.0 50 10/20/17 05:00 97.5 112 42 120/71 99 Bi-pap 14.0 50 97.5 10/20/17 04:17 116 39 Bi-pap 50 10/20/17 04:17 116 39 96 Facial 50 10/20/17 03:10 107 32 93/71 100 Non-Rebreather 15.0 10/20/17 03:10 112 20 Non-Rebreather 15.0 10/20/17 02:47 97.5 112 20 137/82 97 Non-Rebreather 97.5 Intake and Output 10/19/17 10/20/17 19:00 07:00 Intake Total 0 ml Output Total 400 ml Balance -400 ml Intake Oral 0 ml Output Urine Total 400 ml Laboratory Tests Test 10/20/17 03:33 10/20/17 03:43 White Blood Count 19.0 K/UL (4.8-10.8) H Red Blood Count 5.04 M/UL (4.70-6.10) Hemoglobin 12.7 G/DL (14.2-18.0) L Hematocrit 42.7 % (42.0-52.0) Mean Corpuscular Volume 85 FL (80-99) Mean Corpuscular Hemoglobin 25.2 PG (27.0-31.0) L Mean Corpuscular Hemoglobin Concent 29.7 G/DL (32.0-36.0) L Red Cell Distribution Width 16.9 % (11.6-14.8) H Platelet Count 445 K/UL (150-450) Mean Platelet Volume 5.8 FL (6.5-10.1) L Neutrophils (%) (Auto) % (45.0-75.0) Lymphocytes (%) (Auto) % (20.0-45.0) Monocytes (%) (Auto) % (1.0-10.0) Eosinophils (%) (Auto) % (0.0-3.0) Basophils (%) (Auto) % (0.0-2.0) Urine Color Yellow Urine Appearance Cloudy Urine pH 5 (4.5-8.0) Urine Specific [place] 1.010 (1.005-1.035) Urine Protein 3+ (NEGATIVE) H Urine Glucose (UA) Negative (NEGATIVE) Urine Ketones Negative (NEGATIVE) Urine Occult Blood 4+ (NEGATIVE) H Urine Nitrite Negative (NEGATIVE) Urine Bilirubin Negative (NEGATIVE) Urine Urobilinogen Normal MG/DL (0.0-1.0) Urine Leukocyte Esterase 3+ (NEGATIVE) H Urine RBC 20-30 /HPF (0 - 0) H Urine WBC Tntc /HPF (0 - 0) H Urine Squamous Epithelial Cells None /LPF (NONE/OCC) Urine Bacteria Many /HPF (NONE) H Sodium Level 154 MMOL/L (136-145) H Potassium Level 5.6 MMOL/L (3.5-5.1) H Chloride Level 116 MMOL/L (98-107) H Carbon Dioxide Level 32 MMOL/L (21-32) Anion Gap 6 mmol/L (5-15) Blood Urea Nitrogen 117 mg/dL (7-18) H Creatinine 2.9 MG/DL (0.55-1.30) H Estimat Glomerular Filtration Rate mL/min (>60) Glucose Level 162 MG/DL (74-106) H Lactic Acid Level 1.90 mmol/L (0.4-2.0) Calcium Level 9.5 MG/DL (8.5-10.1) Total Bilirubin 0.2 MG/DL (0.2-1.0) Aspartate Amino Transf (AST/SGOT) 245 U/L (15-37) H Alanine Aminotransferase (ALT/SGPT) 272 U/L (12-78) H Alkaline Phosphatase 163 U/L (46-116) H Total Creatine Kinase 146 U/L (26-308) Creatine Kinase MB 2.5 NG/ML (0.0-3.6) Creatine Kinase MB Relative Index 1.7 Troponin I 0.138 ng/mL (0.000-0.056) Pro-B-Type Natriuretic Peptide 1645 pg/mL (0-125) H Total Protein 9.8 G/DL (6.4-8.2) H Albumin 2.0 G/DL (3.4-5.0) L Globulin 7.8 g/dL Albumin/Globulin Ratio 0.3 (1.0-2.7) L Lipase 857 U/L (73-393) H Arterial Blood pH 7.387 (7.350-7.450) Arterial Blood Partial Pressure CO2 55.4 mmHg (35.0-45.0) *H Arterial Blood Partial Pressure O2 52.5 mmHg (75.0-100.0) L Arterial Blood HCO3 32.6 mmol/L (22.0-26.0) H Arterial Blood Oxygen Saturation 87.4 % (92.0-98.0) L Arterial Blood Base Excess 6.1 Librado Test Positive Height (Feet): 6 Height (Inches): 2.00 Weight (Pounds): 210 Medications Current Medications Medications (Trade) Dose Ordered Sig/Keira Route PRN Reason Start Time Stop Time Status Last Admin Dose Admin Acetaminophen (Tylenol) 650 mg Q4H PRN GT Mild Pain/Temp > 100.5 10/20/17 08:21 11/19/17 08:20 Al Hydroxide/Mg Hydroxide (Mylanta II) 30 ml Q6H PRN GT dyspepsia 10/20/17 08:21 11/19/17 08:20 Albuterol/ Ipratropium (Albuterol/ Ipratropium) 3 ml Q4H PRN HHN Shortness of Breath 10/20/17 06:30 10/25/17 06:29 Amlodipine Besylate (Norvasc) 5 mg BID GT 10/20/17 09:00 11/19/17 08:59 10/20/17 09:21 Carvedilol (Coreg) 25 mg EVERY 12 HOURS GT 10/20/17 09:00 11/19/17 08:59 10/20/17 09:20 Cefepime HCl 0.5 gm/Dextrose 110 ml @ 220 mls/hr Q24H IV 10/20/17 09:30 10/27/17 09:29 10/20/17 09:25 Heparin Sodium (Porcine) (Heparin 5000 units/ml) 5,000 units EVERY 12 HOURS SUBQ 10/20/17 09:00 11/19/17 08:59 10/20/17 09:19 Nitroglycerin (Ntg) 0.4 mg Q5M PRN SL Prn Chest Pain 10/20/17 06:30 11/19/17 06:29 Ondansetron HCl (Zofran) 4 mg Q6H PRN IVP Nausea & Vomiting 10/20/17 06:30 11/19/17 06:29 Polyethylene Glycol (Miralax) 17 gm DAILYPRN PRN GT Constipation 10/20/17 08:21 11/19/17 08:20 Promethazine HCl/ Codeine (Phenergan with Codeine) 5 ml Q4H PRN GT For Cough 10/20/17 08:21 11/19/17 08:20 Quetiapine Fumarate (SEROquel) 12.5 mg DAILY GT 10/20/17 09:00 11/19/17 08:59 10/20/17 09:19 Temazepam (Restoril) 15 mg HSPRN PRN GT Insomnia 10/20/17 21:00 10/27/17 20:59 Vancomycin HCl (Vanco rx to dose) 1 ea DAILY PRN MISC Per rx protocol 10/20/17 06:30 11/19/17 06:29 Vancomycin HCl/ Dextrose 250 ml @ 125 mls/hr ONCE IVPB 10/20/17 10:00 10/20/17 11:00 10/20/17 10:27 Assessment/Plan Problem List: (1) Acute respiratory failure ICD Codes: J96.00 - Acute respiratory failure, unspecified whether with hypoxia or hypercapnia SNOMED: 22283534 (2) Sepsis ICD Codes: A41.9 - Sepsis, unspecified organism SNOMED: 35845253 (3) UTI (urinary tract infection) ICD Codes: N39.0 - Urinary tract infection, site not specified SNOMED: 89806984 (4) Decubital ulcer ICD Codes: L89.90 - Pressure ulcer of unspecified site, unspecified stage SNOMED: 230816902 (5) s/p multiple lacunar strokes, old (6) Diabetes mellitus ICD Codes: E11.9 - Type 2 diabetes mellitus without complications SNOMED: 18638535 (7) DNR (do not resuscitate) ICD Codes: Z66 - Do not resuscitate SNOMED: 829815510 (8) Feeding by G-tube ICD Codes: Z93.1 - Gastrostomy status SNOMED: 669753514, 931883346 Assessment/Plan titrate fio2 titrate BIPAP, short term broad spectrum abx check cultures respiratory treatment sliding scale diabetic gtube feeding dvt prophylaxis. Dhiraj Holly MD Oct 20, 2017 11:02
--- NOTE | 2017-10-20 12:19 | Diagnostic Imaging Report ---
Indication: Chest pain Technique: One view of the chest Comparison: 10/06/2017 Findings: Patient is rotated to the right. There is atelectasis and/or scarring at both lung bases. Lungs and pleural spaces are otherwise clear. Previously demonstrated pleural effusions and left basilar parenchymal opacities are no longer evident Impression: No definite acute process Bilateral basilar atelectasis and/or scarring
--- NOTE | 2017-10-20 14:52 | Consultation ---
History of Present Illness General Date patient seen: Oct 20, 2017 Chief Complaint: Dyspnea/Respdistress Present Illness HPI 87 y/o M with hx of CVA w/ R hemiplegia, seizure disorder, PUD, Dementia, renal insufficiency, DM bed bound, with recent pneumonia and intubation, CAD s/ p 3v CABG, HTN, GERD, dysphagia s/p GT presents to ED on 10/20 with respiratory distress, hypoxia. In ED placed on BIpap and admitted to [facility]. Currently DNR/DNI. Of note, patient admitted here from 09/19-10/08 with fever, septic shock. Found to have S. capitis bacteremia, ESBL proteus in urine, PNA with MDR A. baumanni and ESBL Proteus. Initially treated with Vanco and Zosyn> Tygacil and finished course with Minocycline and INH colistin. Allergies: Coded Allergies: No Known Allergies (Verified , 01/02/09) Medication History Scheduled Acetaminophen (Acetaminophen), 650 MG GT EVERY 4 HOURS, (Reported) Amino Acids/Protein Hydrolys (Pro-Stat Liquid), 30 ML GT DAILY, (Reported) Amlodipine Besylate (Norvasc), 5 MG ORAL BID, (Reported) Amlodipine Besylate* (Amlodipine Besylate*), 10 MG GT DAILY, (Reported) Arginine/Ascorbate Sod/Romina AC (Arginaid Powder), 1 EACH PO BID, (Reported) Ascorbic Acid* (Vitamin C*), 500 MG GT DAILY, (Reported) Ascorbic Acid* (Vitamin C*), 500 MG GT DAILY, (Reported) Aspirin* (Aspirin*), 81 MG GT DAILY, (Reported) Atorvastatin Calcium* (Atorvastatin Calcium*), 80 MG GT BEDTIME, (Reported) Bacitracin Zinc (Bacitracin Zinc), 1 APPLIC TP THREE TIMES A DAY, (Reported) Carvedilol (Coreg), 25 MG GT EVERY 12 HOURS, (Reported) Chlorhexidine Gluconate (Chlorhexidine Gluconate), 2,000 ML MC DAILY, (Reported) Clonidine Hcl* (Catapres*), 0.1 MG GT DAILY, (Reported) Clopidogrel Bisulfate* (Plavix*), 75 MG GT DAILY, (Reported) Docusate Sodium* (Colace*), 100 MG GT DAILY, (Reported) Enoxaparin* (Lovenox*), 40 MG SUBQ DAILY, (Reported) Epoetin Sathish (Epogen), 7,000 UNIT SUBQ 3XW, (Reported) Famotidine (Famotidine), 20 MG ORAL TWICE A DAY, (Reported) Finasteride* (Proscar*), 5 MG GT DAILY, (Reported) Gel Base No.41 (Hydrogel), 1 APPLIC TOPIC DAILY, (Reported) Heparin Sod (Porcine) (Heparin Sodium*), 5,000 UNITS SUBQ EVERY 12 HOURS, ( Reported) Hydralazine HCl (Hydralazine HCl), 25 MG GT Q8HR, (Reported) Hydralazine Hcl (Hydralazine Hcl), 20 MG GT Q6HR, (Reported) Hydralazine Hcl* (Hydralazine Hcl*), 50 MG GT Q8HR Insulin Aspart* (Novolog*), 0 SUBQ Q6HR, (Reported) Lisinopril* (Lisinopril*), 40 MG GT DAILY, (Reported) Lorazepam (Lorazepam), 1 MG IV Q4H, (Reported) Metoprolol Tartrate (Metoprolol Tartrate), 12.5 MG GT Q12HR Metoprolol Tartrate* (Metoprolol Tartrate*), 25 MG GT EVERY 12 HOURS, (Reported) Multivitamin With Minerals (Multivitamins With Minerals*), 1 TAB GT DAILY, ( Reported) Pantoprazole* (Protonix*), 40 MG IVP EVERY 12 HOURS, (Reported) Quetiapine Fumarate* (Seroquel*), 12.5 MG ORAL DAILY, (Reported) Ranitidine Hcl* (Zantac*), 150 MG ORAL TWICE A DAY, (Reported) Tamsulosin HCl (Flomax), 0.8 MG GT DAILY, (Reported) Vitamin A & D (Vitamin A & D Ointment), 1 APPLIC TOPIC DAILY, (Reported) Zinc Sulfate (Zinc Sulfate*), 220 MG GT DAILY, (Reported) Scheduled PRN Bisacodyl* (Dulcolax*), 10 MG RECTAL ONCE PRN for Constipation, (Reported) Diphenhydramine Hcl* (Benadryl*), 25 MG ORAL Q8HR PRN for Itching, (Reported) Ipratropium [place] 0.5MG/2.5ML (Ipratropium [place] 0.5MG/2.5ML), 0.5 MG HHN Q4HR PRN for Shortness of Breath, (Reported) Ipratropium/Albuterol Sulfate (DuoNeb 0.5-3(2.5)mg/3ml), 3 ML HHN EVERY 4 HOURS PRN for Shortness of Breath, (Reported) Ondansetron* (Zofran*), 4 MG IV Q6H PRN for Nausea & Vomiting, (Reported) Ondansetron* (Zofran*), 4 MG GT Q6H PRN for Nausea & Vomiting, (Reported) Polyethylene Glycol 3350* (Miralax*), 17 GM ORAL DAILY PRN for Constipation, ( Reported) Potassium Chloride (Potassium Chloride), 20 MEQ ORAL DAILY PRN for Abdominal cramps, (Reported) Miscellaneous Medications Loperamide Hcl (Imodium A-D), 2 MG PO, (Reported) [d5w 50c 3d] Patient History Healthcare decision maker Resuscitation status Do Not Resuscitate Advanced Directive on File Patient History Narrative Pmhx: as above Shx: reviewed Fmhx: non contributory Review of Systems ROS Narrative unable to obtain Physical Exam Physical Exam Narrative General Appearance: WD/WN Lines, tubes and drains: peripheral HEENT: normocephalic, atraumatic Neck: non-tender, normal alignment Respiratory/Chest: chest wall non-tender, lungs clear Cardiovascular/Chest: normal peripheral pulses Abdomen: normal bowel sounds, non tender Extremities: no rash, cellulitis Last 24 Hour Vital Signs Date Time Temp Pulse Resp B/P (MAP) Pulse Ox O2 Delivery O2 Flow Rate FiO2 10/20/17 12:33 79 36 99 Full Face 50 10/20/17 12:00 50 10/20/17 12:00 99.4 97 43 113/74 97 Bi-pap 50 99.4 10/20/17 12:00 80 10/20/17 12:00 99.4 97 43 113/74 97 Bi-pap 50 99.4 10/20/17 10:58 82 37 95 Facial 50 10/20/17 09:22 80 40 95 Full Face 50 10/20/17 09:21 97 113/74 10/20/17 09:20 97 113/74 10/20/17 08:00 99.4 97 43 113/74 97 Bi-pap 50 99.4 10/20/17 08:00 98 10/20/17 08:00 50 10/20/17 07:11 102 46 98 Facial 50 10/20/17 06:02 97.7 109 38 85/57 96 Bi-pap 14.0 50 97.7 10/20/17 05:29 125 39 98 Facial 50 10/20/17 05:00 112 42 120/71 99 Bi-pap 14.0 50 10/20/17 05:00 97.5 112 42 120/71 99 Bi-pap 14.0 50 97.5 10/20/17 04:17 116 39 Bi-pap 50 10/20/17 04:17 116 39 96 Facial 50 10/20/17 03:10 107 32 93/71 100 Non-Rebreather 15.0 10/20/17 03:10 112 20 Non-Rebreather 15.0 10/20/17 02:47 97.5 112 20 137/82 97 Non-Rebreather 97.5 Intake and Output 10/19/17 10/20/17 19:00 07:00 Intake Total 0 ml Output Total 400 ml Balance -400 ml Intake Oral 0 ml Output Urine Total 400 ml Laboratory Tests Test 10/20/17 03:33 10/20/17 03:43 White Blood Count 19.0 K/UL (4.8-10.8) H Red Blood Count 5.04 M/UL (4.70-6.10) Hemoglobin 12.7 G/DL (14.2-18.0) L Hematocrit 42.7 % (42.0-52.0) Mean Corpuscular Volume 85 FL (80-99) Mean Corpuscular Hemoglobin 25.2 PG (27.0-31.0) L Mean Corpuscular Hemoglobin Concent 29.7 G/DL (32.0-36.0) L Red Cell Distribution Width 16.9 % (11.6-14.8) H Platelet Count 445 K/UL (150-450) Mean Platelet Volume 5.8 FL (6.5-10.1) L Neutrophils (%) (Auto) % (45.0-75.0) Lymphocytes (%) (Auto) % (20.0-45.0) Monocytes (%) (Auto) % (1.0-10.0) Eosinophils (%) (Auto) % (0.0-3.0) Basophils (%) (Auto) % (0.0-2.0) Urine Color Yellow Urine Appearance Cloudy Urine pH 5 (4.5-8.0) Urine Specific [place] 1.010 (1.005-1.035) Urine Protein 3+ (NEGATIVE) H Urine Glucose (UA) Negative (NEGATIVE) Urine Ketones Negative (NEGATIVE) Urine Occult Blood 4+ (NEGATIVE) H Urine Nitrite Negative (NEGATIVE) Urine Bilirubin Negative (NEGATIVE) Urine Urobilinogen Normal MG/DL (0.0-1.0) Urine Leukocyte Esterase 3+ (NEGATIVE) H Urine RBC 20-30 /HPF (0 - 0) H Urine WBC Tntc /HPF (0 - 0) H Urine Squamous Epithelial Cells None /LPF (NONE/OCC) Urine Bacteria Many /HPF (NONE) H Sodium Level 154 MMOL/L (136-145) H Potassium Level 5.6 MMOL/L (3.5-5.1) H Chloride Level 116 MMOL/L (98-107) H Carbon Dioxide Level 32 MMOL/L (21-32) Anion Gap 6 mmol/L (5-15) Blood Urea Nitrogen 117 mg/dL (7-18) H Creatinine 2.9 MG/DL (0.55-1.30) H Estimat Glomerular Filtration Rate mL/min (>60) Glucose Level 162 MG/DL (74-106) H Lactic Acid Level 1.90 mmol/L (0.4-2.0) Calcium Level 9.5 MG/DL (8.5-10.1) Total Bilirubin 0.2 MG/DL (0.2-1.0) Aspartate Amino Transf (AST/SGOT) 245 U/L (15-37) H Alanine Aminotransferase (ALT/SGPT) 272 U/L (12-78) H Alkaline Phosphatase 163 U/L (46-116) H Total Creatine Kinase 146 U/L (26-308) Creatine Kinase MB 2.5 NG/ML (0.0-3.6) Creatine Kinase MB Relative Index 1.7 Troponin I 0.138 ng/mL (0.000-0.056) Pro-B-Type Natriuretic Peptide 1645 pg/mL (0-125) H Total Protein 9.8 G/DL (6.4-8.2) H Albumin 2.0 G/DL (3.4-5.0) L Globulin 7.8 g/dL Albumin/Globulin Ratio 0.3 (1.0-2.7) L Lipase 857 U/L (73-393) H Arterial Blood pH 7.387 (7.350-7.450) Arterial Blood Partial Pressure CO2 55.4 mmHg (35.0-45.0) *H Arterial Blood Partial Pressure O2 52.5 mmHg (75.0-100.0) L Arterial Blood HCO3 32.6 mmol/L (22.0-26.0) H Arterial Blood Oxygen Saturation 87.4 % (92.0-98.0) L Arterial Blood Base Excess 6.1 Librado Test Positive Height (Feet): 6 Height (Inches): 2.00 Weight (Pounds): 210 Medications Current Medications Medications (Trade) Dose Ordered Sig/Keira Route PRN Reason Start Time Stop Time Status Last Admin Dose Admin Acetaminophen (Tylenol) 650 mg Q4H PRN GT Mild Pain/Temp > 100.5 10/20/17 08:21 11/19/17 08:20 Al Hydroxide/Mg Hydroxide (Mylanta II) 30 ml Q6H PRN GT dyspepsia 10/20/17 08:21 11/19/17 08:20 Albuterol/ Ipratropium (Albuterol/ Ipratropium) 3 ml Q4H PRN HHN Shortness of Breath 10/20/17 06:30 10/25/17 06:29 Amlodipine Besylate (Norvasc) 5 mg BID GT 10/20/17 09:00 11/19/17 08:59 10/20/17 09:21 Carvedilol (Coreg) 25 mg EVERY 12 HOURS GT 10/20/17 09:00 11/19/17 08:59 10/20/17 09:20 Cefepime HCl 0.5 gm/Dextrose 110 ml @ 220 mls/hr Q24H IV 10/20/17 09:30 10/27/17 09:29 10/20/17 09:25 Heparin Sodium (Porcine) (Heparin 5000 units/ml) 5,000 units EVERY 12 HOURS SUBQ 10/20/17 09:00 11/19/17 08:59 10/20/17 09:19 Nitroglycerin (Ntg) 0.4 mg Q5M PRN SL Prn Chest Pain 10/20/17 06:30 11/19/17 06:29 Ondansetron HCl (Zofran) 4 mg Q6H PRN IVP Nausea & Vomiting 10/20/17 06:30 11/19/17 06:29 Polyethylene Glycol (Miralax) 17 gm DAILYPRN PRN GT Constipation 10/20/17 08:21 11/19/17 08:20 Promethazine HCl/ Codeine (Phenergan with Codeine) 5 ml Q4H PRN GT For Cough 10/20/17 08:21 11/19/17 08:20 Quetiapine Fumarate (SEROquel) 12.5 mg DAILY GT 10/20/17 09:00 11/19/17 08:59 10/20/17 09:19 Temazepam (Restoril) 15 mg HSPRN PRN GT Insomnia 10/20/17 21:00 10/27/17 20:59 Vancomycin HCl (Vanco rx to dose) 1 ea DAILY PRN MISC Per rx protocol 10/20/17 06:30 11/19/17 06:29 Assessment/Plan Assessment/Plan Abx: IV Vanco 10/20- Cefepime 10/20- Ceftriaxone x1 10/20 Assessment: Severe Sepsis- likely 2ry to UTI, pancreatitis- r/o bacteremia -u/a wbc tnct, nit neg, leuk +3; ucx p -Bcx p -CXR: No definite acute process. Bilateral basilar atelectasis and/or scarring -lipase ~800 PAN Elevated LFTs Recent Septic shock 2ry to PNA, UTI 09/2017 -Bacteremia with Staph capitis/ contamination -Pneumonia with MDR Acinetobacter (S Tigecycicline, minocycline, Colistin/ polymixin B) & ESBL Proteus -UTI with ESBL Proteus CVA w/ R hemiplegia seizure disorder PUD Dementia renal insufficiency DM bed bound CAD s/p 3v CABG HTN GERD dysphagia s/p GT DNR/DNI NKDA Plan: -Continue empiric IV Vancomycin #1 and switch Cefepime to Meropenem #1 given prior hx to ESBL -s/p Tygacil>Minocycline/INH Colistin course 09/2017 -f/u cx -Monitor CBC/BMP, temperatures -Trend WBC, LFTs -Cdiff if diarrhea -aspiration precautions -PEG care -wound care/prevention per hospital protocol Thank you for this consultation. Will continue to follow along with you. Discussed with RN and daughter at bedside. Skyla Cullen M.D. Oct 20, 2017 14:52
[2017-10-20] MEDS: Meropenem 1 GM in NS 55 ML IVPB SCH (15:36)
--- NOTE | 2017-10-20 22:59 | Consultation ---
History of Present Illness General Date patient seen: Oct 20, 2017 Chief Complaint: Dyspnea/Respdistress Present Illness HPI 87 y/o male with hx of CVA with right hemiplegia, seizure disorder, PUD, Dementia, renal insufficiency, DM,CAD s/p 3v CABG, HTN, GERD, dysphagia s/p GT presents to ED on 10/20. The pt's daughter was next to bed. the pt was asleep however per daughter the pt agitated at times. the memory is impaired. Allergies: Coded Allergies: No Known Allergies (Verified , 01/02/09) Medication History Scheduled Acetaminophen (Acetaminophen), 650 MG GT EVERY 4 HOURS, (Reported) Amino Acids/Protein Hydrolys (Pro-Stat Liquid), 30 ML GT DAILY, (Reported) Amlodipine Besylate (Norvasc), 5 MG ORAL BID, (Reported) Amlodipine Besylate* (Amlodipine Besylate*), 10 MG GT DAILY, (Reported) Arginine/Ascorbate Sod/Romina AC (Arginaid Powder), 1 EACH PO BID, (Reported) Ascorbic Acid* (Vitamin C*), 500 MG GT DAILY, (Reported) Ascorbic Acid* (Vitamin C*), 500 MG GT DAILY, (Reported) Aspirin* (Aspirin*), 81 MG GT DAILY, (Reported) Atorvastatin Calcium* (Atorvastatin Calcium*), 80 MG GT BEDTIME, (Reported) Bacitracin Zinc (Bacitracin Zinc), 1 APPLIC TP THREE TIMES A DAY, (Reported) Carvedilol (Coreg), 25 MG GT EVERY 12 HOURS, (Reported) Chlorhexidine Gluconate (Chlorhexidine Gluconate), 2,000 ML MC DAILY, (Reported) Clonidine Hcl* (Catapres*), 0.1 MG GT DAILY, (Reported) Clopidogrel Bisulfate* (Plavix*), 75 MG GT DAILY, (Reported) Docusate Sodium* (Colace*), 100 MG GT DAILY, (Reported) Enoxaparin* (Lovenox*), 40 MG SUBQ DAILY, (Reported) Epoetin Sathish (Epogen), 7,000 UNIT SUBQ 3XW, (Reported) Famotidine (Famotidine), 20 MG ORAL TWICE A DAY, (Reported) Finasteride* (Proscar*), 5 MG GT DAILY, (Reported) Gel Base No.41 (Hydrogel), 1 APPLIC TOPIC DAILY, (Reported) Heparin Sod (Porcine) (Heparin Sodium*), 5,000 UNITS SUBQ EVERY 12 HOURS, ( Reported) Hydralazine HCl (Hydralazine HCl), 25 MG GT Q8HR, (Reported) Hydralazine Hcl (Hydralazine Hcl), 20 MG GT Q6HR, (Reported) Hydralazine Hcl* (Hydralazine Hcl*), 50 MG GT Q8HR Insulin Aspart* (Novolog*), 0 SUBQ Q6HR, (Reported) Lisinopril* (Lisinopril*), 40 MG GT DAILY, (Reported) Lorazepam (Lorazepam), 1 MG IV Q4H, (Reported) Metoprolol Tartrate (Metoprolol Tartrate), 12.5 MG GT Q12HR Metoprolol Tartrate* (Metoprolol Tartrate*), 25 MG GT EVERY 12 HOURS, (Reported) Multivitamin With Minerals (Multivitamins With Minerals*), 1 TAB GT DAILY, ( Reported) Pantoprazole* (Protonix*), 40 MG IVP EVERY 12 HOURS, (Reported) Quetiapine Fumarate* (Seroquel*), 12.5 MG ORAL DAILY, (Reported) Ranitidine Hcl* (Zantac*), 150 MG ORAL TWICE A DAY, (Reported) Tamsulosin HCl (Flomax), 0.8 MG GT DAILY, (Reported) Vitamin A & D (Vitamin A & D Ointment), 1 APPLIC TOPIC DAILY, (Reported) Zinc Sulfate (Zinc Sulfate*), 220 MG GT DAILY, (Reported) Scheduled PRN Bisacodyl* (Dulcolax*), 10 MG RECTAL ONCE PRN for Constipation, (Reported) Diphenhydramine Hcl* (Benadryl*), 25 MG ORAL Q8HR PRN for Itching, (Reported) Ipratropium [place] 0.5MG/2.5ML (Ipratropium [place] 0.5MG/2.5ML), 0.5 MG HHN Q4HR PRN for Shortness of Breath, (Reported) Ipratropium/Albuterol Sulfate (DuoNeb 0.5-3(2.5)mg/3ml), 3 ML HHN EVERY 4 HOURS PRN for Shortness of Breath, (Reported) Ondansetron* (Zofran*), 4 MG IV Q6H PRN for Nausea & Vomiting, (Reported) Ondansetron* (Zofran*), 4 MG GT Q6H PRN for Nausea & Vomiting, (Reported) Polyethylene Glycol 3350* (Miralax*), 17 GM ORAL DAILY PRN for Constipation, ( Reported) Potassium Chloride (Potassium Chloride), 20 MEQ ORAL DAILY PRN for Abdominal cramps, (Reported) Miscellaneous Medications Loperamide Hcl (Imodium A-D), 2 MG PO, (Reported) [d5w 50c 3d] Patient History Limited by: medical condition History Provided By: Patient, Family Member, PMD Healthcare decision maker Resuscitation status Do Not Resuscitate Advanced Directive on File Past Medical/Surgical History Past Medical/Surgical History: (1) Hydronephrosis of left kidney (2) G-tube site cellulitis (3) Ventilator dependent (4) Hypotension (5) Acute encephalopathy (6) HCAP (healthcare-associated pneumonia) (7) recent L MCA ischemic stroke (8) ATN (acute tubular necrosis) (9) Anemia (10) Transaminitis (11) Bacterial infection due to Staphylococcus (12) Diarrhea (13) Pneumonia (14) Encephalopathy due to infection (15) DNR (do not resuscitate) (16) Elevated troponin (17) UTI (urinary tract infection) (18) Decubital ulcer (19) Respiratory distress (20) Diabetes mellitus (21) Feeding by G-tube (22) Acute respiratory failure (23) Sepsis (24) s/p multiple lacunar strokes, old Review of Systems Psychiatric: Reports: prior hx, depressed feelings Physical Exam General Appearance: no apparent distress, lethargic, confused, agitated Last 24 Hour Vital Signs Date Time Temp Pulse Resp B/P (MAP) Pulse Ox O2 Delivery O2 Flow Rate FiO2 10/20/17 21:27 71 39 98 Full Face 50 10/20/17 21:11 81 154/52 10/20/17 20:00 98.6 81 44 154/52 99 Bi-pap 50 98.6 10/20/17 20:00 79 10/20/17 20:00 50 10/20/17 19:14 78 32 98 Full Face 50 10/20/17 17:45 80 91/68 10/20/17 16:51 80 36 98 Full Face 50 10/20/17 16:00 50 10/20/17 16:00 98.8 81 31 91/68 99 Bi-pap 50 98.8 10/20/17 16:00 80 10/20/17 14:45 81 42 97 Full Face 50 10/20/17 12:33 79 36 99 Full Face 50 10/20/17 12:00 50 10/20/17 12:00 99.4 97 43 113/74 97 Bi-pap 50 99.4 10/20/17 12:00 80 10/20/17 12:00 99.4 97 43 113/74 97 Bi-pap 50 99.4 10/20/17 10:58 82 37 95 Full Face 50 10/20/17 09:22 80 40 95 Full Face 50 10/20/17 09:21 97 113/74 10/20/17 09:20 97 113/74 10/20/17 08:00 99.4 97 43 113/74 97 Bi-pap 50 99.4 10/20/17 08:00 98 10/20/17 08:00 50 10/20/17 07:11 102 46 98 Facial 50 10/20/17 06:02 97.7 109 38 85/57 96 Bi-pap 14.0 50 97.7 10/20/17 05:29 125 39 98 Facial 50 10/20/17 05:00 112 42 120/71 99 Bi-pap 14.0 50 10/20/17 05:00 97.5 112 42 120/71 99 Bi-pap 14.0 50 97.5 10/20/17 04:17 116 39 Bi-pap 50 10/20/17 04:17 116 39 96 Facial 50 10/20/17 03:10 107 32 93/71 100 Non-Rebreather 15.0 10/20/17 03:10 112 20 Non-Rebreather 15.0 10/20/17 02:47 97.5 112 20 137/82 97 Non-Rebreather 97.5 Intake and Output 10/19/17 10/20/17 19:00 07:00 Intake Total 0 ml Output Total 400 ml Balance -400 ml Intake Oral 0 ml Output Urine Total 400 ml Laboratory Tests Test 10/20/17 03:33 10/20/17 03:43 White Blood Count 19.0 K/UL (4.8-10.8) H Red Blood Count 5.04 M/UL (4.70-6.10) Hemoglobin 12.7 G/DL (14.2-18.0) L Hematocrit 42.7 % (42.0-52.0) Mean Corpuscular Volume 85 FL (80-99) Mean Corpuscular Hemoglobin 25.2 PG (27.0-31.0) L Mean Corpuscular Hemoglobin Concent 29.7 G/DL (32.0-36.0) L Red Cell Distribution Width 16.9 % (11.6-14.8) H Platelet Count 445 K/UL (150-450) Mean Platelet Volume 5.8 FL (6.5-10.1) L Neutrophils (%) (Auto) % (45.0-75.0) Lymphocytes (%) (Auto) % (20.0-45.0) Monocytes (%) (Auto) % (1.0-10.0) Eosinophils (%) (Auto) % (0.0-3.0) Basophils (%) (Auto) % (0.0-2.0) Urine Color Yellow Urine Appearance Cloudy Urine pH 5 (4.5-8.0) Urine Specific [place] 1.010 (1.005-1.035) Urine Protein 3+ (NEGATIVE) H Urine Glucose (UA) Negative (NEGATIVE) Urine Ketones Negative (NEGATIVE) Urine Occult Blood 4+ (NEGATIVE) H Urine Nitrite Negative (NEGATIVE) Urine Bilirubin Negative (NEGATIVE) Urine Urobilinogen Normal MG/DL (0.0-1.0) Urine Leukocyte Esterase 3+ (NEGATIVE) H Urine RBC 20-30 /HPF (0 - 0) H Urine WBC Tntc /HPF (0 - 0) H Urine Squamous Epithelial Cells None /LPF (NONE/OCC) Urine Bacteria Many /HPF (NONE) H Sodium Level 154 MMOL/L (136-145) H Potassium Level 5.6 MMOL/L (3.5-5.1) H Chloride Level 116 MMOL/L (98-107) H Carbon Dioxide Level 32 MMOL/L (21-32) Anion Gap 6 mmol/L (5-15) Blood Urea Nitrogen 117 mg/dL (7-18) H Creatinine 2.9 MG/DL (0.55-1.30) H Estimat Glomerular Filtration Rate mL/min (>60) Glucose Level 162 MG/DL (74-106) H Lactic Acid Level 1.90 mmol/L (0.4-2.0) Calcium Level 9.5 MG/DL (8.5-10.1) Total Bilirubin 0.2 MG/DL (0.2-1.0) Aspartate Amino Transf (AST/SGOT) 245 U/L (15-37) H Alanine Aminotransferase (ALT/SGPT) 272 U/L (12-78) H Alkaline Phosphatase 163 U/L (46-116) H Total Creatine Kinase 146 U/L (26-308) Creatine Kinase MB 2.5 NG/ML (0.0-3.6) Creatine Kinase MB Relative Index 1.7 Troponin I 0.138 ng/mL (0.000-0.056) Pro-B-Type Natriuretic Peptide 1645 pg/mL (0-125) H Total Protein 9.8 G/DL (6.4-8.2) H Albumin 2.0 G/DL (3.4-5.0) L Globulin 7.8 g/dL Albumin/Globulin Ratio 0.3 (1.0-2.7) L Lipase 857 U/L (73-393) H Arterial Blood pH 7.387 (7.350-7.450) Arterial Blood Partial Pressure CO2 55.4 mmHg (35.0-45.0) *H Arterial Blood Partial Pressure O2 52.5 mmHg (75.0-100.0) L Arterial Blood HCO3 32.6 mmol/L (22.0-26.0) H Arterial Blood Oxygen Saturation 87.4 % (92.0-98.0) L Arterial Blood Base Excess 6.1 Librado Test Positive Height (Feet): 6 Height (Inches): 2.00 Weight (Pounds): 210 Medications Current Medications Medications (Trade) Dose Ordered Sig/Keira Route PRN Reason Start Time Stop Time Status Last Admin Dose Admin Acetaminophen (Tylenol) 650 mg Q4H PRN GT Mild Pain/Temp > 100.5 10/20/17 08:21 11/19/17 08:20 Al Hydroxide/Mg Hydroxide (Mylanta II) 30 ml Q6H PRN GT dyspepsia 10/20/17 08:21 11/19/17 08:20 Albuterol/ Ipratropium (Albuterol/ Ipratropium) 3 ml Q4H PRN HHN Shortness of Breath 10/20/17 06:30 10/25/17 06:29 Amlodipine Besylate (Norvasc) 5 mg BID GT 10/20/17 09:00 11/19/17 08:59 10/20/17 09:21 Carvedilol (Coreg) 25 mg EVERY 12 HOURS GT 10/20/17 09:00 11/19/17 08:59 10/20/17 21:11 Heparin Sodium (Porcine) (Heparin 5000 units/ml) 5,000 units EVERY 12 HOURS SUBQ 10/20/17 09:00 11/19/17 08:59 10/20/17 21:12 Meropenem 1 gm/ Sodium Chloride 55 ml @ 110 mls/hr Q12H IVPB 10/20/17 16:00 10/25/17 15:59 10/20/17 15:36 Nitroglycerin (Ntg) 0.4 mg Q5M PRN SL Prn Chest Pain 10/20/17 06:30 11/19/17 06:29 Ondansetron HCl (Zofran) 4 mg Q6H PRN IVP Nausea & Vomiting 10/20/17 06:30 11/19/17 06:29 Polyethylene Glycol (Miralax) 17 gm DAILYPRN PRN GT Constipation 10/20/17 08:21 11/19/17 08:20 Promethazine HCl/ Codeine (Phenergan with Codeine) 5 ml Q4H PRN GT For Cough 10/20/17 08:21 11/19/17 08:20 Quetiapine Fumarate (SEROquel) 12.5 mg DAILY GT 10/20/17 09:00 11/19/17 08:59 10/20/17 09:19 Temazepam (Restoril) 15 mg HSPRN PRN GT Insomnia 10/20/17 21:00 10/27/17 20:59 Vancomycin HCl (Vanco rx to dose) 1 ea DAILY PRN MISC Per rx protocol 10/20/17 06:30 11/19/17 06:29 Assessment/Plan Status: stable Assessment/Plan encephalopathy agitation dementia -Seroquel 12.5 mg q 6hr prn -dc Seroquel 12.5mg Juventino Dowd M.D. Oct 20, 2017 22:59
[2017-10-21] VITALS: BP 142/59
--- NOTE | 2017-10-21 | Consultation ---
DATE OF CONSULTATION: 10/20/2017 CONSULTING PHYSICIAN: Cesario Brewster M.D. REFERRING PHYSICIAN: Dhiraj Holly M.D. Thank you Dr. Dhiraj Holly for the request of this consultation. HISTORY OF PRESENT ILLNESS: This is an 87-year-old, gentleman, who is well known to me and he is under my care at the retirement facility with a history of CVA and right hemiparesis; dementia; dysphagia, status post gastrostomy; chronic kidney disease stage 3; diabetes; and bed-bound with functional quadriplegia with a recent hospitalization at [facility] with pneumonia and intubation. The patient was subsequently extubated and transferred to the [facility]. The patient was sent back for evaluation of fever and shortness of breath and desaturation. The patient was found to be in a respiratory failure. In the emergency room, the patient code status is Do Not Intubate. The patient was placed on the BiPAP and started on the broad-spectrum antibiotic after the patient was found to have urinary tract infection and the patient was admitted to [facility]. The patient cannot give any information and all the information was gathered through the chart. The patient is aphasic at the present time. PAST MEDICAL HISTORY: As above. He has history of decubital ulcers. Diabetes. PAST SURGICAL HISTORY: Gastrostomy tube placement. MEDICATIONS: At the [facility], please refer to medication reconciliation. I have reviewed at length. ALLERGIES: No known drug allergies. FAMILY HISTORY: Noncontributory. SOCIAL HISTORY: The patient resides in a retirement facility in the [place]. The patient has a daughter who is the next of kin and many other children. No smoking at the present time. No alcohol. No illicit drug use. REVIEW OF SYSTEMS: Cannot be obtained because of the underlying illness. PHYSICAL EXAMINATION: GENERAL: The patient is on BiPAP, cannot give any information, and responds to pain stimuli. VITAL SIGNS: Blood pressure 113/74, pulse 97, O2 saturation is 97%, and temperature 99.4% degrees Fahrenheit. HEENT: Eyes are anicteric. No JVD. CARDIAC: S1 and S2. Tachycardic. A 2/6 systolic murmur at the left sternal border. LUNGS: Bilateral coarse rhonchi. ABDOMEN: Soft, nontender, and nondistended. No guarding. No rebound. A gastrostomy tube is intact. NEUROLOGIC: The patient does not follow any commands. Aphasic. The patient has a chronic right complete hemiparesis. GENITOURINARY: Within normal. LABORATORY DATA: On admission, white count 19,000, hemoglobin of 12.7, hematocrit 42.7, and platelets are 445,000. Glucose 152. Lactate 1.9. Calcium 9.5. Total bilirubin 0.2. AST 245, ALT 272, and alkaline phosphatase 153. Troponin 0.138. Albumin 2. Lipase 857. Blood gas with a pH of 7.387, pCO2 55.4, pO2 52.5, bicarbonate 32.6, and O2 saturation 87.4%. Sodium 154, potassium 5.6, chloride 116, bicarb 32, BUN 117, and creatinine 2.9. IMAGING DATA: Chest x-ray dated 10/20/2017 revealed no acute process, bilateral basilar atelectasis, and/or scarring. EKG, sinus tachycardia, nonspecific ST changes. IMPRESSION: 1. Acute respiratory failure. 2. Sepsis on admission. 3. Urinary tract infection. 4. Decubitus ulcer. 5. Elevated troponin. 6. History of diabetes. 7. 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 8. Acute toxic and metabolic encephalopathy. 9. Acute on chronic kidney disease stage 3. 10. History of hypertension. 11. Functional quadriplegia. 12. Severe protein-calorie malnutrition. 13. Gait impairment and bed-bound status. 14. History of seizure. 15. Dehydration. 16. Hypernatremia. 17. Hyperkalemia. PLAN: 1. Monitor in [facility] unit. 2. Continue with BiPAP machine. 3. IV antibiotics. 4. Trend creatinine. 5. We will check the cultures and adjust antibiotics accordingly. 6. Renal and ID consult. 7. We will follow the electrolytes correctly and replete as indicated. 8. Aspiration precaution. 9. Hold feeding while the patient is NPO. 10. Further recommendations to follow pending the patient's response to above measures. 11. Discharge planning back to retirement facility depending on the course of his hospitalization. 12. The patient's code status is DNR/DNI. 13. Case was discussed with Dr. Holly. 14. Time spent on evaluation and additional care is 75 minutes. Cesario D Vane Brewster DR: BÁRBARA JOB#: [id number] CC: SHIRA
[2017-10-21] MEDS: Meropenem 1 GM in NS 55 ML IVPB SCH ×2 (03:30→16:23)
[2017-10-21 04:00] VITALS: BP 106/62
[2017-10-21 05:03] LABS: BASOPHILS % (AUTO) 0.5 % (0.0-2.0); EOSINOPHILS % (AUTO) 1.2 % (0.0-3.0); HEMATOCRIT 32.1 % (42.0-52.0); HEMOGLOBIN 9.8 G/DL (14.2-18.0); LYMPHOCYTES % (AUTO) 18.2 % (20.0-45.0); MEAN CORPUSCULAR VOLUME 86 FL (80-99); MONOCYTES % (AUTO) 4.1 % (1.0-10.0); PLATELET COUNT 336 K/UL (150-450); RED BLOOD COUNT 3.73 M/UL (4.70-6.10); RED CELL DISTRIBUTION WIDTH 17.1 % (11.6-14.8); WHITE BLOOD COUNT 17.3 K/UL (4.8-10.8)
[2017-10-21 05:29] LABS: ALANINE AMINOTRANSFERASE 232 U/L (12-78); ALBUMIN 1.7 G/DL (3.4-5.0); ALBUMIN/GLOBULIN RATIO 0.2 (1.0-2.7); ALKALINE PHOSPHATASE 134 U/L (46-116); ANION GAP 11 mmol/L (5-15); ASPARTATE AMINO TRANSFERASE 208 U/L (15-37); BILIRUBIN,TOTAL 0.3 MG/DL (0.2-1.0); BLOOD UREA NITROGEN 139 mg/dL (7-18); CALCIUM 9.3 MG/DL (8.5-10.1); CARBON DIOXIDE 27 MMOL/L (21-32); CHLORIDE 117 MMOL/L (98-107); PHOSPHORUS 4.4 MG/DL (2.5-4.9)
[2017-10-21 06:11] LABS: SODIUM 155 MMOL/L (136-145)
[2017-10-21 06:22] LABS: POTASSIUM 6.1 MMOL/L (3.5-5.1)
[2017-10-21] MEDS ORDERED: Sodium Polystyrene Sulfonate 15gm Powder ORAL ONE (06:45)
[2017-10-21 08:00] VITALS: BP 102/59
[2017-10-21] MEDS: Carvedilol 25mg Tab GT SCH (08:50)
[2017-10-21] MEDS: Heparin 5000 units/ml inj SUBQ SCH ×2 (08:52→20:51)
--- NOTE | 2017-10-21 11:07 | Diagnostic Imaging Report ---
Indication: Dyspnea Technique: One view of the chest Comparison: 10/20/2017 Findings: There is again demonstrated atelectasis or scarring at both lung bases. Lungs and pleural spaces are otherwise clear. The heart size is normal. The aorta is tortuous and calcified. There are median sternotomy sutures. Impression: Unchanged, over one day, findings as above.
--- NOTE | 2017-10-21 11:49 | Infectious Diseases Prog Note ---
Assessment/Plan Assessment/Plan Assessment: Severe Sepsis- likely 2ry to UTI, pancreatitis- r/o bacteremia -u/a wbc tnct, nit neg, leuk +3; ucx >100K GNR -Bcx NTD -CXR: No definite acute process. Bilateral basilar atelectasis and/or scarring -lipase ~800> 400s -sp cx p Hypothermia/leukocytosis PAN, worsening, now hyperkalemia Elevated LFTs, improving Recent Septic shock 2ry to PNA, UTI 09/2017 -Bacteremia with Staph capitis/ contamination -Pneumonia with MDR Acinetobacter (S Tigecycicline, minocycline, Colistin/ polymixin B) & ESBL Proteus -UTI with ESBL Proteus CVA w/ R hemiplegia seizure disorder PUD Dementia renal insufficiency DM bed bound CAD s/p 3v CABG HTN GERD dysphagia s/p GT DNR/DNI NKDA Plan: -Continue empiric IV Vancomycin #2 and Meropenem #2 given prior hx to ESBL -/ SP IV Cefepime #1, Ceftriaxone x1 -s/p Tygacil>Minocycline/INH Colistin course 09/2017 -f/u cx -Monitor CBC/BMP, temperatures -Trend WBC, LFTs -Cdiff if diarrhea -aspiration precautions -PEG care -wound care/prevention per hospital protocol -low threshold for CT abd/p Thank you for this consultation. Will continue to follow along with you. Discussed with RN and daughter at bedside. Subjective Allergies: Coded Allergies: No Known Allergies (Verified , 01/02/09) Subjective Tmin 95.9 WBC and LFTs slightly improve CR worsening, hyperK Bcx NTD uCx GNR Objective Vital Signs Last 24 Hour Vital Signs Date Time Temp Pulse Resp B/P (MAP) Pulse Ox O2 Delivery O2 Flow Rate FiO2 10/21/17 09:29 69 18 99 8.0 40 10/21/17 08:57 69 102/59 10/21/17 08:50 69 102/59 10/21/17 08:00 95.9 69 39 102/59 100 Bi-pap 50 95.9 10/21/17 08:00 50 10/21/17 07:55 71 20 98 Facial 50 10/21/17 07:52 69 10/21/17 04:48 80 38 98 Facial 50 10/21/17 04:00 50 10/21/17 04:00 73 10/21/17 04:00 98.1 70 32 106/62 100 Bi-pap 50 98.1 10/21/17 02:32 81 42 96 Facial 50 10/21/17 01:02 77 38 97 Full Face 50 10/21/17 00:00 98.6 71 24 142/59 100 Bi-pap 50 98.6 10/20/17 23:35 70 10/20/17 23:16 82 36 97 Full Face 50 10/20/17 21:27 71 39 98 Full Face 50 10/20/17 21:11 81 154/52 10/20/17 20:00 98.6 81 44 154/52 99 Bi-pap 50 98.6 10/20/17 20:00 79 10/20/17 20:00 50 10/20/17 19:14 78 32 98 Full Face 50 10/20/17 17:45 80 91/68 10/20/17 16:51 80 36 98 Full Face 50 10/20/17 16:00 50 10/20/17 16:00 98.8 81 31 91/68 99 Bi-pap 50 98.8 10/20/17 16:00 80 10/20/17 14:45 81 42 97 Full Face 50 10/20/17 12:33 79 36 99 Full Face 50 10/20/17 12:00 50 10/20/17 12:00 99.4 97 43 113/74 97 Bi-pap 50 99.4 10/20/17 12:00 80 10/20/17 12:00 99.4 97 43 113/74 97 Bi-pap 50 99.4 Height (Feet): 6 Height (Inches): 2.00 Weight (Pounds): 210 Objective General Appearance: WD/WN Lines, tubes and drains: peripheral HEENT: normocephalic, atraumatic Neck: non-tender, normal alignment Respiratory/Chest: chest wall non-tender, lungs clear Cardiovascular/Chest: normal peripheral pulses Abdomen: normal bowel sounds, non tender Extremities: no rash, cellulitis Microbiology Date/Time Source Procedure Growth Status 10/20/17 03:15 Blood Blood Culture - Preliminary NO GROWTH AFTER 24 HOURS Resulted 10/20/17 03:00 Blood Blood Culture - Preliminary NO GROWTH AFTER 24 HOURS Resulted 10/20/17 10:40 Sputum Gram Stain - Final Resulted 10/20/17 10:40 Sputum Sputum Culture Pending Resulted 10/20/17 03:33 Urine,Clean Catch Urine Culture - Preliminary Gram Negative Bacillus 1 Resulted Laboratory Tests Test 10/21/17 04:05 White Blood Count 17.3 K/UL (4.8-10.8) H Red Blood Count 3.73 M/UL (4.70-6.10) L Hemoglobin 9.8 G/DL (14.2-18.0) L Hematocrit 32.1 % (42.0-52.0) L Mean Corpuscular Volume 86 FL (80-99) Mean Corpuscular Hemoglobin 26.2 PG (27.0-31.0) L Mean Corpuscular Hemoglobin Concent 30.4 G/DL (32.0-36.0) L Red Cell Distribution Width 17.1 % (11.6-14.8) H Platelet Count 336 K/UL (150-450) Mean Platelet Volume 6.0 FL (6.5-10.1) L Neutrophils (%) (Auto) 76.0 % (45.0-75.0) H Lymphocytes (%) (Auto) 18.2 % (20.0-45.0) L Monocytes (%) (Auto) 4.1 % (1.0-10.0) Eosinophils (%) (Auto) 1.2 % (0.0-3.0) Basophils (%) (Auto) 0.5 % (0.0-2.0) Sodium Level 155 MMOL/L (136-145) H Potassium Level 6.1 MMOL/L (3.5-5.1) *H Chloride Level 117 MMOL/L (98-107) H Carbon Dioxide Level 27 MMOL/L (21-32) Anion Gap 11 mmol/L (5-15) Blood Urea Nitrogen 139 mg/dL (7-18) H Creatinine 4.0 MG/DL (0.55-1.30) H Estimat Glomerular Filtration Rate mL/min (>60) Glucose Level 162 MG/DL (74-106) H Calcium Level 9.3 MG/DL (8.5-10.1) Phosphorus Level 4.4 MG/DL (2.5-4.9) Total Bilirubin 0.3 MG/DL (0.2-1.0) Aspartate Amino Transf (AST/SGOT) 208 U/L (15-37) H Alanine Aminotransferase (ALT/SGPT) 232 U/L (12-78) H Alkaline Phosphatase 134 U/L (46-116) H Pro-B-Type Natriuretic Peptide 2721 pg/mL (0-125) H Total Protein 8.6 G/DL (6.4-8.2) H Albumin 1.7 G/DL (3.4-5.0) L Globulin 6.9 g/dL Albumin/Globulin Ratio 0.2 (1.0-2.7) L Lipase 490 U/L (73-393) H Current Medications Medications (Trade) Dose Ordered Sig/Keira Route PRN Reason Start Time Stop Time Status Last Admin Dose Admin Acetaminophen (Tylenol) 650 mg Q4H PRN GT Mild Pain/Temp > 100.5 10/20/17 08:21 11/19/17 08:20 Al Hydroxide/Mg Hydroxide (Mylanta II) 30 ml Q6H PRN GT dyspepsia 10/20/17 08:21 11/19/17 08:20 Albuterol/ Ipratropium (Albuterol/ Ipratropium) 3 ml Q4H PRN HHN Shortness of Breath 10/20/17 06:30 10/25/17 06:29 Amlodipine Besylate (Norvasc) 5 mg BID GT 10/20/17 09:00 11/19/17 08:59 10/20/17 09:21 Carvedilol (Coreg) 25 mg EVERY 12 HOURS GT 10/20/17 09:00 11/19/17 08:59 10/21/17 08:50 Dextrose 1,000 ml @ 100 mls/hr Q10H IV 10/21/17 08:30 11/20/17 08:29 10/21/17 08:49 Heparin Sodium (Porcine) (Heparin 5000 units/ml) 5,000 units EVERY 12 HOURS SUBQ 10/20/17 09:00 11/19/17 08:59 10/21/17 08:52 Meropenem 1 gm/ Sodium Chloride 55 ml @ 110 mls/hr Q12H IVPB 10/20/17 16:00 10/25/17 15:59 10/21/17 03:30 Nitroglycerin (Ntg) 0.4 mg Q5M PRN SL Prn Chest Pain 10/20/17 06:30 11/19/17 06:29 Ondansetron HCl (Zofran) 4 mg Q6H PRN IVP Nausea & Vomiting 10/20/17 06:30 11/19/17 06:29 Polyethylene Glycol (Miralax) 17 gm DAILYPRN PRN GT Constipation 10/20/17 08:21 11/19/17 08:20 Promethazine HCl/ Codeine (Phenergan with Codeine) 5 ml Q4H PRN GT For Cough 10/20/17 08:21 11/19/17 08:20 Quetiapine Fumarate (SEROquel) 12.5 mg EVERY 6 HOURS PRN GT agitation 10/20/17 23:15 11/19/17 23:14 Temazepam (Restoril) 15 mg HSPRN PRN GT Insomnia 10/20/17 21:00 10/27/17 20:59 Vancomycin HCl (Vanco rx to dose) 1 ea DAILY PRN MISC Per rx protocol 10/20/17 06:30 11/19/17 06:29 Skyla Cullen M.D. Oct 21, 2017 11:49
--- NOTE | 2017-10-21 11:50 | Pulmonology Progress Note ---
Assessment/Plan Problems: (1) Acute respiratory failure (2) Sepsis (3) UTI (urinary tract infection) (4) Decubital ulcer (5) s/p multiple lacunar strokes, old (6) Diabetes mellitus (7) DNR (do not resuscitate) (8) Feeding by G-tube Assessment/Plan titrate fio2 to sat of 92% continue abx iv fluids kayexalate for hyperkalemia sliding scale, insulin coverage wound care dvt prophylaxis. Subjective ROS Limited/Unobtainable: No Constitutional: Reports: no symptoms HEENT: Repors: no symptoms Respiratory: Reports: no symptoms Allergies: Coded Allergies: No Known Allergies (Verified , 01/02/09) Objective Last 24 Hour Vital Signs Date Time Temp Pulse Resp B/P (MAP) Pulse Ox O2 Delivery O2 Flow Rate FiO2 10/21/17 09:29 69 18 99 8.0 40 10/21/17 08:57 69 102/59 10/21/17 08:50 69 102/59 10/21/17 08:00 95.9 69 39 102/59 100 Bi-pap 50 95.9 10/21/17 08:00 50 10/21/17 07:55 71 20 98 Facial 50 10/21/17 07:52 69 10/21/17 04:48 80 38 98 Facial 50 10/21/17 04:00 50 10/21/17 04:00 73 10/21/17 04:00 98.1 70 32 106/62 100 Bi-pap 50 98.1 10/21/17 02:32 81 42 96 Facial 50 10/21/17 01:02 77 38 97 Full Face 50 10/21/17 00:00 98.6 71 24 142/59 100 Bi-pap 50 98.6 10/20/17 23:35 70 10/20/17 23:16 82 36 97 Full Face 50 10/20/17 21:27 71 39 98 Full Face 50 10/20/17 21:11 81 154/52 10/20/17 20:00 98.6 81 44 154/52 99 Bi-pap 50 98.6 10/20/17 20:00 79 10/20/17 20:00 50 10/20/17 19:14 78 32 98 Full Face 50 10/20/17 17:45 80 91/68 10/20/17 16:51 80 36 98 Full Face 50 10/20/17 16:00 50 10/20/17 16:00 98.8 81 31 91/68 99 Bi-pap 50 98.8 10/20/17 16:00 80 10/20/17 14:45 81 42 97 Full Face 50 10/20/17 12:33 79 36 99 Full Face 50 10/20/17 12:00 50 10/20/17 12:00 99.4 97 43 113/74 97 Bi-pap 50 99.4 10/20/17 12:00 80 10/20/17 12:00 99.4 97 43 113/74 97 Bi-pap 50 99.4 Intake and Output 10/20/17 10/21/17 19:00 07:00 Intake Total 665 ml 840 ml Output Total 100 ml 200 ml Balance 565 ml 640 ml Free Water 130 ml 400 ml IV Total 415 ml 55 ml Tube Feeding 120 ml 285 ml Other 100 ml Output Urine Total 100 ml 200 ml # Bowel Movements 2 Objective off BIPAP General Appearance: WD/WN HEENT: normocephalic, atraumatic Respiratory/Chest: chest wall non-tender, normal breath sounds Cardiovascular: normal peripheral pulses, normal rate Abdomen: normal bowel sounds, soft, non tender Microbiology Date/Time Source Procedure Growth Status 10/20/17 03:15 Blood Blood Culture - Preliminary NO GROWTH AFTER 24 HOURS Resulted 10/20/17 03:00 Blood Blood Culture - Preliminary NO GROWTH AFTER 24 HOURS Resulted 10/20/17 10:40 Sputum Gram Stain - Final Resulted 10/20/17 10:40 Sputum Sputum Culture Pending Resulted 10/20/17 03:33 Urine,Clean Catch Urine Culture - Preliminary Gram Negative Bacillus 1 Resulted Laboratory Tests 10/21/17 04:05: White Blood Count 17.3H, Red Blood Count 3.73L, Hemoglobin 9.8L, Hematocrit 32.1L, Mean Corpuscular Volume 86, Mean Corpuscular Hemoglobin 26.2L, Mean Corpuscular Hemoglobin Concent 30.4L, Red Cell Distribution Width 17.1H, Platelet Count 336, Mean Platelet Volume 6.0L, Neutrophils (%) (Auto) 76.0H, Lymphocytes (%) (Auto) 18.2L, Monocytes (%) (Auto) 4.1, Eosinophils (%) (Auto) 1.2, Basophils (%) (Auto) 0.5, Sodium Level 155H, Potassium Level 6.1*H, Chloride Level 117H, Carbon Dioxide Level 27, Anion Gap 11, Blood Urea Nitrogen 139H, Creatinine 4.0H, Estimat Glomerular Filtration Rate , Glucose Level 162H, Calcium Level 9.3, Phosphorus Level 4.4, Total Bilirubin 0.3, Aspartate Amino Transf (AST/SGOT) 208H, Alanine Aminotransferase (ALT/SGPT) 232H, Alkaline Phosphatase 134H, Pro-B-Type Natriuretic Peptide 2721H, Total Protein 8.6H, Albumin 1.7L, Globulin 6.9, Albumin/Globulin Ratio 0.2L, Lipase 490H Current Medications Medications (Trade) Dose Ordered Sig/Keira Route PRN Reason Start Time Stop Time Status Last Admin Dose Admin Acetaminophen (Tylenol) 650 mg Q4H PRN GT Mild Pain/Temp > 100.5 10/20/17 08:21 11/19/17 08:20 Al Hydroxide/Mg Hydroxide (Mylanta II) 30 ml Q6H PRN GT dyspepsia 10/20/17 08:21 11/19/17 08:20 Albuterol/ Ipratropium (Albuterol/ Ipratropium) 3 ml Q4H PRN HHN Shortness of Breath 10/20/17 06:30 10/25/17 06:29 Amlodipine Besylate (Norvasc) 5 mg BID GT 10/20/17 09:00 11/19/17 08:59 10/20/17 09:21 Carvedilol (Coreg) 25 mg EVERY 12 HOURS GT 10/20/17 09:00 11/19/17 08:59 10/21/17 08:50 Dextrose 1,000 ml @ 100 mls/hr Q10H IV 10/21/17 08:30 11/20/17 08:29 10/21/17 08:49 Heparin Sodium (Porcine) (Heparin 5000 units/ml) 5,000 units EVERY 12 HOURS SUBQ 10/20/17 09:00 11/19/17 08:59 10/21/17 08:52 Meropenem 1 gm/ Sodium Chloride 55 ml @ 110 mls/hr Q12H IVPB 10/20/17 16:00 10/25/17 15:59 10/21/17 03:30 Nitroglycerin (Ntg) 0.4 mg Q5M PRN SL Prn Chest Pain 10/20/17 06:30 11/19/17 06:29 Ondansetron HCl (Zofran) 4 mg Q6H PRN IVP Nausea & Vomiting 10/20/17 06:30 11/19/17 06:29 Polyethylene Glycol (Miralax) 17 gm DAILYPRN PRN GT Constipation 10/20/17 08:21 11/19/17 08:20 Promethazine HCl/ Codeine (Phenergan with Codeine) 5 ml Q4H PRN GT For Cough 10/20/17 08:21 11/19/17 08:20 Quetiapine Fumarate (SEROquel) 12.5 mg EVERY 6 HOURS PRN GT agitation 10/20/17 23:15 11/19/17 23:14 Temazepam (Restoril) 15 mg HSPRN PRN GT Insomnia 10/20/17 21:00 10/27/17 20:59 Vancomycin HCl (Vanco rx to dose) 1 ea DAILY PRN MISC Per rx protocol 10/20/17 06:30 11/19/17 06:29 Dhiraj Holly MD Oct 21, 2017 11:50
[2017-10-21 12:00] VITALS: BP 130/69
--- NOTE | 2017-10-21 14:39 | Consultation ---
Consult Note Consult Note Chief Complaint: Dyspnea/Respdistress HPI Patient presents by paramedics from nursing facility Patient presents in acute distress short of breath and hypoxic Patient has a DO NOT RESUSCITATE/DO NOT INTUBATE band on his right arm However was brought without any POLST form Patient was recently here and required airway intubation given the worsening breathing status At this time unclear the time of duration of shortness of breath Patient is nonverbal with us Appears in critical status Coded Allergies: No Known Allergies (Verified , 01/02/09) Past Medical History: No History, Except For Hx Cardiac Problems: Yes - Hyperlipidemia, NSTEMI, CABG (3 vessel) Hx Hypertension: Yes - [facility] use of anticoagulants Hx Gastrointestinal Problems: Yes - dysphagia, G-tube, PUD, GERD Hx Neurological Problems: Yes - Generalized muscle weakness, Vertigo 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, affecting right dominant side Hx Seizures: Yes seen in [facility] on BIP[facility] Examined data reviewed Assessment/Plan Acute Renal failure- ? Underlying CKD Component of dehydration, Pre renal state and Hypernatremia Acute respiratory failure, Aspiartion Pneumonia, UTI Septic H/O Multiple Strokes Anemia Elevated Troponin Hyperglycemia PEG Pulm support Hydrate- BS control avoid nephrotoxics Monitor renal parameters Hemodynamic support urine studies Per orders ROSE MARY REID Oct 21, 2017 14:39
--- NOTE | 2017-10-21 14:39 | General Progress Note ---
Assessment/Plan Status: stable Assessment/Plan encephalopathy agitation dementia -Seroquel 12.5 mg q 6hr prn -dc Seroquel 12.5mg qam Subjective Date patient seen: Oct 21, 2017 Neurologic/Psychiatric: Reports: anxiety Allergies: Coded Allergies: No Known Allergies (Verified , 01/02/09) Subjective the pt was asleep arousable no behaviors. family in room agreed to change the Seroquel Objective Last 24 Hour Vital Signs Date Time Temp Pulse Resp B/P (MAP) Pulse Ox O2 Delivery O2 Flow Rate FiO2 10/21/17 13:30 71 20 97 4.0 36 10/21/17 12:00 8.0 40 10/21/17 12:00 71 10/21/17 12:00 96.9 62 28 130/69 98 8.0 40 96.9 10/21/17 11:28 72 20 100 4.0 36 10/21/17 09:29 69 18 99 8.0 40 10/21/17 08:57 69 102/59 10/21/17 08:50 69 102/59 10/21/17 08:00 95.9 69 39 102/59 100 Bi-pap 50 95.9 10/21/17 08:00 50 10/21/17 07:55 71 20 98 Facial 50 10/21/17 07:52 69 10/21/17 04:48 80 38 98 Facial 50 10/21/17 04:00 50 10/21/17 04:00 73 10/21/17 04:00 98.1 70 32 106/62 100 Bi-pap 50 98.1 10/21/17 02:32 81 42 96 Facial 50 10/21/17 01:02 77 38 97 Full Face 50 10/21/17 00:00 98.6 71 24 142/59 100 Bi-pap 50 98.6 10/20/17 23:35 70 10/20/17 23:16 82 36 97 Full Face 50 10/20/17 21:27 71 39 98 Full Face 50 10/20/17 21:11 81 154/52 10/20/17 20:00 98.6 81 44 154/52 99 Bi-pap 50 98.6 10/20/17 20:00 79 10/20/17 20:00 50 10/20/17 19:14 78 32 98 Full Face 50 10/20/17 17:45 80 91/68 10/20/17 16:51 80 36 98 Full Face 50 10/20/17 16:00 50 10/20/17 16:00 98.8 81 31 91/68 99 Bi-pap 50 98.8 10/20/17 16:00 80 10/20/17 14:45 81 42 97 Full Face 50 Intake and Output 10/20/17 10/21/17 19:00 07:00 Intake Total 665 ml 840 ml Output Total 100 ml 200 ml Balance 565 ml 640 ml Free Water 130 ml 400 ml IV Total 415 ml 55 ml Tube Feeding 120 ml 285 ml Other 100 ml Output Urine Total 100 ml 200 ml # Bowel Movements 2 Laboratory Tests 10/21/17 04:05: White Blood Count 17.3H, Red Blood Count 3.73L, Hemoglobin 9.8L, Hematocrit 32.1L, Mean Corpuscular Volume 86, Mean Corpuscular Hemoglobin 26.2L, Mean Corpuscular Hemoglobin Concent 30.4L, Red Cell Distribution Width 17.1H, Platelet Count 336, Mean Platelet Volume 6.0L, Neutrophils (%) (Auto) 76.0H, Lymphocytes (%) (Auto) 18.2L, Monocytes (%) (Auto) 4.1, Eosinophils (%) (Auto) 1.2, Basophils (%) (Auto) 0.5, Sodium Level 155H, Potassium Level 6.1*H, Chloride Level 117H, Carbon Dioxide Level 27, Anion Gap 11, Blood Urea Nitrogen 139H, Creatinine 4.0H, Estimat Glomerular Filtration Rate , Glucose Level 162H, Calcium Level 9.3, Phosphorus Level 4.4, Total Bilirubin 0.3, Aspartate Amino Transf (AST/SGOT) 208H, Alanine Aminotransferase (ALT/SGPT) 232H, Alkaline Phosphatase 134H, Pro-B-Type Natriuretic Peptide 2721H, Total Protein 8.6H, Albumin 1.7L, Globulin 6.9, Albumin/Globulin Ratio 0.2L, Lipase 490H Height (Feet): 6 Height (Inches): 2.00 Weight (Pounds): 210 General Appearance: no apparent distress, lethargic, confused Juventino Ochoa M.D. Oct 21, 2017 14:39
[2017-10-21] MEDS ORDERED: HydrALAZINE 25mg tab GT PRN (14:45)
[2017-10-21 16:00] VITALS: BP 125/79
--- NOTE | 2017-10-21 17:19 | Internal Med Progress Note ---
Subjective Date of Service: Oct 21, 2017 Physician Name Cesario Chacon Attending Physician Dhiraj Holly MD Past Medical History no change Past Surgical History no change Current Medications Medications (Trade) Dose Ordered Sig/Keira Route PRN Reason Start Time Stop Time Status Last Admin Dose Admin Acetaminophen (Tylenol) 650 mg Q4H PRN GT Mild Pain/Temp > 100.5 10/20/17 08:21 11/19/17 08:20 Albuterol/ Ipratropium (Albuterol/ Ipratropium) 3 ml Q4H PRN HHN Shortness of Breath 10/20/17 06:30 10/25/17 06:29 Dextrose 1,000 ml @ 150 mls/hr Q6H40M IV 10/22/17 08:30 11/20/17 08:29 Docusate Sodium (Colace) 100 mg THREE TIMES A DAY GT 10/21/17 18:00 11/20/17 17:59 Heparin Sodium (Porcine) (Heparin 5000 units/ml) 5,000 units EVERY 12 HOURS SUBQ 10/20/17 09:00 11/19/17 08:59 10/21/17 08:52 Hydralazine HCl (Apresoline) 25 mg Q4H PRN GT systolic bp over 160 10/21/17 14:45 11/20/17 14:44 Meropenem 1 gm/ Sodium Chloride 55 ml @ 110 mls/hr Q12H IVPB 10/20/17 16:00 10/25/17 15:59 10/21/17 16:23 Nitroglycerin (Ntg) 0.4 mg Q5M PRN SL Prn Chest Pain 10/20/17 06:30 11/19/17 06:29 Ondansetron HCl (Zofran) 4 mg Q6H PRN IVP Nausea & Vomiting 10/20/17 06:30 11/19/17 06:29 Pantoprazole (Protonix) 40 mg EVERY 12 HOURS IVP 10/21/17 21:00 11/20/17 20:59 Polyethylene Glycol (Miralax) 17 gm DAILYPRN PRN GT Constipation 10/20/17 08:21 11/19/17 08:20 Promethazine HCl/ Codeine (Phenergan with Codeine) 5 ml Q4H PRN GT For Cough 10/20/17 08:21 11/19/17 08:20 Quetiapine Fumarate (SEROquel) 12.5 mg EVERY 6 HOURS PRN GT agitation 10/20/17 23:15 11/19/17 23:14 Vancomycin HCl (Vanco rx to dose) 1 ea DAILY PRN MISC Per rx protocol 10/20/17 06:30 11/19/17 06:29 Allergies: Coded Allergies: No Known Allergies (Verified , 01/02/09) ROS Limited/Unobtainable: Yes - non verbal Objective Last Vital Signs Date Time Temp Pulse Resp B/P (MAP) Pulse Ox O2 Delivery O2 Flow Rate FiO2 10/21/17 16:00 8.0 40 10/21/17 16:00 72 10/21/17 15:20 20 95 10/21/17 12:00 96.9 130/69 96.9 10/21/17 08:00 Bi-pap General Appearance: mild distress Neck: non-tender, supple, limited range of motion Cardiovascular: normal rate, tachycardia, systolic murmur Respiratory/Chest: rhonchi - bilaterally Abdomen: normal bowel sounds, non tender, soft, no mass, decreased bowel sounds , other - elder Edema: trace edema Neurologic: disoriented, aphasia Laboratory Tests Test 10/21/17 04:05 10/21/17 15:00 White Blood Count 17.3 K/UL (4.8-10.8) H Red Blood Count 3.73 M/UL (4.70-6.10) L Hemoglobin 9.8 G/DL (14.2-18.0) L Hematocrit 32.1 % (42.0-52.0) L Mean Corpuscular Volume 86 FL (80-99) Mean Corpuscular Hemoglobin 26.2 PG (27.0-31.0) L Mean Corpuscular Hemoglobin Concent 30.4 G/DL (32.0-36.0) L Red Cell Distribution Width 17.1 % (11.6-14.8) H Platelet Count 336 K/UL (150-450) Mean Platelet Volume 6.0 FL (6.5-10.1) L Neutrophils (%) (Auto) 76.0 % (45.0-75.0) H Lymphocytes (%) (Auto) 18.2 % (20.0-45.0) L Monocytes (%) (Auto) 4.1 % (1.0-10.0) Eosinophils (%) (Auto) 1.2 % (0.0-3.0) Basophils (%) (Auto) 0.5 % (0.0-2.0) Sodium Level 155 MMOL/L (136-145) H Potassium Level 6.1 MMOL/L (3.5-5.1) *H Chloride Level 117 MMOL/L (98-107) H Carbon Dioxide Level 27 MMOL/L (21-32) Anion Gap 11 mmol/L (5-15) Blood Urea Nitrogen 139 mg/dL (7-18) H Creatinine 4.0 MG/DL (0.55-1.30) H Estimat Glomerular Filtration Rate mL/min (>60) Glucose Level 162 MG/DL (74-106) H Calcium Level 9.3 MG/DL (8.5-10.1) Phosphorus Level 4.4 MG/DL (2.5-4.9) Total Bilirubin 0.3 MG/DL (0.2-1.0) Aspartate Amino Transf (AST/SGOT) 208 U/L (15-37) H Alanine Aminotransferase (ALT/SGPT) 232 U/L (12-78) H Alkaline Phosphatase 134 U/L (46-116) H C-Reactive Protein, Quantitative > 70.0 mg/dL (0.00-0.90) H Pro-B-Type Natriuretic Peptide 2721 pg/mL (0-125) H Total Protein 8.6 G/DL (6.4-8.2) H Albumin 1.7 G/DL (3.4-5.0) L Globulin 6.9 g/dL Albumin/Globulin Ratio 0.2 (1.0-2.7) L Lipase 490 U/L (73-393) H Urine Random Sodium < 20 mmol/L (20-110) L Microbiology Date/Time Source Procedure Growth Status 10/20/17 03:15 Blood Blood Culture - Preliminary NO GROWTH AFTER 24 HOURS Resulted 10/20/17 03:00 Blood Blood Culture - Preliminary NO GROWTH AFTER 24 HOURS Resulted 10/20/17 10:40 Sputum Gram Stain - Final Resulted 10/20/17 10:40 Sputum Sputum Culture Pending Resulted 10/20/17 03:33 Urine,Clean Catch Urine Culture - Preliminary Gram Negative Bacillus 1 Resulted Intake and Output 10/20/17 10/21/17 19:00 07:00 Intake Total 665 ml 840 ml Output Total 100 ml 200 ml Balance 565 ml 640 ml Free Water 130 ml 400 ml IV Total 415 ml 55 ml Tube Feeding 120 ml 285 ml Other 100 ml Output Urine Total 100 ml 200 ml # Bowel Movements 2 Assessment/Plan Status: stable, progressing Assessment/Plan IMPRESSION: 1. Acute respiratory failure. 2. Sepsis on admission. 3. Urinary tract infection. 4. Decubitus ulcer. 5. Elevated troponin. 6. History of diabetes. 7. 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 8. Acute toxic and metabolic encephalopathy. 9. Acute on chronic kidney disease stage 3. 10. History of hypertension. 11. Functional quadriplegia. 12. Severe protein-calorie malnutrition. 13. Gait impairment and bed-bound status. 14. History of seizure. 15. Dehydration. 16. Hypernatremia. 17. Hyperkalemia. 18. Hyperkalemia PLAN: 1. Monitor in PIY[facility] unit. 2. Continue with BiPAP machine. as needed-wean down oxygen 3. IV antibiotics. 4. Trend creatinine. 5. We will check the cultures and adjust antibiotics accordingly. 6. Renal and ID f/u 7. We will follow the electrolytes correctly and replete as indicated.-- kayexalate for k 6.1 8. Aspiration precaution. 9. Hold feeding while the patient is NPO. The patient's code status is DNR/DNI. CESARIO CHACON Oct 21, 2017 17:19
[2017-10-21] MEDS: Docusate 100mg/10ml Liq GT SCH (18:40)
[2017-10-21 20:00] VITALS: BP 99/65
[2017-10-21] MEDS: Pantoprazole Inj IVP SCH (20:49)
[2017-10-22] VITALS: BP 118/62
[2017-10-22] MEDS: Meropenem 1 GM in NS 55 ML IVPB SCH (03:48)
[2017-10-22 04:00] VITALS: BP 113/55
[2017-10-22 05:07] LABS: BASOPHILS % (AUTO) 0.4 % (0.0-2.0); HEMATOCRIT 32.7 % (42.0-52.0); HEMOGLOBIN 9.8 G/DL (14.2-18.0); LYMPHOCYTES % (AUTO) 17.3 % (20.0-45.0); MEAN CORPUSCULAR VOLUME 85 FL (80-99); MONOCYTES % (AUTO) 3.6 % (1.0-10.0); NEUTROPHILS % (AUTO) 75.6 % (45.0-75.0); PLATELET COUNT 288 K/UL (150-450); RED BLOOD COUNT 3.83 M/UL (4.70-6.10); RED CELL DISTRIBUTION WIDTH 16.6 % (11.6-14.8); WHITE BLOOD COUNT 13.8 K/UL (4.8-10.8)
[2017-10-22 05:35] LABS: AMMONIA 50 umol/L (11-32)
[2017-10-22 05:47] LABS: CREATINE KINASE 157 U/L (26-308); GAMMA GLUTAMYL TRANSPEPTIDASE 56 U/L (5-85); PHOSPHORUS 5.2 MG/DL (2.5-4.9)
[2017-10-22 06:53] LABS: ALANINE AMINOTRANSFERASE 225 U/L (12-78); ALBUMIN/GLOBULIN RATIO 0.3 (1.0-2.7); ALKALINE PHOSPHATASE 148 U/L (46-116); ANION GAP 14 mmol/L (5-15); ASPARTATE AMINO TRANSFERASE 190 U/L (15-37); BILIRUBIN,TOTAL 0.3 MG/DL (0.2-1.0); BLOOD UREA NITROGEN 143 mg/dL (7-18); CALCIUM 9.1 MG/DL (8.5-10.1); CARBON DIOXIDE 27 MMOL/L (21-32); CHLORIDE 114 MMOL/L (98-107); CHOLESTEROL < 50 MG/DL (< 200); CREATININE 3.7 MG/DL (0.55-1.30); FERRITIN 1644 NG/ML (8-388); HDL CHOLESTEROL 13 MG/DL (40-60); POTASSIUM 4.1 MMOL/L (3.5-5.1); SODIUM 155 MMOL/L (136-145); TRIGLYCERIDES 153 MG/DL (30-150)
[2017-10-22 08:00] VITALS: BP 111/68
[2017-10-22] MEDS: Docusate 100mg/10ml Liq GT SCH ×3 (09:47→17:27)
[2017-10-22] MEDS: Pantoprazole Inj IVP SCH ×2 (09:47→20:40)
[2017-10-22] MEDS: Heparin 5000 units/ml inj SUBQ SCH ×2 (09:49→20:42)
[2017-10-22] MEDS ORDERED: Vancomycin 1gm/D5W 275ml IVPB ONE ×2 (10:00)
--- NOTE | 2017-10-22 10:53 | Pulmonology Progress Note ---
Assessment/Plan Problems: (1) Acute respiratory failure (2) Sepsis (3) UTI (urinary tract infection) (4) Decubital ulcer (5) s/p multiple lacunar strokes, old (6) Diabetes mellitus (7) DNR (do not resuscitate) (8) Feeding by G-tube Assessment/Plan titrate fio2 to sat of 92% continue abx iv fluids renal note appreciated f/u electrolytes sliding scale, insulin coverage wound care dvt prophylaxis. Subjective ROS Limited/Unobtainable: Yes Interval Events: looks comfortable, NAD, on nasal cannula Allergies: Coded Allergies: No Known Allergies (Verified , 01/02/09) Objective Last 24 Hour Vital Signs Date Time Temp Pulse Resp B/P (MAP) Pulse Ox O2 Delivery O2 Flow Rate FiO2 10/22/17 08:52 84 20 Nasal Cannula 2.0 28 10/22/17 08:50 Nasal Cannula 2.0 28 10/22/17 08:49 95 Nasal Cannula 2.0 28 10/22/17 08:00 79 10/22/17 08:00 97.7 78 26 111/68 95 Nasal Cannula 4.0 97.7 10/22/17 04:00 4.0 10/22/17 04:00 96.8 73 19 113/55 95 Nasal Cannula 4.0 96.8 10/22/17 03:47 75 10/22/17 00:00 96.6 75 20 118/62 100 Nasal Cannula 4.0 96.6 10/21/17 23:46 77 10/21/17 20:00 4.0 10/21/17 20:00 96.4 79 18 99/65 100 Nasal Cannula 4.0 96.4 10/21/17 19:25 72 10/21/17 16:00 97.2 78 26 125/79 100 8.0 40 97.2 10/21/17 16:00 8.0 40 10/21/17 16:00 72 10/21/17 15:20 78 20 95 4.0 36 10/21/17 13:30 71 20 97 4.0 36 10/21/17 12:00 8.0 40 10/21/17 12:00 71 10/21/17 12:00 96.9 62 28 130/69 98 8.0 40 96.9 10/21/17 11:28 72 20 100 4.0 36 Intake and Output 10/21/17 10/22/17 19:00 07:00 Intake Total 1965 ml 855 ml Output Total 501 ml 320 ml Balance 1464 ml 535 ml Free Water 370 ml 300 ml IV Total 755 ml 55 ml Tube Feeding 840 ml 400 ml Other 100 ml Output Urine Total 500 ml 320 ml Stool Total 1 ml # Bowel Movements 4 HEENT: normocephalic, atraumatic Respiratory/Chest: chest wall non-tender, lungs clear Cardiovascular: normal peripheral pulses, normal rate Abdomen: normal bowel sounds, soft, non tender Genitourinary: normal external genitalia Extremities: no cyanosis Skin: no rash Neurologic/Psychiatric: no motor/sensory deficits Lymphatic: no neck adenopathy Musculoskeletal: normal muscle bulk Microbiology Date/Time Source Procedure Growth Status 10/20/17 03:15 Blood Blood Culture - Preliminary NO GROWTH AFTER 48 HOURS Resulted 10/20/17 03:00 Blood Blood Culture - Preliminary NO GROWTH AFTER 48 HOURS Resulted 10/20/17 10:40 Sputum Gram Stain - Final Resulted 10/20/17 10:40 Sputum Culture - Preliminary Gram Negative Bacillus 1 Gram Negative Bacillus 2 Usual Respiratory Bethany Resulted 10/20/17 03:33 Urine,Clean Catch Urine Culture - Final Klebsiella Pneumoniae Complete Laboratory Tests 10/21/17 15:00: Urine Random Sodium < 20L 10/22/17 04:30: White Blood Count 13.8H, Red Blood Count 3.83L, Hemoglobin 9.8L, Hematocrit 32.7L, Mean Corpuscular Volume 85, Mean Corpuscular Hemoglobin 25.6L, Mean Corpuscular Hemoglobin Concent 29.9L, Red Cell Distribution Width 16.6H, Platelet Count 288, Mean Platelet Volume 6.7, Neutrophils (%) (Auto) 75.6H, Lymphocytes (%) (Auto) 17.3L, Monocytes (%) (Auto) 3.6, Eosinophils (%) (Auto) 3.0, Basophils (%) (Auto) 0.4, Sodium Level 155H, Potassium Level 4.1, Chloride Level 114H, Carbon Dioxide Level 27, Anion Gap 14, Blood Urea Nitrogen 143H, Creatinine 3.7H, Estimat Glomerular Filtration Rate , Glucose Level 134H, Hemoglobin A1c 6.4H, Uric Acid 10.1H, Calcium Level 9.1, Phosphorus Level 5.2H, Magnesium Level 3.3H, Ferritin 1644H, Total Bilirubin 0.3, Gamma Glutamyl Transpeptidase 56, Aspartate Amino Transf (AST/SGOT) 190H, Alanine Aminotransferase (ALT/SGPT) 225H, Alkaline Phosphatase 148H, Ammonia 50H, Total Creatine Kinase 157, Troponin I 0.099H, Pro-B-Type Natriuretic Peptide 2283H, Total Protein 8.4H, Albumin 2.0L, Globulin 6.4, Albumin/Globulin Ratio 0.3L, Triglycerides Level 153H, Cholesterol Level < 50, LDL Cholesterol 18, HDL Cholesterol 13L, Cholesterol/HDL Ratio 3.8, Lipase 450H, Vitamin B12 Level 1687H , Folate 42.3, Thyroid Stimulating Hormone (TSH) 2.273, Cortisol AM Sample [ Pending], Random Vancomycin Level 15.4 10/22/17 05:50: Lactic Acid Level 0.90 Current Medications Medications (Trade) Dose Ordered Sig/Keira Route PRN Reason Start Time Stop Time Status Last Admin Dose Admin Acetaminophen (Tylenol) 650 mg Q4H PRN GT Mild Pain/Temp > 100.5 10/20/17 08:21 11/19/17 08:20 Albuterol/ Ipratropium (Albuterol/ Ipratropium) 3 ml Q4H PRN HHN Shortness of Breath 10/20/17 06:30 10/25/17 06:29 Dextrose 1,000 ml @ 150 mls/hr Q6H40M IV 10/22/17 08:30 11/20/17 08:29 10/22/17 08:30 Docusate Sodium (Colace) 100 mg THREE TIMES A DAY GT 10/21/17 18:00 11/20/17 17:59 10/22/17 09:47 Heparin Sodium (Porcine) (Heparin 5000 units/ml) 5,000 units EVERY 12 HOURS SUBQ 10/20/17 09:00 11/19/17 08:59 10/22/17 09:49 Hydralazine HCl (Apresoline) 25 mg Q4H PRN GT systolic bp over 160 10/21/17 14:45 11/20/17 14:44 Meropenem 1 gm/ Sodium Chloride 55 ml @ 110 mls/hr Q12H IVPB 10/20/17 16:00 10/25/17 15:59 10/22/17 03:48 Nitroglycerin (Ntg) 0.4 mg Q5M PRN SL Prn Chest Pain 10/20/17 06:30 11/19/17 06:29 Ondansetron HCl (Zofran) 4 mg Q6H PRN IVP Nausea & Vomiting 10/20/17 06:30 11/19/17 06:29 Pantoprazole (Protonix) 40 mg EVERY 12 HOURS IVP 10/21/17 21:00 11/20/17 20:59 10/22/17 09:47 Polyethylene Glycol (Miralax) 17 gm DAILYPRN PRN GT Constipation 10/20/17 08:21 11/19/17 08:20 Promethazine HCl/ Codeine (Phenergan with Codeine) 5 ml Q4H PRN GT For Cough 10/20/17 08:21 11/19/17 08:20 Quetiapine Fumarate (SEROquel) 12.5 mg EVERY 6 HOURS PRN GT agitation 10/20/17 23:15 11/19/17 23:14 Vancomycin HCl (Vanco rx to dose) 1 ea DAILY PRN MISC Per rx protocol 10/20/17 06:30 11/19/17 06:29 Vancomycin HCl 1 gm/Dextrose 275 ml @ 183.708 mls/hr ONCE ONCE IVPB 10/22/17 10:00 10/22/17 11:29 10/22/17 10:01 Dhiraj Holly MD Oct 22, 2017 10:53
[2017-10-22 12:00] VITALS: BP 125/66
--- NOTE | 2017-10-22 12:07 | Nephrology Progress Note ---
Assessment/Plan Problem List: (1) Acute respiratory failure (2) ATN (acute tubular necrosis) (3) Anemia (4) UTI (urinary tract infection) (5) DNR (do not resuscitate) Assessment Acute Renal failure- cr lower ? Underlying CKD Component of dehydration, Pre renal state and Hypernatremia Acute respiratory failure, Aspiartion Pneumonia, UTI Septic H/O Multiple Strokes Anemia Elevated Troponin Hyperglycemia PEG Plan Pulm support Hydrate- BS control avoid nephrotoxics Monitor renal parameters Hemodynamic support urine studies Per orders Objective Objective Last 24 Hour Vital Signs Date Time Temp Pulse Resp B/P (MAP) Pulse Ox O2 Delivery O2 Flow Rate FiO2 10/22/17 08:52 84 20 Nasal Cannula 2.0 28 10/22/17 08:50 Nasal Cannula 2.0 28 10/22/17 08:49 95 Nasal Cannula 2.0 28 10/22/17 08:00 79 10/22/17 08:00 97.7 78 26 111/68 95 Nasal Cannula 4.0 97.7 10/22/17 04:00 4.0 10/22/17 04:00 96.8 73 19 113/55 95 Nasal Cannula 4.0 96.8 10/22/17 03:47 75 10/22/17 00:00 96.6 75 20 118/62 100 Nasal Cannula 4.0 96.6 10/21/17 23:46 77 10/21/17 20:00 4.0 10/21/17 20:00 96.4 79 18 99/65 100 Nasal Cannula 4.0 96.4 10/21/17 19:25 72 10/21/17 16:00 97.2 78 26 125/79 100 8.0 40 97.2 10/21/17 16:00 8.0 40 10/21/17 16:00 72 10/21/17 15:20 78 20 95 4.0 36 10/21/17 13:30 71 20 97 4.0 36 Intake and Output 10/21/17 10/22/17 19:00 07:00 Intake Total 1965 ml 855 ml Output Total 501 ml 320 ml Balance 1464 ml 535 ml Free Water 370 ml 300 ml IV Total 755 ml 55 ml Tube Feeding 840 ml 400 ml Other 100 ml Output Urine Total 500 ml 320 ml Stool Total 1 ml # Bowel Movements 4 Laboratory Tests 10/21/17 15:00: Urine Random Sodium < 20L 10/22/17 04:30: White Blood Count 13.8H, Red Blood Count 3.83L, Hemoglobin 9.8L, Hematocrit 32.7L, Mean Corpuscular Volume 85, Mean Corpuscular Hemoglobin 25.6L, Mean Corpuscular Hemoglobin Concent 29.9L, Red Cell Distribution Width 16.6H, Platelet Count 288, Mean Platelet Volume 6.7, Neutrophils (%) (Auto) 75.6H, Lymphocytes (%) (Auto) 17.3L, Monocytes (%) (Auto) 3.6, Eosinophils (%) (Auto) 3.0, Basophils (%) (Auto) 0.4, Sodium Level 155H, Potassium Level 4.1, Chloride Level 114H, Carbon Dioxide Level 27, Anion Gap 14, Blood Urea Nitrogen 143H, Creatinine 3.7H, Estimat Glomerular Filtration Rate , Glucose Level 134H, Hemoglobin A1c 6.4H, Uric Acid 10.1H, Calcium Level 9.1, Phosphorus Level 5.2H, Magnesium Level 3.3H, Ferritin 1644H, Total Bilirubin 0.3, Gamma Glutamyl Transpeptidase 56, Aspartate Amino Transf (AST/SGOT) 190H, Alanine Aminotransferase (ALT/SGPT) 225H, Alkaline Phosphatase 148H, Ammonia 50H, Total Creatine Kinase 157, Troponin I 0.099H, Pro-B-Type Natriuretic Peptide 2283H, Total Protein 8.4H, Albumin 2.0L, Globulin 6.4, Albumin/Globulin Ratio 0.3L, Triglycerides Level 153H, Cholesterol Level < 50, LDL Cholesterol 18, HDL Cholesterol 13L, Cholesterol/HDL Ratio 3.8, Lipase 450H, Vitamin B12 Level 1687H , Folate 42.3, Thyroid Stimulating Hormone (TSH) 2.273, Cortisol AM Sample [ Pending], Random Vancomycin Level 15.4 10/22/17 05:50: Lactic Acid Level 0.90 Height (Feet): 6 Height (Inches): 2.00 Weight (Pounds): 209 ROSE MARY REID Oct 22, 2017 12:07
--- NOTE | 2017-10-22 12:49 | General Progress Note ---
Assessment/Plan Status: stable, progressing Assessment/Plan encephalopathy agitation dementia -Seroquel 12.5 mg q 6hr prn -dc Seroquel 12.5mg qam Subjective Date patient seen: Oct 22, 2017 Neurologic/Psychiatric: Reports: anxiety, depressed Allergies: Coded Allergies: No Known Allergies (Verified , 01/02/09) Subjective the pt was more alert. family in room Objective Last 24 Hour Vital Signs Date Time Temp Pulse Resp B/P (MAP) Pulse Ox O2 Delivery O2 Flow Rate FiO2 10/22/17 12:00 78 10/22/17 12:00 97.7 80 28 125/66 91 Nasal Cannula 4.0 97.7 10/22/17 08:52 84 20 Nasal Cannula 2.0 28 10/22/17 08:50 Nasal Cannula 2.0 28 10/22/17 08:49 95 Nasal Cannula 2.0 28 10/22/17 08:00 79 10/22/17 08:00 97.7 78 26 111/68 95 Nasal Cannula 4.0 97.7 10/22/17 04:00 4.0 10/22/17 04:00 96.8 73 19 113/55 95 Nasal Cannula 4.0 96.8 10/22/17 03:47 75 10/22/17 00:00 96.6 75 20 118/62 100 Nasal Cannula 4.0 96.6 10/21/17 23:46 77 10/21/17 20:00 4.0 10/21/17 20:00 96.4 79 18 99/65 100 Nasal Cannula 4.0 96.4 10/21/17 19:25 72 10/21/17 16:00 97.2 78 26 125/79 100 8.0 40 97.2 10/21/17 16:00 8.0 40 10/21/17 16:00 72 10/21/17 15:20 78 20 95 4.0 36 10/21/17 13:30 71 20 97 4.0 36 Intake and Output 10/21/17 10/22/17 19:00 07:00 Intake Total 1965 ml 855 ml Output Total 501 ml 320 ml Balance 1464 ml 535 ml Free Water 370 ml 300 ml IV Total 755 ml 55 ml Tube Feeding 840 ml 400 ml Other 100 ml Output Urine Total 500 ml 320 ml Stool Total 1 ml # Bowel Movements 4 Laboratory Tests 10/21/17 15:00: Urine Random Sodium < 20L 10/22/17 04:30: White Blood Count 13.8H, Red Blood Count 3.83L, Hemoglobin 9.8L, Hematocrit 32.7L, Mean Corpuscular Volume 85, Mean Corpuscular Hemoglobin 25.6L, Mean Corpuscular Hemoglobin Concent 29.9L, Red Cell Distribution Width 16.6H, Platelet Count 288, Mean Platelet Volume 6.7, Neutrophils (%) (Auto) 75.6H, Lymphocytes (%) (Auto) 17.3L, Monocytes (%) (Auto) 3.6, Eosinophils (%) (Auto) 3.0, Basophils (%) (Auto) 0.4, Sodium Level 155H, Potassium Level 4.1, Chloride Level 114H, Carbon Dioxide Level 27, Anion Gap 14, Blood Urea Nitrogen 143H, Creatinine 3.7H, Estimat Glomerular Filtration Rate , Glucose Level 134H, Hemoglobin A1c 6.4H, Uric Acid 10.1H, Calcium Level 9.1, Phosphorus Level 5.2H, Magnesium Level 3.3H, Ferritin 1644H, Total Bilirubin 0.3, Gamma Glutamyl Transpeptidase 56, Aspartate Amino Transf (AST/SGOT) 190H, Alanine Aminotransferase (ALT/SGPT) 225H, Alkaline Phosphatase 148H, Ammonia 50H, Total Creatine Kinase 157, Troponin I 0.099H, Pro-B-Type Natriuretic Peptide 2283H, Total Protein 8.4H, Albumin 2.0L, Globulin 6.4, Albumin/Globulin Ratio 0.3L, Triglycerides Level 153H, Cholesterol Level < 50, LDL Cholesterol 18, HDL Cholesterol 13L, Cholesterol/HDL Ratio 3.8, Lipase 450H, Vitamin B12 Level 1687H , Folate 42.3, Thyroid Stimulating Hormone (TSH) 2.273, Cortisol AM Sample [ Pending], Random Vancomycin Level 15.4 10/22/17 05:50: Lactic Acid Level 0.90 Height (Feet): 6 Height (Inches): 2.00 Weight (Pounds): 209 General Appearance: no apparent distress, alert, confused Juventino Ochoa M.D. Oct 22, 2017 12:49
--- NOTE | 2017-10-22 12:54 | Infectious Diseases Prog Note ---
Assessment/Plan Assessment/Plan Assessment: Severe Sepsis; improving- likely 2ry to UTI, pancreatitis- r/o bacteremia -u/a wbc tnct, nit neg, leuk +3; ucx >100K K. pna (R cipro/levo,nitro, amp, bactrim, otherwise S) -Bcx NTD -CXR: No definite acute process. Bilateral basilar atelectasis and/or scarring -lipase ~800> 400s -sp cx GNRs #1, #2 (likely colonizers, no PNA on CXR) Hypothermia (resolved)/leukocytosis, improving PAN, worsening, now hyperkalemia; improving Elevated LFTs, improving Recent Septic shock 2ry to PNA, UTI 09/2017 -Bacteremia with Staph capitis/ contamination -Pneumonia with MDR Acinetobacter (S Tigecycicline, minocycline, Colistin/ polymixin B) & ESBL Proteus -UTI with ESBL Proteus CVA w/ R hemiplegia seizure disorder PUD Dementia renal insufficiency DM bed bound CAD s/p 3v CABG HTN GERD dysphagia s/p GT DNR/DNI NKDA Plan: -D/c empiric IV Vancomycin #3 -Switch Meropenem #3 to Ceftriaxone for K.pna UTI based on susceptibility profile -10/20 SP IV Cefepime #1, Ceftriaxone x1 -s/p Tygacil>Minocycline/INH Colistin course 09/2017 -f/u cx -Monitor CBC/BMP, temperatures -Trend WBC, LFTs -Cdiff if diarrhea -aspiration precautions -PEG care -wound care/prevention per hospital protocol Thank you for this consultation. Will continue to follow along with you. Discussed with RN and daughter at bedside. Subjective Allergies: Coded Allergies: No Known Allergies (Verified , 01/02/09) Subjective hypothermia resolved leukocytosis improving BCx NTD at 4l NC Objective Vital Signs Last 24 Hour Vital Signs Date Time Temp Pulse Resp B/P (MAP) Pulse Ox O2 Delivery O2 Flow Rate FiO2 10/22/17 12:00 78 10/22/17 12:00 97.7 80 28 125/66 91 Nasal Cannula 4.0 97.7 10/22/17 08:52 84 20 Nasal Cannula 2.0 28 10/22/17 08:50 Nasal Cannula 2.0 28 10/22/17 08:49 95 Nasal Cannula 2.0 28 10/22/17 08:00 79 10/22/17 08:00 97.7 78 26 111/68 95 Nasal Cannula 4.0 97.7 10/22/17 04:00 4.0 10/22/17 04:00 96.8 73 19 113/55 95 Nasal Cannula 4.0 96.8 10/22/17 03:47 75 10/22/17 00:00 96.6 75 20 118/62 100 Nasal Cannula 4.0 96.6 10/21/17 23:46 77 10/21/17 20:00 4.0 10/21/17 20:00 96.4 79 18 99/65 100 Nasal Cannula 4.0 96.4 10/21/17 19:25 72 10/21/17 16:00 97.2 78 26 125/79 100 8.0 40 97.2 10/21/17 16:00 8.0 40 10/21/17 16:00 72 10/21/17 15:20 78 20 95 4.0 36 10/21/17 13:30 71 20 97 4.0 36 Height (Feet): 6 Height (Inches): 2.00 Weight (Pounds): 209 Objective General Appearance: WD/WN Lines, tubes and drains: peripheral HEENT: normocephalic, atraumatic Neck: non-tender, normal alignment Respiratory/Chest: chest wall non-tender, lungs clear Cardiovascular/Chest: normal peripheral pulses Abdomen: normal bowel sounds, non tender Extremities: no rash, cellulitis Microbiology Date/Time Source Procedure Growth Status 10/20/17 03:15 Blood Blood Culture - Preliminary NO GROWTH AFTER 48 HOURS Resulted 10/20/17 03:00 Blood Blood Culture - Preliminary NO GROWTH AFTER 48 HOURS Resulted 10/20/17 10:40 Sputum Gram Stain - Final Resulted 10/20/17 10:40 Sputum Culture - Preliminary Gram Negative Bacillus 1 Gram Negative Bacillus 2 Usual Respiratory Bethany Resulted 10/20/17 03:33 Urine,Clean Catch Urine Culture - Final Klebsiella Pneumoniae Complete Laboratory Tests Test 10/21/17 15:00 10/22/17 04:30 10/22/17 05:50 Urine Random Sodium < 20 mmol/L (20-110) L White Blood Count 13.8 K/UL (4.8-10.8) H Red Blood Count 3.83 M/UL (4.70-6.10) L Hemoglobin 9.8 G/DL (14.2-18.0) L Hematocrit 32.7 % (42.0-52.0) L Mean Corpuscular Volume 85 FL (80-99) Mean Corpuscular Hemoglobin 25.6 PG (27.0-31.0) L Mean Corpuscular Hemoglobin Concent 29.9 G/DL (32.0-36.0) L Red Cell Distribution Width 16.6 % (11.6-14.8) H Platelet Count 288 K/UL (150-450) Mean Platelet Volume 6.7 FL (6.5-10.1) Neutrophils (%) (Auto) 75.6 % (45.0-75.0) H Lymphocytes (%) (Auto) 17.3 % (20.0-45.0) L Monocytes (%) (Auto) 3.6 % (1.0-10.0) Eosinophils (%) (Auto) 3.0 % (0.0-3.0) Basophils (%) (Auto) 0.4 % (0.0-2.0) Sodium Level 155 MMOL/L (136-145) H Potassium Level 4.1 MMOL/L (3.5-5.1) Chloride Level 114 MMOL/L (98-107) H Carbon Dioxide Level 27 MMOL/L (21-32) Anion Gap 14 mmol/L (5-15) Blood Urea Nitrogen 143 mg/dL (7-18) H Creatinine 3.7 MG/DL (0.55-1.30) H Estimat Glomerular Filtration Rate mL/min (>60) Glucose Level 134 MG/DL (74-106) H Hemoglobin A1c 6.4 % (4.3-6.0) H Uric Acid 10.1 MG/DL (2.6-7.2) H Calcium Level 9.1 MG/DL (8.5-10.1) Phosphorus Level 5.2 MG/DL (2.5-4.9) H Magnesium Level 3.3 MG/DL (1.8-2.4) H Ferritin 1644 NG/ML (8-388) H Total Bilirubin 0.3 MG/DL (0.2-1.0) Gamma Glutamyl Transpeptidase 56 U/L (5-85) Aspartate Amino Transf (AST/SGOT) 190 U/L (15-37) H Alanine Aminotransferase (ALT/SGPT) 225 U/L (12-78) H Alkaline Phosphatase 148 U/L (46-116) H Ammonia 50 umol/L (11-32) H Total Creatine Kinase 157 U/L (26-308) Troponin I 0.099 ng/mL (0.000-0.056) Pro-B-Type Natriuretic Peptide 2283 pg/mL (0-125) H Total Protein 8.4 G/DL (6.4-8.2) H Albumin 2.0 G/DL (3.4-5.0) L Globulin 6.4 g/dL Albumin/Globulin Ratio 0.3 (1.0-2.7) L Triglycerides Level 153 MG/DL (30-150) H Cholesterol Level < 50 MG/DL (< 200) LDL Cholesterol 18 mg/dL (<100) HDL Cholesterol 13 MG/DL (40-60) L Cholesterol/HDL Ratio 3.8 (3.3-4.4) Lipase 450 U/L (73-393) H Vitamin B12 Level 1687 PG/ML (193-986) H Folate 42.3 NG/ML (8.6-58.9) Thyroid Stimulating Hormone (TSH) 2.273 uiU/mL (0.358-3.740) Cortisol AM Sample Pending Random Vancomycin Level 15.4 ug/mL Lactic Acid Level 0.90 mmol/L (0.4-2.0) Current Medications Medications (Trade) Dose Ordered Sig/Keira Route PRN Reason Start Time Stop Time Status Last Admin Dose Admin Acetaminophen (Tylenol) 650 mg Q4H PRN GT Mild Pain/Temp > 100.5 10/20/17 08:21 11/19/17 08:20 Albuterol/ Ipratropium (Albuterol/ Ipratropium) 3 ml Q4H PRN HHN Shortness of Breath 10/20/17 06:30 10/25/17 06:29 Dextrose 1,000 ml @ 150 mls/hr Q6H40M IV 10/22/17 08:30 11/20/17 08:29 10/22/17 08:30 Docusate Sodium (Colace) 100 mg THREE TIMES A DAY GT 10/21/17 18:00 11/20/17 17:59 10/22/17 09:47 Heparin Sodium (Porcine) (Heparin 5000 units/ml) 5,000 units EVERY 12 HOURS SUBQ 10/20/17 09:00 11/19/17 08:59 10/22/17 09:49 Hydralazine HCl (Apresoline) 25 mg Q4H PRN GT systolic bp over 160 10/21/17 14:45 11/20/17 14:44 Meropenem 1 gm/ Sodium Chloride 55 ml @ 110 mls/hr Q12H IVPB 10/20/17 16:00 10/25/17 15:59 10/22/17 03:48 Nitroglycerin (Ntg) 0.4 mg Q5M PRN SL Prn Chest Pain 10/20/17 06:30 11/19/17 06:29 Ondansetron HCl (Zofran) 4 mg Q6H PRN IVP Nausea & Vomiting 10/20/17 06:30 11/19/17 06:29 Pantoprazole (Protonix) 40 mg EVERY 12 HOURS IVP 10/21/17 21:00 11/20/17 20:59 10/22/17 09:47 Polyethylene Glycol (Miralax) 17 gm DAILYPRN PRN GT Constipation 10/20/17 08:21 11/19/17 08:20 Promethazine HCl/ Codeine (Phenergan with Codeine) 5 ml Q4H PRN GT For Cough 10/20/17 08:21 11/19/17 08:20 Quetiapine Fumarate (SEROquel) 12.5 mg EVERY 6 HOURS PRN GT agitation 10/20/17 23:15 11/19/17 23:14 Vancomycin HCl (Vanco rx to dose) 1 ea DAILY PRN MISC Per rx protocol 10/20/17 06:30 11/19/17 06:29 Skyla Cullen M.D. Oct 22, 2017 12:54
[2017-10-22] MEDS ORDERED: NS 500ML ONE (15:39)
[2017-10-22 16:00] VITALS: BP 145/83
[2017-10-22] MEDS: cefTRIAXone 1 GM in D5W 110 ML IVPB SCH (16:37)
[2017-10-22 20:00] VITALS: BP 126/76
--- NOTE | 2017-10-22 20:39 | Internal Med Progress Note ---
Subjective Date of Service: Oct 22, 2017 Physician Name Cesario Chacon Attending Physician Dhiraj Holly MD Past Medical History no change Past Surgical History no change Current Medications Medications (Trade) Dose Ordered Sig/Keira Route PRN Reason Start Time Stop Time Status Last Admin Dose Admin Acetaminophen (Tylenol) 650 mg Q4H PRN GT Mild Pain/Temp > 100.5 10/20/17 08:21 11/19/17 08:20 Albuterol/ Ipratropium (Albuterol/ Ipratropium) 3 ml Q4H PRN HHN Shortness of Breath 10/20/17 06:30 10/25/17 06:29 Ceftriaxone Sodium 1 gm/ Dextrose 110 ml @ 220 mls/hr Q24H IVPB 10/22/17 15:30 10/29/17 15:29 10/22/17 16:37 Dextrose 1,000 ml @ 150 mls/hr Q6H40M IV 10/22/17 08:30 11/20/17 08:29 10/22/17 16:26 Docusate Sodium (Colace) 100 mg THREE TIMES A DAY GT 10/21/17 18:00 11/20/17 17:59 10/22/17 17:27 Heparin Sodium (Porcine) (Heparin 5000 units/ml) 5,000 units EVERY 12 HOURS SUBQ 10/20/17 09:00 11/19/17 08:59 10/22/17 09:49 Hydralazine HCl (Apresoline) 25 mg Q4H PRN GT systolic bp over 160 10/21/17 14:45 11/20/17 14:44 Nitroglycerin (Ntg) 0.4 mg Q5M PRN SL Prn Chest Pain 10/20/17 06:30 11/19/17 06:29 Ondansetron HCl (Zofran) 4 mg Q6H PRN IVP Nausea & Vomiting 10/20/17 06:30 11/19/17 06:29 Pantoprazole (Protonix) 40 mg EVERY 12 HOURS IVP 10/21/17 21:00 11/20/17 20:59 10/22/17 09:47 Polyethylene Glycol (Miralax) 17 gm DAILYPRN PRN GT Constipation 10/20/17 08:21 11/19/17 08:20 Promethazine HCl/ Codeine (Phenergan with Codeine) 5 ml Q4H PRN GT For Cough 10/20/17 08:21 11/19/17 08:20 Quetiapine Fumarate (SEROquel) 12.5 mg EVERY 6 HOURS PRN GT agitation 10/20/17 23:15 11/19/17 23:14 Allergies: Coded Allergies: No Known Allergies (Verified , 01/02/09) ROS Limited/Unobtainable: Yes Objective Last Vital Signs Date Time Temp Pulse Resp B/P (MAP) Pulse Ox O2 Delivery O2 Flow Rate FiO2 10/22/17 20:00 98.2 78 26 126/76 97 Nasal Cannula 4.0 98.2 10/22/17 19:35 32 General Appearance: no apparent distress Neck: non-tender, supple Cardiovascular: normal rate, no JVD, systolic murmur Respiratory/Chest: rhonchi - bilaterally Abdomen: normal bowel sounds, non tender, soft, other - PEG Genitourinary/Rectal: normal genital exam, other - elder Laboratory Tests Test 10/22/17 04:30 10/22/17 05:50 White Blood Count 13.8 K/UL (4.8-10.8) H Red Blood Count 3.83 M/UL (4.70-6.10) L Hemoglobin 9.8 G/DL (14.2-18.0) L Hematocrit 32.7 % (42.0-52.0) L Mean Corpuscular Volume 85 FL (80-99) Mean Corpuscular Hemoglobin 25.6 PG (27.0-31.0) L Mean Corpuscular Hemoglobin Concent 29.9 G/DL (32.0-36.0) L Red Cell Distribution Width 16.6 % (11.6-14.8) H Platelet Count 288 K/UL (150-450) Mean Platelet Volume 6.7 FL (6.5-10.1) Neutrophils (%) (Auto) 75.6 % (45.0-75.0) H Lymphocytes (%) (Auto) 17.3 % (20.0-45.0) L Monocytes (%) (Auto) 3.6 % (1.0-10.0) Eosinophils (%) (Auto) 3.0 % (0.0-3.0) Basophils (%) (Auto) 0.4 % (0.0-2.0) Sodium Level 155 MMOL/L (136-145) H Potassium Level 4.1 MMOL/L (3.5-5.1) Chloride Level 114 MMOL/L (98-107) H Carbon Dioxide Level 27 MMOL/L (21-32) Anion Gap 14 mmol/L (5-15) Blood Urea Nitrogen 143 mg/dL (7-18) H Creatinine 3.7 MG/DL (0.55-1.30) H Estimat Glomerular Filtration Rate mL/min (>60) Glucose Level 134 MG/DL (74-106) H Hemoglobin A1c 6.4 % (4.3-6.0) H Uric Acid 10.1 MG/DL (2.6-7.2) H Calcium Level 9.1 MG/DL (8.5-10.1) Phosphorus Level 5.2 MG/DL (2.5-4.9) H Magnesium Level 3.3 MG/DL (1.8-2.4) H Ferritin 1644 NG/ML (8-388) H Total Bilirubin 0.3 MG/DL (0.2-1.0) Gamma Glutamyl Transpeptidase 56 U/L (5-85) Aspartate Amino Transf (AST/SGOT) 190 U/L (15-37) H Alanine Aminotransferase (ALT/SGPT) 225 U/L (12-78) H Alkaline Phosphatase 148 U/L (46-116) H Ammonia 50 umol/L (11-32) H Total Creatine Kinase 157 U/L (26-308) Troponin I 0.099 ng/mL (0.000-0.056) Pro-B-Type Natriuretic Peptide 2283 pg/mL (0-125) H Total Protein 8.4 G/DL (6.4-8.2) H Albumin 2.0 G/DL (3.4-5.0) L Globulin 6.4 g/dL Albumin/Globulin Ratio 0.3 (1.0-2.7) L Triglycerides Level 153 MG/DL (30-150) H Cholesterol Level < 50 MG/DL (< 200) LDL Cholesterol 18 mg/dL (<100) HDL Cholesterol 13 MG/DL (40-60) L Cholesterol/HDL Ratio 3.8 (3.3-4.4) Lipase 450 U/L (73-393) H Vitamin B12 Level 1687 PG/ML (193-986) H Folate 42.3 NG/ML (8.6-58.9) Thyroid Stimulating Hormone (TSH) 2.273 uiU/mL (0.358-3.740) Cortisol AM Sample 14.0 UG/DL Random Vancomycin Level 15.4 ug/mL Lactic Acid Level 0.90 mmol/L (0.4-2.0) Microbiology Date/Time Source Procedure Growth Status 10/20/17 03:15 Blood Blood Culture - Preliminary NO GROWTH AFTER 48 HOURS Resulted 10/20/17 03:00 Blood Blood Culture - Preliminary NO GROWTH AFTER 48 HOURS Resulted 10/20/17 10:40 Sputum Gram Stain - Final Resulted 10/20/17 10:40 Sputum Culture - Preliminary Gram Negative Bacillus 1 Gram Negative Bacillus 2 Usual Respiratory Bethany Resulted 10/20/17 03:33 Urine,Clean Catch Urine Culture - Final Klebsiella Pneumoniae Complete Intake and Output 10/21/17 10/22/17 19:00 07:00 Intake Total 1965 ml 855 ml Output Total 501 ml 320 ml Balance 1464 ml 535 ml Free Water 370 ml 300 ml IV Total 755 ml 55 ml Tube Feeding 840 ml 400 ml Other 100 ml Output Urine Total 500 ml 320 ml Stool Total 1 ml # Bowel Movements 4 Assessment/Plan Status: stable, progressing Assessment/Plan IMPRESSION: 1. Acute respiratory failure. 2. severe Sepsis on admission. 3. Urinary tract infection./ health Facility associated Pneumonia 4. Decubitus ulcer. 5. Elevated troponin. 6. History of diabetes. 7. 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 8. Acute toxic and metabolic encephalopathy. 9. Acute on chronic kidney disease stage 3. 10. History of hypertension. 11. Functional quadriplegia. 12. Severe protein-calorie malnutrition. 13. Gait impairment and bed-bound status. 14. History of seizure. 15. Dehydration. 16. Hypernatremia. 17. Hyperkalemia. 18. Hyperkalemia PLAN: 1. Monitor in [facility] unit. 2. Continue with BiPAP machine as needed. oxygen NC for now 3. IV antibiotics per ID 4. Trend creatinine. 5. We will check the cultures and adjust antibiotics accordingly. 6. Renal and ID f/u 7. We will follow the electrolytes correctly and replete as indicated. 8. Aspiration precaution. 9. Enteral feeding. 10. wound care The patient's code status is DNR/DNI. over 35 min spent today CESARIO CHACON Oct 22, 2017 20:39
[2017-10-23] VITALS: BP 129/77
[2017-10-23 04:00] VITALS: BP 138/77
[2017-10-23 07:01] LABS: BASOPHILS % (AUTO) 0.3 % (0.0-2.0); EOSINOPHILS % (AUTO) 3.9 % (0.0-3.0); HEMATOCRIT 30.5 % (42.0-52.0); HEMOGLOBIN 9.9 G/DL (14.2-18.0); MEAN CORPUSCULAR VOLUME 84 FL (80-99); MONOCYTES % (AUTO) 4.3 % (1.0-10.0); NEUTROPHILS % (AUTO) 66.6 % (45.0-75.0); PLATELET COUNT 289 K/UL (150-450); RED BLOOD COUNT 3.64 M/UL (4.70-6.10); RED CELL DISTRIBUTION WIDTH 16.3 % (11.6-14.8); WHITE BLOOD COUNT 10.9 K/UL (4.8-10.8)
[2017-10-23 07:50] LABS: ALANINE AMINOTRANSFERASE 184 U/L (12-78); ALBUMIN 1.8 G/DL (3.4-5.0); ALBUMIN/GLOBULIN RATIO 0.3 (1.0-2.7); ALKALINE PHOSPHATASE 158 U/L (46-116); ANION GAP 8 mmol/L (5-15); ASPARTATE AMINO TRANSFERASE 159 U/L (15-37); BILIRUBIN,TOTAL 0.2 MG/DL (0.2-1.0); BLOOD UREA NITROGEN 119 mg/dL (7-18); CALCIUM 8.6 MG/DL (8.5-10.1); CARBON DIOXIDE 30 MMOL/L (21-32); CHLORIDE 108 MMOL/L (98-107); CREATININE 3.4 MG/DL (0.55-1.30); POTASSIUM 3.4 MMOL/L (3.5-5.1); SODIUM 146 MMOL/L (136-145)
[2017-10-23 07:56] LABS: % IRON SATURATION 35 % (15-50); IRON 35 ug/dL (50-175); PHOSPHORUS 4.8 MG/DL (2.5-4.9); TOTAL IRON BINDING CAPACITY 100 ug/dL (250-450)
[2017-10-23 08:00] VITALS: BP 151/88
[2017-10-23] MEDS: Heparin 5000 units/ml inj SUBQ SCH ×2 (08:45→21:12)
[2017-10-23] MEDS: Docusate 100mg/10ml Liq GT SCH ×3 (08:45→16:34)
[2017-10-23] MEDS: Pantoprazole Inj IVP SCH ×2 (08:45→21:12)
--- NOTE | 2017-10-23 10:08 | Pulmonology Progress Note ---
Assessment/Plan Problems: (1) Acute respiratory failure (2) Sepsis (3) UTI (urinary tract infection) (4) Decubital ulcer (5) s/p multiple lacunar strokes, old (6) Diabetes mellitus (7) DNR (do not resuscitate) (8) Feeding by G-tube Assessment/Plan titrate fio2 to sat of 92% continue abx, wbc decreasing iv fluids renal note appreciated, bun/creatinine decreasing f/u electrolytes sliding scale, insulin coverage wound care dvt prophylaxis. Subjective ROS Limited/Unobtainable: No Constitutional: Reports: no symptoms HEENT: Repors: no symptoms Respiratory: Reports: no symptoms Allergies: Coded Allergies: No Known Allergies (Verified , 01/02/09) Objective Last 24 Hour Vital Signs Date Time Temp Pulse Resp B/P (MAP) Pulse Ox O2 Delivery O2 Flow Rate FiO2 10/23/17 08:00 97.2 72 30 151/88 95 Nasal Cannula 2.0 97.2 10/23/17 07:55 96 Nasal Cannula 3.0 32 10/23/17 07:55 Nasal Cannula 3.0 32 10/23/17 04:00 97.9 74 30 138/77 96 Nasal Cannula 4.0 97.9 10/23/17 03:31 73 10/23/17 00:00 80 10/23/17 00:00 98.0 76 24 129/77 96 Nasal Cannula 4.0 98.0 10/22/17 20:00 98.2 78 26 126/76 97 Nasal Cannula 4.0 98.2 10/22/17 19:35 Nasal Cannula 3.0 32 10/22/17 19:35 96 Nasal Cannula 3.0 32 10/22/17 19:05 80 10/22/17 16:00 97.3 79 32 145/83 98 Nasal Cannula 4.0 97.3 10/22/17 16:00 81 10/22/17 12:00 78 10/22/17 12:00 97.7 80 28 125/66 91 Nasal Cannula 4.0 97.7 Intake and Output 10/22/17 10/23/17 19:00 07:00 Intake Total 2507.416 ml 2325 ml Output Total 701 ml 450 ml Balance 1806.416 ml 1875 ml Free Water 200 ml 200 ml IV Total 1827.416 ml 1725 ml Tube Feeding 480 ml 400 ml Output Urine Total 700 ml 450 ml Stool Total 1 ml # Bowel Movements 2 General Appearance: WD/WN HEENT: normocephalic, atraumatic Respiratory/Chest: lungs clear, normal breath sounds Cardiovascular: normal peripheral pulses, normal rate Abdomen: normal bowel sounds, soft, non tender Skin: no lesions Microbiology Date/Time Source Procedure Growth Status 10/20/17 10:40 Sputum Gram Stain - Final Complete 10/20/17 10:40 Sputum Culture - Final Proteus Mirabilis Pseudomonas Aeruginosa Usual Respiratory Bethany Complete Laboratory Tests 10/23/17 05:45: White Blood Count 10.9H, Red Blood Count 3.64L, Hemoglobin 9.9L, Hematocrit 30.5L, Mean Corpuscular Volume 84, Mean Corpuscular Hemoglobin 27.1, Mean Corpuscular Hemoglobin Concent 32.3, Red Cell Distribution Width 16.3H, Platelet Count 289, Mean Platelet Volume 6.2L, Neutrophils (%) (Auto) 66.6, Lymphocytes (%) (Auto) 25.0, Monocytes (%) (Auto) 4.3, Eosinophils (%) (Auto) 3.9H, Basophils (%) (Auto) 0.3, Sodium Level 146H, Potassium Level 3.4L, Chloride Level 108H, Carbon Dioxide Level 30, Anion Gap 8, Blood Urea Nitrogen 119H, Creatinine 3.4H, Estimat Glomerular Filtration Rate , Glucose Level 164H, Uric Acid 9.1H, Calcium Level 8.6, Phosphorus Level 4.8, Magnesium Level 2.9H, Iron Level 35L, Total Iron Binding Capacity 100L, Percent Iron Saturation 35, Unsaturated Iron Binding 65L, Total Bilirubin 0.2, Aspartate Amino Transf (AST/ SGOT) 159H, Alanine Aminotransferase (ALT/SGPT) 184H, Alkaline Phosphatase 158H , C-Reactive Protein, Quantitative 24.2H, Pro-B-Type Natriuretic Peptide 3982H, Total Protein 7.8, Albumin 1.8L, Globulin 6.0, Albumin/Globulin Ratio 0.3L Current Medications Medications (Trade) Dose Ordered Sig/Keira Route PRN Reason Start Time Stop Time Status Last Admin Dose Admin Acetaminophen (Tylenol) 650 mg Q4H PRN GT Mild Pain/Temp > 100.5 10/20/17 08:21 11/19/17 08:20 Albuterol/ Ipratropium (Albuterol/ Ipratropium) 3 ml Q4H PRN HHN Shortness of Breath 10/20/17 06:30 10/25/17 06:29 Ceftriaxone Sodium 1 gm/ Dextrose 110 ml @ 220 mls/hr Q24H IVPB 10/22/17 15:30 10/29/17 15:29 10/22/17 16:37 Dextrose 1,000 ml @ 150 mls/hr Q6H40M IV 10/22/17 08:30 11/20/17 08:29 10/23/17 04:42 Docusate Sodium (Colace) 100 mg THREE TIMES A DAY GT 10/21/17 18:00 11/20/17 17:59 10/22/17 17:27 Heparin Sodium (Porcine) (Heparin 5000 units/ml) 5,000 units EVERY 12 HOURS SUBQ 10/20/17 09:00 11/19/17 08:59 10/23/17 08:45 Hydralazine HCl (Apresoline) 25 mg Q4H PRN GT systolic bp over 160 10/21/17 14:45 11/20/17 14:44 Nitroglycerin (Ntg) 0.4 mg Q5M PRN SL Prn Chest Pain 10/20/17 06:30 11/19/17 06:29 Ondansetron HCl (Zofran) 4 mg Q6H PRN IVP Nausea & Vomiting 10/20/17 06:30 11/19/17 06:29 Pantoprazole (Protonix) 40 mg EVERY 12 HOURS IVP 10/21/17 21:00 11/20/17 20:59 10/23/17 08:45 Polyethylene Glycol (Miralax) 17 gm DAILYPRN PRN GT Constipation 10/20/17 08:21 11/19/17 08:20 Promethazine HCl/ Codeine (Phenergan with Codeine) 5 ml Q4H PRN GT For Cough 10/20/17 08:21 11/19/17 08:20 Quetiapine Fumarate (SEROquel) 12.5 mg EVERY 6 HOURS PRN GT agitation 10/20/17 23:15 11/19/17 23:14 Dhiraj Holly MD Oct 23, 2017 10:08
--- NOTE | 2017-10-23 11:21 | General Progress Note ---
Assessment/Plan Status: stable, progressing Assessment/Plan encephalopathy agitation dementia -Seroquel 12.5 mg q 6hr prn -dc Seroquel 12.5mg qam Subjective Date patient seen: Oct 23, 2017 Neurologic/Psychiatric: Reports: anxiety Allergies: Coded Allergies: No Known Allergies (Verified , 01/02/09) Subjective the pt is doing well. family in room Objective Last 24 Hour Vital Signs Date Time Temp Pulse Resp B/P (MAP) Pulse Ox O2 Delivery O2 Flow Rate FiO2 10/23/17 08:00 70 10/23/17 08:00 97.2 72 30 151/88 95 Nasal Cannula 2.0 97.2 10/23/17 07:55 96 Nasal Cannula 3.0 32 10/23/17 07:55 Nasal Cannula 3.0 32 10/23/17 04:00 97.9 74 30 138/77 96 Nasal Cannula 4.0 97.9 10/23/17 03:31 73 10/23/17 00:00 80 10/23/17 00:00 98.0 76 24 129/77 96 Nasal Cannula 4.0 98.0 10/22/17 20:00 98.2 78 26 126/76 97 Nasal Cannula 4.0 98.2 10/22/17 19:35 Nasal Cannula 3.0 32 10/22/17 19:35 96 Nasal Cannula 3.0 32 10/22/17 19:05 80 10/22/17 16:00 97.3 79 32 145/83 98 Nasal Cannula 4.0 97.3 10/22/17 16:00 81 10/22/17 12:00 78 10/22/17 12:00 97.7 80 28 125/66 91 Nasal Cannula 4.0 97.7 Intake and Output 10/22/17 10/23/17 19:00 07:00 Intake Total 2507.416 ml 2325 ml Output Total 701 ml 450 ml Balance 1806.416 ml 1875 ml Free Water 200 ml 200 ml IV Total 1827.416 ml 1725 ml Tube Feeding 480 ml 400 ml Output Urine Total 700 ml 450 ml Stool Total 1 ml # Bowel Movements 2 Laboratory Tests 10/23/17 05:45: White Blood Count 10.9H, Red Blood Count 3.64L, Hemoglobin 9.9L, Hematocrit 30.5L, Mean Corpuscular Volume 84, Mean Corpuscular Hemoglobin 27.1, Mean Corpuscular Hemoglobin Concent 32.3, Red Cell Distribution Width 16.3H, Platelet Count 289, Mean Platelet Volume 6.2L, Neutrophils (%) (Auto) 66.6, Lymphocytes (%) (Auto) 25.0, Monocytes (%) (Auto) 4.3, Eosinophils (%) (Auto) 3.9H, Basophils (%) (Auto) 0.3, Sodium Level 146H, Potassium Level 3.4L, Chloride Level 108H, Carbon Dioxide Level 30, Anion Gap 8, Blood Urea Nitrogen 119H, Creatinine 3.4H, Estimat Glomerular Filtration Rate , Glucose Level 164H, Uric Acid 9.1H, Calcium Level 8.6, Phosphorus Level 4.8, Magnesium Level 2.9H, Iron Level 35L, Total Iron Binding Capacity 100L, Percent Iron Saturation 35, Unsaturated Iron Binding 65L, Total Bilirubin 0.2, Aspartate Amino Transf (AST/ SGOT) 159H, Alanine Aminotransferase (ALT/SGPT) 184H, Alkaline Phosphatase 158H , C-Reactive Protein, Quantitative 24.2H, Pro-B-Type Natriuretic Peptide 3982H, Total Protein 7.8, Albumin 1.8L, Globulin 6.0, Albumin/Globulin Ratio 0.3L Height (Feet): 6 Height (Inches): 2.00 Weight (Pounds): 209 General Appearance: WD/WN, no apparent distress, alert, confused Juventino Ochoa M.D. Oct 23, 2017 11:21
[2017-10-23 12:00] VITALS: BP 136/76
--- NOTE | 2017-10-23 12:32 | Infectious Diseases Prog Note ---
Assessment/Plan Assessment/Plan Assessment: Severe Sepsis; improving- likely 2ry to UTI, pancreatitis -u/a wbc tnct, nit neg, leuk +3; ucx >100K K. pna (R cipro/levo,nitro, amp, bactrim, otherwise S) -Bcx NTD -CXR: No definite acute process. Bilateral basilar atelectasis and/or scarring -lipase ~800> 400s -sp cx P. mirabilis I Cipro, otherwise S; PsA I CEftazidime; otherwise S ( likely colonizers, no PNA on CXR) Hypothermia (resolved)/leukocytosis, improving PAN, improving Hyperkalemia- resolved Elevated LFTs, improving Recent Septic shock 2ry to PNA, UTI 09/2017 -Bacteremia with Staph capitis/ contamination -Pneumonia with MDR Acinetobacter (S Tigecycicline, minocycline, Colistin/ polymixin B) & ESBL Proteus -UTI with ESBL Proteus CVA w/ R hemiplegia seizure disorder PUD Dementia renal insufficiency DM bed bound CAD s/p 3v CABG HTN GERD dysphagia s/p GT DNR/DNI NKDA Plan: -COntinue Ceftriaxone abx d#08/23-10 for K.pna UTI based on susceptibility profile -will no cover PsA in sputum unless febrile, increasing WBC, infiltrates in CXR and/or O2 requirements -/6 SP IV Vancomycin #3, Meropenem #3 -6/4 SP IV Cefepime #1, Ceftriaxone x1 -s/p Tygacil>Minocycline/INH Colistin course 09/2017 -f/u cx -Monitor CBC/BMP, temperatures -Trend WBC, LFTs -Cdiff if diarrhea -aspiration precautions -PEG care -wound care/prevention per hospital protocol Thank you for this consultation. Will continue to follow along with you. Discussed with RN Subjective Allergies: Coded Allergies: No Known Allergies (Verified , 01/02/09) Subjective hypothermia resolved leukocytosis improving BCx NTD at 4l NC Objective Vital Signs Last 24 Hour Vital Signs Date Time Temp Pulse Resp B/P (MAP) Pulse Ox O2 Delivery O2 Flow Rate FiO2 10/23/17 08:00 70 10/23/17 08:00 97.2 72 30 151/88 95 Nasal Cannula 2.0 97.2 10/23/17 07:55 96 Nasal Cannula 3.0 32 10/23/17 07:55 Nasal Cannula 3.0 32 10/23/17 04:00 97.9 74 30 138/77 96 Nasal Cannula 4.0 97.9 10/23/17 03:31 73 10/23/17 00:00 80 10/23/17 00:00 98.0 76 24 129/77 96 Nasal Cannula 4.0 98.0 10/22/17 20:00 98.2 78 26 126/76 97 Nasal Cannula 4.0 98.2 10/22/17 19:35 Nasal Cannula 3.0 32 10/22/17 19:35 96 Nasal Cannula 3.0 32 10/22/17 19:05 80 10/22/17 16:00 97.3 79 32 145/83 98 Nasal Cannula 4.0 97.3 10/22/17 16:00 81 Height (Feet): 6 Height (Inches): 2.00 Weight (Pounds): 209 Objective General Appearance: WD/WN Lines, tubes and drains: peripheral HEENT: normocephalic, atraumatic Neck: non-tender, normal alignment Respiratory/Chest: chest wall non-tender, lungs clear Cardiovascular/Chest: normal peripheral pulses Abdomen: normal bowel sounds, non tender Extremities: no rash, cellulitis Laboratory Tests Test 10/23/17 05:45 White Blood Count 10.9 K/UL (4.8-10.8) H Red Blood Count 3.64 M/UL (4.70-6.10) L Hemoglobin 9.9 G/DL (14.2-18.0) L Hematocrit 30.5 % (42.0-52.0) L Mean Corpuscular Volume 84 FL (80-99) Mean Corpuscular Hemoglobin 27.1 PG (27.0-31.0) Mean Corpuscular Hemoglobin Concent 32.3 G/DL (32.0-36.0) Red Cell Distribution Width 16.3 % (11.6-14.8) H Platelet Count 289 K/UL (150-450) Mean Platelet Volume 6.2 FL (6.5-10.1) L Neutrophils (%) (Auto) 66.6 % (45.0-75.0) Lymphocytes (%) (Auto) 25.0 % (20.0-45.0) Monocytes (%) (Auto) 4.3 % (1.0-10.0) Eosinophils (%) (Auto) 3.9 % (0.0-3.0) H Basophils (%) (Auto) 0.3 % (0.0-2.0) Sodium Level 146 MMOL/L (136-145) H Potassium Level 3.4 MMOL/L (3.5-5.1) L Chloride Level 108 MMOL/L (98-107) H Carbon Dioxide Level 30 MMOL/L (21-32) Anion Gap 8 mmol/L (5-15) Blood Urea Nitrogen 119 mg/dL (7-18) H Creatinine 3.4 MG/DL (0.55-1.30) H Estimat Glomerular Filtration Rate mL/min (>60) Glucose Level 164 MG/DL (74-106) H Uric Acid 9.1 MG/DL (2.6-7.2) H Calcium Level 8.6 MG/DL (8.5-10.1) Phosphorus Level 4.8 MG/DL (2.5-4.9) Magnesium Level 2.9 MG/DL (1.8-2.4) H Iron Level 35 ug/dL (50-175) L Total Iron Binding Capacity 100 ug/dL (250-450) L Percent Iron Saturation 35 % (15-50) Unsaturated Iron Binding 65 ug/dL (112-346) L Total Bilirubin 0.2 MG/DL (0.2-1.0) Aspartate Amino Transf (AST/SGOT) 159 U/L (15-37) H Alanine Aminotransferase (ALT/SGPT) 184 U/L (12-78) H Alkaline Phosphatase 158 U/L (46-116) H C-Reactive Protein, Quantitative 24.2 mg/dL (0.00-0.90) H Pro-B-Type Natriuretic Peptide 3982 pg/mL (0-125) H Total Protein 7.8 G/DL (6.4-8.2) Albumin 1.8 G/DL (3.4-5.0) L Globulin 6.0 g/dL Albumin/Globulin Ratio 0.3 (1.0-2.7) L Current Medications Medications (Trade) Dose Ordered Sig/Keira Route PRN Reason Start Time Stop Time Status Last Admin Dose Admin Acetaminophen (Tylenol) 650 mg Q4H PRN GT Mild Pain/Temp > 100.5 10/20/17 08:21 11/19/17 08:20 Albuterol/ Ipratropium (Albuterol/ Ipratropium) 3 ml Q4H PRN HHN Shortness of Breath 10/20/17 06:30 10/25/17 06:29 Ceftriaxone Sodium 1 gm/ Dextrose 110 ml @ 220 mls/hr Q24H IVPB 10/22/17 15:30 10/29/17 15:29 10/22/17 16:37 Dextrose 1,000 ml @ 150 mls/hr Q6H40M IV 10/22/17 08:30 11/20/17 08:29 10/23/17 10:58 Docusate Sodium (Colace) 100 mg THREE TIMES A DAY GT 10/21/17 18:00 11/20/17 17:59 10/22/17 17:27 Heparin Sodium (Porcine) (Heparin 5000 units/ml) 5,000 units EVERY 12 HOURS SUBQ 10/20/17 09:00 11/19/17 08:59 10/23/17 08:45 Hydralazine HCl (Apresoline) 25 mg Q4H PRN GT systolic bp over 160 10/21/17 14:45 11/20/17 14:44 Nitroglycerin (Ntg) 0.4 mg Q5M PRN SL Prn Chest Pain 10/20/17 06:30 11/19/17 06:29 Ondansetron HCl (Zofran) 4 mg Q6H PRN IVP Nausea & Vomiting 10/20/17 06:30 11/19/17 06:29 Pantoprazole (Protonix) 40 mg EVERY 12 HOURS IVP 10/21/17 21:00 11/20/17 20:59 10/23/17 08:45 Polyethylene Glycol (Miralax) 17 gm DAILYPRN PRN GT Constipation 10/20/17 08:21 11/19/17 08:20 Promethazine HCl/ Codeine (Phenergan with Codeine) 5 ml Q4H PRN GT For Cough 10/20/17 08:21 11/19/17 08:20 Quetiapine Fumarate (SEROquel) 12.5 mg EVERY 6 HOURS PRN GT agitation 10/20/17 23:15 11/19/17 23:14 Skyla Cullen M.D. Oct 23, 2017 12:32
--- NOTE | 2017-10-23 14:49 | Nephrology Progress Note ---
Assessment/Plan Problem List: (1) Acute respiratory failure (2) ATN (acute tubular necrosis) (3) Anemia (4) UTI (urinary tract infection) (5) DNR (do not resuscitate) Assessment Acute Renal failure- cr lower ? Underlying CKD Component of dehydration, Pre renal state and Hypernatremia Acute respiratory failure, Aspiartion Pneumonia, UTI Septic H/O Multiple Strokes Anemia Elevated Troponin Hyperglycemia PEG Plan Pulm support Hydrate- BS control avoid nephrotoxics Monitor renal parameters Hemodynamic support urine studies Per orders Subjective ROS Limited/Unobtainable: No Constitutional: Reports: malaise Objective Objective Last 24 Hour Vital Signs Date Time Temp Pulse Resp B/P (MAP) Pulse Ox O2 Delivery O2 Flow Rate FiO2 10/23/17 12:00 72 10/23/17 12:00 98.3 73 30 136/76 98 Nasal Cannula 2.0 98.3 10/23/17 08:00 70 10/23/17 08:00 97.2 72 30 151/88 95 Nasal Cannula 2.0 97.2 10/23/17 07:55 96 Nasal Cannula 3.0 32 10/23/17 07:55 Nasal Cannula 3.0 32 10/23/17 04:00 97.9 74 30 138/77 96 Nasal Cannula 4.0 97.9 10/23/17 03:31 73 10/23/17 00:00 80 10/23/17 00:00 98.0 76 24 129/77 96 Nasal Cannula 4.0 98.0 10/22/17 20:00 98.2 78 26 126/76 97 Nasal Cannula 4.0 98.2 10/22/17 19:35 Nasal Cannula 3.0 32 10/22/17 19:35 96 Nasal Cannula 3.0 32 10/22/17 19:05 80 10/22/17 16:00 97.3 79 32 145/83 98 Nasal Cannula 4.0 97.3 10/22/17 16:00 81 Intake and Output 10/22/17 10/23/17 19:00 07:00 Intake Total 2507.416 ml 2325 ml Output Total 701 ml 450 ml Balance 1806.416 ml 1875 ml Free Water 200 ml 200 ml IV Total 1827.416 ml 1725 ml Tube Feeding 480 ml 400 ml Output Urine Total 700 ml 450 ml Stool Total 1 ml # Bowel Movements 2 Laboratory Tests 10/23/17 05:45: White Blood Count 10.9H, Red Blood Count 3.64L, Hemoglobin 9.9L, Hematocrit 30.5L, Mean Corpuscular Volume 84, Mean Corpuscular Hemoglobin 27.1, Mean Corpuscular Hemoglobin Concent 32.3, Red Cell Distribution Width 16.3H, Platelet Count 289, Mean Platelet Volume 6.2L, Neutrophils (%) (Auto) 66.6, Lymphocytes (%) (Auto) 25.0, Monocytes (%) (Auto) 4.3, Eosinophils (%) (Auto) 3.9H, Basophils (%) (Auto) 0.3, Sodium Level 146H, Potassium Level 3.4L, Chloride Level 108H, Carbon Dioxide Level 30, Anion Gap 8, Blood Urea Nitrogen 119H, Creatinine 3.4H, Estimat Glomerular Filtration Rate , Glucose Level 164H, Uric Acid 9.1H, Calcium Level 8.6, Phosphorus Level 4.8, Magnesium Level 2.9H, Iron Level 35L, Total Iron Binding Capacity 100L, Percent Iron Saturation 35, Unsaturated Iron Binding 65L, Total Bilirubin 0.2, Aspartate Amino Transf (AST/ SGOT) 159H, Alanine Aminotransferase (ALT/SGPT) 184H, Alkaline Phosphatase 158H , C-Reactive Protein, Quantitative 24.2H, Pro-B-Type Natriuretic Peptide 3982H, Total Protein 7.8, Albumin 1.8L, Globulin 6.0, Albumin/Globulin Ratio 0.3L Height (Feet): 6 Height (Inches): 2.00 Weight (Pounds): 209 General Appearance: no apparent distress Respiratory/Chest: decreased breath sounds Abdomen: soft Objective no change ROSE MARY REID Oct 23, 2017 14:49
[2017-10-23] MEDS: cefTRIAXone 1 GM in D5W 110 ML IVPB SCH (15:00)
[2017-10-23 16:00] VITALS: BP 138/76
--- NOTE | 2017-10-23 16:15 | Consultation ---
DATE OF CONSULTATION: 10/23/2017 HEMATOLOGY/ONCOLOGY CONSULTATION CONSULTING PHYSICIAN: Addy Giron M.D. REQUESTING PHYSICIAN: Dhiraj Holly M.D. REASON FOR CONSULTATION: Evaluation of anemia ongoing. IDENTIFYING DATA: Dear Dr. Holly, The patient is a pleasant 87-year-old male, I have seen him multiple times in the past with past medical history significant for dysphagia, status post G-tube, GERD, NSTEMI, status post CABG three-vessel, hyperlipidemia, generalized muscle weakness, vertigo, acute basal stroke affecting the right side, history of seizures, has been on BiPAP, is a DNR/DNI 00:51. The patient recently required intubation given worsening respiratory distress, presents from nursing facility. Titrated FiO2 at 92% on a sliding scale. Hematology Service was consulted given ongoing anemia. PAST MEDICAL HISTORY: As noted above. CVA, renal insufficiency, diabetes, bedbound, recent pneumonia, and intubation. ALLERGIES: No known drug allergies. MEDICATIONS: Multiple noted. Plavix, Colace, Lovenox, lisinopril, hydralazine, metoprolol, and mulitvitamin. PAST SURGICAL HISTORY: PEG tube. FAMILY HISTORY: Noncontributory. REVIEW OF SYSTEMS: Difficult to obtain given the patient's mental status. PHYSICAL EXAMINATION: VITAL SIGNS: Reviewed. GENERAL: No acute distress. CHEST: Bilateral decreased breath sounds. Some crackles at the bases. The patient on BiPAP. CARDIOVASCULAR: Regular rate. No S3 and S4 noted. ABDOMEN: Soft, nontender, and nondistended. Status post PEG tube. EXTREMITIES: 1+ edema. LABORATORY AND DIAGNOSTIC DATA: WBC 10.9, hemoglobin 9.9, hematocrit 31, and platelet count 289,000. Chemistry reviewed, BUN of 119, creatinine 3.4 relatively stable. Iron 35. Ferritin most recently 1600. Total 02:32. ASSESSMENT AND RECOMMENDATIONS: 1. 02:37 serum protein electrophoresis, resolved. Continue to monitor 02:42. 2. Anemia of chronic disease. Continue to closely monitor. 3. Anemia due to underlying kidney disease. Closely monitor 02:54 to underlying infection. Closely monitor as necessary in case it improves. Currently has not been receiving any steroids. No recent steroids. 4. Dysphagia, status post PEG tube. 5. History of hypertension. 6. Severe protein-caloric malnutrition. 7. Cerebrovascular accident with complete right hemiparesis. I appreciate the consultation. Addy Giron M.D. DR: NAGI JOB#: [id number] CC:
[2017-10-23 20:00] VITALS: BP 147/76
[2017-10-24] VITALS: BP 147/77
[2017-10-24 04:00] VITALS: BP 144/90
[2017-10-24 06:40] LABS: BASOPHILS % (AUTO) 0.6 % (0.0-2.0); EOSINOPHILS % (AUTO) 4.1 % (0.0-3.0); HEMATOCRIT 30.5 % (42.0-52.0); HEMOGLOBIN 9.5 G/DL (14.2-18.0); LYMPHOCYTES % (AUTO) 26.3 % (20.0-45.0); MEAN CORPUSCULAR VOLUME 83 FL (80-99); MONOCYTES % (AUTO) 4.5 % (1.0-10.0); NEUTROPHILS % (AUTO) 64.5 % (45.0-75.0); PLATELET COUNT 289 K/UL (150-450); RED CELL DISTRIBUTION WIDTH 16.6 % (11.6-14.8)
[2017-10-24 07:00] LABS: ALANINE AMINOTRANSFERASE 145 U/L (12-78); ALBUMIN 1.7 G/DL (3.4-5.0); ALBUMIN/GLOBULIN RATIO 0.3 (1.0-2.7); ALKALINE PHOSPHATASE 145 U/L (46-116); ANION GAP 7 mmol/L (5-15); ASPARTATE AMINO TRANSFERASE 111 U/L (15-37); BILIRUBIN,TOTAL 0.2 MG/DL (0.2-1.0); BLOOD UREA NITROGEN 102 mg/dL (7-18); CALCIUM 8.7 MG/DL (8.5-10.1); CARBON DIOXIDE 29 MMOL/L (21-32); CHLORIDE 104 MMOL/L (98-107); CREATININE 2.9 MG/DL (0.55-1.30); PHOSPHORUS 4.1 MG/DL (2.5-4.9); POTASSIUM 3.4 MMOL/L (3.5-5.1); SODIUM 140 MMOL/L (136-145)
[2017-10-24 08:00] VITALS: BP 149/91
[2017-10-24] MEDS: Docusate 100mg/10ml Liq GT SCH ×2 (08:46→13:05)
[2017-10-24] MEDS: Pantoprazole Inj IVP SCH (08:46)
[2017-10-24] MEDS: Heparin 5000 units/ml inj SUBQ SCH (08:47)
[2017-10-24] MEDS ORDERED: Tubing IV Secondary IV ONE (09:41)
--- NOTE | 2017-10-24 09:51 | Infectious Diseases Prog Note ---
Assessment/Plan Assessment/Plan Assessment: Severe Sepsis; resolving- likely 2ry to UTI, pancreatitis -u/a wbc tnct, nit neg, leuk +3; ucx >100K K. pna (R cipro/levo,nitro, amp, bactrim, otherwise S) -Bcx NTD -CXR: No definite acute process. Bilateral basilar atelectasis and/or scarring -lipase ~800> 400s -sp cx P. mirabilis I Cipro, otherwise S; PsA I CEftazidime; otherwise S ( likely colonizers, no PNA on CXR) Hypothermia /leukocytosis, resolved PAN, improving Hyperkalemia- resolved Elevated LFTs, improving Recent Septic shock 2ry to PNA, UTI 09/2017 -Bacteremia with Staph capitis/ contamination -Pneumonia with MDR Acinetobacter (S Tigecycicline, minocycline, Colistin/ polymixin B) & ESBL Proteus -UTI with ESBL Proteus CVA w/ R hemiplegia seizure disorder PUD Dementia renal insufficiency DM bed bound CAD s/p 3v CABG HTN GERD dysphagia s/p GT DNR/DNI NKDA Plan: -COntinue Ceftriaxone abx d#09/22-10 for K.pna UTI based on susceptibility profile -will no cover PsA in sputum unless febrile, increasing WBC, infiltrates in CXR and/or O2 requirements -/ SP IV Vancomycin #3, Meropenem #3 -/4 SP IV Cefepime #1, Ceftriaxone x1 -s/p Tygacil>Minocycline/INH Colistin course 09/2017 -f/u cx -Monitor CBC/BMP, temperatures -Trend WBC, LFTs -Cdiff if diarrhea -aspiration precautions -PEG care -wound care/prevention per hospital protocol Thank you for this consultation. Will continue to follow along with you. Discussed with RN Subjective Allergies: Coded Allergies: No Known Allergies (Verified , 01/02/09) Subjective afebrile leukocytosis resolved BCx NTD LFts improving Objective Vital Signs Last 24 Hour Vital Signs Date Time Temp Pulse Resp B/P (MAP) Pulse Ox O2 Delivery O2 Flow Rate FiO2 10/24/17 08:00 77 10/24/17 08:00 98.9 76 21 149/91 99 Nasal Cannula 3.0 98.9 10/24/17 06:30 98 Nasal Cannula 3.0 32 10/24/17 06:30 Nasal Cannula 3.0 32 10/24/17 04:00 98.2 68 20 144/90 97 Nasal Cannula 3.0 98.2 10/24/17 04:00 79 10/24/17 00:00 80 10/24/17 00:00 97.7 80 18 147/77 97 Nasal Cannula 3.0 97.7 10/23/17 20:00 82 10/23/17 20:00 97.2 76 20 147/76 98 Nasal Cannula 3.0 97.2 10/23/17 19:49 Nasal Cannula 3.0 32 10/23/17 19:49 98 Nasal Cannula 3.0 32 10/23/17 16:00 98.3 78 30 138/76 98 Nasal Cannula 3.0 98.3 10/23/17 16:00 72 10/23/17 12:00 72 10/23/17 12:00 98.3 73 30 136/76 98 Nasal Cannula 2.0 98.3 Height (Feet): 6 Height (Inches): 2.00 Weight (Pounds): 209 Objective General Appearance: WD/WN Lines, tubes and drains: peripheral HEENT: normocephalic, atraumatic Neck: non-tender, normal alignment Respiratory/Chest: chest wall non-tender, lungs clear Cardiovascular/Chest: normal peripheral pulses Abdomen: normal bowel sounds, non tender Extremities: no rash, cellulitis Laboratory Tests Test 10/24/17 05:45 White Blood Count 10.0 K/UL (4.8-10.8) Red Blood Count 3.70 M/UL (4.70-6.10) L Hemoglobin 9.5 G/DL (14.2-18.0) L Hematocrit 30.5 % (42.0-52.0) L Mean Corpuscular Volume 83 FL (80-99) Mean Corpuscular Hemoglobin 25.7 PG (27.0-31.0) L Mean Corpuscular Hemoglobin Concent 31.2 G/DL (32.0-36.0) L Red Cell Distribution Width 16.6 % (11.6-14.8) H Platelet Count 289 K/UL (150-450) Mean Platelet Volume 6.3 FL (6.5-10.1) L Neutrophils (%) (Auto) 64.5 % (45.0-75.0) Lymphocytes (%) (Auto) 26.3 % (20.0-45.0) Monocytes (%) (Auto) 4.5 % (1.0-10.0) Eosinophils (%) (Auto) 4.1 % (0.0-3.0) H Basophils (%) (Auto) 0.6 % (0.0-2.0) Sodium Level 140 MMOL/L (136-145) Potassium Level 3.4 MMOL/L (3.5-5.1) L Chloride Level 104 MMOL/L (98-107) Carbon Dioxide Level 29 MMOL/L (21-32) Anion Gap 7 mmol/L (5-15) Blood Urea Nitrogen 102 mg/dL (7-18) H Creatinine 2.9 MG/DL (0.55-1.30) H Estimat Glomerular Filtration Rate mL/min (>60) Glucose Level 157 MG/DL (74-106) H Calcium Level 8.7 MG/DL (8.5-10.1) Phosphorus Level 4.1 MG/DL (2.5-4.9) Magnesium Level 2.7 MG/DL (1.8-2.4) H Total Bilirubin 0.2 MG/DL (0.2-1.0) Aspartate Amino Transf (AST/SGOT) 111 U/L (15-37) H Alanine Aminotransferase (ALT/SGPT) 145 U/L (12-78) H Alkaline Phosphatase 145 U/L (46-116) H Total Protein 7.6 G/DL (6.4-8.2) Albumin 1.7 G/DL (3.4-5.0) L Globulin 5.9 g/dL Albumin/Globulin Ratio 0.3 (1.0-2.7) L Current Medications Medications (Trade) Dose Ordered Sig/Keira Route PRN Reason Start Time Stop Time Status Last Admin Dose Admin Acetaminophen (Tylenol) 650 mg Q4H PRN GT Mild Pain/Temp > 100.5 10/20/17 08:21 11/19/17 08:20 Albuterol/ Ipratropium (Albuterol/ Ipratropium) 3 ml Q4H PRN HHN Shortness of Breath 10/20/17 06:30 10/25/17 06:29 Ceftriaxone Sodium 1 gm/ Dextrose 110 ml @ 220 mls/hr Q24H IVPB 10/22/17 15:30 10/29/17 15:29 10/23/17 15:00 Dextrose 1,000 ml @ 150 mls/hr Q6H40M IV 10/22/17 08:30 11/20/17 08:29 10/24/17 06:58 Docusate Sodium (Colace) 100 mg THREE TIMES A DAY GT 10/21/17 18:00 11/20/17 17:59 10/24/17 08:46 Heparin Sodium (Porcine) (Heparin 5000 units/ml) 5,000 units EVERY 12 HOURS SUBQ 10/20/17 09:00 11/19/17 08:59 10/24/17 08:47 Hydralazine HCl (Apresoline) 25 mg Q4H PRN GT systolic bp over 160 10/21/17 14:45 11/20/17 14:44 Nitroglycerin (Ntg) 0.4 mg Q5M PRN SL Prn Chest Pain 10/20/17 06:30 11/19/17 06:29 Ondansetron HCl (Zofran) 4 mg Q6H PRN IVP Nausea & Vomiting 10/20/17 06:30 11/19/17 06:29 Pantoprazole (Protonix) 40 mg EVERY 12 HOURS IVP 10/21/17 21:00 11/20/17 20:59 10/24/17 08:46 Polyethylene Glycol (Miralax) 17 gm DAILYPRN PRN GT Constipation 10/20/17 08:21 11/19/17 08:20 Promethazine HCl/ Codeine (Phenergan with Codeine) 5 ml Q4H PRN GT For Cough 10/20/17 08:21 11/19/17 08:20 Quetiapine Fumarate (SEROquel) 12.5 mg EVERY 6 HOURS PRN GT agitation 10/20/17 23:15 11/19/17 23:14 Skyla Cullen M.D. Oct 24, 2017 09:51
[2017-10-24] MEDS ORDERED: CEFTRIAXONE1 G1 IJ (11:27)
--- NOTE | 2017-10-24 11:29 | Pulmonology Progress Note ---
Assessment/Plan Problems: (1) Acute respiratory failure (2) Sepsis (3) UTI (urinary tract infection) (4) Decubital ulcer (5) s/p multiple lacunar strokes, old (6) Diabetes mellitus (7) DNR (do not resuscitate) (8) Feeding by G-tube Assessment/Plan improvng wbc normal titrate fio2 to sat of 92% continue abx, wbc decreasing , two more days of ceftriaxone bun/creatinine decreasing f/u electrolytes sliding scale, insulin coverage wound care dvt prophylaxis. Subjective ROS Limited/Unobtainable: Yes Allergies: Coded Allergies: No Known Allergies (Verified , 01/02/09) Objective Last 24 Hour Vital Signs Date Time Temp Pulse Resp B/P (MAP) Pulse Ox O2 Delivery O2 Flow Rate FiO2 10/24/17 08:00 77 10/24/17 08:00 98.9 76 21 149/91 99 Nasal Cannula 3.0 98.9 10/24/17 06:30 98 Nasal Cannula 3.0 32 10/24/17 06:30 Nasal Cannula 3.0 32 10/24/17 04:00 98.2 68 20 144/90 97 Nasal Cannula 3.0 98.2 10/24/17 04:00 79 10/24/17 00:00 80 10/24/17 00:00 97.7 80 18 147/77 97 Nasal Cannula 3.0 97.7 10/23/17 20:00 82 10/23/17 20:00 97.2 76 20 147/76 98 Nasal Cannula 3.0 97.2 10/23/17 19:49 Nasal Cannula 3.0 32 10/23/17 19:49 98 Nasal Cannula 3.0 32 10/23/17 16:00 98.3 78 30 138/76 98 Nasal Cannula 3.0 98.3 10/23/17 16:00 72 10/23/17 12:00 72 10/23/17 12:00 98.3 73 30 136/76 98 Nasal Cannula 2.0 98.3 Intake and Output 10/23/17 10/24/17 19:00 07:00 Intake Total 2000 ml 2305 ml Output Total 1000 ml 1200 ml Balance 1000 ml 1105 ml Free Water 200 ml IV Total 1610 ml 1625 ml Tube Feeding 360 ml 480 ml Other 30 ml Output Urine Total 1000 ml 1200 ml # Bowel Movements 2 3 General Appearance: WD/WN HEENT: normocephalic, anicteric Respiratory/Chest: chest wall non-tender, lungs clear Abdomen: normal bowel sounds, soft, non tender Genitourinary: normal external genitalia Extremities: no clubbing Skin: no lesions Laboratory Tests 10/24/17 05:45: White Blood Count 10.0, Red Blood Count 3.70L, Hemoglobin 9.5L, Hematocrit 30.5L , Mean Corpuscular Volume 83, Mean Corpuscular Hemoglobin 25.7L, Mean Corpuscular Hemoglobin Concent 31.2L, Red Cell Distribution Width 16.6H, Platelet Count 289, Mean Platelet Volume 6.3L, Neutrophils (%) (Auto) 64.5, Lymphocytes (%) (Auto) 26.3, Monocytes (%) (Auto) 4.5, Eosinophils (%) (Auto) 4.1H, Basophils (%) (Auto) 0.6, Sodium Level 140, Potassium Level 3.4L, Chloride Level 104, Carbon Dioxide Level 29, Anion Gap 7, Blood Urea Nitrogen 102H, Creatinine 2.9H, Estimat Glomerular Filtration Rate , Glucose Level 157H, Calcium Level 8.7, Phosphorus Level 4.1, Magnesium Level 2.7H, Total Bilirubin 0.2, Aspartate Amino Transf (AST/SGOT) 111H, Alanine Aminotransferase (ALT/SGPT ) 145H, Alkaline Phosphatase 145H, Total Protein 7.6, Albumin 1.7L, Globulin 5.9 , Albumin/Globulin Ratio 0.3L Current Medications Medications (Trade) Dose Ordered Sig/Keira Route PRN Reason Start Time Stop Time Status Last Admin Dose Admin Acetaminophen (Tylenol) 650 mg Q4H PRN GT Mild Pain/Temp > 100.5 10/20/17 08:21 11/19/17 08:20 Albuterol/ Ipratropium (Albuterol/ Ipratropium) 3 ml Q4H PRN HHN Shortness of Breath 10/20/17 06:30 10/25/17 06:29 Ceftriaxone Sodium 1 gm/ Dextrose 110 ml @ 220 mls/hr Q24H IVPB 10/22/17 15:30 10/29/17 15:29 10/23/17 15:00 Dextrose 1,000 ml @ 150 mls/hr Q6H40M IV 10/22/17 08:30 11/20/17 08:29 10/24/17 06:58 Docusate Sodium (Colace) 100 mg THREE TIMES A DAY GT 10/21/17 18:00 11/20/17 17:59 10/24/17 08:46 Heparin Sodium (Porcine) (Heparin 5000 units/ml) 5,000 units EVERY 12 HOURS SUBQ 10/20/17 09:00 11/19/17 08:59 10/24/17 08:47 Hydralazine HCl (Apresoline) 25 mg Q4H PRN GT systolic bp over 160 10/21/17 14:45 11/20/17 14:44 Nitroglycerin (Ntg) 0.4 mg Q5M PRN SL Prn Chest Pain 10/20/17 06:30 11/19/17 06:29 Ondansetron HCl (Zofran) 4 mg Q6H PRN IVP Nausea & Vomiting 10/20/17 06:30 11/19/17 06:29 Pantoprazole (Protonix) 40 mg EVERY 12 HOURS IVP 10/21/17 21:00 11/20/17 20:59 10/24/17 08:46 Polyethylene Glycol (Miralax) 17 gm DAILYPRN PRN GT Constipation 10/20/17 08:21 11/19/17 08:20 Promethazine HCl/ Codeine (Phenergan with Codeine) 5 ml Q4H PRN GT For Cough 10/20/17 08:21 11/19/17 08:20 Quetiapine Fumarate (SEROquel) 12.5 mg EVERY 6 HOURS PRN GT agitation 10/20/17 23:15 11/19/17 23:14 Dhiraj Holly MD Oct 24, 2017 11:29
--- NOTE | 2017-10-24 11:31 | General Progress Note ---
Assessment/Plan Status: stable Assessment/Plan 1. Anemia of kidneysease, also elevated protein and albumin decreased thus have sent for serum protein electrophoresis, results pending --> ok to dc and f/u results as outpatient --> hgb goal is >7 2. Anemia of chronic disease. Continue to closely monitor. 3. Anemia due to underlying kidney disease. Closely monitor as necessary in case it improves. --> cr stable at time of dc 4. Dysphagia, status post PEG tube. 5. History of hypertension. 6. Severe protein-caloric malnutrition. 7. Cerebrovascular accident with complete right hemiparesis. Subjective Date patient seen: Oct 24, 2017 Constitutional: Denies: no symptoms, chills, diaphoresis, fever, malaise, weakness, other HEENT: Denies: no symptoms, eye pain, blurred vision, tearing, double vision, ear pain, ear discharge, nose pain, nose congestion, throat pain, throat swelling, mouth pain, mouth swelling, other Cardiovascular: Denies: no symptoms, chest pain, edema, irregular heart rate, lightheadedness, palpitations, syncope, other Respiratory: Denies: no symptoms, cough, orthopnea, shortness of breath, SOB with excertion, SOB at rest, sputum, stridor, wheezing, other Gastrointestinal/Abdominal: Denies: no symptoms, abdomen distended, abdominal pain, black stools, tarry stools, blood in stool, constipated, diarrhea, difficulty swallowing, nausea, poor appetite, poor fluid intake, rectal bleeding , vomiting, other Genitourinary: Denies: no symptoms, burning, discharge, frequency, flank pain, hematuria, incontinence, pain, urgency, other Neurologic/Psychiatric: Denies: no symptoms, anxiety, depressed, emotional problems, headache, numbness, paresthesia, pre-existing deficit, seizure, tingling, tremors, weakness, other Endocrine: Denies: no symptoms, excessive sweating, flushing, intolerance to cold, intolerance to heat, increased hunger, increased thirst, increased urine, unexplained weight gain, unexplained weight loss, other Hematologic/Lymphatic: Denies: no symptoms, anemia, easy bleeding, easy bruising, other Allergies: Coded Allergies: No Known Allergies (Verified , 01/02/09) All Systems: reviewed and negative except above Subjective Pt on court recording monitor. No overnight events. No fever, chills, sob. Objective Last 24 Hour Vital Signs Date Time Temp Pulse Resp B/P (MAP) Pulse Ox O2 Delivery O2 Flow Rate FiO2 10/24/17 08:00 77 10/24/17 08:00 98.9 76 21 149/91 99 Nasal Cannula 3.0 98.9 10/24/17 06:30 98 Nasal Cannula 3.0 32 10/24/17 06:30 Nasal Cannula 3.0 32 10/24/17 04:00 98.2 68 20 144/90 97 Nasal Cannula 3.0 98.2 10/24/17 04:00 79 10/24/17 00:00 80 10/24/17 00:00 97.7 80 18 147/77 97 Nasal Cannula 3.0 97.7 10/23/17 20:00 82 10/23/17 20:00 97.2 76 20 147/76 98 Nasal Cannula 3.0 97.2 10/23/17 19:49 Nasal Cannula 3.0 32 10/23/17 19:49 98 Nasal Cannula 3.0 32 10/23/17 16:00 98.3 78 30 138/76 98 Nasal Cannula 3.0 98.3 10/23/17 16:00 72 10/23/17 12:00 72 10/23/17 12:00 98.3 73 30 136/76 98 Nasal Cannula 2.0 98.3 Intake and Output 10/23/17 10/24/17 19:00 07:00 Intake Total 2000 ml 2305 ml Output Total 1000 ml 1200 ml Balance 1000 ml 1105 ml Free Water 200 ml IV Total 1610 ml 1625 ml Tube Feeding 360 ml 480 ml Other 30 ml Output Urine Total 1000 ml 1200 ml # Bowel Movements 2 3 Laboratory Tests 10/24/17 05:45: White Blood Count 10.0, Red Blood Count 3.70L, Hemoglobin 9.5L, Hematocrit 30.5L , Mean Corpuscular Volume 83, Mean Corpuscular Hemoglobin 25.7L, Mean Corpuscular Hemoglobin Concent 31.2L, Red Cell Distribution Width 16.6H, Platelet Count 289, Mean Platelet Volume 6.3L, Neutrophils (%) (Auto) 64.5, Lymphocytes (%) (Auto) 26.3, Monocytes (%) (Auto) 4.5, Eosinophils (%) (Auto) 4.1H, Basophils (%) (Auto) 0.6, Sodium Level 140, Potassium Level 3.4L, Chloride Level 104, Carbon Dioxide Level 29, Anion Gap 7, Blood Urea Nitrogen 102H, Creatinine 2.9H, Estimat Glomerular Filtration Rate , Glucose Level 157H, Calcium Level 8.7, Phosphorus Level 4.1, Magnesium Level 2.7H, Total Bilirubin 0.2, Aspartate Amino Transf (AST/SGOT) 111H, Alanine Aminotransferase (ALT/SGPT ) 145H, Alkaline Phosphatase 145H, Total Protein 7.6, Albumin 1.7L, Globulin 5.9 , Albumin/Globulin Ratio 0.3L Height (Feet): 6 Height (Inches): 2.00 Weight (Pounds): 209 General Appearance: no apparent distress EENT: PERRL/EOMI Neck: supple Cardiovascular: normal peripheral pulses Respiratory/Chest: normal breath sounds Abdomen: normal bowel sounds, other - + peg Addy Giron MD Oct 24, 2017 11:31
--- NOTE | 2017-10-24 11:34 | General Progress Note ---
Assessment/Plan Assessment/Plan encephalopathy agitation dementia -Seroquel 12.5 mg q 6hr prn -dc Seroquel 12.5mg qam Subjective Date patient seen: Oct 24, 2017 Neurologic/Psychiatric: Reports: anxiety, depressed Allergies: Coded Allergies: No Known Allergies (Verified , 01/02/09) Subjective the pt is doing well. Objective Last 24 Hour Vital Signs Date Time Temp Pulse Resp B/P (MAP) Pulse Ox O2 Delivery O2 Flow Rate FiO2 10/24/17 08:00 77 10/24/17 08:00 98.9 76 21 149/91 99 Nasal Cannula 3.0 98.9 10/24/17 06:30 98 Nasal Cannula 3.0 32 10/24/17 06:30 Nasal Cannula 3.0 32 10/24/17 04:00 98.2 68 20 144/90 97 Nasal Cannula 3.0 98.2 10/24/17 04:00 79 10/24/17 00:00 80 10/24/17 00:00 97.7 80 18 147/77 97 Nasal Cannula 3.0 97.7 10/23/17 20:00 82 10/23/17 20:00 97.2 76 20 147/76 98 Nasal Cannula 3.0 97.2 10/23/17 19:49 Nasal Cannula 3.0 32 10/23/17 19:49 98 Nasal Cannula 3.0 32 10/23/17 16:00 98.3 78 30 138/76 98 Nasal Cannula 3.0 98.3 10/23/17 16:00 72 10/23/17 12:00 72 10/23/17 12:00 98.3 73 30 136/76 98 Nasal Cannula 2.0 98.3 Intake and Output 10/23/17 10/24/17 19:00 07:00 Intake Total 2000 ml 2305 ml Output Total 1000 ml 1200 ml Balance 1000 ml 1105 ml Free Water 200 ml IV Total 1610 ml 1625 ml Tube Feeding 360 ml 480 ml Other 30 ml Output Urine Total 1000 ml 1200 ml # Bowel Movements 2 3 Laboratory Tests 10/24/17 05:45: White Blood Count 10.0, Red Blood Count 3.70L, Hemoglobin 9.5L, Hematocrit 30.5L , Mean Corpuscular Volume 83, Mean Corpuscular Hemoglobin 25.7L, Mean Corpuscular Hemoglobin Concent 31.2L, Red Cell Distribution Width 16.6H, Platelet Count 289, Mean Platelet Volume 6.3L, Neutrophils (%) (Auto) 64.5, Lymphocytes (%) (Auto) 26.3, Monocytes (%) (Auto) 4.5, Eosinophils (%) (Auto) 4.1H, Basophils (%) (Auto) 0.6, Sodium Level 140, Potassium Level 3.4L, Chloride Level 104, Carbon Dioxide Level 29, Anion Gap 7, Blood Urea Nitrogen 102H, Creatinine 2.9H, Estimat Glomerular Filtration Rate , Glucose Level 157H, Calcium Level 8.7, Phosphorus Level 4.1, Magnesium Level 2.7H, Total Bilirubin 0.2, Aspartate Amino Transf (AST/SGOT) 111H, Alanine Aminotransferase (ALT/SGPT ) 145H, Alkaline Phosphatase 145H, Total Protein 7.6, Albumin 1.7L, Globulin 5.9 , Albumin/Globulin Ratio 0.3L Height (Feet): 6 Height (Inches): 2.00 Weight (Pounds): 209 General Appearance: no apparent distress, alert, confused Juventino Ochoa M.D. Oct 24, 2017 11:34
[2017-10-24 12:00] VITALS: BP 144/94
--- NOTE | 2017-10-24 12:43 | Nephrology Progress Note ---
Assessment/Plan Problem List: (1) Acute respiratory failure (2) ATN (acute tubular necrosis) (3) Anemia (4) UTI (urinary tract infection) (5) DNR (do not resuscitate) Assessment Acute Renal failure- cr lower ? Underlying CKD Component of dehydration, Pre renal state and Hypernatremia Acute respiratory failure, Aspiartion Pneumonia, UTI Septic H/O Multiple Strokes Anemia Elevated Troponin Hyperglycemia PEG Plan add Norvasc Pulm support Hydrate- BS control avoid nephrotoxics Monitor renal parameters Hemodynamic support urine studies Per orders Subjective ROS Limited/Unobtainable: No Constitutional: Reports: malaise Objective Objective Last 24 Hour Vital Signs Date Time Temp Pulse Resp B/P (MAP) Pulse Ox O2 Delivery O2 Flow Rate FiO2 10/24/17 08:00 77 10/24/17 08:00 98.9 76 21 149/91 99 Nasal Cannula 3.0 98.9 10/24/17 06:30 98 Nasal Cannula 3.0 32 10/24/17 06:30 Nasal Cannula 3.0 32 10/24/17 04:00 98.2 68 20 144/90 97 Nasal Cannula 3.0 98.2 10/24/17 04:00 79 10/24/17 00:00 80 10/24/17 00:00 97.7 80 18 147/77 97 Nasal Cannula 3.0 97.7 10/23/17 20:00 82 10/23/17 20:00 97.2 76 20 147/76 98 Nasal Cannula 3.0 97.2 10/23/17 19:49 Nasal Cannula 3.0 32 10/23/17 19:49 98 Nasal Cannula 3.0 32 10/23/17 16:00 98.3 78 30 138/76 98 Nasal Cannula 3.0 98.3 10/23/17 16:00 72 Intake and Output 10/23/17 10/24/17 19:00 07:00 Intake Total 2000 ml 2305 ml Output Total 1000 ml 1200 ml Balance 1000 ml 1105 ml Free Water 200 ml IV Total 1610 ml 1625 ml Tube Feeding 360 ml 480 ml Other 30 ml Output Urine Total 1000 ml 1200 ml # Bowel Movements 2 3 Laboratory Tests 10/24/17 05:45: White Blood Count 10.0, Red Blood Count 3.70L, Hemoglobin 9.5L, Hematocrit 30.5L , Mean Corpuscular Volume 83, Mean Corpuscular Hemoglobin 25.7L, Mean Corpuscular Hemoglobin Concent 31.2L, Red Cell Distribution Width 16.6H, Platelet Count 289, Mean Platelet Volume 6.3L, Neutrophils (%) (Auto) 64.5, Lymphocytes (%) (Auto) 26.3, Monocytes (%) (Auto) 4.5, Eosinophils (%) (Auto) 4.1H, Basophils (%) (Auto) 0.6, Sodium Level 140, Potassium Level 3.4L, Chloride Level 104, Carbon Dioxide Level 29, Anion Gap 7, Blood Urea Nitrogen 102H, Creatinine 2.9H, Estimat Glomerular Filtration Rate , Glucose Level 157H, Calcium Level 8.7, Phosphorus Level 4.1, Magnesium Level 2.7H, Total Bilirubin 0.2, Aspartate Amino Transf (AST/SGOT) 111H, Alanine Aminotransferase (ALT/SGPT ) 145H, Alkaline Phosphatase 145H, Total Protein 7.6, Albumin 1.7L, Globulin 5.9 , Albumin/Globulin Ratio 0.3L Height (Feet): 6 Height (Inches): 2.00 Weight (Pounds): 209 General Appearance: no apparent distress Respiratory/Chest: decreased breath sounds Abdomen: soft Objective no change ROSE MARY REID Oct 24, 2017 12:43
[2017-10-24 13:05] VITALS: BP 144/94
[2017-10-24] MEDS: cefTRIAXone 1 GM in D5W 110 ML IVPB SCH (15:30)
--- NOTE | 2017-10-27 07:54 | Discharge Summary ---
Discharge Summary Discharge Summary _ DATE OF ADMISSION: 10/20/2017 DATE OF DISCHARGE: 10/24/2017 REASON FOR ADMISSION: 87 years old male with past medical history significant for CVA with right- sided hemiplegia, dementia, chronic kidney disease, diabetes mellitus , HTN, history of recent septic shock with pneumonia and intubation ,status post extubation ,coronary artery disease, status post CABG with 3 vessels, dysphagia G-tube, bedbound, was sent from the long term facility for evaluation due to shortness of breath and hypoxia. Patient with DNR/DNI status. Patient initially required placement on nonrebreathing mask and subsequently changed to BiPAP. Initial ABG revealed hypoxemia and hypercapnia on 50% Venturi mask. Vital signs revealed low grade fever and tachycardia up to 125. Leukocytosis, WBC -19. Urinalysis with evidence of UTI. Chest x-ray revealed atelectasis and /or scarring of the both lung bases. Otherwise no definite acute process. Sodium- 154 potassium -5.6 BUN -117 ,creatinine -2.9 . EKG revealed sinus tachycardia, no acute ischemic changes. troponin elevated - 0.138. Hemoglobin -12.7 hematocrit -42.7. AST 245 ALT 272 lipase 857. Septic workup initiated . Patient admitted to [facility] with diagnosis of acute respiratory failure, sepsis, urinary tract infection, possible pneumonia, elevated troponin, acute kidney injury, dysphagia G-tube , diabetes mellitus , history of CVA with right hemiplegia, elevated LFT, hyperkalemia, hypernatremia , hypertension, sacral pressure ulcer. CONSULTANTS: ID specialist Dr. Barnes electrotype molder Dr. Duarte gold blower/oncologist Dr. Giron psychiatrist Internal medicine [facility] COURSE: Patient admitted to [facility]. Patient initially was on BiPAP. BiPAP settings were titrated to keep pulse oximetry above 90%. Pulmonary toilet provided. Follow- up chest x-ray revealed no changes. Infectious disease specialist closely followed. Sputum culture revealed Proteus and Pseudomonas, possible colonizer as per ID suggestion; urine culture revealed Klebsiella ,blood cultures were negative. Patient was on IV antibiotics under ID specialist directions. Leukocytosis resolved. Patient to complete antibiotic at the long term facility as per infectious disease specialist recommendations. Patient was hydrated . Member Of Technical Staff closely followed. Electrolytes were closely monitored and corrected as needed, renal parameters were closely monitored, nephrotoxic were avoided. According to electrotype molder , patient had acute tubular necrosis on underlying chronic kidney disease stage III. Patient had element of dehydration with prerenal state and hypernatremia . Creatinine back to baseline and electrolytes stable prior to discharge Antiplatelet therapy was continued. Troponin minimally elevated, second troponin trending down. EKG revealed sinus tachycardia , but no acute ischemic changes . Troponin levels were minimally elevated and flat, and presentation was not consistent with acute coronary syndrome. Elevated troponin was likely secondary to acute tubular necrosis, troponin trending down. Patient was not a candidate for any invasive procedure, given multiple comorbidities and poor overall prognosis. Blood pressure was managed with calcium channel coy and remained stable. Strict aspiration precautions were maintained. G-tube feeding tolerance was closely monitored, patient was able to tolerate G-tube feeding. Nutritional recommendation implemented in plan of care. DVT and GI prophylaxis provided .Blood sugar was managed with sliding scale insulin, hemoglobin A1c 6.4 at goal. LFT and lipase were closely monitored ,trending down. Hepatitis panel on previous admission was negative. Elevated LFT were likely secondary to sepsis. Acute encephalopathy on chronic underlying dementia was likely due to sepsis and acute kidney injury. Wound care provided as per protocol for sacral decubitus ulcer present on admission. Laboratory workup further the course revealed evidence of anemia. Anemia workup revealed anemia of chronic disease. Foundry Engineer closely followed. Hemoglobin and hematocrit were closely monitored with goal to keep hemoglobin above 7. no need for transfusion. Per gold blower , patient had anemia of chronic kidney disease. Psychiatrist closely followed and diagnosed patient with encephalopathy, dementia and agitation . Psychiatrist optimized psychiatric medication regimen. Leukocytosis resolved, patient stabilized. Patient was able to be weaned from BiPAP. Pulse oximetry stable on oxygen via nasal cannula. Patient was stable for discharge back to long term facility FINAL DIAGNOSES Acute hypoxemic respiratory failure Sepsis Urinary tract infection with Klebsiella Possible healthcare associated pneumonia Elevated troponin Acute tubular necrosis on underlying chronic kidney disease stage III Acute toxic and metabolic encephalopathy Electrolyte imbalances; hypernatremia hyperkalemia secondary to dehydration Elevated LFT Dysphagia, G-tube Diabetes mellitus History of CVA with right hemiplegia Functional quadriplegia Coronary artery disease status post three-vessel CABG Hypertension Dementia Anemia of chronic kidney disease Severe protein calorie malnutrition DISCHARGE MEDICATIONS: See Medication Reconciliation list. DISCHARGE INSTRUCTIONS: Patient was discharged to long term facility. Follow up with medical doctor at the facility. I have been assigned to dictate discharge summary for this account. I was not involved in the patient's management. Melia Rees NP Oct 27, 2017 07:54
--- NOTE | 2017-10-27 13:35 | Cardiology Report ---
APPROVED REPORT EKG Measurement Heart [id number] Sinus tachycardia with premature ventricular complexes or fusion complexes Left axis deviation Left bundle branch block Abnormal ECG
== END 2017-10-24 15:48 | DRG 871 ==
LOC: EDBD 03:07 → EMR 03:31 → 2W 03:50 → EDBEDREQ 04:04
PROC: 5A09457 Assistance with Respiratory Ventilation, 24-96 Consecutive Hours, Continuous Positive Airway Pressure (ICD-10-PCS; principal; 2017-10-20)
DX: A41.9 Sepsis, unspecified organism (principal); G92 Toxic encephalopathy; E43 Unspecified severe protein-calorie malnutrition; R53.2 Functional quadriplegia; J96.01 Acute respiratory failure with hypoxia; J18.9 Pneumonia, unspecified organism; G93.41 Metabolic encephalopathy; N17.0 Acute kidney failure with tubular necrosis; N39.0 Urinary tract infection, site not specified; I69.351 Hemiplegia and hemiparesis following cerebral infarction affecting right dominant side; E87.0 Hyperosmolality and hypernatremia; Z43.1 Encounter for attention to gastrostomy; B96.1 Klebsiella pneumoniae [K. pneumoniae] as the cause of diseases classified elsewhere; I12.9 Hypertensive chronic kidney disease with stage 1 through stage 4 chronic kidney disease, or unspecified chronic kidney disease; E11.22 Type 2 diabetes mellitus with diabetic chronic kidney disease; N18.3 Chronic kidney disease, stage 3 (moderate); I25.10 Atherosclerotic heart disease of native coronary artery without angina pectoris; Z95.1 Presence of aortocoronary bypass graft; E87.5 Hyperkalemia; E86.0 Dehydration; R13.10 Dysphagia, unspecified; F03.90 Unspecified dementia, unspecified severity, without behavioral disturbance, psychotic disturbance, mood disturbance, and anxiety; D63.1 Anemia in chronic kidney disease; Z66 Do not resuscitate; Z79.01 Long term (current) use of anticoagulants; I25.2 Old myocardial infarction; E78.5 Hyperlipidemia, unspecified; R65.20 Severe sepsis without septic shock; E11.65 Type 2 diabetes mellitus with hyperglycemia; Z79.4 Long term (current) use of insulin
CPT/HCPCS: 36415; 36600; 71045; 80053; 80061; 80069; 80202; 81003; 82140; 82533; 82550; 82553; 82607; 82728; 82746; 82803; 82977; 83036; 83540; 83550; 83605; 83690; 83735; 83880; 84100; 84300; 84443; 84484; 84550; 85025; 86140; 87040; 87070; 87086; 87181; 87205; 93005; 94660; 94664; 94760; 99285; 99291; J7620; J8499

== ENCOUNTER 2017-11-21 21:05 | Inpatient (IN) | payer MEDICARE, MEDICAID ==
[~2017-11-21] VITALS: Ht 182.9 cm; Wt 85.7 kg
[~2017-11-21 21:05] MED LIST changes: +CEFTRIAXONE1 G1 IJ; +IMODIUM A-1 MG/7.5 M PO; +QUETIAPINE FUMA25 MG ORAL
[2017-11-21] MEDS ORDERED: Albuterol ud Inhalation HHN ONE (21:15)
--- NOTE | 2017-11-21 21:15 | Emergency Room Report ---
History of Present Illness General Chief Complaint: Dyspnea/Respdistress Source: Medical Record, EMS Present Illness HPI This is an unfortunate 87-year-old Afro-[place] male who resided [facility]. He has multiple medical problem including CVA with right-sided hemiplegia. He has high blood pressure, diabetes. Baseline he is bed bound, obtunded on 4 L oxygen. He presents with chief complaint of rest or distress and shortness of breath. Per EMS, oxidation at 88% on 4 L. He appear to be in respiratory distress. Unable to get any history from this patient. He was just discharged from [facility] a few days ago. No fever or chills. History of aspiration pneumonia. 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 Hx Cancer: No Hx Gastrointestinal Problems: Yes - dysphagia, G-tube, PUD 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, affecting right dominant side Hx Seizures: Yes Hx Vertigo: Yes Hx Weakness: Yes Review of Systems Respiratory: Reports: cough, shortness of breath All Other Systems: limited - secondary to patient condition Physical Exam Vital Signs Date Time Temp Pulse Resp B/P (MAP) Pulse Ox O2 Delivery O2 Flow Rate FiO2 11/21/17 20:58 80 24 118/78 90 Non-Rebreather 15.0 vitals with hypoxia Sp02 EP Interpretation: abnormal General Appearance: moderate distress, Stupor Head: normocephalic, atraumatic Eyes: bilateral eye PERRL ENT: dry mucus membranes Neck: full range of motion, supple, no meningismus Respiratory: chest non-tender, respiratory distress, decreased breath sounds, rhonchi Cardiovascular #1: regular rate, rhythm, no murmur Gastrointestinal: normal bowel sounds, non tender, no mass, no organomegaly, no bruit, non-distended, other - G-tube Musculoskeletal: non-tender Neurologic: other - Right-sided weakness, chronic Skin: warm/dry Procedures Critical Care Time Critical Care Time Critical care is mandated in this patient who presented with respiratory distress from infection. Patient require my urgent intervention to attenuate the risks of metabolic collapse which may lead to cardiovascular collapse and . Critical care time is 35 minutes excluding any reportable procedure. Critical care time included evaluation, multiple reevaluation, looking at old charts, interpreting laboratory and diagnostic data, discussing case with patient and family and consultants, and charting. Medical Decision Making Diagnostic Impression: Primary Impression: Acute respiratory failure Qualified Codes: J96.01 - Acute respiratory failure with hypoxia Additional Impressions: Acute encephalopathy HCAP (healthcare-associated pneumonia) UTI (urinary tract infection) Qualified Codes: N30.00 - Acute cystitis without hematuria ACS (acute coronary syndrome) ARF (acute renal failure) Qualified Codes: N17.9 - Acute kidney failure, unspecified ER Course Patient with respiratory distress. Chest x-rays show right lower lobe infiltrate versus effusion. He grew out Pseudomonas and Klebsiella in his sputum last month. There were sensitive to Levaquin and Zosyn. I put him on these 2 medication. Vital signs of and stable. Prognosis is poor. Other differential include ACS, PE, dissection, pneumonia, CHF to name a few. I discussed the case with Dr. Melvin who was in the ER. He will admit for Dr. Shaw, with whom I also discussed the case. Lab Results Impression labs showed elevated BUN/creatinine EKG Diagnostic Results Rate: normal Rhythm: NSR ST Segments: other - LBBB Rhythm Strip Diag. Results Rhythm Strip Time: 21:15 EP Interpretation: yes Rate: 79 Rhythm: NSR, no PVC's, no ectopy Chest X-Ray Diagnostic Results Chest X-Ray Diagnostic Results : Chest X-Ray Ordered: Yes # of Views/Limited/Complete: 1 View Indication: Shortness of Breath EP Interpretation: Yes Interpretation: no pneumothorax, other - CM, right lower lobe infiltrate vs effusion Impression: Other - RLL infiltrate Electronically Signed by: Barrie Francois MD Last Vital Signs Date Time Temp Pulse Resp B/P (MAP) Pulse Ox O2 Delivery O2 Flow Rate FiO2 11/21/17 20:58 80 24 118/78 90 Non-Rebreather 15.0 Status: improved Disposition: ADMITTED INPATIENT Condition: Serious BARRIE FRANCOIS M.D. Nov 21, 2017 21:15
[2017-11-21 21:35] VITALS: BP 128/74
[2017-11-21 21:48] LABS: BASOPHILS % (AUTO) 0.3 % (0.0-2.0); EOSINOPHILS % (AUTO) 1.8 % (0.0-3.0); HEMOGLOBIN 12.2 G/DL (14.2-18.0); MEAN CORPUSCULAR VOLUME 85 FL (80-99); MONOCYTES % (AUTO) 6.2 % (1.0-10.0); NEUTROPHILS % (AUTO) 66.6 % (45.0-75.0); PLATELET COUNT 319 K/UL (150-450); RED BLOOD COUNT 4.71 M/UL (4.70-6.10); RED CELL DISTRIBUTION WIDTH 17.5 % (11.6-14.8)
[2017-11-21 21:59] LABS: ANION GAP 6 mmol/L (5-15); BLOOD UREA NITROGEN 48 mg/dL (7-18); CALCIUM 9.6 MG/DL (8.5-10.1); CARBON DIOXIDE 34 MMOL/L (21-32); CHLORIDE 107 MMOL/L (98-107); CREATININE 2.2 MG/DL (0.55-1.30); INR 1.1 (0.9-1.1); POTASSIUM 4.1 MMOL/L (3.5-5.1); SODIUM 147 MMOL/L (136-145)
[2017-11-21] MEDS ORDERED: Piperacillin/Tazobactam 4.5 GM in NS 110 ML IVPB ONE (22:00)
[2017-11-21 22:15] LABS: ALANINE AMINOTRANSFERASE 34 U/L (12-78); ALBUMIN 2.1 G/DL (3.4-5.0); ALBUMIN/GLOBULIN RATIO 0.3 (1.0-2.7); ALKALINE PHOSPHATASE 85 U/L (46-116); ASPARTATE AMINO TRANSFERASE 35 U/L (15-37); BILIRUBIN,TOTAL 0.2 MG/DL (0.2-1.0); CKMB 3.8 NG/ML (0.0-3.6); CREATINE KINASE 88 U/L (26-308)
--- NOTE | 2017-11-21 22:47 | Diagnostic Imaging Report ---
EXAM: XR Chest, 1 View CLINICAL HISTORY: SOB TECHNIQUE: Frontal view of the chest. COMPARISON: 10/22/79 FINDINGS: Elevated right hemidiaphragm. Large amount of gas in the bowel. Cardiomegaly. No definite infiltrate or pneumothorax. IMPRESSION: Gaseous distention of upper abdominal bowel loops. This was not seen on the prior film. Consider CT correlation.
[2017-11-21 23:35] VITALS: BP 122/70
[2017-11-21 23:55] LABS: APPEARANCE,URINE SLIGHTLY CLOUDY; BILIRUBIN, URINE NEGATIVE (NEGATIVE); GLUCOSE, URINE (UA) NEGATIVE (NEGATIVE); KETONES,URINE NEGATIVE (NEGATIVE); LEUKOCYTE ESTERASE ,URINE 2+ (NEGATIVE); NITRITE,URINE NEGATIVE (NEGATIVE); PH,URINE 5 (4.5-8.0); PROTEIN,URINE 3+ (NEGATIVE); UROBILINOGEN,URINE NORMAL MG/DL (0.0-1.0)
[2017-11-21 23:57] LABS: COLOR,URINE YELLOW
[2017-11-21] MEDS ORDERED: FUROSEMIDE40 MG GT (23:58)
[2017-11-21] MEDS ORDERED: MIRALAX17 G2 ORAL (23:58)
[2017-11-22] MEDS ORDERED: Zosyn 4.5gm inj ONE (00:31)
[2017-11-22 01:35] VITALS: BP 111/70
[2017-11-22] MEDS ORDERED: NEPRO CARB STE237 ML PO (01:54)
[2017-11-22] MEDS ORDERED: TRAMADOL HCL50 MG GT (01:54)
[2017-11-22 04:00] VITALS: BP 102/67
[2017-11-22] MEDS ORDERED: Docusate 100mg cap ORAL PRN (08:30)
[2017-11-22] MEDS ORDERED: HydrALAZINE 10mg Tab GT PRN (08:45)
[2017-11-22] MEDS: Heparin 5000 units/ml inj SUBQ SCH ×2 (09:59→20:46)
[2017-11-22] MEDS ORDERED: Albuterol/Ipratropium 3ml neb HHN PRN (10:00)
--- NOTE | 2017-11-22 10:00 | Consultation ---
Consult Note Assessment/Plan DICT # [id number] Sagar Melvin MD Nov 22, 2017 10:00
[2017-11-22] MEDS: Aspirin EC 81mg tab ORAL SCH (10:01)
[2017-11-22] MEDS: Carvedilol 25mg Tab ORAL SCH (10:01)
[2017-11-22] MEDS: Albuterol/Ipratropium 3ml neb HHN SCH ×2 (13:51→19:54)
[2017-11-22] MEDS: Piperacillin/Tazobactam 3.375 GM in NS 110 ML IVPB SCH ×2 (13:51→21:19)
[2017-11-22 16:55] LABS: ANION GAP 7 mmol/L (5-15); BLOOD UREA NITROGEN 57 mg/dL (7-18); CALCIUM 9.1 MG/DL (8.5-10.1); CARBON DIOXIDE 33 MMOL/L (21-32); CHLORIDE 110 MMOL/L (98-107); CREATININE 2.5 MG/DL (0.55-1.30); POTASSIUM 4.1 MMOL/L (3.5-5.1); SODIUM 149 MMOL/L (136-145)
--- NOTE | 2017-11-22 18:15 | Consultation ---
DATE OF CONSULTATION: 11/22/2017 PULMONARY CONSULTATION CONSULTING PHYSICIAN: Sagar Melvin M.D. REFERRING PHYSICIAN: Cesario Brewster M.D. REASON FOR CONSULTATION: Respiratory failure. HISTORY OF PRESENT ILLNESS: The patient is a very unfortunate 87-year-old male with history of CVA, aphasia, dysphagia, status post G-tube, anemia, hypertension, urinary retention, and multiple recent hospitalizations, discharged from [facility] four days ago after he was admitted with acute on chronic hypoxemic respiratory failure. He has had recent pneumonia and prolonged intubation at [facility] [place] as well as recent Dermabacter hominis bacteremia and fungal cystitis. Nonetheless, the patient was discharged back to his correction. He presented to the ER overnight with alteration of mental status and shortness of breath. He was 88% on 4 L. He was felt to be in respiratory distress, so brought in. Since arriving at [place], his T-max has been 99.6. He has been on nonrebreather and in fact was not placed on BiPAP overnight. He should be on nocturnal BiPAP. His laboratory evaluation showed white count of 14. His CBC on the day of discharge from [facility], his white count was at 8.83, so he was started based on his previous sensitivities on Zosyn and Levaquin in the emergency department and admitted for further management. PAST MEDICAL HISTORY: 1. Chronic hypercapnic and hypoxemic respiratory failure. 2. Respiratory muscle weakness. 3. CHF with diastolic dysfunction. 4. CKD. 5. GI bleed in the past. 6. CVA with organic brain syndrome. 7. History of dysphagia, status post G-tube. 8. BPH. 9. Urinary retention. MEDICATIONS: Prior to admission medications reviewed. Current medications reviewed. ALLERGIES: No known drug allergies. SOCIAL HISTORY: He has 18 children. They are very supportive. He is a correction resident. FAMILY HISTORY: Noncontributory. REVIEW OF SYSTEMS: Unobtainable. PHYSICAL EXAMINATION: VITAL SIGNS: Temperature 99, pulse 81, blood pressure 111/70, respiratory rate 29, and saturating 100% on 15 L nonrebreather. GENERAL: He is an elderly nonverbal male. HEENT: Normocephalic and atraumatic. Oropharynx is clear. NECK: Supple without lymphadenopathy. CHEST: Scattered, coarse. HEART: Regular. ABDOMEN: Benign. G-tube clean, dry, and intact. EXTREMITIES: No cyanosis, clubbing, or edema. ANCILLARY DATA: White count 14, hemoglobin 12, and platelet count 319,000. ABG, 7.49/49/60/31/90. INR 1.1. Sodium 147, potassium 02:40, chloride 107, bicarbonate 34, BUN 40, creatinine 2.2. Glucose 127. LFTs within normal limits. CK 3.8, troponin 0.103, proBNP 7688. Total protein 9, albumin 2.1. Urinalysis, moderate bacteria, 2+ leukocyte esterase. Cultures are pending. Chest x-ray done in the emergency department and reviewed by myself shows no infiltrate. ASSESSMENT: The patient is an 87-year-old male with history of CVA, aphasia, dysphagia, status post G-tube, anemia, hypertension, urinary retention, multiple recent hospitalizations, and chronic hypercapnic and hypoxemic respiratory failure, admitted with worsening shortness of breath, noted to have a UTI plus or minus pneumonic infiltrate. PROBLEM LIST: 1. Systemic inflammatory response syndrome. 2. Recurrent UTI. 3. Chronic hypercapnic and hypoxemic respiratory failure. 4. Respiratory muscle weakness. 5. Recent pneumonia and prolonged intubation. 6. Recent Dermabacter hominis bacteremia. 7. Recent fungal cystitis. 8. CHF with diastolic dysfunction. 9. CKD. 10. Anemia. 11. History of GI bleed. 12. History of CVA with organic brain syndrome. 13. Dysphagia, status post G-tube. TREATMENT PLAN: 1. Optimize pulmonary hygiene/mobilize as tolerated. 2. BiPAP 17/5 p.r.n. and nightly. 3. Titrate down FiO2 to keep saturations greater than 90%. 4. [id number]-[id number] and p.r.n. DuoNebs. 5. Suctioning as able. 6. Start Zosyn. 7. Follow up cultures. 8. ID evaluation. 9. Tube feeds once stable, off of BiPAP. 10. Monitor volumes and renal function. 11. DVT prophylaxis, heparin subcutaneous. 12. DNR/DNI. Sagar Melvin M.D. DR: ANNA JOB#: [id number] CC:
[2017-11-22 20:00] VITALS: BP 92/55
[2017-11-22] MEDS ORDERED: Atorvastatin 80mg tab GT SCH (21:00)
--- NOTE | 2017-11-22 23:55 | History & Physical ---
History and Physical History & Physicial full note dictated STACI CHACON Nov 22, 2017 23:55
[2017-11-23] VITALS (8 sets, daily range): BP systolic 98–110; BP diastolic 53–63
[2017-11-23] MEDS: Albuterol/Ipratropium 3ml neb HHN SCH ×4 (01:09→19:14)
[2017-11-23] MEDS: Piperacillin/Tazobactam 3.375 GM in NS 110 ML IVPB SCH ×2 (05:39→19:44)
[2017-11-23 08:11] LABS: BASOPHILS % (AUTO) 0.3 % (0.0-2.0); EOSINOPHILS % (AUTO) 0.3 % (0.0-3.0); HEMATOCRIT 33.8 % (42.0-52.0); HEMOGLOBIN 10.7 G/DL (14.2-18.0); LYMPHOCYTES % (AUTO) 21.5 % (20.0-45.0); MEAN CORPUSCULAR VOLUME 85 FL (80-99); MONOCYTES % (AUTO) 6.5 % (1.0-10.0); NEUTROPHILS % (AUTO) 71.3 % (45.0-75.0); PLATELET COUNT 292 K/UL (150-450); RED BLOOD COUNT 3.95 M/UL (4.70-6.10); RED CELL DISTRIBUTION WIDTH 16.9 % (11.6-14.8); WHITE BLOOD COUNT 14.9 K/UL (4.8-10.8)
[2017-11-23 08:24] LABS: ANION GAP 9 mmol/L (5-15); BLOOD UREA NITROGEN 67 mg/dL (7-18); CALCIUM 8.8 MG/DL (8.5-10.1); CARBON DIOXIDE 33 MMOL/L (21-32); CHLORIDE 107 MMOL/L (98-107); CREATININE 3.3 MG/DL (0.55-1.30); POTASSIUM 3.5 MMOL/L (3.5-5.1); SODIUM 148 MMOL/L (136-145)
[2017-11-23] MEDS: Carvedilol 25mg Tab ORAL SCH (09:00)
[2017-11-23] MEDS: Aspirin EC 81mg tab ORAL SCH (09:16)
[2017-11-23] MEDS: Heparin 5000 units/ml inj SUBQ SCH ×2 (09:18→21:33)
[2017-11-23] MEDS: Furosemide 40mg tab ORAL SCH (09:21)
[2017-11-23] MEDS ORDERED: Sterile Water Irrig 1000ml IRRIG ONE (11:47)
--- NOTE | 2017-11-23 12:13 | Consultation ---
Consult Note Consult Note asked to evaluate for rising Cr Cr 2.2 up to 3.3 This is an unfortunate 87-year-old Afro-[place] male who resided [facility]. He has multiple medical problem including CVA with right-sided hemiplegia. He has high blood pressure, diabetes. Baseline he is bed bound, obtunded on 4 L oxygen. He presents with chief complaint of rest or distress and shortness of breath. Per EMS, oxidation at 88% on 4 L. He appear to be in respiratory distress. Unable to get any history from this patient. He was just discharged from [facility] a few days ago. No fever or chills. History of aspiration pneumonia. No Known Allergies (Verified , 01/02/09) Hx Hypertension: Yes - long-term use of anticoagulants Hx Gastrointestinal Problems: Yes - dysphagia, G-tube, PUD 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, affecting right dominant side Hx Seizures: Yes Hx Vertigo: Yes Hx Weakness: Yes Assessment/Plan (1) Acute respiratory failure, Pneumonia and UTI (2) ATN (acute tubular necrosis), with underlying CKD (3) Anemia (4) UTI (urinary tract infection) (5) DNR (do not resuscitate) (6) Acute Encephalopathy, s/p Multiple strokes (7) PEG (8) HyperGlycemia Plan: Pulm support Hydrate as possible - BS control avoid nephrotoxics Monitor renal parameters Hemodynamic support urine studies Per orders ROSE MARY REID Nov 23, 2017 12:13
[2017-11-23] MEDS ORDERED: HydrALAZINE 10mg Tab GT PRN (12:30)
[2017-11-23] MEDS: Docusate 100mg/10ml Liq GT SCH ×2 (12:53→17:56)
[2017-11-23] MEDS: Pantoprazole Inj IVP SCH ×2 (12:53→21:32)
--- NOTE | 2017-11-23 15:12 | Consultation ---
History of Present Illness General Date patient seen: Nov 23, 2017 Chief Complaint: Dyspnea/Respdistress Present Illness HPI 87 y/o M with hx of DM, HTN, CAD s/p 3v CABG, CVA/TIA w/ R side hemiplegia, ESBL UTI, MDR PNA, PUD, CKD, Seizure disorder, urinary retention, multiple hospitalizations, Dysphagia s/p GT, Aspiration PNA, bedbound, dementia, NH resident presents to ED on 11/21 with respiratory distress and SOB. Per EMS, found to have SaO2 88% at 4L NC. No report of fever, chills Here Tm 100.6, WBC 14 Of note, patient recently discharged form [facility]. Over there was found to Dermabacter hominis bacteremia and fungal cystitis. Upon discharge WBC 8 Also recently admitted hre on 10/20-10/24 for respiratory distress and hypoxia, requiring Bipap, severe sepsis. Foudn to have K. pna UTI, pancreatitis Also on 09/19-10/08 with fever, septic shock. Found to have S. capitis bacteremia , ESBL proteus in urine, PNA with MDR A. baumanni and ESBL Proteus. Initially treated with Vanco and Zosyn> Tygacil and finished course with Minocycline and INH colistin. Allergies: Coded Allergies: No Known Allergies (Verified , 01/02/09) Medication History Scheduled Acetaminophen (Acetaminophen), 650 MG GT EVERY 4 HOURS, (Reported) Amino Acids/Protein Hydrolys (Pro-Stat Liquid), 30 ML GT DAILY, (Reported) Amlodipine Besylate (Norvasc), 5 MG ORAL BID, (Reported) Amlodipine Besylate* (Amlodipine Besylate*), 10 MG GT DAILY, (Reported) Arginine/Ascorbate Sod/Romina AC (Arginaid Powder), 1 EACH PO BID, (Reported) Ascorbic Acid* (Vitamin C*), 500 MG GT DAILY, (Reported) Ascorbic Acid* (Vitamin C*), 500 MG GT DAILY, (Reported) Aspirin* (Aspirin*), 81 MG GT DAILY, (Reported) Atorvastatin Calcium* (Atorvastatin Calcium*), 80 MG GT BEDTIME, (Reported) Bacitracin Zinc (Bacitracin Zinc), 1 APPLIC TP THREE TIMES A DAY, (Reported) Carvedilol (Coreg), 25 MG GT EVERY 12 HOURS, (Reported) Ceftriaxone Sodium (Ceftriaxone), 1 GM IJ DAILY Chlorhexidine Gluconate (Chlorhexidine Gluconate), 2,000 ML MC DAILY, (Reported) Clonidine Hcl* (Catapres*), 0.1 MG GT DAILY, (Reported) Clopidogrel Bisulfate* (Plavix*), 75 MG GT DAILY, (Reported) Docusate Sodium* (Colace*), 100 MG GT DAILY, (Reported) Enoxaparin* (Lovenox*), 40 MG SUBQ DAILY, (Reported) Epoetin Sathish (Epogen), 7,000 UNIT SUBQ 3XW, (Reported) Famotidine (Famotidine), 20 MG ORAL TWICE A DAY, (Reported) Finasteride* (Proscar*), 5 MG GT DAILY, (Reported) Furosemide* (Lasix*), 40 MG GT DAILY, (Reported) Gel Base No.41 (Hydrogel), 1 APPLIC TOPIC DAILY, (Reported) Heparin Sod (Porcine) (Heparin Sodium*), 5,000 UNITS SUBQ EVERY 12 HOURS, ( Reported) Hydralazine HCl (Hydralazine HCl), 25 MG GT Q8HR, (Reported) Hydralazine Hcl (Hydralazine Hcl), 20 MG GT Q6HR, (Reported) Hydralazine Hcl* (Hydralazine Hcl*), 50 MG GT Q8HR Insulin Aspart* (Novolog*), 0 SUBQ Q6HR, (Reported) Lisinopril* (Lisinopril*), 40 MG GT DAILY, (Reported) Lorazepam (Lorazepam), 1 MG IV Q4H, (Reported) Metoprolol Tartrate (Metoprolol Tartrate), 12.5 MG GT Q12HR Metoprolol Tartrate* (Metoprolol Tartrate*), 25 MG GT EVERY 12 HOURS, (Reported) Multivitamin With Minerals (Multivitamins With Minerals*), 1 TAB GT DAILY, ( Reported) Nut.tx.impaired Renal Fxn,Soy (Nepro Carb Steady), 237 ML PO DAILY, (Reported) Pantoprazole* (Protonix*), 40 MG IVP EVERY 12 HOURS, (Reported) Polyethylene Glycol 3350* (Miralax*), 17 GM ORAL DAILY, (Reported) Quetiapine Fumarate* (Seroquel*), 12.5 MG ORAL DAILY, (Reported) Ranitidine Hcl* (Zantac*), 150 MG ORAL TWICE A DAY, (Reported) Tamsulosin HCl (Flomax), 0.8 MG GT DAILY, (Reported) Vitamin A & D (Vitamin A & D Ointment), 1 APPLIC TOPIC DAILY, (Reported) Zinc Sulfate (Zinc Sulfate*), 220 MG GT DAILY, (Reported) Scheduled PRN Bisacodyl* (Dulcolax*), 10 MG RECTAL ONCE PRN for Constipation, (Reported) Diphenhydramine Hcl* (Benadryl*), 25 MG ORAL Q8HR PRN for Itching, (Reported) Ipratropium [place] 0.5MG/2.5ML (Ipratropium [place] 0.5MG/2.5ML), 0.5 MG HHN Q4HR PRN for Shortness of Breath, (Reported) Ipratropium/Albuterol Sulfate (DuoNeb 0.5-3(2.5)mg/3ml), 3 ML HHN EVERY 4 HOURS PRN for Shortness of Breath, (Reported) Ondansetron* (Zofran*), 4 MG IV Q6H PRN for Nausea & Vomiting, (Reported) Ondansetron* (Zofran*), 4 MG GT Q6H PRN for Nausea & Vomiting, (Reported) Polyethylene Glycol 3350* (Miralax*), 17 GM ORAL DAILY PRN for Constipation, ( Reported) Potassium Chloride (Potassium Chloride), 20 MEQ ORAL DAILY PRN for Abdominal cramps, (Reported) Tramadol Hcl* (Ultram*), 50 MG GT Q6H PRN for For Pain, (Reported) Miscellaneous Medications Loperamide Hcl (Imodium A-D), 2 MG PO, (Reported) [d5w 50c 3d] Patient History Healthcare decision maker Resuscitation status Do Not Resuscitate Advanced Directive on File Patient History Narrative PMhx: as above: Shx: No smoking. He has 18 children. They are very supportive. He is a halfway resident. Fhx: non contributory Review of Systems ROS Narrative unable to obtain Physical Exam Physical Exam Narrative GENERAL: He is an elderly nonverbal male. HEENT: Normocephalic and atraumatic. Oropharynx is clear. NECK: Supple without lymphadenopathy. CHEST: Scattered, coarse. HEART: Regular. ABDOMEN: Benign. G-tube clean, dry, and intact. EXTREMITIES: No cyanosis, clubbing, or edema. Last 24 Hour Vital Signs Date Time Temp Pulse Resp B/P (MAP) Pulse Ox O2 Delivery O2 Flow Rate FiO2 11/23/17 13:28 75 42 95 Bi-pap 40 11/23/17 13:19 52 36 92 Bi-pap 40 11/23/17 13:15 59 32 92 Facial 40 11/23/17 12:00 76 11/23/17 11:39 76 46 90 Facial 40 11/23/17 11:38 97.3 77 41 102/53 (69) 99 97.3 11/23/17 10:57 72 44 93 Facial 40 11/23/17 09:00 75 106/57 11/23/17 09:00 75 106/57 11/23/17 09:00 Non-Rebreather 15.0 11/23/17 08:29 78 110/57 (74) 11/23/17 08:08 78 20 99/57 (71) 98 11/23/17 08:00 97.5 78 20 99/57 (71) 98 97.5 11/23/17 08:00 78 11/23/17 07:36 74 20 95 Bi-pap 40 11/23/17 07:33 Bi-pap 40 11/23/17 07:33 94 Bi-pap 40 11/23/17 07:30 74 16 94 Facial 40 11/23/17 07:29 72 16 94 Bi-pap 40 11/23/17 05:45 72 33 96 Facial 40 11/23/17 04:00 97.6 75 16 98/62 (74) 94 97.6 11/23/17 04:00 72 11/23/17 03:38 73 27 95 Facial 40 11/23/17 01:33 72 94 Facial 40 11/23/17 01:30 74 33 94 Bi-pap 40 11/23/17 01:29 74 26 92 Non-Rebreather 15.0 100 11/23/17 00:00 75 11/23/17 00:00 97.3 75 16 101/63 (76) 92 97.3 11/22/17 21:00 Non-Rebreather 15.0 11/22/17 20:11 67 24 92 Non-Rebreather 15.0 100 11/22/17 20:00 97.7 74 16 92/55 (67) 93 97.7 11/22/17 20:00 74 11/22/17 19:59 93 Non-Rebreather 15.0 100 11/22/17 19:59 Non-Rebreather 15.0 100 11/22/17 19:55 73 28 92 Non-Rebreather 15.0 100 11/22/17 18:15 87 107/63 11/22/17 17:22 99.1 11/22/17 16:23 100.6 11/22/17 16:00 85 Intake and Output 11/22/17 11/23/17 19:00 07:00 Intake Total 148 ml Output Total 300 ml Balance -152 ml IV Total 148 ml Output Urine Total 300 ml # Bowel Movements 4 Laboratory Tests Test 11/22/17 16:15 11/23/17 07:40 Sodium Level 149 MMOL/L (136-145) H 148 MMOL/L (136-145) H Potassium Level 4.1 MMOL/L (3.5-5.1) 3.5 MMOL/L (3.5-5.1) Chloride Level 110 MMOL/L (98-107) H 107 MMOL/L (98-107) Carbon Dioxide Level 33 MMOL/L (21-32) H 33 MMOL/L (21-32) H Anion Gap 7 mmol/L (5-15) 9 mmol/L (5-15) Blood Urea Nitrogen 57 mg/dL (7-18) H 67 mg/dL (7-18) H Creatinine 2.5 MG/DL (0.55-1.30) H 3.3 MG/DL (0.55-1.30) H Estimat Glomerular Filtration Rate mL/min (>60) mL/min (>60) Glucose Level 132 MG/DL (74-106) H 210 MG/DL (74-106) H Calcium Level 9.1 MG/DL (8.5-10.1) 8.8 MG/DL (8.5-10.1) White Blood Count 14.9 K/UL (4.8-10.8) H Red Blood Count 3.95 M/UL (4.70-6.10) L Hemoglobin 10.7 G/DL (14.2-18.0) L Hematocrit 33.8 % (42.0-52.0) L Mean Corpuscular Volume 85 FL (80-99) Mean Corpuscular Hemoglobin 27.0 PG (27.0-31.0) Mean Corpuscular Hemoglobin Concent 31.6 G/DL (32.0-36.0) L Red Cell Distribution Width 16.9 % (11.6-14.8) H Platelet Count 292 K/UL (150-450) Mean Platelet Volume 6.6 FL (6.5-10.1) Neutrophils (%) (Auto) 71.3 % (45.0-75.0) Lymphocytes (%) (Auto) 21.5 % (20.0-45.0) Monocytes (%) (Auto) 6.5 % (1.0-10.0) Eosinophils (%) (Auto) 0.3 % (0.0-3.0) Basophils (%) (Auto) 0.3 % (0.0-2.0) C-Reactive Protein, Quantitative > 70.0 mg/dL (0.00-0.90) H Height (Feet): 6 Height (Inches): 0.00 Weight (Pounds): 190 Medications Current Medications Medications (Trade) Dose Ordered Sig/Keira Route PRN Reason Start Time Stop Time Status Last Admin Dose Admin Acetaminophen (Tylenol) 650 mg Q4H PRN ORAL Mild Pain/Temp > 100.5 11/22/17 16:00 12/22/17 15:59 11/22/17 16:23 Albuterol/ Ipratropium (Albuterol/ Ipratropium) 3 ml Q4H PRN HHN Shortness of Breath 11/22/17 10:00 11/27/17 09:59 Albuterol/ Ipratropium (Albuterol/ Ipratropium) 3 ml Q6HRT HHN 11/22/17 13:00 11/27/17 12:59 11/23/17 13:21 Aspirin (Ecotrin) 81 mg DAILY ORAL 11/22/17 09:00 12/22/17 08:59 11/23/17 09:16 Carvedilol (Coreg) 6.25 mg Q12HR ORAL 11/23/17 21:00 12/23/17 20:59 Clopidogrel Bisulfate (Plavix) 75 mg DAILY GT 11/22/17 09:00 12/22/17 08:59 11/23/17 09:16 Dextrose (Dextrose 50%) 25 ml STAT PRN IV Hypoglycemia 11/23/17 12:30 12/23/17 12:29 Dextrose (Dextrose 50%) 50 ml STAT PRN IV Hypoglycemia 11/23/17 12:30 12/23/17 12:29 Docusate Sodium (Colace) 100 mg TID GT 11/23/17 13:00 12/23/17 12:59 11/23/17 12:53 Furosemide (Lasix) 40 mg DAILY ORAL 11/23/17 09:00 12/23/17 08:59 11/23/17 09:21 Heparin Sodium (Porcine) (Heparin 5000 units/ml) 5,000 units EVERY 12 HOURS SUBQ 11/22/17 09:00 12/22/17 08:59 11/23/17 09:18 Hydralazine HCl (Apresoline) 10 mg Q4H PRN GT For High BP over 160 syst 11/23/17 12:30 12/22/17 08:44 Insulin Aspart (NovoLOG) BEFORE MEALS AND HS SUBQ 11/23/17 16:30 12/23/17 16:29 Pantoprazole (Protonix) 40 mg EVERY 12 HOURS IVP 11/23/17 12:30 12/23/17 12:29 11/23/17 12:53 Piperacillin Sod/ Tazobactam Sod 3.375 gm/Sodium Chloride 110 ml @ 27.5 mls/hr Q12HR@0600,1800 IVPB 11/23/17 18:00 11/30/17 17:59 Assessment/Plan Assessment/Plan Abx Levaquin x1 11/21 ZOsyn 11/21- Assessment: Sepsis Acute on chronic respiratory failure, on Bipap- r/o PNA -CXR 11/21: Elevated right hemidiaphragm. Large amount of gas in the bowel. Cardiomegaly. No definite infiltrate or pneumothorax Leukocytosis/Low grade fever -u/a wbc 10-15, nit neg, leuk +2; r/o UTI -Bcx p PAN on CKD Sacral decubitus ulcer (Stage II)- no signs of infection Recent Funguria and Dermabacter hominis bacteremia (at [facility]) Recent Severe Sepsis 2ry to UTI, pancreatitis (10/2017), s/p Rx -u/a wbc tnct, nit neg, leuk +3; ucx >100K K. pna (R cipro/levo,nitro, amp, bactrim, otherwise S) -lipase ~800> 400s -sp cx P. mirabilis I Cipro, otherwise S; PsA I CEftazidime; otherwise S ( likely colonizers, no PNA on CXR) Recent Septic shock 2ry to PNA, UTI 09/2017 -Bacteremia with Staph capitis/ contamination -Pneumonia with MDR Acinetobacter (S Tigecycicline, minocycline, Colistin/ polymixin B) & ESBL Proteus -UTI with ESBL Proteus CVA w/ R hemiplegia seizure disorder PUD Dementia renal insufficiency DM bed bound CAD s/p 3v CABG HTN GERD dysphagia s/p GT urinary retention multiple hospitalizations hx of Aspiration PNA NH resident DNR/DNI NKDA VRE colonized Plan: -Continue empiric Zosyn and add IV Vancomycin to cover for possible PNA -low threshold to switch Zosyn to Meropenem if worsening sepsis -f/u cx -sp cx -monitor CBC/CMP temperatures -aspiration precautions -PEG care -wound care/prevention per hospital protocol -CXR am Thank you for this consultation. Will continue to follow along with you. Discussed with Skyla Bustos M.D. Nov 23, 2017 15:12
--- NOTE | 2017-11-23 15:13 | Internal Med Progress Note ---
Subjective Date of Service: Nov 23, 2017 Physician Name Staci Chacon Attending Physician Staci Chacon Current Medications Medications (Trade) Dose Ordered Sig/Keira Route PRN Reason Start Time Stop Time Status Last Admin Dose Admin Acetaminophen (Tylenol) 650 mg Q4H PRN ORAL Mild Pain/Temp > 100.5 11/22/17 16:00 12/22/17 15:59 11/22/17 16:23 Albuterol/ Ipratropium (Albuterol/ Ipratropium) 3 ml Q4H PRN HHN Shortness of Breath 11/22/17 10:00 11/27/17 09:59 Albuterol/ Ipratropium (Albuterol/ Ipratropium) 3 ml Q6HRT HHN 11/22/17 13:00 11/27/17 12:59 11/23/17 13:21 Aspirin (Ecotrin) 81 mg DAILY ORAL 11/22/17 09:00 12/22/17 08:59 11/23/17 09:16 Carvedilol (Coreg) 6.25 mg Q12HR ORAL 11/23/17 21:00 12/23/17 20:59 Clopidogrel Bisulfate (Plavix) 75 mg DAILY GT 11/22/17 09:00 12/22/17 08:59 11/23/17 09:16 Dextrose (Dextrose 50%) 25 ml STAT PRN IV Hypoglycemia 11/23/17 12:30 12/23/17 12:29 Dextrose (Dextrose 50%) 50 ml STAT PRN IV Hypoglycemia 11/23/17 12:30 12/23/17 12:29 Docusate Sodium (Colace) 100 mg TID GT 11/23/17 13:00 12/23/17 12:59 11/23/17 12:53 Furosemide (Lasix) 40 mg DAILY ORAL 11/23/17 09:00 12/23/17 08:59 11/23/17 09:21 Heparin Sodium (Porcine) (Heparin 5000 units/ml) 5,000 units EVERY 12 HOURS SUBQ 11/22/17 09:00 12/22/17 08:59 11/23/17 09:18 Hydralazine HCl (Apresoline) 10 mg Q4H PRN GT For High BP over 160 syst 11/23/17 12:30 12/22/17 08:44 Insulin Aspart (NovoLOG) BEFORE MEALS AND HS SUBQ 11/23/17 16:30 12/23/17 16:29 Pantoprazole (Protonix) 40 mg EVERY 12 HOURS IVP 11/23/17 12:30 12/23/17 12:29 11/23/17 12:53 Piperacillin Sod/ Tazobactam Sod 3.375 gm/Sodium Chloride 110 ml @ 27.5 mls/hr Q12HR@0600,1800 IVPB 11/23/17 18:00 11/30/17 17:59 Vancomycin HCl (Vanco rx to dose) 1 ea DAILY PRN MISC Per rx protocol 11/23/17 15:00 12/23/17 14:59 Vancomycin HCl/ Dextrose 250 ml @ 125 mls/hr ONCE ONCE IVPB 11/23/17 16:30 11/23/17 18:29 Allergies: Coded Allergies: No Known Allergies (Verified , 01/02/09) ROS Limited/Unobtainable: Yes - non verbal Objective Last Vital Signs Date Time Temp Pulse Resp B/P (MAP) Pulse Ox O2 Delivery O2 Flow Rate FiO2 11/23/17 15:00 75 32 95 Facial 40 11/23/17 11:38 97.3 102/53 (69) 97.3 11/23/17 09:00 15.0 General Appearance: WD/WN Neck: supple Cardiovascular: normal rate, regular rhythm, systolic murmur Respiratory/Chest: rhonchi - bilaterally, other - BIPAP Abdomen: normal bowel sounds, non tender, soft, other - PEG Genitourinary/Rectal: other - [place] Neurologic: aphasia Skin: warm/dry Laboratory Tests Test 11/22/17 16:15 11/23/17 07:40 Sodium Level 149 MMOL/L (136-145) H 148 MMOL/L (136-145) H Potassium Level 4.1 MMOL/L (3.5-5.1) 3.5 MMOL/L (3.5-5.1) Chloride Level 110 MMOL/L (98-107) H 107 MMOL/L (98-107) Carbon Dioxide Level 33 MMOL/L (21-32) H 33 MMOL/L (21-32) H Anion Gap 7 mmol/L (5-15) 9 mmol/L (5-15) Blood Urea Nitrogen 57 mg/dL (7-18) H 67 mg/dL (7-18) H Creatinine 2.5 MG/DL (0.55-1.30) H 3.3 MG/DL (0.55-1.30) H Estimat Glomerular Filtration Rate mL/min (>60) mL/min (>60) Glucose Level 132 MG/DL (74-106) H 210 MG/DL (74-106) H Calcium Level 9.1 MG/DL (8.5-10.1) 8.8 MG/DL (8.5-10.1) White Blood Count 14.9 K/UL (4.8-10.8) H Red Blood Count 3.95 M/UL (4.70-6.10) L Hemoglobin 10.7 G/DL (14.2-18.0) L Hematocrit 33.8 % (42.0-52.0) L Mean Corpuscular Volume 85 FL (80-99) Mean Corpuscular Hemoglobin 27.0 PG (27.0-31.0) Mean Corpuscular Hemoglobin Concent 31.6 G/DL (32.0-36.0) L Red Cell Distribution Width 16.9 % (11.6-14.8) H Platelet Count 292 K/UL (150-450) Mean Platelet Volume 6.6 FL (6.5-10.1) Neutrophils (%) (Auto) 71.3 % (45.0-75.0) Lymphocytes (%) (Auto) 21.5 % (20.0-45.0) Monocytes (%) (Auto) 6.5 % (1.0-10.0) Eosinophils (%) (Auto) 0.3 % (0.0-3.0) Basophils (%) (Auto) 0.3 % (0.0-2.0) C-Reactive Protein, Quantitative > 70.0 mg/dL (0.00-0.90) H Microbiology Date/Time Source Procedure Growth Status 11/21/17 21:55 Blood Blood Culture - Preliminary NO GROWTH AFTER 24 HOURS Resulted 11/21/17 21:40 Blood Blood Culture - Preliminary NO GROWTH AFTER 24 HOURS Resulted 11/21/17 23:40 Urine,Clean Catch Urine Culture - Preliminary NO GROWTH AFTER 24 HOURS Resulted 11/22/17 03:00 Sacral Wound Gram Stain - Final Resulted 11/22/17 03:00 Sacral Wound Wound Culture Pending Resulted 11/21/17 23:40 Rectum VRE Culture - Final Enterococcus Faecium - Vre Resulted 11/21/17 23:40 Rectum Pending Resulted Intake and Output 11/22/17 11/23/17 19:00 07:00 Intake Total 148 ml Output Total 300 ml Balance -152 ml IV Total 148 ml Output Urine Total 300 ml # Bowel Movements 4 Assessment/Plan Status: stable, progressing STACI CHACON Nov 23, 2017 15:13
[2017-11-23] MEDS ORDERED: Vancomycin 1.5 GM/D5W 250ML IVPB ONE (16:30)
[2017-11-23] MEDS: NovoLOG Insulin Flexpen SUBQ SCH ×2 (17:06→21:32)
[2017-11-23 17:11] LABS: ANION GAP 5 mmol/L (5-15); BLOOD UREA NITROGEN 77 mg/dL (7-18); CALCIUM 8.6 MG/DL (8.5-10.1); CARBON DIOXIDE 33 MMOL/L (21-32); CHLORIDE 110 MMOL/L (98-107); CREATININE 3.4 MG/DL (0.55-1.30); POTASSIUM 3.5 MMOL/L (3.5-5.1); SODIUM 147 MMOL/L (136-145)
--- NOTE | 2017-11-23 18:41 | Cardiology Report ---
APPROVED REPORT EKG Measurement Heart [id number] OR [id number] [id number] Normal sinus rhythm Left ventricular hypertrophy IVCD Possible Lateral infarct, age undetermined Abnormal ECG
[2017-11-23] MEDS: Carvedilol 6.25mg Tab ORAL SCH (21:00)
--- NOTE | 2017-11-23 21:45 | Consultation ---
DATE OF CONSULTATION: 11/23/2017 INFECTIOUS DISEASE CONSULTATION CONSULTING PHYSICIAN: Donnell Murray M.D. PRIMARY ATTENDING PHYSICIAN: Cesario Brewster M.D. REASON FOR CONSULT: Sepsis, systemic inflammatory response syndrome. HISTORY OF PRESENT ILLNESS: The patient is an 87-year-old male, [facility] He has multiple admissions in this year for respiratory failure. He was just recently discharged from [facility]. The patient had respiratory distress and hypoxemia. PAST MEDICAL HISTORY: Significant for diabetes mellitus, hypertension, has history of CVA and right hemiplegia, and has history of hypoxic hypercapnic respiratory failure. He is status post G-tube placement, has anemia, diastolic CHF, chronic kidney disease, coronary artery disease, status post CABG, and dementia. Code Status is DNR/DNI. MEDICATIONS: Getting carvedilol, Zosyn, insulin, Colace, hydralazine, Protonix, and albuterol and ipratropium. SOCIAL HISTORY: , lives in nursing facility. No history of alcohol or drug abuse, smoker. No other history obtainable by the patient. PHYSICAL EXAMINATION: VITAL SIGNS: Temperature 97.3 degrees, pulse 76, respirations are 46, and blood pressure 102/53. HEAD AND NECK: The patient is on BiPAP. HEART: Normal rate. LUNGS: Clear. Decreased sounds. The patient is tachypneic. ABDOMEN: Soft. G-tube in place. EXTREMITIES: No edema. Has peripheral line. LABORATORY AND DIAGNOSTIC DATA: WBC is 14.9, hemoglobin 10.7, hematocrit 33.8, and platelets 292. Sodium 148, potassium 3.5, chloride 107, bicarbonate 33, BUN 67, creatinine 2.3, and glucose 210. UA showed wbc's of 10 to 15, bacteria moderate, protein 3+. ABG showed pO2 of 60.4, pCO2 of 49.7, pH of 7.41, and O2 saturation 90.2. Urine culture so far is negative. Blood culture x2 negative. VRE screening is positive. Chest x-ray showed elevated right hemidiaphragm. No definite infiltrate. Distention of upper abdominal bowel loops. IMPRESSION: Sepsis, systemic inflammatory response syndrome with leukocytosis and tachypnea. The patient has pyuria, so far urine culture is negative, has hypoxemic hypercapnic respiratory failure, has diabetes mellitus, has sacral ulcer, has anemia, dementia, and has history of pancreatitis on previous admission. RECOMMENDATION: We will continue with Zosyn. We will ask for lipase level. We will repeat chest x-ray. We will follow up the cultures. At the end of my exam, I thank Dr. Brewster for involving me in the care of this patient. Donnell Murray M.D. DR: GAURI JOB#: [id number] CC:
--- NOTE | 2017-11-23 22:37 | Pulmonology Progress Note ---
Assessment/Plan Problems: (1) HCAP (healthcare-associated pneumonia) (2) Aspiration pneumonia (3) UTI (urinary tract infection) (4) Acute respiratory failure (5) ARF (acute renal failure) (6) recent L MCA ischemic stroke (7) Encephalopathy due to infection (8) G-tube site cellulitis (9) Bacterial infection due to Staphylococcus (10) Hydronephrosis of left kidney Assessment/Plan ASSESSMENT: The patient is an 87-year-old male with history of CVA, aphasia, dysphagia, status post G-tube, anemia, hypertension, urinary retention, multiple recent hospitalizations, and chronic hypercapnic and hypoxemic respiratory failure, admitted with worsening shortness of breath, noted to have a UTI plus or minus pneumonic infiltrate. PROBLEM LIST: 1. Systemic inflammatory response syndrome. 2. Recurrent UTI. 3. Chronic hypercapnic and hypoxemic respiratory failure. 4. Respiratory muscle weakness. 5. Recent pneumonia and prolonged intubation. 6. Recent Dermabacter hominis bacteremia. 7. Recent fungal cystitis. 8. CHF with diastolic dysfunction. 9. PAN on CKD. 10. Anemia. 11. History of GI bleed. 12. History of CVA with organic brain syndrome. 13. Dysphagia, status post G-tube. TREATMENT PLAN: 1. Optimize pulmonary hygiene/mobilize as tolerated. 2. BiPAP 17/5 p.r.n. and nightly. 3. Titrate down FiO2 to keep saturations greater than 90%. 4. Cfkjy-qxz-hwudk and p.r.n. DuoNebs. 5. Suctioning as able. 6. Abx per ID. 7. Follow up cultures. 8. Repeat CXR 9. Tube feeds once stable, off of BiPAP. 10. Monitor volumes and renal function. F/U renal recs 11. DVT prophylaxis, heparin subcutaneous. 12. DNR/DNI. Subjective Allergies: Coded Allergies: No Known Allergies (Verified , 01/02/09) Subjective Remains of BiPAP, RR 40 No cough, no secretion, Cr worse Gaseous distention commented on abd cuts of CXR No F/C Objective Last 24 Hour Vital Signs Date Time Temp Pulse Resp B/P (MAP) Pulse Ox O2 Delivery O2 Flow Rate FiO2 11/23/17 21:00 77 102/59 11/23/17 20:44 77 43 99 Facial 40 11/23/17 20:00 97.0 81 20 102/59 (73) 96 97.0 7/8/18 19:24 76 43 93 Bi-pap 40 7/8/18 19:16 Bi-pap 40 7/8/18 19:16 92 Bi-pap 40 7/8/18 19:14 72 42 92 Bi-pap 40 7/8/18 19:00 76 42 98 Facial 40 7/8/18 17:24 76 33 98 Facial 40 7/8/18 16:16 76 7/8/18 16:00 97.2 79 20 100/57 (71) 96 97.2 18 15:00 75 32 95 Facial 40 7/8/18 13:28 75 42 95 Bi-pap 40 7/8/18 13:19 52 36 92 Bi-pap 40 7/8/18 13:15 59 32 92 Facial 40 /8/18 12:00 76 7//18 11:39 76 46 90 Facial 40 7/8/18 11:38 97.3 77 20 102/53 (69) 99 97.3 18 10:57 72 44 93 Facial 40 7/8/18 09:00 75 106/57 7//18 09:00 75 106/57 7//18 09:00 Non-Rebreather 15.0 7/8/18 08:29 78 110/57 (74) 18 08:08 78 20 99/57 (71) 98 7/8/18 08:00 97.5 78 20 99/57 (71) 98 97.5 11/23/18 08:00 78 7//18 07:36 74 20 95 Bi-pap 40 7/8/18 07:33 Bi-pap 40 7/8/18 07:33 94 Bi-pap 40 7/8/18 07:30 74 16 94 Facial 40 7/8/18 07:29 72 16 94 Bi-pap 40 7/8/18 05:45 72 33 96 Facial 40 7/8/18 04:00 97.6 75 16 98/62 (74) 94 97.6 7/8/18 04:00 72 7/8/18 03:38 73 27 95 Facial 40 7/8/18 01:33 72 94 Facial 40 7/8/18 01:30 74 33 94 Bi-pap 40 7/8/18 01:29 74 26 92 Non-Rebreather 15.0 100 11/23/17 00:00 75 11/23/17 00:00 97.3 75 16 101/63 (28) 92 97.3 Intake and Output 11/22/17 11/23/17 19:00 07:00 Intake Total 148 ml Output Total 300 ml Balance -152 ml IV Total 148 ml Output Urine Total 300 ml # Bowel Movements 4 General Appearance: cachetic, other - BiPAP, non-verbal HEENT: normocephalic, atraumatic Respiratory/Chest: rhonchi Cardiovascular: normal peripheral pulses, normal rate, regular rhythm Abdomen: normal bowel sounds, soft, non tender, no organomegaly, non distended Extremities: no cyanosis, no clubbing, no edema Microbiology Date/Time Source Procedure Growth Status 11/21/17 21:55 Blood Blood Culture - Preliminary NO GROWTH AFTER 24 HOURS Resulted 11/21/17 21:40 Blood Blood Culture - Preliminary NO GROWTH AFTER 24 HOURS Resulted 11/21/17 23:40 Urine,Clean Catch Urine Culture - Preliminary NO GROWTH AFTER 24 HOURS Resulted 11/22/17 03:00 Sacral Wound Gram Stain - Final Resulted 11/22/17 03:00 Sacral Wound Wound Culture Pending Resulted 11/21/17 23:40 Rectum VRE Culture - Final Enterococcus Faecium - Vre Resulted 11/21/17 23:40 Rectum Pending Resulted Laboratory Tests 11/23/17 07:40: White Blood Count 14.9H, Red Blood Count 3.95L, Hemoglobin 10.7L, Hematocrit 33.8L, Mean Corpuscular Volume 85, Mean Corpuscular Hemoglobin 27.0, Mean Corpuscular Hemoglobin Concent 31.6L, Red Cell Distribution Width 16.9H, Platelet Count 292, Mean Platelet Volume 6.6, Neutrophils (%) (Auto) 71.3, Lymphocytes (%) (Auto) 21.5, Monocytes (%) (Auto) 6.5, Eosinophils (%) (Auto) 0.3, Basophils (%) (Auto) 0.3, Sodium Level 148H, Potassium Level 3.5, Chloride Level 107, Carbon Dioxide Level 33H, Anion Gap 9, Blood Urea Nitrogen 67H, Creatinine 3.3H, Estimat Glomerular Filtration Rate , Glucose Level 210H, Calcium Level 8.8, C-Reactive Protein, Quantitative > 70.0H 11/23/17 16:15: Sodium Level 147H, Potassium Level 3.5, Chloride Level 110H, Carbon Dioxide Level 33H, Anion Gap 5, Blood Urea Nitrogen 77H, Creatinine 3.4H, Estimat Glomerular Filtration Rate , Glucose Level 171H, Calcium Level 8.6 Current Medications Medications (Trade) Dose Ordered Sig/Keira Route PRN Reason Start Time Stop Time Status Last Admin Dose Admin Acetaminophen (Tylenol) 650 mg Q4H PRN ORAL Mild Pain/Temp > 100.5 11/22/17 16:00 12/22/17 15:59 11/22/17 16:23 Albuterol/ Ipratropium (Albuterol/ Ipratropium) 3 ml Q4H PRN HHN Shortness of Breath 11/22/17 10:00 11/27/17 09:59 Albuterol/ Ipratropium (Albuterol/ Ipratropium) 3 ml Q6HRT HHN 11/22/17 13:00 11/27/17 12:59 11/23/17 19:14 Aspirin (Ecotrin) 81 mg DAILY ORAL 11/22/17 09:00 12/22/17 08:59 11/23/17 09:16 Carvedilol (Coreg) 6.25 mg Q12HR ORAL 11/23/17 21:00 12/23/17 20:59 Clopidogrel Bisulfate (Plavix) 75 mg DAILY GT 11/22/17 09:00 12/22/17 08:59 11/23/17 09:16 Dextrose (Dextrose 50%) 25 ml STAT PRN IV Hypoglycemia 11/23/17 12:30 12/23/17 12:29 Dextrose (Dextrose 50%) 50 ml STAT PRN IV Hypoglycemia 11/23/17 12:30 12/23/17 12:29 Docusate Sodium (Colace) 100 mg TID GT 11/23/17 13:00 12/23/17 12:59 11/23/17 17:56 Furosemide (Lasix) 40 mg DAILY ORAL 11/23/17 09:00 12/23/17 08:59 11/23/17 09:21 Heparin Sodium (Porcine) (Heparin 5000 units/ml) 5,000 units EVERY 12 HOURS SUBQ 11/22/17 09:00 12/22/17 08:59 11/23/17 21:33 Hydralazine HCl (Apresoline) 10 mg Q4H PRN GT For High BP over 160 syst 11/23/17 12:30 12/22/17 08:44 Insulin Aspart (NovoLOG) BEFORE MEALS AND HS SUBQ 11/23/17 16:30 12/23/17 16:29 11/23/17 21:32 Pantoprazole (Protonix) 40 mg EVERY 12 HOURS IVP 11/23/17 12:30 12/23/17 12:29 11/23/17 21:32 Piperacillin Sod/ Tazobactam Sod 3.375 gm/Sodium Chloride 110 ml @ 27.5 mls/hr Q12HR@0600,1800 IVPB 11/23/17 18:00 11/30/17 17:59 11/23/17 19:44 Vancomycin HCl (Vanco rx to dose) 1 ea DAILY PRN MISC Per rx protocol 11/23/17 15:00 12/23/17 14:59 Sagar Melvin MD Nov 23, 2017 22:37
[2017-11-24] VITALS: BP 97/55
[2017-11-24] MEDS: Albuterol/Ipratropium 3ml neb HHN SCH ×4 (01:09→21:32)
[2017-11-24 04:19] VITALS: BP 100/61
[2017-11-24 04:48] LABS: BASOPHILS % (AUTO) 0.3 % (0.0-2.0); EOSINOPHILS % (AUTO) 2.3 % (0.0-3.0); HEMATOCRIT 29.4 % (42.0-52.0); HEMOGLOBIN 9.2 G/DL (14.2-18.0); LYMPHOCYTES % (AUTO) 22.8 % (20.0-45.0); MEAN CORPUSCULAR VOLUME 84 FL (80-99); MONOCYTES % (AUTO) 6.1 % (1.0-10.0); NEUTROPHILS % (AUTO) 68.4 % (45.0-75.0); PLATELET COUNT 266 K/UL (150-450); RED CELL DISTRIBUTION WIDTH 16.7 % (11.6-14.8)
[2017-11-24 05:11] LABS: AMMONIA 23 umol/L (11-32)
[2017-11-24 05:23] LABS: ALANINE AMINOTRANSFERASE 36 U/L (12-78); ALBUMIN 1.5 G/DL (3.4-5.0); ALBUMIN/GLOBULIN RATIO 0.2 (1.0-2.7); ALKALINE PHOSPHATASE 83 U/L (46-116); ANION GAP 6 mmol/L (5-15); ASPARTATE AMINO TRANSFERASE 52 U/L (15-37); BILIRUBIN,TOTAL 0.2 MG/DL (0.2-1.0); BLOOD UREA NITROGEN 79 mg/dL (7-18); CALCIUM 8.5 MG/DL (8.5-10.1); CARBON DIOXIDE 34 MMOL/L (21-32); CHLORIDE 108 MMOL/L (98-107); CHOLESTEROL < 50 MG/DL (< 200); CREATININE 3.6 MG/DL (0.55-1.30); FERRITIN 732 NG/ML (8-388); GAMMA GLUTAMYL TRANSPEPTIDASE 29 U/L (5-85); HDL CHOLESTEROL 16 MG/DL (40-60); PHOSPHORUS 2.6 MG/DL (2.5-4.9); POTASSIUM 3.3 MMOL/L (3.5-5.1); SODIUM 148 MMOL/L (136-145); TRIGLYCERIDES 106 MG/DL (30-150)
[2017-11-24 05:34] LABS: % IRON SATURATION 25 % (15-50); IRON 23 ug/dL (50-175); TOTAL IRON BINDING CAPACITY 91 ug/dL (250-450)
[2017-11-24] MEDS: NovoLOG Insulin Flexpen SUBQ SCH ×3 (05:48→17:57)
[2017-11-24] MEDS: Piperacillin/Tazobactam 3.375 GM in NS 110 ML IVPB SCH ×2 (05:48→17:54)
[2017-11-24 08:06] VITALS: BP 105/66
[2017-11-24] MEDS: Carvedilol 6.25mg Tab ORAL SCH ×2 (09:00→20:38)
[2017-11-24] MEDS: Aspirin EC 81mg tab ORAL SCH (09:08)
[2017-11-24] MEDS: Docusate 100mg/10ml Liq GT SCH ×3 (09:08→17:54)
[2017-11-24] MEDS: Furosemide 40mg tab ORAL SCH (09:08)
[2017-11-24] MEDS: Pantoprazole Inj IVP SCH ×2 (09:09→20:35)
[2017-11-24] MEDS: Heparin 5000 units/ml inj SUBQ SCH ×2 (09:09→20:35)
--- NOTE | 2017-11-24 09:16 | Pulmonology Progress Note ---
Assessment/Plan Problems: (1) HCAP (healthcare-associated pneumonia) (2) Aspiration pneumonia (3) UTI (urinary tract infection) (4) Acute respiratory failure (5) ARF (acute renal failure) (6) recent L MCA ischemic stroke (7) Encephalopathy due to infection (8) G-tube site cellulitis (9) Bacterial infection due to Staphylococcus (10) Hydronephrosis of left kidney Assessment/Plan ASSESSMENT: The patient is an 87-year-old male with history of CVA, aphasia, dysphagia, status post G-tube, anemia, hypertension, urinary retention, multiple recent hospitalizations, and chronic hypercapnic and hypoxemic respiratory failure, admitted with worsening shortness of breath, noted to have a UTI plus or minus pneumonic infiltrate. PROBLEM LIST: 1. Systemic inflammatory response syndrome. 2. Recurrent UTI. 3. Chronic hypercapnic and hypoxemic respiratory failure. 4. Respiratory muscle weakness. 5. Recent pneumonia and prolonged intubation. 6. Recent Dermabacter hominis bacteremia. 7. Recent fungal cystitis. 8. CHF with diastolic dysfunction. 9. PAN on CKD. 10. Anemia. 11. History of GI bleed. 12. History of CVA with organic brain syndrome. 13. Dysphagia, status post G-tube. TREATMENT PLAN: 1. Optimize pulmonary hygiene/mobilize as tolerated. 2. BiPAP 17/5 p.r.n. and nightly. ---> ATTEMPT TO WEAN OFF TODAY 3. Titrate down FiO2 to keep saturations greater than 90%. 4. Kwqmz-ojx-goxic and p.r.n. DuoNebs. 5. Suctioning as able. 6. Abx per ID. 7. Follow up cultures. 8. Repeat CXR 9. Tube feeds once stable, off of BiPAP. 10. Monitor volumes and renal function. F/U renal recs, F/U RENAL U/S, F/U TTE to better assess filling pressures 11. DVT prophylaxis, heparin subcutaneous. 12. DNR/DNI. Subjective Allergies: Coded Allergies: No Known Allergies (Verified , 01/02/09) Subjective Remains on BiPAP, RR better No cough, no secretion, Cr worse No F/C Objective Last 24 Hour Vital Signs Date Time Temp Pulse Resp B/P (MAP) Pulse Ox O2 Delivery O2 Flow Rate FiO2 11/24/17 09:00 69 105/66 11/24/17 08:06 97.4 69 20 105/66 (79) 94 97.4 11/24/17 07:49 78 28 96 Bi-pap 40 18 07:40 78 28 96 Bi-pap 40 11/24/17 07:40 78 28 96 Facial 40 11/24/17 07:40 Bi-pap 40 18 07:40 96 Bi-pap 40 11/24/17 05:09 71 25 94 Facial 60 11/24/17 04:19 97.9 80 20 100/61 (74) 95 97.9 11/24/17 04:00 76 11/24/17 03:15 79 45 93 Facial 60 11/24/17 01:31 72 45 93 Bi-pap 60 11/24/17 01:09 70 43 93 Bi-pap 60 11/24/17 01:09 78 42 92 Facial 60 11/24/17 00:00 74 11/24/17 00:00 97.5 79 20 97/55 (69) 97 97.5 11/23/17 22:48 79 44 93 Facial 40 11/23/17 21:00 Non-Rebreather 15.0 18 21:00 77 102/59 18 20:44 77 43 99 Facial 40 18 20:00 97.0 81 20 102/59 (73) 96 97.0 11/23/17 20:00 77 11/23/18 19:24 76 43 93 Bi-pap 40 /8/18 19:16 Bi-pap 40 7/8/18 19:16 92 Bi-pap 40 78/18 19:14 72 42 92 Bi-pap 40 /8/18 19:00 76 42 98 Facial 40 7/8/18 17:24 76 33 98 Facial 40 7/8/18 16:16 76 7//18 16:00 97.2 79 20 100/57 (71) 96 97.2 18 15:00 75 32 95 Facial 40 7/8/18 13:28 75 42 95 Bi-pap 40 7/8/18 13:19 52 36 92 Bi-pap 40 7/8/18 13:15 59 32 92 Facial 40 7/8/18 12:00 76 7/18 11:39 76 46 90 Facial 40 /8/18 11:38 97.3 77 20 102/53 (69) 99 97.3 11/23/17 10:57 72 44 93 Facial 40 Intake and Output 11/23/17 11/24/17 19:00 07:00 Intake Total 960 ml 960 ml Output Total 150 ml Balance 810 ml 960 ml Free Water 300 ml 300 ml Tube Feeding 660 ml 660 ml Output Urine Total 150 ml # Bowel Movements 1 2 General Appearance: no acute distress, cachetic, other - on BiPAP HEENT: normocephalic, atraumatic, anicteric, mucous membranes moist Respiratory/Chest: chest wall non-tender, crackles/rales Cardiovascular: normal peripheral pulses, normal rate, regular rhythm Abdomen: normal bowel sounds, soft, non tender, no organomegaly, non distended Extremities: no cyanosis, no clubbing, no edema Microbiology Date/Time Source Procedure Growth Status 11/21/17 21:55 Blood Blood Culture - Preliminary NO GROWTH AFTER 48 HOURS Resulted 11/21/17 21:40 Blood Blood Culture - Preliminary NO GROWTH AFTER 48 HOURS Resulted 11/21/17 23:40 Urine,Clean Catch Urine Culture - Final NO GROWTH AFTER 48 HOURS Complete 11/22/17 03:00 Sacral Wound Gram Stain - Final Resulted 11/22/17 03:00 Sacral Wound Wound Culture Pending Resulted 11/21/17 23:40 Rectum VRE Culture - Final Enterococcus Faecium - Vre Resulted 11/21/17 23:40 Rectum Pending Resulted Laboratory Tests 11/23/17 16:15: Sodium Level 147H, Potassium Level 3.5, Chloride Level 110H, Carbon Dioxide Level 33H, Anion Gap 5, Blood Urea Nitrogen 77H, Creatinine 3.4H, Estimat Glomerular Filtration Rate , Glucose Level 171H, Calcium Level 8.6 11/23/17 22:34: Arterial Blood pH 7.456H, Arterial Blood Partial Pressure CO2 44.1, Arterial Blood Partial Pressure O2 53.6L, Arterial Blood HCO3 30.4H, Arterial Blood Oxygen Saturation 87.1L, Arterial Blood Base Excess 5.8, Librado Test Positive 11/24/17 04:20: Sodium Level 148H, Potassium Level 3.3L, Chloride Level 108H, Carbon Dioxide Level 34H, Anion Gap 6, Blood Urea Nitrogen 79H, Creatinine 3.6H, Estimat Glomerular Filtration Rate , Glucose Level 146H, Calcium Level 8.5, White Blood Count 15.0H, Red Blood Count 3.50L, Hemoglobin 9.2L, Hematocrit 29.4L, Mean Corpuscular Volume 84, Mean Corpuscular Hemoglobin 26.2L, Mean Corpuscular Hemoglobin Concent 31.2L, Red Cell Distribution Width 16.7H, Platelet Count 266 , Mean Platelet Volume 6.0L, Neutrophils (%) (Auto) 68.4, Lymphocytes (%) (Auto ) 22.8, Monocytes (%) (Auto) 6.1, Eosinophils (%) (Auto) 2.3, Basophils (%) ( Auto) 0.3, Hemoglobin A1c 5.9, Uric Acid 8.7H, Phosphorus Level 2.6, Magnesium Level 2.4, Iron Level 23L, Total Iron Binding Capacity 91L, Percent Iron Saturation 25, Unsaturated Iron Binding 68L, Ferritin 732H, Total Bilirubin 0.2 , Gamma Glutamyl Transpeptidase 29, Aspartate Amino Transf (AST/SGOT) 52H, Alanine Aminotransferase (ALT/SGPT) 36, Alkaline Phosphatase 83, Ammonia 23, Troponin I 0.184H, Pro-B-Type Natriuretic Peptide 5384H, Total Protein 7.7, Albumin 1.5L, Globulin 6.2, Albumin/Globulin Ratio 0.2L, Triglycerides Level 106 , Cholesterol Level < 50, LDL Cholesterol 19, HDL Cholesterol 16L, Cholesterol/ HDL Ratio 3.1L, Lipase 315, Vitamin B12 Level 936, Folate 18.4, Thyroid Stimulating Hormone (TSH) 4.097H, Cortisol AM Sample [Pending] Current Medications Medications (Trade) Dose Ordered Sig/Keira Route PRN Reason Start Time Stop Time Status Last Admin Dose Admin Acetaminophen (Tylenol) 650 mg Q4H PRN ORAL Mild Pain/Temp > 100.5 11/22/17 16:00 12/22/17 15:59 11/22/17 16:23 Albuterol/ Ipratropium (Albuterol/ Ipratropium) 3 ml Q4H PRN HHN Shortness of Breath 11/22/17 10:00 11/27/17 09:59 Albuterol/ Ipratropium (Albuterol/ Ipratropium) 3 ml Q6HRT HHN 11/22/17 13:00 11/27/17 12:59 11/24/17 07:40 Aspirin (Ecotrin) 81 mg DAILY ORAL 11/22/17 09:00 12/22/17 08:59 11/24/17 09:08 Carvedilol (Coreg) 6.25 mg Q12HR ORAL 11/23/17 21:00 12/23/17 20:59 Clopidogrel Bisulfate (Plavix) 75 mg DAILY GT 11/22/17 09:00 12/22/17 08:59 11/24/17 09:08 Dextrose (Dextrose 50%) 25 ml STAT PRN IV Hypoglycemia 11/23/17 12:30 12/23/17 12:29 Dextrose (Dextrose 50%) 50 ml STAT PRN IV Hypoglycemia 11/23/17 12:30 12/23/17 12:29 Docusate Sodium (Colace) 100 mg TID GT 11/23/17 13:00 12/23/17 12:59 11/24/17 09:08 Furosemide (Lasix) 40 mg DAILY ORAL 11/23/17 09:00 12/23/17 08:59 11/24/17 09:08 Heparin Sodium (Porcine) (Heparin 5000 units/ml) 5,000 units EVERY 12 HOURS SUBQ 11/22/17 09:00 12/22/17 08:59 11/24/17 09:09 Hydralazine HCl (Apresoline) 10 mg Q4H PRN GT For High BP over 160 syst 11/23/17 12:30 12/22/17 08:44 Insulin Aspart (NovoLOG) BEFORE MEALS AND HS SUBQ 11/23/17 16:30 12/23/17 16:29 11/24/17 05:48 Pantoprazole (Protonix) 40 mg EVERY 12 HOURS IVP 11/23/17 12:30 12/23/17 12:29 11/24/17 09:09 Piperacillin Sod/ Tazobactam Sod 3.375 gm/Sodium Chloride 110 ml @ 27.5 mls/hr Q12HR@0600,1800 IVPB 11/23/17 18:00 11/30/17 17:59 11/24/17 05:48 Potassium Chloride 100 ml @ 100 mls/hr Q1H IVPB 11/24/17 09:00 11/24/17 10:59 11/24/17 09:09 Vancomycin HCl (Vanco rx to dose) 1 ea DAILY PRN MISC Per rx protocol 11/23/17 15:00 12/23/17 14:59 Sagar Melvin MD Nov 24, 2017 09:16
--- NOTE | 2017-11-24 09:45 | History and Physical Report ---
DATE OF ADMISSION: 11/21/2017 CHIEF COMPLAINT: The [facility] from the [facility] because of desaturation and hypoxemia. HISTORY OF PRESENT ILLNESS: This is an unfortunate 87-year-old gentleman with history of CVA, hemiparesis, aphasia, dysphagia, status post gastrostomy tube placement, anemia of chronic disease, hypertension, urinary retention with chronic Matson catheter, with recent hospitalization and discharge from [facility] a few days ago, who was readmitted for acute on chronic hypoxemia while on BiPAP. The patient's oxygen dropped in the 80s. He was brought in by EMT to [facility]. The patient's code status is DNR/DNI at this point. The patient was started on BiPAP and broad-spectrum antibiotics. The patient at the [facility] should be on the BiPAP at nighttime and as needed during the daytime. PAST MEDICAL HISTORY: As above. In addition: 1. Chronic kidney disease, stage 3-4. 2. CVA with organic brain syndrome. 3. Congestive heart failure with diastolic dysfunction. 4. Muscle weakness. 5. Chronic hypercapnic and hypoxemic respiratory failure. 6. Benign prostatic hypertrophy. 7. Chronic urinary retention. 8. Neurogenic bladder. 9. History of GI bleed. MEDICATIONS FROM LONG-TERM: Please refer to medication reconciliation. I have reviewed at length. ALLERGIES: No known drug allergies. FAMILY HISTORY: Noncontributory. SOCIAL HISTORY: The patient has overall 18 children, very supportive family. The patient is a long-term resident of a [facility]. REVIEW OF SYSTEMS: Cannot be obtained because of illness and Alzheimer dementia. PHYSICAL EXAMINATION: VITAL SIGNS: Blood pressure upon arrival to the emergency room 118/78, respiration of 24, pulse 80, O2 saturation 90% on non-rebreather mask with 16 L of oxygen. GENERAL: The patient is lying in bed, nonverbal with [id number]-[id number] respiratory distress. NECK: Supple. No JVD. CARDIAC: S1, S2. Tachycardic. LUNGS: Bilateral coarse rhonchi. ABDOMEN: Soft, nontender, nondistended. No guarding. No rebound. Gastrostomy tube intact. EXTREMITIES: No edema or cyanosis. NEUROLOGIC: The patient is obtunded. The patient has chronic right-sided hemiplegia from previous stroke. GENITOURINARY: The patient has a Matson catheter. LABORATORY AND DIAGNOSTIC DATA: Labs on admission, WBC 14, hemoglobin 12.2, hematocrit 40, platelets 319,000. Sodium 149, potassium 4.1, chloride 110, bicarbonate 33, BUN 27, creatinine 2.5, glucose 132. Lactic acid is 1.2. Troponin 0.103. Blood gas, pH 7.418, pCO2 49.9, pO2 of 60.4, bicarbonate of 31.5, O2 saturation 90.2%. Chest x-ray revealed gaseous distention of the upper abdomen, bowel loops viscous in the previous film, consider CT correlation, the patient has elevated right hemidiaphragm, large amount of gas in the bowel, cardiomegaly, no acute infiltrate or pneumothorax. A 12-lead EKG, normal sinus rhythm, nonspecific ST changes, left bundle-branch block, heart rate 79. IMPRESSION: 1. SIRS. 2. Recurrent UTI. 3. Chronic hypercapnic and hypoxemic respiratory failure. 4. Chronic kidney disease, stage 3-4. 5. Recent history of fungal cystitis. 6. Recent history of Dermabacter hominis bacteremia. 7. Recurrent pneumonia, aspiration pneumonitis. 8. History of GI bleed. 9. Anemia of chronic disease. 10. History of CVA with organic brain syndrome. 11. Chronic right-sided hemiplegia. 12. Dysphagia, status post gastrostomy tube placement. 13. Leukocytosis. 14. Bedbound. 15. Functional quadriplegia. PLAN: 1. BIPAP for now. Hold feeding while on BiPAP. 2. Titrate FiO2. 3. IV antibiotic./ follow up cultures 4. ID and renal consult. 5. Tube feeding once off BiPAP. 6. Monitor volume and renal function. 7. DVT and GI prophylaxis. 8. Pulmonary nebulizer. 9. The patient is DNR and DNI. 10. Case discussed with screening nurse at length. Time spent on evaluation and inclusion of care 75 minutes. Cesario Brewster M.D. DR: Gina JOB#: [id number] CC: [id number]
--- NOTE | 2017-11-24 10:31 | Nephrology Progress Note ---
Assessment/Plan Problem List: (1) ARF (acute renal failure) (2) Acute respiratory failure (3) Encephalopathy due to infection Assessment (1) Acute respiratory failure, Pneumonia and UTI (2) ATN (acute tubular necrosis), with underlying CKD (3) Anemia (4) UTI (urinary tract infection) (5) DNR (do not resuscitate) (6) Acute Encephalopathy, s/p Multiple strokes (7) PEG (8) HyperGlycemia Plan K supplement Pulm support on bipap Hydrate as possible - BS control avoid nephrotoxics Monitor renal parameters Hemodynamic support urine studies Per orders poor prognosis Subjective ROS Limited/Unobtainable: No Constitutional: Reports: malaise Objective Objective Last 24 Hour Vital Signs Date Time Temp Pulse Resp B/P (MAP) Pulse Ox O2 Delivery O2 Flow Rate FiO2 11/24/17 09:00 Endotracheal Tube 17.0 11/24/17 09:00 69 105/66 11/24/17 08:06 97.4 69 36 105/66 (79) 94 97.4 11/24/17 08:00 69 11/24/17 07:49 78 28 96 Bi-pap 40 11/24/17 07:40 78 28 96 Bi-pap 40 11/24/17 07:40 78 28 96 Facial 40 11/24/17 07:40 Bi-pap 40 11/24/17 07:40 96 Bi-pap 40 11/24/17 05:09 71 25 94 Facial 60 11/24/17 04:19 97.9 80 20 100/61 (74) 95 97.9 11/24/17 04:00 76 11/24/17 03:15 79 45 93 Facial 60 11/24/17 01:31 72 45 93 Bi-pap 60 11/24/17 01:09 70 43 93 Bi-pap 60 11/24/17 01:09 78 42 92 Facial 60 11/24/17 00:00 74 11/24/17 00:00 97.5 79 20 97/55 (69) 97 97.5 11/23/17 22:48 79 44 93 Facial 40 11/23/17 21:00 Non-Rebreather 15.0 11/23/17 21:00 77 102/59 11/23/17 20:44 77 43 99 Facial 40 11/23/17 20:00 97.0 81 20 102/59 (73) 96 97.0 11/23/17 20:00 77 11/23/17 19:24 76 43 93 Bi-pap 40 11/23/17 19:16 Bi-pap 40 11/23/17 19:16 92 Bi-pap 40 11/23/17 19:14 72 42 92 Bi-pap 40 11/23/17 19:00 76 42 98 Facial 40 11/23/17 17:24 76 33 98 Facial 40 11/23/17 16:16 76 11/23/17 16:00 97.2 79 20 100/57 (71) 96 97.2 11/23/17 15:00 75 32 95 Facial 40 11/23/17 13:28 75 42 95 Bi-pap 40 11/23/17 13:19 52 36 92 Bi-pap 40 11/23/17 13:15 59 32 92 Facial 40 11/23/17 12:00 76 11/23/17 11:39 76 46 90 Facial 40 11/23/17 11:38 97.3 77 20 102/53 (69) 99 97.3 11/23/17 10:57 72 44 93 Facial 40 Intake and Output 11/23/17 11/24/17 19:00 07:00 Intake Total 960 ml 960 ml Output Total 150 ml Balance 810 ml 960 ml Free Water 300 ml 300 ml Tube Feeding 660 ml 660 ml Output Urine Total 150 ml # Bowel Movements 1 2 Laboratory Tests 11/23/17 16:15: Sodium Level 147H, Potassium Level 3.5, Chloride Level 110H, Carbon Dioxide Level 33H, Anion Gap 5, Blood Urea Nitrogen 77H, Creatinine 3.4H, Estimat Glomerular Filtration Rate , Glucose Level 171H, Calcium Level 8.6 11/23/17 22:34: Arterial Blood pH 7.456H, Arterial Blood Partial Pressure CO2 44.1, Arterial Blood Partial Pressure O2 53.6L, Arterial Blood HCO3 30.4H, Arterial Blood Oxygen Saturation 87.1L, Arterial Blood Base Excess 5.8, Librado Test Positive 11/24/17 04:20: Sodium Level 148H, Potassium Level 3.3L, Chloride Level 108H, Carbon Dioxide Level 34H, Anion Gap 6, Blood Urea Nitrogen 79H, Creatinine 3.6H, Estimat Glomerular Filtration Rate , Glucose Level 146H, Calcium Level 8.5, White Blood Count 15.0H, Red Blood Count 3.50L, Hemoglobin 9.2L, Hematocrit 29.4L, Mean Corpuscular Volume 84, Mean Corpuscular Hemoglobin 26.2L, Mean Corpuscular Hemoglobin Concent 31.2L, Red Cell Distribution Width 16.7H, Platelet Count 266 , Mean Platelet Volume 6.0L, Neutrophils (%) (Auto) 68.4, Lymphocytes (%) (Auto ) 22.8, Monocytes (%) (Auto) 6.1, Eosinophils (%) (Auto) 2.3, Basophils (%) ( Auto) 0.3, Hemoglobin A1c 5.9, Uric Acid 8.7H, Phosphorus Level 2.6, Magnesium Level 2.4, Iron Level 23L, Total Iron Binding Capacity 91L, Percent Iron Saturation 25, Unsaturated Iron Binding 68L, Ferritin 732H, Total Bilirubin 0.2 , Gamma Glutamyl Transpeptidase 29, Aspartate Amino Transf (AST/SGOT) 52H, Alanine Aminotransferase (ALT/SGPT) 36, Alkaline Phosphatase 83, Ammonia 23, Troponin I 0.184H, Pro-B-Type Natriuretic Peptide 5384H, Total Protein 7.7, Albumin 1.5L, Globulin 6.2, Albumin/Globulin Ratio 0.2L, Triglycerides Level 106 , Cholesterol Level < 50, LDL Cholesterol 19, HDL Cholesterol 16L, Cholesterol/ HDL Ratio 3.1L, Lipase 315, Vitamin B12 Level 936, Folate 18.4, Thyroid Stimulating Hormone (TSH) 4.097H, Cortisol AM Sample 12.0 Height (Feet): 6 Height (Inches): 0.00 Weight (Pounds): 190 General Appearance: other - on bipap Cardiovascular: normal rate Respiratory/Chest: decreased breath sounds, rhonchi - bilaterally Abdomen: distended ROSE MARY REID Nov 24, 2017 10:31
[2017-11-24 12:05] VITALS: BP 107/61
--- NOTE | 2017-11-24 12:36 | Diagnostic Imaging Report ---
Indication: Dyspnea Comparison: 11/23/2017 A single view chest radiograph was obtained. Findings: Infiltrate in the right lung again demonstrated. Heart is enlarged but stable. There is a right pleural effusion. IMPRESSION: Airspace disease in the right lung likely due to pneumonia. Small right pleural effusion
--- NOTE | 2017-11-24 12:44 | Diagnostic Imaging Report ---
Indication: Dyspnea Comparison: 11/21/2017 A single view chest radiograph was obtained. Findings: Infiltrate in the right lung more conspicuous on the current study. Findings suspicious for pneumonia. Suspect bilateral pleural effusions as well. Heart size is stable. IMPRESSION: Suspected pneumonia in the right lung.
--- NOTE | 2017-11-24 14:23 | Infectious Diseases Prog Note ---
Assessment/Plan Assessment/Plan Abx Levaquin x1 11/21 ZOsyn 11/21- Assessment: Sepsis Acute on chronic respiratory failure, on Bipap- probable PNA -CXR 11/24: Airspace disease in the right lung likely due to pneumonia. Small right pleural effusion -CXR 11/21: Elevated right hemidiaphragm. Large amount of gas in the bowel. Cardiomegaly. No definite infiltrate or pneumothorax Leukocytosis/Low grade fever; fever improving, leukocytosis persistent -u/a wbc 10-15, nit neg, leuk +2; ucx neg -Bcx NTD PAN on CKD; worsening Sacral decubitus ulcer (Stage II)- no signs of infection Recent Funguria and Dermabacter hominis bacteremia (at [facility]) Recent Severe Sepsis 2ry to UTI, pancreatitis (10/2017), s/p Rx -u/a wbc tnct, nit neg, leuk +3; ucx >100K K. pna (R cipro/levo,nitro, amp, bactrim, otherwise S) -lipase ~800> 400s -sp cx P. mirabilis I Cipro, otherwise S; PsA I CEftazidime; otherwise S ( likely colonizers, no PNA on CXR) Recent Septic shock 2ry to PNA, UTI 09/2017 -Bacteremia with Staph capitis/ contamination -Pneumonia with MDR Acinetobacter (S Tigecycicline, minocycline, Colistin/ polymixin B) & ESBL Proteus -UTI with ESBL Proteus CVA w/ R hemiplegia seizure disorder PUD Dementia renal insufficiency DM bed bound CAD s/p 3v CABG HTN GERD dysphagia s/p GT urinary retention multiple hospitalizations hx of Aspiration PNA NH resident DNR/DNI NKDA VRE colonized Plan: -Continue empiric Zosyn #4 and IV Vancomycin #2 to cover for possible PNA -low threshold to switch Zosyn to Meropenem if worsening sepsis -f/u cx -f/u sp cx -monitor CBC/CMP temperatures -aspiration precautions -PEG care -wound care/prevention per hospital protocol Thank you for this consultation. Will continue to follow along with you. Discussed with RN. Subjective Allergies: Coded Allergies: No Known Allergies (Verified , 01/02/09) Subjective afebrile in 36hrs Objective Vital Signs Last 24 Hour Vital Signs Date Time Temp Pulse Resp B/P (MAP) Pulse Ox O2 Delivery O2 Flow Rate FiO2 7/9/18 12:45 72 24 98 Simple Mask 5.0 40 11/24/17 12:45 72 24 98 5.0 40 11/24/17 12:36 74 24 95 Bi-pap 50 11/24/17 12:05 97.2 70 37 107/61 (76) 95 97.2 11/24/17 12:00 70 11/24/17 09:20 74 29 95 Facial 40 11/24/17 09:00 Endotracheal Tube 17.0 11/24/17 09:00 69 105/66 11/24/17 08:06 97.4 69 36 105/66 (79) 94 97.4 11/24/17 08:00 69 11/24/17 07:49 78 28 96 Bi-pap 40 11/24/17 07:40 78 28 96 Bi-pap 40 11/24/17 07:40 78 28 96 Facial 40 11/24/17 07:40 Bi-pap 40 11/24/17 07:40 96 Bi-pap 40 11/24/17 05:09 71 25 94 Facial 60 11/24/17 04:19 97.9 80 20 100/61 (74) 95 97.9 11/24/17 04:00 76 11/24/17 03:15 79 45 93 Facial 60 11/24/17 01:31 72 45 93 Bi-pap 60 11/24/17 01:09 70 43 93 Bi-pap 60 11/24/17 01:09 78 42 92 Facial 60 11/24/17 00:00 74 11/24/17 00:00 97.5 79 20 97/55 (69) 97 97.5 11/23/17 22:48 79 44 93 Facial 40 11/23/17 21:00 Non-Rebreather 15.0 11/23/17 21:00 77 102/59 11/23/17 20:44 77 43 99 Facial 40 11/23/17 20:00 97.0 81 20 102/59 (73) 96 97.0 11/23/17 20:00 77 11/23/17 19:24 76 43 93 Bi-pap 40 11/23/17 19:16 Bi-pap 40 11/23/17 19:16 92 Bi-pap 40 11/23/17 19:14 72 42 92 Bi-pap 40 11/23/17 19:00 76 42 98 Facial 40 11/23/17 17:24 76 33 98 Facial 40 11/23/17 16:16 76 11/23/17 16:00 97.2 79 20 100/57 (71) 96 97.2 11/23/17 15:00 75 32 95 Facial 40 Height (Feet): 6 Height (Inches): 0.00 Weight (Pounds): 190 Objective GENERAL: He is an elderly nonverbal male. HEENT: Normocephalic and atraumatic. Oropharynx is clear. NECK: Supple without lymphadenopathy. CHEST: Scattered, coarse. HEART: Regular. ABDOMEN: Benign. G-tube clean, dry, and intact. EXTREMITIES: No cyanosis, clubbing, or edema. Microbiology Date/Time Source Procedure Growth Status 11/21/17 21:55 Blood Blood Culture - Preliminary NO GROWTH AFTER 48 HOURS Resulted 11/21/17 21:40 Blood Blood Culture - Preliminary NO GROWTH AFTER 48 HOURS Resulted 11/21/17 23:40 Nasal Nares MRSA Culture - Final NO METHICILLIN RESISTANT STAPH AUREUS... Complete 11/21/17 23:40 Urine,Clean Catch Urine Culture - Final NO GROWTH AFTER 48 HOURS Complete 11/22/17 03:00 Sacral Wound Gram Stain - Final Resulted 11/22/17 03:00 Wound Culture - Preliminary Gram Negative Bacillus 1 Resulted 11/21/17 23:40 Rectum VRE Culture - Final Enterococcus Faecium - Vre Resulted 11/21/17 23:40 Rectum Pending Resulted Laboratory Tests Test 11/23/17 16:15 11/23/17 22:34 11/24/17 04:20 Sodium Level 147 MMOL/L (136-145) H 148 MMOL/L (136-145) H Potassium Level 3.5 MMOL/L (3.5-5.1) 3.3 MMOL/L (3.5-5.1) L Chloride Level 110 MMOL/L (98-107) H 108 MMOL/L (98-107) H Carbon Dioxide Level 33 MMOL/L (21-32) H 34 MMOL/L (21-32) H Anion Gap 5 mmol/L (5-15) 6 mmol/L (5-15) Blood Urea Nitrogen 77 mg/dL (7-18) H 79 mg/dL (7-18) H Creatinine 3.4 MG/DL (0.55-1.30) H 3.6 MG/DL (0.55-1.30) H Estimat Glomerular Filtration Rate mL/min (>60) mL/min (>60) Glucose Level 171 MG/DL (74-106) H 146 MG/DL (74-106) H Calcium Level 8.6 MG/DL (8.5-10.1) 8.5 MG/DL (8.5-10.1) Arterial Blood pH 7.456 (7.350-7.450) Arterial Blood Partial Pressure CO2 44.1 mmHg (35.0-45.0) Arterial Blood Partial Pressure O2 53.6 mmHg (75.0-100.0) L Arterial Blood HCO3 30.4 mmol/L (22.0-26.0) H Arterial Blood Oxygen Saturation 87.1 % (92.0-98.0) L Arterial Blood Base Excess 5.8 Librado Test Positive White Blood Count 15.0 K/UL (4.8-10.8) H Red Blood Count 3.50 M/UL (4.70-6.10) L Hemoglobin 9.2 G/DL (14.2-18.0) L Hematocrit 29.4 % (42.0-52.0) L Mean Corpuscular Volume 84 FL (80-99) Mean Corpuscular Hemoglobin 26.2 PG (27.0-31.0) L Mean Corpuscular Hemoglobin Concent 31.2 G/DL (32.0-36.0) L Red Cell Distribution Width 16.7 % (11.6-14.8) H Platelet Count 266 K/UL (150-450) Mean Platelet Volume 6.0 FL (6.5-10.1) L Neutrophils (%) (Auto) 68.4 % (45.0-75.0) Lymphocytes (%) (Auto) 22.8 % (20.0-45.0) Monocytes (%) (Auto) 6.1 % (1.0-10.0) Eosinophils (%) (Auto) 2.3 % (0.0-3.0) Basophils (%) (Auto) 0.3 % (0.0-2.0) Hemoglobin A1c 5.9 % (4.3-6.0) Uric Acid 8.7 MG/DL (2.6-7.2) H Phosphorus Level 2.6 MG/DL (2.5-4.9) Magnesium Level 2.4 MG/DL (1.8-2.4) Iron Level 23 ug/dL (50-175) L Total Iron Binding Capacity 91 ug/dL (250-450) L Percent Iron Saturation 25 % (15-50) Unsaturated Iron Binding 68 ug/dL (112-346) L Ferritin 732 NG/ML (8-388) H Total Bilirubin 0.2 MG/DL (0.2-1.0) Gamma Glutamyl Transpeptidase 29 U/L (5-85) Aspartate Amino Transf (AST/SGOT) 52 U/L (15-37) H Alanine Aminotransferase (ALT/SGPT) 36 U/L (12-78) Alkaline Phosphatase 83 U/L (46-116) Ammonia 23 umol/L (11-32) Troponin I 0.184 ng/mL (0.000-0.056) Pro-B-Type Natriuretic Peptide 5384 pg/mL (0-125) H Total Protein 7.7 G/DL (6.4-8.2) Albumin 1.5 G/DL (3.4-5.0) L Globulin 6.2 g/dL Albumin/Globulin Ratio 0.2 (1.0-2.7) L Triglycerides Level 106 MG/DL (30-150) Cholesterol Level < 50 MG/DL (< 200) LDL Cholesterol 19 mg/dL (<100) HDL Cholesterol 16 MG/DL (40-60) L Cholesterol/HDL Ratio 3.1 (3.3-4.4) L Lipase 315 U/L (73-393) Vitamin B12 Level 936 PG/ML (193-986) Folate 18.4 NG/ML (8.6-58.9) Thyroid Stimulating Hormone (TSH) 4.097 uiU/mL (0.358-3.740) Cortisol AM Sample 12.0 UG/DL Current Medications Medications (Trade) Dose Ordered Sig/Keira Route PRN Reason Start Time Stop Time Status Last Admin Dose Admin Acetaminophen (Tylenol) 650 mg Q4H PRN ORAL Mild Pain/Temp > 100.5 11/22/17 16:00 12/22/17 15:59 11/22/17 16:23 Albuterol/ Ipratropium (Albuterol/ Ipratropium) 3 ml Q4H PRN HHN Shortness of Breath 11/22/17 10:00 11/27/17 09:59 Albuterol/ Ipratropium (Albuterol/ Ipratropium) 3 ml Q6HRT HHN 11/22/17 13:00 11/27/17 12:59 11/24/17 12:36 Aspirin (Ecotrin) 81 mg DAILY ORAL 11/22/17 09:00 12/22/17 08:59 11/24/17 09:08 Carvedilol (Coreg) 6.25 mg Q12HR ORAL 11/23/17 21:00 12/23/17 20:59 Clopidogrel Bisulfate (Plavix) 75 mg DAILY GT 11/22/17 09:00 12/22/17 08:59 11/24/17 09:08 Dextrose (Dextrose 50%) 25 ml STAT PRN IV Hypoglycemia 11/24/17 11:15 12/24/17 11:14 Dextrose (Dextrose 50%) 50 ml STAT PRN IV Hypoglycemia 11/24/17 11:15 12/24/17 11:14 Docusate Sodium (Colace) 100 mg TID GT 11/23/17 13:00 12/23/17 12:59 11/24/17 09:08 Furosemide (Lasix) 40 mg DAILY ORAL 11/23/17 09:00 12/23/17 08:59 11/24/17 09:08 Heparin Sodium (Porcine) (Heparin 5000 units/ml) 5,000 units EVERY 12 HOURS SUBQ 11/22/17 09:00 12/22/17 08:59 11/24/17 09:09 Hydralazine HCl (Apresoline) 10 mg Q4H PRN GT For High BP over 160 syst 11/23/17 12:30 12/22/17 08:44 Insulin Aspart (NovoLOG) Q6HR SUBQ 11/24/17 13:00 12/24/17 12:59 11/24/17 13:07 Pantoprazole (Protonix) 40 mg EVERY 12 HOURS IVP 11/23/17 12:30 12/23/17 12:29 11/24/17 09:09 Piperacillin Sod/ Tazobactam Sod 3.375 gm/Sodium Chloride 110 ml @ 27.5 mls/hr Q12HR@0600,1800 IVPB 11/23/17 18:00 11/30/17 17:59 11/24/17 05:48 Vancomycin HCl (Vanco rx to dose) 1 ea DAILY PRN MISC Per rx protocol 11/23/17 15:00 12/23/17 14:59 Skyla Cullen M.D. Nov 24, 2017 14:23
[2017-11-24 16:06] VITALS: BP 120/70
--- NOTE | 2017-11-24 19:58 | Internal Med Progress Note ---
Subjective Date of Service: Nov 24, 2017 Physician Name Cesario Chacon Attending Physician Cesario Chacon Current Medications Medications (Trade) Dose Ordered Sig/Keira Route PRN Reason Start Time Stop Time Status Last Admin Dose Admin Acetaminophen (Tylenol) 650 mg Q4H PRN ORAL Mild Pain/Temp > 100.5 11/22/17 16:00 12/22/17 15:59 11/22/17 16:23 Albuterol/ Ipratropium (Albuterol/ Ipratropium) 3 ml Q4H PRN HHN Shortness of Breath 11/22/17 10:00 11/27/17 09:59 Albuterol/ Ipratropium (Albuterol/ Ipratropium) 3 ml Q6HRT HHN 11/22/17 13:00 11/27/17 12:59 11/24/17 12:36 Aspirin (Ecotrin) 81 mg DAILY ORAL 11/22/17 09:00 12/22/17 08:59 11/24/17 09:08 Carvedilol (Coreg) 6.25 mg Q12HR ORAL 11/23/17 21:00 12/23/17 20:59 Clopidogrel Bisulfate (Plavix) 75 mg DAILY GT 11/22/17 09:00 12/22/17 08:59 11/24/17 09:08 Dextrose (Dextrose 50%) 25 ml STAT PRN IV Hypoglycemia 11/24/17 11:15 12/24/17 11:14 Dextrose (Dextrose 50%) 50 ml STAT PRN IV Hypoglycemia 11/24/17 11:15 12/24/17 11:14 Docusate Sodium (Colace) 100 mg TID GT 11/23/17 13:00 12/23/17 12:59 11/24/17 17:54 Furosemide (Lasix) 40 mg DAILY ORAL 11/23/17 09:00 12/23/17 08:59 11/24/17 09:08 Heparin Sodium (Porcine) (Heparin 5000 units/ml) 5,000 units EVERY 12 HOURS SUBQ 11/22/17 09:00 12/22/17 08:59 11/24/17 09:09 Hydralazine HCl (Apresoline) 10 mg Q4H PRN GT For High BP over 160 syst 11/23/17 12:30 12/22/17 08:44 Insulin Aspart (NovoLOG) Q6HR SUBQ 11/24/17 13:00 12/24/17 12:59 11/24/17 17:57 Pantoprazole (Protonix) 40 mg EVERY 12 HOURS IVP 11/23/17 12:30 12/23/17 12:29 11/24/17 09:09 Piperacillin Sod/ Tazobactam Sod 3.375 gm/Sodium Chloride 110 ml @ 27.5 mls/hr Q12HR@0600,1800 IVPB 11/23/17 18:00 11/30/17 17:59 11/24/17 17:54 Vancomycin HCl (Vanco rx to dose) 1 ea DAILY PRN MISC Per rx protocol 11/23/17 15:00 12/23/17 14:59 Allergies: Coded Allergies: No Known Allergies (Verified , 01/02/09) ROS Limited/Unobtainable: Yes - non verbal Objective Last Vital Signs Date Time Temp Pulse Resp B/P (MAP) Pulse Ox O2 Delivery O2 Flow Rate FiO2 11/24/17 16:06 97.2 72 32 120/70 (87) 95 97.2 11/24/17 12:45 Simple Mask 5.0 40 General Appearance: mild distress, other - on bipap Neck: limited range of motion Cardiovascular: normal rate, regular rhythm, systolic murmur Respiratory/Chest: no accessory muscle use, rhonchi - bilaterally Abdomen: normal bowel sounds, non tender, soft, no mass, other - PEG Extremities: non-tender Edema: trace edema Neurologic: disoriented, unresponsiveness, aphasia Skin: warm/dry Laboratory Tests Test 11/23/17 22:34 11/24/17 04:20 Arterial Blood pH 7.456 (7.350-7.450) Arterial Blood Partial Pressure CO2 44.1 mmHg (35.0-45.0) Arterial Blood Partial Pressure O2 53.6 mmHg (75.0-100.0) L Arterial Blood HCO3 30.4 mmol/L (22.0-26.0) H Arterial Blood Oxygen Saturation 87.1 % (92.0-98.0) L Arterial Blood Base Excess 5.8 Librado Test Positive White Blood Count 15.0 K/UL (4.8-10.8) H Red Blood Count 3.50 M/UL (4.70-6.10) L Hemoglobin 9.2 G/DL (14.2-18.0) L Hematocrit 29.4 % (42.0-52.0) L Mean Corpuscular Volume 84 FL (80-99) Mean Corpuscular Hemoglobin 26.2 PG (27.0-31.0) L Mean Corpuscular Hemoglobin Concent 31.2 G/DL (32.0-36.0) L Red Cell Distribution Width 16.7 % (11.6-14.8) H Platelet Count 266 K/UL (150-450) Mean Platelet Volume 6.0 FL (6.5-10.1) L Neutrophils (%) (Auto) 68.4 % (45.0-75.0) Lymphocytes (%) (Auto) 22.8 % (20.0-45.0) Monocytes (%) (Auto) 6.1 % (1.0-10.0) Eosinophils (%) (Auto) 2.3 % (0.0-3.0) Basophils (%) (Auto) 0.3 % (0.0-2.0) Sodium Level 148 MMOL/L (136-145) H Potassium Level 3.3 MMOL/L (3.5-5.1) L Chloride Level 108 MMOL/L (98-107) H Carbon Dioxide Level 34 MMOL/L (21-32) H Anion Gap 6 mmol/L (5-15) Blood Urea Nitrogen 79 mg/dL (7-18) H Creatinine 3.6 MG/DL (0.55-1.30) H Estimat Glomerular Filtration Rate mL/min (>60) Glucose Level 146 MG/DL (74-106) H Hemoglobin A1c 5.9 % (4.3-6.0) Uric Acid 8.7 MG/DL (2.6-7.2) H Calcium Level 8.5 MG/DL (8.5-10.1) Phosphorus Level 2.6 MG/DL (2.5-4.9) Magnesium Level 2.4 MG/DL (1.8-2.4) Iron Level 23 ug/dL (50-175) L Total Iron Binding Capacity 91 ug/dL (250-450) L Percent Iron Saturation 25 % (15-50) Unsaturated Iron Binding 68 ug/dL (112-346) L Ferritin 732 NG/ML (8-388) H Total Bilirubin 0.2 MG/DL (0.2-1.0) Gamma Glutamyl Transpeptidase 29 U/L (5-85) Aspartate Amino Transf (AST/SGOT) 52 U/L (15-37) H Alanine Aminotransferase (ALT/SGPT) 36 U/L (12-78) Alkaline Phosphatase 83 U/L (46-116) Ammonia 23 umol/L (11-32) Troponin I 0.184 ng/mL (0.000-0.056) Pro-B-Type Natriuretic Peptide 5384 pg/mL (0-125) H Total Protein 7.7 G/DL (6.4-8.2) Albumin 1.5 G/DL (3.4-5.0) L Globulin 6.2 g/dL Albumin/Globulin Ratio 0.2 (1.0-2.7) L Triglycerides Level 106 MG/DL (30-150) Cholesterol Level < 50 MG/DL (< 200) LDL Cholesterol 19 mg/dL (<100) HDL Cholesterol 16 MG/DL (40-60) L Cholesterol/HDL Ratio 3.1 (3.3-4.4) L Lipase 315 U/L (73-393) Vitamin B12 Level 936 PG/ML (193-986) Folate 18.4 NG/ML (8.6-58.9) Thyroid Stimulating Hormone (TSH) 4.097 uiU/mL (0.358-3.740) Cortisol AM Sample 12.0 UG/DL Microbiology Date/Time Source Procedure Growth Status 11/21/17 21:55 Blood Blood Culture - Preliminary NO GROWTH AFTER 48 HOURS Resulted 11/21/17 21:40 Blood Blood Culture - Preliminary NO GROWTH AFTER 48 HOURS Resulted 11/21/17 23:40 Nasal Nares MRSA Culture - Final NO METHICILLIN RESISTANT STAPH AUREUS... Complete 11/21/17 23:40 Urine,Clean Catch Urine Culture - Final NO GROWTH AFTER 48 HOURS Complete 11/22/17 03:00 Sacral Wound Gram Stain - Final Resulted 11/22/17 03:00 Wound Culture - Preliminary Gram Negative Bacillus 1 Resulted 11/21/17 23:40 Rectum VRE Culture - Final Enterococcus Faecium - Vre Resulted 11/21/17 23:40 Rectum Pending Resulted Intake and Output 11/23/17 11/24/17 19:00 07:00 Intake Total 960 ml 987.5 ml Output Total 150 ml Balance 810 ml 987.5 ml Free Water 300 ml 300 ml IV Total 27.5 ml Tube Feeding 660 ml 660 ml Output Urine Total 150 ml # Bowel Movements 1 2 Assessment/Plan Status: progressing Assessment/Plan IMPRESSION: 1. SIRS. 2. Recurrent UTI. 3. Chronic hypercapnic and hypoxemic respiratory failure. 4. PAN on Chronic kidney disease, stage 3-4. likely ATN picture 5. Recent history of fungal cystitis. 6. Recent history of Dermabacter hominis bacteremia. 7. Recurrent pneumonia, aspiration pneumonitis. 8. History of GI bleed. 9. Anemia of chronic disease. 10. History of CVA with organic brain syndrome. 11. Chronic right-sided hemiplegia. 12. Dysphagia, status post gastrostomy tube placement. 13. Leukocytosis. 14. Bedbound. 15. Functional quadriplegia. PLAN: k replete monitor cr IVF BIPAP for now. Hold feeding while on BiPAP. Titrate FiO2 down as tolerated IV antibiotic./ follow up cultures ID and renal f/u. Tube feeding once off BiPAP. Monitor volume and renal function. DVT and GI prophylaxis. Pulmonary nebulizer. The patient is DNR and DNI. Case discussed with supervisor type bar and segment at length. over 35 min spent today time of this note may not be the actual encounter time with the patient. CESARIO CHACON Nov 24, 2017 19:58
[2017-11-24 21:02] VITALS: BP 95/59
[2017-11-25] VITALS: BP 96/57
[2017-11-25] MEDS: NovoLOG Insulin Flexpen SUBQ SCH ×4 (00:18→18:30)
[2017-11-25] MEDS: Albuterol/Ipratropium 3ml neb HHN SCH ×4 (00:55→20:08)
[2017-11-25 04:00] VITALS: BP 98/64
[2017-11-25] MEDS: Piperacillin/Tazobactam 3.375 GM in NS 110 ML IVPB SCH ×2 (06:03→18:28)
[2017-11-25 08:00] VITALS: BP 109/67
[2017-11-25] MEDS: Carvedilol 6.25mg Tab ORAL SCH ×2 (08:32→20:51)
[2017-11-25] MEDS: Furosemide 40mg tab ORAL SCH (08:39)
[2017-11-25] MEDS: Aspirin EC 81mg tab ORAL SCH (08:39)
[2017-11-25] MEDS: Pantoprazole Inj IVP SCH ×2 (08:39→20:43)
[2017-11-25] MEDS: Docusate 100mg/10ml Liq GT SCH ×3 (08:39→18:28)
[2017-11-25] MEDS: Heparin 5000 units/ml inj SUBQ SCH ×2 (08:40→20:44)
--- NOTE | 2017-11-25 09:49 | Nephrology Progress Note ---
Assessment/Plan Assessment/Plan 1. PAN on CKD 4- BL Cr 2.2 - Cr elevated at 3.6 and BUN 79 - Renal US, monitor while on lasix - cardiorenal component PAN 2. Hypokalemia- replace 3. Resp Fl- on lasix, monitor 4. HTN- stable Subjective Date patient seen: Nov 25, 2017 Time patient seen: 09:45 ROS Limited/Unobtainable: Yes Allergies: Coded Allergies: No Known Allergies (Verified , 01/02/09) All Systems: reviewed and negative except above Subjective Patient with NRB and in no acute distress Objective Last 24 Hour Vital Signs Date Time Temp Pulse Resp B/P (MAP) Pulse Ox O2 Delivery O2 Flow Rate FiO2 11/25/17 08:32 72 109/67 11/25/17 08:00 97.6 72 26 109/67 (81) 100 97.6 11/25/17 08:00 69 11/25/17 07:41 Simple Mask 6.0 11/25/17 07:41 96 Simple Mask 6.0 11/25/17 07:40 76 23 96 Simple Mask 6.0 40 11/25/17 07:20 67 22 96 Simple Mask 6.0 11/25/17 05:25 75 20 98 Facial 40 11/25/17 04:00 69 11/25/17 04:00 98.3 69 20 98/64 (75) 97 98.3 11/25/17 02:50 71 20 98 Facial 40 11/25/17 01:08 67 20 99 Simple Mask 5.0 40 11/25/17 00:55 72 18 99 Simple Mask 6.0 11/25/17 00:48 72 22 99 Facial 40 11/25/17 00:00 97.7 68 20 96/57 (70) 100 97.7 11/25/17 00:00 71 11/24/17 22:35 78 34 99 Facial 40 11/24/17 21:48 67 30 98 Facial 40 11/24/17 21:44 67 20 98 Simple Mask 5.0 40 11/24/17 21:34 Simple Mask 6.0 11/24/17 21:34 69 18 98 Simple Mask 6.0 11/24/17 21:34 98 Simple Mask 6.0 11/24/17 21:02 97.2 54 22 95/59 (71) 100 97.2 11/24/17 21:00 Simple Mask 5.0 11/24/17 20:38 54 95/59 11/24/17 20:00 65 11/24/17 16:06 97.2 72 32 120/70 (87) 95 97.2 11/24/17 16:00 69 11/24/17 12:45 72 24 98 Simple Mask 5.0 40 11/24/17 12:45 72 24 98 5.0 40 11/24/17 12:36 74 24 95 Bi-pap 50 11/24/17 12:05 97.2 70 37 107/61 (76) 95 97.2 11/24/17 12:00 70 Intake and Output 11/24/17 11/25/17 19:00 07:00 Intake Total 82.5 ml 475 ml Output Total 300 ml Balance 82.5 ml 175 ml Free Water 200 ml IV Total 82.5 ml Tube Feeding 275 ml Output Urine Total 300 ml # Bowel Movements 2 Height (Feet): 6 Height (Inches): 0.00 Weight (Pounds): 190 General Appearance: no apparent distress, alert EENT: normal ENT inspection Neck: normal alignment, supple Cardiovascular: normal rate, regular rhythm Respiratory/Chest: lungs clear, normal breath sounds Abdomen: non tender, soft Edema: no edema noted Arm (L), no edema noted Arm (R), no edema noted Leg (L), no edema noted Leg (R), no edema noted Pedal (L), no edema noted Pedal (R), no edema noted Generalized Tim Blake M.D. Nov 25, 2017 09:49
--- NOTE | 2017-11-25 10:18 | Infectious Diseases Prog Note ---
Assessment/Plan Assessment/Plan Assessment: Sepsis; improving Acute on chronic respiratory failure, on Bipap- probable PNA -CXR 11/24: Airspace disease in the right lung likely due to pneumonia. Small right pleural effusion -CXR 11/21: Elevated right hemidiaphragm. Large amount of gas in the bowel. Cardiomegaly. No definite infiltrate or pneumothorax -sp cx to be collected Leukocytosis/Low grade fever; fever improving, leukocytosis persistent; no cbc today -u/a wbc 10-15, nit neg, leuk +2; ucx neg -Bcx NTD PAN on CKD; worsening Sacral decubitus ulcer (Stage II)- no signs of infection -wound cx GNR Recent Funguria and Dermabacter hominis bacteremia (at [facility]) Recent Severe Sepsis 2ry to UTI, pancreatitis (10/2017), s/p Rx -u/a wbc tnct, nit neg, leuk +3; ucx >100K K. pna (R cipro/levo,nitro, amp, bactrim, otherwise S) -lipase ~800> 400s -sp cx P. mirabilis I Cipro, otherwise S; PsA I CEftazidime; otherwise S ( likely colonizers, no PNA on CXR) Recent Septic shock 2ry to PNA, UTI 09/2017 -Bacteremia with Staph capitis/ contamination -Pneumonia with MDR Acinetobacter (S Tigecycicline, minocycline, Colistin/ polymixin B) & ESBL Proteus -UTI with ESBL Proteus CVA w/ R hemiplegia seizure disorder PUD Dementia renal insufficiency DM bed bound CAD s/p 3v CABG HTN GERD dysphagia s/p GT urinary retention multiple hospitalizations hx of Aspiration PNA NH resident DNR/DNI NKDA VRE colonized Plan: -Continue empiric Zosyn #5 pending sputum cx -11/21 SP Levaquin x1 -low threshold to switch Zosyn to Meropenem if worsening sepsis , fever and or leukocytosis -Switch IV Vancomycin #3 to PO Linezoli to cover for possible PNA in view of worsening renal function. -f/u cx -f/u sp cx (re-ordered) -STAT CBC -monitor CBC/CMP temperatures -aspiration precautions -PEG care -wound care/prevention per hospital protocol Thank you for this consultation. Will continue to follow along with you. Discussed with RN and micro lab staff. Subjective Allergies: Coded Allergies: No Known Allergies (Verified , 01/02/09) Subjective afebrile in >48hrs no CBC today sp cx has not been collected Objective Vital Signs Last 24 Hour Vital Signs Date Time Temp Pulse Resp B/P (MAP) Pulse Ox O2 Delivery O2 Flow Rate FiO2 11/25/17 09:00 Endotracheal Tube 17.0 11/25/17 08:32 72 109/67 11/25/17 08:00 97.6 72 26 109/67 (81) 100 97.6 11/25/17 08:00 69 11/25/17 07:41 Simple Mask 6.0 11/25/17 07:41 96 Simple Mask 6.0 11/25/17 07:40 76 23 96 Simple Mask 6.0 40 11/25/17 07:20 67 22 96 Simple Mask 6.0 11/25/17 05:25 75 20 98 Facial 40 11/25/17 04:00 69 11/25/17 04:00 98.3 69 20 98/64 (75) 97 98.3 11/25/17 02:50 71 20 98 Facial 40 11/25/17 01:08 67 20 99 Simple Mask 5.0 40 11/25/17 00:55 72 18 99 Simple Mask 6.0 11/25/17 00:48 72 22 99 Facial 40 11/25/17 00:00 97.7 68 20 96/57 (70) 100 97.7 11/25/17 00:00 71 11/24/17 22:35 78 34 99 Facial 40 11/24/17 21:48 67 30 98 Facial 40 11/24/17 21:44 67 20 98 Simple Mask 5.0 40 11/24/17 21:34 Simple Mask 6.0 11/24/17 21:34 69 18 98 Simple Mask 6.0 11/24/17 21:34 98 Simple Mask 6.0 11/24/17 21:02 97.2 54 22 95/59 (71) 100 97.2 11/24/17 21:00 Simple Mask 5.0 11/24/17 20:38 54 95/59 11/24/17 20:00 65 11/24/17 16:06 97.2 72 32 120/70 (87) 95 97.2 11/24/17 16:00 69 11/24/17 12:45 72 24 98 Simple Mask 5.0 40 11/24/17 12:45 72 24 98 5.0 40 11/24/17 12:36 74 24 95 Bi-pap 50 11/24/17 12:05 97.2 70 37 107/61 (76) 95 97.2 11/24/17 12:00 70 Height (Feet): 6 Height (Inches): 0.00 Weight (Pounds): 190 Objective GENERAL: He is an elderly nonverbal male. HEENT: Normocephalic and atraumatic. Oropharynx is clear. NECK: Supple without lymphadenopathy. CHEST: Scattered, coarse. HEART: Regular. ABDOMEN: Benign. G-tube clean, dry, and intact. EXTREMITIES: No cyanosis, clubbing, or edema. Current Medications Medications (Trade) Dose Ordered Sig/Keira Route PRN Reason Start Time Stop Time Status Last Admin Dose Admin Acetaminophen (Tylenol) 650 mg Q4H PRN ORAL Mild Pain/Temp > 100.5 11/22/17 16:00 12/22/17 15:59 11/22/17 16:23 Albuterol/ Ipratropium (Albuterol/ Ipratropium) 3 ml Q4H PRN HHN Shortness of Breath 11/22/17 10:00 11/27/17 09:59 Albuterol/ Ipratropium (Albuterol/ Ipratropium) 3 ml Q6HRT HHN 11/22/17 13:00 11/27/17 12:59 11/25/17 07:21 Aspirin (Ecotrin) 81 mg DAILY ORAL 11/22/17 09:00 12/22/17 08:59 11/25/17 08:39 Carvedilol (Coreg) 6.25 mg Q12HR ORAL 11/23/17 21:00 12/23/17 20:59 Clopidogrel Bisulfate (Plavix) 75 mg DAILY GT 11/22/17 09:00 12/22/17 08:59 11/25/17 08:39 Dextrose (Dextrose 50%) 25 ml STAT PRN IV Hypoglycemia 11/24/17 11:15 12/24/17 11:14 Dextrose (Dextrose 50%) 50 ml STAT PRN IV Hypoglycemia 11/24/17 11:15 12/24/17 11:14 Docusate Sodium (Colace) 100 mg TID GT 11/23/17 13:00 8/7/18 12:59 11/25/17 08:39 Furosemide (Lasix) 40 mg DAILY ORAL 11/23/17 09:00 12/23/17 08:59 11/25/17 08:39 Heparin Sodium (Porcine) (Heparin 5000 units/ml) 5,000 units EVERY 12 HOURS SUBQ 11/22/17 09:00 12/22/17 08:59 11/25/17 08:40 Hydralazine HCl (Apresoline) 10 mg Q4H PRN GT For High BP over 160 syst 11/23/17 12:30 12/22/17 08:44 Insulin Aspart (NovoLOG) Q6HR SUBQ 11/24/17 13:00 12/24/17 12:59 11/25/17 00:18 Pantoprazole (Protonix) 40 mg EVERY 12 HOURS IVP 11/23/17 12:30 12/23/17 12:29 11/25/17 08:39 Piperacillin Sod/ Tazobactam Sod 3.375 gm/Sodium Chloride 110 ml @ 27.5 mls/hr Q12HR@0600,1800 IVPB 11/23/17 18:00 11/30/17 17:59 11/25/17 06:03 Potassium Chloride 100 ml @ 100 mls/hr NOW ONCE IVPB 11/25/17 10:00 11/25/17 10:59 Vancomycin HCl (Vanco rx to dose) 1 ea DAILY PRN MISC Per rx protocol 11/23/17 15:00 12/23/17 14:59 Skyla Cullen M.D. Nov 25, 2017 10:18
[2017-11-25 11:01] LABS: BASOPHILS % (AUTO) 0.4 % (0.0-2.0); HEMATOCRIT 31.1 % (42.0-52.0); HEMOGLOBIN 9.5 G/DL (14.2-18.0); LYMPHOCYTES % (AUTO) 25.4 % (20.0-45.0); MEAN CORPUSCULAR VOLUME 85 FL (80-99); MONOCYTES % (AUTO) 6.7 % (1.0-10.0); NEUTROPHILS % (AUTO) 61.5 % (45.0-75.0); PLATELET COUNT 262 K/UL (150-450); RED BLOOD COUNT 3.68 M/UL (4.70-6.10); RED CELL DISTRIBUTION WIDTH 17.1 % (11.6-14.8); WHITE BLOOD COUNT 11.2 K/UL (4.8-10.8)
--- NOTE | 2017-11-25 11:02 | Diagnostic Imaging Report ---
Indication: Abnormal renal function Technique: US Renal Comp Comparison: 11/14/2016 Findings: The exam due to body habitus and contracture. Right kidney measures 11.5 cm in length. Left kidney measures 12.7 cm in length. Both kidneys demonstrate increased echogenicity. A simple appearing cyst is noted in the upper pole the left kidney measuring 1.8 cm. No hydronephrosis identified. No Matson catheter identified within the bladder. Bladder is only mildly distended but otherwise unremarkable. IMPRESSION: * Increased echogenicity of the bilateral kidneys. Correlate for medical renal disease. * No evidence of hydronephrosis bilaterally. * In both-appearing left renal cyst. * Reported indwelling Matson catheter however no catheter is visualized within the bladder. If indeed there is a Matson catheter is in place, correlate clinically to assess for catheter malpositioning. This is discussed with the patient's treating nurse Dena on 2E. via telephone conversation the morning of 11/25/2017
[2017-11-25 11:22] LABS: ANION GAP 7 mmol/L (5-15); BLOOD UREA NITROGEN 97 mg/dL (7-18); CALCIUM 8.7 MG/DL (8.5-10.1); CARBON DIOXIDE 33 MMOL/L (21-32); CHLORIDE 109 MMOL/L (98-107); CREATININE 4.1 MG/DL (0.55-1.30); POTASSIUM 3.7 MMOL/L (3.5-5.1); SODIUM 149 MMOL/L (136-145)
--- NOTE | 2017-11-25 11:53 | Infectious Diseases Prog Note ---
Assessment/Plan Assessment/Plan antibiotics : linezolid, zosyn A 1. pneumonia 2. leucocytosis improving 3. renal failure 4. diabetes mellitus 5. hypertension P 1. continue zosyn 2, sputum culture 3. d/c linezolid 4. will follow up cultures Subjective ROS Limited/Unobtainable: Yes Allergies: Coded Allergies: No Known Allergies (Verified , 01/02/09) Objective Vital Signs Last 24 Hour Vital Signs Date Time Temp Pulse Resp B/P (MAP) Pulse Ox O2 Delivery O2 Flow Rate FiO2 11/25/17 09:00 Endotracheal Tube 17.0 11/25/17 08:32 72 109/67 11/25/17 08:00 97.6 72 26 109/67 (81) 100 97.6 11/25/17 08:00 69 11/25/17 07:41 Simple Mask 6.0 11/25/17 07:41 96 Simple Mask 6.0 11/25/17 07:40 76 23 96 Simple Mask 6.0 40 11/25/17 07:20 67 22 96 Simple Mask 6.0 11/25/17 05:25 75 20 98 Facial 40 11/25/17 04:00 69 11/25/17 04:00 98.3 69 20 98/64 (75) 97 98.3 11/25/17 02:50 71 20 98 Facial 40 11/25/17 01:08 67 20 99 Simple Mask 5.0 40 11/25/17 00:55 72 18 99 Simple Mask 6.0 11/25/17 00:48 72 22 99 Facial 40 11/25/17 00:00 97.7 68 20 96/57 (70) 100 97.7 11/25/17 00:00 71 11/24/17 22:35 78 34 99 Facial 40 11/24/17 21:48 67 30 98 Facial 40 11/24/17 21:44 67 20 98 Simple Mask 5.0 40 11/24/17 21:34 Simple Mask 6.0 11/24/17 21:34 69 18 98 Simple Mask 6.0 11/24/17 21:34 98 Simple Mask 6.0 11/24/17 21:02 97.2 54 22 95/59 (71) 100 97.2 11/24/17 21:00 Simple Mask 5.0 11/24/17 20:38 54 95/59 11/24/17 20:00 65 11/24/17 16:06 97.2 72 32 120/70 (87) 95 97.2 11/24/17 16:00 69 11/24/17 12:45 72 24 98 Simple Mask 5.0 40 11/24/17 12:45 72 24 98 5.0 40 11/24/17 12:36 74 24 95 Bi-pap 50 11/24/17 12:05 97.2 70 37 107/61 (76) 95 97.2 11/24/17 12:00 70 Height (Feet): 6 Height (Inches): 0.00 Weight (Pounds): 190 Respiratory/Chest: lungs clear Cardiovascular: normal rate, regular rhythm, no gallop/murmur Abdomen: soft, non tender, other - GT Extremities: no edema Laboratory Tests Test 11/25/17 10:40 White Blood Count 11.2 K/UL (4.8-10.8) H Red Blood Count 3.68 M/UL (4.70-6.10) L Hemoglobin 9.5 G/DL (14.2-18.0) L Hematocrit 31.1 % (42.0-52.0) L Mean Corpuscular Volume 85 FL (80-99) Mean Corpuscular Hemoglobin 25.9 PG (27.0-31.0) L Mean Corpuscular Hemoglobin Concent 30.5 G/DL (32.0-36.0) L Red Cell Distribution Width 17.1 % (11.6-14.8) H Platelet Count 262 K/UL (150-450) Mean Platelet Volume 5.4 FL (6.5-10.1) L Neutrophils (%) (Auto) 61.5 % (45.0-75.0) Lymphocytes (%) (Auto) 25.4 % (20.0-45.0) Monocytes (%) (Auto) 6.7 % (1.0-10.0) Eosinophils (%) (Auto) 6.0 % (0.0-3.0) H Basophils (%) (Auto) 0.4 % (0.0-2.0) Sodium Level 149 MMOL/L (136-145) H Potassium Level 3.7 MMOL/L (3.5-5.1) Chloride Level 109 MMOL/L (98-107) H Carbon Dioxide Level 33 MMOL/L (21-32) H Anion Gap 7 mmol/L (5-15) Blood Urea Nitrogen 97 mg/dL (7-18) H Creatinine 4.1 MG/DL (0.55-1.30) H Estimat Glomerular Filtration Rate mL/min (>60) Glucose Level 128 MG/DL (74-106) H Calcium Level 8.7 MG/DL (8.5-10.1) Current Medications Medications (Trade) Dose Ordered Sig/Keira Route PRN Reason Start Time Stop Time Status Last Admin Dose Admin Acetaminophen (Tylenol) 650 mg Q4H PRN ORAL Mild Pain/Temp > 100.5 11/22/17 16:00 12/22/17 15:59 11/22/17 16:23 Albuterol/ Ipratropium (Albuterol/ Ipratropium) 3 ml Q4H PRN HHN Shortness of Breath 11/22/17 10:00 11/27/17 09:59 Albuterol/ Ipratropium (Albuterol/ Ipratropium) 3 ml Q6HRT HHN 11/22/17 13:00 11/27/17 12:59 11/25/17 07:21 Aspirin (Ecotrin) 81 mg DAILY ORAL 11/22/17 09:00 12/22/17 08:59 11/25/17 08:39 Carvedilol (Coreg) 6.25 mg Q12HR ORAL 11/23/17 21:00 12/23/17 20:59 Clopidogrel Bisulfate (Plavix) 75 mg DAILY GT 11/22/17 09:00 12/22/17 08:59 11/25/17 08:39 Dextrose (Dextrose 50%) 25 ml STAT PRN IV Hypoglycemia 11/24/17 11:15 12/24/17 11:14 Dextrose (Dextrose 50%) 50 ml STAT PRN IV Hypoglycemia 11/24/17 11:15 12/24/17 11:14 Docusate Sodium (Colace) 100 mg TID GT 11/23/17 13:00 12/23/17 12:59 11/25/17 08:39 Furosemide (Lasix) 40 mg DAILY ORAL 11/23/17 09:00 12/23/17 08:59 11/25/17 08:39 Heparin Sodium (Porcine) (Heparin 5000 units/ml) 5,000 units EVERY 12 HOURS SUBQ 11/22/17 09:00 12/22/17 08:59 11/25/17 08:40 Hydralazine HCl (Apresoline) 10 mg Q4H PRN GT For High BP over 160 syst 11/23/17 12:30 12/22/17 08:44 Insulin Aspart (NovoLOG) Q6HR SUBQ 11/24/17 13:00 12/24/17 12:59 11/25/17 00:18 Linezolid (Zyvox) 600 mg EVERY 12 HOURS ORAL 11/25/17 21:00 11/30/17 20:59 Pantoprazole (Protonix) 40 mg EVERY 12 HOURS IVP 11/23/17 12:30 12/23/17 12:29 11/25/17 08:39 Piperacillin Sod/ Tazobactam Sod 3.375 gm/Sodium Chloride 110 ml @ 27.5 mls/hr Q12HR@0600,1800 IVPB 11/23/17 18:00 11/30/17 17:59 11/25/17 06:03 CONCHITA LAM Nov 25, 2017 11:53
[2017-11-25 12:00] VITALS: BP 108/61
[2017-11-25 16:00] VITALS: BP 115/66
--- NOTE | 2017-11-25 18:15 | Infectious Diseases Prog Note ---
Assessment/Plan Assessment/Plan patient being followed by another ID physician will sign off Thank you Subjective Allergies: Coded Allergies: No Known Allergies (Verified , 01/02/09) Objective Vital Signs Last 24 Hour Vital Signs Date Time Temp Pulse Resp B/P (MAP) Pulse Ox O2 Delivery O2 Flow Rate FiO2 11/25/17 16:00 97.0 65 27 115/66 (82) 100 97.0 11/25/17 16:00 65 11/25/17 13:13 74 22 96 Simple Mask 6.0 40 11/25/17 12:55 70 20 97 Simple Mask 6.0 11/25/17 12:00 97.2 64 27 108/61 (77) 96 97.2 11/25/17 12:00 64 11/25/17 09:00 Endotracheal Tube 17.0 11/25/17 08:32 72 109/67 11/25/17 08:00 97.6 72 26 109/67 (81) 100 97.6 11/25/17 08:00 69 11/25/17 07:41 Simple Mask 6.0 11/25/17 07:41 96 Simple Mask 6.0 11/25/17 07:40 76 23 96 Simple Mask 6.0 40 11/25/17 07:20 67 22 96 Simple Mask 6.0 11/25/17 05:25 75 20 98 Facial 40 11/25/17 04:00 69 11/25/17 04:00 98.3 69 20 98/64 (75) 97 98.3 11/25/17 02:50 71 20 98 Facial 40 11/25/17 01:08 67 20 99 Simple Mask 5.0 40 11/25/17 00:55 72 18 99 Simple Mask 6.0 11/25/17 00:48 72 22 99 Facial 40 11/25/17 00:00 97.7 68 20 96/57 (70) 100 97.7 11/25/17 00:00 71 11/24/17 22:35 78 34 99 Facial 40 11/24/17 21:48 67 30 98 Facial 40 11/24/17 21:44 67 20 98 Simple Mask 5.0 40 11/24/17 21:34 Simple Mask 6.0 11/24/17 21:34 69 18 98 Simple Mask 6.0 11/24/17 21:34 98 Simple Mask 6.0 11/24/17 21:02 97.2 54 22 95/59 (71) 100 97.2 11/24/17 21:00 Simple Mask 5.0 11/24/17 20:38 54 95/59 11/24/17 20:00 65 Height (Feet): 6 Height (Inches): 0.00 Weight (Pounds): 190 Laboratory Tests Test 11/25/17 10:40 White Blood Count 11.2 K/UL (4.8-10.8) H Red Blood Count 3.68 M/UL (4.70-6.10) L Hemoglobin 9.5 G/DL (14.2-18.0) L Hematocrit 31.1 % (42.0-52.0) L Mean Corpuscular Volume 85 FL (80-99) Mean Corpuscular Hemoglobin 25.9 PG (27.0-31.0) L Mean Corpuscular Hemoglobin Concent 30.5 G/DL (32.0-36.0) L Red Cell Distribution Width 17.1 % (11.6-14.8) H Platelet Count 262 K/UL (150-450) Mean Platelet Volume 5.4 FL (6.5-10.1) L Neutrophils (%) (Auto) 61.5 % (45.0-75.0) Lymphocytes (%) (Auto) 25.4 % (20.0-45.0) Monocytes (%) (Auto) 6.7 % (1.0-10.0) Eosinophils (%) (Auto) 6.0 % (0.0-3.0) H Basophils (%) (Auto) 0.4 % (0.0-2.0) Sodium Level 149 MMOL/L (136-145) H Potassium Level 3.7 MMOL/L (3.5-5.1) Chloride Level 109 MMOL/L (98-107) H Carbon Dioxide Level 33 MMOL/L (21-32) H Anion Gap 7 mmol/L (5-15) Blood Urea Nitrogen 97 mg/dL (7-18) H Creatinine 4.1 MG/DL (0.55-1.30) H Estimat Glomerular Filtration Rate mL/min (>60) Glucose Level 128 MG/DL (74-106) H Calcium Level 8.7 MG/DL (8.5-10.1) Current Medications Medications (Trade) Dose Ordered Sig/Keira Route PRN Reason Start Time Stop Time Status Last Admin Dose Admin Acetaminophen (Tylenol) 650 mg Q4H PRN ORAL Mild Pain/Temp > 100.5 11/22/17 16:00 12/22/17 15:59 11/22/17 16:23 Albuterol/ Ipratropium (Albuterol/ Ipratropium) 3 ml Q4H PRN HHN Shortness of Breath 11/22/17 10:00 11/27/17 09:59 Albuterol/ Ipratropium (Albuterol/ Ipratropium) 3 ml Q6HRT HHN 11/22/17 13:00 11/27/17 12:59 11/25/17 13:03 Aspirin (Ecotrin) 81 mg DAILY ORAL 11/22/17 09:00 12/22/17 08:59 11/25/17 08:39 Carvedilol (Coreg) 6.25 mg Q12HR ORAL 11/23/17 21:00 12/23/17 20:59 Clopidogrel Bisulfate (Plavix) 75 mg DAILY GT 11/22/17 09:00 12/22/17 08:59 11/25/17 08:39 Dextrose (Dextrose 50%) 25 ml STAT PRN IV Hypoglycemia 11/24/17 11:15 12/24/17 11:14 Dextrose (Dextrose 50%) 50 ml STAT PRN IV Hypoglycemia 11/24/17 11:15 12/24/17 11:14 Docusate Sodium (Colace) 100 mg TID GT 11/23/17 13:00 12/23/17 12:59 11/25/17 12:28 Furosemide (Lasix) 40 mg DAILY ORAL 11/23/17 09:00 12/23/17 08:59 11/25/17 08:39 Heparin Sodium (Porcine) (Heparin 5000 units/ml) 5,000 units EVERY 12 HOURS SUBQ 11/22/17 09:00 12/22/17 08:59 11/25/17 08:40 Hydralazine HCl (Apresoline) 10 mg Q4H PRN GT For High BP over 160 syst 11/23/17 12:30 12/22/17 08:44 Insulin Aspart (NovoLOG) Q6HR SUBQ 11/24/17 13:00 12/24/17 12:59 11/25/17 12:29 Linezolid (Zyvox) 600 mg EVERY 12 HOURS ORAL 11/25/17 21:00 11/30/17 20:59 Pantoprazole (Protonix) 40 mg EVERY 12 HOURS IVP 11/23/17 12:30 12/23/17 12:29 11/25/17 08:39 Piperacillin Sod/ Tazobactam Sod 3.375 gm/Sodium Chloride 110 ml @ 27.5 mls/hr Q12HR@0600,1800 IVPB 11/23/17 18:00 11/30/17 17:59 11/25/17 06:03 CONCHITA LAM Nov 25, 2017 18:15
[2017-11-25 20:00] VITALS: BP 111/61
--- NOTE | 2017-11-25 21:02 | Internal Med Progress Note ---
Subjective Date of Service: Nov 25, 2017 Physician Name Staci Chacon Attending Physician Staci Chacon Current Medications Medications (Trade) Dose Ordered Sig/Keira Route PRN Reason Start Time Stop Time Status Last Admin Dose Admin Acetaminophen (Tylenol) 650 mg Q4H PRN ORAL Mild Pain/Temp > 100.5 11/22/17 16:00 12/22/17 15:59 11/22/17 16:23 Albuterol/ Ipratropium (Albuterol/ Ipratropium) 3 ml Q4H PRN HHN Shortness of Breath 11/22/17 10:00 11/27/17 09:59 Albuterol/ Ipratropium (Albuterol/ Ipratropium) 3 ml Q6HRT HHN 11/22/17 13:00 11/27/17 12:59 11/25/17 20:08 Aspirin (Ecotrin) 81 mg DAILY ORAL 11/22/17 09:00 12/22/17 08:59 11/25/17 08:39 Carvedilol (Coreg) 6.25 mg Q12HR ORAL 11/23/17 21:00 12/23/17 20:59 Clopidogrel Bisulfate (Plavix) 75 mg DAILY GT 11/22/17 09:00 12/22/17 08:59 11/25/17 08:39 Dextrose (Dextrose 50%) 25 ml STAT PRN IV Hypoglycemia 11/24/17 11:15 12/24/17 11:14 Dextrose (Dextrose 50%) 50 ml STAT PRN IV Hypoglycemia 11/24/17 11:15 12/24/17 11:14 Docusate Sodium (Colace) 100 mg TID GT 11/23/17 13:00 12/23/17 12:59 11/25/17 18:28 Furosemide (Lasix) 40 mg DAILY ORAL 11/23/17 09:00 12/23/17 08:59 11/25/17 08:39 Heparin Sodium (Porcine) (Heparin 5000 units/ml) 5,000 units EVERY 12 HOURS SUBQ 11/22/17 09:00 12/22/17 08:59 11/25/17 20:44 Hydralazine HCl (Apresoline) 10 mg Q4H PRN GT For High BP over 160 syst 11/23/17 12:30 12/22/17 08:44 Insulin Aspart (NovoLOG) Q6HR SUBQ 11/24/17 13:00 12/24/17 12:59 11/25/17 18:30 Linezolid (Zyvox) 600 mg EVERY 12 HOURS ORAL 11/25/17 21:00 11/30/17 20:59 11/25/17 20:43 Pantoprazole (Protonix) 40 mg EVERY 12 HOURS IVP 11/23/17 12:30 12/23/17 12:29 11/25/17 20:43 Piperacillin Sod/ Tazobactam Sod 3.375 gm/Sodium Chloride 110 ml @ 27.5 mls/hr Q12HR@0600,1800 IVPB 11/23/17 18:00 11/30/17 17:59 11/25/17 18:28 Allergies: Coded Allergies: No Known Allergies (Verified , 01/02/09) ROS Limited/Unobtainable: Yes - nonverbal Objective Last Vital Signs Date Time Temp Pulse Resp B/P (MAP) Pulse Ox O2 Delivery O2 Flow Rate FiO2 11/25/17 20:51 63 105/55 11/25/17 20:19 18 98 Simple Mask 6.0 11/25/17 16:00 97.0 97.0 11/25/17 13:13 40 General Appearance: no apparent distress Neck: non-tender, supple, normal inspection Cardiovascular: normal rate, regular rhythm, systolic murmur Respiratory/Chest: no respiratory distress, no accessory muscle use, rhonchi - left Abdomen: normal bowel sounds, non tender, soft, other - PEG Genitourinary/Rectal: other - elder Neurologic: responsive, disoriented, other - +hemiplagia Skin: warm/dry Laboratory Tests Test 11/25/17 10:40 White Blood Count 11.2 K/UL (4.8-10.8) H Red Blood Count 3.68 M/UL (4.70-6.10) L Hemoglobin 9.5 G/DL (14.2-18.0) L Hematocrit 31.1 % (42.0-52.0) L Mean Corpuscular Volume 85 FL (80-99) Mean Corpuscular Hemoglobin 25.9 PG (27.0-31.0) L Mean Corpuscular Hemoglobin Concent 30.5 G/DL (32.0-36.0) L Red Cell Distribution Width 17.1 % (11.6-14.8) H Platelet Count 262 K/UL (150-450) Mean Platelet Volume 5.4 FL (6.5-10.1) L Neutrophils (%) (Auto) 61.5 % (45.0-75.0) Lymphocytes (%) (Auto) 25.4 % (20.0-45.0) Monocytes (%) (Auto) 6.7 % (1.0-10.0) Eosinophils (%) (Auto) 6.0 % (0.0-3.0) H Basophils (%) (Auto) 0.4 % (0.0-2.0) Sodium Level 149 MMOL/L (136-145) H Potassium Level 3.7 MMOL/L (3.5-5.1) Chloride Level 109 MMOL/L (98-107) H Carbon Dioxide Level 33 MMOL/L (21-32) H Anion Gap 7 mmol/L (5-15) Blood Urea Nitrogen 97 mg/dL (7-18) H Creatinine 4.1 MG/DL (0.55-1.30) H Estimat Glomerular Filtration Rate mL/min (>60) Glucose Level 128 MG/DL (74-106) H Calcium Level 8.7 MG/DL (8.5-10.1) Intake and Output 11/24/17 11/25/17 19:00 07:00 Intake Total 82.5 ml 475 ml Output Total 300 ml Balance 82.5 ml 175 ml Free Water 200 ml IV Total 82.5 ml Tube Feeding 275 ml Output Urine Total 300 ml # Bowel Movements 2 Assessment/Plan Status: doing well, stable, progressing Assessment/Plan IMPRESSION: 1. SIRS. 2. Recurrent UTI. 3. Chronic hypercapnic and hypoxemic respiratory failure. 4. PAN on Chronic kidney disease, stage 3-4. likely ATN picture 5. Recent history of fungal cystitis. 6. Recent history of Dermabacter hominis bacteremia. 7. Recurrent pneumonia, aspiration pneumonitis. 8. History of GI bleed. 9. Anemia of chronic disease. 10. History of CVA with organic brain syndrome. 11. Chronic right-sided hemiplegia. 12. Dysphagia, status post gastrostomy tube placement. 13. Leukocytosis. 14. Bedbound. 15. Functional quadriplegia. PLAN: k replete as needed monitor cr on lasix BIPAP QHS & PRN IV antibiotic./ follow up cultures ID and renal f/u. Tube feeding once off BiPAP. Monitor volume and renal function. DVT and GI prophylaxis. Pulmonary nebulizer. The patient is DNR and DNI. Case discussed with inspector canned food reconditioning at length. over 35 min spent today time of this note may not be the actual encounter time with the patient. STACI CHACON Nov 25, 2017 21:02
--- NOTE | 2017-11-25 22:40 | Pulmonology Progress Note ---
Assessment/Plan Problems: (1) HCAP (healthcare-associated pneumonia) (2) Aspiration pneumonia (3) UTI (urinary tract infection) (4) Acute respiratory failure (5) ARF (acute renal failure) (6) recent L MCA ischemic stroke (7) Encephalopathy due to infection (8) G-tube site cellulitis (9) Bacterial infection due to Staphylococcus (10) Hydronephrosis of left kidney Assessment/Plan ASSESSMENT: The patient is an 87-year-old male with history of CVA, aphasia, dysphagia, status post G-tube, anemia, hypertension, urinary retention, multiple recent hospitalizations, and chronic hypercapnic and hypoxemic respiratory failure, admitted with worsening shortness of breath, noted to have a UTI plus or minus pneumonic infiltrate. PROBLEM LIST: 1. Systemic inflammatory response syndrome. 2. Recurrent UTI. 3. Chronic hypercapnic and hypoxemic respiratory failure. 4. Respiratory muscle weakness. 5. Recent pneumonia and prolonged intubation. 6. Recent Dermabacter hominis bacteremia. 7. Recent fungal cystitis. 8. CHF with diastolic dysfunction. 9. PAN on CKD. 10. Anemia. 11. History of GI bleed. 12. History of CVA with organic brain syndrome. 13. Dysphagia, status post G-tube. TREATMENT PLAN: 1. Optimize pulmonary hygiene/mobilize as tolerated. 2. BiPAP 17/5 p.r.n. and nightly. 3. Titrate down FiO2 to keep saturations greater than 90%. 4. Omvji-xww-bzppg and p.r.n. DuoNebs. 5. Suctioning as able. 6. Abx per ID. 7. Follow up cultures. 8. Monitor CXR 9. Tube feeds 10. Monitor volumes and renal function. F/U renal recs, /U TTE to better assess filling pressures 11. DVT prophylaxis, heparin subcutaneous. 12. DNR/DNI. Subjective Allergies: Coded Allergies: No Known Allergies (Verified , 01/02/09) Subjective Breathing better but renal function worse AFVSS, off BiPAP Renal US noted No change in MS No cough, no SOB, no F/C Nubia TF's Objective Last 24 Hour Vital Signs Date Time Temp Pulse Resp B/P (MAP) Pulse Ox O2 Delivery O2 Flow Rate FiO2 11/25/17 20:51 63 105/55 11/25/17 20:19 70 18 98 Simple Mask 6.0 11/25/17 20:18 Simple Mask 6.0 11/25/17 20:10 66 20 96 Simple Mask 6.0 11/25/17 20:10 96 Simple Mask 6.0 11/25/17 20:00 97.9 68 24 111/61 (78) 100 97.9 11/25/17 20:00 70 11/25/17 16:00 97.0 65 27 115/66 (82) 100 97.0 11/25/17 16:00 65 11/25/17 13:13 74 22 96 Simple Mask 6.0 40 11/25/17 12:55 70 20 97 Simple Mask 6.0 11/25/17 12:00 97.2 64 27 108/61 (77) 96 97.2 11/25/17 12:00 64 11/25/17 09:00 Endotracheal Tube 17.0 11/25/17 08:32 72 109/67 11/25/17 08:00 97.6 72 26 109/67 (81) 100 97.6 11/25/17 08:00 69 11/25/17 07:41 Simple Mask 6.0 11/25/17 07:41 96 Simple Mask 6.0 11/25/17 07:40 76 23 96 Simple Mask 6.0 40 11/25/17 07:20 67 22 96 Simple Mask 6.0 11/25/17 05:25 75 20 98 Facial 40 11/25/17 04:00 69 11/25/17 04:00 98.3 69 20 98/64 (75) 97 98.3 11/25/17 02:50 71 20 98 Facial 40 11/25/17 01:08 67 20 99 Simple Mask 5.0 40 11/25/17 00:55 72 18 99 Simple Mask 6.0 11/25/17 00:48 72 22 99 Facial 40 11/25/17 00:00 97.7 68 20 96/57 (70) 100 97.7 11/25/17 00:00 71 Intake and Output 11/24/17 11/25/17 19:00 07:00 Intake Total 82.5 ml 475 ml Output Total 300 ml Balance 82.5 ml 175 ml Free Water 200 ml IV Total 82.5 ml Tube Feeding 275 ml Output Urine Total 300 ml # Bowel Movements 2 General Appearance: cachetic HEENT: normocephalic, atraumatic, anicteric, mucous membranes moist Respiratory/Chest: chest wall non-tender, rhonchi Cardiovascular: normal peripheral pulses, normal rate, regular rhythm Abdomen: normal bowel sounds, soft, non tender, no organomegaly, non distended Extremities: no cyanosis, no clubbing, no edema Laboratory Tests 11/25/17 10:40: White Blood Count 11.2H, Red Blood Count 3.68L, Hemoglobin 9.5L, Hematocrit 31.1L, Mean Corpuscular Volume 85, Mean Corpuscular Hemoglobin 25.9L, Mean Corpuscular Hemoglobin Concent 30.5L, Red Cell Distribution Width 17.1H, Platelet Count 262, Mean Platelet Volume 5.4L, Neutrophils (%) (Auto) 61.5, Lymphocytes (%) (Auto) 25.4, Monocytes (%) (Auto) 6.7, Eosinophils (%) (Auto) 6.0H, Basophils (%) (Auto) 0.4, Sodium Level 149H, Potassium Level 3.7, Chloride Level 109H, Carbon Dioxide Level 33H, Anion Gap 7, Blood Urea Nitrogen 97H, Creatinine 4.1H, Estimat Glomerular Filtration Rate , Glucose Level 128H, Calcium Level 8.7 Current Medications Medications (Trade) Dose Ordered Sig/Keira Route PRN Reason Start Time Stop Time Status Last Admin Dose Admin Acetaminophen (Tylenol) 650 mg Q4H PRN ORAL Mild Pain/Temp > 100.5 11/22/17 16:00 12/22/17 15:59 11/22/17 16:23 Albuterol/ Ipratropium (Albuterol/ Ipratropium) 3 ml Q4H PRN HHN Shortness of Breath 11/22/17 10:00 11/27/17 09:59 Albuterol/ Ipratropium (Albuterol/ Ipratropium) 3 ml Q6HRT HHN 11/22/17 13:00 11/27/17 12:59 11/25/17 20:08 Aspirin (Ecotrin) 81 mg DAILY ORAL 11/22/17 09:00 12/22/17 08:59 11/25/17 08:39 Carvedilol (Coreg) 6.25 mg Q12HR ORAL 11/23/17 21:00 12/23/17 20:59 Clopidogrel Bisulfate (Plavix) 75 mg DAILY GT 11/22/17 09:00 12/22/17 08:59 11/25/17 08:39 Dextrose (Dextrose 50%) 25 ml STAT PRN IV Hypoglycemia 11/24/17 11:15 12/24/17 11:14 Dextrose (Dextrose 50%) 50 ml STAT PRN IV Hypoglycemia 11/24/17 11:15 12/24/17 11:14 Docusate Sodium (Colace) 100 mg TID GT 11/23/17 13:00 12/23/17 12:59 11/25/17 18:28 Furosemide (Lasix) 40 mg DAILY ORAL 11/23/17 09:00 12/23/17 08:59 11/25/17 08:39 Heparin Sodium (Porcine) (Heparin 5000 units/ml) 5,000 units EVERY 12 HOURS SUBQ 11/22/17 09:00 12/22/17 08:59 11/25/17 20:44 Hydralazine HCl (Apresoline) 10 mg Q4H PRN GT For High BP over 160 syst 11/23/17 12:30 12/22/17 08:44 Insulin Aspart (NovoLOG) Q6HR SUBQ 11/24/17 13:00 12/24/17 12:59 11/25/17 18:30 Linezolid (Zyvox) 600 mg EVERY 12 HOURS ORAL 11/25/17 21:00 11/30/17 20:59 11/25/17 20:43 Pantoprazole (Protonix) 40 mg EVERY 12 HOURS IVP 11/23/17 12:30 12/23/17 12:29 11/25/17 20:43 Piperacillin Sod/ Tazobactam Sod 3.375 gm/Sodium Chloride 110 ml @ 27.5 mls/hr Q12HR@0600,1800 IVPB 11/23/17 18:00 11/30/17 17:59 11/25/17 18:28 Sagar Melvin MD Nov 25, 2017 22:40
[2017-11-26] VITALS: BP 105/64
[2017-11-26] MEDS: NovoLOG Insulin Flexpen SUBQ SCH ×4 (00:02→18:25)
[2017-11-26] MEDS: Albuterol/Ipratropium 3ml neb HHN SCH ×4 (01:56→20:06)
[2017-11-26 04:00] VITALS: BP 124/61
[2017-11-26] MEDS: Piperacillin/Tazobactam 3.375 GM in NS 110 ML IVPB SCH ×2 (06:00→18:26)
[2017-11-26 08:01] VITALS: BP 119/89
[2017-11-26] MEDS: Aspirin EC 81mg tab ORAL SCH (08:40)
[2017-11-26] MEDS: Docusate 100mg/10ml Liq GT SCH ×3 (08:40→17:21)
[2017-11-26] MEDS: Pantoprazole Inj IVP SCH ×2 (08:40→20:50)
[2017-11-26] MEDS: Furosemide 40mg tab ORAL SCH (08:40)
[2017-11-26] MEDS: Heparin 5000 units/ml inj SUBQ SCH ×2 (08:42→20:55)
[2017-11-26 08:57] LABS: BASOPHILS % (AUTO) 0.6 % (0.0-2.0); HEMATOCRIT 28.9 % (42.0-52.0); HEMOGLOBIN 8.7 G/DL (14.2-18.0); LYMPHOCYTES % (AUTO) 30.5 % (20.0-45.0); MEAN CORPUSCULAR VOLUME 86 FL (80-99); MONOCYTES % (AUTO) 6.7 % (1.0-10.0); NEUTROPHILS % (AUTO) 54.2 % (45.0-75.0); PLATELET COUNT 282 K/UL (150-450); RED BLOOD COUNT 3.36 M/UL (4.70-6.10); RED CELL DISTRIBUTION WIDTH 17.2 % (11.6-14.8)
[2017-11-26] MEDS: Carvedilol 6.25mg Tab ORAL SCH ×2 (09:00→21:00)
[2017-11-26 09:08] LABS: ANION GAP 11 mmol/L (5-15); BLOOD UREA NITROGEN 103 mg/dL (7-18); CALCIUM 9.4 MG/DL (8.5-10.1); CARBON DIOXIDE 30 MMOL/L (21-32); CHLORIDE 110 MMOL/L (98-107); CREATININE 4.2 MG/DL (0.55-1.30); POTASSIUM 3.8 MMOL/L (3.5-5.1); SODIUM 151 MMOL/L (136-145)
--- NOTE | 2017-11-26 09:18 | Nephrology Progress Note ---
Assessment/Plan Assessment/Plan 1. PAN on CKD 4- BL Cr 2.2 - Renal function worsened - replace elder as Renal Us could not confirm placement - cardiorenal component PAN - AM labs pending. BUN and Cr worsened. Dc lasix and IVF's for one day 2. Hypokalemia- replace prn. AM labs pending 3. Resp Fl- stable. IVF's 2.4 L and DC lasix. Re-eval in am 4. HTN- stable Subjective Date patient seen: Nov 26, 2017 Time patient seen: 09:14 ROS Limited/Unobtainable: Yes Allergies: Coded Allergies: No Known Allergies (Verified , 01/02/09) Subjective Patient with family at bedisde in no distress. Lying flat and breathing well Objective Last 24 Hour Vital Signs Date Time Temp Pulse Resp B/P (MAP) Pulse Ox O2 Delivery O2 Flow Rate FiO2 11/26/17 08:01 97.6 60 28 119/89 (99) 99 97.6 11/26/17 07:27 Nasal Cannula 5.0 11/26/17 07:27 96 Nasal Cannula 5.0 11/26/17 07:26 62 22 96 Nasal Cannula 5.0 40 11/26/17 07:10 60 23 98 Simple Mask 6.0 40 11/26/17 04:40 68 25 96 Facial 40 11/26/17 04:00 97.6 60 25 124/61 (82) 100 97.6 11/26/17 04:00 60 11/26/17 03:03 78 36 96 Facial 40 11/26/17 01:59 75 30 98 Bi-pap 40 11/26/17 01:50 77 35 95 Bi-pap 40 11/26/17 01:45 76 30 95 Facial 40 11/26/17 00:00 97.3 65 29 105/64 (78) 99 97.3 11/26/17 00:00 65 11/25/17 22:39 66 34 95 Facial 40 11/25/17 21:00 Simple Mask 5.0 11/25/17 20:51 63 105/55 11/25/17 20:19 70 18 98 Simple Mask 6.0 11/25/17 20:18 Simple Mask 6.0 11/25/17 20:10 66 20 96 Simple Mask 6.0 11/25/17 20:10 96 Simple Mask 6.0 11/25/17 20:00 97.9 68 24 111/61 (78) 100 97.9 11/25/17 20:00 70 11/25/17 16:00 97.0 65 27 115/66 (82) 100 97.0 11/25/17 16:00 65 11/25/17 13:13 74 22 96 Simple Mask 6.0 40 11/25/17 12:55 70 20 97 Simple Mask 6.0 11/25/17 12:00 97.2 64 27 108/61 (77) 96 97.2 11/25/17 12:00 64 Intake and Output 11/25/17 11/26/17 19:00 07:00 Output Total 300 ml 500 ml Balance -300 ml -500 ml Output Urine Total 300 ml 500 ml Laboratory Tests 11/25/17 10:40: White Blood Count 11.2H, Red Blood Count 3.68L, Hemoglobin 9.5L, Hematocrit 31.1L, Mean Corpuscular Volume 85, Mean Corpuscular Hemoglobin 25.9L, Mean Corpuscular Hemoglobin Concent 30.5L, Red Cell Distribution Width 17.1H, Platelet Count 262, Mean Platelet Volume 5.4L, Neutrophils (%) (Auto) 61.5, Lymphocytes (%) (Auto) 25.4, Monocytes (%) (Auto) 6.7, Eosinophils (%) (Auto) 6.0H, Basophils (%) (Auto) 0.4, Sodium Level 149H, Potassium Level 3.7, Chloride Level 109H, Carbon Dioxide Level 33H, Anion Gap 7, Blood Urea Nitrogen 97H, Creatinine 4.1H, Estimat Glomerular Filtration Rate , Glucose Level 128H, Calcium Level 8.7 11/26/17 08:20: White Blood Count [Pending], Red Blood Count [Pending], Hemoglobin [Pending], Hematocrit [Pending], Mean Corpuscular Volume [Pending], Mean Corpuscular Hemoglobin [Pending], Mean Corpuscular Hemoglobin Concent [Pending], Red Cell Distribution Width [Pending], Platelet Count [Pending], Mean Platelet Volume [ Pending], Neutrophils (%) (Auto) [Pending], Lymphocytes (%) (Auto) [Pending], Monocytes (%) (Auto) [Pending], Eosinophils (%) (Auto) [Pending], Basophils (%) (Auto) [Pending], Sodium Level 151H, Potassium Level 3.8, Chloride Level 110H, Carbon Dioxide Level 30, Anion Gap 11, Blood Urea Nitrogen 103H, Creatinine 4.2H , Estimat Glomerular Filtration Rate , Glucose Level 108H, Calcium Level 9.4 Height (Feet): 6 Height (Inches): 0.00 Weight (Pounds): 189 General Appearance: no apparent distress EENT: normal ENT inspection Neck: non-tender, normal alignment, supple Cardiovascular: normal rate, regular rhythm Respiratory/Chest: rhonchi - bilaterally Abdomen: non tender, soft Edema: no edema noted Arm (L), no edema noted Arm (R), no edema noted Leg (L), no edema noted Leg (R), no edema noted Pedal (L), no edema noted Pedal (R), no edema noted Generalized Tim Blake M.D. Nov 26, 2017 09:18
[2017-11-26 11:42] VITALS: BP 136/78
--- NOTE | 2017-11-26 12:00 | Diagnostic Imaging Report ---
Indication: Dyspnea Comparison: 11/24/2017 A single view chest radiograph was obtained. Findings: Evidence of pulmonary interstitial edema with prominent vascularity and heart size. A small right pleural effusion is suspected also. IMPRESSION: CHF/interstitial edema slightly worse
--- NOTE | 2017-11-26 14:11 | Infectious Diseases Prog Note ---
Assessment/Plan Assessment/Plan Assessment: Sepsis; improving Acute on chronic respiratory failure, on Bipap- probable PNA -CXR 11/26: CHF/interstitial edema slightly worse -CXR 11/24: Airspace disease in the right lung likely due to pneumonia. Small right pleural effusion -CXR 11/21: Elevated right hemidiaphragm. Large amount of gas in the bowel. Cardiomegaly. No definite infiltrate or pneumothorax -sp cx to be collected Leukocytosis/Low grade fever; improving -u/a wbc 10-15, nit neg, leuk +2; ucx neg -Bcx NTD PAN on CKD; worsening Sacral decubitus ulcer (Stage II)- no signs of infection -wound cx MDR ABC, GNR #2, #3 (colonizers) Recent Funguria and Dermabacter hominis bacteremia (at [facility]) Recent Severe Sepsis 2ry to UTI, pancreatitis (10/2017), s/p Rx -u/a wbc tnct, nit neg, leuk +3; ucx >100K K. pna (R cipro/levo,nitro, amp, bactrim, otherwise S) -lipase ~800> 400s -sp cx P. mirabilis I Cipro, otherwise S; PsA I CEftazidime; otherwise S ( likely colonizers, no PNA on CXR) Recent Septic shock 2ry to PNA, UTI 09/2017 -Bacteremia with Staph capitis/ contamination -Pneumonia with MDR Acinetobacter (S Tigecycicline, minocycline, Colistin/ polymixin B) & ESBL Proteus -UTI with ESBL Proteus CVA w/ R hemiplegia seizure disorder PUD Dementia renal insufficiency DM bed bound CAD s/p 3v CABG HTN GERD dysphagia s/p GT urinary retention multiple hospitalizations hx of Aspiration PNA [place] resident DNR/DNI NKDA VRE colonized Plan: -Continue empiric Zosyn #5/7-10 and Linezolid abx d #4/5 for sepsis and probable pNA -11/25 SP IV Vancomycin #3 -11/21 SP Levaquin x1 -low threshold to switch Zosyn to Meropenem if worsening sepsis , fever and or leukocytosis -f/u cx -monitor CBC/CMP temperatures -aspiration precautions -PEG care -wound care/prevention per hospital protocol Thank you for this consultation. Will continue to follow along with you. Discussed with RN. Subjective Allergies: Coded Allergies: No Known Allergies (Verified , 01/02/09) Subjective afebrile in >48hrs no CBC today sp cx has not been collected Objective Vital Signs Last 24 Hour Vital Signs Date Time Temp Pulse Resp B/P (MAP) Pulse Ox O2 Delivery O2 Flow Rate FiO2 11/26/17 13:46 98 Nasal Cannula 4.0 11/26/17 13:46 63 24 98 Nasal Cannula 4.0 36 11/26/17 13:32 61 20 99 Nasal Cannula 5.0 40 11/26/17 12:00 63 11/26/17 11:42 97.2 66 26 136/78 (97) 72 97.2 11/26/17 11:00 Nasal Cannula 5.0 11/26/17 10:13 Nasal Cannula 5.0 11/26/17 09:00 60 119/89 11/26/17 08:01 97.6 60 28 119/89 (99) 99 97.6 11/26/17 08:00 65 11/26/17 07:27 Nasal Cannula 5.0 11/26/17 07:27 96 Nasal Cannula 5.0 11/26/17 07:26 62 22 96 Nasal Cannula 5.0 40 11/26/17 07:10 60 23 98 Simple Mask 6.0 40 11/26/17 04:40 68 25 96 Facial 40 11/26/17 04:00 97.6 60 25 124/61 (82) 100 97.6 11/26/17 04:00 60 11/26/17 03:03 78 36 96 Facial 40 11/26/17 01:59 75 30 98 Bi-pap 40 11/26/17 01:50 77 35 95 Bi-pap 40 11/26/17 01:45 76 30 95 Facial 40 11/26/17 00:00 97.3 65 29 105/64 (78) 99 97.3 11/26/17 00:00 65 11/25/17 22:39 66 34 95 Facial 40 11/25/17 21:00 Simple Mask 5.0 11/25/17 20:51 63 105/55 11/25/17 20:19 70 18 98 Simple Mask 6.0 11/25/17 20:18 Simple Mask 6.0 11/25/17 20:10 66 20 96 Simple Mask 6.0 11/25/17 20:10 96 Simple Mask 6.0 11/25/17 20:00 97.9 68 24 111/61 (78) 100 97.9 11/25/17 20:00 70 11/25/17 16:00 97.0 65 27 115/66 (82) 100 97.0 11/25/17 16:00 65 Height (Feet): 6 Height (Inches): 0.00 Weight (Pounds): 189 Objective GENERAL: He is an elderly nonverbal male. HEENT: Normocephalic and atraumatic. Oropharynx is clear. NECK: Supple without lymphadenopathy. CHEST: Scattered, coarse. HEART: Regular. ABDOMEN: Benign. G-tube clean, dry, and intact. EXTREMITIES: No cyanosis, clubbing, or edema. Microbiology Date/Time Source Procedure Growth Status 11/25/17 11:30 Sputum Gram Stain Pending Resulted 11/25/17 11:30 Sputum Culture - Preliminary Gram Negative Bacillus 1 Resulted Laboratory Tests Test 11/26/17 08:20 White Blood Count 11.0 K/UL (4.8-10.8) H Red Blood Count 3.36 M/UL (4.70-6.10) L Hemoglobin 8.7 G/DL (14.2-18.0) L Hematocrit 28.9 % (42.0-52.0) L Mean Corpuscular Volume 86 FL (80-99) Mean Corpuscular Hemoglobin 25.8 PG (27.0-31.0) L Mean Corpuscular Hemoglobin Concent 30.0 G/DL (32.0-36.0) L Red Cell Distribution Width 17.2 % (11.6-14.8) H Platelet Count 282 K/UL (150-450) Mean Platelet Volume 5.9 FL (6.5-10.1) L Neutrophils (%) (Auto) 54.2 % (45.0-75.0) Lymphocytes (%) (Auto) 30.5 % (20.0-45.0) Monocytes (%) (Auto) 6.7 % (1.0-10.0) Eosinophils (%) (Auto) 8.0 % (0.0-3.0) H Basophils (%) (Auto) 0.6 % (0.0-2.0) Sodium Level 151 MMOL/L (136-145) H Potassium Level 3.8 MMOL/L (3.5-5.1) Chloride Level 110 MMOL/L (98-107) H Carbon Dioxide Level 30 MMOL/L (21-32) Anion Gap 11 mmol/L (5-15) Blood Urea Nitrogen 103 mg/dL (7-18) H Creatinine 4.2 MG/DL (0.55-1.30) H Estimat Glomerular Filtration Rate mL/min (>60) Glucose Level 108 MG/DL (74-106) H Calcium Level 9.4 MG/DL (8.5-10.1) Current Medications Medications (Trade) Dose Ordered Sig/Keira Route PRN Reason Start Time Stop Time Status Last Admin Dose Admin Acetaminophen (Tylenol) 650 mg Q4H PRN ORAL Mild Pain/Temp > 100.5 11/22/17 16:00 12/22/17 15:59 11/22/17 16:23 Albuterol/ Ipratropium (Albuterol/ Ipratropium) 3 ml Q4H PRN HHN Shortness of Breath 11/22/17 10:00 11/27/17 09:59 Albuterol/ Ipratropium (Albuterol/ Ipratropium) 3 ml Q6HRT HHN 11/22/17 13:00 11/27/17 12:59 11/26/17 13:34 Aspirin (Ecotrin) 81 mg DAILY ORAL 11/22/17 09:00 12/22/17 08:59 11/26/17 08:40 Carvedilol (Coreg) 6.25 mg Q12HR ORAL 11/23/17 21:00 12/23/17 20:59 Clopidogrel Bisulfate (Plavix) 75 mg DAILY GT 11/22/17 09:00 12/22/17 08:59 11/26/17 08:40 Dextrose (Dextrose 50%) 25 ml STAT PRN IV Hypoglycemia 11/24/17 11:15 12/24/17 11:14 Dextrose (Dextrose 50%) 50 ml STAT PRN IV Hypoglycemia 11/24/17 11:15 12/24/17 11:14 Docusate Sodium (Colace) 100 mg TID GT 11/23/17 13:00 12/23/17 12:59 11/26/17 08:40 Heparin Sodium (Porcine) (Heparin 5000 units/ml) 5,000 units EVERY 12 HOURS SUBQ 11/22/17 09:00 12/22/17 08:59 11/26/17 08:42 Hydralazine HCl (Apresoline) 10 mg Q4H PRN GT For High BP over 160 syst 11/23/17 12:30 12/22/17 08:44 Insulin Aspart (NovoLOG) Q6HR SUBQ 11/24/17 13:00 12/24/17 12:59 11/26/17 00:02 Linezolid (Zyvox) 600 mg EVERY 12 HOURS ORAL 11/25/17 21:00 11/30/17 20:59 11/26/17 08:41 Pantoprazole (Protonix) 40 mg EVERY 12 HOURS IVP 11/23/17 12:30 12/23/17 12:29 11/26/17 08:40 Piperacillin Sod/ Tazobactam Sod 3.375 gm/Sodium Chloride 110 ml @ 27.5 mls/hr Q12HR@0600,1800 IVPB 11/23/17 18:00 11/30/17 17:59 11/26/17 06:00 Sodium Chloride 1,000 ml @ 100 mls/hr Q10H IV 11/26/17 10:00 12/26/17 09:59 11/26/17 09:42 Skyla Cullen M.D. Nov 26, 2017 14:11
[2017-11-26 15:57] VITALS: BP 141/72
--- NOTE | 2017-11-26 19:49 | Pulmonology Progress Note ---
Assessment/Plan Problems: (1) HCAP (healthcare-associated pneumonia) (2) Aspiration pneumonia (3) UTI (urinary tract infection) (4) Acute respiratory failure (5) ARF (acute renal failure) (6) recent L MCA ischemic stroke (7) Encephalopathy due to infection (8) G-tube site cellulitis (9) Bacterial infection due to Staphylococcus (10) Hydronephrosis of left kidney Assessment/Plan ASSESSMENT: The patient is an 87-year-old male with history of CVA, aphasia, dysphagia, status post G-tube, anemia, hypertension, urinary retention, multiple recent hospitalizations, and chronic hypercapnic and hypoxemic respiratory failure, admitted with worsening shortness of breath, noted to have a UTI plus or minus pneumonic infiltrate. PROBLEM LIST: 1. Systemic inflammatory response syndrome. 2. Recurrent UTI. 3. Chronic hypercapnic and hypoxemic respiratory failure. 4. Respiratory muscle weakness. 5. Recent pneumonia and prolonged intubation. 6. Recent Dermabacter hominis bacteremia. 7. Recent fungal cystitis. 8. CHF with diastolic dysfunction. 9. PAN on CKD. 10. Anemia. 11. History of GI bleed. 12. History of CVA with organic brain syndrome. 13. Dysphagia, status post G-tube. TREATMENT PLAN: 1. Optimize pulmonary hygiene/mobilize as tolerated. 2. BiPAP 17/5 p.r.n. and nightly. 3. Titrate down FiO2 to keep saturations greater than 90%. 4. Ziscp-vkm-lpdqs and p.r.n. DuoNebs. 5. Suctioning as able. 6. Abx per ID. 7. Follow up cultures. 8. Monitor CXR 9. Tube feeds 10. Monitor volumes and renal function. F/U renal recs, if renal function does not improve next few days may need HD 11. DVT prophylaxis, heparin subcutaneous. 12. DNR/DNI. Subjective Allergies: Coded Allergies: No Known Allergies (Verified , 01/02/09) Subjective Breathing better but renal function worse AFVSS, off BiPAP - used in [place] Lasix held getting IVF No change in MS No cough, no SOB, no F/C Nubia TF's Objective Last 24 Hour Vital Signs Date Time Temp Pulse Resp B/P (MAP) Pulse Ox O2 Delivery O2 Flow Rate FiO2 11/26/17 16:00 63 11/26/17 15:57 96.3 65 26 141/72 (95) 100 96.3 11/26/17 13:46 98 Nasal Cannula 4.0 11/26/17 13:46 63 24 98 Nasal Cannula 4.0 36 11/26/17 13:32 61 20 99 Nasal Cannula 5.0 40 11/26/17 12:00 63 11/26/17 11:42 97.2 66 26 136/78 (97) 99 97.2 11/26/17 11:00 Nasal Cannula 5.0 11/26/17 10:13 Nasal Cannula 5.0 11/26/17 09:00 60 119/89 11/26/17 08:01 97.6 60 28 119/89 (99) 99 97.6 11/26/17 08:00 65 11/26/17 07:27 Nasal Cannula 5.0 11/26/17 07:27 96 Nasal Cannula 5.0 11/26/17 07:26 62 22 96 Nasal Cannula 5.0 40 11/26/17 07:10 60 23 98 Simple Mask 6.0 40 11/26/17 04:40 68 25 96 Facial 40 11/26/17 04:00 97.6 60 25 124/61 (82) 100 97.6 11/26/17 04:00 60 11/26/17 03:03 78 36 96 Facial 40 11/26/17 01:59 75 30 98 Bi-pap 40 11/26/17 01:50 77 35 95 Bi-pap 40 11/26/17 01:45 76 30 95 Facial 40 11/26/17 00:00 97.3 65 29 105/64 (78) 99 97.3 11/26/17 00:00 65 11/25/17 22:39 66 34 95 Facial 40 11/25/17 21:00 Simple Mask 5.0 11/25/17 20:51 63 105/55 11/25/17 20:19 70 18 98 Simple Mask 6.0 11/25/17 20:18 Simple Mask 6.0 11/25/17 20:10 66 20 96 Simple Mask 6.0 11/25/17 20:10 96 Simple Mask 6.0 11/25/17 20:00 97.9 68 24 111/61 (78) 100 97.9 11/25/17 20:00 70 Intake and Output 11/25/17 11/26/17 19:00 07:00 Output Total 300 ml 500 ml Balance -300 ml -500 ml Output Urine Total 300 ml 500 ml General Appearance: no acute distress, cachetic HEENT: normocephalic, atraumatic, anicteric, mucous membranes moist Respiratory/Chest: chest wall non-tender, lungs clear, normal breath sounds, no respiratory distress, no accessory muscle use Cardiovascular: normal peripheral pulses, normal rate, regular rhythm Abdomen: normal bowel sounds, soft, non tender, no organomegaly, non distended , no mass Extremities: no cyanosis, no clubbing, no edema Microbiology Date/Time Source Procedure Growth Status 11/25/17 11:30 Sputum Gram Stain Pending Resulted 11/25/17 11:30 Sputum Culture - Preliminary Gram Negative Bacillus 1 Resulted Laboratory Tests 11/26/17 08:20: White Blood Count 11.0H, Red Blood Count 3.36L, Hemoglobin 8.7L, Hematocrit 28.9L, Mean Corpuscular Volume 86, Mean Corpuscular Hemoglobin 25.8L, Mean Corpuscular Hemoglobin Concent 30.0L, Red Cell Distribution Width 17.2H, Platelet Count 282, Mean Platelet Volume 5.9L, Neutrophils (%) (Auto) 54.2, Lymphocytes (%) (Auto) 30.5, Monocytes (%) (Auto) 6.7, Eosinophils (%) (Auto) 8.0H, Basophils (%) (Auto) 0.6, Sodium Level 151H, Potassium Level 3.8, Chloride Level 110H, Carbon Dioxide Level 30, Anion Gap 11, Blood Urea Nitrogen 103H, Creatinine 4.2H, Estimat Glomerular Filtration Rate , Glucose Level 108H, Calcium Level 9.4 Current Medications Medications (Trade) Dose Ordered Sig/Keira Route PRN Reason Start Time Stop Time Status Last Admin Dose Admin Acetaminophen (Tylenol) 650 mg Q4H PRN ORAL Mild Pain/Temp > 100.5 11/22/17 16:00 12/22/17 15:59 11/22/17 16:23 Albuterol/ Ipratropium (Albuterol/ Ipratropium) 3 ml Q4H PRN HHN Shortness of Breath 11/22/17 10:00 11/27/17 09:59 Albuterol/ Ipratropium (Albuterol/ Ipratropium) 3 ml Q6HRT HHN 11/22/17 13:00 11/27/17 12:59 11/26/17 13:34 Aspirin (Ecotrin) 81 mg DAILY ORAL 11/22/17 09:00 12/22/17 08:59 11/26/17 08:40 Carvedilol (Coreg) 6.25 mg Q12HR ORAL 11/23/17 21:00 12/23/17 20:59 Clopidogrel Bisulfate (Plavix) 75 mg DAILY GT 11/22/17 09:00 12/22/17 08:59 11/26/17 08:40 Dextrose (Dextrose 50%) 25 ml STAT PRN IV Hypoglycemia 11/24/17 11:15 12/24/17 11:14 Dextrose (Dextrose 50%) 50 ml STAT PRN IV Hypoglycemia 11/24/17 11:15 12/24/17 11:14 Docusate Sodium (Colace) 100 mg TID GT 11/23/17 13:00 12/23/17 12:59 11/26/17 08:40 Heparin Sodium (Porcine) (Heparin 5000 units/ml) 5,000 units EVERY 12 HOURS SUBQ 11/22/17 09:00 12/22/17 08:59 11/26/17 08:42 Hydralazine HCl (Apresoline) 10 mg Q4H PRN GT For High BP over 160 syst 11/23/17 12:30 12/22/17 08:44 Insulin Aspart (NovoLOG) Q6HR SUBQ 11/24/17 13:00 12/24/17 12:59 11/26/17 18:25 Linezolid (Zyvox) 600 mg EVERY 12 HOURS ORAL 11/25/17 21:00 11/30/17 20:59 11/26/17 08:41 Pantoprazole (Protonix) 40 mg EVERY 12 HOURS IVP 11/23/17 12:30 12/23/17 12:29 11/26/17 08:40 Piperacillin Sod/ Tazobactam Sod 3.375 gm/Sodium Chloride 110 ml @ 27.5 mls/hr Q12HR@0600,1800 IVPB 11/23/17 18:00 11/30/17 17:59 11/26/17 18:26 Sodium Chloride 1,000 ml @ 100 mls/hr Q10H IV 11/26/17 10:00 12/26/17 09:59 11/26/17 09:42 Sagar Melvin MD Nov 26, 2017 19:49
[2017-11-26 20:00] VITALS: BP 128/69
--- NOTE | 2017-11-26 23:58 | Internal Med Progress Note ---
Subjective Date of Service: Nov 26, 2017 Physician Name Staci Chacon Attending Physician Staci Chacon Current Medications Medications (Trade) Dose Ordered Sig/Keira Route PRN Reason Start Time Stop Time Status Last Admin Dose Admin Acetaminophen (Tylenol) 650 mg Q4H PRN ORAL Mild Pain/Temp > 100.5 11/22/17 16:00 12/22/17 15:59 11/22/17 16:23 Albuterol/ Ipratropium (Albuterol/ Ipratropium) 3 ml Q4H PRN HHN Shortness of Breath 11/22/17 10:00 11/27/17 09:59 Albuterol/ Ipratropium (Albuterol/ Ipratropium) 3 ml Q6HRT HHN 11/22/17 13:00 11/27/17 12:59 11/26/17 20:06 Aspirin (Ecotrin) 81 mg DAILY ORAL 11/22/17 09:00 12/22/17 08:59 11/26/17 08:40 Carvedilol (Coreg) 6.25 mg Q12HR ORAL 11/23/17 21:00 12/23/17 20:59 Clopidogrel Bisulfate (Plavix) 75 mg DAILY GT 11/22/17 09:00 12/22/17 08:59 11/26/17 08:40 Dextrose (Dextrose 50%) 25 ml STAT PRN IV Hypoglycemia 11/24/17 11:15 12/24/17 11:14 Dextrose (Dextrose 50%) 50 ml STAT PRN IV Hypoglycemia 11/24/17 11:15 12/24/17 11:14 Docusate Sodium (Colace) 100 mg TID GT 11/23/17 13:00 12/23/17 12:59 11/26/17 08:40 Heparin Sodium (Porcine) (Heparin 5000 units/ml) 5,000 units EVERY 12 HOURS SUBQ 11/22/17 09:00 12/22/17 08:59 11/26/17 20:55 Hydralazine HCl (Apresoline) 10 mg Q4H PRN GT For High BP over 160 syst 11/23/17 12:30 12/22/17 08:44 Insulin Aspart (NovoLOG) Q6HR SUBQ 11/24/17 13:00 12/24/17 12:59 11/26/17 18:25 Linezolid (Zyvox) 600 mg EVERY 12 HOURS ORAL 11/25/17 21:00 11/30/17 20:59 11/26/17 20:50 Pantoprazole (Protonix) 40 mg EVERY 12 HOURS IVP 11/23/17 12:30 12/23/17 12:29 11/26/17 20:50 Piperacillin Sod/ Tazobactam Sod 3.375 gm/Sodium Chloride 110 ml @ 27.5 mls/hr Q12HR@0600,1800 IVPB 11/23/17 18:00 11/30/17 17:59 11/26/17 18:26 Sodium Chloride 1,000 ml @ 100 mls/hr Q10H IV 11/26/17 10:00 12/26/17 09:59 11/26/17 09:42 Allergies: Coded Allergies: No Known Allergies (Verified , 01/02/09) ROS Limited/Unobtainable: Yes Objective Last Vital Signs Date Time Temp Pulse Resp B/P (MAP) Pulse Ox O2 Delivery O2 Flow Rate FiO2 11/26/17 23:02 65 26 98 Facial 40 11/26/17 21:00 105/57 11/26/17 21:00 4.0 11/26/17 20:00 97.3 97.3 General Appearance: no apparent distress Neck: non-tender, supple Cardiovascular: normal rate, regular rhythm, systolic murmur Respiratory/Chest: rhonchi - bilaterally Abdomen: normal bowel sounds, non tender, soft, no organomegaly, no mass, other - PEG Genitourinary/Rectal: normal genital exam, other - elder Edema: trace edema Neurologic: other - hemiplegia Laboratory Tests Test 11/26/17 08:20 White Blood Count 11.0 K/UL (4.8-10.8) H Red Blood Count 3.36 M/UL (4.70-6.10) L Hemoglobin 8.7 G/DL (14.2-18.0) L Hematocrit 28.9 % (42.0-52.0) L Mean Corpuscular Volume 86 FL (80-99) Mean Corpuscular Hemoglobin 25.8 PG (27.0-31.0) L Mean Corpuscular Hemoglobin Concent 30.0 G/DL (32.0-36.0) L Red Cell Distribution Width 17.2 % (11.6-14.8) H Platelet Count 282 K/UL (150-450) Mean Platelet Volume 5.9 FL (6.5-10.1) L Neutrophils (%) (Auto) 54.2 % (45.0-75.0) Lymphocytes (%) (Auto) 30.5 % (20.0-45.0) Monocytes (%) (Auto) 6.7 % (1.0-10.0) Eosinophils (%) (Auto) 8.0 % (0.0-3.0) H Basophils (%) (Auto) 0.6 % (0.0-2.0) Sodium Level 151 MMOL/L (136-145) H Potassium Level 3.8 MMOL/L (3.5-5.1) Chloride Level 110 MMOL/L (98-107) H Carbon Dioxide Level 30 MMOL/L (21-32) Anion Gap 11 mmol/L (5-15) Blood Urea Nitrogen 103 mg/dL (7-18) H Creatinine 4.2 MG/DL (0.55-1.30) H Estimat Glomerular Filtration Rate mL/min (>60) Glucose Level 108 MG/DL (74-106) H Calcium Level 9.4 MG/DL (8.5-10.1) Microbiology Date/Time Source Procedure Growth Status 11/25/17 11:30 Sputum Gram Stain Pending Resulted 11/25/17 11:30 Sputum Culture - Preliminary Gram Negative Bacillus 1 Resulted Intake and Output 11/25/17 11/26/17 19:00 07:00 Intake Total 320 ml Output Total 300 ml 500 ml Balance -300 ml -180 ml Free Water 100 ml Tube Feeding 220 ml Output Urine Total 300 ml 500 ml Assessment/Plan Status: stable, progressing Assessment/Plan IMPRESSION: 1. SIRS. 2. Recurrent UTI. 3. Chronic hypercapnic and hypoxemic respiratory failure. 4. PAN on Chronic kidney disease, stage 3-4. likely ATN picture 5. Recent history of fungal cystitis. 6. Recent history of Dermabacter hominis bacteremia. 7. Recurrent pneumonia, aspiration pneumonitis. 8. History of GI bleed. 9. Anemia of chronic disease. 10. History of CVA with organic brain syndrome. 11. Chronic right-sided hemiplegia. 12. Dysphagia, status post gastrostomy tube placement. 13. Leukocytosis. 14. Bedbound. 15. Functional quadriplegia. PLAN: k replete as needed monitor cr on lasix BIPAP QHS & PRN IV antibiotic./ follow up cultures ID and renal f/u. Tube feeding once off BiPAP. Monitor volume and renal function. DVT and GI prophylaxis. Pulmonary nebulizer. The patient is DNR and DNI. Case discussed with manager system at length. over 35 min spent today time of this note may not be the actual encounter time with the patient. STACI CHACON Nov 26, 2017 23:58
[2017-11-27] VITALS: BP 123/71
[2017-11-27] MEDS: NovoLOG Insulin Flexpen SUBQ SCH ×4 (00:15→17:39)
[2017-11-27] MEDS: Albuterol/Ipratropium 3ml neb HHN SCH ×3 (01:37→19:00)
[2017-11-27 04:00] VITALS: BP 144/64
[2017-11-27] MEDS: Piperacillin/Tazobactam 3.375 GM in NS 110 ML IVPB SCH ×2 (05:46→17:45)
[2017-11-27 07:21] LABS: ANION GAP 8 mmol/L (5-15); BLOOD UREA NITROGEN 97 mg/dL (7-18); CALCIUM 9.5 MG/DL (8.5-10.1); CARBON DIOXIDE 34 MMOL/L (21-32); CHLORIDE 109 MMOL/L (98-107); CREATININE 4.1 MG/DL (0.55-1.30); POTASSIUM 3.7 MMOL/L (3.5-5.1); SODIUM 151 MMOL/L (136-145)
[2017-11-27 08:00] VITALS: BP 146/67
--- NOTE | 2017-11-27 08:24 | Nephrology Progress Note ---
Assessment/Plan Assessment/Plan 1. PAN on CKD 4- BL Cr 2.2 - BUN 97 and Cr 4.1 improved today - replaced elder - hold lasix and continue IVF's for one more day. 2. Hypokalemia- replace prn. Corrected 3. Resp Fl- stable. 4. HTN- stable 5. Hypernatremia- change IVF's to D5w Subjective Date patient seen: Nov 27, 2017 Time patient seen: 08:22 ROS Limited/Unobtainable: Yes Allergies: Coded Allergies: No Known Allergies (Verified , 01/02/09) Subjective Patient resting comfortably. In no overt distress Objective Last 24 Hour Vital Signs Date Time Temp Pulse Resp B/P (MAP) Pulse Ox O2 Delivery O2 Flow Rate FiO2 11/27/17 08:02 64 20 100 Nasal Cannula 3.0 11/27/17 07:52 Nasal Cannula 3.0 11/27/17 07:52 63 20 92 Nasal Cannula 3.0 11/27/17 07:51 92 Nasal Cannula 3.0 32 11/27/17 05:08 60 23 97 Facial 40 11/27/17 04:00 59 11/27/17 04:00 97.3 61 28 144/64 (90) 100 97.3 11/27/17 04:00 59 11/27/17 03:22 63 29 98 Facial 40 11/27/17 01:47 62 24 99 Bi-pap 40 11/27/17 01:37 61 25 98 Facial 40 11/27/17 01:37 61 25 98 Bi-pap 40 11/27/17 00:00 62 11/27/17 00:00 97.7 61 30 123/71 (88) 98 97.7 11/26/17 23:02 65 26 98 Facial 40 11/26/17 21:00 65 105/57 11/26/17 21:00 Nasal Cannula 4.0 11/26/17 20:17 68 20 99 Nasal Cannula 3.0 32 11/26/17 20:06 99 Nasal Cannula 3.0 32 11/26/17 20:06 76 20 99 Nasal Cannula 3.0 32 11/26/17 20:06 Nasal Cannula 3.0 32 11/26/17 20:00 97.3 68 30 128/69 (88) 99 97.3 11/26/17 20:00 63 11/26/17 16:00 63 11/26/17 15:57 96.3 65 26 141/72 (95) 100 96.3 11/26/17 13:46 98 Nasal Cannula 4.0 11/26/17 13:46 63 24 98 Nasal Cannula 4.0 36 11/26/17 13:32 61 20 99 Nasal Cannula 5.0 40 11/26/17 12:00 63 11/26/17 11:42 97.2 66 26 136/78 (97) 99 97.2 11/26/17 11:00 Nasal Cannula 5.0 11/26/17 10:13 Nasal Cannula 5.0 11/26/17 09:00 60 119/89 Intake and Output 11/26/17 11/27/17 19:00 07:00 Intake Total 900 ml 265 ml Output Total 1000 ml 700 ml Balance -100 ml -435 ml Free Water 100 ml IV Total 900 ml Tube Feeding 165 ml Output Urine Total 1000 ml 700 ml # Bowel Movements 1 Laboratory Tests 11/27/17 05:53: Sodium Level 151H, Potassium Level 3.7, Chloride Level 109H, Carbon Dioxide Level 34H, Anion Gap 8, Blood Urea Nitrogen 97H, Creatinine 4.1H, Estimat Glomerular Filtration Rate , Glucose Level 100, Calcium Level 9.5, C-Reactive Protein, Quantitative 19.4H Height (Feet): 6 Height (Inches): 0.00 Weight (Pounds): 189 General Appearance: no apparent distress EENT: normal ENT inspection Neck: non-tender, normal alignment, supple Cardiovascular: normal rate, regular rhythm Respiratory/Chest: rhonchi - bilaterally Abdomen: normal bowel sounds, non tender, soft Edema: no edema noted Arm (L), no edema noted Arm (R), no edema noted Leg (L), no edema noted Leg (R), no edema noted Pedal (L), no edema noted Pedal (R), no edema noted Generalized Tim Blake M.D. Nov 27, 2017 08:24
[2017-11-27] MEDS: Docusate 100mg/10ml Liq GT SCH ×3 (09:25→17:45)
[2017-11-27] MEDS: Aspirin EC 81mg tab ORAL SCH (09:25)
[2017-11-27] MEDS: Pantoprazole Inj IVP SCH ×2 (09:26→20:27)
[2017-11-27] MEDS: Carvedilol 6.25mg Tab ORAL SCH ×2 (09:26→20:28)
[2017-11-27] MEDS: Heparin 5000 units/ml inj SUBQ SCH ×2 (09:42→20:30)
[2017-11-27 12:00] VITALS: BP 118/66
[2017-11-27 16:00] VITALS: BP 125/71
[2017-11-27] MEDS ORDERED: Albuterol/Ipratropium 3ml neb HHN PRN (16:15)
--- NOTE | 2017-11-27 16:15 | Pulmonology Progress Note ---
Assessment/Plan Problems: (1) HCAP (healthcare-associated pneumonia) (2) Aspiration pneumonia (3) UTI (urinary tract infection) (4) Acute respiratory failure (5) ARF (acute renal failure) (6) recent L MCA ischemic stroke (7) Encephalopathy due to infection (8) G-tube site cellulitis (9) Bacterial infection due to Staphylococcus (10) Hydronephrosis of left kidney Assessment/Plan ASSESSMENT: The patient is an 87-year-old male with history of CVA, aphasia, dysphagia, status post G-tube, anemia, hypertension, urinary retention, multiple recent hospitalizations, and chronic hypercapnic and hypoxemic respiratory failure, admitted with worsening shortness of breath, noted to have a UTI plus or minus pneumonic infiltrate. PROBLEM LIST: 1. Systemic inflammatory response syndrome. 2. Recurrent UTI. 3. Chronic hypercapnic and hypoxemic respiratory failure. 4. Respiratory muscle weakness. 5. Recent pneumonia and prolonged intubation. 6. Recent Dermabacter hominis bacteremia. 7. Recent fungal cystitis. 8. CHF with diastolic dysfunction. 9. PAN on CKD. 10. Anemia. 11. History of GI bleed. 12. History of CVA with organic brain syndrome. 13. Dysphagia, status post G-tube. TREATMENT PLAN: 1. Optimize pulmonary hygiene/mobilize as tolerated. 2. BiPAP 17/5 p.r.n. and nightly. 3. Titrate down FiO2 to keep saturations greater than 90%. 4. [id number]-szmma and p.r.n. DuoNebs. 5. Suctioning as able. 6. Abx per ID. 7. Follow up cultures. 8. Monitor CXR 9. Tube feeds 10. Monitor volumes and renal function. F/U renal recs 11. DVT prophylaxis, heparin subcutaneous. 12. DNR/DNI. Subjective Allergies: Coded Allergies: No Known Allergies (Verified , 01/02/09) Subjective Breathing stable, BUN/Cr slightly improved AFVSS, off BiPAP - used in [place] Lasix held getting IVF No change in MS No cough, no SOB, no F/C Nubia TF's Objective Last 24 Hour Vital Signs Date Time Temp Pulse Resp B/P (MAP) Pulse Ox O2 Delivery O2 Flow Rate FiO2 11/27/17 12:00 64 11/27/17 12:00 97.3 58 20 118/66 (83) 100 97.3 11/27/17 10:01 62 20 Nasal Cannula 3.0 11/27/17 09:26 64 146/67 11/27/17 09:00 Nasal Cannula 4.0 11/27/17 08:02 64 20 100 Nasal Cannula 3.0 11/27/17 08:00 63 11/27/17 08:00 97.0 64 18 146/67 (93) 94 97.0 11/27/17 07:52 Nasal Cannula 3.0 11/27/17 07:52 63 20 92 Nasal Cannula 3.0 11/27/17 07:51 92 Nasal Cannula 3.0 32 11/27/17 05:08 60 23 97 Facial 40 11/27/17 04:00 59 11/27/17 04:00 97.3 61 28 144/64 (90) 100 97.3 11/27/17 04:00 59 11/27/17 03:22 63 29 98 Facial 40 11/27/17 01:47 62 24 99 Bi-pap 40 11/27/17 01:37 61 25 98 Facial 40 11/27/17 01:37 61 25 98 Bi-pap 40 11/27/17 00:00 62 11/27/17 00:00 97.7 61 30 123/71 (88) 98 97.7 11/26/17 23:02 65 26 98 Facial 40 11/26/17 21:00 65 105/57 11/26/17 21:00 Nasal Cannula 4.0 11/26/17 20:17 68 20 99 Nasal Cannula 3.0 32 11/26/17 20:06 99 Nasal Cannula 3.0 32 11/26/17 20:06 76 20 99 Nasal Cannula 3.0 32 11/26/17 20:06 Nasal Cannula 3.0 32 11/26/17 20:00 97.3 68 30 128/69 (88) 99 97.3 11/26/17 20:00 63 Intake and Output 11/26/17 11/27/17 19:00 07:00 Intake Total 900 ml 265 ml Output Total 1000 ml 700 ml Balance -100 ml -435 ml Free Water 100 ml IV Total 900 ml Tube Feeding 165 ml Output Urine Total 1000 ml 700 ml # Bowel Movements 1 General Appearance: cachetic HEENT: normocephalic, atraumatic, anicteric, mucous membranes moist Respiratory/Chest: chest wall non-tender, lungs clear, normal breath sounds, no respiratory distress Cardiovascular: normal peripheral pulses, normal rate, regular rhythm Abdomen: normal bowel sounds, soft, non tender, no organomegaly, non distended , other - GT Extremities: no cyanosis, no clubbing, no edema Microbiology Date/Time Source Procedure Growth Status 11/25/17 11:30 Sputum Gram Stain - Final Resulted 11/25/17 11:30 Sputum Culture - Preliminary A.baumanii Complx - Mdr Resulted Laboratory Tests 11/27/17 05:53: Sodium Level 151H, Potassium Level 3.7, Chloride Level 109H, Carbon Dioxide Level 34H, Anion Gap 8, Blood Urea Nitrogen 97H, Creatinine 4.1H, Estimat Glomerular Filtration Rate , Glucose Level 100, Calcium Level 9.5, C-Reactive Protein, Quantitative 19.4H Current Medications Medications (Trade) Dose Ordered Sig/Keira Route PRN Reason Start Time Stop Time Status Last Admin Dose Admin Acetaminophen (Tylenol) 650 mg Q4H PRN ORAL Mild Pain/Temp > 100.5 11/22/17 16:00 12/22/17 15:59 11/22/17 16:23 Aspirin (Ecotrin) 81 mg DAILY ORAL 11/22/17 09:00 12/22/17 08:59 11/27/17 09:25 Carvedilol (Coreg) 6.25 mg Q12HR ORAL 11/23/17 21:00 12/23/17 20:59 11/27/17 09:26 Clopidogrel Bisulfate (Plavix) 75 mg DAILY GT 11/22/17 09:00 12/22/17 08:59 11/27/17 09:26 Dextrose 1,000 ml @ 75 mls/hr [id number] IV 11/27/17 09:00 12/27/17 08:59 11/27/17 09:48 Dextrose (Dextrose 50%) 25 ml STAT PRN IV Hypoglycemia 11/24/17 11:15 12/24/17 11:14 Dextrose (Dextrose 50%) 50 ml STAT PRN IV Hypoglycemia 11/24/17 11:15 12/24/17 11:14 Docusate Sodium (Colace) 100 mg TID GT 11/23/17 13:00 12/23/17 12:59 11/27/17 13:39 Heparin Sodium (Porcine) (Heparin 5000 units/ml) 5,000 units EVERY 12 HOURS SUBQ 11/22/17 09:00 12/22/17 08:59 11/27/17 09:42 Hydralazine HCl (Apresoline) 10 mg Q4H PRN GT For High BP over 160 syst 11/23/17 12:30 12/22/17 08:44 Insulin Aspart (NovoLOG) Q6HR SUBQ 11/24/17 13:00 12/24/17 12:59 11/27/17 13:22 Linezolid (Zyvox) 600 mg EVERY 12 HOURS ORAL 11/25/17 21:00 11/30/17 20:59 11/27/17 09:25 Pantoprazole (Protonix) 40 mg EVERY 12 HOURS IVP 11/23/17 12:30 12/23/17 12:29 11/27/17 09:26 Piperacillin Sod/ Tazobactam Sod 3.375 gm/Sodium Chloride 110 ml @ 27.5 mls/hr Q12HR@0600,1800 IVPB 11/23/17 18:00 11/30/17 17:59 11/27/17 05:46 Sagar Melvin MD Nov 27, 2017 16:15
--- NOTE | 2017-11-27 16:36 | Infectious Diseases Prog Note ---
Assessment/Plan Assessment/Plan Assessment: Sepsis; resolving Acute on chronic respiratory failure, on Bipap, now on NC- probable PNA -CXR 11/26: CHF/interstitial edema slightly worse -CXR 11/24: Airspace disease in the right lung likely due to pneumonia. Small right pleural effusion -CXR 11/21: Elevated right hemidiaphragm. Large amount of gas in the bowel. Cardiomegaly. No definite infiltrate or pneumothorax -sp cx to MDR ABC (however improved with Zosyn) Leukocytosis/Low grade fever;fever resolved, leukocytosis improving -u/a wbc 10-15, nit neg, leuk +2; ucx neg -Bcx NTD PAN on CKD; worsening Sacral decubitus ulcer (Stage II)- no signs of infection -wound cx MDR ABC, GNR #2, #3 (colonizers) Recent Funguria and Dermabacter hominis bacteremia (at [facility]) Recent Severe Sepsis 2ry to UTI, pancreatitis (10/2017), s/p Rx -u/a wbc tnct, nit neg, leuk +3; ucx >100K K. pna (R cipro/levo,nitro, amp, bactrim, otherwise S) -lipase ~800> 400s -sp cx P. mirabilis I Cipro, otherwise S; PsA I CEftazidime; otherwise S ( likely colonizers, no PNA on CXR) Recent Septic shock 2ry to PNA, UTI 09/2017 -Bacteremia with Staph capitis/ contamination -Pneumonia with MDR Acinetobacter (S Tigecycicline, minocycline, Colistin/ polymixin B) & ESBL Proteus -UTI with ESBL Proteus CVA w/ R hemiplegia seizure disorder PUD Dementia renal insufficiency DM bed bound CAD s/p 3v CABG HTN GERD dysphagia s/p GT urinary retention multiple hospitalizations hx of Aspiration PNA NH resident DNR/DNI NKDA VRE colonized Plan: -Continue empiric Zosyn #/-10 (will continue for now as patient improved) and add INH colistin for MDR ABC -requested set up sensitivities for MDR ABC for Tigecycline/minocycline, colistin/polymixin B -Continue Linezolid abx d #09/20 for sepsis and probable pNA -11/25 SP IV Vancomycin #3 -11/21 SP Levaquin x1 -f/u cx -monitor CBC/CMP temperatures -aspiration precautions -PEG care -wound care/prevention per hospital protocol Thank you for this consultation. Will continue to follow along with you. Discussed with RN. Subjective Allergies: Coded Allergies: No Known Allergies (Verified , 01/02/09) Subjective afebrile in >48hrs no CBC today sp cx has not been collected Objective Vital Signs Last 24 Hour Vital Signs Date Time Temp Pulse Resp B/P (MAP) Pulse Ox O2 Delivery O2 Flow Rate FiO2 11/27/17 12:00 64 11/27/17 12:00 97.3 58 20 118/66 (83) 100 97.3 11/27/17 10:01 62 20 Nasal Cannula 3.0 11/27/17 09:26 64 146/67 11/27/17 09:00 Nasal Cannula 4.0 11/27/17 08:02 64 20 100 Nasal Cannula 3.0 11/27/17 08:00 63 11/27/17 08:00 97.0 64 18 146/67 (93) 94 97.0 11/27/17 07:52 Nasal Cannula 3.0 11/27/17 07:52 63 20 92 Nasal Cannula 3.0 11/27/17 07:51 92 Nasal Cannula 3.0 32 11/27/17 05:08 60 23 97 Facial 40 11/27/17 04:00 59 11/27/17 04:00 97.3 61 28 144/64 (90) 100 97.3 11/27/17 04:00 59 11/27/17 03:22 63 29 98 Facial 40 11/27/17 01:47 62 24 99 Bi-pap 40 11/27/17 01:37 61 25 98 Facial 40 11/27/17 01:37 61 25 98 Bi-pap 40 11/27/17 00:00 62 11/27/17 00:00 97.7 61 30 123/71 (88) 98 97.7 11/26/17 23:02 65 26 98 Facial 40 11/26/17 21:00 65 105/57 11/26/17 21:00 Nasal Cannula 4.0 11/26/17 20:17 68 20 99 Nasal Cannula 3.0 32 11/26/17 20:06 99 Nasal Cannula 3.0 32 11/26/17 20:06 76 20 99 Nasal Cannula 3.0 32 11/26/17 20:06 Nasal Cannula 3.0 32 11/26/17 20:00 97.3 68 30 128/69 (88) 99 97.3 11/26/17 20:00 63 Height (Feet): 6 Height (Inches): 0.00 Weight (Pounds): 189 Objective GENERAL: He is an elderly nonverbal male. HEENT: Normocephalic and atraumatic. Oropharynx is clear. NECK: Supple without lymphadenopathy. CHEST: Scattered, coarse. HEART: Regular. ABDOMEN: Benign. G-tube clean, dry, and intact. EXTREMITIES: No cyanosis, clubbing, or edema. Microbiology Date/Time Source Procedure Growth Status 11/25/17 11:30 Sputum Gram Stain - Final Resulted 11/25/17 11:30 Sputum Culture - Preliminary A.baumanii Complx - Mdr Resulted Laboratory Tests Test 11/27/17 05:53 Sodium Level 151 MMOL/L (136-145) H Potassium Level 3.7 MMOL/L (3.5-5.1) Chloride Level 109 MMOL/L (98-107) H Carbon Dioxide Level 34 MMOL/L (21-32) H Anion Gap 8 mmol/L (5-15) Blood Urea Nitrogen 97 mg/dL (7-18) H Creatinine 4.1 MG/DL (0.55-1.30) H Estimat Glomerular Filtration Rate mL/min (>60) Glucose Level 100 MG/DL (74-106) Calcium Level 9.5 MG/DL (8.5-10.1) C-Reactive Protein, Quantitative 19.4 mg/dL (0.00-0.90) H Current Medications Medications (Trade) Dose Ordered Sig/Keira Route PRN Reason Start Time Stop Time Status Last Admin Dose Admin Acetaminophen (Tylenol) 650 mg Q4H PRN ORAL Mild Pain/Temp > 100.5 11/22/17 16:00 12/22/17 15:59 11/22/17 16:23 Albuterol/ Ipratropium (Albuterol/ Ipratropium) 3 ml Q4H PRN HHN Shortness of Breath 11/27/17 16:15 12/02/17 16:14 UNV Albuterol/ Ipratropium (Albuterol/ Ipratropium) 3 ml Q6HRT HHN 11/27/17 19:00 7/17/18 18:59 UNV Aspirin (Ecotrin) 81 mg DAILY ORAL 11/22/17 09:00 12/22/17 08:59 11/27/17 09:25 Carvedilol (Coreg) 6.25 mg Q12HR ORAL 11/23/17 21:00 12/23/17 20:59 11/27/17 09:26 Clopidogrel Bisulfate (Plavix) 75 mg DAILY GT 11/22/17 09:00 12/22/17 08:59 11/27/17 09:26 Dextrose 1,000 ml @ 75 mls/hr [id number] IV 11/27/17 09:00 12/27/17 08:59 11/27/17 09:48 Dextrose (Dextrose 50%) 25 ml STAT PRN IV Hypoglycemia 11/24/17 11:15 12/24/17 11:14 Dextrose (Dextrose 50%) 50 ml STAT PRN IV Hypoglycemia 11/24/17 11:15 12/24/17 11:14 Docusate Sodium (Colace) 100 mg TID GT 11/23/17 13:00 12/23/17 12:59 11/27/17 13:39 Heparin Sodium (Porcine) (Heparin 5000 units/ml) 5,000 units EVERY 12 HOURS SUBQ 11/22/17 09:00 12/22/17 08:59 11/27/17 09:42 Hydralazine HCl (Apresoline) 10 mg Q4H PRN GT For High BP over 160 syst 11/23/17 12:30 12/22/17 08:44 Insulin Aspart (NovoLOG) Q6HR SUBQ 11/24/17 13:00 12/24/17 12:59 11/27/17 13:22 Linezolid (Zyvox) 600 mg EVERY 12 HOURS ORAL 11/25/17 21:00 11/30/17 20:59 11/27/17 09:25 Pantoprazole (Protonix) 40 mg EVERY 12 HOURS IVP 11/23/17 12:30 12/23/17 12:29 11/27/17 09:26 Piperacillin Sod/ Tazobactam Sod 3.375 gm/Sodium Chloride 110 ml @ 27.5 mls/hr Q12HR@0600,1800 IVPB 11/23/17 18:00 11/30/17 17:59 11/27/17 05:46 Skyla Cullen M.D. Nov 27, 2017 16:36
[2017-11-27 20:00] VITALS: BP 144/85
[2017-11-27] MEDS: Colistin for inhalation INH SCH (22:00)
[2017-11-28] VITALS: BP 125/74
[2017-11-28] MEDS: Albuterol/Ipratropium 3ml neb HHN SCH ×4 (02:22→19:08)
[2017-11-28 04:00] VITALS: BP 143/71
[2017-11-28] MEDS: Piperacillin/Tazobactam 3.375 GM in NS 110 ML IVPB SCH (06:22)
[2017-11-28] MEDS: NovoLOG Insulin Flexpen SUBQ SCH ×4 (06:24→17:51)
[2017-11-28 08:00] VITALS: BP 136/77
[2017-11-28 09:53] LABS: ANION GAP 10 mmol/L (5-15); BLOOD UREA NITROGEN 100 mg/dL (7-18); CARBON DIOXIDE 31 MMOL/L (21-32); CHLORIDE 109 MMOL/L (98-107); CREATININE 3.7 MG/DL (0.55-1.30); POTASSIUM 3.4 MMOL/L (3.5-5.1); SODIUM 150 MMOL/L (136-145)
[2017-11-28] MEDS: Pantoprazole Inj IVP SCH ×2 (09:58→22:01)
[2017-11-28] MEDS: Aspirin EC 81mg tab ORAL SCH (09:59)
[2017-11-28] MEDS: Docusate 100mg/10ml Liq GT SCH ×3 (09:59→18:00)
[2017-11-28] MEDS: Colistin for inhalation INH SCH ×2 (10:00→22:46)
[2017-11-28] MEDS: Carvedilol 6.25mg Tab ORAL SCH ×2 (10:00→22:00)
[2017-11-28] MEDS: Heparin 5000 units/ml inj SUBQ SCH ×2 (10:03→22:08)
--- NOTE | 2017-11-28 10:29 | Nephrology Progress Note ---
Assessment/Plan Assessment/Plan 1. PAN on CKD 4- BL Cr 2.2 - Cr down to 3.7 - continue free water, decrease rate 2. Hypokalemia- replace prn. 3. Resp Fl- stable. 4. HTN- stable 5. Hypernatremia- Na down to 150. Continue free water Subjective Date patient seen: Nov 28, 2017 Time patient seen: 10:25 ROS Limited/Unobtainable: Yes Allergies: Coded Allergies: No Known Allergies (Verified , 01/02/09) Subjective Patient with BiPAP Objective Last 24 Hour Vital Signs Date Time Temp Pulse Resp B/P (MAP) Pulse Ox O2 Delivery O2 Flow Rate FiO2 11/28/17 10:00 63 136/77 11/28/17 09:50 94 32 99 Bi-pap 40 11/28/17 09:44 40 11/28/17 09:44 91 22 99 Bi-pap 40 11/28/17 09:44 Bi-pap 40 11/28/17 05:24 64 14 97 Facial 40 11/28/17 04:00 98.2 60 28 143/71 (95) 100 98.2 11/28/17 04:00 40 11/28/17 03:49 61 11/28/17 03:33 68 34 99 Facial 40 11/28/17 02:23 92 36 99 Bi-pap 40 11/28/17 02:15 89 20 98 Bi-pap 40 11/28/17 02:15 40 11/28/17 01:20 61 36 98 Facial 40 11/28/17 00:00 40 11/28/17 00:00 97.9 67 28 125/74 (91) 100 97.9 11/28/17 00:00 66 11/27/17 23:19 63 38 99 Facial 40 11/27/17 21:36 65 25 98 Facial 40 11/27/17 21:00 Nasal Cannula 4.0 11/27/17 20:28 67 144/85 11/27/17 20:17 Nasal Cannula 3.0 32 11/27/17 20:00 97.7 67 20 144/85 (104) 98 97.7 11/27/17 19:56 65 11/27/17 16:00 97.2 63 18 125/71 (89) 99 97.2 11/27/17 16:00 65 11/27/17 12:00 64 11/27/17 12:00 97.3 58 20 118/66 (83) 100 97.3 Intake and Output 11/27/17 11/28/17 19:00 07:00 Intake Total 1675 ml Output Total 1000 ml 400 ml Balance -1000 ml 1275 ml Free Water 55 ml IV Total 900 ml Tube Feeding 660 ml Other 60 ml Output Urine Total 1000 ml 400 ml Laboratory Tests 11/28/17 07:30: Sodium Level 150H, Potassium Level 3.4L, Chloride Level 109H, Carbon Dioxide Level 31, Anion Gap 10, Blood Urea Nitrogen 100H, Creatinine 3.7H, Estimat Glomerular Filtration Rate , Glucose Level 138H, Calcium Level 9.0 Height (Feet): 6 Height (Inches): 0.00 Weight (Pounds): 189 General Appearance: no apparent distress, alert EENT: normal ENT inspection Neck: normal alignment, supple Cardiovascular: normal rate, regular rhythm Respiratory/Chest: rhonchi - bilaterally Edema: no edema noted Arm (L), no edema noted Arm (R), no edema noted Leg (L), no edema noted Leg (R), no edema noted Pedal (L), no edema noted Pedal (R), no edema noted Generalized Tim Blake M.D. Nov 28, 2017 10:29
[2017-11-28 12:00] VITALS: BP 134/76
[2017-11-28] MEDS ORDERED: 1/2 NS 1000ml IV ONE (14:49)
[2017-11-28 16:00] VITALS: BP 150/51
--- NOTE | 2017-11-28 17:03 | General Progress Note ---
Subjective Date patient seen: Nov 28, 2017 Allergies: Coded Allergies: No Known Allergies (Verified , 01/02/09) Subjective Per Dr Murray, Dr Brewster ask him today to follow the patient as ID consult. Will sign off now. Please call back if needed. Objective Last 24 Hour Vital Signs Date Time Temp Pulse Resp B/P (MAP) Pulse Ox O2 Delivery O2 Flow Rate FiO2 11/28/17 16:00 40 11/28/17 16:00 97.7 60 24 150/51 (84) 97 97.7 11/28/17 13:52 92 22 99 Bi-pap 40 11/28/17 13:43 94 19 99 Bi-pap 40 11/28/17 13:43 40 11/28/17 12:00 60 11/28/17 12:00 40 11/28/17 12:00 97.2 60 23 134/76 (95) 100 97.2 11/28/17 10:05 84 22 98 Bi-pap 40 11/28/17 10:00 89 22 98 Bi-pap 40 11/28/17 10:00 63 136/77 11/28/17 09:50 94 32 99 Bi-pap 40 11/28/17 09:44 40 11/28/17 09:44 91 22 99 Bi-pap 40 11/28/17 09:44 Bi-pap 40 11/28/17 09:00 Nasal Cannula 4.0 11/28/17 08:00 63 11/28/17 08:00 40 11/28/17 08:00 98.0 63 30 136/77 (96) 100 98.0 11/28/17 05:24 64 14 97 Facial 40 11/28/17 04:00 98.2 60 28 143/71 (95) 100 98.2 11/28/17 04:00 40 11/28/17 03:49 61 11/28/17 03:33 68 34 99 Facial 40 11/28/17 02:23 92 36 99 Bi-pap 40 11/28/17 02:15 89 20 98 Bi-pap 40 11/28/17 02:15 40 11/28/17 01:20 61 36 98 Facial 40 11/28/17 00:00 40 11/28/17 00:00 97.9 67 28 125/74 (91) 100 97.9 11/28/17 00:00 66 11/27/17 23:19 63 38 99 Facial 40 11/27/17 21:36 65 25 98 Facial 40 11/27/17 21:00 Nasal Cannula 4.0 11/27/17 20:28 67 144/85 11/27/17 20:17 Nasal Cannula 3.0 32 11/27/17 20:00 97.7 67 20 144/85 (104) 98 97.7 11/27/17 19:56 65 Intake and Output 11/27/17 11/28/17 19:00 07:00 Intake Total 1675 ml Output Total 1000 ml 400 ml Balance -1000 ml 1275 ml Free Water 55 ml IV Total 900 ml Tube Feeding 660 ml Other 60 ml Output Urine Total 1000 ml 400 ml Laboratory Tests 11/28/17 07:30: Sodium Level 150H, Potassium Level 3.4L, Chloride Level 109H, Carbon Dioxide Level 31, Anion Gap 10, Blood Urea Nitrogen 100H, Creatinine 3.7H, Estimat Glomerular Filtration Rate , Glucose Level 138H, Calcium Level 9.0 Height (Feet): 6 Height (Inches): 0.00 Weight (Pounds): 189 Skyla Cullen M.D. Nov 28, 2017 17:02
--- NOTE | 2017-11-28 17:23 | Infectious Diseases Prog Note ---
Assessment/Plan Assessment/Plan A 1. pneumonia 2. leucocytosis improving 3. renal failure 4. diabetes mellitus 5. hypertension P 1. continue inhaled colistin 2, add Minocycline 3. d/c Zosyn Subjective ROS Limited/Unobtainable: Yes Allergies: Coded Allergies: No Known Allergies (Verified , 01/02/09) Objective Vital Signs Last 24 Hour Vital Signs Date Time Temp Pulse Resp B/P (MAP) Pulse Ox O2 Delivery O2 Flow Rate FiO2 11/28/17 16:00 65 11/28/17 16:00 40 11/28/17 16:00 97.7 60 24 150/51 (84) 97 97.7 11/28/17 13:52 92 22 99 Bi-pap 40 11/28/17 13:43 94 19 99 Bi-pap 40 11/28/17 13:43 40 11/28/17 12:00 60 11/28/17 12:00 40 11/28/17 12:00 97.2 60 23 134/76 (95) 100 97.2 11/28/17 10:05 84 22 98 Bi-pap 40 11/28/17 10:00 89 22 98 Bi-pap 40 11/28/17 10:00 63 136/77 11/28/17 09:50 94 32 99 Bi-pap 40 11/28/17 09:44 40 11/28/17 09:44 91 22 99 Bi-pap 40 11/28/17 09:44 Bi-pap 40 11/28/17 09:00 Nasal Cannula 4.0 11/28/17 08:00 63 11/28/17 08:00 40 11/28/17 08:00 98.0 63 30 136/77 (96) 100 98.0 11/28/17 05:24 64 14 97 Facial 40 11/28/17 04:00 98.2 60 28 143/71 (95) 100 98.2 11/28/17 04:00 40 11/28/17 03:49 61 11/28/17 03:33 68 34 99 Facial 40 11/28/17 02:23 92 36 99 Bi-pap 40 11/28/17 02:15 89 20 98 Bi-pap 40 11/28/17 02:15 40 11/28/17 01:20 61 36 98 Facial 40 11/28/17 00:00 40 11/28/17 00:00 97.9 67 28 125/74 (91) 100 97.9 11/28/17 00:00 66 11/27/17 23:19 63 38 99 Facial 40 11/27/17 21:36 65 25 98 Facial 40 11/27/17 21:00 Nasal Cannula 4.0 11/27/17 20:28 67 144/85 11/27/17 20:17 Nasal Cannula 3.0 32 11/27/17 20:00 97.7 67 20 144/85 (104) 98 97.7 11/27/17 19:56 65 Height (Feet): 6 Height (Inches): 0.00 Weight (Pounds): 189 General Appearance: no acute distress HEENT: mucous membranes moist Respiratory/Chest: other - coarse sounds, oxygen by cannula Cardiovascular: normal rate Abdomen: soft, non tender, other - GT feeding Extremities: other - Pedal edema Neurologic/Psychiatric: aphasia Laboratory Tests Test 11/28/17 07:30 Sodium Level 150 MMOL/L (136-145) H Potassium Level 3.4 MMOL/L (3.5-5.1) L Chloride Level 109 MMOL/L (98-107) H Carbon Dioxide Level 31 MMOL/L (21-32) Anion Gap 10 mmol/L (5-15) Blood Urea Nitrogen 100 mg/dL (7-18) H Creatinine 3.7 MG/DL (0.55-1.30) H Estimat Glomerular Filtration Rate mL/min (>60) Glucose Level 138 MG/DL (74-106) H Calcium Level 9.0 MG/DL (8.5-10.1) Current Medications Medications (Trade) Dose Ordered Sig/Keira Route PRN Reason Start Time Stop Time Status Last Admin Dose Admin Acetaminophen (Tylenol) 650 mg Q4H PRN ORAL Mild Pain/Temp > 100.5 11/22/17 16:00 12/22/17 15:59 11/22/17 16:23 Albuterol/ Ipratropium (Albuterol/ Ipratropium) 3 ml Q4H PRN HHN Shortness of Breath 11/27/17 16:15 12/02/17 16:14 Albuterol/ Ipratropium (Albuterol/ Ipratropium) 3 ml Q6HRT HHN 11/27/17 19:00 7/17/18 18:59 11/28/17 13:40 Aspirin (Ecotrin) 81 mg DAILY ORAL 11/22/17 09:00 12/22/17 08:59 11/28/17 09:59 Carvedilol (Coreg) 6.25 mg Q12HR ORAL 11/23/17 21:00 12/23/17 20:59 11/28/17 10:00 Clopidogrel Bisulfate (Plavix) 75 mg DAILY GT 11/22/17 09:00 12/22/17 08:59 11/28/17 09:59 Colistimethate Sodium (Colistin *inhalation use only*) 150 mg Q12HR@10,22 INH 11/27/17 22:00 12/04/17 21:59 11/28/17 10:00 Dextrose 1,000 ml @ 50 mls/hr Q20H IV 11/28/17 10:44 12/28/17 10:43 11/28/17 13:45 Dextrose (Dextrose 50%) 25 ml STAT PRN IV Hypoglycemia 11/24/17 11:15 12/24/17 11:14 Dextrose (Dextrose 50%) 50 ml STAT PRN IV Hypoglycemia 11/24/17 11:15 12/24/17 11:14 Docusate Sodium (Colace) 100 mg TID GT 11/23/17 13:00 12/23/17 12:59 11/28/17 13:48 Heparin Sodium (Porcine) (Heparin 5000 units/ml) 5,000 units EVERY 12 HOURS SUBQ 11/22/17 09:00 12/22/17 08:59 11/28/17 10:03 Hydralazine HCl (Apresoline) 10 mg Q4H PRN GT For High BP over 160 syst 11/23/17 12:30 12/22/17 08:44 Insulin Aspart (NovoLOG) Q6HR SUBQ 11/24/17 13:00 12/24/17 12:59 11/28/17 06:24 Linezolid (Zyvox) 600 mg EVERY 12 HOURS ORAL 11/25/17 21:00 11/30/17 20:59 11/28/17 09:59 Pantoprazole (Protonix) 40 mg EVERY 12 HOURS IVP 11/23/17 12:30 12/23/17 12:29 11/28/17 09:58 Piperacillin Sod/ Tazobactam Sod 3.375 gm/Sodium Chloride 110 ml @ 27.5 mls/hr Q12HR@0600,1800 IVPB 11/23/17 18:00 11/30/17 17:59 11/28/17 06:22 Donnell Murray MD Nov 28, 2017 17:23
--- NOTE | 2017-11-28 17:40 | Pulmonology Progress Note ---
Assessment/Plan Problems: (1) HCAP (healthcare-associated pneumonia) (2) Aspiration pneumonia (3) UTI (urinary tract infection) (4) Acute respiratory failure (5) ARF (acute renal failure) (6) recent L MCA ischemic stroke (7) Encephalopathy due to infection (8) G-tube site cellulitis (9) Bacterial infection due to Staphylococcus (10) Hydronephrosis of left kidney Assessment/Plan ASSESSMENT: The patient is an 87-year-old male with history of CVA, aphasia, dysphagia, status post G-tube, anemia, hypertension, urinary retention, multiple recent hospitalizations, and chronic hypercapnic and hypoxemic respiratory failure, admitted with worsening shortness of breath, noted to have a UTI plus or minus pneumonic infiltrate. PROBLEM LIST: 1. Systemic inflammatory response syndrome. 2. Recurrent UTI. 3. Chronic hypercapnic and hypoxemic respiratory failure. 4. Respiratory muscle weakness. 5. Recent pneumonia and prolonged intubation. 6. Recent Dermabacter hominis bacteremia. 7. Recent fungal cystitis. 8. CHF with diastolic dysfunction. 9. PAN on CKD. 10. Anemia. 11. History of GI bleed. 12. History of CVA with organic brain syndrome. 13. Dysphagia, status post G-tube. TREATMENT PLAN: 1. Optimize pulmonary hygiene/mobilize as tolerated. 2. BiPAP 17/5 p.r.n. and nightly. 3. Titrate down FiO2 to keep saturations greater than 90%. 4. Lfpry-ejj-yejtw and p.r.n. DuoNebs. 5. Suctioning as able. 6. Abx per ID. 7. Follow up cultures. 8. Monitor CXR 9. Tube feeds 10. Monitor volumes and renal function. F/U renal recs 11. DVT prophylaxis, heparin subcutaneous. 12. DNR/DNI. Subjective Allergies: Coded Allergies: No Known Allergies (Verified , 01/02/09) Subjective Breathing stable, BUN/Cr 100/3.7, Na 150 AFVSS, off BiPAP - used in [place] Lasix held getting IVF No change in MS No cough, no SOB, no F/C Nubia TF's Objective Last 24 Hour Vital Signs Date Time Temp Pulse Resp B/P (MAP) Pulse Ox O2 Delivery O2 Flow Rate FiO2 11/28/17 16:00 65 11/28/17 16:00 40 11/28/17 16:00 97.7 60 24 150/51 (84) 97 97.7 11/28/17 13:52 92 22 99 Bi-pap 40 11/28/17 13:43 94 19 99 Bi-pap 40 11/28/17 13:43 40 11/28/17 12:00 60 11/28/17 12:00 40 11/28/17 12:00 97.2 60 23 134/76 (95) 100 97.2 11/28/17 10:05 84 22 98 Bi-pap 40 11/28/17 10:00 89 22 98 Bi-pap 40 11/28/17 10:00 63 136/77 11/28/17 09:50 94 32 99 Bi-pap 40 11/28/17 09:44 40 11/28/17 09:44 91 22 99 Bi-pap 40 11/28/17 09:44 Bi-pap 40 11/28/17 09:00 Nasal Cannula 4.0 11/28/17 08:00 63 11/28/17 08:00 40 11/28/17 08:00 98.0 63 30 136/77 (96) 100 98.0 11/28/17 05:24 64 14 97 Facial 40 11/28/17 04:00 98.2 60 28 143/71 (95) 100 98.2 11/28/17 04:00 40 11/28/17 03:49 61 11/28/17 03:33 68 34 99 Facial 40 11/28/17 02:23 92 36 99 Bi-pap 40 11/28/17 02:15 89 20 98 Bi-pap 40 11/28/17 02:15 40 11/28/17 01:20 61 36 98 Facial 40 11/28/17 00:00 40 11/28/17 00:00 97.9 67 28 125/74 (91) 100 97.9 11/28/17 00:00 66 11/27/17 23:19 63 38 99 Facial 40 11/27/17 21:36 65 25 98 Facial 40 11/27/17 21:00 Nasal Cannula 4.0 11/27/17 20:28 67 144/85 11/27/17 20:17 Nasal Cannula 3.0 32 11/27/17 20:00 97.7 67 20 144/85 (104) 98 97.7 11/27/17 19:56 65 Intake and Output 11/27/17 11/28/17 19:00 07:00 Intake Total 1675 ml Output Total 1000 ml 400 ml Balance -1000 ml 1275 ml Free Water 55 ml IV Total 900 ml Tube Feeding 660 ml Other 60 ml Output Urine Total 1000 ml 400 ml General Appearance: cachetic HEENT: normocephalic, atraumatic, anicteric, mucous membranes moist Respiratory/Chest: chest wall non-tender, rhonchi Cardiovascular: normal peripheral pulses, normal rate, regular rhythm Abdomen: normal bowel sounds, soft, non tender, no organomegaly, non distended , other - GT Extremities: no cyanosis, no clubbing, no edema, other - contracted Laboratory Tests 11/28/17 07:30: Sodium Level 150H, Potassium Level 3.4L, Chloride Level 109H, Carbon Dioxide Level 31, Anion Gap 10, Blood Urea Nitrogen 100H, Creatinine 3.7H, Estimat Glomerular Filtration Rate , Glucose Level 138H, Calcium Level 9.0 Current Medications Medications (Trade) Dose Ordered Sig/Keira Route PRN Reason Start Time Stop Time Status Last Admin Dose Admin Acetaminophen (Tylenol) 650 mg Q4H PRN ORAL Mild Pain/Temp > 100.5 11/22/17 16:00 12/22/17 15:59 11/22/17 16:23 Albuterol/ Ipratropium (Albuterol/ Ipratropium) 3 ml Q4H PRN HHN Shortness of Breath 11/27/17 16:15 12/02/17 16:14 Albuterol/ Ipratropium (Albuterol/ Ipratropium) 3 ml Q6HRT HHN 11/27/17 19:00 12/02/17 18:59 11/28/17 13:40 Aspirin (Ecotrin) 81 mg DAILY ORAL 11/22/17 09:00 12/22/17 08:59 11/28/17 09:59 Carvedilol (Coreg) 6.25 mg Q12HR ORAL 11/23/17 21:00 12/23/17 20:59 11/28/17 10:00 Clopidogrel Bisulfate (Plavix) 75 mg DAILY GT 11/22/17 09:00 12/22/17 08:59 11/28/17 09:59 Colistimethate Sodium (Colistin *inhalation use only*) 150 mg Q12HR@10,22 INH 11/27/17 22:00 12/04/17 21:59 11/28/17 10:00 Dextrose 1,000 ml @ 50 mls/hr Q20H IV 11/28/17 10:44 12/28/17 10:43 11/28/17 13:45 Dextrose (Dextrose 50%) 25 ml STAT PRN IV Hypoglycemia 11/24/17 11:15 12/24/17 11:14 Dextrose (Dextrose 50%) 50 ml STAT PRN IV Hypoglycemia 11/24/17 11:15 12/24/17 11:14 Docusate Sodium (Colace) 100 mg TID GT 11/23/17 13:00 12/23/17 12:59 11/28/17 13:48 Heparin Sodium (Porcine) (Heparin 5000 units/ml) 5,000 units EVERY 12 HOURS SUBQ 11/22/17 09:00 12/22/17 08:59 11/28/17 10:03 Hydralazine HCl (Apresoline) 10 mg Q4H PRN GT For High BP over 160 syst 11/23/17 12:30 12/22/17 08:44 Insulin Aspart (NovoLOG) Q6HR SUBQ 11/24/17 13:00 12/24/17 12:59 11/28/17 06:24 Minocycline HCl (Minocin) 100 mg Q12HR ORAL 11/28/17 21:00 12/05/17 20:59 UNV Pantoprazole (Protonix) 40 mg EVERY 12 HOURS IVP 11/23/17 12:30 12/23/17 12:29 11/28/17 09:58 Sagar Melvin MD Nov 28, 2017 17:40
[2017-11-28 20:00] VITALS: BP 147/86
[2017-11-28] MEDS: Minocycline HCl 50mg cap ORAL SCH (22:01)
[2017-11-29] VITALS: BP 159/95
--- NOTE | 2017-11-29 00:09 | Consultation ---
History of Present Illness General Date patient seen: Nov 28, 2017 Chief Complaint: Dyspnea/Respdistress Present Illness HPI 87-year-old gentleman with history of CVA, hemiparesis, aphasia, dysphagia, status post gastrostomy tube placement, anemia of chronic disease, hypertension, urinary retention with chronic Matson catheter. the pt is confused and nonverbal the pt was agitated Allergies: Coded Allergies: No Known Allergies (Verified , 01/02/09) Medication History Scheduled Acetaminophen (Acetaminophen), 650 MG GT EVERY 4 HOURS, (Reported) Amino Acids/Protein Hydrolys (Pro-Stat Liquid), 30 ML GT DAILY, (Reported) Amlodipine Besylate (Norvasc), 5 MG ORAL BID, (Reported) Amlodipine Besylate* (Amlodipine Besylate*), 10 MG GT DAILY, (Reported) Arginine/Ascorbate Sod/Romina AC (Arginaid Powder), 1 EACH PO BID, (Reported) Ascorbic Acid* (Vitamin C*), 500 MG GT DAILY, (Reported) Ascorbic Acid* (Vitamin C*), 500 MG GT DAILY, (Reported) Aspirin* (Aspirin*), 81 MG GT DAILY, (Reported) Atorvastatin Calcium* (Atorvastatin Calcium*), 80 MG GT BEDTIME, (Reported) Bacitracin Zinc (Bacitracin Zinc), 1 APPLIC TP THREE TIMES A DAY, (Reported) Carvedilol (Coreg), 25 MG GT EVERY 12 HOURS, (Reported) Ceftriaxone Sodium (Ceftriaxone), 1 GM IJ DAILY Chlorhexidine Gluconate (Chlorhexidine Gluconate), 2,000 ML MC DAILY, (Reported) Clonidine Hcl* (Catapres*), 0.1 MG GT DAILY, (Reported) Clopidogrel Bisulfate* (Plavix*), 75 MG GT DAILY, (Reported) Docusate Sodium* (Colace*), 100 MG GT DAILY, (Reported) Enoxaparin* (Lovenox*), 40 MG SUBQ DAILY, (Reported) Epoetin Sathish (Epogen), 7,000 UNIT SUBQ 3XW, (Reported) Famotidine (Famotidine), 20 MG ORAL TWICE A DAY, (Reported) Finasteride* (Proscar*), 5 MG GT DAILY, (Reported) Furosemide* (Lasix*), 40 MG GT DAILY, (Reported) Gel Base No.41 (Hydrogel), 1 APPLIC TOPIC DAILY, (Reported) Heparin Sod (Porcine) (Heparin Sodium*), 5,000 UNITS SUBQ EVERY 12 HOURS, ( Reported) Hydralazine HCl (Hydralazine HCl), 25 MG GT Q8HR, (Reported) Hydralazine Hcl (Hydralazine Hcl), 20 MG GT Q6HR, (Reported) Hydralazine Hcl* (Hydralazine Hcl*), 50 MG GT Q8HR Insulin Aspart* (Novolog*), 0 SUBQ Q6HR, (Reported) Lisinopril* (Lisinopril*), 40 MG GT DAILY, (Reported) Lorazepam (Lorazepam), 1 MG IV Q4H, (Reported) Metoprolol Tartrate (Metoprolol Tartrate), 12.5 MG GT Q12HR Metoprolol Tartrate* (Metoprolol Tartrate*), 25 MG GT EVERY 12 HOURS, (Reported) Multivitamin With Minerals (Multivitamins With Minerals*), 1 TAB GT DAILY, ( Reported) Nut.tx.impaired Renal Fxn,Soy (Nepro Carb Steady), 237 ML PO DAILY, (Reported) Pantoprazole* (Protonix*), 40 MG IVP EVERY 12 HOURS, (Reported) Polyethylene Glycol 3350* (Miralax*), 17 GM ORAL DAILY, (Reported) Quetiapine Fumarate* (Seroquel*), 12.5 MG ORAL DAILY, (Reported) Ranitidine Hcl* (Zantac*), 150 MG ORAL TWICE A DAY, (Reported) Tamsulosin HCl (Flomax), 0.8 MG GT DAILY, (Reported) Vitamin A & D (Vitamin A & D Ointment), 1 APPLIC TOPIC DAILY, (Reported) Zinc Sulfate (Zinc Sulfate*), 220 MG GT DAILY, (Reported) Scheduled PRN Bisacodyl* (Dulcolax*), 10 MG RECTAL ONCE PRN for Constipation, (Reported) Diphenhydramine Hcl* (Benadryl*), 25 MG ORAL Q8HR PRN for Itching, (Reported) Ipratropium [place] 0.5MG/2.5ML (Ipratropium [place] 0.5MG/2.5ML), 0.5 MG HHN Q4HR PRN for Shortness of Breath, (Reported) Ipratropium/Albuterol Sulfate (DuoNeb 0.5-3(2.5)mg/3ml), 3 ML HHN EVERY 4 HOURS PRN for Shortness of Breath, (Reported) Ondansetron* (Zofran*), 4 MG IV Q6H PRN for Nausea & Vomiting, (Reported) Ondansetron* (Zofran*), 4 MG GT Q6H PRN for Nausea & Vomiting, (Reported) Polyethylene Glycol 3350* (Miralax*), 17 GM ORAL DAILY PRN for Constipation, ( Reported) Potassium Chloride (Potassium Chloride), 20 MEQ ORAL DAILY PRN for Abdominal cramps, (Reported) Tramadol Hcl* (Ultram*), 50 MG GT Q6H PRN for For Pain, (Reported) Miscellaneous Medications Loperamide Hcl (Imodium A-D), 2 MG PO, (Reported) [d5w 50c 3d] Patient History Healthcare decision maker Resuscitation status Do Not Resuscitate Advanced Directive on File Review of Systems Psychiatric: Reports: prior hx, anxiety, emotional problems Physical Exam General Appearance: no apparent distress, alert, confused, agitated Last 24 Hour Vital Signs Date Time Temp Pulse Resp B/P (MAP) Pulse Ox O2 Delivery O2 Flow Rate FiO2 11/28/17 22:29 71 20 98 Bi-pap 40 11/28/17 22:20 65 18 99 Bi-pap 40 11/28/17 22:08 65 18 99 Facial 40 11/28/17 22:00 66 147/87 11/28/17 20:00 4.0 11/28/17 20:00 97.1 66 18 147/86 (106) 96 97.1 11/28/17 19:10 88 20 97 Nasal Cannula 4.0 36 11/28/17 19:03 Nasal Cannula 4.0 36 11/28/17 19:01 36 11/28/17 19:01 87 18 88 Room Air 21 11/28/17 16:00 65 11/28/17 16:00 40 11/28/17 16:00 97.7 60 24 150/51 (84) 97 97.7 11/28/17 13:52 92 22 99 Bi-pap 40 11/28/17 13:43 94 19 99 Bi-pap 40 11/28/17 13:43 40 11/28/17 12:00 60 11/28/17 12:00 40 11/28/17 12:00 97.2 60 23 134/76 (95) 100 97.2 11/28/17 10:05 84 22 98 Bi-pap 40 11/28/17 10:00 89 22 98 Bi-pap 40 11/28/17 10:00 63 136/77 11/28/17 09:50 94 32 99 Bi-pap 40 11/28/17 09:44 40 11/28/17 09:44 91 22 99 Bi-pap 40 11/28/17 09:44 Bi-pap 40 11/28/17 09:00 Nasal Cannula 4.0 11/28/17 08:00 63 11/28/17 08:00 40 11/28/17 08:00 98.0 63 30 136/77 (96) 100 98.0 11/28/17 05:24 64 14 97 Facial 40 11/28/17 04:00 98.2 60 28 143/71 (95) 100 98.2 11/28/17 04:00 40 11/28/17 03:49 61 11/28/17 03:33 68 34 99 Facial 40 11/28/17 02:23 92 36 99 Bi-pap 40 11/28/17 02:15 89 20 98 Bi-pap 40 11/28/17 02:15 40 11/28/17 01:20 61 36 98 Facial 40 Intake and Output 11/28/17 11/29/17 19:00 07:00 Output Total 500 ml Balance -500 ml Output Urine Total 500 ml # Bowel Movements 1 Laboratory Tests Test 11/28/17 07:30 Sodium Level 150 MMOL/L (136-145) H Potassium Level 3.4 MMOL/L (3.5-5.1) L Chloride Level 109 MMOL/L (98-107) H Carbon Dioxide Level 31 MMOL/L (21-32) Anion Gap 10 mmol/L (5-15) Blood Urea Nitrogen 100 mg/dL (7-18) H Creatinine 3.7 MG/DL (0.55-1.30) H Estimat Glomerular Filtration Rate mL/min (>60) Glucose Level 138 MG/DL (74-106) H Calcium Level 9.0 MG/DL (8.5-10.1) Height (Feet): 6 Height (Inches): 0.00 Weight (Pounds): 189 Medications Current Medications Medications (Trade) Dose Ordered Sig/Keira Route PRN Reason Start Time Stop Time Status Last Admin Dose Admin Acetaminophen (Tylenol) 650 mg Q4H PRN ORAL Mild Pain/Temp > 100.5 11/22/17 16:00 12/22/17 15:59 11/22/17 16:23 Albuterol/ Ipratropium (Albuterol/ Ipratropium) 3 ml Q4H PRN HHN Shortness of Breath 11/27/17 16:15 12/02/17 16:14 Albuterol/ Ipratropium (Albuterol/ Ipratropium) 3 ml Q6HRT HHN 11/27/17 19:00 12/02/17 18:59 11/28/17 19:08 Aspirin (Ecotrin) 81 mg DAILY ORAL 11/22/17 09:00 12/22/17 08:59 11/28/17 09:59 Carvedilol (Coreg) 6.25 mg Q12HR ORAL 11/23/17 21:00 12/23/17 20:59 11/28/17 22:00 Clopidogrel Bisulfate (Plavix) 75 mg DAILY GT 11/22/17 09:00 12/22/17 08:59 11/28/17 09:59 Colistimethate Sodium (Colistin *inhalation use only*) 150 mg Q12HR@10,22 INH 11/27/17 22:00 12/04/17 21:59 11/28/17 22:46 Dextrose 1,000 ml @ 50 mls/hr Q20H IV 11/28/17 10:44 12/28/17 10:43 11/28/17 13:45 Dextrose (Dextrose 50%) 25 ml STAT PRN IV Hypoglycemia 11/24/17 11:15 12/24/17 11:14 Dextrose (Dextrose 50%) 50 ml STAT PRN IV Hypoglycemia 11/24/17 11:15 12/24/17 11:14 Docusate Sodium (Colace) 100 mg TID GT 11/23/17 13:00 12/23/17 12:59 11/28/17 13:48 Heparin Sodium (Porcine) (Heparin 5000 units/ml) 5,000 units EVERY 12 HOURS SUBQ 11/22/17 09:00 8/6/18 08:59 11/28/17 22:08 Hydralazine HCl (Apresoline) 10 mg Q4H PRN GT For High BP over 160 syst 11/23/17 12:30 12/22/17 08:44 Insulin Aspart (NovoLOG) Q6HR SUBQ 11/24/17 13:00 12/24/17 12:59 11/28/17 17:51 Minocycline HCl (Minocin) 100 mg Q12HR ORAL 11/28/17 21:00 12/05/17 20:59 11/28/17 22:01 Pantoprazole (Protonix) 40 mg EVERY 12 HOURS IVP 11/23/17 12:30 12/23/17 12:29 11/28/17 22:01 Assessment/Plan Assessment/Plan encephalopathy agitation seroquel prJuventino Bolivar MD Nov 29, 2017 00:09
[2017-11-29] MEDS: Albuterol/Ipratropium 3ml neb HHN SCH ×4 (00:51→21:14)
[2017-11-29] MEDS: NovoLOG Insulin Flexpen SUBQ SCH ×4 (02:30→17:56)
[2017-11-29 04:00] VITALS: BP 155/80
[2017-11-29 08:00] VITALS: BP 156/81
[2017-11-29 08:21] LABS: ANION GAP 9 mmol/L (5-15); BLOOD UREA NITROGEN 90 mg/dL (7-18); CALCIUM 9.6 MG/DL (8.5-10.1); CARBON DIOXIDE 32 MMOL/L (21-32); CHLORIDE 107 MMOL/L (98-107); CREATININE 3.4 MG/DL (0.55-1.30); POTASSIUM 3.3 MMOL/L (3.5-5.1); SODIUM 148 MMOL/L (136-145)
--- NOTE | 2017-11-29 08:42 | Nephrology Progress Note ---
Assessment/Plan Assessment/Plan 1. 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 Down to 3.4 and BUN 90 - continue free water D5W 2. Hypokalemia- replace today 3. Resp Fl- stable. 4. HTN- stable 5. Hypernatremia- Na down to 148. Continue free water Subjective Date patient seen: Nov 29, 2017 Time patient seen: 08:40 ROS Limited/Unobtainable: No Allergies: Coded Allergies: No Known Allergies (Verified , 01/02/09) All Systems: reviewed and negative except above Subjective Patient off BiPAP. Family at bedside and patient improved Objective Last 24 Hour Vital Signs Date Time Temp Pulse Resp B/P (MAP) Pulse Ox O2 Delivery O2 Flow Rate FiO2 11/29/17 07:51 69 18 96 Bi-pap 40 11/29/17 07:47 78 14 99 Bi-pap 40 11/29/17 07:40 40 11/29/17 05:28 67 31 98 Facial 40 11/29/17 04:00 64 11/29/17 04:00 96.3 65 26 155/80 (105) 100 96.3 11/29/17 02:58 65 33 99 Facial 40 11/29/17 01:02 69 19 98 Facial 40 11/29/17 00:50 80 18 99 Bi-pap 40 11/29/17 00:42 40 11/29/17 00:42 81 18 99 Bi-pap 40 11/29/17 00:00 65 11/29/17 00:00 96.3 64 22 159/95 (116) 99 96.3 11/29/17 00:00 Nasal Cannula 4.0 11/28/17 22:29 71 20 98 Bi-pap 40 11/28/17 22:20 65 18 99 Bi-pap 40 11/28/17 22:08 65 18 99 Facial 40 11/28/17 22:00 66 147/87 11/28/17 20:00 4.0 11/28/17 20:00 97.1 66 18 147/86 (106) 96 97.1 11/28/17 19:10 88 20 97 Nasal Cannula 4.0 36 11/28/17 19:03 Nasal Cannula 4.0 36 11/28/17 19:01 36 11/28/17 19:01 87 18 88 Room Air 21 11/28/17 16:00 65 11/28/17 16:00 40 11/28/17 16:00 97.7 60 24 150/51 (84) 97 97.7 11/28/17 13:52 92 22 99 Bi-pap 40 11/28/17 13:43 94 19 99 Bi-pap 40 11/28/17 13:43 40 11/28/17 12:00 60 11/28/17 12:00 40 11/28/17 12:00 97.2 60 23 134/76 (95) 100 97.2 11/28/17 10:05 84 22 98 Bi-pap 40 11/28/17 10:00 89 22 98 Bi-pap 40 11/28/17 10:00 63 136/77 11/28/17 09:50 94 32 99 Bi-pap 40 11/28/17 09:44 40 11/28/17 09:44 91 22 99 Bi-pap 40 11/28/17 09:44 Bi-pap 40 11/28/17 09:00 Nasal Cannula 4.0 Intake and Output 11/28/17 11/29/17 19:00 07:00 Intake Total 985 ml Output Total 500 ml 1200 ml Balance -500 ml -215 ml Free Water 30 ml Tube Feeding 55 ml Other 900 ml Output Urine Total 500 ml 1200 ml # Bowel Movements 1 3 Laboratory Tests 11/29/17 07:01: Sodium Level 148H, Potassium Level 3.3L, Chloride Level 107, Carbon Dioxide Level 32, Anion Gap 9, Blood Urea Nitrogen 90H, Creatinine 3.4H, Estimat Glomerular Filtration Rate , Glucose Level 99, Calcium Level 9.6 Height (Feet): 6 Height (Inches): 0.00 Weight (Pounds): 189 General Appearance: WD/WN, no apparent distress EENT: PERRL/EOMI Neck: non-tender, normal alignment Cardiovascular: normal rate, regular rhythm Respiratory/Chest: lungs clear, normal breath sounds Abdomen: non tender, soft Pelvis: normal rectal exam Edema: no edema noted Arm (L), no edema noted Arm (R), no edema noted Leg (L), no edema noted Leg (R), no edema noted Pedal (L), no edema noted Pedal (R), no edema noted Generalized Tim Blake M.D. Nov 29, 2017 08:42
[2017-11-29] MEDS: Pantoprazole Inj IVP SCH ×2 (09:13→21:32)
[2017-11-29] MEDS: Minocycline HCl 50mg cap ORAL SCH ×2 (09:13→21:28)
[2017-11-29] MEDS: Carvedilol 6.25mg Tab ORAL SCH ×2 (09:14→21:32)
[2017-11-29] MEDS: Aspirin EC 81mg tab ORAL SCH (09:14)
[2017-11-29] MEDS: Docusate 100mg/10ml Liq GT SCH ×3 (09:14→17:54)
[2017-11-29] MEDS: Heparin 5000 units/ml inj SUBQ SCH ×2 (09:15→21:29)
[2017-11-29] MEDS: Colistin for inhalation INH SCH (11:43)
[2017-11-29 12:00] VITALS: BP 139/74
--- NOTE | 2017-11-29 14:53 | Pulmonology Progress Note ---
Assessment/Plan Assessment/Plan PROBLEM LIST: 1. Chronic hypercapnic and hypoxemic respiratory failure. 4. Respiratory muscle weakness. 5. Recent pneumonia and prolonged intubation. 6. Recent Dermabacter hominis bacteremia. 7. Recent fungal cystitis. 8. CHF with diastolic dysfunction. 9. PAN on CKD. 10. Anemia. 11. History of GI bleed. 12. History of CVA with organic brain syndrome. 13. Dysphagia, status post G-tube. TREATMENT PLAN: 1. nebs and suction 2. BiPAP / p.r.n. and nightly. 3. Titrate down FiO2 to keep saturations greater than 90% 6. Abx per ID. 7. Follow up cultures. 8. Monitor CXR Friday 9. Tube feeds 10. Monitor volumes and renal function. F/U renal recs 11. DVT prophylaxis, heparin subcutaneous. 12. DNR/DNI. Subjective ROS Limited/Unobtainable: Yes Allergies: Coded Allergies: No Known Allergies (Verified , 01/02/09) Subjective lethargic no distress postiive secretions no bleeding NPO and toleraing tf does not follow commands Objective Last 24 Hour Vital Signs Date Time Temp Pulse Resp B/P (MAP) Pulse Ox O2 Delivery O2 Flow Rate FiO2 11/29/17 14:27 88 18 99 Nasal Cannula 36 11/29/17 14:22 40 11/29/17 14:19 64 20 99 Nasal Cannula 4.0 36 11/29/17 11:59 79 20 99 Nasal Cannula 4.0 36 11/29/17 11:46 66 20 99 Nasal Cannula 4.0 36 11/29/17 09:14 67 156/81 11/29/17 07:51 69 18 96 Bi-pap 40 11/29/17 07:47 78 14 99 Bi-pap 40 11/29/17 07:40 40 11/29/17 05:28 67 31 98 Facial 40 11/29/17 04:00 64 11/29/17 04:00 96.3 65 26 155/80 (105) 100 96.3 11/29/17 02:58 65 33 99 Facial 40 11/29/17 01:02 69 19 98 Facial 40 11/29/17 00:50 80 18 99 Bi-pap 40 11/29/17 00:42 40 11/29/17 00:42 81 18 99 Bi-pap 40 11/29/17 00:00 65 11/29/17 00:00 96.3 64 22 159/95 (116) 99 96.3 11/29/17 00:00 Nasal Cannula 4.0 11/28/17 22:29 71 20 98 Bi-pap 40 11/28/17 22:20 65 18 99 Bi-pap 40 11/28/17 22:08 65 18 99 Facial 40 11/28/17 22:00 66 147/87 11/28/17 20:00 4.0 11/28/17 20:00 97.1 66 18 147/86 (106) 96 97.1 11/28/17 19:10 88 20 97 Nasal Cannula 4.0 36 11/28/17 19:03 Nasal Cannula 4.0 36 11/28/17 19:01 36 11/28/17 19:01 87 18 88 Room Air 21 11/28/17 16:00 65 11/28/17 16:00 40 11/28/17 16:00 97.7 60 24 150/51 (84) 97 97.7 Intake and Output 11/28/17 11/29/17 19:00 07:00 Intake Total 985 ml Output Total 500 ml 1200 ml Balance -500 ml -215 ml Free Water 30 ml Tube Feeding 55 ml Other 900 ml Output Urine Total 500 ml 1200 ml # Bowel Movements 1 3 General Appearance: cachetic HEENT: atraumatic, anicteric Respiratory/Chest: rhonchi Cardiovascular: normal rate, regular rhythm, edema Abdomen: normal bowel sounds, no organomegaly Neurologic/Psychiatric: disoriented, unresponsiveness Laboratory Tests 11/29/17 07:01: Sodium Level 148H, Potassium Level 3.3L, Chloride Level 107, Carbon Dioxide Level 32, Anion Gap 9, Blood Urea Nitrogen 90H, Creatinine 3.4H, Estimat Glomerular Filtration Rate , Glucose Level 99, Calcium Level 9.6 Current Medications Medications (Trade) Dose Ordered Sig/Keira Route PRN Reason Start Time Stop Time Status Last Admin Dose Admin Acetaminophen (Tylenol) 650 mg Q4H PRN ORAL Mild Pain/Temp > 100.5 11/22/17 16:00 12/22/17 15:59 11/22/17 16:23 Albuterol/ Ipratropium (Albuterol/ Ipratropium) 3 ml Q4H PRN HHN Shortness of Breath 11/27/17 16:15 12/02/17 16:14 Albuterol/ Ipratropium (Albuterol/ Ipratropium) 3 ml Q6HRT HHN 11/27/17 19:00 12/02/17 18:59 11/29/17 14:24 Aspirin (Ecotrin) 81 mg DAILY ORAL 11/22/17 09:00 12/22/17 08:59 11/29/17 09:14 Carvedilol (Coreg) 6.25 mg Q12HR ORAL 11/23/17 21:00 12/23/17 20:59 11/29/17 09:14 Clopidogrel Bisulfate (Plavix) 75 mg DAILY GT 11/22/17 09:00 12/22/17 08:59 11/29/17 09:13 Colistimethate Sodium (Colistin *inhalation use only*) 150 mg Q12HR@10,22 INH 11/27/17 22:00 12/04/17 21:59 11/29/17 11:43 Dextrose 1,000 ml @ 50 mls/hr Q20H IV 11/28/17 10:44 12/28/17 10:43 11/29/17 07:23 Dextrose (Dextrose 50%) 25 ml STAT PRN IV Hypoglycemia 11/24/17 11:15 12/24/17 11:14 Dextrose (Dextrose 50%) 50 ml STAT PRN IV Hypoglycemia 11/24/17 11:15 12/24/17 11:14 Docusate Sodium (Colace) 100 mg TID GT 11/23/17 13:00 12/23/17 12:59 11/29/17 13:36 Heparin Sodium (Porcine) (Heparin 5000 units/ml) 5,000 units EVERY 12 HOURS SUBQ 11/22/17 09:00 12/22/17 08:59 11/29/17 09:15 Hydralazine HCl (Apresoline) 10 mg Q4H PRN GT For High BP over 160 syst 11/23/17 12:30 12/22/17 08:44 Insulin Aspart (NovoLOG) Q6HR SUBQ 11/24/17 13:00 12/24/17 12:59 11/29/17 13:33 Minocycline HCl (Minocin) 100 mg Q12HR ORAL 11/28/17 21:00 12/05/17 20:59 11/29/17 09:13 Pantoprazole (Protonix) 40 mg EVERY 12 HOURS IVP 11/23/17 12:30 12/23/17 12:29 11/29/17 09:13 Quetiapine Fumarate (SEROquel) 12.5 mg Q4H PRN ORAL anxiety 11/29/17 00:15 12/29/17 00:14 Paz Gonzalez DO Nov 29, 2017 14:53
[2017-11-29] MEDS ORDERED: NS 275ml ONE (15:08)
[2017-11-29] MEDS ORDERED: Sterile Water Irrig 1000ml IRRIG ONE (15:08)
[2017-11-29 16:00] VITALS: BP 150/79
[2017-11-29 20:00] VITALS: BP 150/79
--- NOTE | 2017-11-29 21:20 | Cardiology Report ---
APPROVED REPORT EXAM: Two-dimensional and M-mode echocardiogram with Doppler and color Doppler. INDICATION Congestive Heart Failure M-Mode DIMENSIONS IVSd1.3 (0.7-1.1cm)Left Atrium (MM)4.2 (1.6-4.0cm) LVDd2.0 (3.5-5.6cm)Aortic Root2.8 (2.0-3.7cm) PWd2.2 (0.7-1.1cm)Aortic Cusp Exc.1.6 (1.5-2.0cm) LVDs2.1 (2.5-4.0cm) PWs1.7 cm Technically difficult study due to poor acoustical windows. Patient on respirator. Normal left ventricular chamber size, systolic function and wall motion. Left ventricular ejection fraction estimated to be 60-65%. Moderate left ventricular hypertrophy. No evidence of pericardial or pleural effusion. All other cardiac chamber sizes are within normal limits. Focal aortic valve sclerosis with adequate cusp excursion. Thickened mitral valve leaflets with normal excursion. Mild mitral annulus and aortic root calcification. Pulmonic valve is well visualized. Normal tricuspid valve structure. IVC is not obtainable due to IG tube. A color flow and spectral Doppler study was performed and revealed: No aortic regurgitation. No mitral regurgitation. Mitral diastolic velocities suggest reduced left ventricular relaxation c/w diastolic dysfunction grade 1. No tricuspid regurgitation.
[2017-11-30] VITALS (7 sets, daily range): BP systolic 131–155; BP diastolic 76–90
[2017-11-30] MEDS: Albuterol/Ipratropium 3ml neb HHN SCH ×4 (01:18→18:51)
[2017-11-30] MEDS: NovoLOG Insulin Flexpen SUBQ SCH ×4 (01:26→18:11)
[2017-11-30] MEDS: Colistin for inhalation INH SCH ×3 (01:28→22:27)
[2017-11-30 08:09] LABS: ANION GAP 9 mmol/L (5-15); BLOOD UREA NITROGEN 82 mg/dL (7-18); CALCIUM 9.7 MG/DL (8.5-10.1); CARBON DIOXIDE 30 MMOL/L (21-32); CHLORIDE 106 MMOL/L (98-107); POTASSIUM 3.9 MMOL/L (3.5-5.1); SODIUM 145 MMOL/L (136-145)
[2017-11-30] MEDS: Docusate 100mg/10ml Liq GT SCH ×3 (09:00→18:08)
--- NOTE | 2017-11-30 09:11 | Nephrology Progress Note ---
Assessment/Plan Assessment/Plan 1. PAN on CKD 4- BL Cr 2.2 - Cr continues to improve as Cr 3 and BUN 80 - DC D5W 2. Hypokalemia- replace prn 3. Resp Fl- stable. 4. HTN- stable 5. Hypernatremia- resolved, DC D5W Subjective Date patient seen: Nov 30, 2017 Time patient seen: 09:07 ROS Limited/Unobtainable: No Constitutional: Reports: weakness Allergies: Coded Allergies: No Known Allergies (Verified , 01/02/09) All Systems: reviewed and negative except above Subjective Patient off BiPAP and improved watching TV Objective Last 24 Hour Vital Signs Date Time Temp Pulse Resp B/P (MAP) Pulse Ox O2 Delivery O2 Flow Rate FiO2 11/30/17 06:24 97.4 21 151/90 (110) 72 97.4 11/30/17 04:00 63 11/30/17 04:00 97.4 21 151/90 (110) 100 97.4 11/30/17 02:30 63 21 100 Facial 40 11/30/17 01:42 69 23 100 Bi-pap 40 11/30/17 01:28 73 28 100 Bi-pap 40 11/30/17 01:28 73 28 100 Bi-pap 40 11/30/17 01:18 40 11/30/17 01:18 66 41 93 Bi-pap 40 11/30/17 00:53 65 30 98 Facial 40 11/30/17 00:00 66 11/30/17 00:00 97.7 69 24 153/89 (110) 97 97.7 11/29/17 23:25 64 25 98 Facial 40 11/29/17 21:36 75 32 98 Facial 40 11/29/17 21:32 75 150/79 11/29/17 21:26 75 25 98 Nasal Cannula 4.0 36 11/29/17 21:14 70 28 98 Nasal Cannula 4.0 36 11/29/17 21:14 Nasal Cannula 4.0 36 11/29/17 21:14 36 11/29/17 21:14 70 20 98 Nasal Cannula 4.0 36 11/29/17 21:00 Nasal Cannula 4.0 11/29/17 20:03 2.0 11/29/17 20:00 68 11/29/17 20:00 97.3 67 24 150/79 (102) 99 97.3 11/29/17 16:00 97.3 67 24 150/79 (102) 99 97.3 11/29/17 16:00 62 11/29/17 16:00 4.0 11/29/17 14:27 88 18 99 Nasal Cannula 36 11/29/17 14:22 40 11/29/17 14:19 64 20 99 Nasal Cannula 4.0 36 11/29/17 12:00 97.5 60 22 139/74 (95) 100 97.5 11/29/17 12:00 63 11/29/17 12:00 4.0 11/29/17 11:59 79 20 99 Nasal Cannula 4.0 36 11/29/17 11:46 66 20 99 Nasal Cannula 4.0 36 11/29/17 09:14 67 156/81 Intake and Output 11/29/17 11/30/17 19:00 07:00 Intake Total 550 ml 450 ml Output Total 750 ml 850 ml Balance -200 ml -400 ml Intake Oral 0 ml IV Total 550 ml 450 ml Output Urine Total 750 ml 850 ml # Bowel Movements 1 2 Laboratory Tests 11/30/17 07:00: Sodium Level 145, Potassium Level 3.9, Chloride Level 106, Carbon Dioxide Level 30, Anion Gap 9, Blood Urea Nitrogen 82H, Creatinine 3.0H, Estimat Glomerular Filtration Rate , Glucose Level 106, Calcium Level 9.7 Height (Feet): 6 Height (Inches): 0.00 Weight (Pounds): 189 General Appearance: WD/WN, no apparent distress EENT: PERRL/EOMI Neck: non-tender, normal alignment, supple Cardiovascular: normal rate, regular rhythm Respiratory/Chest: chest wall non-tender, lungs clear Abdomen: normal bowel sounds, non tender, soft Edema: no edema noted Arm (L), no edema noted Arm (R), no edema noted Leg (L), no edema noted Leg (R), no edema noted Pedal (L), no edema noted Pedal (R), no edema noted Generalized Tim Blake M.D. Nov 30, 2017 09:11
[2017-11-30] MEDS: Minocycline HCl 50mg cap ORAL SCH ×2 (09:57→21:09)
[2017-11-30] MEDS: Pantoprazole Inj IVP SCH ×2 (09:57→21:09)
[2017-11-30] MEDS: Aspirin EC 81mg tab ORAL SCH (09:58)
[2017-11-30] MEDS: Carvedilol 6.25mg Tab ORAL SCH ×2 (09:58→21:10)
[2017-11-30] MEDS: Heparin 5000 units/ml inj SUBQ SCH ×2 (10:00→21:12)
--- NOTE | 2017-11-30 12:17 | Infectious Diseases Prog Note ---
Assessment/Plan Assessment/Plan A 1. pneumonia 2. leucocytosis improving 3. renal failure 4. diabetes mellitus 5. hypertension P 1. continue inhaled colistin and Minocycline Subjective ROS Limited/Unobtainable: Yes Allergies: Coded Allergies: No Known Allergies (Verified , 01/02/09) Objective Vital Signs Last 24 Hour Vital Signs Date Time Temp Pulse Resp B/P (MAP) Pulse Ox O2 Delivery O2 Flow Rate FiO2 11/30/17 11:48 72 22 100 Nasal Cannula 4.0 36 11/30/17 11:40 68 20 98 Nasal Cannula 4.0 36 11/30/17 09:58 79 153/86 11/30/17 09:00 Nasal Cannula 4.0 11/30/17 08:00 63 11/30/17 08:00 4.0 11/30/17 08:00 97.0 79 21 153/86 (108) 96 97.0 11/30/17 07:30 70 22 100 Nasal Cannula 4.0 36 11/30/17 07:30 Nasal Cannula 4.0 36 11/30/17 07:20 66 20 99 Nasal Cannula 4.0 36 11/30/17 06:24 97.4 21 151/90 (110) 72 97.4 11/30/17 04:00 63 11/30/17 04:00 97.4 21 151/90 (110) 100 97.4 11/30/17 02:30 63 21 100 Facial 40 11/30/17 01:42 69 23 100 Bi-pap 40 11/30/17 01:28 73 28 100 Bi-pap 40 11/30/17 01:28 73 28 100 Bi-pap 40 11/30/17 01:18 40 11/30/17 01:18 66 41 93 Bi-pap 40 11/30/17 00:53 65 30 98 Facial 40 11/30/17 00:00 66 11/30/17 00:00 97.7 69 24 153/89 (110) 97 97.7 11/29/17 23:25 64 25 98 Facial 40 11/29/17 21:36 75 32 98 Facial 40 11/29/17 21:32 75 150/79 11/29/17 21:26 75 25 98 Nasal Cannula 4.0 36 11/29/17 21:14 70 28 98 Nasal Cannula 4.0 36 11/29/17 21:14 Nasal Cannula 4.0 36 11/29/17 21:14 36 11/29/17 21:14 70 20 98 Nasal Cannula 4.0 36 11/29/17 21:00 Nasal Cannula 4.0 11/29/17 20:03 2.0 11/29/17 20:00 68 11/29/17 20:00 97.3 67 24 150/79 (102) 99 97.3 11/29/17 16:00 97.3 67 24 150/79 (102) 99 97.3 11/29/17 16:00 62 11/29/17 16:00 4.0 11/29/17 14:27 88 18 99 Nasal Cannula 36 11/29/17 14:22 40 11/29/17 14:19 64 20 99 Nasal Cannula 4.0 36 Height (Feet): 6 Height (Inches): 0.00 Weight (Pounds): 189 HEENT: mucous membranes moist Respiratory/Chest: lungs clear, other - oxygen by nasal cannula Cardiovascular: normal rate Abdomen: soft, non tender, other - GT feeding Extremities: no edema Neurologic/Psychiatric: aphasia Laboratory Tests Test 11/30/17 07:00 Sodium Level 145 MMOL/L (136-145) Potassium Level 3.9 MMOL/L (3.5-5.1) Chloride Level 106 MMOL/L (98-107) Carbon Dioxide Level 30 MMOL/L (21-32) Anion Gap 9 mmol/L (5-15) Blood Urea Nitrogen 82 mg/dL (7-18) H Creatinine 3.0 MG/DL (0.55-1.30) H Estimat Glomerular Filtration Rate mL/min (>60) Glucose Level 106 MG/DL (74-106) Calcium Level 9.7 MG/DL (8.5-10.1) Current Medications Medications (Trade) Dose Ordered Sig/Keira Route PRN Reason Start Time Stop Time Status Last Admin Dose Admin Acetaminophen (Tylenol) 650 mg Q4H PRN ORAL Mild Pain/Temp > 100.5 11/22/17 16:00 12/22/17 15:59 11/22/17 16:23 Albuterol/ Ipratropium (Albuterol/ Ipratropium) 3 ml Q4H PRN HHN Shortness of Breath 11/27/17 16:15 12/02/17 16:14 Albuterol/ Ipratropium (Albuterol/ Ipratropium) 3 ml Q6HRT HHN 11/27/17 19:00 12/02/17 18:59 11/30/17 07:21 Aspirin (Ecotrin) 81 mg DAILY ORAL 11/22/17 09:00 12/22/17 08:59 11/30/17 09:58 Carvedilol (Coreg) 6.25 mg Q12HR ORAL 11/23/17 21:00 12/23/17 20:59 11/30/17 09:58 Clopidogrel Bisulfate (Plavix) 75 mg DAILY GT 11/22/17 09:00 12/22/17 08:59 11/30/17 09:58 Colistimethate Sodium (Colistin *inhalation use only*) 150 mg Q12HR@10,22 INH 11/27/17 22:00 12/04/17 21:59 11/30/17 11:45 Dextrose (Dextrose 50%) 25 ml STAT PRN IV Hypoglycemia 11/24/17 11:15 12/24/17 11:14 Dextrose (Dextrose 50%) 50 ml STAT PRN IV Hypoglycemia 11/24/17 11:15 12/24/17 11:14 Docusate Sodium (Colace) 100 mg TID GT 11/23/17 13:00 12/23/17 12:59 11/29/17 17:54 Heparin Sodium (Porcine) (Heparin 5000 units/ml) 5,000 units EVERY 12 HOURS SUBQ 11/22/17 09:00 12/22/17 08:59 11/30/17 10:00 Hydralazine HCl (Apresoline) 10 mg Q4H PRN GT For High BP over 160 syst 11/23/17 12:30 12/22/17 08:44 Insulin Aspart (NovoLOG) Q6HR SUBQ 11/24/17 13:00 12/24/17 12:59 11/30/17 01:26 Minocycline HCl (Minocin) 100 mg Q12HR ORAL 11/28/17 21:00 12/05/17 20:59 11/30/17 09:57 Pantoprazole (Protonix) 40 mg EVERY 12 HOURS IVP 11/23/17 12:30 12/23/17 12:29 11/30/17 09:57 Quetiapine Fumarate (SEROquel) 12.5 mg Q4H PRN ORAL anxiety 11/29/17 00:15 12/29/17 00:14 Donnell Murray MD Nov 30, 2017 12:17
--- NOTE | 2017-11-30 14:32 | Pulmonology Progress Note ---
Assessment/Plan Assessment/Plan PROBLEM LIST: 1. Chronic hypercapnic and hypoxemic respiratory failure. 4. Respiratory muscle weakness. 5. Recent pneumonia and prolonged intubation. 6. Recent Dermabacter hominis bacteremia. 7. Recent fungal cystitis. 8. CHF with diastolic dysfunction. 9. PAN on CKD. 10. Anemia. 11. History of GI bleed. 12. History of CVA with organic brain syndrome. 13. Dysphagia, status post G-tube. TREATMENT PLAN: 1. nebs and suction 2. BiPAP 17/ p.r.n. and nightly. 3. Titrate down FiO2 to keep saturations greater than 90% 6. Abx per ID. 7. check Labs no cbc since 11/26 8. Monitor CXR Friday-ordered 9. Tube feeds 10. Monitor volumes and renal function. F/U renal recs 11. DVT prophylaxis, heparin subcutaneous. 12. DNR/DNI. Subjective ROS Limited/Unobtainable: Yes Allergies: Coded Allergies: No Known Allergies (Verified , 01/02/09) Subjective remains lethargic no distress positive secretions no bleeding NPO and tolerating tf does not follow commands no family at the bedside Objective Last 24 Hour Vital Signs Date Time Temp Pulse Resp B/P (MAP) Pulse Ox O2 Delivery O2 Flow Rate FiO2 11/30/17 13:24 70 20 100 Nasal Cannula 4.0 36 11/30/17 13:15 68 20 99 Nasal Cannula 4.0 36 11/30/17 12:00 75 11/30/17 12:00 4.0 11/30/17 12:00 97.8 78 21 131/79 (96) 96 97.8 11/30/17 11:48 72 22 100 Nasal Cannula 4.0 36 11/30/17 11:40 68 20 98 Nasal Cannula 4.0 36 11/30/17 09:58 79 153/86 11/30/17 09:00 Nasal Cannula 4.0 11/30/17 08:00 63 11/30/17 08:00 4.0 11/30/17 08:00 97.0 79 21 153/86 (108) 96 97.0 11/30/17 07:30 70 22 100 Nasal Cannula 4.0 36 11/30/17 07:30 Nasal Cannula 4.0 36 11/30/17 07:20 66 20 99 Nasal Cannula 4.0 36 11/30/17 06:24 97.4 21 151/90 (110) 72 97.4 11/30/17 04:00 63 11/30/17 04:00 97.4 21 151/90 (110) 100 97.4 11/30/17 02:30 63 21 100 Facial 40 11/30/17 01:42 69 23 100 Bi-pap 40 11/30/17 01:28 73 28 100 Bi-pap 40 11/30/17 01:28 73 28 100 Bi-pap 40 11/30/17 01:18 40 11/30/17 01:18 66 41 93 Bi-pap 40 11/30/17 00:53 65 30 98 Facial 40 11/30/17 00:00 66 11/30/17 00:00 97.7 69 24 153/89 (110) 97 97.7 11/29/17 23:25 64 25 98 Facial 40 11/29/17 21:36 75 32 98 Facial 40 11/29/17 21:32 75 150/79 11/29/17 21:26 75 25 98 Nasal Cannula 4.0 36 11/29/17 21:14 70 28 98 Nasal Cannula 4.0 36 11/29/17 21:14 Nasal Cannula 4.0 36 11/29/17 21:14 36 11/29/17 21:14 70 20 98 Nasal Cannula 4.0 36 11/29/17 21:00 Nasal Cannula 4.0 11/29/17 20:03 2.0 11/29/17 20:00 68 11/29/17 20:00 97.3 67 24 150/79 (102) 99 97.3 11/29/17 16:00 97.3 67 24 150/79 (102) 99 97.3 11/29/17 16:00 62 11/29/17 16:00 4.0 Intake and Output 11/29/17 11/30/17 19:00 07:00 Intake Total 550 ml 450 ml Output Total 750 ml 850 ml Balance -200 ml -400 ml Intake Oral 0 ml IV Total 550 ml 450 ml Output Urine Total 750 ml 850 ml # Bowel Movements 1 2 General Appearance: cachetic HEENT: atraumatic, mucous membranes moist Respiratory/Chest: rhonchi Cardiovascular: normal rate, regular rhythm, murmur systolic, edema Abdomen: soft, non tender, no organomegaly Extremities: other - contracted Skin: other Neurologic/Psychiatric: disoriented, unresponsiveness Laboratory Tests 11/30/17 07:00: Sodium Level 145, Potassium Level 3.9, Chloride Level 106, Carbon Dioxide Level 30, Anion Gap 9, Blood Urea Nitrogen 82H, Creatinine 3.0H, Estimat Glomerular Filtration Rate , Glucose Level 106, Calcium Level 9.7 Current Medications Medications (Trade) Dose Ordered Sig/Keira Route PRN Reason Start Time Stop Time Status Last Admin Dose Admin Acetaminophen (Tylenol) 650 mg Q4H PRN ORAL Mild Pain/Temp > 100.5 11/22/17 16:00 12/22/17 15:59 11/22/17 16:23 Albuterol/ Ipratropium (Albuterol/ Ipratropium) 3 ml Q4H PRN HHN Shortness of Breath 11/27/17 16:15 12/02/17 16:14 Albuterol/ Ipratropium (Albuterol/ Ipratropium) 3 ml Q6HRT HHN 11/27/17 19:00 12/02/17 18:59 11/30/17 13:15 Aspirin (Ecotrin) 81 mg DAILY ORAL 11/22/17 09:00 12/22/17 08:59 11/30/17 09:58 Carvedilol (Coreg) 6.25 mg Q12HR ORAL 11/23/17 21:00 12/23/17 20:59 11/30/17 09:58 Clopidogrel Bisulfate (Plavix) 75 mg DAILY GT 11/22/17 09:00 12/22/17 08:59 11/30/17 09:58 Colistimethate Sodium (Colistin *inhalation use only*) 150 mg Q12HR@10,22 INH 11/27/17 22:00 12/04/17 21:59 11/30/17 11:45 Dextrose (Dextrose 50%) 25 ml STAT PRN IV Hypoglycemia 11/24/17 11:15 12/24/17 11:14 Dextrose (Dextrose 50%) 50 ml STAT PRN IV Hypoglycemia 11/24/17 11:15 12/24/17 11:14 Docusate Sodium (Colace) 100 mg TID GT 11/23/17 13:00 12/23/17 12:59 11/30/17 12:49 Heparin Sodium (Porcine) (Heparin 5000 units/ml) 5,000 units EVERY 12 HOURS SUBQ 11/22/17 09:00 12/22/17 08:59 11/30/17 10:00 Hydralazine HCl (Apresoline) 10 mg Q4H PRN GT For High BP over 160 syst 11/23/17 12:30 12/22/17 08:44 Insulin Aspart (NovoLOG) Q6HR SUBQ 11/24/17 13:00 12/24/17 12:59 11/30/17 12:23 Minocycline HCl (Minocin) 100 mg Q12HR ORAL 11/28/17 21:00 12/05/17 20:59 11/30/17 09:57 Pantoprazole (Protonix) 40 mg EVERY 12 HOURS IVP 11/23/17 12:30 12/23/17 12:29 11/30/17 09:57 Quetiapine Fumarate (SEROquel) 12.5 mg Q4H PRN ORAL anxiety 11/29/17 00:15 12/29/17 00:14 Paz Gonzalez DO Nov 30, 2017 14:32
--- NOTE | 2017-11-30 17:00 | Internal Med Progress Note ---
Subjective Date of Service: Nov 30, 2017 Physician Name Staci Chacon Attending Physician Staci Chacon Current Medications Medications (Trade) Dose Ordered Sig/Keira Route PRN Reason Start Time Stop Time Status Last Admin Dose Admin Acetaminophen (Tylenol) 650 mg Q4H PRN ORAL Mild Pain/Temp > 100.5 11/22/17 16:00 12/22/17 15:59 11/22/17 16:23 Albuterol/ Ipratropium (Albuterol/ Ipratropium) 3 ml Q4H PRN HHN Shortness of Breath 11/27/17 16:15 12/02/17 16:14 Albuterol/ Ipratropium (Albuterol/ Ipratropium) 3 ml Q6HRT HHN 11/27/17 19:00 12/02/17 18:59 11/30/17 13:15 Aspirin (Ecotrin) 81 mg DAILY ORAL 11/22/17 09:00 12/22/17 08:59 11/30/17 09:58 Carvedilol (Coreg) 6.25 mg Q12HR ORAL 11/23/17 21:00 12/23/17 20:59 11/30/17 09:58 Clopidogrel Bisulfate (Plavix) 75 mg DAILY GT 11/22/17 09:00 12/22/17 08:59 11/30/17 09:58 Colistimethate Sodium (Colistin *inhalation use only*) 150 mg Q12HR@10,22 INH 11/27/17 22:00 12/04/17 21:59 11/30/17 11:45 Dextrose (Dextrose 50%) 25 ml STAT PRN IV Hypoglycemia 11/24/17 11:15 12/24/17 11:14 Dextrose (Dextrose 50%) 50 ml STAT PRN IV Hypoglycemia 11/24/17 11:15 12/24/17 11:14 Docusate Sodium (Colace) 100 mg TID GT 11/23/17 13:00 12/23/17 12:59 11/30/17 12:49 Heparin Sodium (Porcine) (Heparin 5000 units/ml) 5,000 units EVERY 12 HOURS SUBQ 11/22/17 09:00 12/22/17 08:59 11/30/17 10:00 Hydralazine HCl (Apresoline) 10 mg Q4H PRN GT For High BP over 160 syst 11/23/17 12:30 12/22/17 08:44 Insulin Aspart (NovoLOG) Q6HR SUBQ 11/24/17 13:00 12/24/17 12:59 11/30/17 12:23 Minocycline HCl (Minocin) 100 mg Q12HR ORAL 11/28/17 21:00 12/05/17 20:59 11/30/17 09:57 Pantoprazole (Protonix) 40 mg EVERY 12 HOURS IVP 11/23/17 12:30 12/23/17 12:29 11/30/17 09:57 Quetiapine Fumarate (SEROquel) 12.5 mg Q4H PRN ORAL anxiety 11/29/17 00:15 12/29/17 00:14 Allergies: Coded Allergies: No Known Allergies (Verified , 01/02/09) ROS Limited/Unobtainable: Yes Objective Last Vital Signs Date Time Temp Pulse Resp B/P (MAP) Pulse Ox O2 Delivery O2 Flow Rate FiO2 11/30/17 16:01 97.9 74 19 146/84 (104) 97 97.9 11/30/17 16:00 4.0 11/30/17 13:24 Nasal Cannula 36 General Appearance: WD/WN, no apparent distress Neck: non-tender, supple Cardiovascular: normal rate, regular rhythm, regularly irregular, systolic murmur Respiratory/Chest: lungs clear, normal breath sounds, no respiratory distress, no accessory muscle use Abdomen: non tender, soft, no organomegaly, no mass, other - PEG Genitourinary/Rectal: normal genital exam, other - elder Laboratory Tests Test 11/30/17 07:00 Sodium Level 145 MMOL/L (136-145) Potassium Level 3.9 MMOL/L (3.5-5.1) Chloride Level 106 MMOL/L (98-107) Carbon Dioxide Level 30 MMOL/L (21-32) Anion Gap 9 mmol/L (5-15) Blood Urea Nitrogen 82 mg/dL (7-18) H Creatinine 3.0 MG/DL (0.55-1.30) H Estimat Glomerular Filtration Rate mL/min (>60) Glucose Level 106 MG/DL (74-106) Calcium Level 9.7 MG/DL (8.5-10.1) Intake and Output 11/29/17 11/30/17 19:00 07:00 Intake Total 550 ml 450 ml Output Total 750 ml 850 ml Balance -200 ml -400 ml Intake Oral 0 ml IV Total 550 ml 450 ml Output Urine Total 750 ml 850 ml # Bowel Movements 1 2 Assessment/Plan Status: doing well, stable, progressing Assessment/Plan IMPRESSION: 1. SIRS. 2. Recurrent UTI. 3. Chronic hypercapnic and hypoxemic respiratory failure. 4. PAN on Chronic kidney disease, stage 3-4. likely ATN picture 5. Recent history of fungal cystitis. 6. Recent history of Dermabacter hominis bacteremia. 7. Recurrent pneumonia, aspiration pneumonitis. 8. History of GI bleed. 9. Anemia of chronic disease. 10. History of CVA with organic brain syndrome. 11. Chronic right-sided hemiplegia. 12. Dysphagia, status post gastrostomy tube placement. 13. Leukocytosis. 14. Bedbound. 15. Functional quadriplegia. PLAN: DC IVF k replete as needed monitor cr on lasix BIPAP QHS & PRN IV antibiotic. HHN/PO ID and renal f/u. Tube feeding Monitor volume and renal function. DVT and GI prophylaxis. Pulmonary nebulizer. The patient is DNR and DNI. Case discussed with assurance officer at length. dc planning 12/01 back to [facility] over 35 min spent today time of this note may not be the actual encounter time with the patient. STACI CHACON Nov 30, 2017 17:00
[2017-11-30 19:00] LABS: EOSINOPHILS % (AUTO) 6.4 % (0.0-3.0); HEMATOCRIT 28.8 % (42.0-52.0); HEMOGLOBIN 9.1 G/DL (14.2-18.0); MEAN CORPUSCULAR VOLUME 84 FL (80-99); NEUTROPHILS % (AUTO) 55.6 % (45.0-75.0); PLATELET COUNT 233 K/UL (150-450); RED BLOOD COUNT 3.43 M/UL (4.70-6.10); RED CELL DISTRIBUTION WIDTH 16.6 % (11.6-14.8); WHITE BLOOD COUNT 9.2 K/UL (4.8-10.8)
[2017-12-01] VITALS (7 sets, daily range): BP systolic 144–180; BP diastolic 69–95
[2017-12-01] MEDS: Albuterol/Ipratropium 3ml neb HHN SCH ×3 (00:56→16:14)
[2017-12-01] MEDS: NovoLOG Insulin Flexpen SUBQ SCH ×3 (06:00→11:38)
--- NOTE | 2017-12-01 08:24 | Pulmonology Progress Note ---
Assessment/Plan Problems: (1) HCAP (healthcare-associated pneumonia) (2) Aspiration pneumonia (3) UTI (urinary tract infection) (4) Acute respiratory failure (5) ARF (acute renal failure) (6) recent L MCA ischemic stroke (7) Encephalopathy due to infection (8) G-tube site cellulitis (9) Bacterial infection due to Staphylococcus (10) Hydronephrosis of left kidney Assessment/Plan ASSESSMENT: The patient is an 87-year-old male with history of CVA, aphasia, dysphagia, status post G-tube, anemia, hypertension, urinary retention, multiple recent hospitalizations, and chronic hypercapnic and hypoxemic respiratory failure, admitted with worsening shortness of breath, noted to have a UTI plus or minus pneumonic infiltrate. PROBLEM LIST: 1. Systemic inflammatory response syndrome. 2. Recurrent UTI. 3. Chronic hypercapnic and hypoxemic respiratory failure. 4. Respiratory muscle weakness. 5. Recent pneumonia and prolonged intubation. 6. Recent Dermabacter hominis bacteremia. 7. Recent fungal cystitis. 8. CHF with diastolic dysfunction. 9. PAN on CKD. 10. Anemia. 11. History of GI bleed. 12. History of CVA with organic brain syndrome. 13. Dysphagia, status post G-tube. TREATMENT PLAN: 1. Optimize pulmonary hygiene/mobilize as tolerated. 2. BiPAP 17/5 p.r.n. and nightly. 3. Titrate down FiO2 to keep saturations greater than 90%. 4. [id number] and p.r.n. DuoNebs. 5. Suctioning as able. 6. Abx per ID. 7. Follow up cultures. 8. Monitor CXR 9. Tube feeds 10. Monitor volumes and renal function. F/U renal recs 11. DVT prophylaxis, heparin subcutaneous. 12. DNR/DNI. Subjective Allergies: Coded Allergies: No Known Allergies (Verified , 01/02/09) Subjective Weekend events reviewed Doing better overall O2 needs stable, BiPAP at night only Renal function slowly improving Tommy TF's No respiratory distress, no cough, no SOB Objective Last 24 Hour Vital Signs Date Time Temp Pulse Resp B/P (MAP) Pulse Ox O2 Delivery O2 Flow Rate FiO2 12/01/17 04:59 82 26 99 Facial 40 12/01/17 04:00 40 12/01/17 04:00 97.6 64 19 159/90 (113) 100 97.6 7/16/18 04:00 64 12/01/17 02:51 71 20 99 Facial 40 12/01/17 01:42 182/95 12/01/17 01:07 72 20 98 Nasal Cannula 4.0 36 12/01/17 00:57 71 22 98 Facial 40 12/01/17 00:56 60 22 98 Bi-pap 40 12/01/17 00:00 40 12/01/17 00:00 97.8 64 19 180/95 (123) 100 97.8 12/01/17 00:00 59 11/30/17 22:30 65 21 98 Facial 40 11/30/17 22:28 65 22 96 Nasal Cannula 4.0 36 11/30/17 21:10 66 155/76 11/30/17 21:00 Nasal Cannula 4.0 11/30/17 20:00 4.0 11/30/17 20:00 65 11/30/17 20:00 98.0 66 19 155/76 (102) 97 98.0 11/30/17 18:59 65 20 98 Nasal Cannula 4.0 36 11/30/17 18:53 Nasal Cannula 4.0 36 11/30/17 18:51 71 20 96 Nasal Cannula 4.0 36 11/30/17 18:50 60 20 96 Nasal Cannula 4.0 36 11/30/17 16:01 97.9 74 19 146/84 (104) 97 97.9 11/30/17 16:00 70 11/30/17 16:00 4.0 11/30/17 13:24 70 20 100 Nasal Cannula 4.0 36 11/30/17 13:15 68 20 99 Nasal Cannula 4.0 36 11/30/17 12:00 75 11/30/17 12:00 4.0 11/30/17 12:00 97.8 78 21 131/79 (96) 96 97.8 11/30/17 11:48 72 22 100 Nasal Cannula 4.0 36 11/30/17 11:40 68 20 98 Nasal Cannula 4.0 36 11/30/17 09:58 79 153/86 11/30/17 09:00 Nasal Cannula 4.0 Intake and Output 11/30/17 12/01/17 19:00 07:00 Intake Total 1030 ml 220 ml Output Total 700 ml 450 ml Balance 330 ml -230 ml Intake Oral 0 ml Free Water 160 ml IV Total 100 ml Tube Feeding 660 ml 220 ml Other 110 ml Output Urine Total 700 ml 450 ml # Bowel Movements 2 4 General Appearance: no acute distress HEENT: normocephalic, atraumatic, mucous membranes moist Respiratory/Chest: chest wall non-tender, lungs clear, normal breath sounds, no respiratory distress, no accessory muscle use Cardiovascular: normal peripheral pulses, normal rate, regular rhythm Abdomen: normal bowel sounds, soft, non tender, no organomegaly, non distended , no mass, other - GT Extremities: no cyanosis, no clubbing, no edema Laboratory Tests 11/30/17 18:39: White Blood Count 9.2, Red Blood Count 3.43L, Hemoglobin 9.1L, Hematocrit 28.8L , Mean Corpuscular Volume 84, Mean Corpuscular Hemoglobin 26.4L, Mean Corpuscular Hemoglobin Concent 31.5L, Red Cell Distribution Width 16.6H, Platelet Count 233, Mean Platelet Volume 5.5L, Neutrophils (%) (Auto) 55.6, Lymphocytes (%) (Auto) 30.0, Monocytes (%) (Auto) 7.0, Eosinophils (%) (Auto) 6.4H, Basophils (%) (Auto) 1.0 Current Medications Medications (Trade) Dose Ordered Sig/Keira Route PRN Reason Start Time Stop Time Status Last Admin Dose Admin Acetaminophen (Tylenol) 650 mg Q4H PRN ORAL Mild Pain/Temp > 100.5 11/22/17 16:00 12/22/17 15:59 11/22/17 16:23 Albuterol/ Ipratropium (Albuterol/ Ipratropium) 3 ml Q4H PRN HHN Shortness of Breath 11/27/17 16:15 12/02/17 16:14 Albuterol/ Ipratropium (Albuterol/ Ipratropium) 3 ml Q6HRT HHN 11/27/17 19:00 12/02/17 18:59 12/01/17 00:56 Aspirin (Ecotrin) 81 mg DAILY ORAL 11/22/17 09:00 12/22/17 08:59 11/30/17 09:58 Carvedilol (Coreg) 6.25 mg Q12HR ORAL 11/23/17 21:00 12/23/17 20:59 11/30/17 21:10 Clopidogrel Bisulfate (Plavix) 75 mg DAILY GT 11/22/17 09:00 12/22/17 08:59 11/30/17 09:58 Colistimethate Sodium (Colistin *inhalation use only*) 150 mg Q12HR@10,22 INH 11/27/17 22:00 12/04/17 21:59 11/30/17 22:27 Dextrose (Dextrose 50%) 25 ml STAT PRN IV Hypoglycemia 11/24/17 11:15 12/24/17 11:14 Dextrose (Dextrose 50%) 50 ml STAT PRN IV Hypoglycemia 11/24/17 11:15 12/24/17 11:14 Docusate Sodium (Colace) 100 mg TID GT 11/23/17 13:00 12/23/17 12:59 11/30/17 18:08 Heparin Sodium (Porcine) (Heparin 5000 units/ml) 5,000 units EVERY 12 HOURS SUBQ 11/22/17 09:00 12/22/17 08:59 11/30/17 21:12 Hydralazine HCl (Apresoline) 10 mg Q4H PRN GT For High BP over 160 syst 11/23/17 12:30 12/22/17 08:44 12/01/17 01:42 Insulin Aspart (NovoLOG) Q6HR SUBQ 11/24/17 13:00 12/24/17 12:59 11/30/17 18:11 Minocycline HCl (Minocin) 100 mg Q12HR ORAL 11/28/17 21:00 12/05/17 20:59 11/30/17 21:09 Pantoprazole (Protonix) 40 mg EVERY 12 HOURS IVP 11/23/17 12:30 12/23/17 12:29 11/30/17 21:09 Quetiapine Fumarate (SEROquel) 12.5 mg Q4H PRN ORAL anxiety 11/29/17 00:15 12/29/17 00:14 Sagar Melvin MD Dec 01, 2017 08:24
[2017-12-01 09:16] LABS: BASOPHILS % (AUTO) 0.4 % (0.0-2.0); EOSINOPHILS % (AUTO) 5.9 % (0.0-3.0); HEMATOCRIT 31.3 % (42.0-52.0); HEMOGLOBIN 9.7 G/DL (14.2-18.0); LYMPHOCYTES % (AUTO) 31.7 % (20.0-45.0); MEAN CORPUSCULAR VOLUME 85 FL (80-99); MONOCYTES % (AUTO) 7.6 % (1.0-10.0); NEUTROPHILS % (AUTO) 54.3 % (45.0-75.0); PLATELET COUNT 251 K/UL (150-450); RED CELL DISTRIBUTION WIDTH 16.6 % (11.6-14.8); WHITE BLOOD COUNT 9.3 K/UL (4.8-10.8)
[2017-12-01] MEDS: Pantoprazole Inj IVP SCH (09:46)
[2017-12-01] MEDS: Minocycline HCl 50mg cap ORAL SCH (09:46)
[2017-12-01] MEDS: Carvedilol 6.25mg Tab ORAL SCH (09:47)
[2017-12-01] MEDS: Docusate 100mg/10ml Liq GT SCH ×2 (09:47→13:00)
[2017-12-01] MEDS: Aspirin EC 81mg tab ORAL SCH (09:47)
[2017-12-01] MEDS: Heparin 5000 units/ml inj SUBQ SCH (09:48)
[2017-12-01 09:53] LABS: ANION GAP 4 mmol/L (5-15); BLOOD UREA NITROGEN 76 mg/dL (7-18); CALCIUM 9.9 MG/DL (8.5-10.1); CARBON DIOXIDE 36 MMOL/L (21-32); CHLORIDE 109 MMOL/L (98-107); CREATININE 2.7 MG/DL (0.55-1.30); POTASSIUM 3.5 MMOL/L (3.5-5.1); SODIUM 149 MMOL/L (136-145)
[2017-12-01] MEDS: Colistin for inhalation INH SCH (11:56)
--- NOTE | 2017-12-01 12:38 | Nephrology Progress Note ---
Assessment/Plan Problem List: (1) CKD (chronic kidney disease) (2) ARF (acute renal failure) Assessment: better (3) Diabetes mellitus (4) HTN (hypertension) (5) Anemia Plan abxs follow labs diuresis ? Subjective Subjective In NAD Objective Objective Last 24 Hour Vital Signs Date Time Temp Pulse Resp B/P (MAP) Pulse Ox O2 Delivery O2 Flow Rate FiO2 12/01/17 12:15 62 20 99 Nasal Cannula 2.0 28 12/01/17 12:07 60 22 97 Nasal Cannula 2.0 28 12/01/17 12:07 60 22 97 Nasal Cannula 2.0 28 12/01/17 11:56 Nasal Cannula 2.0 28 12/01/17 11:56 64 22 92 Nasal Cannula 2.0 28 12/01/17 10:09 98.8 64 19 176/93 (120) 99 98.8 12/01/17 09:47 68 176/93 12/01/17 09:00 Nasal Cannula 4.0 12/01/17 08:20 98.8 64 19 176/93 (120) 99 98.8 12/01/17 08:00 40 12/01/17 08:00 64 12/01/17 04:59 82 26 99 Facial 40 12/01/17 04:00 40 12/01/17 04:00 97.6 64 19 159/90 (113) 100 97.6 12/01/17 04:00 64 12/01/17 02:51 71 20 99 Facial 40 12/01/17 01:42 182/95 12/01/17 01:07 72 20 98 Nasal Cannula 4.0 36 12/01/17 00:57 71 22 98 Facial 40 12/01/17 00:56 60 22 98 Bi-pap 40 12/01/17 00:00 40 12/01/17 00:00 97.8 64 19 180/95 (123) 100 97.8 12/01/17 00:00 59 11/30/17 22:30 65 21 98 Facial 40 11/30/17 22:28 65 22 96 Nasal Cannula 4.0 36 11/30/17 21:10 66 155/76 11/30/17 21:00 Nasal Cannula 4.0 11/30/17 20:00 4.0 11/30/17 20:00 65 11/30/17 20:00 98.0 66 19 155/76 (102) 97 98.0 11/30/17 18:59 65 20 98 Nasal Cannula 4.0 36 11/30/17 18:53 Nasal Cannula 4.0 36 11/30/17 18:51 71 20 96 Nasal Cannula 4.0 36 11/30/17 18:50 60 20 96 Nasal Cannula 4.0 36 11/30/17 16:01 97.9 74 19 146/84 (104) 97 97.9 11/30/17 16:00 70 11/30/17 16:00 4.0 11/30/17 13:24 70 20 100 Nasal Cannula 4.0 36 11/30/17 13:15 68 20 99 Nasal Cannula 4.0 36 Intake and Output 11/30/17 12/01/17 19:00 07:00 Intake Total 1030 ml 220 ml Output Total 700 ml 450 ml Balance 330 ml -230 ml Intake Oral 0 ml Free Water 160 ml IV Total 100 ml Tube Feeding 660 ml 220 ml Other 110 ml Output Urine Total 700 ml 450 ml # Bowel Movements 2 4 Laboratory Tests 11/30/17 18:39: White Blood Count 9.2, Red Blood Count 3.43L, Hemoglobin 9.1L, Hematocrit 28.8L , Mean Corpuscular Volume 84, Mean Corpuscular Hemoglobin 26.4L, Mean Corpuscular Hemoglobin Concent 31.5L, Red Cell Distribution Width 16.6H, Platelet Count 233, Mean Platelet Volume 5.5L, Neutrophils (%) (Auto) 55.6, Lymphocytes (%) (Auto) 30.0, Monocytes (%) (Auto) 7.0, Eosinophils (%) (Auto) 6.4H, Basophils (%) (Auto) 1.0 12/01/17 09:00: White Blood Count 9.3, Red Blood Count 3.70L, Hemoglobin 9.7L, Hematocrit 31.3L , Mean Corpuscular Volume 85, Mean Corpuscular Hemoglobin 26.3L, Mean Corpuscular Hemoglobin Concent 31.1L, Red Cell Distribution Width 16.6H, Platelet Count 251, Mean Platelet Volume 5.5L, Neutrophils (%) (Auto) 54.3, Lymphocytes (%) (Auto) 31.7, Monocytes (%) (Auto) 7.6, Eosinophils (%) (Auto) 5.9H, Basophils (%) (Auto) 0.4, Sodium Level 149H, Potassium Level 3.5, Chloride Level 109H, Carbon Dioxide Level 36H, Anion Gap 4L, Blood Urea Nitrogen 76H, Creatinine 2.7H, Estimat Glomerular Filtration Rate , Glucose Level 104, Calcium Level 9.9 Height (Feet): 6 Height (Inches): 0.00 Weight (Pounds): 189 Cardiovascular: normal rate Respiratory/Chest: rhonchi - bilaterally Extremities: moderate edema Gordo Murray MD Dec 01, 2017 12:38
--- NOTE | 2017-12-01 15:32 | Infectious Diseases Prog Note ---
Assessment/Plan Assessment/Plan A 1. pneumonia 2. leucocytosis resolved 3. renal failure 4. diabetes mellitus 5. hypertension P 1. continue Minocycline until 12/05 2. agree with discharge to SNF Subjective ROS Limited/Unobtainable: Yes Allergies: Coded Allergies: No Known Allergies (Verified , 01/02/09) Objective Vital Signs Last 24 Hour Vital Signs Date Time Temp Pulse Resp B/P (MAP) Pulse Ox O2 Delivery O2 Flow Rate FiO2 12/01/17 12:15 62 20 99 Nasal Cannula 2.0 28 12/01/17 12:15 97.8 71 18 144/81 (102) 98 97.8 12/01/17 12:07 60 22 97 Nasal Cannula 2.0 28 12/01/17 12:07 60 22 97 Nasal Cannula 2.0 28 12/01/17 12:00 40 12/01/17 11:56 Nasal Cannula 2.0 28 12/01/17 11:56 64 22 92 Nasal Cannula 2.0 28 12/01/17 10:30 97.8 71 18 144/81 (102) 98 97.8 12/01/17 10:09 98.8 64 19 176/93 (120) 99 98.8 12/01/17 09:47 68 176/93 12/01/17 09:00 Nasal Cannula 4.0 12/01/17 08:20 98.8 64 19 176/93 (120) 99 98.8 12/01/17 08:00 40 12/01/17 08:00 64 12/01/17 04:59 82 26 99 Facial 40 12/01/17 04:00 40 12/01/17 04:00 97.6 64 19 159/90 (113) 100 97.6 12/01/17 04:00 64 12/01/17 02:51 71 20 99 Facial 40 12/01/17 01:42 182/95 12/01/17 01:07 72 20 98 Nasal Cannula 4.0 36 12/01/17 00:57 71 22 98 Facial 40 12/01/17 00:56 60 22 98 Bi-pap 40 12/01/17 00:00 40 12/01/17 00:00 97.8 64 19 180/95 (123) 100 97.8 12/01/17 00:00 59 11/30/17 22:30 65 21 98 Facial 40 11/30/17 22:28 65 22 96 Nasal Cannula 4.0 36 11/30/17 21:10 66 155/76 11/30/17 21:00 Nasal Cannula 4.0 11/30/17 20:00 4.0 11/30/17 20:00 65 11/30/17 20:00 98.0 66 19 155/76 (102) 97 98.0 11/30/17 18:59 65 20 98 Nasal Cannula 4.0 36 11/30/17 18:53 Nasal Cannula 4.0 36 11/30/17 18:51 71 20 96 Nasal Cannula 4.0 36 11/30/17 18:50 60 20 96 Nasal Cannula 4.0 36 11/30/17 16:01 97.9 74 19 146/84 (104) 97 97.9 11/30/17 16:00 70 11/30/17 16:00 4.0 Height (Feet): 6 Height (Inches): 0.00 Weight (Pounds): 189 General Appearance: no acute distress HEENT: mucous membranes moist Respiratory/Chest: lungs clear, other - oxygen by nasal cannula Cardiovascular: normal rate Abdomen: soft, non tender, other - GT feeding Neurologic/Psychiatric: aphasia Laboratory Tests Test 11/30/17 18:39 12/01/17 09:00 White Blood Count 9.2 K/UL (4.8-10.8) 9.3 K/UL (4.8-10.8) Red Blood Count 3.43 M/UL (4.70-6.10) L 3.70 M/UL (4.70-6.10) L Hemoglobin 9.1 G/DL (14.2-18.0) L 9.7 G/DL (14.2-18.0) L Hematocrit 28.8 % (42.0-52.0) L 31.3 % (42.0-52.0) L Mean Corpuscular Volume 84 FL (80-99) 85 FL (80-99) Mean Corpuscular Hemoglobin 26.4 PG (27.0-31.0) L 26.3 PG (27.0-31.0) L Mean Corpuscular Hemoglobin Concent 31.5 G/DL (32.0-36.0) L 31.1 G/DL (32.0-36.0) L Red Cell Distribution Width 16.6 % (11.6-14.8) H 16.6 % (11.6-14.8) H Platelet Count 233 K/UL (150-450) 251 K/UL (150-450) Mean Platelet Volume 5.5 FL (6.5-10.1) L 5.5 FL (6.5-10.1) L Neutrophils (%) (Auto) 55.6 % (45.0-75.0) 54.3 % (45.0-75.0) Lymphocytes (%) (Auto) 30.0 % (20.0-45.0) 31.7 % (20.0-45.0) Monocytes (%) (Auto) 7.0 % (1.0-10.0) 7.6 % (1.0-10.0) Eosinophils (%) (Auto) 6.4 % (0.0-3.0) H 5.9 % (0.0-3.0) H Basophils (%) (Auto) 1.0 % (0.0-2.0) 0.4 % (0.0-2.0) Sodium Level 149 MMOL/L (136-145) H Potassium Level 3.5 MMOL/L (3.5-5.1) Chloride Level 109 MMOL/L (98-107) H Carbon Dioxide Level 36 MMOL/L (21-32) H Anion Gap 4 mmol/L (5-15) L Blood Urea Nitrogen 76 mg/dL (7-18) H Creatinine 2.7 MG/DL (0.55-1.30) H Estimat Glomerular Filtration Rate mL/min (>60) Glucose Level 104 MG/DL (74-106) Calcium Level 9.9 MG/DL (8.5-10.1) Current Medications Medications (Trade) Dose Ordered Sig/Keira Route PRN Reason Start Time Stop Time Status Last Admin Dose Admin Acetaminophen (Tylenol) 650 mg Q4H PRN ORAL Mild Pain/Temp > 100.5 11/22/17 16:00 12/22/17 15:59 11/22/17 16:23 Albuterol/ Ipratropium (Albuterol/ Ipratropium) 3 ml Q4H PRN HHN Shortness of Breath 11/27/17 16:15 12/02/17 16:14 Albuterol/ Ipratropium (Albuterol/ Ipratropium) 3 ml Q6HRT HHN 11/27/17 19:00 12/02/17 18:59 12/01/17 11:56 Aspirin (Ecotrin) 81 mg DAILY ORAL 11/22/17 09:00 12/22/17 08:59 12/01/17 09:47 Carvedilol (Coreg) 6.25 mg Q12HR ORAL 11/23/17 21:00 12/23/17 20:59 12/01/17 09:47 Clopidogrel Bisulfate (Plavix) 75 mg DAILY GT 11/22/17 09:00 12/22/17 08:59 12/01/17 09:46 Colistimethate Sodium (Colistin *inhalation use only*) 150 mg Q12HR@10,22 INH 11/27/17 22:00 12/04/17 21:59 12/01/17 11:56 Dextrose (Dextrose 50%) 25 ml STAT PRN IV Hypoglycemia 11/24/17 11:15 12/24/17 11:14 Dextrose (Dextrose 50%) 50 ml STAT PRN IV Hypoglycemia 11/24/17 11:15 12/24/17 11:14 Docusate Sodium (Colace) 100 mg TID GT 11/23/17 13:00 12/23/17 12:59 12/01/17 09:47 Heparin Sodium (Porcine) (Heparin 5000 units/ml) 5,000 units EVERY 12 HOURS SUBQ 11/22/17 09:00 12/22/17 08:59 12/01/17 09:48 Hydralazine HCl (Apresoline) 10 mg Q4H PRN GT For High BP over 160 syst 11/23/17 12:30 12/22/17 08:44 12/01/17 01:42 Insulin Aspart (NovoLOG) Q6HR SUBQ 11/24/17 13:00 12/24/17 12:59 11/30/17 18:11 Minocycline HCl (Minocin) 100 mg Q12HR ORAL 11/28/17 21:00 12/05/17 20:59 12/01/17 09:46 Pantoprazole (Protonix) 40 mg EVERY 12 HOURS IVP 11/23/17 12:30 12/23/17 12:29 12/01/17 09:46 Quetiapine Fumarate (SEROquel) 12.5 mg Q4H PRN ORAL anxiety 11/29/17 00:15 12/29/17 00:14 Donnell Murray MD Dec 01, 2017 15:32
--- NOTE | 2017-12-01 15:38 | General Progress Note ---
Assessment/Plan Assessment/Plan encephalopathy agitation seroquel prn Subjective Date patient seen: Dec 01, 2017 Allergies: Coded Allergies: No Known Allergies (Verified , 01/02/09) Subjective the pt is confused and nonverbal Objective Last 24 Hour Vital Signs Date Time Temp Pulse Resp B/P (MAP) Pulse Ox O2 Delivery O2 Flow Rate FiO2 12/01/17 12:15 62 20 99 Nasal Cannula 2.0 28 12/01/17 12:15 97.8 71 18 144/81 (102) 98 97.8 12/01/17 12:07 60 22 97 Nasal Cannula 2.0 28 12/01/17 12:07 60 22 97 Nasal Cannula 2.0 28 12/01/17 12:00 40 12/01/17 11:56 Nasal Cannula 2.0 28 12/01/17 11:56 64 22 92 Nasal Cannula 2.0 28 12/01/17 10:30 97.8 71 18 144/81 (102) 98 97.8 12/01/17 10:09 98.8 64 19 176/93 (120) 99 98.8 12/01/17 09:47 68 176/93 12/01/17 09:00 Nasal Cannula 4.0 12/01/17 08:20 98.8 64 19 176/93 (120) 99 98.8 12/01/17 08:00 40 12/01/17 08:00 64 12/01/17 04:59 82 26 99 Facial 40 12/01/17 04:00 40 12/01/17 04:00 97.6 64 19 159/90 (113) 100 97.6 12/01/17 04:00 64 12/01/17 02:51 71 20 99 Facial 40 12/01/17 01:42 182/95 12/01/17 01:07 72 20 98 Nasal Cannula 4.0 36 12/01/17 00:57 71 22 98 Facial 40 12/01/17 00:56 60 22 98 Bi-pap 40 12/01/17 00:00 40 12/01/17 00:00 97.8 64 19 180/95 (123) 100 97.8 12/01/17 00:00 59 11/30/17 22:30 65 21 98 Facial 40 11/30/17 22:28 65 22 96 Nasal Cannula 4.0 36 11/30/17 21:10 66 155/76 11/30/17 21:00 Nasal Cannula 4.0 11/30/17 20:00 4.0 11/30/17 20:00 65 11/30/17 20:00 98.0 66 19 155/76 (102) 97 98.0 11/30/17 18:59 65 20 98 Nasal Cannula 4.0 36 11/30/17 18:53 Nasal Cannula 4.0 36 11/30/17 18:51 71 20 96 Nasal Cannula 4.0 36 11/30/17 18:50 60 20 96 Nasal Cannula 4.0 36 11/30/17 16:01 97.9 74 19 146/84 (104) 97 97.9 11/30/17 16:00 70 11/30/17 16:00 4.0 Intake and Output 11/30/17 12/01/17 19:00 07:00 Intake Total 1030 ml 220 ml Output Total 700 ml 450 ml Balance 330 ml -230 ml Intake Oral 0 ml Free Water 160 ml IV Total 100 ml Tube Feeding 660 ml 220 ml Other 110 ml Output Urine Total 700 ml 450 ml # Bowel Movements 2 4 Laboratory Tests 11/30/17 18:39: White Blood Count 9.2, Red Blood Count 3.43L, Hemoglobin 9.1L, Hematocrit 28.8L , Mean Corpuscular Volume 84, Mean Corpuscular Hemoglobin 26.4L, Mean Corpuscular Hemoglobin Concent 31.5L, Red Cell Distribution Width 16.6H, Platelet Count 233, Mean Platelet Volume 5.5L, Neutrophils (%) (Auto) 55.6, Lymphocytes (%) (Auto) 30.0, Monocytes (%) (Auto) 7.0, Eosinophils (%) (Auto) 6.4H, Basophils (%) (Auto) 1.0 12/01/17 09:00: White Blood Count 9.3, Red Blood Count 3.70L, Hemoglobin 9.7L, Hematocrit 31.3L , Mean Corpuscular Volume 85, Mean Corpuscular Hemoglobin 26.3L, Mean Corpuscular Hemoglobin Concent 31.1L, Red Cell Distribution Width 16.6H, Platelet Count 251, Mean Platelet Volume 5.5L, Neutrophils (%) (Auto) 54.3, Lymphocytes (%) (Auto) 31.7, Monocytes (%) (Auto) 7.6, Eosinophils (%) (Auto) 5.9H, Basophils (%) (Auto) 0.4, Sodium Level 149H, Potassium Level 3.5, Chloride Level 109H, Carbon Dioxide Level 36H, Anion Gap 4L, Blood Urea Nitrogen 76H, Creatinine 2.7H, Estimat Glomerular Filtration Rate , Glucose Level 104, Calcium Level 9.9 Height (Feet): 6 Height (Inches): 0.00 Weight (Pounds): 189 General Appearance: no apparent distress, alert, confused Juventino Ochoa MD Dec 01, 2017 15:38
[2017-12-01] MEDS ORDERED: FUROSEMIDE80 M1 ORAL (15:55)
--- NOTE | 2017-12-03 09:00 | Discharge Summary ---
Discharge Summary Discharge Summary _ DATE OF ADMISSION: 11/21/2017 DATE OF DISCHARGE: 12/01/2017 REASON FOR ADMISSION: 87 years old male with past medical history significant for CVA with right hemiparesis, aphasia , dysphagia , status post G-tube, anemia of chronic disease , hypertension, diabetes, dementia, berd bound status, presented to emergency department for respiratory distress and shortness of breath. Patient recently was hospitalized at [facility] where he was admitted for acute hypoxemia and was on BiPAP. Patient with DNR/DNI status. Patient afebrile, but severe tachypnea. Patient was initially was placed on 100 % percent nonrebreathing mask. ABG on 100% nonrebreathing mask with O2 sat of 90%, hypercapnia, no acidosis Laboratory work uo revealed BUN 42, creatinine 2.2 , leukocytosis . Chest x-ray with probable pneumonia. Urinalysis with evidence of probable UTI. Lactic acid within normal limits. Sodium 147. Troponin elevated 0.103. pro BNP 7688. ECG with sinus rhythm, no acute ischemic changes. Patient admitted with diagnoses of SIRS, probably sepsis, pneumonia , chronic kidney disease, acute on chronic hypercapnic hypoxemic respiratory failure, recurrent pneumonia, recurrent UTI, recent history of bacteremia, acute encephalopathy, anemia of chronic disease, history of CVA with right- sided hemiplegia, dysphagia, status post G-tube,functional quadriplegia , bedbound status. CONSULTANTS: pulmonary Dr. Melvin ID specialist Dr. Barnes zipper lining folder Dr. Duarte psychiatrist [facility] COURSE: Patient admitted. Patient started on BiPAP. Tube feeding was on hold while patient was on BiPAP. Electrical Technology Instructor closely followed. The BiPAP settings titrated to keep pulse oximetry above 90%. Pulmonary toilet provided around the clock and as needed. Patient was suctioned as needed. Patient started on empiric antibiotic. Sputum culture revealed Acinetobacter MDR, urine and blood culture were negative. ID specialist closely followed. Antibiotic regimen optimized as per ID recommendations. Patient was able eventually to be weaned from the BiPAP . BiPAP was on standup as needed and at nighttime. Tube feeding started. Strict aspiration /reflux precautions were maintained. G-tube feeding tolerance was closely monitored. G-tube site care provided. Public Information Director closely followed. Renal parameters and volumes were closely monitored. Electrolytes were corrected as needed. Nephrotoxins were avoided. Renal ultrasound revealed increased bilateral kidneys echogenicity consistent with medical renal disease. No evidence of hydronephrosis. Clinical picture of acute kidney injury initially was likely consistent with acute tubular necrosis. DVT and GI prophylaxis provided. Echocardiogram revealed preserved ejection fraction of 60-65%. Venous duplex bilateral lower extremity was negative. Blood pressure was managed with beta coy and calcium channel coy,. Dual antiplatelet therapy along with statin was continued. Maintenance dose of Lasix was continued with close monitoring of volumes and renal parameters Elevated troponin was likely due to renal failure/troponin leak, no changes on ECG, stable ECHO. Patient was not a candidate for invasive procedures. Blood sugar was managed with sliding scale insulin. [id number], at goal. Bowel regimen instituted. Wound care for sacral decubitus, present on admission, provided as per wound care . Sacral decub did not appeared ibnfected. Supportive care provided. Psychiatrist seen and evaluated patient and diagnosed patient with encephalopathy , secondary to infection . Psychiatrist optimized psychiatric medication regimen.Hemoglobin and hematocrit were closely monitored with goal to keep hemoglobin above 7. Anemia workup was consistent with anemia of chronic disease Leukocytosis resolved .Patient afebrile. Pulse oximetry stable on oxygen 2 L via nasal cannula. Patient was stable for discharge back to [facility] facility for continuation of care. 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 Recent history of Dermobacter hominis bacteremia. Recurrent pneumonia, aspiration pneumonitis. DISCHARGE MEDICATIONS: See Medication Reconciliation list. DISCHARGE INSTRUCTIONS: Patient was discharged to [facility] facility. Follow up medical doctor at the facility. I have been assigned to dictate discharge summary for this account. I was not involved in the patient's management. Melia Rees NP Dec 03, 2017 09:00
== END 2017-12-01 17:15 | DRG 871 ==
LOC: EDBD 21:05 → EMR 21:52 → EDBEDREQ 23:04 → 2E 23:24 → EDBEDREQ 23:44 → 2E 11-22 21:36
DX: A41.9 Sepsis, unspecified organism (principal); J69.0 Pneumonitis due to inhalation of food and vomit; J96.22 Acute and chronic respiratory failure with hypercapnia; J96.21 Acute and chronic respiratory failure with hypoxia; N17.0 Acute kidney failure with tubular necrosis; G93.41 Metabolic encephalopathy; N39.0 Urinary tract infection, site not specified; I69.951 Hemiplegia and hemiparesis following unspecified cerebrovascular disease affecting right dominant side; K94.22 Gastrostomy infection; L03.311 Cellulitis of abdominal wall; I13.0 Hypertensive heart and chronic kidney disease with heart failure and stage 1 through stage 4 chronic kidney disease, or unspecified chronic kidney disease; N18.4 Chronic kidney disease, stage 4 (severe); I50.30 Unspecified diastolic (congestive) heart failure; N13.30 Unspecified hydronephrosis; E87.0 Hyperosmolality and hypernatremia; E87.6 Hypokalemia; I69.920 Aphasia following unspecified cerebrovascular disease; I69.991 Dysphagia following unspecified cerebrovascular disease; R13.10 Dysphagia, unspecified; D64.9 Anemia, unspecified; E11.22 Type 2 diabetes mellitus with diabetic chronic kidney disease; N40.1 Benign prostatic hyperplasia with lower urinary tract symptoms; R33.8 Other retention of urine; N31.9 Neuromuscular dysfunction of bladder, unspecified; Z66 Do not resuscitate; Z74.01 Bed confinement status; G40.909 Epilepsy, unspecified, not intractable, without status epilepticus; I25.10 Atherosclerotic heart disease of native coronary artery without angina pectoris; Z95.1 Presence of aortocoronary bypass graft; F03.90 Unspecified dementia, unspecified severity, without behavioral disturbance, psychotic disturbance, mood disturbance, and anxiety; F09 Unspecified mental disorder due to known physiological condition; Z87.01 Personal history of pneumonia (recurrent)
CPT/HCPCS: 36415; 36600; 71045; 76770; 80048; 80053; 80061; 81003; 82140; 82533; 82550; 82553; 82607; 82728; 82746; 82803; 82962; 82977; 83036; 83540; 83550; 83605; 83690; 83735; 83880; 84100; 84443; 84484; 84550; 85025; 85610; 85730; 86140; 87040; 87070; 87081; 87086; 87181; 87205; 93005; 93306; 93970; 94640; 94660; 94664; 94760; 99291; J1815; J7620; J8499

== ENCOUNTER 2017-12-05 14:44 | Inpatient (IN) | payer MEDICARE, MEDICAID ==
[~2017-12-05] VITALS: Ht 182.9 cm; Wt 83.9 kg
--- NOTE | 2017-12-05 14:38 | Emergency Room Report ---
History of Present Illness General Source: Patient Present Illness HPI Patient is an 87-year-old male brought in by EMS from [facility] for decreased oxygen saturation. Patient prior history of chronic the respiratory failure. Patient was noted to be full code. He had been having increased work of breathing. The patient started on supplemental oxygen. Patient prior history of sepsis from recurrent urinary tract infections. Allergies: Coded Allergies: No Known Allergies (Verified , 01/02/09) Patient History Reviewed Nursing Documentation: PMH: Agreed; PSxH: Agreed Review of Systems All Other Systems: limited - by mental status Physical Exam General Appearance: thin, Chronically Ill ENT: uvula midline, dry mucus membranes Neck: limited range of motion Respiratory: respiratory distress, rhonchi Cardiovascular #1: normal inspection, regular rate, rhythm, edema Gastrointestinal: normal inspection, normal bowel sounds, non tender Genitourinary: normal inspection Musculoskeletal: decreased range of motion Neurologic: other - aphasic, eyes open Psychiatric: depressed affect Skin: no rash Procedures Critical Care Time Critical Care Time Patient had a critical medical condition which untreated could potentially result in life or limb threatening injury. Total critical care time excluding procedures approximately 45 minutes. Medical Decision Making Diagnostic Impression: Primary Impression: Acute encephalopathy Additional Impressions: Feeding by G-tube Acute respiratory failure ER Course Patient presented for short of breath. Differential included but was not limited to anemia, pneumonia, pneumothorax, myocardial infarction, pericardial effusion, congestive heart failure, acidosis. Because of complexity of patient' s case laboratory testing and imaging studies were ordered. Per discussion with Dr. Brewster and patients daughter, patient is DNR. Patient was noted to have evidence of the bilateral pleural effusions as well as hypoventilatory lungs on x-ray imaging read by radiology. Patient was started on BiPAP.The patient was given initially IV fluids for hypotension.The patient was noted to have some history of heart failure was given IV Lasix. The patient was noted to have a slight elevation of his troponin however given the patient's recent bleeding history will not be given aspirin at this time.ABG showed evidence of the retaining CO2. Repeat ABG after oxygen was decreased showed improvement in the patient's CO2. Patient was discussed with Dr. Brewster for further management due to primary care physician Labs Test 12/05/17 15:00 12/05/17 15:50 White Blood Count 17.0 K/UL (4.8-10.8) Red Blood Count 3.82 M/UL (4.70-6.10) Hemoglobin 9.6 G/DL (14.2-18.0) Hematocrit 32.9 % (42.0-52.0) Mean Corpuscular Volume 86 FL (80-99) Mean Corpuscular Hemoglobin 25.2 PG (27.0-31.0) Mean Corpuscular Hemoglobin Concent 29.3 G/DL (32.0-36.0) Red Cell Distribution Width 17.6 % (11.6-14.8) Platelet Count 199 K/UL (150-450) Mean Platelet Volume 5.7 FL (6.5-10.1) Neutrophils (%) (Auto) 80.1 % (45.0-75.0) Lymphocytes (%) (Auto) 13.0 % (20.0-45.0) Monocytes (%) (Auto) 4.9 % (1.0-10.0) Eosinophils (%) (Auto) 1.4 % (0.0-3.0) Basophils (%) (Auto) 0.6 % (0.0-2.0) Urine Color Pale yellow Urine Appearance Slightly cloudy Urine pH 5 (4.5-8.0) Urine Specific [place] 1.015 (1.005-1.035) Urine Protein 3+ (NEGATIVE) Urine Glucose (UA) Negative (NEGATIVE) Urine Ketones Negative (NEGATIVE) Urine Occult Blood 5+ (NEGATIVE) Urine Nitrite Negative (NEGATIVE) Urine Bilirubin Negative (NEGATIVE) Urine Urobilinogen Normal MG/DL (0.0-1.0) Urine Leukocyte Esterase 1+ (NEGATIVE) Urine RBC 5-10 /HPF (0 - 0) Urine WBC 2-4 /HPF (0 - 0) Urine Squamous Epithelial Cells Few /LPF (NONE/OCC) Urine Bacteria Few /HPF (NONE) Sodium Level 158 MMOL/L (136-145) Potassium Level 3.5 MMOL/L (3.5-5.1) Chloride Level 118 MMOL/L (98-107) Carbon Dioxide Level 34 MMOL/L (21-32) Anion Gap 6 mmol/L (5-15) Blood Urea Nitrogen 71 mg/dL (7-18) Creatinine 2.5 MG/DL (0.55-1.30) Estimat Glomerular Filtration Rate mL/min (>60) Glucose Level 182 MG/DL (74-106) Lactic Acid Level 1.20 mmol/L (0.4-2.0) Calcium Level 9.8 MG/DL (8.5-10.1) Total Bilirubin 0.2 MG/DL (0.2-1.0) Aspartate Amino Transf (AST/SGOT) 29 U/L (15-37) Alanine Aminotransferase (ALT/SGPT) 16 U/L (12-78) Alkaline Phosphatase 97 U/L (46-116) Total Creatine Kinase 59 U/L (26-308) Creatine Kinase MB 4.1 NG/ML (0.0-3.6) Creatine Kinase MB Relative Index 6.9 Troponin I 0.358 ng/mL (0.000-0.056) Pro-B-Type Natriuretic Peptide 17724 pg/mL (0-125) Total Protein 8.9 G/DL (6.4-8.2) Albumin 2.0 G/DL (3.4-5.0) Globulin 6.9 g/dL Albumin/Globulin Ratio 0.3 (1.0-2.7) Lipase 206 U/L (73-393) Arterial Blood pH 7.280 (7.350-7.450) Arterial Blood Partial Pressure CO2 74.6 mmHg (35.0-45.0) Arterial Blood Partial Pressure O2 246.3 mmHg (75.0-100.0) Arterial Blood HCO3 34.3 mmol/L (22.0-26.0) Arterial Blood Oxygen Saturation 98.8 % (92.0-98.0) Arterial Blood Base Excess 6.1 Librado Test Positive EKG Diagnostic Results Rate: normal Rhythm: NSR ST Segments: no acute changes Status: unchanged Disposition: ADMITTED INPATIENT Condition: Serious Nasir Pool MD Dec 05, 2017 14:38
[~2017-12-05 14:44] MED LIST changes: +FUROSEMIDE40 MG GT; +FUROSEMIDE80 M1 ORAL; +NEPRO CARB STE237 ML PO; +TRAMADOL HCL50 MG GT
[2017-12-05 14:47] VITALS: BP 144/81
[2017-12-05 15:35] LABS: APPEARANCE,URINE SLIGHTLY CLOUDY; BILIRUBIN, URINE NEGATIVE (NEGATIVE); COLOR,URINE PALE YELLOW; GLUCOSE, URINE (UA) NEGATIVE (NEGATIVE); KETONES,URINE NEGATIVE (NEGATIVE); LEUKOCYTE ESTERASE ,URINE 1+ (NEGATIVE); NITRITE,URINE NEGATIVE (NEGATIVE); PH,URINE 5 (4.5-8.0); PROTEIN,URINE 3+ (NEGATIVE); UROBILINOGEN,URINE NORMAL MG/DL (0.0-1.0)
[2017-12-05 15:41] LABS: BASOPHILS % (AUTO) 0.6 % (0.0-2.0); EOSINOPHILS % (AUTO) 1.4 % (0.0-3.0); HEMATOCRIT 32.9 % (42.0-52.0); HEMOGLOBIN 9.6 G/DL (14.2-18.0); MEAN CORPUSCULAR VOLUME 86 FL (80-99); MONOCYTES % (AUTO) 4.9 % (1.0-10.0); NEUTROPHILS % (AUTO) 80.1 % (45.0-75.0); PLATELET COUNT 199 K/UL (150-450); RED BLOOD COUNT 3.82 M/UL (4.70-6.10); RED CELL DISTRIBUTION WIDTH 17.6 % (11.6-14.8)
[2017-12-05 15:51] LABS: ANION GAP 6 mmol/L (5-15); BLOOD UREA NITROGEN 71 mg/dL (7-18); CALCIUM 9.8 MG/DL (8.5-10.1); CARBON DIOXIDE 34 MMOL/L (21-32); CHLORIDE 118 MMOL/L (98-107); CREATININE 2.5 MG/DL (0.55-1.30); POTASSIUM 3.5 MMOL/L (3.5-5.1); SODIUM 158 MMOL/L (136-145)
[2017-12-05] MEDS ORDERED: Pantoprazole Inj IVP ONE (16:00)
[2017-12-05 16:05] LABS: ALANINE AMINOTRANSFERASE 16 U/L (12-78); ALBUMIN/GLOBULIN RATIO 0.3 (1.0-2.7); ALKALINE PHOSPHATASE 97 U/L (46-116); ASPARTATE AMINO TRANSFERASE 29 U/L (15-37); BILIRUBIN,TOTAL 0.2 MG/DL (0.2-1.0); CKMB 4.1 NG/ML (0.0-3.6); CREATINE KINASE 59 U/L (26-308)
--- NOTE | 2017-12-05 16:27 | Diagnostic Imaging Report ---
Indication: Shortness of breath Technique: One view of the chest Comparison: 11/26/2017 Findings: Less optimal inspiration currently. Previously demonstrated interstitial and airspace infiltrates versus edema appears somewhat improved but persist. There is persistent and probably not significantly changed bilateral pleural fluid. There is bilateral basilar atelectasis. The heart remains enlarged. There is evidence of prior median sternotomy and valve repair Impression: Bilateral interstitial and airspace edema, persistent but considerably improved from 11/26/2017 Suboptimal inspiration Small bilateral pleural effusions, probably unchanged
[2017-12-05] MEDS ORDERED: Vancomycin 1 GM in D5W 275 ML IVPB SCH (16:30)
[2017-12-05 16:44] VITALS: BP 150/90
[2017-12-05 17:30] VITALS: BP 187/92
[2017-12-05] MEDS ORDERED: ASPIRIN81 MG GT (17:51)
[2017-12-05] MEDS ORDERED: ATORVASTATIN CA80 MG ORAL (17:51)
[2017-12-05] MEDS ORDERED: FUROSEMIDE40 MG GT (17:51)
[2017-12-05] MEDS ORDERED: AMLODIPINE BESYL5 MG GT (17:51)
[2017-12-05] MEDS ORDERED: Cefepime HCl 1 GM in D5W 55 ML IVPB ONE (18:00)
[2017-12-05 18:05] VITALS: BP 192/101
[2017-12-05 18:40] VITALS: BP 181/93
[2017-12-05 20:00] VITALS: BP 151/85
[2017-12-05] MEDS ORDERED: Cefepime HCl 1 GM in D5W 55 ML IVPB SCH (21:00)
[2017-12-05] MEDS ORDERED: Atorvastatin 80mg tab ORAL SCH (21:00)
[2017-12-05] MEDS ORDERED: HydrALAZINE 10mg Tab ORAL PRN (21:15)
[2017-12-05] MEDS ORDERED: metroNIDAZOLE 500mg tab ORAL SCH (22:00)
[2017-12-05] MEDS: Meropenem 500 MG in NS 55 ML IVPB SCH (23:07)
[2017-12-05] MEDS: Heparin 5000 units/ml inj SUBQ SCH (23:08)
--- NOTE | 2017-12-05 23:55 | Pulmonology Progress Note ---
Assessment/Plan Assessment/Plan HPI Patient is an 87-year-old male brought in by EMS from [facility] for decreased oxygen saturation. Patient prior history of chronic the respiratory failure. Patient was noted to be full code. He had been having increased work of breathing. The patient started on supplemental oxygen. Patient prior history of sepsis from recurrent urinary tract infections. Allergies: Coded Allergies: No Known Allergies (Verified , 01/02/09) Patient History Reviewed Nursing Documentation: PMH: Agreed; PSxH: Agreed Review of Systems All Other Systems: limited - by mental status Physical Exam General Appearance: thin, Chronically Ill ENT: uvula midline, dry mucus membranes Neck: limited range of motion Respiratory: respiratory distress, rhonchi Cardiovascular #1: normal inspection, regular rate, rhythm, edema Gastrointestinal: normal inspection, normal bowel sounds, non tender Genitourinary: normal inspection Musculoskeletal: decreased range of motion Neurologic: other - aphasic, eyes open Psychiatric: depressed affect Skin: no rash Procedures Critical Care Time Critical Care Time Patient had a critical medical condition which untreated could potentially result in life or limb threatening injury. Total critical care time excluding procedures approximately 45 minutes. Medical Decision Making Diagnostic Impression: Primary Impression: Acute encephalopathy Additional Impressions: Feeding by G-tube Acute respiratory failure ER Course Patient presented for short of breath. Differential included but was not limited to anemia, pneumonia, pneumothorax, myocardial infarction, pericardial effusion, congestive heart failure, acidosis. Because of complexity of patient' s case laboratory testing and imaging studies were ordered. Per discussion with Dr. Brewster and patients daughter, patient is DNR. Patient was noted to have evidence of the bilateral pleural effusions as well as hypoventilatory lungs on x-ray imaging read by radiology. Patient was started on BiPAP.The patient was given initially IV fluids for hypotension.The patient was noted to have some history of heart failure was given IV Lasix. The patient was noted to have a slight elevation of his troponin however given the patient's recent bleeding history will not be given aspirin at this time.ABG showed evidence of the retaining CO2. Repeat ABG after oxygen was decreased showed improvement in the patient's CO2. Patient was discussed with Dr. Brewster for further management due to primary care physician Labs Test 12/05/17 15:00 12/05/17 15:50 White Blood Count 17.0 K/UL (4.8-10.8) Red Blood Count 3.82 M/UL (4.70-6.10) Hemoglobin 9.6 G/DL (14.2-18.0) Hematocrit 32.9 % (42.0-52.0) Mean Corpuscular Volume 86 FL (80-99) Mean Corpuscular Hemoglobin 25.2 PG (27.0-31.0) Mean Corpuscular Hemoglobin Concent 29.3 G/DL (32.0-36.0) Red Cell Distribution Width 17.6 % (11.6-14.8) Platelet Count 199 K/UL (150-450) Mean Platelet Volume 5.7 FL (6.5-10.1) Neutrophils (%) (Auto) 80.1 % (45.0-75.0) Lymphocytes (%) (Auto) 13.0 % (20.0-45.0) Monocytes (%) (Auto) 4.9 % (1.0-10.0) Eosinophils (%) (Auto) 1.4 % (0.0-3.0) Basophils (%) (Auto) 0.6 % (0.0-2.0) Urine Color Pale yellow Urine Appearance Slightly cloudy Urine pH 5 (4.5-8.0) Urine Specific [place] 1.015 (1.005-1.035) Urine Protein 3+ (NEGATIVE) Urine Glucose (UA) Negative (NEGATIVE) Urine Ketones Negative (NEGATIVE) Urine Occult Blood 5+ (NEGATIVE) Urine Nitrite Negative (NEGATIVE) Urine Bilirubin Negative (NEGATIVE) Urine Urobilinogen Normal MG/DL (0.0-1.0) Urine Leukocyte Esterase 1+ (NEGATIVE) Urine RBC 5-10 /HPF (0 - 0) Urine WBC 2-4 /HPF (0 - 0) Urine Squamous Epithelial Cells Few /LPF (NONE/OCC) Urine Bacteria Few /HPF (NONE) Sodium Level 158 MMOL/L (136-145) Potassium Level 3.5 MMOL/L (3.5-5.1) Chloride Level 118 MMOL/L (98-107) Carbon Dioxide Level 34 MMOL/L (21-32) Anion Gap 6 mmol/L (5-15) Blood Urea Nitrogen 71 mg/dL (7-18) Creatinine 2.5 MG/DL (0.55-1.30) Estimat Glomerular Filtration Rate mL/min (>60) Glucose Level 182 MG/DL (74-106) Lactic Acid Level 1.20 mmol/L (0.4-2.0) Calcium Level 9.8 MG/DL (8.5-10.1) Total Bilirubin 0.2 MG/DL (0.2-1.0) Aspartate Amino Transf (AST/SGOT) 29 U/L (15-37) Alanine Aminotransferase (ALT/SGPT) 16 U/L (12-78) Alkaline Phosphatase 97 U/L (46-116) Total Creatine Kinase 59 U/L (26-308) Creatine Kinase MB 4.1 NG/ML (0.0-3.6) Creatine Kinase MB Relative Index 6.9 Troponin I 0.358 ng/mL (0.000-0.056) Pro-B-Type Natriuretic Peptide 88043 pg/mL (0-125) Total Protein 8.9 G/DL (6.4-8.2) Albumin 2.0 G/DL (3.4-5.0) Globulin 6.9 g/dL Albumin/Globulin Ratio 0.3 (1.0-2.7) Lipase 206 U/L (73-393) Arterial Blood pH 7.280 (7.350-7.450) Arterial Blood Partial Pressure CO2 74.6 mmHg (35.0-45.0) Arterial Blood Partial Pressure O2 246.3 mmHg (75.0-100.0) Arterial Blood HCO3 34.3 mmol/L (22.0-26.0) Arterial Blood Oxygen Saturation 98.8 % (92.0-98.0) Arterial Blood Base Excess 6.1 Librado Test Positive EKG Diagnostic Results Rate: normal Rhythm: NSR ST Segments: no acute changes AP Pneumonia Hypercapneiec respirtaory failure CKD Plan IV SAB BiPAP 15/7 O2 sats 90-94% Limited code Subjective ROS Limited/Unobtainable: Yes Constitutional: Reports: no symptoms HEENT: Repors: no symptoms Respiratory: Reports: no symptoms, productive cough, shortness of breath Allergies: Coded Allergies: No Known Allergies (Verified , 01/02/09) Objective Last 24 Hour Vital Signs Date Time Temp Pulse Resp B/P (MAP) Pulse Ox O2 Delivery O2 Flow Rate FiO2 12/05/17 22:54 76 37 100 Full Face 60 12/05/17 21:09 76 38 92 Full Face 60 12/05/17 20:00 82 12/05/17 18:45 81 40 181/93 95 Bi-pap 40 12/05/17 18:41 94 41 94 Full Face 60 12/05/17 18:40 81 40 181/93 98 Bi-pap 40 12/05/17 18:05 86 43 192/101 94 Bi-pap 40 12/05/17 17:48 50 12/05/17 17:30 82 43 187/92 86 Bi-pap 40 12/05/17 16:44 74 22 150/90 98 Bi-pap 40 12/05/17 16:43 76 33 92 Full Face 40 12/05/17 16:09 40 12/05/17 15:48 40 12/05/17 14:47 74 18 Bi-pap 15.0 100 12/05/17 14:47 78 37 144/81 100 Bi-pap 100 12/05/17 14:45 88 41 99 Full Face 100 12/05/17 14:37 74 18 144/93 100 Non-Rebreather 15.0 Laboratory Tests 12/05/17 15:00: White Blood Count 17.0H, Red Blood Count 3.82L, Hemoglobin 9.6L, Hematocrit 32.9L, Mean Corpuscular Volume 86, Mean Corpuscular Hemoglobin 25.2L, Mean Corpuscular Hemoglobin Concent 29.3L, Red Cell Distribution Width 17.6H, Platelet Count 199, Mean Platelet Volume 5.7L, Neutrophils (%) (Auto) 80.1H, Lymphocytes (%) (Auto) 13.0L, Monocytes (%) (Auto) 4.9, Eosinophils (%) (Auto) 1.4, Basophils (%) (Auto) 0.6, Urine Color Pale yellow, Urine Appearance Slightly cloudy, Urine pH 5, Urine Specific [place] 1.015, Urine Protein 3+H, Urine Glucose (UA) Negative, Urine Ketones Negative, Urine Occult Blood 5+H, Urine Nitrite Negative, Urine Bilirubin Negative, Urine Urobilinogen Normal, Urine Leukocyte Esterase 1+H, Urine RBC 5-10H, Urine WBC 2-4, Urine Squamous Epithelial Cells Few, Urine Bacteria Few, Sodium Level 158H, Potassium Level 3.5 , Chloride Level 118H, Carbon Dioxide Level 34H, Anion Gap 6, Blood Urea Nitrogen 71H, Creatinine 2.5H, Estimat Glomerular Filtration Rate , Glucose Level 182H, Lactic Acid Level 1.20, Calcium Level 9.8, Total Bilirubin 0.2, Aspartate Amino Transf (AST/SGOT) 29, Alanine Aminotransferase (ALT/SGPT) 16, Alkaline Phosphatase 97, Total Creatine Kinase 59, Creatine Kinase MB 4.1H, Creatine Kinase MB Relative Index 6.9, Troponin I 0.358H, Pro-B-Type Natriuretic Peptide 29947L, Total Protein 8.9H, Albumin 2.0L, Globulin 6.9, Albumin/Globulin Ratio 0.3L, Lipase 206 12/05/17 15:50: Arterial Blood pH 7.280L, Arterial Blood Partial Pressure CO2 74.6*H, Arterial Blood Partial Pressure O2 246.3H, Arterial Blood HCO3 34.3H, Arterial Blood Oxygen Saturation 98.8H, Arterial Blood Base Excess 6.1, Librado Test Positive 12/05/17 16:11: Arterial Blood pH 7.290L, Arterial Blood Partial Pressure CO2 66.2*H, Arterial Blood Partial Pressure O2 95.8, Arterial Blood HCO3 31.3H, Arterial Blood Oxygen Saturation 96.5, Arterial Blood Base Excess 3.6, Librado Test Positive Current Medications Medications (Trade) Dose Ordered Sig/Keira Route PRN Reason Start Time Stop Time Status Last Admin Dose Admin Acetaminophen (Tylenol) 650 mg Q6H PRN ORAL Mild Pain/Temp > 101 12/05/17 20:15 01/04/18 20:14 Albuterol/ Ipratropium (Albuterol/ Ipratropium) 3 ml Q4HRT HHN 12/05/17 23:00 12/10/17 22:59 Amlodipine Besylate (Norvasc) 5 mg BID GT 12/06/17 09:00 01/05/18 08:59 Aspirin (ASA) 81 mg DAILY NG 12/06/17 09:00 01/05/18 08:59 Atorvastatin Calcium (Lipitor) 80 mg BEDTIME ORAL 12/05/17 21:00 01/04/18 20:59 12/05/17 23:07 Bisacodyl (Dulcolax) 10 mg DAILYPRN PRN RECTAL Constipation 12/05/17 21:15 01/04/18 21:14 Carvedilol (Coreg) 12.5 mg BID ORAL 12/06/17 09:00 01/05/18 08:59 Clopidogrel Bisulfate (Plavix) 75 mg DAILY NG 12/06/17 09:00 01/05/18 08:59 Colistimethate Sodium (Colistin *inhalation use only*) 75 mg Q12HR@10,22 INH 12/05/17 22:00 12/12/17 21:59 Docusate Sodium (Colace) 100 mg DAILY ORAL 12/06/17 09:00 01/05/18 08:59 Heparin Sodium (Porcine) (Heparin 5000 units/ml) 5,000 units EVERY 12 HOURS SUBQ 12/05/17 21:00 01/04/18 20:59 12/05/17 23:08 Hydralazine HCl (Apresoline) 10 mg Q6HR PRN ORAL systolic >160 12/05/17 21:15 01/04/18 21:14 Meropenem 500 mg/ Sodium Chloride 55 ml @ 110 mls/hr EVERY 12 HOURS IVPB 12/05/17 21:00 12/10/17 20:59 12/05/17 23:07 Ondansetron HCl (Zofran) 4 mg Q4HR PRN IVP Nausea & Vomiting 12/05/17 20:15 01/04/18 20:14 Vancomycin HCl 1 gm/Dextrose 275 ml @ 183.708 mls/hr Q24H IVPB 12/05/17 16:30 12/10/17 16:29 12/05/17 16:48 Zinc Sulfate (Zinc Sulfate) 220 mg DAILY NG 12/06/17 09:00 01/05/18 08:59 Riki Mello MD Dec 05, 2017 23:55
[2017-12-06] VITALS (7 sets, daily range): BP systolic 123–151; BP diastolic 76–89
[2017-12-06] MEDS: Colistin for inhalation INH SCH ×3 (02:09→23:24)
[2017-12-06] MEDS: Albuterol/Ipratropium 3ml neb HHN SCH ×7 (02:10→23:22)
[2017-12-06] MEDS ORDERED: APRESOLINE10 MG ORAL (04:23)
[2017-12-06 05:35] LABS: BASOPHILS % (AUTO) 0.3 % (0.0-2.0); EOSINOPHILS % (AUTO) 3.3 % (0.0-3.0); HEMATOCRIT 28.5 % (42.0-52.0); HEMOGLOBIN 8.7 G/DL (14.2-18.0); LYMPHOCYTES % (AUTO) 18.7 % (20.0-45.0); MEAN CORPUSCULAR VOLUME 86 FL (80-99); MONOCYTES % (AUTO) 4.6 % (1.0-10.0); NEUTROPHILS % (AUTO) 73.1 % (45.0-75.0); PLATELET COUNT 308 K/UL (150-450); RED BLOOD COUNT 3.31 M/UL (4.70-6.10); RED CELL DISTRIBUTION WIDTH 17.4 % (11.6-14.8); WHITE BLOOD COUNT 17.7 K/UL (4.8-10.8)
[2017-12-06 06:15] LABS: ALANINE AMINOTRANSFERASE 15 U/L (12-78); ALBUMIN/GLOBULIN RATIO 0.3 (1.0-2.7); ALKALINE PHOSPHATASE 79 U/L (46-116); ANION GAP 7 mmol/L (5-15); ASPARTATE AMINO TRANSFERASE 31 U/L (15-37); BILIRUBIN,TOTAL 0.3 MG/DL (0.2-1.0); BLOOD UREA NITROGEN 67 mg/dL (7-18); CALCIUM 9.6 MG/DL (8.5-10.1); CARBON DIOXIDE 33 MMOL/L (21-32); CHLORIDE 119 MMOL/L (98-107); CREATININE 2.6 MG/DL (0.55-1.30); PHOSPHORUS 3.4 MG/DL (2.5-4.9); POTASSIUM 3.2 MMOL/L (3.5-5.1); SODIUM 159 MMOL/L (136-145)
[2017-12-06] MEDS ORDERED: Docusate 100mg cap ORAL SCH ×2 (09:00→13:00)
[2017-12-06] MEDS: Zinc Sulfate 220mg cap NG SCH (09:22)
[2017-12-06] MEDS: Meropenem 500 MG in NS 55 ML IVPB SCH ×2 (09:22→20:00)
[2017-12-06] MEDS: Aspirin Baby 81mg NG SCH (09:22)
[2017-12-06] MEDS: Carvedilol 12.5mg tab ORAL SCH ×2 (09:24→17:46)
[2017-12-06] MEDS: Heparin 5000 units/ml inj SUBQ SCH ×2 (09:25→20:04)
[2017-12-06] MEDS: NovoLOG Insulin Flexpen SUBQ SCH ×2 (11:55→17:56)
[2017-12-06] MEDS ORDERED: NovoLOG Insulin Flexpen SUBQ SCH (12:00)
--- NOTE | 2017-12-06 12:25 | Consultation ---
Consult Note Consult Note asked to eval for Renal failure Know to me from previous admissions Patient is an 87-year-old male brought in by EMS from [facility] for decreased oxygen saturation. Patient prior history of chronic the respiratory failure. Patient was noted to be full code. He had been having increased work of breathing. The patient started on supplemental oxygen. Patient prior history of sepsis from recurrent urinary tract infections. patient examined- discussed with - labs reviewed . Assessment/Plan (1) Acute respiratory failure, Pneumonia and UTI (2) ATN (acute tubular necrosis), with underlying CKD (3) Anemia (4) UTI (urinary tract infection) (5) DNR (do not resuscitate) (6) Acute Encephalopathy, s/p Multiple strokes (7) PEG (8) HyperGlycemia Plan: Pulm support Hydrate as possible - BS control avoid nephrotoxics Monitor renal parameters Hemodynamic support urine studies Per orders Mukul Duarte MD Dec 06, 2017 12:25
[2017-12-06] MEDS: Docusate 100mg/10ml Liq GT SCH ×2 (13:10→17:46)
[2017-12-06] MEDS: Nitroglycerin Patch 0.4mg TDERMAL SCH (13:11)
--- NOTE | 2017-12-06 13:16 | Cardiology Progress Note ---
Subjective Subjective [id number] Objective Last 24 Hour Vital Signs Date Time Temp Pulse Resp B/P (MAP) Pulse Ox O2 Delivery O2 Flow Rate FiO2 12/06/17 12:37 62 35 100 Facial 40 12/06/17 11:20 60 35 96 Bi-pap 40 12/06/17 11:14 60 35 95 Facial 40 12/06/17 11:13 59 35 92 Bi-pap 40 12/06/17 09:42 66 35 99 Bi-pap 35 12/06/17 09:34 67 35 100 Bi-pap 35 12/06/17 09:28 68 35 100 Facial 40 12/06/17 09:24 68 137/89 12/06/17 09:22 68 137/89 12/06/17 08:17 68 32 99 Bi-pap 40 12/06/17 08:10 68 35 94 Bi-pap 50 12/06/17 08:00 97.5 67 34 137/89 (105) 100 97.5 12/06/17 08:00 67 12/06/17 08:00 Bi-pap Bi-pap 12/06/17 08:00 40 12/06/17 06:30 70 35 95 Facial 50 12/06/17 04:40 73 36 99 Facial 50 12/06/17 04:05 40 12/06/17 04:03 Bi-pap Bi-pap 12/06/17 04:00 73 12/06/17 04:00 97.5 71 45 126/76 (93) 93 97.5 12/06/17 03:10 68 41 98 Bi-pap 50 12/06/17 03:00 74 34 97 Facial 50 12/06/17 03:00 74 34 97 Bi-pap 50 12/06/17 02:40 Bi-pap Bi-pap 12/06/17 02:10 Bi-pap 60 12/06/17 02:10 Bi-pap 60 12/06/17 02:09 Bi-pap 60 12/06/17 02:09 Bi-pap 60 12/06/17 01:09 82 40 99 Full Face 60 12/06/17 00:08 97.5 74 40 135/86 (102) 93 97.5 12/06/17 00:00 Bi-pap 12/06/17 00:00 72 12/06/17 00:00 40 12/05/17 22:54 76 37 100 Full Face 60 12/05/17 21:09 76 38 92 Full Face 60 12/05/17 20:00 82 12/05/17 20:00 97.3 75 30 151/85 (107) 98 97.3 12/05/17 20:00 40 12/05/17 18:45 81 40 181/93 95 Bi-pap 40 12/05/17 18:41 94 41 94 Full Face 60 12/05/17 18:41 94 41 Bi-pap 60 12/05/17 18:40 81 40 181/93 98 Bi-pap 40 12/05/17 18:05 86 43 192/101 94 Bi-pap 40 12/05/17 17:48 50 12/05/17 17:30 82 43 187/92 86 Bi-pap 40 12/05/17 16:44 74 22 150/90 98 Bi-pap 40 12/05/17 16:43 76 33 92 Full Face 40 12/05/17 16:09 40 12/05/17 15:48 40 12/05/17 14:47 74 18 Bi-pap 15.0 100 12/05/17 14:47 78 37 144/81 100 Bi-pap 100 12/05/17 14:45 88 41 99 Full Face 100 12/05/17 14:37 74 18 144/93 100 Non-Rebreather 15.0 Intake and Output 12/05/17 12/06/17 19:00 07:00 Intake Total 1300 ml Output Total 200 ml 1290 ml Balance 1100 ml -1290 ml Intake IV Total 1300 ml Output Urine Total 200 ml 1290 ml # Bowel Movements 3 Laboratory Tests Test 12/05/17 15:00 12/05/17 15:50 12/05/17 16:11 12/06/17 03:42 White Blood Count 17.0 K/UL (4.8-10.8) H 17.7 K/UL (4.8-10.8) H Red Blood Count 3.82 M/UL (4.70-6.10) L 3.31 M/UL (4.70-6.10) L Hemoglobin 9.6 G/DL (14.2-18.0) L 8.7 G/DL (14.2-18.0) L Hematocrit 32.9 % (42.0-52.0) L 28.5 % (42.0-52.0) L Mean Corpuscular Volume 86 FL (80-99) 86 FL (80-99) Mean Corpuscular Hemoglobin 25.2 PG (27.0-31.0) L 26.4 PG (27.0-31.0) L Mean Corpuscular Hemoglobin Concent 29.3 G/DL (32.0-36.0) L 30.6 G/DL (32.0-36.0) L Red Cell Distribution Width 17.6 % (11.6-14.8) H 17.4 % (11.6-14.8) H Platelet Count 199 K/UL (150-450) 308 K/UL (150-450) # Mean Platelet Volume 5.7 FL (6.5-10.1) L 5.6 FL (6.5-10.1) L Neutrophils (%) (Auto) 80.1 % (45.0-75.0) H 73.1 % (45.0-75.0) Lymphocytes (%) (Auto) 13.0 % (20.0-45.0) L 18.7 % (20.0-45.0) L Monocytes (%) (Auto) 4.9 % (1.0-10.0) 4.6 % (1.0-10.0) Eosinophils (%) (Auto) 1.4 % (0.0-3.0) 3.3 % (0.0-3.0) H Basophils (%) (Auto) 0.6 % (0.0-2.0) 0.3 % (0.0-2.0) Urine Color Pale yellow Urine Appearance Slightly cloudy Urine pH 5 (4.5-8.0) Urine Specific [place] 1.015 (1.005-1.035) Urine Protein 3+ (NEGATIVE) H Urine Glucose (UA) Negative (NEGATIVE) Urine Ketones Negative (NEGATIVE) Urine Occult Blood 5+ (NEGATIVE) H Urine Nitrite Negative (NEGATIVE) Urine Bilirubin Negative (NEGATIVE) Urine Urobilinogen Normal MG/DL (0.0-1.0) Urine Leukocyte Esterase 1+ (NEGATIVE) H Urine RBC 5-10 /HPF (0 - 0) H Urine WBC 2-4 /HPF (0 - 0) Urine Squamous Epithelial Cells Few /LPF (NONE/OCC) Urine Bacteria Few /HPF (NONE) Sodium Level 158 MMOL/L (136-145) H 159 MMOL/L (136-145) H Potassium Level 3.5 MMOL/L (3.5-5.1) 3.2 MMOL/L (3.5-5.1) L Chloride Level 118 MMOL/L (98-107) H 119 MMOL/L (98-107) H Carbon Dioxide Level 34 MMOL/L (21-32) H 33 MMOL/L (21-32) H Anion Gap 6 mmol/L (5-15) 7 mmol/L (5-15) Blood Urea Nitrogen 71 mg/dL (7-18) H 67 mg/dL (7-18) H Creatinine 2.5 MG/DL (0.55-1.30) H 2.6 MG/DL (0.55-1.30) H Estimat Glomerular Filtration Rate mL/min (>60) mL/min (>60) Glucose Level 182 MG/DL (74-106) H 88 MG/DL (74-106) Lactic Acid Level 1.20 mmol/L (0.4-2.0) Calcium Level 9.8 MG/DL (8.5-10.1) 9.6 MG/DL (8.5-10.1) Total Bilirubin 0.2 MG/DL (0.2-1.0) 0.3 MG/DL (0.2-1.0) Aspartate Amino Transf (AST/SGOT) 29 U/L (15-37) 31 U/L (15-37) Alanine Aminotransferase (ALT/SGPT) 16 U/L (12-78) 15 U/L (12-78) Alkaline Phosphatase 97 U/L (46-116) 79 U/L (46-116) Total Creatine Kinase 59 U/L (26-308) Creatine Kinase MB 4.1 NG/ML (0.0-3.6) H Creatine Kinase MB Relative Index 6.9 Troponin I 0.358 ng/mL (0.000-0.056) 0.309 ng/mL (0.000-0.056) Pro-B-Type Natriuretic Peptide 95610 pg/mL (0-125) H 48911 pg/mL (0-125) H Total Protein 8.9 G/DL (6.4-8.2) H 8.6 G/DL (6.4-8.2) H Albumin 2.0 G/DL (3.4-5.0) L 2.0 G/DL (3.4-5.0) L Globulin 6.9 g/dL 6.6 g/dL Albumin/Globulin Ratio 0.3 (1.0-2.7) L 0.3 (1.0-2.7) L Lipase 206 U/L (73-393) Arterial Blood pH 7.280 (7.350-7.450) 7.290 (7.350-7.450) Arterial Blood Partial Pressure CO2 74.6 mmHg (35.0-45.0) *H 66.2 mmHg (35.0-45.0) *H Arterial Blood Partial Pressure O2 246.3 mmHg (75.0-100.0) H 95.8 mmHg (75.0-100.0) Arterial Blood HCO3 34.3 mmol/L (22.0-26.0) H 31.3 mmol/L (22.0-26.0) H Arterial Blood Oxygen Saturation 98.8 % (92.0-98.0) H 96.5 % (92.0-98.0) Arterial Blood Base Excess 6.1 3.6 Librado Test Positive Positive Phosphorus Level 3.4 MG/DL (2.5-4.9) Magnesium Level 2.2 MG/DL (1.8-2.4) Test 12/06/17 08:23 Arterial Blood pH 7.380 (7.350-7.450) Arterial Blood Partial Pressure CO2 55.2 mmHg (35.0-45.0) *H Arterial Blood Partial Pressure O2 127.9 mmHg (75.0-100.0) H Arterial Blood HCO3 31.9 mmol/L (22.0-26.0) H Arterial Blood Oxygen Saturation 98.0 % (92.0-98.0) Arterial Blood Base Excess 5.8 Librado Test Positive Val Nuñez MD Dec 06, 2017 13:16
--- NOTE | 2017-12-06 14:13 | Pulmonology Progress Note ---
Assessment/Plan Assessment/Plan HPI Patient is an 87-year-old male brought in by EMS from [facility] for decreased oxygen saturation. Patient prior history of chronic the respiratory failure with chronic CO2 retention. Patient was noted to be limited code. He had been having increased work of breathing. The patientremains on BiPAP. Patient prior history of sepsis from recurrent urinary tract infections. Previous G Tube, recurrent episodes of Pneumonia previously. CKD3. Previous CVA with chronic right hemiplegia Allergies: Coded Allergies: No Known Allergies (Verified , 01/02/09) Patient History Reviewed Nursing Documentation: PMH: Agreed; PSxH: Agreed Review of Systems All Other Systems: limited - by mental status Physical Exam General Appearance: thin, Chronically Ill ENT: uvula midline, dry mucus membranes Neck: limited range of motion Respiratory: respiratory distress, rhonchi Cardiovascular #1: normal inspection, regular rate, rhythm, edema Gastrointestinal: normal inspection, normal bowel sounds, non tender Genitourinary: normal inspection Musculoskeletal: decreased range of motion Neurologic: other - aphasic, eyes open Psychiatric: depressed affect Skin: no rash Procedures Critical Care Time Critical Care Time Patient had a critical medical condition which untreated could potentially result in life or limb threatening injury. Total critical care time excluding procedures approximately 45 minutes. Medical Decision Making Diagnostic Impression: Primary Impression: Acute encephalopathy Additional Impressions: Feeding by G-tube Acute respiratory failure ER Course Patient presented for short of breath. Differential included but was not limited to anemia, pneumonia, pneumothorax, myocardial infarction, pericardial effusion, congestive heart failure, acidosis. Because of complexity of patient' s case laboratory testing and imaging studies were ordered. Per patients daughter, patient is DNR. Patient was noted to have evidence of the bilateral pleural effusions as well as hypoventilatory lungs on x-ray imaging read by radiology. Patient was started on BiPAP.The patient was given initially IV fluids for hypotension.The patient was noted to have some history of heart failure was given IV Lasix. The patient was noted to have a slight elevation of his troponin however given the patient's recent bleeding history will not be given aspirin at this time.ABG showed evidence of the retaining CO2. Repeat ABG after oxygen was decreased showed improvement in the patient's CO2. Patient was discussed with Dr. Brewster for further management due to primary care physician Labs Procedure: XRAY Chest 1v Indication: Shortness of breath Technique: One view of the chest Comparison: 11/26/2017 Findings: Less optimal inspiration currently. Previously demonstrated interstitial and airspace infiltrates versus edema appears somewhat improved but persist. There is persistent and probably not significantly changed bilateral pleural fluid. There is bilateral basilar atelectasis. The heart remains enlarged. There is evidence of prior median sternotomy and valve repair Impression: Bilateral interstitial and airspace edema, persistent but considerably improved from 11/26/2017 Test 12/05/17 15:00 12/05/17 15:50 White Blood Count 17.0 K/UL (4.8-10.8) Red Blood Count 3.82 M/UL (4.70-6.10) Hemoglobin 9.6 G/DL (14.2-18.0) Hematocrit 32.9 % (42.0-52.0) Mean Corpuscular Volume 86 FL (80-99) Mean Corpuscular Hemoglobin 25.2 PG (27.0-31.0) Mean Corpuscular Hemoglobin Concent 29.3 G/DL (32.0-36.0) Red Cell Distribution Width 17.6 % (11.6-14.8) Platelet Count 199 K/UL (150-450) Mean Platelet Volume 5.7 FL (6.5-10.1) Neutrophils (%) (Auto) 80.1 % (45.0-75.0) Lymphocytes (%) (Auto) 13.0 % (20.0-45.0) Monocytes (%) (Auto) 4.9 % (1.0-10.0) Eosinophils (%) (Auto) 1.4 % (0.0-3.0) Basophils (%) (Auto) 0.6 % (0.0-2.0) Urine Color Pale yellow Urine Appearance Slightly cloudy Urine pH 5 (4.5-8.0) Urine Specific [place] 1.015 (1.005-1.035) Urine Protein 3+ (NEGATIVE) Urine Glucose (UA) Negative (NEGATIVE) Urine Ketones Negative (NEGATIVE) Urine Occult Blood 5+ (NEGATIVE) Urine Nitrite Negative (NEGATIVE) Urine Bilirubin Negative (NEGATIVE) Urine Urobilinogen Normal MG/DL (0.0-1.0) Urine Leukocyte Esterase 1+ (NEGATIVE) Urine RBC 5-10 /HPF (0 - 0) Urine WBC 2-4 /HPF (0 - 0) Urine Squamous Epithelial Cells Few /LPF (NONE/OCC) Urine Bacteria Few /HPF (NONE) Sodium Level 158 MMOL/L (136-145) Potassium Level 3.5 MMOL/L (3.5-5.1) Chloride Level 118 MMOL/L (98-107) Carbon Dioxide Level 34 MMOL/L (21-32) Anion Gap 6 mmol/L (5-15) Blood Urea Nitrogen 71 mg/dL (7-18) Creatinine 2.5 MG/DL (0.55-1.30) Estimat Glomerular Filtration Rate mL/min (>60) Glucose Level 182 MG/DL (74-106) Lactic Acid Level 1.20 mmol/L (0.4-2.0) Calcium Level 9.8 MG/DL (8.5-10.1) Total Bilirubin 0.2 MG/DL (0.2-1.0) Aspartate Amino Transf (AST/SGOT) 29 U/L (15-37) Alanine Aminotransferase (ALT/SGPT) 16 U/L (12-78) Alkaline Phosphatase 97 U/L (46-116) Total Creatine Kinase 59 U/L (26-308) Creatine Kinase MB 4.1 NG/ML (0.0-3.6) Creatine Kinase MB Relative Index 6.9 Troponin I 0.358 ng/mL (0.000-0.056) Pro-B-Type Natriuretic Peptide 98887 pg/mL (0-125) Total Protein 8.9 G/DL (6.4-8.2) Albumin 2.0 G/DL (3.4-5.0) Globulin 6.9 g/dL Albumin/Globulin Ratio 0.3 (1.0-2.7) Lipase 206 U/L (73-393) Arterial Blood pH 7.280 (7.350-7.450) Arterial Blood Partial Pressure CO2 74.6 mmHg (35.0-45.0) Arterial Blood Partial Pressure O2 246.3 mmHg (75.0-100.0) Arterial Blood HCO3 34.3 mmol/L (22.0-26.0) Arterial Blood Oxygen Saturation 98.8 % (92.0-98.0) Arterial Blood Base Excess 6.1 Librado Test Positive EKG Diagnostic Results Rate: normal Rhythm: NSR ST Segments: no acute changes AP Pneumonia Hypercapneiec respirtaory failure CKD Plan IV AB's: Cefepime, vanc Flagyl BiPAP 15/7 O2 sats 90-94% Limited code HHN Subjective ROS Limited/Unobtainable: No Constitutional: Reports: no symptoms HEENT: Repors: no symptoms Respiratory: Reports: shortness of breath Cardiovascular: Reports: no symptoms Gastrointestinal/Abdominal: Reports: no symptoms Genitourinary: Reports: no symptoms Neurologic: Reports: no symptoms Psychiatric: Reports: no symptoms Skin: Reports: no symptoms Endocrine: Reports: no symptoms Hematologic: Reports: no symptoms Musculoskeletal: Reports: no symptoms Allergies: Coded Allergies: No Known Allergies (Verified , 01/02/09) Objective Last 24 Hour Vital Signs Date Time Temp Pulse Resp B/P (MAP) Pulse Ox O2 Delivery O2 Flow Rate FiO2 12/06/17 13:11 137/89 12/06/17 12:37 62 35 100 Facial 40 12/06/17 12:00 40 12/06/17 12:00 Bi-pap Bi-pap 12/06/17 12:00 97.8 64 33 132/83 (99) 100 97.8 12/06/17 11:20 60 35 96 Bi-pap 40 12/06/17 11:14 60 35 95 Facial 40 12/06/17 11:13 59 35 92 Bi-pap 40 12/06/17 09:42 66 35 99 Bi-pap 35 12/06/17 09:34 67 35 100 Bi-pap 35 12/06/17 09:28 68 35 100 Facial 40 12/06/17 09:24 68 137/89 12/06/17 09:22 68 137/89 12/06/17 08:17 68 32 99 Bi-pap 40 12/06/17 08:10 68 35 94 Bi-pap 50 12/06/17 08:00 97.5 67 34 137/89 (105) 100 97.5 12/06/17 08:00 67 12/06/17 08:00 Bi-pap Bi-pap 12/06/17 08:00 40 12/06/17 06:30 70 35 95 Facial 50 12/06/17 04:40 73 36 99 Facial 50 12/06/17 04:05 40 12/06/17 04:03 Bi-pap Bi-pap 12/06/17 04:00 73 12/06/17 04:00 97.5 71 45 126/76 (93) 93 97.5 12/06/17 03:10 68 41 98 Bi-pap 50 12/06/17 03:00 74 34 97 Facial 50 12/06/17 03:00 74 34 97 Bi-pap 50 12/06/17 02:40 Bi-pap Bi-pap 12/06/17 02:10 Bi-pap 60 12/06/17 02:10 Bi-pap 60 12/06/17 02:09 Bi-pap 60 12/06/17 02:09 Bi-pap 60 12/06/17 01:09 82 40 99 Full Face 60 12/06/17 00:08 97.5 74 40 135/86 (102) 93 97.5 12/06/17 00:00 Bi-pap 12/06/17 00:00 72 12/06/17 00:00 40 12/05/17 22:54 76 37 100 Full Face 60 12/05/17 21:09 76 38 92 Full Face 60 12/05/17 20:00 82 12/05/17 20:00 97.3 75 30 151/85 (107) 98 97.3 12/05/17 20:00 40 12/05/17 18:45 81 40 181/93 95 Bi-pap 40 12/05/17 18:41 94 41 94 Full Face 60 12/05/17 18:41 94 41 Bi-pap 60 12/05/17 18:40 81 40 181/93 98 Bi-pap 40 12/05/17 18:05 86 43 192/101 94 Bi-pap 40 12/05/17 17:48 50 12/05/17 17:30 82 43 187/92 86 Bi-pap 40 12/05/17 16:44 74 22 150/90 98 Bi-pap 40 12/05/17 16:43 76 33 92 Full Face 40 12/05/17 16:09 40 12/05/17 15:48 40 12/05/17 14:47 74 18 Bi-pap 15.0 100 12/05/17 14:47 78 37 144/81 100 Bi-pap 100 12/05/17 14:45 88 41 99 Full Face 100 12/05/17 14:37 74 18 144/93 100 Non-Rebreather 15.0 Intake and Output 12/05/18 12/06/17 19:00 07:00 Intake Total 1300 ml Output Total 200 ml 1290 ml Balance 1100 ml -1290 ml Intake IV Total 1300 ml Output Urine Total 200 ml 1290 ml # Bowel Movements 3 Laboratory Tests 12/05/17 15:00: White Blood Count 17.0H, Red Blood Count 3.82L, Hemoglobin 9.6L, Hematocrit 32.9L, Mean Corpuscular Volume 86, Mean Corpuscular Hemoglobin 25.2L, Mean Corpuscular Hemoglobin Concent 29.3L, Red Cell Distribution Width 17.6H, Platelet Count 199, Mean Platelet Volume 5.7L, Neutrophils (%) (Auto) 80.1H, Lymphocytes (%) (Auto) 13.0L, Monocytes (%) (Auto) 4.9, Eosinophils (%) (Auto) 1.4, Basophils (%) (Auto) 0.6, Urine Color Pale yellow, Urine Appearance Slightly cloudy, Urine pH 5, Urine Specific [place] 1.015, Urine Protein 3+H, Urine Glucose (UA) Negative, Urine Ketones Negative, Urine Occult Blood 5+H, Urine Nitrite Negative, Urine Bilirubin Negative, Urine Urobilinogen Normal, Urine Leukocyte Esterase 1+H, Urine RBC 5-10H, Urine WBC 2-4, Urine Squamous Epithelial Cells Few, Urine Bacteria Few, Sodium Level 158H, Potassium Level 3.5 , Chloride Level 118H, Carbon Dioxide Level 34H, Anion Gap 6, Blood Urea Nitrogen 71H, Creatinine 2.5H, Estimat Glomerular Filtration Rate , Glucose Level 182H, Lactic Acid Level 1.20, Calcium Level 9.8, Total Bilirubin 0.2, Aspartate Amino Transf (AST/SGOT) 29, Alanine Aminotransferase (ALT/SGPT) 16, Alkaline Phosphatase 97, Total Creatine Kinase 59, Creatine Kinase MB 4.1H, Creatine Kinase MB Relative Index 6.9, Troponin I 0.358H, Pro-B-Type Natriuretic Peptide 79877A, Total Protein 8.9H, Albumin 2.0L, Globulin 6.9, Albumin/Globulin Ratio 0.3L, Lipase 206 12/05/17 15:50: Arterial Blood pH 7.280L, Arterial Blood Partial Pressure CO2 74.6*H, Arterial Blood Partial Pressure O2 246.3H, Arterial Blood HCO3 34.3H, Arterial Blood Oxygen Saturation 98.8H, Arterial Blood Base Excess 6.1, Librado Test Positive 12/05/17 16:11: Arterial Blood pH 7.290L, Arterial Blood Partial Pressure CO2 66.2*H, Arterial Blood Partial Pressure O2 95.8, Arterial Blood HCO3 31.3H, Arterial Blood Oxygen Saturation 96.5, Arterial Blood Base Excess 3.6, Librado Test Positive 12/06/17 03:42: White Blood Count 17.7H, Red Blood Count 3.31L, Hemoglobin 8.7L, Hematocrit 28.5L, Mean Corpuscular Volume 86, Mean Corpuscular Hemoglobin 26.4L, Mean Corpuscular Hemoglobin Concent 30.6L, Red Cell Distribution Width 17.4H, Platelet Count 308#, Mean Platelet Volume 5.6L, Neutrophils (%) (Auto) 73.1, Lymphocytes (%) (Auto) 18.7L, Monocytes (%) (Auto) 4.6, Eosinophils (%) (Auto) 3.3H, Basophils (%) (Auto) 0.3, Sodium Level 159H, Potassium Level 3.2L, Chloride Level 119H, Carbon Dioxide Level 33H, Anion Gap 7, Blood Urea Nitrogen 67H, Creatinine 2.6H, Estimat Glomerular Filtration Rate , Glucose Level 88, Calcium Level 9.6, Total Bilirubin 0.3, Aspartate Amino Transf (AST/SGOT) 31, Alanine Aminotransferase (ALT/SGPT) 15, Alkaline Phosphatase 79, Troponin I 0.309H, Pro-B-Type Natriuretic Peptide 06413I, Total Protein 8.6H, Albumin 2.0L , Globulin 6.6, Albumin/Globulin Ratio 0.3L, Phosphorus Level 3.4, Magnesium Level 2.2 12/06/17 08:23: Arterial Blood pH 7.380, Arterial Blood Partial Pressure CO2 55.2*H, Arterial Blood Partial Pressure O2 127.9H, Arterial Blood HCO3 31.9H, Arterial Blood Oxygen Saturation 98.0, Arterial Blood Base Excess 5.8, Librado Test Positive Current Medications Medications (Trade) Dose Ordered Sig/Keira Route PRN Reason Start Time Stop Time Status Last Admin Dose Admin Acetaminophen (Tylenol) 650 mg Q6H PRN ORAL Mild Pain/Temp > 101 12/05/17 20:15 01/04/18 20:14 12/06/17 01:56 Albuterol/ Ipratropium (Albuterol/ Ipratropium) 3 ml Q4HRT HHN 12/05/17 23:00 12/10/17 22:59 12/06/17 11:13 Amlodipine Besylate (Norvasc) 5 mg BID GT 12/06/17 09:00 01/05/18 08:59 12/06/17 09:22 Aspirin (ASA) 81 mg DAILY NG 12/06/17 09:00 01/05/18 08:59 12/06/17 09:22 Bisacodyl (Dulcolax) 10 mg DAILYPRN PRN RECTAL Constipation 12/05/17 21:15 01/04/18 21:14 Carvedilol (Coreg) 12.5 mg BID ORAL 12/06/17 09:00 01/05/18 08:59 12/06/17 09:24 Clopidogrel Bisulfate (Plavix) 75 mg DAILY NG 12/06/17 09:00 01/05/18 08:59 12/06/17 09:24 Colistimethate Sodium (Colistin *inhalation use only*) 75 mg Q12HR@10,22 INH 12/05/17 22:00 12/12/17 21:59 12/06/17 09:34 Dextrose 1,000 ml @ 85 mls/hr [id number] IV 12/06/17 13:00 01/05/18 12:59 12/06/17 13:11 Dextrose (Dextrose 50%) 25 ml STAT PRN IV Hypoglycemia 12/06/17 09:00 01/05/18 08:59 Dextrose (Dextrose 50%) 50 ml STAT PRN IV Hypoglycemia 12/06/17 09:00 01/05/18 08:59 Docusate Sodium (Colace) 100 mg TID GT 12/06/17 13:00 01/05/18 08:59 12/06/17 13:10 Heparin Sodium (Porcine) (Heparin 5000 units/ml) 5,000 units EVERY 12 HOURS SUBQ 12/05/17 21:00 01/04/18 20:59 12/06/17 09:25 Hydralazine HCl (Apresoline) 25 mg Q4H PRN ORAL systolic >160 12/06/17 12:45 01/05/18 12:44 Insulin Aspart (NovoLOG) EVERY 6 HOURS SUBQ 12/06/17 12:00 01/05/18 11:59 12/06/17 11:55 Meropenem 500 mg/ Sodium Chloride 55 ml @ 110 mls/hr EVERY 12 HOURS IVPB 12/05/17 21:00 12/10/17 20:59 12/06/17 09:22 Nitroglycerin (Ntg) 1 patch DAILY TDERMAL 12/06/17 13:00 01/05/18 12:59 12/06/17 13:11 Ondansetron HCl (Zofran) 4 mg Q4HR PRN IVP Nausea & Vomiting 12/05/17 20:15 01/04/18 20:14 Zinc Sulfate (Zinc Sulfate) 220 mg DAILY NG 12/06/17 09:00 01/05/18 08:59 12/06/17 09:22 Riki Mello MD Dec 06, 2017 14:13
--- NOTE | 2017-12-06 19:30 | Consultation ---
DATE OF CONSULTATION: 12/06/2017 CARDIOLOGY CONSULTATION This is done as a coverage for Dr. Franko Freeman. CONSULTING PHYSICIAN: Val Nuñez M.D. REFERRING PHYSICIAN: Cesario Brewster M.D. REASON FOR EVALUATION: Respiratory distress and failure. HISTORY OF PRESENT ILLNESS: Taken from reviewing the chart and discussion with the who is at the bedside. The patient was just discharged from the hospital 6 days ago. He is frequently admitted here for respiratory failure. The patient suffered a stroke 1 year ago and since that time, he became bedridden and unresponsive and hemiplegic on the right side. The patient also has history of coronary artery bypass graft 5 years ago and he has history of hypertension prior to that. Now after he became bedridden, he suffered multiple complications such as recurrent pneumonia, urinary tract infection, hypertension. He has decubitus ulcer on his back. He has diabetes and he is confused and nonresponsive. MEDICATIONS: All reviewed. REVIEW OF SYSTEMS: Unobtainable. The patient is on BiPAP. He is unresponsive. 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 His right arm is contractured and both legs are contractured. He has a G-tube, however, he is unable to participate in review of systems. PHYSICAL EXAMINATION: GENERAL: This is an elderly man, resting in bed, on BiPAP. VITAL SIGNS: Blood pressure is 130/90, heart rate is 68, oxygen saturation on BiPAP is 100% on FiO2 of 40 and respiration rate is 35. HEENT: Difficult to determine due to the mask, on BiPAP. Looks like he has some mild left facial droop. His pupils are equal. NECK: Supple. His jugular venous pressure is difficult to obtain due to BiPAP, however, looks like about 8 cm. He has brisk carotid upstroke bilaterally. LUNGS: He has scattered rales and rhonchi. HEART: Very distant, regular with abnormal S2. ABDOMEN: Soft. There is a G-tube. EXTREMITIES: Lower extremities contracted. There are no obvious lesions on the lower extremities. I did not evaluate his decubitus. NEUROLOGICAL: He has weakness and contracture of the right side. LABORATORY AND DIAGNOSTIC DATA: His EKG shows sinus rhythm with left bundle-branch block. His chest x-ray was interpreted as CHF.. There is a pleural effusion, but I do not see any CHF there. His labs are all reviewed. His white count 17, his hemoglobin 8.7 and his platelets 308. His potassium 3.2 and his sodium 159. His creatinine 2.6 and BUN is 67. Troponin is 0.309. Pro-BNP level 12,976. Albumin is 2. I also reviewed his echocardiogram and his echocardiogram revealed LVH severe with anterior septal motion of mitral valve in systole and LVOT gradient, diastolic dysfunction, and left atrial enlargement. IMPRESSION AND RECOMMENDATION: Sepsis, pneumonia and decubital ulcer. Based on what I reviewed, I believe that this patient does not need the Lasix. He needs to be hydrated and he needs antibiotics for his infection. Whether it is pneumonia or it is coming from decubital ulcer, it is hard to tell. Based on all these numbers including very low albumin and high creatinine, his overall condition is poor and prognosis is also poor. The patient is on IV hydration, which I agree with and on broad-spectrum antibiotics, however, he is on aspirin and clopidogrel. I am concerned that because of hemoglobin drop, he might develop further bleeding and these agents are contraindicated. Also, I recommend to discontinue furosemide. Thank you very much for your consultation. This consultation is done as a coverage for Dr. Franko Freeman. Val Nuñez M.D. DR: JOSELUIS JOB#: [id number] CC:
[2017-12-07] VITALS: BP 131/76
[2017-12-07 04:00] VITALS: BP 148/90
[2017-12-07 04:50] LABS: BASOPHILS % (AUTO) 0.5 % (0.0-2.0); HEMATOCRIT 26.9 % (42.0-52.0); LYMPHOCYTES % (AUTO) 23.6 % (20.0-45.0); MEAN CORPUSCULAR VOLUME 85 FL (80-99); MONOCYTES % (AUTO) 6.6 % (1.0-10.0); NEUTROPHILS % (AUTO) 64.4 % (45.0-75.0); PLATELET COUNT 276 K/UL (150-450); RED BLOOD COUNT 3.17 M/UL (4.70-6.10); RED CELL DISTRIBUTION WIDTH 17.5 % (11.6-14.8); WHITE BLOOD COUNT 13.1 K/UL (4.8-10.8)
[2017-12-07] MEDS: Albuterol/Ipratropium 3ml neb HHN SCH ×6 (04:59→22:35)
[2017-12-07 05:25] LABS: ALANINE AMINOTRANSFERASE 12 U/L (12-78); ALBUMIN 1.7 G/DL (3.4-5.0); ALBUMIN/GLOBULIN RATIO 0.3 (1.0-2.7); ALKALINE PHOSPHATASE 64 U/L (46-116); ANION GAP 5 mmol/L (5-15); ASPARTATE AMINO TRANSFERASE 23 U/L (15-37); BILIRUBIN,TOTAL 0.4 MG/DL (0.2-1.0); BLOOD UREA NITROGEN 68 mg/dL (7-18); CALCIUM 9.3 MG/DL (8.5-10.1); CARBON DIOXIDE 33 MMOL/L (21-32); CHLORIDE 120 MMOL/L (98-107); CHOLESTEROL 63 MG/DL (< 200); CREATINE KINASE 24 U/L (26-308); CREATININE 2.8 MG/DL (0.55-1.30); GAMMA GLUTAMYL TRANSPEPTIDASE 20 U/L (5-85); HDL CHOLESTEROL 29 MG/DL (40-60); PHOSPHORUS 3.1 MG/DL (2.5-4.9); POTASSIUM 3.4 MMOL/L (3.5-5.1); SODIUM 158 MMOL/L (136-145); TRIGLYCERIDES 88 MG/DL (30-150)
[2017-12-07] MEDS: NovoLOG Insulin Flexpen SUBQ SCH ×4 (06:00→18:00)
[2017-12-07 08:00] VITALS: BP 157/92
[2017-12-07] MEDS: Meropenem 500 MG in NS 55 ML IVPB SCH ×2 (09:08→20:39)
[2017-12-07] MEDS: Aspirin Baby 81mg NG SCH (09:08)
[2017-12-07] MEDS: Carvedilol 12.5mg tab ORAL SCH ×2 (09:09→18:36)
[2017-12-07] MEDS: Zinc Sulfate 220mg cap NG SCH (09:09)
[2017-12-07] MEDS: Docusate 100mg/10ml Liq GT SCH ×3 (09:09→18:35)
[2017-12-07] MEDS: Nitroglycerin Patch 0.4mg TDERMAL SCH (09:10)
[2017-12-07] MEDS: Heparin 5000 units/ml inj SUBQ SCH ×2 (09:12→20:40)
--- NOTE | 2017-12-07 11:06 | Nephrology Progress Note ---
Assessment/Plan Problem List: (1) CKD (chronic kidney disease) (2) Acute respiratory failure (3) Acute encephalopathy (4) UTI (urinary tract infection) (5) Anemia Assessment 1) Acute respiratory failure, Pneumonia and UTI (2) ATN (acute tubular necrosis), with underlying CKD (3) Anemia (4) UTI (urinary tract infection) (5) DNR (do not resuscitate) (6) Acute Encephalopathy, s/p Multiple strokes (7) PEG (8) HyperGlycemia Plan Pulm support Hydrate as possible - BS control K supplement avoid nephrotoxics Monitor renal parameters Hemodynamic support urine studies Per orders Subjective ROS Limited/Unobtainable: Yes Constitutional: Reports: malaise, other - on bipap Objective Objective Last 24 Hour Vital Signs Date Time Temp Pulse Resp B/P (MAP) Pulse Ox O2 Delivery O2 Flow Rate FiO2 12/07/17 09:10 157/92 12/07/17 09:09 70 157/92 12/07/17 09:09 70 157/92 12/07/17 08:56 65 35 100 Facial 40 12/07/17 08:00 40 12/07/17 08:00 Bi-pap Bi-pap 12/07/17 08:00 97.6 70 20 157/92 (113) 100 97.6 12/07/17 08:00 69 12/07/17 07:46 66 38 100 Bi-pap 40 12/07/17 07:36 74 37 100 Bi-pap 40 12/07/17 07:29 74 37 100 Facial 40 12/07/17 05:02 65 34 94 Facial 40 12/07/17 04:00 97.7 64 19 148/90 (109) 96 97.7 12/07/17 04:00 67 12/07/17 04:00 Bi-pap Bi-pap 12/07/17 04:00 40 12/07/17 03:29 61 34 100 Bi-pap 40 12/07/17 03:14 65 32 100 Facial 40 12/07/17 03:12 65 32 100 Bi-pap 40 12/07/17 01:06 66 42 100 Facial 40 12/07/17 00:00 97.8 75 18 131/76 (94) 96 97.8 12/07/17 00:00 40 12/07/17 00:00 Bi-pap Bi-pap 12/06/17 23:29 63 30 100 Bi-pap 40 12/06/17 23:27 65 32 100 Facial 40 12/06/17 23:21 65 34 100 Bi-pap 40 12/06/17 23:20 63 32 100 Bi-pap 40 12/06/17 23:14 63 32 100 Bi-pap 40 12/06/17 21:17 69 30 94 Facial 40 12/06/17 20:00 79 12/06/17 19:58 Bi-pap Bi-pap 12/06/17 19:58 40 12/06/17 19:56 97.7 77 16 123/83 (96) 96 97.7 12/06/17 19:29 69 32 96 Bi-pap 40 12/06/17 19:24 64 34 95 Bi-pap 40 12/06/17 19:02 67 32 93 Facial 40 12/06/17 17:47 79 145/103 12/06/17 17:46 79 145/103 12/06/17 16:47 86 36 95 Facial 40 12/06/17 16:00 40 12/06/17 16:00 Bi-pap Bi-pap 12/06/17 16:00 97.5 74 28 140/88 (105) 95 97.5 12/06/17 16:00 74 12/06/17 15:14 73 27 92 Bi-pap 40 12/06/17 15:07 77 33 92 Facial 40 12/06/17 15:07 66 33 92 Bi-pap 40 12/06/17 13:11 137/89 12/06/17 12:37 62 35 100 Facial 40 12/06/17 12:00 40 12/06/17 12:00 Bi-pap Bi-pap 12/06/17 12:00 97.8 64 33 132/83 (99) 100 97.8 12/06/17 11:49 63 12/06/17 11:20 60 35 96 Bi-pap 40 12/06/17 11:14 60 35 95 Facial 40 12/06/17 11:13 59 35 92 Bi-pap 40 Intake and Output 12/06/17 12/07/17 19:00 07:00 Intake Total 944.3334 ml 1045 ml Output Total 400 ml 450 ml Balance 544.3334 ml 595 ml Intake IV Total 794.3334 ml 1045 ml Other 150 ml 0 ml Output Urine Total 400 ml 450 ml # Bowel Movements 2 Laboratory Tests 12/07/17 03:25: White Blood Count 13.1H, Red Blood Count 3.17L, Hemoglobin 8.0L, Hematocrit 26.9L, Mean Corpuscular Volume 85, Mean Corpuscular Hemoglobin 25.1L, Mean Corpuscular Hemoglobin Concent 29.6L, Red Cell Distribution Width 17.5H, Platelet Count 276, Mean Platelet Volume 6.4L, Neutrophils (%) (Auto) 64.4, Lymphocytes (%) (Auto) 23.6, Monocytes (%) (Auto) 6.6, Eosinophils (%) (Auto) 5.0H, Basophils (%) (Auto) 0.5, Sodium Level 158H, Potassium Level 3.4L, Chloride Level 120H, Carbon Dioxide Level 33H, Anion Gap 5, Blood Urea Nitrogen 68H, Creatinine 2.8H, Estimat Glomerular Filtration Rate , Glucose Level 97, Uric Acid 10.4H, Calcium Level 9.3, Phosphorus Level 3.1, Magnesium Level 2.2, Total Bilirubin 0.4, Gamma Glutamyl Transpeptidase 20, Aspartate Amino Transf ( AST/SGOT) 23, Alanine Aminotransferase (ALT/SGPT) 12, Alkaline Phosphatase 64, Total Creatine Kinase 24L, Troponin I 0.108H, C-Reactive Protein, Quantitative 14.1H, Pro-B-Type Natriuretic Peptide 7309H, Total Protein 7.7, Albumin 1.7L, Globulin 6.0, Albumin/Globulin Ratio 0.3L, Triglycerides Level 88, Cholesterol Level 63, LDL Cholesterol 30, HDL Cholesterol 29L, Cholesterol/HDL Ratio 2.2L, Thyroid Stimulating Hormone (TSH) 3.791H Height (Feet): 6 Height (Inches): 0.00 Weight (Pounds): 187 General Appearance: mild distress EENT: other - on bipap Cardiovascular: normal rate Respiratory/Chest: decreased breath sounds Abdomen: distended Mukul Duarte MD Dec 07, 2017 11:06
[2017-12-07 12:00] VITALS: BP 160/90
[2017-12-07] MEDS: Colistin for inhalation INH SCH ×2 (12:11→21:04)
[2017-12-07 16:00] VITALS: BP 166/97
[2017-12-07] MEDS: HydrALAZINE 10mg Tab ORAL PRN (16:48)
--- NOTE | 2017-12-07 18:30 | Consultation ---
DATE OF CONSULTATION: 12/07/2017 INFECTIOUS DISEASE CONSULTATION CONSULTING PHYSICIAN: Donnell Murray M.D. PRIMARY ATTENDING PHYSICIAN: Cesario Brewster M.D. REASON FOR CONSULT: Sepsis and pneumonia. HISTORY OF PRESENT ILLNESS: This is an 87-year-old male admitted on 12/05/2017 from nursing facility because of decreasing O2 saturation and altered mental status. The patient was recently [place] [facility] [place] after receiving treatment for pneumonia. The last sputum culture grew multi-drug resistant Acinetobacter. After discharge, the patient went to half-way, but the G-tube came out the patient was transferred to [facility]. Because the G-tube site was closed, the patient went to another procedure and a new G-tube was placed. After the discharge to half-way, the patient developed decrease in O2 saturation and came back to the hospital. PAST MEDICAL HISTORY: Significant for advanced dementia, diastolic congestive heart failure, anemia, chronic kidney disease, coronary artery disease, pressure ulcer, and chronic respiratory failure. MEDICATIONS: Getting nitroglycerine, Colace, hydralazine, insulin, amlodipine, carvedilol, aspirin, Plavix, zinc, albuterol, ipratropium inhaler, colistin inhaler, meropenem, Bisacodyl, and heparin. ALLERGIES: No known drug allergies. SOCIAL HISTORY: A half-way resident with poor mental and functional status and frequent admission to the hospital. Has daughters, who is in bedside. REVIEW OF SYSTEMS: Unobtainable. The patient has teeth grinding since admission, is on BiPAP machine. CODE STATUS: DNR/DNI. PHYSICAL EXAM: VITAL SIGNS: Blood pressure 157/92, pulse 70, respirations 35, and temperature is 97.6. No fevers since admission. HEAD AND NECK: He is on BiPAP. HEART: Has normal rate. LUNGS: Has decreased sounds, otherwise clear. ABDOMEN: Soft. G-tube in place. EXTREMITY: He has no significant edema. LABORATORY DATA: WBC 15.1, hemoglobin 8, hematocrit 26.9, and platelets 276,000. Sodium 158, potassium 3.4, carbon dioxide 33, chloride 120, BUN 68, and creatinine 2.8. Troponin was elevated at 0.03. BNP was elevated, at the time of admission was 12,976 and now it is coming down to 7309. Blood culture x2 are negative. Blood gas showed hypercapnia that is improving since admission. The latest PCO2 is 55.2. Chest x-ray showed bilateral interstitial and air space edema persistent, but has improved since 11/26/2017. IMPRESSION: Sepsis with leukocytosis and respiratory distress and tachypnea. The patient has chronic hypercapnic respiratory failure that has increased. Has Acinetobacter pneumoniae in recent admission that is likely improving on chest x-ray. Has anemia, has congestive heart failure, coronary artery disease, elevation of troponin, pressure ulcer, and chronic kidney disease. RECOMMENDATION: We will continue with colistin inhaler and meropenem. We will follow up the cultures. At the end of my exam, I thank Dr. Brewster, for involving me in the care of this patient. Donnell Murray M.D. DR: YONI JOB#: [id number] CC: SHIRA
[2017-12-07 19:49] VITALS: BP 154/86
--- NOTE | 2017-12-07 20:05 | Cardiology Progress Note ---
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 physiology Subjective Subjective Remains unresponsive on Bipap family is not present Objective Last 24 Hour Vital Signs Date Time Temp Pulse Resp B/P (MAP) Pulse Ox O2 Delivery O2 Flow Rate FiO2 12/07/17 19:49 97.6 65 22 154/86 (108) 100 97.6 12/07/17 19:14 63 24 100 Nasal Cannula 2.0 28 12/07/17 19:03 66 22 99 Nasal Cannula 2.0 28 12/07/17 18:36 63 166/97 12/07/17 18:36 63 166/97 12/07/17 16:48 166/97 12/07/17 16:00 4.0 12/07/17 16:00 97.8 66 18 166/97 (120) 99 97.8 12/07/17 16:00 63 12/07/17 16:00 Bi-pap Bi-pap 12/07/17 15:49 58 29 100 Nasal Cannula 2.0 12/07/17 15:39 96 27 99 Nasal Cannula 4.0 12/07/17 12:22 64 31 100 Nasal Cannula 4.0 12/07/17 12:11 64 31 100 Nasal Cannula 4.0 12/07/17 12:08 64 32 100 Nasal Cannula 4.0 12/07/17 12:00 97.8 63 18 160/90 (113) 100 97.8 12/07/17 12:00 72 12/07/17 12:00 Bi-pap Bi-pap 12/07/17 12:00 40 12/07/17 11:58 5 31 100 Nasal Cannula 4.0 12/07/17 09:10 157/92 12/07/17 09:09 70 157/92 12/07/17 09:09 70 157/92 12/07/17 08:56 65 35 100 Facial 40 12/07/17 08:00 40 12/07/17 08:00 Bi-pap Bi-pap 12/07/17 08:00 97.6 70 20 157/92 (113) 100 97.6 12/07/17 08:00 69 12/07/17 07:46 66 38 100 Bi-pap 40 12/07/17 07:36 74 37 100 Bi-pap 40 12/07/17 07:29 74 37 100 Facial 40 12/07/17 05:02 65 34 94 Facial 40 12/07/17 04:00 97.7 64 19 148/90 (109) 96 97.7 12/07/17 04:00 67 12/07/17 04:00 Bi-pap Bi-pap 12/07/17 04:00 40 12/07/17 03:29 61 34 100 Bi-pap 40 12/07/17 03:14 65 32 100 Facial 40 12/07/17 03:12 65 32 100 Bi-pap 40 12/07/17 01:06 66 42 100 Facial 40 12/07/17 00:00 97.8 75 18 131/76 (94) 96 97.8 12/07/17 00:00 40 12/07/17 00:00 Bi-pap Bi-pap 12/06/17 23:29 63 30 100 Bi-pap 40 12/06/17 23:27 65 32 100 Facial 40 12/06/17 23:21 65 34 100 Bi-pap 40 12/06/17 23:20 63 32 100 Bi-pap 40 12/06/17 23:14 63 32 100 Bi-pap 40 12/06/17 21:17 69 30 94 Facial 40 General Appearance: moderate distress EENT: other - facail droop Neck: no JVD Rhythm: ST Cardiovascular: regular rhythm Respiratory/Chest: crackles/rales, rhonchi - bilaterally Abdomen: soft, other - g tube Extremities: other - contracted with muscle atrophy Neurologic: other - right sided hemiplegia Intake and Output 12/06/17 12/07/17 19:00 07:00 Intake Total 944.3334 ml 1045 ml Output Total 400 ml 450 ml Balance 544.3334 ml 595 ml Intake IV Total 794.3334 ml 1045 ml Other 150 ml 0 ml Output Urine Total 400 ml 450 ml # Bowel Movements 2 Laboratory Tests Test 12/07/17 03:25 White Blood Count 13.1 K/UL (4.8-10.8) H Red Blood Count 3.17 M/UL (4.70-6.10) L Hemoglobin 8.0 G/DL (14.2-18.0) L Hematocrit 26.9 % (42.0-52.0) L Mean Corpuscular Volume 85 FL (80-99) Mean Corpuscular Hemoglobin 25.1 PG (27.0-31.0) L Mean Corpuscular Hemoglobin Concent 29.6 G/DL (32.0-36.0) L Red Cell Distribution Width 17.5 % (11.6-14.8) H Platelet Count 276 K/UL (150-450) Mean Platelet Volume 6.4 FL (6.5-10.1) L Neutrophils (%) (Auto) 64.4 % (45.0-75.0) Lymphocytes (%) (Auto) 23.6 % (20.0-45.0) Monocytes (%) (Auto) 6.6 % (1.0-10.0) Eosinophils (%) (Auto) 5.0 % (0.0-3.0) H Basophils (%) (Auto) 0.5 % (0.0-2.0) Sodium Level 158 MMOL/L (136-145) H Potassium Level 3.4 MMOL/L (3.5-5.1) L Chloride Level 120 MMOL/L (98-107) H Carbon Dioxide Level 33 MMOL/L (21-32) H Anion Gap 5 mmol/L (5-15) Blood Urea Nitrogen 68 mg/dL (7-18) H Creatinine 2.8 MG/DL (0.55-1.30) H Estimat Glomerular Filtration Rate mL/min (>60) Glucose Level 97 MG/DL (74-106) Uric Acid 10.4 MG/DL (2.6-7.2) H Calcium Level 9.3 MG/DL (8.5-10.1) Phosphorus Level 3.1 MG/DL (2.5-4.9) Magnesium Level 2.2 MG/DL (1.8-2.4) Total Bilirubin 0.4 MG/DL (0.2-1.0) Gamma Glutamyl Transpeptidase 20 U/L (5-85) Aspartate Amino Transf (AST/SGOT) 23 U/L (15-37) Alanine Aminotransferase (ALT/SGPT) 12 U/L (12-78) Alkaline Phosphatase 64 U/L (46-116) Total Creatine Kinase 24 U/L (26-308) L Troponin I 0.108 ng/mL (0.000-0.056) C-Reactive Protein, Quantitative 14.1 mg/dL (0.00-0.90) H Pro-B-Type Natriuretic Peptide 7309 pg/mL (0-125) H Total Protein 7.7 G/DL (6.4-8.2) Albumin 1.7 G/DL (3.4-5.0) L Globulin 6.0 g/dL Albumin/Globulin Ratio 0.3 (1.0-2.7) L Triglycerides Level 88 MG/DL (30-150) Cholesterol Level 63 MG/DL (< 200) LDL Cholesterol 30 mg/dL (<100) HDL Cholesterol 29 MG/DL (40-60) L Cholesterol/HDL Ratio 2.2 (3.3-4.4) L Thyroid Stimulating Hormone (TSH) 3.791 uiU/mL (0.358-3.740) Microbiology Date/Time Source Procedure Growth Status 12/05/17 15:10 Blood Blood Culture - Preliminary NO GROWTH AFTER 24 HOURS Resulted 12/05/17 14:55 Blood Blood Culture - Preliminary NO GROWTH AFTER 24 HOURS Resulted 12/06/17 00:00 Wound Gram Stain - Final Resulted 12/06/17 00:00 Wound Wound Culture - Preliminary Resulted Val Nuñez MD Dec 07, 2017 20:05
--- NOTE | 2017-12-07 21:54 | Pulmonology Progress Note ---
Assessment/Plan Assessment/Plan HPI Patient is an 87-year-old male brought in by EMS from [facility] for decreased oxygen saturation. Patient prior history of chronic the respiratory failure with chronic CO2 retention. Patient was noted to be limited code. He had been having increased work of breathing. The patientremains on BiPAP. Patient prior history of sepsis from recurrent urinary tract infections. Previous G Tube, recurrent episodes of Pneumonia previously. CKD3. Previous CVA with chronic right hemiplegia Allergies: Coded Allergies: No Known Allergies (Verified , 01/02/09) Patient History Reviewed Nursing Documentation: PMH: Agreed; PSxH: Agreed Review of Systems All Other Systems: limited - by mental status Physical Exam General Appearance: thin, Chronically Ill ENT: uvula midline, dry mucus membranes Neck: limited range of motion Respiratory: respiratory distress, rhonchi Cardiovascular #1: normal inspection, regular rate, rhythm, edema Gastrointestinal: normal inspection, normal bowel sounds, non tender Genitourinary: normal inspection Musculoskeletal: decreased range of motion Neurologic: other - aphasic, eyes open Psychiatric: depressed affect Skin: no rash Procedures Critical Care Time Critical Care Time Patient had a critical medical condition which untreated could potentially result in life or limb threatening injury. Total critical care time excluding procedures approximately 45 minutes. Medical Decision Making Diagnostic Impression: Primary Impression: Acute encephalopathy Additional Impressions: Feeding by G-tube Acute respiratory failure ER Course Patient presented for short of breath. Differential included but was not limited to anemia, pneumonia, pneumothorax, myocardial infarction, pericardial effusion, congestive heart failure, acidosis. Because of complexity of patient' s case laboratory testing and imaging studies were ordered. Per patients daughter, patient is DNR. Patient was noted to have evidence of the bilateral pleural effusions as well as hypoventilatory lungs on x-ray imaging read by radiology. Patient was started on BiPAP.The patient was given initially IV fluids for hypotension.The patient was noted to have some history of heart failure was given IV Lasix. The patient was noted to have a slight elevation of his troponin however given the patient's recent bleeding history will not be given aspirin at this time.ABG showed evidence of the retaining CO2. Repeat ABG after oxygen was decreased showed improvement in the patient's CO2. Patient was discussed with Dr. Brewster for further management due to primary care physician Labs Procedure: XRAY Chest 1v Indication: Shortness of breath Technique: One view of the chest Comparison: 11/26/2017 Findings: Less optimal inspiration currently. Previously demonstrated interstitial and airspace infiltrates versus edema appears somewhat improved but persist. There is persistent and probably not significantly changed bilateral pleural fluid. There is bilateral basilar atelectasis. The heart remains enlarged. There is evidence of prior median sternotomy and valve repair Impression: Bilateral interstitial and airspace edema, persistent but considerably improved from 11/26/2017 Test 12/05/17 15:00 12/05/17 15:50 White Blood Count 17.0 K/UL (4.8-10.8) Red Blood Count 3.82 M/UL (4.70-6.10) Hemoglobin 9.6 G/DL (14.2-18.0) Hematocrit 32.9 % (42.0-52.0) Mean Corpuscular Volume 86 FL (80-99) Mean Corpuscular Hemoglobin 25.2 PG (27.0-31.0) Mean Corpuscular Hemoglobin Concent 29.3 G/DL (32.0-36.0) Red Cell Distribution Width 17.6 % (11.6-14.8) Platelet Count 199 K/UL (150-450) Mean Platelet Volume 5.7 FL (6.5-10.1) Neutrophils (%) (Auto) 80.1 % (45.0-75.0) Lymphocytes (%) (Auto) 13.0 % (20.0-45.0) Monocytes (%) (Auto) 4.9 % (1.0-10.0) Eosinophils (%) (Auto) 1.4 % (0.0-3.0) Basophils (%) (Auto) 0.6 % (0.0-2.0) Urine Color Pale yellow Urine Appearance Slightly cloudy Urine pH 5 (4.5-8.0) Urine Specific [place] 1.015 (1.005-1.035) Urine Protein 3+ (NEGATIVE) Urine Glucose (UA) Negative (NEGATIVE) Urine Ketones Negative (NEGATIVE) Urine Occult Blood 5+ (NEGATIVE) Urine Nitrite Negative (NEGATIVE) Urine Bilirubin Negative (NEGATIVE) Urine Urobilinogen Normal MG/DL (0.0-1.0) Urine Leukocyte Esterase 1+ (NEGATIVE) Urine RBC 5-10 /HPF (0 - 0) Urine WBC 2-4 /HPF (0 - 0) Urine Squamous Epithelial Cells Few /LPF (NONE/OCC) Urine Bacteria Few /HPF (NONE) Sodium Level 158 MMOL/L (136-145) Potassium Level 3.5 MMOL/L (3.5-5.1) Chloride Level 118 MMOL/L (98-107) Carbon Dioxide Level 34 MMOL/L (21-32) Anion Gap 6 mmol/L (5-15) Blood Urea Nitrogen 71 mg/dL (7-18) Creatinine 2.5 MG/DL (0.55-1.30) Estimat Glomerular Filtration Rate mL/min (>60) Glucose Level 182 MG/DL (74-106) Lactic Acid Level 1.20 mmol/L (0.4-2.0) Calcium Level 9.8 MG/DL (8.5-10.1) Total Bilirubin 0.2 MG/DL (0.2-1.0) Aspartate Amino Transf (AST/SGOT) 29 U/L (15-37) Alanine Aminotransferase (ALT/SGPT) 16 U/L (12-78) Alkaline Phosphatase 97 U/L (46-116) Total Creatine Kinase 59 U/L (26-308) Creatine Kinase MB 4.1 NG/ML (0.0-3.6) Creatine Kinase MB Relative Index 6.9 Troponin I 0.358 ng/mL (0.000-0.056) Pro-B-Type Natriuretic Peptide 33738 pg/mL (0-125) Total Protein 8.9 G/DL (6.4-8.2) Albumin 2.0 G/DL (3.4-5.0) Globulin 6.9 g/dL Albumin/Globulin Ratio 0.3 (1.0-2.7) Lipase 206 U/L (73-393) Arterial Blood pH 7.280 (7.350-7.450) Arterial Blood Partial Pressure CO2 74.6 mmHg (35.0-45.0) Arterial Blood Partial Pressure O2 246.3 mmHg (75.0-100.0) Arterial Blood HCO3 34.3 mmol/L (22.0-26.0) Arterial Blood Oxygen Saturation 98.8 % (92.0-98.0) Arterial Blood Base Excess 6.1 Librado Test Positive EKG Diagnostic Results Rate: normal Rhythm: NSR ST Segments: no acute changes AP Pneumonia Hypercapneiec respirtaory failure CKD Plan IV AB's: Cefepime, vanc Flagyl BiPAP 15/7 O2 sats 90-94% Limited code HHN Subjective ROS Limited/Unobtainable: Yes Constitutional: Reports: no symptoms HEENT: Repors: dysphagia Respiratory: Reports: shortness of breath Cardiovascular: Reports: no symptoms Gastrointestinal/Abdominal: Reports: no symptoms Genitourinary: Reports: no symptoms Neurologic: Reports: no symptoms Psychiatric: Reports: no symptoms Skin: Reports: no symptoms Endocrine: Reports: no symptoms Hematologic: Reports: no symptoms Musculoskeletal: Reports: no symptoms Allergies: Coded Allergies: No Known Allergies (Verified , 01/02/09) Objective Last 24 Hour Vital Signs Date Time Temp Pulse Resp B/P (MAP) Pulse Ox O2 Delivery O2 Flow Rate FiO2 12/07/17 21:11 63 24 100 Nasal Cannula 2.0 28 12/07/17 21:04 65 24 100 Nasal Cannula 2.0 28 12/07/17 20:00 Bi-pap Bi-pap 12/07/17 20:00 3.0 12/07/17 19:49 97.6 65 22 154/86 (108) 100 97.6 12/07/17 19:14 63 24 100 Nasal Cannula 2.0 28 12/07/17 19:03 66 22 99 Nasal Cannula 2.0 28 12/07/17 18:36 63 166/97 12/07/17 18:36 63 166/97 12/07/17 16:48 166/97 12/07/17 16:00 4.0 12/07/17 16:00 97.8 66 18 166/97 (120) 99 97.8 12/07/17 16:00 63 12/07/17 16:00 Bi-pap Bi-pap 12/07/17 15:49 58 29 100 Nasal Cannula 2.0 12/07/17 15:39 96 27 99 Nasal Cannula 4.0 12/07/17 12:22 64 31 100 Nasal Cannula 4.0 12/07/17 12:11 64 31 100 Nasal Cannula 4.0 12/07/17 12:08 64 32 100 Nasal Cannula 4.0 12/07/17 12:00 97.8 63 18 160/90 (113) 100 97.8 12/07/17 12:00 72 12/07/17 12:00 Bi-pap Bi-pap 12/07/17 12:00 40 12/07/17 11:58 5 31 100 Nasal Cannula 4.0 12/07/17 09:10 157/92 12/07/17 09:09 70 157/92 12/07/17 09:09 70 157/92 12/07/17 08:56 65 35 100 Facial 40 12/07/17 08:00 40 12/07/17 08:00 Bi-pap Bi-pap 12/07/17 08:00 97.6 70 20 157/92 (113) 100 97.6 12/07/17 08:00 69 12/07/17 07:46 66 38 100 Bi-pap 40 12/07/17 07:36 74 37 100 Bi-pap 40 12/07/17 07:29 74 37 100 Facial 40 12/07/17 05:02 65 34 94 Facial 40 12/07/17 04:00 97.7 64 19 148/90 (109) 96 97.7 12/07/17 04:00 67 12/07/17 04:00 Bi-pap Bi-pap 12/07/17 04:00 40 12/07/17 03:29 61 34 100 Bi-pap 40 12/07/17 03:14 65 32 100 Facial 40 12/07/17 03:12 65 32 100 Bi-pap 40 12/07/17 01:06 66 42 100 Facial 40 12/07/17 00:00 97.8 75 18 131/76 (94) 96 97.8 12/07/17 00:00 40 12/07/17 00:00 Bi-pap Bi-pap 12/06/17 23:29 63 30 100 Bi-pap 40 12/06/17 23:27 65 32 100 Facial 40 12/06/17 23:21 65 34 100 Bi-pap 40 12/06/17 23:20 63 32 100 Bi-pap 40 12/06/17 23:14 63 32 100 Bi-pap 40 Intake and Output 12/06/17 12/07/17 19:00 07:00 Intake Total 944.3334 ml 1045 ml Output Total 400 ml 450 ml Balance 544.3334 ml 595 ml Intake IV Total 794.3334 ml 1045 ml Other 150 ml 0 ml Output Urine Total 400 ml 450 ml # Bowel Movements 2 Microbiology Date/Time Source Procedure Growth Status 12/05/17 15:10 Blood Blood Culture - Preliminary NO GROWTH AFTER 24 HOURS Resulted 12/05/17 14:55 Blood Blood Culture - Preliminary NO GROWTH AFTER 24 HOURS Resulted 12/06/17 00:00 Wound Gram Stain - Final Resulted 12/06/17 00:00 Wound Wound Culture - Preliminary Resulted Laboratory Tests 12/07/17 03:25: White Blood Count 13.1H, Red Blood Count 3.17L, Hemoglobin 8.0L, Hematocrit 26.9L, Mean Corpuscular Volume 85, Mean Corpuscular Hemoglobin 25.1L, Mean Corpuscular Hemoglobin Concent 29.6L, Red Cell Distribution Width 17.5H, Platelet Count 276, Mean Platelet Volume 6.4L, Neutrophils (%) (Auto) 64.4, Lymphocytes (%) (Auto) 23.6, Monocytes (%) (Auto) 6.6, Eosinophils (%) (Auto) 5.0H, Basophils (%) (Auto) 0.5, Sodium Level 158H, Potassium Level 3.4L, Chloride Level 120H, Carbon Dioxide Level 33H, Anion Gap 5, Blood Urea Nitrogen 68H, Creatinine 2.8H, Estimat Glomerular Filtration Rate , Glucose Level 97, Uric Acid 10.4H, Calcium Level 9.3, Phosphorus Level 3.1, Magnesium Level 2.2, Total Bilirubin 0.4, Gamma Glutamyl Transpeptidase 20, Aspartate Amino Transf ( AST/SGOT) 23, Alanine Aminotransferase (ALT/SGPT) 12, Alkaline Phosphatase 64, Total Creatine Kinase 24L, Troponin I 0.108H, C-Reactive Protein, Quantitative 14.1H, Pro-B-Type Natriuretic Peptide 7309H, Total Protein 7.7, Albumin 1.7L, Globulin 6.0, Albumin/Globulin Ratio 0.3L, Triglycerides Level 88, Cholesterol Level 63, LDL Cholesterol 30, HDL Cholesterol 29L, Cholesterol/HDL Ratio 2.2L, Thyroid Stimulating Hormone (TSH) 3.791H Current Medications Medications (Trade) Dose Ordered Sig/Keira Route PRN Reason Start Time Stop Time Status Last Admin Dose Admin Acetaminophen (Tylenol) 650 mg Q6H PRN ORAL Mild Pain/Temp > 101 12/05/17 20:15 01/04/18 20:14 12/06/17 01:56 Albuterol/ Ipratropium (Albuterol/ Ipratropium) 3 ml Q4HRT HHN 7/20/18 23:00 12/10/17 22:59 12/07/17 19:03 Amlodipine Besylate (Norvasc) 5 mg BID GT 12/06/17 09:00 01/05/18 08:59 12/07/17 18:36 Aspirin (ASA) 81 mg DAILY NG 12/06/17 09:00 01/05/18 08:59 12/07/17 09:08 Bisacodyl (Dulcolax) 10 mg DAILYPRN PRN RECTAL Constipation 12/05/17 21:15 01/04/18 21:14 Carvedilol (Coreg) 12.5 mg BID ORAL 12/06/17 09:00 01/05/18 08:59 12/07/17 18:36 Clopidogrel Bisulfate (Plavix) 75 mg DAILY NG 12/06/17 09:00 01/05/18 08:59 12/07/17 09:09 Colistimethate Sodium (Colistin *inhalation use only*) 75 mg Q12HR@10,22 INH 12/05/17 22:00 12/12/17 21:59 12/07/17 21:04 Dextrose 1,000 ml @ 100 mls/hr Q10H IV 12/07/17 12:00 01/05/18 11:59 12/07/17 12:28 Dextrose (Dextrose 50%) 25 ml STAT PRN IV Hypoglycemia 12/06/17 09:00 01/05/18 08:59 Dextrose (Dextrose 50%) 50 ml STAT PRN IV Hypoglycemia 12/06/17 09:00 01/05/18 08:59 Docusate Sodium (Colace) 100 mg TID GT 12/06/17 13:00 01/05/18 08:59 12/07/17 18:35 Heparin Sodium (Porcine) (Heparin 5000 units/ml) 5,000 units EVERY 12 HOURS SUBQ 12/05/17 21:00 01/04/18 20:59 12/07/17 20:40 Hydralazine HCl (Apresoline) 25 mg Q4H PRN ORAL systolic >160 12/06/17 12:45 01/05/18 12:44 12/07/17 16:48 Insulin Aspart (NovoLOG) EVERY 6 HOURS SUBQ 12/06/17 12:00 01/05/18 11:59 12/06/17 11:55 Meropenem 500 mg/ Sodium Chloride 55 ml @ 110 mls/hr EVERY 12 HOURS IVPB 12/05/17 21:00 12/10/17 20:59 12/07/17 20:39 Nitroglycerin (Ntg) 1 patch DAILY TDERMAL 12/06/17 13:00 01/05/18 12:59 12/07/17 09:10 Ondansetron HCl (Zofran) 4 mg Q4HR PRN IVP Nausea & Vomiting 12/05/17 20:15 01/04/18 20:14 Zinc Sulfate (Zinc Sulfate) 220 mg DAILY NG 12/06/17 09:00 01/05/18 08:59 12/07/17 09:09 Riki Mello MD Dec 07, 2017 21:54
[2017-12-08] VITALS: BP 161/93
[2017-12-08] MEDS: Albuterol/Ipratropium 3ml neb HHN SCH ×6 (02:49→23:06)
[2017-12-08 04:00] VITALS: BP 160/85
[2017-12-08 05:06] LABS: BASOPHILS % (AUTO) 0.6 % (0.0-2.0); EOSINOPHILS % (AUTO) 7.1 % (0.0-3.0); HEMATOCRIT 27.8 % (42.0-52.0); HEMOGLOBIN 8.3 G/DL (14.2-18.0); LYMPHOCYTES % (AUTO) 30.6 % (20.0-45.0); MEAN CORPUSCULAR VOLUME 86 FL (80-99); MONOCYTES % (AUTO) 6.7 % (1.0-10.0); PLATELET COUNT 292 K/UL (150-450); RED BLOOD COUNT 3.25 M/UL (4.70-6.10); RED CELL DISTRIBUTION WIDTH 18.1 % (11.6-14.8); WHITE BLOOD COUNT 9.9 K/UL (4.8-10.8)
[2017-12-08 05:24] LABS: ALANINE AMINOTRANSFERASE 12 U/L (12-78); ALBUMIN 1.8 G/DL (3.4-5.0); ALBUMIN/GLOBULIN RATIO 0.3 (1.0-2.7); ALKALINE PHOSPHATASE 67 U/L (46-116); ANION GAP 7 mmol/L (5-15); ASPARTATE AMINO TRANSFERASE 23 U/L (15-37); BILIRUBIN,TOTAL 0.4 MG/DL (0.2-1.0); BLOOD UREA NITROGEN 57 mg/dL (7-18); CALCIUM 9.4 MG/DL (8.5-10.1); CARBON DIOXIDE 32 MMOL/L (21-32); CHLORIDE 116 MMOL/L (98-107); CREATININE 2.5 MG/DL (0.55-1.30); PHOSPHORUS 2.8 MG/DL (2.5-4.9); POTASSIUM 3.4 MMOL/L (3.5-5.1); SODIUM 155 MMOL/L (136-145)
[2017-12-08] MEDS: HydrALAZINE 10mg Tab ORAL PRN (05:42)
[2017-12-08] MEDS: NovoLOG Insulin Flexpen SUBQ SCH ×4 (05:42→18:04)
--- NOTE | 2017-12-08 07:32 | Cardiology Progress Note ---
Assessment/Plan Assessment/Plan metabolic encephalopathy respiratory acidosis cad s/p cabg s/ avr aortic aneurysm s/p repair cri anemia hypernatremia recent gi bleed ? pulm infiltrative process tele sinus na still on the high side free water as per renal / pmd some [facility] data reviewed for this note bp is elevated, coreg will be increased recent [facility] echo showed moderate diastolic dysfunction ekg LBBB not new DNR per chart Subjective Cardiovascular: Denies: chest pain, lightheadedness Respiratory: Denies: shortness of breath Gastrointestinal/Abdominal: Denies: abdomen distended Genitourinary: Denies: burning Objective Last 24 Hour Vital Signs Date Time Temp Pulse Resp B/P (MAP) Pulse Ox O2 Delivery O2 Flow Rate FiO2 12/08/17 07:25 68 24 99 Nasal Cannula 2.0 28 12/08/17 05:42 160/85 12/08/17 04:00 98.4 72 20 160/85 (110) 99 98.4 12/08/17 04:00 3.0 12/08/17 04:00 Nasal Cannula 2.0 Nasal Cannula 2.0 12/08/17 04:00 76 12/08/17 02:56 79 22 99 Nasal Cannula 2.0 28 12/08/17 02:49 73 22 100 Nasal Cannula 2.0 28 12/08/17 00:00 69 12/08/17 00:00 Nasal Cannula 2.0 Nasal Cannula 2.0 12/08/17 00:00 97.6 67 18 161/93 (115) 100 97.6 12/07/17 22:54 64 24 100 Nasal Cannula 2.0 28 12/07/17 22:35 64 22 99 Nasal Cannula 2.0 28 12/07/17 21:11 63 24 100 Nasal Cannula 2.0 28 12/07/17 21:04 65 24 100 Nasal Cannula 2.0 28 12/07/17 20:00 Nasal Cannula 2.0 Nasal Cannula 2.0 12/07/17 20:00 3.0 12/07/17 20:00 63 12/07/17 19:49 97.6 65 22 154/86 (108) 100 97.6 12/07/17 19:14 63 24 100 Nasal Cannula 2.0 28 12/07/17 19:03 66 22 99 Nasal Cannula 2.0 28 12/07/17 18:36 63 166/97 12/07/17 18:36 63 166/97 12/07/17 16:48 166/97 12/07/17 16:00 4.0 12/07/17 16:00 97.8 66 18 166/97 (120) 99 97.8 12/07/17 16:00 63 12/07/17 16:00 Bi-pap Bi-pap 12/07/17 15:49 58 29 100 Nasal Cannula 2.0 12/07/17 15:39 96 27 99 Nasal Cannula 4.0 12/07/17 12:22 64 31 100 Nasal Cannula 4.0 12/07/17 12:11 64 31 100 Nasal Cannula 4.0 12/07/17 12:08 64 32 100 Nasal Cannula 4.0 12/07/17 12:00 97.8 63 18 160/90 (113) 100 97.8 12/07/17 12:00 72 12/07/17 12:00 Bi-pap Bi-pap 12/07/17 12:00 40 12/07/17 11:58 5 31 100 Nasal Cannula 4.0 12/07/17 09:10 157/92 12/07/17 09:09 70 157/92 12/07/17 09:09 70 157/92 12/07/17 08:56 65 35 100 Facial 40 12/07/17 08:00 40 12/07/17 08:00 Bi-pap Bi-pap 12/07/17 08:00 97.6 70 20 157/92 (113) 100 97.6 12/07/17 08:00 69 12/07/17 07:46 66 38 100 Bi-pap 40 12/07/17 07:36 74 37 100 Bi-pap 40 General Appearance: no apparent distress, other - lying falt Neck: supple Cardiovascular: normal rate, regular rhythm Respiratory/Chest: lungs clear Abdomen: normal bowel sounds, non tender, soft Extremities: no swelling Intake and Output 12/07/17 12/08/17 19:00 07:00 Intake Total 725 ml 910 ml Output Total 1200 ml 100 ml Balance -475 ml 810 ml Intake IV Total 725 ml 910 ml Output Urine Total 1200 ml 100 ml # Bowel Movements 3 2 Laboratory Tests Test 12/08/17 03:00 White Blood Count 9.9 K/UL (4.8-10.8) Red Blood Count 3.25 M/UL (4.70-6.10) L Hemoglobin 8.3 G/DL (14.2-18.0) L Hematocrit 27.8 % (42.0-52.0) L Mean Corpuscular Volume 86 FL (80-99) Mean Corpuscular Hemoglobin 25.6 PG (27.0-31.0) L Mean Corpuscular Hemoglobin Concent 29.9 G/DL (32.0-36.0) L Red Cell Distribution Width 18.1 % (11.6-14.8) H Platelet Count 292 K/UL (150-450) Mean Platelet Volume 6.3 FL (6.5-10.1) L Neutrophils (%) (Auto) 55.0 % (45.0-75.0) Lymphocytes (%) (Auto) 30.6 % (20.0-45.0) Monocytes (%) (Auto) 6.7 % (1.0-10.0) Eosinophils (%) (Auto) 7.1 % (0.0-3.0) H Basophils (%) (Auto) 0.6 % (0.0-2.0) Sodium Level 155 MMOL/L (136-145) H Potassium Level 3.4 MMOL/L (3.5-5.1) L Chloride Level 116 MMOL/L (98-107) H Carbon Dioxide Level 32 MMOL/L (21-32) Anion Gap 7 mmol/L (5-15) Blood Urea Nitrogen 57 mg/dL (7-18) H Creatinine 2.5 MG/DL (0.55-1.30) H Estimat Glomerular Filtration Rate mL/min (>60) Glucose Level 92 MG/DL (74-106) Uric Acid 10.2 MG/DL (2.6-7.2) H Calcium Level 9.4 MG/DL (8.5-10.1) Phosphorus Level 2.8 MG/DL (2.5-4.9) Magnesium Level 2.0 MG/DL (1.8-2.4) Total Bilirubin 0.4 MG/DL (0.2-1.0) Aspartate Amino Transf (AST/SGOT) 23 U/L (15-37) Alanine Aminotransferase (ALT/SGPT) 12 U/L (12-78) Alkaline Phosphatase 67 U/L (46-116) Troponin I 0.088 ng/mL (0.000-0.056) C-Reactive Protein, Quantitative 11.8 mg/dL (0.00-0.90) H Pro-B-Type Natriuretic Peptide 5839 pg/mL (0-125) H Total Protein 8.1 G/DL (6.4-8.2) Albumin 1.8 G/DL (3.4-5.0) L Globulin 6.3 g/dL Albumin/Globulin Ratio 0.3 (1.0-2.7) L Microbiology Date/Time Source Procedure Growth Status 12/05/17 15:10 Blood Blood Culture - Preliminary NO GROWTH AFTER 48 HOURS Resulted 12/05/17 14:55 Blood Blood Culture - Preliminary NO GROWTH AFTER 48 HOURS Resulted 12/06/17 00:00 Wound Gram Stain - Final Resulted 12/06/17 00:00 Wound Wound Culture - Preliminary Resulted Franko Freeman MD Dec 08, 2017 07:32
[2017-12-08 08:00] VITALS: BP 123/80
[2017-12-08] MEDS: Docusate 100mg/10ml Liq GT SCH ×3 (08:32→18:02)
[2017-12-08] MEDS: Zinc Sulfate 220mg cap NG SCH (08:32)
[2017-12-08] MEDS: Aspirin Baby 81mg NG SCH (08:33)
[2017-12-08] MEDS: Meropenem 500 MG in NS 55 ML IVPB SCH ×2 (08:34→21:24)
[2017-12-08] MEDS: Nitroglycerin Patch 0.4mg TDERMAL SCH (08:38)
[2017-12-08] MEDS: Carvedilol 25mg Tab ORAL SCH ×2 (08:39→21:23)
[2017-12-08] MEDS: Heparin 5000 units/ml inj SUBQ SCH ×2 (08:43→21:25)
[2017-12-08] MEDS: Allopurinol 100mg Tab ORAL SCH (08:48)
--- NOTE | 2017-12-08 09:00 | Nephrology Progress Note ---
Assessment/Plan Problem List: (1) CKD (chronic kidney disease) (2) Acute respiratory failure (3) Acute encephalopathy (4) UTI (urinary tract infection) (5) Anemia Assessment 1) Acute respiratory failure, Pneumonia and UTI (2) ATN (acute tubular necrosis), with underlying CKD (3) Anemia (4) UTI (urinary tract infection) (5) DNR (do not resuscitate) (6) Acute Encephalopathy, s/p Multiple strokes (7) PEG (8) HyperGlycemia Plan Pulm support Hydrate as possible - BS control K supplement avoid nephrotoxics Monitor renal parameters Hemodynamic support urine studies Per orders Subjective ROS Limited/Unobtainable: No Constitutional: Reports: malaise, weakness Objective Objective Last 24 Hour Vital Signs Date Time Temp Pulse Resp B/P (MAP) Pulse Ox O2 Delivery O2 Flow Rate FiO2 12/08/17 08:39 67 152/94 12/08/17 08:39 67 152/94 12/08/17 08:38 152/94 12/08/17 07:33 67 24 99 Nasal Cannula 2.0 28 12/08/17 07:25 68 24 99 Nasal Cannula 2.0 28 12/08/17 05:42 160/85 12/08/17 04:00 98.4 72 20 160/85 (110) 99 98.4 12/08/17 04:00 3.0 12/08/17 04:00 Nasal Cannula 2.0 Nasal Cannula 2.0 12/08/17 04:00 76 12/08/17 02:56 79 22 99 Nasal Cannula 2.0 28 12/08/17 02:49 73 22 100 Nasal Cannula 2.0 28 12/08/17 00:00 69 12/08/17 00:00 Nasal Cannula 2.0 Nasal Cannula 2.0 12/08/17 00:00 97.6 67 18 161/93 (115) 100 97.6 12/07/17 22:54 64 24 100 Nasal Cannula 2.0 28 12/07/17 22:35 64 22 99 Nasal Cannula 2.0 28 12/07/17 21:11 63 24 100 Nasal Cannula 2.0 28 12/07/17 21:04 65 24 100 Nasal Cannula 2.0 28 12/07/17 20:00 Nasal Cannula 2.0 Nasal Cannula 2.0 12/07/17 20:00 3.0 12/07/17 20:00 63 7/22/18 19:49 97.6 65 22 154/86 (108) 100 97.6 12/07/17 19:14 63 24 100 Nasal Cannula 2.0 28 12/07/17 19:03 66 22 99 Nasal Cannula 2.0 28 12/07/17 18:36 63 166/97 12/07/17 18:36 63 166/97 12/07/17 16:48 166/97 12/07/17 16:00 4.0 12/07/17 16:00 97.8 66 18 166/97 (120) 99 97.8 12/07/17 16:00 63 12/07/17 16:00 Bi-pap Bi-pap 12/07/17 15:49 58 29 100 Nasal Cannula 2.0 12/07/17 15:39 96 27 99 Nasal Cannula 4.0 12/07/17 12:22 64 31 100 Nasal Cannula 4.0 12/07/17 12:11 64 31 100 Nasal Cannula 4.0 12/07/17 12:08 64 32 100 Nasal Cannula 4.0 12/07/17 12:00 97.8 63 18 160/90 (113) 100 97.8 12/07/17 12:00 72 12/07/17 12:00 Bi-pap Bi-pap 12/07/17 12:00 40 12/07/17 11:58 5 31 100 Nasal Cannula 4.0 12/07/17 09:10 157/92 12/07/17 09:09 70 157/92 12/07/17 09:09 70 157/92 Intake and Output 12/07/17 12/08/17 19:00 07:00 Intake Total 725 ml 1010 ml Output Total 1200 ml 100 ml Balance -475 ml 910 ml Intake IV Total 725 ml 1010 ml Output Urine Total 1200 ml 100 ml # Bowel Movements 3 2 Laboratory Tests 12/08/17 03:00: White Blood Count 9.9, Red Blood Count 3.25L, Hemoglobin 8.3L, Hematocrit 27.8L , Mean Corpuscular Volume 86, Mean Corpuscular Hemoglobin 25.6L, Mean Corpuscular Hemoglobin Concent 29.9L, Red Cell Distribution Width 18.1H, Platelet Count 292, Mean Platelet Volume 6.3L, Neutrophils (%) (Auto) 55.0, Lymphocytes (%) (Auto) 30.6, Monocytes (%) (Auto) 6.7, Eosinophils (%) (Auto) 7.1H, Basophils (%) (Auto) 0.6, Sodium Level 155H, Potassium Level 3.4L, Chloride Level 116H, Carbon Dioxide Level 32, Anion Gap 7, Blood Urea Nitrogen 57H, Creatinine 2.5H, Estimat Glomerular Filtration Rate , Glucose Level 92, Uric Acid 10.2H, Calcium Level 9.4, Phosphorus Level 2.8, Magnesium Level 2.0, Total Bilirubin 0.4, Aspartate Amino Transf (AST/SGOT) 23, Alanine Aminotransferase (ALT/SGPT) 12, Alkaline Phosphatase 67, Troponin I 0.088H, C- Reactive Protein, Quantitative 11.8H, Pro-B-Type Natriuretic Peptide 5839H, Total Protein 8.1, Albumin 1.8L, Globulin 6.3, Albumin/Globulin Ratio 0.3L Height (Feet): 6 Height (Inches): 0.00 Weight (Pounds): 187 General Appearance: no apparent distress EENT: other - off BIPAP now Cardiovascular: normal rate Respiratory/Chest: decreased breath sounds Abdomen: soft, distended Mukul Duarte MD Dec 08, 2017 09:00
[2017-12-08] MEDS ORDERED: NS Irrig 1000ml ONE (10:57)
[2017-12-08] MEDS ORDERED: Sterile Water Irrig 1000ml IRRIG ONE (10:57)
[2017-12-08] MEDS ORDERED: Tubing IV Secondary IV ONE (10:57)
[2017-12-08] MEDS ORDERED: D5W 275ml ONE (10:57)
--- NOTE | 2017-12-08 11:29 | History & Physical ---
History and Physical History & Physicial full note dictated Date of service 12/05/2017 pt seen in ER. STACI CHACON Dec 08, 2017 11:29
--- NOTE | 2017-12-08 11:29 | Internal Med Progress Note ---
Subjective Date of Service: Dec 08, 2017 Physician Name Staci Chacon Attending Physician Staci Chacon Current Medications Medications (Trade) Dose Ordered Sig/Keira Route PRN Reason Start Time Stop Time Status Last Admin Dose Admin Acetaminophen (Tylenol) 650 mg Q6H PRN ORAL Mild Pain/Temp > 101 12/05/17 20:15 01/04/18 20:14 12/06/17 01:56 Albuterol/ Ipratropium (Albuterol/ Ipratropium) 3 ml Q4HRT HHN 12/05/17 23:00 12/10/17 22:59 12/08/17 07:23 Allopurinol (Zyloprim) 200 mg DAILY ORAL 12/08/17 09:00 01/07/18 08:59 12/08/17 08:48 Amlodipine Besylate (Norvasc) 5 mg BID GT 12/06/17 09:00 01/05/18 08:59 12/08/17 08:39 Aspirin (ASA) 81 mg DAILY NG 12/06/17 09:00 01/05/18 08:59 12/08/17 08:33 Bisacodyl (Dulcolax) 10 mg DAILYPRN PRN RECTAL Constipation 12/05/17 21:15 01/04/18 21:14 Carvedilol (Coreg) 25 mg Q12HR ORAL 12/08/17 09:00 01/07/18 08:59 12/08/17 08:39 Clopidogrel Bisulfate (Plavix) 75 mg DAILY NG 12/06/17 09:00 01/05/18 08:59 12/08/17 08:33 Colistimethate Sodium (Colistin *inhalation use only*) 75 mg Q12HR@10,22 INH 12/05/17 22:00 12/12/17 21:59 12/07/17 21:04 Dextrose 1,000 ml @ 100 mls/hr Q10H IV 12/07/17 12:00 01/05/18 11:59 12/08/17 08:23 Dextrose (Dextrose 50%) 25 ml STAT PRN IV Hypoglycemia 12/06/17 09:00 01/05/18 08:59 Dextrose (Dextrose 50%) 50 ml STAT PRN IV Hypoglycemia 12/06/17 09:00 01/05/18 08:59 Docusate Sodium (Colace) 100 mg TID GT 12/06/17 13:00 01/05/18 08:59 12/08/17 08:32 Heparin Sodium (Porcine) (Heparin 5000 units/ml) 5,000 units EVERY 12 HOURS SUBQ 12/05/17 21:00 01/04/18 20:59 12/08/17 08:43 Hydralazine HCl (Apresoline) 25 mg Q4H PRN ORAL systolic >160 12/06/17 12:45 01/05/18 12:44 12/08/17 05:42 Insulin Aspart (NovoLOG) EVERY 6 HOURS SUBQ 12/06/17 12:00 01/05/18 11:59 12/06/17 11:55 Meropenem 500 mg/ Sodium Chloride 55 ml @ 110 mls/hr EVERY 12 HOURS IVPB 12/05/17 21:00 12/10/17 20:59 12/08/17 08:34 Nitroglycerin (Ntg) 1 patch DAILY TDERMAL 12/06/17 13:00 01/05/18 12:59 12/08/17 08:38 Ondansetron HCl (Zofran) 4 mg Q4HR PRN IVP Nausea & Vomiting 12/05/17 20:15 01/04/18 20:14 Zinc Sulfate (Zinc Sulfate) 220 mg DAILY NG 12/06/17 09:00 01/05/18 08:59 12/08/17 08:32 Allergies: Coded Allergies: No Known Allergies (Verified , 01/02/09) ROS Limited/Unobtainable: Yes - non verbal Objective Last Vital Signs Date Time Temp Pulse Resp B/P (MAP) Pulse Ox O2 Delivery O2 Flow Rate FiO2 12/08/17 08:39 67 152/94 12/08/17 07:33 24 99 Nasal Cannula 2.0 28 12/08/17 04:00 98.4 98.4 General Appearance: alert Neck: non-tender, supple, normal inspection Cardiovascular: normal rate, regularly irregular, systolic murmur Respiratory/Chest: normal breath sounds, no respiratory distress, rhonchi - left Abdomen: normal bowel sounds, non tender, soft, no organomegaly, no mass, other - +PEG Genitourinary/Rectal: normal genital exam, other - elder Edema: other - no edema Neurologic: aphasia Skin: warm/dry Laboratory Tests Test 12/08/17 03:00 White Blood Count 9.9 K/UL (4.8-10.8) Red Blood Count 3.25 M/UL (4.70-6.10) L Hemoglobin 8.3 G/DL (14.2-18.0) L Hematocrit 27.8 % (42.0-52.0) L Mean Corpuscular Volume 86 FL (80-99) Mean Corpuscular Hemoglobin 25.6 PG (27.0-31.0) L Mean Corpuscular Hemoglobin Concent 29.9 G/DL (32.0-36.0) L Red Cell Distribution Width 18.1 % (11.6-14.8) H Platelet Count 292 K/UL (150-450) Mean Platelet Volume 6.3 FL (6.5-10.1) L Neutrophils (%) (Auto) 55.0 % (45.0-75.0) Lymphocytes (%) (Auto) 30.6 % (20.0-45.0) Monocytes (%) (Auto) 6.7 % (1.0-10.0) Eosinophils (%) (Auto) 7.1 % (0.0-3.0) H Basophils (%) (Auto) 0.6 % (0.0-2.0) Sodium Level 155 MMOL/L (136-145) H Potassium Level 3.4 MMOL/L (3.5-5.1) L Chloride Level 116 MMOL/L (98-107) H Carbon Dioxide Level 32 MMOL/L (21-32) Anion Gap 7 mmol/L (5-15) Blood Urea Nitrogen 57 mg/dL (7-18) H Creatinine 2.5 MG/DL (0.55-1.30) H Estimat Glomerular Filtration Rate mL/min (>60) Glucose Level 92 MG/DL (74-106) Uric Acid 10.2 MG/DL (2.6-7.2) H Calcium Level 9.4 MG/DL (8.5-10.1) Phosphorus Level 2.8 MG/DL (2.5-4.9) Magnesium Level 2.0 MG/DL (1.8-2.4) Total Bilirubin 0.4 MG/DL (0.2-1.0) Aspartate Amino Transf (AST/SGOT) 23 U/L (15-37) Alanine Aminotransferase (ALT/SGPT) 12 U/L (12-78) Alkaline Phosphatase 67 U/L (46-116) Troponin I 0.088 ng/mL (0.000-0.056) C-Reactive Protein, Quantitative 11.8 mg/dL (0.00-0.90) H Pro-B-Type Natriuretic Peptide 5839 pg/mL (0-125) H Total Protein 8.1 G/DL (6.4-8.2) Albumin 1.8 G/DL (3.4-5.0) L Globulin 6.3 g/dL Albumin/Globulin Ratio 0.3 (1.0-2.7) L Microbiology Date/Time Source Procedure Growth Status 12/05/17 15:10 Blood Blood Culture - Preliminary NO GROWTH AFTER 48 HOURS Resulted 12/05/17 14:55 Blood Blood Culture - Preliminary NO GROWTH AFTER 48 HOURS Resulted 12/06/17 00:00 Wound Gram Stain - Final Resulted 12/06/17 00:00 Wound Culture - Preliminary Gram Negative Bacillus 1 Resulted Intake and Output 12/07/17 12/08/17 19:00 07:00 Intake Total 725 ml 1010 ml Output Total 1200 ml 100 ml Balance -475 ml 910 ml Intake IV Total 725 ml 1010 ml Output Urine Total 1200 ml 100 ml # Bowel Movements 3 2 Assessment/Plan Status: stable, progressing Assessment/Plan IMPRESSION: 1. Acute hypercapnic respiratory failure. 2. Acute on chronic diastolic heart failure. 3. Health facility acquired pneumonia, rule out aspiration pneumonia. 4. Acute on chronic renal failure. 5. Dehydration. 6. Hypernatremia. 7. History of cerebrovascular accident with right hemiplegia. 8. Dysphagia, status post gastrostomy tube placement. 9. Hypoxemia. 10. Acute toxic and metabolic encephalopathy. 11. Severe protein-calorie malnutrition. 12. Elevated troponin, likely due to demand ischemia. PLAN: 1. Admit to step-down unit. 2. BiPAP. 3. Pulmonary, ID, and Renal f/u 4. IV fluids. 5. Aspiration precaution. 6. Hold feeding while patient on BiPAP. 7. ABG as needed 8. Pulmonary nebulizer. 9. Diuresis per Cardiology. 10. Monitor sodium. 11. Maximize nutritional status. The patient has an albumin of 2. We will resume diet after the respiratory status improves with aspiration precaution. 12. Blood pressure control. 13. Follow up cultures. 14. Accu-Chek. 15. Continue with aspirin and Plavix. 16. Further recommendation to follow pending the patient's response to above measures and input by senior analytic consultant . His Code Status is DNR/DNI. STACI CHACON Dec 08, 2017 11:29
[2017-12-08] MEDS: Colistin for inhalation INH SCH ×2 (11:55→23:06)
[2017-12-08 12:00] VITALS: BP 134/86
--- NOTE | 2017-12-08 12:53 | Infectious Diseases Prog Note ---
Assessment/Plan Assessment/Plan A; Sepsis Recent pneumonia Hypercapnic respiratory failure Hypernatremia Chronic renal failure Anemia Advanced dementia P; Continue Colistin & Meropenem Subjective ROS Limited/Unobtainable: Yes Allergies: Coded Allergies: No Known Allergies (Verified , 01/02/09) Objective Vital Signs Last 24 Hour Vital Signs Date Time Temp Pulse Resp B/P (MAP) Pulse Ox O2 Delivery O2 Flow Rate FiO2 12/08/17 12:15 66 24 99 Nasal Cannula 2.0 28 12/08/17 12:05 71 24 98 Nasal Cannula 2.0 28 12/08/17 12:03 69 24 100 Nasal Cannula 2.0 28 12/08/17 12:00 98.2 87 24 134/86 (102) 100 98.2 12/08/17 12:00 67 24 98 Nasal Cannula 2.0 28 12/08/17 12:00 Nasal Cannula 2.0 Nasal Cannula 2.0 12/08/17 08:39 67 152/94 12/08/17 08:39 67 152/94 12/08/17 08:38 152/94 12/08/17 08:00 97.7 65 26 123/80 (94) 97 97.7 12/08/17 08:00 Nasal Cannula 2.0 Nasal Cannula 2.0 12/08/17 08:00 66 12/08/17 07:33 67 24 99 Nasal Cannula 2.0 28 12/08/17 07:25 68 24 99 Nasal Cannula 2.0 28 12/08/17 05:42 160/85 12/08/17 04:00 98.4 72 20 160/85 (110) 99 98.4 12/08/17 04:00 3.0 12/08/17 04:00 Nasal Cannula 2.0 Nasal Cannula 2.0 12/08/17 04:00 76 12/08/17 02:56 79 22 99 Nasal Cannula 2.0 28 12/08/17 02:49 73 22 100 Nasal Cannula 2.0 28 12/08/17 00:00 69 12/08/17 00:00 Nasal Cannula 2.0 Nasal Cannula 2.0 12/08/17 00:00 97.6 67 18 161/93 (115) 100 97.6 12/07/17 22:54 64 24 100 Nasal Cannula 2.0 28 12/07/17 22:35 64 22 99 Nasal Cannula 2.0 28 12/07/17 21:11 63 24 100 Nasal Cannula 2.0 28 12/07/17 21:04 65 24 100 Nasal Cannula 2.0 28 12/07/17 20:00 Nasal Cannula 2.0 Nasal Cannula 2.0 12/07/17 20:00 3.0 12/07/17 20:00 63 12/07/17 19:49 97.6 65 22 154/86 (108) 100 97.6 12/07/17 19:14 63 24 100 Nasal Cannula 2.0 28 12/07/17 19:03 66 22 99 Nasal Cannula 2.0 28 12/07/17 18:36 63 166/97 12/07/17 18:36 63 166/97 12/07/17 16:48 166/97 12/07/17 16:00 4.0 12/07/17 16:00 97.8 66 18 166/97 (120) 99 97.8 12/07/17 16:00 63 12/07/17 16:00 Bi-pap Bi-pap 12/07/17 15:49 58 29 100 Nasal Cannula 2.0 12/07/17 15:39 96 27 99 Nasal Cannula 4.0 Height (Feet): 6 Height (Inches): 0.00 Weight (Pounds): 187 General Appearance: no acute distress HEENT: mucous membranes moist, other - O2 by nasal cannula Respiratory/Chest: lungs clear Cardiovascular: normal rate Abdomen: soft, non tender, other - GT in place Extremities: no edema Neurologic/Psychiatric: aphasia, other - barely opens eyes Microbiology Date/Time Source Procedure Growth Status 12/05/17 15:10 Blood Blood Culture - Preliminary NO GROWTH AFTER 48 HOURS Resulted 12/05/17 14:55 Blood Blood Culture - Preliminary NO GROWTH AFTER 48 HOURS Resulted 12/06/17 00:00 Wound Gram Stain - Final Resulted 12/06/17 00:00 Wound Culture - Preliminary Gram Negative Bacillus 1 Resulted Laboratory Tests Test 12/08/17 03:00 White Blood Count 9.9 K/UL (4.8-10.8) Red Blood Count 3.25 M/UL (4.70-6.10) L Hemoglobin 8.3 G/DL (14.2-18.0) L Hematocrit 27.8 % (42.0-52.0) L Mean Corpuscular Volume 86 FL (80-99) Mean Corpuscular Hemoglobin 25.6 PG (27.0-31.0) L Mean Corpuscular Hemoglobin Concent 29.9 G/DL (32.0-36.0) L Red Cell Distribution Width 18.1 % (11.6-14.8) H Platelet Count 292 K/UL (150-450) Mean Platelet Volume 6.3 FL (6.5-10.1) L Neutrophils (%) (Auto) 55.0 % (45.0-75.0) Lymphocytes (%) (Auto) 30.6 % (20.0-45.0) Monocytes (%) (Auto) 6.7 % (1.0-10.0) Eosinophils (%) (Auto) 7.1 % (0.0-3.0) H Basophils (%) (Auto) 0.6 % (0.0-2.0) Sodium Level 155 MMOL/L (136-145) H Potassium Level 3.4 MMOL/L (3.5-5.1) L Chloride Level 116 MMOL/L (98-107) H Carbon Dioxide Level 32 MMOL/L (21-32) Anion Gap 7 mmol/L (5-15) Blood Urea Nitrogen 57 mg/dL (7-18) H Creatinine 2.5 MG/DL (0.55-1.30) H Estimat Glomerular Filtration Rate mL/min (>60) Glucose Level 92 MG/DL (74-106) Uric Acid 10.2 MG/DL (2.6-7.2) H Calcium Level 9.4 MG/DL (8.5-10.1) Phosphorus Level 2.8 MG/DL (2.5-4.9) Magnesium Level 2.0 MG/DL (1.8-2.4) Total Bilirubin 0.4 MG/DL (0.2-1.0) Aspartate Amino Transf (AST/SGOT) 23 U/L (15-37) Alanine Aminotransferase (ALT/SGPT) 12 U/L (12-78) Alkaline Phosphatase 67 U/L (46-116) Troponin I 0.088 ng/mL (0.000-0.056) C-Reactive Protein, Quantitative 11.8 mg/dL (0.00-0.90) H Pro-B-Type Natriuretic Peptide 5839 pg/mL (0-125) H Total Protein 8.1 G/DL (6.4-8.2) Albumin 1.8 G/DL (3.4-5.0) L Globulin 6.3 g/dL Albumin/Globulin Ratio 0.3 (1.0-2.7) L Current Medications Medications (Trade) Dose Ordered Sig/Keira Route PRN Reason Start Time Stop Time Status Last Admin Dose Admin Acetaminophen (Tylenol) 650 mg Q6H PRN ORAL Mild Pain/Temp > 101 12/05/17 20:15 01/04/18 20:14 12/06/17 01:56 Albuterol/ Ipratropium (Albuterol/ Ipratropium) 3 ml Q4HRT HHN 12/05/17 23:00 12/10/17 22:59 12/08/17 11:55 Allopurinol (Zyloprim) 200 mg DAILY ORAL 12/08/17 09:00 01/07/18 08:59 12/08/17 08:48 Amlodipine Besylate (Norvasc) 5 mg BID GT 12/06/17 09:00 01/05/18 08:59 12/08/17 08:39 Aspirin (ASA) 81 mg DAILY NG 12/06/17 09:00 01/05/18 08:59 12/08/17 08:33 Bisacodyl (Dulcolax) 10 mg DAILYPRN PRN RECTAL Constipation 12/05/17 21:15 01/04/18 21:14 Carvedilol (Coreg) 25 mg Q12HR ORAL 12/08/17 09:00 01/07/18 08:59 12/08/17 08:39 Clopidogrel Bisulfate (Plavix) 75 mg DAILY NG 12/06/17 09:00 01/05/18 08:59 12/08/17 08:33 Colistimethate Sodium (Colistin *inhalation use only*) 75 mg Q12HR@10,22 INH 12/05/17 22:00 12/12/17 21:59 12/08/17 11:55 Dextrose 1,000 ml @ 100 mls/hr Q10H IV 12/07/17 12:00 01/05/18 11:59 12/08/17 08:23 Dextrose (Dextrose 50%) 25 ml STAT PRN IV Hypoglycemia 12/06/17 09:00 01/05/18 08:59 Dextrose (Dextrose 50%) 50 ml STAT PRN IV Hypoglycemia 12/06/17 09:00 01/05/18 08:59 Docusate Sodium (Colace) 100 mg TID GT 12/06/17 13:00 01/05/18 08:59 12/08/17 08:32 Heparin Sodium (Porcine) (Heparin 5000 units/ml) 5,000 units EVERY 12 HOURS SUBQ 12/05/17 21:00 01/04/18 20:59 12/08/17 08:43 Hydralazine HCl (Apresoline) 25 mg Q4H PRN ORAL systolic >160 12/06/17 12:45 01/05/18 12:44 12/08/17 05:42 Insulin Aspart (NovoLOG) EVERY 6 HOURS SUBQ 12/06/17 12:00 01/05/18 11:59 12/08/17 11:49 Meropenem 500 mg/ Sodium Chloride 55 ml @ 110 mls/hr EVERY 12 HOURS IVPB 12/05/17 21:00 12/10/17 20:59 12/08/17 08:34 Nitroglycerin (Ntg) 1 patch DAILY TDERMAL 12/06/17 13:00 01/05/18 12:59 12/08/17 08:38 Ondansetron HCl (Zofran) 4 mg Q4HR PRN IVP Nausea & Vomiting 12/05/17 20:15 01/04/18 20:14 Zinc Sulfate (Zinc Sulfate) 220 mg DAILY NG 12/06/17 09:00 01/05/18 08:59 12/08/17 08:32 Donnell Murray MD Dec 08, 2017 12:53
[2017-12-08 16:00] VITALS: BP 149/79
--- NOTE | 2017-12-08 18:54 | Pulmonology Progress Note ---
Assessment/Plan Problems: (1) Chronic respiratory failure with hypercapnia (2) HCAP (healthcare-associated pneumonia) (3) Respiratory distress (4) Feeding by G-tube (5) Encephalopathy due to infection (6) CKD (chronic kidney disease) (7) CVA (cerebral vascular accident) Assessment/Plan -Optimize pulmonary function/mobilize as tolerated -Titrate down FiO2 to keep SaO2 > 90% -BiPAP PRN and QHS -RTC and PRN HHN's + CPT -Abx per ID -Monitor volumes and renal function, replete free water -GTF's as tolerated when off BiPAP -DVT Px: Hep SQ -DNAR/DNI -D/W family, tracheostomy not with goals of care Subjective Allergies: Coded Allergies: No Known Allergies (Verified , 01/02/09) Subjective Events reviewed AFVSS, on 2L, on BiPAP O/N + cough, + congestion, no F/C, TF's held D/W family & trach not within GOC Objective Last 24 Hour Vital Signs Date Time Temp Pulse Resp B/P (MAP) Pulse Ox O2 Delivery O2 Flow Rate FiO2 12/08/17 18:03 65 149/79 12/08/17 16:00 Nasal Cannula 2.0 Nasal Cannula 2.0 12/08/17 16:00 97.0 65 26 149/79 (102) 99 97.0 12/08/17 15:00 68 24 99 Nasal Cannula 2.0 28 12/08/17 15:00 3 20 98 Nasal Cannula 2.0 28 12/08/17 12:15 66 24 99 Nasal Cannula 2.0 28 12/08/17 12:05 71 24 98 Nasal Cannula 2.0 28 12/08/17 12:03 69 24 100 Nasal Cannula 2.0 28 12/08/17 12:00 98.2 87 24 134/86 (102) 100 98.2 12/08/17 12:00 67 24 98 Nasal Cannula 2.0 28 12/08/17 12:00 Nasal Cannula 2.0 Nasal Cannula 2.0 12/08/17 12:00 66 12/08/17 08:39 67 152/94 12/08/17 08:39 67 152/94 12/08/17 08:38 152/94 12/08/17 08:00 97.7 65 26 123/80 (94) 97 97.7 12/08/17 08:00 Nasal Cannula 2.0 Nasal Cannula 2.0 12/08/17 08:00 66 12/08/17 07:33 67 24 99 Nasal Cannula 2.0 28 12/08/17 07:25 68 24 99 Nasal Cannula 2.0 28 12/08/17 05:42 160/85 12/08/17 04:00 98.4 72 20 160/85 (110) 99 98.4 12/08/17 04:00 3.0 12/08/17 04:00 Nasal Cannula 2.0 Nasal Cannula 2.0 12/08/17 04:00 76 12/08/17 02:56 79 22 99 Nasal Cannula 2.0 28 12/08/17 02:49 73 22 100 Nasal Cannula 2.0 28 12/08/17 00:00 69 12/08/17 00:00 Nasal Cannula 2.0 Nasal Cannula 2.0 12/08/17 00:00 97.6 67 18 161/93 (115) 100 97.6 12/07/17 22:54 64 24 100 Nasal Cannula 2.0 28 12/07/17 22:35 64 22 99 Nasal Cannula 2.0 28 12/07/17 21:11 63 24 100 Nasal Cannula 2.0 28 12/07/17 21:04 65 24 100 Nasal Cannula 2.0 28 12/07/17 20:00 Nasal Cannula 2.0 Nasal Cannula 2.0 12/07/17 20:00 3.0 12/07/17 20:00 63 12/07/17 19:49 97.6 65 22 154/86 (108) 100 97.6 12/07/17 19:14 63 24 100 Nasal Cannula 2.0 28 12/07/17 19:03 66 22 99 Nasal Cannula 2.0 28 Intake and Output 12/07/17 12/08/17 19:00 07:00 Intake Total 725 ml 1010 ml Output Total 1200 ml 100 ml Balance -475 ml 910 ml Intake IV Total 725 ml 1010 ml Output Urine Total 1200 ml 100 ml # Bowel Movements 3 2 General Appearance: no acute distress, cachetic - non verbal HEENT: normocephalic, atraumatic, anicteric, mucous membranes moist Respiratory/Chest: rhonchi - scattered Cardiovascular: normal peripheral pulses, normal rate, regular rhythm Abdomen: normal bowel sounds, soft, non tender, no organomegaly, non distended , other - GT CDI Extremities: no cyanosis, no clubbing, no edema Microbiology Date/Time Source Procedure Growth Status 12/06/17 00:00 Wound Gram Stain - Final Resulted 12/06/17 00:00 Wound Culture - Preliminary Gram Negative Bacillus 1 Resulted Laboratory Tests 12/08/17 03:00: White Blood Count 9.9, Red Blood Count 3.25L, Hemoglobin 8.3L, Hematocrit 27.8L , Mean Corpuscular Volume 86, Mean Corpuscular Hemoglobin 25.6L, Mean Corpuscular Hemoglobin Concent 29.9L, Red Cell Distribution Width 18.1H, Platelet Count 292, Mean Platelet Volume 6.3L, Neutrophils (%) (Auto) 55.0, Lymphocytes (%) (Auto) 30.6, Monocytes (%) (Auto) 6.7, Eosinophils (%) (Auto) 7.1H, Basophils (%) (Auto) 0.6, Sodium Level 155H, Potassium Level 3.4L, Chloride Level 116H, Carbon Dioxide Level 32, Anion Gap 7, Blood Urea Nitrogen 57H, Creatinine 2.5H, Estimat Glomerular Filtration Rate , Glucose Level 92, Uric Acid 10.2H, Calcium Level 9.4, Phosphorus Level 2.8, Magnesium Level 2.0, Total Bilirubin 0.4, Aspartate Amino Transf (AST/SGOT) 23, Alanine Aminotransferase (ALT/SGPT) 12, Alkaline Phosphatase 67, Troponin I 0.088H, C- Reactive Protein, Quantitative 11.8H, Pro-B-Type Natriuretic Peptide 5839H, Total Protein 8.1, Albumin 1.8L, Globulin 6.3, Albumin/Globulin Ratio 0.3L Current Medications Medications (Trade) Dose Ordered Sig/Keira Route PRN Reason Start Time Stop Time Status Last Admin Dose Admin Acetaminophen (Tylenol) 650 mg Q6H PRN ORAL Mild Pain/Temp > 101 12/05/17 20:15 01/04/18 20:14 12/06/17 01:56 Albuterol/ Ipratropium (Albuterol/ Ipratropium) 3 ml Q4HRT HHN 12/05/17 23:00 12/10/17 22:59 12/08/17 15:53 Allopurinol (Zyloprim) 200 mg DAILY ORAL 12/08/17 09:00 01/07/18 08:59 12/08/17 08:48 Amlodipine Besylate (Norvasc) 5 mg BID GT 12/06/17 09:00 01/05/18 08:59 12/08/17 18:03 Aspirin (ASA) 81 mg DAILY NG 12/06/17 09:00 01/05/18 08:59 12/08/17 08:33 Bisacodyl (Dulcolax) 10 mg DAILYPRN PRN RECTAL Constipation 12/05/17 21:15 01/04/18 21:14 Carvedilol (Coreg) 25 mg Q12HR ORAL 12/08/17 09:00 01/07/18 08:59 12/08/17 08:39 Clopidogrel Bisulfate (Plavix) 75 mg DAILY NG 12/06/17 09:00 01/05/18 08:59 12/08/17 08:33 Colistimethate Sodium (Colistin *inhalation use only*) 75 mg Q12HR@10,22 INH 12/05/17 22:00 12/12/17 21:59 12/08/17 11:55 Dextrose 1,000 ml @ 100 mls/hr Q10H IV 12/07/17 12:00 01/05/18 11:59 12/08/17 08:23 Dextrose (Dextrose 50%) 25 ml STAT PRN IV Hypoglycemia 12/06/17 09:00 01/05/18 08:59 Dextrose (Dextrose 50%) 50 ml STAT PRN IV Hypoglycemia 12/06/17 09:00 01/05/18 08:59 Docusate Sodium (Colace) 100 mg TID GT 12/06/17 13:00 01/05/18 08:59 12/08/17 18:02 Heparin Sodium (Porcine) (Heparin 5000 units/ml) 5,000 units EVERY 12 HOURS SUBQ 12/05/17 21:00 01/04/18 20:59 12/08/17 08:43 Hydralazine HCl (Apresoline) 25 mg Q4H PRN ORAL systolic >160 12/06/17 12:45 01/05/18 12:44 12/08/17 05:42 Insulin Aspart (NovoLOG) EVERY 6 HOURS SUBQ 12/06/17 12:00 01/05/18 11:59 12/08/17 18:04 Meropenem 500 mg/ Sodium Chloride 55 ml @ 110 mls/hr EVERY 12 HOURS IVPB 12/05/17 21:00 12/10/17 20:59 12/08/17 08:34 Nitroglycerin (Ntg) 1 patch DAILY TDERMAL 12/06/17 13:00 01/05/18 12:59 12/08/17 08:38 Ondansetron HCl (Zofran) 4 mg Q4HR PRN IVP Nausea & Vomiting 12/05/17 20:15 01/04/18 20:14 Zinc Sulfate (Zinc Sulfate) 220 mg DAILY NG 12/06/17 09:00 01/05/18 08:59 12/08/17 08:32 Sagar Melvin MD Dec 08, 2017 18:54
[2017-12-08 20:00] VITALS: BP 135/92
--- NOTE | 2017-12-08 21:00 | History and Physical Report ---
DATE OF ADMISSION: 12/05/2017 The patient is seen in the emergency room. CHIEF COMPLAINT: [facility]oxemia from jail. HISTORY OF PRESENT ILLNESS: This is an 87-year-old gentleman with a history of diastolic heart failure, hypercapnic respiratory failure, chronic kidney disease, stage 3-4, dysphagia due to stroke, status post gastrostomy tube with right-sided hemiplegia, who was recently discharged from [facility] the day earlier after the patient had the gastrostomy tube replaced. The patient was noted to have hypoxemia with O2 saturation in the 80s. The patient called 911 and brought into [facility]. The patient required BiPAP at night. It is not clear to me how the patient rebound back to the hospital within 24 hours on a number of occasions. The patient stabilizes in the hospital usually and as soon as he goes to the jail, within 24 to 48 hours, hypoxemia and desaturation ending in transfer to the hospital. The patient cannot give any information. All the information was gathered through the chart. Upon evaluation in the emergency room, the patient was placed on a BiPAP, started on the IV fluids with hypotension. The patient's status is DNR/DNI. The patient was stabilized, started on broad-spectrum antibiotics, pancultured, and transferred to step-down unit. PAST MEDICAL HISTORY: As above, 1. In addition, history of hypertension. 2. Diabetes. 3. Organic brain syndrome. 4. Bed-bound. PAST SURGICAL HISTORY: Gastrostomy tube placement, history of Matson catheter chronically due to urinary retention. MEDICATIONS FROM [facility]: Please refer to medication reconciliation. I have reviewed at length. SOCIAL HISTORY: The patient has 18 children. Nonsmoker at the present time. No alcohol. Very supportive family. DNR/DNI. REVIEW OF SYSTEMS: Cannot be obtained because of his chronic illness and aphasia and dementia. PHYSICAL EXAMINATION: GENERAL: The patient lying in bed, on BiPAP, in some respiratory distress. Rhonchi bilaterally. VITAL SIGNS: On admission showed a pulse of 74, respirations 18, blood pressure 144/93, and pulse ox 100% on 15 liters non-rebreather. The patient on BiPAP 15/7 with O2 saturation 90%-94%. HEENT: Eyes are anicteric. NECK: Supple. No JVD. No carotid bruits. CARDIAC: S1 and S2, tachycardic. Systolic ejection fraction murmur 2/6 at the left sternal border. LUNGS: Bilateral rhonchi. Decreased breath sounds at bases. ABDOMEN: Soft, nontender, and nondistended. No guarding. No rebound. He has a gastrostomy tube in place. EXTREMITIES: No edema or cyanosis. NEUROLOGIC: The patient does not follow commands, nonverbal. The patient has a chronic right hemiparesis. LABORATORY AND DIAGNOSTIC DATA: On admission, white count 17,000, hemoglobin 9.6, hematocrit 32.9, and platelets are 199. Urine has 3+ protein, 5+ occult blood, leukocyte esterase 1+, wbc's 2 to 4, and urine bacteria few. Sodium 158, potassium 3.5, chloride 118, bicarbonate 34, BUN 71, creatinine 2.5, and glucose 182. Lactic acid is 1.2. Calcium 9.8. Total bilirubin 0.2. AST 29, ALT 16, and alkaline phosphatase 97. CK 59. Troponin 0.358. Albumin 2. Lipase 206. Blood gas, pH of 7.28, pCO2 of 74.6, bicarbonate of 34.3, and oxygenation of 98.8%. Imaging, chest x-ray on admission revealed bilateral interstitial and airspace edema, pleural effusion. EKG, normal sinus rhythm. No ST-segment elevation or depression. Nonspecific ST changes. IMPRESSION: 1. Acute hypercapnic respiratory failure. 2. Acute on chronic diastolic heart failure. 3. Health facility acquired pneumonia, rule out aspiration pneumonia. 4. Acute on chronic renal failure. 5. Dehydration. 6. Hypernatremia. 7. History of cerebrovascular accident with right hemiplegia. 8. Dysphagia, status post gastrostomy tube placement. 9. Hypoxemia. 10. Acute toxic and metabolic encephalopathy. 11. Severe protein-calorie malnutrition. 12. Elevated troponin, likely due to demand ischemia. PLAN: 1. Admit to step-down unit. 2. BiPAP. 3. Pulmonary, ID, and Renal consult. 4. IV fluids. 5. Aspiration precaution. 6. Hold feeding while patient on BiPAP. 7. ABG and serial EKG and troponin. 8. Pulmonary nebulizer. 9. Diuresis per Cardiology. 10. Monitor sodium. 11. Maximize nutritional status. The patient has an albumin of 2. We will resume diet after the respiratory status improves with aspiration precaution. 12. Resume jail medications. 13. Blood pressure control. 14. Follow up cultures. 15. Accu-Chek. 16. Continue with aspirin and Plavix. 17. Further recommendation to follow pending the patient's response to above measures and input by business sales consultant . His Code Status is DNR/DNI. 18. Time spent on evaluation and intervention of care is 70 minutes. Cesario Brewster M.D. DR: NIKOLE JOB#: [id number] CC: SHIRA
[2017-12-09] VITALS (9 sets, daily range): BP systolic 113–150; BP diastolic 50–84
[2017-12-09] MEDS: Albuterol/Ipratropium 3ml neb HHN SCH ×6 (03:00→23:29)
[2017-12-09] MEDS: NovoLOG Insulin Flexpen SUBQ SCH ×5 (06:02→23:52)
--- NOTE | 2017-12-09 08:04 | Pulmonology Progress Note ---
Assessment/Plan Problems: (1) Chronic respiratory failure with hypercapnia (2) HCAP (healthcare-associated pneumonia) (3) Respiratory distress (4) Feeding by G-tube (5) Encephalopathy due to infection (6) CKD (chronic kidney disease) (7) CVA (cerebral vascular accident) Assessment/Plan -Optimize pulmonary function/mobilize as tolerated -Titrate down FiO2 to keep SaO2 > 90% -BiPAP PRN and QHS -RTC and PRN HHN's + CPT -Abx per ID -Monitor volumes and renal function, replete free water -GTF's as tolerated when off BiPAP -DVT Px: Hep SQ -DNAR/DNI -D/W family, tracheostomy not with goals of care Subjective Allergies: Coded Allergies: No Known Allergies (Verified , 01/02/09) Subjective Events reviewed AFVSS, RA - 2L, on BiPAP O/N less cough and congestion, no F/C D/W family & trach not within GOC Objective Last 24 Hour Vital Signs Date Time Temp Pulse Resp B/P (MAP) Pulse Ox O2 Delivery O2 Flow Rate FiO2 12/09/17 04:00 70 12/09/17 04:00 98.0 69 22 131/73 (92) 99 98.0 12/09/17 04:00 Nasal Cannula 2.0 Nasal Cannula 2.0 12/09/17 03:26 Nasal Cannula 2.0 28 12/09/17 03:26 Nasal Cannula 2.0 28 12/09/17 00:00 Nasal Cannula 2.0 Nasal Cannula 2.0 12/09/17 00:00 97.6 65 20 113/69 (84) 98 97.6 12/09/17 00:00 67 12/08/17 23:09 62 22 99 Nasal Cannula 2.0 28 12/08/17 23:00 65 22 100 Nasal Cannula 2.0 28 12/08/17 23:00 67 22 100 Nasal Cannula 2.0 28 12/08/17 22:54 64 18 100 Nasal Cannula 2.0 28 12/08/17 21:23 69 135/92 12/08/17 20:00 98.3 69 20 135/92 (106) 97 98.3 12/08/17 20:00 Nasal Cannula 2.0 Nasal Cannula 2.0 12/08/17 20:00 71 12/08/17 19:20 67 18 97 Nasal Cannula 2.0 28 12/08/17 19:20 66 20 99 Nasal Cannula 2.0 28 12/08/17 18:03 65 149/79 12/08/17 16:00 Nasal Cannula 2.0 Nasal Cannula 2.0 12/08/17 16:00 65 12/08/17 16:00 97.0 65 26 149/79 (102) 99 97.0 12/08/17 15:00 68 24 99 Nasal Cannula 2.0 28 12/08/17 15:00 3 20 98 Nasal Cannula 2.0 28 12/08/17 12:15 66 24 99 Nasal Cannula 2.0 28 12/08/17 12:05 71 24 98 Nasal Cannula 2.0 28 12/08/17 12:03 69 24 100 Nasal Cannula 2.0 28 12/08/17 12:00 98.2 87 24 134/86 (102) 100 98.2 12/08/17 12:00 67 24 98 Nasal Cannula 2.0 28 12/08/17 12:00 Nasal Cannula 2.0 Nasal Cannula 2.0 12/08/17 12:00 66 12/08/17 08:39 67 152/94 12/08/17 08:39 67 152/94 12/08/17 08:38 152/94 Intake and Output 12/08/17 12/09/17 19:00 07:00 Intake Total 75 ml 475 ml Output Total 600 ml 350 ml Balance -525 ml 125 ml Intake Free Water 50 ml 100 ml IV Total 55 ml Tube Feeding 25 ml 320 ml Output Urine Total 600 ml 350 ml # Bowel Movements 1 General Appearance: no acute distress, cachetic, other - non-verbal HEENT: normocephalic, atraumatic, anicteric, mucous membranes moist Respiratory/Chest: chest wall non-tender, lungs clear, rhonchi - scattered Cardiovascular: normal peripheral pulses, normal rate, regular rhythm Abdomen: normal bowel sounds, soft, non tender, no organomegaly, non distended , no mass Extremities: no cyanosis, no clubbing, no edema Current Medications Medications (Trade) Dose Ordered Sig/Keira Route PRN Reason Start Time Stop Time Status Last Admin Dose Admin Acetaminophen (Tylenol) 650 mg Q6H PRN ORAL Mild Pain/Temp > 101 12/05/17 20:15 01/04/18 20:14 12/06/17 01:56 Albuterol/ Ipratropium (Albuterol/ Ipratropium) 3 ml Q4HRT HHN 12/05/17 23:00 12/10/17 22:59 12/08/17 23:06 Allopurinol (Zyloprim) 200 mg DAILY ORAL 12/08/17 09:00 01/07/18 08:59 12/08/17 08:48 Amlodipine Besylate (Norvasc) 5 mg BID GT 12/06/17 09:00 01/05/18 08:59 12/08/17 18:03 Aspirin (ASA) 81 mg DAILY NG 12/06/17 09:00 01/05/18 08:59 12/08/17 08:33 Bisacodyl (Dulcolax) 10 mg DAILYPRN PRN RECTAL Constipation 12/05/17 21:15 01/04/18 21:14 Carvedilol (Coreg) 25 mg Q12HR ORAL 12/08/17 09:00 01/07/18 08:59 12/08/17 21:23 Clopidogrel Bisulfate (Plavix) 75 mg DAILY NG 12/06/17 09:00 01/05/18 08:59 12/08/17 08:33 Colistimethate Sodium (Colistin *inhalation use only*) 75 mg Q12HR@10,22 INH 12/05/17 22:00 12/12/17 21:59 12/08/17 23:06 Dextrose 1,000 ml @ 100 mls/hr Q10H IV 12/07/17 12:00 01/05/18 11:59 12/09/17 02:08 Dextrose (Dextrose 50%) 25 ml STAT PRN IV Hypoglycemia 12/06/17 09:00 01/05/18 08:59 Dextrose (Dextrose 50%) 50 ml STAT PRN IV Hypoglycemia 12/06/17 09:00 01/05/18 08:59 Docusate Sodium (Colace) 100 mg TID GT 12/06/17 13:00 01/05/18 08:59 12/08/17 18:02 Heparin Sodium (Porcine) (Heparin 5000 units/ml) 5,000 units EVERY 12 HOURS SUBQ 12/05/17 21:00 01/04/18 20:59 12/08/17 21:25 Hydralazine HCl (Apresoline) 25 mg Q4H PRN ORAL systolic >160 12/06/17 12:45 01/05/18 12:44 12/08/17 05:42 Insulin Aspart (NovoLOG) EVERY 6 HOURS SUBQ 12/06/17 12:00 01/05/18 11:59 12/09/17 06:02 Meropenem 500 mg/ Sodium Chloride 55 ml @ 110 mls/hr EVERY 12 HOURS IVPB 12/05/17 21:00 12/10/17 20:59 12/08/17 21:24 Nitroglycerin (Ntg) 1 patch DAILY TDERMAL 12/06/17 13:00 01/05/18 12:59 12/08/17 08:38 Ondansetron HCl (Zofran) 4 mg Q4HR PRN IVP Nausea & Vomiting 12/05/17 20:15 01/04/18 20:14 Zinc Sulfate (Zinc Sulfate) 220 mg DAILY NG 12/06/17 09:00 01/05/18 08:59 12/08/17 08:32 Sagar Melvin MD Dec 09, 2017 08:04
[2017-12-09] MEDS: Colistin for inhalation INH SCH ×2 (09:10→23:29)
[2017-12-09] MEDS: Allopurinol 100mg Tab ORAL SCH (09:17)
[2017-12-09] MEDS: Docusate 100mg/10ml Liq GT SCH ×3 (09:17→17:04)
[2017-12-09] MEDS: Nitroglycerin Patch 0.4mg TDERMAL SCH (09:17)
[2017-12-09] MEDS: Zinc Sulfate 220mg cap NG SCH (09:17)
[2017-12-09] MEDS: Aspirin Baby 81mg NG SCH (09:17)
[2017-12-09] MEDS: Carvedilol 25mg Tab ORAL SCH ×2 (09:18→21:24)
[2017-12-09] MEDS: Meropenem 500 MG in NS 55 ML IVPB SCH ×2 (09:19→21:24)
[2017-12-09] MEDS: Heparin 5000 units/ml inj SUBQ SCH (09:21)
[2017-12-09 09:26] LABS: HEMATOCRIT 23.1 % (42.0-52.0); MEAN CORPUSCULAR VOLUME 85 FL (80-99); PLATELET COUNT 248 K/UL (150-450); RED BLOOD COUNT 2.72 M/UL (4.70-6.10); RED CELL DISTRIBUTION WIDTH 17.2 % (11.6-14.8); WHITE BLOOD COUNT 9.1 K/UL (4.8-10.8)
--- NOTE | 2017-12-09 09:27 | Nephrology Progress Note ---
Assessment/Plan Problem List: (1) CKD (chronic kidney disease) (2) Acute respiratory failure (3) Acute encephalopathy (4) UTI (urinary tract infection) (5) Anemia Assessment 1) Acute respiratory failure, Pneumonia and UTI (2) ATN (acute tubular necrosis), with underlying CKD (3) Anemia (4) UTI (urinary tract infection) (5) DNR (do not resuscitate) (6) Acute Encephalopathy, s/p Multiple strokes (7) PEG (8) HyperGlycemia Plan today's labs pending Pulm support Hydrate as possible - BS control K supplement avoid nephrotoxics Monitor renal parameters Hemodynamic support urine studies Per orders Subjective ROS Limited/Unobtainable: No Constitutional: Reports: malaise, weakness Objective Objective Last 24 Hour Vital Signs Date Time Temp Pulse Resp B/P (MAP) Pulse Ox O2 Delivery O2 Flow Rate FiO2 12/09/17 09:19 67 135/69 12/09/17 09:18 67 135/69 12/09/17 09:17 135/69 12/09/17 09:05 67 20 95 Nasal Cannula 2.0 28 12/09/17 08:15 69 20 98 Room Air 21 12/09/17 08:04 69 18 93 Room Air 21 12/09/17 07:46 67 12/09/17 04:00 70 12/09/17 04:00 98.0 69 22 131/73 (92) 99 98.0 12/09/17 04:00 Nasal Cannula 2.0 Nasal Cannula 2.0 12/09/17 03:26 Nasal Cannula 2.0 28 12/09/17 03:26 Nasal Cannula 2.0 28 12/09/17 00:00 Nasal Cannula 2.0 Nasal Cannula 2.0 12/09/17 00:00 97.6 65 20 113/69 (84) 98 97.6 12/09/17 00:00 67 12/08/17 23:09 62 22 99 Nasal Cannula 2.0 28 12/08/17 23:00 65 22 100 Nasal Cannula 2.0 28 12/08/17 23:00 67 22 100 Nasal Cannula 2.0 28 12/08/17 22:54 64 18 100 Nasal Cannula 2.0 28 12/08/17 21:23 69 135/92 12/08/17 20:00 98.3 69 20 135/92 (106) 97 98.3 12/08/17 20:00 Nasal Cannula 2.0 Nasal Cannula 2.0 12/08/17 20:00 71 12/08/17 19:20 67 18 97 Nasal Cannula 2.0 28 12/08/17 19:20 66 20 99 Nasal Cannula 2.0 28 12/08/17 18:03 65 149/79 12/08/17 16:00 Nasal Cannula 2.0 Nasal Cannula 2.0 12/08/17 16:00 65 12/08/17 16:00 97.0 65 26 149/79 (102) 99 97.0 12/08/17 15:00 68 24 99 Nasal Cannula 2.0 28 12/08/17 15:00 3 20 98 Nasal Cannula 2.0 28 12/08/17 12:15 66 24 99 Nasal Cannula 2.0 28 12/08/17 12:05 71 24 98 Nasal Cannula 2.0 28 12/08/17 12:03 69 24 100 Nasal Cannula 2.0 28 12/08/17 12:00 98.2 87 24 134/86 (102) 100 98.2 12/08/17 12:00 67 24 98 Nasal Cannula 2.0 28 12/08/17 12:00 Nasal Cannula 2.0 Nasal Cannula 2.0 12/08/17 12:00 66 Intake and Output 12/08/17 12/09/17 19:00 07:00 Intake Total 75 ml 475 ml Output Total 600 ml 350 ml Balance -525 ml 125 ml Intake Free Water 50 ml 100 ml IV Total 55 ml Tube Feeding 25 ml 320 ml Output Urine Total 600 ml 350 ml # Bowel Movements 1 Laboratory Tests 12/09/17 08:34: White Blood Count [Pending], Red Blood Count [Pending], Hemoglobin [Pending], Hematocrit [Pending], Mean Corpuscular Volume [Pending], Mean Corpuscular Hemoglobin [Pending], Mean Corpuscular Hemoglobin Concent [Pending], Red Cell Distribution Width [Pending], Platelet Count [Pending], Mean Platelet Volume [ Pending], Neutrophils (%) (Auto) [Pending], Lymphocytes (%) (Auto) [Pending], Monocytes (%) (Auto) [Pending], Eosinophils (%) (Auto) [Pending], Basophils (%) (Auto) [Pending], Sodium Level [Pending], Potassium Level [Pending], Chloride Level [Pending], Carbon Dioxide Level [Pending], Blood Urea Nitrogen [Pending], Creatinine [Pending], Estimat Glomerular Filtration Rate [Pending], Glucose Level [Pending], Calcium Level [Pending], Phosphorus Level [Pending], Magnesium Level [Pending], Total Bilirubin [Pending], Aspartate Amino Transf (AST/SGOT) [ Pending], Alanine Aminotransferase (ALT/SGPT) [Pending], Alkaline Phosphatase [ Pending], Total Protein [Pending], Albumin [Pending], Globulin [Pending] Height (Feet): 6 Height (Inches): 0.00 Weight (Pounds): 187 General Appearance: no apparent distress, lethargic Cardiovascular: normal rate Respiratory/Chest: decreased breath sounds Abdomen: soft, distended Mukul Duarte MD Dec 09, 2017 09:27
[2017-12-09 10:17] LABS: ALANINE AMINOTRANSFERASE 13 U/L (12-78); ALBUMIN 1.5 G/DL (3.4-5.0); ALBUMIN/GLOBULIN RATIO 0.3 (1.0-2.7); ALKALINE PHOSPHATASE 59 U/L (46-116); ANION GAP 8 mmol/L (5-15); ASPARTATE AMINO TRANSFERASE 22 U/L (15-37); BILIRUBIN,TOTAL 0.2 MG/DL (0.2-1.0); BLOOD UREA NITROGEN 83 mg/dL (7-18); CARBON DIOXIDE 30 MMOL/L (21-32); CHLORIDE 112 MMOL/L (98-107); CREATININE 2.5 MG/DL (0.55-1.30); PHOSPHORUS 3.1 MG/DL (2.5-4.9); POTASSIUM 3.6 MMOL/L (3.5-5.1); SODIUM 150 MMOL/L (136-145)
--- NOTE | 2017-12-09 12:54 | Infectious Diseases Prog Note ---
Assessment/Plan Assessment/Plan A; Sepsis Recent pneumonia Hypercapnic respiratory failure Hypernatremia Chronic renal failure Anemia Advanced dementia P; Continue Colistin & Meropenem Subjective ROS Limited/Unobtainable: Yes Allergies: Coded Allergies: No Known Allergies (Verified , 01/02/09) Objective Vital Signs Last 24 Hour Vital Signs Date Time Temp Pulse Resp B/P (MAP) Pulse Ox O2 Delivery O2 Flow Rate FiO2 12/09/17 12:20 Nasal Cannula 2.0 Nasal Cannula 2.0 12/09/17 12:00 97.3 66 18 134/52 (79) 100 97.3 12/09/17 11:41 67 12/09/17 09:19 67 135/69 12/09/17 09:18 67 135/69 12/09/17 09:17 135/69 12/09/17 09:05 67 20 95 Nasal Cannula 2.0 28 12/09/17 08:15 69 20 98 Room Air 21 12/09/17 08:04 69 18 93 Room Air 21 12/09/17 08:00 Nasal Cannula 2.0 Nasal Cannula 2.0 12/09/17 08:00 97.0 67 20 135/69 (91) 93 97.0 12/09/17 07:46 67 12/09/17 04:00 70 12/09/17 04:00 98.0 69 22 131/73 (92) 99 98.0 12/09/17 04:00 Nasal Cannula 2.0 Nasal Cannula 2.0 12/09/17 03:26 Nasal Cannula 2.0 28 12/09/17 03:26 Nasal Cannula 2.0 28 12/09/17 00:00 Nasal Cannula 2.0 Nasal Cannula 2.0 12/09/17 00:00 97.6 65 20 113/69 (84) 98 97.6 12/09/17 00:00 67 12/08/17 23:09 62 22 99 Nasal Cannula 2.0 28 12/08/17 23:00 65 22 100 Nasal Cannula 2.0 28 12/08/17 23:00 67 22 100 Nasal Cannula 2.0 28 12/08/17 22:54 64 18 100 Nasal Cannula 2.0 28 12/08/17 21:23 69 135/92 12/08/17 20:00 98.3 69 20 135/92 (106) 97 98.3 12/08/17 20:00 Nasal Cannula 2.0 Nasal Cannula 2.0 12/08/17 20:00 71 12/08/17 19:20 67 18 97 Nasal Cannula 2.0 28 12/08/17 19:20 66 20 99 Nasal Cannula 2.0 28 12/08/17 18:03 65 149/79 12/08/17 16:00 Nasal Cannula 2.0 Nasal Cannula 2.0 12/08/17 16:00 65 12/08/17 16:00 97.0 65 26 149/79 (102) 99 97.0 12/08/17 15:00 68 24 99 Nasal Cannula 2.0 28 12/08/17 15:00 3 20 98 Nasal Cannula 2.0 28 Height (Feet): 6 Height (Inches): 0.00 Weight (Pounds): 187 General Appearance: no acute distress HEENT: mucous membranes moist Respiratory/Chest: lungs clear, other - oxygen by cannula Cardiovascular: normal rate Abdomen: soft, non tender, other - GT feeding Extremities: no edema Neurologic/Psychiatric: aphasia Laboratory Tests Test 12/09/17 08:34 White Blood Count 9.1 K/UL (4.8-10.8) Red Blood Count 2.72 M/UL (4.70-6.10) L Hemoglobin 7.0 G/DL (14.2-18.0) L Hematocrit 23.1 % (42.0-52.0) L Mean Corpuscular Volume 85 FL (80-99) Mean Corpuscular Hemoglobin 25.8 PG (27.0-31.0) L Mean Corpuscular Hemoglobin Concent 30.3 G/DL (32.0-36.0) L Red Cell Distribution Width 17.2 % (11.6-14.8) H Platelet Count 248 K/UL (150-450) Mean Platelet Volume 6.4 FL (6.5-10.1) L Neutrophils (%) (Auto) % (45.0-75.0) Lymphocytes (%) (Auto) % (20.0-45.0) Monocytes (%) (Auto) % (1.0-10.0) Eosinophils (%) (Auto) % (0.0-3.0) Basophils (%) (Auto) % (0.0-2.0) Differential Total Cells Counted 100 Neutrophils % (Manual) 50 % (45-75) Lymphocytes % (Manual) 41 % (20-45) Monocytes % (Manual) 7 % (1-10) Eosinophils % (Manual) 2 % (0-3) Basophils % (Manual) 0 % (0-2) Band Neutrophils 0 % (0-8) Platelet Estimate Adequate Platelet Morphology Normal Hypochromasia 1+ Anisocytosis 1+ Sodium Level 150 MMOL/L (136-145) H Potassium Level 3.6 MMOL/L (3.5-5.1) Chloride Level 112 MMOL/L (98-107) H Carbon Dioxide Level 30 MMOL/L (21-32) Anion Gap 8 mmol/L (5-15) Blood Urea Nitrogen 83 mg/dL (7-18) H Creatinine 2.5 MG/DL (0.55-1.30) H Estimat Glomerular Filtration Rate mL/min (>60) Glucose Level 123 MG/DL (74-106) H Calcium Level 9.0 MG/DL (8.5-10.1) Phosphorus Level 3.1 MG/DL (2.5-4.9) Magnesium Level 1.8 MG/DL (1.8-2.4) Total Bilirubin 0.2 MG/DL (0.2-1.0) Aspartate Amino Transf (AST/SGOT) 22 U/L (15-37) Alanine Aminotransferase (ALT/SGPT) 13 U/L (12-78) Alkaline Phosphatase 59 U/L (46-116) Total Protein 6.9 G/DL (6.4-8.2) Albumin 1.5 G/DL (3.4-5.0) L Globulin 5.4 g/dL Albumin/Globulin Ratio 0.3 (1.0-2.7) L Current Medications Medications (Trade) Dose Ordered Sig/Keira Route PRN Reason Start Time Stop Time Status Last Admin Dose Admin Acetaminophen (Tylenol) 650 mg Q6H PRN ORAL Mild Pain/Temp > 101 12/05/17 20:15 01/04/18 20:14 12/06/17 01:56 Albuterol/ Ipratropium (Albuterol/ Ipratropium) 3 ml Q4HRT HHN 12/05/17 23:00 12/10/17 22:59 12/09/17 12:01 Allopurinol (Zyloprim) 200 mg DAILY ORAL 12/08/17 09:00 01/07/18 08:59 12/09/17 09:17 Amlodipine Besylate (Norvasc) 5 mg BID GT 12/06/17 09:00 01/05/18 08:59 12/09/17 09:19 Aspirin (ASA) 81 mg DAILY NG 12/06/17 09:00 01/05/18 08:59 12/09/17 09:17 Bisacodyl (Dulcolax) 10 mg DAILYPRN PRN RECTAL Constipation 12/05/17 21:15 01/04/18 21:14 Carvedilol (Coreg) 25 mg Q12HR ORAL 12/08/17 09:00 01/07/18 08:59 12/09/17 09:18 Clopidogrel Bisulfate (Plavix) 75 mg DAILY NG 12/06/17 09:00 01/05/18 08:59 12/09/17 09:18 Colistimethate Sodium (Colistin *inhalation use only*) 75 mg Q12HR@10,22 INH 12/05/17 22:00 12/12/17 21:59 12/09/17 09:10 Dextrose 1,000 ml @ 100 mls/hr Q10H IV 12/07/17 12:00 01/05/18 11:59 12/09/17 12:41 Dextrose (Dextrose 50%) 25 ml STAT PRN IV Hypoglycemia 12/06/17 09:00 01/05/18 08:59 Dextrose (Dextrose 50%) 50 ml STAT PRN IV Hypoglycemia 12/06/17 09:00 01/05/18 08:59 Docusate Sodium (Colace) 100 mg TID GT 12/06/17 13:00 01/05/18 08:59 12/09/17 12:40 Heparin Sodium (Porcine) (Heparin 5000 units/ml) 5,000 units EVERY 12 HOURS SUBQ 12/05/17 21:00 01/04/18 20:59 12/09/17 09:21 Hydralazine HCl (Apresoline) 25 mg Q4H PRN ORAL systolic >160 12/06/17 12:45 01/05/18 12:44 12/08/17 05:42 Insulin Aspart (NovoLOG) EVERY 6 HOURS SUBQ 12/06/17 12:00 8/20/18 11:59 12/09/17 12:42 Meropenem 500 mg/ Sodium Chloride 55 ml @ 110 mls/hr EVERY 12 HOURS IVPB 12/05/17 21:00 12/10/17 20:59 12/09/17 09:19 Nitroglycerin (Ntg) 1 patch DAILY TDERMAL 12/06/17 13:00 01/05/18 12:59 12/09/17 09:17 Ondansetron HCl (Zofran) 4 mg Q4HR PRN IVP Nausea & Vomiting 12/05/17 20:15 01/04/18 20:14 Zinc Sulfate (Zinc Sulfate) 220 mg DAILY NG 12/06/17 09:00 01/05/18 08:59 12/09/17 09:17 Donnell Murray MD Dec 09, 2017 12:53
--- NOTE | 2017-12-09 16:59 | Cardiology Progress Note ---
Assessment/Plan Assessment/Plan metabolic encephalopathy respiratory acidosis cad s/p cabg s/ avr aortic aneurysm s/p repair cri anemia hypernatremia recent gi bleed ? pulm infiltrative process diastolic dysfucntion tele sinus na still on the high side but improved free water as per renal / pmd bp is better recent [facility] echo showed moderate diastolic dysfunction ekg LBBB not new DNR per chart d/w dtr bipap support aspiration precautions urine na ? probnp has decreased despiet ivf hydration Subjective ROS Limited/Unobtainable: Yes Objective Last 24 Hour Vital Signs Date Time Temp Pulse Resp B/P (MAP) Pulse Ox O2 Delivery O2 Flow Rate FiO2 12/09/17 14:45 Nasal Cannula 12/09/17 14:45 Nasal Cannula 12/09/17 12:20 Nasal Cannula 2.0 Nasal Cannula 2.0 12/09/17 12:09 62 20 100 Nasal Cannula 2.0 28 12/09/17 12:00 97.3 66 18 134/52 (79) 100 97.3 12/09/17 11:58 65 18 96 Nasal Cannula 2.0 28 12/09/17 11:41 67 12/09/17 09:23 66 20 99 Nasal Cannula 2.0 28 12/09/17 09:19 67 135/69 12/09/17 09:18 67 135/69 12/09/17 09:17 135/69 12/09/17 09:05 67 20 95 Nasal Cannula 2.0 28 12/09/17 08:15 69 20 98 Room Air 21 12/09/17 08:04 69 18 93 Room Air 21 12/09/17 08:00 Nasal Cannula 2.0 Nasal Cannula 2.0 12/09/17 08:00 97.0 67 20 135/69 (91) 93 97.0 12/09/17 07:46 67 12/09/17 04:00 70 12/09/17 04:00 98.0 69 22 131/73 (92) 99 98.0 12/09/17 04:00 Nasal Cannula 2.0 Nasal Cannula 2.0 12/09/17 03:26 Nasal Cannula 2.0 28 12/09/17 03:26 Nasal Cannula 2.0 28 12/09/17 00:00 Nasal Cannula 2.0 Nasal Cannula 2.0 12/09/17 00:00 97.6 65 20 113/69 (84) 98 97.6 12/09/17 00:00 67 12/08/17 23:09 62 22 99 Nasal Cannula 2.0 28 12/08/17 23:00 65 22 100 Nasal Cannula 2.0 28 12/08/17 23:00 67 22 100 Nasal Cannula 2.0 28 12/08/17 22:54 64 18 100 Nasal Cannula 2.0 28 12/08/17 21:23 69 135/92 12/08/17 20:00 98.3 69 20 135/92 (106) 97 98.3 12/08/17 20:00 Nasal Cannula 2.0 Nasal Cannula 2.0 12/08/17 20:00 71 12/08/17 19:20 67 18 97 Nasal Cannula 2.0 28 12/08/17 19:20 66 20 99 Nasal Cannula 2.0 28 12/08/17 18:03 65 149/79 General Appearance: no apparent distress Cardiovascular: normal rate Respiratory/Chest: lungs clear Abdomen: normal bowel sounds, non tender, soft Extremities: no swelling Intake and Output 12/08/17 12/09/17 19:00 07:00 Intake Total 75 ml 475 ml Output Total 600 ml 350 ml Balance -525 ml 125 ml Intake Free Water 50 ml 100 ml IV Total 55 ml Tube Feeding 25 ml 320 ml Output Urine Total 600 ml 350 ml # Bowel Movements 1 Laboratory Tests Test 12/09/17 08:34 White Blood Count 9.1 K/UL (4.8-10.8) Red Blood Count 2.72 M/UL (4.70-6.10) L Hemoglobin 7.0 G/DL (14.2-18.0) L Hematocrit 23.1 % (42.0-52.0) L Mean Corpuscular Volume 85 FL (80-99) Mean Corpuscular Hemoglobin 25.8 PG (27.0-31.0) L Mean Corpuscular Hemoglobin Concent 30.3 G/DL (32.0-36.0) L Red Cell Distribution Width 17.2 % (11.6-14.8) H Platelet Count 248 K/UL (150-450) Mean Platelet Volume 6.4 FL (6.5-10.1) L Neutrophils (%) (Auto) % (45.0-75.0) Lymphocytes (%) (Auto) % (20.0-45.0) Monocytes (%) (Auto) % (1.0-10.0) Eosinophils (%) (Auto) % (0.0-3.0) Basophils (%) (Auto) % (0.0-2.0) Differential Total Cells Counted 100 Neutrophils % (Manual) 50 % (45-75) Lymphocytes % (Manual) 41 % (20-45) Monocytes % (Manual) 7 % (1-10) Eosinophils % (Manual) 2 % (0-3) Basophils % (Manual) 0 % (0-2) Band Neutrophils 0 % (0-8) Platelet Estimate Adequate Platelet Morphology Normal Hypochromasia 1+ Anisocytosis 1+ Sodium Level 150 MMOL/L (136-145) H Potassium Level 3.6 MMOL/L (3.5-5.1) Chloride Level 112 MMOL/L (98-107) H Carbon Dioxide Level 30 MMOL/L (21-32) Anion Gap 8 mmol/L (5-15) Blood Urea Nitrogen 83 mg/dL (7-18) H Creatinine 2.5 MG/DL (0.55-1.30) H Estimat Glomerular Filtration Rate mL/min (>60) Glucose Level 123 MG/DL (74-106) H Calcium Level 9.0 MG/DL (8.5-10.1) Phosphorus Level 3.1 MG/DL (2.5-4.9) Magnesium Level 1.8 MG/DL (1.8-2.4) Total Bilirubin 0.2 MG/DL (0.2-1.0) Aspartate Amino Transf (AST/SGOT) 22 U/L (15-37) Alanine Aminotransferase (ALT/SGPT) 13 U/L (12-78) Alkaline Phosphatase 59 U/L (46-116) Total Protein 6.9 G/DL (6.4-8.2) Albumin 1.5 G/DL (3.4-5.0) L Globulin 5.4 g/dL Albumin/Globulin Ratio 0.3 (1.0-2.7) L Franko Freeman MD Dec 09, 2017 16:59
[2017-12-09 20:42] LABS: HEMATOCRIT 20.2 % (42.0-52.0); MEAN CORPUSCULAR VOLUME 84 FL (80-99); PLATELET COUNT 216 K/UL (150-450); RED CELL DISTRIBUTION WIDTH 17.2 % (11.6-14.8); WHITE BLOOD COUNT 10.6 K/UL (4.8-10.8)
[2017-12-09 20:48] LABS: HEMOGLOBIN 6.4 G/DL (14.2-18.0)
[2017-12-09] MEDS: Pantoprazole Inj IVP SCH (21:23)
--- NOTE | 2017-12-09 22:31 | Internal Med Progress Note ---
Subjective Date of Service: Dec 09, 2017 Physician Name Staci Chacon Attending Physician Staci Chacon Current Medications Medications (Trade) Dose Ordered Sig/Keira Route PRN Reason Start Time Stop Time Status Last Admin Dose Admin Acetaminophen (Tylenol) 650 mg Q6H PRN ORAL Mild Pain/Temp > 101 12/05/17 20:15 01/04/18 20:14 12/06/17 01:56 Albuterol/ Ipratropium (Albuterol/ Ipratropium) 3 ml Q4HRT HHN 12/05/17 23:00 12/10/17 22:59 12/09/17 20:47 Allopurinol (Zyloprim) 200 mg DAILY ORAL 12/08/17 09:00 01/07/18 08:59 12/09/17 09:17 Amlodipine Besylate (Norvasc) 5 mg BID GT 12/06/17 09:00 01/05/18 08:59 12/09/17 17:08 Aspirin (ASA) 81 mg DAILY NG 12/06/17 09:00 01/05/18 08:59 12/09/17 09:17 Bisacodyl (Dulcolax) 10 mg DAILYPRN PRN RECTAL Constipation 12/05/17 21:15 01/04/18 21:14 Carvedilol (Coreg) 25 mg Q12HR ORAL 12/08/17 09:00 01/07/18 08:59 12/09/17 21:24 Clopidogrel Bisulfate (Plavix) 75 mg DAILY NG 12/06/17 09:00 01/05/18 08:59 12/09/17 09:18 Colistimethate Sodium (Colistin *inhalation use only*) 75 mg Q12HR@10,22 INH 12/05/17 22:00 12/12/17 21:59 12/09/17 09:10 Dextrose 1,000 ml @ 100 mls/hr Q10H IV 12/07/17 12:00 01/05/18 11:59 12/09/17 12:41 Dextrose (Dextrose 50%) 25 ml STAT PRN IV Hypoglycemia 12/06/17 09:00 01/05/18 08:59 Dextrose (Dextrose 50%) 50 ml STAT PRN IV Hypoglycemia 12/06/17 09:00 01/05/18 08:59 Docusate Sodium (Colace) 100 mg TID GT 12/06/17 13:00 01/05/18 08:59 12/09/17 12:40 Hydralazine HCl (Apresoline) 25 mg Q4H PRN ORAL systolic >160 12/06/17 12:45 01/05/18 12:44 12/08/17 05:42 Insulin Aspart (NovoLOG) EVERY 6 HOURS SUBQ 12/06/17 12:00 01/05/18 11:59 12/09/17 12:42 Meropenem 500 mg/ Sodium Chloride 55 ml @ 110 mls/hr EVERY 12 HOURS IVPB 12/05/17 21:00 12/10/17 20:59 12/09/17 21:24 Nitroglycerin (Ntg) 1 patch DAILY TDERMAL 12/06/17 13:00 01/05/18 12:59 12/09/17 09:17 Ondansetron HCl (Zofran) 4 mg Q4HR PRN IVP Nausea & Vomiting 12/05/17 20:15 01/04/18 20:14 Pantoprazole (Protonix) 40 mg EVERY 12 HOURS IVP 12/09/17 21:00 01/08/18 20:59 12/09/17 21:23 Zinc Sulfate (Zinc Sulfate) 220 mg DAILY NG 12/06/17 09:00 01/05/18 08:59 12/09/17 09:17 Allergies: Coded Allergies: No Known Allergies (Verified , 01/02/09) ROS Limited/Unobtainable: Yes Objective Last Vital Signs Date Time Temp Pulse Resp B/P (MAP) Pulse Ox O2 Delivery O2 Flow Rate FiO2 12/09/17 21:24 69 142/85 12/09/17 20:00 20 98 Nasal Cannula 2.0 28 12/09/17 17:13 95.0 95.0 General Appearance: no apparent distress Neck: non-tender Cardiovascular: normal rate, regular rhythm, systolic murmur Respiratory/Chest: lungs clear, no respiratory distress, no accessory muscle use Abdomen: normal bowel sounds, non tender, soft, no mass, other - PEG Genitourinary/Rectal: normal genital exam, other - elder Extremities: no calf tenderness Edema: trace edema Neurologic: disoriented, aphasia Skin: warm/dry Laboratory Tests Test 12/09/17 08:34 12/09/17 18:30 12/09/17 20:20 White Blood Count 9.1 K/UL (4.8-10.8) 10.6 K/UL (4.8-10.8) Red Blood Count 2.72 M/UL (4.70-6.10) L 2.40 M/UL (4.70-6.10) L Hemoglobin 7.0 G/DL (14.2-18.0) L 6.4 G/DL (14.2-18.0) *L Hematocrit 23.1 % (42.0-52.0) L 20.2 % (42.0-52.0) L Mean Corpuscular Volume 85 FL (80-99) 84 FL (80-99) Mean Corpuscular Hemoglobin 25.8 PG (27.0-31.0) L 26.7 PG (27.0-31.0) L Mean Corpuscular Hemoglobin Concent 30.3 G/DL (32.0-36.0) L 31.8 G/DL (32.0-36.0) L Red Cell Distribution Width 17.2 % (11.6-14.8) H 17.2 % (11.6-14.8) H Platelet Count 248 K/UL (150-450) 216 K/UL (150-450) Mean Platelet Volume 6.4 FL (6.5-10.1) L 6.1 FL (6.5-10.1) L Neutrophils (%) (Auto) % (45.0-75.0) % (45.0-75.0) Lymphocytes (%) (Auto) % (20.0-45.0) % (20.0-45.0) Monocytes (%) (Auto) % (1.0-10.0) % (1.0-10.0) Eosinophils (%) (Auto) % (0.0-3.0) % (0.0-3.0) Basophils (%) (Auto) % (0.0-2.0) % (0.0-2.0) Differential Total Cells Counted 100 100 Neutrophils % (Manual) 50 % (45-75) 62 % (45-75) Lymphocytes % (Manual) 41 % (20-45) 29 % (20-45) Monocytes % (Manual) 7 % (1-10) 5 % (1-10) Eosinophils % (Manual) 2 % (0-3) 3 % (0-3) Basophils % (Manual) 0 % (0-2) 1 % (0-2) Band Neutrophils 0 % (0-8) 0 % (0-8) Platelet Estimate Adequate Adequate Platelet Morphology Normal Normal Hypochromasia 1+ 1+ Anisocytosis 1+ 1+ Sodium Level 150 MMOL/L (136-145) H Potassium Level 3.6 MMOL/L (3.5-5.1) Chloride Level 112 MMOL/L (98-107) H Carbon Dioxide Level 30 MMOL/L (21-32) Anion Gap 8 mmol/L (5-15) Blood Urea Nitrogen 83 mg/dL (7-18) H Creatinine 2.5 MG/DL (0.55-1.30) H Estimat Glomerular Filtration Rate mL/min (>60) Glucose Level 123 MG/DL (74-106) H Calcium Level 9.0 MG/DL (8.5-10.1) Phosphorus Level 3.1 MG/DL (2.5-4.9) Magnesium Level 1.8 MG/DL (1.8-2.4) Total Bilirubin 0.2 MG/DL (0.2-1.0) Aspartate Amino Transf (AST/SGOT) 22 U/L (15-37) Alanine Aminotransferase (ALT/SGPT) 13 U/L (12-78) Alkaline Phosphatase 59 U/L (46-116) Total Protein 6.9 G/DL (6.4-8.2) Albumin 1.5 G/DL (3.4-5.0) L Globulin 5.4 g/dL Albumin/Globulin Ratio 0.3 (1.0-2.7) L Stool Occult Blood Pending Intake and Output 12/08/17 12/09/17 19:00 07:00 Intake Total 75 ml 520 ml Output Total 600 ml 350 ml Balance -525 ml 170 ml Intake Free Water 50 ml 110 ml IV Total 55 ml Tube Feeding 25 ml 355 ml Output Urine Total 600 ml 350 ml # Bowel Movements 1 Assessment/Plan Status: progressing Assessment/Plan IMPRESSION: 1. Acute hypercapnic respiratory failure. 2. Acute on chronic diastolic heart failure. 3. Health facility acquired pneumonia, rule out aspiration pneumonia. 4. Acute on chronic renal failure. 5. Dehydration. 6. Hypernatremia. 7. History of cerebrovascular accident with right hemiplegia. 8. Dysphagia, status post gastrostomy tube placement. 9. Hypoxemia. 10. Acute toxic and metabolic encephalopathy. 11. Severe protein-calorie malnutrition. 12. Elevated troponin, likely due to demand ischemia. 13. Melena/ GI bleed PLAN: GI consult serail hgb 2 unit PRBC tx DC heparin SQ, ASa, Plavix PIYUSH monitor 2. BiPAP qhs and PRN 3. Pulmonary, ID, and Renal f/u 4. IV fluids. 5. Aspiration precaution. 6. Hold feeding while patient on BiPAP. 7. ABG as needed 8. Pulmonary nebulizer. 9. Diuresis per Cardiology. 10. Monitor sodium. 11. Maximize nutritional status. The patient has an albumin of 2. We will resume diet after the respiratory status improves with aspiration precaution. 12. Blood pressure control. 13. Follow up cultures. 14. Accu-Chek. 15. Continue with aspirin and Plavix. 16. Further recommendation to follow pending the patient's response to above measures and input by gis consultant . His Code Status is DNR/DNI. over 35 min spent today time of note may NOT reflect actual encounter time. STACI CHACON Dec 09, 2017 22:31
[2017-12-10] VITALS (14 sets, daily range): BP systolic 91–154; BP diastolic 55–84
[2017-12-10] MEDS: Albuterol/Ipratropium 3ml neb HHN SCH ×4 (04:10→15:12)
[2017-12-10 05:10] LABS: BASOPHILS % (AUTO) 0.5 % (0.0-2.0); EOSINOPHILS % (AUTO) 7.2 % (0.0-3.0); HEMATOCRIT 29.3 % (42.0-52.0); HEMOGLOBIN 9.1 G/DL (14.2-18.0); LYMPHOCYTES % (AUTO) 33.2 % (20.0-45.0); MEAN CORPUSCULAR VOLUME 85 FL (80-99); MONOCYTES % (AUTO) 4.9 % (1.0-10.0); NEUTROPHILS % (AUTO) 54.2 % (45.0-75.0); PLATELET COUNT 253 K/UL (150-450); RED BLOOD COUNT 3.43 M/UL (4.70-6.10); RED CELL DISTRIBUTION WIDTH 16.4 % (11.6-14.8); WHITE BLOOD COUNT 11.2 K/UL (4.8-10.8)
[2017-12-10] MEDS: NovoLOG Insulin Flexpen SUBQ SCH ×2 (05:15→12:00)
[2017-12-10 08:03] LABS: INR 1.1 (0.9-1.1)
[2017-12-10] MEDS ORDERED: DiphenhydrAMINE 50mg/ml Inj IVP PRN (08:15)
[2017-12-10] MEDS ORDERED: fentaNYL 100 mcg/2 mL IV PRN (08:15)
[2017-12-10] MEDS ORDERED: Midazolam 2mg/2ml Inj IVP PRN (08:15)
[2017-12-10] MEDS ORDERED: Atropine Inj 1mg/10ml Syr IV PRN (08:15)
[2017-12-10] MEDS ORDERED: Labetalol 5mg/ml 20ml vial IV PRN (08:15)
--- NOTE | 2017-12-10 08:30 | Anethesia Preoperative Eval ---
Anesthesia Pre-op PMH/ROS General Date of Evaluation: Dec 10, 2017 Time of Evaluation: 08:14 Anesthesiologist: mary anne ASA Score: ASA 4 Mallampati Score Class I : Soft palate, uvula, fauces, pillars visible Class II: Soft palate, uvula, fauces visible Class III: Soft palate, base of uvula visible Class IV: Only hard plate visible Mallampati Classification: Class II Surgeon: gurwinder Diagnosis: anemia Surgical Procedure: egd Anesthesia History: none Social History: smoking - nonsmoker Family History: no anesthesia problems Allergies: Coded Allergies: No Known Allergies (Verified , 01/02/09) Medications: see eMAR Past Medical History Cardiovascular: Reports: HTN Pulmonary: Reports: other - acute respiratory failure Gastrointestinal/Genitourinary: Reports: other - uti Neurologic/Psychiatric: Reports: CVA, other - encephalopathy Endocrine: Reports: DM Anesthesia Pre-op Phys. Exam Physician Exam Last Vital Signs Date Time Temp Pulse Resp B/P (MAP) Pulse Ox O2 Delivery O2 Flow Rate FiO2 12/10/17 07:37 63 18 96 Nasal Cannula 1.0 24 12/10/17 04:00 97.9 135/84 (101) 97.9 Constitutional: NAD Neurologic: CN 2-12 intact Cardiovascular: RRR Respiratory: CTA Gastrointestinal: S/NT/ND Airway Exam Mallampati Score: Class II MO: limited Neck: decreased rom to lateral rotation TMD: 2fb ROM: limited Teeth: missing Anesthesia Pre-op A/P Labs Hematology Test 12/09/17 08:34 12/09/17 20:20 12/10/17 03:59 White Blood Count 9.1 K/UL (4.8-10.8) 10.6 K/UL (4.8-10.8) 11.2 K/UL (4.8-10.8) H Red Blood Count 2.72 M/UL (4.70-6.10) L 2.40 M/UL (4.70-6.10) L 3.43 M/UL (4.70-6.10) L Hemoglobin 7.0 G/DL (14.2-18.0) L 6.4 G/DL (14.2-18.0) *L 9.1 G/DL (14.2-18.0) #L Hematocrit 23.1 % (42.0-52.0) L 20.2 % (42.0-52.0) L 29.3 % (42.0-52.0) #L Mean Corpuscular Volume 85 FL (80-99) 84 FL (80-99) 85 FL (80-99) Mean Corpuscular Hemoglobin 25.8 PG (27.0-31.0) L 26.7 PG (27.0-31.0) L 26.6 PG (27.0-31.0) L Mean Corpuscular Hemoglobin Concent 30.3 G/DL (32.0-36.0) L 31.8 G/DL (32.0-36.0) L 31.1 G/DL (32.0-36.0) L Red Cell Distribution Width 17.2 % (11.6-14.8) H 17.2 % (11.6-14.8) H 16.4 % (11.6-14.8) H Platelet Count 248 K/UL (150-450) 216 K/UL (150-450) 253 K/UL (150-450) Mean Platelet Volume 6.4 FL (6.5-10.1) L 6.1 FL (6.5-10.1) L 6.6 FL (6.5-10.1) Neutrophils (%) (Auto) % (45.0-75.0) % (45.0-75.0) 54.2 % (45.0-75.0) Lymphocytes (%) (Auto) % (20.0-45.0) % (20.0-45.0) 33.2 % (20.0-45.0) Monocytes (%) (Auto) % (1.0-10.0) % (1.0-10.0) 4.9 % (1.0-10.0) Eosinophils (%) (Auto) % (0.0-3.0) % (0.0-3.0) 7.2 % (0.0-3.0) H Basophils (%) (Auto) % (0.0-2.0) % (0.0-2.0) 0.5 % (0.0-2.0) Differential Total Cells Counted 100 100 Neutrophils % (Manual) 50 % (45-75) 62 % (45-75) Lymphocytes % (Manual) 41 % (20-45) 29 % (20-45) Monocytes % (Manual) 7 % (1-10) 5 % (1-10) Eosinophils % (Manual) 2 % (0-3) 3 % (0-3) Basophils % (Manual) 0 % (0-2) 1 % (0-2) Band Neutrophils 0 % (0-8) 0 % (0-8) Platelet Estimate Adequate Adequate Platelet Morphology Normal Normal Hypochromasia 1+ 1+ Anisocytosis 1+ 1+ Coagulation Test 12/10/17 07:40 Prothrombin Time 11.8 SEC (9.30-11.50) H Prothromb Time International Ratio 1.1 (0.9-1.1) Activated Partial Thromboplast Time 32 SEC (23-33) Chemistry Test 12/09/17 08:34 Sodium Level 150 MMOL/L (136-145) H Potassium Level 3.6 MMOL/L (3.5-5.1) Chloride Level 112 MMOL/L (98-107) H Carbon Dioxide Level 30 MMOL/L (21-32) Anion Gap 8 mmol/L (5-15) Blood Urea Nitrogen 83 mg/dL (7-18) H Creatinine 2.5 MG/DL (0.55-1.30) H Estimat Glomerular Filtration Rate mL/min (>60) Glucose Level 123 MG/DL (74-106) H Calcium Level 9.0 MG/DL (8.5-10.1) Phosphorus Level 3.1 MG/DL (2.5-4.9) Magnesium Level 1.8 MG/DL (1.8-2.4) Total Bilirubin 0.2 MG/DL (0.2-1.0) Aspartate Amino Transf (AST/SGOT) 22 U/L (15-37) Alanine Aminotransferase (ALT/SGPT) 13 U/L (12-78) Alkaline Phosphatase 59 U/L (46-116) Total Protein 6.9 G/DL (6.4-8.2) Albumin 1.5 G/DL (3.4-5.0) L Globulin 5.4 g/dL Albumin/Globulin Ratio 0.3 (1.0-2.7) L Risk Assessment & Plan Assessment: [email or web address] Plan: mac Status Change Before Surgery: No Pre-Antibiotics Drug: Yamilet Padron MD Dec 10, 2017 08:30
--- NOTE | 2017-12-10 08:38 | Pulmonology Progress Note ---
Assessment/Plan Problems: (1) Chronic respiratory failure with hypercapnia (2) HCAP (healthcare-associated pneumonia) (3) Respiratory distress (4) Feeding by G-tube (5) Encephalopathy due to infection (6) CKD (chronic kidney disease) (7) CVA (cerebral vascular accident) (8) Anemia Assessment/Plan -Optimize pulmonary function/mobilize as tolerated -Titrate down FiO2 to keep SaO2 > 90% -BiPAP PRN and QHS - NEDS TO USE AT NIGHT -RTC and PRN HHN's + CPT -Abx per ID -Monitor volumes and renal function, replete free water -Monitor H/H, transfuse as needed, F/U GI recs, [facility] GI suite today -GTF's as tolerated when off BiPAP -DVT Px: Hep SQ -DNAR/DNI -D/W family, tracheostomy not with goals of care Subjective Allergies: Coded Allergies: No Known Allergies (Verified , 01/02/09) Subjective Events reviewed AFVSS, RA - 2L, was not on BiPAP O/N Was going to be D/C'd but Hb 6.4, now S/P PRBC and [facility] GI suite less cough and congestion, no F/C Objective Last 24 Hour Vital Signs Date Time Temp Pulse Resp B/P (MAP) Pulse Ox O2 Delivery O2 Flow Rate FiO2 12/10/17 07:37 63 18 96 Nasal Cannula 1.0 24 12/10/17 04:00 68 18 95 Nasal Cannula 1.0 24 12/10/17 04:00 72 20 98 Nasal Cannula 1.0 24 12/10/17 04:00 67 12/10/17 04:00 Nasal Cannula 2.0 Nasal Cannula 2.0 12/10/17 04:00 97.9 82 16 135/84 (101) 99 97.9 12/10/17 03:00 98.1 69 18 141/78 (99) 99 98.1 12/10/17 01:05 98.6 72 18 138/79 (98) 97 98.6 12/10/17 00:30 98.3 73 16 132/68 (89) 99 98.3 12/10/17 00:00 98.1 64 18 136/78 (97) 98 98.1 12/10/17 00:00 Nasal Cannula 2.0 Nasal Cannula 2.0 12/10/17 00:00 67 12/09/17 23:32 68 20 100 Nasal Cannula 1.0 24 12/09/17 23:32 65 18 98 Nasal Cannula 1.0 12/09/17 22:45 98.2 71 16 129/64 (85) 99 98.2 12/09/17 22:30 98.2 68 16 136/69 (91) 98 98.2 12/09/17 21:24 69 142/85 12/09/17 20:00 67 12/09/17 20:00 66 20 98 Nasal Cannula 2.0 12/09/17 20:00 Nasal Cannula 2.0 Nasal Cannula 2.0 12/09/17 20:00 98.1 65 16 139/67 (91) 100 98.1 12/09/17 20:00 67 18 95 Nasal Cannula 2.0 28 12/09/17 19:30 66 16 97 Nasal Cannula 1.0 24 12/09/17 19:30 70 18 100 Nasal Cannula 1.0 12/09/17 17:13 95.0 67 18 150/84 (106) 100 95.0 12/09/17 17:08 67 150/84 12/09/17 16:00 98.0 65 18 140/50 (80) 100 98.0 12/09/17 16:00 Nasal Cannula 2.0 Nasal Cannula 2.0 12/09/17 16:00 71 12/09/17 14:45 Nasal Cannula 12/09/17 14:45 Nasal Cannula 12/09/17 12:20 Nasal Cannula 2.0 Nasal Cannula 2.0 12/09/17 12:09 62 20 100 Nasal Cannula 2.0 12/09/17 12:00 97.3 66 18 134/52 (79) 100 97.3 12/09/17 11:58 65 18 96 Nasal Cannula 2.0 28 12/09/17 11:41 67 12/09/17 09:23 66 20 99 Nasal Cannula 2.0 28 12/09/17 09:19 67 135/69 12/09/17 09:18 67 135/69 12/09/17 09:17 135/69 12/09/17 09:05 67 20 95 Nasal Cannula 2.0 28 Intake and Output 12/09/17 12/10/17 19:00 07:00 Intake Total 2050 ml 820 ml Output Total 725 ml Balance 2050 ml 95 ml Intake Free Water 60 ml 150 ml IV Total 1510 ml 460 ml Tube Feeding 480 ml 210 ml Output Urine Total 725 ml # Bowel Movements 1 General Appearance: no acute distress, cachetic HEENT: normocephalic, atraumatic, anicteric, mucous membranes moist Respiratory/Chest: chest wall non-tender, rhonchi Cardiovascular: normal peripheral pulses, normal rate, regular rhythm Abdomen: normal bowel sounds, soft, non tender, no organomegaly, non distended , no mass, other - GT Extremities: no cyanosis, no clubbing, no edema Laboratory Tests 12/09/17 18:30: Stool Occult Blood [Pending] 12/09/17 20:20: White Blood Count 10.6, Red Blood Count 2.40L, Hemoglobin 6.4*L, Hematocrit 20.2L, Mean Corpuscular Volume 84, Mean Corpuscular Hemoglobin 26.7L, Mean Corpuscular Hemoglobin Concent 31.8L, Red Cell Distribution Width 17.2H, Platelet Count 216, Mean Platelet Volume 6.1L, Neutrophils (%) (Auto) , Lymphocytes (%) (Auto) , Monocytes (%) (Auto) , Eosinophils (%) (Auto) , Basophils (%) (Auto) , Differential Total Cells Counted 100, Neutrophils % ( Manual) 62, Lymphocytes % (Manual) 29, Monocytes % (Manual) 5, Eosinophils % ( Manual) 3, Basophils % (Manual) 1, Band Neutrophils 0, Platelet Estimate Adequate, Platelet Morphology Normal, Hypochromasia 1+, Anisocytosis 1+ 12/10/17 03:59: White Blood Count 11.2H, Red Blood Count 3.43L, Hemoglobin 9.1#L, Hematocrit 29.3#L, Mean Corpuscular Volume 85, Mean Corpuscular Hemoglobin 26.6L, Mean Corpuscular Hemoglobin Concent 31.1L, Red Cell Distribution Width 16.4H, Platelet Count 253, Mean Platelet Volume 6.6, Neutrophils (%) (Auto) 54.2, Lymphocytes (%) (Auto) 33.2, Monocytes (%) (Auto) 4.9, Eosinophils (%) (Auto) 7.2H, Basophils (%) (Auto) 0.5 12/10/17 07:40: Prothrombin Time 11.8H, Prothromb Time International Ratio 1.1, Activated Partial Thromboplast Time 32 Current Medications Medications (Trade) Dose Ordered Sig/Keira Route PRN Reason Start Time Stop Time Status Last Admin Dose Admin Acetaminophen (Tylenol) 650 mg Q6H PRN ORAL Mild Pain/Temp > 101 12/05/17 20:15 01/04/18 20:14 12/06/17 01:56 Al Hydroxide/Mg Hydroxide (Mylanta) 15 ml Q1H PRN ORAL gi upset 12/10/17 08:15 12/10/17 16:30 Albuterol/ Ipratropium (Albuterol/ Ipratropium) 3 ml Q4HRT HHN 12/05/17 23:00 12/10/17 22:59 12/10/17 07:39 Allopurinol (Zyloprim) 200 mg DAILY ORAL 12/08/17 09:00 01/07/18 08:59 12/09/17 09:17 Amlodipine Besylate (Norvasc) 5 mg BID GT 12/06/17 09:00 01/05/18 08:59 12/09/17 17:08 Atropine Sulfate (Atropine) 0.5 mg Q5M PRN IV bpm less than 45 12/10/17 08:15 12/10/17 16:30 Bisacodyl (Dulcolax) 10 mg DAILYPRN PRN RECTAL Constipation 12/05/17 21:15 01/04/18 21:14 Carvedilol (Coreg) 25 mg Q12HR ORAL 12/08/17 09:00 01/07/18 08:59 12/09/17 21:24 Colistimethate Sodium (Colistin *inhalation use only*) 75 mg Q12HR@10,22 INH 12/05/17 22:00 12/12/17 21:59 12/09/17 23:29 Dextrose 1,000 ml @ 100 mls/hr Q10H IV 12/07/17 12:00 01/05/18 11:59 12/09/17 12:41 Dextrose (Dextrose 50%) 25 ml STAT PRN IV Hypoglycemia 12/06/17 09:00 01/05/18 08:59 Dextrose (Dextrose 50%) 50 ml STAT PRN IV Hypoglycemia 12/06/17 09:00 01/05/18 08:59 Diphenhydramine HCl (Benadryl) 25 mg Q15M PRN IVP Itching 12/10/17 08:15 12/10/17 16:30 Docusate Sodium (Colace) 100 mg TID GT 12/06/17 13:00 01/05/18 08:59 12/09/17 12:40 Fentanyl Citrate (Sublimaze 100 mcg/2 mL) 25 mcg Q10M PRN IV Moderate Pain (Pain Scale 4-6) 12/10/17 08:15 12/10/17 16:30 Hydralazine HCl (Apresoline) 25 mg Q4H PRN ORAL systolic >160 12/06/17 12:45 01/05/18 12:44 12/08/17 05:42 Insulin Aspart (NovoLOG) EVERY 6 HOURS SUBQ 12/06/17 12:00 01/05/18 11:59 12/09/17 12:42 Labetalol HCl (Normodyne) 5 mg Q10M PRN IV SBP>160 / DBP>90 12/10/17 08:15 12/10/17 16:30 Meropenem 500 mg/ Sodium Chloride 55 ml @ 110 mls/hr EVERY 12 HOURS IVPB 12/05/17 21:00 12/10/17 20:59 12/09/17 21:24 Midazolam HCl (Versed 2mg/2ml vial) 1 mg Q15M PRN IVP For Anxiety 12/10/17 08:15 12/10/17 16:30 Nitroglycerin (Ntg) 1 patch DAILY TDERMAL 12/06/17 13:00 01/05/18 12:59 12/09/17 09:17 Ondansetron HCl (Zofran) 4 mg Q1H PRN IVP Nausea & Vomiting 12/10/17 08:15 12/10/17 16:30 Ondansetron HCl (Zofran) 4 mg Q4HR PRN IVP Nausea & Vomiting 12/05/17 20:15 01/04/18 20:14 Pantoprazole (Protonix) 40 mg EVERY 12 HOURS IVP 12/09/17 21:00 01/08/18 20:59 12/09/17 21:23 Sodium Chloride 1,000 ml @ 10 mls/hr Q24H IVLG 12/10/17 08:13 12/10/17 10:12 Zinc Sulfate (Zinc Sulfate) 220 mg DAILY NG 12/06/17 09:00 01/05/18 08:59 12/09/17 09:17 Sagar Melvin MD Dec 10, 2017 08:38
[2017-12-10] MEDS: Zinc Sulfate 220mg cap NG SCH (09:00)
[2017-12-10] MEDS: Docusate 100mg/10ml Liq GT SCH ×3 (09:00→17:20)
[2017-12-10] MEDS: Allopurinol 100mg Tab ORAL SCH (09:00)
[2017-12-10] MEDS: Carvedilol 25mg Tab ORAL SCH (09:51)
[2017-12-10] MEDS: Meropenem 500 MG in NS 55 ML IVPB SCH (09:52)
[2017-12-10] MEDS: Pantoprazole Inj IVP SCH (09:52)
[2017-12-10] MEDS: Nitroglycerin Patch 0.4mg TDERMAL SCH (10:06)
--- NOTE | 2017-12-10 10:24 | Nephrology Progress Note ---
Assessment/Plan Problem List: (1) CKD (chronic kidney disease) (2) Acute respiratory failure (3) Acute encephalopathy (4) UTI (urinary tract infection) (5) Anemia Assessment 1) Acute respiratory failure, Pneumonia and UTI (2) ATN (acute tubular necrosis), with underlying CKD (3) Anemia (4) UTI (urinary tract infection) (5) DNR (do not resuscitate) (6) Acute Encephalopathy, s/p Multiple strokes (7) PEG (8) HyperGlycemia Plan Transfused 12/09 Pulm support Hydrate as possible - BS control K supplement avoid nephrotoxics Monitor renal parameters Hemodynamic support urine studies Per orders Subjective ROS Limited/Unobtainable: No Constitutional: Reports: malaise Objective Objective Last 24 Hour Vital Signs Date Time Temp Pulse Resp B/P (MAP) Pulse Ox O2 Delivery O2 Flow Rate FiO2 12/10/17 10:06 154/80 12/10/17 09:52 62 154/80 12/10/17 09:51 62 154/80 12/10/17 08:00 62 12/10/17 08:00 97.7 65 20 154/80 (104) 98 97.7 12/10/17 08:00 Nasal Cannula 2.0 Nasal Cannula 2.0 12/10/17 07:48 69 18 98 Nasal Cannula 1.0 24 12/10/17 07:37 63 18 96 Nasal Cannula 1.0 24 12/10/17 04:00 68 18 95 Nasal Cannula 1.0 24 12/10/17 04:00 72 20 98 Nasal Cannula 1.0 24 12/10/17 04:00 67 12/10/17 04:00 Nasal Cannula 2.0 Nasal Cannula 2.0 12/10/17 04:00 97.9 82 16 135/84 (101) 99 97.9 12/10/17 03:00 98.1 69 18 141/78 (99) 99 98.1 12/10/17 01:05 98.6 72 18 138/79 (98) 97 98.6 12/10/17 00:30 98.3 73 16 132/68 (89) 99 98.3 12/10/17 00:00 98.1 64 18 136/78 (97) 98 98.1 12/10/17 00:00 Nasal Cannula 2.0 Nasal Cannula 2.0 12/10/17 00:00 67 12/09/17 23:32 68 20 100 Nasal Cannula 1.0 24 12/09/17 23:32 65 18 98 Nasal Cannula 1.0 12/09/17 22:45 98.2 71 16 129/64 (85) 99 98.2 12/09/17 22:30 98.2 68 16 136/69 (91) 98 98.2 12/09/17 21:24 69 142/85 12/09/17 20:00 67 12/09/17 20:00 66 20 98 Nasal Cannula 2.0 12/09/17 20:00 Nasal Cannula 2.0 Nasal Cannula 2.0 12/09/17 20:00 98.1 65 16 139/67 (91) 100 98.1 12/09/17 20:00 67 18 95 Nasal Cannula 2.0 12/09/17 19:30 66 16 97 Nasal Cannula 1.0 12/09/17 19:30 70 18 100 Nasal Cannula 1.0 12/09/17 17:13 95.0 67 18 150/84 (106) 100 95.0 12/09/17 17:08 67 150/84 12/09/17 16:00 98.0 65 18 140/50 (80) 100 98.0 12/09/17 16:00 Nasal Cannula 2.0 Nasal Cannula 2.0 12/09/17 16:00 71 12/09/17 14:45 Nasal Cannula 12/09/17 14:45 Nasal Cannula 12/09/17 12:20 Nasal Cannula 2.0 Nasal Cannula 2.0 12/09/17 12:09 62 20 100 Nasal Cannula 2.0 12/09/17 12:00 97.3 66 18 134/52 (79) 100 97.3 12/09/17 11:58 65 18 96 Nasal Cannula 2.0 12/09/17 11:41 67 Intake and Output 12/09/17 12/10/17 19:00 07:00 Intake Total 2050 ml 820 ml Output Total 725 ml Balance 2050 ml 95 ml Intake Free Water 60 ml 150 ml IV Total 1510 ml 460 ml Tube Feeding 480 ml 210 ml Output Urine Total 725 ml # Bowel Movements 1 Laboratory Tests 12/09/17 18:30: Stool Occult Blood [Pending] 12/09/17 20:20: White Blood Count 10.6, Red Blood Count 2.40L, Hemoglobin 6.4*L, Hematocrit 20.2L, Mean Corpuscular Volume 84, Mean Corpuscular Hemoglobin 26.7L, Mean Corpuscular Hemoglobin Concent 31.8L, Red Cell Distribution Width 17.2H, Platelet Count 216, Mean Platelet Volume 6.1L, Neutrophils (%) (Auto) , Lymphocytes (%) (Auto) , Monocytes (%) (Auto) , Eosinophils (%) (Auto) , Basophils (%) (Auto) , Differential Total Cells Counted 100, Neutrophils % ( Manual) 62, Lymphocytes % (Manual) 29, Monocytes % (Manual) 5, Eosinophils % ( Manual) 3, Basophils % (Manual) 1, Band Neutrophils 0, Platelet Estimate Adequate, Platelet Morphology Normal, Hypochromasia 1+, Anisocytosis 1+ 12/10/17 03:59: White Blood Count 11.2H, Red Blood Count 3.43L, Hemoglobin 9.1#L, Hematocrit 29.3#L, Mean Corpuscular Volume 85, Mean Corpuscular Hemoglobin 26.6L, Mean Corpuscular Hemoglobin Concent 31.1L, Red Cell Distribution Width 16.4H, Platelet Count 253, Mean Platelet Volume 6.6, Neutrophils (%) (Auto) 54.2, Lymphocytes (%) (Auto) 33.2, Monocytes (%) (Auto) 4.9, Eosinophils (%) (Auto) 7.2H, Basophils (%) (Auto) 0.5 12/10/17 07:40: Prothrombin Time 11.8H, Prothromb Time International Ratio 1.1, Activated Partial Thromboplast Time 32 Height (Feet): 6 Height (Inches): 0.00 Weight (Pounds): 185 General Appearance: no apparent distress Respiratory/Chest: decreased breath sounds Abdomen: soft, distended Mukul Duarte MD Dec 10, 2017 10:24
--- NOTE | 2017-12-10 10:30 | Infectious Diseases Prog Note ---
Assessment/Plan Assessment/Plan A; Sepsis Recent pneumonia Hypercapnic respiratory failure Hypernatremia Chronic renal failure Anemia s/p transfusion Advanced dementia GI bleeding P; Continue Colistin & Meropenem X 1 day will f/u EGD Subjective ROS Limited/Unobtainable: Yes Gastrointestinal/Abdominal: Reports: blood in stool Allergies: Coded Allergies: No Known Allergies (Verified , 01/02/09) Objective Vital Signs Last 24 Hour Vital Signs Date Time Temp Pulse Resp B/P (MAP) Pulse Ox O2 Delivery O2 Flow Rate FiO2 12/10/17 10:06 154/80 12/10/17 09:52 62 154/80 12/10/17 09:51 62 154/80 12/10/17 08:00 62 12/10/17 08:00 97.7 65 20 154/80 (104) 98 97.7 12/10/17 08:00 Nasal Cannula 2.0 Nasal Cannula 2.0 12/10/17 07:48 69 18 98 Nasal Cannula 1.0 24 12/10/17 07:37 63 18 96 Nasal Cannula 1.0 24 12/10/17 04:00 68 18 95 Nasal Cannula 1.0 24 12/10/17 04:00 72 20 98 Nasal Cannula 1.0 24 12/10/17 04:00 67 12/10/17 04:00 Nasal Cannula 2.0 Nasal Cannula 2.0 12/10/17 04:00 97.9 82 16 135/84 (101) 99 97.9 12/10/17 03:00 98.1 69 18 141/78 (99) 99 98.1 12/10/17 01:05 98.6 72 18 138/79 (98) 97 98.6 12/10/17 00:30 98.3 73 16 132/68 (89) 99 98.3 12/10/17 00:00 98.1 64 18 136/78 (97) 98 98.1 12/10/17 00:00 Nasal Cannula 2.0 Nasal Cannula 2.0 12/10/17 00:00 67 12/09/17 23:32 68 20 100 Nasal Cannula 1.0 24 12/09/17 23:32 65 18 98 Nasal Cannula 1.0 24 12/09/17 22:45 98.2 71 16 129/64 (85) 99 98.2 12/09/17 22:30 98.2 68 16 136/69 (91) 98 98.2 12/09/17 21:24 69 142/85 12/09/17 20:00 67 12/09/17 20:00 66 20 98 Nasal Cannula 2.0 12/09/17 20:00 Nasal Cannula 2.0 Nasal Cannula 2.0 12/09/17 20:00 98.1 65 16 139/67 (91) 100 98.1 12/09/17 20:00 67 18 95 Nasal Cannula 2.0 28 12/09/17 19:30 66 16 97 Nasal Cannula 1.0 24 12/09/17 19:30 70 18 100 Nasal Cannula 1.0 12/09/17 17:13 95.0 67 18 150/84 (106) 100 95.0 12/09/17 17:08 67 150/84 12/09/17 16:00 98.0 65 18 140/50 (80) 100 98.0 12/09/17 16:00 Nasal Cannula 2.0 Nasal Cannula 2.0 12/09/17 16:00 71 12/09/17 14:45 Nasal Cannula 12/09/17 14:45 Nasal Cannula 12/09/17 12:20 Nasal Cannula 2.0 Nasal Cannula 2.0 12/09/17 12:09 62 20 100 Nasal Cannula 2.0 12/09/17 12:00 97.3 66 18 134/52 (79) 100 97.3 12/09/17 11:58 65 18 96 Nasal Cannula 2.0 12/09/17 11:41 67 Height (Feet): 6 Height (Inches): 0.00 Weight (Pounds): 185 General Appearance: no acute distress HEENT: mucous membranes moist Respiratory/Chest: lungs clear Cardiovascular: normal rate Abdomen: soft, non tender, other - GT in place Extremities: no edema Neurologic/Psychiatric: aphasia Laboratory Tests Test 12/09/17 18:30 12/09/17 20:20 12/10/17 03:59 12/10/17 07:40 Stool Occult Blood Positive (NEGATIVE) White Blood Count 10.6 K/UL (4.8-10.8) 11.2 K/UL (4.8-10.8) H Red Blood Count 2.40 M/UL (4.70-6.10) L 3.43 M/UL (4.70-6.10) L Hemoglobin 6.4 G/DL (14.2-18.0) *L 9.1 G/DL (14.2-18.0) #L Hematocrit 20.2 % (42.0-52.0) L 29.3 % (42.0-52.0) #L Mean Corpuscular Volume 84 FL (80-99) 85 FL (80-99) Mean Corpuscular Hemoglobin 26.7 PG (27.0-31.0) L 26.6 PG (27.0-31.0) L Mean Corpuscular Hemoglobin Concent 31.8 G/DL (32.0-36.0) L 31.1 G/DL (32.0-36.0) L Red Cell Distribution Width 17.2 % (11.6-14.8) H 16.4 % (11.6-14.8) H Platelet Count 216 K/UL (150-450) 253 K/UL (150-450) Mean Platelet Volume 6.1 FL (6.5-10.1) L 6.6 FL (6.5-10.1) Neutrophils (%) (Auto) % (45.0-75.0) 54.2 % (45.0-75.0) Lymphocytes (%) (Auto) % (20.0-45.0) 33.2 % (20.0-45.0) Monocytes (%) (Auto) % (1.0-10.0) 4.9 % (1.0-10.0) Eosinophils (%) (Auto) % (0.0-3.0) 7.2 % (0.0-3.0) H Basophils (%) (Auto) % (0.0-2.0) 0.5 % (0.0-2.0) Differential Total Cells Counted 100 Neutrophils % (Manual) 62 % (45-75) Lymphocytes % (Manual) 29 % (20-45) Monocytes % (Manual) 5 % (1-10) Eosinophils % (Manual) 3 % (0-3) Basophils % (Manual) 1 % (0-2) Band Neutrophils 0 % (0-8) Platelet Estimate Adequate Platelet Morphology Normal Hypochromasia 1+ Anisocytosis 1+ Prothrombin Time 11.8 SEC (9.30-11.50) H Prothromb Time International Ratio 1.1 (0.9-1.1) Activated Partial Thromboplast Time 32 SEC (23-33) Current Medications Medications (Trade) Dose Ordered Sig/Keira Route PRN Reason Start Time Stop Time Status Last Admin Dose Admin Acetaminophen (Tylenol) 650 mg Q6H PRN ORAL Mild Pain/Temp > 101 12/05/17 20:15 01/04/18 20:14 12/06/17 01:56 Al Hydroxide/Mg Hydroxide (Mylanta) 15 ml Q1H PRN ORAL gi upset 12/10/17 08:15 12/10/17 16:30 Albuterol/ Ipratropium (Albuterol/ Ipratropium) 3 ml Q4HRT HHN 12/05/17 23:00 12/10/17 22:59 12/10/17 07:39 Allopurinol (Zyloprim) 200 mg DAILY ORAL 12/08/17 09:00 01/07/18 08:59 12/09/17 09:17 Amlodipine Besylate (Norvasc) 5 mg BID GT 12/06/17 09:00 01/05/18 08:59 12/10/17 09:52 Atropine Sulfate (Atropine) 0.5 mg Q5M PRN IV bpm less than 45 12/10/17 08:15 12/10/17 16:30 Bisacodyl (Dulcolax) 10 mg DAILYPRN PRN RECTAL Constipation 12/05/17 21:15 01/04/18 21:14 Carvedilol (Coreg) 25 mg Q12HR ORAL 12/08/17 09:00 01/07/18 08:59 12/10/17 09:51 Colistimethate Sodium (Colistin *inhalation use only*) 75 mg Q12HR@10,22 INH 12/05/17 22:00 12/12/17 21:59 12/09/17 23:29 Dextrose 1,000 ml @ 100 mls/hr Q10H IV 12/07/17 12:00 01/05/18 11:59 12/10/17 09:45 Dextrose (Dextrose 50%) 25 ml STAT PRN IV Hypoglycemia 12/06/17 09:00 01/05/18 08:59 Dextrose (Dextrose 50%) 50 ml STAT PRN IV Hypoglycemia 12/06/17 09:00 01/05/18 08:59 Diphenhydramine HCl (Benadryl) 25 mg Q15M PRN IVP Itching 12/10/17 08:15 12/10/17 16:30 Docusate Sodium (Colace) 100 mg TID GT 12/06/17 13:00 01/05/18 08:59 12/09/17 12:40 Fentanyl Citrate (Sublimaze 100 mcg/2 mL) 25 mcg Q10M PRN IV Moderate Pain (Pain Scale 4-6) 12/10/17 08:15 12/10/17 16:30 Hydralazine HCl (Apresoline) 25 mg Q4H PRN ORAL systolic >160 12/06/17 12:45 01/05/18 12:44 12/08/17 05:42 Insulin Aspart (NovoLOG) EVERY 6 HOURS SUBQ 12/06/17 12:00 01/05/18 11:59 12/09/17 12:42 Labetalol HCl (Normodyne) 5 mg Q10M PRN IV SBP>160 / DBP>90 12/10/17 08:15 12/10/17 16:30 Meropenem 500 mg/ Sodium Chloride 55 ml @ 110 mls/hr EVERY 12 HOURS IVPB 12/05/17 21:00 12/10/17 20:59 12/10/17 09:52 Midazolam HCl (Versed 2mg/2ml vial) 1 mg Q15M PRN IVP For Anxiety 12/10/17 08:15 12/10/17 16:30 Nitroglycerin (Ntg) 1 patch DAILY TDERMAL 12/06/17 13:00 01/05/18 12:59 12/10/17 10:06 Ondansetron HCl (Zofran) 4 mg Q1H PRN IVP Nausea & Vomiting 12/10/17 08:15 12/10/17 16:30 Ondansetron HCl (Zofran) 4 mg Q4HR PRN IVP Nausea & Vomiting 12/05/17 20:15 01/04/18 20:14 Pantoprazole (Protonix) 40 mg EVERY 12 HOURS IVP 12/09/17 21:00 01/08/18 20:59 12/10/17 09:52 Zinc Sulfate (Zinc Sulfate) 220 mg DAILY NG 12/06/17 09:00 8/20/18 08:59 12/09/17 09:17 Donnell Murray MD Dec 10, 2017 10:30
[2017-12-10] MEDS: Colistin for inhalation INH SCH (10:47)
[2017-12-10] MEDS ORDERED: ePHEDrine 50mg/ml Inj ONE (11:00)
[2017-12-10] MEDS ORDERED: Propofol 200mg/20ml IV ONE (11:00)
[2017-12-10] MEDS ORDERED: Lidocaine 1% MPF 10mg/ml 5ml ONE (11:00)
--- NOTE | 2017-12-10 11:00 | Pre-Procedure Note/Attestation ---
Pre-Procedure Note/Attestation Complete Prior to Procedure Planned Procedure: not applicable Procedure Narrative: egd Indications for Procedure Pre-Operative Diagnosis: gib Attestation I attest that I discussed the nature of the procedure; its benefits; risks and complications; and alternatives (and the risks and benefits of such alternatives ), prior to the procedure, with the patient (or the patient's legal automotive leasing sales representative). I attest that, if there was a reasonable possibility of needing a blood transfusion, the patient (or the patient's legal automotive leasing sales representative) was given the [facility] standardized written summary, pursuant to the Deejay Merly Blood Safety Act ([place] Health and Safety Code # 1645, as amended). I attest that I re-evaluated the patient just prior to the surgery and that there has been no change in the patient's H&P, except as documented below: Villa Taveras MD Dec 10, 2017 11:00
--- NOTE | 2017-12-10 11:30 | Endoscopy Procedure Note ---
Endoscopy Procedure Note General Indication for Procedure: gib Procedures Performed: EGD Operative Findings/Diagnosis: gastritis Specimen: yes Pt Tolerated Procedure Well: Yes Estimated Blood Loss: none Anesthesia Anesthesiologist: mike Anesthesia: MAC Inserted Devices Implant(s) used?: No GI Core Measures 50 yrs or older w/o bx or poly: Not Applicable 10yrs. F/U not recommended: Not Applicable Villa Taveras MD Dec 10, 2017 11:30
--- NOTE | 2017-12-10 13:00 | Procedure Note ---
DATE OF PROCEDURE: 12/10/2017 SURGEON: Villa Taveras M.D. ANESTHESIOLOGIST: Dr. Price. REFERRING PHYSICIAN: Cesario Brewster M.D. PROCEDURE: Upper endoscopy with biopsy. ANESTHESIA: Per Dr. Price. INSTRUMENT: Olympus adult flexible upper endoscope. INDICATION: Upper GI bleeding. The procedure, risks, benefits, and possible consequences, including hemorrhage, aspiration, perforation and infection, and alternative treatments, were explained to the patient/legal guardian by Dr. Villa Taveras and the patient/legal guardian understood and accepted these risks. DESCRIPTION OF PROCEDURE: After informed consent was obtained and the patient was adequately sedated, Olympus upper endoscope was advanced from the mouth into the second portion of duodenum and retroflexion was performed in the stomach. The patient had a G-tube in place. We actually pushed the G-tube inside to see if there was any bleeding from the G-tube site, but there was none. Then, the scope was advanced to the second portion of the duodenum. There was a shallow duodenal ulcer, unlikely to be the source of bleeding. At this time, we pulled the scope back into the stomach and random biopsy from antrum was obtained. The scope was retrieved and procedure was terminated. SUMMARY OF FINDINGS: 1. A shallow duodenal ulcer, unlikely to be the source of bleeding. 2. Gastritis, status post biopsy. 3. G-tube in place without any obvious ulceration beneath it. RECOMMENDATIONS: Monitor hemoglobin and hematocrit. Transfuse as needed. Resume tube feeding. If the patient shows signs and symptoms of active GI bleeding, we will recommend colonoscopy. I want to thank Dr. Brewster for this kind referral. Villa Taveras M.D. DR: J Luis JOB#: [id number] CC: Cesario Brewster M.D.
--- NOTE | 2017-12-10 13:16 | Immediate Post-Op Evaluation ---
Immediate Post-Op Evalulation Immediate Post-Op Evalulation Procedure: egd w/bx Date of Evaluation: Dec 10, 2017 Time of Evaluation: 11:59 IV Fluids: 450ml 0.9ns Blood Products: none Estimated Blood Loss: negligible Blood Pressure Systolic: 91 Blood Pressure Diastolic: 55 Pulse Rate: 63 Respiratory Rate: 18 O2 Sat by Pulse Oximetry: 98 Temperature (Fahrenheit): 97.1 Pain Score (1-10): 0 Nausea: No Vomiting: No Complications none Patient Status: awake, reacts, patent Hydration Status: adequate Drug: Yamilet Padron MD Dec 10, 2017 13:16
--- NOTE | 2017-12-10 13:17 | 48 Hour Post Anesthesia Eval ---
Post Anesthesia Evaluation Procedure: egd w/bx Date of Evaluation: Dec 10, 2017 Time of Evaluation: 12:01 Blood Pressure Systolic: 111 0: 61 Pulse Rate: 66 Respiratory Rate: 18 Temperature (Fahrenheit): 97.1 O2 Sat by Pulse Oximetry: 98 Airway: patent Nausea: No Vomiting: No Pain Intensity: 0 Hydration Status: adequate Cardiopulmonary Status: stable Mental Status/LOC: patient returned to baseline Post-Anesthesia Complications: none Follow-up care needed: N/A Yamilet Almanzar MD Dec 10, 2017 13:17
--- NOTE | 2017-12-11 07:35 | Discharge Summary ---
Discharge Summary Discharge Summary _ DATE OF ADMISSION: 12/05/2017 DATE OF DISCHARGE: 12/10/2017 CONSULTANTS: Dr. 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 Patient was noted to have hypoxemia and O2 saturation in the 80s at the SNF. Paramedics were called and patient was taken to [facility]. He is DO NOT RESUSCITATE. On arrival to ED, ABG showed CO2 retention. Patient was placed on BiPAP. Chest x-ray done showed bilateral interstitial and airspace edema. Blood work showed leukocytosis, WBC of 17. Troponin was slightly elevated to 0.3 and BNP was 12,822. He was given IV Lasix and was started empirically on IV vancomycin and cefepime. He was then admitted to [facility] for evaluation of acute respiratory failure and CHF exacerbation. He was continued on BiPAP support. He had a history of MDR Acinetobacter; he was seen by infectious disease specialist and antibiotics were switched to inhaled colistin and meropenem. Troponin was slightly elevated, troponins were monitored. Tropponins downtrended. Elevated troponin likely due to demand ischemia. On telemetry, patient was in sinus rhythm with no acute changes. EKG showed left bundle branch block. He had elevated blood pressure, Coreg was increased to 25 mg twice a day, he was given amlodipine 5 mg twice a day and prn hydralazine. He was eventually taken off Bipap support. Sodium was elevated to 158, he was followed by a product development assistant. He was given free water. There was a drop in hemoglobin. He was given 2 units packed RBC blood transfusion. Repeat hemoglobin check showed further drop to 6.4. On 12/10/2017 , he underwent upper endoscopy by Dr. Villa Taveras. Findings showed a duodenal ulcer, however, unlikely to be the source of bleeding. There was presence of gastritis; G-tube was in place without any obvious ulceration. He was then resumed on G-tube feeding and if with continued signs and symptoms of active bleed, may eventually need colonoscopy. He came in with multiple decubitus ulcer. Wound culture showed growth of Klebsiella, MDR Acinetobacter, Proteus and enterococcus. He was given wound care. Was eventually discharged back to [facility]. 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 I have been assigned to dictate discharge summary on this account, and I was not involved in the patient's management. Christiane Rey NP Dec 11, 2017 07:35
== END 2017-12-10 18:45 | DRG 189 ==
LOC: EDBD 14:44 → EMR 15:16 → EDBEDREQ 15:23 → 2W 15:30 → EDBEDREQ 16:01 → 2W 20:13
DX: J96.02 Acute respiratory failure with hypercapnia (principal); N17.0 Acute kidney failure with tubular necrosis; G93.40 Encephalopathy, unspecified; I50.33 Acute on chronic diastolic (congestive) heart failure; G92 Toxic encephalopathy; E43 Unspecified severe protein-calorie malnutrition; J18.9 Pneumonia, unspecified organism; Z43.1 Encounter for attention to gastrostomy; I13.0 Hypertensive heart and chronic kidney disease with heart failure and stage 1 through stage 4 chronic kidney disease, or unspecified chronic kidney disease; E87.0 Hyperosmolality and hypernatremia; I69.351 Hemiplegia and hemiparesis following cerebral infarction affecting right dominant side; K92.2 Gastrointestinal hemorrhage, unspecified; N39.0 Urinary tract infection, site not specified; J96.01 Acute respiratory failure with hypoxia; Z66 Do not resuscitate; E86.0 Dehydration; L89.109 Pressure ulcer of unspecified part of back, unspecified stage; I25.10 Atherosclerotic heart disease of native coronary artery without angina pectoris; Z95.1 Presence of aortocoronary bypass graft; Z95.4 Presence of other heart-valve replacement; N18.9 Chronic kidney disease, unspecified; I69.391 Dysphagia following cerebral infarction; R13.10 Dysphagia, unspecified; Y95 Nosocomial condition; I44.7 Left bundle-branch block, unspecified; D64.9 Anemia, unspecified; K26.9 Duodenal ulcer, unspecified as acute or chronic, without hemorrhage or perforation; K29.70 Gastritis, unspecified, without bleeding; Z79.02 Long term (current) use of antithrombotics/antiplatelets; Z79.4 Long term (current) use of insulin; F03.90 Unspecified dementia, unspecified severity, without behavioral disturbance, psychotic disturbance, mood disturbance, and anxiety; B96.1 Klebsiella pneumoniae [K. pneumoniae] as the cause of diseases classified elsewhere; B96.89 Other specified bacterial agents as the cause of diseases classified elsewhere; B96.4 Proteus (mirabilis) (morganii) as the cause of diseases classified elsewhere; B95.2 Enterococcus as the cause of diseases classified elsewhere; Z16.24 Resistance to multiple antibiotics
CPT/HCPCS: 36415; 36600; 71045; 80053; 80061; 81003; 82270; 82550; 82553; 82803; 82962; 82977; 83605; 83690; 83735; 83880; 84100; 84443; 84484; 84550; 85007; 85025; 85610; 85730; 86140; 86850; 86900; 86901; 86920; 87040; 87070; 87181; 87205; 93005; 94003; 94150; 94640; 94660; 94664; 99291; J1815; J7620; J8499